=== PATIENT | female | born 1980 | race Caucasian/White ===

== ENCOUNTER → 2020-12-11 15:49 | Outpatient (BNVA) | payer MEDICARE, SELFPAY | PROVIDERS: Family Provider Internal Medicine; PCP Internal Medicine; Visit Provider Internal Medicine | DX: E28.2 Polycystic ovarian syndrome (principal); E78.1 Pure hyperglyceridemia; F70 Mild intellectual disabilities; F41.1 Generalized anxiety disorder; I10 Essential (primary) hypertension | CPT/HCPCS: 80053; 80061; 83036; 83721; 84443 ==

== ENCOUNTER 2021-04-18 21:35 | Inpatient (IN) | payer MEDICARE, MEDICAID, SELFPAY ==
[2021-04-18 21:47] VITALS: PULSE 121; RESP 30; TEMP 36.5; O2SAT 98
--- NOTE | 2021-04-18 22:05 | ECG_ITS ---
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
--- NOTE | 2021-04-18 22:05 | XRR_ITS ---
PROCEDURE INFORMATION: Exam: XR Chest Exam date and time: 04/18/2021 10:05 PM Age: 40 years old Clinical indication: Tachypnea TECHNIQUE: Imaging protocol: XR of the chest. Views: 1 view. COMPARISON: No relevant prior studies available. FINDINGS: Lungs: Unremarkable. No consolidation. Pleural spaces: Unremarkable. No pleural effusion. No pneumothorax. Heart/Mediastinum: Unremarkable. No cardiomegaly. Bones/joints: Unremarkable. XR/XR chest 1V portable [id number] IMPRESSION: No acute disease.
--- NOTE | 2021-04-18 22:07 | ED_ITS ---
Documented by User: JONATHAN Tirado 04/19/21 01:29 HPI - Nausea/Vomiting/Diarrhea General: Chief complaint: Nausea/Vomiting/Diarrhea Stated complaint: weekness Time Seen by Provider: 04/18/21 21:55 History of Present Illness: Patient is a 40-year-old female comes to the ED with nausea/vomiting and weakness. Patient has a past medical history of hypertension and, anxiety and a mild mental handicap. Patient's parents are present in the ED and helping provide history. 2 weeks ago patient had some cold symptoms with cough and congestion that resolved after 5 days. She was having some decreased appetite though for the past 2 weeks has not been eating and drinking as much. Approximately 3 days ago patient started having nausea and vomiting and was unable to keep any food or fluids down. She has gotten weaker over the past couple days and she has been laying in bed mostly she is complained little about some abdominal pain in the central part of her abdomen. She is active and ambulatory at baseline and parents said she is nowhere near her normal activity level. She had an appointment with provider on April 17 And they diagnosed her with gastroenteritis and she was sent home with some Zofran, which has not helped her nausea or vomiting. Denies any recent med changes. Associated nausea: Yes Associated symtoms: Reports nausea; Denies change in vision, chest pain, dysuria, fatigue, headache(s) or palpitations Review of Systems Const: Denies: fever(s), chills or fatigue Eyes: Denies: change in vision or eye discomfort ENMT: Denies: throat pain, odynophagia, nasal discharge or nasal congestion Card: Denies: chest pain, palpitations, edema, swelling of feet/ankles, dyspnea on exertion or orthopnea Resp: Denies: dyspnea, productive cough or non-productive cough GI: Reports: abdominal pain, nausea and vomiting; Denies: diarrhea, constipation or hematochezia : Denies: flank pain, dysuria or hematuria Musc: Denies: neck pain, back pain or extremity swelling Skin/Breast: Denies: rash or new lesions Neuro: Denies: headache(s), numbness in extremities or weakness in extremities PFS ED PFSH: Medical History No pertinent family history Surgical History No pertinent past surgical history Family History Father Cancer Social History Smoking and tobacco status: never smoked Alcohol intake: never History of recent travel: No Physical Exam Const: COMMON NORMALS: alert GENERAL APPEARANCE: cooperative and ill appearing (Very pale) HENMT: COMMON NORMALS: normocephalic HEAD & SCALP: normocephalic MOUTH: moist mucous membranes abnormal Details: parched THROAT: posterior oropharynx normal and uvula midline Eye: GENERAL EYE: appearance normal, both eyes and all related structures Neck/C-Spine: COMMON NORMALS: supple GENERAL: Yes normal visual inspection Resp: COMMON NORMALS: normal respiratory effort, No retractions, No use of accessory muscles and clear to auscultation bilaterally AUSCULTATION: clear to auscultation bilaterally Cardio: COMMON NORMALS: regular rhythm, S1 normal heart sound present, S2 normal heart sound present, No gallops present (Cardio), No clicks present (Cardio), No murmurs present (Cardio) and Peripheral pulses 2+ throughout RATE: tachycardic RHYTHM: regular rhythm HEART SOUNDS: S1 normal heart sound present and S2 normal heart sound present PERIPHERAL PULSES: Peripheral pulses 2+ throughout GI: COMMON NORMALS: Normal to inspection, nondistended, normoactive bowel sounds present, Soft to palpation and no masses PALPATION: Yes Soft to palpation and Yes Tenderness to palpation present (GI) Details: other (Periumbil ical tenderness) : COMMON NORMALS: Yes no CVA tenderness BLADDER/KIDNEY EXAM: Yes no CVA tenderness Back/Pelvis: COMMON NORMALS: no CVA tenderness Extremity: COMMON NORMALS: normal to inspection Neuro: SENSORIUM/ORIENTATION: Yes alert GAIT: Yes Normal gait present Skin: GENERAL SKIN EXAM: dry skin Course ED course: I went down to the CT room while patient was getting loaded onto the table. I told with the certified technician to run the CT of the abdomen without any contrast since her creatinine was severely elevated. Jayson the certified technician understood and said he will run the CT without any contrast. Vital Signs: Vital signs: Vital Signs Temperature 96.0 F L 04/19/21 03:00 Pulse Rate 106 H 04/19/21 06:36 Respiratory Rate 36 H 04/19/21 05:15 Blood Pressure 161/88 04/19/21 05:15 Pulse Oximetry 92 04/19/21 06:36 MDM - Nausea/Vomiting/Diarrhea Medical Decision Making Patient is a 40-year-old female comes to the ED with nausea vomiting and some abdominal pain. Patient has a past medical history of mild mental disability, anxiety and hypertension. She lives at home with her parents and they are present here in the ED and helping provide history. She just started developing the nausea and vomiting within the last 3 days but has not been eating and drinking much over the past 2 weeks. Over the past couple days her weakness has gotten worse and she has been laying in bed a lot. Parents said she is amb ulatory on very functional at the house at baseline. Pulse 115 and respirations 36 but the rest of vitals are stable. Upon exam patient's oral mucous membranes were dry and parched. She is very pale and ill-appearing. Tachycardic and tachypnea. She had some periumbilical tenderness upon exam. White blood cell count of 27, lactic of 5, creatinine of 10. Blood pH of 7.13. Lipase 1070. CT of abdomen pelvis shows pancreatitis. I involved Dr. Ornelas about patient care early due to her acuity. Dr. Ornelas is made aware of patient and her acute status. Dr. Ornelas will be contacting Dr. Ireland the hospitalist patient will be admitted. 2 L of IV fluid were ordered given down here in the ED along with some Zosyn. Lab Data : 04/18/21 21:49 04/19/21 03:00 Radiology Impressions Chest X-Ray 04/18/21 22:05 IMPRESSION: No acute disease. Abdomen/Pelvis CT 04/18/21 23:01 IMPRESSION: 1. Hazy bilateral pulmonary opacities which are consistent with COVID-19. 2. Acute pancreatitis. 3. Small amount of gas in the urinary bladder which may be secondary to recent manipulation or infection. Chest CT 04/19/21 02:25 IMPRESSION: 1. Nonspecific gallbladder distention. No calcified stones. 2. Mild retroperitoneal stranding about the pancreas, correlate with pancreatic enzymes. 3. Bilateral pulmonary infiltrates which may be seen with atypical pneumonia. Head CT 04/19/21 02:25 IMPRESSION: 1. No acute infarct or hemorrhage. 2. No calvarial or skull base fracture. 3. Paranasal sinus mucosal thickening. Laboratory Results WBC 27.0 10^3/uL (4.0-10.0) H 04/18/21 21:49 RBC 4.18 10^6/uL (4.1-5.3) 04/18/21 21:49 Hgb 12.9 g/dL (11.5-15.3) 04/18/21 21:49 Hct 39.6 % (37.0-47.0) 04/18/21 21:49 MCV 94.7 fl (81-99) 04/18/21 21:49 MCH 30.9 pg (28.0-34.0) 04/18/21 21:49 MCHC 32.6 g/dL (30.0-36.0) 04/18/21 21:49 RDW 13.2 % (12.1-15.1) 04/18/21 21:49 Plt Count 531 10^3/cmm (130-400) H 04/18/21 21:49 MPV 11.7 fL (7.4-10.4) H 04/18/21 21:49 Neut % (Auto) 54.3 % 04/18/21 21:49 Lymph % (Auto) 9.5 % 04/18/21 21:49 Young % (Auto) 9.2 % 04/18/21 21:49 Eos % (Auto) 25.7 % 04/18/21 21:49 Baso % (Auto) 0.2 % 04/18/21 21:49 Neut # (Auto) 14.66 10^3/uL (1.8-7.7) H 04/18/21 21:49 Lymph # (Auto) 2.6 10^3/uL (0.8-4.8) 04/18/21 21:49 Young # (Auto) 2.5 10^3/uL (0.2-0.9) H 04/18/21 21:49 Eos # (Auto) 6.9 10^3/uL (0.0-0.8) H 04/18/21 21:49 Baso # (Auto) 0.1 10^3/uL (0.0-0.1) 04/18/21 21:49 Nucleated RBC % (auto) 0 % 04/18/21 21:49 Nucleated RBCs # 0.0 /100WBC 04/18/21 21:49 Specimen Type Arterial 04/18/21 11:42 Sample Site Radial, right 04/18/21 11:42 ABG pH 7.13 (7.35-7.45) L* 04/18/21 11:42 ABG pCO2 16.0 mmHg (35-45) L* 04/18/21 11:42 ABG pO2 116.0 mmHg (80.0-100.0) H 04/18/21 11:42 ABG HCO3 5.3 mmol/L (22-26) L 04/18/21 11:42 ABG O2 Saturation 97.4 04/18/21 11:42 ABG Base Excess -21.9 mmol/L (-2.0-2.0) L 04/18/21 11:42 Dennis Test Pos 04/18/21 11:42 A-a O2 Gradient 1.4 mmHg (5-10) L 04/18/21 11:42 Hematocrit 37.2 % (37-47) 04/18/21 11:42 Hgb O2 Saturation 95.6 % (95-100) 04/18/21 11:42 Carboxyhemoglobin 0.7 %THgb (0.4-20.1) 04/18/21 11:42 Methemoglobin 1.2 % (0.4-1.5) 04/18/21 11:42 Total Hemoglobin 12.1 g/dL (12-16) 04/18/21 11:42 Sodium 140.0 mmol/L (131-143) 04/18/21 11:42 Potassium 5.2 mmol/L (3.5-5.0) H 04/18/21 11:42 Glucose 131.0 mg/dL (70-115) H 04/18/21 11:42 Ionized Calcium 1.0 mmol/L (1.1-1.4) L 04/18/21 11:42 O2 Delivery Device None 04/18/21 11:42 FiO2 21.0 % 04/18/21 11:42 Hospital Nursing Assistant ID [email or web address] 04/18/21 11:42 Sodium 136 mmol/L (136-145) 04/18/21 22:48 Potassium 4.9 mmol/L (3.5-5.1) 04/18/21 22:48 Chloride 87 mmol/L (98-107) L 04/18/21 22:48 Carbon Dioxide 5 mmol/L (22-29) L* 04/18/21 22:48 Anion Gap 48.9 (5-19) H 04/18/21 22:48 BUN 65 mg/dL (6-20) H 04/18/21 22:48 Creatinine 10.0 mg/dL (0.5-0.9) H* 04/18/21 22:48 GFR Calculation 4.3 mL/min (90-130) L 04/18/21 22:48 Glucose 122 mg/dL (65-115) H 04/18/21 22:48 Estimat Average Glucose 134 04/18/21 22:48 Hemoglobin A1c 6.3 % (4.0-6.0) H 04/18/21 22:48 Calculated Osmolality 302 mOsm/kg (285-295) H 04/18/21 22:48 Lactic Acid 5.0 mmol/L (0.5-2.2) H* 04/18/21 21:49 Lactic Acid (Sepsis) 3.5 mmol/L (0.5-2.2) H 04/19/21 00:51 Calcium 7.5 mg/dL (8.5-10.5) L 04/18/21 22:48 Total Bilirubin 1.6 mg/dL (0.15-1.2) H 04/18/21 22:48 AST 23 U/L (0-32) 04/18/21 22:48 ALT 29 U/L (0-33) 04/18/21 22:48 Alkaline Phosphatase 130 IU/L (35-105) H 04/18/21 22:48 Total Protein 6.0 g/dL (6.6-8.7) L 04/18/21 22:48 Albumin 3.2 g/dL (3.5-5.2) L 04/18/21 22:48 Globulin 2.8 g/dL (1.3-4.6) 04/18/21 22:48 Lipase 1070 U/L (13-60) H 04/18/21 22:48 HCG, Qual Negative (Negative) 04/18/21 22:48 Urine Color Yellow (Yellow) 04/18/21 23:19 Urine Appearance Clear (CLEAR) 04/18/21 23:19 Urine pH 5 (5-7) 04/18/21 23:19 Ur Specific [place] 1.020 (1.005-1.030) 04/18/21 23:19 Urine Protein 3+ (Negative) H 04/18/21 23:19 Urine Glucose (UA) 1+ (Normal) H 04/18/21 23:19 Urine Ketones 1+ (Negative) H 04/18/21 23:19 Urine Blood 2+ (Negative) H 04/18/21 23:19 Urine Nitrate Negative (Negative) 04/18/21 23:19 Urine Bilirubin 1+ (Negative) H 04/18/21 23:19 Urine Urobilinogen 1 mg/dL (Negative) H 04/18/21 23:19 Ur Leukocyte Esterase Negative (Negative) 04/18/21 23:19 Urine RBC 5-10 /hpf (0-2) H 04/18/21 23:19 Urine WBC 0-4 /hpf (0-5) H 04/18/21 23:19 Ur Squamous Epith Cells 10-15 /hpf (0-5) H 04/18/21 23:19 Amorphous Sediment 3+ /hpf 04/18/21 23:19 Urine Bacteria 2+ /hpf (NONE) H 04/18/21 23:19 Serum Ketones Positive (Negative) H 04/18/21 22:48 SARS-CoV-2 Ag (Rapid) Negative (Negative) 04/18/21 21:[address] Abd/Pel: Radiologist's impression: [address] [address] [address] Scan Report Signed Patient: Precious Mckeon Unit #: [id number] : 1980 Age/Sex: 40 / F ADM Date: 04/18/21 Loc: ER Room/Bed: Attending Dr: Ordering Provider/Ordering MD: Pollo Brown Date of Service: 04/18/21 Procedure(s): CT abdomen pelvis wo con [id number] Accession Number(s): [id number] Report Number: [id number] PROCEDURE INFORMATION: Exam: CT Abdomen And Pelvis Without Contrast Exam date and time: 04/18/2021 11:01 PM Age: 40 years old Clinical indication: Nausea and vomiting; Patient HX: N/v weakness CR 10.0; Additional info: Periumbilical pain, n/v TECHNIQUE: Imaging protocol: Computed tomography of the abdomen and pelvis without contrast. Radiation optimization: All CT scans at this facility use at least one of these dose optimization techniques: automated exposure control; mA and/or kV adjustment per patient size (includes targeted exams where dose is matched to clinical indication); or iterative reconstruction. COMPARISON: CR (CHEST, ) 04/18/2021 10:19 PM RADIATION DOSE METRICS: Total DLP (mGy-cm): 1214.38 FINDINGS: Lungs: Hazy bilateral pulmonary opacities which are consistent with COVID-19. Liver: Normal. No mass. Gallbladder and bile ducts: No wall thickening, pericholecystic fluid or stones. Pancreas: The pancreas is enlarged and edematous with peripancreatic fat stranding. Spleen: Normal. No splenomegaly. Adrenal glands: Normal. No mass. Kidneys and ureters: Normal. No hydronephrosis. Stomach and bowel: Unremarkable. No obstruction. No mucosal thickening. Appendix: No evidence of appendicitis. Intraperitoneal space: Unremarkable. No free air. No significant fluid collection. Vasculature: Unremarkable. No abdominal aortic aneurysm. Lymph nodes: Unremarkable. No enlarged lymph nodes. Urinary bladder: Small amount of gas in the urinary bladder which may be secondary to recent manipulation or infection. Reproductive: Unremarkable as visualized. Bones/joints: Unremarkable. No acute fracture. Soft tissues: Unremarkable. CT/CT abdomen pelvis wo con [id number] IMPRESSION: 1. Hazy bilateral pulmonary opacities which are consistent with COVID-19. 2. Acute pancreatitis. 3. Small amount of gas in the urinary bladder which may be secondary to recent manipulation or infection. Dictated By: Marty Marcial Signed By: Marty Marcial Signed Date/Time: 04/18/21 2343 DD/ 2301 EKG Data EKG 1: EKG interpretation date: 04/18/21 Interpretation: Sinus tachycardia, 115 bpm, no ST segment elevation or depression seen. Discharge Plan Discharge Patient Disposition: Admitted As Inpatient Admit Provider: Vinod Ireland Clinical Impression: Acute kidney injury, Acute pancreatitis Condition: Stable Coding Level of Care Code ED Student Teaching Coordinator for Chg Fwd Exam Comprehensive Documented by User: Santos Ornelas DO 04/19/21 07:12 HPI - Nausea/Vomiting/Diarrhea General: Chief complaint: Nausea/Vomiting/Diarrhea Stated complaint: weekness Time Seen by Provider: 04/18/21 21:55 PFSH ED PFSH: Medical History No pertinent family history Surgical History (Reviewed 04/19/21 @ :29 by JONATHAN Tirado) No pertinent past surgical history Family History (Reviewed 04/19/21 @ : by JONATHAN Tirado) Father Cancer Social History Smoking and tobacco status: never smoked Alcohol intake: never History of recent travel: No Course Vital Signs: Vital signs: Vital Signs Temperature 96.0 F L 04/19/21 03:00 Pulse Rate 106 H 04/19/21 06:36 Respiratory Rate 36 H 04/19/21 05:15 Blood Pressure 161/88 04/19/21 05:15 Pulse Oximetry 92 04/19/21 06:36 MDM - Nausea/Vomiting/Diarrhea Medical Decision Making Patient is a 40-year-old female comes to the ED with nausea vomiting and some abdominal pain. Patient has a past medical history of mild mental disability, anxiety and hypertension. She lives at home with her parents and they are pre sent here in the ED and helping provide history. She just started developing the nausea and vomiting within the last 3 days but has not been eating and drinking much over the past 2 weeks. Over the past couple days her weakness has gotten worse and she has been laying in bed a lot. Parents said she is ambulatory on very functional at the house at baseline. Pulse 115 and respirations 36 but the rest of vitals are stable. Upon exam patient's oral mucous membranes were dry and parched. She is very pale and ill-appearing. Tachycardic and tachypnea. She had some periumbilical tenderness upon exam. White blood cell count of 27, lactic of 5, creatinine of 10. Blood pH of 7.13. Lipase 1070. CT of abdomen pelvis shows pancreatitis. I involved Dr. Ornelas about patient care early due to her acuity. Dr. Ornelas is made aware of patient and her acute status. Dr. Ornelas will be contacting Dr. Ireland the hospitalist patient will be admitted. 2 L of IV fluid were ordered given down here in the ED along with some Zosyn. This patient was originally seen by Mr. Stephanie PA-C.? I agree with his history, evaluation, and treatment. I have seen the patient as well. I agree with the above. She will require ICU admission. Lab Data : 04/18/21 21:49 04/19/21 03:00 Radiology Impressions Chest X-Ray 04/18/21 22:05 IMPRESSION: No acute disease. Abdomen/Pelvis CT 04/18/21 23:01 IMPRESSION: 1. Hazy bilateral pulmonary opacities which are consistent with COVID-19. 2. Acute pancreatitis. 3. Small amount of gas in the urinary bladder which may be secondary to recent manipulation or infection. Chest CT 04/19/21 02:25 IMPRESSION: 1. Nonspecific gallbladder distention. No calcified stones. 2. Mild retroperitoneal stranding about the pancreas, correlate with pancreatic enzymes. 3. Bilateral pulmonary infiltrates which may be seen with atypical pneumonia. Head CT 04/19/21 02:25 IMPRESSION: 1. No acute infarct or hemorrhage. 2. No calvarial or skull base fracture. 3. Paranasal sinus mucosal thickening. Laboratory Results WBC 27.0 10^3/uL (4.0-10.0) H 04/18/21 21:49 RBC 4.18 10^6/uL (4.1-5.3) 04/18/21 21:49 Hgb 12.9 g/dL (11.5-15.3) 04/18/21 21:49 Hct 39.6 % (37.0-47.0) 04/18/21 21:49 MCV 94.7 fl (81-99) 04/18/21 21:49 MCH 30.9 pg (28.0-34.0) 04/18/21 21:49 MCHC 32.6 g/dL (30.0-36.0) 04/18/21 21:49 RDW 13.2 % (12.1-15.1) 04/18/21 21:49 Plt Count 531 10^3/cmm (130-400) H 04/18/21 21:49 MPV 11.7 fL (7.4-10.4) H 04/18/21 21:49 Neut % (Auto) 54.3 % 04/18/21 21:49 Lymph % (Auto) 9.5 % 04/18/21 21:49 Young % (Auto) 9.2 % 04/18/21 21:49 Eos % (Auto) 25.7 % 04/18/21 21:49 Baso % (Auto) 0.2 % 04/18/21 21:49 Neut # (Auto) 14.66 10^3/uL (1.8-7.7) H 04/18/21 21:49 Lymph # (Auto) 2.6 10^3/uL (0.8-4.8) 04/18/21 21:49 Young # (Auto) 2.5 10^3/uL (0.2-0.9) H 04/18/21 21:49 Eos # (Auto) 6.9 10^3/uL (0.0-0.8) H 04/18/21 21:49 Baso # (Auto) 0.1 10^3/uL (0.0-0.1) 04/18/21 21:49 Nucleated RBC % (auto) 0 % 04/18/21 21:49 Nucleated RBCs # 0.0 /100WBC 04/18/21 21:49 Specimen Type Arterial 04/18/21 11:42 Sample Site Radial, right 04/18/21 11:42 ABG pH 7.13 (7.35-7.45) L* 04/18/21 11:42 ABG pCO2 16.0 mmHg (35-45) L* 04/18/21 11:42 ABG pO2 116.0 mmHg (80.0-100.0) H 04/18/21 11:42 ABG HCO3 5.3 mmol/L (22-26) L 04/18/21 11:42 ABG O2 Saturation 97.4 04/18/21 11:42 ABG Base Excess -21.9 mmol/L (-2.0-2.0) L 04/18/21 11:42 Dennis Test Pos 04/18/21 11:42 A-a O2 Gradient 1.4 mmHg (5-10) L 04/18/21 11:42 Hematocrit 37.2 % (37-47) 04/18/21 11:42 Hgb O2 Saturation 95.6 % (95-100) 04/18/21 11:42 Carboxyhemoglobin 0.7 %THgb (0.4-20.1) 04/18/21 11:42 Methemoglobin 1.2 % (0.4-1.5) 04/18/21 11:42 Total Hemoglobin 12.1 g/dL (12-16) 04/18/21 11:42 Sodium 140.0 mmol/L (131-143) 04/18/21 11:42 Potassium 5.2 mmol/L (3.5-5.0) H 04/18/21 11:42 Glucose 131.0 mg/dL (70-115) H 04/18/21 11:42 Ionized Calcium 1.0 mmol/L (1.1-1.4) L 04/18/21 11:42 O2 Delivery Device None 04/18/21 11:42 FiO2 21.0 % 04/18/21 11:42 Hospital Nursing Assistant ID Harje5 04/18/21 11:42 Sodium 136 mmol/L (136-145) 04/18/21 22:48 Potassium 4.9 mmol/L (3.5-5.1) 04/18/21 22:48 Chloride 87 mmol/L (98-107) L 04/18/21 22:48 Carbon Dioxide 5 mmol/L (22-29) L* 04/18/21 22:48 Anion Gap 48.9 (5-19) H 04/18/21 22:48 BUN 65 mg/dL (6-20) H 04/18/21 22:48 Creatinine 10.0 mg/dL (0.5-0.9) H* 04/18/21 22:48 GFR Calculation 4.3 mL/min (90-130) L 04/18/21 22:48 Glucose 122 mg/dL (65-115) H 04/18/21 22:48 Estimat Average Glucose 134 04/18/21 22:48 Hemoglobin A1c 6.3 % (4.0-6.0) H 04/18/21 22:48 Calculated Osmolality 302 mOsm/kg (285-295) H 04/18/21 22:48 Lactic Acid 5.0 mmol/L (0.5-2.2) H* 04/18/21 21:49 Lactic Acid (Sepsis) 3.5 mmol/L (0.5-2.2) H 04/19/21 00:51 Calcium 7.5 mg/dL (8.5-10.5) L 04/18/21 22:48 Total Bilirubin 1.6 mg/dL (0.15-1.2) H 04/18/21 22:48 AST 23 U/L (0-32) 04/18/21 22:48 ALT 29 U/L (0-33) 04/18/21 22:48 Alkaline Phosphatase 130 IU/L (35-105) H 04/18/21 22:48 Total Protein 6.0 g/dL (6.6-8.7) L 04/18/21 22:48 Albumin 3.2 g/dL (3.5-5.2) L 04/18/21 22:48 Globulin 2.8 g/dL (1.3-4.6) 04/18/21 22:48 Lipase 1070 U/L (13-60) H 04/18/21 22:48 HCG, Qual Negative (Negative) 04/18/21 22:48 Urine Color Yellow (Yellow) 04/18/21 23:19 Urine Appearance Clear (CLEAR) 04/18/21 23:19 Urine pH 5 (5-7) 04/18/21 23:19 Ur Specific [place] 1.020 (1.005-1.030) 04/18/21 23:19 Urine Protein 3+ (Negative) H 04/18/21 23:19 Urine Glucose (UA) 1+ (Normal) H 04/18/21 23:19 Urine Ketones 1+ (Negative) H 04/18/21 23:19 Urine Blood 2+ (Negative) H 04/18/21 23:19 Urine Nitrate Negative (Negative) 04/18/21 23:19 Urine Bilirubin 1+ (Negative) H 04/18/21 23:19 Urine Urobilinogen 1 mg/dL (Negative) H 04/18/21 23:19 Ur Leukocyte Esterase Negative (Negative) 04/18/21 23:19 Urine RBC 5-10 /hpf (0-2) H 04/18/21 23:19 Urine WBC 0-4 /hpf (0-5) H 04/18/21 23:19 Ur Squamous Epith Cells 10-15 /hpf (0-5) H 04/18/21 23:19 Amorphous Sediment 3+ /hpf 04/18/21 23:19 Urine Bacteria 2+ /hpf (NONE) H 04/18/21 23:19 Serum Ketones Positive (Negative) H 04/18/21 22:48 SARS-CoV-2 Ag (Rapid) Negative (Negative) 04/18/21 21:49 Critical Care Time Critical Care Time: Critical Care Time: Yes Total Critical Care Time: 40 Attestation: This case had a high probability of a clinically significant, sudden, or life threatening deterioration of this patient's condition which required my full and direct attention, intervention and personal management. This is independent of any procedures performed Discharge Plan Discharge Patient Disposition: Admitted As Inpatient Admit Provider: Vinod Ireland Clinical Impression: Acute kidney injury, Acute pancreatitis Condition: Stable Coding Level of Care Code ED Student Teaching Coordinator for Chg Fwd Exam Comprehensive
[2021-04-18 22:13] VITALS: BP 124/82; PULSE 115; RESP 36; O2SAT 99
[2021-04-18 22:17] LABS: Basophils # 0.1 10^3/uL (0.0-0.1); Basophils % 0.2 %; Eosinophils # 6.9 10^3/uL (0.0-0.8); Eosinophils % 25.7 %; Hematocrit 39.6 % (37.0-47.0); Hemoglobin 12.9 g/dL (11.5-15.3); Lymphocytes # 2.6 10^3/uL (0.8-4.8); Lymphocytes % 9.5 %; Mean Corpuscular HGB Conc 32.6 g/dL (30.0-36.0); Mean Corpuscular Hemoglobin 30.9 pg (28.0-34.0); Mean Corpuscular Volume 94.7 fl (81-99); Mean Platelet Volume 11.7 fL (7.4-10.4); Monocytes # 2.5 10^3/uL (0.2-0.9); Monocytes % 9.2 %; Neutrophils # 14.66 10^3/uL (1.8-7.7); Neutrophils % 54.3 %; Nucleated Red Blood Cells % 0 %; Platelet Count 531 10^3/cmm (130-400); Red Blood Count 4.18 10^6/uL (4.1-5.3); Red Cell Distribution Width 13.2 % (12.1-15.1)
[2021-04-18] MEDS: sodium chloride 0.9% 1,000 ML 999 ML IV (22:19)
[2021-04-18] MEDS: ondansetron 2 mg/ML SDV 2 mL 4 MG IVP (22:19)
--- NOTE | 2021-04-18 23:01 | CTR_ITS ---
PROCEDURE INFORMATION: Exam: CT Abdomen And Pelvis Without Contrast Exam date and time: 04/18/2021 11:01 PM Age: 40 years old Clinical indication: Nausea and vomiting; Patient HX: N/v weakness CR 10.0; Additional info: Periumbilical pain, n/v TECHNIQUE: Imaging protocol: Computed tomography of the abdomen and pelvis without contrast. Radiation optimization: All CT scans at this facility use at least one of these dose optimization techniques: automated exposure control; mA and/or kV adjustment per patient size (includes targeted exams where dose is matched to clinical indication); or iterative reconstruction. COMPARISON: CR (CHEST, ) 04/18/2021 10:19 PM RADIATION DOSE METRICS: Total DLP (mGy-cm): 1214.38 FINDINGS: Lungs: Hazy bilateral pulmonary opacities which are consistent with COVID-19. Liver: Normal. No mass. Gallbladder and bile ducts: No wall thickening, pericholecystic fluid or stones. Pancreas: The pancreas is enlarged and edematous with peripancreatic fat stranding. Spleen: Normal. No splenomegaly. Adrenal glands: Normal. No mass. Kidneys and ureters: Normal. No hydronephrosis. Stomach and bowel: Unremarkable. No obstruction. No mucosal thickening. Appendix: No evidence of appendicitis. Intraperitoneal space: Unremarkable. No free air. No significant fluid collection. Vasculature: Unremarkable. No abdominal aortic aneurysm. Lymph nodes: Unremarkable. No enlarged lymph nodes. Urinary bladder: Small amount of gas in the urinary bladder which may be secondary to recent manipulation or infection. Reproductive: Unremarkable as visualized. Bones/joints: Unremarkable. No acute fracture. Soft tissues: Unremarkable. CT/CT abdomen pelvis wo con [id number] IMPRESSION: 1. Hazy bilateral pulmonary opacities which are consistent with COVID-19. 2. Acute pancreatitis. 3. Small amount of gas in the urinary bladder which may be secondary to recent manipulation or infection.
[2021-04-18 23:11] LABS: HCG, Serum Qual Negative (Negative)
[2021-04-18 23:11] LABS: SARS Covid-2 Antigen Negative (Negative)
[2021-04-18 23:12] LABS: Alanine Aminotransferase 29 U/L (0-33); Albumin Level 3.2 g/dL (3.5-5.2); Alkaline Phosphatase 130 IU/L (35-105); Anion Gap 48.9 (5-19); Aspartate Amino Transferase 23 U/L (0-32); Blood Urea Nitrogen 65 mg/dL (6-20); Calcium 7.5 mg/dL (8.5-10.5); Chloride 87 mmol/L (98-107); Globulin 2.8 g/dL (1.3-4.6); Glomerular Filtration Rate 4.3 mL/min (90-130); Glucose 122 mg/dL (65-115); Osmolality Calculated 302 mOsm/kg (285-295); Potassium 4.9 mmol/L (3.5-5.1); Sodium 136 mmol/L (136-145); Total Bilirubin 1.6 mg/dL (0.15-1.2)
[2021-04-18 23:21] LABS: Lipase 1070 U/L (13-60)
[2021-04-18 23:22] LABS: Carbon Dioxide 5 mmol/L (22-29)
[2021-04-18 23:32] VITALS: BP 124/82
[2021-04-18 23:50] LABS: Bilirubin Urine 1+ (Negative); Blood Urine 2+ (Negative); Glucose Urine UA 1+ (Normal); Ketones Urine 1+ (Negative); Leukocyte Esterase Urine Negative (Negative); Nitrate Urine Negative (Negative); Protein Urine 3+ (Negative); Urine Appearance Clear (CLEAR); Urine Color Yellow (Yellow); Urobilinogen Urine 1 mg/dL (Negative); pH Urine 5 (5-7)
[2021-04-18 23:51] LABS: Alveolar-Arterial Oxygen Gradi 1.4 mmHg (5-10); Arterial Blood Gas Hematocrit 37.2 % (37-47); Base Excess ABG -21.9 mmol/L (-2.0-2.0); Blood Gas Allen Test Pos; Blood Gas Sample Type Arterial; Carboxyhemoglobin 0.7 %THgb (0.4-20.1); HCO3 ABG 5.3 mmol/L (22-26); HGB O2 Sat 95.6 % (95-100); Methemoglobin 1.2 % (0.4-1.5); Oxygen Saturation ABG 97.4; Potassium Level - ABG 5.2 mmol/L (3.5-5.0); Total Hemoglobin 12.1 g/dL (12-16)
[2021-04-18 23:51] LABS: Add Urine Microscopic? YES
[2021-04-18 23:56] LABS: Blood Gas Sample Site Radial, right
[2021-04-18 23:59] LABS: ABG PH Result 7.13 (7.35-7.45)
[2021-04-19] VITALS (95 sets, daily range): BP systolic 98–211; BP diastolic 64–95; PULSE 101–116; RESP 18–47; TEMP 35.6–37.1; O2SAT 89–100; BMI 3779.3
[2021-04-19] LABS: Reflex Lactate Order REFLEX LACTIC ORDERD
[2021-04-19 00:03] LABS: WBC Urine 0-4 /hpf (0-5)
[2021-04-19 00:04] LABS: Add Urine Culture? No; Amorphous Sediment Urine 3+ /hpf; Bacteria Urine 2+ /hpf
[2021-04-19 00:33] LABS: Ketone (Acetest) Serum Positive (Negative)
[2021-04-19 00:49] LABS: Estmated Average Glucose 134; Hemoglobin A1C 6.3 % (4.0-6.0)
[2021-04-19 01:14] LABS: Lactic Acid level (Lactate) 3.5 mmol/L (0.5-2.2)
--- NOTE | 2021-04-19 02:07 | P.HP_ITS ---
Providers/Chief Complaint Admitting Physician: Vinod Ireland MD Primary Care Provider: Colten Glaser MD Chief Complaint: weekness History of Present Illness Precious Mckeon is a 40 year old female with a past medical history of polycystic ovarian syndrome, hypertriglyceridemia, hypertension, depression, history of cognitive impairment who presents to [facility] due to nausea, vomiting, abdominal pain, increased confusion. Currently patient is alert to person, to place, not to time, most of the history was obtained by her family at bedside. Her mom tells me that roughly 2 weeks ago she had a head cold and was not feeling well, no history of COVID-19 exposure, no history of COVID-19 vaccination, no history of flu vaccination. Since then she has had some degree of a poor appetite, no complaints of shortness of breath, no other significant complaints. She presented to urgent care on the , due to worsening nausea and vomiting, myalgias, and inability to keep down liquids was diagnosed with gastroenteritis, was given Zofran and sent home. Work-up in the emergency room shows increased anion gap metabolic acidosis with respiratory alkalosis, no history of type 2 diabetes mellitus, A1c 6.3, blood sugars in the 120s, ketones are positive, no history of toxic ingestion of ethylene glycol or methanol, she also has evidence of pancreatitis, elevated lipase, does have hyper triglyceridemia, does have right upper quadrant pain, gallstones or cholecystitis on imaging, rapid Covid was negative. Patient reports abdominal pain, particularly in the epigastric region, right upper quadrant. Denies any shortness of breath. Denies any fevers. Denies any chest pain. Denies any diarrhea. No lightheadedness. No dizziness. No joint pains. No muscle aches. No toxic ingestions Review of Systems Const: Denies: fever(s), chills, fatigue or malaise Eyes: Denies: change in vision or blurry vision ENMT: Denies: nasal congestion Resp: Denies: dyspnea, productive cough, non-productive cough or wheezing GI: Reports: abdominal pain, nausea and vomiting; Denies: hematemesis, diarrhea, constipation, hematochezia or melena : Denies: flank pain, dysuria or urinary frequency Musc: Denies: neck pain or back pain Skin/Breast: Denies: rash Neuro: Denies: headache(s), dizziness or vertigo Endo: Denies: polyuria or polydipsia Medications/Allergies Home Medications Medication Instructions Recorded Confirmed Last Taken Type norgestimate-ethinyl estradiol 1 tab PO DAILY #84 tab 01/14/21 04/17/21 Unknown Rx 0.18 mg/0.215mg/0.25mg-35 mcg(28)tablet (Tri-Linyah) metformin 1,000 mg tablet 1,000 mg PO BID #180 tab 01/29/21 04/17/21 Unknown Rx duloxetine 60 mg capsule,delayed 60 mg PO DAILY #90 cap 01/30/21 04/17/21 Unknown Rx release fenofibrate nanocrystallized 145 145 mg PO DAILY #90 tab 01/30/21 04/17/21 Unknown Rx mg tablet metoprolol succinate 50 mg 50 mg PO DAILY #90 tab 01/30/21 04/17/21 Unknown Rx tablet,extended release 24 hr (Toprol XL) spironolactone 50 mg tablet 50 mg PO BID #180 tab 01/30/21 04/17/21 Unknown Rx hydrochlorothiazide 25 mg tablet 25 mg PO DAILY #90 tab 02/26/21 04/17/21 Unknown Rx ondansetron 4 mg disintegrating 4 mg PO Q8H PRN #20 tab 04/17/21 04/17/21 Unkno wn Rx tablet Allergies Allergy/AdvReac Type Severity Reaction Status Date / Time No Known Allergies Allergy Verified 04/18/21 21:50 PFSH Acute PFSH: Medical History No pertinent family history Surgical History No pertinent past surgical history Family History Father Cancer Social History Smoking and tobacco status: never smoked Alcohol intake: never History of recent travel: No Vitals/I&O/Wt Last Vital Signs Temp 97.7 F 04/18/21 21:47 Pulse 104 H 04/19/21 01:00 Resp 39 H 04/19/21 01:00 BP 112/81 04/19/21 01:00 Pulse Ox 100 04/19/21 01:00 Physical Exam Const: COMMON NORMALS: no acute distress and alert GENERAL APPEARANCE: cooperative, well kempt and well developed HENMT: COMMON NORMALS: normocephalic and Normal external nose present HEAD & SCALP: normocephalic FACE & SINUS: normal facial exam NOSE: Normal external nose present MOUTH: Normal oral and palatal mucosa present Eye: COMMON NORMALS: Equal, round and reactive pupils present, EOMs intact bilaterally, conjunctivae normal and no scleral icterus CONJUNCTIVA: Yes conjunctivae normal PUPIL: Yes Equal, round and reactive pupils present Neck/C-Spine: COMMON NORMALS: full ROM, no lymphadenopathy, no meningeal signs, no JVD, Thyroid normal and No carotid bruits THYROID: Thyroid normal Lymph: LYMPHATIC: no lymphadenopathy noted Chest: COMMONS NORMALS: normal inspection of the chest Resp: COMMON NORMALS: normal respiratory effort, No retractions, No use of accessory muscles and clear to auscultation bilaterally AUSCULTATION: clear to auscultation bilaterally Cardio: COMMON NORMALS: no JVD, regular rate, regular rhythm, S1 normal heart sound present, S2 normal heart sound present, No murmurs present (Cardio) and Peripheral pulses 2+ throughout RATE: regular rate RHYTHM: regular rhythm HEART SOUNDS: S1 normal heart sound present and S2 normal heart sound present PERIPHERAL PULSES: Peripheral pulses 2+ throughout GI: INSPECTION: Yes abdominal distension AUSCULTATION: Yes Hypoactive bowel sounds present PALPATION: Yes Tenderness to palpation present (GI) (Epigastric region) Details: RUQ, No Guarding due to palpation present (GI) and No Rigid due to palpation PERCUSSION: tympanic to percussion : COMMON NORMALS: Yes no CVA tenderness BLADDER/KIDNEY EXAM: Yes no CVA tenderness Back/Pelvis: COMMON NORMALS: no CVA tenderness Extremity: COMMON NORMALS: normal to inspection, full ROM, capillary refill normal, no calf tenderness and no pedal edema Neuro: COMMON NORMALS: CN's II-XII intact bilaterally, moves all extremities, no focal motor deficits and no sensory deficits noted MENINGEAL SIGNS: Yes no meningeal signs Psych: COMMON NORMALS: cooperative and speech normal APPEARANCE: Yes well kempt SPEECH: Yes normal speech Skin: COMMON NORMALS: turgor normal and no jaundice GENERAL SKIN EXAM: turgor normal Urinary Catheter Management: Carroll: Cath Placed During This Visit: yes Urinary Catheter Date of Insertion: 04/19/21 Urinary Catheter Time of Insertion: 01:00 Data : 04/18/21 21:49 04/18/21 22:48 Micro: Microbiology 04/18/21 21:49 Blood Culture - Preliminary Blood SPECIMEN COLLECTED 04/18/21 22:07 Blood Culture - Preliminary Blood SPECIMEN COLLECTED A&P Assessment and plan (1) Acute kidney injury: Status: Acute (2) Acute pancreatitis: Status: Acute (3) Essential hypertension: Status: Acute (4) Hypertriglyceridemia: Status: Acute (5) PCOS (polycystic ovarian syndrome): Status: Acute (6) Lactic acidosis: Status: Acute (7) Pneumonia: Status: Acute (8) Acute encephalopathy: Status: Acute (9) Increased anion gap metabolic acidosis: Status: Acute (10) Respiratory alkalosis: Status: Acute (11) Leukocytosis: Status: Acute Plan Acute encephalopathy -Etiology unclear -Likely from underlying metabolic acidosis, respiratory alkalosis, possible pne umonia -CT head -Full code -Heparin for DVT prophylaxis Increased anion gap metabolic acidosis -Anion gap 40.9, pH 7.19, bicarb 5, blood sugar 122, A1c 6.3, creatinine 10 -Possible diabetic ketoacidosis? Does have clue small respirations on exam -We will start insulin drip, n.p.o., blood sugars hourly, BMPs every 4 hours, mag Yulaina every 4 hours, D5 normal saline with 20 KCl at 125 cc an hour -We will give an amp of bicarb, serum potassium 4.9 -No history of toxic ingestions, will do salicylate, Tylenol, methanol, ethylene glycol levels Acute renal failure -Associate with nausea, vomiting -Associate with dehydration -Urine studies pending -On IV fluids as above -Consult nephrology service Lactic acidosis -Possibly secondary to dehydration -However cannot rule out infectious etiology, Acute pancreatitis -Does have hypertriglyceridemia, will recheck triglyceride levels -Elevated lipase, CT evidence of pancreatitis -IV fluids as above -N.p.o. -Right upper quadrant ultrasound to evaluate for gallstones given elevated bili, alk phos -Serum alcohol level CT of the abdomen shows groundglass opacities in the lungs -Possible pneumonia -Sputum cultures, urine bacterial antigen, blood cultures, MRSA nares -We will order vancomycin, Zosyn -Covid PCR ordered, rapid flu ordered -Pro-Adalberto, CRP -Dedicated CT of the chest Neutrophilic leukocytosis -Signs of pancreatitis, DKA, possible pneumonia -CT of the chest pending, right upper quadrant ultrasound pending Attestations Medical Necessity Statement*: Patient requires hospitalization due to increased anion gap metabolic acidosis, pancreatitis, leukocytosis, lactic acidosis requiring hospital admission, greater than 2 midnights Critical Care Time: 55 Coding Level of Care Code Acute Underwear Trimmer for Farhadg Fwd History Comprehensive Medical Decision Making High Complexity Diagnoses Acute kidney injury N17.9 Acute pancreatitis K85.90 Essential hypertension I10 Hypertriglyceridemia E78.1 PCOS (polycystic ovarian syndrome) E28.2 Lactic acidosis E87.2 Pneumonia J18.9 Acute encephalopathy G93.40 Increased anion gap metabolic acidosis E87.2 Respiratory alkalosis E87.3 Leukocytosis D72.829 Time Spent (min) 55
--- NOTE | 2021-04-19 02:25 | CTR_ITS ---
PROCEDURE INFORMATION: Exam: CT Chest Without Contrast; Diagnostic Exam date and time: 04/19/2021 2:25 AM Age: 40 years old Clinical indication: Dyspnea; Additional info: Lung infiltrate' TECHNIQUE: Imaging protocol: Diagnostic computed tomography of the chest without contrast. Radiation optimization: All CT scans at this facility use at least one of these dose optimization techniques: automated exposure control; mA and/or kV adjustment per patient size (includes targeted exams where dose is matched to clinical indication); or iterative reconstruction. COMPARISON: CR (CHEST, ) 04/18/2021 10:19 PM RADIATION DOSE METRICS: Total DLP (mGy-cm): 898.88 FINDINGS: Lungs: Bilateral pulmonary infiltrates which may be seen with atypical pneumonia. Pleural spaces: Unremarkable. No pneumothorax. No pleural effusion. Heart: No cardiomegaly. No pericardial effusion. Aorta: No aortic aneurysm. Lymph nodes: Unremarkable. No enlarged lymph nodes. Gallbladder and bile ducts: Nonspecific gallbladder distention. No calcified stones. Pancreas: Mild retroperitoneal stranding about the pancreas, correlate with pancreatic enzymes. Bones/joints: Unremarkable. No acute fracture. Soft tissues: Unremarkable. CT/CT chest wo con [id number] IMPRESSION: 1. Nonspecific gallbladder distention. No calcified stones. 2. Mild retroperitoneal stranding about the pancreas, correlate with pancreatic enzymes. 3. Bilateral pulmonary infiltrates which may be seen with atypical pneumonia.
--- NOTE | 2021-04-19 02:25 | USR_ITS ---
PROCEDURE INFORMATION: Exam: US Abdomen Complete Exam date and time: 04/19/2021 2:25 AM Age: 40 years old Clinical indication: Pain and abnormal findings; Abnormal lab test; Abnormal kidney function lab tests; Abdominal pain; Additional info: Ruq pain, renal failure, include kidneys TECHNIQUE: Imaging protocol: Real-time ultrasound of the abdomen with image documentation. COMPARISON: CT abdomen pelvis wo con [id number] 04/18/2021 11:31 PM FINDINGS: Liver: The liver parenchyma is heterogeneous, consistent with fatty infiltration. Focal hypoechoic area in the liver near the gallbladder fossa measuring 3.3 cm in maximum dimension. This is suspected to represent focal fatty sparing. Gallbladder: There is a 2.7 cm gallstone in the gallbladder. No sludge, gallbladder wall thickening, or pericholecystic fluid identified. Sonographic Paris sign could not be assessed well. Common bile duct: The common bile duct is within normal limits for caliber at 0.2 cm. No common bile duct stone identified. Pancreas: Limited visualization of the pancreas due to bowel gas. Visualized portion is unremarkable. Right kidney: The right kidney measures 11.6 cm in length and is unremarkable. No hydronephrosis, calculi, or masses identified involving the right kidney. Left kidney: The left kidney measures 11.7 cm in length and is unremarkable. No hydronephrosis, calculi, or masses identified involving the left kidney. Spleen: Visualized portions of the spleen are unremarkable. Aorta: Visualized portions of the aorta are unremarkable. Inferior vena cava: Visualized portions of the inferior vena cava are unremarkable. Other findings: Small right pleural effusion. US/US abdomen complete* [id number] IMPRESSION: 1. Cholelithiasis.
--- NOTE | 2021-04-19 02:25 | CTR_ITS ---
PROCEDURE INFORMATION: Exam: CT Head Without Contrast Exam date and time: 04/19/2021 2:25 AM Age: 40 years old Clinical indication: Altered mental status/memory loss; Additional info: AMS TECHNIQUE: Imaging protocol: Computed tomography of the head without contrast. Radiation optimization: All CT scans at this facility use at least one of these dose optimization techniques: automated exposure control; mA and/or kV adjustment per patient size (includes targeted exams where dose is matched to clinical indication); or iterative reconstruction. COMPARISON: No relevant prior studies available. RADIATION DOSE METRICS: Total DLP (mGy-cm): 655.18 FINDINGS: Brain: No acute infarct or hemorrhage. Cerebral ventricles: No ventriculomegaly. Paranasal sinuses: There is mucosal thickening in the maxillary sinuses, right sphenoid sinus and ethmoid air cells. Mastoid air cells: Visualized mastoid air cells are clear. Bones/joints: No calvarial or skull base fracture. Soft tissues: Unremarkable. CT/CT head wo con* [id number] IMPRESSION: 1. No acute infarct or hemorrhage. 2. No calvarial or skull base fracture. 3. Paranasal sinus mucosal thickening.
--- NOTE | 2021-04-19 02:55 | PC.NURSE ---
TRANSFER FROM ER Received patient from ED about 0255. Patient breathing approximately 40 times per minute. Patient alert and oriented x 4, but very lethargic. Sinus tachycardia when put on monitors. Patients temperature 96.0 and cool to the touch. Warm blankets placed on patient and patient warmed back up.
[2021-04-19] MEDS: insulin regular-human 250 UNIT in sodium chloride 0.9% 250 ML IV (03:00)
[2021-04-19 03:08] LABS: Glucose Point of Care 140 mg/dL (70-110)
--- NOTE | 2021-04-19 03:59 | ECG_ITS ---
[facility] Test Date: 2021-04-19 Pat Name: Precious Mckeon Department: Room: ICU06 Gender: Female Family Consumer Scientist: : 1980 Requested By: Vinod Ireland Order Number: [id number] Reading MD: SUNDAY LOVE Measurements Intervals [place] Rate: 108 P: 58 [place]: 152 QRS: 62 QRSD: 75 T: 49 QT: 346 QTc: 464 Interpretive Statements SINUS TACHYCARDIA NONSPECIFIC ST & T-WAVE ABNORMALITY ABNORMAL RHYTHM ECG Compared to ECG 04/18/2021 22:43:37 No significant changes Electronically Signed On 04-19-2021 19:19:36 AUDIT CONTROL CLERK by SUNDAY LOVE [email or web address]
[2021-04-19 04:08] LABS: INR 1.28 (0.8-1.2)
[2021-04-19 04:09] LABS: Partial Thromboplastin Time 26.4 SECONDS (23.9-36.7); Troponin(5th) Baseline 30 ng/L (0-10)
[2021-04-19] MEDS: ondansetron 2 mg/ML SDV 2 mL 4 MG IVP (04:13)
[2021-04-19] MEDS: D5-NS 0.45% + KCL 20 mEq 20 MEQ/1,000 ML BAG 125 MEQ IV (04:14)
[2021-04-19 04:15] LABS: Fibrinogen 310 mg/dL (174-498)
[2021-04-19] MEDS: heparin 5,000 unit/mL INJ 1 mL 5000 UNIT SUBCUT ×2 (04:15→15:15)
[2021-04-19] MEDS: sodium bicarbonate 8.4% 1 mEq/mL 50mL Syr 50 MEQ IVP (04:15)
[2021-04-19] MEDS: famotidine 20 mg/2 mL INJ IVP ×2 (04:15→15:15)
[2021-04-19 04:16] LABS: D Dimer 2.75 ug/mIFEU (0-0.59)
[2021-04-19 04:18] LABS: HIV 1 & 2 Antibody Non-Reactive (Non-Reactiv); HIV 1 & 2 Antigen Non-Reactive (Non-Reactiv); Procalcitonin 0.31 ng/mL (0-0.5); Thyroid Stimulating Hormone 1.02 uIU/mL (0.27-4.20)
[2021-04-19 04:23] LABS: Hepatitis A Antibody IgM Non-Reactive (Nonreactive); Hepatitis B Core IgM Non-Reactive (Nonreactive); Hepatitis B Surface Antigen Non-Reactive (Nonreactive); Hepatitis C Virus Antibody Non-Reactive (Nonreactive)
[2021-04-19 04:30] LABS: Anion Gap 41.6 (5-19); Blood Urea Nitrogen 61 mg/dL (6-20); C Reactive Protein 6.3 mg/L (0.0-4.9); Calcium 6.2 mg/dL (8.5-10.5); Chloride 94 mmol/L (98-107); Chol HDL Ratio 26.83 mg/dL (0.0-4.40); Cholesterol 322 mg/dL (0-200); Creatine Phosphokinase 79 U/L (26-192); Glomerular Filtration Rate 4.4 mL/min (90-130); Glucose 131 mg/dL (65-115); HDL Cholesterol 12 mg/dL (60-100); Magnesium 2.1 mg/dL (1.7-2.3); Osmolality Calculated 299 mOsm/kg (285-295); Potassium 5.6 mmol/L (3.5-5.1); Sodium 135 mmol/L (136-145)
[2021-04-19] MEDS: vancomycin 1,000 MG in sodium chloride 0.9% 250 ML 250 MG IV (04:36)
[2021-04-19 04:47] LABS: Glucose Point of Care 134 mg/dL (70-110)
[2021-04-19 04:49] LABS: Acetaminophen < 5.0 ug/mL (10-30); Alcohol Level < 10 mg/dL (0-10); Phosphorus 7.9 mg/dL (2.5-4.5); Salicylate < 0.3 mg/dL (3-10); Triglycerides 1058 mg/dL (0-150)
[2021-04-19 04:50] LABS: Carbon Dioxide 5 mmol/L (22-29)
[2021-04-19 05:02] LABS: Gamma Glutamyl Transferase 108 U/L (5-36); LDL Cholesterol Direct 53 mg/dL (0-100)
[2021-04-19 05:50] LABS: Glucose Point of Care 130 mg/dL (70-110)
[2021-04-19 05:59] LABS: Arterial Blood Gas Hematocrit 34.4 % (37-47); Base Excess ABG -21.7 mmol/L (-2.0-2.0); Blood Gas Allen Test Pos; Blood Gas Sample Site Radial, right; Blood Gas Sample Type Arterial; HCO3 ABG 5.6 mmol/L (22-26); PO2 ABG 69.4 mmHg (80.0-100.0)
[2021-04-19 06:01] LABS: ABG PCO2 17.1 mmHg (35-45); ABG PH Result 7.12 (7.35-7.45)
--- NOTE | 2021-04-19 06:13 | PC.NURSE ---
Dr. Ireland to nurses station to review lab work. orders for bicarb drip to be initiated. Awaiting orders at this time.
[2021-04-19 06:25] LABS: Influenza A by IFA Negative (Negative); Influenza B by IFA Negative (Negative)
[2021-04-19 06:33] LABS: Troponin 5 2HR 28.09 ng/L (0-10)
[2021-04-19 06:38] LABS: Glucose Point of Care 132 mg/dL (70-110)
[2021-04-19 06:49] LABS: Troponin 5 2HR Delta -1.91 ABS# (0-10)
[2021-04-19] MEDS: sodium bicarbonate 150 MEQ in dextrose 5% 1,000 ML 125 MEQ IV ×2 (06:52→16:34)
[2021-04-19 07:20] LABS: Potassium, Radom Urine 27 mmol/L; Urine Creatinine 139 mg/dL (28-217); Urine Random Chloride 50 mmol/L; Urine Random Sodium 57 mmol/L
[2021-04-19 07:24] LABS: Glucose Point of Care 119 mg/dL (70-110)
[2021-04-19 07:44] LABS: Adenovirus Not Detected (NOT DETECT); Chlamydia Pneumoniae Not Detected (NOT DETECT); Coronavirus 229E,HKU1,NL63,OC4 Not Detected (NOT DETECT); Human Metapneumovirus Not Detected (NOT DETECT); Human Rhinovirus/Enterovirus Not Detected (NOT DETECT); Influenza A Not Detected (NOT DETECT); Influenza A H1 Not Detected (NOT DETECT); Influenza A H1-2009 Not Detected (NOT DETECT); Influenza A H3 Not Detected (NOT DETECT); Influenza B Not Detected (NOT DETECT); Mycoplasma Pneumoniae Not Detected (NOT DETECT); Parainfluenza Virus Type 1 Not Detected (NOT DETECT); Parainfluenza Virus Type 2 Not Detected (NOT DETECT); Parainfluenza Virus Type 3 Not Detected (NOT DETECT); Parainfluenza Virus Type 4 Not Detected (NOT DETECT); Respiratory Syncytial Virus A Not Detected (NOT DETECT); Respiratory Syncytial Virus B Not Detected (NOT DETECT); SARS-COV-2 Detected (NOT DETECT)
--- NOTE | 2021-04-19 08:54 | P.CONIM_ITS ---
Providers/Reason For Consult Consulting Physician/Specialty*: Nephrology Reason for Consult*: Eval for renal failure Attending Physician: Paresh Reese MD Primary Care Provider: Colten Glaser MD History of Present Illness History of Present Illness Thank for consultation, today had the pleasure of reviewing this 40-year-old female in the presence of her mother for evaluation of renal failure. About 2 weeks ago, her mother reports that she developed a head cold with congestion. Last , she developed vomiting, with very poor oral intake over the last couple of weeks. She on Tuesday she was taken to urgent care where she was given antiemetics and sent home. Yesterday she continues to do very poorly with continuing vomiting, epigastric discomfort. Generally feeling very unwell. On arrival to the emergency room yesterday evening, CT scan demonstrated inflammation of the pancreas, she had a leukocytosis at 27, with acute renal failure with a creatinine of 10 (baseline 0.5), marginally improved to 9.8 on recheck. Severe anion gap metabolic acidosis with a lactic acid level of 5. Triglycerides appreciated to be 1000. Carroll catheter placed, poor urine output overnight, only 100 cc of dark urine also. She is currently on intravenous fluid with D5 sodium bicarb infusion of 125 cc an hour. She is also on an insulin infusion. At home she did take a combination of fenofibric, hydrochlorothiazide, spironolactone and was consistent with these medications despite her nausea and vomiting over the last few weeks. Hemodynamics actually quite robust, blood pressure on the high side since her hospitalization. No extremity edema, shortness of breath or other hypervolemic symptoms. No other overt uremic symptoms. 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 Mother reports no recent exposure to potentially nephrotoxic substances. Medications/Allergies Home Medications Medication Instructions Recorded Confirmed Last Taken Type norgestimate-ethinyl estradiol 1 tab PO DAILY #84 tab 01/14/21 04/17/21 Unknown Rx 0.18 mg/0.215mg/0.25mg-35 mcg(28)tablet (Tri-Linyah) metformin 1,000 mg tablet 1,000 mg PO BID #180 tab 01/29/21 04/17/21 Unknown Rx duloxetine 60 mg capsule,delayed 60 mg PO DAILY #90 cap 11/12/21 01/28/22 Unknown Rx release fenofibrate nanocrystallized 145 145 mg PO DAILY #90 tab 01/30/21 04/17/21 Unknown Rx mg tablet metoprolol succinate 50 mg 50 mg PO DAILY #90 tab 01/30/21 04/17/21 Unknown Rx tablet,extended release 24 hr (Toprol XL) spironolactone 50 mg tablet 50 mg PO BID #180 tab 01/30/21 04/17/21 Unknown Rx hydrochlorothiazide 25 mg tablet 25 mg PO DAILY #90 tab 02/26/21 04/17/21 Unknown Rx ondansetron 4 mg disintegrating 4 mg PO Q8H PRN #20 tab 04/17/21 04/17/21 Unknown Rx tablet Allergies Allergy/AdvReac Type Severity Reaction Status Date / Time No Known Allergies Allergy Verified 04/18/21 21:50 Current Medications Generic Name Dose Route Start Last Admin Trade Name Freq PRN Reason Stop Dose Admin Famotidine 20 mg 04/19/21 02:25 04/19/21 04:15 Famotidine 20 Mg/2 Ml Inj IVP 20 mg Q12H ANNIE Administration Heparin Sodium (Porcine) 5,000 unit 04/19/21 02:25 04/19/21 04:15 Heparin 5,000 Unit/Ml Inj 1 Ml SUBCUT 5,000 unit Q12H ANNIE Administration Insulin Human Regular 250 unit 252.5 mls @ 0 mls/hr 04/19/21 02:25 04/19/21 06:30 / Sodium Chloride IV 2.18 unit/hr .Q0M ANNIE 2.2 mls/hr Titration Protocol Per Protocol Potassium Chloride/Dextrose/Sod Cl 20 meq in 1,000 mls @ 125 mls/hr 04/19/21 02:25 04/19/21 04:14 D5-Ns 0.45% + Kcl 20 Meq IV 125 mls/hr .Q8H ANNIE Administration Sodium Bicarbonate 150 meq/ 1,150 mls @ 125 mls/hr 04/19/21 07:00 04/19/21 06:52 Dextrose IV 125 mls/hr .Q9H12M ANNIE Administration PFSH Acute PFSH: Medical History No pertinent family history Surgical History No pertinent past surgical history Family History Father Cancer Social History Smoking and tobacco status: never smoked Alcohol intake: never History of recent travel: No Female Reproductive History: Date of last menstrual period: 04/09/21 Vitals/I&O/Wt Last Vital Signs Temp 96.0 F L 04/19/21 03:00 Pulse 106 H 04/19/21 06:36 Resp 36 H 04/19/21 05:15 BP 161/88 04/19/21 05:15 Pulse Ox 92 04/19/21 06:36 04/18/21 04/19/21 04/19/21 22:59 06:59 14:59 Intake Total 7.905 / 7.905 Output Total 100 / 100 Balance -92.095 / -92.095 Weight last 48 hrs Weight 60.963 kg Physical Exam Narrative: EXAM NARRATIVE: Constitutional: Awake, comfortable HEENT: Wet mucosa, no jvp, non icteric Lungs: Bilaterally clear without discernible wheeze, rales in all lung zones CVS: S1 S2, no murmurs Abdo: Soft, BS ok Ext 4: Minimal edema, peripheral perfusion with no cyanosis Neurological: Grossly non-focal Urinary Catheter Management: Carroll: Cath Placed During This Visit: yes Reason for Continuing Indwelling Catheter: Accurate Measurement of Urinary Output in Critically Ill Patients Urinary Catheter Date of Insertion: 04/19/21 Urinary Catheter Time of Insertion: 01:00 Data : 04/18/21 21:49 04/19/21 03:00 Micro: Microbiology 04/18/21 21:49 Blood Culture - Preliminary Blood SPECIMEN COLLECTED 04/18/21 22:07 Blood Culture - Preliminary Blood SPECIMEN COLLECTED A&P Assessment and plan (1) Acute kidney injury: Status: Acute Plan 1. Oliguric acute renal failure Likely this is secondary to ATN, fractional excretion of sodium is 3% i.e. intrarenal, however, there has been some exposure to thiazide diuretics. The poor urine output is concerning that she may have a more protracted recovery and required temporary dialysis before recovery. No acute indication for dialysis at this moment in time, however, given the severe anion gap metabolic acidosis this may necessitate dialysis sooner rather than later if she does not make an expeditious recovery from supportive management. Kidneys look good on CT scan. No further imaging required. Urine studies now complete will add uric acid level, however, no other specific testing is required. We will check basic metabolic panels every 8 hours. Carroll catheter in with strict output monitoring. Dose medication for GFR less than 15 Avoid usual nephrotoxic agents. 2. Chemistry Severe anion gap metabolic acidosis with a lactic acid of 5, osmolality is pending although from clinical history, ingestion of volatile acids is extremely unlikely Likely secondary to uremia Continue sodium bicarb infusion with close monitoring Calcium is noted to be low at 6.2, after correction 6.6. Of note hypocalcemia is quite common in pancreatitis secondary to saponification, will give 3 g of calcium gluconate intravenously. 3. Pancreatitis Biliary tree looks okay on CT scan, triglycerides elevated at 1058 Currently n.p.o., continue supportive care, has received combination antibiotic therapy including Zosyn and vancomycin, blood cultures sent and are pending Given the severity of the pancreatitis, will discuss plasmapheresis with team members with an effort to acutely bring down triglyceride levels. 4. Hemodynamics Blood pressure on the high side we will give hydralazine intravenously 10 mg every 6 hours. Case discussed with mother at bedside, team members. Greater than 30 minutes spent in critical care time. 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
[2021-04-19 09:03] LABS: Glucose Point of Care 126 mg/dL (70-110)
[2021-04-19 09:21] LABS: Eosinophil Urine No Eosinophils Seen; Urine Eosinophil Count 0 (0-0)
[2021-04-19] MEDS: hyDRALAzine 20 mg/mL INJ 1 mL 10 MG IVP ×4 (09:50→20:20)
[2021-04-19 11:39] LABS: Glucose Point of Care 108 mg/dL (70-110)
[2021-04-19] MEDS: morphine 4 mg/mL SDV 1 mL 2 MG IVP ×3 (12:47→20:20)
[2021-04-19] MEDS: piperacillin-tazobactam 3.375 GM in sodium chloride 0.9% (plus) 50 ML IV ×2 (12:48)
[2021-04-19] MEDS: calcium gluconate 0.9% NaCL 1 GM/50 ML PREMIX IV (12:49)
--- NOTE | 2021-04-19 13:32 | PM.PN ---
Subjective Subjective: Interval history: Patient was tachypneic this morning, anxious wanted to drink some fluid, she was given 2-3 sips of water, no active emesis, I put her on BiPAP to decrease her work of breathing and use morphine We will keep high respiratory rate to avoid worsening of acidosis Continue insulin drip, check sugar every hour, lipase level at least twice a day Vitals/I&O/Wt Last Vital Signs Temp 96.0 F L 04/19/21 03:00 Pulse 106 H 04/19/21 06:36 Resp 20 H 04/19/21 12:47 BP 161/88 04/19/21 05:15 Pulse Ox 92 04/19/21 12:47 04/18/21 04/19/21 04/19/21 22:59 06:59 14:59 Intake Total 7.905 / 7.905 Output Total 100 / 100 Balance -92.095 / -92.095 Weight last 48 hrs Weight 60.963 kg Weight 60.963 kg Physical Exam Narrative: EXAM NARRATIVE: Patient and family in the room Patient is on room air Tachypneic Abdomen soft Bowel sounds sluggish Clinical looks dehydrated Nonfocal neuro exam Cognitive impairment S1, S2 sinus tachycardia Urinary Catheter Management: Carroll: Cath Placed During This Visit: yes Reason for Continuing Indwelling Catheter: Accurate Measurement of Urinary Output in Critically Ill Patients Urinary Catheter Date of Insertion: 04/19/21 Urinary Catheter Time of Insertion: 01:00 Data : 04/18/21 21:49 04/19/21 03:00 Micro: Microbiology 04/19/21 05:35 MRSA Culture - Final Nose 04/18/21 21:49 Blood Culture - Preliminary Blood SPECIMEN COLLECTED 04/18/21 22:07 Blood Culture - Preliminary Blood SPECIMEN COLLECTED A&P Assessment and plan (1) Leukocytosis: Status: Acute (2) Increased anion gap metabolic acidosis: Status: Acute (3) Acute encephalopathy: Status: Acute (4) Pneumonia: Status: Acute (5) Lactic acidosis: Status: Acute (6) Acute kidney injury: Status: Acute (7) Acute pancreatitis: Status: Acute (8) Mild mental handicap: Status: Acute (9) GODFREY (generalized anxiety disorder): Status: Acute (10) Essential hypertension: Status: Acute (11) Hypertriglyceridemia: Status: Acute (12) COVID: Status: Acute Plan I have started patient on BiPAP to decrease work of breathing continue bicarb drip for severe metabolic acidosis She is in respiratory acidosis, she is not adequately compensated Triglyceride induced pancreatitis: Lipase level check at least every 12 hours, insulin, check sugar every hour, start D5 IV fluids to avoid hypoglycemia COVID-19 related encephalopathy: Patient this morning seems to be on baseline as per the mother, very tachypneic and anxious, Not requiring oxygen Hold off on adding steroids of remdesivir at this point TONY related to dehydration, nephro recommendation appreciated, ATN N.p.o. 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
[2021-04-19] MEDS: dextrose 5%-sod chloride 0.45% 1,000 ML 100 ML IV (14:01)
[2021-04-19 14:11] LABS: Glucose Point of Care 88 mg/dL (70-110)
[2021-04-19 15:32] LABS: Glucose Point of Care 112 mg/dL (70-110)
[2021-04-19 16:33] LABS: Glucose Point of Care 102 mg/dL (70-110)
[2021-04-19 17:57] LABS: Glucose Point of Care 73 mg/dL (70-110)
[2021-04-19 19:34] LABS: Blood Urea Nitrogen 63 mg/dL (6-20); Calcium 6.7 mg/dL (8.5-10.5); Carbon Dioxide 10 mmol/L (22-29); Chloride 86 mmol/L (98-107); Glucose 54 mg/dL (65-115); Magnesium 1.7 mg/dL (1.7-2.3); Osmolality Calculated 294 mOsm/kg (285-295); Phosphorus 6.4 mg/dL (2.5-4.5); Sodium 134 mmol/L (136-145); Triglycerides 701 mg/dL (0-150)
--- NOTE | 2021-04-19 19:36 | PC.NURSE ---
Patient family remained in room for patient comfort. 1130 patient insulin drip changed from DKA protocol to 12u/hr with accuchecks hourly. Labwork delayed due to hemolysis. [address] Reese notified and orders to change insulin to 6u/hr followed. Patient respirations remain elevated in low 20's to mid 30's throughout shift. Bipap initiated and patient able to rest.
[2021-04-19 19:52] LABS: Troponin 5 6HR 28.32 ng/L (0-10)
[2021-04-19 19:57] LABS: Lipase 203 U/L (13-60)
[2021-04-19 20:22] LABS: LDL Cholesterol Direct 38 mg/dL (0-100)
[2021-04-19] MEDS: dextrose 50% syringe 50 mL IVP (20:35)
[2021-04-19 21:08] LABS: Glucose Point of Care 56 mg/dL (70-110)
[2021-04-19 21:08] LABS: Glucose Point of Care 197 mg/dL (70-110)
--- NOTE | 2021-04-19 21:11 | PC.NURSE ---
At 2030, BG 56. 1/2 amp D50 was administered and insulin gtt paused for 30 minutes. BG 197 at 2100 and insulin gtt readministered. Will continue to monitor Q1H
[2021-04-19 22:13] LABS: Glucose Point of Care 134 mg/dL (70-110)
[2021-04-19 23:26] LABS: Glucose Point of Care 91 mg/dL (70-110)
[2021-04-20] VITALS (95 sets, daily range): BP systolic 81–187; BP diastolic 43–104; PULSE 87–146; RESP 17–44; TEMP 37.1–37.7; O2SAT 84–99
[2021-04-20 00:23] LABS: Glucose Point of Care 58 mg/dL (70-110)
[2021-04-20] MEDS: dextrose 50% syringe 50 mL 25 ML IVP (00:25)
[2021-04-20] MEDS: piperacillin-tazobactam 3.375 GM in sodium chloride 0.9% (plus) 50 ML IV ×2 (00:26→13:54)
[2021-04-20] MEDS: dextrose 5%-sod chloride 0.45% 1,000 ML 100 ML IV ×3 (00:27→20:56)
[2021-04-20] MEDS: sodium bicarbonate 150 MEQ in dextrose 5% 1,000 ML 125 MEQ IV (01:15)
[2021-04-20 01:16] LABS: Glucose Point of Care 111 mg/dL (70-110)
[2021-04-20] MEDS: morphine 4 mg/mL SDV 1 mL 2 MG IVP ×3 (01:18→19:18)
[2021-04-20] MEDS: hyDRALAzine 20 mg/mL INJ 1 mL 10 MG IVP ×2 (01:18→06:02)
[2021-04-20 02:05] LABS: Glucose Point of Care 94 mg/dL (70-110)
[2021-04-20] MEDS: famotidine 20 mg/2 mL INJ IVP ×2 (03:11→13:54)
[2021-04-20] MEDS: heparin 5,000 unit/mL INJ 1 mL 5000 UNIT SUBCUT ×2 (03:11→13:55)
[2021-04-20 04:54] LABS: Alanine Aminotransferase 28 U/L (0-33); Albumin Level 2.7 g/dL (3.5-5.2); Alkaline Phosphatase 123 IU/L (35-105); Blood Urea Nitrogen 65 mg/dL (6-20); Carbon Dioxide 17 mmol/L (22-29); Chloride 84 mmol/L (98-107); Globulin 2.2 g/dL (1.3-4.6); Glomerular Filtration Rate 4.7 mL/min (90-130); Glucose 116 mg/dL (65-115); Osmolality Calculated 292 mOsm/kg (285-295); Sodium 131 mmol/L (136-145); Total Bilirubin 1.2 mg/dL (0.15-1.2); Total Protein 4.9 g/dL (6.6-8.7)
[2021-04-20 05:01] LABS: Anion Gap 34.3 (5-19); Aspartate Amino Transferase 36 U/L (0-32); Potassium 4.3 mmol/L (3.5-5.1)
[2021-04-20 05:02] LABS: Calcium 5.6 mg/dL (8.5-10.5)
[2021-04-20 05:11] LABS: Vancomycin Trough 20.4 ug/mL (10-15)
[2021-04-20 05:34] LABS: Lactic Sepsis W/Reflex 5.1 mmol/L (0.5-2.2)
[2021-04-20] MEDS: calcium gluconate 0.9% NaCL 1 GM/50 ML PREMIX IV ×2 (06:02→08:18)
[2021-04-20 06:17] LABS: Reflex Lactate Order REFLEX LACTIC ORDERD
[2021-04-20 07:01] LABS: Basophils % 0.1 %; Hemoglobin 9.7 g/dL (11.5-15.3); Lymphocytes # 0.8 10^3/uL (0.8-4.8); Lymphocytes % 5.1 %; Mean Corpuscular HGB Conc 33.4 g/dL (30.0-36.0); Mean Corpuscular Hemoglobin 30.2 pg (28.0-34.0); Mean Corpuscular Volume 90.3 fl (81-99); Mean Platelet Volume 12.3 fL (7.4-10.4); Monocytes # 0.9 10^3/uL (0.2-0.9); Monocytes % 5.9 %; Neutrophils # 13.35 10^3/uL (1.8-7.7); Neutrophils % 87.1 %; Nucleated Red Blood Cells % 0 %; Platelet Count 215 10^3/cmm (130-400); Red Blood Count 3.21 10^6/uL (4.1-5.3); Red Cell Distribution Width 13.4 % (12.1-15.1); White Blood Count 15.3 10^3/uL (4.0-10.0)
[2021-04-20 07:26] LABS: Triglycerides 610 mg/dL (0-150)
--- NOTE | 2021-04-20 07:39 | PM.PN ---
Subjective Subjective: Interval history: lethargic, weak, on bipap. oliguric Medications: Reviewed: Yes Medication Review Details: Current Medications Acetaminophen (Acetaminophen 325 Mg Tablet) 650 mg PO Q6H PRN PRN Reason: Mild/Mod Pain Or Temp >/= 101 Dextrose (Dextrose 50% Syringe 50 Ml) 25 ml IVP ONCE PRN; Protocol PRN Reason: hypoglycemia protocol Last Admin: 04/20/21 00:25 Dose: 25 ml Documented by: Dextrose (Dextrose 50% Syringe 50 Ml) 50 ml IVP PRN PRN; Protocol PRN Reason: hypoglycemia protocol Last Admin: 04/19/21 20:35 Dose: 50 ml Documented by: Famotidine (Famotidine 20 Mg/2 Ml Inj) 20 mg IVP Q12H [facility] Last Admin: 04/20/21 03:11 Dose: 20 mg Documented by: Glucagon (Glucagon 1 Mg/Ml Inj 1 Ml) 1 mg IM ONCE PRN; Protocol PRN Reason: Adult Acute Hypoglycemia Prot Heparin Sodium (Porcine) (Heparin 5,000 Unit/Ml Inj 1 Ml) 5,000 unit SUBCUT Q12H [facility] Last Admin: 04/20/21 03:11 Dose: 5,000 unit Documented by: Hydralazine HCl (Hydralazine 20 Mg/Ml Inj 1 Ml) 10 mg IVP Q4H [facility] Last Admin: 04/20/21 06:02 Dose: 10 mg Documented by: Dextrose (D5w) 500 mls @ 100 mls/hr IV ONCE PRN; Protocol PRN Reason: Adult Acute Hypoglycemia Prot Insulin Human Regular 250 unit (/ Sodium Chloride) 252.5 mls @ 0 mls/hr IV .Q0M [facility]; Protocol Last Titration: 04/19/21 21:08 Dose: 6 unit/hr, 6.06 mls/hr Documented by: Potassium Chloride/Dextrose/Sod Cl (D5-Ns 0.45% + Kcl 20 Meq) 20 meq in 1,000 mls @ 125 mls/hr IV .Q8H [facility] Last Admin: 04/19/21 04:14 Dose: 125 mls/hr Documented by: Piperacillin Sod/Tazobactam (Sod 3.375 gm/ Sodium Chloride) 50 mls @ 12.5 mls/hr IV Q12H [facility]; Protocol Last Infusion: 04/20/21 04:28 Dose: Infused Documented by: Sodium Bicarbonate 150 meq/ (Dextrose) 1,150 mls @ 125 mls/hr IV .Q9H12M [facility] Last Admin: 04/20/21 01:15 Dose: 125 mls/hr Documented by: calcium gluconate 0.9% NaCL (Calcium Gluconate 0.9% Nacl) 1 gm in 50 mls @ 100 mls/hr IV Q30MIN [facility] Stop: 04/20/21 09:29 Last Infusion: 04/20/21 06:50 Dose: Infused Documented by: Dextrose/Sodium Chloride (Dextrose 5%-Sod Chloride 0.45%) 1,000 mls @ 100 mls/hr IV .Q10H [facility] Last Admin: 04/20/21 00:27 Dose: 100 mls/hr Documented by: Magnesium Sulfate (Magnesium Sulfate Premix) 4 gm in 100 mls @ 50 mls/hr IV ONCE ONE Stop: 04/20/21 07:52 Morphine Sulfate (Morphine 4 Mg/Ml Sdv 1 Ml) 2 mg IVP Q4H PRN PRN Reason: SEVERE PAIN Last Admin: 04/20/21 01:18 Dose: 2 mg Documented by: Naloxone HCl (Naloxone 0.4 Mg/Ml Sdv) 0.1 mg IVP Q2M PRN PRN Reason: OPIATERV Ondansetron HCl (Ondansetron 2 Mg/Ml Sdv 2 Ml) 4 mg IVP Q8H PRN PRN Reason: vomiting, or N/V if npo Vitals/I&O/Wt Last Vital Signs Temp 99.0 F 04/20/21 04:00 Pulse 124 H 04/20/21 06:00 Resp 32 H 04/20/21 04:16 BP 137/71 04/20/21 04:16 Pulse Ox 92 04/20/21 04:16 04/19/21 04/20/21 04/20/21 22:59 06:59 14:59 Intake Total 1267.872 / 1615.541 7340.417 / 3515.969 Output Total 50 / 50 Balance 1217.872 / 6088.080 2728.417 / 3465.969 Weight last 48 hrs Weight 60.963 kg Weight 60.963 kg Physical Exam Narrative: EXAM NARRATIVE: on b ipap, confused vs noted. sob heent- nc/at, eomi neck obese lungs crackles heart- tachycardic abd soft, distended, + bs ext edema neuro- responds to voice, follows simple commands Urinary Catheter Management: Carroll: Cath Placed During This Visit: yes Reason for Continuing Indwelling Catheter: Accurate Measurement of Urinary Output in Critically Ill Patients Urinary Catheter Date of Insertion: 04/19/21 Urinary Catheter Time of Insertion: 01:00 Data : 04/18/21 21:49 04/20/21 03:20 Micro: Microbiology 04/18/21 21:49 Blood Culture - Preliminary Blood NEGATIVE TO DATE 04/18/21 22:07 Blood Culture - Preliminary Blood NEGATIVE TO DATE 04/19/21 05:35 MRSA Culture - Final Nose A&P Assessment and plan (1) Acute kidney injury: 40 yr old female COVID-19+ , hypertriglyceridemia, pancreas inflammation on ct scan, TONY 1. leukocytosis- renal dose antivirals and abx 2. TONY- ATN/ COVID-nephropathy- will start HD 3. inc AGMA met acidosis from TONY and lactic acidosis- not improving on bicarb drip- will d/c and start emergency HD 4. hyponatremia- from tony 5. hypocalcemia- replete. d/c bicarb drip 6. hypertriglyceridemia is improving seen and examined w/ RN- telehealth visit Status: Acute Plan see above Attestations Medical Necessity Statement*: tony, met acidosis, covid Time Spent in Patient Care: Greater than 35 minutes (>than 50% of time spent in counselling and/or direct pt care on unit). 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
[2021-04-20 07:42] LABS: Glucose Point of Care 85 mg/dL (70-110)
[2021-04-20 07:42] LABS: Glucose Point of Care 128 mg/dL (70-110)
[2021-04-20 07:43] LABS: LDL Cholesterol Direct 33 mg/dL (0-100)
--- NOTE | 2021-04-20 07:52 | P.CONIM_ITS ---
Providers/Reason For Consult Consulting Physician/Specialty*: Jeovany Sue MD Reason for Consult*: Hemodialysis access Requesting Physician: Dr. Benson Attending Physician: Paresh Reese MD Primary Care Provider: Colten Glaser MD History of Present Illness History of Present Illness Ms.Beth Mckeon is a pleasant 40 year old female with multiple medical comorbidities. Patient was admitted to the hospitalist service because of worsening nausea vomiting abdominal pain and increased confusion. Further work- up showed that the patient had increased anion gap metabolic acidosis with respiratory alkalosis.Earlier today human resource professional's service consulted general surgery to have a hemodialysis access catheter. From the history that I collected so far the patient is mentally challenged and her mother is the one taking care of her daughter. Review of Systems General: Reports: ROS unobtainable due to medical condition Medications/Allergies Home Medications Medication Instructions Recorded Confirmed Last Taken Type norgestimate-ethinyl estradiol 1 tab PO DAILY #84 tab 01/14/21 04/19/21 Unknown Rx 0.18 mg/0.215mg/0.25mg-35 mcg(28)tablet (Tri-Linyah) metformin 1,000 mg tablet 1,000 mg PO BID #180 tab 01/29/21 04/19/21 Unknown Rx duloxetine 60 mg capsule,delayed 60 mg PO DAILY #90 cap 01/30/21 04/19/21 Unknown Rx release fenofibrate nanocrystallized 145 145 mg PO DAILY #90 tab 01/30/21 04/19/21 Unknown Rx mg tablet metoprolol succinate 50 mg 50 mg PO DAILY #90 tab 01/30/21 04/19/21 Unknown Rx tablet,extended release 24 hr (Toprol XL) spironolactone 50 mg tablet 50 mg PO BID #180 tab 01/30/21 04/19/21 Unknown Rx hydrochlorothiazide 25 mg tablet 25 mg PO DAILY #90 tab 02/26/21 04/19/21 Unknown Rx ondansetron 4 mg disintegrating 4 mg PO Q8H PRN #20 tab 04/17/21 04/19/21 Unknown Rx tablet Allergies Allergy/AdvReac Type Severity Reaction Status Date / Time No Known Allergies Allergy Verified 04/20/21 13:09 Current Medications Generic Name Dose Route Start Last Admin Trade Name Freq PRN Reason Stop Dose Admin Dextrose 25 ml 04/19/21 02:25 04/20/21 00:25 Dextrose 50% Syringe 50 Ml IVP 25 ml ONCE PRN Administration hypoglycemia protocol Protocol Dextrose 50 ml 04/19/21 02:25 04/19/21 20:35 Dextrose 50% Syringe 50 Ml IVP 50 ml PRN PRN Administration hypoglycemia protocol Protocol Famotidine 20 mg 04/19/21 02:25 04/20/21 03:11 Famotidine 20 Mg/2 Ml Inj IVP 20 mg Q12H ANNIE Administration Heparin Sodium (Porcine) 5,000 unit 04/19/21 02:25 04/20/21 03:11 Heparin 5,000 Unit/Ml Inj 1 Ml SUBCUT 5,000 unit Q12H ANNIE Administration Hydralazine HCl 10 mg 04/19/21 09:30 04/20/21 06:02 Hydralazine 20 Mg/Ml Inj 1 Ml IVP 10 mg Q4H ANNIE Administration Insulin Human Regular 250 unit 252.5 mls @ 0 mls/hr 04/19/21 02:25 04/19/21 21:08 / Sodium Chloride IV 6 unit/hr .Q0M ANNIE 6.06 mls/hr Titration Protocol Per Protocol Potassium Chloride/Dextrose/Sod Cl 20 meq in 1,000 mls @ 125 mls/hr 04/19/21 02:25 04/19/21 04:14 D5-Ns 0.45% + Kcl 20 Meq IV 125 mls/hr .Q8H ANNIE Administration Piperacillin Sod/Tazobactam 50 mls @ 12.5 mls/hr 04/19/21 12:00 04/20/21 04:28 Sod 3.375 gm/ Sodium Chloride IV Infused Q12H ANNIE Infusion Protocol Sodium Bicarbonate 150 meq/ 1,150 mls @ 125 mls/hr 04/19/21 07:00 04/20/21 01:15 Dextrose IV 125 mls/hr .Q9H12M ANNIE Administration calcium gluconate 0.9% NaCL 1 gm in 50 mls @ 100 mls/hr 04/19/21 09:00 04/20/21 06:50 Calcium Gluconate 0.9% Nacl IV 04/20/21 09:29 Infused Q30MIN ANNIE Infusion Dextrose/Sodium Chloride 1,000 mls @ 100 mls/hr 04/19/21 13:45 04/20/21 00:27 Dextrose 5%-Sod Chloride 0.45% IV 100 mls/hr .Q10H ANNIE Administration Morphine Sulfate 2 mg 04/19/21 11:57 04/20/21 01:18 Morphine 4 Mg/Ml Sdv 1 Ml IVP 2 mg Q4H PRN Administration SEVERE PAIN PFSH Acute PFSH: Medical History No pertinent family history Surgical History No pertinent past surgical history Family History Father Cancer Social History Smoking and tobacco status: never smoked Alcohol intake: never History of recent travel: No Female Reproductive History: Date of last menstrual period: 04/09/21 Vitals/I&O/Wt Last Vital Signs Temp 99.0 F 04/20/21 04:00 Pulse 124 H 04/20/21 06:00 Resp 32 H 04/20/21 04:16 BP 137/71 04/20/21 04:16 Pulse Ox 92 04/20/21 04:16 04/19/21 04/20/21 04/20/21 22:59 06:59 14:59 Intake Total 1267.872 / 1012.901 2049.417 / 3515.969 Output Total 50 / 50 Balance 1217.872 / 8160.722 7821.417 / 3465.969 Weight last 48 hrs Weight 134 lb 6.4 oz Weight 134 lb 6.4 oz Physical Exam Narrative: EXAM NARRATIVE: Patient is conscious alert oriented X3 On BiPAP BMI 26.2 Head and neck examination PERRLA no masses no cervical lymphadenopathy no jaundice Cardiac examination audible S1-S2 no murmurs no gallops no arrhythmias Chest bilateral Rhonchi ,no surgical emphysema Abdomen nontender nondistended soft no organomegaly guarding or rigidity/no signs of peritonitis Extremities no cyanosis no clubbing no edema Urinary Catheter Management: Carroll: Cath Placed During This Visit: yes Reason for Continuing Indwelling Catheter: Accurate Measurement of Urinary Output in Critically Ill Patients Urinary Catheter Date of Insertion: 04/19/21 Urinary Catheter Time of Insertion: 01:00 Data : 04/20/21 06:21 04/20/21 09:20 Micro: Microbiology 04/18/21 21:49 Blood Culture - Preliminary Blood NEGATIVE TO DATE 04/18/21 22:07 Blood Culture - Preliminary Blood NEGATIVE TO DATE 04/19/21 05:35 MRSA Culture - Final Nose A&P Assessment and plan (1) Acute kidney injury: Plan of care; After thorough history physical examination and reviewing the chart and reviweing the images with my personal intrepretation.I counseled the patient and her mother for temporary hemodialysis catheter placement, indications, risks including possibility of , stroke, heart attack, major bleeding, infection, pneumonia, organ failure, failure to benefit, prolonged hospital stay, pain after the procedure pneumothorax that may require Chest tube(s) placement and potential injury of major vascular structures that may require Thoractomy, bene fits,indications and alternatives were all discussed with the patient and her mom. patient and her mom understand and are interested to proceed. Rationale was carefully and clearly discussed with the patient and her mother informed consent have been reviewed and signed. 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
--- NOTE | 2021-04-20 07:52 | PC.SOCIAL ---
Appbasim from Dr Reese to allow the Sister Yasmeen Samaniego to sit with patient while Mother goes home and showers and possibly naps etc. She will switch back out after a few hours. NOtified Lucia in ICU to give message to patient care nurse and charge nurse and was approved by provider. Yasmeen is aware she will have to wear the appropriate PPE at all times. She verbalized understanding and indicates she is also fully vaccinated and has received booster. Explained it will be important either way to wear the appropriate PPE. She agreed.
[2021-04-20 07:55] LABS: Slide Review Slide Review Perform
[2021-04-20 07:57] LABS: Lactic Acid level (Lactate) 4.7 mmol/L (0.5-2.2)
[2021-04-20] MEDS: magnesium sulfate premix 4 GM/100 ML PREMIX IV (08:18)
[2021-04-20 08:32] LABS: Hepatitis B Surface AB 3.5 (11.5-1000); Hepatitis B Surface Antigen Non-Reactive (Nonreactive); Hepatitis C Virus Antibody Non-Reactive (Nonreactive)
--- NOTE | 2021-04-20 09:07 | XR_ITS ---
WS: [id number] XR chest 1V portable [id number] REASON FOR EXAM: line placement FINDINGS: Right transjugular dual-lumen central venous line has been placed the tip is at the cavoatrial juncti on in proper position for use. Diffuse interstitial and confluent alveolar lung opacities with air bronchograms in the central lower lungs. No right pneumothorax. XR/XR chest 1V portable [id number] IMPRESSION: Right central line placement. Diffuse bilateral subacute lung disease as above.
--- NOTE | 2021-04-20 09:20 | PM.ACPR ---
Procedure/Consent Time out: Time Out Performed: Yes Consent: Consent for Procedure: Consent obtained from other (indicate) (Mother), Risks & Benefits reviewed and Agrees to proceed with procedure Procedure Narrative: Pre Procedure diagnosis; acute renal failure Postprocedure diagnoses the same Procedure done; 1-placement of 12 [place] temporary dialysis catheter,16 cm length 1-Szomreokyi-gqrobz placement of temporary dialysis catheter Indication acute renal failure Medications were reviewed to assess for anticoagulant usage. Risks and benefits and prevention of central line associated blood stream infection (CLABSI) were discussed with the patient/CPOA, and a consent was obtained. Monitors were in place and monitored throughout the procedure. All necessary supplies were available prior to start. Hand hygiene was completed prior to starting. Maximum barrier technique was utilized including a sterile gown, sterile gloves with a hat and mask. Site was was prepped with [chlorhexidine] and a full body drape was placed. 5 mL of 2% lidocaine was injected into the skin with a 25 gauge needle. Description Local anesthetic in the form of 1% lidocaine infiltrated at the site of insertion of the catheter Prep& drape was done under the usual sterile technique of upper chest right and left as well as the neck both sides, lidocaine 1% was injected at the site of the stick, started by right internal jugular vein stick that retrieved venous blood was obtained from the first stick that was done under ultrasound guidance with my personal interpretation there was no intraluminal thrombosis. A guidewire was then threaded and there was no PVC changes, at that point the guidewire was secured to the drapes with a hemostat and the needle was taken out, followed by that serial dilators ,the dilator was then taken out, glide wire maintained to be in good position and the hemodialysis catheter 12 [place] was introduced onto the guidewire, with venous and arterial hubs were flushed and retrieved venous blood without difficulty. The catheter was secured to the skin using 3-0 silk and a Biopatch was applied. Hep-Lock's were then applied Postprocedure chest x-ray was done, showed catheter in good position and no pneumothorax Patient tolerated the procedure well I Was present for the whole entire procedure TYPE OF PLACEMENT: Temporary dialysis catheter in the right internal jugular vein TUNNELED:(NO) IMAGING UTILIZED:~ [Ultrasound guided approach/and interpretation of images done by me through the procedure] Poultice Machine Operator: it service technician Malathi and RN Taylor ANESTHESIA: [Local lidocaine 1%] REASON FOR PLACEMENT: [Acute kidney injury] No specimens Acute Procedures Epistaxis Control: Time out performed: Yes
--- NOTE | 2021-04-20 09:21 | PC.CHAP ---
Pastoral Care Encounter/Spiritual Assessment Type of Contact [] Declined track mechanic visit [] Patient/Family/Request visit [] Outpatient visit [] Follow-up visit [] Physician referral [] Code/Alert [x] Routine visit [] Staff referral [] Actively dying [] Patient sleeping [x] Family support [] [] Out of room [] Palliative care [] [] Receiving care in room [] Pre-surgical visit [] Trauma [] Long length of stay [x] ICU visit [x] Other: patient seems very stressed Relational/Emotional Strength [] Patient feels connected with others/family/visitors/staff [] Distress [] Loneliness/isolation [] Abandonment Spirituality of Patient [] Person of Emelina [] Attends Gnosticism of their Emelina [] Believes in Prayer [] Reads Bible or Protestant materials [] There are Spiritual issues to be addressed Quality Supervisor Interventions [x] Prayer [] Active listening [] Non-anxious presence [] Spiritual/emotional support [] Crisis/trauma care [] Spiritual counseling [] Bereavement support [] Provided bereavement packet [] Provided Bible/devotional materials [] Provided toy/stuffed animal, coloring book to patient or family member [] Provided Communion [] Anointing/[place] [] Salvation [x] Completed spiritual assessment [] Other: Impact on Illness or Injury [] Angry [] Fearful [] Anxious [] Often cries [] Exhaustion [] Unable to work [] Unable to attend hindu [] Unable to walk/stand [] Unable to read [] Unable to drive [] Unable to eat/drink [] Unable to sleep [] Unable to be with family [] Patient intubated [] Other: Summary Time spent with patient
[2021-04-20 09:45] LABS: Anion Gap 31.8 (5-19); Blood Urea Nitrogen 65 mg/dL (6-20); Calcium 6.8 mg/dL (8.5-10.5); Carbon Dioxide 16 mmol/L (22-29); Chloride 85 mmol/L (98-107); Glomerular Filtration Rate 4.9 mL/min (90-130); Glucose 143 mg/dL (65-115); Osmolality Calculated 289 mOsm/kg (285-295); Potassium 3.8 mmol/L (3.5-5.1); Sodium 129 mmol/L (136-145); Triglycerides 619 mg/dL (0-150)
[2021-04-20 09:47] LABS: ABG PCO2 31.5 mmHg (35-45); Arterial Blood Gas Hematocrit 28.3 % (37-47); Base Excess ABG -4.9 mmol/L (-2.0-2.0); Blood Gas Allen Test Pos; Blood Gas Operator Identificat BD; Blood Gas Sample Site Brachial, left; Blood Gas Sample Type Arterial; HCO3 ABG 19.3 mmol/L (22-26); Oxygen Device BIPAP; PO2 ABG 69.2 mmHg (80.0-100.0)
--- NOTE | 2021-04-20 10:37 | PM.PN ---
Subjective Subjective: Interval history: Oliguric. Patient remained anxious overnight, however tolerated BiPAP Tachycardia Leukocytosis improving Afebrile ABG shows improvement pH 7.4 PO2 69 on 45% Bicarb drip turned off for hypo-Adalberto Hyponatremia, bicarb improved to 16 Anion gap improved but still high at 31 Creatinine 9 Temporary dialysis catheter placed by Dr. Sue this morning Dr. Benson evaluated her this morning as well High phosphorus and uric acid Triglyceride trending down, 600, repeat around noon Hypotension Requested nurse to check triglyceride level around noon, started norepinephrine before dialysis Current insulin drip down to 3 units Vitals/I&O/Wt Last Vital Signs Temp 99.0 F 04/20/21 04:00 Pulse 124 H 04/20/21 06:00 Resp 20 H 04/20/21 08:41 BP 137/71 04/20/21 04:16 Pulse Ox 92 04/20/21 04:16 04/19/21 04/20/21 04/20/21 22:59 06:59 14:59 Intake Total 1267.872 / 6684.391 7007.417 / 3515.969 74.437 / 74.437 Output Total 50 / 50 Balance 1217.872 / 6779.518 7314.417 / 3465.969 74.437 / 74.437 Weight last 48 hrs Weight 60.963 kg Weight 60.963 kg Physical Exam Narrative: EXAM NARRATIVE: Patient is on BiPAP She is getting temporary dialysis catheter Awake however very lethargic and fatigued Abdomen soft ATN oliguric Mother at the bedside Hypotensive Assisted bilateral breath sounds Nonfocal neuro exam Cognitive impairment Urinary Catheter Management: Carroll: Cath Placed During This Visit: yes Reason for Continuing Indwelling Catheter: Accurate Measurement of Urinary Output in Critically Ill Patients Urinary Catheter Date of Insertion: 04/19/21 Urinary Catheter Time of Insertion: 01:00 Data : 04/20/21 06:21 04/20/21 09:20 Micro: Microbiology 04/19/21 05:35 Urine Culture - Preliminary Urine Catheterized 04/18/21 21:49 Blood Culture - Preliminary Blood NEGATIVE TO DATE 04/18/21 22:07 Blood Culture - Preliminary Blood NEGATIVE TO DATE 04/19/21 05:35 MRSA Culture - Final Nose A&P Assessment and plan (1) COVID: Status: Acute (2) Leukocytosis: Status: Acute (3) Increased anion gap metabolic acidosis: Status: Acute (4) Acute encephalopathy: Status: Acute (5) Pneumonia: Status: Acute (6) Lactic acidosis: Status: Acute (7) Acute pancreatitis: Status: Acute (8) Mild mental handicap: Status: Acute (9) GODFREY (generalized anxiety disorder): Status: Acute (10) Hypertriglyceridemia: Status: Acute (11) ATN (acute tubular necrosis): Status: Acute Plan COVID-19 related hypoxia currently on BiPAP to decrease work of breathing with underlying metabolic acidosis Start Decadron remdesivir regimen Hypertriglyceridemia induced pancreatitis: We will turn off insulin once triglyceride level less than 500, triglyceride level check every 12 hours, will check before dialysis as well to see if he can turn off her insulin to avoid hypoglycemia during dialysis, nurse updated Decrease units of insulin to 3 units down from 6 Sepsis source is most likely COVID-19, patient has been afebrile, leukocytosis improving, closely monitor for any signs of necrotic pancreatitis Continue IV antibiotics, lipase trending down Sepsis related to COVID-19 Leukocytosis trending down, afebrile, no signs of DIC Currently on Levophed Septic shock Metabolic acidosis related to lactic acidemia Continue IV fluids, Levophed Albumin to be administered as per nephro recommendations Patient going for dialysis Temporary dialysis catheter placed by Dr. Sue Normal TSH and procalcitonin ATN related to sepsis Dehydration Going for dialysis, temporary dialysis catheter placed today 04/20 Encephalopathy related to uremia versus COVID-19 Hypocalcemia related to bicarb infusion: Repleted as per nephro Patient extremely dehydrated Full code Currently on clear liquid DVT prophylaxis Heparin Attestations Medical Necessity Statement*: Continue ICU management Time Spent in Patient Care: 30min Coding Level of Care Code Acute Fugitive Investigator for g Fwd Diagnoses COVID U07.1 Leukocytosis D72.829 Increased anion gap metabolic acidosis E87.2 Acute encephalopathy G93.40 Pneumonia J18.9 Lactic acidosis E87.2 Acute pancreatitis K85.90 Mild mental handicap F70 GODFREY (generalized anxiety disorder) F41.1 Hypertriglyceridemia E78.1 ATN (acute tubular necrosis) N17.0
[2021-04-20 10:40] LABS: LDL Cholesterol Direct 32 mg/dL (0-100)
[2021-04-20 11:17] LABS: Glucose Point of Care 90 mg/dL (70-110)
[2021-04-20] MEDS: dexamethasone 10 mg/mL INJ 6 MG IVP (11:17)
[2021-04-20] MEDS: dextrose 5 % 500 ML 100 ML IV (11:17)
[2021-04-20 11:28] LABS: Glucose Point of Care 155 mg/dL (70-110)
[2021-04-20] MEDS: ondansetron 2 mg/ML SDV 2 mL 4 MG IVP ×2 (12:06→19:18)
[2021-04-20 12:36] LABS: Triglycerides 684 mg/dL (0-150)
[2021-04-20 12:57] LABS: Glucose Point of Care 76 mg/dL (70-110)
[2021-04-20 13:11] LABS: LDL Cholesterol Direct 39 mg/dL (0-100)
--- NOTE | 2021-04-20 13:29 | XR_ITS ---
WS: [id number] XR chest 1V portable [id number] REASON FOR EXAM: Dr mendoza FINDINGS: Diffuse interstitial and alveolar lung opacities are again noted. These lung opacities do not appear as dense or defined as on the examination of 9:29 AM today. No other interval change or new finding is noted. XR/XR chest 1V portable [id number] IMPRESSION: Possibly the lung opacities have decreased in density which would imply resolvi ng which would be more compatible with a non pneumonitis etiology.
[2021-04-20 13:30] LABS: Glucose Point of Care 80 mg/dL (70-110)
--- NOTE | 2021-04-20 13:52 | ECG_ITS ---
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: : 1980 Requested By: Nito Melton Order Number: [id number] Reading MD: SUNDAY LOVE Measurements Intervals [place] Rate: 112 P: 44 IA: 109 QRS: 28 QRSD: 82 T: 18 QT: 316 QTc: 432 Interpretive Statements SINUS TACHYCARDIA WITH SHORT IA INTERVAL LOW QRS VOLTAGE IN PRECORDIAL LEADS [QRS DEFLECTION < 1.0 mV IN CHEST LEADS] ABNORMAL RHYTHM ECG Compared to ECG 04/19/2021 06:27:13 Short IA interval now present Low QRS voltage now present T-wave abnormality no longer present Electronically Signed On 04-20-2021 19:49:28 NOTE TELLER by SUNDAY LOVE [email or web address]
[2021-04-20] MEDS: remdesivir 200 MG in sodium chloride 0.9% (100 ml) 60 ML 100 MG IV (13:55)
--- NOTE | 2021-04-20 13:55 | USCV_ITS ---
Precious Mckeon Age: 40 Gender: F : 1980 Exam Date: 04/20/2021 14:20 Ordering Phys: Nito Costello MD Technologist: BOB Exam Location: [facility] Indication: SOB, on PAPR in ICU-11 COVID . No hx DVT. HISTORY: SOB, on PAPR in ICU-11 COVID . No hx DVT. PROCEDURES: Venous duplex imaging was performed in bilateral lower extremities. The following venous structures were evaluated: common femoral vein, profunda vein, proximal portion of the greater saphenous vein, superficial femoral vein, and the popliteal vein. In addition, the posterior tibial veins were evaluated. FINDINGS: Normal 2-D Doppler and augmentation and compressibility throughout the lower extremity venous structures. Additional imaging through the proximal calf veins also reveals no thrombus. Limited evaluation of the greater saphenous vein is patent with no thrombus. CONCLUSIONS No DVT bilateral lower extremities. Dr. Precious Shin DO (Electronically Signed) Final Date: 20 April 2021 15:51 S
[2021-04-20 13:59] LABS: ABG PCO2 46.9 mmHg (35-45); ABG PH Result 7.32 (7.35-7.45); Alveolar-Arterial Oxygen Gradi 76.2 mmHg (5-10); Arterial Blood Gas Hematocrit 33.3 % (37-47); Base Excess ABG -1.9 mmol/L (-2.0-2.0); Blood Gas Allen Test Pos; Blood Gas Operator Identificat BD; Blood Gas Sample Site Radial, left; Blood Gas Sample Type Arterial; Carboxyhemoglobin 0.6 %THgb (0.4-20.1); HCO3 ABG 24.3 mmol/L (22-26); HGB O2 Sat 82.1 % (95-100); Ionized Calcium Level - ABG 1.1 mmol/L (1.1-1.4); Methemoglobin 0.8 % (0.4-1.5); Oxygen Device BIPAP; Oxygen Saturation ABG 83.2; PO2 ABG 68.1 mmHg (80.0-100.0); Potassium Level - ABG 3.6 mmol/L (3.5-5.0); Total Hemoglobin 10.9 g/dL (12-16)
[2021-04-20 14:17] LABS: ABG PCO2 51.6 mmHg (35-45); ABG PH Result 7.32 (7.35-7.45); Base Excess ABG -0.3 mmol/L (-2.0-2.0); Blood Gas Allen Test Pos; Blood Gas Operator Identificat BD; Blood Gas Sample Site Radial, right; Blood Gas Sample Type Arterial; Carboxyhemoglobin 0.2 %THgb (0.4-20.1); HCO3 ABG 26.4 mmol/L (22-26); HGB O2 Sat 96.3 % (95-100); Methemoglobin 0.2 % (0.4-1.5); Oxygen Device BIPAP; Oxygen Saturation ABG 96.7; PO2 ABG 94.2 mmHg (80.0-100.0); Potassium Level - ABG 3.8 mmol/L (3.5-5.0); Total Hemoglobin 10.8 g/dL (12-16)
[2021-04-20] MEDS: ipratropium-albuterol 3 mL Neb INHALATION ×2 (15:22→20:20)
[2021-04-20 15:28] LABS: Glucose Point of Care 84 mg/dL (70-110)
[2021-04-20] MEDS: heparin drip 25,000 UNIT/500 ML PREMIX 20.73 UNIT IV (15:35)
[2021-04-20 16:03] LABS: Glucose Point of Care 89 mg/dL (70-110)
--- NOTE | 2021-04-20 16:44 | PM.CONSULT ---
Providers/Reason For Consult Consulting Physician/Specialty*: Nito Costello MD/Pulmonary Critical Care Reason for Consult*: Acute hypoxic respiratory requiring 100% on BiPAP Requesting Physician: Paresh Reese MD Attending Physician: Paresh Reese MD Primary Care Provider: Colten Glaser MD History of Present Illness History of Present Illness Precious Mckeon is a 40 year old female with a PMH of polycystic ovarian syndrome, hypertriglyceridemia, hypertension, depression, history of cognitive impairment presented to [facility] on 04/19/2021 due to nausea, vomiting, abdominal pain, increased confusion.? Currently patient is alert to person, to place, not to time, most of the history was obtained by her family at bedside.? As per mom that roughly 2 weeks ago she had cold and was not feeling well, no history of COVID-19 exposure, no history of COVID-19 vaccination, no history of flu vaccination.? Since then she has had some degree of a poor appetite, no complaints of shortness of breath, no other significant complaints.? She presented to urgent care on the , due to worsening nausea and vomiting, myalgias, and inability to keep down liquids was diagnosed with gastroenteritis, was given Zofran and sent home. Work-up in the emergency room shows increased anion gap metabolic acidosis with respiratory alkalosis, no history of type 2 diabetes mellitus, A1c 6.3, blood sugars in the 120s, ketones are positive, no history of toxic ingestion of ethylene glycol or methanol, she also has evidence of pancreatitis, elevated lipase, does have hyper triglyceridemia, does have right upper quadrant pain, gallstones or cholecystitis on imaging, rapid Covid was negative but Covid PCR positive.? Patient reports abdominal pain, particularly in the epigastric region, right upper quadrant.? Denies any shortness of breath.? Denies any fevers.? Denies any chest pain.? Denies any diarrhea.? No lightheadedness.? No dizziness.? No joint pains.? No muscle aches.? No toxic ingestions. Today morning patient underwent hemodialysis and removed 2 L fluidpost dialysis she had sudden desaturation and bradycardia 45 bpm-and has to increase FiO2 from 40% to 100% on BiPAP. Pulmonary critical care consulted for sudden desaturation. patient appeared anxious at bedside on BiPAP and was started on Precedex. There was a suspicion of PE but could not get CT angiogram with contrast as she just completed dialysis and so started on heparin drip. Other labs and imaging reviewed. With BiPAP mask and patient being very anxious, she could not give her symptoms but kept saying that she wanted to go home. Review of Systems General: Reports: 10 or more systems reviewed and unremarkable except in HPI and below Medications/Allergies Home Medications Medication Instructions Recorded Confirmed Last Taken Type norgestimate-ethinyl estradiol 1 tab PO DAILY #84 tab 01/14/21 04/19/21 Unknown Rx 0.18 mg/0.215mg/0.25mg-35 mcg(28)tablet (Tri-Linyah) metformin 1,000 mg tablet 1,000 mg PO BID #180 tab 01/29/21 04/19/21 Unknown Rx duloxetine 60 mg capsule,delayed 60 mg PO DAILY #90 cap 01/30/21 04/19/21 Unknown Rx release fenofibrate nanocrystallized 145 145 mg PO DAILY #90 tab 01/30/21 04/19/21 Unknown Rx mg tablet metoprolol succinate 50 mg 50 mg PO DAILY #90 tab 01/30/21 04/19/21 Unknown Rx tablet,extended release 24 hr (Toprol XL) spironolactone 50 mg tablet 50 mg PO BID #180 tab 01/30/21 04/19/21 Unknown Rx hydrochlorothiazide 25 mg tablet 25 mg PO DAILY #90 tab 02/26/21 04/19/21 Unknown Rx ondansetron 4 mg disintegrating 4 mg PO Q8H PRN #20 tab 04/17/21 04/19/21 Unknown Rx tablet Allergies Allergy/AdvReac Type Severity Reaction Status Date / Time No Known Allergies Allergy Verified 04/20/21 13:09 Current Medications Generic Name Dose Route Start Last Admin Trade Name Freq PRN Reason Stop Dose Admin Albuterol/Ipratropium 3 ml 04/20/21 15:04 04/20/21 15:22 Ipratropium-Albuterol 3 Ml Neb INHALATION 3 ml Q6H.RESPIRATORY ANNIE Administration Dexamethasone 6 mg 04/20/21 11:00 04/20/21 11:17 Dexamethasone 10 Mg/Ml Inj IVP 6 mg Q24H ANNIE Administration Dextrose 25 ml 04/19/21 02:25 04/20/21 00:25 Dextrose 50% Syringe 50 Ml IVP 25 ml ONCE PRN Administration hypoglycemia protocol Protocol Dextrose 50 ml 04/19/21 02:25 04/19/21 20:35 Dextrose 50% Syringe 50 Ml IVP 50 ml PRN PRN Administration hypoglycemia protocol Protocol Famotidine 20 mg 04/19/21 02:25 04/20/21 13:54 Famotidine 20 Mg/2 Ml Inj IVP 20 mg Q12H ANNIE Administration Heparin Sodium (Porcine) 5,000 unit 04/19/21 02:25 04/20/21 13:55 Heparin 5,000 Unit/Ml Inj 1 Ml SUBCUT 5,000 unit Q12H ANNIE Administration Dextrose 500 mls @ 100 mls/hr 04/19/21 02:25 04/20/21 11:17 D5w IV 100 mls/hr ONCE PRN Administration Adult Acute Hypoglycemia Prot Protocol Insulin Human Regular 250 unit 252.5 mls @ 0 mls/hr 04/19/21 02:25 04/20/21 09:25 / Sodium Chloride IV 4 unit/hr .Q0M ANNIE 4.04 mls/hr Titration Protocol Per Protocol Piperacillin Sod/Tazobactam 50 mls @ 12.5 mls/hr 04/19/21 12:00 04/20/21 13:54 Sod 3.375 gm/ Sodium Chloride IV 12.5 mls/hr Q12H ANNIE Administration Protocol Dextrose/Sodium Chloride 1,000 mls @ 100 mls/hr 04/19/21 13:45 04/20/21 11:23 Dextrose 5%-Sod Chloride 0.45% IV 100 mls/hr .Q10H ANNIE Administration Norepinephrine Bitartrate 4 mg 254 mls @ 0 mls/hr 04/20/21 10:30 04/20/21 11:04 / Dextrose IV 8 mcg/min .Q0M ANNIE 30.48 mls/hr Administration Protocol Per Protocol Heparin Sodium/Sodium Chloride 25,000 unit in 500 mls @ 0 mls/hr 04/20/21 14:00 04/20/21 15:35 Heparin Drip IV 17 unit/kg/hr .Q0M ANNIE 20.73 mls/hr Administration Protocol Per Protocol Morphine Sulfate 2 mg 04/19/21 11:57 04/20/21 08:41 Morphine 4 Mg/Ml Sdv 1 Ml IVP 2 mg Q4H PRN Administration SEVERE PAIN Ondansetron HCl 4 mg 04/19/21 02:25 04/20/21 12:06 Ondansetron 2 Mg/Ml Sdv 2 Ml IVP 4 mg Q8H PRN Administration vomiting, or N/V if npo PFSH Acute PFSH: Medical History No pertinent family history Surgical History No pertinent past surgical history Family History Father Cancer Social History Smoking and tobacco status: never smoked Alcohol intake: never History of recent travel: No Female Reproductive History: Date of last menstrual period: 04/09/21 Vitals/I&O/Wt Last Vital Signs Temp 98.9 F 04/20/21 07:16 Pulse 114 H 04/20/21 15:24 Resp 32 H 04/20/21 15:23 BP 120/78 04/20/21 12:16 Pulse Ox 94 04/20/21 15:24 04/20/21 04/20/21 04/20/21 06:59 14:59 22:59 Intake Total 2185.417 / 3515.969 1124.437 / 8569.641 1660 / 3374.437 Balance 2185.417 / 3465.969 1124.437 / 3150.482 1559 / 3374.437 Weight last 48 hrs Weight 134 lb 6.4 oz Weight 134 lb 6.4 oz Physical Exam Narrative: EXAM NARRATIVE: General: Young female, alert, appears anxious-in mild to moderate respiratory distress HEENT: conj clear, EOMI, PERRL, mmm, Neck: supple, no meningismus Heme: no cervical LAP Pulmonary: Bilateral diffuse coarse crackles Cardiovascular: rrr, nl s1s2, no mrg Abdomen: soft, nt, nd, no r/g, bs+ Extremities: pulses +, no edema, no c/c : no CVA tenderness Skin: intact, no rash MSK: no back or neck pain Neurologic: grossly intact Urinary Catheter Management: Carroll: Cath Placed During This Visit: yes Reason for Continuing Indwelling Catheter: Accurate Measurement of Urinary Output in Critically Ill Patients Urinary Catheter Date of Insertion: 04/19/21 Urinary Catheter Time of Insertion: 01:00 Data : 04/20/21 06:21 04/20/21 16:45 Other Labs: Radiology Impressions Abdomen/Pelvis CT 04/18/21 23:01 IMPRESSION: 1. Hazy bilateral pulmonary opacities which are consistent with COVID-19. 2. Acute pancreatitis. 3. Small amount of gas in the urinary bladder which may be secondary to recent manipulation or infection. Abdomen Ultrasound 04/19/21 02:25 IMPRESSION: 1. Cholelithiasis. Chest CT 04/19/21 02:25 IMPRESSION: 1. Nonspecific gallbladder distention. No calcified stones. 2. Mild retroperitoneal stranding about the pancreas, correlate with pancreatic enzymes. 3. Bilateral pulmonary infiltrates which may be seen with atypical pneumonia. Head CT 04/19/21 02:25 IMPRESSION: 1. No acute infarct or hemorrhage. 2. No calvarial or skull base fracture. 3. Paranasal sinus mucosal thickening. Chest X-Ray 04/20/21 13:29 IMPRESSION: Possibly the lung opacities have decreased in density which would imply resolving which would be more compatible with a non pneumonitis etiology. Laboratory Results WBC 15.3 10^3/uL (4.0-10.0) H 04/20/21 06:21 RBC 3.21 10^6/uL (4.1-5.3) L 04/20/21 06:21 Hgb 9.7 g/dL (11.5-15.3) L 04/20/21 06:21 Hct 29.0 % (37.0-47.0) L 04/20/21 06:21 MCV 90.3 fl (81-99) 04/20/21 06:21 MCH 30.2 pg (28.0-34.0) 04/20/21 06:21 MCHC 33.4 g/dL (30.0-36.0) 04/20/21 06:21 RDW 13.4 % (12.1-15.1) 04/20/21 06:21 Plt Count 215 10^3/cmm (130-400) 04/20/21 06:21 MPV 12.3 fL (7.4-10.4) H 04/20/21 06:21 Neut % (Auto) 87.1 % 04/20/21 06:21 Lymph % (Auto) 5.1 % 04/20/21 06:21 Wayne % (Auto) 5.9 % 04/20/21 06:21 Eos % (Auto) 0.0 % 04/20/21 06:21 Baso % (Auto) 0.1 % 04/20/21 06:21 Neut # (Auto) 13.35 10^3/uL (1.8-7.7) H 04/20/21 06:21 Lymph # (Auto) 0.8 10^3/uL (0.8-4.8) 04/20/21 06:21 Wayne # (Auto) 0.9 10^3/uL (0.2-0.9) 04/20/21 06:21 Eos # (Auto) 0.0 10^3/uL (0.0-0.8) 04/20/21 06:21 Baso # (Auto) 0.0 10^3/uL (0.0-0.1) 04/20/21 06:21 Nucleated RBC % (auto) 0 % 04/20/21 06:21 Nucleated RBCs # 0.0 /100WBC 04/20/21 06:21 PT 16.40 SECONDS (12.1-14.9) H 04/19/21 03:00 INR 1.28 (0.8-1.2) H 04/19/21 03:00 APTT 36.3 SECONDS (23.9-36.7) D 04/20/21 19:44 Fibrinogen 310 mg/dL (174-498) 04/19/21 03:00 Fibrin Degrad Products Pos, 10-40 ug/mL (NEG) H 04/19/21 03:00 D-Dimer 2.75 ug/mIFEU (0-0.59) H 04/19/21 03:00 Specimen Type Arterial 04/20/21 14:05 Sample Site Radial, right 04/20/21 14:05 ABG pH 7.32 (7.35-7.45) L 04/20/21 14:05 ABG pCO2 51.6 mmHg (35-45) H 04/20/21 14:05 ABG pO2 94.2 mmHg (80.0-100.0) 04/20/21 14:05 ABG HCO3 26.4 mmol/L (22-26) H 04/20/21 14:05 ABG O2 Saturation 96.7 04/20/21 14:05 ABG Base Excess -0.3 mmol/L (-2.0-2.0) 04/20/21 14:05 Dennis Test Pos 04/20/21 14:05 A-a O2 Gradient 72.0 mmHg (5-10) H 04/20/21 14:05 Hematocrit 33.0 % (37-47) L 04/20/21 14:05 Hgb O2 Saturation 96.3 % (95-100) 04/20/21 14:05 Carboxyhemoglobin 0.2 %THgb (0.4-20.1) L 04/20/21 14:05 Methemoglobin 0.2 % (0.4-1.5) L 04/20/21 14:05 Total Hemoglobin 10.8 g/dL (12-16) L 04/20/21 14:05 Sodium 138.0 mmol/L (131-143) 04/20/21 14:05 Potassium 3.8 mmol/L (3.5-5.0) 04/20/21 14:05 Glucose 87.0 mg/dL (70-115) 04/20/21 14:05 Ionized Calcium 1.0 mmol/L (1.1-1.4) L 04/20/21 14:05 O2 Delivery Device Bipap 04/20/21 14:05 FiO2 100.0 % 04/20/21 14:05 Business Development Officer ID Bd 04/20/21 14:05 Sodium 134 mmol/L (136-145) L 04/20/21 16:45 Potassium 3.7 mmol/L (3.5-5.1) 04/20/21 16:45 Chloride 97 mmol/L (98-107) L 04/20/21 16:45 Carbon Dioxide 14 mmol/L (22-29) L 04/20/21 16:45 Anion Gap 26.7 (5-19) H 04/20/21 16:45 BUN 25 mg/dL (6-20) H 04/20/21 16:45 Creatinine 4.6 mg/dL (0.5-0.9) H 04/20/21 16:45 GFR Calculation 10.6 mL/min (90-130) L 04/20/21 16:45 Glucose 72 mg/dL (65-115) 04/20/21 16:45 POC Glucose 70 mg/dL (70-110) 04/20/21 20:51 Estimat Average Glucose 134 04/18/21 22:48 Hemoglobin A1c 6.3 % (4.0-6.0) H 04/18/21 22:48 Calculated Osmolality 281 mOsm/kg (285-295) L 04/20/21 16:45 Lactic Acid 5.1 mmol/L (0.5-2.2) H* 04/20/21 03:20 Lactic Acid (Sepsis) 4.7 mmol/L (0.5-2.2) H* 04/20/21 06:47 Uric Acid 12.0 mg/dL (2.4-5.7) H 04/20/21 09:20 Calcium 7.3 mg/dL (8.5-10.5) L 04/20/21 16:45 Phosphorus 6.4 mg/dL (2.5-4.5) H 04/19/21 19:05 Magnesium 1.7 mg/dL (1.7-2.3) 04/19/21 19:05 Total Bilirubin 1.2 mg/dL (0.15-1.2) 04/20/21 03:20 GGT 108 U/L (5-36) H 04/19/21 03:00 AST 36 U/L (0-32) H 04/20/21 03:20 ALT 28 U/L (0-33) 04/20/21 03:20 Alkaline Phosphatase 123 IU/L (35-105) H 04/20/21 03:20 Creatine Kinase 79 U/L (26-192) 04/19/21 03:00 Troponin T Baseline 31 ng/L (0-10) H 04/20/21 16:45 Troponin T 120 Minute 31.12 ng/L (0-10) H 04/20/21 19:44 Delta Troponin T 0.12 ABS# (0-10) 04/20/21 19:44 Troponin T Hi Sens 6Hr 28.32 ng/L (0-10) H 04/19/21 19:05 Troponin T Hi Sens 6Hr Delta Not Reportable 04/19/21 19:05 C-Reactive Protein 6.3 mg/L (0.0-4.9) H 04/19/21 03:00 Total Protein 4.9 g/dL (6.6-8.7) L 04/20/21 03:20 Albumin 2.7 g/dL (3.5-5.2) L 04/20/21 03:20 Globulin 2.2 g/dL (1.3-4.6) 04/20/21 03:20 Triglycerides 752 mg/dL (0-150) H 04/20/21 16:45 Cholesterol 322 mg/dL (0-200) H 04/19/21 03:00 LDL Cholesterol Direct 36 mg/dL (0-100) 04/20/21 16:45 LDL Cholesterol, Calc Not Reportable 04/19/21 03:00 HDL Cholesterol 12 mg/dL (60-100) L 04/19/21 03:00 LDL/HDL Ratio Not Reportable 04/19/21 03:00 Cholesterol/HDL Ratio 26.83 mg/dL (0.0-4.40) H 04/19/21 03:00 Lipase 203 U/L (13-60) H 04/19/21 19:05 Procalcitonin 0.31 ng/mL (0-0.5) 04/19/21 03:00 TSH 1.02 uIU/mL (0.27-4.20) 04/19/21 03:00 HCG, Qual Negative (Negative) 04/18/21 22:48 Urine Color Yellow (Yellow) 04/18/21 23:19 Urine Appearance Clear (CLEAR) 04/18/21 23:19 Urine pH 5 (5-7) 04/18/21 23:19 Ur Specific Fithian 1.020 (1.005-1.030) 04/18/21 23:19 Urine Protein 3+ (Negative) H 04/18/21 23:19 Urine Glucose (UA) 1+ (Normal) H 04/18/21 23:19 Urine Ketones 1+ (Negative) H 04/18/21 23:19 Urine Blood 2+ (Negative) H 04/18/21 23:19 Urine Nitrate Negative (Negative) 04/18/21 23:19 Urine Bilirubin 1+ (Negative) H 04/18/21 23:19 Urine Urobilinogen 1 mg/dL (Negative) H 04/18/21 23:19 Ur Leukocyte Esterase Negative (Negative) 04/18/21 23:19 Urine RBC 5-10 /hpf (0-2) H 04/18/21 23:19 Urine WBC 0-4 /hpf (0-5) H 04/18/21 23:19 Ur Eosinophil Smear 0 (0-0) 04/19/21 05:35 Ur Squamous Epith Cells 10-15 /hpf (0-5) H 04/18/21 23:19 Amorphous Sediment 3+ /hpf 04/18/21 23:19 Urine Bacteria 2+ /hpf (NONE) H 04/18/21 23:19 Urine Eosinophils No eosinophils seen 04/19/21 05:35 Ur Random Sodium 57 mmol/L 04/19/21 05:35 Ur Random Potassium 27 mmol/L 04/19/21 05:35 Ur Random Chloride 50 mmol/L 04/19/21 05:35 Urine Creatinine 139 mg/dL (28-217) 04/19/21 05:35 Vancomycin Trough 20.4 ug/mL (10-15) H 04/20/21 03:20 Salicylates < 0.3 mg/dL (3-10) L 04/19/21 03:00 Acetaminophen < 5.0 ug/mL (10-30) L 04/19/21 03:00 Ethyl Alcohol < 10 mg/dL (0-10) 04/19/21 03:00 Urine Ethyl Alcohol Cancelled 04/19/21 05:35 Serum Ketones Negative (Negative) 04/20/21 19:44 Coronavirus 229E (PCR) Not detected (NOT DETECT) 04/19/21 05:35 Hepatitis A IgM Ab Non-reactive (Nonreactive) 04/19/21 03:00 Hep Bs Antigen Non-reactive (Nonreactive) 04/20/21 03:20 Hep Bs Antibody 3.5 (11.5-1000) L 04/20/21 03:20 Hep B Core IgM Ab Non-reactive (Nonreactive) 04/19/21 03:00 Hepatitis C Antibody Non-reactive (Nonreactive) 04/20/21 03:20 HIV 1&2 Ab & HIV 1 Ag Non-reactive (Non-Reactiv) 04/19/21 03:00 HIV 1&2 Antibody Non-reactive (Non-Reactiv) 04/19/21 03:00 Influenza Type A Ag Negative (Negative) 04/19/21 05:35 Influenza Type B Ag Negative (Negative) 04/19/21 05:35 SARS-CoV-2 (PCR) Detected (NOT DETECT) A 04/19/21 05:35 SARS-CoV-2 Ag (Rapid) Negative (Negative) 04/18/21 21:49 Micro: Microbiology 04/19/21 17:30 MRSA Culture - Final Nose 04/19/21 05:35 Urine Culture - Preliminary Urine Catheterized 04/18/21 21:49 Blood Culture - Preliminary Blood NEGATIVE TO DATE 04/18/21 22:07 Blood Culture - Preliminary Blood NEGATIVE TO DATE 04/19/21 05:35 MRSA Culture - Final Nose A&P Assessment and plan (1) Acute respiratory distress syndrome (ARDS) due to 2019 novel coronavirus: Status: Acute (2) COVID: Status: Acute (3) Increased anion gap metabolic acidosis: Status: Acute (4) Acute encephalopathy: Status: Acute (5) Acute pancreatitis: Status: Acute (6) Mild mental handicap: Status: Acute (7) GODFREY (generalized anxiety disorder): Status: Acute (8) Essential hypertension: Status: Acute (9) Hypertriglyceridemia: Status: Acute (10) Leukocytosis: # Acute hypoxic respiratory failure in patient with COVID-19 pneumonia and fluid overload secondary to TONY -possible ARDS and patient with COVID-19 PCR positive/pancreatitis #TNOY due to hypovolemia #Hypovolemic shock secondary to pancreatitis-currently on low-dose pressors #Pancreatitis secondary to hypertriglyceridemia #Generalized anxiety disorder #Leukocytosis-secondary to dehydration versus possible aspiration pneumonia - with h/o vomiting -Currently placed on BiPAP 10/4 FiO2 80%-saturating 95% -Started on Precedex for anxiety -Chest x-ray showed bilateral diffuse infiltrates-fluid overload vs ARDS secondary to pancreatitis/COVID-19 -On remdesivir and dexamethasone -Also covered with Zosyn for possible aspiration pneumonia -Continue monitoring respiratory status and saturations closely -Chest c-[id number]-[id number] improved with hemodialysis today-renal on board -Sudden episode of hypoxia requiring sudden improvement in FiO2 from 40% to 100% and self resolved bradycardia-suspect PE-started on heparin drip-monitor PTT -CT angiogram prior to next hemodialysis session to rule out PE; bilateral venous Doppler negative for DVT -Triglycerides still 700-continue insulin drip until triglycerides < 500; if continues to stay <1000, and patient starts eating we will plan to switch to subcutaneous insulin; less likely DKA as A1c 6.3 and patient was nondiabetic -Ketonemia could be secondary to vomitings-resolved -Chest x-ray showing infiltrates with leukocytosis so far procalcitonin is low MRSA nares negative -Currently n.p.o. as she is requiring BiPAP being treated for pancreatitisreceiving D5 as she is on insulin for hypertriglyceridemia, monitor FSBS closely and adjust IV insulin accordingly -Patient's family updated -Prognosis guarded Recommendations conveyed to hospitalist, RN, RT taking care of the patient Status: Acute (11) Aspiration pneumonia: Status: Acute (12) Hypovolemic shock: Status: Acute Consult Attestations Medical Necessity Statement: Patient with acute pancreatitis secondary to hypertriglyceridemia on IV insulin drip-developed hypovolemic shock leading to TONY, and ARDS secondary to pancreatitis/COVID-19 pneumonia-requiring high FiO2 requirement-need close monitoring for impending respiratory failure Time Spent in Patient Care: Greater than 35 minutes (>than 50% of time spent in counselling and/or direct pt care on unit). Critical Care Time: The high probability of a clinically significant, sudden or life threatening deterioration of the patient's [neurological, respiratory, cardiac, renal] system(s) required my full and direct attention, intervention and personal management. The critical care time is as shown. This time is in addition to time spent performing any reported procedures but includes the following: [x] Data and vital sign review and interpretation [x] Patient assessment, examination and intervention [x] Documentation [x] Medication orders and management Coding Level of Care Code Established Pt Acute Catalogue Clerk for g Fwd Patient Type Established Diagnoses COVID U07.1 Increased anion gap metabolic acidosis E87.2 Acute encephalopathy G93.40 Acute pancreatitis K85.90 Mild mental handicap F70 GODFREY (generalized anxiety disorder) F41.1 Essential hypertension I10 Hypertriglyceridemia E78.1 Leukocytosis D72.829 Acute respiratory distress syndrome (ARDS) due to 2019 novel coronavirus U07.1; J80 Aspiration pneumonia J69.0 Hypovolemic shock R57.1 Time Spent (min) 90
[2021-04-20 17:17] LABS: Glucose Point of Care 93 mg/dL (70-110)
[2021-04-20 17:33] LABS: Partial Thromboplastin Time 186.3 SECONDS (23.9-36.7); Troponin(5th) Baseline 31 ng/L (0-10)
[2021-04-20] MEDS: dexmedeTOMIDine 0.9 % NaCL 400 MCG/100 ML PREMIX IV (17:41)
[2021-04-20 18:43] LABS: Blood Urea Nitrogen 25 mg/dL (6-20); Calcium 7.3 mg/dL (8.5-10.5); Carbon Dioxide 14 mmol/L (22-29); Chloride 97 mmol/L (98-107); Glomerular Filtration Rate 10.6 mL/min (90-130); Glucose 72 mg/dL (65-115); Osmolality Calculated 281 mOsm/kg (285-295); Sodium 134 mmol/L (136-145)
[2021-04-20 18:43] LABS: Glucose Point of Care 78 mg/dL (70-110)
[2021-04-20 18:44] LABS: Anion Gap 26.7 (5-19); Potassium 3.7 mmol/L (3.5-5.1); Triglycerides 752 mg/dL (0-150)
[2021-04-20 18:56] LABS: LDL Cholesterol Direct 36 mg/dL (0-100)
[2021-04-20 19:21] LABS: Glucose Point of Care 71 mg/dL (70-110)
[2021-04-20] MEDS: heparin, porcine 1,000 unit/mL INJ 10 mL HE (19:44)
[2021-04-20 20:14] LABS: Partial Thromboplastin Time 36.3 SECONDS (23.9-36.7)
[2021-04-20 20:28] LABS: Ketone (Acetest) Serum Negative (Negative)
[2021-04-20 20:41] LABS: Troponin 5 2HR 31.12 ng/L (0-10)
[2021-04-20 20:49] LABS: Troponin 5 2HR Delta 0.12 ABS# (0-10)
[2021-04-20 20:55] LABS: Glucose Point of Care 70 mg/dL (70-110)
[2021-04-20] MEDS: heparin 5,000 unit/mL INJ 1 mL 2500 UNIT IVP (21:00)
[2021-04-20 23:00] LABS: Glucose Point of Care 103 mg/dL (70-110)
--- NOTE | 2021-04-20 23:25 | PM.ACPR ---
Acute Procedures Central Line Placement: Right Femoral: Time out performed: Yes Patient placed on monitor/pulse ox: Yes MD prep: mask, gown and gloves Central line prep: Chlorhexidine scrub and sterile drapes applied Local anesthesia used: lidocaine 1% Amount of anesthesia used (ml): 5 Ultrasound used for placement: Yes Central line lumen inserted: triple Patient tolerated procedure: well and no complications Complications: none
[2021-04-21] VITALS (106 sets, daily range): BP systolic 86–154; BP diastolic 44–94; PULSE 107–139; RESP 16–38; TEMP 36.4–37.3; O2SAT 1–98
--- NOTE | 2021-04-21 | USCV_ITS ---
Transthoracic Echo Precious Mckeon Age: 40 Gender: F : 1980 Exam Date: 04/21/2021 12:06 Ordering Phys: Paresh Reese MD Technologist: ROBERTH Exam Location: [facility] [place] Indication: Cardiomyopathy BP: 139 / 77 HR: 122 Rhythm: Atrial fibrillation Technical Quality: Adequate MEASUREMENTS (Male / Female) Normal Values 2D ECHO LV Diastolic Diameter PLAX 2.1 cm 4.2 - 5.9 / 3.9 - 5.3 cm LV Systolic Diameter PLAX 1.6 cm IVS Diastolic Thickness 1.0 cm 0.6 - 1.0 / 0.6 - 0.9 cm IVS Systolic Thickness 1.1 cm LVPW Diastolic Thickness 1.1 cm 0.6 - 1.0 / 0.6 - 0.9 cm LVPW Systolic Thickness 1.0 cm LVOT Diameter 2.0 cm LV Ejection Fraction 2D Teich 50.3 % LV Ejection Fraction MOD 2C 37.3 % LV Ejection Fraction 2C AL 37.7 % LA Diameter 2.1 cm LA Width 2.8 cm LA Height 2.9 cm Aorta at Sinotubular Diameter 2.2 cm M-MODE Aortic Annulus Diameter 2.4 cm LA Ao Ratio MM 0.8 MV E Point Septal Separation 0.8 cm DOPPLER AV Peak Velocity 77.0 cm/s LVOT Peak Velocity 85.0 cm/s AV Area Cont Eq vti 2.4 cm squared AV Area Cont Eq pk 3.4 cm squared MV Peak Velocity 78.0 cm/s MV Area PHT 3.9 cm squared Mitral E to A Ratio 1.1 MV E' Velocity 76.0 cm/s TR Peak Velocity 117.6 cm/s TR Peak Gradient 5.5 mmHg TR Mean Velocity 36.1 cm/s TR Mean Gradient 0.6 mmHg TR Velocity Time Integral 9.5 cm TV Peak E Velocity 62.0 cm/s Right Atrial Pressure 3.0 mmHg Pulmonary Artery Systolic Pressu 8.5 mmHg PV Peak Velocity 94.0 cm/s RV Acceleration Time 0.1 s RV Ejection Time 0.4 s RV AcT/ET 0.2 FINDINGS Left Ventricle Technically limited quality echocardiogram because of poor ultrasonic windows and tachycardia. LV systolic function is grossly normal . Diastolic function is indeterminate because of tachycardia. Right Ventricle RV is normal in size Right Atrium Normal in size Left Atrium Normal in size Mitral Valve Grossly normal Aortic Valve Grossly normal Tricuspid Valve Not well-visualized Pulmonic Valve Not well-visualized Pericardium Grossly normal Aorta Grossly normal CONCLUSIONS This is a limited quality echocardiogram because of poor ultrasonic windows and tachycardia. LV systolic function is grossly normal Diastolic function is indeterminate. Pelvic structures are not well seen however no gross abnormalities. No comparison studies are available. Ino East MD (Electronically Signed) Final Date: 22 April 2021 11:33 S
[2021-04-21] MEDS: LORazepam 2 mg/mL INJ 1 mL IVP (00:01)
[2021-04-21] MEDS: succinylcholine 20 mg/mL SDV 10mL 100 MG IVP (01:05)
[2021-04-21] MEDS: midazolam 1 mg/mL INJ 2 mL 2 MG IVP (01:05)
--- NOTE | 2021-04-21 01:21 | XR_ITS ---
WS: [id number] XR chest 1V portable [id number] REASON FOR EXAM: intubation FINDINGS: Endotracheal tube properly positioned just above the tracey. Nasogastric tube beyond the gastric fundus. Right jugular central venous line remains in proper posi tion. Compared to the examinations of the prior day there is some clearing of the central lung opacities as sociated with more confluent opacities peripherally in the lungs. No other significant interval change or new finding. XR/XR chest 1V portable [id number] IMPRESSION: Diffuse bilateral pulmonary opacities with some clearing centrally with more co nfluence peripherally.
[2021-04-21] MEDS: propofol 1,000 MG/100 ML INJ 14.63 MG IV ×3 (01:30→13:39)
[2021-04-21] MEDS: LORazepam 2 mg/mL INJ 1 mL (01:44)
[2021-04-21] MEDS: ipratropium-albuterol 3 mL Neb INHALATION ×4 (03:41→20:38)
[2021-04-21 04:19] LABS: Partial Thromboplastin Time 64.1 SECONDS (23.9-36.7)
[2021-04-21 04:28] LABS: D Dimer 6.68 ug/mIFEU (0-0.59)
[2021-04-21 04:35] LABS: Troponin 5 6HR 27.06 ng/L (0-10)
[2021-04-21 04:36] LABS: Calcium 6.7 mg/dL (8.5-10.5); Troponin 5 6HR Delta -3.94 ng/L (0-12)
[2021-04-21 04:37] LABS: Alanine Aminotransferase 24 U/L (0-33); Albumin Level 2.5 g/dL (3.5-5.2); Alkaline Phosphatase 214 IU/L (35-105); Aspartate Amino Transferase 38 U/L (0-32); Blood Urea Nitrogen 29 mg/dL (6-20); Calcium 6.1 mg/dL (8.5-10.5); Carbon Dioxide 21 mmol/L (22-29); Chloride 93 mmol/L (98-107); Globulin 2.7 g/dL (1.3-4.6); Glucose 180 mg/dL (65-115); Lipase 21 U/L (13-60); Osmolality Calculated 282 mOsm/kg (285-295); Sodium 131 mmol/L (136-145); Total Protein 5.2 g/dL (6.6-8.7); Triglycerides 748 mg/dL (0-150)
[2021-04-21 04:39] LABS: Anion Gap 20.5 (5-19); Potassium 3.5 mmol/L (3.5-5.1)
[2021-04-21 04:43] LABS: Parathyroid Hormone 274.7 pg/mL (15-65)
[2021-04-21 04:55] LABS: LDL Cholesterol Direct 27 mg/dL (0-100)
[2021-04-21] MEDS: remdesivir 100 MG in sodium chloride 0.9% (100 ml) 100 ML IV (05:04)
[2021-04-21 05:11] LABS: 25 Hydroxy Vitamin D 7 ng/mL (30-100)
--- NOTE | 2021-04-21 05:20 | PC.NURSE ---
Pt continued to have increased work of breathing resulting in the need for intubation. Pt was intubated at 0106 with 20 mg etomidate, 100 succ, and 2 versed. Pt has ETT 8 at 23 cm at lips. Bilateral breath sounds and CO2 color change present. Pt was then placed on sedation with propofol, versed, and fentanyl. Pt required additional vascular access therefore a CVC was placed at 0330 in the right femoral.
[2021-04-21 05:51] LABS: ABG PCO2 48.1 mmHg (35-45); ABG PH Result 7.31 (7.35-7.45); Arterial Blood Gas Hematocrit 28.9 % (37-47); Blood Gas Allen Test Pos; Blood Gas Sample Site Radial, right; Blood Gas Sample Type Arterial; Blood Gas Tidal Volume 0.33; HCO3 ABG 24.3 mmol/L (22-26); Oxygen Device VENT; PO2 ABG 47.5 mmHg (80.0-100.0)
[2021-04-21 06:37] LABS: ABG PCO2 38.2 mmHg (35-45); Arterial Blood Gas Hematocrit 25.5 % (37-47); Base Excess ABG -1.3 mmol/L (-2.0-2.0); Blood Gas Allen Test Pos; Blood Gas Sample Site Radial, left; Blood Gas Sample Type Arterial; Blood Gas Tidal Volume 0.38; HCO3 ABG 23.4 mmol/L (22-26); Oxygen Device VENT; PO2 ABG 59.9 mmHg (80.0-100.0)
[2021-04-21] MEDS: dextrose 5%-sod chloride 0.45% 1,000 ML 100 ML IV ×2 (06:55→17:53)
--- NOTE | 2021-04-21 07:34 | P.PN_ITS ---
Subjective Subjective: Interval history: intubated, sedated, low dose levophed Medications: Reviewed: Yes Medication Review Details: Current Medications Acetaminophen (Acetaminophen 325 Mg Tablet) 650 mg PO Q6H PRN PRN Reason: Mild/Mod Pain Or Temp >/= 101 Albuterol/Ipratropium (Ipratropium-Albuterol 3 Ml Neb) 3 ml INHALATION Q6H.RESPIRATORY ANNIE Last Admin: 04/21/21 03:41 Dose: 3 ml Documented by: Dexamethasone (Dexamethasone 10 Mg/Ml Inj) 6 mg IVP Q24H ANNIE Last Admin: 04/20/21 11:17 Dose: 6 mg Documented by: Dextrose (Dextrose 50% Syringe 50 Ml) 25 ml IVP ONCE PRN; Protocol PRN Reason: hypoglycemia protocol Last Admin: 04/20/21 00:25 Dose: 25 ml Documented by: Dextrose (Dextrose 50% Syringe 50 Ml) 50 ml IVP PRN PRN; Protocol PRN Reason: hypoglycemia protocol Last Admin: 04/19/21 20:35 Dose: 50 ml Documented by: Famotidine (Famotidine 20 Mg/2 Ml Inj) 20 mg IVP Q12H [facility] Last Admin: 04/21/21 04:54 Dose: Not Given Documented by: Glucagon (Glucagon 1 Mg/Ml Inj 1 Ml) 1 mg IM ONCE PRN; Protocol PRN Reason: Adult Acute Hypoglycemia Prot Heparin Sodium (Porcine) (Heparin 5,000 Unit/Ml Inj 1 Ml) 5,000 unit SUBCUT Q12H [facility] Last Admin: 04/21/21 04:54 Dose: Not Given Documented by: Dextrose (D5w) 500 mls @ 100 mls/hr IV ONCE PRN; Protocol PRN Reason: Adult Acute Hypoglycemia Prot Last Infusion: 04/20/21 18:12 Dose: Infused Documented by: Insulin Human Regular 250 unit (/ Sodium Chloride) 252.5 mls @ 0 mls/hr IV .Q0M [facility]; Protocol Last Titration: 04/20/21 09:25 Dose: 4 unit/hr, 4.04 mls/hr Documented by: Piperacillin Sod/Tazobactam (Sod 3.375 gm/ Sodium Chloride) 50 mls @ 12.5 mls/hr IV Q12H [facility]; Protocol Last Admin: 04/21/21 04:53 Dose: Not Given Documented by: Dextrose/Sodium Chloride (Dextrose 5%-Sod Chloride 0.45%) 1,000 mls @ 100 mls/hr IV .Q10H ANNIE Last Admin: 04/21/21 06:55 Dose: 100 mls/hr Documented by: Albumin Human (Albumin) 12.5 gm in 50 mls @ 60 mls/hr IV PRN PRN PRN Reason: Hypotension and/or symptomatic Norepinephrine Bitartrate 4 mg (/ Dextrose) 254 mls @ 0 mls/hr IV .Q0M ANNIE; Protocol Last Admin: 04/21/21 02:06 Dose: 6 mcg/min, 22.86 mls/hr Documented by: Remdesivir 100 mg/ Sodium (Chloride) 100 mls @ 100 mls/hr IV Q24H ANNIE Stop: 04/24/21 06:59 Last Infusion: 04/21/21 06:04 Dose: Infused Documented by: Norepinephrine Bitartrate 4 mg (/ Dextrose) 254 mls @ 0 mls/hr IV .Q0M ANNIE; Protocol Heparin Sodium/Sodium Chloride (Heparin Drip) 25,000 unit in 500 mls @ 0 mls/hr IV .Q0M ANNIE; Protocol Last Titration: 04/20/21 21:03 Dose: 19 unit/kg/hr, 23.17 mls/hr Documented by: dexmedeTOMIDine 0.9 % NaCL (Precedex) 400 mcg in 100 mls @ 0 mls/hr IV .Q0M ANNIE; Protocol Last Titration: 04/21/21 01:15 Dose: 0 mcg/kg/hr, 0 mls/hr Documented by: Albumin Human (Albumin) 12.5 gm in 50 mls @ 60 mls/hr IV PRN PRN PRN Reason: Hypotension and/or symptomatic Propofol (Diprivan) 1,000 mg in 100 mls @ 0 mls/hr IV .Q0M ANNIE; Protocol Last Admin: 04/21/21 01:30 Dose: 40 mcg/kg/min, 14.63 mls/hr Documented by: Fentanyl 2,500 mcg/ Sodium (Chloride) 250 mls @ 0 mls/hr IV .Q0M ANNIE; Protocol Last Admin: 04/21/21 01:30 Dose: 25 mcg/hr, 2.5 mls/hr Documented by: Midazolam HCl 100 mg/ Sodium (Chloride) 100 mls @ 0 mls/hr IV .Q0M ANNIE; Protocol Last Admin: 04/21/21 01:30 Dose: 4 mg/hr, 4 mls/hr Documented by: Lorazepam (Lorazepam 2 Mg/Ml Inj 1 Ml) 2 mg IVP Q4H PRN PRN Reason: ANXIETY Last Admin: 04/21/21 00:01 Dose: 2 mg Documented by: Morphine Sulfate (Morphine 4 Mg/Ml Sdv 1 Ml) 2 mg IVP Q4H PRN PRN Reason: SEVERE PAIN Last Admin: 04/20/21 19:18 Dose: 2 mg Documented by: Naloxone HCl (Naloxone 0.4 Mg/Ml Sdv) 0.1 mg IVP Q2M PRN PRN Reason: OPIATERV Ondansetron HCl (Ondansetron 2 Mg/Ml Sdv 2 Ml) 4 mg IVP Q8H PRN PRN Reason: vomiting, or N/V if npo Last Admin: 04/20/21 19:18 Dose: 4 mg Documented by: Vitals/I&O/Wt Last Vital Signs Temp 98.6 F 04/21/21 05:00 Pulse 130 H 04/21/21 06:00 Resp 20 H 04/21/21 06:12 BP 139/77 04/21/21 05:30 Pulse Ox 94 04/21/21 06:12 04/20/21 04/21/21 04/21/21 22:59 06:59 14:59 Intake Total 4182.324 / 5306.761 1109.834 / 6416.595 Output Total 25 / 25 Balance 4157.324 / 5281.761 1109.834 / 6391.595 Weight last 48 hrs Weight 60.963 kg Physical Exam Narrative: EXAM NARRATIVE: intubated, levo @2 vent fio2 55%, TV 380, peep 5, rr 20 vs noted. hr 120, rr 25, 103/5 bp heent- nc/at, eomi neck obese lungs crackles heart- tachycardic abd soft, distended, + bs ext edema neuro- sedated rt nrck dialysis catheter Urinary Catheter Management: Carroll: Cath Placed During This Visit: yes Reason for Continuing Indwelling Catheter: Accurate Measurement of Urinary Output in Critically Ill Patients Urinary Catheter Date of Insertion: 04/19/21 Urinary Catheter Time of Insertion: 01:00 Data : 04/20/21 06:21 04/21/21 03:50 Micro: Microbiology 04/19/21 17:30 MRSA Culture - Final Nose 04/19/21 05:35 Urine Culture - Preliminary Urine Catheterized A&P Assessment and plan (1) Acute kidney injury: 40 yr old female COVID-19+ , hypertriglyceridemia, pancreas inflammation on ct scan, TONY 1. leukocytosis- renal dose antivirals and abx - wbc improved from 27 to 15 2. TONY- ATN/ COVID-nephropathy- s/p HD and SUF yesterday- -current ph 7.4, k 3.5, bun 29, on levo- hold HD today -unless pulm needs fluid removed 3. hyponatremia- from tony 5. hypocalcemia- replete ca and vit d 6. hypertriglyceridemia is improving - TG back to 748- consider plasmapheresis to lower TG seen and examined w/ RN- telehealth visit Status: Acute Plan see above Attestations Medical Necessity Statement*: covid-19+, TONY, VDRF, hypertriglyceridemia, pressors Time Spent in Patient Care: 16 - 35 minutes (>than 50% of time spent in counselling and/or direct pt care on unit) . Coding Level of Care Code Acute Smoke Tester for Thai Perea Diagnoses Acute kidney injury N17.9
[2021-04-21 08:14] LABS: Glucose Point of Care 137 mg/dL (70-110)
[2021-04-21 08:18] LABS: Hematocrit 24.4 % (37.0-47.0); Hemoglobin 8.2 g/dL (11.5-15.3); Mean Corpuscular HGB Conc 33.6 g/dL (30.0-36.0); Mean Corpuscular Hemoglobin 30.8 pg (28.0-34.0); Mean Corpuscular Volume 91.7 fl (81-99); Platelet Count 151 10^3/cmm (130-400); Red Blood Count 2.66 10^6/uL (4.1-5.3); Red Cell Distribution Width 13.7 % (12.1-15.1)
[2021-04-21 08:40] LABS: Slide Review Slide Review Perform
[2021-04-21 08:50] LABS: Absolute Neutrophil 7.2 10^3/cmm (1.4-6.5); Absolute Segmented Neutrophil 3.3 10/cmm (1.6-7.1); Band Neutrophils Absolute 3.9 10^3/cmm (0.0-1.2); Lymphocytes 6 %; Monocytes Absolute 0.1 10^3/cmm (0.1-0.6); Platelet Estimate Normal (Normal); Segmented Neutrophils 41 %; Total Cells Counted 100 (0-100)
[2021-04-21 08:51] LABS: Anisocytosis 1+; Basophilic Stippling Trace; Eosinophils 0 %; Lymphocytes Absolute 0.5 10^3/cmm (1.2-3.4)
--- NOTE | 2021-04-21 08:58 | PC.NUTR ---
When medically appropriate, recommend consideration of TF Glucerna 1.2 starting @ 10 mls/hr and advancing Q8H as tolerated to goal rate of 25 mls/hr, with FWF 100 mls Q4H or per MD discretion, considering D5W @ 100 mls/hr. Details in RD assessment.
[2021-04-21] MEDS: calcium gluconate 0.9% NaCL 1 GM/50 ML PREMIX IV (09:14)
[2021-04-21] MEDS: calcium carbonate 500 mg Chew Tablet 1000 MG PO ×3 (09:14→20:55)
[2021-04-21 09:29] LABS: Glucose Point of Care 136 mg/dL (70-110)
[2021-04-21 10:06] LABS: Glucose Point of Care 145 mg/dL (70-110)
[2021-04-21 10:57] LABS: Glucose Point of Care 148 mg/dL (70-110)
--- NOTE | 2021-04-21 11:27 | PC.RESP ---
RT Shift Note Frequent safety and respiratory rounds continue. Orders completed as indicated. Patient monitored pre and post treatments throughout shift. Patient [Did.] tolerate treatments appropriately. Condition [.DidNotChange]. Patient and/or apparel trimmings sales representative educated on respiratory treatment and medications. Patient and/or apparel trimmings sales representative [unable to comprehend. Will continue to monitor patient progress.
[2021-04-21 11:54] LABS: Triglycerides 804 mg/dL (0-150)
[2021-04-21] MEDS: piperacillin-tazobactam 3.375 GM in sodium chloride 0.9% (plus) 50 ML IV (12:03)
[2021-04-21] MEDS: dexamethasone 10 mg/mL INJ 6 MG IVP (12:04)
[2021-04-21] MEDS: ergocalciferol (vitamin D2) 50,000 Unit Capsule 50000 UNIT PO (12:04)
[2021-04-21 12:06] LABS: LDL Cholesterol Direct 23 mg/dL (0-100)
--- NOTE | 2021-04-21 12:27 | PM.PN ---
Subjective Subjective: Interval history: Overnight events noted Dr. Rahman reported that patient was getting very tachypneic and she vomited while on BiPAP, she was transitioned to heated high flow however she was not able to maintain her O2 saturation at goal, she was extremely tachypneic and anxious, for impending hypoxic respiratory failure she was intubated, central line was also placed Patient was tachypneic, had 1 episode of emesis, concern for aspiration as well Currently on heparin, insulin GTT, Levophed at [address] Benson to do ultrafiltration because of her primary edema presentation Echo is pending FiO2 55%, PEEP 5 Vitals/I&O/Wt Last Vital Signs Temp 98.6 F 04/21/21 05:00 Pulse 117 H 04/21/21 09:08 Resp 20 H 04/21/21 10:45 BP 139/77 04/21/21 05:30 Pulse Ox 94 04/21/21 10:45 04/20/21 04/21/21 04/21/21 22:59 06:59 14:59 Intake Total 4182.324 / 5306.761 1109.834 / 6416.595 92.901 / 92.901 Output Total 25 / 25 Balance 4157.324 / 5281.761 1109.834 / 6391.595 92.901 / 92.901 Physical Exam Narrative: EXAM NARRATIVE: Patient looks fluid overloaded Right femoral central line placed Patient intubated and sedated Currently on insulin and heparin gtt. Levophed at 2 FiO2 55% PEEP 5 Abdomen firm, bowel sounds sluggish Bilateral assisted breath sounds with crackles Urine bag with concentrated urine color Mother at the bedside S1, S2 sinus tachycardia Urinary Catheter Management: Carroll: Cath Placed During This Visit: yes Reason for Continuing Indwelling Catheter: Accurate Measurement of Urinary Output in Critically Ill Patients Urinary Catheter Date of Insertion: 04/19/21 Urinary Catheter Time of Insertion: 01:00 Data : 04/21/21 Unknown 04/21/21 03:50 Micro: Microbiology 04/19/21 05:35 Urine Culture - Final Urine Catheterized 04/19/21 17:30 MRSA Culture - Final Nose A&P Assessment and plan (1) Hypovolemic shock: Status: Acute (2) Aspiration pneumonia: Status: Acute (3) Acute respiratory distress syndrome (ARDS) due to 2019 novel coronavirus: Status: Acute (4) ATN (acute tubular necrosis): Status: Acute (5) COVID: Status: Acute (6) Increased anion gap metabolic acidosis: Status: Acute (7) Acute encephalopathy: Status: Acute (8) Lactic acidosis: Status: Acute (9) Acute kidney injury: Status: Acute (10) Acute pancreatitis: Status: Acute (11) Mild mental handicap: Status: Acute (12) Hypertriglyceridemia: Status: Acute Plan COVID-19 related hypoxic respiratory failure Mechanically ventilated Patient is intubated and sedated, etomidate 20 mg were used with 100 mg of succinylcholine and 2 mg of Versed endotracheal tube size 8 lip by 23 cm She was intubated 04/21/2021 Central line placed 04/21/2021 Currently on heparin gtt. possible PE no signs of DVT Pulmonary edema presentation on x-ray, requested nephrology for ultrafiltration Continue Decadron and remdesivir On minimal vent settings FiO2 55%, PEEP 5 We will follow up with pulmonology Hypertriglyceridemia induced pancreatitis Triglyceride level creeping up again, with higher dose of insulin she was becoming hypoglycemic and now she is fluid overloaded Is a challenging situation Right now we will be cautious in using only 4 units of insulin ideally it is 0.2 units/kg/h Check triglyceride every 12 hours Run D5 with insulin drip Check blood sugar every hour Monitor for signs of necrotic pancreas Sinus tachycardia with pulmonary edema Requested echo Increase in heart rate could be a compensatory mechanism to decrease in stroke volume we will follow up on ejection fraction Rule out stress-induced cardiomyopathy Requested another EKG Aspiration pneumonia Continue Zosyn, MRSA PCR negative Obtain sputum culture Might need bronchiolar lavage if she becomes febrile Full code We will resume tube feeding in next 24 hours Her abdomen is firm, we will keep her on lactulose and senna S regimen DVT prophylaxis suffice with heparin GTT Attestations Medical Necessity Statement*: Continue medical management Time Spent in Patient Care: 20min Critical Care Time: 20min Coding Level of Care Code Acute Gynecology Teacher for g Fwd Diagnoses Hypovolemic shock R57.1 Aspiration pneumonia J69.0 Acute respiratory distress syndrome (ARDS) due to 2019 novel coronavirus U07.1; J80 ATN (acute tubular necrosis) N17.0 COVID U07.1 Increased anion gap metabolic acidosis E87.2 Acute encephalopathy G93.40 Lactic acidosis E87.2 Acute kidney injury N17.9 Acute pancreatitis K85.90 Mild mental handicap F70 Hypertriglyceridemia E78.1
[2021-04-21 13:05] LABS: Glucose Point of Care 123 mg/dL (70-110)
[2021-04-21 13:05] LABS: Glucose Point of Care 124 mg/dL (70-110)
[2021-04-21 13:23] LABS: Creatinine, Random Urine 128 mg/dL (20-275); Protein, Total, Random 727 mg/dL (5-24); Protein/Creatinine Ratio 5680 mg/g creat (21-161)
[2021-04-21 13:29] LABS: Partial Thromboplastin Time 58.2 SECONDS (23.9-36.7)
[2021-04-21] MEDS: famotidine 20 mg/2 mL INJ IVP (13:38)
[2021-04-21 13:41] LABS: ABG PCO2 35.5 mmHg (35-45); ABG PH Result 7.41 (7.35-7.45); Alveolar-Arterial Oxygen Gradi 36.2 mmHg (5-10); Arterial Blood Gas Hematocrit 27.9 % (37-47); Base Excess ABG -1.9 mmol/L (-2.0-2.0); Blood Gas Allen Test Pos; Blood Gas Operator Identificat GD; Blood Gas Sample Site Radial, right; Blood Gas Sample Type Arterial; Blood Gas Tidal Volume 0.35; Carboxyhemoglobin 0.4 %THgb (0.4-20.1); HCO3 ABG 22.4 mmol/L (22-26); Methemoglobin 1.3 % (0.4-1.5); Oxygen Device VENT; Oxygen Saturation ABG 94.7; PO2 ABG 67.6 mmHg (80.0-100.0); Potassium Level - ABG 2.8 mmol/L (3.5-5.0); Total Hemoglobin 9.1 g/dL (12-16)
[2021-04-21 13:44] LABS: Triglycerides 865 mg/dL (0-150)
--- NOTE | 2021-04-21 14:08 | PC.NUTR ---
Received TF consult. Assessed patient this morning and wrote earlier note with recommendations: When medically appropriate, recommend consideration of TF Glucerna 1.2 starting @ 10 mls/hr and advancing Q8H as tolerated to goal rate of 25 mls/hr, with FWF 100 mls Q4H or per MD discretion. Goal rate is low because of additional calories from Diprivan and D5W. Details in RD assessment.
--- NOTE | 2021-04-21 14:20 | P.PNCC_ITS ---
Critical Care Event Note Overnight the patient was Extremely tachypneic, with progressively increasing work of breathing , she also had an episode of vomiting while being on BiPAP and likely had aspiration during that event , she was transitioned to heated high flow oxygen through nasal cannula, augmented with nonrebreather mask, but given the fact she continued to have progressively worsening of her respiratory status, with increased work of breathing, she had to be intubated and placed on mechanical ventilation to avoid impending hypoxic respiratory failure. Patient tolerated the uneventful intubation well Post intubation chest x-ray was done which showed satisfactory placement of ET tube. Right femoral central line was placed, without complications. The high probability of a clinically significant, sudden or life threatening deterioration of the patient's [] system(s) required my full and direct attention, intervention and personal management. The critical care time is as shown. This time is in addition to time spent performing any reported procedures but includes the following: [x] Data and vital sign review and interpretation [x] Patient assessment, examination and intervention [x] Documentation [x] Medication orders and management Critical Care Time Code activated: No Critical Care Time (min): 50 Additional information about critical care time: 50 mins Procedures Central Line Placement^ Right Femoral: Time out performed: Yes Patient placed on monitor/pulse ox: Yes prep: mask, gown and gloves Local anesthesia used: lidocaine 1% Ultrasound used for placement: Yes Central line lumen inserted: triple Patient tolerated procedure: well and no complications Coding Level of Care Code Acute Incoming Freight Clerk for Thai Perea
--- NOTE | 2021-04-21 14:28 | PM.ACPR ---
Acute Procedures Intubation: Time out performed: Yes Sedative: etomidate Mg given: 20 Paralytic: succinylcholine Mg given: 100 Laryngoscope: fiber optic video scope ET tube size: 8 Tube secured depth (cm): 21 Tube secured location: lips Tube placement confirmation: visualized tube passing through cords, equal breath sounds bilaterally, no breath sounds over epigastrium and color change noted Patient tolerated procedure: well Intubation complications: none
[2021-04-21 14:32] LABS: Glucose Point of Care 124 mg/dL (70-110)
[2021-04-21 15:00] LABS: Glucose Point of Care 107 mg/dL (70-110)
--- NOTE | 2021-04-21 15:01 | PC.NURSE ---
Attempted to call family to perform family rounding. No answer. Unable to leave message.
[2021-04-21 15:47] LABS: Glucose Point of Care 107 mg/dL (70-110)
[2021-04-21 16:38] LABS: Glucose Point of Care 90 mg/dL (70-110)
[2021-04-21 17:14] LABS: Glucose Point of Care 90 mg/dL (70-110)
[2021-04-21] MEDS: insulin regular-human 250 UNIT in sodium chloride 0.9% 250 ML 8.08 UNIT IV (17:49)
--- NOTE | 2021-04-21 19:53 | PC.NURSE ---
SHift SUmmary: Uneventful shift. Patient rested in bed thorughout the shift. Received dialysis and had 2,000 mL of fluid removed. Tolerated dialysis well. Lung sounds were significantly improved after dialysis, little to no crackles by end of shift.
[2021-04-21] MEDS: propofol 1,000 MG/100 ML INJ 7.32 MG IV (19:59)
[2021-04-21 20:34] LABS: Partial Thromboplastin Time 103.5 SECONDS (23.9-36.7)
[2021-04-21] MEDS: heparin drip 25,000 UNIT/500 ML PREMIX 19.51 UNIT IV (20:55)
[2021-04-21 22:06] LABS: Glucose Point of Care 100 mg/dL (70-110)
[2021-04-21 22:06] LABS: Glucose Point of Care 74 mg/dL (70-110)
[2021-04-21 22:59] LABS: Glucose Point of Care 105 mg/dL (70-110)
--- NOTE | 2021-04-21 23:35 | P.PN_ITS ---
Subjective Subjective: Interval history: -Patient seen at bedside -Overnight she was intubated for worsening tachypnea and had vomiting while on BiPAP and due to impending respiratory failure on high flow nasal cannula and nonrebreather mask -He received another session of hemodialysis yesterday night -She is scheduled to get another session of ultrafiltration today -Other labs and imaging reviewed Medications: Reviewed: Yes Vitals/I&O/Wt Last Vital Signs Temp 97.5 F L 04/21/21 20:05 Pulse 124 H 04/21/21 23:16 Resp 20 H 04/21/21 20:40 BP 115/58 04/21/21 23:16 Pulse Ox 91 04/21/21 23:16 04/21/21 04/21/21 04/22/21 14:59 22:59 06:59 Intake Total 704.037 / 637.128 4231.657 / 2400.694 Output Total 2300 / 2300 Balance 704.037 / 704.037 -603.343 / 100.694 Weight last 48 hrs Weight 141 lb 8.588 oz Physical Exam Narrative: EXAM NARRATIVE: PHYSICAL EXAM: General: lying in bed, sedated and intubated. HEENT:NCAT, PERRLA, EOMI Neck: Supple Lungs: Bilateral breath sounds much clearer than yesterday, Heart: s1/s2, RRR Abd: soft, NT, ND, BS + Normoactive Extremities: No edema MOVIE STUNT PERFORMER: sedated and limited MOVIE STUNT PERFORMER exam possible. SKIN: no rash LDA: # CVC: Right femoral line 04/20/2021 # HD Cath : Right internal jugular 04/20/2021 Urinary Catheter Management: Carroll: Cath Placed During This Visit: yes Reason for Continuing Indwelling Catheter: Accurate Measurement of Urinary Output in Critically Ill Patients Urinary Catheter Date of Insertion: 04/19/21 Urinary Catheter Time of Insertion: 01:00 Data : 04/21/21 Unknown 04/21/21 03:50 Other Labs: Radiology Impressions Abdomen/Pelvis CT 04/18/21 23:01 IMPRESSION: 1. Hazy bilateral pulmonary opacities which are consistent with COVID-19. 2. Acute pancreatitis. 3. Small amount of gas in the urinary bladder which may be secondary to recent manipulation or infection. Abdomen Ultrasound 04/19/21 02:25 IMPRESSION: 1. Cholelithiasis. Chest CT 04/19/21 02:25 IMPRESSION: 1. Nonspecific gallbladder distention. No calcified stones. 2. Mild retroperitoneal stranding about the pancreas, correlate with pancreatic enzymes. 3. Bilateral pulmonary infiltrates which may be seen with atypical pneumonia. Head CT 04/19/21 02:25 IMPRESSION: 1. No acute infarct or hemorrhage. 2. No calvarial or skull base fracture. 3. Paranasal sinus mucosal thickening. Chest X-Ray 04/21/21 01:21 IMPRESSION: Diffuse bilateral pulmonary opacities with some clearing centrally with more confluence peripherally. Laboratory Results WBC 8.0 10^3/uL (4.0-10.0) 04/21/21 Unknown RBC 2.66 10^6/uL (4.1-5.3) L 04/21/21 Unknown Hgb 8.2 g/dL (11.5-15.3) L 04/21/21 Unknown Hct 24.4 % (37.0-47.0) L 04/21/21 Unknown MCV 91.7 fl (81-99) 04/21/21 Unknown MCH 30.8 pg (28.0-34.0) 04/21/21 Unknown MCHC 33.6 g/dL (30.0-36.0) 04/21/21 Unknown RDW 13.7 % (12.1-15.1) 04/21/21 Unknown Plt Count 151 10^3/cmm (130-400) 04/21/21 Unknown MPV 12.0 fL (7.4-10.4) H 04/21/21 Unknown Neut % (Auto) 87.1 % 04/20/21 06:21 Lymph % (Auto) Not Reportable 04/21/21 Unknown [place] % (Auto) Not Reportable 04/21/21 Unknown Eos % (Auto) 0.0 % 04/20/21 06:21 Baso % (Auto) 0.1 % 04/20/21 06:21 Neut # (Auto) 13.35 10^3/uL (1.8-7.7) H 04/20/21 06:21 Lymph # (Auto) Not Reportable 04/21/21 Unknown [place] # (Auto) Not Reportable 04/21/21 Unknown Eos # (Auto) 0.0 10^3/uL (0.0-0.8) 04/20/21 06:21 Baso # (Auto) 0.0 10^3/uL (0.0-0.1) 04/20/21 06:21 Nucleated RBC % (auto) 0 % 04/20/21 06:21 Total Counted 100 (0-100) 04/21/21 Unknown Atypical Lymphs % 0.0 % (0-5) 04/21/21 Unknown Absolute Neutrophils 7.2 10^3/cmm (1.4-6.5) H 04/21/21 Unknown Segmented Neutrophils 41 % 04/21/21 Unknown Abs Segm Neuts (Man) 3.3 10/cmm (1.6-7.1) 04/21/21 Unknown Band Neutrophils 49.0 % 04/21/21 Unknown Abs Band Neuts (Man) 3.9 10^3/cmm (0.0-1.2) H 04/21/21 Unknown Absolute Lymphocytes 0.5 10^3/cmm (1.2-3.4) L 04/21/21 Unknown Lymphocytes (Manual) 6 % 04/21/21 Unknown Monocytes (Manual) 1.0 % 04/21/21 Unknown Absolute Monocytes 0.1 10^3/cmm (0.1-0.6) 04/21/21 Unknown Eosinophils (Manual) 0 % 04/21/21 Unknown Absolute Eosinophils 0.0 10^3/cmm (0.0-0.7) 04/21/21 Unknown Basophils (Manual) 0.0 % 04/21/21 Unknown Absolute Basophils 0.0 10^3/cmm (0.0-0.2) 04/21/21 Unknown Metamyelocytes 3.0 % 04/21/21 Unknown Nucleated RBCs # 0.0 /100WBC 04/20/21 06:21 Platelet Estimate Normal (Normal) 04/21/21 Unknown Basophilic Stippling Trace 04/21/21 Unknown Anisocytosis 1+ H 04/21/21 Unknown PT 16.40 SECONDS (12.1-14.9) H 04/19/21 03:00 INR 1.28 (0.8-1.2) H 04/19/21 03:00 APTT 103.5 SECONDS (23.9-36.7) H D 04/21/21 20:00 Fibrinogen 310 mg/dL (174-498) 04/19/21 03:00 Fibrin Degrad Products Pos, 10-40 ug/mL (NEG) H 04/19/21 03:00 D-Dimer 6.68 ug/mIFEU (0-0.59) H 04/21/21 03:50 Specimen Type Arterial 04/21/21 13:25 Sample Site Radial, right 04/21/21 13:25 ABG pH 7.41 (7.35-7.45) 04/21/21 13:25 ABG pCO2 35.5 mmHg (35-45) 04/21/21 13:25 ABG pO2 67.6 mmHg (80.0-100.0) L 04/21/21 13:25 ABG HCO3 22.4 mmol/L (22-26) 04/21/21 13:25 ABG O2 Saturation 94.7 04/21/21 13:25 ABG Base Excess -1.9 mmol/L (-2.0-2.0) 04/21/21 13:25 Dennis Test Pos 04/21/21 13:25 A-a O2 Gradient 36.2 mmHg (5-10) H 04/21/21 13:25 Hematocrit 27.9 % (37-47) L 04/21/21 13:25 Hgb O2 Saturation 93.0 % (95-100) L 04/21/21 13:25 Carboxyhemoglobin 0.4 %THgb (0.4-20.1) 04/21/21 13:25 Methemoglobin 1.3 % (0.4-1.5) 04/21/21 13:25 Total Hemoglobin 9.1 g/dL (12-16) L 04/21/21 13:25 Sodium 131.0 mmol/L (131-143) 04/21/21 13:25 Potassium 2.8 mmol/L (3.5-5.0) L 04/21/21 13:25 Glucose 117.0 mg/dL (70-115) H 04/21/21 13:25 Ionized Calcium 1.0 mmol/L (1.1-1.4) L 04/21/21 13:25 O2 Delivery Device Vent 04/21/21 13:25 FiO2 55.0 % 04/21/21 13:25 Tidal Volume 0.35 04/21/21 13:25 PEEP 5.0 cmH20 04/21/21 13:25 Colors Custodian ID Gd 04/21/21 13:25 Sodium 131 mmol/L (136-145) L 04/21/21 03:50 Potassium 3.5 mmol/L (3.5-5.1) 04/21/21 03:50 Chloride 93 mmol/L (98-107) L 04/21/21 03:50 Carbon Dioxide 21 mmol/L (22-29) L 04/21/21 03:50 Anion Gap 20.5 (5-19) H 04/21/21 03:50 BUN 29 mg/dL (6-20) H 04/21/21 03:50 Creatinine 5.3 mg/dL (0.5-0.9) H 04/21/21 03:50 GFR Calculation 9.0 mL/min (90-130) L 04/21/21 03:50 Glucose 180 mg/dL (65-115) H 04/21/21 03:50 POC Glucose 105 mg/dL (70-110) 04/21/21 22:45 Estimat Average Glucose 134 04/18/21 22:48 Hemoglobin A1c 6.3 % (4.0-6.0) H 04/18/21 22:48 Calculated Osmolality 282 mOsm/kg (285-295) L 04/21/21 03:50 Lactic Acid 5.1 mmol/L (0.5-2.2) H* 04/20/21 03:20 Lactic Acid (Sepsis) 4.7 mmol/L (0.5-2.2) H* 04/20/21 06:47 Uric Acid 12.0 mg/dL (2.4-5.7) H 04/20/21 09:20 Calcium 6.1 mg/dL (8.5-10.5) L 04/21/21 03:50 Phosphorus 6.4 mg/dL (2.5-4.5) H 04/19/21 19:05 Magnesium 1.7 mg/dL (1.7-2.3) 04/19/21 19:05 Total Bilirubin 1.0 mg/dL (0.15-1.2) 04/21/21 03:50 GGT 108 U/L (5-36) H 04/19/21 03:00 AST 38 U/L (0-32) H 04/21/21 03:50 ALT 24 U/L (0-33) 02/01/22 03:50 Alkaline Phosphatase 214 IU/L (35-105) H 04/21/21 03:50 Creatine Kinase 79 U/L (26-192) 04/19/21 03:00 Troponin T Baseline 31 ng/L (0-10) H 04/20/21 16:45 Troponin T 120 Minute 31.12 ng/L (0-10) H 04/20/21 19:44 Delta Troponin T 0.12 ABS# (0-10) 04/20/21 19:44 Troponin T Hi Sens 6Hr 27.06 ng/L (0-10) H 04/21/21 03:50 Troponin T Hi Sens 6Hr Delta -3.94 ng/L (0-12) L 04/21/21 03:50 C-Reactive Protein 6.3 mg/L (0.0-4.9) H 04/19/21 03:00 Total Protein 5.2 g/dL (6.6-8.7) L 04/21/21 03:50 Albumin 2.5 g/dL (3.5-5.2) L 04/21/21 03:50 Globulin 2.7 g/dL (1.3-4.6) 04/21/21 03:50 Triglycerides 865 mg/dL (0-150) H 04/21/21 12:45 Cholesterol 322 mg/dL (0-200) H 04/19/21 03:00 LDL Cholesterol Direct 23 mg/dL (0-100) 04/21/21 10:50 LDL Cholesterol, Calc Not Reportable 04/19/21 03:00 HDL Cholesterol 12 mg/dL (60-100) L 04/19/21 03:00 LDL/HDL Ratio Not Reportable 04/19/21 03:00 Cholesterol/HDL Ratio 26.83 mg/dL (0.0-4.40) H 04/19/21 03:00 Lipase 21 U/L (13-60) 04/21/21 03:50 25-OH Vitamin D Total 7 ng/mL (30-100) L 04/21/21 03:50 Procalcitonin 0.31 ng/mL (0-0.5) 04/19/21 03:00 TSH 1.02 uIU/mL (0.27-4.20) 04/19/21 03:00 HCG, Qual Negative (Negative) 04/18/21 22:48 PTH Intact 274.7 pg/mL (15-65) H 04/21/21 03:50 Calcium (PTH Intact) 6.7 mg/dL (8.5-10.5) L 04/21/21 03:50 Urine Color Yellow (Yellow) 04/18/21 23:19 Urine Appearance Clear (CLEAR) 04/18/21 23:19 Urine pH 5 (5-7) 04/18/21 23:19 Ur Specific [place] 1.020 (1.005-1.030) 04/18/21 23:19 Urine Protein 3+ (Negative) H 04/18/21 23:19 Urine Glucose (UA) 1+ (Normal) H 04/18/21 23:19 Urine Ketones 1+ (Negative) H 04/18/21 23:19 Urine Blood 2+ (Negative) H 04/18/21 23:19 Urine Nitrate Negative (Negative) 04/18/21 23:19 Urine Bilirubin 1+ (Negative) H 04/18/21 23:19 Urine Urobilinogen 1 mg/dL (Negative) H 04/18/21 23:19 Ur Leukocyte Esterase Negative (Negative) 04/18/21 23:19 Urine RBC 5-10 /hpf (0-2) H 04/18/21 23:19 Urine WBC 0-4 /hpf (0-5) H 04/18/21 23:19 Ur Eosinophil Smear 0 (0-0) 04/19/21 05:35 Ur Squamous Epith Cells 10-15 /hpf (0-5) H 04/18/21 23:19 Amorphous Sediment 3+ /hpf 04/18/21 23:19 Urine Bacteria 2+ /hpf (NONE) H 04/18/21 23:19 Urine Eosinophils No eosinophils seen 04/19/21 05:35 Ur Random Creatinine 128 mg/dL (20-275) 04/19/21 05:35 U Random Total Protein 727 mg/dL (5-24) H 04/19/21 05:35 Ur Random Sodium 57 mmol/L 04/19/21 05:35 Ur Random Potassium 27 mmol/L 04/19/21 05:35 Ur Random Chloride 50 mmol/L 04/19/21 05:35 Urine Creatinine 139 mg/dL (28-217) 04/19/21 05:35 Protein/Creatinin Ratio 5680 mg/g creat (21-161) H 04/19/21 05:35 Protein/Creat Ratio 24h 5.680 (0.021-0.161) H 04/19/21 05:35 Vancomycin Trough 20.4 ug/mL (10-15) H 04/20/21 03:20 Salicylates < 0.3 mg/dL (3-10) L 04/19/21 03:00 Acetaminophen < 5.0 ug/mL (10-30) L 04/19/21 03:00 Ethyl Alcohol < 10 mg/dL (0-10) 04/19/21 03:00 Urine Ethyl Alcohol Cancelled 04/19/21 05:35 Serum Ketones Negative (Negative) 04/20/21 19:44 Coronavirus 229E (PCR) Not detected (NOT DETECT) 04/19/21 05:35 Hepatitis A IgM Ab Non-reactive (Nonreactive) 04/19/21 03:00 Hep Bs Antigen Non-reactive (Nonreactive) 04/20/21 03:20 Hep Bs Antibody 3.5 (11.5-1000) L 04/20/21 03:20 Hep B Core IgM Ab Non-reactive (Nonreactive) 04/19/21 03:00 Hepatitis C Antibody Non-reactive (Nonreactive) 04/20/21 03:20 HIV 1&2 Ab & HIV 1 Ag Non-reactive (Non-Reactiv) 04/19/21 03:00 HIV 1&2 Antibody Non-reactive (Non-Reactiv) 04/19/21 03:00 Influenza Type A Ag Negative (Negative) 04/19/21 05:35 Influenza Type B Ag Negative (Negative) 04/19/21 05:35 SARS-CoV-2 (PCR) Detected (NOT DETECT) A 04/19/21 05:35 SARS-CoV-2 Ag (Rapid) Negative (Negative) 04/18/21 21:49 Micro: Microbiology 04/19/21 05:35 Urine Culture - Final Urine Catheterized A&P Assessment and plan (1) Acute respiratory distress syndrome (ARDS) due to 2019 novel coronavirus: Status: Acute (2) COVID: Status: Acute (3) Increased anion gap metabolic acidosis: Status: Acute (4) Acute encephalopathy: Status: Acute (5) Acute pancreatitis: Status: Acute (6) Mild mental handicap: Status: Acute (7) GODFREY (generalized anxiety disorder): Status: Acute (8) Essential hypertension: Status: Acute (9) Hypertriglyceridemia: Status: Acute (10) Leukocytosis: Status: Acute (11) Aspiration pneumonia: Status: Acute (12) Hypovolemic shock: Status: Acute Plan # Acute hypoxic respiratory failure in patient with COVID-19 pneumonia and fluid overload secondary to TONY -possible ARDS and patient with COVID-19 PCR positive /pancreatitis #TONY due to hypovolemia #Hypovolemic shock secondary to pancreatitis-currently on low-dose pressors #Pancreatitis secondary to hypertriglyceridemia #Generalized anxiety disorder #Leukocytosis-secondary to dehydration versus possible aspiration pneumonia - with h/o vomiting -Intubated on 04/20/2021 night after an episode of vomiting while she was on BiPAP -Currently sedated with fentanyl and Versed -ABG 7.4 //20 2/94% on CMV 55%/350/PEEP of 5 -Chest x-ray showed bilateral diffuse infiltrates-fluid overload vs ARDS secondary to pancreatitis/COVID-19 -On remdesivir and dexamethasone -Also covered with Zosyn for possible aspiration pneumonia -Continue monitoring respiratory status and saturations closely -Chest [id number] improved with hemodialysis today-renal on board -Sudden episode of hypoxia requiring sudden improvement in FiO2 from 40% to 100% and self resolved bradycardia-suspect PE-started on heparin drip-monitor PTT -CT angiogram prior to next hemodialysis session to rule out PE; bilateral venous Doppler negative for DVT -Triglycerides trending up-increased IV insulin drip and targetl triglycerides < 500; if continues to stay <1000, and patient starts eating we will plan to switch to subcutaneous insulin; less likely DKA as A1c 6.3 and patient was nondiabetic --Ketonemia could be secondary to vomitings-resolved -Chest x-ray showing infiltrates with leukocytosis so far procalcitonin is low MRSA nares negative -Currently n.p.o. for pancreatitis; receiving D5 as she is on insulin for hypertriglyceridemia, monitor FSBS closely and adjust IV insulin accordingly -Renal to continue hemodialysis to to remove fluid -Patient's family updated -Prognosis guarded Plan to send for CT chest with contrast to rule out PE and CT abdomen pelvis to rule out complications of pancreatitis prior to next hemodialysis session Recommendations conveyed to hospitalist, RN, RT taking care of the patient Attestations Medical Necessity Statement*: Hypoxic respiratory failure secondary to ARDS due to pancreatitis-fluid overload due to TONY and patient with underlying Covid pneumonia and aspiration pneumonia-requiring mechanical intubation Time Spent in Patient Care: Greater than 35 minutes (>than 50% of time spent in counselling and/or direct pt care on unit) . Critical Care Time: The high probability of a clinically significant, sudden or life threatening deterioration of the patient's [pulmonary, renal system(s) required my full and direct attention, intervention and personal management. The critical care time is as shown. This time is in addition to time spent performing any reported procedures but includes the following: [x] Data and vital sign review and interpretation [x] Patient assessment, examination and intervention [x] Documentation [x] Medication orders and management Critical Care Time (min): 44 Coding Level of Care Code Established Pt Acute Mental Health Nurse for Chg Fwd Patient Type Established History Comprehensive Exam Comprehensive Medical Decision Making High Complexity Diagnoses Acute respiratory distress syndrome (ARDS) due to 2019 novel coronavirus U07.1; J80 COVID U07.1 Increased anion gap metabolic acidosis E87.2 Acute encephalopathy G93.40 Acute pancreatitis K85.90 Mild mental handicap F70 GODFREY (generalized anxiety disorder) F41.1 Essential hypertension I10 Hypertriglyceridemia E78.1 Leukocytosis D72.829 Aspiration pneumonia J69.0 Hypovolemic shock R57.1 Time Spent (min) 45
[2021-04-22] VITALS (88 sets, daily range): BP systolic 87–144; BP diastolic 48–90; PULSE 106–132; RESP 18–34; TEMP 36.1–37.7; O2SAT 89–96
[2021-04-22 00:02] LABS: Glucose Point of Care 86 mg/dL (70-110)
[2021-04-22] MEDS: piperacillin-tazobactam 3.375 GM in sodium chloride 0.9% (plus) 50 ML IV ×2 (00:45→13:40)
[2021-04-22 01:20] LABS: Glucose Point of Care 65 mg/dL (70-110)
[2021-04-22 01:26] LABS: Triglycerides 778 mg/dL (0-150)
[2021-04-22 01:41] LABS: LDL Cholesterol Direct 20 mg/dL (0-100)
[2021-04-22 02:39] LABS: Glucose Point of Care 105 mg/dL (70-110)
[2021-04-22] MEDS: dextrose 5%-sod chloride 0.45% 1,000 ML 100 ML IV (03:03)
[2021-04-22] MEDS: famotidine 20 mg/2 mL INJ IVP ×2 (03:05→13:38)
[2021-04-22] MEDS: ipratropium-albuterol 3 mL Neb INHALATION ×4 (03:48→20:46)
[2021-04-22 04:02] LABS: Basophils % 0.2 %; Hematocrit 22.3 % (37.0-47.0); Lymphocytes # 0.7 10^3/uL (0.8-4.8); Lymphocytes % 8.5 %; Mean Corpuscular HGB Conc 35.9 g/dL (30.0-36.0); Mean Corpuscular Hemoglobin 32.1 pg (28.0-34.0); Mean Corpuscular Volume 89.6 fl (81-99); Mean Platelet Volume 12.6 fL (7.4-10.4); Monocytes # 0.2 10^3/uL (0.2-0.9); Monocytes % 2.7 %; Neutrophils # 7.03 10^3/uL (1.8-7.7); Neutrophils % 81.2 %; Nucleated Red Blood Cells % 0.2 %; Platelet Count 182 10^3/cmm (130-400); Red Blood Count 2.49 10^6/uL (4.1-5.3); Red Cell Distribution Width 13.5 % (12.1-15.1); White Blood Count 8.7 10^3/uL (4.0-10.0)
[2021-04-22 04:43] LABS: Partial Thromboplastin Time 53.1 SECONDS (23.9-36.7)
[2021-04-22 04:44] LABS: Triglycerides 771 mg/dL (0-150)
[2021-04-22 04:45] LABS: Phosphorus 3.6 mg/dL (2.5-4.5)
[2021-04-22 04:56] LABS: Procalcitonin 1.62 ng/mL (0-0.5)
[2021-04-22] MEDS: remdesivir 100 MG in sodium chloride 0.9% (100 ml) 100 ML IV (05:02)
[2021-04-22 05:08] LABS: Alanine Aminotransferase 21 U/L (0-33); Albumin Level 2.3 g/dL (3.5-5.2); Alkaline Phosphatase 234 IU/L (35-105); Anion Gap 25.1 (5-19); Aspartate Amino Transferase 35 U/L (0-32); Blood Urea Nitrogen 35 mg/dL (6-20); Calcium 6.1 mg/dL (8.5-10.5); Carbon Dioxide 17 mmol/L (22-29); Chloride 87 mmol/L (98-107); Glomerular Filtration Rate 8.5 mL/min (90-130); Glucose 98 mg/dL (65-115); Osmolality Calculated 270 mOsm/kg (285-295); Potassium 3.1 mmol/L (3.5-5.1); Sodium 126 mmol/L (136-145); Total Bilirubin 0.9 mg/dL (0.15-1.2); Total Protein 5.3 g/dL (6.6-8.7)
[2021-04-22 05:13] LABS: Glucose Point of Care 82 mg/dL (70-110)
[2021-04-22 05:26] LABS: LDL Cholesterol Direct 22 mg/dL (0-100)
[2021-04-22 05:55] LABS: ABG PCO2 34.4 mmHg (35-45); ABG PH Result 7.35 (7.35-7.45); Arterial Blood Gas Hematocrit 29.4 % (37-47); Blood Gas Allen Test Pos; Blood Gas Operator Identificat JB; Blood Gas Sample Site Radial, right; Blood Gas Sample Type Arterial; HCO3 ABG 18.9 mmol/L (22-26); Oxygen Device VENT; PO2 ABG 96.8 mmHg (80.0-100.0)
[2021-04-22 05:57] LABS: Blood Gas Tidal Volume 0.35
[2021-04-22 06:22] LABS: Glucose Point of Care 63 mg/dL (70-110)
[2021-04-22 06:37] LABS: Slide Review Slide Review Perform
--- NOTE | 2021-04-22 07:04 | PM.PN ---
Subjective Subjective: Interval history: intubated, sedated. unable to obtain a ROS Medications: Reviewed: Yes Medication Review Details: Current Medications Acetaminophen (Acetaminophen 325 Mg Tablet) 650 mg PO Q6H PRN PRN Reason: Mild/Mod Pain Or Temp >/= 101 Albuterol/Ipratropium (Ipratropium-Albuterol 3 Ml Neb) 3 ml INHALATION Q6H.RESPIRATORY ANNIE Last Admin: 04/22/21 03:48 Dose: 3 ml Documented by: Calcium Carbonate (Calcium Carbonate 500 Mg Chew Tablet) 1,000 mg PO TID [facility] Last Admin: 04/21/21 20:55 Dose: 1,000 mg Documented by: Dexamethasone (Dexamethasone 10 Mg/Ml Inj) 6 mg IVP Q24H [facility] Last Admin: 04/21/21 12:04 Dose: 6 mg Documented by: Dextrose (Dextrose 50% Syringe 50 Ml) 25 ml IVP ONCE PRN; Protocol PRN Reason: hypoglycemia protocol Last Admin: 04/20/21 00:25 Dose: 25 ml Documented by: Dextrose (Dextrose 50% Syringe 50 Ml) 50 ml IVP PRN PRN; Protocol PRN Reason: hypoglycemia protocol Last Admin: 04/19/21 20:35 Dose: 50 ml Documented by: Ergocalciferol (Ergocalciferol (Vitamin D2) 50,000 Unit Capsule) 50,000 unit PO Q7D [facility] Last Admin: 04/21/21 12:04 Dose: 50,000 unit Documented by: Famotidine (Famotidine 20 Mg/2 Ml Inj) 20 mg IVP Q12H [facility] Last Admin: 04/22/21 03:05 Dose: 20 mg Documented by: Glucagon (Glucagon 1 Mg/Ml Inj 1 Ml) 1 mg IM ONCE PRN; Protocol PRN Reason: Adult Acute Hypoglycemia Prot Heparin Sodium (Porcine) (Heparin 5,000 Unit/Ml Inj 1 Ml) 5,000 unit SUBCUT Q12H [facility] Last Admin: 04/21/21 04:54 Dose: Not Given Documented by: Dextrose (D5w) 500 mls @ 100 mls/hr IV ONCE PRN; Protocol PRN Reason: Adult Acute Hypoglycemia Prot Last Infusion: 04/20/21 18:12 Dose: Infused Documented by: Insulin Human Regular 250 unit (/ Sodium Chloride) 252.5 mls @ 0 mls/hr IV .Q0M [facility]; Protocol Last Admin: 04/21/21 17:49 Dose: 8 unit/hr, 8.08 mls/hr Documented by: Piperacillin Sod/Tazobactam (Sod 3.375 gm/ Sodium Chloride) 50 mls @ 12.5 mls/hr IV Q12H ANNIE; Protocol Last Infusion: 04/22/21 05:02 Dose: Infused Documented by: Dextrose/Sodium Chloride (Dextrose 5%-Sod Chloride 0.45%) 1,000 mls @ 100 mls/hr IV .Q10H ANNIE Last Admin: 04/22/21 03:03 Dose: 100 mls/hr Documented by: Albumin Human (Albumin) 12.5 gm in 50 mls @ 60 mls/hr IV PRN PRN PRN Reason: Hypotension and/or symptomatic Norepinephrine Bitartrate 4 mg (/ Dextrose) 254 mls @ 0 mls/hr IV .Q0M ANNIE; Protocol Last Titration: 04/21/21 22:00 Dose: Infused Documented by: Remdesivir 100 mg/ Sodium (Chloride) 100 mls @ 100 mls/hr IV Q24H ANNIE Stop: 04/24/21 06:59 Last Admin: 04/22/21 05:02 Dose: 100 mls/hr Documented by: Norepinephrine Bitartrate 4 mg (/ Dextrose) 254 mls @ 0 mls/hr IV .Q0M ANNIE; Protocol Last Titration: 04/22/21 05:16 Dose: 0 mcg/min, 0 mls/hr Documented by: Heparin Sodium/Sodium Chloride (Heparin Drip) 25,000 unit in 500 mls @ 0 mls/hr IV .Q0M ANNIE; Protocol Last Titration: 04/22/21 04:00 Dose: 17 unit/kg/hr, 20.73 mls/hr Documented by: dexmedeTOMIDine 0.9 % NaCL (Precedex) 400 mcg in 100 mls @ 0 mls/hr IV .Q0M ANNIE; Protocol Last Titration: 04/21/21 01:15 Dose: 0 mcg/kg/hr, 0 mls/hr Documented by: Albumin Human (Albumin) 12.5 gm in 50 mls @ 60 mls/hr IV PRN PRN PRN Reason: Hypotension and/or symptomatic Propofol (Diprivan) 1,000 mg in 100 mls @ 0 mls/hr IV .Q0M ANNIE; Protocol Last Titration: 04/22/21 05:16 Dose: 0 mcg/kg/min, 0 mls/hr Documented by: Fentanyl 2,500 mcg/ Sodium (Chloride) 250 mls @ 0 mls/hr IV .Q0M [facility]; Protocol Last Titration: 04/22/21 04:38 Dose: 50 mcg/hr, 5 mls/hr Documented by: Midazolam HCl 100 mg/ Sodium (Chloride) 100 mls @ 0 mls/hr IV .Q0M [facility]; Protocol Last Titration: 04/22/21 05:15 Dose: Infused Documented by: Lactulose (Lactulose Oral Liq 20 Gm/30 Ml Udc) 10 gm PO DAILY PRN PRN Reason: CONSTIPATION Lorazepam (Lorazepam 2 Mg/Ml Inj 1 Ml) 2 mg IVP Q4H PRN PRN Reason: ANXIETY Last Admin: 04/21/21 00:01 Dose: 2 mg Documented by: Naloxone HCl (Naloxone 0.4 Mg/Ml Sdv) 0.1 mg IVP Q2M PRN PRN Reason: OPIATERV Ondansetron HCl (Ondansetron 2 Mg/Ml Sdv 2 Ml) 4 mg IVP Q8H PRN PRN Reason: vomiting, or N/V if npo Last Admin: 04/20/21 19:18 Dose: 4 mg Documented by: Senna/Docusate Sodium (Sennosides-Docusate Tablet) 2 tab PO DAILY [facility] Vitals/I&O/Wt Last Vital Signs Temp 98.9 F 04/22/21 04:00 Pulse 121 H 04/22/21 06:00 Resp 23 H 04/22/21 06:21 BP 142/78 04/22/21 04:00 Pulse Ox 93 04/22/21 06:21 04/21/21 04/22/21 04/22/21 22:59 06:59 14:59 Intake Total 1696.657 / 2400.694 1351.012 / 3751.706 Output Total 2300 / 2300 Balance -603.343 / 834.255 4116.012 / 1451.706 Weight last 48 hrs Weight 64.2 kg Physical Exam Narrative: EXAM NARRATIVE: intubated, levo just turned off vent fio2 50%, TV 350, peep 5, rr 20 vs noted. heent- nc/at, eomi neck obese lungs crackles and ronchi b/l heart- tachycardic, reg abd soft, distended, + bs ext edema neuro- sedated rt neck dialysis catheter Urinary Catheter Management: Carroll: Cath Placed During This Visit: yes Reason for Continuing Indwelling Catheter: Accurate Measurement of Urinary Output in Critically Ill Patients Urinary Catheter Date of Insertion: 04/19/21 Urinary Catheter Time of Insertion: 01:00 Data : 04/22/21 03:05 04/22/21 03:05 Micro: Microbiology 04/19/21 05:35 Urine Culture - Final Urine Catheterized A&P Assessment and plan (1) Acute kidney injury: 40 yr old female COVID-19+ , hypertriglyceridemia, pancreas inflammation on ct scan, TONY 1. leukocytosis- renal dose antivirals and abx - wbc improved from 27 to 15 to 8.7 2. TONY- ATN/ COVID-nephropathy- s/p HD 04/20 and SUF yesterday- repeat hd now 3 hrs, 3 k, remove 2 l 3. hyponatremia- from tony -monitor w/ HD 4. hypokalemia- replete k and monitor 5. hypocalcemia- replete ca and vit d 6. hypertriglyceridemia is improving - TG back to 771- consider plasmapheresis to lower TG -agree w/ lowering fat containing meds 7. anemia-check iron studies, give hcyna as hgb <9 seen and examined w/ RN- telehealth visit time spent > 35 min Status: Acute Plan see above Attestations Medical Necessity Statement*: tony, covid-19+, VDRF Time Spent in Patient Care: Greater than 35 minutes (>than 50% of time spent in counselling and/or direct pt care on unit). 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
[2021-04-22 07:18] LABS: Glucose Point of Care 88 mg/dL (70-110)
--- NOTE | 2021-04-22 07:35 | CT_ITS ---
WS: [id number] CTA CHEST WITH ABDOMEN AND PELVIS TECHNIQUE: Contrast enhanced CTA of the chest, followed by abdomen and pelvis with coronal and sagitt al reformatted images and additional MIP Images. CLINICAL INFORMATION: HYpoxia acute COMPARISON: CT abdomen pelvis April 18, [address] chest April 19, 2021 DLP: 1712.[address] scans at [facility] use at least one of these dose optimization techniques: automated e xposure control; mA and/or kV adjustment per patient size (includes targeted exams where dose is matc hed to clinical indication); or iterative reconstruction. FINDINGS: Diffuse hazy bilateral pulmonary infiltrates have improved in the lung bases with improved aeration o f the bilateral lower lobes. However, there is increased diffuse airspace infiltrates in the perihila r regions and upper lobes bilaterally with partial confluence and consolidation. Air bronchograms in the lung apices. Proximal main pulmonary arteries are normal. Segmental and subsegmental pulmonary arteries not well e valuated due to breathing artifact. Suggestion of a few small filling defects in the left lower lobe segmental and subsegmental pulmonary arteries suspicious for pulmonary embolus. This is not well eval uated due to respiratory artifact. Shallow inspiration. Endotracheal tube with tip above the tracey. Enteric tube with tip in the stomach. Air-fluid level in the stomach. Normal caliber thoracic aorta. Bilateral bronchovascular thickening. Reactive mediastin al lymph nodes. No axillary lymphadenopathy. Normal caliber thoracic aorta. Diffuse fatty infiltration of the liver. Fluid distended gallbladder is unchanged in appearance. Air- fluid level in the stomach with enteric tube in the distal stomach. Normal spleen. Small amount of pa ncreatic edema is similar to previous. Recommend correlation for pancreatitis. Adrenal glands are nor mal. Enlarged kidneys bilaterally with heterogeneous enhancement. Recommend correlation for renal ins ufficiency. Normal caliber abdominal aorta. Carroll catheter. Left ovarian cyst measuring 2.8 cm. Small amount of free fluid in the cul-de-sac. Nor mal sigmoid colon. Air distended transverse colon compatible with ileus. Mild diffuse body wall anasa rca. Prominent right pericentral disc osteophyte protrusion L5-S1. Disc space narrowing L5-S1. CT/CT angio chest w abd pel w con IMPRESSION: 1. Proximal main pulmonary arteries are normal. A few filling defects in the l eft lower lobe pulmonary artery suspicious for pulmonary embolus. Images degrad ed by breathing artifact. 2. Endotracheal tube with tip above the tracey. Enteric tube with tip below th e diaphragm in the distal stomach. 3. Air-fluid level in the stomach. Air distended transverse colon compatible w ith adynamic ileus. 4. Diffuse bilateral pulmonary infiltrates have improved in the lung bases but progressed in the perihilar regions and upper lobes with partial confluence an d consolidation in the lung apices with air bronchograms. 5. Small amount of pancreatic edema is similar to previous. Recommend correlat ion for pancreatitis. 6. Enlarged kidneys bilaterally with heterogeneous enhancement. Correlation fo r renal insufficiency. No hydronephrosis. 7. Small amount of free fluid in the pelvis. Diffuse body wall anasarca. Message left for Paresh Reese MD at 04/22/2021 11:55 AM.
[2021-04-22 08:02] LABS: Ferritin 481 ng/mL (15-150); Iron 45 ug/dL (37-145); Percent Saturation 26.4 % (20-50); Total Iron Binding Capacity 170 mcg/dl; Unsaturated Iron Binding 125 ug/dL (112-347)
[2021-04-22 08:10] LABS: Glucose Point of Care 71 mg/dL (70-110)
[2021-04-22 08:10] LABS: Glucose Point of Care 66 mg/dL (70-110)
[2021-04-22] MEDS: potassium chloride oral liq 20 mEq/15 mL UDC 40 MEQ PO ×2 (09:05→17:05)
[2021-04-22] MEDS: calcium carbonate 500 mg Chew Tablet 1000 MG PO ×3 (09:05→21:31)
[2021-04-22] MEDS: fenofibrate 145 mg Tablet PO (09:06)
[2021-04-22] MEDS: sennosides-docusate Tablet 2 TAB PO (09:06)
[2021-04-22] MEDS: epoetin alfa 10,000 unit/mL INJ 10000 UNIT SUBCUT (09:06)
[2021-04-22 09:10] LABS: Glucose Point of Care 116 mg/dL (70-110)
--- NOTE | 2021-04-22 09:14 | PC.CHAP ---
Pastoral Care Encounter/Spiritual Assessment Type of Contact [] Declined staple shear operator visit [] Patient/Family/Request visit [] Outpatient visit [] Follow-up visit [] Physician referral [] Code/Alert [x] Routine visit [] Staff referral [] Actively dying [] Patient sleeping [] Family support [] [] Out of room [] Palliative care [] [x] Receiving care in room [] Pre-surgical visit [] Trauma [] Long length of stay [x] ICU visit [x] Other: vent Relational/Emotional Strength [] Patient feels connected with others/family/visitors/staff [] Distress [] Loneliness/isolation [] Abandonment Spirituality of Patient [] Person of Emelina [] Attends Catholic of their Emelina [] Believes in Prayer [] Reads Bible or Taoism materials [] There are Spiritual issues to be addressed Meat Grinder Interventions [x] Prayer [] Active listening [] Non-anxious presence [] Spiritual/emotional support [] Crisis/trauma care [] Spiritual counseling [] Bereavement support [] Provided bereavement packet [] Provided Bible/devotional materials [] Provided toy/stuffed animal, coloring book to patient or family member [] Provided Communion [] Anointing/[place] [] Salvation [x] Completed spiritual assessment [] Other: Impact on Illness or Injury [] Angry [] Fearful [] Anxious [] Often cries [] Exhaustion [] Unable to work [] Unable to attend roman catholic [] Unable to walk/stand [] Unable to read [] Unable to drive [] Unable to eat/drink [] Unable to sleep [] Unable to be with family [] Patient intubated [] Other: Summary Time spent with patient
[2021-04-22 10:21] LABS: Glucose Point of Care 86 mg/dL (70-110)
[2021-04-22] MEDS: iodixanol 320 mg/mL 100mL Btl IV (10:48)
[2021-04-22 11:39] LABS: Glucose Point of Care 80 mg/dL (70-110)
[2021-04-22 12:37] LABS: Triglycerides 669 mg/dL (0-150)
[2021-04-22 12:45] LABS: Glucose Point of Care 55 mg/dL (70-110)
--- NOTE | 2021-04-22 13:15 | P.PN_ITS ---
Subjective Subjective: Interval history: Patient was seen and examined this morning Intubated and sedated She went for CTA chest which was positive for PE and upper lobe consolidation likely aspiration pneumonia CT abdomen pelvis did not show worsening of pancreatitis, no signs of necrosis, adynamic ileus transverse colon Low blood sugar, will increase the rate of D5@ 150 mL/h, and straining at 8 units Hemoglobin stable at 8, APTT 52 FiO2 weaned down to 50% PEEP 5 Triglyceride level 669 Vitals/I&O/Wt Last Vital Signs Temp 100 F H 04/22/21 10:00 Pulse 122 H 04/22/21 11:15 Resp 21 H 04/22/21 11:38 BP 111/68 04/22/21 11:15 Pulse Ox 94 04/22/21 11:38 04/21/21 04/22/21 04/22/21 22:59 06:59 14:59 Intake Total 1696.657 / 2400.694 1351.012 / 3751.706 996.667 / 996.667 Output Total 2300 / 2300 75 / 75 Balance -603.343 / 228.420 7109.012 / 1451.706 921.667 / 921.667 Weight last 48 hrs Weight 64.2 kg Physical Exam Narrative: EXAM NARRATIVE: Patient intubated and sedated Firm abdomen Bowel sounds sluggish Endotracheal tube size 8 Lip by 23 cm Bilateral assisted breath sounds much clearer compared to yesterday I did not appreciate crackles today Mild edema of legs Right groin femoral line with clean dressing Urinary Catheter Management: Carroll: Cath Placed During This Visit: yes Reason for Continuing Indwelling Catheter: Accurate Measurement of Urinary Output in Critically Ill Patients Urinary Catheter Date of Insertion: 04/19/21 Urinary Catheter Time of Insertion: 01:00 Data : 04/22/21 03:05 04/22/21 03:05 Micro: Microbiology 04/19/21 05:35 Urine Culture - Final Urine Catheterized A&P Assessment and plan (1) Hypovolemic shock: Status: Acute (2) Aspiration pneumonia: Status: Acute (3) Acute respiratory distress syndrome (ARDS) due to 2019 novel coronavirus: Status: Acute (4) ATN (acute tubular necrosis): Status: Acute (5) COVID: Status: Acute (6) Lactic acidosis: Status: Acute (7) Acute pancreatitis: Status: Acute (8) Hypertriglyceridemia: Status: Acute Plan COVID-19 related respiratory failure requiring mechanical ventilation Currently intubated and sedated Minimal vent settings Fluid overload slightly improved, repeat chest x-ray tomorrow morning Repeating dialysis today Echo could not verify ejection fraction, bilateral infiltrate of chest improved with dialysis, this presentation goes with primary edema, watch for signs of ARDS which can happen with pancreatitis Continue Decadron and remdesivir Discontinue Versed we will keep patient on fentanyl and tomorrow might add Precedex Acute pulmonary embolism Continue heparin drip Hypoglycemia Increase D5 rate to 200 mL/h Keep insulin unit at 8 for hypertriglyceridemia, triglyceride trending down Triglyceridemia induced pancreatitis Triglyceride trending down, No acute indication for plasmapheresis Generalized anasarca we will give her a dose of albumin today Hold tube feeding because of transverse colon adynamic ileus, will place NG tube to suction Aspiration pneumonia continue vancomycin and Zosyn, I would keep same IV antibiotics regimen for now in case of any further spike of fever would escalate to imipenem No active signs of necrotic pancreas Guarded prognosis Dialysis dependent now Full code Mother updated Case discussed with tool and die supervisor Attestations Medical Necessity Statement*: Continue ICU management Time Spent in Patient Care: 30mins Coding Level of Care Code Acute Car Pusher for g Fwd Diagnoses Hypovolemic shock R57.1 Aspiration pneumonia J69.0 Acute respiratory distress syndrome (ARDS) due to 2019 novel coronavirus U07.1; J80 ATN (acute tubular necrosis) N17.0 COVID U07.1 Lactic acidosis E87.2 Acute pancreatitis K85.90 Hypertriglyceridemia E78.1
--- NOTE | 2021-04-22 13:29 | PC.SOCIAL ---
IMM update IMM updated with patient's mother. Verbalized an understanding. Initialled ,dated, timed, and placed in chart.
[2021-04-22] MEDS: dexamethasone 10 mg/mL INJ 6 MG IVP (13:38)
[2021-04-22 13:41] LABS: LDL Cholesterol Direct 20 mg/dL (0-100)
[2021-04-22 13:57] LABS: Glucose Point of Care 79 mg/dL (70-110)
[2021-04-22] MEDS: dextrose 5%-sod chloride 0.45% 1,000 ML 200 ML IV ×2 (14:16→19:40)
[2021-04-22] MEDS: albumin 12.5 GM/250 ML VIAL IV (15:12)
[2021-04-22 15:18] LABS: Glucose Point of Care 115 mg/dL (70-110)
[2021-04-22 16:12] LABS: Glucose Point of Care 103 mg/dL (70-110)
[2021-04-22 16:17] LABS: Albumin,Urine Random 46 %; Alpha-1-Globulins Urine Random 4 %; Alpha-2-Globulins Urine Random 12 %; Beta-Globulin,Urine Random 21 %; Gamma Globulin,Urine Random 18 %
[2021-04-22] MEDS: paricalcitol 2 mcg/mL SDV 1 mL 3 MCG IV (16:21)
[2021-04-22 17:14] LABS: Glucose Point of Care 91 mg/dL (70-110)
--- NOTE | 2021-04-22 17:35 | PC.NURSE ---
SHift SUmmary: Day was uneventful. patient rested in bed throughout the day. Was taken to CT and transport was uneventful. Dialysis is currently being performed at this time. Lungs sounds have crackles throughout. WIll reassess after dialysis. 75mL of urine output today.
[2021-04-22 17:58] LABS: Partial Thromboplastin Time 47.5 SECONDS (23.9-36.7)
[2021-04-22] MEDS: propofol 1,000 MG/100 ML INJ 3.66 MG IV (18:15)
--- NOTE | 2021-04-22 18:41 | PC.NURSE ---
2000mL removed during dialysis.
[2021-04-22 21:23] LABS: Glucose Point of Care 209 mg/dL (70-110)
--- NOTE | 2021-04-22 21:23 | PC.NURSE ---
Dr. Mota on unit, this nurse was informed that insulin drip was put on hold per previous nurse due to blood glucose of 77, Dr mota on unit, this nurse clarified previous and that tryglcerides are 669, v.o. given to stop insulin drip and dextrose fluids
[2021-04-22 22:24] LABS: Glucose Point of Care 73 mg/dL (70-110)
[2021-04-22 23:39] LABS: Partial Thromboplastin Time 48.9 SECONDS (23.9-36.7)
[2021-04-23] VITALS (63 sets, daily range): BP systolic 93–155; BP diastolic 61–103; PULSE 73–123; RESP 18–26; TEMP 36.2–37.4; O2SAT 90–97
[2021-04-23] MEDS: piperacillin-tazobactam 3.375 GM in sodium chloride 0.9% (plus) 50 ML IV ×2 (00:35→12:42)
[2021-04-23] MEDS: famotidine 20 mg/2 mL INJ IVP ×2 (01:38→14:46)
[2021-04-23 01:41] LABS: Triglycerides 520 mg/dL (0-150)
[2021-04-23 02:04] LABS: LDL Cholesterol Direct 18 mg/dL (0-100)
[2021-04-23] MEDS: ipratropium-albuterol 3 mL Neb INHALATION ×4 (03:41→20:25)
[2021-04-23] MEDS: propofol 1,000 MG/100 ML INJ 3.66 MG IV (04:13)
--- NOTE | 2021-04-23 04:16 | XR_ITS ---
WS: [id number] PORTABLE CHEST HISTORY: Intubated COMPARISON: 04/21/2021 Endotracheal tube in good position with the tip ending 2 cm above the tracey. Nasogastric tube is pre sent with tip extending into the upper abdomen. The tip is not included on this radiograph. Extensive bilateral areas of opacification. Less consolidation bilaterally in the lower lung dyer. No pleural effusion is identified. No pneumothorax or pneumomediastinum. Cardiac size: Normal. Mediastinum/Aorta: Normal mediastinum. No osseous abnormality seen. RIGHT central line with tip in the distal SVC. XR/XR chest 1V portable [id number] IMPRESSION: 1. Endotracheal tube and nasogastric tubes and RIGHT central line remain in go od position. 2. Mild improvement in the dense alveolar opacifications in the lower lung fie lds bilaterally. Continued diffuse airway disease.
[2021-04-23] MEDS: heparin drip 25,000 UNIT/500 ML PREMIX 24.39 UNIT IV (04:22)
--- NOTE | 2021-04-23 04:44 | PC.NURSE ---
patient became non compliant with vent, RR in 30s, required turning up propofol
[2021-04-23] MEDS: remdesivir 100 MG in sodium chloride 0.9% (100 ml) 100 ML IV (05:05)
[2021-04-23 05:37] LABS: ABG PCO2 47.6 mmHg (35-45); ABG PH Result 7.29 (7.35-7.45); Arterial Blood Gas Hematocrit 22.2 % (37-47); Base Excess ABG -3.5 mmol/L (-2.0-2.0); Blood Gas Allen Test Pos; Blood Gas Sample Site Radial, left; Blood Gas Sample Type Arterial; HCO3 ABG 22.9 mmol/L (22-26); PO2 ABG 87.9 mmHg (80.0-100.0)
[2021-04-23 05:38] LABS: Oxygen Device VENT
[2021-04-23 06:37] LABS: Basophils % 0.4 %; Eosinophils # 0.2 10^3/uL (0.0-0.8); Eosinophils % 1.6 %; Hematocrit 21.1 % (37.0-47.0); Hemoglobin 7.2 g/dL (11.5-15.3); Lymphocytes # 0.5 10^3/uL (0.8-4.8); Lymphocytes % 4.8 %; Mean Corpuscular HGB Conc 34.1 g/dL (30.0-36.0); Mean Corpuscular Hemoglobin 31.2 pg (28.0-34.0); Mean Corpuscular Volume 91.3 fl (81-99); Mean Platelet Volume 12.5 fL (7.4-10.4); Monocytes # 0.7 10^3/uL (0.2-0.9); Monocytes % 7.6 %; Neutrophils # 7.56 10^3/uL (1.8-7.7); Neutrophils % 81.4 %; Nucleated Red Blood Cells # 0.1 /100WBC; Nucleated Red Blood Cells % 0.5 %; Platelet Count 175 10^3/cmm (130-400); Red Blood Count 2.31 10^6/uL (4.1-5.3); Red Cell Distribution Width 14.4 % (12.1-15.1); White Blood Count 9.3 10^3/uL (4.0-10.0)
[2021-04-23 06:46] LABS: Partial Thromboplastin Time 47.6 SECONDS (23.9-36.7)
--- NOTE | 2021-04-23 06:49 | XR_ITS ---
WS: [id number] PORTABLE CHEST HISTORY: NG tube verification COMPARISON: 04/23/2021 Endotracheal tube is in good position. Orogastric tube is present with tip ending in the LEFT upper q uadrant. The orogastric tube has been retracted since the prior study. The proximal port is just beyo nd the GE junction. RIGHT central line in good position. Lung volumes are decreased as compared to the prior study. Continued bilateral pulmonary opacificatio ns and alveolar consolidation. Not significantly changed. No pleural effusion or pneumothorax. Cardiac size: Normal. Mediastinum/Aorta: Normal mediastinum. No osseous abnormality seen. XR/XR chest 1V portable [id number] IMPRESSION: 1. Orogastric tube has been retracted but the tip still remains adequately pos itioned within the stomach. 2. Endotracheal tube in good position. 3. Continued bilateral dense opacifications. No interval change.
[2021-04-23 07:08] LABS: Alanine Aminotransferase 156 U/L (0-33); Albumin Level 2.5 g/dL (3.5-5.2); Alkaline Phosphatase 323 IU/L (35-105); Anion Gap 21.5 (5-19); Aspartate Amino Transferase 368 U/L (0-32); Blood Urea Nitrogen 20 mg/dL (6-20); Calcium 6.7 mg/dL (8.5-10.5); Carbon Dioxide 21 mmol/L (22-29); Chloride 93 mmol/L (98-107); Globulin 2.7 g/dL (1.3-4.6); Glomerular Filtration Rate 15.6 mL/min (90-130); Glucose 172 mg/dL (65-115); Magnesium 2.4 mg/dL (1.7-2.3); Osmolality Calculated 277 mOsm/kg (285-295); Potassium 5.5 mmol/L (3.5-5.1); Sodium 130 mmol/L (136-145); Total Bilirubin 1.5 mg/dL (0.15-1.2); Total Protein 5.2 g/dL (6.6-8.7); Triglycerides 583 mg/dL (0-150)
[2021-04-23 07:15] LABS: Slide Review Slide Review Perform
[2021-04-23 07:23] LABS: LDL Cholesterol Direct 14 mg/dL (0-100)
--- NOTE | 2021-04-23 08:07 | PM.PN ---
Subjective Subjective: Interval history: sedated, intubated. no pressors Medications: Reviewed: Yes Medication Review Details: Current Medications Acetaminophen (Acetaminophen 325 Mg Tablet) 650 mg PO Q6H PRN PRN Reason: Mild/Mod Pain Or Temp >/= 101 Albuterol/Ipratropium (Ipratropium-Albuterol 3 Ml Neb) 3 ml INHALATION Q6H.RESPIRATORY [facility] Last Admin: 04/23/21 03:41 Dose: 3 ml Documented by: Calcium Carbonate (Calcium Carbonate 500 Mg Chew Tablet) 1,000 mg PO TID [facility] Last Admin: 04/22/21 21:31 Dose: 1,000 mg Documented by: Dexamethasone (Dexamethasone 10 Mg/Ml Inj) 6 mg IVP Q24H [facility] Last Admin: 04/22/21 13:38 Dose: 6 mg Documented by: Dextrose (Dextrose 50% Syringe 50 Ml) 25 ml IVP ONCE PRN; Protocol PRN Reason: hypoglycemia protocol Last Admin: 04/20/21 00:25 Dose: 25 ml Documented by: Dextrose (Dextrose 50% Syringe 50 Ml) 50 ml IVP PRN PRN; Protocol PRN Reason: hypoglycemia protocol Last Admin: 04/19/21 20:35 Dose: 50 ml Documented by: Dextrose (Dextrose 50% Syringe 50 Ml) 25 ml IVP ONCE PRN; Protocol PRN Reason: hypoglycemia protocol Dextrose (Dextrose 50% Syringe 50 Ml) 50 ml IVP PRN PRN; Protocol PRN Reason: hypoglycemia protocol Ergocalciferol (Ergocalciferol (Vitamin D2) 50,000 Unit Capsule) 50,000 unit PO Q7D [facility] Last Admin: 04/21/21 12:04 Dose: 50,000 unit Documented by: Famotidine (Famotidine 20 Mg/2 Ml Inj) 20 mg IVP Q12H [facility] Last Admin: 04/23/21 01:38 Dose: 20 mg Documented by: Fenofibrate (Fenofibrate 145 Mg Tablet) 145 mg PO DAILY [facility] Last Admin: 04/22/21 09:06 Dose: 145 mg Documented by: Glucagon (Glucagon 1 Mg/Ml Inj 1 Ml) 1 mg IM ONCE PRN; Protocol PRN Reason: Adult Acute Hypoglycemia Prot Glucagon (Glucagon 1 Mg/Ml Inj 1 Ml) 1 mg IM ONCE PRN; Protocol PRN Reason: Adult Acute Hypoglycemia Prot. Heparin Sodium (Porcine) (Heparin 5,000 Unit/Ml Inj 1 Ml) 5,000 unit SUBCUT Q12H [facility] Last Admin: 04/21/21 04:54 Dose: Not Given Documented by: Dextrose (D5w) 500 mls @ 100 mls/hr IV ONCE PRN; Protocol PRN Reason: Adult Acute Hypoglycemia Prot Last Infusion: 04/20/21 18:12 Dose: Infused Documented by: Insulin Human Regular 250 unit (/ Sodium Chloride) 252.5 mls @ 0 mls/hr IV .Q0M ANNIE; Protocol Last Titration: 04/22/21 21:29 Dose: 0 unit/hr, 0 mls/hr Documented by: Piperacillin Sod/Tazobactam (Sod 3.375 gm/ Sodium Chloride) 50 mls @ 12.5 mls/hr IV Q12H [facility]; Protocol Last Infusion: 04/23/21 05:37 Dose: Infused Documented by: Dextrose/Sodium Chloride (Dextrose 5%-Sod Chloride 0.45%) 1,000 mls @ 200 mls/hr IV .Q5H [facility] Last Admin: 04/23/21 03:14 Dose: Not Given Documented by: Norepinephrine Bitartrate 4 mg (/ Dextrose) 254 mls @ 0 mls/hr IV .Q0M [facility]; Protocol Last Titration: 04/21/21 22:00 Dose: Infused Documented by: Remdesivir 100 mg/ Sodium (Chloride) 100 mls @ 100 mls/hr IV Q24H [facility] Stop: 04/24/21 06:59 Last Admin: 04/23/21 05:05 Dose: 100 mls/hr Documented by: Norepinephrine Bitartrate 4 mg (/ Dextrose) 254 mls @ 0 mls/hr IV .Q0M [facility]; Protocol Last Titration: 04/22/21 05:16 Dose: 0 mcg/min, 0 mls/hr Documented by: Heparin Sodium/Sodium Chloride (Heparin Drip) 25,000 unit in 500 mls @ 0 mls/hr IV .Q0M [facility]; Protocol Last Admin: 04/23/21 04:22 Dose: 20 unit/kg/hr, 24.39 mls/hr Documented by: dexmedeTOMIDine 0.9 % NaCL (Precedex) 400 mcg in 100 mls @ 0 mls/hr IV .Q0M [facility]; Protocol Last Titration: 04/21/21 01:15 Dose: 0 mcg/kg/hr, 0 mls/hr Documented by: Albumin Human (Albumin) 12.5 gm in 50 mls @ 60 mls/hr IV PRN PRN PRN Reason: Hypotension and/or symptomatic Propofol (Diprivan) 1,000 mg in 100 mls @ 0 mls/hr IV .Q0M [facility]; Protocol Last Titration: 04/23/21 04:45 Dose: 20 mcg/kg/min, 7.32 mls/hr Documented by: Fentanyl 2,500 mcg/ Sodium (Chloride) 250 mls @ 0 mls/hr IV .Q0M [facility]; Protocol Last Admin: 04/23/21 03:52 Dose: 50 mcg/hr, 5 mls/hr Documented by: Dextrose (D5w) 500 mls @ 100 mls/hr IV ONCE PRN; Protocol PRN Reason: Adult Acute Hypoglycemia Prot Insulin Human Lispro (Insulin Lispro 100 Unit/1 Ml) 0 unit SUBCUT WM&BEDTIME [facility]IE; Protocol Lactulose (Lactulose Oral Liq 20 Gm/30 Ml Udc) 10 gm PO DAILY PRN PRN Reason: CONSTIPATION Lorazepam (Lorazepam 2 Mg/Ml Inj 1 Ml) 2 mg IVP Q4H PRN PRN Reason: ANXIETY Last Admin: 04/21/21 00:01 Dose: 2 mg Documented by: Naloxone HCl (Naloxone 0.4 Mg/Ml Sdv) 0.1 mg IVP Q2M PRN PRN Reason: OPIATERV Ondansetron HCl (Ondansetron 2 Mg/Ml Sdv 2 Ml) 4 mg IVP Q8H PRN PRN Reason: vomiting, or N/V if npo Last Admin: 04/20/21 19:18 Dose: 4 mg Documented by: Senna/Docusate Sodium (Sennosides-Docusate Tablet) 2 tab PO DAILY [facility] Last Admin: 04/22/21 09:06 Dose: 2 tab Documented by: Vitals/I&O/Wt Last Vital Signs Temp 97 F L 04/22/21 16:00 Pulse 113 H 04/23/21 06:00 Resp 21 H 04/23/21 06:14 BP 130/74 04/23/21 04:01 Pulse Ox 95 04/23/21 06:14 04/22/21 04/23/21 04/23/21 22:59 06:59 14:59 Intake Total 1640.214 / 2640.214 696.381 / 3336.595 Output Total 1999 75 / 2150 Balance -359.786 / 565.214 621.381 / 1186.595 Weight last 48 hrs Weight 64.2 kg Physical Exam Narrative: EXAM NARRATIVE: intubated, off pressors vent fio2 60%, TV 350, peep 5, rr 14 set, overbreathing at 20 vs noted. heent- nc/at, eomi neck obese lungs crackles and ronchi b/l heart- tachycardic, reg abd soft, distended, + bs ext- 1+ b/l edema neuro- sedated rt neck dialysis catheter Urinary Catheter Management: Carroll: Cath Placed During This Visit: yes Reason for Continuing Indwelling Catheter: Accurate Measurement of Urinary Output in Critically Ill Patients Urinary Catheter Date of Insertion: 04/19/21 Urinary Catheter Time of Insertion: 01:00 Data : 04/23/21 06:20 04/23/21 06:20 A&P Assessment and plan (1) Acute kidney injury: 40 yr old female COVID-19+ , hypertriglyceridemia, pancreas inflammation on ct scan, TONY 1. leukocytosis- renal dose antivirals and abx - wbc improved from 27 to 15 to 8.7 2. TONY- ATN/ COVID-nephropathy- s/p HD last 3 days -repeat HD now- 3 hrs, 2k, remove 1.5l - hyponatremia- from tony -monitor w/ HD 3. resp acidosis- vdrf 4. hypocalcemia- replete ca and vit d and pth 274- calcitriol/ zemplar 5. hypertriglyceridemia is improving - TG now 583 we do not have plasmapheresis, and no beds were available for transfer -agree w/ lowering fat containing meds 6. pneumonia- vanco by level, renal dose zosyn 7. anemia-ferritin 481, tsat 26% - give chyna as hgb <9 -may benefit from 1 u prbc tx 8. inc lft seen and examined w/ RN- telehealth visit time spent 30 min Status: Acute Plan see above Attestations Medical Necessity Statement*: nulti-organ failure Time Spent in Patient Care: 16 - 35 minutes (>than 50% of time spent in counselling and/or direct pt care on unit). Coding Level of Care Code Acute Ultrasound Specialist for Chg Fwd Diagnoses Acute kidney injury N17.9
[2021-04-23 08:54] LABS: Glucose Point of Care 180 mg/dL (70-110)
[2021-04-23] MEDS: FUROsemide 10 mg/mL SDV 10mL 60 MG IVP (09:08)
[2021-04-23] MEDS: insulin lispro 100 unit/1 mL SUBCUT ×3 (09:10→17:50)
[2021-04-23] MEDS: sennosides-docusate Tablet 2 TAB PO (09:11)
[2021-04-23] MEDS: calcium carbonate 500 mg Chew Tablet 1000 MG PO ×3 (09:12→21:20)
[2021-04-23] MEDS: fenofibrate 145 mg Tablet PO (09:12)
[2021-04-23] MEDS: dexmedeTOMIDine 0.9 % NaCL 400 MCG/100 ML PREMIX IV ×2 (09:12→22:26)
[2021-04-23] MEDS: lactulose oral liq 20 gm/30 mL UDC PO (09:12)
[2021-04-23] MEDS: ferric gluconate 125 MG in sodium chloride 0.9% (100 ml) 100 ML 110 MG IV (09:48)
--- NOTE | 2021-04-23 09:48 | PC.CHAP ---
Pastoral Care Encounter/Spiritual Assessment Type of Contact [] Declined elementary educator visit [] Patient/Family/Request visit [] Outpatient visit [] Follow-up visit [] Physician referral [] Code/Alert [x] Routine visit [] Staff referral [] Actively dying [] Patient sleeping [x] Family support [] [] Out of room [] Palliative care [] [] Receiving care in room [] Pre-surgical visit [] Trauma [] Long length of stay [x] ICU visit [x] Other: patient handicapped.. mom and brother present Relational/Emotional Strength [] Patient feels connected with others/family/visitors/staff [] Distress [] Loneliness/isolation [] Abandonment Spirituality of Patient [] Person of Emelina [] Attends Hinduism of their Emelina [] Believes in Prayer [] Reads Bible or [place] materials [] There are Spiritual issues to be addressed Keg [place]isher Interventions [x] Prayer [] Active listening [] Non-anxious presence [] Spiritual/emotional support [] Crisis/trauma care [] Spiritual counseling [] Bereavement support [] Provided bereavement packet [] Provided Bible/devotional materials [] Provided toy/stuffed animal, coloring book to patient or family member [] Provided Communion [] Anointing/[place] [] Salvation [x] Completed spiritual assessment [] Other: Impact on Illness or Injury [] Angry [] Fearful [] Anxious [] Often cries [] Exhaustion [] Unable to work [] Unable to attend roman catholic [] Unable to walk/stand [] Unable to read [] Unable to drive [] Unable to eat/drink [] Unable to sleep [] Unable to be with family [] Patient intubated [] Other: Summary Time spent with patient
[2021-04-23] MEDS: dexamethasone 10 mg/mL INJ 6 MG IVP (11:18)
[2021-04-23 11:35] LABS: Glucose Point of Care 177 mg/dL (70-110)
[2021-04-23] MEDS: paricalcitol 2 mcg/mL SDV 1 mL 4 MCG IV (12:43)
[2021-04-23 12:55] LABS: Partial Thromboplastin Time 70.7 SECONDS (23.9-36.7)
[2021-04-23 13:05] LABS: Triglycerides 633 mg/dL (0-150)
[2021-04-23 13:23] LABS: LDL Cholesterol Direct 14 mg/dL (0-100)
--- NOTE | 2021-04-23 15:01 | PM.PN ---
Subjective Subjective: Interval history: She will need another dialysis session Fluid overloaded Pulmonary edema Leukocytosis improved No more febrile episodes since yesterday Continue IV antibiotics Hemoglobin stable 7.2 APTT 70 Wean down FiO2 Turn off propofol Off vasopressors Constipation: Did not respond to lactulose yesterday Hypokalemia Magnesium 2.4 Discontinued magnesium drip this morning Abnormal transaminases, triglyceride increasing, abdomen 2.5, alk phosphatase 223 D5 turned off last night chest x-ray showing pulmonary edema Of note patient has a 2.7 cm gallstone in the gallbladder ultrasound ordered on 04/19 Nonalcoholic fatty liver Vitals/I&O/Wt Last Vital Signs Temp 99.3 F 04/23/21 09:01 Pulse 84 04/23/21 14:59 Resp 22 H 04/23/21 14:59 BP 125/73 04/23/21 10:30 Pulse Ox 92 04/23/21 14:59 04/23/21 04/23/21 04/23/21 06:59 14:59 22:59 Intake Total 696.381 / 3336.595 481.446 / 481.446 Output Total 75 / 2150 2300 / 2300 Balance 621.381 / 1186.595 -1818.554 / -1818.554 Weight last 48 hrs Weight 68.8 kg Weight 64.2 kg Physical Exam Narrative: EXAM NARRATIVE: Patient intubated and sedated Fluid overloaded Abdomen firm bowel sounds very sluggish Bilateral breath sounds with crackles and rhonchi Assisted bilateral breath sounds Limited neuro exam S1, S2 sinus rhythm Urinary Catheter Management: Carroll: Cath Placed During This Visit: yes Reason for Continuing Indwelling Catheter: Accurate Measurement of Urinary Output in Critically Ill Patients Urinary Catheter Date of Insertion: 04/19/21 Urinary Catheter Time of Insertion: 01:00 Data : 04/23/21 06:20 04/23/21 06:20 A&P Assessment and plan (1) Abnormal transaminases: Status: Acute (2) Hypovolemic shock: Status: Acute (3) Aspiration pneumonia: Status: Acute (4) Acute respiratory distress syndrome (ARDS) due to 2019 novel coronavirus: Status: Acute (5) COVID: Status: Acute (6) ATN (acute tubular necrosis): Status: Acute (7) Increased anion gap metabolic acidosis: Status: Acute (8) Acute encephalopathy: Status: Acute (9) Pneumonia: Status: Acute (10) Acute pancreatitis: Status: Acute (11) Mild mental handicap: Status: Acute (12) Hypertriglyceridemia: Status: Acute Plan COVID-19 related hypoxia Mechanically ventilated Plan today is to discontinue propofol continue fentanyl and Precedex Sedation vacation Wean FiO2 down to 50% PEEP 5 Chest x-ray showing pulmonary edema will need another dialysis session High risk for worsening of ARDS related to pancreatitis Abnormal transaminases History of cholelithiasis High bilirubin and alk phosphatase noted We will obtain another ultrasound This might explain single episode of fever yesterday Continue Zosyn MRSA PCR negative Triglyceridemia induced pancreatitis triglycerides were less than 500 insulin drip turned off however this morning 633 triglyceride noted asked nurse to discontinue propofol trend triglyceride level to see if we need insulin drip again Hyperkalemia ATN hemodialysis session today Patient was given albumin yesterday for her fluid overloaded state she has persistent hypervolemic state, acidosis has improved, hyperkalemia noted Anemia Normocytic anemia hemoglobin trending down no active bleeding noted Currently patient is on heparin drip APTT therapeutic She is on heparin drip for PE Ileus: NG tube low intermittent suction Pulmonary pathology pulmonary edema, PE, aspiration pneumonia High risk for ARDS Guarded prognosis Hold tube feeds Attestations Medical Necessity Statement*: Continue ICU management Time Spent in Patient Care: 20min Coding Level of Care Code Acute Bus Or Truck Garage Mechanic for g Fwd Diagnoses Abnormal transaminases R74.8 Hypovolemic shock R57.1 Aspiration pneumonia J69.0 Acute respiratory distress syndrome (ARDS) due to 2019 novel coronavirus U07.1; J80 COVID U07.1 ATN (acute tubular necrosis) N17.0 Increased anion gap metabolic acidosis E87.2 Acute encephalopathy G93.40 Pneumonia J18.9 Acute pancreatitis K85.90 Mild mental handicap F70 Hypertriglyceridemia E78.1
[2021-04-23 15:41] LABS: Iron 37 ug/dL (37-145); Percent Saturation 23.5 % (20-50); Total Iron Binding Capacity 157 mcg/dl; Unsaturated Iron Binding 120 ug/dL (112-347)
[2021-04-23] MEDS: lactulose oral liq 20 gm/30 mL UDC 200 GM PR (17:00)
[2021-04-23 17:20] LABS: Glucose Point of Care 143 mg/dL (70-110)
[2021-04-23 18:31] LABS: Hemoglobin 6.8 g/dL (11.5-15.3); Mean Corpuscular HGB Conc 34.2 g/dL (30.0-36.0); Mean Corpuscular Hemoglobin 30.6 pg (28.0-34.0); Mean Corpuscular Volume 89.6 fl (81-99); Mean Platelet Volume 12.2 fL (7.4-10.4); Platelet Count 176 10^3/cmm (130-400); Red Blood Count 2.22 10^6/uL (4.1-5.3); Red Cell Distribution Width 14.5 % (12.1-15.1); White Blood Count 8.8 10^3/uL (4.0-10.0)
--- NOTE | 2021-04-23 18:35 | PC.NURSE ---
SHift summary: Uneventful shift. patient rested in bed throughout the day. Received dialysis and had 1.5 liters removed. Dialysis was uneventful. Propofol and versed weaned off. Patient is on precedex and fentanyl for sedation.
[2021-04-23 18:53] LABS: Alanine Aminotransferase 308 U/L (0-33); Albumin Level 2.5 g/dL (3.5-5.2); Alkaline Phosphatase 376 IU/L (35-105); Anion Gap 20.4 (5-19); Blood Urea Nitrogen 10 mg/dL (6-20); Calcium 7.9 mg/dL (8.5-10.5); Carbon Dioxide 23 mmol/L (22-29); Chloride 97 mmol/L (98-107); Globulin 2.9 g/dL (1.3-4.6); Glomerular Filtration Rate 35.9 mL/min (90-130); Glucose 137 mg/dL (65-115); Osmolality Calculated 283 mOsm/kg (285-295); Potassium 4.4 mmol/L (3.5-5.1); Sodium 136 mmol/L (136-145); Total Bilirubin 1.5 mg/dL (0.15-1.2); Total Protein 5.4 g/dL (6.6-8.7)
[2021-04-23 19:02] LABS: Aspartate Amino Transferase 773 U/L (0-32)
[2021-04-23 19:17] LABS: Slide Review Slide Review Perform
[2021-04-23 19:22] LABS: Ethylene Glycol <10.0 mg/L (***)
[2021-04-23 19:23] LABS: Hematocrit 19.9 % (37.0-47.0)
[2021-04-23 19:26] LABS: Total Cells Counted 100 (0-100)
[2021-04-23 19:27] LABS: Absolute Segmented Neutrophil 6.6 10/cmm (1.6-7.1); Band Neutrophils Absolute 0.4 10^3/cmm (0.0-1.2); Corrected White Blood Count 8.5 10^3/cmm (4.8-10.8); Eosinophils 0 %; Hypochromasia 2+; Lymphocytes 8 %; Lymphocytes Absolute 0.7 10^3/cmm (1.2-3.4); Platelet Estimate Normal (Normal); Segmented Neutrophils 75 %
[2021-04-23 21:19] LABS: Glucose Point of Care 147 mg/dL (70-110)
[2021-04-23] MEDS: sodium chloride 0.9% (100 ml) 100 ML (23:15)
[2021-04-24] VITALS (65 sets, daily range): BP systolic 105–160; BP diastolic 71–109; PULSE 71–128; RESP 20–36; TEMP 36.5–38.6; O2SAT 90–100
--- NOTE | 2021-04-24 00:36 | PC.NURSE ---
Zosyn Administration. RN found Zosyn running at time of shift change. Current running infusion did not end until 04/23 at 2250. Next admin scheduled for 0000 on 04/24. One admin adjusted to satisfy Q12HR administration orders. Discussed with MD and pharmacy. MAR updated to reflect change.
[2021-04-24 01:03] LABS: Triglycerides 447 mg/dL (0-150)
[2021-04-24 01:28] LABS: LDL Cholesterol Direct 16 mg/dL (0-100)
[2021-04-24] MEDS: famotidine 20 mg/2 mL INJ IVP ×2 (03:23→15:22)
[2021-04-24] MEDS: ipratropium-albuterol 3 mL Neb INHALATION ×4 (03:27→20:50)
[2021-04-24 05:14] LABS: Basophils % 0.5 %; Eosinophils % 0.3 %; Hemoglobin 8.8 g/dL (11.5-15.3); Lymphocytes % 12.6 %; Mean Corpuscular HGB Conc 33.8 g/dL (30.0-36.0); Mean Corpuscular Hemoglobin 30.2 pg (28.0-34.0); Mean Corpuscular Volume 89.3 fl (81-99); Mean Platelet Volume 12.9 fL (7.4-10.4); Monocytes # 0.6 10^3/uL (0.2-0.9); Monocytes % 7.7 %; Neutrophils # 5.42 10^3/uL (1.8-7.7); Neutrophils % 70.9 %; Nucleated Red Blood Cells # 0.1 /100WBC; Nucleated Red Blood Cells % 1.8 %; Platelet Count 178 10^3/cmm (130-400); Red Blood Count 2.91 10^6/uL (4.1-5.3); Red Cell Distribution Width 14.1 % (12.1-15.1); White Blood Count 7.6 10^3/uL (4.0-10.0)
[2021-04-24 05:22] LABS: Partial Thromboplastin Time 56.1 SECONDS (23.9-36.7)
[2021-04-24 05:40] LABS: Alanine Aminotransferase 243 U/L (0-33); Albumin Level 2.6 g/dL (3.5-5.2); Alkaline Phosphatase 549 IU/L (35-105); Aspartate Amino Transferase 348 U/L (0-32); Blood Urea Nitrogen 18 mg/dL (6-20); Calcium 7.3 mg/dL (8.5-10.5); Carbon Dioxide 23 mmol/L (22-29); Chloride 96 mmol/L (98-107); Globulin 2.7 g/dL (1.3-4.6); Glomerular Filtration Rate 24.8 mL/min (90-130); Glucose 144 mg/dL (65-115); Magnesium 2.4 mg/dL (1.7-2.3); Osmolality Calculated 284 mOsm/kg (285-295); Phosphorus 3.7 mg/dL (2.5-4.5); Sodium 135 mmol/L (136-145); Total Protein 5.3 g/dL (6.6-8.7); Triglycerides 473 mg/dL (0-150)
[2021-04-24] MEDS: heparin drip 25,000 UNIT/500 ML PREMIX 25.6 UNIT IV (06:27)
[2021-04-24 06:29] LABS: LDL Cholesterol Direct 15 mg/dL (0-100); Slide Review Slide Review Perform
[2021-04-24] MEDS: remdesivir 100 MG in sodium chloride 0.9% (100 ml) 100 ML IV (06:52)
--- NOTE | 2021-04-24 06:58 | PC.NURSE ---
Shift Summary; Pt rested throughout shift. 1 unit PRBC given per MD orders. Other orders given to give additional 1 unit PRBC with dialysis if needed. Loose bowel movement X3 overnight. Bed bath/linen change. Verbal orders given by MD Josiah to wait to check H&H with AM labs after administration of PRBC infusion. Report given to juan carlos johnson RN.
[2021-04-24 07:47] LABS: Partial Thromboplastin Time 49.4 SECONDS (23.9-36.7)
[2021-04-24 08:28] LABS: Glucose Point of Care 123 mg/dL (70-110)
[2021-04-24] MEDS: sennosides-docusate Tablet 2 TAB PO (08:32)
[2021-04-24] MEDS: fenofibrate 145 mg Tablet PO (08:32)
[2021-04-24] MEDS: calcium carbonate 500 mg Chew Tablet 1000 MG PO ×3 (08:32→21:49)
[2021-04-24] MEDS: ferric gluconate 125 MG in sodium chloride 0.9% (100 ml) 100 ML 110 MG IV (08:59)
[2021-04-24] MEDS: heparin 5,000 unit/mL INJ 1 mL IV ×2 (09:37→16:49)
--- NOTE | 2021-04-24 10:06 | PC.SOCIAL ---
IMM not updated IMM not updated as patient is intubated and not expected to dc in the next 24-48 hours.
[2021-04-24] MEDS: dexamethasone 10 mg/mL INJ 6 MG IVP (10:22)
[2021-04-24] MEDS: piperacillin-tazobactam 3.375 GM in sodium chloride 0.9% (plus) 50 ML IV ×2 (10:23→12:48)
[2021-04-24] MEDS: dexmedeTOMIDine 0.9 % NaCL 400 MCG/100 ML PREMIX 7.62 MCG IV ×2 (10:24→23:19)
--- NOTE | 2021-04-24 10:34 | P.PN_ITS ---
Subjective Subjective: Interval history: Ms. Mckeon remains critically sick in the intensive care unit. Currently undergoing weaning trials and we hope to extubate today. She received hemodial ysis yesterday, tolerating the procedure quite well, total ultrafiltration of 2 L. Currently FiO2 50% and PEEP of 8. Minimal urine output. Currently not on vasopressor agents. Vitals/I&O/Wt Last Vital Signs Temp 97.7 F 04/24/21 04:00 Pulse 89 04/24/21 09:12 Resp 27 H 04/24/21 09:02 BP 146/107 04/24/21 04:00 Pulse Ox 94 04/24/21 09:02 04/23/21 04/24/21 04/24/21 22:59 06:59 14:59 Intake Total 789.919 / 1081.365 764.823 / 1846.188 500.328 / 500.328 Output Total 3350 / 3350 Balance -2560.081 / -2268.635 764.823 / -1503.812 500.328 / 500.328 Weight last 48 hrs Weight 69.3 kg Weight 68.8 kg Physical Exam Narrative: EXAM NARRATIVE: Constitutional: Intubated and vented HEENT: Wet mucosa, no jvp, non icteric Lungs: Bilaterally clear without discernible wheeze or rales in all lung zones CVS: S1 S2, no murmurs Abdo: Soft, BS ok Ext 4: Minimal edema, peripheral perfusion with no cyanosis Neurological: Grossly non-focal Urinary Catheter Management: Carroll: Cath Placed During This Visit: yes Reason for Continuing Indwelling Catheter: Accurate Measurement of Urinary Output in Critically Ill Patients Urinary Catheter Date of Insertion: 04/19/21 Urinary Catheter Time of Insertion: 01:00 Data : 04/24/21 03:59 04/24/21 03:59 Micro: Microbiology 04/18/21 21:49 Blood Culture - Final Blood NO GROWTH AFTER 5 DAYS 04/18/21 22:07 Blood Culture - Final Blood NO GROWTH AFTER 5 DAYS A&P Assessment and plan (1) ATN (acute tubular necrosis): 1. Acute kidney injury Remains oligoanuric, likely secondary to acute tubular injury No indication for dialysis today, plan to dialysis tomorrow 3K bath ultrafiltration 2-3 L as tolerated Strict I's and O's Close monitoring for recovery Dose medication for GFR less than 15 on dialysis 2. Vent dependent respiratory failure Management per the ICU team, hopefully extubated today. 3. Pancreatitis Secondary to hypertriglyceridemia, triglyceride levels now trending down, below 500 Of note we do not have access to plasmapheresis. 4. Chemistry Minor noncritical aberration, continue to monitor. Thank you for consultation, it is a pleasure to follow these cases with you Exam and interview performed with aid of bedside RN using telemedicine Time spent 20 min inc > 50% of time in face to face counseling Pollo Seo MD [facility] [phone] Status: Acute Attestations Medical Necessity Statement*: eval for renal failure Coding Level of Care Code Acute Seamless Tube Roller for Chg Fwd Diagnoses ATN (acute tubular necrosis) N17.0
[2021-04-24 11:27] LABS: Glucose Point of Care 143 mg/dL (70-110)
[2021-04-24] MEDS: insulin lispro 100 unit/1 mL SUBCUT (11:32)
--- NOTE | 2021-04-24 11:46 | P.PN_ITS ---
Subjective Subjective: Interval history: Triglyceride 4 on 73, off insulin drip Propofol turned off Requested ultrasound abdomen for gallbladder evaluation for worsening bilirubin and transaminases Not hypotensive Fluid overloaded She had 2 bowel movement with lactulose yesterday NG to suction only 100 mL bilious content Abdomen is soft No febrile episodes Negative fluid balance Hemoglobin 8.8 Currently on heparin drip APTT 49.4 to be redrawn after 4 hours FiO2 50% PEEP 8 Plan for dialysis tomorrow Patient is still oliguric Vitals/I&O/Wt Last Vital Signs Temp 97.7 F 04/24/21 04:00 Pulse 98 04/24/21 10:30 Resp 27 H 04/24/21 10:51 BP 133/106 04/24/21 10:30 Pulse Ox 92 04/24/21 10:51 04/23/21 04/24/21 04/24/21 22:59 06:59 14:59 Intake Total 789.919 / 1081.365 764.823 / 1846.188 500.328 / 500.328 Output Total 3350 / 3350 Balance -2560.081 / -2268.635 764.823 / -1503.812 500.328 / 500.328 Weight last 48 hrs Weight 69.3 kg Weight 68.8 kg Physical Exam Narrative: EXAM NARRATIVE: Patient is intubated and sedated Abdomen is much softer and less firm as compared to yesterday Bowel sound present Fluid overloaded Generalized anasarca Neuro exam limited PEEP 8 FiO2 50% On mechanical ventilator Assisted bilateral breath sounds Urinary Catheter Management: Carroll: Cath Placed During This Visit: yes Reason for Continuing Indwelling Catheter: Accurate Measurement of Urinary Output in Critically Ill Patients Urinary Catheter Date of Insertion: 04/19/21 Urinary Catheter Time of Insertion: 01:00 Data : 04/24/21 03:59 04/24/21 03:59 Micro: Microbiology 04/18/21 21:49 Blood Culture - Final Blood NO GROWTH AFTER 5 DAYS 04/18/21 22:07 Blood Culture - Final Blood NO GROWTH AFTER 5 DAYS A&P Assessment and plan (1) Abnormal transaminases: Status: Acute (2) Hypovolemic shock: Status: Acute (3) Aspiration pneumonia: Status: Acute (4) Acute respiratory distress syndrome (ARDS) due to 2019 novel coronavirus: Status: Acute (5) ATN (acute tubular necrosis): Status: Acute (6) COVID: Status: Acute (7) Acute pancreatitis: Status: Acute (8) Hypertriglyceridemia: Status: Acute Plan Ventilator dependent respiratory failure related to COVID-19 PEEP 8 FiO2 50%, sedation vacation, propofol off currently on fentanyl and Precedex Start weaning trial tomorrow Off vasopressors ATN Plan for dialysis tomorrow Patient is not acidotic anymore Resistant hypervolemia Acute PE currently on heparin drip redraw APTT after 4 hours Recurrent pulmonary edema, ARDS, pancreatitis: Requiring dialysis, likely patient is improving to dialysis sessions her oxygen requirement has not worsened Aspiration pneumonia: Continue IV antibiotics Abnormal transaminases and high bilirubin requesting ultrasound abdomen for ruling out acute cholecystitis, she does have cholelithiasis Hypertriglyceridemia new pancreatitis no signs of necrosis or sepsis related to pancreatitis, might repeat CT scan over the weekend We will trend lipase level for tomorrow Triglyceride less than 500 Off insulin drip Anemia chronic disease: Hemoglobin stable Ileus: Patient had 2 bowel movement with lactulose enema yesterday NG to low intermittent suction Her triglycerides are very labile, will start nutrition via TPN versus NG, get KUB today Guarded prognosis Mother at the bedside Spoken with licensed professional counselor Full code Attestations Medical Necessity Statement*: Continue medical management Time Spent in Patient Care: 20min Coding Level of Care Code Acute Sewer Pipe Sorter for Chg Fwd Diagnoses Abnormal transaminases R74.8 Hypovolemic shock R57.1 Aspiration pneumonia J69.0 Acute respiratory distress syndrome (ARDS) due to 2019 novel coronavirus U07.1; J80 ATN (acute tubular necrosis) N17.0 COVID U07.1 Acute pancreatitis K85.90 Hypertriglyceridemia E78.1
--- NOTE | 2021-04-24 11:53 | XR_ITS ---
WS: [id number] XR KUB portable [id number] REASON FOR EXAM: Ileus FINDINGS: Central venous catheter overlying the right hip joint, presumably within the femoral/iliac vein. Mild/moderate gaseous distention segments of colon and the stomach. Nasogastric tube has been withdrawn to the fundal region. There is no small bowel dilatation. XR/XR KUB portable [id number] IMPRESSION: Nonspecific colon distention which was seen on the CT scan of 04/22/2021. Bowel g as pattern is not suggestive of ileus or obstruction.
--- NOTE | 2021-04-24 13:14 | PC.NUTR ---
If medically appropriate, recommend consideration of TF Glucerna 1.2 starting @ 10 mls/hr and advancing Q8H as tolerated to goal rate of 40 mls/hr, with FWF 100 mls Q4H or per MD discretion. If TPN is considered, recommend Clinimix 5/20 begun @ 10 ml/hr and increase by 10 ml/hr Q8H until infusing @ 42 ml/hr, with addition of standard electrolytes and Multivitamins 10 mls/day.
--- NOTE | 2021-04-24 13:59 | PC.NURSE ---
continue to remain off sedation heart rate elevated and respritory rate elevated place back on vent for short time to rest
[2021-04-24 14:12] LABS: Alcohol, Methyl None Detected; Volatile Analysis Performed On Whole Blood
--- NOTE | 2021-04-24 15:18 | PC.NURSE ---
ativan given and increased sedation talked with mother and doctor will keep on vent today and start dialysis today
[2021-04-24 15:29] LABS: ABG PCO2 30.6 mmHg (35-45); ABG PH Result 7.43 (7.35-7.45); Alveolar-Arterial Oxygen Gradi 23.9 mmHg (5-10); Arterial Blood Gas Hematocrit 29.7 % (37-47); Base Excess ABG -3.2 mmol/L (-2.0-2.0); Blood Gas Allen Test Pos; Blood Gas Operator Identificat CAK; Blood Gas Sample Site Radial, right; Blood Gas Sample Type Arterial; Blood Gas Tidal Volume 0.35; Carboxyhemoglobin 0.7 %THgb (0.4-20.1); HCO3 ABG 20.4 mmol/L (22-26); HGB O2 Sat 94.1 % (95-100); Methemoglobin < 0.0 % (0.4-1.5); Oxygen Device VENT; Oxygen Saturation ABG 93.6; Potassium Level - ABG 4.3 mmol/L (3.5-5.0); Total Hemoglobin 9.7 g/dL (12-16)
--- NOTE | 2021-04-24 15:42 | PM.PN ---
Subjective Subjective: Interval history: -Patient seen at bedside -Off insulin drip and currently on subcutaneous insulin-triglyceride 473; off propofol -Today we will taper off sedation and assess mentation - Received 1 unit PRBC yesterday -Off pressor -Still oliguric-we will continue hemodialysis for fluid overload -Decreasing NG output and had 2 bowel movements yesterday -On heparin drip for PE -Other labs and imaging reviewed Medications: Reviewed: Yes Medication Review Details: Current Medications Acetaminophen (Acetaminophen 325 Mg Tablet) 650 mg PO Q6H PRN PRN Reason: Mild/Mod Pain Or Temp >/= 101 Albuterol/Ipratropium (Ipratropium-Albuterol 3 Ml Neb) 3 ml INHALATION Q6H.RESPIRATORY ANNIE Last Admin: 04/23/21 03:41 Dose: 3 ml Documented by: Calcium Carbonate (Calcium Carbonate 500 Mg Chew Tablet) 1,000 mg PO TID ANNIE Last Admin: 04/22/21 21:31 Dose: 1,000 mg Documented by: Dexamethasone (Dexamethasone 10 Mg/Ml Inj) 6 mg IVP Q24H ANNIE Last Admin: 04/22/21 13:38 Dose: 6 mg Documented by: Dextrose (Dextrose 50% Syringe 50 Ml) 25 ml IVP ONCE PRN; Protocol PRN Reason: hypoglycemia protocol Last Admin: 04/20/21 00:25 Dose: 25 ml Documented by: Dextrose (Dextrose 50% Syringe 50 Ml) 50 ml IVP PRN PRN; Protocol PRN Reason: hypoglycemia protocol Last Admin: 04/19/21 20:35 Dose: 50 ml Documented by: Dextrose (Dextrose 50% Syringe 50 Ml) 25 ml IVP ONCE PRN; Protocol PRN Reason: hypoglycemia protocol Dextrose (Dextrose 50% Syringe 50 Ml) 50 ml IVP PRN PRN; Protocol PRN Reason: hypoglycemia protocol Ergocalciferol (Ergocalciferol (Vitamin D2) 50,000 Unit Capsule) 50,000 unit PO Q7D [facility] Last Admin: 04/21/21 12:04 Dose: 50,000 unit Documented by: Famotidine (Famotidine 20 Mg/2 Ml Inj) 20 mg IVP Q12H ANNIE Last Admin: 04/23/21 01:38 Dose: 20 mg Documented by: Fenofibrate (Fenofibrate 145 Mg Tablet) 145 mg PO DAILY ANNIE Last Admin: 04/22/21 09:06 Dose: 145 mg Documented by: Glucagon (Glucagon 1 Mg/Ml Inj 1 Ml) 1 mg IM ONCE PRN; Protocol PRN Reason: Adult Acute Hypoglycemia Prot Glucagon (Glucagon 1 Mg/Ml Inj 1 Ml) 1 mg IM ONCE PRN; Protocol PRN Reason: Adult Acute Hypoglycemia Prot. Heparin Sodium (Porcine) (Heparin 5,000 Unit/Ml Inj 1 Ml) 5,000 unit SUBCUT Q12H [facility] Last Admin: 04/21/21 04:54 Dose: Not Given Documented by: Dextrose (D5w) 500 mls @ 100 mls/hr IV ONCE PRN; Protocol PRN Reason: Adult Acute Hypoglycemia Prot Last Infusion: 04/20/21 18:12 Dose: Infused Documented by: Insulin Human Regular 250 unit (/ Sodium Chloride) 252.5 mls @ 0 mls/hr IV .Q0M [facility]; Protocol Last Titration: 04/22/21 21:29 Dose: 0 unit/hr, 0 mls/hr Documented by: Piperacillin Sod/Tazobactam (Sod 3.375 gm/ Sodium Chloride) 50 mls @ 12.5 mls/hr IV Q12H [facility]; Protocol Last Infusion: 04/23/21 05:37 Dose: Infused Documented by: Dextrose/Sodium Chloride (Dextrose 5%-Sod Chloride 0.45%) 1,000 mls @ 200 mls/hr IV .Q5H [facility] Last Admin: 04/23/21 03:14 Dose: Not Given Documented by: Norepinephrine Bitartrate 4 mg (/ Dextrose) 254 mls @ 0 mls/hr IV .Q0M ANNIE; Protocol Last Titration: 04/21/21 22:00 Dose: Infused Documented by: Remdesivir 100 mg/ Sodium (Chloride) 100 mls @ 100 mls/hr IV Q24H [facility] Stop: 04/24/21 06:59 Last Admin: 04/23/21 05:05 Dose: 100 mls/hr Documented by: Norepinephrine Bitartrate 4 mg (/ Dextrose) 254 mls @ 0 mls/hr IV .Q0M [facility]; Protocol Last Titration: 04/22/21 05:16 Dose: 0 mcg/min, 0 mls/hr Documented by: Heparin Sodium/Sodium Chloride (Heparin Drip) 25,000 unit in 500 mls @ 0 mls/hr IV .Q0M [facility]; Protocol Last Admin: 04/23/21 04:22 Dose: 20 unit/kg/hr, 24.39 mls/hr Documented by: dexmedeTOMIDine 0.9 % NaCL (Precedex) 400 mcg in 100 mls @ 0 mls/hr IV .Q0M ANNIE; Protocol Last Titration: 04/21/21 01:15 Dose: 0 mcg/kg/hr, 0 mls/hr Documented by: Albumin Human (Albumin) 12.5 gm in 50 mls @ 60 mls/hr IV PRN PRN PRN Reason: Hypotension and/or symptomatic Propofol (Diprivan) 1,000 mg in 100 mls @ 0 mls/hr IV .Q0M ANNIE; Protocol Last Titration: 04/23/21 04:45 Dose: 20 mcg/kg/min, 7.32 mls/hr Documented by: Fentanyl 2,500 mcg/ Sodium (Chloride) 250 mls @ 0 mls/hr IV .Q0M ANNIE; Protocol Last Admin: 04/23/21 03:52 Dose: 50 mcg/hr, 5 mls/hr Documented by: Dextrose (D5w) 500 mls @ 100 mls/hr IV ONCE PRN; Protocol PRN Reason: Adult Acute Hypoglycemia Prot Insulin Human Lispro (Insulin Lispro 100 Unit/1 Ml) 0 unit SUBCUT WM&BEDTIME ANINE; Protocol Lactulose (Lactulose Oral Liq 20 Gm/30 Ml Udc) 10 gm PO DAILY PRN PRN Reason: CONSTIPATION Lorazepam (Lorazepam 2 Mg/Ml Inj 1 Ml) 2 mg IVP Q4H PRN PRN Reason: ANXIETY Last Admin: 04/21/21 00:01 Dose: 2 mg Documented by: Naloxone HCl (Naloxone 0.4 Mg/Ml Sdv) 0.1 mg IVP Q2M PRN PRN Reason: OPIATERV Ondansetron HCl (Ondansetron 2 Mg/Ml Sdv 2 Ml) 4 mg IVP Q8H PRN PRN Reason: vomiting, or N/V if npo Last Admin: 04/20/21 19:18 Dose: 4 mg Documented by: Senna/Docusate Sodium (Sennosides-Docusate Tablet) 2 tab PO DAILY ANNIE Last Admin: 04/22/21 09:06 Dose: 2 tab Documented by: Vitals/I&O/Wt Last Vital Signs Temp 98.8 F 04/24/21 12:30 Pulse 105 H 04/24/21 14:30 Resp 22 H 04/24/21 14:27 BP 141/94 04/24/21 12:30 Pulse Ox 93 04/24/21 14:27 04/24/21 04/24/21 04/24/21 06:59 14:59 22:59 Intake Total 764.823 / 1846.188 530.536 / 530.536 Balance 764.823 / -1503.812 530.536 / 530.536 Weight last 48 hrs Weight 152 lb 12.485 oz Weight 151 lb 10.848 oz Physical Exam Narrative: EXAM NARRATIVE: PHYSICAL EXAM: General: lying in bed, sedated and intubated. HEENT:NCAT, PERRLA, EOMI Neck: Supple Lungs: Improving bilateral breath sounds, Heart: s1/s2, RRR Abd: soft, NT, ND, BS + Normoactive Extremities: No edema [employer] TENDER: sedated and limited [employer] TENDER exam possible. SKIN: no rash LDA: # CVC: Right femoral line 04/20/2021 # HD Cath : Right internal jugular 04/20/2021 Urinary Catheter Management: Carroll: Cath Placed During This Visit: yes Reason for Continuing Indwelling Catheter: Accurate Measurement of Urinary Output in Critically Ill Patients Urinary Catheter Date of Insertion: 04/19/21 Urinary Catheter Time of Insertion: 01:00 Data : 04/24/21 03:59 04/24/21 03:59 Other Labs: Radiology Impressions Abdomen/Pelvis CT 04/18/21 23:01 IMPRESSION: 1. Hazy bilateral pulmonary opacities which are consistent with COVID-19. 2. Acute pancreatitis. 3. Small amount of gas in the urinary bladder which may be secondary to recent manipulation or infection. Abdomen Ultrasound 04/19/21 02:25 IMPRESSION: 1. Cholelithiasis. Chest CT 04/19/21 02:25 IMPRESSION: 1. Nonspecific gallbladder distention. No calcified stones. 2. Mild retroperitoneal stranding about the pancreas, correlate with pancreatic enzymes. 3. Bilateral pulmonary infiltrates which may be seen with atypical pneumonia. Head CT 04/19/21 02:25 IMPRESSION: 1. No acute infarct or hemorrhage. 2. No calvarial or skull base fracture. 3. Paranasal sinus mucosal thickening. Chest/Abdomen/Pelvis CT 04/22/21 07:35 IMPRESSION: 1. Proximal main pulmonary arteries are normal. A few filling defects in the left lower lobe pulmonary artery suspicious for pulmonary embolus. Images degraded by breathing artifact. 2. Endotracheal tube with tip above the tracey. Enteric tube with tip below the diaphragm in the distal stomach. 3. Air-fluid level in the stomach. Air distended transverse colon compatible with adynamic ileus. 4. Diffuse bilateral pulmonary infiltrates have improved in the lung bases but progressed in the perihilar regions and upper lobes with partial confluence and consolidation in the lung apices with air bronchograms. 5. Small amount of pancreatic edema is similar to previous. Recommend correlation for pancreatitis. 6. Enlarged kidneys bilaterally with heterogeneous enhancement. Correlation for renal insufficiency. No hydronephrosis. 7. Small amount of free fluid in the pelvis. Diffuse body wall anasarca. Message left for Paresh Reese MD at 04/22/2021 11:55 AM. Chest X-Ray 04/23/21 06:49 IMPRESSION: 1. Orogastric tube has been retracted but the tip still remains adequately positioned within the stomach. 2. Endotracheal tube in good position. 3. Continued bilateral dense opacifications. No interval change. KUB X-Ray 04/24/21 11:53 IMPRESSION: Nonspecific colon distention which was seen on the CT scan of 04/22/2021. Bowel gas pattern is not suggestive of ileus or obstruction. Laboratory Results WBC 7.6 10^3/uL (4.0-10.0) 04/24/21 03:59 Corrected WBC 8.5 10^3/cmm (4.8-10.8) 04/23/21 18:20 RBC 2.91 10^6/uL (4.1-5.3) L 04/24/21 03:59 Hgb 8.8 g/dL (11.5-15.3) L 04/24/21 03:59 Hct 26.0 % (37.0-47.0) L D 04/24/21 03:59 MCV 89.3 fl (81-99) 04/24/21 03:59 MCH 30.2 pg (28.0-34.0) 04/24/21 03:59 MCHC 33.8 g/dL (30.0-36.0) 04/24/21 03:59 RDW 14.1 % (12.1-15.1) 04/24/21 03:59 Plt Count 178 10^3/cmm (130-400) 04/24/21 03:59 MPV 12.9 fL (7.4-10.4) H 04/24/21 03:59 Neut % (Auto) 70.9 % 04/24/21 03:59 Lymph % (Auto) 12.6 % 04/24/21 03:59 [place] % (Auto) 7.7 % 04/24/21 03:59 Eos % (Auto) 0.3 % 04/24/21 03:59 Baso % (Auto) 0.5 % 04/24/21 03:59 Neut # (Auto) 5.42 10^3/uL (1.8-7.7) 04/24/21 03:59 Lymph # (Auto) 1.0 10^3/uL (0.8-4.8) 04/24/21 03:59 [place] # (Auto) 0.6 10^3/uL (0.2-0.9) 04/24/21 03:59 Eos # (Auto) 0.0 10^3/uL (0.0-0.8) 04/24/21 03:59 Baso # (Auto) 0.0 10^3/uL (0.0-0.1) 04/24/21 03:59 Nucleated RBC % (auto) 1.8 % 04/24/21 03:59 Total Counted 100 (0-100) 04/23/21 18:20 Atypical Lymphs % 0.0 % (0-5) 04/23/21 18:20 Absolute Neutrophils 7.0 10^3/cmm (1.4-6.5) H 04/23/21 18:20 Segmented Neutrophils 75 % 04/23/21 18:20 Abs Segm Neuts (Man) 6.6 10/cmm (1.6-7.1) 04/23/21 18:20 Band Neutrophils 4.0 % 04/23/21 18:20 Abs Band Neuts (Man) 0.4 10^3/cmm (0.0-1.2) 04/23/21 18:20 Absolute Lymphocytes 0.7 10^3/cmm (1.2-3.4) L 04/23/21 18:20 Lymphocytes (Manual) 8 % 04/23/21 18:20 Monocytes (Manual) 0.0 % 04/23/21 18:20 Absolute Monocytes 0.0 10^3/cmm (0.1-0.6) L 04/23/21 18:20 Eosinophils (Manual) 0 % 04/23/21 18:20 Absolute Eosinophils 0.0 10^3/cmm (0.0-0.7) 04/23/21 18:20 Basophils (Manual) 0.0 % 04/23/21 18:20 Absolute Basophils 0.0 10^3/cmm (0.0-0.2) 04/23/21 18:20 Metamyelocytes 5.0 % 04/23/21 18: Myelocytes 8.0 % 04/23/21 18:20 Nucleated RBCs 4.0 /100WBC (0-1) H 04/23/21 18:20 Nucleated RBCs # 0.1 /100WBC 04/24/21 03:59 Platelet Estimate Normal (Normal) 04/23/21 18:20 Hypochromasia 2+ H 04/23/21 18:20 Basophilic Stippling Trace 04/21/21 Unknown Anisocytosis 1+ H 04/21/21 Unknown PT 16.40 SECONDS (12.1-14.9) H 04/19/21 03:00 INR 1.28 (0.8-1.2) H 04/19/21 03:00 APTT 49.4 SECONDS (23.9-36.7) H 04/24/21 07:12 Fibrinogen 310 mg/dL (174-498) 04/19/21 03:00 Fibrin Degrad Products Pos, 10-40 ug/mL (NEG) H 04/19/21 03:00 D-Dimer 6.68 ug/mIFEU (0-0.59) H 04/21/21 03:50 Specimen Type Arterial 04/24/21 15:18 Sample Site Radial, right 04/24/21 15:18 ABG pH 7.43 (7.35-7.45) 04/24/21 15:18 ABG pCO2 30.6 mmHg (35-45) L 04/24/21 15:18 ABG pO2 66.0 mmHg (80.0-100.0) L 04/24/21 15:18 ABG HCO3 20.4 mmol/L (22-26) L 04/24/21 15:18 ABG O2 Saturation 93.6 04/24/21 15:18 ABG Base Excess -3.2 mmol/L (-2.0-2.0) L 04/24/21 15:18 Dennis Test Pos 04/24/21 15:18 A-a O2 Gradient 23.9 mmHg (5-10) H 04/24/21 15:18 Hematocrit 29.7 % (37-47) L 04/24/21 15:18 Hgb O2 Saturation 94.1 % (95-100) L 04/24/21 15:18 Carboxyhemoglobin 0.7 %THgb (0.4-20.1) 04/24/21 15:18 Methemoglobin < 0.0 % (0.4-1.5) L 04/24/21 15:18 Total Hemoglobin 9.7 g/dL (12-16) L 04/24/21 15:18 Sodium 136.0 mmol/L (131-143) 04/24/21 15:18 Potassium 4.3 mmol/L (3.5-5.0) 04/24/21 15:18 Glucose 117.0 mg/dL (70-115) H 04/21/21 13:25 Ionized Calcium 1.0 mmol/L (1.1-1.4) L 04/21/21 13:25 Respiration Rate 20.0 % 04/23/21 05:25 O2 Delivery Device Vent 04/24/21 15:18 FiO2 40.0 % 04/24/21 15:18 Tidal Volume 0.35 04/24/21 15:18 PEEP 8.0 cmH20 04/24/21 15:18 Textile Machine Mechanic ID Cak 04/24/21 15:18 Sodium 135 mmol/L (136-145) L 04/24/21 03:59 Potassium 4.0 mmol/L (3.5-5.1) 04/24/21 03:59 Chloride 96 mmol/L (98-107) L 04/24/21 03:59 Carbon Dioxide 23 mmol/L (22-29) 04/24/21 03:59 Anion Gap 20.0 (5-19) H 04/24/21 03:59 BUN 18 mg/dL (6-20) 04/24/21 03:59 Creatinine 2.2 mg/dL (0.5-0.9) H 04/24/21 03:59 GFR Calculation 24.8 mL/min (90-130) L 04/24/21 03:59 Glucose 144 mg/dL (65-115) H 04/24/21 03:59 POC Glucose 143 mg/dL (70-110) H 04/24/21 11:25 Estimat Average Glucose 134 04/18/21 22:48 Hemoglobin A1c 6.3 % (4.0-6.0) H 04/18/21 22:48 Calculated Osmolality 284 mOsm/kg (285-295) L 04/24/21 03:59 Lactic Acid 5.1 mmol/L (0.5-2.2) H* 04/20/21 03:20 Lactic Acid (Sepsis) 4.7 mmol/L (0.5-2.2) H* 04/20/21 06:47 Uric Acid 12.0 mg/dL (2.4-5.7) H 04/20/21 09:20 Calcium 7.3 mg/dL (8.5-10.5) L 04/24/21 03:59 Phosphorus 3.7 mg/dL (2.5-4.5) 04/24/21 03:59 Magnesium 2.4 mg/dL (1.7-2.3) H 04/24/21 03:59 Iron 37 ug/dL (37-145) 04/23/21 06:20 TIBC 157 mcg/dl 04/23/21 06:20 % Saturation 23.5 % (20-50) 04/23/21 06:20 Unsat Iron Binding 120 ug/dL (112-347) 04/23/21 06:20 Ferritin 481 ng/mL (15-150) H 04/22/21 00:32 Total Bilirubin 2.0 mg/dL (0.15-1.2) H 04/24/21 03:59 GGT 108 U/L (5-36) H 04/19/21 03:00 AST 348 U/L (0-32) H 04/24/21 03:59 ALT 243 U/L (0-33) H 04/24/21 03:59 Alkaline Phosphatase 549 IU/L (35-105) H 04/24/21 03:59 Creatine Kinase 79 U/L (26-192) 04/19/21 03:00 Troponin T Baseline 31 ng/L (0-10) H 04/20/21 16:45 Troponin T 120 Minute 31.12 ng/L (0-10) H 04/20/21 19:44 Delta Troponin T 0.12 ABS# (0-10) 04/20/21 19:44 Troponin T Hi Sens 6Hr 27.06 ng/L (0-10) H 04/21/21 03:50 Troponin T Hi Sens 6Hr Delta -3.94 ng/L (0-12) L 04/21/21 03:50 C-Reactive Protein 6.3 mg/L (0.0-4.9) H 04/19/21 03:00 Total Protein 5.3 g/dL (6.6-8.7) L 04/24/21 03:59 Albumin 2.6 g/dL (3.5-5.2) L 04/24/21 03:59 Globulin 2.7 g/dL (1.3-4.6) 04/24/21 03:59 Triglycerides 473 mg/dL (0-150) H 04/24/21 03:59 Cholesterol 322 mg/dL (0-200) H 04/19/21 03:00 LDL Cholesterol Direct 15 mg/dL (0-100) 04/24/21 03:59 LDL Cholesterol, Calc Not Reportable 04/19/21 03:00 HDL Cholesterol 12 mg/dL (60-100) L 04/19/21 03:00 LDL/HDL Ratio Not Reportable 04/19/21 03:00 Cholesterol/HDL Ratio 26.83 mg/dL (0.0-4.40) H 04/19/21 03:00 Lipase 21 U/L (13-60) 04/21/21 03:50 25-OH Vitamin D Total 7 ng/mL (30-100) L 04/21/21 03:50 Procalcitonin 1.62 ng/mL (0-0.5) H 04/22/21 03:05 TSH 1.02 uIU/mL (0.27-4.20) 04/19/21 03:00 HCG, Qual Negative (Negative) 04/18/21 22:48 PTH Intact 274.7 pg/mL (15-65) H 04/21/21 03:50 Calcium (PTH Intact) 6.7 mg/dL (8.5-10.5) L 04/21/21 03:50 Urine Color Yellow (Yellow) 04/18/21 23:19 Urine Appearance Clear (CLEAR) 04/18/21 23:19 Urine pH 5 (5-7) 04/18/21 23:19 Ur Specific [place] 1.020 (1.005-1.030) 04/18/21 23:19 Urine Protein 3+ (Negative) H 04/18/21 23:19 Urine Glucose (UA) 1+ (Normal) H 04/18/21 23:19 Urine Ketones 1+ (Negative) H 04/18/21 23:19 Urine Blood 2+ (Negative) H 04/18/21 23:19 Urine Nitrate Negative (Negative) 04/18/21 23:19 Urine Bilirubin 1+ (Negative) H 04/18/21 23:19 Urine Urobilinogen 1 mg/dL (Negative) H 04/18/21 23:19 Ur Leukocyte Esterase Negative (Negative) 04/18/21 23:19 Urine RBC 5-10 /hpf (0-2) H 04/18/21 23:19 Urine WBC 0-4 /hpf (0-5) H 04/18/21 23:19 Ur Eosinophil Smear 0 (0-0) 04/19/21 05:35 Ur Squamous Epith Cells 10-15 /hpf (0-5) H 04/18/21 23:19 Amorphous Sediment 3+ /hpf 04/18/21 23:19 Urine Bacteria 2+ /hpf (NONE) H 04/18/21 23:19 Urine Eosinophils No eosinophils seen 04/19/21 05:35 Ur Random Creatinine 128 mg/dL (20-275) 04/19/21 05:35 Ur Random Albumin 46 % 04/19/21 05:35 U Random Total Protein 727 mg/dL (5-24) H 04/19/21 05:35 Ur Random Sodium 57 mmol/L 04/19/21 05:35 Ur Random Potassium 27 mmol/L 04/19/21 05:35 Ur Random Chloride 50 mmol/L 04/19/21 05:35 Urine Creatinine 139 mg/dL (28-217) 04/19/21 05:35 Protein/Creatinin Ratio 5680 mg/g creat (21-161) H 04/19/21 05:35 Protein/Creat Ratio 24h 5.680 (0.021-0.161) H 04/19/21 05:35 U Random n-5-Vvuhmhes % 4 % 04/19/21 05:35 U Random n-0-Mlkdhjkj % 12 % 04/19/21 05:35 U Random Beta Globulin 21 % 04/19/21 05:35 U Random Gamma Glob 18 % 04/19/21 05:35 U Abnormal Prot Band 1 Not Reportable 04/19/21 05:35 U Abnormal Prot Band 2 Not Reportable 04/19/21 05:35 U Abnormal Prot Band 3 Not Reportable 04/19/21 05:35 Urine PEP Interpret See note 04/19/21 05:35 Vancomycin Trough 20.4 ug/mL (10-15) H 04/20/21 03:20 Salicylates < 0.3 mg/dL (3-10) L 04/19/21 03:00 Acetaminophen < 5.0 ug/mL (10-30) L 04/19/21 03:00 Ethylene Glycol <10.0 mg/L () 04/19/21 03:00 Volat Analys Perform On Whole blood 04/19/21 03:00 Ethyl Alcohol < 10 mg/dL (0-10) 04/19/21 03:00 Urine Ethyl Alcohol Cancelled 04/19/21 05:35 Methyl Alcohol Level None detected mg/dL 04/19/21 03:00 Serum Ketones Negative (Negative) 04/20/21 19:44 Coronavirus 229E (PCR) Not detected (NOT DETECT) 04/19/21 05:35 Hepatitis A IgM Ab Non-reactive (Nonreactive) 04/19/21 03:00 Hep Bs Antigen Non-reactive (Nonreactive) 04/20/21 03:20 Hep Bs Antibody 3.5 (11.5-1000) L 04/20/21 03:20 Hep B Core IgM Ab Non-reactive (Nonreactive) 04/19/21 03:00 Hepatitis C Antibody Non-reactive (Nonreactive) 04/20/21 03:20 HIV 1&2 Ab & HIV 1 Ag Non-reactive (Non-Reactiv) 04/19/21 03:00 HIV 1&2 Antibody Non-reactive (Non-Reactiv) 04/19/21 03:00 Influenza Type A Ag Negative (Negative) 04/19/21 05:35 Influenza Type B Ag Negative (Negative) 04/19/21 05:35 SARS-CoV-2 (PCR) Detected (NOT DETECT) A 04/19/21 05:35 SARS-CoV-2 Ag (Rapid) Negative (Negative) 04/18/21 21:49 Blood Type O Positive 04/23/21 20:40 Rho(D) Type Positive 04/23/21 20:40 Antibody Screen Negative 04/23/21 20:40 Crossmatch See Detail 04/23/21 20:40 Micro: Microbiology 04/18/21 21:49 Blood Culture - Final Blood NO GROWTH AFTER 5 DAYS 04/18/21 22:07 Blood Culture - Final Blood NO GROWTH AFTER 5 DAYS A&P Assessment and plan (1) Acute respiratory distress syndrome (ARDS) due to 2019 novel coronavirus: Status: Acute (2) COVID: Status: Acute (3) Increased anion gap metabolic acidosis: Status: Acute (4) Acute encephalopathy: Status: Acute (5) Acute pancreatitis: Status: Acute (6) Mild mental handicap: Status: Acute (7) GODFREY (generalized anxiety disorder): Status: Acute (8) Essential hypertension: Status: Acute (9) Hypertriglyceridemia: Status: Acute (10) Leukocytosis: Status: Acute (11) Aspiration pneumonia: Status: Acute (12) Hypovolemic shock: Status: Acute Plan # Acute hypoxic respiratory failure in patient with COVID-19 pneumonia and fluid overload secondary to TONY -possible ARDS and patient with COVID-19 PCR positive/pancreatitis; subsegmental PE on CT #TONY due to hypovolemia-ischemic ATN/MAMI/Covid TONY-currently on HD #Hypovolemic shock secondary to pancreatitis-currently off pressors #Pancreatitis secondary to hypertriglyceridemia #Generalized anxiety disorder #Leukocytosis-secondary to dehydration versus possible aspiration pneumonia - with h/o vomiting -Intubated on 04/20/2021 night after an episode of vomiting while she was on BiPAP -Currently sedated with fentanyl and Precedex, will do awakening trial today -ABG 7.4 06/17//20/93% on CMV 40%/350/PEEP of 8-we will continue SBT trials and plan to extubate in next 24 to 48 hours -Chest x-ray showed bilateral diffuse infiltrates-fluid overload vs ARDS secondary to pancreatitis/COVID-19 -Completed remdesivir and currently on dexamethasone -Also covered with Zosyn for possible aspiration pneumonia -Continue monitoring respiratory status and saturations closely -Off pressors -CT angiogram subsegmental PE; bilateral venous Doppler negative for DVT-on heparin drip -Triglycerides down to 473-off propofol -Off insulin drip-currently on subcutaneous insulin-sugars well controlled --Ketonemia could be secondary to vomitings-resolved -Currently n.p.o. for pancreatitis and ileus; had 2 bowel movements yesterday and decreasing NG output-we will consider starting on tube feedings from tomorrow -monitor FSBS closely and adjust IV insulin accordingly -Renal to continue hemodialysis to to remove fluid -Patient's family updated at bedside -Prognosis guarded Recommendations conveyed to hospitalist, RN, RT taking care of the patient Attestations Medical Necessity Statement*: Hypoxic respiratory failure secondary to ARDS due to pancreatitis-fluid overload due to TONY and patient with underlying Covid pneumonia and aspiration pneumonia-requiring mechanical intubation Time Spent in Patient Care: Greater than 35 minutes (>than 50% of time spent in counselling and/or direct pt care on unit). Critical Care Time: The high probability of a clinically significant, sudden or life threatening deterioration of the patient's [pulmonary, renal system(s) required my full and direct attention, intervention and personal management. The critical care time is as shown. This time is in addition to time spent performing any reported procedures but includes the following: [x] Data and vital sign review and interpretation [x] Patient assessment, examination and intervention [x] Documentation [x] Medication orders and management Critical Care Time (min): 45 Coding Level of Care Code Established Pt Acute Hand Filer Balance Wheel for Chg Fwd Patient Type Established History Comprehensive Exam Comprehensive Medical Decision Making High Complexity Diagnoses Acute respiratory distress syndrome (ARDS) due to 2019 novel coronavirus U07.1; J80 COVID U07.1 Increased anion gap metabolic acidosis E87.2 Acute encephalopathy G93.40 Acute pancreatitis K85.90 Mild mental handicap F70 GODFREY (generalized anxiety disorder) F41.1 Essential hypertension I10 Hypertriglyceridemia E78.1 Leukocytosis D72.829 Aspiration pneumonia J69.0 Hypovolemic shock R57.1 Time Spent (min) 45
[2021-04-24 16:42] LABS: Partial Thromboplastin Time 52.3 SECONDS (23.9-36.7)
--- NOTE | 2021-04-24 17:13 | NUR.SHIFT ---
Shift Note Frequent safety and comfort rounds continue. Orders and/or nursing care completed as indicated. Patient monitored for response to lowering sedation to begin weaning on vent.. noted increase in respritory rate and bood pressure with restlessness, increased crackles in lungs noted , doctor called sedated at this time Education provided to patients mother about above events. Patient back on vent and sedation restarted continue to monitor.
[2021-04-24 17:19] LABS: Glucose Point of Care 110 mg/dL (70-110)
--- NOTE | 2021-04-24 18:16 | PC.NURSE ---
levophed gtt restarted on pt at this time blood pressure down from dialysis pulling fluid Dr Pelaez aware
[2021-04-24] MEDS: heparin, porcine 1,000 unit/mL INJ 10 mL HE (19:38)
[2021-04-24 20:56] LABS: Glucose Point of Care 114 mg/dL (70-110)
[2021-04-24] MEDS: acetaminophen 325 mg Tablet 650 MG PO (21:49)
[2021-04-24 22:24] LABS: Hematocrit 27.3 % (37.0-47.0); Hemoglobin 9.3 g/dL (11.5-15.3)
[2021-04-24 22:41] LABS: Partial Thromboplastin Time 81.2 SECONDS (23.9-36.7)
[2021-04-25] VITALS (59 sets, daily range): BP systolic 100–149; BP diastolic 66–95; PULSE 102–137; RESP 21–55; TEMP 37.1–38.3; O2SAT 87–97
[2021-04-25] MEDS: piperacillin-tazobactam 3.375 GM in sodium chloride 0.9% (plus) 50 ML IV ×2 (01:27→11:59)
[2021-04-25] MEDS: famotidine 20 mg/2 mL INJ IVP ×2 (01:30→14:49)
[2021-04-25] MEDS: ipratropium-albuterol 3 mL Neb INHALATION ×6 (03:14→23:09)
[2021-04-25 04:51] LABS: Basophils # 0.1 10^3/uL (0.0-0.1); Basophils % 0.7 %; Eosinophils # 0.2 10^3/uL (0.0-0.8); Eosinophils % 1.4 %; Hematocrit 26.1 % (37.0-47.0); Hemoglobin 8.9 g/dL (11.5-15.3); Lymphocytes # 2.5 10^3/uL (0.8-4.8); Lymphocytes % 20.8 %; Mean Corpuscular HGB Conc 34.1 g/dL (30.0-36.0); Mean Corpuscular Hemoglobin 30.4 pg (28.0-34.0); Mean Corpuscular Volume 89.1 fl (81-99); Mean Platelet Volume 12.4 fL (7.4-10.4); Monocytes # 0.6 10^3/uL (0.2-0.9); Monocytes % 5.1 %; Neutrophils # 5.98 10^3/uL (1.8-7.7); Neutrophils % 49.7 %; Nucleated Red Blood Cells # 0.6 /100WBC; Nucleated Red Blood Cells % 4.9 %; Platelet Count 230 10^3/cmm (130-400); Red Blood Count 2.93 10^6/uL (4.1-5.3); Red Cell Distribution Width 14.6 % (12.1-15.1)
[2021-04-25 04:58] LABS: Partial Thromboplastin Time 45.6 SECONDS (23.9-36.7)
[2021-04-25 05:41] LABS: Alanine Aminotransferase 140 U/L (0-33); Albumin Level 2.5 g/dL (3.5-5.2); Alkaline Phosphatase 722 IU/L (35-105); Anion Gap 22.9 (5-19); Aspartate Amino Transferase 76 U/L (0-32); Blood Urea Nitrogen 20 mg/dL (6-20); Calcium 7.9 mg/dL (8.5-10.5); Carbon Dioxide 19 mmol/L (22-29); Chloride 98 mmol/L (98-107); Globulin 2.9 g/dL (1.3-4.6); Glomerular Filtration Rate 24.8 mL/min (90-130); Glucose 76 mg/dL (65-115); Lipase 15 U/L (13-60); Osmolality Calculated 283 mOsm/kg (285-295); Potassium 3.9 mmol/L (3.5-5.1); Sodium 136 mmol/L (136-145); Total Bilirubin 1.3 mg/dL (0.15-1.2); Total Protein 5.4 g/dL (6.6-8.7); Triglycerides 340 mg/dL (0-150)
[2021-04-25 05:46] LABS: Slide Review Slide Review Perform
[2021-04-25] MEDS: heparin 5,000 unit/mL INJ 1 mL IV (06:05)
[2021-04-25] MEDS: heparin drip 25,000 UNIT/500 ML PREMIX 28.04 UNIT IV (06:05)
[2021-04-25] MEDS: dexmedeTOMIDine 0.9 % NaCL 400 MCG/100 ML PREMIX 18.29 MCG IV ×2 (07:16→12:58)
[2021-04-25] MEDS: LORazepam 2 mg/mL INJ 1 mL IVP ×2 (07:17→23:17)
[2021-04-25 07:24] LABS: Glucose Point of Care 83 mg/dL (70-110)
--- NOTE | 2021-04-25 07:51 | XRR_ITS ---
PROCEDURE INFORMATION: Exam: XR Chest Exam date and time: 04/25/2021 7:51 AM Age: 40 years old Clinical indication: Cough TECHNIQUE: Imaging protocol: XR of the chest. Views: 1 view. COMPARISON: CR XR chest 1V portable [id number] 04/23/2021 6:56 AM FINDINGS: Tubes, catheters and devices: Endotracheal tube is in satisfactory position. Feeding tube is in satisfactory position. Right IJ approach central line is in satisfactory position, with distal tip at the level of the SVC/RA junction. Lungs: Low lung volumes. Persistent bilateral airspace opacities. No large pleural effusion or pneumothorax. Pleural spaces: See Lungs finding. Heart/Mediastinum: Stable cardiomediastinal silhouette. Bones/joints: No acute osseous injury identified. XR/XR chest 1V portable [id number] IMPRESSION: Persistent bilateral airspace opacities.
--- NOTE | 2021-04-25 07:53 | USR_ITS ---
PROCEDURE INFORMATION: Exam: US Abdomen, Limited; Right Upper Quadrant Exam date and time: 04/25/2021 7:53 AM Age: 40 years old Clinical indication: Fever; Additional info: Pain TECHNIQUE: Imaging protocol: US abdomen. Real time ultrasound with image documentation. Limited exam focused on the right upper quadrant. COMPARISON: US abdomen complete* [id number] 04/19/2021 6:38 AM FINDINGS: Pleural spaces: Right pleural effusion noted. Liver: Liver is mildly increased in echogenicity, most commonly seen in hepatic steatosis, though other forms of parenchymal liver disease could have a similar appearance. A hypoechoic lesion is again seen in the mid posterior abdomen, measuring approximately 2.9 x 2.4 x 4.8 cm. Gallbladder: Multiple gallstones noted. No gallbladder wall thickening or pericholecystic fluid seen. Negative sonographic Paris's sign. Common bile duct: Normal. No stones. No dilation. Pancreas: Visualized pancreas is unremarkable. Right kidney: Normal. No mass. No hydronephrosis. Aorta: Unremarkable. Inferior vena cava: Unremarkable. US/US gall bladder [id number] IMPRESSION: 1. Slightly hyperechoic liver, which can be seen with fatty infiltration or hepatocellular disease. 2. Nonspecific hepatic hypoechoic lesion adjacent to the gallbladder, which may represent fat sparing. Further evaluation with contrast enhanced abdomen MRI should be considered in the adequate clinical setting. 3. Cholelithiasis without evidence of cholecystitis. 4. Right pleural effusion.
--- NOTE | 2021-04-25 08:09 | PC.NURSE ---
very restless and agitated respiratory rate up to 60 temp at 101 at present . called orders noted cxr and ultra sound ordered
[2021-04-25] MEDS: calcium carbonate 500 mg Chew Tablet 1000 MG PO ×3 (08:46→20:09)
[2021-04-25] MEDS: sennosides-docusate Tablet 2 TAB PO (08:46)
[2021-04-25] MEDS: fenofibrate 145 mg Tablet PO (08:46)
[2021-04-25] MEDS: ferric gluconate 125 MG in sodium chloride 0.9% (100 ml) 100 ML 110 MG IV (08:51)
--- NOTE | 2021-04-25 10:46 | P.PN_ITS ---
Subjective Subjective: Interval history: She appears very anxious this morning. Failed weaning trial yesterday afternoon, did receive dialysis yesterday. When sedation is minimized, she becomes tachypneic, tachycardic, very agitated. Currently no vasopressors on, minimal vent settings otherwise. Urine output remains minimal. Medications: Reviewed: Yes Medication Review Details: Current Medications Acetaminophen (Acetaminophen 325 Mg Tablet) 650 mg PO Q6H PRN PRN Reason: Mild/Mod Pain Or Temp >/= 101 Albuterol/Ipratropium (Ipratropium-Albuterol 3 Ml Neb) 3 ml INHALATION Q6H .RESPIRATORY ANNIE Last Admin: 04/23/21 03:41 Dose: 3 ml Documented by: Calcium Carbonate (Calcium Carbonate 500 Mg Chew Tablet) 1,000 mg PO TID [facility] Last Admin: 04/22/21 21:31 Dose: 1,000 mg Documented by: Dexamethasone (Dexamethasone 10 Mg/Ml Inj) 6 mg IVP Q24H [facility] Last Admin: 04/22/21 13:38 Dose: 6 mg Documented by: Dextrose (Dextrose 50% Syringe 50 Ml) 25 ml IVP ONCE PRN; Protocol PRN Reason: hypoglycemia protocol Last Admin: 04/20/21 00:25 Dose: 25 ml Documented by: Dextrose (Dextrose 50% Syringe 50 Ml) 50 ml IVP PRN PRN; Protocol PRN Reason: hypoglycemia protocol Last Admin: 04/19/21 20:35 Dose: 50 ml Documented by: Dextrose (Dextrose 50% Syringe 50 Ml) 25 ml IVP ONCE PRN; Protocol PRN Reason: hypoglycemia protocol Dextrose (Dextrose 50% Syringe 50 Ml) 50 ml IVP PRN PRN; Protocol PRN Reason: hypoglycemia protocol Ergocalciferol (Ergocalciferol (Vitamin D2) 50,000 Unit Capsule) 50,000 unit PO Q7D [facility] Last Admin: 04/21/21 12:04 Dose: 50,000 unit Documented by: Famotidine (Famotidine 20 Mg/2 Ml Inj) 20 mg IVP Q12H ANNIE Last Admin: 04/23/21 01:38 Dose: 20 mg Documented by: Fenofibrate (Fenofibrate 145 Mg Tablet) 145 mg PO DAILY [facility] Last Admin: 04/22/21 09:06 Dose: 145 mg Documented by: Glucagon (Glucagon 1 Mg/Ml Inj 1 Ml) 1 mg IM ONCE PRN; Protocol PRN Reason: Adult Acute Hypoglycemia Prot Glucagon (Glucagon 1 Mg/Ml Inj 1 Ml) 1 mg IM ONCE PRN; Protocol PRN Reason: Adult Acute Hypoglycemia Prot. Heparin Sodium (Porcine) (Heparin 5,000 Unit/Ml Inj 1 Ml) 5,000 unit SUBCUT Q12H ANNIE Last Admin: 04/21/21 04:54 Dose: Not Given Documented by: Dextrose (D5w) 500 mls @ 100 mls/hr IV ONCE PRN; Protocol PRN Reason: Adult Acute Hypoglycemia Prot Last Infusion: 04/20/21 18:12 Dose: Infused Documented by: Insulin Human Regular 250 unit (/ Sodium Chloride) 252.5 mls @ 0 mls/hr IV .Q0M ANNIE; Protocol Last Titration: 04/22/21 21:29 Dose: 0 unit/hr, 0 mls/hr Documented by: Piperacillin Sod/Tazobactam (Sod 3.375 gm/ Sodium Chloride) 50 mls @ 12.5 mls/hr IV Q12H ANNIE; Protocol Last Infusion: 04/23/21 05:37 Dose: Infused Documented by: Dextrose/Sodium Chloride (Dextrose 5%-Sod Chloride 0.45%) 1,000 mls @ 200 mls/hr IV .Q5H ANNIE Last Admin: 04/23/21 03:14 Dose: Not Given Documented by: Norepinephrine Bitartrate 4 mg (/ Dextrose) 254 mls @ 0 mls/hr IV .Q0M ANNIE; Protocol Last Titration: 04/21/21 22:00 Dose: Infused Documented by: Remdesivir 100 mg/ Sodium (Chloride) 100 mls @ 100 mls/hr IV Q24H [facility] Stop: 04/24/21 06:59 Last Admin: 04/23/21 05:05 Dose: 100 mls/hr Documented by: Norepinephrine Bitartrate 4 mg (/ Dextrose) 254 mls @ 0 mls/hr IV .Q0M ANNIE; Protocol Last Titration: 04/22/21 05:16 Dose: 0 mcg/min, 0 mls/hr Documented by: Heparin Sodium/Sodium Chloride (Heparin Drip) 25,000 unit in 500 mls @ 0 mls/hr IV .Q0M ANNIE; Protocol Last Admin: 04/23/21 04:22 Dose: 20 unit/kg/hr, 24.39 mls/hr Documented by: dexmedeTOMIDine 0.9 % NaCL (Precedex) 400 mcg in 100 mls @ 0 mls/hr IV .Q0M ANNIE; Protocol Last Titration: 04/21/21 01:15 Dose: 0 mcg/kg/hr, 0 mls/hr Documented by: Albumin Human (Albumin) 12.5 gm in 50 mls @ 60 mls/hr IV PRN PRN PRN Reason: Hypotension and/or symptomatic Propofol (Diprivan) 1,000 mg in 100 mls @ 0 mls/hr IV .Q0M ANNIE; Protocol Last Titration: 04/23/21 04:45 Dose: 20 mcg/kg/min, 7.32 mls/hr Documented by: Fentanyl 2,500 mcg/ Sodium (Chloride) 250 mls @ 0 mls/hr IV .Q0M ANNIE; Protocol Last Admin: 04/23/21 03:52 Dose: 50 mcg/hr, 5 mls/hr Documented by: Dextrose (D5w) 500 mls @ 100 mls/hr IV ONCE PRN; Protocol PRN Reason: Adult Acute Hypoglycemia Prot Insulin Human Lispro (Insulin Lispro 100 Unit/1 Ml) 0 unit SUBCUT WM&BEDTIME ANNIE; Protocol Lactulose (Lactulose Oral Liq 20 Gm/30 Ml Udc) 10 gm PO DAILY PRN PRN Reason: CONSTIPATION Lorazepam (Lorazepam 2 Mg/Ml Inj 1 Ml) 2 mg IVP Q4H PRN PRN Reason: ANXIETY Last Admin: 04/21/21 00:01 Dose: 2 mg Documented by: Naloxone HCl (Naloxone 0.4 Mg/Ml Sdv) 0.1 mg IVP Q2M PRN PRN Reason: OPIATERV Ondansetron HCl (Ondansetron 2 Mg/Ml Sdv 2 Ml) 4 mg IVP Q8H PRN PRN Reason: vomiting, or N/V if npo Last Admin: 04/20/21 19:18 Dose: 4 mg Documented by: Senna/Docusate Sodium (Sennosides-Docusate Tablet) 2 tab PO DAILY ANNIE Last Admin: 04/22/21 09:06 Dose: 2 tab Documented by: Vitals/I&O/Wt Last Vital Signs Temp 101 F H 04/25/21 07:30 Pulse 110 H 04/25/21 09:08 Resp 27 H 04/25/21 09:07 BP 115/86 04/25/21 08:30 Pulse Ox 91 04/25/21 09:07 04/24/21 04/25/21 04/25/21 22:59 06:59 14:59 Intake Total 472.739 / 1003.275 294.546 / 1297.821 50 / 50 Output Total 250 / 250 Balance 472.739 / 1003.275 44.546 / 1047.821 50 / 50 Weight last 48 hrs Weight 69.3 kg Physical Exam Narrative: EXAM NARRATIVE: Constitutional: Intubated and vented HEENT: Wet mucosa, no jvp, non icteric Lungs: Bilaterally clear without discernible wheeze or rales in all lung zones CVS: S1 S2, no murmurs Abdo: Soft, BS ok Ext 4: Minimal edema, peripheral perfusion with no cyanosis Neurological: Grossly non-focal Urinary Catheter Management: Carroll: Cath Placed During This Visit: yes Reason for Continuing Indwelling Catheter: Accurate Measurement of Urinary Output in Critically Ill Patients Urinary Catheter Date of Insertion: 04/19/21 Urinary Catheter Time of Insertion: 01:00 Data : 04/25/21 04:34 04/25/21 04:34 A&P Assessment and plan (1) ATN (acute tubular necrosis): 1. Acute kidney injury Remains oligoanuric, likely secondary to acute tubular injury Dialyzed yesterday, monitor over the weekend, with plans for dialysis on Tuesday Strict I's and O's Close monitoring for recovery Dose medication for GFR less than 15 on dialysis 2. Vent dependent respiratory failure Management per the ICU team, agitated when brought down off sedation 3. Pancreatitis Secondary to hypertriglyceridemia, triglyceride levels now trending down, below 500 Lipase ok. 4. Chemistry Minor noncritical aberration, continue to monitor. Thank you for consultation, it is a pleasure to follow these cases with you Exam and interview performed with aid of bedside RN using telemedicine Time spent 20 min inc > 50% of time in face to face counseling Pollo Seo MD [facility] [phone] Status: Acute Attestations Medical Necessity Statement*: Eval for Acute Renal Failure Coding Level of Care Code Acute Horse Rider for Chg Fwd Diagnoses ATN (acute tubular necrosis) N17.0
[2021-04-25] MEDS: dexamethasone 10 mg/mL INJ 6 MG IVP (11:59)
[2021-04-25 12:09] LABS: Glucose Point of Care 90 mg/dL (70-110)
[2021-04-25 12:32] LABS: ABG PCO2 35.2 mmHg (35-45); ABG PH Result 7.36 (7.35-7.45); Alveolar-Arterial Oxygen Gradi 23.3 mmHg (5-10); Arterial Blood Gas Hematocrit 28.6 % (37-47); Base Excess ABG -4.8 mmol/L (-2.0-2.0); Blood Gas Allen Test Pos; Blood Gas Operator Identificat CAK; Blood Gas Sample Site Brachial, left; Blood Gas Sample Type Arterial; Blood Gas Tidal Volume 0.35; Carboxyhemoglobin 1.3 %THgb (0.4-20.1); HGB O2 Sat 90.9 % (95-100); Ionized Calcium Level - ABG 1.1 mmol/L (1.1-1.4); Methemoglobin 0.5 % (0.4-1.5); Oxygen Device VENT; Oxygen Saturation ABG 92.5; PO2 ABG 66.2 mmHg (80.0-100.0); Total Hemoglobin 9.3 g/dL (12-16)
--- NOTE | 2021-04-25 13:11 | P.PN_ITS ---
Subjective Subjective: Interval history: -Patient seen at bedside today -Requiring 60% FiO2 on ventilator-received hemodialysis yesterday -Patient on fentanyl 100 MCG/hour and Precedex 1.2-but still very tachypneic with RR 30; will add Versed -Improving bilirubin-abdominal ultrasound: Gallstones with no gallbladder wall thickening or pericolic cystic fluid. There is a hypoechoic lesion in posterior mid abdominal ultrasound-recommended CT abdomen/pelvis with contrast Other labs and imaging reviewed Medications: Reviewed: Yes Medication Review Details: Current Medications Acetaminophen (Acetaminophen 325 Mg Tablet) 650 mg PO Q6H PRN PRN Reason: Mild/Mod Pain Or Temp >/= 101 Albuterol/Ipratropium (Ipratropium-Albuterol 3 Ml Neb) 3 ml INHALATION Q6H.RESPIRATORY [facility] Last Admin: 04/23/21 03:41 Dose: 3 ml Documented by: Calcium Carbonate (Calcium Carbonate 500 Mg Chew Tablet) 1,000 mg PO TID [facility] Last Admin: 04/22/21 21:31 Dose: 1,000 mg Documented by: Dexamethasone (Dexamethasone 10 Mg/Ml Inj) 6 mg IVP Q24H [facility] Last Admin: 04/22/21 13:38 Dose: 6 mg Documented by: Dextrose (Dextrose 50% Syringe 50 Ml) 25 ml IVP ONCE PRN; Protocol PRN Reason: hypoglycemia protocol Last Admin: 04/20/21 00:25 Dose: 25 ml Documented by: Dextrose (Dextrose 50% Syringe 50 Ml) 50 ml IVP PRN PRN; Protocol PRN Reason: hypoglycemia protocol Last Admin: 04/19/21 20:35 Dose: 50 ml Documented by: Dextrose (Dextrose 50% Syringe 50 Ml) 25 ml IVP ONCE PRN; Protocol PRN Reason: hypoglycemia protocol Dextrose (Dextrose 50% Syringe 50 Ml) 50 ml IVP PRN PRN; Protocol PRN Reason: hypoglycemia protocol Ergocalciferol (Ergocalciferol (Vitamin D2) 50,000 Unit Capsule) 50,000 unit PO Q7D [facility] Last Admin: 04/21/21 12:04 Dose: 50,000 unit Documented by: Famotidine (Famotidine 20 Mg/2 Ml Inj) 20 mg IVP Q12H [facility] Last Admin: 04/23/21 01:38 Dose: 20 mg Documented by: Fenofibrate (Fenofibrate 145 Mg Tablet) 145 mg PO DAILY [facility] Last Admin: 04/22/21 09:06 Dose: 145 mg Documented by: Glucagon (Glucagon 1 Mg/Ml Inj 1 Ml) 1 mg IM ONCE PRN; Protocol PRN Reason: Adult Acute Hypoglycemia Prot Glucagon (Glucagon 1 Mg/Ml Inj 1 Ml) 1 mg IM ONCE PRN; Protocol PRN Reason: Adult Acute Hypoglycemia Prot. Heparin Sodium (Porcine) (Heparin 5,000 Unit/Ml Inj 1 Ml) 5,000 unit SUBCUT Q12H [facility] Last Admin: 04/21/21 04:54 Dose: Not Given Documented by: Dextrose (D5w) 500 mls @ 100 mls/hr IV ONCE PRN; Protocol PRN Reason: Adult Acute Hypoglycemia Prot Last Infusion: 04/20/21 18:12 Dose: Infused Documented by: Insulin Human Regular 250 unit (/ Sodium Chloride) 252.5 mls @ 0 mls/hr IV .Q0M [facility]; Protocol Last Titration: 04/22/21 21:29 Dose: 0 unit/hr, 0 mls/hr Documented by: Piperacillin Sod/Tazobactam (Sod 3.375 gm/ Sodium Chloride) 50 mls @ 12.5 mls/hr IV Q12H [facility]; Protocol Last Infusion: 04/23/21 05:37 Dose: Infused Documented by: Dextrose/Sodium Chloride (Dextrose 5%-Sod Chloride 0.45%) 1,000 mls @ 200 mls/hr IV .Q5H [facility] Last Admin: 04/23/21 03:14 Dose: Not Given Documented by: Norepinephrine Bitartrate 4 mg (/ Dextrose) 254 mls @ 0 mls/hr IV .Q0M [facility]; Protocol Last Titration: 04/21/21 22:00 Dose: Infused Documented by: Remdesivir 100 mg/ Sodium (Chloride) 100 mls @ 100 mls/hr IV Q24H [facility] Stop: 04/24/21 06:59 Last Admin: 04/23/21 05:05 Dose: 100 mls/hr Documented by: Norepinephrine Bitartrate 4 mg (/ Dextrose) 254 mls @ 0 mls/hr IV .Q0M [facility]; Protocol Last Titration: 04/22/21 05:16 Dose: 0 mcg/min, 0 mls/hr Documented by: Heparin Sodium/Sodium Chloride (Heparin Drip) 25,000 unit in 500 mls @ 0 mls/hr IV .Q0M [facility]; Protocol Last Admin: 04/23/21 04:22 Dose: 20 unit/kg/hr, 24.39 mls/hr Documented by: dexmedeTOMIDine 0.9 % NaCL (Precedex) 400 mcg in 100 mls @ 0 mls/hr IV .Q0M [facility]IE; Protocol Last Titration: 04/21/21 01:15 Dose: 0 mcg/kg/hr, 0 mls/hr Documented by: Albumin Human (Albumin) 12.5 gm in 50 mls @ 60 mls/hr IV PRN PRN PRN Reason: Hypotension and/or symptomatic Propofol (Diprivan) 1,000 mg in 100 mls @ 0 mls/hr IV .Q0M ANNIE; Protocol Last Titration: 04/23/21 04:45 Dose: 20 mcg/kg/min, 7.32 mls/hr Documented by: Fentanyl 2,500 mcg/ Sodium (Chloride) 250 mls @ 0 mls/hr IV .Q0M [facility]IE; Protocol Last Admin: 04/23/21 03:52 Dose: 50 mcg/hr, 5 mls/hr Documented by: Dextrose (D5w) 500 mls @ 100 mls/hr IV ONCE PRN; Protocol PRN Reason: Adult Acute Hypoglycemia Prot Insulin Human Lispro (Insulin Lispro 100 Unit/1 Ml) 0 unit SUBCUT WM&BEDTIME ANNIE; Protocol Lactulose (Lactulose Oral Liq 20 Gm/30 Ml Udc) 10 gm PO DAILY PRN PRN Reason: CONSTIPATION Lorazepam (Lorazepam 2 Mg/Ml Inj 1 Ml) 2 mg IVP Q4H PRN PRN Reason: ANXIETY Last Admin: 04/21/21 00:01 Dose: 2 mg Documented by: Naloxone HCl (Naloxone 0.4 Mg/Ml Sdv) 0.1 mg IVP Q2M PRN PRN Reason: OPIATERV Ondansetron HCl (Ondansetron 2 Mg/Ml Sdv 2 Ml) 4 mg IVP Q8H PRN PRN Reason: vomiting, or N/V if npo Last Admin: 04/20/21 19:18 Dose: 4 mg Documented by: Senna/Docusate Sodium (Sennosides-Docusate Tablet) 2 tab PO DAILY [facility]IE Last Admin: 04/22/21 09:06 Dose: 2 tab Documented by: Vitals/I&O/Wt Last Vital Signs Temp 101 F H 04/25/21 10:31 Pulse 137 H 04/25/21 12:00 Resp 27 H 04/25/21 11:33 BP 130/93 04/25/21 12:00 Pulse Ox 92 04/25/21 12:00 04/24/21 04/25/21 04/25/21 22:59 06:59 14:59 Intake Total 472.739 / 1003.275 294.546 / 1297.821 260.733 / 260.733 Output Total 250 / 250 Balance 472.739 / 1003.275 44.546 / 1047.821 260.733 / 260.733 Weight last 48 hrs Weight 152 lb 12.485 oz Physical Exam Narrative: EXAM NARRATIVE: PHYSICAL EXAM: General: lying in bed, sedated and intubated. HEENT:NCAT, PERRLA, EOMI Neck: Supple Lungs: Bilateral diffuse crackles Heart: s1/s2, RRR Abd: soft, NT, ND, BS + Normoactive Extremities: No edema CHIEF TRANSFER AND PUMPHOUSE OPERATOR: sedated and limited CHIEF TRANSFER AND PUMPHOUSE OPERATOR exam possible. SKIN: no rash LDA: # CVC: Right femoral line 04/20/2021 # HD Cath : Right internal jugular 04/20/2021 Urinary Catheter Management: Carroll: Cath Placed During This Visit: yes Reason for Continuing Indwelling Catheter: Accurate Measurement of Urinary Output in Critically Ill Patients Urinary Catheter Date of Insertion: 04/19/21 Urinary Catheter Time of Insertion: 01:00 Data : 04/25/21 04:34 04/25/21 04:34 Other Labs: Radiology Impressions Abdomen/Pelvis CT 04/18/21 23:01 IMPRESSION: 1. Hazy bilateral pulmonary opacities which are consistent with COVID-19. 2. Acute pancreatitis. 3. Small amount of gas in the urinary bladder which may be secondary to recent manipulation or infection. Abdomen Ultrasound 04/19/21 02:25 IMPRESSION: 1. Cholelithiasis. Chest CT 04/19/21 02:25 IMPRESSION: 1. Nonspecific gallbladder distention. No calcified stones. 2. Mild retroperitoneal stranding about the pancreas, correlate with pancreatic enzymes. 3. Bilateral pulmonary infiltrates which may be seen with atypical pneumonia. Head CT 04/19/21 02:25 IMPRESSION: 1. No acute infarct or hemorrhage. 2. No calvarial or skull base fracture. 3. Paranasal sinus mucosal thickening. Chest/Abdomen/Pelvis CT 04/22/21 07:35 IMPRESSION: 1. Proximal main pulmonary arteries are normal. A few filling defects in the left lower lobe pulmonary artery suspicious for pulmonary embolus. Images degraded by breathing artifact. 2. Endotracheal tube with tip above the tracey. Enteric tube with tip below the diaphragm in the distal stomach. 3. Air-fluid level in the stomach. Air distended transverse colon compatible with adynamic ileus. 4. Diffuse bilateral pulmonary infiltrates have improved in the lung bases but progressed in the perihilar regions and upper lobes with partial confluence and consolidation in the lung apices with air bronchograms. 5. Small amount of pancreatic edema is similar to previous. Recommend correlation for pancreatitis. 6. Enlarged kidneys bilaterally with heterogeneous enhancement. Correlation for renal insufficiency. No hydronephrosis. 7. Small amount of free fluid in the pelvis. Diffuse body wall anasarca. Message left for Paresh Reese MD at 04/22/2021 11:55 AM. KUB X-Ray 04/24/21 11:53 IMPRESSION: Nonspecific colon distention which was seen on the CT scan of 04/22/2021. Bowel gas pattern is not suggestive of ileus or obstruction. Chest X-Ray 04/25/21 07:51 IMPRESSION: Persistent bilateral airspace opacities. Gallbladder Ultrasound 04/25/21 07:53 IMPRESSION: 1. Slightly hyperechoic liver, which can be seen with fatty infiltration or hepatocellular disease. 2. Nonspecific hepatic hypoechoic lesion adjacent to the gallbladder, which may represent fat sparing. Further evaluation with contrast enhanced abdomen MRI should be considered in the adequate clinical setting. 3. Cholelithiasis without evidence of cholecystitis. 4. Right pleural effusion. Laboratory Results WBC 12.0 10^3/uL (4.0-10.0) H 04/25/21 04:34 Corrected WBC 8.5 10^3/cmm (4.8-10.8) 04/23/21 18:20 RBC 2.93 10^6/uL (4.1-5.3) L 04/25/21 04:34 Hgb 8.9 g/dL (11.5-15.3) L 04/25/21 04:34 Hct 26.1 % (37.0-47.0) L 04/25/21 04:34 MCV 89.1 fl (81-99) 04/25/21 04:34 MCH 30.4 pg (28.0-34.0) 04/25/21 04:34 MCHC 34.1 g/dL (30.0-36.0) 04/25/21 04:34 RDW 14.6 % (12.1-15.1) 04/25/21 04:34 Plt Count 230 10^3/cmm (130-400) 04/25/21 04:34 MPV 12.4 fL (7.4-10.4) H 04/25/21 04:34 Neut % (Auto) 49.7 % 04/25/21 04:34 Lymph % (Auto) 20.8 % 04/25/21 04:34 Hall % (Auto) 5.1 % 04/25/21 04:34 Eos % (Auto) 1.4 % 04/25/21 04:34 Baso % (Auto) 0.7 % 04/25/21 04:34 Neut # (Auto) 5.98 10^3/uL (1.8-7.7) 04/25/21 04:34 Lymph # (Auto) 2.5 10^3/uL (0.8-4.8) 04/25/21 04:34 Hall # (Auto) 0.6 10^3/uL (0.2-0.9) 04/25/21 04:34 Eos # (Auto) 0.2 10^3/uL (0.0-0.8) 04/25/21 04:34 Baso # (Auto) 0.1 10^3/uL (0.0-0.1) 04/25/21 04:34 Nucleated RBC % (auto) 4.9 % 04/25/21 04:34 Total Counted 100 (0-100) 04/23/21 18:20 Atypical Lymphs % 0.0 % (0-5) 04/23/21 18:20 Absolute Neutrophils 7.0 10^3/cmm (1.4-6.5) H 04/23/21 18:20 Segmented Neutrophils 75 % 04/23/21 18:20 Abs Segm Neuts (Man) 6.6 10/cmm (1.6-7.1) 04/23/21 18:20 Band Neutrophils 4.0 % 04/23/21 18:20 Abs Band Neuts (Man) 0.4 10^3/cmm (0.0-1.2) 04/23/21 18:20 Absolute Lymphocytes 0.7 10^3/cmm (1.2-3.4) L 04/23/21 18:20 Lymphocytes (Manual) 8 % 04/23/21 18:20 Monocytes (Manual) 0.0 % 04/23/21 18:20 Absolute Monocytes 0.0 10^3/cmm (0.1-0.6) L 04/23/21 18:20 Eosinophils (Manual) 0 % 04/23/21 18:20 Absolute Eosinophils 0.0 10^3/cmm (0.0-0.7) 04/23/21 18:20 Basophils (Manual) 0.0 % 04/23/21 18:20 Absolute Basophils 0.0 10^3/cmm (0.0-0.2) 04/23/21 18:20 Metamyelocytes 5.0 % 04/23/21 18:20 Myelocytes 8.0 % 04/23/21 18:20 Nucleated RBCs 4.0 /100WBC (0-1) H 04/23/21 18:20 Nucleated RBCs # 0.6 /100WBC 04/25/21 04:34 Platelet Estimate Normal (Normal) 04/23/21 18:20 Hypochromasia 2+ H 04/23/21 18:20 Basophilic Stippling Trace 04/21/21 Unknown Anisocytosis 1+ H 04/21/21 Unknown PT 16.40 SECONDS (12.1-14.9) H 04/19/21 03:00 INR 1.28 (0.8-1.2) H 04/19/21 03:00 APTT 45.6 SECONDS (23.9-36.7) H 04/25/21 04:34 Fibrinogen 310 mg/dL (174-498) 04/19/21 03:00 Fibrin Degrad Products Pos, 10-40 ug/mL (NEG) H 04/19/21 03:00 D-Dimer 6.68 ug/mIFEU (0-0.59) H 04/21/21 03:50 Specimen Type Arterial 04/25/21 12:21 Sample Site Brachial, left 04/25/21 12:21 ABG pH 7.36 (7.35-7.45) 04/25/21 12:21 ABG pCO2 35.2 mmHg (35-45) 04/25/21 12:21 ABG pO2 66.2 mmHg (80.0-100.0) L 04/25/21 12:21 ABG HCO3 20.0 mmol/L (22-26) L 04/25/21 12:21 ABG O2 Saturation 92.5 04/25/21 12:21 ABG Base Excess -4.8 mmol/L (-2.0-2.0) L 04/25/21 12:21 Dennis Test Pos 04/25/21 12:21 A-a O2 Gradient 23.3 mmHg (5-10) H 04/25/21 12:21 Hematocrit 28.6 % (37-47) L 04/25/21 12:21 Hgb O2 Saturation 90.9 % (95-100) L 04/25/21 12:21 Carboxyhemoglobin 1.3 %THgb (0.4-20.1) 04/25/21 12:21 Methemoglobin 0.5 % (0.4-1.5) 04/25/21 12:21 Total Hemoglobin 9.3 g/dL (12-16) L 04/25/21 12:21 Sodium 138.0 mmol/L (131-143) 04/25/21 12:21 Potassium 4.0 mmol/L (3.5-5.0) 04/25/21 12:21 Glucose 81.0 mg/dL (70-115) 04/25/21 12:21 Ionized Calcium 1.1 mmol/L (1.1-1.4) 04/25/21 12:21 Respiration Rate 20.0 % 04/23/21 05:25 O2 Delivery Device Vent 04/25/21 12:21 FiO2 40.0 % 04/25/21 12:21 Tidal Volume 0.35 04/25/21 12:21 PEEP 8.0 cmH20 04/25/21 12:21 Legislative Assistant ID Cak 04/25/21 12:21 Sodium 136 mmol/L (136-145) 04/25/21 04:34 Potassium 3.9 mmol/L (3.5-5.1) 04/25/21 04:34 Chloride 98 mmol/L (98-107) 04/25/21 04:34 Carbon Dioxide 19 mmol/L (22-29) L 04/25/21 04:34 Anion Gap 22.9 (5-19) H 04/25/21 04:34 BUN 20 mg/dL (6-20) 04/25/21 04:34 Creatinine 2.2 mg/dL (0.5-0.9) H 04/25/21 04:34 GFR Calculation 24.8 mL/min (90-130) L 04/25/21 04:34 Glucose 76 mg/dL (65-115) 04/25/21 04:34 POC Glucose 90 mg/dL (70-110) 04/25/21 12:08 Estimat Average Glucose 134 04/18/21 22:48 Hemoglobin A1c 6.3 % (4.0-6.0) H 04/18/21 22:48 Calculated Osmolality 283 mOsm/kg (285-295) L 04/25/21 04:34 Lactic Acid 5.1 mmol/L (0.5-2.2) H* 04/20/21 03:20 Lactic Acid (Sepsis) 4.7 mmol/L (0.5-2.2) H* 04/20/21 06:47 Uric Acid 12.0 mg/dL (2.4-5.7) H 04/20/21 09:20 Calcium 7.9 mg/dL (8.5-10.5) L 04/25/21 04:34 Phosphorus 3.7 mg/dL (2.5-4.5) 04/24/21 03:59 Magnesium 2.4 mg/dL (1.7-2.3) H 04/24/21 03:59 Iron 37 ug/dL (37-145) 04/23/21 06:20 TIBC 157 mcg/dl 04/23/21 06:20 % Saturation 23.5 % (20-50) 04/23/21 06:20 Unsat Iron Binding 120 ug/dL (112-347) 04/23/21 06:20 Ferritin 481 ng/mL (15-150) H 04/22/21 00:32 Total Bilirubin 1.3 mg/dL (0.15-1.2) H 04/25/21 04:34 GGT 108 U/L (5-36) H 04/19/21 03:00 AST 76 U/L (0-32) H 04/25/21 04:34 ALT 140 U/L (0-33) H 04/25/21 04:34 Alkaline Phosphatase 722 IU/L (35-105) H 04/25/21 04:34 Creatine Kinase 79 U/L (26-192) 04/19/21 03:00 Troponin T Baseline 31 ng/L (0-10) H 04/20/21 16:45 Troponin T 120 Minute 31.12 ng/L (0-10) H 04/20/21 19:44 Delta Troponin T 0.12 ABS# (0-10) 04/20/21 19:44 Troponin T Hi Sens 6Hr 27.06 ng/L (0-10) H 04/21/21 03:50 Troponin T Hi Sens 6Hr Delta -3.94 ng/L (0-12) L 04/21/21 03:50 C-Reactive Protein 6.3 mg/L (0.0-4.9) H 04/19/21 03:00 Total Protein 5.4 g/dL (6.6-8.7) L 04/25/21 04:34 Albumin 2.5 g/dL (3.5-5.2) L 04/25/21 04:34 Globulin 2.9 g/dL (1.3-4.6) 04/25/21 04:34 Triglycerides 340 mg/dL (0-150) H 04/25/21 04:34 Cholesterol 322 mg/dL (0-200) H 04/19/21 03:00 LDL Cholesterol Direct 15 mg/dL (0-100) 04/24/21 03:59 LDL Cholesterol, Calc Not Reportable 04/19/21 03:00 HDL Cholesterol 12 mg/dL (60-100) L 04/19/21 03:00 LDL/HDL Ratio Not Reportable 04/19/21 03:00 Cholesterol/HDL Ratio 26.83 mg/dL (0.0-4.40) H 04/19/21 03:00 Lipase 15 U/L (13-60) 04/25/21 04:34 25-OH Vitamin D Total 7 ng/mL (30-100) L 04/21/21 03:50 Procalcitonin 0.60 ng/mL (0-0.5) H 04/25/21 04:34 TSH 1.02 uIU/mL (0.27-4.20) 04/19/21 03:00 HCG, Qual Negative (Negative) 04/18/21 22:48 PTH Intact 274.7 pg/mL (15-65) H 04/21/21 03:50 Calcium (PTH Intact) 6.7 mg/dL (8.5-10.5) L 04/21/21 03:50 Urine Color Yellow (Yellow) 04/18/21 23:19 Urine Appearance Clear (CLEAR) 04/18/21 23:19 Urine pH 5 (5-7) 04/18/21 23:19 Ur Specific [place] 1.020 (1.005-1.030) 04/18/21 23:19 Urine Protein 3+ (Negative) H 04/18/21 23:19 Urine Glucose (UA) 1+ (Normal) H 04/18/21 23:19 Urine Ketones 1+ (Negative) H 04/18/21 23:19 Urine Blood 2+ (Negative) H 04/18/21 23:19 Urine Nitrate Negative (Negative) 04/18/21 23:19 Urine Bilirubin 1+ (Negative) H 04/18/21 23:19 Urine Urobilinogen 1 mg/dL (Negative) H 04/18/21 23:19 Ur Leukocyte Esterase Negative (Negative) 04/18/21 23:19 Urine RBC 5-10 /hpf (0-2) H 04/18/21 23:19 Urine WBC 0-4 /hpf (0-5) H 04/18/21 23:19 Ur Eosinophil Smear 0 (0-0) 04/19/21 05:35 Ur Squamous Epith Cells 10-15 /hpf (0-5) H 04/18/21 23:19 Amorphous Sediment 3+ /hpf 04/18/21 23:19 Urine Bacteria 2+ /hpf (NONE) H 04/18/21 23:19 Urine Eosinophils No eosinophils seen 04/19/21 05:35 Ur Random Creatinine 128 mg/dL (20-275) 04/19/21 05:35 Ur Random Albumin 46 % 04/19/21 05:35 U Random Total Protein 727 mg/dL (5-24) H 04/19/21 05:35 Ur Random Sodium 57 mmol/L 04/19/21 05:35 Ur Random Potassium 27 mmol/L 04/19/21 05:35 Ur Random Chloride 50 mmol/L 04/19/21 05:35 Urine Creatinine 139 mg/dL (28-217) 04/19/21 05:35 Protein/Creatinin Ratio 5680 mg/g creat (21-161) H 04/19/21 05:35 Protein/Creat Ratio 24h 5.680 (0.021-0.161) H 04/19/21 05:35 U Random j-8-Adacxioc % 4 % 04/19/21 05:35 U Random z-1-Gzykzuvt % 12 % 04/19/21 05:35 U Random Beta Globulin 21 % 04/19/21 05:35 U Random Gamma Glob 18 % 04/19/21 05:35 U Abnormal Prot Band 1 Not Reportable 04/19/21 05:35 U Abnormal Prot Band 2 Not Reportable 04/19/21 05:35 U Abnormal Prot Band 3 Not Reportable 04/19/21 05:35 Urine PEP Interpret See note 04/19/21 05:35 Vancomycin Trough 20.4 ug/mL (10-15) H 04/20/21 03:20 Salicylates < 0.3 mg/dL (3-10) L 04/19/21 03:00 Acetaminophen < 5.0 ug/mL (10-30) L 04/19/21 03:00 Ethylene Glycol <10.0 mg/L () 04/19/21 03:00 Volat Analys Perform On Whole blood 04/19/21 03:00 Ethyl Alcohol < 10 mg/dL (0-10) 04/19/21 03:00 Urine Ethyl Alcohol Cancelled 04/19/21 05:35 Methyl Alcohol Level None detected mg/dL 04/19/21 03:00 Serum Ketones Negative (Negative) 04/20/21 19:44 Coronavirus 229E (PCR) Not detected (NOT DETECT) 04/19/21 05:35 Hepatitis A IgM Ab Non-reactive (Nonreactive) 04/19/21 03:00 Hep Bs Antigen Non-reactive (Nonreactive) 04/20/21 03:20 Hep Bs Antibody 3.5 (11.5-1000) L 04/20/21 03:20 Hep B Core IgM Ab Non-reactive (Nonreactive) 04/19/21 03:00 Hepatitis C Antibody Non-reactive (Nonreactive) 04/20/21 03:20 HIV 1&2 Ab & HIV 1 Ag Non-reactive (Non-Reactiv) 04/19/21 03:00 HIV 1&2 Antibody Non-reactive (Non-Reactiv) 04/19/21 03:00 Influenza Type A Ag Negative (Negative) 04/19/21 05:35 Influenza Type B Ag Negative (Negative) 04/19/21 05:35 SARS-CoV-2 (PCR) Detected (NOT DETECT) A 04/19/21 05:35 SARS-CoV-2 Ag (Rapid) Negative (Negative) 04/18/21 21:49 Blood Type O Positive 04/23/21 20:40 Rho(D) Type Positive 04/23/21 20:40 Antibody Screen Negative 04/23/21 20:40 Crossmatch See Detail 04/23/21 20:40 A&P Assessment and plan (1) Acute respiratory distress syndrome (ARDS) due to 2019 novel coronavirus: Status: Acute (2) COVID: Status: Acute (3) Increased anion gap metabolic acidosis: Status: Acute (4) Acute encephalopathy: Status: Acute (5) Acute pancreatitis: Status: Acute (6) Mild mental handicap: Status: Acute (7) GODFREY (generalized anxiety disorder): Status: Acute (8) Essential hypertension: Status: Acute (9) Hypertriglyceridemia: Status: Acute (10) Leukocytosis: Status: Acute (11) Aspiration pneumonia: Status: Acute (12) Hypovolemic shock: Status: Acute Plan # Acute hypoxic respiratory failure in patient with COVID-19 pneumonia and fluid overload secondary to TONY -possible ARDS and patient with COVID-19 PCR positive/pancreatitis; subsegmental PE on CT #TONY due to hypovolemia-ischemic ATN/MAMI/Covid TONY-currently on HD #Hypovolemic shock secondary to pancreatitis-currently off pressors #Pancreatitis secondary to hypertriglyceridemia #Generalized anxiety disorder #Leukocytosis-secondary to dehydration versus possible aspiration pneumonia - with h/o vomiting -Intubated on 04/20/2021 night after an episode of vomiting while she was on BiPAP -Currently sedated with fentanyl and Precedex,-still very tachypneic and increased work of breathing-we will start on Versed -ABG 7.3 //20/92% on CMV 40%/350/PEEP of 8-we will continue SBT trials and plan to extubate in next 24 to 48 hours -Completed remdesivir and currently on dexamethasone -Also covered with Zosyn for possible aspiration pneumonia -Continue monitoring respiratory status and saturations closely -Off pressors -CT angiogram subsegmental PE; bilateral venous Doppler negative for DVT-on heparin drip -Triglycerides trending down -off propofol -Off insulin drip-currently on subcutaneous insulin-sugars well controlled -Improving bilirubin-abdominal ultrasound: Gallstones with no gallbladder wall thickening or pericolic cystic fluid. There is a hypoechoic lesion in posterior mid abdominal ultrasound-recommended CT abdomen/pelvis with contrast --Ketonemia could be secondary to vomitings-resolved -Currently n.p.o. for pancreatitis and ileus; had 2 bowel movements and decreasing NG output-we will consider starting on tube feedings from tomorrow -monitor FSBS closely and adjust IV insulin accordingly -Renal to continue hemodialysis to to remove fluid -Patient's family updated at bedside -Prognosis guarded Recommendations conveyed to hospitalist, RN, RT taking care of the patient Attestations Medical Necessity Statement*: Hypoxic respiratory failure secondary to ARDS due to pancreatitis-fluid overload due to TONY and patient with underlying Covid pneumonia and aspiration pneumonia-requiring mechanical intubation Time Spent in Patient Care: Greater than 35 minutes (>than 50% of time spent in counselling and/or direct pt care on unit) . Critical Care Time: The high probability of a clinically significant, sudden or life threatening deterioration of the patient's [pulmonary, renal system(s) required my full and direct attention, intervention and personal management. The critical care time is as shown. This time is in addition to time spent performing any reported procedures but includes the following: [x] Data and vital sign review and interpretation [x] Patient assessment, examination and intervention [x] Documentation [x] Medication orders and management Critical Care Time (min): 45 Coding Level of Care Code Established Pt Acute Manager Universal for Thai Fwd Patient Type Established History Comprehensive Exam Comprehensive Diagnoses Acute respiratory distress syndrome (ARDS) due to 2019 novel coronavirus U07.1; J80 COVID U07.1 Increased anion gap metabolic acidosis E87.2 Acute encephalopathy G93.40 Acute pancreatitis K85.90 Mild mental handicap F70 GODFREY (generalized anxiety disorder) F41.1 Essential hypertension I10 Hypertriglyceridemia E78.1 Leukocytosis D72.829 Aspiration pneumonia J69.0 Hypovolemic shock R57.1 Time Spent (min) 45
--- NOTE | 2021-04-25 13:17 | ECG_ITS ---
[facility] Test Date: 2021-04-25 Pat Name: Precious Mckeon Department: Room: ICU11 Gender: Female Power Originator: : 1980 Requested By: Paresh Reese Order Number: [id number] Tracee MD: Patricia Sam M.D. Measurements Intervals [place] Rate: 127 P: 54 CO: 147 QRS: 62 QRSD: 80 T: 42 QT: 285 QTc: 415 Interpretive Statements SINUS TACHYCARDIA LOW QRS VOLTAGE IN PRECORDIAL LEADS [QRS DEFLECTION < 1.0 mV IN CHEST LEADS] WARNING: DATA QUALITY MAY AFFECT INTERPRETATION Compared to ECG 04/20/2021 15:13:02 Short CO interval no longer present Electronically Signed On 04-27-2021 8:54:22 SELF [employer]LLED [employer] OPERATOR by Patricia Sam M.D. [email or web address]
--- NOTE | 2021-04-25 13:50 | PC.NURSE ---
respiratory rate remains rapid even with addition of versed gtt and had episode of bradycardia in which we had to stop precedex gtt after calling doctor .. rapid agonal resp remain
--- NOTE | 2021-04-25 14:00 | CTR_ITS ---
PROCEDURE INFORMATION: Exam: CT Head Without Contrast Exam date and time: 04/25/2021 2:00 PM Age: 40 years old Clinical indication: Coma or unconsciousness; Patient HX: Failure to wean; Additional info: Tachypnea after intubation TECHNIQUE: Imaging protocol: Computed tomography of the head without contrast. Radiation optimization: All CT scans at this facility use at least one of these dose optimization techniques: automated exposure control; mA and/or kV adjustment per patient size (includes targeted exams where dose is matched to clinical indication); or iterative reconstruction. COMPARISON: CT head wo con* [id number] 04/19/2021 2:46 AM RADIATION DOSE METRICS: Total DLP (mGy-cm): 657.43 FINDINGS: Brain: No hemorrhage or evidence of acute infarction. No mass effect. Cerebral ventricles: No ventriculomegaly. Paranasal sinuses: Mild to moderate sinusitis changes are appreciated. Mastoid air cells: Bilateral mastoiditis is noted. Fluid is also present in the right mesotympanum. Bones/joints: Unremarkable. No acute fracture. Soft tissues: Unremarkable. CT/CT head wo con* [id number] IMPRESSION: 1. No acute intracranial abnormality. 2. Bgno-md-hdsripev sinusitis. 3. Bilateral mastoiditis and right otitis media.
--- NOTE | 2021-04-25 14:00 | PM.PN ---
Subjective Subjective: Interval history: Patient was very tachypneic, failed weaning trial Also developed sinus pauses Precedex discontinued, will put her back on Versed We will obtain CT head for evaluation of tachypnea Minimal urine output, oliguric Leukocytosis of 12,000 Hemoglobin stable 8.9 Febrile episodes noted FiO2 40%, PO2 66 Gallbladder ultrasound is still pending, KUB showing resolution of ileus Start tube feed today Vitals/I&O/Wt Last Vital Signs Temp 101 F H 04/25/21 10:31 Pulse 137 H 04/25/21 12:00 Resp 30 H 04/25/21 13:56 BP 130/93 04/25/21 12:00 Pulse Ox 92 04/25/21 13:56 04/24/21 04/25/21 04/25/21 22:59 06:59 14:59 Intake Total 472.739 / 1003.275 294.546 / 1297.821 260.733 / 260.733 Output Total 250 / 250 Balance 472.739 / 1003.275 44.546 / 1047.821 260.733 / 260.733 Weight last 48 hrs Weight 69.3 kg Physical Exam Narrative: EXAM NARRATIVE: Patient tachypneic, intubated, sedated Abdomen is less firm Patient very anxious and tachypneic Young female No signs of edema of legs Concentrated urine color Assisted bilateral breath sound Neuro exam limited No joint swelling Urinary Catheter Management: Carroll: Cath Placed During This Visit: yes Reason for Continuing Indwelling Catheter: Accurate Measurement of Urinary Output in Critically Ill Patients Urinary Catheter Date of Insertion: 04/19/21 Urinary Catheter Time of Insertion: 01:00 Data : 04/25/21 04:34 04/25/21 04:34 A&P Assessment and plan (1) Abnormal transaminases: Status: Acute (2) Hypovolemic shock: Status: Acute (3) Aspiration pneumonia: Status: Acute (4) Acute respiratory distress syndrome (ARDS) due to 2019 novel coronavirus: Status: Acute (5) ATN (acute tubular necrosis): Status: Acute (6) COVID: Status: Acute (7) Increased anion gap metabolic acidosis: Status: Acute (8) Acute encephalopathy: Status: Acute (9) Acute kidney injury: Status: Acute (10) Mild mental handicap: Status: Acute (11) Hypertriglyceridemia: Status: Acute Plan Sinus pauses noted on Precedex 1.0, turned off, added Versed for sedation COVID-19 related hypoxia currently intubated and sedated, not ready to be weaned off completely She is very tachypneic, will obtain CT head for evaluation of tachypnea Bilirubin and transaminases improving, gallbladder ultrasound showed cholelithiasis, continue IV antibiotics Start tube feeds tomorrow as ileus has improved she had bowel movements yesterday Patient was intubated on 04/20 after episode of vomiting while on BiPAP Plan to escalate her IV Zosyn to Primaxin for persistent febrile episodes Acute PE currently on heparin Triglyceride pancreatitis triglyceride level less than 500 off propofol, avoid propofol for sedation Off insulin drip which was used when we treated hyperglycemia induced pancreatitis Mother at the bedside Appreciate nephro and pulmonary recommendations Continue hemodialysis to remove fluids X-ray requested, lung auscultation revealed crackles Guarded prognosis Failed weaning trial Completed remdesivir currently on IV steroids Attestations Medical Necessity Statement*: Continue ICU management Time Spent in Patient Care: 20min Coding Level of Care Code Acute Senior Living Sales Counselor for Chg Fwd Diagnoses Abnormal transaminases R74.8 Hypovolemic shock R57.1 Aspiration pneumonia J69.0 Acute respiratory distress syndrome (ARDS) due to 2019 novel coronavirus U07.1; J80 ATN (acute tubular necrosis) N17.0 COVID U07.1 Increased anion gap metabolic acidosis E87.2 Acute encephalopathy G93.40 Acute kidney injury N17.9 Mild mental handicap F70 Hypertriglyceridemia E78.1
--- NOTE | 2021-04-25 14:08 | CTR_ITS ---
PROCEDURE INFORMATION: Exam: CT Abdomen And Pelvis Without Contrast Exam date and time: 04/25/2021 2:08 PM Age: 40 years old Clinical indication: Bloating and fever; Patient HX: Pancreatitis and fever TECHNIQUE: Imaging protocol: Computed tomography of the abdomen and pelvis without contrast. Radiation optimization: All CT scans at this facility use at least one of these dose optimization techniques: automated exposure control; mA and/or kV adjustment per patient size (includes targeted exams where dose is matched to clinical indication); or iterative reconstruction. COMPARISON: CT abdomen pelvis wo con [id number] 04/18/2021 11:31 PM RADIATION DOSE METRICS: Total DLP (mGy-cm): 1732.97 FINDINGS: Tubes, catheters and devices: A catheter is present in the urinary bladder. The tip of the nasogastric tube is in the proximal stomach. Right femoral venous catheter is in place. Lungs: Bibasilar lung opacities are noted which have worsened since the prior study. Liver: A small 6 mm indeterminate hypodense lesion is present in segment III of the liver. Gallbladder and bile ducts: Normal. No calcified stones. No ductal dilation. Pancreas: Faint peripancreatic fat stranding is noted. No ductal dilation. Spleen: Normal. No splenomegaly. Adrenal glands: Normal. No mass. Kidneys and ureters: The kidneys demonstrate nephrogram appearance raise the possibility of contrast (from prior exam) nephropathy. No hydronephrosis. Stomach and bowel: Unremarkable. No obstruction. No mucosal thickening. Appendix: The appendix is normal. Intraperitoneal space: A small amount of ascites is present. No abscess or free air. Vasculature: Unremarkable. No abdominal aortic aneurysm. Lymph nodes: Unremarkable. No enlarged lymph nodes. Urinary bladder: Unremarkable as visualized. Reproductive: The uterus and ovaries appear normal. Bones/joints: Unremarkable. No acute fracture. Soft tissues: Mild to moderate anasarca is appreciated. CT/CT abdomen pelvis wo con [id number] IMPRESSION: 1. Bibasilar opacities may be aspiration related, ARDS or pneumonia. 2. Possible contrast nephropathy, correlate clinically. 3. Trace ascites and mild to moderate anasarca. 4. Mild residual pancreatitis.
[2021-04-25 17:12] LABS: Partial Thromboplastin Time 63.3 SECONDS (23.9-36.7)
[2021-04-25 18:45] LABS: Glucose Point of Care 115 mg/dL (70-110)
--- NOTE | 2021-04-25 19:00 | PC.NURSE ---
corrected documentation on E-MAR for Heparin drip. Current rate 23ml/h, continue at 23ml/h because PTT is 63.3 within therapeutic range.
[2021-04-25 20:11] LABS: Glucose Point of Care 116 mg/dL (70-110)
[2021-04-26] VITALS (56 sets, daily range): BP systolic 123–160; BP diastolic 79–93; PULSE 101–124; RESP 21–42; TEMP 36.8–38.1; O2SAT 92–99
[2021-04-26 00:16] LABS: Partial Thromboplastin Time 90.3 SECONDS (23.9-36.7)
[2021-04-26] MEDS: famotidine 20 mg/2 mL INJ IVP ×2 (02:24→15:01)
[2021-04-26] MEDS: ipratropium-albuterol 3 mL Neb INHALATION ×6 (03:14→23:19)
[2021-04-26] MEDS: heparin drip 25,000 UNIT/500 ML PREMIX 21 UNIT IV (04:22)
[2021-04-26 04:24] LABS: ABG PCO2 22.4 mmHg (35-45); ABG PH Result 7.36 (7.35-7.45); Arterial Blood Gas Hematocrit 26.5 % (37-47); Base Excess ABG -11.2 mmol/L (-2.0-2.0); Blood Gas Sample Site Radial, left; Blood Gas Sample Type Arterial; HCO3 ABG 12.8 mmol/L (22-26)
[2021-04-26 04:27] LABS: Blood Gas Tidal Volume 0.35; Oxygen Device VENT
[2021-04-26 06:26] LABS: Hematocrit 26.2 % (37.0-47.0); Hemoglobin 8.5 g/dL (11.5-15.3); Mean Corpuscular HGB Conc 32.4 g/dL (30.0-36.0); Mean Corpuscular Hemoglobin 30.6 pg (28.0-34.0); Mean Corpuscular Volume 94.2 fl (81-99); Mean Platelet Volume 12.3 fL (7.4-10.4); Platelet Count 210 10^3/cmm (130-400); Red Blood Count 2.78 10^6/uL (4.1-5.3); Red Cell Distribution Width 15.7 % (12.1-15.1); White Blood Count 16.5 10^3/uL (4.0-10.0)
[2021-04-26 06:38] LABS: Partial Thromboplastin Time 53.4 SECONDS (23.9-36.7)
[2021-04-26] MEDS: heparin 5,000 unit/mL INJ 1 mL IV ×3 (06:44→23:27)
[2021-04-26 06:57] LABS: Alanine Aminotransferase 86 U/L (0-33); Albumin Level 2.6 g/dL (3.5-5.2); Alkaline Phosphatase 599 IU/L (35-105); Anion Gap 36.8 (5-19); Aspartate Amino Transferase 47 U/L (0-32); Blood Urea Nitrogen 52 mg/dL (6-20); Calcium 7.8 mg/dL (8.5-10.5); Carbon Dioxide 13 mmol/L (22-29); Chloride 94 mmol/L (98-107); Glomerular Filtration Rate 12.5 mL/min (90-130); Glucose 107 mg/dL (65-115); Osmolality Calculated 303 mOsm/kg (285-295); Potassium 4.8 mmol/L (3.5-5.1); Sodium 139 mmol/L (136-145); Total Bilirubin 1.4 mg/dL (0.15-1.2); Total Protein 5.6 g/dL (6.6-8.7)
[2021-04-26 07:27] LABS: C Reactive Protein 100.4 mg/L (0.0-4.9); Lactate Dehydrogenase 725 U/L (135-214)
[2021-04-26 07:34] LABS: Slide Review Slide Review Perform
[2021-04-26 07:41] LABS: Glucose Point of Care 109 mg/dL (70-110)
[2021-04-26 07:45] LABS: Absolute Segmented Neutrophil 7.8 10/cmm (1.6-7.1); Anisocytosis Trace; Band Neutrophils Absolute 2.3 10^3/cmm (0.0-1.2); Eosinophils 0 %; Lymphocytes 20 %; Lymphocytes Absolute 3.3 10^3/cmm (1.2-3.4); Segmented Neutrophils 47 %; Total Cells Counted 100 (0-100)
[2021-04-26 07:46] LABS: Absolute Neutrophil 10.1 10^3/cmm (1.4-6.5); Platelet Estimate Normal (Normal)
--- NOTE | 2021-04-26 07:54 | ECG_ITS ---
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 Measurements Intervals [place] Rate: 114 P: 66 NM: 145 QRS: 67 QRSD: 86 T: 45 QT: 305 QTc: 422 Interpretive Statements SINUS TACHYCARDIA LOW QRS VOLTAGE [QRS DEFLECTION < 0.5/1.0 mV IN LIMB/CHEST LEADS] Compared to ECG 04/25/2021 17:19:50 No significant changes Electronically Signed On 04-26-2021 16:58:43 BILINGUAL SALES ASSISTANT by Patricia Sam M.D. [id number]
[2021-04-26] MEDS: sodium bicarbonate 150 MEQ in dextrose 5% 1,000 ML 100 MEQ IV ×2 (08:39→20:43)
[2021-04-26] MEDS: fenofibrate 145 mg Tablet PO (08:42)
[2021-04-26] MEDS: calcium carbonate 500 mg Chew Tablet 1000 MG PO ×3 (08:42→20:17)
[2021-04-26] MEDS: sennosides-docusate Tablet 2 TAB PO (08:42)
[2021-04-26] MEDS: quetiapine 25 mg Tablet 50 MG PO ×2 (08:42→17:22)
--- NOTE | 2021-04-26 08:44 | P.PN_ITS ---
Subjective Subjective: Interval history: Remains critically sick in the ICU, remains vented. Acidosis noted this morning, no other new issues, still failing weaning trials Minimal urine output Minimal global edema Hemodynamics remain stable Medications: Reviewed: Yes Medication Review Details: Current Medications Acetaminophen (Acetaminophen 325 Mg Tablet) 650 mg PO Q6H PRN PRN Reason: Mild/Mod Pain Or Temp >/= 101 Albuterol/Ipratropium (Ipratropium-Albuterol 3 Ml Neb) 3 ml INHALATION Q6H.RESPIRATORY ANNIE Last Admin: 04/23/21 03:41 Dose: 3 ml Documented by: Calcium Carbonate (Calcium Carbonate 500 Mg Chew Tablet) 1,000 mg PO TID ANNIE Last Admin: 04/22/21 21:31 Dose: 1,000 mg Documented by: Dexamethasone (Dexamethasone 10 Mg/Ml Inj) 6 mg IVP Q24H [facility] Last Admin: 04/22/21 13:38 Dose: 6 mg Documented by: Dextrose (Dextrose 50% Syringe 50 Ml) 25 ml IVP ONCE PRN; Protocol PRN Reason: hypoglycemia protocol Last Admin: 04/20/21 00:25 Dose: 25 ml Documented by: Dextrose (Dextrose 50% Syringe 50 Ml) 50 ml IVP PRN PRN; Protocol PRN Reason: hypoglycemia protocol Last Admin: 04/19/21 20:35 Dose: 50 ml Documented by: Dextrose (Dextrose 50% Syringe 50 Ml) 25 ml IVP ONCE PRN; Protocol PRN Reason: hypoglycemia protocol Dextrose (Dextrose 50% Syringe 50 Ml) 50 ml IVP PRN PRN; Protocol PRN Reason: hypoglycemia protocol Ergocalciferol (Ergocalciferol (Vitamin D2) 50,000 Unit Capsule) 50,000 unit PO Q7D [facility] Last Admin: 04/21/21 12:04 Dose: 50,000 unit Documented by: Famotidine (Famotidine 20 Mg/2 Ml Inj) 20 mg IVP Q12H ANNIE Last Admin: 04/23/21 01:38 Dose: 20 mg Documented by: Fenofibrate (Fenofibrate 145 Mg Tablet) 145 mg PO DAILY [facility] Last Admin: 04/22/21 09:06 Dose: 145 mg Documented by: Glucagon (Glucagon 1 Mg/Ml Inj 1 Ml) 1 mg IM ONCE PRN; Protocol PRN Reason: Adult Acute Hypoglycemia Prot Glucagon (Glucagon 1 Mg/Ml Inj 1 Ml) 1 mg IM ONCE PRN; Protocol PRN Reason: Adult Acute Hypoglycemia Prot. Heparin Sodium (Porcine) (Heparin 5,000 Unit/Ml Inj 1 Ml) 5,000 unit SUBCUT Q12H [facility] Last Admin: 04/21/21 04:54 Dose: Not Given Documented by: Dextrose (D5w) 500 mls @ 100 mls/hr IV ONCE PRN; Protocol PRN Reason: Adult Acute Hypoglycemia Prot Last Infusion: 04/20/21 18:12 Dose: Infused Documented by: Insulin Human Regular 250 unit (/ Sodium Chloride) 252.5 mls @ 0 mls/hr IV .Q0M ANNIE; Protocol Last Titration: 04/22/21 21:29 Dose: 0 unit/hr, 0 mls/hr Documented by: Piperacillin Sod/Tazobactam (Sod 3.375 gm/ Sodium Chloride) 50 mls @ 12.5 mls/hr IV Q12H [facility]; Protocol Last Infusion: 04/23/21 05:37 Dose: Infused Documented by: Dextrose/Sodium Chloride (Dextrose 5%-Sod Chloride 0.45%) 1,000 mls @ 200 mls/hr IV .Q5H [facility] Last Admin: 04/23/21 03:14 Dose: Not Given Documented by: Norepinephrine Bitartrate 4 mg (/ Dextrose) 254 mls @ 0 mls/hr IV .Q0M [facility]; Protocol Last Titration: 04/21/21 22:00 Dose: Infused Documented by: Remdesivir 100 mg/ Sodium (Chloride) 100 mls @ 100 mls/hr IV Q24H [facility] Stop: 04/24/21 06:59 Last Admin: 04/23/21 05:05 Dose: 100 mls/hr Documented by: Norepinephrine Bitartrate 4 mg (/ Dextrose) 254 mls @ 0 mls/hr IV .Q0M [facility]; Protocol Last Titration: 04/22/21 05:16 Dose: 0 mcg/min, 0 mls/hr Documented by: Heparin Sodium/Sodium Chloride (Heparin Drip) 25,000 unit in 500 mls @ 0 mls/hr IV .Q0M ANNIE; Protocol Last Admin: 04/23/21 04:22 Dose: 20 unit/kg/hr, 24.39 mls/hr Documented by: dexmedeTOMIDine 0.9 % NaCL (Precedex) 400 mcg in 100 mls @ 0 mls/hr IV .Q0M [facility]; Protocol Last Titration: 04/21/21 01:15 Dose: 0 mcg/kg/hr, 0 mls/hr Documented by: Albumin Human (Albumin) 12.5 gm in 50 mls @ 60 mls/hr IV PRN PRN PRN Reason: Hypotension and/or symptomatic Propofol (Diprivan) 1,000 mg in 100 mls @ 0 mls/hr IV .Q0M ANNIE; Protocol Last Titration: 04/23/21 04:45 Dose: 20 mcg/kg/min, 7.32 mls/hr Documented by: Fentanyl 2,500 mcg/ Sodium (Chloride) 250 mls @ 0 mls/hr IV .Q0M ANNIE; Protocol Last Admin: 04/23/21 03:52 Dose: 50 mcg/hr, 5 mls/hr Documented by: Dextrose (D5w) 500 mls @ 100 mls/hr IV ONCE PRN; Protocol PRN Reason: Adult Acute Hypoglycemia Prot Insulin Human Lispro (Insulin Lispro 100 Unit/1 Ml) 0 unit SUBCUT WM&BEDTIME ANNIE; Protocol Lactulose (Lactulose Oral Liq 20 Gm/30 Ml Udc) 10 gm PO DAILY PRN PRN Reason: CONSTIPATION Lorazepam (Lorazepam 2 Mg/Ml Inj 1 Ml) 2 mg IVP Q4H PRN PRN Reason: ANXIETY Last Admin: 04/21/21 00:01 Dose: 2 mg Documented by: Naloxone HCl (Naloxone 0.4 Mg/Ml Sdv) 0.1 mg IVP Q2M PRN PRN Reason: OPIATERV Ondansetron HCl (Ondansetron 2 Mg/Ml Sdv 2 Ml) 4 mg IVP Q8H PRN PRN Reason: vomiting, or N/V if npo Last Admin: 04/20/21 19:18 Dose: 4 mg Documented by: Senna/Docusate Sodium (Sennosides-Docusate Tablet) 2 tab PO DAILY ANNIE Last Admin: 04/22/21 09:06 Dose: 2 tab Documented by: Vitals/I&O/Wt Last Vital Signs Temp 98.2 F 04/26/21 04:00 Pulse 113 H 04/26/21 08:18 Resp 34 H 04/26/21 08:09 BP 146/85 04/26/21 04:00 Pulse Ox 95 04/26/21 08:09 04/25/21 04/26/21 04/26/21 22:59 06:59 14:59 Intake Total 692.183 / 952.916 276.484 / 1229.400 Output Total 1874 / 1875 1874 Balance -1182.817 / -922.084 276.484 / -645.600 Weight last 48 hrs Weight 69.49 kg Weight 69.1 kg Physical Exam Narrative: EXAM NARRATIVE: Constitutional: Intubated and vented HEENT: Wet mucosa, no jvp, non icteric Lungs: Bilaterally clear without discernible wheeze or rales in all lung zones CVS: S1 S2, no murmurs Abdo: Soft, BS ok Ext 4: Minimal edema, peripheral perfusion with no cyanosis Neurological: Grossly non-focal Urinary Catheter Management: Carroll: Cath Placed During This Visit: yes Reason for Continuing Indwelling Catheter: Accurate Measurement of Urinary Output in Critically Ill Patients Urinary Catheter Date of Insertion: 04/19/21 Urinary Catheter Time of Insertion: 01:00 Data : 04/26/21 05:45 04/26/21 05:45 A&P Assessment and plan (1) ATN (acute tubular necrosis): 1. Acute kidney injury Remains oligoanuric, likely secondary to acute tubular injury Dialysis planned for tomorrow morning prior to extubation attempts Noted to be increasingly acidotic today otherwise no acute indication for dialysis Strict I's and O's Close monitoring for recovery Dose medication for GFR less than 15 on dialysis 2. Vent dependent respiratory failure Management per the ICU team, agitated when brought down off sedation 3. Pancreatitis Secondary to hypertriglyceridemia, triglyceride levels now trending down, below 500 Lipase ok. 4. Chemistry Increasing AGMA; recheck LA/ ketones Possibly uremic but rapid increase makes other differentials more likely Mother at bedside, with whom I discussed care and answered all of her questions Thank you for consultation, it is a pleasure to follow these cases with you Exam and interview performed with aid of bedside RN using telemedicine Time spent 20 min inc > 50% of time in face to face counseling Pollo Seo MD [facility] [phone] Status: Acute Attestations Medical Necessity Statement*: Eval for electrolyte disturbance Coding Level of Care Code Acute Grants Specialist for Chg Fwd Diagnoses ATN (acute tubular necrosis) N17.0
[2021-04-26] MEDS: alteplase 1 mg/mL SDV 2 mL 2 MG INTRACATH (08:53)
[2021-04-26 09:05] LABS: Lactate (Lactic Acid level) 1.4 mmol/L (0.5-2.2)
[2021-04-26 09:19] LABS: Ketone (Acetest) Serum Positive (Negative)
[2021-04-26] MEDS: ferric gluconate 125 MG in sodium chloride 0.9% (100 ml) 100 ML 100 MG IV (10:41)
[2021-04-26 11:30] LABS: Glucose Point of Care 149 mg/dL (70-110)
[2021-04-26] MEDS: dexamethasone 10 mg/mL INJ 6 MG IVP (12:39)
--- NOTE | 2021-04-26 13:34 | PM.PN ---
Subjective Subjective: Interval history: -Patient seen at bedside today -Currently requiring 30% FiO2 on ventilator -Still breathing over the vent-on Versed, fentanyl-tapering down sedation has been a challenge -We'll slowly attempt to, Versed and tapered on fentanyl and managed with propofol/Precedex and do awakening trial -Started on Seroquel 50 twice daily -Other labs and imaging reviewed Medications: Reviewed: Yes Medication Review Details: Current Medications Acetaminophen (Acetaminophen 325 Mg Tablet) 650 mg PO Q6H PRN PRN Reason: Mild/Mod Pain Or Temp >/= 101 Albuterol/Ipratropium (Ipratropium-Albuterol 3 Ml Neb) 3 ml INHALATION Q6H.RESPIRATORY ANNIE Last Admin: 04/23/21 03:41 Dose: 3 ml Documented by: Calcium Carbonate (Calcium Carbonate 500 Mg Chew Tablet) 1,000 mg PO TID ANNIE Last Admin: 04/22/21 21:31 Dose: 1,000 mg Documented by: Dexamethasone (Dexamethasone 10 Mg/Ml Inj) 6 mg IVP Q24H [facility] Last Admin: 04/22/21 13:38 Dose: 6 mg Documented by: Dextrose (Dextrose 50% Syringe 50 Ml) 25 ml IVP ONCE PRN; Protocol PRN Reason: hypoglycemia protocol Last Admin: 04/20/21 00:25 Dose: 25 ml Documented by: Dextrose (Dextrose 50% Syringe 50 Ml) 50 ml IVP PRN PRN; Protocol PRN Reason: hypoglycemia protocol Last Admin: 04/19/21 20:35 Dose: 50 ml Documented by: Dextrose (Dextrose 50% Syringe 50 Ml) 25 ml IVP ONCE PRN; Protocol PRN Reason: hypoglycemia protocol Dextrose (Dextrose 50% Syringe 50 Ml) 50 ml IVP PRN PRN; Protocol PRN Reason: hypoglycemia protocol Ergocalciferol (Ergocalciferol (Vitamin D2) 50,000 Unit Capsule) 50,000 unit PO Q7D [facility] Last Admin: 04/21/21 12:04 Dose: 50,000 unit Documented by: Famotidine (Famotidine 20 Mg/2 Ml Inj) 20 mg IVP Q12H ANNIE Last Admin: 04/23/21 01:38 Dose: 20 mg Documented by: Fenofibrate (Fenofibrate 145 Mg Tablet) 145 mg PO DAILY [facility] Last Admin: 04/22/21 09:06 Dose: 145 mg Documented by: Glucagon (Glucagon 1 Mg/Ml Inj 1 Ml) 1 mg IM ONCE PRN; Protocol PRN Reason: Adult Acute Hypoglycemia Prot Glucagon (Glucagon 1 Mg/Ml Inj 1 Ml) 1 mg IM ONCE PRN; Protocol PRN Reason: Adult Acute Hypoglycemia Prot. Heparin Sodium (Porcine) (Heparin 5,000 Unit/Ml Inj 1 Ml) 5,000 unit SUBCUT Q12H [facility] Last Admin: 04/21/21 04:54 Dose: Not Given Documented by: Dextrose (D5w) 500 mls @ 100 mls/hr IV ONCE PRN; Protocol PRN Reason: Adult Acute Hypoglycemia Prot Last Infusion: 04/20/21 18:12 Dose: Infused Documented by: Insulin Human Regular 250 unit (/ Sodium Chloride) 252.5 mls @ 0 mls/hr IV .Q0M [facility]; Protocol Last Titration: 04/22/21 21:29 Dose: 0 unit/hr, 0 mls/hr Documented by: Piperacillin Sod/Tazobactam (Sod 3.375 gm/ Sodium Chloride) 50 mls @ 12.5 mls/hr IV Q12H [facility]; Protocol Last Infusion: 04/23/21 05:37 Dose: Infused Documented by: Dextrose/Sodium Chloride (Dextrose 5%-Sod Chloride 0.45%) 1,000 mls @ 200 mls/hr IV .Q5H [facility] Last Admin: 04/23/21 03:14 Dose: Not Given Documented by: Norepinephrine Bitartrate 4 mg (/ Dextrose) 254 mls @ 0 mls/hr IV .Q0M [facility]; Protocol Last Titration: 04/21/21 22:00 Dose: Infused Documented by: Remdesivir 100 mg/ Sodium (Chloride) 100 mls @ 100 mls/hr IV Q24H [facility] Stop: 04/24/21 06:59 Last Admin: 04/23/21 05:05 Dose: 100 mls/hr Documented by: Norepinephrine Bitartrate 4 mg (/ Dextrose) 254 mls @ 0 mls/hr IV .Q0M [facility]; Protocol Last Titration: 04/22/21 05:16 Dose: 0 mcg/min, 0 mls/hr Documented by: Heparin Sodium/Sodium Chloride (Heparin Drip) 25,000 unit in 500 mls @ 0 mls/hr IV .Q0M [facility]; Protocol Last Admin: 04/23/21 04:22 Dose: 20 unit/kg/hr, 24.39 mls/hr Documented by: dexmedeTOMIDine 0.9 % NaCL (Precedex) 400 mcg in 100 mls @ 0 mls/hr IV .Q0M ANNIE; Protocol Last Titration: 04/21/21 01:15 Dose: 0 mcg/kg/hr, 0 mls/hr Documented by: Albumin Human (Albumin) 12.5 gm in 50 mls @ 60 mls/hr IV PRN PRN PRN Reason: Hypotension and/or symptomatic Propofol (Diprivan) 1,000 mg in 100 mls @ 0 mls/hr IV .Q0M ANNIE; Protocol Last Titration: 04/23/21 04:45 Dose: 20 mcg/kg/min, 7.32 mls/hr Documented by: Fentanyl 2,500 mcg/ Sodium (Chloride) 250 mls @ 0 mls/hr IV .Q0M ANNIE; Protocol Last Admin: 04/23/21 03:52 Dose: 50 mcg/hr, 5 mls/hr Documented by: Dextrose (D5w) 500 mls @ 100 mls/hr IV ONCE PRN; Protocol PRN Reason: Adult Acute Hypoglycemia Prot Insulin Human Lispro (Insulin Lispro 100 Unit/1 Ml) 0 unit SUBCUT WM&BEDTIME ANNIE; Protocol Lactulose (Lactulose Oral Liq 20 Gm/30 Ml Udc) 10 gm PO DAILY PRN PRN Reason: CONSTIPATION Lorazepam (Lorazepam 2 Mg/Ml Inj 1 Ml) 2 mg IVP Q4H PRN PRN Reason: ANXIETY Last Admin: 04/21/21 00:01 Dose: 2 mg Documented by: Naloxone HCl (Naloxone 0.4 Mg/Ml Sdv) 0.1 mg IVP Q2M PRN PRN Reason: OPIATERV Ondansetron HCl (Ondansetron 2 Mg/Ml Sdv 2 Ml) 4 mg IVP Q8H PRN PRN Reason: vomiting, or N/V if npo Last Admin: 04/20/21 19:18 Dose: 4 mg Documented by: Senna/Docusate Sodium (Sennosides-Docusate Tablet) 2 tab PO DAILY ANNIE Last Admin: 04/22/21 09:06 Dose: 2 tab Documented by: Vitals/I&O/Wt Last Vital Signs Temp 100.5 F H 02/06/22 12:30 Pulse 122 H 04/26/21 12:30 Resp 38 H 04/26/21 11:48 BP 149/82 04/26/21 12:30 Pulse Ox 94 04/26/21 12:30 04/25/21 04/26/21 04/26/21 22:59 06:59 14:59 Intake Total 692.183 / 952.916 276.484 / 1229.400 444.061 / 444.061 Output Total 1875 / 1875 0 / 1875 Balance -1182.817 / -922.084 276.484 / -645.600 444.061 / 444.061 Weight last 48 hrs Weight 153 lb 3.2 oz Weight 152 lb 5.431 oz Physical Exam Narrative: EXAM NARRATIVE: PHYSICAL EXAM: General: lying in bed, sedated and intubated. 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 SKIN: no rash LDA: # CVC: Right femoral line 04/20/2021 # HD Cath : Right internal jugular 04/20/2021 Urinary Catheter Management: Carroll: Cath Placed During This Visit: yes Reason for Continuing Indwelling Catheter: Accurate Measurement of Urinary Output in Critically Ill Patients Urinary Catheter Date of Insertion: 04/19/21 Urinary Catheter Time of Insertion: 01:00 Data : 04/26/21 05:45 04/26/21 05:45 Other Labs: Radiology Impressions Abdomen Ultrasound 04/19/21 02:25 IMPRESSION: 1. Cholelithiasis. Chest CT 04/19/21 02:25 IMPRESSION: 1. Nonspecific gallbladder distention. No calcified stones. 2. Mild retroperitoneal stranding about the pancreas, correlate with pancreatic enzymes. 3. Bilateral pulmonary infiltrates which may be seen with atypical pneumonia. Chest/Abdomen/Pelvis CT 04/22/21 07:35 IMPRESSION: 1. Proximal main pulmonary arteries are normal. A few filling defects in the left lower lobe pulmonary artery suspicious for pulmonary embolus. Images degraded by breathing artifact. 2. Endotracheal tube with tip above the tracey. Enteric tube with tip below the diaphragm in the distal stomach. 3. Air-fluid level in the stomach. Air distended transverse colon compatible with adynamic ileus. 4. Diffuse bilateral pulmonary infiltrates have improved in the lung bases but progressed in the perihilar regions and upper lobes with partial confluence and consolidation in the lung apices with air bronchograms. 5. Small amount of pancreatic edema is similar to previous. Recommend correlation for pancreatitis. 6. Enlarged kidneys bilaterally with heterogeneous enhancement. Correlation for renal insufficiency. No hydronephrosis. 7. Small amount of free fluid in the pelvis. Diffuse body wall anasarca. Message left for Paresh Reese MD at 04/22/2021 11:55 AM. KUB X-Ray 04/24/21 11:53 IMPRESSION: Nonspecific colon distention which was seen on the CT scan of 04/22/2021. Bowel gas pattern is not suggestive of ileus or obstruction. Chest X-Ray 04/25/21 07:51 IMPRESSION: Persistent bilateral airspace opacities. Gallbladder Ultrasound 04/25/21 07:53 IMPRESSION: 1. Slightly hyperechoic liver, which can be seen with fatty infiltration or hepatocellular disease. 2. Nonspecific hepatic hypoechoic lesion adjacent to the gallbladder, which may represent fat sparing. Further evaluation with contrast enhanced abdomen MRI should be considered in the adequate clinical setting. 3. Cholelithiasis without evidence of cholecystitis. 4. Right pleural effusion. Head CT 04/25/21 14:00 IMPRESSION: 1. No acute intracranial abnormality. 2. Obvd-eo-trungblh sinusitis. 3. Bilateral mastoiditis and right otitis media. Abdomen/Pelvis CT 04/25/21 14:08 IMPRESSION: 1. Bibasilar opacities may be aspiration related, ARDS or pneumonia. 2. Possible contrast nephropathy, correlate clinically. 3. Trace ascites and mild to moderate anasarca. 4. Mild residual pancreatitis. Laboratory Results WBC 16.5 10^3/uL (4.0-10.0) H 04/26/21 05:45 Corrected WBC 8.5 10^3/cmm (4.8-10.8) 04/23/21 18:20 RBC 2.78 10^6/uL (4.1-5.3) L 04/26/21 05:45 Hgb 8.5 g/dL (11.5-15.3) L 04/26/21 05:45 Hct 26.2 % (37.0-47.0) L 04/26/21 05:45 MCV 94.2 fl (81-99) D 04/26/21 05:45 MCH 30.6 pg (28.0-34.0) 04/26/21 05:45 MCHC 32.4 g/dL (30.0-36.0) 04/26/21 05:45 RDW 15.7 % (12.1-15.1) H 04/26/21 05:45 Plt Count 210 10^3/cmm (130-400) 04/26/21 05:45 MPV 12.3 fL (7.4-10.4) H 04/26/21 05:45 Neut % (Auto) 49.7 % 04/25/21 04:34 Lymph % (Auto) Not Reportable 04/26/21 05:45 [place] % (Auto) Not Reportable 04/26/21 05:45 Eos % (Auto) 1.4 % 04/25/21 04:34 Baso % (Auto) 0.7 % 04/25/21 04:34 Neut # (Auto) 5.98 10^3/uL (1.8-7.7) 04/25/21 04:34 Lymph # (Auto) Not Reportable 04/26/21 05:45 [place] # (Auto) Not Reportable 04/26/21 05:45 Eos # (Auto) 0.2 10^3/uL (0.0-0.8) 04/25/21 04:34 Baso # (Auto) 0.1 10^3/uL (0.0-0.1) 04/25/21 04:34 Nucleated RBC % (auto) 4.9 % 04/25/21 04:34 Total Counted 100 (0-100) 04/26/21 05:45 Atypical Lymphs % 0.0 % (0-5) 04/26/21 05:45 Absolute Neutrophils 10.1 10^3/cmm (1.4-6.5) H 04/26/21 05:45 Segmented Neutrophils 47 % 04/26/21 05:45 Abs Segm Neuts (Man) 7.8 10/cmm (1.6-7.1) H 04/26/21 05:45 Band Neutrophils 14.0 % 04/26/21 05:45 Abs Band Neuts (Man) 2.3 10^3/cmm (0.0-1.2) H 04/26/21 05:45 Absolute Lymphocytes 3.3 10^3/cmm (1.2-3.4) 04/26/21 05:45 Lymphocytes (Manual) 20 % 04/26/21 05:45 Monocytes (Manual) 6.0 % 04/26/21 05:45 Absolute Monocytes 1.0 10^3/cmm (0.1-0.6) H 04/26/21 05:45 Eosinophils (Manual) 0 % 04/26/21 05:45 Absolute Eosinophils 0.0 10^3/cmm (0.0-0.7) 04/26/21 05:45 Basophils (Manual) 0.0 % 04/26/21 05:45 Absolute Basophils 0.0 10^3/cmm (0.0-0.2) 04/26/21 05:45 Metamyelocytes 10.0 % 04/26/21 05:45 Myelocytes 3.0 % 04/26/21 05:45 Nucleated RBCs 1.0 /100WBC (0-1) 04/26/21 05:45 Nucleated RBCs # 0.6 /100WBC 04/25/21 04:34 Platelet Estimate Normal (Normal) 04/26/21 05:45 Hypochromasia 2+ H 04/23/21 18:20 Basophilic Stippling Trace 04/21/21 Unknown Anisocytosis Trace 04/26/21 05:45 PT 16.40 SECONDS (12.1-14.9) H 04/19/21 03:00 INR 1.28 (0.8-1.2) H 04/19/21 03:00 APTT 53.4 SECONDS (23.9-36.7) H 04/26/21 05:45 Fibrinogen 310 mg/dL (174-498) 04/19/21 03:00 Fibrin Degrad Products Pos, 10-40 ug/mL (NEG) H 04/19/21 03:00 D-Dimer 6.68 ug/mIFEU (0-0.59) H 04/21/21 03:50 Specimen Type Arterial 04/26/21 04:00 Sample Site Radial, left 04/26/21 04:00 ABG pH 7.36 (7.35-7.45) 04/26/21 04:00 ABG pCO2 22.4 mmHg (35-45) L 04/26/21 04:00 ABG pO2 102.0 mmHg (80.0-100.0) H 04/26/21 04:00 ABG HCO3 12.8 mmol/L (22-26) L 04/26/21 04:00 ABG O2 Saturation 92.5 04/25/21 12:21 ABG Base Excess -11.2 mmol/L (-2.0-2.0) L 04/26/21 04:00 Dennis Test N/a 04/26/21 04:00 A-a O2 Gradient 23.3 mmHg (5-10) H 04/25/21 12:21 Hematocrit 26.5 % (37-47) L 04/26/21 04:00 Hgb O2 Saturation 90.9 % (95-100) L 04/25/21 12:21 Carboxyhemoglobin 1.3 %THgb (0.4-20.1) 04/25/21 12:21 Methemoglobin 0.5 % (0.4-1.5) 04/25/21 12:21 Total Hemoglobin 9.3 g/dL (12-16) L 04/25/21 12:21 Sodium 138.0 mmol/L (131-143) 04/25/21 12:21 Potassium 4.0 mmol/L (3.5-5.0) 04/25/21 12:21 Glucose 81.0 mg/dL (70-115) 04/25/21 12:21 Ionized Calcium 1.1 mmol/L (1.1-1.4) 04/25/21 12:21 Respiration Rate 20.0 % 04/23/21 05:25 O2 Delivery Device Vent 04/26/21 04:00 Mechanical Rate 20.0 04/26/21 04:00 FiO2 35.0 % 04/26/21 04:00 Tidal Volume 0.35 04/26/21 04:00 PEEP 8.0 cmH20 04/26/21 04:00 Buyer Intern ID [email or web address] 04/26/21 04:00 Sodium 139 mmol/L (136-145) 04/26/21 05:45 Potassium 4.8 mmol/L (3.5-5.1) 04/26/21 05:45 Chloride 94 mmol/L (98-107) L 04/26/21 05:45 Carbon Dioxide 13 mmol/L (22-29) L 04/26/21 05:45 Anion Gap 36.8 (5-19) H 04/26/21 05:45 BUN 52 mg/dL (6-20) H 04/26/21 05:45 Creatinine 4.0 mg/dL (0.5-0.9) H 04/26/21 05:45 GFR Calculation 12.5 mL/min (90-130) L 04/26/21 05:45 Glucose 107 mg/dL (65-115) 04/26/21 05:45 POC Glucose 149 mg/dL (70-110) H 04/26/21 11:21 Estimat Average Glucose 134 04/18/21 22:48 Hemoglobin A1c 6.3 % (4.0-6.0) H 04/18/21 22:48 Calculated Osmolality 303 mOsm/kg (285-295) H 04/26/21 05:45 Lactic Acid 5.1 mmol/L (0.5-2.2) H* 04/20/21 03:20 Lactic Acid (Sepsis) 4.7 mmol/L (0.5-2.2) H* 04/20/21 06:47 Lactate 1.4 mmol/L (0.5-2.2) 04/26/21 08:34 Uric Acid 12.0 mg/dL (2.4-5.7) H 04/20/21 09:20 Calcium 7.8 mg/dL (8.5-10.5) L 04/26/21 05:45 Phosphorus 3.7 mg/dL (2.5-4.5) 04/24/21 03:59 Magnesium 2.4 mg/dL (1.7-2.3) H 04/24/21 03:59 Iron 37 ug/dL (37-145) 04/23/21 06:20 TIBC 157 mcg/dl 04/23/21 06:20 % Saturation 23.5 % (20-50) 04/23/21 06:20 Unsat Iron Binding 120 ug/dL (112-347) 04/23/21 06:20 Ferritin 481 ng/mL (15-150) H 04/22/21 00:32 Total Bilirubin 1.4 mg/dL (0.15-1.2) H 04/26/21 05:45 GGT 108 U/L (5-36) H 04/19/21 03:00 AST 47 U/L (0-32) H 04/26/21 05:45 ALT 86 U/L (0-33) H 04/26/21 05:45 Alkaline Phosphatase 599 IU/L (35-105) H 04/26/21 05:45 Lactate Dehydrogenase 725 U/L (135-214) H 04/26/21 05:45 Creatine Kinase 79 U/L (26-192) 04/19/21 03:00 Troponin T Baseline 31 ng/L (0-10) H 04/20/21 16:45 Troponin T 120 Minute 31.12 ng/L (0-10) H 04/20/21 19:44 Delta Troponin T 0.12 ABS# (0-10) 04/20/21 19:44 Troponin T Hi Sens 6Hr 27.06 ng/L (0-10) H 04/21/21 03:50 Troponin T Hi Sens 6Hr Delta -3.94 ng/L (0-12) L 04/21/21 03:50 C-Reactive Protein 100.4 mg/L (0.0-4.9) H 04/26/21 05:45 Total Protein 5.6 g/dL (6.6-8.7) L 04/26/21 05:45 Albumin 2.6 g/dL (3.5-5.2) L 04/26/21 05:45 Globulin 3.0 g/dL (1.3-4.6) 04/26/21 05:45 Triglycerides 340 mg/dL (0-150) H 04/25/21 04:34 Cholesterol 322 mg/dL (0-200) H 04/19/21 03:00 LDL Cholesterol Direct 15 mg/dL (0-100) 04/24/21 03:59 LDL Cholesterol, Calc Not Reportable 04/19/21 03:00 HDL Cholesterol 12 mg/dL (60-100) L 04/19/21 03:00 LDL/HDL Ratio Not Reportable 04/19/21 03:00 Cholesterol/HDL Ratio 26.83 mg/dL (0.0-4.40) H 04/19/21 03:00 Lipase 15 U/L (13-60) 04/25/21 04:34 25-OH Vitamin D Total 7 ng/mL (30-100) L 04/21/21 03:50 Procalcitonin 0.60 ng/mL (0-0.5) H 04/25/21 04:34 TSH 1.02 uIU/mL (0.27-4.20) 04/19/21 03:00 HCG, Qual Negative (Negative) 04/18/21 22:48 PTH Intact 274.7 pg/mL (15-65) H 04/21/21 03:50 Calcium (PTH Intact) 6.7 mg/dL (8.5-10.5) L 04/21/21 03:50 Urine Color Yellow (Yellow) 04/18/21 23:19 Urine Appearance Clear (CLEAR) 04/18/21 23:19 Urine pH 5 (5-7) 04/18/21 23:19 Ur Specific [place] 1.020 (1.005-1.030) 04/18/21 23:19 Urine Protein 3+ (Negative) H 04/18/21 23:19 Urine Glucose (UA) 1+ (Normal) H 04/18/21 23:19 Urine Ketones 1+ (Negative) H 04/18/21 23:19 Urine Blood 2+ (Negative) H 04/18/21 23:19 Urine Nitrate Negative (Negative) 04/18/21 23:19 Urine Bilirubin 1+ (Negative) H 04/18/21 23:19 Urine Urobilinogen 1 mg/dL (Negative) H 04/18/21 23:19 Ur Leukocyte Esterase Negative (Negative) 04/18/21 23:19 Urine RBC 5-10 /hpf (0-2) H 04/18/21 23:19 Urine WBC 0-4 /hpf (0-5) H 04/18/21 23:19 Ur Eosinophil Smear 0 (0-0) 04/19/21 05:35 Ur Squamous Epith Cells 10-15 /hpf (0-5) H 04/18/21 23:19 Amorphous Sediment 3+ /hpf 04/18/21 23:19 Urine Bacteria 2+ /hpf (NONE) H 04/18/21 23:19 Urine Eosinophils No eosinophils seen 04/19/21 05:35 Ur Random Creatinine 128 mg/dL (20-275) 04/19/21 05:35 Ur Random Albumin 46 % 04/19/21 05:35 U Random Total Protein 727 mg/dL (5-24) H 04/19/21 05:35 Ur Random Sodium 57 mmol/L 04/19/21 05:35 Ur Random Potassium 27 mmol/L 04/19/21 05:35 Ur Random Chloride 50 mmol/L 04/19/21 05:35 Urine Creatinine 139 mg/dL (28-217) 04/19/21 05:35 Protein/Creatinin Ratio 5680 mg/g creat (21-161) H 04/19/21 05:35 Protein/Creat Ratio 24h 5.680 (0.021-0.161) H 04/19/21 05:35 U Random k-3-Zsmblksc % 4 % 04/19/21 05:35 U Random d-8-Cqyrgqge % 12 % 04/19/21 05:35 U Random Beta Globulin 21 % 04/19/21 05:35 U Random Gamma Glob 18 % 04/19/21 05:35 U Abnormal Prot Band 1 Not Reportable 04/19/21 05:35 U Abnormal Prot Band 2 Not Reportable 04/19/21 05:35 U Abnormal Prot Band 3 Not Reportable 04/19/21 05:35 Urine PEP Interpret See note 04/19/21 05:35 Vancomycin Trough 20.4 ug/mL (10-15) H 04/20/21 03:20 Salicylates < 0.3 mg/dL (3-10) L 04/19/21 03:00 Acetaminophen < 5.0 ug/mL (10-30) L 04/19/21 03:00 Ethylene Glycol <10.0 mg/L () 04/19/21 03:00 Volat Analys Perform On Whole blood 04/19/21 03:00 Ethyl Alcohol < 10 mg/dL (0-10) 04/19/21 03:00 Urine Ethyl Alcohol Cancelled 04/19/21 05:35 Methyl Alcohol Level None detected mg/dL 04/19/21 03:00 Serum Ketones Positive (Negative) H 04/26/21 08:34 Coronavirus 229E (PCR) Not detected (NOT DETECT) 04/19/21 05:35 Hepatitis A IgM Ab Non-reactive (Nonreactive) 04/19/21 03:00 Hep Bs Antigen Non-reactive (Nonreactive) 04/20/21 03:20 Hep Bs Antibody 3.5 (11.5-1000) L 04/20/21 03:20 Hep B Core IgM Ab Non-reactive (Nonreactive) 04/19/21 03:00 Hepatitis C Antibody Non-reactive (Nonreactive) 04/20/21 03:20 HIV 1&2 Ab & HIV 1 Ag Non-reactive (Non-Reactiv) 04/19/21 03:00 HIV 1&2 Antibody Non-reactive (Non-Reactiv) 04/19/21 03:00 Influenza Type A Ag Negative (Negative) 04/19/21 05:35 Influenza Type B Ag Negative (Negative) 04/19/21 05:35 SARS-CoV-2 (PCR) Detected (NOT DETECT) A 04/19/21 05:35 SARS-CoV-2 Ag (Rapid) Negative (Negative) 04/18/21 21:49 Blood Type O Positive 04/23/21 20:40 Rho(D) Type Positive 04/23/21 20:40 Antibody Screen Negative 04/23/21 20:40 Crossmatch See Detail 04/23/21 20:40 A&P Assessment and plan (1) Acute respiratory distress syndrome (ARDS) due to 2019 novel coronavirus: Status: Acute (2) COVID: Status: Acute (3) Increased anion gap metabolic acidosis: Status: Acute (4) Acute encephalopathy: Status: Acute (5) Acute pancreatitis: Status: Acute (6) Mild mental handicap: Status: Acute (7) GODFREY (generalized anxiety disorder): Status: Acute (8) Essential hypertension: Status: Acute (9) Hypertriglyceridemia: Status: Acute (10) Leukocytosis: Status: Acute (11) Aspiration pneumonia: Status: Acute (12) Hypovolemic shock: Status: Acute Plan # Acute hypoxic respiratory failure in patient with COVID-19 pneumonia and fluid overload secondary to TONY -possible ARDS and patient with COVID-19 PCR positive/pancreatitis; subsegmental PE on CT #TONY due to hypovolemia-ischemic ATN/MAMI/Covid TONY-currently on HD #Hypovolemic shock secondary to pancreatitis-currently off pressors #Pancreatitis secondary to hypertriglyceridemia #Generalized anxiety disorder #Leukocytosis-secondary to dehydration versus possible aspiration pneumonia - with h/o vomiting -Intubated on 04/20/2021 night after an episode of vomiting while she was on BiPAP -ABG today morning 7.3 6/22// 4% on 20/35%350/8 -Saturating 95% on monitor with 30% FiO2 on ventilator -Still breathing over the vent-on Versed, fentanyl-tapering down sedation has been a challenge -We'll slowly attempt to, Versed and tapered on fentanyl and managed with propofol/Precedex and do awakening trial -Started on Seroquel 50 twice daily -Repeat CT head did not show any acute intracranial abnormality/there is mild to moderate sinusitis with bilateral mastoiditis and right otitis media -Completed remdesivir and currently on dexamethasone; on Zosyn for possible aspiration pneumonia -Continue monitoring respiratory status and saturations closely -Off pressors -CT angiogram subsegmental PE; bilateral venous Doppler negative for DVT-on heparin drip -Triglycerides trending down; Off insulin drip-currently on subcutaneous insulin-sugars well controlled -LFTs trending down including total bilirubin ultrasound: Gallstones with no gallbladder wall thickening or pericolic cystic fluid. There is a hypoechoic lesion in posterior mid abdominal ultrasound -Repeat CT abdomen pelvis 04/25/2021: Trace ascites with mild residual pancreatitis -We'll start tube feeding today --Ketonemia could be secondary to vomitings-resolved -monitor FSBS closely and adjust IV insulin accordingly -Renal to continue hemodialysis tomorrow morning prior to extubation attempts -Patient's family updated at bedside -Prognosis guarded Recommendations conveyed to hospitalist, RN, RT taking care of the patient Attestations Medical Necessity Statement*: Hypoxic respiratory failure secondary to ARDS due to COVID-19 pneumonia/pancreatitis-fluid overload due to TONY and patient with underlying Covid pneumonia and aspiration pneumonia-requiring mechanical intubation and hemodialysis Time Spent in Patient Care: Greater than 35 minutes (>than 50% of time spent in counselling and/or direct pt care on unit). Critical Care Time: The high probability of a clinically significant, sudden or life threatening deterioration of the patient's [pulmonary, renal system(s) required my full and direct attention, intervention and personal management. The critical care time is as shown. This time is in addition to time spent performing any reported procedures but includes the following: [x] Data and vital sign review and interpretation [x] Patient assessment, examination and intervention [x] Documentation [x] Medication orders and management Critical Care Time (min): 45 Coding Level of Care Code Established Pt Acute Director Banking for Chg Fwd Patient Type Established History Comprehensive Exam Comprehensive Medical Decision Making High Complexity Diagnoses Acute respiratory distress syndrome (ARDS) due to 2019 novel coronavirus U07.1; J80 COVID U07.1 Increased anion gap metabolic acidosis E87.2 Acute encephalopathy G93.40 Acute pancreatitis K85.90 Mild mental handicap F70 GODFREY (generalized anxiety disorder) F41.1 Essential hypertension I10 Hypertriglyceridemia E78.1 Leukocytosis D72.829 Aspiration pneumonia J69.0 Hypovolemic shock R57.1 Time Spent (min) 45
--- NOTE | 2021-04-26 14:03 | PC.NURSE ---
small amt of emesis noted after am meds given per og tube and clamped when suction ... tube back to suction and verified not to start tube feeding until am ... and monitor
--- NOTE | 2021-04-26 14:23 | P.PN_ITS ---
Subjective Subjective: Interval history: Patient was seen and examined this morning, she had 1 episode of emesis this morning As ICU nurse to put NG to low intermittent suction Hold off on tube feeds for today as well If by tomorrow she is not experiencing any emesis can try NG feeding otherwise she will need TPN Leukocytosis worsening, febrile episodes Currently on heparin drip Today plan is to wean off Versed We are avoiding Precedex because of sinus pauses noted Twelve-lead EKG done to monitor QTC, Seroquel added Negative fluid balance Vitals/I&O/Wt Last Vital Signs Temp 100.5 F H 04/26/21 12:30 Pulse 122 H 04/26/21 12:30 Resp 38 H 04/26/21 11:48 BP 149/82 04/26/21 12:30 Pulse Ox 94 04/26/21 12:30 04/25/21 04/26/21 04/26/21 22:59 06:59 14:59 Intake Total 692.183 / 952.916 276.484 / 1229.400 444.061 / 444.061 Output Total 1875 / 1875 0 / 1875 Balance -1182.817 / -922.084 276.484 / -645.600 444.061 / 444.061 Weight last 48 hrs Weight 69.49 kg Weight 69.1 kg Physical Exam Narrative: EXAM NARRATIVE: Patient intubated and sedated Volume overloaded Abdomen is less firm Crackles with rhonchi bilateral assisted breath sounds Fluid overloaded Dark-colored urine in the bag Breathing over the vent Neuro exam limited Right femoral line 04/20 Hemodialysis catheter right IJ 04/20 Urinary Catheter Management: Carroll: Cath Placed During This Visit: yes Reason for Continuing Indwelling Catheter: Accurate Measurement of Urinary Output in Critically Ill Patients Urinary Catheter Date of Insertion: 04/19/21 Urinary Catheter Time of Insertion: 01:00 Data : 04/26/21 05:45 04/26/21 05:45 A&P Assessment and plan (1) Abnormal transaminases: Status: Acute (2) Hypovolemic shock: Status: Acute (3) Aspiration pneumonia: Status: Acute (4) Acute respiratory distress syndrome (ARDS) due to 2019 novel coronavirus: Status: Acute (5) ATN (acute tubular necrosis): Status: Acute (6) COVID: Status: Acute (7) Increased anion gap metabolic acidosis: Status: Acute (8) Acute encephalopathy: Status: Acute (9) Acute pancreatitis: Status: Acute (10) Hypertriglyceridemia: Status: Acute (11) GODFREY (generalized anxiety disorder): Status: Acute (12) Pulmonary embolism: Status: Acute Plan Mechanical ventilation for respiratory failure related to COVID-19 ARDS Related to COVID-19 and pancreatitis We are not able to wean her off because of her tachypnea Seroquel added, plan is to wean off Versed first and then fentanyl, avoiding Precedex because of sinus pauses noted on telemetry yesterday, twelve-lead EKG showing sinus tachycardia no QTC prolongation She was intubated on 04/20 after episode of vomiting while on BiPAP Right femoral central line and right IJ dialysis catheter 04/20 She had a bowel movement after getting lactulose which resolved her ileus /Vomiting today, NG back to low intermittent suction and if there are no content we will clamp in the evening we will reevaluate if we can start tube feeds tomorrow if not then she will need TPN Her anxiety and tachypnea is a reason for her failing weaning trial ATN: Requiring dialysis appreciate nephro recommendations Contrast-induced nephropathy versus severe dehydration prerenal Oliguric Resistant acidosis with hypervolemia Hypertriglyceridemia induced pancreatitis: Triglyceride lowered with use of insulin Avoiding propofol Acute PE currently on heparin drip Hemoglobin slightly trickled down no active GI bleed noted, Febrile episodes noted related to aspiration pneumonia Might benefit from bronchoalveolar lavage No signs of necrotic pancreas Pancreatitis resolving, lipase trending down CT scan repeated twice after the first [address] scans were done during this hospitalization Escalated antibiotics Zosyn to Primaxin Full code Feedings on hold, will need TPN versus tube feeding tomorrow DVT prophylaxis covered with heparin Guarded prognosis Mother at the bedside updated Attestations Medical Necessity Statement*: Continue ICU management Time Spent in Patient Care: 20mins Coding Level of Care Code Acute Insurance Coder for Chg Fwd Diagnoses Abnormal transaminases R74.8 Hypovolemic shock R57.1 Aspiration pneumonia J69.0 Acute respiratory distress syndrome (ARDS) due to 2019 novel coronavirus U07.1; J80 ATN (acute tubular necrosis) N17.0 COVID U07.1 Increased anion gap metabolic acidosis E87.2 Acute encephalopathy G93.40 Acute pancreatitis K85.90 Hypertriglyceridemia E78.1 GODFREY (generalized anxiety disorder) F41.1 Pulmonary embolism I26.99
--- NOTE | 2021-04-26 14:33 | XRR_ITS ---
PROCEDURE INFORMATION: Exam: XR Abdomen Exam date and time: 04/26/2021 2:33 PM Age: 40 years old Clinical indication: Pain; Other: Vomiting TECHNIQUE: Imaging protocol: XR of the abdomen. Views: Frontal supine view of the abdomen. 1 View. COMPARISON: CT abdomen pelvis con [id number] 04/25/2021 6:22 PM FINDINGS: Gastrointestinal tract: Normal. No bowel dilation. Bones/joints: Unremarkable. XR/XR KUB portable [id number] IMPRESSION: No acute findings.
[2021-04-26 15:11] LABS: Vit D 1,25 (Oh)2, Total <8 pg/mL (18-72); Vit D2 1,25 (Oh)2 <8 pg/mL; Vit D3 1,25 (Oh)2 <8 pg/mL
--- NOTE | 2021-04-26 16:09 | PC.SOCIAL ---
IMM Not Updated Pg. 2 of IMM Not updated, patient remains intubated and not expected to discharge within 48hours.
[2021-04-26 16:36] LABS: Partial Thromboplastin Time 54.2 SECONDS (23.9-36.7)
[2021-04-26 16:42] LABS: Glucose Point of Care 189 mg/dL (70-110)
[2021-04-26 16:49] LABS: Anion Gap 34.8 (5-19); Blood Urea Nitrogen 59 mg/dL (6-20); Calcium 7.7 mg/dL (8.5-10.5); Carbon Dioxide 16 mmol/L (22-29); Chloride 91 mmol/L (98-107); Glomerular Filtration Rate 11.5 mL/min (90-130); Glucose 185 mg/dL (65-115); Osmolality Calculated 305 mOsm/kg (285-295); Potassium 4.8 mmol/L (3.5-5.1); Sodium 137 mmol/L (136-145)
[2021-04-26] MEDS: insulin lispro 100 unit/1 mL SUBCUT ×2 (17:22→20:17)
--- NOTE | 2021-04-26 18:15 | NUR.SHIFT ---
Shift Note Frequent safety and comfort rounds continue. Orders and/or nursing care completed as indicated. Patient monitored for response to intervention and treatment(s). Education provided includes[]. family aware of status and and overal plan Will continue to monitor.
[2021-04-26 19:51] LABS: Glucose Point of Care 156 mg/dL (70-110)
[2021-04-26 22:31] LABS: Partial Thromboplastin Time 50.2 SECONDS (23.9-36.7)
[2021-04-27] VITALS (57 sets, daily range): BP systolic 121–169; BP diastolic 74–107; PULSE 89–130; RESP 18–36; TEMP 36.9–37.1; O2SAT 91–99
[2021-04-27] MEDS: famotidine 20 mg/2 mL INJ IVP ×2 (01:36→14:41)
[2021-04-27] MEDS: ipratropium-albuterol 3 mL Neb INHALATION ×6 (03:01→23:07)
[2021-04-27 04:15] LABS: ABG PCO2 33.8 mmHg (35-45); ABG PH Result 7.51 (7.35-7.45); Arterial Blood Gas Hematocrit 19.6 % (37-47); Base Excess ABG 3.6 mmol/L (-2.0-2.0); Blood Gas Allen Test Pos; Blood Gas Sample Site Radial, right; Blood Gas Sample Type Arterial; Blood Gas Tidal Volume 0.35; HCO3 ABG 26.9 mmol/L (22-26); Oxygen Device VENT
[2021-04-27] MEDS: heparin drip 25,000 UNIT/500 ML PREMIX 24 UNIT IV (04:59)
[2021-04-27 05:29] LABS: Basophils # 0.1 10^3/uL (0.0-0.1); Basophils % 0.5 %; Eosinophils % 0.1 %; Hematocrit 22.9 % (37.0-47.0); Hemoglobin 7.7 g/dL (11.5-15.3); Lymphocytes # 1.6 10^3/uL (0.8-4.8); Lymphocytes % 11.2 %; Mean Corpuscular HGB Conc 33.6 g/dL (30.0-36.0); Mean Corpuscular Hemoglobin 30.7 pg (28.0-34.0); Mean Corpuscular Volume 91.2 fl (81-99); Mean Platelet Volume 12.7 fL (7.4-10.4); Monocytes # 0.8 10^3/uL (0.2-0.9); Monocytes % 5.1 %; Neutrophils # 9.86 10^3/uL (1.8-7.7); Neutrophils % 67.5 %; Nucleated Red Blood Cells # 0.4 /100WBC; Nucleated Red Blood Cells % 2.9 %; Platelet Count 149 10^3/cmm (130-400); Red Blood Count 2.51 10^6/uL (4.1-5.3); Red Cell Distribution Width 15.3 % (12.1-15.1); White Blood Count 14.6 10^3/uL (4.0-10.0)
[2021-04-27 05:40] LABS: Partial Thromboplastin Time 52.4 SECONDS (23.9-36.7)
[2021-04-27 06:00] LABS: Alanine Aminotransferase 51 U/L (0-33); Albumin Level 2.3 g/dL (3.5-5.2); Alkaline Phosphatase 494 IU/L (35-105); Anion Gap 28.6 (5-19); Aspartate Amino Transferase 25 U/L (0-32); Blood Urea Nitrogen 62 mg/dL (6-20); Calcium 8.1 mg/dL (8.5-10.5); Carbon Dioxide 22 mmol/L (22-29); Chloride 92 mmol/L (98-107); Glomerular Filtration Rate 9.9 mL/min (90-130); Glucose 171 mg/dL (65-115); Osmolality Calculated 308 mOsm/kg (285-295); Potassium 4.6 mmol/L (3.5-5.1); Sodium 138 mmol/L (136-145); Total Protein 5.3 g/dL (6.6-8.7); Triglycerides 366 mg/dL (0-150)
[2021-04-27 06:10] LABS: Slide Review Slide Review Perform
[2021-04-27 07:40] LABS: Glucose Point of Care 179 mg/dL (70-110)
[2021-04-27] MEDS: insulin lispro 100 unit/1 mL SUBCUT ×3 (08:11→21:23)
[2021-04-27] MEDS: sennosides-docusate Tablet 2 TAB PO (08:11)
[2021-04-27] MEDS: calcium carbonate 500 mg Chew Tablet 1000 MG PO ×3 (08:11→21:21)
[2021-04-27] MEDS: quetiapine 25 mg Tablet 50 MG PO ×2 (08:11→17:26)
[2021-04-27] MEDS: fenofibrate 145 mg Tablet PO (08:11)
[2021-04-27] MEDS: ferric gluconate 125 MG in sodium chloride 0.9% (100 ml) 100 ML 100 MG IV (08:58)
[2021-04-27] MEDS: sodium bicarbonate 150 MEQ in dextrose 5% 1,000 ML 100 MEQ IV (08:58)
--- NOTE | 2021-04-27 08:59 | PC.NUTR ---
TF consult received today. If TF medically appropriate, recommend consideration of Glucerna 1.2 starting @ 10 mls/hr and advancing Q8H as tolerated to goal rate of 40 mls/hr, with FWF 100 mls Q4H or per MD discretion. If TPN is considered, recommend Clinimix 5/20 begun @ 10 ml/hr and increase by 10 ml/hr Q8H until infusing @ 42 ml/hr, with addition of standard electrolytes and Multivitamins 10 mls/day. Details in RD assessment.
--- NOTE | 2021-04-27 10:19 | PM.PN ---
Subjective Subjective: Interval history: Precious remains critically sick in the intensive care unit. Intubated and mechanically ventilated. I did give bicarb infusion overnight given the quite profound metabolic acidosis that she had yesterday. This looks to be improved. Lung sounds do sound coarse. Currently on hemodialysis. Medications: Reviewed: Yes Medication Review Details: Current Medications Acetaminophen (Acetaminophen 325 Mg Tablet) 650 mg PO Q6H PRN PRN Reason: Mild/Mod Pain Or Temp >/= 101 Albuterol/Ipratropium (Ipratropium-Albuterol 3 Ml Neb) 3 ml INHALATION Q6H.RESPIRATORY ANNIE Last Admin: 04/23/21 03:41 Dose: 3 ml Documented by: Calcium Carbonate (Calcium Carbonate 500 Mg Chew Tablet) 1,000 mg PO TID [facility] Last Admin: 04/22/21 21:31 Dose: 1,000 mg Documented by: Dexamethasone (Dexamethasone 10 Mg/Ml Inj) 6 mg IVP Q24H ANNIE Last Admin: 04/22/21 13:38 Dose: 6 mg Documented by: Dextrose (Dextrose 50% Syringe 50 Ml) 25 ml IVP ONCE PRN; Protocol PRN Reason: hypoglycemia protocol Last Admin: 04/20/21 00:25 Dose: 25 ml Documented by: Dextrose (Dextrose 50% Syringe 50 Ml) 50 ml IVP PRN PRN; Protocol PRN Reason: hypoglycemia protocol Last Admin: 04/19/21 20:35 Dose: 50 ml Documented by: Dextrose (Dextrose 50% Syringe 50 Ml) 25 ml IVP ONCE PRN; Protocol PRN Reason: hypoglycemia protocol Dextrose (Dextrose 50% Syringe 50 Ml) 50 ml IVP PRN PRN; Protocol PRN Reason: hypoglycemia protocol Ergocalciferol (Ergocalciferol (Vitamin D2) 50,000 Unit Capsule) 50,000 unit PO Q7D [facility] Last Admin: 04/21/21 12:04 Dose: 50,000 unit Documented by: Famotidine (Famotidine 20 Mg/2 Ml Inj) 20 mg IVP Q12H ANNIE Last Admin: 04/23/21 01:38 Dose: 20 mg Documented by: Fenofibrate (Fenofibrate 145 Mg Tablet) 145 mg PO DAILY [facility] Last Admin: 04/22/21 09:06 Dose: 145 mg Documented by: Glucagon (Glucagon 1 Mg/Ml Inj 1 Ml) 1 mg IM ONCE PRN; Protocol PRN Reason: Adult Acute Hypoglycemia Prot Glucagon (Glucagon 1 Mg/Ml Inj 1 Ml) 1 mg IM ONCE PRN; Protocol PRN Reason: Adult Acute Hypoglycemia Prot. Heparin Sodium (Porcine) (Heparin 5,000 Unit/Ml Inj 1 Ml) 5,000 unit SUBCUT Q12H ANNIE Last Admin: 04/21/21 04:54 Dose: Not Given Documented by: Dextrose (D5w) 500 mls @ 100 mls/hr IV ONCE PRN; Protocol PRN Reason: Adult Acute Hypoglycemia Prot Last Infusion: 04/20/21 18:12 Dose: Infused Documented by: Insulin Human Regular 250 unit (/ Sodium Chloride) 252.5 mls @ 0 mls/hr IV .Q0M ANNIE; Protocol Last Titration: 04/22/21 21:29 Dose: 0 unit/hr, 0 mls/hr Documented by: Piperacillin Sod/Tazobactam (Sod 3.375 gm/ Sodium Chloride) 50 mls @ 12.5 mls/hr IV Q12H [facility]; Protocol Last Infusion: 04/23/21 05:37 Dose: Infused Documented by: Dextrose/Sodium Chloride (Dextrose 5%-Sod Chloride 0.45%) 1,000 mls @ 200 mls/hr IV .Q5H [facility] Last Admin: 04/23/21 03:14 Dose: Not Given Documented by: Norepinephrine Bitartrate 4 mg (/ Dextrose) 254 mls @ 0 mls/hr IV .Q0M ANNIE; Protocol Last Titration: 04/21/21 22:00 Dose: Infused Documented by: Remdesivir 100 mg/ Sodium (Chloride) 100 mls @ 100 mls/hr IV Q24H [facility] Stop: 04/24/21 06:59 Last Admin: 04/23/21 05:05 Dose: 100 mls/hr Documented by: Norepinephrine Bitartrate 4 mg (/ Dextrose) 254 mls @ 0 mls/hr IV .Q0M ANNIE; Protocol Last Titration: 04/22/21 05:16 Dose: 0 mcg/min, 0 mls/hr Documented by: Heparin Sodium/Sodium Chloride (Heparin Drip) 25,000 unit in 500 mls @ 0 mls/hr IV .Q0M ANNIE; Protocol Last Admin: 04/23/21 04:22 Dose: 20 unit/kg/hr, 24.39 mls/hr Documented by: dexmedeTOMIDine 0.9 % NaCL (Precedex) 400 mcg in 100 mls @ 0 mls/hr IV .Q0M ANNIE; Protocol Last Titration: 04/21/21 01:15 Dose: 0 mcg/kg/hr, 0 mls/hr Documented by: Albumin Human (Albumin) 12.5 gm in 50 mls @ 60 mls/hr IV PRN PRN PRN Reason: Hypotension and/or symptomatic Propofol (Diprivan) 1,000 mg in 100 mls @ 0 mls/hr IV .Q0M ANNIE; Protocol Last Titration: 04/23/21 04:45 Dose: 20 mcg/kg/min, 7.32 mls/hr Documented by: Fentanyl 2,500 mcg/ Sodium (Chloride) 250 mls @ 0 mls/hr IV .Q0M ANNIE; Protocol Last Admin: 04/23/21 03:52 Dose: 50 mcg/hr, 5 mls/hr Documented by: Dextrose (D5w) 500 mls @ 100 mls/hr IV ONCE PRN; Protocol PRN Reason: Adult Acute Hypoglycemia Prot Insulin Human Lispro (Insulin Lispro 100 Unit/1 Ml) 0 unit SUBCUT WM&BEDTIME ANNIE; Protocol Lactulose (Lactulose Oral Liq 20 Gm/30 Ml Udc) 10 gm PO DAILY PRN PRN Reason: CONSTIPATION Lorazepam (Lorazepam 2 Mg/Ml Inj 1 Ml) 2 mg IVP Q4H PRN PRN Reason: ANXIETY Last Admin: 04/21/21 00:01 Dose: 2 mg Documented by: Naloxone HCl (Naloxone 0.4 Mg/Ml Sdv) 0.1 mg IVP Q2M PRN PRN Reason: OPIATERV Ondansetron HCl (Ondansetron 2 Mg/Ml Sdv 2 Ml) 4 mg IVP Q8H PRN PRN Reason: vomiting, or N/V if npo Last Admin: 04/20/21 19:18 Dose: 4 mg Documented by: Senna/Docusate Sodium (Sennosides-Docusate Tablet) 2 tab PO DAILY ANNIE Last Admin: 04/22/21 09:06 Dose: 2 tab Documented by: Vitals/I&O/Wt Last Vital Signs Temp 98.6 F 04/27/21 08:00 Pulse 110 H 04/27/21 09:00 Resp 22 H 04/27/21 08:57 BP 136/85 04/27/21 09:00 Pulse Ox 93 04/27/21 09:00 04/26/21 04/27/21 04/27/21 22:59 06:59 14:59 Intake Total 1818.250 / 2262.311 415.067 / 2677.378 1473.834 / 1473.834 Output Total 0 / 0 50 / 50 Balance 1818.250 / 2262.311 365.067 / 2627.378 1473.834 / 1473.834 Weight last 48 hrs Weight 71.214 kg Weight 69.49 kg Physical Exam Narrative: EXAM NARRATIVE: Constitutional: Intubated and vented HEENT: Wet mucosa, no jvp, non icteric Lungs: Bilaterally clear without discernible wheeze or rales in all lung zones CVS: S1 S2, no murmurs Abdo: Soft, BS ok Ext 4: Minimal edema, peripheral perfusion with no cyanosis Neurological: Grossly non-focal Urinary Catheter Management: Carroll: Cath Placed During This Visit: yes Reason for Continuing Indwelling Catheter: Accurate Measurement of Urinary Output in Critically Ill Patients Urinary Catheter Date of Insertion: 04/19/21 Urinary Catheter Time of Insertion: 01:00 Data : 04/27/21 04:25 04/27/21 04:25 A&P Assessment and plan (1) ATN (acute tubular necrosis): 1. Acute kidney injury Remains oligoanuric, likely secondary to acute tubular injury Seen on dialysis today, will plan to eval her in the am for dialysis also Strict I's and O's Close monitoring for recovery Dose medication for GFR less than 15 on dialysis 2. Vent dependent respiratory failure Management per the ICU team, agitated when brought down off sedation Hopefully extubation today 3. Pancreatitis Secondary to hypertriglyceridemia, triglyceride levels now trending down, below 500 Lipase ok. 4. Chemistry more balanced today and dialysis ongoing will also help to correct Mother at bedside, with whom I discussed care and answered all of her questions Thank you for consultation, it is a pleasure to follow these cases with you Exam and interview performed with aid of bedside RN using telemedicine Time spent 20 min inc > 50% of time in face to face counseling Pollo Seo MD [facility] [phone] Status: Acute Attestations Medical Necessity Statement*: eval for renal failure Coding Level of Care Code Acute Oven Worker for Chg Fwd Diagnoses ATN (acute tubular necrosis) N17.0
[2021-04-27] MEDS: heparin, porcine 1,000 unit/mL INJ 10 mL HE (10:22)
--- NOTE | 2021-04-27 10:27 | PC.CHAP ---
Pastoral Care Encounter/Spiritual Assessment Type of Contact [] Declined aircraft cleaning supervisor visit [] Patient/Family/Request visit [] Outpatient visit [] Follow-up visit [] Physician referral [] Code/Alert [x] Routine visit [] Staff referral [] Actively dying [] Patient sleeping [x] Family support [] [] Out of room [] Palliative care [] [] Receiving care in room [] Pre-surgical visit [] Trauma [] Long length of stay [x] ICU visit [x] Other: vent Relational/Emotional Strength [] Patient feels connected with others/family/visitors/staff [] Distress [] Loneliness/isolation [] Abandonment Spirituality of Patient [] Person of Emelina [] Attends Sikhism of their Emelina [] Believes in Prayer [] Reads Bible or Evangelical materials [] There are Spiritual issues to be addressed Newspaper Editor Interventions [x] Prayer [] Active listening [] Non-anxious presence [] Spiritual/emotional support [] Crisis/trauma care [] Spiritual counseling [] Bereavement support [] Provided bereavement packet [] Provided Bible/devotional materials [] Provided toy/stuffed animal, coloring book to patient or family member [] Provided Communion [] Anointing/[place] [] Salvation [x] Completed spiritual assessment [] Other: Impact on Illness or Injury [] Angry [] Fearful [] Anxious [] Often cries [] Exhaustion [] Unable to work [] Unable to attend jew [] Unable to walk/stand [] Unable to read [] Unable to drive [] Unable to eat/drink [] Unable to sleep [] Unable to be with family [] Patient intubated [] Other: Summary Time spent with patient
[2021-04-27] MEDS: dexamethasone 10 mg/mL INJ 6 MG IVP (10:57)
[2021-04-27 11:12] LABS: Partial Thromboplastin Time 112.1 SECONDS (23.9-36.7)
[2021-04-27 11:49] LABS: Glucose Point of Care 104 mg/dL (70-110)
--- NOTE | 2021-04-27 14:45 | PM.PN ---
Subjective Subjective: Interval history: -Patient seen at bedside today -Currently still on Versed 2, fentanyl, Precedex, propofol-plan is to taper down sedation and wake her up -Requiring 35% FiO2 on ventilator -Patient received bicarb infusion overnight for profound metabolic acidosis and currently she is receiving hemodialysis -Other labs and imaging reviewed Medications: Reviewed: Yes Medication Review Details: Current Medications Acetaminophen (Acetaminophen 325 Mg Tablet) 650 mg PO Q6H PRN PRN Reason: Mild/Mod Pain Or Temp >/= 101 Albuterol/Ipratropium (Ipratropium-Albuterol 3 Ml Neb) 3 ml INHALATION Q6H.RESPIRATORY ANNIE Last Admin: 04/23/21 03:41 Dose: 3 ml Documented by: Calcium Carbonate (Calcium Carbonate 500 Mg Chew Tablet) 1,000 mg PO TID [facility] Last Admin: 04/22/21 21:31 Dose: 1,000 mg Documented by: Dexamethasone (Dexamethasone 10 Mg/Ml Inj) 6 mg IVP Q24H [facility] Last Admin: 04/22/21 13:38 Dose: 6 mg Documented by: Dextrose (Dextrose 50% Syringe 50 Ml) 25 ml IVP ONCE PRN; Protocol PRN Reason: hypoglycemia protocol Last Admin: 04/20/21 00:25 Dose: 25 ml Documented by: Dextrose (Dextrose 50% Syringe 50 Ml) 50 ml IVP PRN PRN; Protocol PRN Reason: hypoglycemia protocol Last Admin: 04/19/21 20:35 Dose: 50 ml Documented by: Dextrose (Dextrose 50% Syringe 50 Ml) 25 ml IVP ONCE PRN; Protocol PRN Reason: hypoglycemia protocol Dextrose (Dextrose 50% Syringe 50 Ml) 50 ml IVP PRN PRN; Protocol PRN Reason: hypoglycemia protocol Ergocalciferol (Ergocalciferol (Vitamin D2) 50,000 Unit Capsule) 50,000 unit PO Q7D [facility] Last Admin: 04/21/21 12:04 Dose: 50,000 unit Documented by: Famotidine (Famotidine 20 Mg/2 Ml Inj) 20 mg IVP Q12H ANNIE Last Admin: 04/23/21 01:38 Dose: 20 mg Documented by: Fenofibrate (Fenofibrate 145 Mg Tablet) 145 mg PO DAILY [facility] Last Admin: 04/22/21 09:06 Dose: 145 mg Documented by: Glucagon (Glucagon 1 Mg/Ml Inj 1 Ml) 1 mg IM ONCE PRN; Protocol PRN Reason: Adult Acute Hypoglycemia Prot Glucagon (Glucagon 1 Mg/Ml Inj 1 Ml) 1 mg IM ONCE PRN; Protocol PRN Reason: Adult Acute Hypoglycemia Prot. Heparin Sodium (Porcine) (Heparin 5,000 Unit/Ml Inj 1 Ml) 5,000 unit SUBCUT Q12H ANNIE Last Admin: 04/21/21 04:54 Dose: Not Given Documented by: Dextrose (D5w) 500 mls @ 100 mls/hr IV ONCE PRN; Protocol PRN Reason: Adult Acute Hypoglycemia Prot Last Infusion: 04/20/21 18:12 Dose: Infused Documented by: Insulin Human Regular 250 unit (/ Sodium Chloride) 252.5 mls @ 0 mls/hr IV .Q0M ANNIE; Protocol Last Titration: 04/22/21 21:29 Dose: 0 unit/hr, 0 mls/hr Documented by: Piperacillin Sod/Tazobactam (Sod 3.375 gm/ Sodium Chloride) 50 mls @ 12.5 mls/hr IV Q12H [facility]; Protocol Last Infusion: 04/23/21 05:37 Dose: Infused Documented by: Dextrose/Sodium Chloride (Dextrose 5%-Sod Chloride 0.45%) 1,000 mls @ 200 mls/hr IV .Q5H [facility] Last Admin: 04/23/21 03:14 Dose: Not Given Documented by: Norepinephrine Bitartrate 4 mg (/ Dextrose) 254 mls @ 0 mls/hr IV .Q0M ANNIE; Protocol Last Titration: 04/21/21 22:00 Dose: Infused Documented by: Remdesivir 100 mg/ Sodium (Chloride) 100 mls @ 100 mls/hr IV Q24H [facility] Stop: 04/24/21 06:59 Last Admin: 04/23/21 05:05 Dose: 100 mls/hr Documented by: Norepinephrine Bitartrate 4 mg (/ Dextrose) 254 mls @ 0 mls/hr IV .Q0M [facility]; Protocol Last Titration: 04/22/21 05:16 Dose: 0 mcg/min, 0 mls/hr Documented by: Heparin Sodium/Sodium Chloride (Heparin Drip) 25,000 unit in 500 mls @ 0 mls/hr IV .Q0M ANNIE; Protocol Last Admin: 04/23/21 04:22 Dose: 20 unit/kg/hr, 24.39 mls/hr Documented by: dexmedeTOMIDine 0.9 % NaCL (Precedex) 400 mcg in 100 mls @ 0 mls/hr IV .Q0M ANNIE; Protocol Last Titration: 04/21/21 01:15 Dose: 0 mcg/kg/hr, 0 mls/hr Documented by: Albumin Human (Albumin) 12.5 gm in 50 mls @ 60 mls/hr IV PRN PRN PRN Reason: Hypotension and/or symptomatic Propofol (Diprivan) 1,000 mg in 100 mls @ 0 mls/hr IV .Q0M ANNIE; Protocol Last Titration: 04/23/21 04:45 Dose: 20 mcg/kg/min, 7.32 mls/hr Documented by: Fentanyl 2,500 mcg/ Sodium (Chloride) 250 mls @ 0 mls/hr IV .Q0M ANNIE; Protocol Last Admin: 04/23/21 03:52 Dose: 50 mcg/hr, 5 mls/hr Documented by: Dextrose (D5w) 500 mls @ 100 mls/hr IV ONCE PRN; Protocol PRN Reason: Adult Acute Hypoglycemia Prot Insulin Human Lispro (Insulin Lispro 100 Unit/1 Ml) 0 unit SUBCUT WM&BEDTIME ANNIE; Protocol Lactulose (Lactulose Oral Liq 20 Gm/30 Ml Udc) 10 gm PO DAILY PRN PRN Reason: CONSTIPATION Lorazepam (Lorazepam 2 Mg/Ml Inj 1 Ml) 2 mg IVP Q4H PRN PRN Reason: ANXIETY Last Admin: 04/21/21 00:01 Dose: 2 mg Documented by: Naloxone HCl (Naloxone 0.4 Mg/Ml Sdv) 0.1 mg IVP Q2M PRN PRN Reason: OPIATERV Ondansetron HCl (Ondansetron 2 Mg/Ml Sdv 2 Ml) 4 mg IVP Q8H PRN PRN Reason: vomiting, or N/V if npo Last Admin: 04/20/21 19:18 Dose: 4 mg Documented by: Senna/Docusate Sodium (Sennosides-Docusate Tablet) 2 tab PO DAILY ANNIE Last Admin: 04/22/21 09:06 Dose: 2 tab Documented by: Vitals/I&O/Wt Last Vital Signs Temp 98.4 F 04/27/21 11:01 Pulse 97 04/27/21 13:40 Resp 27 H 04/27/21 13:31 BP 129/79 04/27/21 12:01 Pulse Ox 95 04/27/21 13:31 04/26/21 04/27/21 04/27/21 22:59 06:59 14:59 Intake Total 1818.250 / 2262.311 415.067 / 2677.378 1683.884 / 1683.884 Output Total 0 / 0 50 / 50 3000 / 3000 Balance 1818.250 / 2262.311 365.067 / 2627.378 -1316.116 / -1316.116 Weight last 48 hrs Weight 157 lb Weight 153 lb 3.2 oz Physical Exam Narrative: EXAM NARRATIVE: PHYSICAL EXAM: General: lying in bed, sedated and intubated. HEENT:NCAT, PERRLA, EOMI Neck: Supple Lungs: Still has bilateral diffuse crackles Heart: s1/s2, RRR Abd: soft, NT, ND, BS + Normoactive Extremities: No edema [employer]: sedated and limited [employer] exam possible. SKIN: no rash LDA: # CVC: Right femoral line 04/20/2021 # HD Cath : Right internal jugular 04/20/2021 Urinary Catheter Management: Carroll: Cath Placed During This Visit: yes Reason for Continuing Indwelling Catheter: Accurate Measurement of Urinary Output in Critically Ill Patients Urinary Catheter Date of Insertion: 04/19/21 Urinary Catheter Time of Insertion: 01:00 Data : 04/27/21 04:25 04/27/21 04:25 Other Labs: Radiology Impressions Abdomen Ultrasound 04/19/21 02:25 IMPRESSION: 1. Cholelithiasis. Chest CT 04/19/21 02:25 IMPRESSION: 1. Nonspecific gallbladder distention. No calcified stones. 2. Mild retroperitoneal stranding about the pancreas, correlate with pancreatic enzymes. 3. Bilateral pulmonary infiltrates which may be seen with atypical pneumonia. Chest/Abdomen/Pelvis CT 04/22/21 07:35 IMPRESSION: 1. Proximal main pulmonary arteries are normal. A few filling defects in the left lower lobe pulmonary artery suspicious for pulmonary embolus. Images degraded by breathing artifact. 2. Endotracheal tube with tip above the tracey. Enteric tube with tip below the diaphragm in the distal stomach. 3. Air-fluid level in the stomach. Air distended transverse colon compatible with adynamic ileus. 4. Diffuse bilateral pulmonary infiltrates have improved in the lung bases but progressed in the perihilar regions and upper lobes with partial confluence and consolidation in the lung apices with air bronchograms. 5. Small amount of pancreatic edema is similar to previous. Recommend correlation for pancreatitis. 6. Enlarged kidneys bilaterally with heterogeneous enhancement. Correlation for renal insufficiency. No hydronephrosis. 7. Small amount of free fluid in the pelvis. Diffuse body wall anasarca. Message left for Paresh Reese MD at 04/22/2021 11:55 AM. Chest X-Ray 04/25/21 07:51 IMPRESSION: Persistent bilateral airspace opacities. Gallbladder Ultrasound 04/25/21 07:53 IMPRESSION: 1. Slightly hyperechoic liver, which can be seen with fatty infiltration or hepatocellular disease. 2. Nonspecific hepatic hypoechoic lesion adjacent to the gallbladder, which may represent fat sparing. Further evaluation with contrast enhanced abdomen MRI should be considered in the adequate clinical setting. 3. Cholelithiasis without evidence of cholecystitis. 4. Right pleural effusion. Head CT 04/25/21 14:00 IMPRESSION: 1. No acute intracranial abnormality. 2. [id number] sinusitis. 3. Bilateral mastoiditis and right otitis media. Abdomen/Pelvis CT 04/25/21 14:08 IMPRESSION: 1. Bibasilar opacities may be aspiration related, ARDS or pneumonia. 2. Possible contrast nephropathy, correlate clinically. 3. Trace ascites and mild to moderate anasarca. 4. Mild residual pancreatitis. KUB X-Ray 04/26/21 14:33 IMPRESSION: No acute findings. Laboratory Results WBC 14.6 10^3/uL (4.0-10.0) H 04/27/21 04:25 Corrected WBC 8.5 10^3/cmm (4.8-10.8) 04/23/21 18:20 RBC 2.51 10^6/uL (4.1-5.3) L 04/27/21 04:25 Hgb 7.7 g/dL (11.5-15.3) L 04/27/21 04:25 Hct 22.9 % (37.0-47.0) L 04/27/21 04:25 MCV 91.2 fl (81-99) 04/27/21 04:25 MCH 30.7 pg (28.0-34.0) 04/27/21 04:25 MCHC 33.6 g/dL (30.0-36.0) 04/27/21 04:25 RDW 15.3 % (12.1-15.1) H 04/27/21 04:25 Plt Count 149 10^3/cmm (130-400) 04/27/21 04:25 MPV 12.7 fL (7.4-10.4) H 04/27/21 04:25 Neut % (Auto) 67.5 % 04/27/21 04:25 Lymph % (Auto) 11.2 % 04/27/21 04:25 [place] % (Auto) 5.1 % 04/27/21 04:25 Eos % (Auto) 0.1 % 04/27/21 04:25 Baso % (Auto) 0.5 % 04/27/21 04:25 Neut # (Auto) 9.86 10^3/uL (1.8-7.7) H 04/27/21 04:25 Lymph # (Auto) 1.6 10^3/uL (0.8-4.8) 04/27/21 04:25 [place] # (Auto) 0.8 10^3/uL (0.2-0.9) 04/27/21 04:25 Eos # (Auto) 0.0 10^3/uL (0.0-0.8) 04/27/21 04:25 Baso # (Auto) 0.1 10^3/uL (0.0-0.1) 04/27/21 04:25 Nucleated RBC % (auto) 2.9 % 04/27/21 04:25 Total Counted 100 (0-100) 04/26/21 05:45 Atypical Lymphs % 0.0 % (0-5) 04/26/21 05:45 Absolute Neutrophils 10.1 10^3/cmm (1.4-6.5) H 04/26/21 05:45 Segmented Neutrophils 47 % 04/26/21 05:45 Abs Segm Neuts (Man) 7.8 10/cmm (1.6-7.1) H 04/26/21 05:45 Band Neutrophils 14.0 % 04/26/21 05:45 Abs Band Neuts (Man) 2.3 10^3/cmm (0.0-1.2) H 04/26/21 05:45 Absolute Lymphocytes 3.3 10^3/cmm (1.2-3.4) 04/26/21 05:45 Lymphocytes (Manual) 20 % 04/26/21 05:45 Monocytes (Manual) 6.0 % 04/26/21 05:45 Absolute Monocytes 1.0 10^3/cmm (0.1-0.6) H 04/26/21 05:45 Eosinophils (Manual) 0 % 04/26/21 05:45 Absolute Eosinophils 0.0 10^3/cmm (0.0-0.7) 04/26/21 05:45 Basophils (Manual) 0.0 % 04/26/21 05:45 Absolute Basophils 0.0 10^3/cmm (0.0-0.2) 04/26/21 05:45 Metamyelocytes 10.0 % 04/26/21 05:45 Myelocytes 3.0 % 04/26/21 05:45 Nucleated RBCs 1.0 /100WBC (0-1) 04/26/21 05:45 Nucleated RBCs # 0.4 /100WBC 04/27/21 04:25 Platelet Estimate Normal (Normal) 04/26/21 05:45 Hypochromasia 2+ H 04/23/21 18:20 Basophilic Stippling Trace 04/21/21 Unknown Anisocytosis Trace 04/26/21 05:45 PT 16.40 SECONDS (12.1-14.9) H 04/19/21 03:00 INR 1.28 (0.8-1.2) H 04/19/21 03:00 APTT 112.1 SECONDS (23.9-36.7) H D 04/27/21 10:38 Fibrinogen 310 mg/dL (174-498) 04/19/21 03:00 Fibrin Degrad Products Pos, 10-40 ug/mL (NEG) H 04/19/21 03:00 D-Dimer 6.68 ug/mIFEU (0-0.59) H 04/21/21 03:50 Specimen Type Arterial 04/27/21 04:00 Sample Site Radial, right 04/27/21 04:00 ABG pH 7.51 (7.35-7.45) H 04/27/21 04:00 ABG pCO2 33.8 mmHg (35-45) L 04/27/21 04:00 ABG pO2 85.0 mmHg (80.0-100.0) 04/27/21 04:00 ABG HCO3 26.9 mmol/L (22-26) H 04/27/21 04:00 ABG O2 Saturation 92.5 04/25/21 12:21 ABG Base Excess 3.6 mmol/L (-2.0-2.0) H 04/27/21 04:00 Dennis Test Pos 04/27/21 04:00 A-a O2 Gradient 23.3 mmHg (5-10) H 04/25/21 12:21 Hematocrit 19.6 % (37-47) L 04/27/21 04:00 Hgb O2 Saturation 90.9 % (95-100) L 04/25/21 12:21 Carboxyhemoglobin 1.3 %THgb (0.4-20.1) 04/25/21 12:21 Methemoglobin 0.5 % (0.4-1.5) 04/25/21 12:21 Total Hemoglobin 9.3 g/dL (12-16) L 04/25/21 12:21 Sodium 138.0 mmol/L (131-143) 04/25/21 12:21 Potassium 4.0 mmol/L (3.5-5.0) 04/25/21 12:21 Glucose 81.0 mg/dL (70-115) 04/25/21 12:21 Ionized Calcium 1.1 mmol/L (1.1-1.4) 04/25/21 12:21 Respiration Rate 20.0 % 04/23/21 05:25 O2 Delivery Device Vent 04/27/21 04:00 Mechanical Rate 20.0 04/26/21 04:00 FiO2 35.0 % 04/27/21 04:00 Tidal Volume 0.35 04/27/21 04:00 PEEP 5.0 cmH20 04/27/21 04:00 Online Community Manager ID [email or web address] 04/27/21 04:00 Sodium 138 mmol/L (136-145) 04/27/21 04:25 Potassium 4.6 mmol/L (3.5-5.1) 04/27/21 04:25 Chloride 92 mmol/L (98-107) L 04/27/21 04:25 Carbon Dioxide 22 mmol/L (22-29) 04/27/21 04:25 Anion Gap 28.6 (5-19) H 04/27/21 04:25 BUN 62 mg/dL (6-20) H 04/27/21 04:25 Creatinine 4.9 mg/dL (0.5-0.9) H 04/27/21 04:25 GFR Calculation 9.9 mL/min (90-130) L 04/27/21 04:25 Glucose 171 mg/dL (65-115) H 04/27/21 04:25 POC Glucose 104 mg/dL (70-110) 04/27/21 11:15 Estimat Average Glucose 134 04/18/21 22:48 Hemoglobin A1c 6.3 % (4.0-6.0) H 04/18/21 22:48 Calculated Osmolality 308 mOsm/kg (285-295) H 04/27/21 04:25 Lactic Acid 5.1 mmol/L (0.5-2.2) H* 04/20/21 03:20 Lactic Acid (Sepsis) 4.7 mmol/L (0.5-2.2) H* 04/20/21 06:47 Lactate 1.4 mmol/L (0.5-2.2) 04/26/21 08:34 Uric Acid 12.0 mg/dL (2.4-5.7) H 04/20/21 09:20 Calcium 8.1 mg/dL (8.5-10.5) L 04/27/21 04:25 Phosphorus 3.7 mg/dL (2.5-4.5) 04/24/21 03:59 Magnesium 2.4 mg/dL (1.7-2.3) H 04/24/21 03:59 Iron 37 ug/dL (37-145) 04/23/21 06:20 TIBC 157 mcg/dl 04/23/21 06:20 % Saturation 23.5 % (20-50) 04/23/21 06:20 Unsat Iron Binding 120 ug/dL (112-347) 04/23/21 06:20 Ferritin 481 ng/mL (15-150) H 04/22/21 00:32 Total Bilirubin 1.0 mg/dL (0.15-1.2) 04/27/21 04:25 GGT 108 U/L (5-36) H 04/19/21 03:00 AST 25 U/L (0-32) 04/27/21 04:25 ALT 51 U/L (0-33) H 04/27/21 04:25 Alkaline Phosphatase 494 IU/L (35-105) H 04/27/21 04:25 Lactate Dehydrogenase 725 U/L (135-214) H 04/26/21 05:45 Creatine Kinase 79 U/L (26-192) 04/19/21 03:00 Troponin T Baseline 31 ng/L (0-10) H 04/20/21 16:45 Troponin T 120 Minute 31.12 ng/L (0-10) H 04/20/21 19:44 Delta Troponin T 0.12 ABS# (0-10) 04/20/21 19:44 Troponin T Hi Sens 6Hr 27.06 ng/L (0-10) H 04/21/21 03:50 Troponin T Hi Sens 6Hr Delta -3.94 ng/L (0-12) L 04/21/21 03:50 C-Reactive Protein 100.4 mg/L (0.0-4.9) H 04/26/21 05:45 Total Protein 5.3 g/dL (6.6-8.7) L 04/27/21 04:25 Albumin 2.3 g/dL (3.5-5.2) L 04/27/21 04:25 Globulin 3.0 g/dL (1.3-4.6) 04/27/21 04:25 Triglycerides 366 mg/dL (0-150) H 04/27/21 04:25 Cholesterol 322 mg/dL (0-200) H 04/19/21 03:00 LDL Cholesterol Direct 15 mg/dL (0-100) 04/24/21 03:59 LDL Cholesterol, Calc Not Reportable 04/19/21 03:00 HDL Cholesterol 12 mg/dL (60-100) L 04/19/21 03:00 LDL/HDL Ratio Not Reportable 04/19/21 03:00 Cholesterol/HDL Ratio 26.83 mg/dL (0.0-4.40) H 04/19/21 03:00 Lipase 15 U/L (13-60) 04/25/21 04:34 25-OH Vitamin D Total 7 ng/mL (30-100) L 04/21/21 03:50 1,25 Dihydroxy Vit D2 <8 pg/mL 04/20/21 03:20 1,25 Dihydroxy Vit D3 <8 pg/mL 04/20/21 03:20 Procalcitonin 0.60 ng/mL (0-0.5) H 04/25/21 04:34 TSH 1.02 uIU/mL (0.27-4.20) 04/19/21 03:00 HCG, Qual Negative (Negative) 04/18/21 22:48 PTH Intact 274.7 pg/mL (15-65) H 04/21/21 03:50 Calcium (PTH Intact) 6.7 mg/dL (8.5-10.5) L 04/21/21 03:50 Urine Color Yellow (Yellow) 04/18/21 23:19 Urine Appearance Clear (CLEAR) 04/18/21 23:19 Urine pH 5 (5-7) 04/18/21 23:19 Ur Specific [place] 1.020 (1.005-1.030) 04/18/21 23:19 Urine Protein 3+ (Negative) H 04/18/21 23:19 Urine Glucose (UA) 1+ (Normal) H 04/18/21 23:19 Urine Ketones 1+ (Negative) H 04/18/21 23:19 Urine Blood 2+ (Negative) H 04/18/21 23:19 Urine Nitrate Negative (Negative) 04/18/21 23:19 Urine Bilirubin 1+ (Negative) H 04/18/21 23:19 Urine Urobilinogen 1 mg/dL (Negative) H 04/18/21 23:19 Ur Leukocyte Esterase Negative (Negative) 04/18/21 23:19 Urine RBC 5-10 /hpf (0-2) H 04/18/21 23:19 Urine WBC 0-4 /hpf (0-5) H 04/18/21 23:19 Ur Eosinophil Smear 0 (0-0) 04/19/21 05:35 Ur Squamous Epith Cells 10-15 /hpf (0-5) H 04/18/21 23:19 Amorphous Sediment 3+ /hpf 04/18/21 23:19 Urine Bacteria 2+ /hpf (NONE) H 04/18/21 23:19 Urine Eosinophils No eosinophils seen 04/19/21 05:35 Ur Random Creatinine 128 mg/dL (20-275) 04/19/21 05:35 Ur Random Albumin 46 % 04/19/21 05:35 U Random Total Protein 727 mg/dL (5-24) H 04/19/21 05:35 Ur Random Sodium 57 mmol/L 04/19/21 05:35 Ur Random Potassium 27 mmol/L 04/19/21 05:35 Ur Random Chloride 50 mmol/L 04/19/21 05:35 Urine Creatinine 139 mg/dL (28-217) 04/19/21 05:35 Protein/Creatinin Ratio 5680 mg/g creat (21-161) H 04/19/21 05:35 Protein/Creat Ratio 24h 5.680 (0.021-0.161) H 04/19/21 05:35 U Random s-5-Dqgdunlb % 4 % 04/19/21 05:35 U Random d-0-Moxbyqhd % 12 % 04/19/21 05:35 U Random Beta Globulin 21 % 04/19/21 05:35 U Random Gamma Glob 18 % 04/19/21 05:35 U Abnormal Prot Band 1 Not Reportable 04/19/21 05:35 U Abnormal Prot Band 2 Not Reportable 04/19/21 05:35 U Abnormal Prot Band 3 Not Reportable 04/19/21 05:35 Urine PEP Interpret See note 04/19/21 05:35 Vancomycin Trough 20.4 ug/mL (10-15) H 04/20/21 03:20 Salicylates < 0.3 mg/dL (3-10) L 04/19/21 03:00 Acetaminophen < 5.0 ug/mL (10-30) L 04/19/21 03:00 Ethylene Glycol <10.0 mg/L () 04/19/21 03:00 Volat Analys Perform On Whole blood 04/19/21 03:00 Ethyl Alcohol < 10 mg/dL (0-10) 04/19/21 03:00 Urine Ethyl Alcohol Cancelled 04/19/21 05:35 Methyl Alcohol Level None detected mg/dL 04/19/21 03:00 Serum Ketones Positive (Negative) H 04/26/21 08:34 Coronavirus 229E (PCR) Not detected (NOT DETECT) 04/19/21 05:35 Hepatitis A IgM Ab Non-reactive (Nonreactive) 04/19/21 03:00 Hep Bs Antigen Non-reactive (Nonreactive) 04/20/21 03:20 Hep Bs Antibody 3.5 (11.5-1000) L 04/20/21 03:20 Hep B Core IgM Ab Non-reactive (Nonreactive) 04/19/21 03:00 Hepatitis C Antibody Non-reactive (Nonreactive) 04/20/21 03:20 HIV 1&2 Ab & HIV 1 Ag Non-reactive (Non-Reactiv) 04/19/21 03:00 HIV 1&2 Antibody Non-reactive (Non-Reactiv) 04/19/21 03:00 Influenza Type A Ag Negative (Negative) 04/19/21 05:35 Influenza Type B Ag Negative (Negative) 04/19/21 05:35 SARS-CoV-2 (PCR) Detected (NOT DETECT) A 04/19/21 05:35 SARS-CoV-2 Ag (Rapid) Negative (Negative) 04/18/21 21:49 Misc Test Reference See comment 04/19/21 05:35 Blood Type O Positive 04/23/21 20:40 Rho(D) Type Positive 04/23/21 20:40 Antibody Screen Negative 04/23/21 20:40 Crossmatch See Detail 04/23/21 20:40 A&P Assessment and plan (1) Acute respiratory distress syndrome (ARDS) due to 2019 novel coronavirus: Status: Acute (2) COVID: Status: Acute (3) Increased anion gap metabolic acidosis: Status: Acute (4) Acute encephalopathy: Status: Acute (5) Acute pancreatitis: Status: Acute (6) Mild mental handicap: Status: Acute (7) GODFREY (generalized anxiety disorder): Status: Acute (8) Essential hypertension: Status: Acute (9) Hypertriglyceridemia: Status: Acute (10) Leukocytosis: Status: Acute (11) Aspiration pneumonia: Status: Acute (12) Hypovolemic shock: Status: Acute Plan # Acute hypoxic respiratory failure in patient with COVID-19 pneumonia and fluid overload secondary to TONY -possible ARDS and patient with COVID-19 PCR positive/pancreatitis; subsegmental PE on CT #TONY due to hypovolemia-ischemic ATN/MAMI/Covid TONY-currently on HD #Hypovolemic shock secondary to pancreatitis-currently off pressors #Pancreatitis secondary to hypertriglyceridemia #Generalized anxiety disorder #Leukocytosis-secondary to dehydration versus possible aspiration pneumonia - with h/o vomiting -Intubated on 04/20/2021 night after an episode of vomiting while she was on BiPAP -ABG today morning 7.5 // on CMV 350//08/17 5% -Saturating 95% on monitor with 25 % FiO2 on ventilator -breathing over the vent-on Versed, fentanyl-tapering down sedation has been a challenge -We'll slowly attempt to, Versed and tapered on fentanyl and managed with propofol/Precedex and do awakening trial -Started on Seroquel 50 twice daily -Repeat CT head did not show any acute intracranial abnormality/there is mild to moderate sinusitis with bilateral mastoiditis and right otitis media -Completed remdesivir and currently on dexamethasone; received Zosyn for possible aspiration pneumonia for 5 days and later changed to imipenem since 04/25/2021-we will discontinue antibiotics on 04/30/2021 -Continue monitoring respiratory status and saturations closely -Off pressors -CT angiogram subsegmental PE; bilateral venous Doppler negative for DVT-on heparin drip -Triglycerides trending down; Off insulin drip-currently on subcutaneous insulin-sugars well controlled -LFTs trending down including total bilirubin ultrasound: Gallstones with no gallbladder wall thickening or pericolic cystic fluid. There is a hypoechoic lesion in posterior mid abdominal ultrasound -Repeat CT abdomen pelvis 04/25/2021: Trace ascites with mild residual pancreatitis - tube feeding --Ketonemia could be secondary to vomitings-resolved -monitor FSBS closely and adjust IV insulin accordingly -Hemodialysis as per renal -Patient's family updated at bedside -Prognosis guarded Recommendations conveyed to hospitalist, RN, RT taking care of the patient Attestations Medical Necessity Statement*: Hypoxic respiratory failure secondary to ARDS due to COVID-19 pneumonia/pancreatitis-fluid overload due to TONY and patient with underlying Covid pneumonia and aspiration pneumonia-requiring mechanical intubation and hemodialysis Time Spent in Patient Care: Greater than 35 minutes (>than 50% of time spent in counselling and/or direct pt care on unit). Critical Care Time: The high probability of a clinically significant, sudden or life threatening deterioration of the patient's [pulmonary, renal system(s) required my full and direct attention, intervention and personal management. The critical care time is as shown. 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
[2021-04-27] MEDS: LORazepam 2 mg/mL INJ 1 mL 0.5 MG IVP (16:58)
[2021-04-27 17:07] LABS: Glucose Point of Care 175 mg/dL (70-110)
--- NOTE | 2021-04-27 17:55 | P.PN_ITS ---
Subjective Subjective: Interval history: Patient sedated on vent patient is sedated on vent unable to communicate Vitals/I&O/Wt Last Vital Signs Temp 98.8 F 04/27/21 16:00 Pulse 108 H 04/27/21 16:22 Resp 26 H 04/27/21 16:23 BP 160/103 04/27/21 16:00 Pulse Ox 96 04/27/21 16:23 04/27/21 04/27/21 04/27/21 06:59 14:59 22:59 Intake Total 415.067 / 2677.378 1683.884 / 1683.884 200 / 1883.884 Output Total 50 / 50 3000 / 3000 Balance 365.067 / 2627.378 -1316.116 / -1316.116 200 / -1116.116 Weight last 48 hrs Weight 71.214 kg Weight 69.49 kg Physical Exam Narrative: EXAM NARRATIVE: Patient sedated no acute distress Neuro: No response to deep sternal rub. Given low-dose Ativan by is on fentanyl drip Cardiac: Regular rate and rhythm normal S1-S2 without murmurs clicks gallops or rubs Lungs: Clear to auscultation anteriorly Abdomen: Soft nontender nondistended hypoactive bowel sounds Extremities: Puffy nonpitting edema in all 4 extremities Skin: Edematous no lesions or rashes noted Urinary Catheter Management: Carroll: Cath Placed During This Visit: yes Reason for Continuing Indwelling Catheter: Accurate Measurement of Urinary Output in Critically Ill Patients Urinary Catheter Date of Insertion: 04/19/21 Urinary Catheter Time of Insertion: 01:00 Data : 04/27/21 04:25 04/27/21 04:25 A&P Assessment and plan (1) Abnormal transaminases: Status: Acute (2) Hypovolemic shock: Status: Acute (3) Aspiration pneumonia: Status: Acute (4) Acute respiratory distress syndrome (ARDS) due to 2019 novel coronavirus: Status: Acute (5) ATN (acute tubular necrosis): Status: Acute (6) COVID: Status: Acute (7) Increased anion gap metabolic acidosis: Status: Acute (8) Acute encephalopathy: Status: Acute (9) Acute pancreatitis: Status: Acute (10) Hypertriglyceridemia: Status: Acute (11) GODFREY (generalized anxiety disorder): Status: Acute (12) Pulmonary embolism: Status: Acute Plan Mechanical ventilation for respiratory failure related to COVID-19 ARDS Related to COVID-19 and pancreatitis We are not able to wean her off because of her tachypnea Seroquel added 04/26, Versed off this am. BP and HR up tonight, prn low dose ativan ordered. Still on fentanyl, ? avoiding Precedex because of sinus pauses noted on telemetry yesterday, twelve-lead EKG showing sinus tachycardia no QTC prolongation She was intubated on 04/20 after episode of vomiting while on BiPAP Right femoral central line and right IJ dialysis catheter 04/20 She had a bowel movement after getting lactulose which resolved her ileus /Vomiting today, NG back to low intermittent suction and if there are no content we will clamp in the evening we will reevaluate if we can start tube feeds tomorrow if not then she will need TPN Her anxiety and tachypnea is a reason for her failing weaning trial ATN: Requiring dialysis appreciate nephro recommendations Contrast-induced nephropathy versus severe dehydration prerenal Oliguric Resistant acidosis with hypervolemia Hypertriglyceridemia induced pancreatitis: Triglyceride lowered with use of i nsulin Avoiding propofol Acute PE currently on heparin drip Hemoglobin slightly trickled down no active GI bleed noted, Febrile episodes noted related to aspiration pneumonia Might benefit from bronchoalveolar lavage No signs of necrotic pancreas Pancreatitis resolving, lipase trending down CT scan repeated twice after the first [address] scans were done during this hospitalization Escalated antibiotics Zosyn to Primaxin Full code Feedings on hold, will need TPN versus tube feeding tomorrow DVT prophylaxis covered with heparin Guarded prognosis Mother at the bedside updated Attestations Medical Necessity Statement*: Critically ill patient requiring mechanical ventilation and hemodialysis as her life support Coding Level of Care Code Acute Correctional Program Specialist for g Fwd Diagnoses Abnormal transaminases R74.8 Hypovolemic shock R57.1 Aspiration pneumonia J69.0 Acute respiratory distress syndrome (ARDS) due to 2019 novel coronavirus U07.1; J80 ATN (acute tubular necrosis) N17.0 COVID U07.1 Increased anion gap metabolic acidosis E87.2 Acute encephalopathy G93.40 Acute pancreatitis K85.90 Hypertriglyceridemia E78.1 GODFREY (generalized anxiety disorder) F41.1 Pulmonary embolism I26.99
--- NOTE | 2021-04-27 18:10 | PC.NURSE ---
Pt resting in bed. Sedation weaned down today in order to assess for extubation readiness. Deemed not ready for extubation d/t lung compliance. Required anxiety med PRN d/t increased HR and BP, tolerated medicine well. No other issues noted. Will monitor.
[2021-04-27 19:14] LABS: Partial Thromboplastin Time > 250.0 SECONDS (23.9-36.7)
--- NOTE | 2021-04-27 19:23 | PC.NURSE ---
Critical PTT greater than [address] Ireland, n.o. given to hold drip, redraw in 4 hours and report new ptt
[2021-04-27 19:50] LABS: Glucose Point of Care 145 mg/dL (70-110)
[2021-04-27 23:54] LABS: Partial Thromboplastin Time 18.3 SECONDS (23.9-36.7)
[2021-04-28] VITALS (62 sets, daily range): BP systolic 87–173; BP diastolic 62–111; PULSE 81–132; RESP 19–38; TEMP 36.9–38; O2SAT 93–98
[2021-04-28] MEDS: famotidine 20 mg/2 mL INJ IVP ×2 (01:44→13:56)
[2021-04-28] MEDS: LORazepam 2 mg/mL INJ 1 mL 0.5 MG IVP ×2 (01:45→10:40)
[2021-04-28] MEDS: ipratropium-albuterol 3 mL Neb INHALATION ×5 (03:14→20:02)
--- NOTE | 2021-04-28 03:25 | PC.NURSE ---
Dr. Ireland advised this nurse to restart heparin at previous rate and do not give bolus, this nurse reported Systolic bp in 170s. t.o. for labatolol 10 mg q4 hr prn htn systolic greater than 170 hold if HR less than 60
[2021-04-28] MEDS: labetalol 5 mg/mL SDV 20mL 10 MG IVP ×2 (04:40→08:02)
[2021-04-28 07:15] LABS: Glucose Point of Care 91 mg/dL (70-110)
[2021-04-28] MEDS: ergocalciferol (vitamin D2) 50,000 Unit Capsule 50000 UNIT PO (08:01)
[2021-04-28] MEDS: quetiapine 25 mg Tablet 50 MG PO ×2 (08:01→17:21)
[2021-04-28] MEDS: calcium carbonate 500 mg Chew Tablet 1000 MG PO ×3 (08:01→21:33)
[2021-04-28] MEDS: sennosides-docusate Tablet 2 TAB PO (08:01)
[2021-04-28] MEDS: fenofibrate 145 mg Tablet PO (08:01)
--- NOTE | 2021-04-28 09:40 | PM.PN ---
Subjective Subjective: Past remains critically sick in the intensive care unit. Currently undergoing weaning trial this morning. Dialysis was unremarkable yesterday. Tolerated the treatment well. Currently off any vasopressor agents. Urine output remains minimal. She still has a Wynn catheter. Medications: Reviewed: Yes Medication Review Details: Current Medications Acetaminophen (Acetaminophen 325 Mg Tablet) 650 mg PO Q6H PRN PRN Reason: Mild/Mod Pain Or Temp >/= 101 Albuterol/Ipratropium (Ipratropium-Albuterol 3 Ml Neb) 3 ml INHALATION Q6H.RESPIRATORY ANNIE Last Admin: 04/23/21 03:41 Dose: 3 ml Documented by: Calcium Carbonate (Calcium Carbonate 500 Mg Chew Tablet) 1,000 mg PO TID ANNIE Last Admin: 04/22/21 21:31 Dose: 1,000 mg Documented by: Dexamethasone (Dexamethasone 10 Mg/Ml Inj) 6 mg IVP Q24H ANNIE Last Admin: 04/22/21 13:38 Dose: 6 mg Documented by: Dextrose (Dextrose 50% Syringe 50 Ml) 25 ml IVP ONCE PRN; Protocol PRN Reason: hypoglycemia protocol Last Admin: 04/20/21 00:25 Dose: 25 ml Documented by: Dextrose (Dextrose 50% Syringe 50 Ml) 50 ml IVP PRN PRN; Protocol PRN Reason: hypoglycemia protocol Last Admin: 04/19/21 20:35 Dose: 50 ml Documented by: Dextrose (Dextrose 50% Syringe 50 Ml) 25 ml IVP ONCE PRN; Protocol PRN Reason: hypoglycemia protocol Dextrose (Dextrose 50% Syringe 50 Ml) 50 ml IVP PRN PRN; Protocol PRN Reason: hypoglycemia protocol Ergocalciferol (Ergocalciferol (Vitamin D2) 50,000 Unit Capsule) 50,000 unit PO Q7D [facility] Last Admin: 04/21/21 12:04 Dose: 50,000 unit Documented by: Famotidine (Famotidine 20 Mg/2 Ml Inj) 20 mg IVP Q12H [facility] Last Admin: 04/23/21 01:38 Dose: 20 mg Documented by: Fenofibrate (Fenofibrate 145 Mg Tablet) 145 mg PO DAILY [facility] Last Admin: 04/22/21 09:06 Dose: 145 mg Documented by: Glucagon (Glucagon 1 Mg/Ml Inj 1 Ml) 1 mg IM ONCE PRN; Protocol PRN Reason: Adult Acute Hypoglycemia Prot Glucagon (Glucagon 1 Mg/Ml Inj 1 Ml) 1 mg IM ONCE PRN; Protocol PRN Reason: Adult Acute Hypoglycemia Prot. Heparin Sodium (Porcine) (Heparin 5,000 Unit/Ml Inj 1 Ml) 5,000 unit SUBCUT Q12H ANNIE Last Admin: 04/21/21 04:54 Dose: Not Given Documented by: Dextrose (D5w) 500 mls @ 100 mls/hr IV ONCE PRN; Protocol PRN Reason: Adult Acute Hypoglycemia Prot Last Infusion: 04/20/21 18:12 Dose: Infused Documented by: Insulin Human Regular 250 unit (/ Sodium Chloride) 252.5 mls @ 0 mls/hr IV .Q0M ANNIE; Protocol Last Titration: 04/22/21 21:29 Dose: 0 unit/hr, 0 mls/hr Documented by: Piperacillin Sod/Tazobactam (Sod 3.375 gm/ Sodium Chloride) 50 mls @ 12.5 mls/hr IV Q12H ANNIE; Protocol Last Infusion: 04/23/21 05:37 Dose: Infused Documented by: Dextrose/Sodium Chloride (Dextrose 5%-Sod Chloride 0.45%) 1,000 mls @ 200 mls/hr IV .Q5H ANNIE Last Admin: 04/23/21 03:14 Dose: Not Given Documented by: Norepinephrine Bitartrate 4 mg (/ Dextrose) 254 mls @ 0 mls/hr IV .Q0M ANNIE; Protocol Last Titration: 04/21/21 22:00 Dose: Infused Documented by: Remdesivir 100 mg/ Sodium (Chloride) 100 mls @ 100 mls/hr IV Q24H [facility] Stop: 04/24/21 06:59 Last Admin: 04/23/21 05:05 Dose: 100 mls/hr Documented by: Norepinephrine Bitartrate 4 mg (/ Dextrose) 254 mls @ 0 mls/hr IV .Q0M ANNIE; Protocol Last Titration: 04/22/21 05:16 Dose: 0 mcg/min, 0 mls/hr Documented by: Heparin Sodium/Sodium Chloride (Heparin Drip) 25,000 unit in 500 mls @ 0 mls/hr IV .Q0M ANNIE; Protocol Last Admin: 04/23/21 04:22 Dose: 20 unit/kg/hr, 24.39 mls/hr Documented by: dexmedeTOMIDine 0.9 % NaCL (Precedex) 400 mcg in 100 mls @ 0 mls/hr IV .Q0M ANNIE; Protocol Last Titration: 04/21/21 01:15 Dose: 0 mcg/kg/hr, 0 mls/hr Documented by: Albumin Human (Albumin) 12.5 gm in 50 mls @ 60 mls/hr IV PRN PRN PRN Reason: Hypotension and/or symptomatic Propofol (Diprivan) 1,000 mg in 100 mls @ 0 mls/hr IV .Q0M ANNIE; Protocol Last Titration: 04/23/21 04:45 Dose: 20 mcg/kg/min, 7.32 mls/hr Documented by: Fentanyl 2,500 mcg/ Sodium (Chloride) 250 mls @ 0 mls/hr IV .Q0M ANNIE; Protocol Last Admin: 04/23/21 03:52 Dose: 50 mcg/hr, 5 mls/hr Documented by: Dextrose (D5w) 500 mls @ 100 mls/hr IV ONCE PRN; Protocol PRN Reason: Adult Acute Hypoglycemia Prot Insulin Human Lispro (Insulin Lispro 100 Unit/1 Ml) 0 unit SUBCUT WM&BEDTIME ANNIE; Protocol Lactulose (Lactulose Oral Liq 20 Gm/30 Ml Udc) 10 gm PO DAILY PRN PRN Reason: CONSTIPATION Lorazepam (Lorazepam 2 Mg/Ml Inj 1 Ml) 2 mg IVP Q4H PRN PRN Reason: ANXIETY Last Admin: 04/21/21 00:01 Dose: 2 mg Documented by: Naloxone HCl (Naloxone 0.4 Mg/Ml Sdv) 0.1 mg IVP Q2M PRN PRN Reason: OPIATERV Ondansetron HCl (Ondansetron 2 Mg/Ml Sdv 2 Ml) 4 mg IVP Q8H PRN PRN Reason: vomiting, or N/V if npo Last Admin: 04/20/21 19:18 Dose: 4 mg Documented by: Senna/Docusate Sodium (Sennosides-Docusate Tablet) 2 tab PO DAILY ANNIE Last Admin: 04/22/21 09:06 Dose: 2 tab Documented by: Vitals/I&O/Wt Last Vital Signs Temp 100.4 F H 04/28/21 08:01 Pulse 114 H 04/28/21 09:11 Resp 24 H 04/28/21 09:09 BP 170/109 04/28/21 08:31 Pulse Ox 97 04/28/21 09:09 04/27/21 04/28/21 04/28/21 22:59 06:59 14:59 Intake Total 355.75 / 2135.634 103.433 / 2239.067 100 / 100 Output Total 75 / 6171 60 / 6231 Balance 280.75 / -4035.366 43.433 / -3991.933 100 / 100 Weight last 48 hrs Weight 71.214 kg Weight 70.6 kg Weight 71.214 kg Physical Exam Narrative: Constitutional: Intubated and vented HEENT: Wet mucosa, no jvp, non icteric Lungs: Bilaterally clear without discernible wheeze or rales in all lung zones CVS: S1 S2, no murmurs Abdo: Soft, BS ok Ext 4: Minimal edema, peripheral perfusion with no cyanosis Neurological: Grossly non-focal Urinary Catheter Management: Wynn: Cath Placed During This Visit: yes Reason for Continuing Indwelling Catheter: Accurate Measurement of Urinary Output in Critically Ill Patients Urinary Catheter Date of Insertion: 04/19/21 Urinary Catheter Time of Insertion: 01:00 Data : 04/27/21 04:25 04/27/21 04:25 A&P Assessment and plan (1) ATN (acute tubular necrosis): 1. Acute kidney injury Remains oligoanuric, likely secondary to acute tubular injury Dialysis planned for tomorrow Strict I's and O's Close monitoring for recovery Dose medication for GFR less than 15 on dialysis DC wynn cath 2. Vent dependent respiratory failure Management per the ICU team, agitated when brought down off sedation Hopefully extubation today 3. Pancreatitis Secondary to hypertriglyceridemia, triglyceride levels now trending down, below 500 Lipase recheck today 4. Chemistry Labs pending for today Mother at bedside, with whom I discussed care and answered all of her questions Thank you for consultation, it is a pleasure to follow these cases with you Exam and interview performed with aid of bedside RN using telemedicine Time spent 20 min inc > 50% of time in face to face counseling Pollo Seo MD [facility] [phone] Status: Acute Attestations Medical Necessity Statement*: Eval for TONY Coding Level of Care Code Acute Barrel Leveler for Chg Fwd Diagnoses ATN (acute tubular necrosis) N17.0
[2021-04-28 09:52] LABS: Basophils # 0.1 10^3/uL (0.0-0.1); Basophils % 0.6 %; Eosinophils # 0.3 10^3/uL (0.0-0.8); Eosinophils % 1.3 %; Hematocrit 26.8 % (37.0-47.0); Lymphocytes # 3.7 10^3/uL (0.8-4.8); Lymphocytes % 19.4 %; Mean Corpuscular HGB Conc 33.6 g/dL (30.0-36.0); Mean Corpuscular Hemoglobin 30.7 pg (28.0-34.0); Mean Corpuscular Volume 91.5 fl (81-99); Mean Platelet Volume 12.9 fL (7.4-10.4); Monocytes # 0.8 10^3/uL (0.2-0.9); Monocytes % 4.4 %; Neutrophils # 12.51 10^3/uL (1.8-7.7); Neutrophils % 64.9 %; Nucleated Red Blood Cells # 0.3 /100WBC; Nucleated Red Blood Cells % 1.8 %; Platelet Count 165 10^3/cmm (130-400); Red Blood Count 2.93 10^6/uL (4.1-5.3); Red Cell Distribution Width 15.2 % (12.1-15.1); White Blood Count 19.3 10^3/uL (4.0-10.0)
[2021-04-28 10:00] LABS: Partial Thromboplastin Time 27.6 SECONDS (23.9-36.7)
[2021-04-28 10:23] LABS: Blood Urea Nitrogen 44 mg/dL (6-20); Calcium 8.5 mg/dL (8.5-10.5); Carbon Dioxide 19 mmol/L (22-29); Glomerular Filtration Rate 16.7 mL/min (90-130); Glucose 96 mg/dL (65-115); Triglycerides 472 mg/dL (0-150)
[2021-04-28 10:25] LABS: Potassium 5.2 mmol/L (3.5-5.1)
[2021-04-28 10:26] LABS: Blood Gas Allen Test Pos; Blood Gas Operator Identificat CAK; Blood Gas Sample Type Arterial; Blood Gas Tidal Volume 0.32; Oxygen Device VENT
[2021-04-28 10:27] LABS: Carboxyhemoglobin 1.3 %THgb (0.4-20.1); Ionized Calcium Level - ABG 1.1 mmol/L (1.1-1.4)
[2021-04-28 10:39] LABS: ABG PCO2 32.1 mmHg (35-45); ABG PH Result 7.53 (7.35-7.45); Alveolar-Arterial Oxygen Gradi 13.9 mmHg (5-10); Arterial Blood Gas Hematocrit 27.5 % (37-47); Blood Gas Sample Site Brachial, right; HCO3 ABG 26.7 mmol/L (22-26); HGB O2 Sat 93.1 % (95-100); Methemoglobin 0.5 % (0.4-1.5); Oxygen Saturation ABG 94.7; PO2 ABG 67.1 mmHg (80.0-100.0); Potassium Level - ABG 3.7 mmol/L (3.5-5.0)
[2021-04-28] MEDS: dexamethasone 10 mg/mL INJ 6 MG IVP (10:40)
[2021-04-28 11:04] LABS: Slide Review Slide Review Perform
[2021-04-28 11:25] LABS: LDL Cholesterol Direct 82 mg/dL (0-100)
[2021-04-28 11:29] LABS: Anion Gap 26.2 (5-19); Chloride 93 mmol/L (98-107); Osmolality Calculated 287 mOsm/kg (285-295); Sodium 133 mmol/L (136-145)
[2021-04-28 11:42] LABS: Glucose Point of Care 113 mg/dL (70-110)
[2021-04-28] MEDS: heparin 5,000 unit/mL INJ 1 mL IV (11:42)
[2021-04-28] MEDS: heparin drip 25,000 UNIT/500 ML PREMIX 25 UNIT IV (11:48)
[2021-04-28] MEDS: dexmedeTOMIDine 0.9 % NaCL 400 MCG/100 ML PREMIX IV (12:38)
--- NOTE | 2021-04-28 13:27 | PC.NURSE ---
PIVx2 started, Femoral CVL removed per MD order. Carroll cath also removed per orders.
--- NOTE | 2021-04-28 13:42 | P.PN_ITS ---
Subjective Subjective: Patient sedated on vent patient is sedated on vent unable to communicate Vitals/I&O/Wt Last Vital Signs Temp 99.9 F H 04/28/21 12:00 Pulse 119 H 04/28/21 12:00 Resp 22 H 04/28/21 13:33 BP 157/101 04/28/21 12:00 Pulse Ox 95 04/28/21 13:33 04/27/21 04/28/21 04/28/21 22:59 06:59 14:59 Intake Total 355.75 / 2135.634 103.433 / 2239.067 270.409 / 270.409 Output Total 75 / 6171 60 / 6231 Balance 280.75 / -4035.366 43.433 / -3991.933 270.409 / 270.409 Weight last 48 hrs Weight 71.214 kg Weight 70.6 kg Weight 71.214 kg Physical Exam Narrative: Patient sedated no acute distress Neuro: No response to deep sternal rub. Cardiac: Regular rate and rhythm normal S1-S2 without murmurs clicks gallops or rubs Lungs: Clear to auscultation anteriorly Abdomen: Soft nontender nondistended hypoactive bowel sounds Extremities: Puffy nonpitting edema in all 4 extremities, mild Skin: no lesions or rashes noted Urinary Catheter Management: Carroll: Cath Placed During This Visit: yes, but has since been removed by the nurse Reason for Continuing Indwelling Catheter: Decision to DC Catheter Urinary Catheter Date of Insertion: 04/19/21 Urinary Catheter Time of Insertion: 01:00 Date Urinary Catheter Removed: 04/28/21 Time Urinary Catheter Discontinued: 10:30 Data : 04/28/21 09:38 04/28/21 09:38 A&P Assessment and plan (1) Abnormal transaminases: Status: Acute (2) Hypovolemic shock: Status: Acute (3) Aspiration pneumonia: Status: Acute (4) Acute respiratory distress syndrome (ARDS) due to 2019 novel coronavirus: Status: Acute (5) ATN (acute tubular necrosis): Status: Acute (6) COVID: Status: Acute (7) Increased anion gap metabolic acidosis: Status: Acute (8) Acute encephalopathy: Status: Acute (9) Acute pancreatitis: Status: Acute (10) Hypertriglyceridemia: Status: Acute (11) GODFREY (generalized anxiety disorder): Status: Acute (12) Pulmonary embolism: Status: Acute Plan Mechanical ventilation for respiratory failure related to COVID-19 D/W Datar. Lung compliance is good. Pt is weak overall. vent mode changed to MMV Unable to wean due to weakness, possible critical care myopathy s/p steroids and anxiety Seroquel added 04/26, no further Versed. Lower dose ativan prn. was intubated on 04/20 after episode of vomiting while on BiPAP Right femoral central line and right IJ dialysis catheter 04/20- femoral line removed today 04/28 ATN: Requiring dialysis appreciate nephro recommendations Contrast-induced nephropathy versus severe dehydration prerenal Oliguric Resistant acidosis with hypervolemia Hypertriglyceridemia induced pancreatitis: Triglycerides rising with ketone positive. restart insulin gtt. No signs of necrotic pancreas Pancreatitis resolving, lipase trending down CT scan repeated twice after the first [address] scans were done during this hospitalization Escalated antibiotics Zosyn to Primaxin Acute PE currently on heparin drip Hemoglobin slightly trickled down no active GI bleed noted, HTN- was on metoprolol, HCTZ and spironolactone ACID TREATER. will place on metoprolol via NG scheduled and increase as indicated since renal failure prevents diuretics and TANYA/ARB. Depression-was on cymbalta. May have withdrawal? start zoloft that can be given via tube Full code DVT prophylaxis covered with heparin Guarded prognosis Attestations Medical Necessity Statement*: Critically ill with hypoxia mechanical ventilation requiring dialysis Coding Level of Care Code Acute Vehicle Maintenance Technician for g Fwd Diagnoses Abnormal transaminases R74.8 Hypovolemic shock R57.1 Aspiration pneumonia J69.0 Acute respiratory distress syndrome (ARDS) due to 2019 novel coronavirus U07.1; J80 ATN (acute tubular necrosis) N17.0 COVID U07.1 Increased anion gap metabolic acidosis E87.2 Acute encephalopathy G93.40 Acute pancreatitis K85.90 Hypertriglyceridemia E78.1 GODFREY (generalized anxiety disorder) F41.1 Pulmonary embolism I26.99
[2021-04-28] MEDS: sertraline 50 mg Tablet PO (13:56)
[2021-04-28] MEDS: metoprolol tartrate 25 mg Tablet PO ×2 (13:56→21:33)
[2021-04-28] MEDS: insulin regular-human 250 UNIT in sodium chloride 0.9% 250 ML IV (14:23)
[2021-04-28] MEDS: dextrose 5% 1,000 ML 50 ML IV (14:46)
[2021-04-28 15:05] LABS: Glucose Point of Care 150 mg/dL (70-110)
[2021-04-28 15:05] LABS: Glucose Point of Care 156 mg/dL (70-110)
--- NOTE | 2021-04-28 15:31 | P.PN_ITS ---
Subjective Subjective: -Currently still on ventilator-requiring 30% FiO2 -On CMV with tidal volume 350-patient plateau pressures are 30; tolerating well on MME -On low-dose fentanyl, propofol and Precedex only; Opens eyes and still does not follow commands -Had episodes of tachypnea, tachycardia and hypertension yesterday night -Plan is to continue to keep on low-dose sedation and slowly wake her up -Ketones positive, triglycerides 440-started on insulin drip and D5 -It has been challenging to taper off sedation, coordinate mentation as patient becomes extremely tachypneic and desaturates -Other labs and imaging reviewed Medications: Reviewed: Yes Medication Review Details: Current Medications Acetaminophen (Acetaminophen 325 Mg Tablet) 650 mg PO Q6H PRN PRN Reason: Mild/Mod Pain Or Temp >/= 101 Albuterol/Ipratropium (Ipratropium-Albuterol 3 Ml Neb) 3 ml INHALATION Q6H.RESPIRATORY [facility] Last Admin: 04/23/21 03:41 Dose: 3 ml Documented by: Calcium Carbonate (Calcium Carbonate 500 Mg Chew Tablet) 1,000 mg PO TID [facility] Last Admin: 04/22/21 21:31 Dose: 1,000 mg Documented by: Dexamethasone (Dexamethasone 10 Mg/Ml Inj) 6 mg IVP Q24H [facility] Last Admin: 04/22/21 13:38 Dose: 6 mg Documented by: Dextrose (Dextrose 50% Syringe 50 Ml) 25 ml IVP ONCE PRN; Protocol PRN Reason: hypoglycemia protocol Last Admin: 04/20/21 00:25 Dose: 25 ml Documented by: Dextrose (Dextrose 50% Syringe 50 Ml) 50 ml IVP PRN PRN; Protocol PRN Reason: hypoglycemia protocol Last Admin: 04/19/21 20:35 Dose: 50 ml Documented by: Dextrose (Dextrose 50% Syringe 50 Ml) 25 ml IVP ONCE PRN; Protocol PRN Reason: hypoglycemia protocol Dextrose (Dextrose 50% Syringe 50 Ml) 50 ml IVP PRN PRN; Protocol PRN Reason: hypoglycemia protocol Ergocalciferol (Ergocalciferol (Vitamin D2) 50,000 Unit Capsule) 50,000 unit PO Q7D [facility] Last Admin: 04/21/21 12:04 Dose: 50,000 unit Documented by: Famotidine (Famotidine 20 Mg/2 Ml Inj) 20 mg IVP Q12H [facility] Last Admin: 04/23/21 01:38 Dose: 20 mg Documented by: Fenofibrate (Fenofibrate 145 Mg Tablet) 145 mg PO DAILY [facility] Last Admin: 04/22/21 09:06 Dose: 145 mg Documented by: Glucagon (Glucagon 1 Mg/Ml Inj 1 Ml) 1 mg IM ONCE PRN; Protocol PRN Reason: Adult Acute Hypoglycemia Prot Glucagon (Glucagon 1 Mg/Ml Inj 1 Ml) 1 mg IM ONCE PRN; Protocol PRN Reason: Adult Acute Hypoglycemia Prot. Heparin Sodium (Porcine) (Heparin 5,000 Unit/Ml Inj 1 Ml) 5,000 unit SUBCUT Q12H [facility] Last Admin: 04/21/21 04:54 Dose: Not Given Documented by: Dextrose (D5w) 500 mls @ 100 mls/hr IV ONCE PRN; Protocol PRN Reason: Adult Acute Hypoglycemia Prot Last Infusion: 04/20/21 18:12 Dose: Infused Documented by: Insulin Human Regular 250 unit (/ Sodium Chloride) 252.5 mls @ 0 mls/hr IV .Q0M [facility]; Protocol Last Titration: 04/22/21 21:29 Dose: 0 unit/hr, 0 mls/hr Documented by: Piperacillin Sod/Tazobactam (Sod 3.375 gm/ Sodium Chloride) 50 mls @ 12.5 mls/hr IV Q12H [facility]; Protocol Last Infusion: 04/23/21 05:37 Dose: Infused Documented by: Dextrose/Sodium Chloride (Dextrose 5%-Sod Chloride 0.45%) 1,000 mls @ 200 mls/hr IV .Q5H [facility] Last Admin: 04/23/21 03:14 Dose: Not Given Documented by: Norepinephrine Bitartrate 4 mg (/ Dextrose) 254 mls @ 0 mls/hr IV .Q0M [facility]; Protocol Last Titration: 04/21/21 22:00 Dose: Infused Documented by: Remdesivir 100 mg/ Sodium (Chloride) 100 mls @ 100 mls/hr IV Q24H [facility] Stop: 04/24/21 06:59 Last Admin: 04/23/21 05:05 Dose: 100 mls/hr Documented by: Norepinephrine Bitartrate 4 mg (/ Dextrose) 254 mls @ 0 mls/hr IV .Q0M [facility]; Protocol Last Titration: 04/22/21 05:16 Dose: 0 mcg/min, 0 mls/hr Documented by: Heparin Sodium/Sodium Chloride (Heparin Drip) 25,000 unit in 500 mls @ 0 mls/hr IV .Q0M [facility]; Protocol Last Admin: 04/23/21 04:22 Dose: 20 unit/kg/hr, 24.39 mls/hr Documented by: dexmedeTOMIDine 0.9 % NaCL (Precedex) 400 mcg in 100 mls @ 0 mls/hr IV .Q0M [facility]; Protocol Last Titration: 04/21/21 01:15 Dose: 0 mcg/kg/hr, 0 mls/hr Documented by: Albumin Human (Albumin) 12.5 gm in 50 mls @ 60 mls/hr IV PRN PRN PRN Reason: Hypotension and/or symptomatic Propofol (Diprivan) 1,000 mg in 100 mls @ 0 mls/hr IV .Q0M [facility]; Protocol Last Titration: 04/23/21 04:45 Dose: 20 mcg/kg/min, 7.32 mls/hr Documented by: Fentanyl 2,500 mcg/ Sodium (Chloride) 250 mls @ 0 mls/hr IV .Q0M [facility]; Protocol Last Admin: 04/23/21 03:52 Dose: 50 mcg/hr, 5 mls/hr Documented by: Dextrose (D5w) 500 mls @ 100 mls/hr IV ONCE PRN; Protocol PRN Reason: Adult Acute Hypoglycemia Prot Insulin Human Lispro (Insulin Lispro 100 Unit/1 Ml) 0 unit SUBCUT WM&BEDTIME [facility]; Protocol Lactulose (Lactulose Oral Liq 20 Gm/30 Ml Udc) 10 gm PO DAILY PRN PRN Reason: CONSTIPATION Lorazepam (Lorazepam 2 Mg/Ml Inj 1 Ml) 2 mg IVP Q4H PRN PRN Reason: ANXIETY Last Admin: 04/21/21 00:01 Dose: 2 mg Documented by: Naloxone HCl (Naloxone 0.4 Mg/Ml Sdv) 0.1 mg IVP Q2M PRN PRN Reason: OPIATERV Ondansetron HCl (Ondansetron 2 Mg/Ml Sdv 2 Ml) 4 mg IVP Q8H PRN PRN Reason: vomiting, or N/V if npo Last Admin: 04/20/21 19:18 Dose: 4 mg Documented by: Senna/Docusate Sodium (Sennosides-Docusate Tablet) 2 tab PO DAILY [facility] Last Admin: 04/22/21 09:06 Dose: 2 tab Documented by: Vitals/I&O/Wt Last Vital Signs Temp 99.9 F H 04/28/21 12:00 Pulse 99 04/28/21 15:28 Resp 25 H 04/28/21 15:27 BP 157/101 04/28/21 12:00 Pulse Ox 97 04/28/21 15:27 04/28/21 04/28/21 04/28/21 06:59 14:59 22:59 Intake Total 103.433 / 2239.067 370.409 / 370.409 2.037 / 372.446 Output Total 60 / 6231 Balance 43.433 / -3991.933 370.409 / 370.409 2.037 / 372.446 Weight last 48 hrs Weight 157 lb Weight 155 lb 10.342 oz Weight 157 lb Physical Exam Narrative: PHYSICAL EXAM: General: lying in bed, sedated and intubated. HEENT:NCAT, PERRLA, EOMI Neck: Supple Lungs: Still has bilateral diffuse crackles Heart: s1/s2, RRR Abd: soft, NT, ND, BS + Normoactive Extremities: No edema PLATEN DRIER OPERATOR: sedated and limited PLATEN DRIER OPERATOR exam possible. SKIN: no rash LDA: # CVC: Right femoral line 04/20/2021-discontinued today # HD Cath : Right internal jugular 04/20/2021 Urinary Catheter Management: Carroll: Cath Placed During This Visit: yes, but has since been removed by the nurse Reason for Continuing Indwelling Catheter: Decision to DC Catheter Urinary Catheter Date of Insertion: 04/19/21 Urinary Catheter Time of Insertion: 01:00 Date Urinary Catheter Removed: 04/28/21 Time Urinary Catheter Discontinued: 10:30 Data : 04/28/21 09:38 04/28/21 09:38 Other Labs: Radiology Impressions Abdomen Ultrasound 04/19/21 02:25 IMPRESSION: 1. Cholelithiasis. Chest CT 04/19/21 02:25 IMPRESSION: 1. Nonspecific gallbladder distention. No calcified stones. 2. Mild retroperitoneal stranding about the pancreas, correlate with pancreatic enzymes. 3. Bilateral pulmonary infiltrates which may be seen with atypical pneumonia. Chest/Abdomen/Pelvis CT 04/22/21 07:35 IMPRESSION: 1. Proximal main pulmonary arteries are normal. A few filling defects in the left lower lobe pulmonary artery suspicious for pulmonary embolus. Images degraded by breathing artifact. 2. Endotracheal tube with tip above the tracey. Enteric tube with tip below the diaphragm in the distal stomach. 3. Air-fluid level in the stomach. Air distended transverse colon compatible with adynamic ileus. 4. Diffuse bilateral pulmonary infiltrates have improved in the lung bases but progressed in the perihilar regions and upper lobes with partial confluence and consolidation in the lung apices with air bronchograms. 5. Small amount of pancreatic edema is similar to previous. Recommend correlation for pancreatitis. 6. Enlarged kidneys bilaterally with heterogeneous enhancement. Correlation for renal insufficiency. No hydronephrosis. 7. Small amount of free fluid in the pelvis. Diffuse body wall anasarca. Message left for Paresh Reese MD at 04/22/2021 11:55 AM. Chest X-Ray 04/25/21 07:51 IMPRESSION: Persistent bilateral airspace opacities. Gallbladder Ultrasound 04/25/21 07:53 IMPRESSION: 1. Slightly hyperechoic liver, which can be seen with fatty infiltration or hepatocellular disease. 2. Nonspecific hepatic hypoechoic lesion adjacent to the gallbladder, which may represent fat sparing. Further evaluation with contrast enhanced abdomen MRI should be considered in the adequate clinical setting. 3. Cholelithiasis without evidence of cholecystitis. 4. Right pleural effusion. Head CT 04/25/21 14:00 IMPRESSION: 1. No acute intracranial abnormality. 2. [id number] sinusitis. 3. Bilateral mastoiditis and right otitis media. Abdomen/Pelvis CT 04/25/21 14:08 IMPRESSION: 1. Bibasilar opacities may be aspiration related, ARDS or pneumonia. 2. Possible contrast nephropathy, correlate clinically. 3. Trace ascites and mild to moderate anasarca. 4. Mild residual pancreatitis. KUB X-Ray 04/26/21 14:33 IMPRESSION: No acute findings. Laboratory Results WBC 19.3 10^3/uL (4.0-10.0) H 04/28/21 09:38 Corrected WBC 8.5 10^3/cmm (4.8-10.8) 04/23/21 18:20 RBC 2.93 10^6/uL (4.1-5.3) L 04/28/21 09:38 Hgb 9.0 g/dL (11.5-15.3) L 04/28/21 09:38 Hct 26.8 % (37.0-47.0) L 04/28/21 09:38 MCV 91.5 fl (81-99) 04/28/21 09:38 MCH 30.7 pg (28.0-34.0) 04/28/21 09:38 MCHC 33.6 g/dL (30.0-36.0) 04/28/21 09:38 RDW 15.2 % (12.1-15.1) H 04/28/21 09:38 Plt Count 165 10^3/cmm (130-400) 04/28/21 09:38 MPV 12.9 fL (7.4-10.4) H 04/28/21 09:38 Neut % (Auto) 64.9 % 04/28/21 09:38 Lymph % (Auto) 19.4 % 04/28/21 09:38 [place] % (Auto) 4.4 % 04/28/21 09:38 Eos % (Auto) 1.3 % 04/28/21 09:38 Baso % (Auto) 0.6 % 04/28/21 09:38 Neut # (Auto) 12.51 10^3/uL (1.8-7.7) H 04/28/21 09:38 Lymph # (Auto) 3.7 10^3/uL (0.8-4.8) 04/28/21 09:38 [place] # (Auto) 0.8 10^3/uL (0.2-0.9) 04/28/21 09:38 Eos # (Auto) 0.3 10^3/uL (0.0-0.8) 04/28/21 09:38 Baso # (Auto) 0.1 10^3/uL (0.0-0.1) 04/28/21 09:38 Nucleated RBC % (auto) 1.8 % 04/28/21 09:38 Total Counted 100 (0-100) 04/26/21 05:45 Atypical Lymphs % 0.0 % (0-5) 04/26/21 05:45 Absolute Neutrophils 10.1 10^3/cmm (1.4-6.5) H 04/26/21 05:45 Segmented Neutrophils 47 % 04/26/21 05:45 Abs Segm Neuts (Man) 7.8 10/cmm (1.6-7.1) H 04/26/21 05:45 Band Neutrophils 14.0 % 04/26/21 05:45 Abs Band Neuts (Man) 2.3 10^3/cmm (0.0-1.2) H 04/26/21 05:45 Absolute Lymphocytes 3.3 10^3/cmm (1.2-3.4) 04/26/21 05:45 Lymphocytes (Manual) 20 % 04/26/21 05:45 Monocytes (Manual) 6.0 % 04/26/21 05:45 Absolute Monocytes 1.0 10^3/cmm (0.1-0.6) H 04/26/21 05:45 Eosinophils (Manual) 0 % 04/26/21 05:45 Absolute Eosinophils 0.0 10^3/cmm (0.0-0.7) 04/26/21 05:45 Basophils (Manual) 0.0 % 04/26/21 05:45 Absolute Basophils 0.0 10^3/cmm (0.0-0.2) 04/26/21 05:45 Metamyelocytes 10.0 % 04/26/21 05:45 Myelocytes 3.0 % 04/26/21 05:45 Nucleated RBCs 1.0 /100WBC (0-1) 04/26/21 05:45 Nucleated RBCs # 0.3 /100WBC 04/28/21 09:38 Platelet Estimate Normal (Normal) 04/26/21 05:45 Hypochromasia 2+ H 04/23/21 18:20 Basophilic Stippling Trace 04/21/21 Unknown Anisocytosis Trace 04/26/21 05:45 PT 16.40 SECONDS (12.1-14.9) H 04/19/21 03:00 INR 1.28 (0.8-1.2) H 04/19/21 03:00 APTT 27.6 SECONDS (23.9-36.7) D 04/28/21 09:32 Fibrinogen 310 mg/dL (174-498) 04/19/21 03:00 Fibrin Degrad Products Pos, 10-40 ug/mL (NEG) H 04/19/21 03:00 D-Dimer 6.68 ug/mIFEU (0-0.59) H 04/21/21 03:50 Specimen Type Arterial 04/28/21 10:14 Sample Site Brachial, right 04/28/21 10:14 ABG pH 7.53 (7.35-7.45) H 04/28/21 10:14 ABG pCO2 32.1 mmHg (35-45) L 04/28/21 10:14 ABG pO2 67.1 mmHg (80.0-100.0) L 04/28/21 10:14 ABG HCO3 26.7 mmol/L (22-26) H 04/28/21 10:14 ABG O2 Saturation 94.7 04/28/21 10:14 ABG Base Excess 4.0 mmol/L (-2.0-2.0) H 04/28/21 10:14 Dennis Test Pos 04/28/21 10:14 A-a O2 Gradient 13.9 mmHg (5-10) H 04/28/21 10:14 Hematocrit 27.5 % (37-47) L 04/28/21 10:14 Hgb O2 Saturation 93.1 % (95-100) L 04/28/21 10:14 Carboxyhemoglobin 1.3 %THgb (0.4-20.1) 04/28/21 10:14 Methemoglobin 0.5 % (0.4-1.5) 04/28/21 10:14 Total Hemoglobin 9.0 g/dL (12-16) L 04/28/21 10:14 Sodium 138.0 mmol/L (131-143) 04/28/21 10:14 Potassium 3.7 mmol/L (3.5-5.0) 04/28/21 10:14 Glucose 103.0 mg/dL (70-115) 04/28/21 10:14 Ionized Calcium 1.1 mmol/L (1.1-1.4) 04/28/21 10:14 Respiration Rate 20.0 % 04/23/21 05:25 O2 Delivery Device Vent 04/28/21 10:14 Mechanical Rate 20.0 04/26/21 04:00 FiO2 30.0 % 04/28/21 10:14 Tidal Volume 0.32 04/28/21 10:14 PEEP 5.0 cmH20 04/28/21 10:14 Utility Engineer ID Cak 04/28/21 10:14 Sodium 133 mmol/L (136-145) L 04/28/21 09:38 Potassium 5.2 mmol/L (3.5-5.1) H 04/28/21 09:38 Chloride 93 mmol/L (98-107) L 04/28/21 09:38 Carbon Dioxide 19 mmol/L (22-29) L 04/28/21 09:38 Anion Gap 26.2 (5-19) H 04/28/21 09:38 BUN 44 mg/dL (6-20) H 04/28/21 09:38 Creatinine 3.1 mg/dL (0.5-0.9) H 04/28/21 09:38 GFR Calculation 16.7 mL/min (90-130) L 04/28/21 09:38 Glucose 96 mg/dL (65-115) 04/28/21 09:38 POC Glucose 150 mg/dL (70-110) H 04/28/21 15:03 Estimat Average Glucose 134 04/18/21 22:48 Hemoglobin A1c 6.3 % (4.0-6.0) H 04/18/21 22:48 Calculated Osmolality 287 mOsm/kg (285-295) 04/28/21 09:38 Lactic Acid 5.1 mmol/L (0.5-2.2) H* 04/20/21 03:20 Lactic Acid (Sepsis) 4.7 mmol/L (0.5-2.2) H* 04/20/21 06:47 Lactate 1.4 mmol/L (0.5-2.2) 04/26/21 08:34 Uric Acid 12.0 mg/dL (2.4-5.7) H 04/20/21 09:20 Calcium 8.5 mg/dL (8.5-10.5) 04/28/21 09:38 Phosphorus 3.7 mg/dL (2.5-4.5) 04/24/21 03:59 Magnesium 2.0 mg/dL (1.7-2.3) 04/28/21 09:38 Iron 37 ug/dL (37-145) 04/23/21 06:20 TIBC 157 mcg/dl 04/23/21 06:20 % Saturation 23.5 % (20-50) 04/23/21 06:20 Unsat Iron Binding 120 ug/dL (112-347) 04/23/21 06:20 Ferritin 481 ng/mL (15-150) H 04/22/21 00:32 Total Bilirubin 1.0 mg/dL (0.15-1.2) 04/27/21 04:25 GGT 108 U/L (5-36) H 04/19/21 03:00 AST 25 U/L (0-32) 04/27/21 04:25 ALT 51 U/L (0-33) H 04/27/21 04:25 Alkaline Phosphatase 494 IU/L (35-105) H 04/27/21 04:25 Lactate Dehydrogenase 725 U/L (135-214) H 04/26/21 05:45 Creatine Kinase 79 U/L (26-192) 04/19/21 03:00 Troponin T Baseline 31 ng/L (0-10) H 04/20/21 16:45 Troponin T 120 Minute 31.12 ng/L (0-10) H 04/20/21 19:44 Delta Troponin T 0.12 ABS# (0-10) 04/20/21 19:44 Troponin T Hi Sens 6Hr 27.06 ng/L (0-10) H 04/21/21 03:50 Troponin T Hi Sens 6Hr Delta -3.94 ng/L (0-12) L 04/21/21 03:50 C-Reactive Protein 100.4 mg/L (0.0-4.9) H 04/26/21 05:45 Total Protein 5.3 g/dL (6.6-8.7) L 04/27/21 04:25 Albumin 2.3 g/dL (3.5-5.2) L 04/27/21 04:25 Globulin 3.0 g/dL (1.3-4.6) 04/27/21 04:25 Triglycerides 472 mg/dL (0-150) H 04/28/21 09:38 Triglycerides Cancelled 04/28/21 09:38 Cholesterol 322 mg/dL (0-200) H 04/19/21 03:00 LDL Cholesterol Direct 82 mg/dL (0-100) 04/28/21 09:38 LDL Cholesterol, Calc Not Reportable 04/19/21 03:00 HDL Cholesterol 12 mg/dL (60-100) L 04/19/21 03:00 LDL/HDL Ratio Not Reportable 04/19/21 03:00 Cholesterol/HDL Ratio 26.83 mg/dL (0.0-4.40) H 04/19/21 03:00 Lipase 15 U/L (13-60) 04/25/21 04:34 25-OH Vitamin D Total 7 ng/mL (30-100) L 04/21/21 03:50 1,25 Dihydroxy Vit D2 <8 pg/mL 04/20/21 03:20 1,25 Dihydroxy Vit D3 <8 pg/mL 04/20/21 03:20 Procalcitonin 0.60 ng/mL (0-0.5) H 04/25/21 04:34 TSH 1.02 uIU/mL (0.27-4.20) 04/19/21 03:00 HCG, Qual Negative (Negative) 04/18/21 22:48 PTH Intact 274.7 pg/mL (15-65) H 04/21/21 03:50 Calcium (PTH Intact) 6.7 mg/dL (8.5-10.5) L 04/21/21 03:50 Urine Color Yellow (Yellow) 04/18/21 23:19 Urine Appearance Clear (CLEAR) 04/18/21 23:19 Urine pH 5 (5-7) 04/18/21 23:19 Ur Specific [place] 1.020 (1.005-1.030) 04/18/21 23:19 Urine Protein 3+ (Negative) H 04/18/21 23:19 Urine Glucose (UA) 1+ (Normal) H 04/18/21 23:19 Urine Ketones 1+ (Negative) H 04/18/21 23:19 Urine Blood 2+ (Negative) H 04/18/21 23:19 Urine Nitrate Negative (Negative) 04/18/21 23:19 Urine Bilirubin 1+ (Negative) H 04/18/21 23:19 Urine Urobilinogen 1 mg/dL (Negative) H 04/18/21 23:19 Ur Leukocyte Esterase Negative (Negative) 04/18/21 23:19 Urine RBC 5-10 /hpf (0-2) H 04/18/21 23:19 Urine WBC 0-4 /hpf (0-5) H 04/18/21 23:19 Ur Eosinophil Smear 0 (0-0) 04/19/21 05:35 Ur Squamous Epith Cells 10-15 /hpf (0-5) H 04/18/21 23:19 Amorphous Sediment 3+ /hpf 04/18/21 23:19 Urine Bacteria 2+ /hpf (NONE) H 04/18/21 23:19 Urine Eosinophils No eosinophils seen 04/19/21 05:35 Ur Random Creatinine 128 mg/dL (20-275) 04/19/21 05:35 Ur Random Albumin 46 % 04/19/21 05:35 U Random Total Protein 727 mg/dL (5-24) H 04/19/21 05:35 Ur Random Sodium 57 mmol/L 04/19/21 05:35 Ur Random Potassium 27 mmol/L 04/19/21 05:35 Ur Random Chloride 50 mmol/L 04/19/21 05:35 Urine Creatinine 139 mg/dL (28-217) 04/19/21 05:35 Protein/Creatinin Ratio 5680 mg/g creat (21-161) H 04/19/21 05:35 Protein/Creat Ratio 24h 5.680 (0.021-0.161) H 04/19/21 05:35 U Random h-6-Utyoeezt % 4 % 04/19/21 05:35 U Random n-8-Rsqoqmra % 12 % 04/19/21 05:35 U Random Beta Globulin 21 % 04/19/21 05:35 U Random Gamma Glob 18 % 04/19/21 05:35 U Abnormal Prot Band 1 Not Reportable 04/19/21 05:35 U Abnormal Prot Band 2 Not Reportable 04/19/21 05:35 U Abnormal Prot Band 3 Not Reportable 04/19/21 05:35 Urine PEP Interpret See note 04/19/21 05:35 Vancomycin Trough 20.4 ug/mL (10-15) H 04/20/21 03:20 Salicylates < 0.3 mg/dL (3-10) L 04/19/21 03:00 Acetaminophen < 5.0 ug/mL (10-30) L 04/19/21 03:00 Ethylene Glycol <10.0 mg/L () 04/19/21 03:00 Volat Analys Perform On Whole blood 04/19/21 03:00 Ethyl Alcohol < 10 mg/dL (0-10) 04/19/21 03:00 Urine Ethyl Alcohol Cancelled 04/19/21 05:35 Methyl Alcohol Level None detected mg/dL 04/19/21 03:00 Serum Ketones Positive (Negative) H 04/26/21 08:34 Coronavirus 229E (PCR) Not detected (NOT DETECT) 04/19/21 05:35 Hepatitis A IgM Ab Non-reactive (Nonreactive) 04/19/21 03:00 Hep Bs Antigen Non-reactive (Nonreactive) 04/20/21 03:20 Hep Bs Antibody 3.5 (11.5-1000) L 04/20/21 03:20 Hep B Core IgM Ab Non-reactive (Nonreactive) 04/19/21 03:00 Hepatitis C Antibody Non-reactive (Nonreactive) 04/20/21 03:20 HIV 1&2 Ab & HIV 1 Ag Non-reactive (Non-Reactiv) 04/19/21 03:00 HIV 1&2 Antibody Non-reactive (Non-Reactiv) 04/19/21 03:00 Influenza Type A Ag Negative (Negative) 04/19/21 05:35 Influenza Type B Ag Negative (Negative) 04/19/21 05:35 SARS-CoV-2 (PCR) Detected (NOT DETECT) A 04/19/21 05:35 SARS-CoV-2 Ag (Rapid) Negative (Negative) 04/18/21 21:[facility] See comment 04/19/21 05:35 Blood Type O Positive 04/23/21 20:40 Rho(D) Type Positive 04/23/21 20:40 Antibody Screen Negative 04/23/21 20:40 Crossmatch See Detail 04/23/21 20:40 A&P Assessment and plan (1) Acute respiratory distress syndrome (ARDS) due to 2019 novel coronavirus: Status: Acute (2) COVID: Status: Acute (3) Increased anion gap metabolic acidosis: Status: Acute (4) Acute encephalopathy: Status: Acute (5) Acute pancreatitis: Status: Acute (6) Mild mental handicap: Status: Acute (7) GODFREY (generalized anxiety disorder): Status: Acute (8) Essential hypertension: Status: Acute (9) Hypertriglyceridemia: Status: Acute (10) Leukocytosis: Status: Acute (11) Aspiration pneumonia: Status: Acute (12) Hypovolemic shock: Status: Acute Plan # Acute hypoxic respiratory failure in patient with COVID-19 pneumonia and fluid overload secondary to TONY -possible ARDS and patient with COVID-19 PCR positive/pancreatitis; subsegmental PE on CT #TONY due to hypovolemia-ischemic ATN/MAMI/Covid TONY-currently on HD #Hypovolemic shock secondary to pancreatitis-currently off pressors #Pancreatitis secondary to hypertriglyceridemia #Generalized anxiety disorder #Leukocytosis-secondary to dehydration versus possible aspiration pneumonia - with h/o vomiting -Intubated on 04/20/2021 night after an episode of vomiting while she was on BiPAP -ABG today 7.5 3/32/67/26/94% on CMV 20/320/30%/5; --On CMV with tidal volume 350-patient plateau pressures are 30; 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; will put her on MMV -On low-dose fentanyl, propofol and Precedex only; Opens eyes and still does not follow commands -Ativan as needed -Plan is to continue to keep on low-dose sedation and slowly wake her up -Ketones positive, triglycerides 472-started on insulin drip and D5 - target fsbs 120-180 -It has been challenging to taper off sedation, coordinate mentation as patient becomes extremely tachypneic and desaturates -on Seroquel 50 twice daily -Repeat CT head did not show any acute intracranial abnormality/there is mild to moderate sinusitis with bilateral mastoiditis and right otitis media -Completed remdesivir and currently on dexamethasone; received Zosyn for possible aspiration pneumonia for 5 days and later changed to imipenem since 04/25/2021-we will discontinue antibiotics on 04/30/2021 -Continue monitoring respiratory status and saturations closely -Off pressors -CT angiogram subsegmental PE; bilateral venous Doppler negative for DVT-on h eparin drip -LFTs trending down including total bilirubin ultrasound: Gallstones with no gallbladder wall thickening or pericolic cystic fluid. There is a hypoechoic lesion in posterior mid abdominal ultrasound -Repeat CT abdomen pelvis 04/25/2021: Trace ascites with mild residual pancreatitis - tube feeding -monitor FSBS closely and adjust IV insulin accordingly -Hemodialysis as per renal -Patient's family updated at bedside -Prognosis guarded Recommendations conveyed to hospitalist, RN, RT taking care of the patient Attestations Medical Necessity Statement*: Hypoxic respiratory failure secondary to ARDS due to COVID-19 pneumonia/pancreatitis-fluid overload due to TONY and patient with underlying Covid pneumonia and aspiration pneumonia-requiring mechanical intubation and hemodialysis Time Spent in Patient Care: Greater than 35 minutes (>than 50% of time spent in counselling and/or direct pt care on unit) . Critical Care Time: The high probability of a clinically significant, sudden or life threatening deterioration of the patient's [pulmonary, renal system(s) required my full and direct attention, intervention and personal management. The critical care time is as shown. This time is in addition to time spent performing any reported procedures but includes the following: [x] Data and vital sign review and interpretation [x] Patient assessment, examination and intervention [x] Documentation [x] Medication orders and management Critical Care Time (min): 45 Coding Level of Care Code Established Pt Acute Tile Sprayer for Chg Fwd Patient Type Established History Comprehensive Exam Comprehensive Medical Decision Making High Complexity Diagnoses Acute respiratory distress syndrome (ARDS) due to 2019 novel coronavirus U07.1; J80 COVID U07.1 Increased anion gap metabolic acidosis E87.2 Acute encephalopathy G93.40 Acute pancreatitis K85.90 Mild mental handicap F70 GODFREY (generalized anxiety disorder) F41.1 Essential hypertension I10 Hypertriglyceridemia E78.1 Leukocytosis D72.829 Aspiration pneumonia J69.0 Hypovolemic shock R57.1 Time Spent (min) 45
[2021-04-28 16:12] LABS: Glucose Point of Care 138 mg/dL (70-110)
[2021-04-28 17:27] LABS: Glucose Point of Care 130 mg/dL (70-110)
--- NOTE | 2021-04-28 18:04 | PC.SOCIAL ---
IM not given at this time patient is still too acute. Will not dc in next two days
[2021-04-28 18:13] LABS: Glucose Point of Care 120 mg/dL (70-110)
--- NOTE | 2021-04-28 18:20 | PC.NURSE ---
Shift Note Frequent safety and comfort rounds continue. Orders and/or nursing care completed as indicated. Patient monitored for response to intervention and treatment(s). Education provided includes treatment plan, medications, vent weaning. Mother and father verbalize understanding. Pt on insulin and heparin gtts per orders. Fentanyl and precedex infusing per orders. Carroll cath removed per orders. No issues noted. Will monitor.
[2021-04-28 18:48] LABS: Partial Thromboplastin Time 57.3 SECONDS (23.9-36.7)
[2021-04-28 18:55] LABS: Glucose Point of Care 122 mg/dL (70-110)
[2021-04-28 21:03] LABS: Glucose Point of Care 113 mg/dL (70-110)
[2021-04-28 21:04] LABS: Glucose Point of Care 110 mg/dL (70-110)
[2021-04-28 21:15] LABS: ABG PCO2 33.6 mmHg (35-45); ABG PH Result 7.53 (7.35-7.45); Alveolar-Arterial Oxygen Gradi 12.4 mmHg (5-10); Arterial Blood Gas Hematocrit 31.9 % (37-47); Base Excess ABG 5.3 mmol/L (-2.0-2.0); Blood Gas Allen Test Pos; Blood Gas Operator Identificat JB; Blood Gas Sample Site Radial, right; Blood Gas Sample Type Arterial; Blood Gas Tidal Volume 0.32; Carboxyhemoglobin 1.2 %THgb (0.4-20.1); HCO3 ABG 28.1 mmol/L (22-26); HGB O2 Sat 94.6 % (95-100); Ionized Calcium Level - ABG 1.1 mmol/L (1.1-1.4); Methemoglobin 0.8 % (0.4-1.5); Oxygen Device VENT; Oxygen Saturation ABG 96.5; PO2 ABG 75.4 mmHg (80.0-100.0); Potassium Level - ABG 4.2 mmol/L (3.5-5.0); Total Hemoglobin 10.4 g/dL (12-16)
--- NOTE | 2021-04-28 22:13 | PC.NURSE ---
After repositioning, pt began to cough and gag on her ETT. Precedex increased per protocol. Pt's mother at bedside.
[2021-04-28 22:17] LABS: Glucose Point of Care 132 mg/dL (70-110)
[2021-04-28] MEDS: dexmedeTOMIDine 0.9 % NaCL 400 MCG/100 ML PREMIX 9.14 MCG IV (22:57)
[2021-04-28 23:08] LABS: Glucose Point of Care 140 mg/dL (70-110)
[2021-04-29] VITALS (67 sets, daily range): BP systolic 92–134; BP diastolic 55–100; PULSE 74–111; RESP 18–38; TEMP 36.2–38; O2SAT 45–100
[2021-04-29 00:12] LABS: Glucose Point of Care 150 mg/dL (70-110)
--- NOTE | 2021-04-29 00:33 | PC.NURSE ---
Pt again breathing rapidly. C02 per tele monitor is 10. Sedation again titrated.
[2021-04-29] MEDS: ipratropium-albuterol 3 mL Neb INHALATION ×7 (00:43→23:18)
--- NOTE | 2021-04-29 00:57 | PC.NURSE ---
Addendum entered by Lise Kaba RN 04/29/21 02:54: Witnessed waste Laura Kaba RN Original Note: 55 mls of Fentanyl and 65 mls of Versed wasted with second RN as a witness. Versed discontinued, Fentanyl .
[2021-04-29 01:14] LABS: Glucose Point of Care 134 mg/dL (70-110)
[2021-04-29 01:14] LABS: Partial Thromboplastin Time 65.6 SECONDS (23.9-36.7)
--- NOTE | 2021-04-29 01:37 | PC.NURSE ---
Fentanyl tubing changed.
[2021-04-29 02:08] LABS: Glucose Point of Care 118 mg/dL (70-110)
[2021-04-29 03:08] LABS: Glucose Point of Care 119 mg/dL (70-110)
[2021-04-29] MEDS: famotidine 20 mg/2 mL INJ IVP ×2 (03:15→13:48)
[2021-04-29 04:05] LABS: Glucose Point of Care 108 mg/dL (70-110)
[2021-04-29 05:42] LABS: Glucose Point of Care 101 mg/dL (70-110)
[2021-04-29 05:42] LABS: Glucose Point of Care 117 mg/dL (70-110)
[2021-04-29] MEDS: dexmedeTOMIDine 0.9 % NaCL 400 MCG/100 ML PREMIX 9.14 MCG IV ×3 (06:05→23:15)
[2021-04-29 06:48] LABS: Partial Thromboplastin Time 66.6 SECONDS (23.9-36.7)
[2021-04-29 06:52] LABS: Glucose Point of Care 117 mg/dL (70-110)
[2021-04-29 06:52] LABS: Glucose Point of Care 113 mg/dL (70-110)
--- NOTE | 2021-04-29 06:52 | XR_ITS ---
WS: [id number] XR chest 1V portable [id number] REASON FOR EXAM: pneumonia FINDINGS: Endotracheal tube tip at the level of the right mainstem bronchus. Nasogastric tube with the tip overlying the fundus of the stomach. Dual-lumen right jugular central venous catheter with tip at the cavoatrial junction. Diffuse bilateral pulmonary opacities with decreased lung volumes. XR/XR chest 1V portable [id number] IMPRESSION: Endotracheal tube tip location as above. Otherwise stable abnormal chest.
[2021-04-29 07:58] LABS: Hematocrit 26.5 % (37.0-47.0); Hemoglobin 8.6 g/dL (11.5-15.3); Mean Corpuscular HGB Conc 32.5 g/dL (30.0-36.0); Mean Corpuscular Hemoglobin 30.6 pg (28.0-34.0); Mean Corpuscular Volume 94.3 fl (81-99); Mean Platelet Volume 12.7 fL (7.4-10.4); Platelet Count 128 10^3/cmm (130-400); Red Blood Count 2.81 10^6/uL (4.1-5.3); Red Cell Distribution Width 15.7 % (12.1-15.1)
[2021-04-29] MEDS: calcium carbonate 500 mg Chew Tablet 1000 MG PO ×3 (08:12→21:04)
[2021-04-29] MEDS: sennosides-docusate Tablet 2 TAB PO (08:12)
[2021-04-29] MEDS: fenofibrate 145 mg Tablet PO (08:12)
[2021-04-29] MEDS: sertraline 50 mg Tablet PO (08:12)
[2021-04-29] MEDS: quetiapine 25 mg Tablet 50 MG PO ×2 (08:12→17:41)
[2021-04-29] MEDS: heparin drip 25,000 UNIT/500 ML PREMIX 25 UNIT IV (08:21)
[2021-04-29 08:26] LABS: Glucose Point of Care 108 mg/dL (70-110)
[2021-04-29 08:29] LABS: Alanine Aminotransferase 12 U/L (0-33); Albumin Level 2.5 g/dL (3.5-5.2); Alkaline Phosphatase 264 IU/L (35-105); Anion Gap 14.4 (5-19); Aspartate Amino Transferase 15 U/L (0-32); Blood Urea Nitrogen 46 mg/dL (6-20); Calcium 8.2 mg/dL (8.5-10.5); Carbon Dioxide 24 mmol/L (22-29); Chloride 93 mmol/L (98-107); Globulin 2.7 g/dL (1.3-4.6); Glomerular Filtration Rate 16.7 mL/min (90-130); Glucose 103 mg/dL (65-115); Magnesium 1.9 mg/dL (1.7-2.3); Osmolality Calculated 278 mOsm/kg (285-295); Potassium 3.4 mmol/L (3.5-5.1); Sodium 128 mmol/L (136-145); Total Bilirubin 0.8 mg/dL (0.15-1.2); Total Protein 5.2 g/dL (6.6-8.7); Triglycerides 301 mg/dL (0-150)
[2021-04-29 08:34] LABS: ABG PCO2 38.8 mmHg (35-45); Alveolar-Arterial Oxygen Gradi 13.3 mmHg (5-10); Arterial Blood Gas Hematocrit 31.4 % (37-47); Base Excess ABG 6.4 mmol/L (-2.0-2.0); Blood Gas Allen Test Pos; Blood Gas Operator Identificat BD; Blood Gas Sample Site Radial, left; Blood Gas Sample Type Arterial; Blood Gas Tidal Volume 0.32; Carboxyhemoglobin 1.3 %THgb (0.4-20.1); HCO3 ABG 30.1 mmol/L (22-26); HGB O2 Sat 91.2 % (95-100); Ionized Calcium Level - ABG 1.1 mmol/L (1.1-1.4); Methemoglobin 1.1 % (0.4-1.5); Oxygen Device VENT; Oxygen Saturation ABG 93.4; PO2 ABG 63.5 mmHg (80.0-100.0); Total Hemoglobin 10.2 g/dL (12-16)
[2021-04-29 08:57] LABS: Ketone (Acetest) Serum Negative (Negative)
[2021-04-29 09:32] LABS: Slide Review Slide Review Perform
[2021-04-29 09:33] LABS: Absolute Eosinophils 0.2 10^3/cmm (0.0-0.7); Absolute Segmented Neutrophil 7.1 10/cmm (1.6-7.1); Band Neutrophils Absolute 0.4 10^3/cmm (0.0-1.2); Eosinophils 2 %; Lymphocytes 32 %; Lymphocytes Absolute 5.2 10^3/cmm (1.2-3.4); Segmented Neutrophils 51 %; Total Cells Counted 100 (0-100)
[2021-04-29 09:36] LABS: Absolute Neutrophil 7.6 10^3/cmm (1.4-6.5); Platelet Estimate Normal (Normal)
[2021-04-29 09:39] LABS: Anisocytosis Trace
--- NOTE | 2021-04-29 09:59 | P.PN_ITS ---
Subjective Subjective: Ms. Clay remains critically sick in the intensive care unit. Weaning trials attempted, however, she became tachypneic and tachycardic and so this was subsequently aborted. FiO2 30%, no vasopressor agents. Minimal urine output, currently on dialysis and tolerating this well. Medications: Reviewed: Yes Medication Review Details: Current Medications Acetaminophen (Acetaminophen 325 Mg Tablet) 650 mg PO Q6H PRN PRN Reason: Mild/Mod Pain Or Temp >/= 101 Albuterol/Ipratropium (Ipratropium-Albuterol 3 Ml Neb) 3 ml INHALATION Q6H.RESPIRATORY ANNIE Last Admin: 04/23/21 03:41 Dose: 3 ml Documented by: Calcium Carbonate (Calcium Carbonate 500 Mg Chew Tablet) 1,000 mg PO TID [facility] Last Admin: 04/22/21 21:31 Dose: 1,000 mg Documented by: Dexamethasone (Dexamethasone 10 Mg/Ml Inj) 6 mg IVP Q24H [facility] Last Admin: 04/22/21 13:38 Dose: 6 mg Documented by: Dextrose (Dextrose 50% Syringe 50 Ml) 25 ml IVP ONCE PRN; Protocol PRN Reason: hypoglycemia protocol Last Admin: 04/20/21 00:25 Dose: 25 ml Documented by: Dextrose (Dextrose 50% Syringe 50 Ml) 50 ml IVP PRN PRN; Protocol PRN Reason: hypoglycemia protocol Last Admin: 04/19/21 20:35 Dose: 50 ml Documented by: Dextrose (Dextrose 50% Syringe 50 Ml) 25 ml IVP ONCE PRN; Protocol PRN Reason: hypoglycemia protocol Dextrose (Dextrose 50% Syringe 50 Ml) 50 ml IVP PRN PRN; Protocol PRN Reason: hypoglycemia protocol Ergocalciferol (Ergocalciferol (Vitamin D2) 50,000 Unit Capsule) 50,000 unit PO Q7D [facility] Last Admin: 04/21/21 12:04 Dose: 50,000 unit Documented by: Famotidine (Famotidine 20 Mg/2 Ml Inj) 20 mg IVP Q12H [facility] Last Admin: 04/23/21 01:38 Dose: 20 mg Documented by: Fenofibrate (Fenofibrate 145 Mg Tablet) 145 mg PO DAILY [facility] Last Admin: 04/22/21 09:06 Dose: 145 mg Documented by: Glucagon (Glucagon 1 Mg/Ml Inj 1 Ml) 1 mg IM ONCE PRN; Protocol PRN Reason: Adult Acute Hypoglycemia Prot Glucagon (Glucagon 1 Mg/Ml Inj 1 Ml) 1 mg IM ONCE PRN; Protocol PRN Reason: Adult Acute Hypoglycemia Prot. Heparin Sodium (Porcine) (Heparin 5,000 Unit/Ml Inj 1 Ml) 5,000 unit SUBCUT Q12H ANNIE Last Admin: 04/21/21 04:54 Dose: Not Given Documented by: Dextrose (D5w) 500 mls @ 100 mls/hr IV ONCE PRN; Protocol PRN Reason: Adult Acute Hypoglycemia Prot Last Infusion: 04/20/21 18:12 Dose: Infused Documented by: Insulin Human Regular 250 unit (/ Sodium Chloride) 252.5 mls @ 0 mls/hr IV .Q0M ANNIE; Protocol Last Titration: 04/22/21 21:29 Dose: 0 unit/hr, 0 mls/hr Documented by: Piperacillin Sod/Tazobactam (Sod 3.375 gm/ Sodium Chloride) 50 mls @ 12.5 mls/hr IV Q12H ANNIE; Protocol Last Infusion: 04/23/21 05:37 Dose: Infused Documented by: Dextrose/Sodium Chloride (Dextrose 5%-Sod Chloride 0.45%) 1,000 mls @ 200 mls/hr IV .Q5H ANNIE Last Admin: 04/23/21 03:14 Dose: Not Given Documented by: Norepinephrine Bitartrate 4 mg (/ Dextrose) 254 mls @ 0 mls/hr IV .Q0M ANNIE; Pr otocol Last Titration: 04/21/21 22:00 Dose: Infused Documented by: Remdesivir 100 mg/ Sodium (Chloride) 100 mls @ 100 mls/hr IV Q24H ANNIE Stop: 04/24/21 06:59 Last Admin: 04/23/21 05:05 Dose: 100 mls/hr Documented by: Norepinephrine Bitartrate 4 mg (/ Dextrose) 254 mls @ 0 mls/hr IV .Q0M ANNIE; Protocol Last Titration: 04/22/21 05:16 Dose: 0 mcg/min, 0 mls/hr Documented by: Heparin Sodium/Sodium Chloride (Heparin Drip) 25,000 unit in 500 mls @ 0 mls/hr IV .Q0M ANNIE; Protocol Last Admin: 04/23/21 04:22 Dose: 20 unit/kg/hr, 24.39 mls/hr Documented by: dexmedeTOMIDine 0.9 % NaCL (Precedex) 400 mcg in 100 mls @ 0 mls/hr IV .Q0M ANNIE; Protocol Last Titration: 04/21/21 01:15 Dose: 0 mcg/kg/hr, 0 mls/hr Documented by: Albumin Human (Albumin) 12.5 gm in 50 mls @ 60 mls/hr IV PRN PRN PRN Reason: Hypotension and/or symptomatic Propofol (Diprivan) 1,000 mg in 100 mls @ 0 mls/hr IV .Q0M ANNIE; Protocol Last Titration: 04/23/21 04:45 Dose: 20 mcg/kg/min, 7.32 mls/hr Documented by: Fentanyl 2,500 mcg/ Sodium (Chloride) 250 mls @ 0 mls/hr IV .Q0M ANNIE; Protocol Last Admin: 04/23/21 03:52 Dose: 50 mcg/hr, 5 mls/hr Documented by: Dextrose (D5w) 500 mls @ 100 mls/hr IV ONCE PRN; Protocol PRN Reason: Adult Acute Hypoglycemia Prot Insulin Human Lispro (Insulin Lispro 100 Unit/1 Ml) 0 unit SUBCUT WM&BEDTIME ANNIE; Protocol Lactulose (Lactulose Oral Liq 20 Gm/30 Ml Udc) 10 gm PO DAILY PRN PRN Reason: CONSTIPATION Lorazepam (Lorazepam 2 Mg/Ml Inj 1 Ml) 2 mg IVP Q4H PRN PRN Reason: ANXIETY Last Admin: 04/21/21 00:01 Dose: 2 mg Documented by: Naloxone HCl (Naloxone 0.4 Mg/Ml Sdv) 0.1 mg IVP Q2M PRN PRN Reason: OPIATERV Ondansetron HCl (Ondansetron 2 Mg/Ml Sdv 2 Ml) 4 mg IVP Q8H PRN PRN Reason: vomiting, or N/V if npo Last Admin: 04/20/21 19:18 Dose: 4 mg Documented by: Senna/Docusate Sodium (Sennosides-Docusate Tablet) 2 tab PO DAILY ANNIE Last Admin: 04/22/21 09:06 Dose: 2 tab Documented by: Vitals/I&O/Wt Last Vital Signs Temp 97.8 F 04/29/21 08:00 Pulse 91 04/29/21 09:30 Resp 24 H 04/29/21 08:39 BP 113/62 04/29/21 09:30 Pulse Ox 95 04/29/21 09:30 04/28/21 04/29/21 04/29/21 22:59 06:59 14:59 Intake Total 332.803 / 703.212 371.369 / 9307.247 1523.95 / 1588.95 Balance 332.803 / 703.212 371.369 / 6875.025 6377.95 / 1588.95 Weight last 48 hrs Weight 71.078 kg Weight 71.214 kg Weight 70.6 kg Physical Exam Narrative: Constitutional: Intubated and vented HEENT: Wet mucosa, no jvp, non icteric Lungs: Bilaterally clear without discernible wheeze or rales in all lung zones CVS: S1 S2, no murmurs Abdo: Soft, BS ok Ext 4: Minimal edema, peripheral perfusion with no cyanosis Neurological: Grossly non-focal Urinary Catheter Management: Wynn: Cath Placed During This Visit: yes, but has since been removed by the nurse Reason for Continuing Indwelling Catheter: Decision to DC Catheter Urinary Catheter Date of Insertion: 04/19/21 Urinary Catheter Time of Insertion: 01:00 Date Urinary Catheter Removed: 04/28/21 Time Urinary Catheter Discontinued: 10:30 Data : 04/29/21 07:50 04/29/21 07:50 Micro: Microbiology 04/28/21 21:29 Blood Culture - Preliminary Blood SPECIMEN COLLECTED 04/28/21 21:25 Blood Culture - Preliminary Blood SPECIMEN COLLECTED A&P Assessment and plan (1) ATN (acute tubular necrosis): 1. Acute kidney injury Remains oligoanuric, likely secondary to acute tubular injury Seen on dialysis today Strict I's and O's Close monitoring for recovery Dose medication for GFR less than 15 on dialysis Bladder scan today No wynn 2. Vent dependent respiratory failure Management per the ICU team, agitated when brought down off sedation 3. Pancreatitis Secondary to hypertriglyceridemia, triglyceride levels now trending down, below 500 On inuslin gtt, mgmt per medicine 4. 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
--- NOTE | 2021-04-29 10:03 | PC.CHAP ---
Pastoral Care Encounter/Spiritual Assessment Type of Contact [] Declined billet assembler visit [] Patient/Family/Request visit [] Outpatient visit [] Follow-up visit [] Physician referral [] Code/Alert [x] Routine visit [] Staff referral [] Actively dying [] Patient sleeping [x] Family support [] [] Out of room [] Palliative care [] [] Receiving care in room [] Pre-surgical visit [] Trauma [] Long length of stay [x] ICU visit [x] Other: dialysis ... Relational/Emotional Strength [] Patient feels connected with others/family/visitors/staff [] Distress [] Loneliness/isolation [] Abandonment Spirituality of Patient [] Person of Emelina [] Attends Rastafari of their Emelina [] Believes in Prayer [] Reads Bible or Druze materials [] There are Spiritual issues to be addressed Assemblyman Or Woman Interventions [x] Prayer [] Active listening [] Non-anxious presence [] Spiritual/emotional support [] Crisis/trauma care [] Spiritual counseling [] Bereavement support [] Provided bereavement packet [] Provided Bible/devotional materials [] Provided toy/stuffed animal, coloring book to patient or family member [] Provided Communion [] Anointing/Lawai [] Salvation [x] Completed spiritual assessment [] Other: Impact on Illness or Injury [] Angry [] Fearful [] Anxious [] Often cries [] Exhaustion [] Unable to work [] Unable to attend oriental orthodox [] Unable to walk/stand [] Unable to read [] Unable to drive [] Unable to eat/drink [] Unable to sleep [] Unable to be with family [] Patient intubated [] Other: Summary family present daily... patient handicapped.. billet assembler supplied comfort cover for patient... Time spent with patient 15 min
[2021-04-29] MEDS: dexamethasone 10 mg/mL INJ 6 MG IVP (11:20)
[2021-04-29 11:21] LABS: Glucose Point of Care 105 mg/dL (70-110)
--- NOTE | 2021-04-29 16:29 | PM.PN ---
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 we are not able to wean her off completely, media analyst recommended SIMV settings to reevaluate her today Insulin drip turned off which were started secondary to positive ketones and high triglycerides Change heparin to Eliquis renally dosed This morning she is on 30%, fentanyl 50 Precedex 0.6, as per her mother she had 1 bowel movement this morning Antipsychotics were added, she does carry history of generalized anxiety disorder Vitals/I&O/Wt Last Vital Signs Temp 97.6 F 04/29/21 11:31 Pulse 84 04/29/21 13:25 Resp 21 H 04/29/21 14:56 BP 119/77 04/29/21 12:31 Pulse Ox 99 04/29/21 14:56 04/29/21 04/29/21 04/29/21 06:59 14:59 22:59 Intake Total 371.369 / 7284.117 7921.161 / 1956.161 Output Total 2214 / 2214 Balance 371.369 / 1074.581 -257.839 / -257.839 Weight last 48 hrs Weight 71.078 kg Weight 71.214 kg Physical Exam Narrative: Bilateral assisted breath sounds SIMV ventilator settings Intubated and sedated Euvolemic Nonpitting edema of legs S1, S2 Assisted bilateral breath sounds Neuro exam limited Carroll catheter draining dark color renetta brown urine Urinary Catheter Management: Acrroll: Cath Placed During This Visit: yes, but has since been removed by the nurse Reason for Continuing Indwelling Catheter: Decision to DC Catheter Urinary Catheter Date of Insertion: 04/19/21 Urinary Catheter Time of Insertion: 01:00 Date Urinary Catheter Removed: 04/28/21 Time Urinary Catheter Discontinued: 10:30 Data : 04/29/21 07:50 04/29/21 07:50 Micro: Microbiology 04/28/21 21:29 Blood Culture - Preliminary Blood SPECIMEN COLLECTED 04/28/21 21:25 Blood Culture - Preliminary Blood SPECIMEN COLLECTED A&P Assessment and plan (1) Pulmonary embolism: Status: Acute (2) Abnormal transaminases: Status: Acute (3) Hypovolemic shock: Status: Acute (4) Aspiration pneumonia: Status: Acute (5) Acute respiratory distress syndrome (ARDS) due to 2019 novel coronavirus: Status: Acute (6) ATN (acute tubular necrosis): Status: Acute (7) COVID: Status: Acute (8) GODFREY (generalized anxiety disorder): Status: Acute (9) Hypertriglyceridemia: Status: Acute Plan Patient has failedmultiple weaning trials Currently on SIMV settings She does carry history of generalized anxiety disorder antipsychotics were added currently on Precedex 0.6, the dosage of sedating agents have been titrated off gradually This morning discontinued insulin and D5 Change heparin to Eliquis renally dosed for her PE Febrile episodes noted, for persistent febrile episodes will discuss with pulmonology if we should add antifungal at this point She had 1 bowel movement today Hemodialysis today Keep trending triglycerides Tube feeds at the bedside Abnormal transaminases no signs of cholecystitis, she does have cholelithiasis, transaminases down to normal, alk phosphatase improved Bilirubin 0.8 Guarded prognosis Electrolyte replenished as per nephro Full code This is her 10th day in the ICU, she was intubated on 04/21 Attestations Medical Necessity Statement*: Continue ICU management Time Spent in Patient Care: 15min Coding Level of Care Code Acute [employer] Agent for [facility] Fwd Diagnoses Pulmonary embolism I26.99 Abnormal transaminases R74.8 Hypovolemic shock R57.1 Aspiration pneumonia J69.0 Acute respiratory distress syndrome (ARDS) due to 2019 novel coronavirus U07.1; J80 ATN (acute tubular necrosis) N17.0 COVID U07.1 GODFREY (generalized anxiety disorder) F41.1 Hypertriglyceridemia E78.1
--- NOTE | 2021-04-29 17:09 | P.PN_ITS ---
Subjective Subjective: -Patient seen at bedside today -stll requiring low fio2 on ventilator; but compliance is better than yesterday - on fentanyl 50 and precedex only; moves her limbs but does not follow commands. - will DC seroquel; pt was started on zoloft yesterday - dced heparin drip and switched to elliquis - TG 300 and ketones negative - DC insulin drip - Today had another HD - 3L removed - Has low grade fever spikes - blood cultures negative; will send for sputum cultures - Labs and imaging reviewed Medications: Reviewed: Yes Medication Review Details: Current Medications Acetaminophen (Acetaminophen 325 Mg Tablet) 650 mg PO Q6H PRN PRN Reason: Mild/Mod Pain Or Temp >/= 101 Albuterol/Ipratropium (Ipratropium-Albuterol 3 Ml Neb) 3 ml INHALATION Q6H.RESPIRATORY [facility] Last Admin: 04/23/21 03:41 Dose: 3 ml Documented by: Calcium Carbonate (Calcium Carbonate 500 Mg Chew Tablet) 1,000 mg PO TID [facility] Last Admin: 04/22/21 21:31 Dose: 1,000 mg Documented by: Dexamethasone (Dexamethasone 10 Mg/Ml Inj) 6 mg IVP Q24H ANNIE Last Admin: 04/22/21 13:38 Dose: 6 mg Documented by: Dextrose (Dextrose 50% Syringe 50 Ml) 25 ml IVP ONCE PRN; Protocol PRN Reason: hypoglycemia protocol Last Admin: 04/20/21 00:25 Dose: 25 ml Documented by: Dextrose (Dextrose 50% Syringe 50 Ml) 50 ml IVP PRN PRN; Protocol PRN Reason: hypoglycemia protocol Last Admin: 04/19/21 20:35 Dose: 50 ml Documented by: Dextrose (Dextrose 50% Syringe 50 Ml) 25 ml IVP ONCE PRN; Protocol PRN Reason: hypoglycemia protocol Dextrose (Dextrose 50% Syringe 50 Ml) 50 ml IVP PRN PRN; Protocol PRN Reason: hypoglycemia protocol Ergocalciferol (Ergocalciferol (Vitamin D2) 50,000 Unit Capsule) 50,000 unit PO Q7D [facility] Last Admin: 04/21/21 12:04 Dose: 50,000 unit Documented by: Famotidine (Famotidine 20 Mg/2 Ml Inj) 20 mg IVP Q12H [facility] Last Admin: 04/23/21 01:38 Dose: 20 mg Documented by: Fenofibrate (Fenofibrate 145 Mg Tablet) 145 mg PO DAILY [facility] Last Admin: 04/22/21 09:06 Dose: 145 mg Documented by: Glucagon (Glucagon 1 Mg/Ml Inj 1 Ml) 1 mg IM ONCE PRN; Protocol PRN Reason: Adult Acute Hypoglycemia Prot Glucagon (Glucagon 1 Mg/Ml Inj 1 Ml) 1 mg IM ONCE PRN; Protocol PRN Reason: Adult Acute Hypoglycemia Prot. Heparin Sodium (Porcine) (Heparin 5,000 Unit/Ml Inj 1 Ml) 5,000 unit SUBCUT Q12H [facility] Last Admin: 04/21/21 04:54 Dose: Not Given Documented by: Dextrose (D5w) 500 mls @ 100 mls/hr IV ONCE PRN; Protocol PRN Reason: Adult Acute Hypoglycemia Prot Last Infusion: 04/20/21 18:12 Dose: Infused Documented by: Insulin Human Regular 250 unit (/ Sodium Chloride) 252.5 mls @ 0 mls/hr IV .Q0M [facility]; Protocol Last Titration: 04/22/21 21:29 Dose: 0 unit/hr, 0 mls/hr Documented by: Piperacillin Sod/Tazobactam (Sod 3.375 gm/ Sodium Chloride) 50 mls @ 12.5 mls/hr IV Q12H [facility]; Protocol Last Infusion: 04/23/21 05:37 Dose: Infused Documented by: Dextrose/Sodium Chloride (Dextrose 5%-Sod Chloride 0.45%) 1,000 mls @ 200 mls/hr IV .Q5H [facility] Last Admin: 04/23/21 03:14 Dose: Not Given Documented by: Norepinephrine Bitartrate 4 mg (/ Dextrose) 254 mls @ 0 mls/hr IV .Q0M [facility]; Protocol Last Titration: 04/21/21 22:00 Dose: Infused Documented by: Remdesivir 100 mg/ Sodium (Chloride) 100 mls @ 100 mls/hr IV Q24H [facility] Stop: 04/24/21 06:59 Last Admin: 04/23/21 05:05 Dose: 100 mls/hr Documented by: Norepinephrine Bitartrate 4 mg (/ Dextrose) 254 mls @ 0 mls/hr IV .Q0M [facility]; Protocol Last Titration: 04/22/21 05:16 Dose: 0 mcg/min, 0 mls/hr Documented by: Heparin Sodium/Sodium Chloride (Heparin Drip) 25,000 unit in 500 mls @ 0 mls/hr IV .Q0M ANNIE; Protocol Last Admin: 04/23/21 04:22 Dose: 20 unit/kg/hr, 24.39 mls/hr Documented by: dexmedeTOMIDine 0.9 % NaCL (Precedex) 400 mcg in 100 mls @ 0 mls/hr IV .Q0M ANNIE; Protocol Last Titration: 04/21/21 01:15 Dose: 0 mcg/kg/hr, 0 mls/hr Documented by: Albumin Human (Albumin) 12.5 gm in 50 mls @ 60 mls/hr IV PRN PRN PRN Reason: Hypotension and/or symptomatic Propofol (Diprivan) 1,000 mg in 100 mls @ 0 mls/hr IV .Q0M ANNIE; Protocol Last Titration: 04/23/21 04:45 Dose: 20 mcg/kg/min, 7.32 mls/hr Documented by: Fentanyl 2,500 mcg/ Sodium (Chloride) 250 mls @ 0 mls/hr IV .Q0M ANNIE; Protocol Last Admin: 04/23/21 03:52 Dose: 50 mcg/hr, 5 mls/hr Documented by: Dextrose (D5w) 500 mls @ 100 mls/hr IV ONCE PRN; Protocol PRN Reason: Adult Acute Hypoglycemia Prot Insulin Human Lispro (Insulin Lispro 100 Unit/1 Ml) 0 unit SUBCUT WM&BEDTIME ANNIE; Protocol Lactulose (Lactulose Oral Liq 20 Gm/30 Ml Udc) 10 gm PO DAILY PRN PRN Reason: CONSTIPATION Lorazepam (Lorazepam 2 Mg/Ml Inj 1 Ml) 2 mg IVP Q4H PRN PRN Reason: ANXIETY Last Admin: 04/21/21 00:01 Dose: 2 mg Documented by: Naloxone HCl (Naloxone 0.4 Mg/Ml Sdv) 0.1 mg IVP Q2M PRN PRN Reason: OPIATERV Ondansetron HCl (Ondansetron 2 Mg/Ml Sdv 2 Ml) 4 mg IVP Q8H PRN PRN Reason: vomiting, or N/V if npo Last Admin: 04/20/21 19:18 Dose: 4 mg Documented by: Senna/Docusate Sodium (Sennosides-Docusate Tablet) 2 tab PO DAILY [facility] Last Admin: 04/22/21 09:06 Dose: 2 tab Documented by: Vitals/I&O/Wt Last Vital Signs Temp 97.6 F 04/29/21 11:31 Pulse 79 04/29/21 16:44 Resp 20 H 04/29/21 16:45 BP 114/78 04/29/21 16:30 Pulse Ox 98 04/29/21 16:45 04/29/21 04/29/21 04/29/21 06:59 14:59 22:59 Intake Total 371.369 / 3249.357 8652.161 / 1956.161 216.125 / 2172.286 Output Total 2214 / 2214 Balance 371.369 / 1074.581 -257.839 / -257.839 216.125 / -41.714 Weight last 48 hrs Weight 156 lb 11.2 oz Weight 157 lb Physical Exam Narrative: PHYSICAL EXAM: General: lying in bed, sedated and intubated. HEENT:NCAT, PERRLA, EOMI Neck: Supple Lungs: Still has bilateral diffuse crackles but improved Heart: s1/s2, RRR Abd: soft, NT, ND, BS + Normoactive Extremities: No edema [employer] PL[employer]ING: sedated and limited [employer] exam possible. SKIN: no rash LDA: # HD Cath : Right internal jugular 04/20/2021 Urinary Catheter Management: Carroll: Cath Placed During This Visit: yes, but has since been removed by the nurse Reason for Continuing Indwelling Catheter: Decision to DC Catheter Urinary Catheter Date of Insertion: 04/19/21 Urinary Catheter Time of Insertion: 01:00 Date Urinary Catheter Removed: 04/28/21 Time Urinary Catheter Discontinued: 10:30 Data : 04/29/21 07:50 04/29/21 07:50 Other Labs: Radiology Impressions Abdomen Ultrasound 04/19/21 02:25 IMPRESSION: 1. Cholelithiasis. Chest CT 04/19/21 02:25 IMPRESSION: 1. Nonspecific gallbladder distention. No calcified stones. 2. Mild retroperitoneal stranding about the pancreas, correlate with pancreatic enzymes. 3. Bilateral pulmonary infiltrates which may be seen with atypical pneumonia. Chest/Abdomen/Pelvis CT 04/22/21 07:35 IMPRESSION: 1. Proximal main pulmonary arteries are normal. A few filling defects in the left lower lobe pulmonary artery suspicious for pulmonary embolus. Images degraded by breathing artifact. 2. Endotracheal tube with tip above the tracey. Enteric tube with tip below the diaphragm in the distal stomach. 3. Air-fluid level in the stomach. Air distended transverse colon compatible with adynamic ileus. 4. Diffuse bilateral pulmonary infiltrates have improved in the lung bases but progressed in the perihilar regions and upper lobes with partial confluence and consolidation in the lung apices with air bronchograms. 5. Small amount of pancreatic edema is similar to previous. Recommend ruth elation for pancreatitis. 6. Enlarged kidneys bilaterally with heterogeneous enhancement. Correlation for renal insufficiency. No hydronephrosis. 7. Small amount of free fluid in the pelvis. Diffuse body wall anasarca. Message left for Paresh Reese MD at 04/22/2021 11:55 AM. Gallbladder Ultrasound 04/25/21 07:53 IMPRESSION: 1. Slightly hyperechoic liver, which can be seen with fatty infiltration or hepatocellular disease. 2. Nonspecific hepatic hypoechoic lesion adjacent to the gallbladder, which may represent fat sparing. Further evaluation with contrast enhanced abdomen MRI should be considered in the adequate clinical setting. 3. Cholelithiasis without evidence of cholecystitis. 4. Right pleural effusion. Head CT 04/25/21 14:00 IMPRESSION: 1. No acute intracranial abnormality. 2. Gtyd-sb-wqnjkqsv sinusitis. 3. Bilateral mastoiditis and right otitis media. Abdomen/Pelvis CT 04/25/21 14:08 IMPRESSION: 1. Bibasilar opacities may be aspiration related, ARDS or pneumonia. 2. Possible contrast nephropathy, correlate clinically. 3. Trace ascites and mild to moderate anasarca. 4. Mild residual pancreatitis. KUB X-Ray 04/26/21 14:33 IMPRESSION: No acute findings. Chest X-Ray 04/29/21 06:52 IMPRESSION: Endotracheal tube tip location as above. Otherwise stable abnormal chest. Laboratory Results WBC 14.0 10^3/uL (4.0-10.0) H 04/29/21 07:50 Corrected WBC 8.5 10^3/cmm (4.8-10.8) 04/23/21 18:20 RBC 2.81 10^6/uL (4.1-5.3) L 04/29/21 07:50 Hgb 8.6 g/dL (11.5-15.3) L 04/29/21 07:50 Hct 26.5 % (37.0-47.0) L 04/29/21 07:50 MCV 94.3 fl (81-99) 04/29/21 07:50 MCH 30.6 pg (28.0-34.0) 04/29/21 07:50 MCHC 32.5 g/dL (30.0-36.0) 04/29/21 07:50 RDW 15.7 % (12.1-15.1) H 04/29/21 07:50 Plt Count 128 10^3/cmm (130-400) L 04/29/21 07:50 MPV 12.7 fL (7.4-10.4) H 04/29/21 07:50 Neut % (Auto) 64.9 % 04/28/21 09:38 Lymph % (Auto) Not Reportable 04/29/21 07:50 [place] % (Auto) Not Reportable 04/29/21 07:50 Eos % (Auto) 1.3 % 04/28/21 09:38 Baso % (Auto) 0.6 % 04/28/21 09:38 Neut # (Auto) 12.51 10^3/uL (1.8-7.7) H 04/28/21 09:38 Lymph # (Auto) Not Reportable 04/29/21 07:50 [place] # (Auto) Not Reportable 04/29/21 07:50 Eos # (Auto) 0.3 10^3/uL (0.0-0.8) 04/28/21 09:38 Baso # (Auto) 0.1 10^3/uL (0.0-0.1) 04/28/21 09:38 Nucleated RBC % (auto) 1.8 % 04/28/21 09:38 Total Counted 100 (0-100) 04/29/21 07:50 Atypical Lymphs % 5.0 % (0-5) 04/29/21 07:50 Absolute Neutrophils 7.6 10^3/cmm (1.4-6.5) H 04/29/21 07:50 Segmented Neutrophils 51 % 04/29/21 07:50 Abs Segm Neuts (Man) 7.1 10/cmm (1.6-7.1) 04/29/21 07:50 Band Neutrophils 3.0 % 04/29/21 07:50 Abs Band Neuts (Man) 0.4 10^3/cmm (0.0-1.2) 04/29/21 07:50 Absolute Lymphocytes 5.2 10^3/cmm (1.2-3.4) H 04/29/21 07:50 Lymphocytes (Manual) 32 % 04/29/21 07:50 Monocytes (Manual) 0.0 % 04/29/21 07:50 Absolute Monocytes 0.0 10^3/cmm (0.1-0.6) L 04/29/21 07:50 Eosinophils (Manual) 2 % 04/29/21 07:50 Absolute Eosinophils 0.2 10^3/cmm (0.0-0.7) 04/29/21 07:50 Basophils (Manual) 0.0 % 04/29/21 07:50 Absolute Basophils 0.0 10^3/cmm (0.0-0.2) 04/29/21 07:50 Metamyelocytes 5.0 % 04/29/21 07:50 Myelocytes 2.0 % 04/29/21 07:50 Nucleated RBCs 3.0 /100WBC (0-1) H 04/29/21 07:50 Nucleated RBCs # 0.3 /100WBC 04/28/21 09:38 Platelet Estimate Normal (Normal) 04/29/21 07:50 Hypochromasia 2+ H 04/23/21 18:20 Basophilic Stippling Trace 04/21/21 Unknown Anisocytosis Trace 04/29/21 07:50 PT 16.40 SECONDS (12.1-14.9) H 04/19/21 03:00 INR 1.28 (0.8-1.2) H 04/19/21 03:00 APTT 66.6 SECONDS (23.9-36.7) H 04/29/21 06:05 Fibrinogen 310 mg/dL (174-498) 04/19/21 03:00 Fibrin Degrad Products Pos, 10-40 ug/mL (NEG) H 04/19/21 03:00 D-Dimer 6.68 ug/mIFEU (0-0.59) H 04/21/21 03:50 Specimen Type Arterial 04/29/21 08:24 Sample Site Radial, left 04/29/21 08:24 ABG pH 7.50 (7.35-7.45) H 04/29/21 08:24 ABG pCO2 38.8 mmHg (35-45) 04/29/21 08:24 ABG pO2 63.5 mmHg (80.0-100.0) L 04/29/21 08:24 ABG HCO3 30.1 mmol/L (22-26) H 04/29/21 08:24 ABG O2 Saturation 93.4 04/29/21 08:24 ABG Base Excess 6.4 mmol/L (-2.0-2.0) H 04/29/21 08:24 Dennis Test Pos 04/29/21 08:24 A-a O2 Gradient 13.3 mmHg (5-10) H 04/29/21 08:24 Hematocrit 31.4 % (37-47) L 04/29/21 08:24 Hgb O2 Saturation 91.2 % (95-100) L 04/29/21 08:24 Carboxyhemoglobin 1.3 %THgb (0.4-20.1) 04/29/21 08:24 Methemoglobin 1.1 % (0.4-1.5) 04/29/21 08:24 Total Hemoglobin 10.2 g/dL (12-16) L 04/29/21 08:24 Sodium 136.0 mmol/L (131-143) 04/29/21 08:24 Potassium 3.0 mmol/L (3.5-5.0) L 04/29/21 08:24 Glucose 110.0 mg/dL (70-115) 04/29/21 08:24 Ionized Calcium 1.1 mmol/L (1.1-1.4) 04/29/21 08:24 Respiration Rate 20.0 % 04/23/21 05:25 O2 Delivery Device Vent 04/29/21 08:24 Mechanical Rate 20.0 04/26/21 04:00 FiO2 30.0 % 04/29/21 08:24 Tidal Volume 0.32 04/29/21 08:24 PEEP 6.0 cmH20 04/29/21 08:24 Marshmallow Maker ID Bd 04/29/21 08:24 Sodium 128 mmol/L (136-145) L 04/29/21 07:50 Potassium 3.4 mmol/L (3.5-5.1) L 04/29/21 07:50 Chloride 93 mmol/L (98-107) L 04/29/21 07:50 Carbon Dioxide 24 mmol/L (22-29) 04/29/21 07:50 Anion Gap 14.4 (5-19) 04/29/21 07:50 BUN 46 mg/dL (6-20) H 04/29/21 07:50 Creatinine 3.1 mg/dL (0.5-0.9) H 04/29/21 07:50 GFR Calculation 16.7 mL/min (90-130) L 04/29/21 07:50 Glucose 103 mg/dL (65-115) 04/29/21 07:50 POC Glucose 178 mg/dL (70-110) H 04/29/21 17:15 Estimat Average Glucose 134 04/18/21 22:48 Hemoglobin A1c 6.3 % (4.0-6.0) H 04/18/21 22:48 Calculated Osmolality 278 mOsm/kg (285-295) L 04/29/21 07:50 Lactic Acid 5.1 mmol/L (0.5-2.2) H* 04/20/21 03:20 Lactic Acid (Sepsis) 4.7 mmol/L (0.5-2.2) H* 04/20/21 06:47 Lactate 1.4 mmol/L (0.5-2.2) 04/26/21 08:34 Uric Acid 12.0 mg/dL (2.4-5.7) H 04/20/21 09:20 Calcium 8.2 mg/dL (8.5-10.5) L 04/29/21 07:50 Phosphorus 3.7 mg/dL (2.5-4.5) 04/24/21 03:59 Magnesium 1.9 mg/dL (1.7-2.3) 04/29/21 07:50 Iron 37 ug/dL (37-145) 04/23/21 06:20 TIBC 157 mcg/dl 04/23/21 06:20 % Saturation 23.5 % (20-50) 04/23/21 06:20 Unsat Iron Binding 120 ug/dL (112-347) 04/23/21 06:20 Ferritin 481 ng/mL (15-150) H 04/22/21 00:32 Total Bilirubin 0.8 mg/dL (0.15-1.2) 04/29/21 07:50 GGT 108 U/L (5-36) H 04/19/21 03:00 AST 15 U/L (0-32) 04/29/21 07:50 ALT 12 U/L (0-33) 04/29/21 07:50 Alkaline Phosphatase 264 IU/L (35-105) H 04/29/21 07:50 Lactate Dehydrogenase 725 U/L (135-214) H 04/26/21 05:45 Creatine Kinase 79 U/L (26-192) 04/19/21 03:00 Troponin T Baseline 31 ng/L (0-10) H 04/20/21 16:45 Troponin T 120 Minute 31.12 ng/L (0-10) H 04/20/21 19:44 Delta Troponin T 0.12 ABS# (0-10) 04/20/21 19:44 Troponin T Hi Sens 6Hr 27.06 ng/L (0-10) H 04/21/21 03:50 Troponin T Hi Sens 6Hr Delta -3.94 ng/L (0-12) L 04/21/21 03:50 C-Reactive Protein 100.4 mg/L (0.0-4.9) H 04/26/21 05:45 Total Protein 5.2 g/dL (6.6-8.7) L 04/29/21 07:50 Albumin 2.5 g/dL (3.5-5.2) L 04/29/21 07:50 Globulin 2.7 g/dL (1.3-4.6) 04/29/21 07:50 Triglycerides 301 mg/dL (0-150) H 04/29/21 07:50 Triglycerides Cancelled 04/29/21 07:50 Cholesterol 322 mg/dL (0-200) H 04/19/21 03:00 LDL Cholesterol Direct 82 mg/dL (0-100) 04/28/21 09:38 LDL Cholesterol, Calc Not Reportable 04/19/21 03:00 HDL Cholesterol 12 mg/dL (60-100) L 04/19/21 03:00 LDL/HDL Ratio Not Reportable 04/19/21 03:00 Cholesterol/HDL Ratio 26.83 mg/dL (0.0-4.40) H 04/19/21 03:00 Lipase 15 U/L (13-60) 04/25/21 04:34 25-OH Vitamin D Total 7 ng/mL (30-100) L 04/21/21 03:50 1,25 Dihydroxy Vit D2 <8 pg/mL 04/20/21 03:20 1,25 Dihydroxy Vit D3 <8 pg/mL 04/20/21 03:20 Procalcitonin 0.60 ng/mL (0-0.5) H 04/25/21 04:34 TSH 1.02 uIU/mL (0.27-4.20) 04/19/21 03:00 HCG, Qual Negative (Negative) 04/18/21 22:48 PTH Intact 274.7 pg/mL (15-65) H 04/21/21 03:50 Calcium (PTH Intact) 6.7 mg/dL (8.5-10.5) L 04/21/21 03:50 Urine Color Yellow (Yellow) 04/18/21 23:19 Urine Appearance Clear (CLEAR) 04/18/21 23:19 Urine pH 5 (5-7) 04/18/21 23:19 Ur Specific [place] 1.020 (1.005-1.030) 04/18/21 23:19 Urine Protein 3+ (Negative) H 04/18/21 23:19 Urine Glucose (UA) 1+ (Normal) H 04/18/21 23:19 Urine Ketones 1+ (Negative) H 04/18/21 23:19 Urine Blood 2+ (Negative) H 04/18/21 23:19 Urine Nitrate Negative (Negative) 04/18/21 23:19 Urine Bilirubin 1+ (Negative) H 04/18/21 23:19 Urine Urobilinogen 1 mg/dL (Negative) H 04/18/21 23:19 Ur Leukocyte Esterase Negative (Negative) 04/18/21 23:19 Urine RBC 5-10 /hpf (0-2) H 04/18/21 23:19 Urine WBC 0-4 /hpf (0-5) H 04/18/21 23:19 Ur Eosinophil Smear 0 (0-0) 04/19/21 05:35 Ur Squamous Epith Cells 10-15 /hpf (0-5) H 04/18/21 23:19 Amorphous Sediment 3+ /hpf 04/18/21 23:19 Urine Bacteria 2+ /hpf (NONE) H 04/18/21 23:19 Urine Eosinophils No eosinophils seen 04/19/21 05:35 Ur Random Creatinine 128 mg/dL (20-275) 04/19/21 05:35 Ur Random Albumin 46 % 04/19/21 05:35 U Random Total Protein 727 mg/dL (5-24) H 04/19/21 05:35 Ur Random Sodium 57 mmol/L 04/19/21 05:35 Ur Random Potassium 27 mmol/L 04/19/21 05:35 Ur Random Chloride 50 mmol/L 04/19/21 05:35 Urine Creatinine 139 mg/dL (28-217) 04/19/21 05:35 Protein/Creatinin Ratio 5680 mg/g creat (21-161) H 04/19/21 05:35 Protein/Creat Ratio 24h 5.680 (0.021-0.161) H 04/19/21 05:35 U Random o-2-Qwfdhmki % 4 % 04/19/21 05:35 U Random a-6-Nnbnyprg % 12 % 04/19/21 05:35 U Random Beta Globulin 21 % 04/19/21 05:35 U Random Gamma Glob 18 % 04/19/21 05:35 U Abnormal Prot Band 1 Not Reportable 04/19/21 05:35 U Abnormal Prot Band 2 Not Reportable 04/19/21 05:35 U Abnormal Prot Band 3 Not Reportable 04/19/21 05:35 Urine PEP Interpret See note 04/19/21 05:35 Vancomycin Trough 20.4 ug/mL (10-15) H 04/20/21 03:20 Salicylates < 0.3 mg/dL (3-10) L 04/19/21 03:00 Acetaminophen < 5.0 ug/mL (10-30) L 04/19/21 03:00 Ethylene Glycol <10.0 mg/L () 04/19/21 03:00 Volat Analys Perform On Whole blood 04/19/21 03:00 Ethyl Alcohol < 10 mg/dL (0-10) 04/19/21 03:00 Urine Ethyl Alcohol Cancelled 04/19/21 05:35 Methyl Alcohol Level None detected mg/dL 04/19/21 03:00 Serum Ketones Negative (Negative) 04/29/21 07:50 Coronavirus 229E (PCR) Not detected (NOT DETECT) 04/19/21 05:35 Hepatitis A IgM Ab Non-reactive (Nonreactive) 04/19/21 03:00 Hep Bs Antigen Non-reactive (Nonreactive) 04/20/21 03:20 Hep Bs Antibody 3.5 (11.5-1000) L 04/20/21 03:20 Hep B Core IgM Ab Non-reactive (Nonreactive) 04/19/21 03:00 Hepatitis C Antibody Non-reactive (Nonreactive) 04/20/21 03:20 HIV 1&2 Ab & HIV 1 Ag Non-reactive (Non-Reactiv) 04/19/21 03:00 HIV 1&2 Antibody Non-reactive (Non-Reactiv) 04/19/21 03:00 Influenza Type A Ag Negative (Negative) 04/19/21 05:35 Influenza Type B Ag Negative (Negative) 04/19/21 05:35 SARS-CoV-2 (PCR) Detected (NOT DETECT) A 04/19/21 05:35 SARS-CoV-2 Ag (Rapid) Negative (Negative) 04/18/21 21:49 [facility] Test Reference See comment 04/19/21 05:35 Blood Type O Positive 04/23/21 20:40 Rho(D) Type Positive 04/23/21 20:40 Antibody Screen Negative 04/23/21 20:40 Crossmatch See Detail 04/23/21 20:40 Micro: Microbiology 04/28/21 21:29 Blood Culture - Preliminary Blood SPECIMEN COLLECTED 04/28/21 21:25 Blood Culture - Preliminary Blood SPECIMEN COLLECTED A&P Assessment and plan (1) Acute respiratory distress syndrome (ARDS) due to 2019 novel coronavirus: Status: Acute (2) COVID: Status: Acute (3) Increased anion gap metabolic acidosis: Status: Acute (4) Acute encephalopathy: Status: Acute (5) Acute pancreatitis: Status: Acute (6) Mild mental handicap: Status: Acute (7) GODFREY (generalized anxiety disorder): Status: Acute (8) Essential hypertension: Status: Acute (9) Hypertriglyceridemia: Status: Acute (10) Leukocytosis: Status: Acute (11) Aspiration pneumonia: Status: Acute (12) Hypovolemic shock: Status: Acute Plan # Acute hypoxic respiratory failure in patient with COVID-19 pneumonia and fluid overload secondary to TONY -possible ARDS and patient with COVID-19 PCR positive/pancreatitis; subsegmental PE on CT #TONY due to hypovolemia-ischemic ATN/MAMI/Covid TONY-currently on HD #Hypovolemic shock secondary to pancreatitis-currently off pressors #Pancreatitis secondary to hypertriglyceridemia #Generalized anxiety disorder #Leukocytosis-secondary to dehydration versus possible aspiration pneumonia - with h/o vomiting -Intubated on 04/20/2021 night after an episode of vomiting while she was on BiPAP -ABG 7.50/38/63/30/93% on CMV 20/320/30%/6; -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; compliance improved today and plateau pressures 23; tolerating SIMV -On low-dose fentanyl and Precedex only; Opens eyes and still does not follow commands -Ativan as needed -Plan is to continue to keep on low-dose sedation and do awakening trial - DC Seroquel 50 twice daily -Ketones negative, triglycerides 300-DC insulin drip -It has been challenging to taper off sedation, coordinate mentation as patient becomes extremely tachypneic and desaturates -Repeat CT head did not show any acute intracranial abnormality/there is mild to moderate sinusitis with bilateral mastoiditis and right otitis media -Completed remdesivir and currently on dexamethasone; received Zosyn for possible aspiration pneumonia for 5 days and later changed to imipenem since 04/25/2021-we will discontinue antibiotics on 04/30/2021--Off pressors -Continue monitoring respiratory status and saturations closely -CT angiogram subsegmental PE; bilateral venous Doppler negative for DVT-on heparin drip - Switch to Elliquis -LFTs trending down including total bilirubin ultrasound: Gallstones with no gallbladder wall thickening or pericolic cystic fluid. There is a hypoechoic lesion in posterior mid abdominal ultrasound -Repeat CT abdomen pelvis 04/25/2021: Trace ascites with mild residual pancreatitis - Continue tube feeding -monitor FSBS closely and adjust IV insulin accordingly -Hemodialysis as per renal -Patient's family updated at bedside -Prognosis guarded Recommendations conveyed to hospitalist, RN, RT taking care of the patient Attestations Medical Necessity Statement*: Hypoxic respiratory failure secondary to ARDS due to COVID-19 pneumonia/pancreatitis-fluid overload due to TONY and patient with underlying Covid pneumonia and aspiration pneumonia-requiring mechanical intubation and hemodialysis Time Spent in Patient Care: Greater than 35 minutes (>than 50% of time spent in counselling and/or direct pt care on unit) . Critical Care Time: The high probability of a clinically significant, sudden or life threatening deterioration of the patient's [neurological, pulmonary, renal system(s) required my full and direct attention, intervention and personal management. The critical care time is as shown. This time is in addition to time spent performing any reported procedures but includes the following: [x] Data and vital sign review and interpretation [x] Patient assessment, examination and intervention [x] Documentation [x] Medication orders and management Critical Care Time (min): 45 Coding Level of Care Code Established Pt Acute Technical Report Writer for Chg Fwd Patient Type Established History Comprehensive Exam Comprehensive Medical Decision Making High Complexity Diagnoses Acute respiratory distress syndrome (ARDS) due to 2019 novel coronavirus U07.1; J80 COVID U07.1 Increased anion gap metabolic acidosis E87.2 Acute encephalopathy G93.40 Acute pancreatitis K85.90 Mild mental handicap F70 GODFREY (generalized anxiety disorder) F41.1 Essential hypertension I10 Hypertriglyceridemia E78.1 Leukocytosis D72.829 Aspiration pneumonia J69.0 Hypovolemic shock R57.1 Time Spent (min) 45
[2021-04-29 17:18] LABS: Glucose Point of Care 178 mg/dL (70-110)
[2021-04-29] MEDS: insulin lispro 100 unit/1 mL SUBCUT (17:41)
--- NOTE | 2021-04-29 18:06 | PC.NURSE ---
Shift Note Frequent safety and comfort rounds continue. Orders and/or nursing care completed as indicated. Patient monitored for response to intervention and treatment(s). Education provided includes treatment plan, medications, and extubation goals. Mother at bedside verbalizes understanding. VSS. Fentanyl off. precedex infusing per orders. Will continue to monitor.
[2021-04-29 19:41] LABS: Glucose Point of Care 141 mg/dL (70-110)
[2021-04-29 21:03] LABS: Glucose Point of Care 139 mg/dL (70-110)
[2021-04-29] MEDS: apixaban 5 mg Tablet 2.5 MG PO (21:04)
[2021-04-29] MEDS: metoprolol tartrate 25 mg Tablet PO (21:04)
[2021-04-30] VITALS (60 sets, daily range): BP systolic 100–160; BP diastolic 68–98; PULSE 79–130; RESP 17–33; TEMP 36.8–38.4; O2SAT 91–100
[2021-04-30] MEDS: famotidine 20 mg/2 mL INJ IVP ×2 (02:02→13:46)
--- NOTE | 2021-04-30 02:54 | PC.NURSE ---
Addendum entered by Aditi Bauman RN 04/30/21 21:51: This nurse witnessed waste of 160 mls of fentanyl. Original Note: 160 mLs of Fentanyl wasted with second RN witness.
[2021-04-30 04:19] LABS: Basophils # 0.1 10^3/uL (0.0-0.1); Basophils % 0.7 %; Eosinophils # 0.3 10^3/uL (0.0-0.8); Eosinophils % 1.3 %; Hematocrit 31.8 % (37.0-47.0); Hemoglobin 9.9 g/dL (11.5-15.3); Lymphocytes % 23.5 %; Mean Corpuscular HGB Conc 31.1 g/dL (30.0-36.0); Mean Corpuscular Hemoglobin 30.7 pg (28.0-34.0); Mean Corpuscular Volume 98.8 fl (81-99); Mean Platelet Volume 12.6 fL (7.4-10.4); Monocytes # 1.2 10^3/uL (0.2-0.9); Monocytes % 5.5 %; Neutrophils # 13.12 10^3/uL (1.8-7.7); Neutrophils % 62.2 %; Nucleated Red Blood Cells # 0.3 /100WBC; Nucleated Red Blood Cells % 1.4 %; Platelet Count 156 10^3/cmm (130-400); Red Blood Count 3.22 10^6/uL (4.1-5.3); Red Cell Distribution Width 16.4 % (12.1-15.1); White Blood Count 21.1 10^3/uL (4.0-10.0)
[2021-04-30 04:37] LABS: Anion Gap 16.6 (5-19); Blood Urea Nitrogen 39 mg/dL (6-20); Calcium 8.7 mg/dL (8.5-10.5); Carbon Dioxide 22 mmol/L (22-29); Chloride 98 mmol/L (98-107); Glomerular Filtration Rate 17.4 mL/min (90-130); Glucose 114 mg/dL (65-115); Lactate Dehydrogenase 491 U/L (135-214); Osmolality Calculated 286 mOsm/kg (285-295); Potassium 3.6 mmol/L (3.5-5.1); Sodium 133 mmol/L (136-145)
[2021-04-30 04:42] LABS: Slide Review Slide Review Perform
[2021-04-30 04:43] LABS: Procalcitonin 0.43 ng/mL (0-0.5)
[2021-04-30] MEDS: ondansetron 2 mg/ML SDV 2 mL 4 MG IVP (04:58)
--- NOTE | 2021-04-30 05:08 | PC.NURSE ---
Pt vomited again despite tube feedings being turned off. Pt gagging on ETT. Precedex increased. Pt's mother encouraged to limit stimulation to promote relaxation.
[2021-04-30 05:26] LABS: ABG PCO2 33.9 mmHg (35-45); ABG PH Result 7.53 (7.35-7.45); Arterial Blood Gas Hematocrit 28.7 % (37-47); Base Excess ABG 5.1 mmol/L (-2.0-2.0); Blood Gas Allen Test Pos; Blood Gas Sample Type Arterial; HCO3 ABG 28.1 mmol/L (22-26); PO2 ABG 85.2 mmHg (80.0-100.0)
[2021-04-30 05:28] LABS: Blood Gas Operator Identificat JB; Blood Gas Sample Site Radial, right; Blood Gas Tidal Volume 0.32; Oxygen Device VENT
[2021-04-30] MEDS: ipratropium-albuterol 3 mL Neb INHALATION ×5 (05:48→20:33)
--- NOTE | 2021-04-30 06:13 | XR_ITS ---
WS: [id number] XR chest 1V portable [id number] REASON FOR EXAM: Intubated/follow up covid FINDINGS: Endotracheal tube at the level of the tracey. Nasogastric tube overlying the fundus of the stomach. Properly positioned right internal jugular dual-lumen catheter, tip at the cavoatrial junction. Diffuse pulmonary infiltrates appear somewhat less confluent and dense than on the previous examinati on 04/29/2021. No new findings. XR/XR chest 1V portable [id number] IMPRESSION: Diffuse lung opacities with some improvement.
[2021-04-30 07:18] LABS: Glucose Point of Care 105 mg/dL (70-110)
[2021-04-30] MEDS: calcium carbonate 500 mg Chew Tablet 1000 MG PO ×3 (08:20→20:09)
[2021-04-30] MEDS: fenofibrate 145 mg Tablet PO (08:20)
[2021-04-30] MEDS: sennosides-docusate Tablet 2 TAB PO (08:20)
[2021-04-30] MEDS: predniSONE 20 mg Tablet 30 MG PO (08:21)
[2021-04-30] MEDS: metoprolol tartrate 25 mg Tablet PO ×2 (08:22→20:56)
[2021-04-30] MEDS: apixaban 5 mg Tablet 2.5 MG PO (08:22)
[2021-04-30] MEDS: sertraline 50 mg Tablet PO (08:23)
[2021-04-30] MEDS: dexmedeTOMIDine 0.9 % NaCL 400 MCG/100 ML PREMIX 12.19 MCG IV (09:04)
--- NOTE | 2021-04-30 09:27 | PC.SOCIAL ---
IMM Update Pg. 2 of IMM not updated at this time;patient remains intubated at this time.
[2021-04-30] MEDS: quetiapine 25 mg Tablet PO (09:58)
[2021-04-30 11:37] LABS: Glucose Point of Care 144 mg/dL (70-110)
[2021-04-30] MEDS: acetaminophen 325 mg Tablet 650 MG PO (11:37)
[2021-04-30] MEDS: insulin lispro 100 unit/1 mL SUBCUT ×2 (11:37→17:12)
--- NOTE | 2021-04-30 11:50 | PM.PN ---
Subjective Subjective: Precious appears to be a little bit more awake today than yesterday. Minimal urine output, will bladder scan today. FiO2 30%, not on vasopressor agents. Dialysis unremarkable yesterday. Medications: Reviewed: Yes Medication Review Details: Current Medications Acetaminophen (Acetaminophen 325 Mg Tablet) 650 mg PO Q6H PRN PRN Reason: Mild/Mod Pain Or Temp >/= 101 Albuterol/Ipratropium (Ipratropium-Albuterol 3 Ml Neb) 3 ml INHALATION Q6H.RESPIRATORY [facility] Last Admin: 04/23/21 03:41 Dose: 3 ml Documented by: Calcium Carbonate (Calcium Carbonate 500 Mg Chew Tablet) 1,000 mg PO TID [facility] Last Admin: 04/22/21 21:31 Dose: 1,000 mg Documented by: Dexamethasone (Dexamethasone 10 Mg/Ml Inj) 6 mg IVP Q24H [facility] Last Admin: 04/22/21 13:38 Dose: 6 mg Documented by: Dextrose (Dextrose 50% Syringe 50 Ml) 25 ml IVP ONCE PRN; Protocol PRN Reason: hypoglycemia protocol Last Admin: 04/20/21 00:25 Dose: 25 ml Documented by: Dextrose (Dextrose 50% Syringe 50 Ml) 50 ml IVP PRN PRN; Protocol PRN Reason: hypoglycemia protocol Last Admin: 04/19/21 20:35 Dose: 50 ml Documented by: Dextrose (Dextrose 50% Syringe 50 Ml) 25 ml IVP ONCE PRN; Protocol PRN Reason: hypoglycemia protocol Dextrose (Dextrose 50% Syringe 50 Ml) 50 ml IVP PRN PRN; Protocol PRN Reason: hypoglycemia protocol Ergocalciferol (Ergocalciferol (Vitamin D2) 50,000 Unit Capsule) 50,000 unit PO Q7D [facility] Last Admin: 04/21/21 12:04 Dose: 50,000 unit Documented by: Famotidine (Famotidine 20 Mg/2 Ml Inj) 20 mg IVP Q12H [facility] Last Admin: 04/23/21 01:38 Dose: 20 mg Documented by: Fenofibrate (Fenofibrate 145 Mg Tablet) 145 mg PO DAILY [facility] Last Admin: 04/22/21 09:06 Dose: 145 mg Documented by: Glucagon (Glucagon 1 Mg/Ml Inj 1 Ml) 1 mg IM ONCE PRN; Protocol PRN Reason: Adult Acute Hypoglycemia Prot Glucagon (Glucagon 1 Mg/Ml Inj 1 Ml) 1 mg IM ONCE PRN; Protocol PRN Reason: Adult Acute Hypoglycemia Prot. Heparin Sodium (Porcine) (Heparin 5,000 Unit/Ml Inj 1 Ml) 5,000 unit SUBCUT Q12H [facility] Last Admin: 04/21/21 04:54 Dose: Not Given Documented by: Dextrose (D5w) 500 mls @ 100 mls/hr IV ONCE PRN; Protocol PRN Reason: Adult Acute Hypoglycemia Prot Last Infusion: 04/20/21 18:12 Dose: Infused Documented by: Insulin Human Regular 250 unit (/ Sodium Chloride) 252.5 mls @ 0 mls/hr IV .Q0M ANNIE; Protocol Last Titration: 04/22/21 21:29 Dose: 0 unit/hr, 0 mls/hr Documented by: Piperacillin Sod/Tazobactam (Sod 3.375 gm/ Sodium Chloride) 50 mls @ 12.5 mls/hr IV Q12H ANNIE; Protocol Last Infusion: 04/23/21 05:37 Dose: Infused Documented by: Dextrose/Sodium Chloride (Dextrose 5%-Sod Chloride 0.45%) 1,000 mls @ 200 mls/hr IV .Q5H [facility] Last Admin: 04/23/21 03:14 Dose: Not Given Documented by: Norepinephrine Bitartrate 4 mg (/ Dextrose) 254 mls @ 0 mls/hr IV .Q0M ANNIE; Protocol Last Titration: 04/21/21 22:00 Dose: Infused Documented by: Remdesivir 100 mg/ Sodium (Chloride) 100 mls @ 100 mls/hr IV Q24H [facility] Stop: 04/24/21 06:59 Last Admin: 04/23/21 05:05 Dose: 100 mls/hr Documented by: Norepinephrine Bitartrate 4 mg (/ Dextrose) 254 mls @ 0 mls/hr IV .Q0M ANNIE; Protocol Last Titration: 04/22/21 05:16 Dose: 0 mcg/min, 0 mls/hr Documented by: Heparin Sodium/Sodium Chloride (Heparin Drip) 25,000 unit in 500 mls @ 0 mls/hr IV .Q0M ANNIE; Protocol Last Admin: 04/23/21 04:22 Dose: 20 unit/kg/hr, 24.39 mls/hr Documented by: dexmedeTOMIDine 0.9 % NaCL (Precedex) 400 mcg in 100 mls @ 0 mls/hr IV .Q0M ANNIE; Protocol Last Titration: 04/21/21 01:15 Dose: 0 mcg/kg/hr, 0 mls/hr Documented by: Albumin Human (Albumin) 12.5 gm in 50 mls @ 60 mls/hr IV PRN PRN PRN Reason: Hypotension and/or symptomatic Propofol (Diprivan) 1,000 mg in 100 mls @ 0 mls/hr IV .Q0M ANNIE; Protocol Last Titration: 04/23/21 04:45 Dose: 20 mcg/kg/min, 7.32 mls/hr Documented by: Fentanyl 2,500 mcg/ Sodium (Chloride) 250 mls @ 0 mls/hr IV .Q0M ANNIE; Protocol Last Admin: 04/23/21 03:52 Dose: 50 mcg/hr, 5 mls/hr Documented by: Dextrose (D5w) 500 mls @ 100 mls/hr IV ONCE PRN; Protocol PRN Reason: Adult Acute Hypoglycemia Prot Insulin Human Lispro (Insulin Lispro 100 Unit/1 Ml) 0 unit SUBCUT WM&BEDTIME ANNIE; Protocol Lactulose (Lactulose Oral Liq 20 Gm/30 Ml Udc) 10 gm PO DAILY PRN PRN Reason: CONSTIPATION Lorazepam (Lorazepam 2 Mg/Ml Inj 1 Ml) 2 mg IVP Q4H PRN PRN Reason: ANXIETY Last Admin: 04/21/21 00:01 Dose: 2 mg Documented by: Naloxone HCl (Naloxone 0.4 Mg/Ml Sdv) 0.1 mg IVP Q2M PRN PRN Reason: OPIATERV Ondansetron HCl (Ondansetron 2 Mg/Ml Sdv 2 Ml) 4 mg IVP Q8H PRN PRN Reason: vomiting, or N/V if npo Last Admin: 04/20/21 19:18 Dose: 4 mg Documented by: Senna/Docusate Sodium (Sennosides-Docusate Tablet) 2 tab PO DAILY [facility]IE Last Admin: 04/22/21 09:06 Dose: 2 tab Documented by: Vitals/I&O/Wt Last Vital Signs Temp 100.6 F H 04/30/21 08:01 Pulse 102 H 04/30/21 11:42 Resp 17 04/30/21 11:43 BP 136/82 04/30/21 09:01 Pulse Ox 98 04/30/21 11:43 04/29/21 04/30/21 04/30/21 22:59 06:59 14:59 Intake Total 336.125 / 2792.286 238.272 / 3030.558 122.948 / 122.948 Balance 336.125 / -2135.714 238.272 / -1897.442 122.948 / 122.948 Weight last 48 hrs Weight 69.6 kg Weight 71.078 kg Physical Exam Narrative: Constitutional: Intubated and vented HEENT: Wet mucosa, no jvp, non icteric Lungs: Bilaterally clear without discernible wheeze or rales in all lung zones CVS: S1 S2, no murmurs Abdo: Soft, BS ok Ext 4: Minimal edema, peripheral perfusion with no cyanosis Neurological: Grossly non-focal Urinary Catheter Management: Wynn: Cath Placed During This Visit: yes, but has since been removed by the nurse Reason for Continuing Indwelling Catheter: Decision to DC Catheter Urinary Catheter Date of Insertion: 04/19/21 Urinary Catheter Time of Insertion: 01:00 Date Urinary Catheter Removed: 04/28/21 Time Urinary Catheter Discontinued: 10:30 Data : 04/30/21 03:58 04/30/21 03:58 Micro: Microbiology 04/29/21 17:15 Gram Stain - Final Sputum - Endotracheal Tube Aspirate 04/28/21 21:29 Blood Culture - Preliminary Blood NEGATIVE TO DATE 04/28/21 21:25 Blood Culture - Preliminary Blood NEGATIVE TO DATE A&P Assessment and plan (1) ATN (acute tubular necrosis): 1. Acute kidney injury Remains oligoanuric, likely secondary to acute tubular injury Plan for dialysis tomorrow Strict I's and O's Close monitoring for recovery Dose medication for GFR less than 15 on dialysis Bladder scan today No wynn 2. Vent dependent respiratory failure Management per the ICU team, agitated when brought down off sedation 3. Pancreatitis Secondary to hypertriglyceridemia, triglyceride levels now trending down, below 500 On inuslin gtt, mgmt per medicine 4. 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
[2021-04-30] MEDS: potassium chloride premix 100 ML 50 MEQ IV (13:04)
[2021-04-30] MEDS: dexmedeTOMIDine 0.9 % NaCL 400 MCG/100 ML PREMIX 9.14 MCG IV (16:24)
[2021-04-30 16:59] LABS: Glucose Point of Care 154 mg/dL (70-110)
--- NOTE | 2021-04-30 17:00 | PM.PN ---
Subjective Subjective: Patient did not do well with weaning trial in the morning, Seroquel added to keep her calm, plan is to try weaning trial again in the morning after dialysis If she feels fine awaiting trial then will go ahead with PEG and trach Initially she was yawning and gagging when pressure support weaning trial was being done however became tachypneic later on Rectal tube was placed for persistent diarrhea C. difficile requested, worsening leukocytosis and febrile episodes noted Vitals/I&O/Wt Last Vital Signs Temp 98.8 F 04/30/21 16:01 Pulse 84 04/30/21 16:31 Resp 25 H 04/30/21 15:47 BP 106/68 04/30/21 16:31 Pulse Ox 98 04/30/21 16:31 04/30/21 04/30/21 04/30/21 06:59 14:59 22:59 Intake Total 238.272 / 3030.558 272.948 / 272.948 160.933 / 433.881 Output Total 2274 / 2274 Balance 238.272 / -1897.442 -2001.052 / -2001.05 160.933 / -1840.119 Weight last 48 hrs Weight 69.6 kg Weight 71.078 kg Physical Exam Narrative: Patient was more awake today she was yawning and gagging during weaning trial Minimal vent settings Trace edema of legs Assisted bilateral breath sounds Abdomen soft Patient is able to use her extremities Nonfocal neuro exam No signs of peritonitis abdomen is soft Urinary Catheter Management: Carroll: Cath Placed During This Visit: yes, but has since been removed by the nurse Reason for Continuing Indwelling Catheter: Decision to DC Catheter Urinary Catheter Date of Insertion: 04/19/21 Urinary Catheter Time of Insertion: 01:00 Date Urinary Catheter Removed: 04/28/21 Time Urinary Catheter Discontinued: 10:30 Data : 04/30/21 03:58 04/30/21 03:58 Micro: Microbiology 04/30/21 08:30 C.difficile Toxin B Gene (PCR) - Final Stool 04/29/21 17:15 Gram Stain - Final Sputum - Endotracheal Tube Aspirate 04/28/21 21:29 Blood Culture - Preliminary Blood NEGATIVE TO DATE 04/28/21 21:25 Blood Culture - Preliminary Blood NEGATIVE TO DATE A&P Assessment and plan (1) Pulmonary embolism: Status: Acute (2) Aspiration pneumonia: Status: Acute (3) Acute respiratory distress syndrome (ARDS) due to 2019 novel coronavirus: Status: Acute (4) ATN (acute tubular necrosis): Status: Acute (5) Acute pancreatitis: Status: Acute (6) Hypertriglyceridemia: Status: Acute Plan Patient failed weaning trial Added Seroquel, another weaning trial after dialysis tomorrow Talked with Dr. Hernandez who recommended permacath placement over the or Tuesday I will hold her Eliquis, will update Dr. Sue If she fails weaning trial then will plan for trach and PEG placement Continue tube feeds For her diarrhea sent C. 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
--- NOTE | 2021-04-30 18:19 | PC.NURSE ---
Shift Note Frequent safety and comfort rounds continue. Orders and/or nursing care completed as indicated. Patient monitored for response to intervention and treatment(s). Education provided includes treatment plan, extubation goal, and medications. Mother at bedside verbalizes understanding. VSS. TF held d/t vomiting. FMS remains in place, some leakage noted around tube. Pericare performed PRN. No other issues noted. Precedex at 0.6, plan is to extubate after HD tomorrow. Will continue to monitor.
--- NOTE | 2021-04-30 20:52 | PC.NURSE ---
Unable to observe pressure ulcer at this time.
--- NOTE | 2021-04-30 22:04 | P.PN_ITS ---
Subjective Subjective: Patient seen at bedside today -Tolerating SIMV and tolerated pressure support with PS 14 after receiving Seroquel 25 mg for some time -She is only on Precedex, fentanyl and Versed -Plan is to do hemodialysis tomorrow brush stainer and proceed with weaning trial plan for weaning trial - If she fails weaning trial then will go ahead with PEG and trach - Rectal tube was placed for persistent diarrhea C. difficile negative - worsening leukocytosis and febrile episodes noted -most recent cultures negative-sputum cultures pending; -Patient is on imipenem since 04/25/2021 -Other labs and imaging reviewed Medications: Reviewed: Yes Medication Review Details: Current Medications Acetaminophen (Acetaminophen 325 Mg Tablet) 650 mg PO Q6H PRN PRN Reason: Mild/Mod Pain Or Temp >/= 101 Albuterol/Ipratropium (Ipratropium-Albuterol 3 Ml Neb) 3 ml INHALATION Q6H.RESPIRATORY [facility] Last Admin: 04/23/21 03:41 Dose: 3 ml Documented by: Calcium Carbonate (Calcium Carbonate 500 Mg Chew Tablet) 1,000 mg PO TID [facility] Last Admin: 04/22/21 21:31 Dose: 1,000 mg Documented by: Dexamethasone (Dexamethasone 10 Mg/Ml Inj) 6 mg IVP Q24H [facility] Last Admin: 04/22/21 13:38 Dose: 6 mg Documented by: Dextrose (Dextrose 50% Syringe 50 Ml) 25 ml IVP ONCE PRN; Protocol PRN Reason: hypoglycemia protocol Last Admin: 04/20/21 00:25 Dose: 25 ml Documented by: Dextrose (Dextrose 50% Syringe 50 Ml) 50 ml IVP PRN PRN; Protocol PRN Reason: hypoglycemia protocol Last Admin: 04/19/21 20:35 Dose: 50 ml Documented by: Dextrose (Dextrose 50% Syringe 50 Ml) 25 ml IVP ONCE PRN; Protocol PRN Reason: hypoglycemia protocol Dextrose (Dextrose 50% Syringe 50 Ml) 50 ml IVP PRN PRN; Protocol PRN Reason: hypoglycemia protocol Ergocalciferol (Ergocalciferol (Vitamin D2) 50,000 Unit Capsule) 50,000 unit PO Q7D [facility] Last Admin: 04/21/21 12:04 Dose: 50,000 unit Documented by: Famotidine (Famotidine 20 Mg/2 Ml Inj) 20 mg IVP Q12H [facility] Last Admin: 04/23/21 01:38 Dose: 20 mg Documented by: Fenofibrate (Fenofibrate 145 Mg Tablet) 145 mg PO DAILY [facility] Last Admin: 04/22/21 09:06 Dose: 145 mg Documented by: Glucagon (Glucagon 1 Mg/Ml Inj 1 Ml) 1 mg IM ONCE PRN; Protocol PRN Reason: Adult Acute Hypoglycemia Prot Glucagon (Glucagon 1 Mg/Ml Inj 1 Ml) 1 mg IM ONCE PRN; Protocol PRN Reason: Adult Acute Hypoglycemia Prot. Heparin Sodium (Porcine) (Heparin 5,000 Unit/Ml Inj 1 Ml) 5,000 unit SUBCUT Q12H [facility] Last Admin: 04/21/21 04:54 Dose: Not Given Documented by: Dextrose (D5w) 500 mls @ 100 mls/hr IV ONCE PRN; Protocol PRN Reason: Adult Acute Hypoglycemia Prot Last Infusion: 04/20/21 18:12 Dose: Infused Documented by: Insulin Human Regular 250 unit (/ Sodium Chloride) 252.5 mls @ 0 mls/hr IV .Q0M [facility]; Protocol Last Titration: 04/22/21 21:29 Dose: 0 unit/hr, 0 mls/hr Documented by: Piperacillin Sod/Tazobactam (Sod 3.375 gm/ Sodium Chloride) 50 mls @ 12.5 mls/hr IV Q12H [facility]; Protocol Last Infusion: 04/23/21 05:37 Dose: Infused Documented by: Dextrose/Sodium Chloride (Dextrose 5%-Sod Chloride 0.45%) 1,000 mls @ 200 mls/hr IV .Q5H [facility] Last Admin: 04/23/21 03:14 Dose: Not Given Documented by: Norepinephrine Bitartrate 4 mg (/ Dextrose) 254 mls @ 0 mls/hr IV .Q0M [facility]; Protocol Last Titration: 04/21/21 22:00 Dose: Infused Documented by: Remdesivir 100 mg/ Sodium (Chloride) 100 mls @ 100 mls/hr IV Q24H [facility] Stop: 04/24/21 06:59 Last Admin: 04/23/21 05:05 Dose: 100 mls/hr Documented by: Norepinephrine Bitartrate 4 mg (/ Dextrose) 254 mls @ 0 mls/hr IV .Q0M [facility]; Protocol Last Titration: 04/22/21 05:16 Dose: 0 mcg/min, 0 mls/hr Documented by: Heparin Sodium/Sodium Chloride (Heparin Drip) 25,000 unit in 500 mls @ 0 mls/hr IV .Q0M [facility]; Protocol Last Admin: 04/23/21 04:22 Dose: 20 unit/kg/hr, 24.39 mls/hr Documented by: dexmedeTOMIDine 0.9 % NaCL (Precedex) 400 mcg in 100 mls @ 0 mls/hr IV .Q0M [facility]; Protocol Last Titration: 04/21/21 01:15 Dose: 0 mcg/kg/hr, 0 mls/hr Documented by: Albumin Human (Albumin) 12.5 gm in 50 mls @ 60 mls/hr IV PRN PRN PRN Reason: Hypotension and/or symptomatic Propofol (Diprivan) 1,000 mg in 100 mls @ 0 mls/hr IV .Q0M [facility]; Protocol Last Titration: 04/23/21 04:45 Dose: 20 mcg/kg/min, 7.32 mls/hr Documented by: Fentanyl 2,500 mcg/ Sodium (Chloride) 250 mls @ 0 mls/hr IV .Q0M [facility]; Protocol Last Admin: 04/23/21 03:52 Dose: 50 mcg/hr, 5 mls/hr Documented by: Dextrose (D5w) 500 mls @ 100 mls/hr IV ONCE PRN; Protocol PRN Reason: Adult Acute Hypoglycemia Prot Insulin Human Lispro (Insulin Lispro 100 Unit/1 Ml) 0 unit SUBCUT WM&BEDTIME [facility]; Protocol Lactulose (Lactulose Oral Liq 20 Gm/30 Ml Udc) 10 gm PO DAILY PRN PRN Reason: CONSTIPATION Lorazepam (Lorazepam 2 Mg/Ml Inj 1 Ml) 2 mg IVP Q4H PRN PRN Reason: ANXIETY Last Admin: 04/21/21 00:01 Dose: 2 mg Documented by: Naloxone HCl (Naloxone 0.4 Mg/Ml Sdv) 0.1 mg IVP Q2M PRN PRN Reason: OPIATERV Ondansetron HCl (Ondansetron 2 Mg/Ml Sdv 2 Ml) 4 mg IVP Q8H PRN PRN Reason: vomiting, or N/V if npo Last Admin: 04/20/21 19:18 Dose: 4 mg Documented by: Senna/Docusate Sodium (Sennosides-Docusate Tablet) 2 tab PO DAILY [facility] Last Admin: 04/22/21 09:06 Dose: 2 tab Documented by: Vitals/I&O/Wt Last Vital Signs Temp 100.3 F H 04/30/21 20:00 Pulse 83 04/30/21 20:32 Resp 22 H 04/30/21 20:34 BP 106/68 04/30/21 16:31 Pulse Ox 99 04/30/21 20:34 04/30/21 04/30/21 04/30/21 06:59 14:59 22:59 Intake Total 238.272 / 3030.558 272.948 / 272.948 160.933 / 433.881 Output Total 2274 / 2274 Balance 238.272 / -1897.442 -2001.052 / -2001. 160.933 / -1840.119 Weight last 48 hrs Weight 153 lb 7.068 oz Weight 156 lb 11.2 oz Physical Exam Narrative: PHYSICAL EXAM: General: lying in bed, sedated and intubated. HEENT:NCAT, PERRLA, EOMI Neck: Supple Lungs: Still has bilateral diffuse crackles but improved Heart: s1/s2, RRR Abd: soft, NT, ND, BS + Normoactive Extremities: No edema DIE TECHNICIAN: sedated and limited DIE TECHNICIAN exam possible. SKIN: no rash LDA: # HD Cath : Right internal jugular 04/20/2021 Urinary Catheter Management: Carroll: Cath Placed During This Visit: yes, but has since been removed by the nurse Reason for Continuing Indwelling Catheter: Decision to DC Catheter Urinary Catheter Date of Insertion: 04/19/21 Urinary Catheter Time of Insertion: 01:00 Date Urinary Catheter Removed: 04/28/21 Time Urinary Catheter Discontinued: 10:30 Data : 04/30/21 03:58 04/30/21 03:58 Other Labs: Radiology Impressions Abdomen Ultrasound 04/19/21 02:25 IMPRESSION: 1. Cholelithiasis. Chest CT 04/19/21 02:25 IMPRESSION: 1. Nonspecific gallbladder distention. No calcified stones. 2. Mild retroperitoneal stranding about the pancreas, correlate with pancreatic enzymes. 3. Bilateral pulmonary infiltrates which may be seen with atypical pneumonia. Chest/Abdomen/Pelvis CT 04/22/21 07:35 IMPRESSION: 1. Proximal main pulmonary arteries are normal. A few filling defects in the left lower lobe pulmonary artery suspicious for pulmonary embolus. Images degraded by breathing artifact. 2. Endotracheal tube with tip above the tracey. Enteric tube with tip below the diaphragm in the distal stomach. 3. Air-fluid level in the stomach. Air distended transverse colon compatible with adynamic ileus. 4. Diffuse bilateral pulmonary infiltrates have improved in the lung bases but progressed in the perihilar regions and upper lobes with partial confluence and consolidation in the lung apices with air bronchograms. 5. Small amount of pancreatic edema is similar to previous. Recommend correlation for pancreatitis. 6. Enlarged kidneys bilaterally with heterogeneous enhancement. Correlation for renal insufficiency. No hydronephrosis. 7. Small amount of free fluid in the pelvis. Diffuse body wall anasarca. Message left for Paresh Reese MD at 04/22/2021 11:55 AM. Gallbladder Ultrasound 04/25/21 07:53 IMPRESSION: 1. Slightly hyperechoic liver, which can be seen with fatty infiltration or hepatocellular disease. 2. Nonspecific hepatic hypoechoic lesion adjacent to the gallbladder, which may represent fat sparing. Further evaluation with contrast enhanced abdomen MRI should be considered in the adequate clinical setting. 3. Cholelithiasis without evidence of cholecystitis. 4. Right pleural effusion. Head CT 04/25/21 14:00 IMPRESSION: 1. No acute intracranial abnormality. 2. Usax-no-jxyxscte sinusitis. 3. Bilateral mastoiditis and right otitis media. Abdomen/Pelvis CT 04/25/21 14:08 IMPRESSION: 1. Bibasilar opacities may be aspiration related, ARDS or pneumonia. 2. Possible contrast nephropathy, correlate clinically. 3. Trace ascites and mild to moderate anasarca. 4. Mild residual pancreatitis. KUB X-Ray 04/26/21 14:33 IMPRESSION: No acute findings. Chest X-Ray 04/30/21 06:13 IMPRESSION: Diffuse lung opacities with some improvement. Laboratory Results WBC 21.1 10^3/uL (4.0-10.0) H 04/30/21 03:58 Corrected WBC 8.5 10^3/cmm (4.8-10.8) 04/23/21 18:20 RBC 3.22 10^6/uL (4.1-5.3) L 04/30/21 03:58 Hgb 9.9 g/dL (11.5-15.3) L 04/30/21 03:58 Hct 31.8 % (37.0-47.0) L 04/30/21 03:58 MCV 98.8 fl (81-99) 04/30/21 03:58 MCH 30.7 pg (28.0-34.0) 04/30/21 03:58 MCHC 31.1 g/dL (30.0-36.0) 04/30/21 03:58 RDW 16.4 % (12.1-15.1) H 04/30/21 03:58 Plt Count 156 10^3/cmm (130-400) 04/30/21 03:58 MPV 12.6 fL (7.4-10.4) H 04/30/21 03:58 Neut % (Auto) 62.2 % 04/30/21 03:58 Lymph % (Auto) 23.5 % 04/30/21 03:58 Eagle % (Auto) 5.5 % 04/30/21 03:58 Eos % (Auto) 1.3 % 04/30/21 03:58 Baso % (Auto) 0.7 % 04/30/21 03:58 Neut # (Auto) 13.12 10^3/uL (1.8-7.7) H 04/30/21 03:58 Lymph # (Auto) 5.0 10^3/uL (0.8-4.8) H 04/30/21 03:58 Eagle # (Auto) 1.2 10^3/uL (0.2-0.9) H 04/30/21 03:58 Eos # (Auto) 0.3 10^3/uL (0.0-0.8) 04/30/21 03:58 Baso # (Auto) 0.1 10^3/uL (0.0-0.1) 04/30/21 03:58 Nucleated RBC % (auto) 1.4 % 04/30/21 03:58 Total Counted 100 (0-100) 04/29/21 07:50 Atypical Lymphs % 5.0 % (0-5) 04/29/21 07:50 Absolute Neutrophils 7.6 10^3/cmm (1.4-6.5) H 04/29/21 07:50 Segmented Neutrophils 51 % 04/29/21 07:50 Abs Segm Neuts (Man) 7.1 10/cmm (1.6-7.1) 04/29/21 07:50 Band Neutrophils 3.0 % 04/29/21 07:50 Abs Band Neuts (Man) 0.4 10^3/cmm (0.0-1.2) 04/29/21 07:50 Absolute Lymphocytes 5.2 10^3/cmm (1.2-3.4) H 04/29/21 07:50 Lymphocytes (Manual) 32 % 04/29/21 07:50 Monocytes (Manual) 0.0 % 04/29/21 07:50 Absolute Monocytes 0.0 10^3/cmm (0.1-0.6) L 04/29/21 07:50 Eosinophils (Manual) 2 % 04/29/21 07:50 Absolute Eosinophils 0.2 10^3/cmm (0.0-0.7) 04/29/21 07:50 Basophils (Manual) 0.0 % 04/29/21 07:50 Absolute Basophils 0.0 10^3/cmm (0.0-0.2) 04/29/21 07:50 Metamyelocytes 5.0 % 04/29/21 07:50 Myelocytes 2.0 % 04/29/21 07:50 Nucleated RBCs 3.0 /100WBC (0-1) H 04/29/21 07:50 Nucleated RBCs # 0.3 /100WBC 04/30/21 03:58 Platelet Estimate Normal (Normal) 04/29/21 07:50 Hypochromasia 2+ H 04/23/21 18:20 Basophilic Stippling Trace 04/21/21 Unknown Anisocytosis Trace 04/29/21 07:50 PT 16.40 SECONDS (12.1-14.9) H 04/19/21 03:00 INR 1.28 (0.8-1.2) H 04/19/21 03:00 APTT 66.6 SECONDS (23.9-36.7) H 04/29/21 06:05 Fibrinogen 310 mg/dL (174-498) 04/19/21 03:00 Fibrin Degrad Products Pos, 10-40 ug/mL (NEG) H 04/19/21 03:00 D-Dimer 6.68 ug/mIFEU (0-0.59) H 04/21/21 03:50 Specimen Type Arterial 04/30/21 05:15 Sample Site Radial, right 04/30/21 05:15 ABG pH 7.53 (7.35-7.45) H 04/30/21 05:15 ABG pCO2 33.9 mmHg (35-45) L 04/30/21 05:15 ABG pO2 85.2 mmHg (80.0-100.0) 04/30/21 05:15 ABG HCO3 28.1 mmol/L (22-26) H 04/30/21 05:15 ABG O2 Saturation 93.4 04/29/21 08:24 ABG Base Excess 5.1 mmol/L (-2.0-2.0) H 04/30/21 05:15 Dennis Test Pos 04/30/21 05:15 A-a O2 Gradient 13.3 mmHg (5-10) H 04/29/21 08:24 Hematocrit 28.7 % (37-47) L 04/30/21 05:15 Hgb O2 Saturation 91.2 % (95-100) L 04/29/21 08:24 Carboxyhemoglobin 1.3 %THgb (0.4-20.1) 04/29/21 08:24 Methemoglobin 1.1 % (0.4-1.5) 04/29/21 08:24 Total Hemoglobin 10.2 g/dL (12-16) L 04/29/21 08:24 Sodium 136.0 mmol/L (131-143) 04/29/21 08:24 Potassium 3.0 mmol/L (3.5-5.0) L 04/29/21 08:24 Glucose 110.0 mg/dL (70-115) 04/29/21 08:24 Ionized Calcium 1.1 mmol/L (1.1-1.4) 04/29/21 08:24 Respiration Rate 20.0 % 04/23/21 05:25 O2 Delivery Device Vent 04/30/21 05:15 Mechanical Rate 20.0 04/26/21 04:00 FiO2 30.0 % 04/30/21 05:15 Tidal Volume 0.32 04/30/21 05:15 PEEP 6.0 cmH20 04/30/21 05:15 Industrial Registered Nurse ID Slava 04/30/21 05:15 Sodium 133 mmol/L (136-145) L 04/30/21 03:58 Potassium 3.6 mmol/L (3.5-5.1) 04/30/21 03:58 Chloride 98 mmol/L (98-107) 04/30/21 03:58 Carbon Dioxide 22 mmol/L (22-29) 04/30/21 03:58 Anion Gap 16.6 (5-19) 04/30/21 03:58 BUN 39 mg/dL (6-20) H 04/30/21 03:58 Creatinine 3.0 mg/dL (0.5-0.9) H 04/30/21 03:58 GFR Calculation 17.4 mL/min (90-130) L 04/30/21 03:58 Glucose 114 mg/dL (65-115) 04/30/21 03:58 POC Glucose 154 mg/dL (70-110) H 04/30/21 16:46 Estimat Average Glucose 134 04/18/21 22:48 Hemoglobin A1c 6.3 % (4.0-6.0) H 04/18/21 22:48 Calculated Osmolality 286 mOsm/kg (285-295) 04/30/21 03:58 Lactic Acid 5.1 mmol/L (0.5-2.2) H* 04/20/21 03:20 Lactic Acid (Sepsis) 4.7 mmol/L (0.5-2.2) H* 04/20/21 06:47 Lactate 1.4 mmol/L (0.5-2.2) 04/26/21 08:34 Uric Acid 12.0 mg/dL (2.4-5.7) H 04/20/21 09:20 Calcium 8.7 mg/dL (8.5-10.5) 04/30/21 03:58 Phosphorus 3.7 mg/dL (2.5-4.5) 04/24/21 03:59 Magnesium 1.9 mg/dL (1.7-2.3) 04/29/21 07:50 Iron 37 ug/dL (37-145) 04/23/21 06:20 TIBC 157 mcg/dl 04/23/21 06:20 % Saturation 23.5 % (20-50) 04/23/21 06:20 Unsat Iron Binding 120 ug/dL (112-347) 04/23/21 06:20 Ferritin 481 ng/mL (15-150) H 04/22/21 00:32 Total Bilirubin 0.8 mg/dL (0.15-1.2) 04/29/21 07:50 GGT 108 U/L (5-36) H 04/19/21 03:00 AST 15 U/L (0-32) 04/29/21 07:50 ALT 12 U/L (0-33) 04/29/21 07:50 Alkaline Phosphatase 264 IU/L (35-105) H 04/29/21 07:50 Lactate Dehydrogenase 491 U/L (135-214) H 04/30/21 03:58 Creatine Kinase 79 U/L (26-192) 04/19/21 03:00 Troponin T Baseline 31 ng/L (0-10) H 04/20/21 16:45 Troponin T 120 Minute 31.12 ng/L (0-10) H 04/20/21 19:44 Delta Troponin T 0.12 ABS# (0-10) 04/20/21 19:44 Troponin T Hi Sens 6Hr 27.06 ng/L (0-10) H 04/21/21 03:50 Troponin T Hi Sens 6Hr Delta -3.94 ng/L (0-12) L 04/21/21 03:50 C-Reactive Protein 100.4 mg/L (0.0-4.9) H 04/26/21 05:45 Total Protein 5.2 g/dL (6.6-8.7) L 04/29/21 07:50 Albumin 2.5 g/dL (3.5-5.2) L 04/29/21 07:50 Globulin 2.7 g/dL (1.3-4.6) 04/29/21 07:50 Triglycerides 301 mg/dL (0-150) H 04/29/21 07:50 Triglycerides Cancelled 04/29/21 07:50 Cholesterol 322 mg/dL (0-200) H 04/19/21 03:00 LDL Cholesterol Direct 82 mg/dL (0-100) 04/28/21 09:38 LDL Cholesterol, Calc Not Reportable 04/19/21 03:00 HDL Cholesterol 12 mg/dL (60-100) L 04/19/21 03:00 LDL/HDL Ratio Not Reportable 04/19/21 03:00 Cholesterol/HDL Ratio 26.83 mg/dL (0.0-4.40) H 04/19/21 03:00 Lipase 15 U/L (13-60) 04/25/21 04:34 25-OH Vitamin D Total 7 ng/mL (30-100) L 04/21/21 03:50 1,25 Dihydroxy Vit D2 <8 pg/mL 04/20/21 03:20 1,25 Dihydroxy Vit D3 <8 pg/mL 04/20/21 03:20 Procalcitonin 0.43 ng/mL (0-0.5) 04/30/21 03:58 TSH 1.02 uIU/mL (0.27-4.20) 04/19/21 03:00 HCG, Qual Negative (Negative) 04/18/21 22:48 PTH Intact 274.7 pg/mL (15-65) H 04/21/21 03:50 Calcium (PTH Intact) 6.7 mg/dL (8.5-10.5) L 04/21/21 03:50 Urine Color Yellow (Yellow) 04/18/21 23:19 Urine Appearance Clear (CLEAR) 04/18/21 23:19 Urine pH 5 (5-7) 04/18/21 23:19 Ur Specific D[place]well 1.020 (1.005-1.030) 04/18/21 23:19 Urine Protein 3+ (Negative) H 04/18/21 23:19 Urine Glucose (UA) 1+ (Normal) H 04/18/21 23:19 Urine Ketones 1+ (Negative) H 04/18/21 23:19 Urine Blood 2+ (Negative) H 04/18/21 23:19 Urine Nitrate Negative (Negative) 04/18/21 23:19 Urine Bilirubin 1+ (Negative) H 04/18/21 23:19 Urine Urobilinogen 1 mg/dL (Negative) H 04/18/21 23:19 Ur Leukocyte Esterase Negative (Negative) 04/18/21 23:19 Urine RBC 5-10 /hpf (0-2) H 04/18/21 23:19 Urine WBC 0-4 /hpf (0-5) H 04/18/21 23:19 Ur Eosinophil Smear 0 (0-0) 04/19/21 05:35 Ur Squamous Epith Cells 10-15 /hpf (0-5) H 04/18/21 23:19 Amorphous Sediment 3+ /hpf 04/18/21 23:19 Urine Bacteria 2+ /hpf (NONE) H 04/18/21 23:19 Urine Eosinophils No eosinophils seen 04/19/21 05:35 Ur Random Creatinine 128 mg/dL (20-275) 04/19/21 05:35 Ur Random Albumin 46 % 04/19/21 05:35 U Random Total Protein 727 mg/dL (5-24) H 04/19/21 05:35 Ur Random Sodium 57 mmol/L 04/19/21 05:35 Ur Random Potassium 27 mmol/L 04/19/21 05:35 Ur Random Chloride 50 mmol/L 04/19/21 05:35 Urine Creatinine 139 mg/dL (28-217) 04/19/21 05:35 Protein/Creatinin Ratio 5680 mg/g creat (21-161) H 04/19/21 05:35 Protein/Creat Ratio 24h 5.680 (0.021-0.161) H 04/19/21 05:35 U Random r-8-[id number] % 4 % 04/19/21 05:35 U Random z-9-Uqxdkqgo % 12 % 04/19/21 05:35 U Random Beta Globulin 21 % 04/19/21 05:35 U Random Gamma Glob 18 % 04/19/21 05:35 U Abnormal Prot Band 1 Not Reportable 04/19/21 05:35 U Abnormal Prot Band 2 Not Reportable 04/19/21 05:35 U Abnormal Prot Band 3 Not Reportable 04/19/21 05:35 Urine PEP Interpret See note 04/19/21 05:35 Vancomycin Trough 20.4 ug/mL (10-15) H 04/20/21 03:20 Salicylates < 0.3 mg/dL (3-10) L 04/19/21 03:00 Acetaminophen < 5.0 ug/mL (10-30) L 04/19/21 03:00 Ethylene Glycol <10.0 mg/L () 04/19/21 03:00 Volat Analys Perform On Whole blood 04/19/21 03:00 Ethyl Alcohol < 10 mg/dL (0-10) 04/19/21 03:00 Urine Ethyl Alcohol Cancelled 04/19/21 05:35 Methyl Alcohol Level None detected mg/dL 04/19/21 03:00 Serum Ketones Negative (Negative) 04/29/21 07:50 Coronavirus 229E (PCR) Not detected (NOT DETECT) 04/19/21 05:35 Hepatitis A IgM Ab Non-reactive (Nonreactive) 04/19/21 03:00 Hep Bs Antigen Non-reactive (Nonreactive) 04/20/21 03:20 Hep Bs Antibody 3.5 (11.5-1000) L 04/20/21 03:20 Hep B Core IgM Ab Non-reactive (Nonreactive) 04/19/21 03:00 Hepatitis C Antibody Non-reactive (Nonreactive) 04/20/21 03:20 HIV 1&2 Ab & HIV 1 Ag Non-reactive (Non-Reactiv) 04/19/21 03:00 HIV 1&2 Antibody Non-reactive (Non-Reactiv) 04/19/21 03:00 Influenza Type A Ag Negative (Negative) 04/19/21 05:35 Influenza Type B Ag Negative (Negative) 04/19/21 05:35 SARS-CoV-2 (PCR) Detected (NOT DETECT) A 04/19/21 05:35 SARS-CoV-2 Ag (Rapid) Negative (Negative) 04/18/21 21:49 Misc Test Reference See comment 04/19/21 05:35 Blood Type O Positive 04/23/21 20:40 Rho(D) Type Positive 04/23/21 20:40 Antibody Screen Negative 04/23/21 20:40 Crossmatch See Detail 04/23/21 20:40 Micro: Microbiology 04/30/21 08:30 C.difficile Toxin B Gene (PCR) - Final Stool 04/29/21 17:15 Gram Stain - Final Sputum - Endotracheal Tube Aspirate 04/28/21 21:29 Blood Culture - Preliminary Blood NEGATIVE TO DATE 04/28/21 21:25 Blood Culture - Preliminary Blood NEGATIVE TO DATE A&P Assessment and plan (1) Acute respiratory distress syndrome (ARDS) due to 2019 novel coronavirus: Status: Acute (2) COVID: Status: Acute (3) Increased anion gap metabolic acidosis: Status: Acute (4) Acute encephalopathy: Status: Acute (5) Acute pancreatitis: Status: Acute (6) Mild mental handicap: Status: Acute (7) GODFREY (generalized anxiety disorder): Status: Acute (8) Essential hypertension: Status: Acute (9) Hypertriglyceridemia: Status: Acute (10) Leukocytosis: Status: Acute (11) Aspiration pneumonia: Status: Acute (12) Hypovolemic shock: Status: Acute Plan # Acute hypoxic respiratory failure in patient with COVID-19 pneumonia and fluid overload secondary to TONY -possible ARDS and patient with COVID-19 PCR positive/pancreatitis; subsegmental PE on CT #TONY due to hypovolemia-ischemic ATN/MAMI/Covid TONY-currently on HD #Hypovolemic shock secondary to pancreatitis-currently off pressors #Pancreatitis secondary to hypertriglyceridemia #Generalized anxiety disorder #Leukocytosis-secondary to dehydration versus possible aspiration pneumonia - with h/o vomiting -Intubated on 04/20/2021 night after an episode of vomiting while she was on BiPAP -ABG 7.5 3/33/85/28/93% on CMV 320/30%/6; weaning trial -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; compliance improved today and plateau pressures 23; tolerating SIMV but failed a trial on PSV-she was requiring higher pressure support -On Precedex only and following commands; on Seroquel 25 mg twice daily -Plan is to continue to do yearly hemodialysis and continue awakening trial -Ketones negative, triglycerides 300-DC insulin drip -It has been challenging to taper off sedation, coordinate mentation as patient becomes extremely tachypneic and desaturates-Seroquel helps -Repeat CT head did not show any acute intracranial abnormality/there is mild to moderate sinusitis with bilateral mastoiditis and right otitis media -Completed remdesivir and currently on dexamethasone; received Zosyn for poss ible aspiration pneumonia for 5 days and later changed to imipenem since 04/25/2021-patient continues to spike low-grade fevers and today leukocytosis- repeat cultures results are pending -Continue monitoring respiratory status and saturations closely -CT angiogram subsegmental PE; bilateral venous Doppler negative for DVT-on heparin drip -switch to to Elliquis -LFTs trending down including total bilirubin ultrasound: Gallstones with no gallbladder wall thickening or pericolic cystic fluid. There is a hypoechoic lesion in posterior mid abdominal ultrasound -Repeat CT abdomen pelvis 04/25/2021: Trace ascites with mild residual pancreatitis - Continue tube feeding -monitor FSBS closely and adjust IV insulin accordingly -Hemodialysis as per renal -Patient's family updated at bedside -Prognosis guarded Recommendations conveyed to hospitalist, RN, RT taking care of the patient Attestations Medical Necessity Statement*: Hypoxic respiratory failure secondary to ARDS due to COVID-19 pneumonia/pancreatitis-fluid overload due to TONY and patient with underlying Covid pneumonia and aspiration pneumonia-requiring mechanical intubation and hemodialysis Time Spent in Patient Care: Greater than 35 minutes (>than 50% of time spent in counselling and/or direct pt care on unit) . Critical Care Time: The high probability of a clinically significant, sudden or life threatening deterioration of the patient's [neurological, pulmonary, renal system(s) required my full and direct attention, intervention and personal management. The critical care time is as shown. This time is in addition to time spent performing any reported procedures but includes the following: [x] Data and vital sign review and interpretation [x] Patient assessment, examination and intervention [x] Documentation [x] Medication orders and management Critical Care Time (min): 45 Coding Level of Care Code Acute Ophthalmic Assistant for [facility] Fw Diagnoses Acute respiratory distress syndrome (ARDS) due to 2019 novel coronavirus U07.1; J80 COVID U07.1 Increased anion gap metabolic acidosis E87.2 Acute encephalopathy G93.40 Acute pancreatitis K85.90 Mild mental handicap F70 GODFREY (generalized anxiety disorder) F41.1 Essential hypertension I10 Hypertriglyceridemia E78.1 Leukocytosis D72.829 Aspiration pneumonia J69.0 Hypovolemic shock R57.1 Time Spent (min) 45
[2021-04-30 22:59] LABS: Glucose Point of Care 139 mg/dL (70-110)
--- NOTE | 2021-04-30 23:31 | PC.NURSE ---
Pt's mother at bedside for the night.
[2021-05-01] VITALS (67 sets, daily range): BP systolic 92–151; BP diastolic 64–97; PULSE 46–101; RESP 12–36; TEMP 36.5–37.3; O2SAT 93–100
[2021-05-01] MEDS: ipratropium-albuterol 3 mL Neb INHALATION ×6 (00:47→21:14)
[2021-05-01] MEDS: quetiapine 25 mg Tablet PO ×3 (01:44→17:28)
[2021-05-01] MEDS: famotidine 20 mg/2 mL INJ IVP ×2 (02:01→14:23)
[2021-05-01 04:16] LABS: Basophils # 0.1 10^3/uL (0.0-0.1); Basophils % 0.4 %; Eosinophils # 0.1 10^3/uL (0.0-0.8); Eosinophils % 0.4 %; Hematocrit 26.9 % (37.0-47.0); Hemoglobin 8.4 g/dL (11.5-15.3); Lymphocytes # 2.6 10^3/uL (0.8-4.8); Lymphocytes % 19.1 %; Mean Corpuscular HGB Conc 31.2 g/dL (30.0-36.0); Mean Corpuscular Hemoglobin 30.4 pg (28.0-34.0); Mean Corpuscular Volume 97.5 fl (81-99); Mean Platelet Volume 12.6 fL (7.4-10.4); Monocytes # 1.1 10^3/uL (0.2-0.9); Monocytes % 7.7 %; Neutrophils # 9.22 10^3/uL (1.8-7.7); Neutrophils % 67.9 %; Nucleated Red Blood Cells # 0.1 /100WBC; Nucleated Red Blood Cells % 0.4 %; Platelet Count 134 10^3/cmm (130-400); Red Blood Count 2.76 10^6/uL (4.1-5.3); Red Cell Distribution Width 16.1 % (12.1-15.1); White Blood Count 13.6 10^3/uL (4.0-10.0)
[2021-05-01 04:32] LABS: Alanine Aminotransferase 6 U/L (0-33); Albumin Level 2.6 g/dL (3.5-5.2); Alkaline Phosphatase 191 IU/L (35-105); Aspartate Amino Transferase 11 U/L (0-32); Blood Urea Nitrogen 55 mg/dL (6-20); Calcium 8.8 mg/dL (8.5-10.5); Carbon Dioxide 22 mmol/L (22-29); Chloride 100 mmol/L (98-107); Glomerular Filtration Rate 12.8 mL/min (90-130); Glucose 114 mg/dL (65-115); Osmolality Calculated 300 mOsm/kg (285-295); Sodium 137 mmol/L (136-145); Total Bilirubin 0.6 mg/dL (0.15-1.2); Total Protein 5.6 g/dL (6.6-8.7)
[2021-05-01 04:56] LABS: Slide Review Slide Review Perform
[2021-05-01 05:49] LABS: ABG PCO2 38.9 mmHg (35-45); ABG PH Result 7.44 (7.35-7.45); Base Excess ABG 1.9 mmol/L (-2.0-2.0); Blood Gas Allen Test Pos; Blood Gas Operator Identificat JB; Blood Gas Sample Site Radial, right; Blood Gas Sample Type Arterial; Blood Gas Tidal Volume 0.32; HCO3 ABG 26.2 mmol/L (22-26); Oxygen Device VENT; PO2 ABG 96.5 mmHg (80.0-100.0)
[2021-05-01 08:18] LABS: Glucose Point of Care 129 mg/dL (70-110)
[2021-05-01] MEDS: predniSONE 20 mg Tablet 30 MG PO (08:32)
[2021-05-01] MEDS: fenofibrate 145 mg Tablet PO (08:33)
[2021-05-01] MEDS: calcium carbonate 500 mg Chew Tablet 1000 MG PO ×3 (08:33→20:53)
[2021-05-01] MEDS: metoprolol tartrate 25 mg Tablet PO ×2 (08:34→20:53)
[2021-05-01] MEDS: dexmedeTOMIDine 0.9 % NaCL 400 MCG/100 ML PREMIX 7.62 MCG IV (09:03)
--- NOTE | 2021-05-01 10:04 | PC.NURSE ---
levophed restarted at this time with dialysis
--- NOTE | 2021-05-01 10:06 | PC.NURSE ---
heart rate dipped to 48 noted .. precedex decreased at this time
--- NOTE | 2021-05-01 10:20 | PM.PN ---
Subjective Subjective: Precious is seen and examined on hemodialysis today. So far tolerating the treatment well. She is awake. Hemodynamics currently stable, however, over the course of hemodialysis it appears that she needs low-dose Levophed to be reinitiated. Doing well on the ventilator, hopefully can be extubated after dialysis. Medications: Reviewed: Yes Medication Review Details: Current Medications Acetaminophen (Acetaminophen 325 Mg Tablet) 650 mg PO Q6H PRN PRN Reason: Mild/Mod Pain Or Temp >/= 101 Albuterol/Ipratropium (Ipratropium-Albuterol 3 Ml Neb) 3 ml INHALATION Q6H.RESPIRATORY ANNIE Last Admin: 04/23/21 03:41 Dose: 3 ml Documented by: Calcium Carbonate (Calcium Carbonate 500 Mg Chew Tablet) 1,000 mg PO TID ANNIE Last Admin: 04/22/21 21:31 Dose: 1,000 mg Documented by: Dexamethasone (Dexamethasone 10 Mg/Ml Inj) 6 mg IVP Q24H ANNIE Last Admin: 04/22/21 13:38 Dose: 6 mg Documented by: Dextrose (Dextrose 50% Syringe 50 Ml) 25 ml IVP ONCE PRN; Protocol PRN Reason: hypoglycemia protocol Last Admin: 04/20/21 00:25 Dose: 25 ml Documented by: Dextrose (Dextrose 50% Syringe 50 Ml) 50 ml IVP PRN PRN; Protocol PRN Reason: hypoglycemia protocol Last Admin: 04/19/21 20:35 Dose: 50 ml Documented by: Dextrose (Dextrose 50% Syringe 50 Ml) 25 ml IVP ONCE PRN; Protocol PRN Reason: hypoglycemia protocol Dextrose (Dextrose 50% Syringe 50 Ml) 50 ml IVP PRN PRN; Protocol PRN Reason: hypoglycemia protocol Ergocalciferol (Ergocalciferol (Vitamin D2) 50,000 Unit Capsule) 50,000 unit PO Q7D [facility] Last Admin: 04/21/21 12:04 Dose: 50,000 unit Documented by: Famotidine (Famotidine 20 Mg/2 Ml Inj) 20 mg IVP Q12H ANNIE Last Admin: 04/23/21 01:38 Dose: 20 mg Documented by: Fenofibrate (Fenofibrate 145 Mg Tablet) 145 mg PO DAILY [facility] Last Admin: 04/22/21 09:06 Dose: 145 mg Documented by: Glucagon (Glucagon 1 Mg/Ml Inj 1 Ml) 1 mg IM ONCE PRN; Protocol PRN Reason: Adult Acute Hypoglycemia Prot Glucagon (Glucagon 1 Mg/Ml Inj 1 Ml) 1 mg IM ONCE PRN; Protocol PRN Reason: Adult Acute Hypoglycemia Prot. Heparin Sodium (Porcine) (Heparin 5,000 Unit/Ml Inj 1 Ml) 5,000 unit SUBCUT Q12H ANNIE Last Admin: 04/21/21 04:54 Dose: Not Given Documented by: Dextrose (D5w) 500 mls @ 100 mls/hr IV ONCE PRN; Protocol PRN Reason: Adult Acute Hypoglycemia Prot Last Infusion: 04/20/21 18:12 Dose: Infused Documented by: Insulin Human Regular 250 unit (/ Sodium Chloride) 252.5 mls @ 0 mls/hr IV .Q0M ANNIE; Protocol Last Titration: 04/22/21 21:29 Dose: 0 unit/hr, 0 mls/hr Documented by: Piperacillin Sod/Tazobactam (Sod 3.375 gm/ Sodium Chloride) 50 mls @ 12.5 mls/hr IV Q12H ANNIE; Protocol Last Infusion: 04/23/21 05:37 Dose: Infused Documented by: Dextrose/Sodium Chloride (Dextrose 5%-Sod Chloride 0.45%) 1,000 mls @ 200 mls/hr IV .Q5H ANNIE Last Admin: 04/23/21 03:14 Dose: Not Given Documented by: Norepinephrine Bitartrate 4 mg (/ Dextrose) 254 mls @ 0 mls/hr IV .Q0M ANNIE; Protocol Last Titration: 04/21/21 22:00 Dose: Infused Documented by: Remdesivir 100 mg/ Sodium (Chloride) 100 mls @ 100 mls/hr IV Q24H [facility] Stop: 04/24/21 06:59 Last Admin: 04/23/21 05:05 Dose: 100 mls/hr Documented by: Norepinephrine Bitartrate 4 mg (/ Dextrose) 254 mls @ 0 mls/hr IV .Q0M ANNIE; Protocol Last Titration: 04/22/21 05:16 Dose: 0 mcg/min, 0 mls/hr Documented by: Heparin Sodium/Sodium Chloride (Heparin Drip) 25,000 unit in 500 mls @ 0 mls/hr IV .Q0M ANNIE; Protocol Last Admin: 04/23/21 04:22 Dose: 20 unit/kg/hr, 24.39 mls/hr Documented by: dexmedeTOMIDine 0.9 % NaCL (Precedex) 400 mcg in 100 mls @ 0 mls/hr IV .Q0M ANNIE; Protocol Last Titration: 04/21/21 01:15 Dose: 0 mcg/kg/hr, 0 mls/hr Documented by: Albumin Human (Albumin) 12.5 gm in 50 mls @ 60 mls/hr IV PRN PRN PRN Reason: Hypotension and/or symptomatic Propofol (Diprivan) 1,000 mg in 100 mls @ 0 mls/hr IV .Q0M ANNIE; Protocol Last Titration: 04/23/21 04:45 Dose: 20 mcg/kg/min, 7.32 mls/hr Documented by: Fentanyl 2,500 mcg/ Sodium (Chloride) 250 mls @ 0 mls/hr IV .Q0M ANNIE; Protocol Last Admin: 04/23/21 03:52 Dose: 50 mcg/hr, 5 mls/hr Documented by: Dextrose (D5w) 500 mls @ 100 mls/hr IV ONCE PRN; Protocol PRN Reason: Adult Acute Hypoglycemia Prot Insulin Human Lispro (Insulin Lispro 100 Unit/1 Ml) 0 unit SUBCUT WM&BEDTIME ANNIE; Protocol Lactulose (Lactulose Oral Liq 20 Gm/30 Ml Udc) 10 gm PO DAILY PRN PRN Reason: CONSTIPATION Lorazepam (Lorazepam 2 Mg/Ml Inj 1 Ml) 2 mg IVP Q4H PRN PRN Reason: ANXIETY Last Admin: 04/21/21 00:01 Dose: 2 mg Documented by: Naloxone HCl (Naloxone 0.4 Mg/Ml Sdv) 0.1 mg IVP Q2M PRN PRN Reason: OPIATERV Ondansetron HCl (Ondansetron 2 Mg/Ml Sdv 2 Ml) 4 mg IVP Q8H PRN PRN Reason: vomiting, or N/V if npo Last Admin: 04/20/21 19:18 Dose: 4 mg Documented by: Senna/Docusate Sodium (Sennosides-Docusate Tablet) 2 tab PO DAILY ANNIE Last Admin: 04/22/21 09:06 Dose: 2 tab Documented by: Vitals/I&O/Wt Last Vital Signs Temp 98.9 F 05/01/21 04:00 Pulse 88 05/01/21 09:30 Resp 24 H 05/01/21 08:27 BP 107/76 05/01/21 09:30 Pulse Ox 100 05/01/21 09:30 04/30/21 05/01/21 05/01/21 22:59 06:59 14:59 Intake Total 180.933 / 453.881 100 / 553.881 208.128 / 208.128 Output Total 125 / 2399 Balance 180.933 / -1820.119 -25 / -1845.119 208.128 / 208.128 Weight last 48 hrs Weight 70.08 kg Weight 69.6 kg Physical Exam Narrative: Constitutional: Intubated and vented HEENT: Wet mucosa, no jvp, non icteric Lungs: Bilaterally clear without discernible wheeze or rales in all lung zones CVS: S1 S2, no murmurs Abdo: Soft, BS ok Ext 4: Minimal edema, peripheral perfusion with no cyanosis Neurological: Grossly non-focal Urinary Catheter Management: Wynn: Cath Placed During This Visit: yes, but has since been removed by the nurse Reason for Continuing Indwelling Catheter: Decision to DC Catheter Urinary Catheter Date of Insertion: 04/19/21 Urinary Catheter Time of Insertion: 01:00 Date Urinary Catheter Removed: 04/28/21 Time Urinary Catheter Discontinued: 10:30 Data : 05/01/21 03:57 05/01/21 03:57 Micro: Microbiology 04/30/21 08:30 C.difficile Toxin B Gene (PCR) - Final Stool 04/29/21 17:15 Gram Stain - Final Sputum - Endotracheal Tube Aspirate A&P Assessment and plan (1) ATN (acute tubular necrosis): 1. Acute kidney injury Remains oligoanuric, likely secondary to acute tubular injury On dialysis today Strict I's and O's Close monitoring for recovery Dose medication for GFR less than 15 on dialysis Bladder scan today No wynn 2. Vent dependent respiratory failure Management per the ICU team, extubation hopefully today 3. Pancreatitis Secondary to hypertriglyceridemia, triglyceride levels now trending down, below 500 mgmt per medicine 4. Chemistry Labs appreciated, look good Thank you for consultation, it is a pleasure to follow these cases with you Exam and interview performed with aid of bedside RN using telemedicine Time spent 20 min inc > 50% of time in face to face counseling Pollo Seo MD [facility] Renal [place] [id number] Status: Acute Attestations Medical Necessity Statement*: eval for TONY Coding Level of Care Code Acute Mobile Equipment Operator for g Fwd Diagnoses ATN (acute tubular necrosis) N17.0
--- NOTE | 2021-05-01 11:55 | P.PN_ITS ---
Subjective Subjective: Patient will go for dialysis today ABG reviewed Plan to extubate her today after dialysis Vitals/I&O/Wt Last Vital Signs Temp 98.9 F 05/01/21 04:00 Pulse 89 05/01/21 11:18 Resp 22 H 05/01/21 11:14 BP 107/76 05/01/21 09:30 Pulse Ox 99 05/01/21 11:14 04/30/21 05/01/21 05/01/21 22:59 06:59 14:59 Intake Total 180.933 / 453.881 100 / 553.881 208.128 / 208.128 Output Total 125 / 2399 Balance 180.933 / -1820.119 -25 / -1845.119 208.128 / 208.128 Weight last 48 hrs Weight 70.08 kg Physical Exam Narrative: Patient was much calm on minimal vent settings Getting dialyzed Sedated and intubated Trace edema of legs assisted bilateral breath sounds S1, S2 sinus rhythm Firm abdomen Urinary Catheter Management: Carroll: Cath Placed During This Visit: yes, but has since been removed by the nurse Reason for Continuing Indwelling Catheter: Decision to DC Catheter Urinary Catheter Date of Insertion: 04/19/21 Urinary Catheter Time of Insertion: 01:00 Date Urinary Catheter Removed: 04/28/21 Time Urinary Catheter Discontinued: 10:30 Data : 05/01/21 03:57 05/01/21 03:57 Micro: Microbiology 04/30/21 08:30 C.difficile Toxin B Gene (PCR) - Final Stool 04/29/21 17:15 Gram Stain - Final Sputum - Endotracheal Tube Aspirate A&P Assessment and plan (1) Pulmonary embolism: Status: Acute (2) Hypovolemic shock: Status: Acute (3) Aspiration pneumonia: Status: Acute (4) Acute respiratory distress syndrome (ARDS) due to 2019 novel coronavirus: Status: Acute (5) ATN (acute tubular necrosis): Status: Acute (6) COVID: Status: Acute (7) Acute encephalopathy: Status: Acute (8) Pneumonia: Status: Acute (9) Lactic acidosis: Status: Acute (10) Acute kidney injury: Status: Acute (11) Acute pancreatitis: Status: Acute (12) Hypertriglyceridemia: Status: Acute Plan Today our plan is to get her dialyzed first and then extubate, if she fails extubation trial then she will need trach PEG and permanent dialysis catheter possibly on Tuesday I have held her Eliquis yesterday Diarrhea: C. difficile negative Leukocytosis improved Febrile episodes noted Aspiration pneumonia continue antibiotics, cultures remain negative Full code Tube feeds at bedside Plan for extubation today Attestations Medical Necessity Statement*: Continue ICU management Time Spent in Patient Care: 15 minutes Coding Level of Care Code Acute Assistant Store Director for Chg Fwd Diagnoses Pulmonary embolism I26.99 Hypovolemic shock R57.1 Aspiration pneumonia J69.0 Acute respiratory distress syndrome (ARDS) due to 2019 novel coronavirus U07.1; J80 ATN (acute tubular necrosis) N17.0 COVID U07.1 Acute encephalopathy G93.40 Pneumonia J18.9 Lactic acidosis E87.2 Acute kidney injury N17.9 Acute pancreatitis K85.90 Hypertriglyceridemia E78.1
[2021-05-01] MEDS: heparin, porcine 1,000 unit/mL INJ 10 mL 10000 UNIT HE (11:57)
[2021-05-01 11:59] LABS: Glucose Point of Care 102 mg/dL (70-110)
--- NOTE | 2021-05-01 14:37 | PC.NURSE ---
placed on pressure support on vent weaning at this time
--- NOTE | 2021-05-01 15:41 | PC.NURSE ---
extubated and placed on high flow o2 at this time ... monitoring .. tolerating at this time
--- NOTE | 2021-05-01 16:58 | NUR.SHIFT ---
Shift Note Frequent safety and comfort rounds continue. Orders and/or nursing care completed as indicated. Patient monitored for response to intervention and treatment have weaned off vent and extubated today and weaned o2 further to nc .. tolerating po ice chips to start sips .. Education provided includes sitting up to eat and swallow[]. mother at bedside verbalizes understanding Will continue to monitor.
[2021-05-01 17:35] LABS: Glucose Point of Care 141 mg/dL (70-110)
--- NOTE | 2021-05-01 19:53 | PC.NURSE ---
Pt's mother at bedside.
[2021-05-01 20:47] LABS: Glucose Point of Care 159 mg/dL (70-110)
[2021-05-01] MEDS: insulin lispro 100 unit/1 mL SUBCUT (20:53)
[2021-05-01] MEDS: dexmedeTOMIDine 0.9 % NaCL 400 MCG/100 ML PREMIX IV (21:21)
--- NOTE | 2021-05-01 22:46 | PC.NURSE ---
Pt resting quietly in bed with mom at bedside. Pt reports that she is very comfortable and does not wish to turn at this time.
[2021-05-02] VITALS (40 sets, daily range): BP systolic 116–142; BP diastolic 75–102; PULSE 88–113; RESP 18–39; TEMP 37.1; O2SAT 93–100
[2021-05-02] MEDS: famotidine 20 mg/2 mL INJ IVP ×2 (02:47→15:54)
--- NOTE | 2021-05-02 03:09 | PC.NURSE ---
Pt tearful and apologetic for an incontinent episode. Pt's mother reports that pt has been seeing and hearing things that aren't there. Precedex stopped.
--- NOTE | 2021-05-02 03:41 | PC.NURSE ---
Pt now cheerful and resting quietly.
[2021-05-02] MEDS: ipratropium-albuterol 3 mL Neb INHALATION ×7 (04:50→23:03)
--- NOTE | 2021-05-02 05:49 | PC.NURSE ---
When Precedex turned off at 0309 this morning, rate had been previously been decreased to 0.1 mcg/kg/hr. MAR had 0.3 mcg/kg/hr charted.
--- NOTE | 2021-05-02 06:37 | PM.PN ---
Subjective Subjective: Precious is doing well today. Extubated, chatty. Off vasopressor agents. Now making some urine. Denies any discomfort at this time. Dialysis went well yesterday. Medications: Reviewed: Yes Medication Review Details: Current Medications Acetaminophen (Acetaminophen 325 Mg Tablet) 650 mg PO Q6H PRN PRN Reason: Mild/Mod Pain Or Temp >/= 101 Albuterol/Ipratropium (Ipratropium-Albuterol 3 Ml Neb) 3 ml INHALATION Q6H.RESPIRATORY [facility] Last Admin: 04/23/21 03:41 Dose: 3 ml Documented by: Calcium Carbonate (Calcium Carbonate 500 Mg Chew Tablet) 1,000 mg PO TID ANNIE Last Admin: 04/22/21 21:31 Dose: 1,000 mg Documented by: Dexamethasone (Dexamethasone 10 Mg/Ml Inj) 6 mg IVP Q24H [facility] Last Admin: 04/22/21 13:38 Dose: 6 mg Documented by: Dextrose (Dextrose 50% Syringe 50 Ml) 25 ml IVP ONCE PRN; Protocol PRN Reason: hypoglycemia protocol Last Admin: 04/20/21 00:25 Dose: 25 ml Documented by: Dextrose (Dextrose 50% Syringe 50 Ml) 50 ml IVP PRN PRN; Protocol PRN Reason: hypoglycemia protocol Last Admin: 04/19/21 20:35 Dose: 50 ml Documented by: Dextrose (Dextrose 50% Syringe 50 Ml) 25 ml IVP ONCE PRN; Protocol PRN Reason: hypoglycemia protocol Dextrose (Dextrose 50% Syringe 50 Ml) 50 ml IVP PRN PRN; Protocol PRN Reason: hypoglycemia protocol Ergocalciferol (Ergocalciferol (Vitamin D2) 50,000 Unit Capsule) 50,000 unit PO Q7D [facility] Last Admin: 04/21/21 12:04 Dose: 50,000 unit Documented by: Famotidine (Famotidine 20 Mg/2 Ml Inj) 20 mg IVP Q12H ANNIE Last Admin: 04/23/21 01:38 Dose: 20 mg Documented by: Fenofibrate (Fenofibrate 145 Mg Tablet) 145 mg PO DAILY [facility] Last Admin: 04/22/21 09:06 Dose: 145 mg Documented by: Glucagon (Glucagon 1 Mg/Ml Inj 1 Ml) 1 mg IM ONCE PRN; Protocol PRN Reason: Adult Acute Hypoglycemia Prot Glucagon (Glucagon 1 Mg/Ml Inj 1 Ml) 1 mg IM ONCE PRN; Protocol PRN Reason: Adult Acute Hypoglycemia Prot. Heparin Sodium (Porcine) (Heparin 5,000 Unit/Ml Inj 1 Ml) 5,000 unit SUBCUT Q12H ANNIE Last Admin: 04/21/21 04:54 Dose: Not Given Documented by: Dextrose (D5w) 500 mls @ 100 mls/hr IV ONCE PRN; Protocol PRN Reason: Adult Acute Hypoglycemia Prot Last Infusion: 04/20/21 18:12 Dose: Infused Documented by: Insulin Human Regular 250 unit (/ Sodium Chloride) 252.5 mls @ 0 mls/hr IV .Q0M ANNIE; Protocol Last Titration: 04/22/21 21:29 Dose: 0 unit/hr, 0 mls/hr Documented by: Piperacillin Sod/Tazobactam (Sod 3.375 gm/ Sodium Chloride) 50 mls @ 12.5 mls/hr IV Q12H ANNIE; Protocol Last Infusion: 04/23/21 05:37 Dose: Infused Documented by: Dextrose/Sodium Chloride (Dextrose 5%-Sod Chloride 0.45%) 1,000 mls @ 200 mls/hr IV .Q5H [facility] Last Admin: 04/23/21 03:14 Dose: Not Given Documented by: Norepinephrine Bitartrate 4 mg (/ Dextrose) 254 mls @ 0 mls/hr IV .Q0M [facility]; Protocol Last Titration: 04/21/21 22:00 Dose: Infused Documented by: Remdesivir 100 mg/ Sodium (Chloride) 100 mls @ 100 mls/hr IV Q24H ANNIE Stop: 04/24/21 06:59 Last Admin: 04/23/21 05:05 Dose: 100 mls/hr Documented by: Norepinephrine Bitartrate 4 mg (/ Dextrose) 254 mls @ 0 mls/hr IV .Q0M [facility]; Protocol Last Titration: 04/22/21 05:16 Dose: 0 mcg/min, 0 mls/hr Documented by: Heparin Sodium/Sodium Chloride (Heparin Drip) 25,000 unit in 500 mls @ 0 mls/hr IV .Q0M ANNIE; Protocol Last Admin: 04/23/21 04:22 Dose: 20 unit/kg/hr, 24.39 mls/hr Documented by: dexmedeTOMIDine 0.9 % NaCL (Precedex) 400 mcg in 100 mls @ 0 mls/hr IV .Q0M [facility]; Protocol Last Titration: 04/21/21 01:15 Dose: 0 mcg/kg/hr, 0 mls/hr Documented by: Albumin Human (Albumin) 12.5 gm in 50 mls @ 60 mls/hr IV PRN PRN PRN Reason: Hypotension and/or symptomatic Propofol (Diprivan) 1,000 mg in 100 mls @ 0 mls/hr IV .Q0M ANNIE; Protocol Last Titration: 04/23/21 04:45 Dose: 20 mcg/kg/min, 7.32 mls/hr Documented by: Fentanyl 2,500 mcg/ Sodium (Chloride) 250 mls @ 0 mls/hr IV .Q0M ANNIE; Protocol Last Admin: 04/23/21 03:52 Dose: 50 mcg/hr, 5 mls/hr Documented by: Dextrose (D5w) 500 mls @ 100 mls/hr IV ONCE PRN; Protocol PRN Reason: Adult Acute Hypoglycemia Prot Insulin Human Lispro (Insulin Lispro 100 Unit/1 Ml) 0 unit SUBCUT WM&BEDTIME ANNIE; Protocol Lactulose (Lactulose Oral Liq 20 Gm/30 Ml Udc) 10 gm PO DAILY PRN PRN Reason: CONSTIPATION Lorazepam (Lorazepam 2 Mg/Ml Inj 1 Ml) 2 mg IVP Q4H PRN PRN Reason: ANXIETY Last Admin: 04/21/21 00:01 Dose: 2 mg Documented by: Naloxone HCl (Naloxone 0.4 Mg/Ml Sdv) 0.1 mg IVP Q2M PRN PRN Reason: OPIATERV Ondansetron HCl (Ondansetron 2 Mg/Ml Sdv 2 Ml) 4 mg IVP Q8H PRN PRN Reason: vomiting, or N/V if npo Last Admin: 04/20/21 19:18 Dose: 4 mg Documented by: Senna/Docusate Sodium (Sennosides-Docusate Tablet) 2 tab PO DAILY ANNIE Last Admin: 04/22/21 09:06 Dose: 2 tab Documented by: Vitals/I&O/Wt Last Vital Signs Temp 98.7 F 05/02/21 04:00 Pulse 102 H 05/02/21 06:00 Resp 34 H 05/02/21 05:30 BP 123/75 05/02/21 05:30 Pulse Ox 98 05/02/21 05:30 05/01/21 05/01/21 05/02/21 14:59 22:59 06:59 Intake Total 208.128 / 208.128 209.012 / 417.140 186.506 / 603.646 Output Total 5611 / 5611 50 / 5661 Balance -5402.872 / -5402.872 159.012 / -5243.860 186.506 / -5057.354 Weight last 48 hrs Weight 69.6 kg Weight 70.08 kg Physical Exam Narrative: Constitutional: Intubated and vented HEENT: Wet mucosa, no jvp, non icteric Lungs: Bilaterally clear without discernible wheeze or rales in all lung zones CVS: S1 S2, no murmurs Abdo: Soft, BS ok Ext 4: Minimal edema, peripheral perfusion with no cyanosis Neurological: Grossly non-focal Urinary Catheter Management: Wynn: Cath Placed During This Visit: yes, but has since been removed by the nurse Reason for Continuing Indwelling Catheter: Decision to DC Catheter Urinary Catheter Date of Insertion: 04/19/21 Urinary Catheter Time of Insertion: 01:00 Date Urinary Catheter Removed: 04/28/21 Time Urinary Catheter Discontinued: 10:30 Data : 05/01/21 03:57 05/01/21 03:57 Micro: Microbiology 04/29/21 17:15 Gram Stain - Final Sputum - Endotracheal Tube Aspirate Sputum Culture - Preliminary Yeast A&P Assessment and plan (1) ATN (acute tubular necrosis): 1. Acute kidney injury Remains oligoanuric, likely secondary to acute tubular injury Urine output improving. Monitor over the weekend, plan for dialysis on Tuesday. Strict I's and O's Close monitoring for recovery Dose medication for GFR less than 15 on dialysis Bladder scan today No wynn 2. Pancreatitis Secondary to hypertriglyceridemia, triglyceride levels now trending down, below 500 mgmt per medicine 3. Chemistry Labs appreciated, look good Nice and stable, okay for transfer to medical floor. Thank you for consultation, it is a pleasure to follow these cases with you Exam and interview performed with aid of bedside RN using telemedicine Time spent 20 min inc > 50% of time in face to face counseling Pollo Seo MD [facility] Ren[facility] [phone] Status: Acute Attestations Medical Necessity Statement*: buddy Coding Level of Care Code Acute Freight Claim Investigator for Chg Fwd Diagnoses ATN (acute tubular necrosis) N17.0
[2021-05-02 08:13] LABS: Glucose Point of Care 92 mg/dL (70-110)
[2021-05-02] MEDS: predniSONE 20 mg Tablet 30 MG PO (08:28)
[2021-05-02] MEDS: fenofibrate 145 mg Tablet PO (08:28)
[2021-05-02] MEDS: calcium carbonate 500 mg Chew Tablet 1000 MG PO ×3 (08:28→20:27)
[2021-05-02] MEDS: quetiapine 25 mg Tablet PO ×2 (08:29→20:27)
[2021-05-02] MEDS: metoprolol tartrate 25 mg Tablet PO ×2 (08:31→20:26)
--- NOTE | 2021-05-02 10:34 | PC.NURSE ---
rectal tube removed at this time torsten care done up in bed....
[2021-05-02 11:53] LABS: Glucose Point of Care 121 mg/dL (70-110)
[2021-05-02 12:59] LABS: Basophils # 0.1 10^3/uL (0.0-0.1); Basophils % 0.6 %; Eosinophils # 0.1 10^3/uL (0.0-0.8); Eosinophils % 0.7 %; Hematocrit 32.3 % (37.0-47.0); Hemoglobin 9.9 g/dL (11.5-15.3); Lymphocytes # 1.5 10^3/uL (0.8-4.8); Mean Corpuscular HGB Conc 30.7 g/dL (30.0-36.0); Mean Corpuscular Volume 101.3 fl (81-99); Mean Platelet Volume 11.7 fL (7.4-10.4); Monocytes % 7.1 %; Neutrophils # 10.53 10^3/uL (1.8-7.7); Neutrophils % 76.9 %; Nucleated Red Blood Cells % 0.3 %; Platelet Count 166 10^3/cmm (130-400); Red Blood Count 3.19 10^6/uL (4.1-5.3); Red Cell Distribution Width 16.4 % (12.1-15.1); White Blood Count 13.7 10^3/uL (4.0-10.0)
[2021-05-02 13:13] LABS: Anion Gap 20.2 (5-19); Blood Urea Nitrogen 34 mg/dL (6-20); Carbon Dioxide 22 mmol/L (22-29); Chloride 97 mmol/L (98-107); Glomerular Filtration Rate 16.1 mL/min (90-130); Glucose 138 mg/dL (65-115); Osmolality Calculated 290 mOsm/kg (285-295); Potassium 4.2 mmol/L (3.5-5.1); Sodium 135 mmol/L (136-145)
--- NOTE | 2021-05-02 14:35 | PC.SOCIAL ---
IMM Update pg 2 of IMM updated and reviewed w/ patient and her dad who is @ bedside. Copy provided and copy in chart updated.
--- NOTE | 2021-05-02 15:55 | PM.PN ---
Subjective Subjective: Patient is doing remarkably well after extubation, she is able to crack jokes with the attendance, However not able to get out of bed, extremely weak Nonfocal neuro exam As per the nursing staff she made 2050 cc of urine, Carroll catheter has been removed Plan is to evaluate her until Tuesday and possibly she will go for permacath placement next week, Dr. Sue is aware, will update him next week as well, family at the bedside Bedside eval, advance her diet PT/speech eval, OT requested Can be transferred out of ICU once bed is available Vitals/I&O/Wt Last Vital Signs Temp 98.7 F 05/02/21 04:00 Pulse 112 H 05/02/21 14:00 Resp 24 H 05/02/21 13:00 BP 124/89 05/02/21 13:00 Pulse Ox 98 05/02/21 13:00 05/02/21 05/02/21 05/02/21 06:59 14:59 22:59 Intake Total 186.506 / 603.646 650 / 650 240 / 890 Output Total 250 / 250 250 / 500 Balance 186.506 / -5057.354 400 / 400 -10 / 390 Weight last 48 hrs Weight 65.998 kg Weight 69.6 kg Weight 70.08 kg Physical Exam Narrative: Patient is wide awake and alert Cracking jokes Nonfocal neuro exam Extremely fatigued and tired Muscle weakness Abdomen is not firm Less edematous No signs of aspiration when she was provided food Family at the bedside S1, S2 No audible stridor or wheezing Saturating well on 1 to 2 L nasal cannula Urinary Catheter Management: Carroll: Cath Placed During This Visit: yes, but has since been removed by the nurse Reason for Continuing Indwelling Catheter: Decision to DC Catheter Urinary Catheter Date of Insertion: 04/19/21 Urinary Catheter Time of Insertion: 01:00 Date Urinary Catheter Removed: 04/28/21 Time Urinary Catheter Discontinued: 10:30 Data : 05/02/21 12:16 05/02/21 12:16 Micro: Microbiology 04/29/21 17:15 Gram Stain - Final Sputum - Endotracheal Tube Aspirate Sputum Culture - Preliminary Yeast A&P Assessment and plan (1) Pulmonary embolism: Status: Acute (2) Hypovolemic shock: Status: Acute (3) Aspiration pneumonia: Status: Acute (4) Acute respiratory distress syndrome (ARDS) due to 2019 novel coronavirus: Status: Acute (5) ATN (acute tubular necrosis): Status: Acute (6) COVID: Status: Acute (7) Hypertriglyceridemia: Status: Acute (8) Acute pancreatitis: Status: Acute Plan Today my plan is to evaluate her with PT/OT and speech therapy For her PE continue Eliquis renally dosed Wean her off oxygen she is only requiring 1 to 2 L of nasal cannula at this point Nonfocal neuro exam 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 She most likely will need rehab at the time of discharge Plan for permacath placement on Tuesday if she remains oliguric, as per the nursing staff july 250 cc of urine overnight Plan to de-escalate her antibiotics tomorrow if she remains afebrile, no fever since her extubation Cultures remain negative, yeast found in the sputum culture Resume Eliquis today and hold on Tuesday Change Seroquel to bedtime only Attestations Medical Necessity Statement*: Continue ICU management Time Spent in Patient Care: 20min Coding Level of Care Code Acute Corporate Intern for [facility] Fwd Diagnoses Pulmonary embolism I26.99 Hypovolemic shock R57.1 Aspiration pneumonia J69.0 Acute respiratory distress syndrome (ARDS) due to 2019 novel coronavirus U07.1; J80 ATN (acute tubular necrosis) N17.0 COVID U07.1 Hypertriglyceridemia E78.1 Acute pancreatitis K85.90
--- NOTE | 2021-05-02 16:25 | NUR.SHIFT ---
Shift Note Frequent safety and comfort rounds continue. nursing care completed as indicated washed hair and combed out attempt to sit up with pt extremely weak Patient monitored for response to intervention and treatment given soft ball to increase strenght in hands
[2021-05-02 17:28] LABS: Glucose Point of Care 147 mg/dL (70-110)
[2021-05-02] MEDS: insulin lispro 100 unit/1 mL SUBCUT ×2 (17:31→20:40)
[2021-05-02 20:20] LABS: Glucose Point of Care 144 mg/dL (70-110)
[2021-05-02] MEDS: apixaban 5 mg Tablet 2.5 MG PO (20:27)
[2021-05-03] VITALS (31 sets, daily range): BP systolic 116–144; BP diastolic 79–111; PULSE 98–120; RESP 18–40; TEMP 36.6–37.8; O2SAT 91–94
[2021-05-03] MEDS: famotidine 20 mg/2 mL INJ IVP ×2 (01:37→15:15)
[2021-05-03] MEDS: ipratropium-albuterol 3 mL Neb INHALATION ×5 (03:18→23:35)
[2021-05-03 04:47] LABS: Basophils # 0.1 10^3/uL (0.0-0.1); Basophils % 0.6 %; Eosinophils # 0.2 10^3/uL (0.0-0.8); Eosinophils % 1.7 %; Hematocrit 30.4 % (37.0-47.0); Hemoglobin 9.4 g/dL (11.5-15.3); Lymphocytes # 2.3 10^3/uL (0.8-4.8); Lymphocytes % 22.1 %; Mean Corpuscular HGB Conc 30.9 g/dL (30.0-36.0); Mean Corpuscular Hemoglobin 30.5 pg (28.0-34.0); Mean Corpuscular Volume 98.7 fl (81-99); Mean Platelet Volume 11.7 fL (7.4-10.4); Monocytes # 1.5 10^3/uL (0.2-0.9); Monocytes % 14.1 %; Neutrophils # 6.25 10^3/uL (1.8-7.7); Neutrophils % 58.9 %; Nucleated Red Blood Cells % 0.3 %; Platelet Count 147 10^3/cmm (130-400); Red Blood Count 3.08 10^6/uL (4.1-5.3); Red Cell Distribution Width 16.5 % (12.1-15.1); White Blood Count 10.6 10^3/uL (4.0-10.0)
[2021-05-03 04:57] LABS: Blood Urea Nitrogen 48 mg/dL (6-20); Calcium 8.7 mg/dL (8.5-10.5); Carbon Dioxide 20 mmol/L (22-29); Chloride 100 mmol/L (98-107); Glomerular Filtration Rate 14.1 mL/min (90-130); Glucose 91 mg/dL (65-115); Osmolality Calculated 292 mOsm/kg (285-295); Sodium 135 mmol/L (136-145)
[2021-05-03 04:58] LABS: Anion Gap 18.6 (5-19); Creatinine Clr Calc Pharmacy 17.7858; Potassium 3.6 mmol/L (3.5-5.1)
--- NOTE | 2021-05-03 07:18 | P.PN_ITS ---
Subjective Subjective: extubated. feels well. no n/v/f/c/ravi/d/leg pains/ sob. is eating, and urinating. Medications: Reviewed: Yes Medication Review Details: Current Medications Acetaminophen (Acetaminophen 325 Mg Tablet) 650 mg PO Q6H PRN PRN Reason: Mild/Mod Pain Or Temp >/= 101 Last Admin: 04/30/21 11:37 Dose: 650 mg Documented by: Albuterol/Ipratropium (Ipratropium-Albuterol 3 Ml Neb) 3 ml INHALATION Q4H.RESPIRATORY [facility] Last Admin: 05/03/21 03:18 Dose: 3 ml Documented by: Apixaban (Apixaban 5 Mg Tablet) 2.5 mg PO BID@0900,2100 [facility] Last Admin: 05/02/21 20:27 Dose: 2.5 mg Documented by: Calcium Carbonate (Calcium Carbonate 500 Mg Chew Tablet) 1,000 mg PO TID [facility] Last Admin: 05/02/21 20:27 Dose: 1,000 mg Documented by: Dextrose (Dextrose 50% Syringe 50 Ml) 25 ml IVP ONCE PRN; Protocol PRN Reason: hypoglycemia protocol Last Admin: 04/20/21 00:25 Dose: 25 ml Documented by: Dextrose (Dextrose 50% Syringe 50 Ml) 50 ml IVP PRN PRN; Protocol PRN Reason: hypoglycemia protocol Last Admin: 04/19/21 20:35 Dose: 50 ml Documented by: Dextrose (Dextrose 50% Syringe 50 Ml) 25 ml IVP ONCE PRN; Protocol PRN Reason: hypoglycemia protocol Dextrose (Dextrose 50% Syringe 50 Ml) 50 ml IVP PRN PRN; Protocol PRN Reason: hypoglycemia protocol Ergocalciferol (Ergocalciferol (Vitamin D2) 50,000 Unit Capsule) 50,000 unit PO Q7D [facility] Last Admin: 04/28/21 08:01 Dose: 50,000 unit Documented by: Famotidine (Famotidine 20 Mg/2 Ml Inj) 20 mg IVP Q12H [facility] Last Admin: 05/03/21 01:37 Dose: 20 mg Documented by: Fenofibrate (Fenofibrate 145 Mg Tablet) 145 mg PO DAILY [facility] Last Admin: 05/02/21 08:28 Dose: 145 mg Documented by: Glucagon (Glucagon 1 Mg/Ml Inj 1 Ml) 1 mg IM ONCE PRN; Protocol PRN Reason: Adult Acute Hypoglycemia Prot. Heparin Sodium (Porcine) (Heparin 5,000 Unit/Ml Inj 1 Ml) 5,000 unit SUBCUT Q12H [facility] Last Admin: 04/21/21 04:54 Dose: Not Given Documented by: dexmedeTOMIDine 0.9 % NaCL (Precedex) 400 mcg in 100 mls @ 0 mls/hr IV .Q0M [facility]; Protocol Last Titration: 05/02/21 03:09 Dose: 0 mcg/kg/hr, 0 mls/hr Documented by: Dextrose (D5w) 500 mls @ 100 mls/hr IV ONCE PRN; Protocol PRN Reason: Adult Acute Hypoglycemia Prot Albumin Human (Albumin) 12.5 gm in 50 mls @ 60 mls/hr IV PRN PRN PRN Reason: Hypotension and/or symptomatic Imipenem/Cilastatin Sodium 250 (mg/ Sodium Chloride) 100 mls @ 200 mls/hr IV Q12H [facility]; Protocol Last Infusion: 05/03/21 02:15 Dose: Infused Documented by: Insulin Human Lispro (Insulin Lispro 100 Unit/1 Ml) 0 unit SUBCUT WM&BEDTIME [facility]; Protocol Last Admin: 05/02/21 20:40 Dose: 2 unit Documented by: Labetalol HCl (Labetalol 5 Mg/Ml Sdv 20ml) 10 mg IVP Q4H PRN PRN Reason: HYPERTENSION Last Admin: 04/28/21 08:02 Dose: 10 mg Documented by: Lactulose (Lactulose Oral Liq 20 Gm/30 Ml Udc) 10 gm PEG-TUBE DAILY PRN PRN Reason: CONSTIPATION Lorazepam (Lorazepam 2 Mg/Ml Inj 1 Ml) 0.5 mg IVP Q4H PRN PRN Reason: ANXIETY Last Admin: 04/28/21 10:40 Dose: 0.5 mg Documented by: Metoprolol Tartrate (Metoprolol Tartrate 25 Mg Tablet) 25 mg PO BID@0900,2100 [facility] Last Admin: 05/02/21 20:26 Dose: 25 mg Documented by: Naloxone HCl (Naloxone 0.4 Mg/Ml Sdv) 0.1 mg IVP Q2M PRN PRN Reason: OPIATERV Ondansetron HCl (Ondansetron 2 Mg/Ml Sdv 2 Ml) 4 mg IVP Q8H PRN PRN Reason: vomiting, or N/V if npo Last Admin: 04/30/21 04:58 Dose: 4 mg Documented by: Quetiapine Fumarate (Quetiapine 25 Mg Tablet) 25 mg PO BEDTIME [facility] Last Admin: 05/02/21 20:27 Dose: 25 mg Documented by: Senna/Docusate Sodium (Sennosides-Docusate Tablet) 2 tab PO DAILY [facility] Last Admin: 05/02/21 08:31 Dose: Not Given Documented by: Vitals/I&O/Wt Last Vital Signs Temp 98.2 F 05/03/21 04:00 Pulse 109 H 05/03/21 06:00 Resp 28 H 05/03/21 04:00 BP 116/79 05/03/21 04:00 Pulse Ox 94 05/03/21 03:19 05/02/21 05/03/21 05/03/21 22:59 06:59 14:59 Intake Total 750 / 1400 100 / 1500 Output Total 450 / 700 400 / 1100 Balance 300 / 700 -300 / 400 Weight last 48 hrs Weight 65.998 kg Weight 69.6 kg Physical Exam Narrative: comfortable, nard in bed heent- nc/at, eomi, anicteric neck supple- rt ij dialysis catheter lungs clear b/l heart reg, +ROBERT abd soft, nt, nd, + bs ext trace feet edema neuro- a,a, o x 2+, weak Urinary Catheter Management: Wynn: Cath Placed During This Visit: yes, but has since been removed by the nurse Reason for Continuing Indwelling Catheter: Decision to DC Catheter Urinary Catheter Date of Insertion: 04/19/21 Urinary Catheter Time of Insertion: 01:00 Date Urinary Catheter Removed: 04/28/21 Time Urinary Catheter Discontinued: 10:30 Data : 05/03/21 04:06 05/03/21 04:06 A&P Assessment and plan (1) ATN (acute tubular necrosis): 40 yr old female 1. Acute kidney injury Remains oligoanuric, likely secondary to acute tubular injury Urine output improving. Monitor UOP and chemistries Dose medication for GFR less than 15 on dialysis No wynn -try to hold on permacath 2. anemia- hgb stable - ferritin 481, tsat 23% 3. Pancreatitis Secondary to hypertriglyceridemia, triglyceride levels now trending down, below 500 mgmt per medicine 4. hyponatremia- mild 5. replace vit d 6. monitor hr -avoid hypotension Exam and interview performed with aid of bedside RN using telemedicine Time spent 30 min inc > 50% of time in face to face counseling [facility] Mahesh Ricci MD Status: Acute Plan see above Attestations Medical Necessity Statement*: buddy, anemia, electrolyte abnormalities Time Spent in Patient Care: 16 - 35 minutes (>than 50% of time spent in counselling and/or direct pt care on unit) . Coding Level of Care Code Acute Associate Merchant for [facility] Diagnoses ATN (acute tubular necrosis) N17.0
[2021-05-03 07:40] LABS: Glucose Point of Care 93 mg/dL (70-110)
[2021-05-03] MEDS: sodium chloride 0.9% 1,000 ML 75 ML IV ×2 (07:46→21:43)
[2021-05-03] MEDS: calcium carbonate 500 mg Chew Tablet 1000 MG PO ×3 (09:19→21:44)
[2021-05-03] MEDS: fenofibrate 145 mg Tablet PO (09:19)
[2021-05-03] MEDS: apixaban 5 mg Tablet 2.5 MG PO ×2 (09:19→21:45)
[2021-05-03] MEDS: metoprolol tartrate 25 mg Tablet PO (09:20)
[2021-05-03 11:23] LABS: Glucose Point of Care 120 mg/dL (70-110)
--- NOTE | 2021-05-03 11:28 | PC.NURSE ---
father in room with pt up in chair with pt total assist remain very weak in all extremities. pt and ot in progress incontinet of urine at this time and stool remains loose
--- NOTE | 2021-05-03 12:25 | PM.PN ---
Subjective Subjective: No plan for permacath placement patient is making urine, she is not oliguric anymore 1100 mL urine output noted overnight Afebrile Doing well, had 1 bowel movement, Diarrhea improved Hemodynamically stable Doing well on room air Vitals/I&O/Wt Last Vital Signs Temp 98.2 F 05/03/21 04:00 Pulse 120 H 05/03/21 09:00 Resp 33 H 05/03/21 09:00 BP 132/84 05/03/21 09:00 Pulse Ox 93 05/03/21 08:30 05/02/21 05/03/21 05/03/21 22:59 06:59 14:59 Intake Total 750 / 1400 100 / 1500 200 / 200 Output Total 450 / 700 400 / 1100 Balance 300 / 700 -300 / 400 200 / 200 Weight last 48 hrs Weight 65.998 kg Weight 69.6 kg Physical Exam Narrative: Patient is stating that she is feeling fine Cracking jokes with attendance Nonpitting edema of legs Abdomen firm however soft Awake and alert Oriented Nonfocal neuro exam Doing well on room air No audible stridor or wheezing Temporary dialysis catheter in place Urinary Catheter Management: Carroll: Cath Placed During This Visit: yes, but has since been removed by the nurse Reason for Continuing Indwelling Catheter: Decision to DC Catheter Urinary Catheter Date of Insertion: 04/19/21 Urinary Catheter Time of Insertion: 01:00 Date Urinary Catheter Removed: 04/28/21 Time Urinary Catheter Discontinued: 10:30 Data : 05/03/21 04:06 05/03/21 04:06 A&P Assessment and plan (1) Pulmonary embolism: Status: Acute (2) Abnormal transaminases: Status: Acute (3) Hypovolemic shock: Status: Acute (4) Aspiration pneumonia: Status: Acute (5) Acute respiratory distress syndrome (ARDS) due to 2019 novel coronavirus: Status: Acute (6) Acute pancreatitis: Status: Acute (7) Hypertriglyceridemia: Status: Acute (8) ATN (acute tubular necrosis): Status: Acute (9) Increased anion gap metabolic acidosis: Status: Acute (10) Acute encephalopathy: Status: Acute Plan Patient extubated 05/01 Since extubation no febrile events, de-escalate antibiotics today PT/OT She is tolerating her diet Appreciate speech evaluation She has ICU related myopathy Family is requesting home health services instead of half-way placement For acute pulmonary embolism she can take Eliquis now For aspiration pneumonia I would continue antibiotics ATN: Temporary dialysis catheter in place, no plan for permacath placement at this point since her urine output has picked up however creatinine has not improved significantly We will follow up with nephrology Encephalopathy: Resolved Pneumonia: Improved Pancreatitis related to hypertriglyceridemia: Resolved Full code Attestations Medical Necessity Statement*: Transfer out of ICU Time Spent in Patient Care: 15 minutes Coding Level of Care Code Acute Server Assistant for [facility] Diagnoses Pulmonary embolism I26.99 Abnormal transaminases R74.8 Hypovolemic shock R57.1 Aspiration pneumonia J69.0 Acute respiratory distress syndrome (ARDS) due to 2019 novel coronavirus U07.1; J80 Acute pancreatitis K85.90 Hypertriglyceridemia E78.1 ATN (acute tubular necrosis) N17.0 Increased anion gap metabolic acidosis E87.2 Acute encephalopathy G93.40
[2021-05-03] MEDS: heparin 5,000 unit/mL INJ 1 mL 5000 UNIT SUBCUT (15:37)
[2021-05-03 16:59] LABS: Glucose Point of Care 125 mg/dL (70-110)
[2021-05-03] MEDS: amoxicillin-clav 875-125 mg Tablet 1 TAB PO (18:06)
[2021-05-03 20:31] LABS: Glucose Point of Care 117 mg/dL (70-110)
[2021-05-03] MEDS: metoprolol tartrate 25 mg Tablet 50 MG PO (21:44)
[2021-05-03] MEDS: quetiapine 25 mg Tablet PO (21:45)
[2021-05-04] VITALS (17 sets, daily range): BP systolic 106–143; BP diastolic 70–96; PULSE 96–118; RESP 16–30; TEMP 36.7–37.3; O2SAT 90–97
[2021-05-04] MEDS: heparin 5,000 unit/mL INJ 1 mL 5000 UNIT SUBCUT (03:09)
[2021-05-04] MEDS: ipratropium-albuterol 3 mL Neb INHALATION ×5 (03:11→23:26)
[2021-05-04 05:19] LABS: Basophils # 0.1 10^3/uL (0.0-0.1); Basophils % 0.7 %; Eosinophils # 0.2 10^3/uL (0.0-0.8); Eosinophils % 2.4 %; Hematocrit 29.3 % (37.0-47.0); Hemoglobin 9.2 g/dL (11.5-15.3); Lymphocytes # 1.8 10^3/uL (0.8-4.8); Lymphocytes % 27.1 %; Mean Corpuscular HGB Conc 31.4 g/dL (30.0-36.0); Mean Corpuscular Hemoglobin 31.4 pg (28.0-34.0); Monocytes # 1.1 10^3/uL (0.2-0.9); Neutrophils # 3.46 10^3/uL (1.8-7.7); Neutrophils % 50.9 %; Nucleated Red Blood Cells % 0.4 %; Platelet Count 184 10^3/cmm (130-400); Red Blood Count 2.93 10^6/uL (4.1-5.3); Red Cell Distribution Width 17.2 % (12.1-15.1); White Blood Count 6.8 10^3/uL (4.0-10.0)
[2021-05-04] MEDS: famotidine 20 mg/2 mL INJ IVP ×2 (05:19→15:55)
[2021-05-04 05:41] LABS: Alanine Aminotransferase < 5 U/L (0-33); Albumin Level 2.8 g/dL (3.5-5.2); Alkaline Phosphatase 177 IU/L (35-105); Anion Gap 19.2 (5-19); Aspartate Amino Transferase 15 U/L (0-32); Blood Urea Nitrogen 54 mg/dL (6-20); Calcium 7.8 mg/dL (8.5-10.5); Carbon Dioxide 21 mmol/L (22-29); Chloride 103 mmol/L (98-107); Globulin 2.7 g/dL (1.3-4.6); Glomerular Filtration Rate 10.6 mL/min (90-130); Glucose 103 mg/dL (65-115); Magnesium 1.9 mg/dL (1.7-2.3); Osmolality Calculated 305 mOsm/kg (285-295); Potassium 3.2 mmol/L (3.5-5.1); Sodium 140 mmol/L (136-145); Total Bilirubin 0.6 mg/dL (0.15-1.2); Total Protein 5.5 g/dL (6.6-8.7)
[2021-05-04 06:39] LABS: Glucose Point of Care 95 mg/dL (70-110)
--- NOTE | 2021-05-04 08:59 | PM.PN ---
Subjective Subjective: Patient transferred from ICU yesterday, her urine output has not been measured accurately, I have asked today nurse to monitor her urine output, I was told she had 200 mL output this morning Patient was eating breakfast 1 bowel movement Not noting chest pain or shortness of breath Endorsing weakness of her arms bilaterally I do not see any neurological focal deficits Icu myopathy Permacath placement on hold Creatinine 4.6 Vitals/I&O/Wt Last Vital Signs Temp 98.3 F 05/04/21 08:00 Pulse 109 H 05/04/21 08:00 Resp 18 05/04/21 08:00 BP 135/91 05/04/21 08:00 Pulse Ox 92 05/04/21 08:00 05/03/21 05/04/21 05/04/21 22:59 06:59 14:59 Intake Total 1280 / 1600 Balance 1280 / 1600 Weight last 48 hrs Weight 72.66 kg Physical Exam Narrative: Patient was laying supine Eating breakfast She does show signs of ICU related myopathy S1, S2 Looks euvolemic Right IJ temporary dialysis catheter in place No signs of edema of legs Abdomen is soft She is saturating well on room air Urinary Catheter Management: Carroll: Cath Placed During This Visit: yes, but has since been removed by the nurse Reason for Continuing Indwelling Catheter: Decision to DC Catheter Urinary Catheter Date of Insertion: 04/19/21 Urinary Catheter Time of Insertion: 01:00 Date Urinary Catheter Removed: 04/28/21 Time Urinary Catheter Discontinued: 10:30 Data : 05/04/21 04:45 05/04/21 04:45 Micro: Microbiology 04/28/21 21:29 Blood Culture - Final Blood NO GROWTH AFTER 5 DAYS 04/28/21 21:25 Blood Culture - Final Blood NO GROWTH AFTER 5 DAYS 04/29/21 17:15 Gram Stain - Final Sputum - Endotracheal Tube Aspirate Sputum Culture - Final Coco parapsilosis A&P Assessment and plan (1) Pulmonary embolism: Status: Acute (2) Aspiration pneumonia: Status: Acute (3) Abnormal transaminases: Status: Acute (4) Hypovolemic shock: Status: Acute (5) ATN (acute tubular necrosis): Status: Acute (6) Acute respiratory distress syndrome (ARDS) due to 2019 novel coronavirus: Status: Acute (7) Increased anion gap metabolic acidosis: Status: Acute (8) Acute pancreatitis: Status: Acute (9) GODFREY (generalized anxiety disorder): Status: Acute (10) Hypertriglyceridemia: Status: Acute Plan She has made significant progress in last 48 hours, she is not requiring oxygen anymore after extubation, she is doing well on room air Family is planning to take her home I will discharge her once nephrology clears her, currently permacath placement is on hold, she is not oliguric anymore, however creatinine has not improved significantly, today potassium is 3.2, BUN 54, no signs of uremic encephalopathy She unfortunately has suffered from ICU related myopathy need extensive PT/OT Hypertriglyceridemia with pancreatitis: Resolved Abnormal transaminases: Improved Patient currently is euglycemic Hemoglobin stable For her PE she has been started on Eliquis COVID-19 related ARDS: Resolved currently doing well on room air, off isolation Attestations Medical Necessity Statement*: Continue medical management Time Spent in Patient Care: 15 minutes Coding Level of Care Code Acute 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
--- NOTE | 2021-05-04 09:27 | P.PN_ITS ---
Subjective Subjective: incontinent. urinating. slept well. more awake and appropriate. + edema. no sob or cp Medications: Reviewed: Yes Medication Review Details: Current Medications Acetaminophen (Acetaminophen 325 Mg Tablet) 650 mg PO Q6H PRN PRN Reason: Mild/Mod Pain Or Temp >/= 101 Last Admin: 04/30/21 11:37 Dose: 650 mg Documented by: Albuterol/Ipratropium (Ipratropium-Albuterol 3 Ml Neb) 3 ml INHALATION Q4H.RESPIRATORY [facility] Last Admin: 05/04/21 08:57 Dose: 3 ml Documented by: Amoxicillin/Clavulanate Potassium (Amoxicillin-Clav 875-125 Mg Tablet) 1 tab PO BID [facility]; Protocol Last Admin: 05/03/21 18:06 Dose: 1 tab Documented by: Apixaban (Apixaban 5 Mg Tablet) 2.5 mg PO BID@0900,2100 [facility] Last Admin: 05/03/21 21:45 Dose: 2.5 mg Documented by: Calcium Carbonate (Calcium Carbonate 500 Mg Chew Tablet) 1,000 mg PO TID [facility] Last Admin: 05/03/21 21:44 Dose: 1,000 mg Documented by: Dextrose (Dextrose 50% Syringe 50 Ml) 25 ml IVP ONCE PRN; Protocol PRN Reason: hypoglycemia protocol Last Admin: 04/20/21 00:25 Dose: 25 ml Documented by: Dextrose (Dextrose 50% Syringe 50 Ml) 50 ml IVP PRN PRN; Protocol PRN Reason: hypoglycemia protocol Last Admin: 04/19/21 20:35 Dose: 50 ml Documented by: Dextrose (Dextrose 50% Syringe 50 Ml) 25 ml IVP ONCE PRN; Protocol PRN Reason: hypoglycemia protocol Dextrose (Dextrose 50% Syringe 50 Ml) 50 ml IVP PRN PRN; Protocol PRN Reason: hypoglycemia protocol Ergocalciferol (Ergocalciferol (Vitamin D2) 50,000 Unit Capsule) 50,000 unit PO Q7D [facility] Last Admin: 04/28/21 08:01 Dose: 50,000 unit Documented by: Famotidine (Famotidine 20 Mg/2 Ml Inj) 20 mg IVP Q12H [facility] Last Admin: 05/04/21 05:19 Dose: 20 mg Documented by: Fenofibrate (Fenofibrate 145 Mg Tablet) 145 mg PO DAILY [facility] Last Admin: 05/03/21 09:19 Dose: 145 mg Documented by: Glucagon (Glucagon 1 Mg/Ml Inj 1 Ml) 1 mg IM ONCE PRN; Protocol PRN Reason: Adult Acute Hypoglycemia Prot. Dextrose (D5w) 500 mls @ 100 mls/hr IV ONCE PRN; Protocol PRN Reason: Adult Acute Hypoglycemia Prot Albumin Human (Albumin) 12.5 gm in 50 mls @ 60 mls/hr IV PRN PRN PRN Reason: Hypotension and/or symptomatic Fluconazole (Diflucan Premix) 200 mg in 100 mls @ 100 mls/hr IV ONCE ONE Stop: 05/04/21 10:29 Insulin Human Lispro (Insulin Lispro 100 Unit/1 Ml) 0 unit SUBCUT WM&BEDTIME [facility]; Protocol Last Admin: 05/03/21 21:09 Dose: Not Given Documented by: Labetalol HCl (Labetalol 5 Mg/Ml Sdv 20ml) 10 mg IVP Q4H PRN PRN Reason: HYPERTENSION Last Admin: 04/28/21 08:02 Dose: 10 mg Documented by: Lactulose (Lactulose Oral Liq 20 Gm/30 Ml Udc) 10 gm PO DAILY PRN PRN Reason: CONSTIPATION Lorazepam (Lorazepam 2 Mg/Ml Inj 1 Ml) 0.5 mg IVP Q4H PRN PRN Reason: ANXIETY Last Admin: 04/28/21 10:40 Dose: 0.5 mg Documented by: Metoprolol Tartrate (Metoprolol Tartrate 25 Mg Tablet) 50 mg PO BID@0900,2100 [facility] Last Admin: 05/03/21 21:44 Dose: 50 mg Documented by: Naloxone HCl (Naloxone 0.4 Mg/Ml Sdv) 0.1 mg IVP Q2M PRN PRN Reason: OPIATERV Ondansetron HCl (Ondansetron 2 Mg/Ml Sdv 2 Ml) 4 mg IVP Q8H PRN PRN Reason: vomiting, or N/V if npo Last Admin: 04/30/21 04:58 Dose: 4 mg Documented by: Quetiapine Fumarate (Quetiapine 25 Mg Tablet) 25 mg PO BEDTIME [facility] Last Admin: 05/03/21 21:45 Dose: 25 mg Documented by: Senna/Docusate Sodium (Sennosides-Docusate Tablet) 2 tab PO DAILY [facility] Last Admin: 05/03/21 09:25 Dose: Not Given Documented by: Vitals/I&O/Wt Last Vital Signs Temp 98.3 F 05/04/21 08:00 Pulse 113 H 05/04/21 09:03 Resp 18 05/04/21 08:57 BP 135/91 05/04/21 08:00 Pulse Ox 94 05/04/21 08:57 05/03/21 05/04/21 05/04/21 22:59 06:59 14:59 Intake Total 1280 / 1600 Balance 1280 / 1600 Weight last 48 hrs Weight 72.66 kg Physical Exam Narrative: comfortable, nard in bed heent- nc/at, eomi, anicteric neck supple- rt ij dialysis catheter lungs clear b/l heart reg, +ROBERT abd soft, nt, nd, + bs ext - b/l leg edema neuro- a,a, o x 2, moves all extremities Urinary Catheter Management: Wynn: Cath Placed During This Visit: yes, but has since been removed by the nurse Reason for Continuing Indwelling Catheter: Decision to DC Catheter Urinary Catheter Date of Insertion: 04/19/21 Urinary Catheter Time of Insertion: 01:00 Date Urinary Catheter Removed: 04/28/21 Time Urinary Catheter Discontinued: 10:30 Data : 05/04/21 04:45 05/04/21 04:45 Micro: Microbiology 04/28/21 21:29 Blood Culture - Final Blood NO GROWTH AFTER 5 DAYS 04/28/21 21:25 Blood Culture - Final Blood NO GROWTH AFTER 5 DAYS 04/29/21 17:15 Gram Stain - Final Sputum - Endotracheal Tube Aspirate Sputum Culture - Final Coco parapsilosis A&P Assessment and plan (1) ATN (acute tubular necrosis): 40 yr old female 1. Acute kidney injury Remains oligoanuric, likely secondary to acute tubular injury Urine output improving. Monitor UOP and chemistries Dose medication for GFR less than 15 on dialysis No wynn -try to hold on permacath -hold dialysis till am 1b. replace k. Phos binders 2. anemia- hgb stable - ferritin 481, tsat 23% 3. Pancreatitis Secondary to hypertriglyceridemia, triglyceride levels now trending down, below 500 mgmt per medicine 4. hyponatremia- mild 5. replace vit d 6. monitor hr -avoid hypotension Exam and interview performed with aid of bedside RN using telemedicine Time spent 30 min inc > 50% of time in face to face counseling [facility] Mahesh Ricci MD Status: Acute Plan see above Attestations Medical Necessity Statement*: buddy, hypokalemia, edema Time Spent in Patient Care: 16 - 35 minutes (>than 50% of time spent in counselling and/or direct pt care on unit) . Coding Level of Care Code Acute Continuous Improvement Analyst for [facility] Fwd Diagnoses ATN (acute tubular necrosis) N17.0
[2021-05-04] MEDS: sennosides-docusate Tablet 2 TAB PO (10:29)
[2021-05-04] MEDS: fenofibrate 145 mg Tablet PO (10:29)
[2021-05-04] MEDS: amoxicillin-clav 875-125 mg Tablet 1 TAB PO ×2 (10:29→18:02)
[2021-05-04] MEDS: calcium carbonate 500 mg Chew Tablet 1000 MG PO ×3 (10:30→21:06)
[2021-05-04] MEDS: metoprolol tartrate 25 mg Tablet 50 MG PO ×2 (10:41→21:06)
[2021-05-04] MEDS: potassium chloride ER 20 mEq Tablet 40 MEQ PO (10:42)
[2021-05-04] MEDS: fluconazole premix 200 MG/100 ML PREMIX 100 MG IV (11:12)
--- NOTE | 2021-05-04 11:15 | PC.SOCIAL ---
IMM Update Pg. 2 of IMM updated and reviewed with patient's parents. Copy provided.
[2021-05-04] MEDS: insulin lispro 100 unit/1 mL SUBCUT (11:41)
[2021-05-04 11:55] LABS: Glucose Point of Care 170 mg/dL (70-110)
[2021-05-04 17:34] LABS: Glucose Point of Care 134 mg/dL (70-110)
[2021-05-04 20:59] LABS: Glucose Point of Care 130 mg/dL (70-110)
[2021-05-04] MEDS: quetiapine 25 mg Tablet PO (21:06)
[2021-05-05] VITALS (18 sets, daily range): BP systolic 109–149; BP diastolic 75–91; PULSE 99–124; RESP 16–44; TEMP 36.8–38.7; O2SAT 88–98
[2021-05-05] MEDS: famotidine 20 mg/2 mL INJ IVP ×2 (02:16→15:47)
[2021-05-05] MEDS: ipratropium-albuterol 3 mL Neb INHALATION ×5 (03:02→20:01)
[2021-05-05 05:34] LABS: Basophils # 0.1 10^3/uL (0.0-0.1); Basophils % 1.5 %; Eosinophils # 0.2 10^3/uL (0.0-0.8); Hematocrit 29.9 % (37.0-47.0); Hemoglobin 8.9 g/dL (11.5-15.3); Lymphocytes # 1.6 10^3/uL (0.8-4.8); Mean Corpuscular HGB Conc 29.8 g/dL (30.0-36.0); Mean Corpuscular Hemoglobin 30.9 pg (28.0-34.0); Mean Corpuscular Volume 103.8 fl (81-99); Mean Platelet Volume 11.2 fL (7.4-10.4); Monocytes # 0.9 10^3/uL (0.2-0.9); Monocytes % 15.2 %; Neutrophils # 3.18 10^3/uL (1.8-7.7); Neutrophils % 52.6 %; Nucleated Red Blood Cells % 0 %; Platelet Count 225 10^3/cmm (130-400); Red Blood Count 2.88 10^6/uL (4.1-5.3); Red Cell Distribution Width 17.7 % (12.1-15.1)
[2021-05-05 05:45] LABS: Alanine Aminotransferase < 5 U/L (0-33); Albumin Level 2.5 g/dL (3.5-5.2); Alkaline Phosphatase 153 IU/L (35-105); Anion Gap 19.9 (5-19); Aspartate Amino Transferase 15 U/L (0-32); Blood Urea Nitrogen 58 mg/dL (6-20); Calcium 8.1 mg/dL (8.5-10.5); Carbon Dioxide 20 mmol/L (22-29); Chloride 108 mmol/L (98-107); Globulin 2.6 g/dL (1.3-4.6); Glomerular Filtration Rate 8.8 mL/min (90-130); Glucose 99 mg/dL (65-115); Magnesium 1.9 mg/dL (1.7-2.3); Osmolality Calculated 314 mOsm/kg (285-295); Phosphorus 5.4 mg/dL (2.5-4.5); Potassium 3.9 mmol/L (3.5-5.1); Sodium 144 mmol/L (136-145); Total Bilirubin 0.6 mg/dL (0.15-1.2); Total Protein 5.1 g/dL (6.6-8.7)
[2021-05-05 06:47] LABS: Glucose Point of Care 101 mg/dL (70-110)
--- NOTE | 2021-05-05 08:06 | XR_ITS ---
WS: [id number] CHEST XRAY TECHNIQUE: Portable chest. CLINICAL INFORMATION: sob COMPARISON: April 30, 2021 FINDINGS: RIGHT central venous catheter with tip in the distal SVC. Heart: Normal cardiac silhouette. Lungs: Shallow inspiration. Diffuse bilateral pulmonary infiltrates slightly progressed since Februar 2021. Small RIGHT greater than LEFT pleural effusions. Bones: Normal visualized bony structures. XR/XR chest 1V portable [id number] IMPRESSION: 1. Shallow inspiration with diffuse bilateral pulmonary infiltrates slightly p rogressed compared to 04/30/21. 2. Small RIGHT greater than LEFT pleural effusions. 3. RIGHT central venous catheter with tip in the RIGHT atrium.
--- NOTE | 2021-05-05 08:36 | PM.PN ---
Subjective Subjective: more awake, has edema, and some SOB Medications: Reviewed: Yes Medication Review Details: Current Medications Acetaminophen (Acetaminophen 325 Mg Tablet) 650 mg PO Q6H PRN PRN Reason: Mild/Mod Pain Or Temp >/= 101 Last Admin: 04/30/21 11:37 Dose: 650 mg Documented by: Albuterol/Ipratropium (Ipratropium-Albuterol 3 Ml Neb) 3 ml INHALATION Q4H.RESPIRATORY ANNIE Last Admin: 05/05/21 03:02 Dose: 3 ml Documented by: Amoxicillin/Clavulanate Potassium (Amoxicillin-Clav 875-125 Mg Tablet) 1 tab PO BID ANNIE; Protocol Last Admin: 05/04/21 18:02 Dose: 1 tab Documented by: Calcium Carbonate (Calcium Carbonate 500 Mg Chew Tablet) 1,000 mg PO TID [facility] Last Admin: 05/04/21 21:06 Dose: 1,000 mg Documented by: Dextrose (Dextrose 50% Syringe 50 Ml) 25 ml IVP ONCE PRN; Protocol PRN Reason: hypoglycemia protocol Last Admin: 04/20/21 00:25 Dose: 25 ml Documented by: Dextrose (Dextrose 50% Syringe 50 Ml) 50 ml IVP PRN PRN; Protocol PRN Reason: hypoglycemia protocol Last Admin: 04/19/21 20:35 Dose: 50 ml Documented by: Dextrose (Dextrose 50% Syringe 50 Ml) 25 ml IVP ONCE PRN; Protocol PRN Reason: hypoglycemia protocol Dextrose (Dextrose 50% Syringe 50 Ml) 50 ml IVP PRN PRN; Protocol PRN Reason: hypoglycemia protocol Ergocalciferol (Ergocalciferol (Vitamin D2) 50,000 Unit Capsule) 50,000 unit PO Q7D [facility] Last Admin: 04/28/21 08:01 Dose: 50,000 unit Documented by: Famotidine (Famotidine 20 Mg/2 Ml Inj) 20 mg IVP Q12H ANNIE Last Admin: 05/05/21 02:16 Dose: 20 mg Documented by: Fenofibrate (Fenofibrate 145 Mg Tablet) 145 mg PO DAILY [facility] Last Admin: 05/04/21 10:29 Dose: 145 mg Documented by: Glucagon (Glucagon 1 Mg/Ml Inj 1 Ml) 1 mg IM ONCE PRN; Protocol PRN Reason: Adult Acute Hypoglycemia Prot. Dextrose (D5w) 500 mls @ 100 mls/hr IV ONCE PRN; Protocol PRN Reason: Adult Acute Hypoglycemia Prot Albumin Human (Albumin) 12.5 gm in 50 mls @ 60 mls/hr IV PRN PRN PRN Reason: Hypotension and/or symptomatic Insulin Human Lispro (Insulin Lispro 100 Unit/1 Ml) 0 unit SUBCUT WM&BEDTIME ANNIE; Protocol Last Admin: 05/04/21 21:13 Dose: Not Given Documented by: Labetalol HCl (Labetalol 5 Mg/Ml Sdv 20ml) 10 mg IVP Q4H PRN PRN Reason: HYPERTENSION Last Admin: 04/28/21 08:02 Dose: 10 mg Documented by: Lactulose (Lactulose Oral Liq 20 Gm/30 Ml Udc) 10 gm PO DAILY PRN PRN Reason: CONSTIPATION Lorazepam (Lorazepam 2 Mg/Ml Inj 1 Ml) 0.5 mg IVP Q4H PRN PRN Reason: ANXIETY Last Admin: 04/28/21 10:40 Dose: 0.5 mg Documented by: Metoprolol Tartrate (Metoprolol Tartrate 25 Mg Tablet) 50 mg PO BID@0900,2100 [facility] Last Admin: 05/04/21 21:06 Dose: 50 mg Documented by: Naloxone HCl (Naloxone 0.4 Mg/Ml Sdv) 0.1 mg IVP Q2M PRN PRN Reason: OPIATERV Ondansetron HCl (Ondansetron 2 Mg/Ml Sdv 2 Ml) 4 mg IVP Q8H PRN PRN Reason: vomiting, or N/V if npo Last Admin: 04/30/21 04:58 Dose: 4 mg Documented by: Quetiapine Fumarate (Quetiapine 25 Mg Tablet) 25 mg PO BEDTIME [facility] Last Admin: 05/04/21 21:06 Dose: 25 mg Documented by: Senna/Docusate Sodium (Sennosides-Docusate Tablet) 2 tab PO DAILY [facility] Last Admin: 05/04/21 10:29 Dose: 2 tab Documented by: Vitals/I&O/Wt Last Vital Signs Temp 98.7 F 05/05/21 08:00 Pulse 114 H 05/05/21 08:00 Resp 20 H 05/05/21 08:00 BP 149/91 05/05/21 08:00 Pulse Ox 91 05/05/21 08:00 05/04/21 05/05/21 05/05/21 22:59 06:59 14:59 Intake Total 740 / 1220 Output Total 650 / 650 Balance 740 / 1220 -650 / 570 Weight last 48 hrs Weight 70.352 kg Physical Exam Narrative: comfortable, mild sob sitting up in bed heent- nc/at, eomi, anicteric neck supple- rt ij dialysis catheter lungs crackles b/l heart reg, +ROBERT abd soft, nt, nd, + bs ext - b/l leg edema neuro- a,a, o x 3, moves all extremities Urinary Catheter Management: Wynn: Cath Placed During This Visit: yes, but has since been removed by the nurse Reason for Continuing Indwelling Catheter: Accurate Measurement of Urinary Output in Critically Ill Patients Urinary Catheter Date of Insertion: 05/04/21 Urinary Catheter Time of Insertion: 14:00 Date Urinary Catheter Removed: 04/28/21 Time Urinary Catheter Discontinued: 10:30 Data : 05/05/21 05:12 05/05/21 05:12 A&P Assessment and plan (1) ATN (acute tubular necrosis): 40 yr old female 1. Acute kidney injury likely secondary to acute tubular injury Urine output improving. -cr rising and sob- will dialyze today 3 hrs, 3 k, remove 2.5 l. then Monitor UOP and chemistries for renal recovery Dose medication for GFR less than 15 on dialysis No wynn -if does not have renal recovery soon, then place a permacath 2. anemia- hgb 8.9 - ferritin 481, tsat 23% -chyna 3. Pancreatitis Secondary to hypertriglyceridemia, triglyceride levels now trending down, below 500 mgmt per medicine 4. replace vit d Exam and interview performed with aid of bedside RN using telemedicine Time spent 30 min inc > 50% of time in face to face counseling [facility] Mahesh Ricci MD Status: Acute Plan see above Attestations Medical Necessity Statement*: buddy Time Spent in Patient Care: 16 - 35 minutes (>than 50% of time spent in counselling and/or direct pt care on unit). 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
[2021-05-05] MEDS: calcium carbonate 500 mg Chew Tablet 1000 MG PO ×2 (09:00→15:48)
[2021-05-05] MEDS: ergocalciferol (vitamin D2) 50,000 Unit Capsule 50000 UNIT PO (09:00)
[2021-05-05] MEDS: amoxicillin-clav 875-125 mg Tablet 1 TAB PO (09:00)
[2021-05-05] MEDS: fenofibrate 145 mg Tablet PO (09:00)
[2021-05-05] MEDS: morphine 4 mg/mL SDV 1 mL 2 MG IVP (09:06)
[2021-05-05] MEDS: sennosides-docusate Tablet 2 TAB PO (09:06)
[2021-05-05] MEDS: FUROsemide 10 mg/mL SDV 2mL 20 MG IVP (09:06)
[2021-05-05] MEDS: metoprolol tartrate 25 mg Tablet 50 MG PO (09:19)
--- NOTE | 2021-05-05 09:47 | PM.PN ---
Subjective Subjective: This morning patient was tachypneic, short of breath, requiring 2 L nasal cannula, stat x-ray did show worsening of pulmonary edema, there is plan for hemodialysis today, most likely she will need permacath Creatinine has worsened, urine output 650 mL Patient is complaining of soreness which is hindering her participation with the PT and OT Vitals/I&O/Wt Last Vital Signs Temp 98.7 F 05/05/21 08:00 Pulse 123 H 05/05/21 09:20 Resp 20 H 05/05/21 09:06 BP 149/91 05/05/21 08:00 Pulse Ox 91 05/05/21 09:06 05/04/21 05/05/21 05/05/21 22:59 06:59 14:59 Intake Total 740 / 1220 Output Total 650 / 650 Balance 740 / 1220 -650 / 570 Weight last 48 hrs Weight 70.352 kg Physical Exam Narrative: Patient was laying supine Complaining of soreness and orthopnea, PND On 2 L nasal cannula Bilateral breath sounds with crackles Abdomen soft, distended, bloated nontender Looks fluid overloaded Still weak and lethargic, upper extremity weakness noted Nonpitting edema of legs Urinary Catheter Management: Carroll: Cath Placed During This Visit: yes, but has since been removed by the nurse Reason for Continuing Indwelling Catheter: Accurate Measurement of Urinary Output in Critically Ill Patients Urinary Catheter Date of Insertion: 05/04/21 Urinary Catheter Time of Insertion: 14:00 Date Urinary Catheter Removed: 04/28/21 Time Urinary Catheter Discontinued: 10:30 Data : 05/05/21 05:12 05/05/21 05:12 A&P Assessment and plan (1) Pulmonary embolism: Status: Acute (2) Hypovolemic shock: Status: Acute (3) Aspiration pneumonia: Status: Acute (4) Acute respiratory distress syndrome (ARDS) due to 2019 novel coronavirus: Status: Acute (5) ATN (acute tubular necrosis): Status: Acute (6) COVID: Status: Acute (7) Acute pancreatitis: Status: Acute (8) Hypertriglyceridemia: Status: Acute (9) Acute encephalopathy: Status: Acute (10) Acute kidney injury: Status: Acute Plan Fluid overloaded today requiring 2 L oxygen, tachypneic and short of breath x-ray reveals bilateral pulmonary edema Urine output 650 mm Plan for dialysis today We will touch base with Dr. Ferguson for permacath placement tomorrow Patient still has to work with PT/OT to gain some strength back of her upper extremities For soreness I will give low-dose morphine Hypoxic respiratory failure related to primary edema due to underlying kidney failure: On 2 L nasal cannula Potassium 3.9, mild acidosis bicarb 20 Abnormal transaminases: Improved Low albumin 2.5 blood pressure stable Might benefit from a bag of albumin Consistent carb soft and food prepared diet DVT prophylaxis: Currently on Eliquis for her PE COVID-19 related pneumonia: Since extubation she was on room air today requiring oxygen for fluid overload Status post steroids and remdesivir course For aspiration pneumonia continue Augmentin Attestations Medical Necessity Statement*: Dialysis today, continue hospitalization Time Spent in Patient Care: 20mins Coding Level of Care Code 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
--- NOTE | 2021-05-05 12:20 | PC.OT ---
OT tx attempted. Pt is out of her room for dialysis at this time. Will try again later today if possible.
[2021-05-05] MEDS: heparin, porcine 1,000 unit/mL INJ 10 mL 10000 UNIT HE (15:46)
[2021-05-05] MEDS: albumin 12.5 GM/50 ML VIAL IV (15:46)
[2021-05-05] MEDS: epoetin alfa 1000 Unit/0.05 mL (ESRD) 6000 UNIT SUBCUT (15:48)
[2021-05-05 17:20] LABS: Glucose Point of Care 124 mg/dL (70-110)
[2021-05-05] MEDS: LORazepam 2 mg/mL INJ 1 mL 1 MG IVP (20:24)
[2021-05-05 21:09] LABS: Glucose Point of Care 121 mg/dL (70-110)
[2021-05-05] MEDS: acetaminophen 1,000 MG/100 ML PIGGYBACK 400 MG IV (21:11)
[2021-05-05] MEDS: FUROsemide 10 mg/mL SDV 10mL 60 MG IVP (21:11)
--- NOTE | 2021-05-05 21:41 | XRR_ITS ---
PROCEDURE INFORMATION: Exam: XR Chest Exam date and time: 05/05/2021 9:41 PM Age: 40 years old Clinical indication: Patient HX: Persistent dyspnea. Recent covid. On bipap. TECHNIQUE: Imaging protocol: XR of the chest. Views: 1 view. COMPARISON: CR XR chest 1V portable [id number] 05/05/2021 8:16 AM FINDINGS: Tubes, catheters and devices: Right neck approach temporary hemodialysis catheter terminates distal SVC. Lungs: Widespread patchy ground-glass parenchymal airspace opacities. Pleural spaces: Unremarkable. No pleural effusion. No pneumothorax. Heart/Mediastinum: Unremarkable. No cardiomegaly. Bones/joints: Unremarkable. XR/XR chest 1V portable [id number] IMPRESSION: Widespread airspace disease worse than prior.
--- NOTE | 2021-05-05 21:55 | W.PM.EVENTAC ---
Event Note Event Note: Significantly tachypneic, requiring BiPAP with an FiO2 of 60%, and febrile at 101.6. Obtain urine culture, chest x-ray, sputum culture, blood culture. Discontinue Augmentin and placed on Primaxin and vancomycin. Transfer to ICU. Lasix 60 mg IV x1. Discussed with family.
--- NOTE | 2021-05-05 23:00 | PC.NURSE ---
This nurse rounded in pt room and noted pt resp rate was maintaining between 30-40, pt is on 60% Bipap, Pt vitals were Temp 101.6 pulse 124, RR 30, BP 142/90, O2 93%, Charge nurse Carolyne and RT Robert came to assess pt, Dr. Martines ordered IV tylenol 100 mg for fever and 60mg IVP Lasix. Dr. Martines came to assess pt and spoke with family in the room, orders put in for transfer to ICU for closer monitoring. IV antibiotic primaxin added, new orders received for blood cultures, Urinalysis, and chest xray.
[2021-05-06] VITALS (59 sets, daily range): BP systolic 84–144; BP diastolic 53–95; PULSE 96–134; RESP 16–53; TEMP 37.1–38.3; O2SAT 92–99
[2021-05-06] MEDS: ipratropium-albuterol 3 mL Neb INHALATION ×6 (00:50→20:44)
[2021-05-06] MEDS: heparin 5,000 unit/mL INJ 1 mL 5000 UNIT SUBCUT (01:25)
[2021-05-06] MEDS: famotidine 20 mg/2 mL INJ IVP ×2 (03:07→14:06)
[2021-05-06] MEDS: vancomycin 1,000 MG in sodium chloride 0.9% 250 ML 250 MG IV (03:08)
[2021-05-06 04:25] LABS: Basophils # 0.1 10^3/uL (0.0-0.1); Basophils % 1.1 %; Eosinophils # 0.2 10^3/uL (0.0-0.8); Eosinophils % 2.3 %; Hematocrit 27.1 % (37.0-47.0); Hemoglobin 8.3 g/dL (11.5-15.3); Lymphocytes # 1.2 10^3/uL (0.8-4.8); Lymphocytes % 18.9 %; Mean Corpuscular HGB Conc 30.6 g/dL (30.0-36.0); Mean Corpuscular Hemoglobin 31.7 pg (28.0-34.0); Mean Corpuscular Volume 103.4 fl (81-99); Mean Platelet Volume 10.9 fL (7.4-10.4); Monocytes # 0.9 10^3/uL (0.2-0.9); Monocytes % 14.3 %; Neutrophils # 4.02 10^3/uL (1.8-7.7); Neutrophils % 61.7 %; Nucleated Red Blood Cells % 0.3 %; Platelet Count 217 10^3/cmm (130-400); Red Blood Count 2.62 10^6/uL (4.1-5.3); Red Cell Distribution Width 17.7 % (12.1-15.1); White Blood Count 6.5 10^3/uL (4.0-10.0)
[2021-05-06 04:41] LABS: Triglycerides 323 mg/dL (0-150)
[2021-05-06 04:43] LABS: Alanine Aminotransferase < 5 U/L (0-33); Albumin Level 2.8 g/dL (3.5-5.2); Alkaline Phosphatase 151 IU/L (35-105); Anion Gap 15.5 (5-19); Aspartate Amino Transferase 23 U/L (0-32); Blood Urea Nitrogen 23 mg/dL (6-20); Calcium 7.8 mg/dL (8.5-10.5); Carbon Dioxide 26 mmol/L (22-29); Chloride 104 mmol/L (98-107); Globulin 2.4 g/dL (1.3-4.6); Glomerular Filtration Rate 18.1 mL/min (90-130); Glucose 108 mg/dL (65-115); Magnesium 1.7 mg/dL (1.7-2.3); Osmolality Calculated 298 mOsm/kg (285-295); Phosphorus 4.2 mg/dL (2.5-4.5); Potassium 3.5 mmol/L (3.5-5.1); Sodium 142 mmol/L (136-145); Total Bilirubin 0.6 mg/dL (0.15-1.2); Total Protein 5.2 g/dL (6.6-8.7)
--- NOTE | 2021-05-06 06:54 | P.PN_ITS ---
Subjective Subjective: over night events noted. sob, tachypneic, febrile, on bipap. did respond to lasix Medications: Reviewed: Yes Medication Review Details: Current Medications Acetaminophen (Acetaminophen 325 Mg Tablet) 650 mg PO Q6H PRN PRN Reason: Mild/Mod Pain Or Temp >/= 101 Last Admin: 04/30/21 11:37 Dose: 650 mg Documented by: Albuterol/Ipratropium (Ipratropium-Albuterol 3 Ml Neb) 3 ml INHALATION Q4H.RESPIRATORY ANNIE Last Admin: 05/06/21 05:05 Dose: 3 ml Documented by: Calcium Carbonate (Calcium Carbonate 500 Mg Chew Tablet) 1,000 mg PO TID [facility] Last Admin: 05/05/21 21:22 Dose: Not Given Documented by: Dextrose (Dextrose 50% Syringe 50 Ml) 25 ml IVP ONCE PRN; Protocol PRN Reason: hypoglycemia protocol Last Admin: 04/20/21 00:25 Dose: 25 ml Documented by: Dextrose (Dextrose 50% Syringe 50 Ml) 50 ml IVP PRN PRN; Protocol PRN Reason: hypoglycemia protocol Last Admin: 04/19/21 20:35 Dose: 50 ml Documented by: Dextrose (Dextrose 50% Syringe 50 Ml) 25 ml IVP ONCE PRN; Protocol PRN Reason: hypoglycemia protocol Dextrose (Dextrose 50% Syringe 50 Ml) 50 ml IVP PRN PRN; Protocol PRN Reason: hypoglycemia protocol Epoetin Shubham (Epoetin Shubham 1000 Unit/0.05 Ml (Esrd)) 6,000 unit SUBCUT DIALYS[facility] Last Admin: 05/05/21 15:48 Dose: 6,000 unit Documented by: Ergocalciferol (Ergocalciferol (Vitamin D2) 50,000 Unit Capsule) 50,000 unit PO Q7D [facility] Last Admin: 05/05/21 09:00 Dose: 50,000 unit Documented by: Famotidine (Famotidine 20 Mg/2 Ml Inj) 20 mg IVP Q12H [facility] Last Admin: 05/06/21 03:07 Dose: 20 mg Documented by: Fenofibrate (Fenofibrate 145 Mg Tablet) 145 mg PO DAILY [facility] Last Admin: 05/05/21 09:00 Dose: 145 mg Documented by: Glucagon (Glucagon 1 Mg/Ml Inj 1 Ml) 1 mg IM ONCE PRN; Protocol PRN Reason: Adult Acute Hypoglycemia Prot. Heparin Sodium (Porcine) (Heparin 5,000 Unit/Ml Inj 1 Ml) 0 unit IV PRN PRN; Protocol PRN Reason: Heparin weight-base protocol Dextrose (D5w) 500 mls @ 100 mls/hr IV ONCE PRN; Protocol PRN Reason: Adult Acute Hypoglycemia Prot Albumin Human (Albumin) 12.5 gm in 50 mls @ 60 mls/hr IV PRN PRN PRN Reason: Hypotension and/or symptomatic Last Admin: 05/05/21 15:46 Dose: 60 mls/hr Documented by: Heparin Sodium/Sodium Chloride (Heparin Drip) 25,000 unit in 500 mls @ 0 mls/hr IV .Q0M ANNIE; Protocol Imipenem/Cilastatin Sodium 250 (mg/ Sodium Chloride) 100 mls @ 200 mls/hr IV Q12H ANNIE; Protocol Last Infusion: 05/06/21 02:46 Dose: Infused Documented by: Insulin Human Lispro (Insulin Lispro 100 Unit/1 Ml) 0 unit SUBCUT WM&BEDTIME ANNIE; Protocol Last Admin: 05/05/21 21:23 Dose: Not Given Documented by: Labetalol HCl (Labetalol 5 Mg/Ml Sdv 20ml) 10 mg IVP Q4H PRN PRN Reason: HYPERTENSION Last Admin: 04/28/21 08:02 Dose: 10 mg Documented by: Lactulose (Lactulose Oral Liq 20 Gm/30 Ml Udc) 10 gm PO DAILY PRN PRN Reason: CONSTIPATION Lorazepam (Lorazepam 2 Mg/Ml Inj 1 Ml) 1 mg IVP Q8H PRN PRN Reason: ANXIETY Last Admin: 05/05/21 20:24 Dose: 1 mg Documented by: Metoprolol Tartrate (Metoprolol Tartrate 25 Mg Tablet) 50 mg PO BID@0900,2100 ANNIE Last Admin: 05/05/21 21:22 Dose: Not Given Documented by: Naloxone HCl (Naloxone 0.4 Mg/Ml Sdv) 0.1 mg IVP Q2M PRN PRN Reason: OPIATERV Ondansetron HCl (Ondansetron 2 Mg/Ml Sdv 2 Ml) 4 mg IVP Q8H PRN PRN Reason: vomiting, or N/V if npo Last Admin: 04/30/21 04:58 Dose: 4 mg Documented by: Quetiapine Fumarate (Quetiapine 25 Mg Tablet) 25 mg PO BEDTIME ANNIE Last Admin: 05/05/21 21:23 Dose: Not Given Documented by: Senna/Docusate Sodium (Sennosides-Docusate Tablet) 2 tab PO DAILY ANNIE Last Admin: 05/05/21 09:06 Dose: 2 tab Documented by: Vitals/I&O/Wt Last Vital Signs Temp 98.7 F 05/06/21 03:38 Pulse 103 H 05/06/21 05:06 Resp 31 H 05/06/21 05:05 BP 125/76 05/06/21 03:41 Pulse Ox 97 05/06/21 05:06 05/05/21 05/05/21 05/06/21 14:59 22:59 06:59 Intake Total 120 / 120 200 / 320 Output Total 1999 / 1999 500 / 2500 Balance 120 / 120 -2000 / -1880 -300 / -2180 Weight last 48 hrs Weight 70.352 kg Physical Exam Narrative: on bipap, tachycardic, febrile overnight, tachypneic heent- nc/at, eomi, anicteric neck supple- rt ij dialysis catheter lungs crackles b/l heart reg, +ROBERT abd soft, nt, nd, + bs ext - b/l leg edema neuro- a,a, o x 2+, moves all extremities Urinary Catheter Management: Wynn: Cath Placed During This Visit: yes, but has since been removed by the nurse Reason for Continuing Indwelling Catheter: Acute Urinary Retention or Obstruction Urinary Catheter Date of Insertion: 05/04/21 Urinary Catheter Time of Insertion: 14:00 Date Urinary Catheter Removed: 04/28/21 Time Urinary Catheter Discontinued: 10:30 Data : 05/06/21 04:10 05/06/21 04:10 Micro: Microbiology 05/05/21 22:00 Blood Culture - Preliminary Blood SPECIMEN COLLECTED 05/05/21 21:59 Blood Culture - Preliminary Blood SPECIMEN COLLECTED A&P Assessment and plan (1) ATN (acute tubular necrosis): 40 yr old female 1. Acute kidney injury likely secondary to acute tubular injury Urine output is good -required HD yesterday for rising cr and SOB -she is now febrile and tachypneic- check blood cultures- no leukocytosis -cxr w/ failure -start lasix drip -consider SUF today Monitor UOP and chemistries for renal recovery Dose medication for GFR less than 15 on dialysis + wynn -please do not place a permacath w/ fevers -check abg 2. fevers- robbins culture- renal dose abx 3.anemia- hgb 8.3 - ferritin 481, tsat 23% -chyna 4. Pancreatitis Secondary to hypertriglyceridemia, triglyceride levels now trending down, 323 mgmt per medicine 5. meds reviewed Exam and interview performed with aid of bedside RN using telemedicine Time spent >30 min inc > 50% of time in face to face counseling [facility] Mahesh Ricci MD Status: Acute Plan see above Attestations Medical Necessity Statement*: buddy, resp distress, covid, fevers Time Spent in Patient Care: 16 - 35 minutes (>than 50% of time spent in counselling and/or direct pt care on unit) . 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
--- NOTE | 2021-05-06 07:17 | XR_ITS ---
WS: [id number] PORTABLE CHEST HISTORY: Pulmonary edema COMPARISON: 05/05/2021 Lung volumes are moderately decreased. Continued bilateral pulmonary opacifications and alveolar opac ifications. No significant improvement. Blunting of the RIGHT costophrenic angle is probably due to v itz small effusion. No pneumothorax or pneumomediastinum. Cardiac size: Normal. Mediastinum/Aorta: Normal mediastinum. RIGHT IJ line with tip in the distal SVC. No osseous abnormality seen. XR/XR chest 1V portable [id number] IMPRESSION: 1. Continued diffuse pulmonary opacifications without improvement. 2. Lung volumes are decreased and there is a small RIGHT pleural effusion.
[2021-05-06 07:51] LABS: Lactate (Lactic Acid level) 0.9 mmol/L (0.5-2.2)
[2021-05-06 07:52] LABS: Lipase 20 U/L (13-60)
[2021-05-06] MEDS: FUROsemide 10 mg/mL SDV 10mL 60 MG IVP (07:55)
[2021-05-06] MEDS: FUROsemide 100 MG in sodium chloride 0.9% 40 ML IV (07:57)
[2021-05-06 08:58] LABS: Glucose Point of Care 102 mg/dL (70-110)
--- NOTE | 2021-05-06 09:05 | PC.SOCIAL ---
IMM update IMM updated with patient and father at bedside. Copy Pg 2 provided. Verbalized an understanding. Initialled, dated, timed, and placed in chart.
[2021-05-06 09:12] LABS: Bacteria Urine TRACE /hpf; Bilirubin Urine Neg (Negative); Blood Urine 2+ (Negative); Glucose Urine UA Norm (Normal); Ketones Urine Negative (Negative); Leukocyte Esterase Urine Negative (Negative); Nitrate Urine Negative (Negative); Protein Urine Neg (Negative); RBC Urine 0-4 /hpf (0-2); Specific Gravity, Urine 1.005 (1.005-1.030); Squamous Epithelial Cell Urine 0-4 /hpf (0-5); Sulfosalicylic Acid Urine Negative (Negative); Urine Appearance Clear (CLEAR); Urine Color Yellow (Yellow); Urobilinogen Urine Norm (Negative); pH Urine 8 (5-7)
[2021-05-06 09:13] LABS: Add Urine Culture? Yes
--- NOTE | 2021-05-06 10:06 | PC.OT ---
OT TREATMENT ATTEMPTED. HELD TODAY DUE TO CHANGE IN STATUS. CURRENT HR AT REST IS 121, O2 WHILE ON BIPAP IS 93%. FAMILY REQUEST HOLD WELL. REVIEWED INITIAL EVALUATION AND TREATMENT PLAN. GOALS REMAIN APPROPRIATE; CONTINUE TREATMENT PER POC.
[2021-05-06 10:47] LABS: ABG PCO2 33.5 mmHg (35-45); ABG PH Result 7.51 (7.35-7.45); Alveolar-Arterial Oxygen Gradi 7.6 mmHg (5-10); Arterial Blood Gas Hematocrit 28.6 % (37-47); Base Excess ABG 3.6 mmol/L (-2.0-2.0); Blood Gas Allen Test Pos; Blood Gas Operator Identificat CAK; Blood Gas Sample Site Radial, left; Blood Gas Sample Type Arterial; HCO3 ABG 26.6 mmol/L (22-26); HGB O2 Sat 88.2 % (95-100); Ionized Calcium Level - ABG 1.2 mmol/L (1.1-1.4); Methemoglobin < 0.0 % (0.4-1.5); Oxygen Device BIPAP; Oxygen Saturation ABG 88.7; PO2 ABG 49.8 mmHg (80.0-100.0); Potassium Level - ABG 3.3 mmol/L (3.5-5.0); Total Hemoglobin 9.3 g/dL (12-16)
[2021-05-06] MEDS: ondansetron 2 mg/ML SDV 2 mL 4 MG IVP (11:14)
[2021-05-06] MEDS: LORazepam 2 mg/mL INJ 1 mL 1 MG IVP (11:15)
--- NOTE | 2021-05-06 11:47 | XR_ITS ---
WS: [id number] Portable AP supine chest, 05/06/2021, 1153 hours Clinical Data: OG, ET Comparison: Portable chest, 05/06/2021, 0750 hours Findings: There is an endotracheal tube which has been positioned so that it ends at the orifice of t he right mainstem bronchus. It needs to be retreated 5 cm. The oral gastric tube appears to end in th e stomach. The patchy bilateral pulmonary opacities remain the same. There is a right dialysis cathet er entering the internal jugular vein and ending in the superior vena cava. XR/XR chest 1V portable [id number] Impression: 1. Endotracheal tube enters right mainstem bronchus and needs to be retreated 5 cm. 2. Satisfactory placement of orogastric tube. 3. No change in bilateral pulmonary opacities. 4. The results were called to Dr. Rahman in the ICU at 1340 hours.
--- NOTE | 2021-05-06 13:03 | XR_ITS ---
WS: [id number] CHEST XRAY TECHNIQUE: Portable chest. CLINICAL INFORMATION: central line verification COMPARISON: May 06, 2021 FINDINGS: Tubes/Lines: LEFT central venous catheter with tip in the distal SVC. RIGHT IJ sheath appears unchang ed. Endotracheal tube with tip directed towards the RIGHT mainstem bronchus unchanged. Enteric tube w ith tip below the diaphragm. Heart: Normal cardiac silhouette. Lungs: Diffuse bilateral pulmonary infiltrates with small pleural effusions are unchanged. Bones: Normal visualized bony structures. XR/XR chest 1V portable [id number] IMPRESSION: 1. Endotracheal tube directed towards the RIGHT mainstem bronchus. Endotrachea l tube repositioned after this film was taken. 2. LEFT central venous catheter with tip in the distal SVC. Stable RIGHT IJ sh eath. 3. Enteric tube with tip below the diaphragm. 4. Diffuse bilateral pulmonary infiltrates with small pleural effusions unchan ged. Discussed with Paresh Reese MD at 05/06/2021 2:17 PM.
--- NOTE | 2021-05-06 13:11 | PC.NURSE ---
DUe to patient's increased work of breathing and tachypnea (40's-50's), Dr Reese ordered precedex. After 203 hours of precedex, patient's work of breathing continued to be labored and tachypnic, and saturations started dropping into the mid 80's. NUrse alerted. Dr reese advised to prepare for intubation.
[2021-05-06 13:22] LABS: Glucose Point of Care 124 mg/dL (70-110)
[2021-05-06 13:23] LABS: ABG PCO2 48.2 mmHg (35-45); ABG PH Result 7.33 (7.35-7.45); Alveolar-Arterial Oxygen Gradi 36.9 mmHg (5-10); Arterial Blood Gas Hematocrit 29.4 % (37-47); Base Excess ABG -0.6 mmol/L (-2.0-2.0); Blood Gas Allen Test Pos; Blood Gas Operator Identificat CAK; Blood Gas Sample Site Radial, left; Blood Gas Sample Type Arterial; Carboxyhemoglobin 1.1 %THgb (0.4-20.1); HCO3 ABG 25.5 mmol/L (22-26); HGB O2 Sat 93.7 % (95-100); Ionized Calcium Level - ABG 1.3 mmol/L (1.1-1.4); Methemoglobin 1.1 % (0.4-1.5); Oxygen Device VENT; Oxygen Saturation ABG 95.9; PO2 ABG 83.5 mmHg (80.0-100.0); Potassium Level - ABG 3.5 mmol/L (3.5-5.0); Total Hemoglobin 9.6 g/dL (12-16)
[2021-05-06] MEDS: norepinephrine 8 MG in dextrose 5 % 500 ML 7.62 MG IV (13:58)
--- NOTE | 2021-05-06 14:23 | ANES.PROC ---
Anesthesia Procedures Procedure/Date: 05/06/21 Central Venous Insert: Time Out Performed: Yes ([id number]) Consent: requested by attending/covering physician, from other (Parents) and risks and benefits reviewed Central Line: New Anesthesia monitors: pulse oximetry, EKG, BP cuff and oxygen Vein cannulated: left internal jugular Ultrasound used: to identify patency to vessel and to visualize needle entry to vein Post procedure: Obtain Chest X-Ray Additional Comments: Cap, eye protection, mask donned by myself and RN. Patient head down below feet (Trendelenburg 10 degrees). Sterile gown and gloves donned. Time out patient prepped with Chlorhexidine and full body fenestrated drape placed in sterile fashion. Real time US guidance for target selection and real time US visualization of needle entry into vessel. Wire passed, no ectopy, needle removed, wire confirmed in correct vessel in both in-plane and wbd-wa-tolfc US views. Vessel dilated over wire. Introducer removed, catheter threaded to 20 cm at skin, no ectopy. All ports drawn back and flushed with ease. Ports capped and locked. Catheter sutured at [address] Sterile dressing applied. Tolerated well, no complications.?
--- NOTE | 2021-05-06 14:25 | ANES.PROC ---
Anesthesia Procedures Procedure/Date: 05/06/21 Intubation: Time Out Performed: Yes Consent: requested by attending/covering physician and emergency procedure Sedative (amount): etomidate Paralytic (amount): rocuronium Laryngoscope: fiber optic video scope ET Tube Size: 7.5 ET Tube Uncuffed: Yes Tube Secured Depth (cm): 22 Tube Secured Location: teeth Tube Placement Confirmation: visualized tube passing through cords, equal breath sounds bilaterally, no breath sounds over epigastrium and confirmation by capnometry Patient Tolerated Procedure: well Intubation Complications: none
[2021-05-06] MEDS: rocuronium 10 mg/mL INJ 5mL 80 MG IVP (15:41)
[2021-05-06] MEDS: midazolam 1 mg/mL INJ 2 mL 4 MG IVP (15:41)
[2021-05-06] MEDS: fentaNYL 50 mcg/mL INJ 2mL IVP (15:41)
[2021-05-06] MEDS: heparin 5,000 unit/mL INJ 1 mL IV (15:56)
[2021-05-06] MEDS: heparin drip 25,000 UNIT/500 ML PREMIX 19.7 UNIT IV (16:00)
--- NOTE | 2021-05-06 16:02 | PM.PN ---
Subjective Subjective: Overnight events noted, patient did not tolerate dialysis despite getting albumin, she became hypotensive and more tachypneic got transferred to ICU Decision was made to intubate the patient for persistent tachypnea in high 50s, despite use of BiPAP and Precedex Nephro recommended Lasix drip, patient started making urine and she put out 520 mL at the time we made decision to intubate her On-call anesthesia intubated and put a central line It was retracted by 2 cm after reviewing chest x-ray Central line left IJ placed 05/06 Patient needs ultrafiltration for removal of fluid Noticed high triglyceride, After intubation ABG reviewed mild hypercapnic respiratory failure Hypoxia improved, increased respiratory rate to 18 I spoke with the family, Dr. Ricci, Dr. Sue Plan is to hold off on permacath as patient spiked fever again Blood cultures negative so far, Dr. 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 Triglyceride 323 Lipase 20 Avoid propofol Vitals/I&O/Wt Last Vital Signs Temp 98.7 F 05/06/21 03:38 Pulse 103 H 05/06/21 15:41 Resp 21 H 05/06/21 15:40 BP 125/76 05/06/21 03:41 Pulse Ox 92 05/06/21 15:40 05/06/21 05/06/21 05/06/21 06:59 14:59 22:59 Intake Total 200 / 720 Output Total 700 / 3795 825 / 825 Balance -500 / -3075 -825 / -825 Weight last 48 hrs Weight 69.7 kg Weight 70.352 kg Physical Exam Narrative: Patient was intubated and sedated with fentanyl and Versed Requiring levo Clinically does not look fluid overloaded However has bilateral breath sounds with crackles and rhonchi She was very anxious before intubation Nonpitting edema of legs Abdomen soft however bloated Patient not very conversive today Urinary Catheter Management: Carroll: Cath Placed During This Visit: yes, but has since been removed by the nurse Reason for Continuing Indwelling Catheter: Acute Urinary Retention or Obstruction Urinary Catheter Date of Insertion: 05/04/21 Urinary Catheter Time of Insertion: 14:00 Date Urinary Catheter Removed: 04/28/21 Time Urinary Catheter Discontinued: 10:30 Data : 05/06/21 04:10 05/06/21 04:10 Micro: Microbiology 05/05/21 22:00 Blood Culture - Preliminary Blood SPECIMEN COLLECTED 05/05/21 21:59 Blood Culture - Preliminary Blood SPECIMEN COLLECTED A&P Assessment and plan (1) Pulmonary embolism: Status: Acute (2) Hypovolemic shock: Status: Acute (3) Aspiration pneumonia: Status: Acute (4) Acute respiratory distress syndrome (ARDS) due to 2019 novel coronavirus: Status: Acute (5) ATN (acute tubular necrosis): Status: Acute (6) COVID: Status: Acute (7) Acute kidney injury: Status: Acute (8) Acute pancreatitis: Status: Acute (9) GODFREY (generalized anxiety disorder): Status: Acute (10) Hypertriglyceridemia: Status: Acute (11) Acute respiratory failure requiring reintubation: Status: Acute (12) Yeast detected: Status: Acute Plan Patient was admitted on 04/19 for severe metabolic acidosis, hypertriglyceridemia induced pancreatitis, COVID-19 related ARDS First intubation 04/21 after an episode of vomiting while on BiPAP, developed aspiration pneumonia Right IJ dialysis catheter placed 04/20 She was extubated on 05/01 She did very well between 05/01 and 05/04, she was doing well on room air, antibiotic switched to Augmentin, started making urine, she was able to eat, bowel movements were regular no episodes of vomiting Hypertriglyceridemia with pancreatitis improved 05/05 she developed pulmonary edema again, she got worse overnight got transferred to ICU and got intubated on 05/06 for worsening tachypnea She was breathing in high 50s, getting hypoxic Chest x-ray consistent with pulmonary edema related to fluid overload with underlying ATN Secondary to febrile episode decision was made to start caspofungin and hold off on permacath placement Dr. Sue was notified Previous endotracheal aspirate showed Coco parasilosis Blood cultures, urine cultures negative New blood culture, urine culture sputum culture obtained Heparin drip initiated 05/06 as we are holding off on Eliquis, she was diagnosed with pulmonary embolism Vancomycin, Primaxin, caspofungin started 05/06 We will consult pharmacy for appropriate bank trough level for now with target between 15-20 High triglycerides noted avoid propofol No signs of pancreatitis lipase unremarkable Closely monitor blood sugar and triglyceride level N.p.o. Left IJ placed 05/06 Acute hypoxic hypercarbic respiratory failure related to fluid overload with underlying ATN which is related to sepsis, this was present since admission Attestations Medical Necessity Statement*: Continue ICU management Time Spent in Patient Care: 120min Critical Care Time: 30min Coding Level of Care Code Acute Tag Clerk for Chg Fwd Diagnoses Pulmonary embolism I26.99 Hypovolemic shock R57.1 Aspiration pneumonia J69.0 Acute respiratory distress syndrome (ARDS) due to 2019 novel coronavirus U07.1; J80 ATN (acute tubular necrosis) N17.0 COVID U07.1 Acute kidney injury N17.9 Acute pancreatitis K85.90 GODFREY (generalized anxiety disorder) F41.1 Hypertriglyceridemia E78.1 Acute respiratory failure requiring reintubation J96.00 Yeast detected B37.9
[2021-05-06 16:59] LABS: Glucose Point of Care 184 mg/dL (70-110)
[2021-05-06] MEDS: insulin lispro 100 unit/1 mL SUBCUT (17:05)
[2021-05-06] MEDS: calcium carbonate 500 mg Chew Tablet 1000 MG PO ×2 (17:05→21:28)
[2021-05-06] MEDS: epoetin alfa 1000 Unit/0.05 mL (ESRD) 6000 UNIT SUBCUT (17:06)
[2021-05-06] MEDS: heparin, porcine 1,000 unit/mL INJ 10 mL 10000 UNIT HE (17:08)
--- NOTE | 2021-05-06 18:24 | XRR_ITS ---
PROCEDURE INFORMATION: Exam: XR Chest Exam date and time: 05/06/2021 6:24 PM Age: 40 years old Clinical indication: Device placement; Ett placement (vent status); Additional info: Verifiy et tube placement post adjustment TECHNIQUE: Imaging protocol: XR of the chest. Views: 1 view. COMPARISON: CR XR chest 1V portable [id number] 05/06/2021 1:10 PM FINDINGS: Tubes, catheters and devices: Endotracheal tube tip in place 15 mm above the tracey. Left central venous catheter seen with tip at the atrial caval junction. Enteric tube tip extending below the diaphragm inferiorly off the field of view. Lungs: Bilateral left greater than right airspace infiltrates. Pleural spaces: Unremarkable. No pleural effusion. No pneumothorax. Heart/Mediastinum: Unremarkable. No cardiomegaly. Bones/joints: Unremarkable. XR/XR chest 1V portable [id number] IMPRESSION: 1. Endotracheal tube tip in place 15 mm above the tracey. 2. Left central venous catheter seen with tip at the atrial caval junction. 3. Bilateral left greater than right airspace infiltrates. 4. Enteric tube tip extending below the diaphragm inferiorly off the field of view.
--- NOTE | 2021-05-06 19:11 | PC.NURSE ---
SHift summary: Patient was placed on lasix to diurese and precedex to control tachypnea. By 11 am, urine output was 825, but tachypnea and work of breathing did not improve, and saturations started dropping to the mid 80's. Patient was then intubated. Later dialysis was done and 2.5L were removed during dialysis without incident. Levophed was used during dialysis and had to be increased to 6 during dialysis. Nurse started titrating off of levophed as indicated after dialysis was discontinued. At shift change, patient was still receiving 2 of levophed. Family has been updated.
[2021-05-06 21:40] LABS: Glucose Point of Care 106 mg/dL (70-110)
[2021-05-06 23:56] LABS: Partial Thromboplastin Time 201.3 SECONDS (23.9-36.7)
[2021-05-07] VITALS (83 sets, daily range): BP systolic 77–137; BP diastolic 41–89; PULSE 98–122; RESP 18–28; TEMP 37.2–38; O2SAT 87–100
[2021-05-07] MEDS: ipratropium-albuterol 3 mL Neb INHALATION ×6 (00:33→19:59)
[2021-05-07] MEDS: famotidine 20 mg/2 mL INJ IVP ×2 (00:48→14:04)
[2021-05-07 01:54] LABS: Glucose Point of Care 118 mg/dL (70-110)
[2021-05-07 03:36] LABS: Basophils # 0.1 10^3/uL (0.0-0.1); Eosinophils # 0.4 10^3/uL (0.0-0.8); Hematocrit 27.2 % (37.0-47.0); Hemoglobin 8.3 g/dL (11.5-15.3); Lymphocytes # 2.2 10^3/uL (0.8-4.8); Lymphocytes % 25.9 %; Mean Corpuscular HGB Conc 30.5 g/dL (30.0-36.0); Mean Corpuscular Hemoglobin 31.1 pg (28.0-34.0); Mean Corpuscular Volume 101.9 fl (81-99); Monocytes # 0.8 10^3/uL (0.2-0.9); Monocytes % 9.5 %; Neutrophils # 5.04 10^3/uL (1.8-7.7); Neutrophils % 58.3 %; Nucleated Red Blood Cells # 0.1 /100WBC; Nucleated Red Blood Cells % 0.6 %; Platelet Count 253 10^3/cmm (130-400); Red Blood Count 2.67 10^6/uL (4.1-5.3); Red Cell Distribution Width 17.4 % (12.1-15.1); White Blood Count 8.7 10^3/uL (4.0-10.0)
[2021-05-07 04:00] LABS: ABG PCO2 39.1 mmHg (35-45); ABG PH Result 7.39 (7.35-7.45); Arterial Blood Gas Hematocrit 31.8 % (37-47); Base Excess ABG -0.9 mmol/L (-2.0-2.0); Blood Gas Sample Site Brachial, right; Blood Gas Sample Type Arterial; HCO3 ABG 23.8 mmol/L (22-26); Oxygen Device VENT; PO2 ABG 55.2 mmHg (80.0-100.0)
[2021-05-07 04:00] LABS: Vancomycin Random 19.3 ug/mL (20.0-40.0)
[2021-05-07 04:01] LABS: Alanine Aminotransferase < 5 U/L (0-33); Albumin Level 2.6 g/dL (3.5-5.2); Alkaline Phosphatase 182 IU/L (35-105); Anion Gap 18.3 (5-19); Aspartate Amino Transferase 16 U/L (0-32); Blood Urea Nitrogen 32 mg/dL (6-20); Calcium 8.7 mg/dL (8.5-10.5); Carbon Dioxide 23 mmol/L (22-29); Chloride 103 mmol/L (98-107); Globulin 3.1 g/dL (1.3-4.6); Glomerular Filtration Rate 14.5 mL/min (90-130); Glucose 131 mg/dL (65-115); Magnesium 1.6 mg/dL (1.7-2.3); Osmolality Calculated 301 mOsm/kg (285-295); Phosphorus 4.4 mg/dL (2.5-4.5); Potassium 3.3 mmol/L (3.5-5.1); Sodium 141 mmol/L (136-145); Total Bilirubin 0.5 mg/dL (0.15-1.2); Total Protein 5.7 g/dL (6.6-8.7); Triglycerides 374 mg/dL (0-150)
[2021-05-07 06:26] LABS: Glucose Point of Care 138 mg/dL (70-110)
--- NOTE | 2021-05-07 07:08 | P.PN_ITS ---
Subjective Subjective: sedated, on vent, low dose pressors Medications: Reviewed: Yes Medication Review Details: Current Medications Acetaminophen (Acetaminophen 325 Mg Tablet) 650 mg PO Q6H PRN PRN Reason: Mild/Mod Pain Or Temp >/= 101 Last Admin: 04/30/21 11:37 Dose: 650 mg Documented by: Albuterol/Ipratropium (Ipratropium-Albuterol 3 Ml Neb) 3 ml INHALATION Q4H.RESPIRATORY [facility] Last Admin: 05/07/21 03:20 Dose: 3 ml Documented by: Calcium Carbonate (Calcium Carbonate 500 Mg Chew Tablet) 1,000 mg PO TID [facility] Last Admin: 05/06/21 21:28 Dose: 1,000 mg Documented by: Dextrose (Dextrose 50% Syringe 50 Ml) 25 ml IVP ONCE PRN; Protocol PRN Reason: hypoglycemia protocol Last Admin: 04/20/21 00:25 Dose: 25 ml Documented by: Dextrose (Dextrose 50% Syringe 50 Ml) 50 ml IVP PRN PRN; Protocol PRN Reason: hypoglycemia protocol Last Admin: 04/19/21 20:35 Dose: 50 ml Documented by: Dextrose (Dextrose 50% Syringe 50 Ml) 25 ml IVP ONCE PRN; Protocol PRN Reason: hypoglycemia protocol Dextrose (Dextrose 50% Syringe 50 Ml) 50 ml IVP PRN PRN; Protocol PRN Reason: hypoglycemia protocol Epoetin Shubham (Epoetin Shubham 1000 Unit/0.05 Ml (Esrd)) 6,000 unit SUBCUT EVERY OTHER DAY [facility] Last Admin: 05/06/21 17:06 Dose: 6,000 unit Documented by: Ergocalciferol (Ergocalciferol (Vitamin D2) 50,000 Unit Capsule) 50,000 unit PO Q7D [facility] Last Admin: 05/05/21 09:00 Dose: 50,000 unit Documented by: Famotidine (Famotidine 20 Mg/2 Ml Inj) 20 mg IVP Q12H [facility] Last Admin: 05/07/21 00:48 Dose: 20 mg Documented by: Fenofibrate (Fenofibrate 145 Mg Tablet) 145 mg PO DAILY [facility] Last Admin: 05/06/21 10:24 Dose: Not Given Documented by: Glucagon (Glucagon 1 Mg/Ml Inj 1 Ml) 1 mg IM ONCE PRN; Protocol PRN Reason: Adult Acute Hypoglycemia Prot. Heparin Sodium (Porcine) (Heparin 5,000 Unit/Ml Inj 1 Ml) 0 unit IV PRN PRN; Protocol PRN Reason: Heparin weight-base protocol Last Admin: 05/06/21 15:56 Dose: 3,500 unit Documented by: Dextrose (D5w) 500 mls @ 100 mls/hr IV ONCE PRN; Protocol PRN Reason: Adult Acute Hypoglycemia Prot Albumin Human (Albumin) 12.5 gm in 50 mls @ 60 mls/hr IV PRN PRN PRN Reason: Hypotension and/or symptomatic Last Admin: 05/05/21 15:46 Dose: 60 mls/hr Documented by: Heparin Sodium/Sodium Chloride (Heparin Drip) 25,000 unit in 500 mls @ 0 mls/hr IV .Q0M ANNIE; Protocol Last Admin: 05/06/21 16:00 Dose: 14 unit/kg/hr, 19.7 mls/hr Documented by: Imipenem/Cilastatin Sodium 250 (mg/ Sodium Chloride) 100 mls @ 200 mls/hr IV Q12H ANNIE; Protocol Last Infusion: 05/07/21 01:20 Dose: Infused Documented by: Furosemide 100 mg/ Sodium (Chloride) 50 mls @ 0 mls/hr IV .Q0M ANNIE; Protocol Last Titration: 05/06/21 11:00 Dose: 0 mg/hr, 0 mls/hr Documented by: Dexmedetomidine HCl 1,000 mcg/ (Sodium Chloride) 260 mls @ 0 mls/hr IV .Q0M ANNIE; Protocol Last Titration: 05/06/21 23:00 Dose: 0.3 mcg/kg/hr, 5.49 mls/hr Documented by: Fentanyl 2,500 mcg/ Sodium (Chloride) 250 mls @ 0 mls/hr IV .Q0M ANNIE; Protocol Last Admin: 05/06/21 12:00 Dose: 100 mcg/hr, 10 mls/hr Documented by: Midazolam HCl 100 mg/ Sodium (Chloride) 100 mls @ 0 mls/hr IV .Q0M ANNIE; Protocol Last Admin: 05/07/21 03:11 Dose: 6 mg/hr, 6 mls/hr Documented by: Albumin Human (Albumin) 12.5 gm in 50 mls @ 60 mls/hr IV PRN PRN PRN Reason: Hypotension and/or symptomatic Norepinephrine Bitartrate 8 mg (/ Dextrose) 508 mls @ 0 mls/hr IV .Q0M [facility]; Protocol Last Titration: 05/07/21 01:05 Dose: 2 mcg/min, 7.62 mls/hr Documented by: Caspofungin 50 mg/ Sodium (Chloride) 250 mls @ 250 mls/hr IV Q24H [facility] Vancomycin HCl 750 mg/ Sodium (Chloride) 250 mls @ 250 mls/hr IV DIALYSIS [facility] Insulin Human Lispro (Insulin Lispro 100 Unit/1 Ml) 0 unit SUBCUT WM&BEDTIME SC H; Protocol Last Admin: 05/06/21 21:38 Dose: Not Given Documented by: Lactulose (Lactulose Oral Liq 20 Gm/30 Ml Udc) 10 gm PO DAILY PRN PRN Reason: CONSTIPATION Lorazepam (Lorazepam 2 Mg/Ml Inj 1 Ml) 1 mg IVP Q8H PRN PRN Reason: ANXIETY Last Admin: 05/06/21 11:15 Dose: 1 mg Documented by: Metoprolol Tartrate (Metoprolol Tartrate 25 Mg Tablet) 25 mg PO BID@0900,2100 [facility] Last Admin: 05/06/21 21:34 Dose: Not Given Documented by: Naloxone HCl (Naloxone 0.4 Mg/Ml Sdv) 0.1 mg IVP Q2M PRN PRN Reason: OPIATERV Ondansetron HCl (Ondansetron 2 Mg/Ml Sdv 2 Ml) 4 mg IVP Q8H PRN PRN Reason: vomiting, or N/V if npo Last Admin: 05/06/21 11:14 Dose: 4 mg Documented by: Quetiapine Fumarate (Quetiapine 25 Mg Tablet) 25 mg PO BEDTIME [facility] Last Admin: 05/05/21 21:23 Dose: Not Given Documented by: Rocuronium [place] (Rocuronium 10 Mg/Ml Inj 5ml) 80 mg IVP Q1H PRN 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 Last Admin: 05/06/21 15:41 Dose: 80 mg Documented by: Senna/Docusate Sodium (Sennosides-Docusate Tablet) 2 tab PO DAILY [facility] Last Admin: 05/06/21 10:23 Dose: Not Given Documented by: Vitals/I&O/Wt Last Vital Signs Temp 99.0 F 05/07/21 04:00 Pulse 109 H 05/07/21 06:00 Resp 19 H 05/07/21 05:56 BP 108/69 05/07/21 05:30 Pulse Ox 93 05/07/21 05:56 05/06/21 05/07/21 05/07/21 22:59 06:59 14:59 Intake Total 613.246 / 720.871 535.296 / 1256.167 Output Total 2800 / 3625 175 / 3800 Balance -2186.754 / -2904.129 360.296 / -2543.833 Weight last 48 hrs Weight 64.637 kg Weight 60.8 kg Weight 69.7 kg Physical Exam Narrative: intubated, temp 99, levo 2 2 vent peep 6, fio2=55%, TV 300, rr 18 heent- nc/at, eomi, anicteric neck supple- rt ij dialysis catheter lungs - dull bases b/l heart reg, +ROBERT abd soft, nt, nd, + bs ext - b/l leg edema neuro- sedated Urinary Catheter Management: Wynn: Cath Placed During This Visit: yes, but has since been removed by the nurse Reason for Continuing Indwelling Catheter: Accurate Measurement of Urinary Output in Critically Ill Patients Urinary Catheter Date of Insertion: 05/04/21 Urinary Catheter Time of Insertion: 14:00 Date Urinary Catheter Removed: 04/28/21 Time Urinary Catheter Discontinued: 10:30 Data : 05/07/21 03:30 05/07/21 03:30 Micro: Microbiology 05/05/21 22:00 Blood Culture - Preliminary Blood NEGATIVE TO DATE 05/05/21 21:59 Blood Culture - Preliminary Blood NEGATIVE TO DATE 05/06/21 11:00 C.difficile Toxin B Gene (PCR) - Final Stool - Stool Aspirate A&P Assessment and plan (1) ATN (acute tubular necrosis): 40 yr old female 1. Acute kidney injury likely secondary to acute tubular injury -now oliguric -s/p HD last 2 days -cxr w/ failure -SUF x 3 hrs, remove 2. 5 l - Monitor UOP and chemistries Dose medication for GFR less than 15 on dialysis + wynn -for permacath if remains afebrile 2. abg- balanced , hypoxic. attempt SUF -hypoxemia can be from PE and COVID-19- will see how does w/ SUF 3. fevers- robbins culture- renal dose abx -so far neg -had valentin in sputum on 04/29/21 4.anemia- hgb 8.3 - ferritin 481, tsat 23% -chyna 5. Pancreatitis Secondary to hypertriglyceridemia, triglyceride levels now trending down, 323 mgmt per medicine 6. replace k 7. DM control 8. covid-19 per medicine 9. meds reviewed Exam and interview performed with aid of bedside RN using telemedicine Time spent >30 min inc > 50% of time in face to face counseling [facility] Mahesh Ricci MD Status: Acute Plan see above Attestations Medical Necessity Statement*: buddy, vdrf, PE, covid Time Spent in Patient Care: Greater than 35 minutes (>than 50% of time spent in counselling and/or direct pt care on unit) . Coding Level of Care Code Acute Cattle Dealer for g Fwd Diagnoses ATN (acute tubular necrosis) N17.0
--- NOTE | 2021-05-07 08:18 | PC.OT ---
HOLD OT TREATMENT DUE TO INTUBATION AND SEDATION
[2021-05-07] MEDS: potassium chloride oral liq 20 mEq/15 mL UDC 40 MEQ OG-TUBE (09:29)
[2021-05-07] MEDS: calcium carbonate 500 mg Chew Tablet 1000 MG PO ×3 (09:29→21:07)
[2021-05-07] MEDS: sennosides-docusate Tablet 2 TAB PO (09:29)
[2021-05-07] MEDS: fenofibrate 145 mg Tablet PO (09:29)
[2021-05-07 09:31] LABS: Partial Thromboplastin Time 64.9 SECONDS (23.9-36.7)
[2021-05-07 11:14] LABS: Glucose Point of Care 131 mg/dL (70-110)
--- NOTE | 2021-05-07 14:17 | P.PN_ITS ---
Subjective Subjective: -Patient was extubated on 05/01/2021 and was on room air until 05/04/2021, she was talking, eating -Plans for hemodialysis were held temporarily as she was also making urine -Gradually her respiratory status worsened since 2requiring high flow oxygen and she did not tolerate dialysis despite getting albumin and became hypotensive and more tachypneic-transferred to ICU yesterday 05/06/2021 she got reintubated for respiratory failure and received session of hemodialysis post intubation -She continues to spike low-grade fevers with normal white count, plan is to hold off permacath for now and awaiting blood cultures results before taking her temporary catheter -She is placed back on heparin drip for PE -Recent sputum cultures-started back on vancomycin, Primaxin, caspofungin 05/06/2021 -Currently sedated with fentanyl and Versed, triglycerides 374-holding off propofol Medications: Reviewed: Yes Vitals/I&O/Wt Last Vital Signs Temp 100.4 F H 05/07/21 08:00 Pulse 103 H 05/07/21 13:30 Resp 18 05/07/21 13:30 BP 99/66 05/07/21 13:30 Pulse Ox 98 05/07/21 13:30 05/06/21 05/07/21 05/07/21 22:59 06:59 14:59 Intake Total 613.246 / 720.871 535.296 / 1256.167 545.067 / 545.067 Output Total 2800 / 3625 175 / 3800 Balance -2186.754 / -2904.129 360.296 / -2543.833 545.067 / 545.067 Weight last 48 hrs Weight 142 lb 8 oz Weight 134 lb 0.657 oz Weight 153 lb 10.595 oz Physical Exam Narrative: PHYSICAL EXAM: General: lying in bed, sedated and intubated. 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 SKIN: no rash LDA: # HD Cath : Right internal jugular 04/20/2021 #CVC: Left IJ 05/06/2021 Urinary Catheter Management: Carroll: Cath Placed During This Visit: yes, but has since been removed by the nurse Reason for Continuing Indwelling Catheter: Accurate Measurement of Urinary Output in Critically Ill Patients Urinary Catheter Date of Insertion: 05/04/21 Urinary Catheter Time of Insertion: 14:00 Date Urinary Catheter Removed: 04/28/21 Time Urinary Catheter Discontinued: 10:30 Data : 05/07/21 03:30 05/07/21 03:30 Other Labs: Radiology Impressions Abdomen Ultrasound 04/19/21 02:25 IMPRESSION: 1. Cholelithiasis. Chest CT 04/19/21 02:25 IMPRESSION: 1. Nonspecific gallbladder distention. No calcified stones. 2. Mild retroperitoneal stranding about the pancreas, correlate with pancreatic enzymes. 3. Bilateral pulmonary infiltrates which may be seen with atypical pneumonia. Chest/Abdomen/Pelvis CT 04/22/21 07:35 IMPRESSION: 1. Proximal main pulmonary arteries are normal. A few filling defects in the left lower lobe pulmonary artery suspicious for pulmonary embolus. Images degraded by breathing artifact. 2. Endotracheal tube with tip above the tracey. Enteric tube with tip below the diaphragm in the distal stomach. 3. Air-fluid level in the stomach. Air distended transverse colon compatible with adynamic ileus. 4. Diffuse bilateral pulmonary infiltrates have improved in the lung bases but progressed in the perihilar regions and upper lobes with partial confluence and consolidation in the lung apices with air bronchograms. 5. Small amount of pancreatic edema is similar to previous. Recommend correlation for pancreatitis. 6. Enlarged kidneys bilaterally with heterogeneous enhancement. Correlation for renal insufficiency. No hydronephrosis. 7. Small amount of free fluid in the pelvis. Diffuse body wall anasarca. Message left for Paresh Reese MD at 04/22/2021 11:55 AM. Gallbladder Ultrasound 04/25/21 07:53 IMPRESSION: 1. Slightly hyperechoic liver, which can be seen with fatty infiltration or hepatocellular disease. 2. Nonspecific hepatic hypoechoic lesion adjacent to the gallbladder, which may represent fat sparing. Further evaluation with contrast enhanced abdomen MRI should be considered in the adequate clinical setting. 3. Cholelithiasis without evidence of cholecystitis. 4. Right pleural effusion. Head CT 04/25/21 14:00 IMPRESSION: 1. No acute intracranial abnormality. 2. Rwho-hw-tbevdhsg sinusitis. 3. Bilateral mastoiditis and right otitis media. Abdomen/Pelvis CT 04/25/21 14:08 IMPRESSION: 1. Bibasilar opacities may be aspiration related, ARDS or pneumonia. 2. Possible contrast nephropathy, correlate clinically. 3. Trace ascites and mild to moderate anasarca. 4. Mild residual pancreatitis. KUB X-Ray 04/26/21 14:33 IMPRESSION: No acute findings. Chest X-Ray 05/06/21 18:24 IMPRESSION: 1. Endotracheal tube tip in place 15 mm above the tracey. 2. Left central venous catheter seen with tip at the atrial caval junction. 3. Bilateral left greater than right airspace infiltrates. 4. Enteric tube tip extending below the diaphragm inferiorly off the field of view. Laboratory Results WBC 8.7 10^3/uL (4.0-10.0) 05/07/21 03:30 Corrected WBC 8.5 10^3/cmm (4.8-10.8) 04/23/21 18:20 RBC 2.67 10^6/uL (4.1-5.3) L 05/07/21 03:30 Hgb 8.3 g/dL (11.5-15.3) L 05/07/21 03:30 Hct 27.2 % (37.0-47.0) L 05/07/21 03:30 MCV 101.9 fl (81-99) H 05/07/21 03:30 MCH 31.1 pg (28.0-34.0) 05/07/21 03:30 MCHC 30.5 g/dL (30.0-36.0) 05/07/21 03:30 RDW 17.4 % (12.1-15.1) H 05/07/21 03:30 Plt Count 253 10^3/cmm (130-400) 05/07/21 03:30 MPV 11.0 fL (7.4-10.4) H 05/07/21 03:30 Neut % (Auto) 58.3 % 05/07/21 03:30 Lymph % (Auto) 25.9 % 05/07/21 03:30 [place] % (Auto) 9.5 % 05/07/21 03:30 Eos % (Auto) 4.0 % 05/07/21 03:30 Baso % (Auto) 1.0 % 02/17/22 03:30 Neut # (Auto) 5.04 10^3/uL (1.8-7.7) 05/07/21 03:30 Lymph # (Auto) 2.2 10^3/uL (0.8-4.8) 05/07/21 03:30 [place] # (Auto) 0.8 10^3/uL (0.2-0.9) 05/07/21 03:30 Eos # (Auto) 0.4 10^3/uL (0.0-0.8) 05/07/21 03:30 Baso # (Auto) 0.1 10^3/uL (0.0-0.1) 05/07/21 03:30 Nucleated RBC % (auto) 0.6 % 05/07/21 03:30 Total Counted 100 (0-100) 04/29/21 07:50 Atypical Lymphs % 5.0 % (0-5) 04/29/21 07:50 Absolute Neutrophils 7.6 10^3/cmm (1.4-6.5) H 04/29/21 07:50 Segmented Neutrophils 51 % 04/29/21 07:50 Abs Segm Neuts (Man) 7.1 10/cmm (1.6-7.1) 04/29/21 07:50 Band Neutrophils 3.0 % 04/29/21 07:50 Abs Band Neuts (Man) 0.4 10^3/cmm (0.0-1.2) 04/29/21 07:50 Absolute Lymphocytes 5.2 10^3/cmm (1.2-3.4) H 04/29/21 07:50 Lymphocytes (Manual) 32 % 04/29/21 07:50 Monocytes (Manual) 0.0 % 04/29/21 07:50 Absolute Monocytes 0.0 10^3/cmm (0.1-0.6) L 04/29/21 07:50 Eosinophils (Manual) 2 % 04/29/21 07:50 Absolute Eosinophils 0.2 10^3/cmm (0.0-0.7) 04/29/21 07:50 Basophils (Manual) 0.0 % 04/29/21 07:50 Absolute Basophils 0.0 10^3/cmm (0.0-0.2) 04/29/21 07:50 Metamyelocytes 5.0 % 04/29/21 07:50 Myelocytes 2.0 % 04/29/21 07:50 Nucleated RBCs 3.0 /100WBC (0-1) H 04/29/21 07:50 Nucleated RBCs # 0.1 /100WBC 05/07/21 03:30 Platelet Estimate Normal (Normal) 04/29/21 07:50 Hypochromasia 2+ H 04/23/21 18:20 Basophilic Stippling Trace 04/21/21 Unknown Anisocytosis Trace 04/29/21 07:50 PT 16.40 SECONDS (12.1-14.9) H 04/19/21 03:00 INR 1.28 (0.8-1.2) H 04/19/21 03:00 APTT 64.9 SECONDS (23.9-36.7) H D 05/07/21 08:16 Fibrinogen 310 mg/dL (174-498) 04/19/21 03:00 Fibrin Degrad Products Pos, 10-40 ug/mL (NEG) H 04/19/21 03:00 D-Dimer 6.68 ug/mIFEU (0-0.59) H 04/21/21 03:50 Specimen Type Arterial 05/07/21 03:42 Sample Site Brachial, right 05/07/21 03:42 ABG pH 7.39 (7.35-7.45) 05/07/21 03:42 ABG pCO2 39.1 mmHg (35-45) 05/07/21 03:42 ABG pO2 55.2 mmHg (80.0-100.0) L 05/07/21 03:42 ABG HCO3 23.8 mmol/L (22-26) 05/07/21 03:42 ABG O2 Saturation 95.9 05/06/21 13:12 ABG Base Excess -0.9 mmol/L (-2.0-2.0) 05/07/21 03:42 Dennis Test N/a 05/07/21 03:42 A-a O2 Gradient 36.9 mmHg (5-10) H 05/06/21 13:12 Hematocrit 31.8 % (37-47) L 05/07/21 03:42 Hgb O2 Saturation 93.7 % (95-100) L 05/06/21 13:12 Carboxyhemoglobin 1.1 %THgb (0.4-20.1) 05/06/21 13:12 Methemoglobin 1.1 % (0.4-1.5) 05/06/21 13:12 Total Hemoglobin 9.6 g/dL (12-16) L 05/06/21 13:12 Sodium 145.0 mmol/L (131-143) H 05/06/21 13:12 Potassium 3.5 mmol/L (3.5-5.0) 05/06/21 13:12 Glucose 130.0 mg/dL (70-115) H 05/06/21 13:12 Ionized Calcium 1.3 mmol/L (1.1-1.4) 05/06/21 13:12 Respiration Rate 20.0 % 04/23/21 05:25 O2 Delivery Device Vent 05/07/21 03:42 Mechanical Rate 20.0 04/26/21 04:00 FiO2 45.0 % 05/07/21 03:42 Tidal Volume 0.30 05/07/21 03:42 PEEP 6.0 cmH20 05/07/21 03:42 Grounds/Maintenance Specialist ID Hinja 05/07/21 03:42 Sodium 141 mmol/L (136-145) 05/07/21 03:30 Potassium 3.3 mmol/L (3.5-5.1) L 05/07/21 03:30 Chloride 103 mmol/L (98-107) 05/07/21 03:30 Carbon Dioxide 23 mmol/L (22-29) 05/07/21 03:30 Anion Gap 18.3 (5-19) 05/07/21 03:30 BUN 32 mg/dL (6-20) H 05/07/21 03:30 Creatinine 3.5 mg/dL (0.5-0.9) H 05/07/21 03:30 GFR Calculation 14.5 mL/min (90-130) L 05/07/21 03:30 Glucose 131 mg/dL (65-115) H 05/07/21 03:30 POC Glucose 131 mg/dL (70-110) H 05/07/21 11:08 Estimat Average Glucose 134 04/18/21 22:48 Hemoglobin A1c 6.3 % (4.0-6.0) H 04/18/21 22:48 Calculated Osmolality 301 mOsm/kg (285-295) H 05/07/21 03:30 Lactic Acid 5.1 mmol/L (0.5-2.2) H* 04/20/21 03:20 Lactic Acid (Sepsis) 4.7 mmol/L (0.5-2.2) H* 04/20/21 06:47 Lactate 0.9 mmol/L (0.5-2.2) 05/06/21 07:20 Uric Acid 12.0 mg/dL (2.4-5.7) H 04/20/21 09:20 Calcium 8.7 mg/dL (8.5-10.5) 05/07/21 03:30 Phosphorus 4.4 mg/dL (2.5-4.5) 05/07/21 03:30 Magnesium 1.6 mg/dL (1.7-2.3) L 05/07/21 03:30 Iron 37 ug/dL (37-145) 04/23/21 06:20 TIBC 157 mcg/dl 04/23/21 06:20 % Saturation 23.5 % (20-50) 04/23/21 06:20 Unsat Iron Binding 120 ug/dL (112-347) 04/23/21 06:20 Ferritin 481 ng/mL (15-150) H 04/22/21 00:32 Total Bilirubin 0.5 mg/dL (0.15-1.2) 05/07/21 03:30 GGT 108 U/L (5-36) H 04/19/21 03:00 AST 16 U/L (0-32) 05/07/21 03:30 ALT < 5 U/L (0-33) 05/07/21 03:30 Alkaline Phosphatase 182 IU/L (35-105) H 05/07/21 03:30 Lactate Dehydrogenase 491 U/L (135-214) H 04/30/21 03:58 Creatine Kinase 79 U/L (26-192) 04/19/21 03:00 Troponin T Baseline 31 ng/L (0-10) H 04/20/21 16:45 Troponin T 120 Minute 31.12 ng/L (0-10) H 04/20/21 19:44 Delta Troponin T 0.12 ABS# (0-10) 04/20/21 19:44 Troponin T Hi Sens 6Hr 27.06 ng/L (0-10) H 04/21/21 03:50 Troponin T Hi Sens 6Hr Delta -3.94 ng/L (0-12) L 04/21/21 03:50 C-Reactive Protein 100.4 mg/L (0.0-4.9) H 04/26/21 05:45 Total Protein 5.7 g/dL (6.6-8.7) L 05/07/21 03:30 Albumin 2.6 g/dL (3.5-5.2) L 05/07/21 03:30 Globulin 3.1 g/dL (1.3-4.6) 05/07/21 03:30 Triglycerides 374 mg/dL (0-150) H 05/07/21 03:30 Cholesterol 322 mg/dL (0-200) H 04/19/21 03:00 LDL Cholesterol Direct 82 mg/dL (0-100) 04/28/21 09:38 LDL Cholesterol, Calc Not Reportable 04/19/21 03:00 HDL Cholesterol 12 mg/dL (60-100) L 04/19/21 03:00 LDL/HDL Ratio Not Reportable 04/19/21 03:00 Cholesterol/HDL Ratio 26.83 mg/dL (0.0-4.40) H 04/19/21 03:00 Lipase 20 U/L (13-60) 05/06/21 07:25 25-OH Vitamin D Total 7 ng/mL (30-100) L 04/21/21 03:50 1,25 Dihydroxy Vit D2 <8 pg/mL 04/20/21 03:20 1,25 Dihydroxy Vit D3 <8 pg/mL 04/20/21 03:20 Procalcitonin 0.43 ng/mL (0-0.5) 04/30/21 03:58 TSH 1.02 uIU/mL (0.27-4.20) 04/19/21 03:00 HCG, Qual Negative (Negative) 04/18/21 22:48 PTH Intact 274.7 pg/mL (15-65) H 04/21/21 03:50 Calcium (PTH Intact) 6.7 mg/dL (8.5-10.5) L 04/21/21 03:50 Urine Color Yellow (Yellow) 05/05/21 08:00 Urine Appearance Clear (CLEAR) 05/05/21 08:00 Urine pH 8 (5-7) H 05/05/21 08:00 Ur Specific [place] 1.005 (1.005-1.030) 05/05/21 08:00 Urine Protein Neg (Negative) 05/05/21 08:00 Urine Glucose (UA) Norm (Normal) 05/05/21 08:00 Urine Ketones Negative (Negative) 05/05/21 08:00 Urine Blood 2+ (Negative) H 05/05/21 08:00 Urine Nitrate Negative (Negative) 05/05/21 08:00 Urine Bilirubin Neg (Negative) 05/05/21 08:00 Prot Sulfosalicylic Acd Negative (Negative) 05/05/21 08:00 Urine Urobilinogen Norm mg/dL (Negative) 05/05/21 08:00 Ur Leukocyte Esterase Negative (Negative) 05/05/21 08:00 Urine RBC 0-4 /hpf (0-2) H 05/05/21 08:00 Urine WBC 10-15 /hpf (0-5) H 05/05/21 08:00 Ur Eosinophil Smear 0 (0-0) 04/19/21 05:35 Ur Squamous Epith Cells 0-4 /hpf (0-5) H 05/05/21 08:00 Amorphous Sediment Not Reportable 05/05/21 08:00 Urine Bacteria Trace /hpf (NONE) 05/05/21 08:00 Urine Eosinophils No eosinophils seen 04/19/21 05:35 Ur Random Creatinine 128 mg/dL (20-275) 04/19/21 05:35 Ur Random Albumin 46 % 04/19/21 05:35 U Random Total Protein 727 mg/dL (5-24) H 04/19/21 05:35 Ur Random Sodium 57 mmol/L 04/19/21 05:35 Ur Random Potassium 27 mmol/L 04/19/21 05:35 Ur Random Chloride 50 mmol/L 04/19/21 05:35 Urine Creatinine 139 mg/dL (28-217) 04/19/21 05:35 Protein/Creatinin Ratio 5680 mg/g creat (21-161) H 04/19/21 05:35 Protein/Creat Ratio 24h 5.680 (0.021-0.161) H 04/19/21 05:35 U Random m-3-Ilysabwo % 4 % 04/19/21 05:35 U Random x-0-Wyjglomm % 12 % 04/19/21 05:35 U Random Beta Globulin 21 % 04/19/21 05:35 U Random Gamma Glob 18 % 04/19/21 05:35 U Abnormal Prot Band 1 Not Reportable 04/19/21 05:35 U Abnormal Prot Band 2 Not Reportable 04/19/21 05:35 U Abnormal Prot Band 3 Not Reportable 04/19/21 05:35 Urine PEP Interpret See note 04/19/21 05:35 Vancomycin Trough Cancelled 05/07/21 03:30 Random Vancomycin 19.3 ug/mL (20.0-40.0) L 05/07/21 03:30 Salicylates < 0.3 mg/dL (3-10) L 04/19/21 03:00 Acetaminophen < 5.0 ug/mL (10-30) L 04/19/21 03:00 Ethylene Glycol <10.0 mg/L () 04/19/21 03:00 Volat Analys Perform On Whole blood 04/19/21 03:00 Ethyl Alcohol < 10 mg/dL (0-10) 04/19/21 03:00 Urine Ethyl Alcohol Cancelled 04/19/21 05:35 Methyl Alcohol Level None detected mg/dL 04/19/21 03:00 Serum Ketones Negative (Negative) 04/29/21 07:50 Coronavirus 229E (PCR) Not detected (NOT DETECT) 04/19/21 05:35 Hepatitis A IgM Ab Non-reactive (Nonreactive) 04/19/21 03:00 Hep Bs Antigen Non-reactive (Nonreactive) 04/20/21 03:20 Hep Bs Antibody 3.5 (11.5-1000) L 04/20/21 03:20 Hep B Core IgM Ab Non-reactive (Nonreactive) 04/19/21 03:00 Hepatitis C Antibody Non-reactive (Nonreactive) 04/20/21 03:20 HIV 1&2 Ab & HIV 1 Ag Non-reactive (Non-Reactiv) 04/19/21 03:00 HIV 1&2 Antibody Non-reactive (Non-Reactiv) 04/19/21 03:00 Influenza Type A Ag Negative (Negative) 04/19/21 05:35 Influenza Type B Ag Negative (Negative) 04/19/21 05:35 SARS-CoV-2 (PCR) Detected (NOT DETECT) A 04/19/21 05:35 SARS-CoV-2 Ag (Rapid) Negative (Negative) 04/18/21 21:49 [facility] [place] See comment 04/19/21 05:35 Blood Type O Positive 04/23/21 20:40 Rho(D) Type Positive 04/23/21 20:40 Antibody Screen Negative 04/23/21 20:40 Crossmatch See Detail 04/23/21 20:40 Micro: Microbiology 05/05/21 08:00 Urine Culture - Preliminary Urine,Clean Catch 05/06/21 14:00 Gram Stain - Final Sputum - Endotracheal Tube Aspirate 05/05/21 22:00 Blood Culture - Preliminary Blood NEGATIVE TO DATE 05/05/21 21:59 Blood Culture - Preliminary Blood NEGATIVE TO DATE 05/06/21 11:00 C.difficile Toxin B Gene (PCR) - Final Stool - Stool Aspirate A&P Assessment and plan (1) Acute respiratory distress syndrome (ARDS) due to 2019 novel coronavirus: Status: Acute (2) COVID: Status: Acute (3) Increased anion gap metabolic acidosis: Status: Acute (4) Acute encephalopathy: Status: Acute (5) Acute pancreatitis: Status: Acute (6) Mild mental handicap: Status: Acute (7) GODFREY (generalized anxiety disorder): Status: Acute (8) Essential hypertension: Status: Acute (9) Hypertriglyceridemia: Status: Acute (10) Leukocytosis: Status: Acute (11) Aspiration pneumonia: Status: Acute (12) Hypovolemic shock: Status: Acute Plan # Acute hypoxic respiratory failure in patient with COVID-19 pneumonia and fluid overload secondary to TONY -possible ARDS and patient with COVID-19 PCR positive/pancreatitis; subsegmental PE on CT #Subsegmental PE-on heparin drip #TONY due to hypovolemia-ischemic ATN/MAMI/Covid TONY-currently on HD #Hypovolemic shock secondary to pancreatitis-currently off pressors #Pancreatitis secondary to hypertriglyceridemia #Generalized anxiety disorder #Low-grade fevers -Intubated on 04/20/2021 night after an episode of vomiting-extubated 05/01/2021- did well on room air until 05/04/2021, unable to tolerate hemodialysis due to hypotension and tachypnea-with increasing FiO2 requirements she got reintubated 05/06/2021 -Currently on CMV/18/7/3 100/60% PIP 33-ABG 7.3 9/39/55/23 on CMV 45%/300/6 -On fentanyl and Versed-recommended to taper off Versed and start Precedex -Start Seroquel 25 mg p.o. at bedtime -Plan is to continue to do hemodialysis and continue awakening trial -Ketones negative, triglycerides 374-hold off propofol for now -Repeat CT head did not show any acute intracranial abnormality/there is mild to moderate sinusitis with bilateral mastoiditis and right otitis media -Completed remdesivir and currently on dexamethasone; received Zosyn for possible aspiration pneumonia for 5 days and later changed to imipenem until 05/03/2021 and started on Augmentin -patient continues to spike low-grade fevers and and due to worsening FiO2 requirements-sent for blood cultures, sputum cultures and restarted on vancomycin/imipenem/caspofungin as previous sputum culture is growing Coco parous peliosis -Continue monitoring respiratory status and saturations closely -CT angiogram subsegmental PE; bilateral venous Doppler negative for DVT-on heparin drip -switch to to Elliquis while extubated-restarted heparin drip again -Last CT abdomen pelvis 04/25/2021: Trace ascites with mild residual pancreatitis - Continue tube feeding -monitor FSBS closely and adjust IV insulin accordingly -Hemodialysis as per renal -Patient's family updated at bedside -Prognosis guarded Patient recovered from pancreatitis, hypoxic respiratory failure secondary to fluid overload while on hemodialysis-successfully extubated to room air and did well for 3 to 4 days-even started making make some urine-deteriorated respiratory hall for possible fluid overload-unfortunately did not tolerate hemodialysis and has to be reintubated. We will continue hemodialysis for now and evaluate daily for possible extubation Recommendations conveyed to hospitalist, RN, RT taking care of the patient Attestations Medical Necessity Statement*: Hypoxic respiratory failure secondary to ARDS due to COVID-19 pneumonia/pancreatitis-fluid overload due to TONY and patient with underlying Covid pneumonia and aspiration pneumonia-requiring mechanical intubation and hemodialysis Time Spent in Patient Care: Greater than 35 minutes (>than 50% of time spent in counselling and/or direct pt care on unit) . Critical Care Time: The high probability of a clinically significant, sudden or life threatening deterioration of the patient's [neurological, pulmonary, renal system(s) required my full and direct attention, intervention and personal management. The critical care time is as shown. This time is in addition to time spent performing any reported procedures but includes the following: [x] Data and vital sign review and interpretation [x] Patient assessment, examination and intervention [x] Documentation [x] Medication orders and management Critical Care Time (min): 52 Coding Level of Care Code Established Pt Acute Steam Box Tender for Chg Fwd Patient Type Established History Comprehensive Exam Comprehensive Medical Decision Making High Complexity Diagnoses Acute respiratory distress syndrome (ARDS) due to 2019 novel coronavirus U07.1; J80 COVID U07.1 Increased anion gap metabolic acidosis E87.2 Acute encephalopathy G93.40 Acute pancreatitis K85.90 Mild mental handicap F70 GODFREY (generalized anxiety disorder) F41.1 Essential hypertension I10 Hypertriglyceridemia E78.1 Leukocytosis D72.829 Aspiration pneumonia J69.0 Hypovolemic shock R57.1 Time Spent (min) 52
[2021-05-07] MEDS: vancomycin 750 MG in sodium chloride 0.9% 250 ML 250 MG IV (15:39)
[2021-05-07 16:12] LABS: Partial Thromboplastin Time 99.5 SECONDS (23.9-36.7)
[2021-05-07 16:24] LABS: Glucose Point of Care 126 mg/dL (70-110)
--- NOTE | 2021-05-07 16:46 | PM.PN ---
Subjective Subjective: I spoke with Dr. Sue and Radhames to hold off on permacath placement for at least 48 hours, she has been febrile overnight She spiked fever again and this was before HD , no growth on blood cultures yet HD at 9am, fever at 8am PO2 fifty-five on FiO2 45% this morning she was on ventilator settings FiO2 fifty-five PEEP eight, minute ventilation six, peak pressure 32 Fentanyl running at 100, levo at three, Precedex at 0.3 Versed at six, Dr. Costello recommended titrating off Versed first, She is going for dialysis today Family at the bedside:-Updated My concern is regarding febrile source VAP vs hemodialysis catheter infection Requesting CT CHEST ABD PELVIS Vitals/I&O/Wt Last Vital Signs Temp 100.4 F H 05/07/21 08:00 Pulse 120 H 05/07/21 16:00 Resp 21 H 05/07/21 15:35 BP 108/58 05/07/21 16:00 Pulse Ox 92 05/07/21 16:00 05/07/21 05/07/21 05/07/21 06:59 14:59 22:59 Intake Total 535.296 / 1256.167 648.217 / 648.217 510.051 / 1158.268 Output Total 175 / 3800 2500 / 2500 Balance 360.296 / -2543.833 648.217 / 648.217 -1989.949 / -1341.732 Weight last 48 hrs Weight 64.637 kg Weight 60.8 kg Physical Exam Narrative: Is intubated and sedated Currently on Precedex, fentanyl, Versed Sinus tachycardia noted Clinically does not look fluid overloaded today Yellow clear urine in the bag Abdomen is firm Bilateral assisted breath sounds neuro exam is limited Left IJ central line 05/06 Right IJ dialysis catheter Urinary Catheter Management: Wynn: Cath Placed During This Visit: yes, but has since been removed by the nurse Reason for Continuing Indwelling Catheter: Accurate Measurement of Urinary Output in Critically Ill Patients Urinary Catheter Date of Insertion: 05/04/21 Urinary Catheter Time of Insertion: 14:00 Date Urinary Catheter Removed: 04/28/21 Time Urinary Catheter Discontinued: 10:30 Data : 05/07/21 03:30 05/07/21 03:30 Micro: Microbiology 05/05/21 08:00 Urine Culture - Preliminary Urine,Clean Catch 05/06/21 14:00 Gram Stain - Final Sputum - Endotracheal Tube Aspirate 05/05/21 22:00 Blood Culture - Preliminary Blood NEGATIVE TO DATE 05/05/21 21:59 Blood Culture - Preliminary Blood NEGATIVE TO DATE 05/06/21 11:00 C.difficile Toxin B Gene (PCR) - Final Stool - Stool Aspirate A&P Assessment and plan (1) Yeast detected: Status: Acute (2) Acute respiratory failure requiring reintubation: Status: Acute (3) Pulmonary embolism: Status: Acute (4) Hypovolemic shock: Status: Acute (5) Aspiration pneumonia: Status: Acute (6) Acute respiratory distress syndrome (ARDS) due to 2019 novel coronavirus: Status: Acute (7) ATN (acute tubular necrosis): Status: Acute (8) COVID: Status: Acute (9) Acute pancreatitis: Status: Acute (10) Hypertriglyceridemia: Status: Acute Plan Patient was admitted on 04/19 for severe metabolic acidosis, hypertriglyceridemia induced pancreatitis, COVID-19 related ARDS First intubation 04/21 after an episode of vomiting while on BiPAP, developed aspiration pneumonia Right IJ dialysis catheter placed 04/20, extubated on 05/01 She did very well between 05/01 and 05/04, she was doing well on room air, wynn removed, antibiotic switched to Augmentin, started making urine, she was able to eat, bowel movements were regular no episodes of vomiting, fever susided Hypertriglyceridemia with pancreatitis improved with insulin gtt and avoiding propofol 05/05 she developed pulmonary edema again, she got worse overnight got transferred to ICU and got intubated on 05/06 for worsening tachypnea Febrile episodes We will take blood culture from hemodialysis catheter, will ask dialysis nurse to do it Other potential sources: Ventilator associated pneumonia left lung base infiltrate greater than right, abnormal UA, Her febrile episodes were pretty persistent during intubation between 04/21- 05/01,, Cultures negative to date, I have added caspofungin yesterday 05/[address] chest abdomen pelvis C. difficile negative She did not show typical signs of meningitis She has sacral ulcer stage I, Wynn catheter was placed yesterday 05/06 with intubation Follow-up with urine culture, abnormal UA noted No leukocytosis No eosinophilia She does have gallstones, I did request ultrasound of her gallbladder which did not show acute cholecystitis She had COVID-19 infection, currently not on isolation, finished remdesivir and Decadron Hypovolemic shock: Low albumin, Her pressure dropped significantly during dialysis Currently requiring levo Repeat echo as first echo was inconclusive Pulmonary embolism This was detected on CTA during her first intubation She was kept on heparin drip and later switched to Eliquis Since reinitiation of dialysis I have switched her back to heparin drip ATN She will need permacath placement However because of febrile episodes, this has been put on hold, cultures negative to date I have updated Dr. Sue regarding my concerns, kindly update him tomorrow because today Dr. Ricci requested permacath placement Hypertriglyceridemia induced pancreatitis: Very difficult to treat her hypertriglyceridemia It took us a lot of days to bring her triglycerides down initially Avoid propofol Continue fenofibrate Start tube feed today Heparin drip would suffice DVT prophylaxis Full code Parents stay with her most of the time We are hopeful that hypervolemic state will improve with dialysis, will start weaning trial once her hypervolemia improves, if we are not able to wean her off this time family is aware that tracheostomy and PEG tube will be needed Attestations Medical Necessity Statement*: Continue ICU management Time Spent in Patient Care: 40mins Coding Level of Care Code Acute Supervisor Transferring And Boxing for Chg Fwd Diagnoses Yeast detected B37.9 Acute respiratory failure requiring reintubation J96.00 Pulmonary embolism I26.99 Hypovolemic shock R57.1 Aspiration pneumonia J69.0 Acute respiratory distress syndrome (ARDS) due to 2019 novel coronavirus U07.1; J80 ATN (acute tubular necrosis) N17.0 COVID U07.1 Acute pancreatitis K85.90 Hypertriglyceridemia E78.1
--- NOTE | 2021-05-07 16:58 | CTR_ITS ---
PROCEDURE INFORMATION: Exam: CT Chest Without Contrast; Diagnostic Exam date and time: 05/07/2021 4:58 PM Age: 40 years old Clinical indication: Fever; Patient HX: Febrile with diarrhea; Additional info: Febrile , diarrhea TECHNIQUE: Imaging protocol: Diagnostic computed tomography of the chest without contrast. Radiation optimization: All CT scans at this facility use at least one of these dose optimization techniques: automated exposure control; mA and/or kV adjustment per patient size (includes targeted exams where dose is matched to clinical indication); or iterative reconstruction. COMPARISON: CT abdomen pelvis con [id number] 04/25/2021 6:22 PM RADIATION DOSE METRICS: Total DLP (mGy-cm): 1456.81 FINDINGS: Tubes, catheters and devices: Endotracheal tube and enteric tube seen in place. Left-sided central venous catheter. Lungs: Patchy bilateral airspace infiltrates. Pleural spaces: Unremarkable. No pneumothorax. No pleural effusion. Heart: Unremarkable. No cardiomegaly. No pericardial effusion. Aorta: Unremarkable. No aortic aneurysm. Lymph nodes: Unremarkable. No enlarged lymph nodes. Bones/joints: Unremarkable. No acute fracture. Soft tissues: Unremarkable. PROCEDURE INFORMATION: Exam: CT Abdomen And Pelvis Without Contrast Exam date and time: 05/07/2021 4:58 PM Age: 40 years old Clinical indication: Fever; Patient HX: Febrile with diarrhea; Additional info: Febrile , diarrhea TECHNIQUE: Imaging protocol: Computed tomography of the abdomen and pelvis without contrast. Radiation optimization: All CT scans at this facility use at least one of these dose optimization techniques: automated exposure control; mA and/or kV adjustment per patient size (includes targeted exams where dose is matched to clinical indication); or iterative reconstruction. COMPARISON: CT abdomen pelvis con [id number] 04/25/2021 6:22 PM RADIATION DOSE METRICS: Total DLP (mGy-cm): 1456.81 FINDINGS: Liver: Normal. No mass. Gallbladder and bile ducts: Normal. No calcified stones. No ductal dilation. Pancreas: Normal. No ductal dilation. Spleen: Normal. No splenomegaly. Adrenal glands: Normal. No mass. Kidneys and ureters: Normal. No hydronephrosis. Stomach and bowel: Prominent fluid in the small bowel without dilation may reflect an enteritis in the appropriate clinical setting. Appendix: No evidence of appendicitis. Intraperitoneal space: Small amount of nonspecific fluid in the pelvis. Vasculature: Unremarkable. No abdominal aortic aneurysm. Lymph nodes: Unremarkable. No enlarged lymph nodes. Urinary bladder: Carroll catheter in the urinary bladder. Reproductive: Unremarkable as visualized. Bones/joints: Unremarkable. No acute fracture. Soft tissues: Subcutaneous edema about the pelvis and abdomen, nonspecific. CT/CT chest abd pel wo con IMPRESSION: Patchy bilateral airspace infiltrates. IMPRESSION: 1. Prominent fluid in the small bowel without dilation may reflect an enteritis in the appropriate clinical setting. 2. Small amount of nonspecific fluid in the pelvis. 3. Subcutaneous edema about the pelvis and abdomen, nonspecific.
--- NOTE | 2021-05-07 19:39 | PC.NURSE ---
Shift Note; Pt remains intubated and sedated. Pt went to CT this evening for Chest, abdomen and pelvis. Dailysis done this am, 2500ml removed. Fentanyl gtt and Precedex gtt remains at same rate. Versed gtt stopped, pt tolerating well. Levophed stopped, MAPs remaining greater than 65. Heparin on hold for bronch in am. Mother and father were here this am, updates discussed. Eldest sister here this evening, update given. Urine output poor, 250ml. Frequent safety and comfort rounds continue. Orders and/or nursing care completed as indicated. Patient monitored for response to intervention and treatment(s). Education provided includes Fentanyl, heparin, Versed, Dialysis. 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 Will continue to monitor.
--- NOTE | 2021-05-07 19:46 | PC.NURSE ---
Addendum entered by Yane Alvarado RN 05/07/21 20:06: Versed 38.583 mls wasted/witnessed. Original Note: Versed gtt wasted. 38.583 ml per EMAR. Witnessed by Yane Alvarado RN.
[2021-05-07] MEDS: metoprolol tartrate 25 mg Tablet PO (21:06)
[2021-05-07 21:20] LABS: Glucose Point of Care 109 mg/dL (70-110)
--- NOTE | 2021-05-07 23:34 | PC.NURSE ---
Precedex increased, pt crying, nods head yes to missing her mom.
[2021-05-08] VITALS (84 sets, daily range): BP systolic 89–140; BP diastolic 55–94; PULSE 89–116; RESP 18–29; TEMP 37.1–37.9; O2SAT 90–100
[2021-05-08] MEDS: ipratropium-albuterol 3 mL Neb INHALATION ×6 (00:04→20:16)
[2021-05-08] MEDS: famotidine 20 mg/2 mL INJ IVP ×2 (01:26→13:01)
[2021-05-08 02:50] LABS: Basophils # 0.1 10^3/uL (0.0-0.1); Basophils % 1.1 %; Eosinophils # 0.4 10^3/uL (0.0-0.8); Eosinophils % 5.7 %; Hematocrit 25.6 % (37.0-47.0); Hemoglobin 7.5 g/dL (11.5-15.3); Lymphocytes # 1.8 10^3/uL (0.8-4.8); Lymphocytes % 28.5 %; Mean Corpuscular HGB Conc 29.3 g/dL (30.0-36.0); Mean Corpuscular Hemoglobin 30.7 pg (28.0-34.0); Mean Corpuscular Volume 104.9 fl (81-99); Mean Platelet Volume 10.9 fL (7.4-10.4); Monocytes # 0.5 10^3/uL (0.2-0.9); Monocytes % 7.2 %; Neutrophils # 3.54 10^3/uL (1.8-7.7); Neutrophils % 56.2 %; Nucleated Red Blood Cells % 0.6 %; Platelet Count 256 10^3/cmm (130-400); Red Blood Count 2.44 10^6/uL (4.1-5.3); Red Cell Distribution Width 17.6 % (12.1-15.1); White Blood Count 6.3 10^3/uL (4.0-10.0)
[2021-05-08 03:17] LABS: Alanine Aminotransferase < 5 U/L (0-33); Albumin Level 2.6 g/dL (3.5-5.2); Alkaline Phosphatase 180 IU/L (35-105); Anion Gap 20.8 (5-19); Aspartate Amino Transferase 16 U/L (0-32); Blood Urea Nitrogen 37 mg/dL (6-20); Calcium 8.7 mg/dL (8.5-10.5); Carbon Dioxide 20 mmol/L (22-29); Chloride 104 mmol/L (98-107); Glomerular Filtration Rate 12.5 mL/min (90-130); Glucose 101 mg/dL (65-115); Magnesium 1.5 mg/dL (1.7-2.3); Osmolality Calculated 301 mOsm/kg (285-295); Phosphorus 5.6 mg/dL (2.5-4.5); Potassium 3.8 mmol/L (3.5-5.1); Sodium 141 mmol/L (136-145); Total Bilirubin 0.5 mg/dL (0.15-1.2); Total Protein 5.6 g/dL (6.6-8.7)
[2021-05-08 03:19] LABS: Triglycerides 395 mg/dL (0-150)
[2021-05-08 04:30] LABS: Vancomycin Random 30.4 ug/mL (20.0-40.0)
--- NOTE | 2021-05-08 07:03 | PM.PN ---
Subjective Subjective: intubated, sedated. on low dose pressors. had a hypoxic and hypotensive episode overnight Medications: Reviewed: Yes Medication Review Details: Current Medications Acetaminophen (Acetaminophen 325 Mg Tablet) 650 mg PO Q6H PRN PRN Reason: Mild/Mod Pain Or Temp >/= 101 Last Admin: 04/30/21 11:37 Dose: 650 mg Documented by: Albuterol/Ipratropium (Ipratropium-Albuterol 3 Ml Neb) 3 ml INHALATION Q4H.RESPIRATORY ANNIE Last Admin: 05/08/21 03:25 Dose: 3 ml Documented by: Calcium Carbonate (Calcium Carbonate 500 Mg Chew Tablet) 1,000 mg PO TID [facility] Last Admin: 05/07/21 21:07 Dose: 1,000 mg Documented by: Dextrose (Dextrose 50% Syringe 50 Ml) 25 ml IVP ONCE PRN; Protocol PRN Reason: hypoglycemia protocol Last Admin: 04/20/21 00:25 Dose: 25 ml Documented by: Dextrose (Dextrose 50% Syringe 50 Ml) 50 ml IVP PRN PRN; Protocol PRN Reason: hypoglycemia protocol Last Admin: 04/19/21 20:35 Dose: 50 ml Documented by: Dextrose (Dextrose 50% Syringe 50 Ml) 25 ml IVP ONCE PRN; Protocol PRN Reason: hypoglycemia protocol Dextrose (Dextrose 50% Syringe 50 Ml) 50 ml IVP PRN PRN; Protocol PRN Reason: hypoglycemia protocol Epoetin Shubham (Epoetin Shubham 1000 Unit/0.05 Ml (Esrd)) 6,000 unit SUBCUT EVERY OTHER DAY [facility] Last Admin: 05/06/21 17:06 Dose: 6,000 unit Documented by: Ergocalciferol (Ergocalciferol (Vitamin D2) 50,000 Unit Capsule) 50,000 unit PO Q7D [facility] Last Admin: 05/05/21 09:00 Dose: 50,000 unit Documented by: Famotidine (Famotidine 20 Mg/2 Ml Inj) 20 mg IVP Q12H [facility] Last Admin: 05/08/21 01:26 Dose: 20 mg Documented by: Fenofibrate (Fenofibrate 145 Mg Tablet) 145 mg PO DAILY [facility] Last Admin: 05/07/21 09:29 Dose: 145 mg Documented by: Glucagon (Glucagon 1 Mg/Ml Inj 1 Ml) 1 mg IM ONCE PRN; Protocol PRN Reason: Adult Acute Hypoglycemia Prot. Heparin Sodium (Porcine) (Heparin 5,000 Unit/Ml Inj 1 Ml) 0 unit IV PRN PRN; Protocol PRN Reason: Heparin weight-base protocol Last Admin: 05/06/21 15:56 Dose: 3,500 unit Documented by: Dextrose (D5w) 500 mls @ 100 mls/hr IV ONCE PRN; Protocol PRN Reason: Adult Acute Hypoglycemia Prot Heparin Sodium/Sodium Chloride (Heparin Drip) 25,000 unit in 500 mls @ 0 mls/hr IV .Q0M ANNIE; Protocol Last Titration: 05/07/21 18:35 Dose: Infused Documented by: Imipenem/Cilastatin Sodium 250 (mg/ Sodium Chloride) 100 mls @ 200 mls/hr IV Q12H ANNIE; Protocol Last Infusion: 05/08/21 05:25 Dose: Infused Documented by: Furosemide 100 mg/ Sodium (Chloride) 50 mls @ 0 mls/hr IV .Q0M ANNIE; Protocol Last Titration: 05/06/21 11:00 Dose: 0 mg/hr, 0 mls/hr Documented by: Dexmedetomidine HCl 1,000 mcg/ (Sodium Chloride) 260 mls @ 0 mls/hr IV .Q0M ANNIE; Protocol Last Titration: 05/08/21 01:21 Dose: 0.5 mcg/kg/hr, 9.15 mls/hr Documented by: Fentanyl 2,500 mcg/ Sodium (Chloride) 250 mls @ 0 mls/hr IV .Q0M ANNIE; Protocol Last Admin: 05/07/21 12:45 Dose: 100 mcg/hr, 10 mls/hr Documented by: Midazolam HCl 100 mg/ Sodium (Chloride) 100 mls @ 0 mls/hr IV .Q0M ANNIE; Protocol Last Titration: 05/07/21 18:35 Dose: Infused Documented by: Norepinephrine Bitartrate 8 mg (/ Dextrose) 508 mls @ 0 mls/hr IV .Q0M ANNIE; Protocol Last Titration: 05/08/21 00:59 Dose: 1 mcg/min, 3.81 mls/hr Documented by: Caspofungin 50 mg/ Sodium (Chloride) 250 mls @ 250 mls/hr IV Q24H ANNIE Last Infusion: 05/07/21 20:24 Dose: Infused Documented by: Vancomycin HCl 750 mg/ Sodium (Chloride) 250 mls @ 250 mls/hr IV DIALYSIS [facility] Last Infusion: 05/07/21 18:18 Dose: Infused Documented by: Albumin Human (Albumin) 12.5 gm in 50 mls @ 60 mls/hr IV PRN PRN PRN Reason: Hypotension and/or symptomatic Magnesium Sulfate (Magnesium Sulfate Premix) 4 gm in 100 mls @ 50 mls/hr IV ONCE ONE Stop: 05/08/21 08:30 Insulin Human Lispro (Insulin Lispro 100 Unit/1 Ml) 0 unit SUBCUT WM&BEDTIME [facility]; Protocol Last Admin: 05/07/21 21:38 Dose: Not Given Documented by: Lactulose (Lactulose Oral Liq 20 Gm/30 Ml Udc) 10 gm PO DAILY PRN PRN Reason: CONSTIPATION Lanolin (Lanolin Oint 7 Gm) 1 applic TOPICAL PRN PRN PRN Reason: DRYNESS Lorazepam (Lorazepam 2 Mg/Ml Inj 1 Ml) 1 mg IVP Q8H PRN PRN Reason: ANXIETY Last Admin: 05/06/21 11:15 Dose: 1 mg Documented by: Metoprolol Tartrate (Metoprolol Tartrate 25 Mg Tablet) 25 mg PO BID@0900,2100 [facility] Last Admin: 05/07/21 21:06 Dose: 25 mg Documented by: Naloxone HCl (Naloxone 0.4 Mg/Ml Sdv) 0.1 mg IVP Q2M PRN PRN Reason: OPIATERV Ondansetron HCl (Ondansetron 2 Mg/Ml Sdv 2 Ml) 4 mg IVP Q8H PRN PRN Reason: vomiting, or N/V if npo Last Admin: 05/06/21 11:14 Dose: 4 mg Documented by: Quetiapine Fumarate (Quetiapine 25 Mg Tablet) 25 mg PO BEDTIME [facility] Last Admin: 05/05/21 21:23 Dose: Not Given Documented by: Rocuronium Novice (Rocuronium 10 Mg/Ml Inj 5ml) 80 mg IVP Q1H PRN 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 Last Admin: 05/06/21 15:41 Dose: 80 mg Documented by: Senna/Docusate Sodium (Sennosides-Docusate Tablet) 2 tab PO DAILY [facility] Last Admin: 05/07/21 09:29 Dose: 2 tab Documented by: Vitals/I&O/Wt Last Vital Signs Temp 100.2 F H 05/08/21 06:00 Pulse 106 H 05/08/21 06:30 Resp 24 H 05/08/21 06:35 BP 94/64 05/08/21 06:30 Pulse Ox 98 05/08/21 06:35 05/07/21 05/08/21 05/08/21 22:59 06:59 14:59 Intake Total 1257.776 / 1905.993 178.239 / 2084.232 Output Total 2850 / 2850 300 / 3150 Balance -1592.224 / -944.007 -121.761 / -1065.768 Weight last 48 hrs Weight 63.503 kg Weight 64.637 kg Weight 60.8 kg Physical Exam Narrative: intubated, temp 99 tp 100.2 , levo @ 2 vent peep 8, fio2=60%, TV 300, rr 18 heent- nc/at, eomi, anicteric neck supple- rt ij dialysis catheter lungs - dull bases b/l heart reg, +ROBERT abd soft, nt, nd, + bs ext - b/l leg edema neuro- sedated Urinary Catheter Management: Wynn: Cath Placed During This Visit: yes, but has since been removed by the nurse Reason for Continuing Indwelling Catheter: Accurate Measurement of Urinary Output in Critically Ill Patients Urinary Catheter Date of Insertion: 05/04/21 Urinary Catheter Time of Insertion: 14:00 Date Urinary Catheter Removed: 04/28/21 Time Urinary Catheter Discontinued: 10:30 Data : 05/08/21 02:30 05/08/21 02:30 Micro: Microbiology 05/07/21 18:44 Blood Culture - Preliminary Blood SPECIMEN COLLECTED 05/05/21 08:00 Urine Culture - Preliminary Urine,Clean Catch 05/06/21 14:00 Gram Stain - Final Sputum - Endotracheal Tube Aspirate A&P Assessment and plan (1) ATN (acute tubular necrosis): 40 yr old female 1. Acute kidney injury likely secondary to acute tubular injury -now oliguric -s/p HD last 3 days -cxr w/ failure ct scan noted -repeat hd for 3 hrs, remove 2 l, 3 k bath -repeat hd in am and then remove HD catheter - Monitor UOP and chemistries Dose medication for GFR less than 15 on dialysis + wynn -new dialysis catheter next week 2. abg- balanced , hypoxic. attempt SUF -hypoxemia can be from PE and COVID-19- will see how does w/ SUF -UF does not seem to be helping her -agree w/ bronchoscopy 3. fevers- robbins culture- renal dose abx -so far neg -had valentin in sputum on 04/29/21 4.anemia- hgb 7.5 - ferritin 481, tsat 23% -chyna -consider prbc tx 5. Pancreatitis Secondary to hypertriglyceridemia, triglyceride levels now trending down, 323 mgmt per medicine 6. phos binder if eating -replace mag 7. DM control 8. covid-19 per medicine 9. meds reviewed Exam and interview performed with aid of bedside RN using telemedicine Time spent >30 min inc > 50% of time in face to face counseling -discussed w/ Dr. Pravin Thorne [facility] Mahesh Ricci MD Status: Acute Plan see above Attestations Medical Necessity Statement*: buddy, vdrf, pe, covid Time Spent in Patient Care: 16 - 35 minutes (>than 50% of time spent in counselling and/or direct pt care on unit). Coding Level of Care Code Acute Automation Controls Engineer for Farhadg Fwd Diagnoses ATN (acute tubular necrosis) N17.0
[2021-05-08] MEDS: magnesium sulfate premix 4 GM/100 ML PREMIX IV (07:11)
[2021-05-08 07:41] LABS: Glucose Point of Care 107 mg/dL (70-110)
[2021-05-08] MEDS: fenofibrate 145 mg Tablet PO (09:08)
[2021-05-08] MEDS: sennosides-docusate Tablet 2 TAB PO (09:09)
[2021-05-08] MEDS: lidocaine 2% INJ 20 mL INJECTION (09:10)
[2021-05-08] MEDS: metoprolol tartrate 25 mg Tablet PO ×2 (09:11→21:58)
[2021-05-08] MEDS: calcium carbonate 500 mg Chew Tablet 1000 MG PO ×3 (09:26→21:57)
[2021-05-08 11:01] LABS: Apprearance, Bronch Wash Cloudy (CLEAR); Color, Bronc Wash Slight Pink
[2021-05-08 11:03] LABS: PATH Referral Yes
--- NOTE | 2021-05-08 11:04 | P.PN_ITS ---
Subjective Subjective: -Patient seen at bedside -Currently requiring 60% FiO2, sedated with fentanyl 100 and Precedex -Continues to have low-grade fevers-underwent bronchoscopy today mild mucosal erythema noted on left lower lobe and BAL samples sent for Gram stain cultures, fungal culture, PCP pneumonia sent -Patient is currently getting hemodialysis -Plan is to continue hemodialysis until Tuesday and remove temporary catheter on Tuesday-so far blood cultures have been negative-she is requiring Levophed 6 MCG while on hemodialysis -Discussed with Dr. Rodrigez for potential permacath placement on Tuesday05/11/2021 - Medications: Reviewed: Yes Medication Review Details: Current Medications Acetaminophen (Acetaminophen 325 Mg Tablet) 650 mg PO Q6H PRN PRN Reason: Mild/Mod Pain Or Temp >/= 101 Last Admin: 04/30/21 11:37 Dose: 650 mg Documented by: Albuterol/Ipratropium (Ipratropium-Albuterol 3 Ml Neb) 3 ml INHALATION Q4H.RESPIRATORY ANNIE Last Admin: 05/08/21 03:25 Dose: 3 ml Documented by: Calcium Carbonate (Calcium Carbonate 500 Mg Chew Tablet) 1,000 mg PO TID ANNIE Last Admin: 05/07/21 21:07 Dose: 1,000 mg Documented by: Dextrose (Dextrose 50% Syringe 50 Ml) 25 ml IVP ONCE PRN; Protocol PRN Reason: hypoglycemia protocol Last Admin: 04/20/21 00:25 Dose: 25 ml Documented by: Dextrose (Dextrose 50% Syringe 50 Ml) 50 ml IVP PRN PRN; Protocol PRN Reason: hypoglycemia protocol Last Admin: 04/19/21 20:35 Dose: 50 ml Documented by: Dextrose (Dextrose 50% Syringe 50 Ml) 25 ml IVP ONCE PRN; Protocol PRN Reason: hypoglycemia protocol Dextrose (Dextrose 50% Syringe 50 Ml) 50 ml IVP PRN PRN; Protocol PRN Reason: hypoglycemia protocol Epoetin [place]ubham (Epoetin [place] 1000 Unit/0.05 Ml (Esrd)) 6,000 unit SUBCUT EVERY OTHER DAY ANNIE Last Admin: 05/06/21 17:06 Dose: 6,000 unit Documented by: Ergocalciferol (Ergocalciferol (Vitamin D2) 50,000 Unit Capsule) 50,000 unit PO Q7D [facility] Last Admin: 05/05/21 09:00 Dose: 50,000 unit Documented by: Famotidine (Famotidine 20 Mg/2 Ml Inj) 20 mg IVP Q12H ANNIE Last Admin: 05/08/21 01:26 Dose: 20 mg Documented by: Fenofibrate (Fenofibrate 145 Mg Tablet) 145 mg PO DAILY ANNIE Last Admin: 05/07/21 09:29 Dose: 145 mg Documented by: Glucagon (Glucagon 1 Mg/Ml Inj 1 Ml) 1 mg IM ONCE PRN; Protocol PRN Reason: Adult Acute Hypoglycemia Prot. Heparin Sodium (Porcine) (Heparin 5,000 Unit/Ml Inj 1 Ml) 0 unit IV PRN PRN; Protocol PRN Reason: Heparin weight-base protocol Last Admin: 05/06/21 15:56 Dose: 3,500 unit Documented by: Dextrose (D5w) 500 mls @ 100 mls/hr IV ONCE PRN; Protocol PRN Reason: Adult Acute Hypoglycemia Prot Heparin Sodium/Sodium Chloride (Heparin Drip) 25,000 unit in 500 mls @ 0 mls/hr IV .Q0M ANNIE; Protocol Last Titration: 05/07/21 18:35 Dose: Infused Documented by: Imipenem/Cilastatin Sodium 250 (mg/ Sodium Chloride) 100 mls @ 200 mls/hr IV Q12H ANNIE; Protocol Last Infusion: 05/08/21 05:25 Dose: Infused Documented by: Furosemide 100 mg/ Sodium (Chloride) 50 mls @ 0 mls/hr IV .Q0M ANNIE; Protocol Last Titration: 05/06/21 11:00 Dose: 0 mg/hr, 0 mls/hr Documented by: Dexmedetomidine HCl 1,000 mcg/ (Sodium Chloride) 260 mls @ 0 mls/hr IV .Q0M ANNIE; Protocol Last Titration: 05/08/21 01:21 Dose: 0.5 mcg/kg/hr, 9.15 mls/hr Documented by: Fentanyl 2,500 mcg/ Sodium (Chloride) 250 mls @ 0 mls/hr IV .Q0M ANNIE; Protocol Last Admin: 05/07/21 12:45 Dose: 100 mcg/hr, 10 mls/hr Documented by: Midazolam HCl 100 mg/ Sodium (Chloride) 100 mls @ 0 mls/hr IV .Q0M ANNIE; Protocol Last Titration: 05/07/21 18:35 Dose: Infused Documented by: Norepinephrine Bitartrate 8 mg (/ Dextrose) 508 mls @ 0 mls/hr IV .Q0M [facility]; Protocol Last Titration: 05/08/21 00:59 Dose: 1 mcg/min, 3.81 mls/hr Documented by: Caspofungin 50 mg/ Sodium (Chloride) 250 mls @ 250 mls/hr IV Q24H [facility] Last Infusion: 05/07/21 20:24 Dose: Infused Documented by: Vancomycin HCl 750 mg/ Sodium (Chloride) 250 mls @ 250 mls/hr IV DIALYSIS [facility] Last Infusion: 05/07/21 18:18 Dose: Infused Documented by: Albumin Human (Albumin) 12.5 gm in 50 mls @ 60 mls/hr IV PRN PRN PRN Reason: Hypotension and/or symptomatic Magnesium Sulfate (Magnesium Sulfate Premix) 4 gm in 100 mls @ 50 mls/hr IV ONCE ONE Stop: 05/08/21 08:30 Insulin Human Lispro (Insulin Lispro 100 Unit/1 Ml) 0 unit SUBCUT WM&BEDTIME SC H; Protocol Last Admin: 05/07/21 21:38 Dose: Not Given Documented by: Lactulose (Lactulose Oral Liq 20 Gm/30 Ml Udc) 10 gm PO DAILY PRN PRN Reason: CONSTIPATION Lanolin (Lanolin Oint 7 Gm) 1 applic TOPICAL PRN PRN PRN Reason: DRYNESS Lorazepam (Lorazepam 2 Mg/Ml Inj 1 Ml) 1 mg IVP Q8H PRN PRN Reason: ANXIETY Last Admin: 05/06/21 11:15 Dose: 1 mg Documented by: Metoprolol Tartrate (Metoprolol Tartrate 25 Mg Tablet) 25 mg PO BID@0900,2100 [facility] Last Admin: 05/07/21 21:06 Dose: 25 mg Documented by: Naloxone HCl (Naloxone 0.4 Mg/Ml Sdv) 0.1 mg IVP Q2M PRN PRN Reason: OPIATERV Ondansetron HCl (Ondansetron 2 Mg/Ml Sdv 2 Ml) 4 mg IVP Q8H PRN PRN Reason: vomiting, or N/V if npo Last Admin: 05/06/21 11:14 Dose: 4 mg Documented by: Quetiapine Fumarate (Quetiapine 25 Mg Tablet) 25 mg PO BEDTIME [facility] Last Admin: 05/05/21 21:23 Dose: Not Given Documented by: Rocuronium [place] (Rocuronium 10 Mg/Ml Inj 5ml) 80 mg IVP Q1H PRN 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 Last Admin: 05/06/21 15:41 Dose: 80 mg Documented by: Senna/Docusate Sodium (Sennosides-Docusate Tablet) 2 tab PO DAILY ANNIE Last Admin: 05/07/21 09:29 Dose: 2 tab Documented by: Vitals/I&O/Wt Last Vital Signs Temp 99.9 F H 05/08/21 08:00 Pulse 110 H 05/08/21 08:32 Resp 25 H 05/08/21 10:31 BP 105/73 05/08/21 08:00 Pulse Ox 95 05/08/21 10:31 05/07/21 05/08/21 05/08/21 22:59 06:59 14:59 Intake Total 1257.776 / 1905.993 178.239 / 2084.232 149.657 / 149.657 Output Total 2850 / 2850 300 / 3150 Balance -1592.224 / -944.007 -121.761 / -1065.768 149.657 / 149.657 Weight last 48 hrs Weight 140 lb Weight 142 lb 8 oz Weight 134 lb 0.657 oz Physical Exam Narrative: PHYSICAL EXAM: General: lying in bed, sedated and intubated. HEENT:NCAT, PERRLA, EOMI Neck: Supple Lungs: Improved breath sounds with less crackles on bilateral upper zones Heart: s1/s2, RRR Abd: soft, NT, ND, BS + Normoactive Extremities: No edema HOSPITAL ATTENDANT: sedated and limited HOSPITAL ATTENDANT exam possible. SKIN: no rash LDA: # HD Cath : Right internal jugular 04/20/2021 #CVC: Left IJ 05/06/2021 Urinary Catheter Management: Carroll: Cath Placed During This Visit: yes, but has since been removed by the nurse Reason for Continuing Indwelling Catheter: Accurate Measurement of Urinary Output in Critically Ill Patients Urinary Catheter Date of Insertion: 05/04/21 Urinary Catheter Time of Insertion: 14:00 Date Urinary Catheter Removed: 04/28/21 Time Urinary Catheter Discontinued: 10:30 Data : 05/08/21 02:30 05/08/21 02:30 Other Labs: Radiology Impressions Abdomen Ultrasound 04/19/21 02:25 IMPRESSION: 1. Cholelithiasis. Chest CT 04/19/21 02:25 IMPRESSION: 1. Nonspecific gallbladder distention. No calcified stones. 2. Mild retroperitoneal stranding about the pancreas, correlate with pancreatic enzymes. 3. Bilateral pulmonary infiltrates which may be seen with atypical pneumonia. Gallbladder Ultrasound 04/25/21 07:53 IMPRESSION: 1. Slightly hyperechoic liver, which can be seen with fatty infiltration or hepatocellular disease. 2. Nonspecific hepatic hypoechoic lesion adjacent to the gallbladder, which may represent fat sparing. Further evaluation with contrast enhanced abdomen MRI should be considered in the adequate clinical setting. 3. Cholelithiasis without evidence of cholecystitis. 4. Right pleural effusion. Head CT 04/25/21 14:00 IMPRESSION: 1. No acute intracranial abnormality. 2. Irax-tn-ypeuytbi sinusitis. 3. Bilateral mastoiditis and right otitis media. Abdomen/Pelvis CT 04/25/21 14:08 IMPRESSION: 1. Bibasilar opacities may be aspiration related, ARDS or pneumonia. 2. Possible contrast nephropathy, correlate clinically. 3. Trace ascites and mild to moderate anasarca. 4. Mild residual pancreatitis. KUB X-Ray 04/26/21 14:33 IMPRESSION: No acute findings. Chest X-Ray 05/06/21 18:24 IMPRESSION: 1. Endotracheal tube tip in place 15 mm above the tracey. 2. Left central venous catheter seen with tip at the atrial caval junction. 3. Bilateral left greater than right airspace infiltrates. 4. Enteric tube tip extending below the diaphragm inferiorly off the field of view. Chest/Abdomen/Pelvis CT 05/07/21 16:58 IMPRESSION: Patchy bilateral airspace infiltrates. IMPRESSION: 1. Prominent fluid in the small bowel without dilation may reflect an enteritis in the appropriate clinical setting. 2. Small amount of nonspecific fluid in the pelvis. 3. Subcutaneous edema about the pelvis and abdomen, nonspecific. Laboratory Results WBC 6.3 10^3/uL (4.0-10.0) 05/08/21 02:30 Corrected WBC 8.5 10^3/cmm (4.8-10.8) 04/23/21 18:20 RBC 2.44 10^6/uL (4.1-5.3) L 05/08/21 02:30 Hgb 7.5 g/dL (11.5-15.3) L 05/08/21 02:30 Hct 25.6 % (37.0-47.0) L 05/08/21 02:30 MCV 104.9 fl (81-99) H 05/08/21 02:30 MCH 30.7 pg (28.0-34.0) 05/08/21 02:30 MCHC 29.3 g/dL (30.0-36.0) L 05/08/21 02:30 RDW 17.6 % (12.1-15.1) H 05/08/21 02:30 Plt Count 256 10^3/cmm (130-400) 05/08/21 02:30 MPV 10.9 fL (7.4-10.4) H 05/08/21 02:30 Neut % (Auto) 56.2 % 05/08/21 02:30 Lymph % (Auto) 28.5 % 05/08/21 02:30 [place] % (Auto) 7.2 % 05/08/21 02:30 Eos % (Auto) 5.7 % 05/08/21 02:30 Baso % (Auto) 1.1 % 05/08/21 02:30 Neut # (Auto) 3.54 10^3/uL (1.8-7.7) 05/08/21 02:30 Lymph # (Auto) 1.8 10^3/uL (0.8-4.8) 05/08/21 02:30 [place] # (Auto) 0.5 10^3/uL (0.2-0.9) 05/08/21 02:30 Eos # (Auto) 0.4 10^3/uL (0.0-0.8) 05/08/21 02:30 Baso # (Auto) 0.1 10^3/uL (0.0-0.1) 05/08/21 02:30 Nucleated RBC % (auto) 0.6 % 05/08/21 02:30 Total Counted 100 (0-100) 04/29/21 07:50 Atypical Lymphs % 5.0 % (0-5) 04/29/21 07:50 Absolute Neutrophils 7.6 10^3/cmm (1.4-6.5) H 04/29/21 07:50 Segmented Neutrophils 51 % 04/29/21 07:50 Abs Segm Neuts (Man) 7.1 10/cmm (1.6-7.1) 04/29/21 07:50 Band Neutrophils 3.0 % 04/29/21 07:50 Abs Band Neuts (Man) 0.4 10^3/cmm (0.0-1.2) 04/29/21 07:50 Absolute Lymphocytes 5.2 10^3/cmm (1.2-3.4) H 04/29/21 07:50 Lymphocytes (Manual) 32 % 04/29/21 07:50 Monocytes (Manual) 0.0 % 04/29/21 07:50 Absolute Monocytes 0.0 10^3/cmm (0.1-0.6) L 04/29/21 07:50 Eosinophils (Manual) 2 % 04/29/21 07:50 Absolute Eosinophils 0.2 10^3/cmm (0.0-0.7) 04/29/21 07:50 Basophils (Manual) 0.0 % 04/29/21 07:50 Absolute Basophils 0.0 10^3/cmm (0.0-0.2) 04/29/21 07:50 Metamyelocytes 5.0 % 04/29/21 07:50 Myelocytes 2.0 % 04/29/21 07:50 Nucleated RBCs 3.0 /100WBC (0-1) H 04/29/21 07:50 Nucleated RBCs # 0.0 /100WBC 05/08/21 02:30 Platelet Estimate Normal (Normal) 04/29/21 07:50 Hypochromasia 2+ H 04/23/21 18:20 Basophilic Stippling Trace 04/21/21 Unknown Anisocytosis Trace 04/29/21 07:50 PT 16.40 SECONDS (12.1-14.9) H 04/19/21 03:00 INR 1.28 (0.8-1.2) H 04/19/21 03:00 APTT 99.5 SECONDS (23.9-36.7) H D 05/07/21 15:35 Fibrinogen 310 mg/dL (174-498) 04/19/21 03:00 Fibrin Degrad Products Pos, 10-40 ug/mL (NEG) H 04/19/21 03:00 D-Dimer 6.68 ug/mIFEU (0-0.59) H 04/21/21 03:50 Specimen Type Arterial 05/07/21 03:42 Sample Site Brachial, right 05/07/21 03:42 ABG pH 7.39 (7.35-7.45) 05/07/21 03:42 ABG pCO2 39.1 mmHg (35-45) 05/07/21 03:42 ABG pO2 55.2 mmHg (80.0-100.0) L 05/07/21 03:42 ABG HCO3 23.8 mmol/L (22-26) 05/07/21 03:42 ABG O2 Saturation 95.9 05/06/21 13:12 ABG Base Excess -0.9 mmol/L (-2.0-2.0) 05/07/21 03:42 Dennis Test N/a 05/07/21 03:42 A-a O2 Gradient 36.9 mmHg (5-10) H 05/06/21 13:12 Hematocrit 31.8 % (37-47) L 05/07/21 03:42 Hgb O2 Saturation 93.7 % (95-100) L 05/06/21 13:12 Carboxyhemoglobin 1.1 %THgb (0.4-20.1) 05/06/21 13:12 Methemoglobin 1.1 % (0.4-1.5) 05/06/21 13:12 Total Hemoglobin 9.6 g/dL (12-16) L 05/06/21 13:12 Sodium 145.0 mmol/L (131-143) H 05/06/21 13:12 Potassium 3.5 mmol/L (3.5-5.0) 05/06/21 13:12 Glucose 130.0 mg/dL (70-115) H 05/06/21 13:12 Ionized Calcium 1.3 mmol/L (1.1-1.4) 05/06/21 13:12 Respiration Rate 20.0 % 04/23/21 05:25 O2 Delivery Device Vent 05/07/21 03:42 Mechanical Rate 20.0 04/26/21 04:00 FiO2 45.0 % 05/07/21 03:42 Tidal Volume 0.30 05/07/21 03:42 PEEP 6.0 cmH20 05/07/21 03:42 Internal Security Manager ID Hinja 05/07/21 03:42 Sodium 141 mmol/L (136-145) 05/08/21 02:30 Potassium 3.8 mmol/L (3.5-5.1) 05/08/21 02:30 Chloride 104 mmol/L (98-107) 05/08/21 02:30 Carbon Dioxide 20 mmol/L (22-29) L 05/08/21 02:30 Anion Gap 20.8 (5-19) H 05/08/21 02:30 BUN 37 mg/dL (6-20) H 05/08/21 02:30 Creatinine 4.0 mg/dL (0.5-0.9) H 05/08/21 02:30 GFR Calculation 12.5 mL/min (90-130) L 05/08/21 02:30 Glucose 101 mg/dL (65-115) 05/08/21 02:30 POC Glucose 110 mg/dL (70-110) 05/08/21 11:12 Estimat Average Glucose 134 04/18/21 22:48 Hemoglobin A1c 6.3 % (4.0-6.0) H 04/18/21 22:48 Calculated Osmolality 301 mOsm/kg (285-295) H 05/08/21 02:30 Lactic Acid 5.1 mmol/L (0.5-2.2) H* 04/20/21 03:20 Lactic Acid (Sepsis) 4.7 mmol/L (0.5-2.2) H* 04/20/21 06:47 Lactate 0.9 mmol/L (0.5-2.2) 05/06/21 07:20 Uric Acid 12.0 mg/dL (2.4-5.7) H 04/20/21 09:20 Calcium 8.7 mg/dL (8.5-10.5) 05/08/21 02:30 Phosphorus 5.6 mg/dL (2.5-4.5) H 05/08/21 02:30 Magnesium 1.5 mg/dL (1.7-2.3) L 05/08/21 02:30 Iron 37 ug/dL (37-145) 04/23/21 06:20 TIBC 157 mcg/dl 04/23/21 06:20 % Saturation 23.5 % (20-50) 04/23/21 06:20 Unsat Iron Binding 120 ug/dL (112-347) 04/23/21 06:20 Ferritin 481 ng/mL (15-150) H 04/22/21 00:32 Total Bilirubin 0.5 mg/dL (0.15-1.2) 05/08/21 02:30 GGT 108 U/L (5-36) H 04/19/21 03:00 AST 16 U/L (0-32) 05/08/21 02:30 ALT < 5 U/L (0-33) 05/08/21 02:30 Alkaline Phosphatase 180 IU/L (35-105) H 05/08/21 02:30 Lactate Dehydrogenase 491 U/L (135-214) H 04/30/21 03:58 Creatine Kinase 79 U/L (26-192) 04/19/21 03:00 Troponin T Baseline 31 ng/L (0-10) H 04/20/21 16:45 Troponin T 120 Minute 31.12 ng/L (0-10) H 04/20/21 19:44 Delta Troponin T 0.12 ABS# (0-10) 04/20/21 19:44 Troponin T Hi Sens 6Hr 27.06 ng/L (0-10) H 04/21/21 03:50 Troponin T Hi Sens 6Hr Delta -3.94 ng/L (0-12) L 04/21/21 03:50 C-Reactive Protein 100.4 mg/L (0.0-4.9) H 04/26/21 05:45 Total Protein 5.6 g/dL (6.6-8.7) L 05/08/21 02:30 Albumin 2.6 g/dL (3.5-5.2) L 05/08/21 02:30 Globulin 3.0 g/dL (1.3-4.6) 05/08/21 02:30 Triglycerides 395 mg/dL (0-150) H 05/08/21 02:30 Cholesterol 322 mg/dL (0-200) H 04/19/21 03:00 LDL Cholesterol Direct 82 mg/dL (0-100) 04/28/21 09:38 LDL Cholesterol, Calc Not Reportable 04/19/21 03:00 HDL Cholesterol 12 mg/dL (60-100) L 04/19/21 03:00 LDL/HDL Ratio Not Reportable 04/19/21 03:00 Cholesterol/HDL Ratio 26.83 mg/dL (0.0-4.40) H 04/19/21 03:00 Lipase 20 U/L (13-60) 05/06/21 07:25 25-OH Vitamin D Total 7 ng/mL (30-100) L 04/21/21 03:50 1,25 Dihydroxy Vit D2 <8 pg/mL 04/20/21 03:20 1,25 Dihydroxy Vit D3 <8 pg/mL 04/20/21 03:20 Procalcitonin 0.43 ng/mL (0-0.5) 04/30/21 03:58 TSH 1.02 uIU/mL (0.27-4.20) 04/19/21 03:00 HCG, Qual Negative (Negative) 04/18/21 22:48 PTH Intact 274.7 pg/mL (15-65) H 04/21/21 03:50 Calcium (PTH Intact) 6.7 mg/dL (8.5-10.5) L 04/21/21 03:50 Urine Color Yellow (Yellow) 05/05/21 08:00 Urine Appearance Clear (CLEAR) 05/05/21 08:00 Urine pH 8 (5-7) H 05/05/21 08:00 Ur Specific [place] 1.005 (1.005-1.030) 05/05/21 08:00 Urine Protein Neg (Negative) 05/05/21 08:00 Urine Glucose (UA) Norm (Normal) 05/05/21 08:00 Urine Ketones Negative (Negative) 05/05/21 08:00 Urine Blood 2+ (Negative) H 05/05/21 08:00 Urine Nitrate Negative (Negative) 05/05/21 08:00 Urine Bilirubin Neg (Negative) 05/05/21 08:00 Prot Sulfosalicylic Acd Negative (Negative) 05/05/21 08:00 Urine Urobilinogen Norm mg/dL (Negative) 05/05/21 08:00 Ur Leukocyte Esterase Negative (Negative) 05/05/21 08:00 Urine RBC 0-4 /hpf (0-2) H 05/05/21 08:00 Urine WBC 10-15 /hpf (0-5) H 05/05/21 08:00 Ur Eosinophil Smear 0 (0-0) 04/19/21 05:35 Ur Squamous Epith Cells 0-4 /hpf (0-5) H 05/05/21 08:00 Amorphous Sediment Not Reportable 05/05/21 08:00 Urine Bacteria Trace /hpf (NONE) 05/05/21 08:00 Urine Eosinophils No eosinophils seen 04/19/21 05:35 Ur Random Creatinine 128 mg/dL (20-275) 04/19/21 05:35 Ur Random Albumin 46 % 04/19/21 05:35 U Random Total Protein 727 mg/dL (5-24) H 04/19/21 05:35 Ur Random Sodium 57 mmol/L 04/19/21 05:35 Ur Random Potassium 27 mmol/L 04/19/21 05:35 Ur Random Chloride 50 mmol/L 04/19/21 05:35 Urine Creatinine 139 mg/dL (28-217) 04/19/21 05:35 Protein/Creatinin Ratio 5680 mg/g creat (21-161) H 04/19/21 05:35 Protein/Creat Ratio 24h 5.680 (0.021-0.161) H 04/19/21 05:35 U Random r-1-Elzblndw % 4 % 04/19/21 05:35 U Random a-2-Jdjrkfzi % 12 % 04/19/21 05:35 U Random Beta Globulin 21 % 04/19/21 05:35 U Random Gamma Glob 18 % 04/19/21 05:35 U Abnormal Prot Band 1 Not Reportable 04/19/21 05:35 U Abnormal Prot Band 2 Not Reportable 04/19/21 05:35 U Abnormal Prot Band 3 Not Reportable 04/19/21 05:35 Urine PEP Interpret See note 04/19/21 05:35 Bronch Specimen Source Left lower lobe 05/08/21 08:55 Bronchial Fluid Color Slight pink 05/08/21 08:55 Bronchial Fluid Appearance Cloudy (CLEAR) 05/08/21 08:55 Bronchial Fluid WBC 808 /uL 05/08/21 08:55 Bronchial Fluid RBC 3 10^3/uL 05/08/21 08:55 Bronchial Diff Comment Yes 05/08/21 08:55 Vancomycin Trough Cancelled 05/07/21 03:30 Random Vancomycin 30.4 ug/mL (20.0-40.0) 05/08/21 02:30 Salicylates < 0.3 mg/dL (3-10) L 04/19/21 03:00 Acetaminophen < 5.0 ug/mL (10-30) L 04/19/21 03:00 Ethylene Glycol <10.0 mg/L () 04/19/21 03:00 Volat Analys Perform On Whole blood 04/19/21 03:00 Ethyl Alcohol < 10 mg/dL (0-10) 04/19/21 03:00 Urine Ethyl Alcohol Cancelled 04/19/21 05:35 Methyl Alcohol Level None detected mg/dL 04/19/21 03:00 Serum Ketones Negative (Negative) 04/29/21 07:50 Coronavirus 229E (PCR) Not detected (NOT DETECT) 04/19/21 05:35 Hepatitis A IgM Ab Non-reactive (Nonreactive) 04/19/21 03:00 Hep Bs Antigen Non-reactive (Nonreactive) 04/20/21 03:20 Hep Bs Antibody 3.5 (11.5-1000) L 04/20/21 03:20 Hep B Core IgM Ab Non-reactive (Nonreactive) 04/19/21 03:00 Hepatitis C Antibody Non-reactive (Nonreactive) 04/20/21 03:20 HIV 1&2 Ab & HIV 1 Ag Non-reactive (Non-Reactiv) 04/19/21 03:00 HIV 1&2 Antibody Non-reactive (Non-Reactiv) 04/19/21 03:00 Influenza Type A Ag Negative (Negative) 04/19/21 05:35 Influenza Type B Ag Negative (Negative) 04/19/21 05:35 SARS-CoV-2 (PCR) Detected (NOT DETECT) A 04/19/21 05:35 SARS-CoV-2 Ag (Rapid) Negative (Negative) 04/18/21 21:49 Misc Test Reference See comment 04/19/21 05:35 Blood Type O Positive 04/23/21 20:40 Rho(D) Type Positive 04/23/21 20:40 Antibody Screen Negative 04/23/21 20:40 Crossmatch See Detail 04/23/21 20:40 Micro: Microbiology 05/05/21 08:00 Urine Culture - Final Urine,Clean Catch 05/07/21 18:44 Blood Culture - Preliminary Blood SPECIMEN COLLECTED 05/06/21 14:00 Gram Stain - Final Sputum - Endotracheal Tube Aspirate A&P Assessment and plan (1) Acute respiratory distress syndrome (ARDS) due to 2019 novel coronavirus: Status: Acute (2) COVID: Status: Acute (3) Increased anion gap metabolic acidosis: Status: Acute (4) Acute encephalopathy: Status: Acute (5) Acute pancreatitis: Status: Acute (6) Mild mental handicap: Status: Acute (7) GODFREY (generalized anxiety disorder): Status: Acute (8) Essential hypertension: Status: Acute (9) Hypertriglyceridemia: Status: Acute (10) Aspiration pneumonia: Status: Acute Plan # Acute hypoxic respiratory failure in patient with COVID-19 pneumonia and fluid overload secondary to TONY -possible ARDS and patient with COVID-19 PCR positive/pancreatitis; subsegmental PE on CT #Subsegmental PE-on heparin drip #TONY due to hypovolemia-ischemic ATN/MAMI/Covid TONY-currently on HD #Hypovolemic shock secondary to pancreatitis-currently requiring pressors only during hemodialysis #Pancreatitis secondary to hypertriglyceridemia-resolved #Generalized anxiety disorder #Persistent low-grade fevers -Intubated on 04/20/2021 night after an episode of vomiting-extubated 05/01/2021- did well on room air until 05/04/2021, unable to tolerate hemodialysis due to hypotension and tachypnea-with increasing FiO2 requirements she got reintubated 05/06/2021 -Currently on CMV/18/7/300/60% PIP 33-ABG 7.3 9/39/55/23 on CMV 45%/300/6 -On fentanyl and Precedex-recommended to taper off fentanyl to 25 and start Prec edex -We will resume Seroquel 25 mg p.o. at bedtime -Plan is to continue to do hemodialysis and continue awakening trial -Ketones negative, triglycerides 395 -hold off propofol for now -CT head did not show any acute intracranial abnormality/there is mild to moderate sinusitis with bilateral mastoiditis and right otitis media -Completed remdesivir and currently on dexamethasone; received Zosyn for possible aspiration pneumonia for 5 days and later changed to imipenem until 05/03/2021 and started on Augmentin -patient continues to spike low-grade fevers and and due to worsening FiO2 requirements-sent for blood cultures, sputum cultures and restarted on vancomycin/imipenem/caspofungin as previous sputum culture is growing Coco parasiliosis -S/p bronchoscopy 05/08/2021 morning-clear secretions throughout with mild erythema noted in left lower lobe-BAL sent for Gram stain cultures, fungal cultures, PCP PCR-results pending -Continue monitoring respiratory status and saturations closely -CT angiogram subsegmental PE; bilateral venous Doppler negative for DVT-on heparin drip -Last CT abdomen pelvis 04/25/2021: Trace ascites with mild residual pancreatitis - Continue tube feeding -monitor FSBS closely and adjust IV insulin accordingly -Patient making some amount of urine, but still dialysis dependent for fluid removal-May need to change temporary catheter to permacath possibly on 05/11/2021 -Patient's family updated at bedside -Prognosis guarded Patient recovered from pancreatitis, hypoxic respiratory failure secondary to fluid overload while on hemodialysis-successfully extubated to room air and did well for 3 to 4 days-even started making make some urine-deteriorated respiratory hall for possible fluid overload-unfortunately did not tolerate hemodialysis and has to be reintubated. We will continue hemodialysis for now and evaluate daily for possible extubation. If cannot extubate by early next week-patient will get trach and PEG in long-term facility placement. Family understands the plan and verbalized agreement with the plan. Recommendations conveyed to hospitalist, RN, RT taking care of the patient Attestations Medical Necessity Statement*: Hypoxic respiratory failure secondary to ARDS due to COVID-19 pneumonia/pancreatitis-fluid overload due to TONY and patient with underlying Covid pneumonia and aspiration pneumonia-requiring mechanical intubation and hemodialysis Time Spent in Patient Care: Greater than 35 minutes (>than 50% of time spent in counselling and/or direct pt care on unit) . Critical Care Time: The high probability of a clinically significant, sudden or life threatening deterioration of the patient's [neurological, pulmonary, renal system(s) required my full and direct attention, intervention and personal management. The critical care time is as shown. 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
--- NOTE | 2021-05-08 11:04 | PM.ACPR ---
Procedure/Consent Time out: Time Out Performed: Yes Consent: Additional Consent Information: Consent for Procedure: Consent obtained from Mother , Risks & Benefits reviewed and Agrees to proceed with procedure Procedure Narrative: Procedure: Flexible bronchoscopy with airway inspection, airway clearance of secretions and obtaining bronchoalveolar lavage sample Pre-Operative Diagnosis: Suspect pneumonia Post-Operative Diagnosis: Same Indication: Persistent low grade fevers with chest x-ray showing worsening infiltrates in patient with ESRD Fluid overload, recent PE , and Covid 19 pneumonia Anesthesia: Currently on fentanyl 100 mcg/hr and precedex drip .-given additional fentanyl 25 mcg push Pre-procedure Evaluation: Patient was evaluated clinically and ancillary testing reviewed. The risk of having active MTB infection is very low in my clinical judgement. ASA: 4 Malampati score: unable to evaluate due to presence of endotracheal tube Consent: Consents were obtained from [facility] and placed in the chart Procedure Details: Time out was performed by the procedure team and nursing staff.? Vent support maintained on Fio2 100. The bronchoscope was introduced through the ETT.? A bronchoscopic airway exam was performed to evaluate the visible tracheobronchial tree to the segmental level. Summary of Significant Findings: -Bronchoscope passed through ET tube, 6 ml 1% lidocaine instilled 2 mm each into the trachea, both right and left main bronchus.? Distal trachea and main tracey visualized which were sharp and normal.? Then the scope was passed through the right bronchial tree was assessed to include the right mainstem bronchus, RBI, and RUL/RML/RLL bronchi to the segmental and subsegmental levels.? No active bleeding noted.? Mucosa appeared normal.? Some clear secretions noted which were suctioned right away. Then the scope was left bronchial tree was assessed to include the left mainstem bronchus, SYED, Lingula, and LLL bronchi to the segmental and subsegmental level. No active bleeding noted.? Mucosa appeared slightly erythematous.? Some clear secretions noted which were suctioned right away. BAL obtained from left lower lobe the bronchoscope was then removed and the procedure terminated. Estimated Blood Loss: None ? Specimens:? Bronchoalveolar lavage was taken from left lower lobe and sent for Gram stain and bacterial cultures, fungal cultures, PCP PCR ? Complications:None; patient tolerated the procedure well. ? Disposition: Patient remains critically ill, intubated and stays in ICU Nito Costello MD Pulmonary critical Care Medicine [facility] Acute Procedures Epistaxis Control: Time out performed: Yes
[2021-05-08 11:29] LABS: Glucose Point of Care 110 mg/dL (70-110)
--- NOTE | 2021-05-08 11:43 | PC.SOCIAL ---
IMM not Updated Pt intubated at this time. Pt is not expected to d/c within the next 24-48hrs.
[2021-05-08] MEDS: epoetin alfa 1000 Unit/0.05 mL (ESRD) 6000 UNIT SUBCUT (12:15)
[2021-05-08 12:24] LABS: Total Cells Counted Bronch 200
--- NOTE | 2021-05-08 12:55 | PC.OT ---
Hold OT note due to patient on ventilation.
--- NOTE | 2021-05-08 13:06 | XR_ITS ---
WS: [id number] Portable AP upright chest, 05/08/2021 Clinical Data: pneumonia Comparison: Portable chest, 05/06/2021. Findings: The patchy bilateral pulmonary opacities have not changed. The endotracheal tube, left inte rnal jugular venous catheter and nasogastric tube remain in the same position. There is a right inter nal jugular venous catheter ending in the superior vena cava. Monitor leads are on the chest wall. XR/XR chest 1V portable [id number] Impression: 1. No change in patchy bilateral pulmonary opacities consistent with pneumonia. 2. No change in position of multiple tubes. 3. Right internal jugular venous catheter.
[2021-05-08 13:28] LABS: Vancomycin Random 15.4 ug/mL (20.0-40.0)
--- NOTE | 2021-05-08 14:56 | P.PN_ITS ---
Subjective Subjective: Hospital course, labs appreciated. Today morning on examination patient seen while getting dialysis. Patient is intubated. Family at bedside. Ventilator settings of FiO2 45%, tidal volume 300, PEEP of 6. Patient saturating more than 94%. Currently patient is on Versed, Precedex, fentanyl and Precedex along with heparin drip Vitals/I&O/Wt Last Vital Signs Temp 99.0 F 05/08/21 14:10 Pulse 102 H 05/08/21 14:10 Resp 26 H 05/08/21 14:10 BP 130/88 05/08/21 14:10 Pulse Ox 98 05/08/21 13:17 05/07/21 05/08/21 05/08/21 22:59 06:59 14:59 Intake Total 1257.776 / 2205.993 178.239 / 2384.232 1004.806 / 1004.806 Output Total 2850 / 5650 300 / 5950 4300 / 4300 Balance -1592.224 / -3444.007 -121.761 / -3565.768 -3295.194 / -3295.194 Weight last 48 hrs Weight 58.3 kg Weight 63.503 kg Weight 63 kg Weight 64.637 kg Weight 60.8 kg Physical Exam Narrative: General: No acute distress, awake, on sedation with fentanyl, Versed and Precedex. Currently getting dialysis HEENT: PERRLA, pupils bilaterally equal and reactive Chest: Normal vesicular breath sounds, no added sounds, equal good air entry bilaterally CVS: S1-S2 regular, no murmurs, no tachycardia, no gallops, no rubs Abdomen: Soft, nontender, no organomegaly, bowel sounds present Neuro: Intubated, mildly sedated, frowning Urinary Catheter Management: Wynn: Cath Placed During This Visit: yes, but has since been removed by the nurse Reason for Continuing Indwelling Catheter: Accurate Measurement of Urinary Output in Critically Ill Patients Urinary Catheter Date of Insertion: 05/04/21 Urinary Catheter Time of Insertion: 14:00 Date Urinary Catheter Removed: 04/28/21 Time Urinary Catheter Discontinued: 10:30 Data : 05/08/21 02:30 05/08/21 02:30 Micro: Microbiology 05/06/21 14:00 Gram Stain - Final Sputum - Endotracheal Tube Aspirate Sputum Culture - Preliminary Yeast 05/08/21 08:55 Gram Stain - Final Lung Left Lower Lobe - #1 05/05/21 08:00 Urine Culture - Final Urine,Clean Catch 05/07/21 18:44 Blood Culture - Preliminary Blood SPECIMEN COLLECTED A&P Assessment and plan (1) Shock: Status: Acute (2) Acute respiratory failure requiring reintubation: Status: Acute (3) Acute respiratory distress syndrome (ARDS) due to 2019 novel coronavirus: Status: Acute (4) Pulmonary embolism: Status: Acute (5) Yeast detected: Status: Acute (6) Aspiration pneumonia: Status: Acute (7) ATN (acute tubular necrosis): Status: Acute (8) COVID: Status: Acute (9) Acute pancreatitis: Status: Acute (10) Hypertriglyceridemia: Status: Acute Plan Patient was admitted on 04/19 for severe metabolic acidosis, hypertriglyceridemia induced pancreatitis, COVID-19 related ARDS First intubation 04/21 after an episode of vomiting while on BiPAP, developed aspiration pneumonia. Eventually extubated on 05/01 Right IJ dialysis catheter placed 04/20, She did very well between 05/01 and 05/04, she was doing well on room air, wynn removed, antibiotic switched to Augmentin, started making urine, she was able to eat, bowel movements were regular no episodes of vomiting, fever susided Hypertriglyceridemia with pancreatitis improved with insulin gtt and avoiding propofol 05/05 she developed pulmonary edema again, she got worse overnight got transferred to ICU and got intubated on 05/06 for worsening tachypnea Shock: Most likely hypovolemic. Less likely septic. Required minimal Levophed during dialysis. Start on albumin 25 g every 8 hourly for 1 day. Wean off Levophed keeping mean arterial pressure over 62. Monitor urine output and saturation. Acute respiratory failure requiring intubation: Multifactorial. Most likely secondary to COVID-19, pulmonary embolism along with possible aspiration pneumonia. Patient underwent bronchoscopy on 05/08. Culture sent. Will follow results. 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 For now continue with imipenem and vancomycin as per creatinine clearance. Continue with caspofungin. Repeat vancomycin random level postdialysis. Depending on the levels will dose vancomycin further. Vancomycin random level from nightly more than 30 today. Blood cultures so far from 05/05 and 05/07 -. We will continue to follow. We will follow up blood cultures and sputum culture from bronchial lavage and change the antimicrobials accordingly. Febrile episodes: Patient does have potential sources of infection as stated above. Also has pulmonary embolism. Cannot rule out central fevers. Does not show any typical signs of meningitis. Does have sacral ulcer stage I. Wynn catheter changed on 05/06. Shiley placed more than 2 weeks ago. We will plan to remove Shiley after dialysis on Tuesday with a plan for permacath versus temporary dialysis placement as per culture results on Tuesday. CT abdomen pelvis chest done on 05/07 results appreciated. For pulmonary embolism: Continue with heparin drip. For COVID-19. Patient is already finished treatment with remdesivir and dexamethasone. Continue weaning ventilator accordingly. DuoNebs every 6 hour, budesonide twice daily. ATN: Nephrology on board. Getting daily dialysis. Possible permacath placement on Tuesday. Plan for removing Shiley on Tuesday to give line holiday for 24 hours. Hypertriglyceridemia induced pancreatitis: Triglycerides finally improving. Continue with home dose of fenofibrate. Will avoid propofol. Start tube feed today Heparin drip would suffice DVT prophylaxis Full code Parents stay with her most of the time If unable to wean off ventilator this time possibility of tracheostomy and PEG t ube placement. Family is aware. Family is also aware that patient ends up getting tracheostomy it is quite possible patient would need transfer to LTAC for further rehabitation. Family is agreeable for now. Attestations Medical Necessity Statement*: Requires further hospitalization for management of hypovolemic shock, acute respiratory failure requiring ventilator support, ATN requiring hemodialysis Critical Care Time: The high probability of a clinically significant, sudden or life threatening deterioration of the patient's [cardiac, renal, ID, neurological system(s) required my full and direct attention, intervention and personal management. The critical care time is as shown. This time is in addition to time spent performing any reported procedures but includes the following: [x] Data and vital sign review and interpretation [x] Patient assessment, examination and intervention [x] Documentation [x] Medication orders and management Critical Care Time (min): 90 Coding Level of Care Code Acute Right Of Way Man for [facility] [place] Fwd Diagnoses Yeast detected B37.9 Acute respiratory failure requiring reintubation J96.00 Pulmonary embolism I26.99 Aspiration pneumonia J69.0 Acute respiratory distress syndrome (ARDS) due to 2019 novel coronavirus U07.1; J80 ATN (acute tubular necrosis) N17.0 COVID U07.1 Acute pancreatitis K85.90 Hypertriglyceridemia E78.1 Shock R57.9
[2021-05-08] MEDS: vancomycin 500 MG in sodium chloride 0.9% (100 ml) 100 ML 200 MG IV (15:15)
[2021-05-08 17:38] LABS: Glucose Point of Care 112 mg/dL (70-110)
--- NOTE | 2021-05-08 18:11 | PC.NURSE ---
Shift Note Frequent safety and comfort rounds continue. Orders and/or nursing care completed as indicated. Patient monitored for response to intervention and treatment(s). Education provided includes treatment plan, medications, oxygen and dialysis. Family verbalizes understanding. Pt able to follow commands and answer questions with nods of head and mouthing words. Remains with a low grade temp off and on, all other VSS. Levophed off at this time, fentanyl decreased to 50mcg and precedex at 0.9. Bilateral wrist restraints in place. Pt to receive dialysis tomorrow per MD. No other issues noted. Will continue to monitor.
[2021-05-08] MEDS: quetiapine 25 mg Tablet PO (21:58)
[2021-05-08 23:05] LABS: Glucose Point of Care 127 mg/dL (70-110)
[2021-05-09] VITALS (87 sets, daily range): BP systolic 82–138; BP diastolic 49–81; PULSE 66–113; RESP 18–33; TEMP 36.7–38.4; O2SAT 90–100
[2021-05-09] MEDS: ipratropium-albuterol 3 mL Neb INHALATION ×7 (00:40→23:21)
[2021-05-09] MEDS: famotidine 20 mg/2 mL INJ IVP ×2 (01:27→13:32)
[2021-05-09] MEDS: norepinephrine 8 MG in dextrose 5 % 500 ML 3.81 MG IV (01:28)
[2021-05-09 04:12] LABS: Glucose Point of Care 117 mg/dL (70-110)
[2021-05-09 05:05] LABS: Basophils % 0.7 %; Eosinophils # 0.3 10^3/uL (0.0-0.8); Eosinophils % 5.3 %; Hemoglobin 6.9 g/dL (11.5-15.3); Lymphocytes # 1.9 10^3/uL (0.8-4.8); Mean Corpuscular Hemoglobin 30.7 pg (28.0-34.0); Mean Corpuscular Volume 102.2 fl (81-99); Mean Platelet Volume 11.1 fL (7.4-10.4); Monocytes # 0.5 10^3/uL (0.2-0.9); Monocytes % 8.4 %; Neutrophils # 3.03 10^3/uL (1.8-7.7); Neutrophils % 51.9 %; Nucleated Red Blood Cells % 0.7 %; Platelet Count 221 10^3/cmm (130-400); Red Blood Count 2.25 10^6/uL (4.1-5.3); Red Cell Distribution Width 17.2 % (12.1-15.1); White Blood Count 5.8 10^3/uL (4.0-10.0)
[2021-05-09 05:26] LABS: Vancomycin Random 23.5 ug/mL (20.0-40.0)
[2021-05-09 05:31] LABS: Alanine Aminotransferase < 5 U/L (0-33); Albumin Level 3.4 g/dL (3.5-5.2); Alkaline Phosphatase 187 IU/L (35-105); Anion Gap 20.2 (5-19); Aspartate Amino Transferase 18 U/L (0-32); Blood Urea Nitrogen 17 mg/dL (6-20); Calcium 9.1 mg/dL (8.5-10.5); Carbon Dioxide 22 mmol/L (22-29); Chloride 98 mmol/L (98-107); Globulin 2.7 g/dL (1.3-4.6); Glomerular Filtration Rate 22.5 mL/min (90-130); Glucose 110 mg/dL (65-115); Magnesium 2.1 mg/dL (1.7-2.3); Osmolality Calculated 286 mOsm/kg (285-295); Phosphorus 2.9 mg/dL (2.5-4.5); Potassium 3.2 mmol/L (3.5-5.1); Sodium 137 mmol/L (136-145); Total Bilirubin 0.5 mg/dL (0.15-1.2); Total Protein 6.1 g/dL (6.6-8.7)
[2021-05-09] MEDS: calcium carbonate 500 mg Chew Tablet 1000 MG PO ×3 (08:15→21:21)
[2021-05-09] MEDS: metoprolol tartrate 25 mg Tablet PO ×2 (08:15→21:21)
[2021-05-09] MEDS: sennosides-docusate Tablet 2 TAB PO (08:15)
[2021-05-09] MEDS: fenofibrate 145 mg Tablet PO (08:15)
[2021-05-09 10:28] LABS: Glucose Point of Care 156 mg/dL (70-110)
[2021-05-09] MEDS: lactulose oral liq 20 gm/30 mL UDC 10 GM PO (10:59)
[2021-05-09] MEDS: magnesium hydroxide 30 mL UDC PO (10:59)
[2021-05-09] MEDS: insulin lispro 100 unit/1 mL SUBCUT (10:59)
--- NOTE | 2021-05-09 11:46 | PC.RESP ---
RT Shift Note Frequent safety and respiratory rounds continue. Orders completed as indicated. Patient monitored pre and post treatments throughout shift. Patient [Did.] tolerate treatments appropriately. Condition [.DidNotChange]. Patient and/or personal banking representative educated on respiratory treatment and medications. Patient and/or personal banking representative [unable to comprehend]. Will continue to monitor patient progress.
--- NOTE | 2021-05-09 14:05 | PM.PN ---
Subjective Subjective: Overnight patient's sedation was increased with fentanyl up to 150 because patient was overbreathing the vent secondary to anxiety. Has remained hemodynamically stable and afebrile. T-max in last 24 hours 99.7 Fahrenheit. No documented bowel movements. Patient underwent dialysis yesterday. Currently on fentanyl, Precedex and heparin drip. Continues to remain on lower Levophed of 1 Vitals/I&O/Wt Last Vital Signs Temp 98.4 F 05/09/21 11:53 Pulse 107 H 05/09/21 13:00 Resp 28 H 05/09/21 13:43 BP 102/59 05/09/21 13:00 Pulse Ox 96 05/09/21 13:43 05/08/21 05/09/21 05/09/21 22:59 06:59 14:59 Intake Total 997.685 / 2009.158 252.105 / 2261.263 167.792 / 167.792 Output Total 175 / 4475 200 / 4675 Balance 822.685 / -2465.842 52.105 / -2413.737 167.792 / 167.792 Weight last 48 hrs Weight 58.684 kg Weight 58.3 kg Weight 63.503 kg Physical Exam Narrative: General: No acute distress, awake, on sedation with fentanyl, and Precedex. Currently getting dialysis HEENT: PERRLA, pupils bilaterally equal and reactive Chest: Normal vesicular breath sounds, no added sounds, equal good air entry bilaterally CVS: S1-S2 regular, no murmurs, no tachycardia, no gallops, no rubs Abdomen: Soft, nontender, no organomegaly, bowel sounds present Neuro: Intubated, mildly sedated, frowning Urinary Catheter Management: Wynn: Cath Placed During This Visit: yes, but has since been removed by the nurse Reason for Continuing Indwelling Catheter: Accurate Measurement of Urinary Output in Critically Ill Patients Urinary Catheter Date of Insertion: 05/04/21 Urinary Catheter Time of Insertion: 14:00 Date Urinary Catheter Removed: 04/28/21 Time Urinary Catheter Discontinued: 10:30 Data : 05/09/21 04:17 05/09/21 04:17 Micro: Microbiology 05/08/21 08:55 Gram Stain - Final Lung Left Lower Lobe - #1 Bronchoalveolar Lavage Culture - Preliminary 05/07/21 22:15 Urine Culture - Preliminary Urine Catheterized Yeast 05/07/21 18:44 Blood Culture - Preliminary Blood NEGATIVE TO DATE 05/06/21 14:00 Gram Stain - Final Sputum - Endotracheal Tube Aspirate Sputum Culture - Preliminary Yeast 05/05/21 08:00 Urine Culture - Final Urine,Clean Catch A&P Assessment and plan (1) Shock: Status: Acute (2) Acute respiratory failure requiring reintubation: Status: Acute (3) Acute respiratory distress syndrome (ARDS) due to 2019 novel coronavirus: Status: Acute (4) Pulmonary embolism: Status: Acute (5) Yeast detected: Status: Acute (6) Aspiration pneumonia: Status: Acute (7) ATN (acute tubular necrosis): Status: Acute (8) COVID: Status: Acute (9) Acute pancreatitis: Status: Acute (10) Hypertriglyceridemia: Status: Acute Plan Patient was admitted on 04/19 for severe metabolic acidosis, hypertriglyceridemia induced pancreatitis, COVID-19 related ARDS First intubation 04/21 after an episode of vomiting while on BiPAP, developed aspiration pneumonia. Eventually extubated on 05/01 Right IJ dialysis catheter placed 04/20, She did very well between 05/01 and 05/04, she was doing well on room air, wynn removed, antibiotic switched to Augmentin, started making urine, she was able to eat, bowel movements were regular no episodes of vomiting, fever susided Hypertriglyceridemia with pancreatitis improved with insulin gtt and avoiding propofol 05/05 she developed pulmonary edema again, she got worse overnight got transferred to ICU and got intubated on 05/06 for worsening tachypnea Shock: Most likely hypovolemic. Less likely septic. Required minimal Levophed during dialysis. Wean off Levophed keeping mean arterial pressure over 62. Monitor urine output and saturation. Acute respiratory failure requiring intubation: Multifactorial. Most likely secondary to COVID-19, pulmonary embolism along with possible aspiration pneumonia. Patient underwent bronchoscopy on 05/08. Bronchial lavage cultures so far positive for yeast. 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 For now continue with imipenem and vancomycin as per creatinine clearance. Continue with caspofungin. Vancomycin random level 23 today. Continue with vancomycin 500 mg post dialysis. Continue to follow Vanco random levels every morning. Blood cultures so far from 05/05 and 05/07 negative. We will continue to follow. We will follow up blood cultures and sputum culture from bronchial lavage and change the antimicrobials accordingly. Febrile episodes: Patient does have potential sources of infection as stated above. Also has pulmonary embolism. Cannot rule out central fevers. Does not show any typical signs of meningitis. Does have sacral ulcer stage I. Wynn catheter changed on 05/06. Shiley placed more than 2 weeks ago. We will plan to remove Shiley after dialysis on Tuesday with a plan for permacath versus temporary dialysis placement as per culture results on Tuesday. CT abdomen pelvis chest done on 05/07 results appreciated. For pulmonary embolism: Continue with heparin drip. For COVID-19. Patient is already finished treatment with remdesivir and dexamethasone. Continue weaning ventilator accordingly. DuoNebs every 6 hour, budesonide twice daily. ATN: Nephrology on board. Getting daily dialysis. Possible permacath placement on Tuesday. Plan for removing Shiley on Tuesday to give line holiday for 24 hours. Anemia: No active signs of bleeding. Can be multifactorial. Check reticulocyte count, iron panel, vitamin B12, folate level, haptoglobin. Monitor blood transfusion. Hypertriglyceridemia induced pancreatitis: Triglycerides finally improving. Continue with home dose of fenofibrate. Will avoid propofol. Start tube feed today Heparin drip would suffice DVT prophylaxis Full code Parents stay with her most of the time If unable to wean off ventilator this time possibility of tracheostomy and PEG tube placement. Family is aware. Family is also aware that patient ends up getting tracheostomy it is quite possible patient would need transfer to LTAC for further rehabitation. Family is agreeable for now. Plan for the day: Continue with tube feeds. Decrease sedation. Switch to SIMV/MMV mode. Monitor blood transfusion. Follow-up lab results. Plan of dialysis. Postdialysis vancomycin and imipenem. Plan of care discussed in detail with patient's family at bedside. Attestations Medical Necessity Statement*: Requires further hospitalization for management of hypoxia secondary COVID-19 pneumonia, pulmonary embolism, poor compliance, ATN requiring hemodialysis, febrile episodes in a patient with baseline cognitive impairment. Critical Care Time: The high probability of a clinically significant, sudden or life threatening deterioration of the patient's pulmonary, cardiac, renal, GI system(s) required my full and direct attention, intervention and personal management. The critical care time is as shown. This time is in addition to time spent performing any reported procedures but includes the following: [x] Data and vital sign review and interpretation [x] Patient assessment, examination and intervention [x] Documentation [x] Medication orders and management Critical Care Time (min): 90 Coding Level of Care Code Acute Epic Interface Analyst for [facility] Fwd Diagnoses Shock R57.9 Acute respiratory failure requiring reintubation J96.00 Acute respiratory distress syndrome (ARDS) due to 2019 novel coronavirus U07.1; J80 Pulmonary embolism I26.99 Yeast detected B37.9 Aspiration pneumonia J69.0 ATN (acute tubular necrosis) N17.0 COVID U07.1 Acute pancreatitis K85.90 Hypertriglyceridemia E78.1
[2021-05-09 14:15] LABS: Reticulocyte % 4.6 % (0.5-2.0)
[2021-05-09 14:48] LABS: Vitamin B12 150 pg/mL (232-1245)
[2021-05-09] MEDS: acetaminophen 325 mg Tablet 650 MG PO (15:40)
[2021-05-09 16:54] LABS: Folate Level 10.7 ng/mL (4.8-37.3)
[2021-05-09] MEDS: cyanocobalamin 1,000 mcg/mL SDV 1000 MCG IM (17:03)
--- NOTE | 2021-05-09 17:04 | P.PN_ITS ---
Subjective Subjective: I am seeing her in follow up for her renal failure. She is still intubated & on low dose pressor Medications: Reviewed: Yes Vitals/I&O/Wt Last Vital Signs Temp 98.4 F 05/09/21 11:53 Pulse 102 H 05/09/21 15:16 Resp 31 H 05/09/21 15:16 BP 102/59 05/09/21 13:00 Pulse Ox 96 05/09/21 15:16 05/09/21 05/09/21 05/09/21 06:59 14:59 22:59 Intake Total 252.105 / 2261.263 283.459 / 283.459 Output Total 200 / 4675 Balance 52.105 / -2413.737 283.459 / 283.459 Weight last 48 hrs Weight 58.684 kg Weight 58.3 kg Weight 63.503 kg Physical Exam Narrative: Pt intubated, not in distress Extremity: GENERAL: Yes edema Skin: RASHES: no rashes Urinary Catheter Management: Carroll: Cath Placed During This Visit: yes, but has since been removed by the nurse Reason for Continuing Indwelling Catheter: Accurate Measurement of Urinary Outpu t in Critically Ill Patients Urinary Catheter Date of Insertion: 05/04/21 Urinary Catheter Time of Insertion: 14:00 Date Urinary Catheter Removed: 04/28/21 Time Urinary Catheter Discontinued: 10:30 Data : 05/09/21 04:17 05/09/21 04:17 Micro: Microbiology 05/08/21 08:55 Gram Stain - Final Lung Left Lower Lobe - #1 Bronchoalveolar Lavage Culture - Preliminary 05/07/21 22:15 Urine Culture - Preliminary Urine Catheterized Yeast 05/07/21 18:44 Blood Culture - Preliminary Blood NEGATIVE TO DATE 05/06/21 14:00 Gram Stain - Final Sputum - Endotracheal Tube Aspirate Sputum Culture - Preliminary Yeast A&P Assessment and plan (1) ATN (acute tubular necrosis): Will do HD today for 3 hrs & try to remove 2 lit of fluid Status: Acute (2) Hypotension: Titrate pressor to keep MAP above 60 Status: Acute (3) Anemia: Transfuse blood to keep hb above 7.5 Status: Acute Attestations Medical Necessity Statement*: Renal failure Coding Level of Care Code Acute Ambulance Attendant for [facility] Diagnoses ATN (acute tubular necrosis) N17.0 Hypotension I95.9 Anemia D64.9
[2021-05-09 17:15] LABS: Glucose Point of Care 109 mg/dL (70-110)
[2021-05-09] MEDS: vancomycin 500 MG in sodium chloride 0.9% (100 ml) 100 ML 200 MG IV (18:26)
[2021-05-09] MEDS: dexmedeTOMIDine 0.9 % NaCL 400 MCG/100 ML PREMIX 21 MCG IV (19:23)
[2021-05-09 21:16] LABS: Glucose Point of Care 139 mg/dL (70-110)
[2021-05-09] MEDS: quetiapine 25 mg Tablet PO (21:21)
[2021-05-10] VITALS (64 sets, daily range): BP systolic 79–105; BP diastolic 44–82; PULSE 95–123; RESP 18–27; TEMP 37.4–39.3; O2SAT 90–99
[2021-05-10] MEDS: dexmedeTOMIDine 0.9 % NaCL 400 MCG/100 ML PREMIX 21 MCG IV ×5 (00:29→20:27)
[2021-05-10] MEDS: famotidine 20 mg/2 mL INJ IVP ×2 (01:30→13:47)
[2021-05-10] MEDS: ipratropium-albuterol 3 mL Neb INHALATION ×6 (03:15→23:21)
[2021-05-10 03:28] LABS: Basophils # 0.1 10^3/uL (0.0-0.1); Basophils % 1.2 %; Eosinophils # 0.4 10^3/uL (0.0-0.8); Eosinophils % 7.7 %; Hemoglobin 9.2 g/dL (11.5-15.3); Lymphocytes # 1.6 10^3/uL (0.8-4.8); Lymphocytes % 30.8 %; Mean Corpuscular HGB Conc 31.7 g/dL (30.0-36.0); Mean Corpuscular Hemoglobin 30.6 pg (28.0-34.0); Mean Corpuscular Volume 96.3 fl (81-99); Mean Platelet Volume 10.9 fL (7.4-10.4); Monocytes # 0.4 10^3/uL (0.2-0.9); Monocytes % 8.3 %; Neutrophils # 2.59 10^3/uL (1.8-7.7); Neutrophils % 49.9 %; Nucleated Red Blood Cells # 0.1 /100WBC; Nucleated Red Blood Cells % 1.2 %; Platelet Count 186 10^3/cmm (130-400); Red Blood Count 3.01 10^6/uL (4.1-5.3); Red Cell Distribution Width 18.3 % (12.1-15.1); White Blood Count 5.2 10^3/uL (4.0-10.0)
[2021-05-10 03:44] LABS: Alanine Aminotransferase 9 U/L (0-33); Albumin Level 3.3 g/dL (3.5-5.2); Alkaline Phosphatase 258 IU/L (35-105); Anion Gap 13.1 (5-19); Aspartate Amino Transferase 42 U/L (0-32); Blood Urea Nitrogen 16 mg/dL (6-20); Calcium 9.1 mg/dL (8.5-10.5); Carbon Dioxide 27 mmol/L (22-29); Chloride 104 mmol/L (98-107); Globulin 2.9 g/dL (1.3-4.6); Glomerular Filtration Rate 31.3 mL/min (90-130); Glucose 176 mg/dL (65-115); Magnesium 1.9 mg/dL (1.7-2.3); Osmolality Calculated 297 mOsm/kg (285-295); Phosphorus 1.2 mg/dL (2.5-4.5); Potassium 3.1 mmol/L (3.5-5.1); Sodium 141 mmol/L (136-145); Total Bilirubin 0.8 mg/dL (0.15-1.2); Total Protein 6.2 g/dL (6.6-8.7)
[2021-05-10 04:34] LABS: Glucose Point of Care 163 mg/dL (70-110)
[2021-05-10] MEDS: insulin lispro 100 unit/1 mL SUBCUT ×4 (04:36→20:28)
[2021-05-10 05:40] LABS: Vancomycin Trough 25.3 ug/mL (10-15)
[2021-05-10] MEDS: acetaminophen 325 mg Tablet 650 MG PO (07:37)
[2021-05-10] MEDS: magnesium hydroxide 30 mL UDC PO (08:53)
[2021-05-10] MEDS: lactulose oral liq 20 gm/30 mL UDC 10 GM PO (08:53)
[2021-05-10] MEDS: sennosides-docusate Tablet 2 TAB PO (08:53)
[2021-05-10] MEDS: calcium carbonate 500 mg Chew Tablet 1000 MG PO ×3 (08:53→20:28)
[2021-05-10] MEDS: fenofibrate 145 mg Tablet PO (08:53)
[2021-05-10] MEDS: cyanocobalamin 1,000 mcg/mL SDV 1000 MCG IM (08:54)
[2021-05-10] MEDS: acetaminophen 1,000 MG/100 ML PIGGYBACK 400 MG IV (09:21)
[2021-05-10 09:28] LABS: ABG PCO2 38.5 mmHg (35-45); ABG PH Result 7.47 (7.35-7.45); Alveolar-Arterial Oxygen Gradi 23.3 mmHg (5-10); Arterial Blood Gas Hematocrit 29.7 % (37-47); Base Excess ABG 4.4 mmol/L (-2.0-2.0); Blood Gas Operator Identificat GD; Blood Gas Sample Site Brachial, right; Blood Gas Sample Type Arterial; HCO3 ABG 28.3 mmol/L (22-26); HGB O2 Sat 90.7 % (95-100); Ionized Calcium Level - ABG 1.2 mmol/L (1.1-1.4); Methemoglobin 0.9 % (0.4-1.5); Oxygen Device VENT; Oxygen Saturation ABG 93.4; PO2 ABG 59.2 mmHg (80.0-100.0); Potassium Level - ABG 3.2 mmol/L (3.5-5.0); Total Hemoglobin 9.7 g/dL (12-16)
[2021-05-10] MEDS: heparin drip 25,000 UNIT/500 ML PREMIX 17 UNIT IV (10:24)
--- NOTE | 2021-05-10 10:55 | PM.PN ---
Subjective Subjective: Patient had one session of dialysis yesterday. Has remained hemodynamically stable. Off Levophed since yesterday afternoon. Bradycardia on Levophed of 1 mics. T-max in last 24 hours 101 further night. Yesterday was on SIMV/IMV mode for most of the day. Today morning while being put on being removed patient became tachypneic so the plan was aborted. Plan to try again later in the day. No bowel movements yet. Family at bedside. Remains on 40% FiO2, tidal volume of 300 with PEEP of 4 saturating more than 92% Vitals/I&O/Wt Last Vital Signs Temp 100.2 F H 05/10/21 03:30 Pulse 99 05/10/21 08:42 Resp 24 H 05/10/21 10:33 BP 94/60 05/10/21 05:00 Pulse Ox 94 05/10/21 10:33 05/09/21 05/10/21 05/10/21 22:59 06:59 14:59 Intake Total 650.367 / 1073.543 616.23 / 1689.773 100 / 100 Output Total 2583 / 2583 100 / 2683 Balance -1932.633 / -1509.457 516.23 / -993.227 100 / 100 Weight last 48 hrs Weight 61.235 kg Weight 60.1 kg Weight 58.684 kg Weight 58.3 kg Physical Exam Narrative: General: No acute distress, awake, on sedation with fentanyl, and Precedex. HEENT: PERRLA, pupils bilaterally equal and reactive Chest: Normal vesicular breath sounds, no added sounds, equal good air entry bilaterally CVS: S1-S2 regular, no murmurs, no tachycardia, no gallops, no rubs Abdomen: Soft, nontender, no organomegaly, bowel sounds sluggish. Neuro: Intubated, mildly sedated, frowning Urinary Catheter Management: Wynn: Cath Placed During This Visit: yes, but has since been removed by the nurse Reason for Continuing Indwelling Catheter: Accurate Measurement of Urinary Output in Critically Ill Patients Urinary Catheter Date of Insertion: 05/04/21 Urinary Catheter Time of Insertion: 14:00 Date Urinary Catheter Removed: 04/28/21 Time Urinary Catheter Discontinued: 10:30 Data : 05/10/21 02:33 05/10/21 02:33 Micro: Microbiology 05/08/21 08:55 Gram Stain - Final Lung Left Lower Lobe - #1 Bronchoalveolar Lavage Culture - Final 05/07/21 22:15 Urine Culture - Preliminary Urine Catheterized Yeast A&P Assessment and plan (1) Acute respiratory failure requiring reintubation: Status: Acute (2) Acute respiratory distress syndrome (ARDS) due to 2019 novel coronavirus: Status: Acute (3) Pulmonary embolism: Status: Acute (4) Febrile illness: Status: Acute (5) Yeast detected: Status: Acute (6) Aspiration pneumonia: Status: Acute (7) ATN (acute tubular necrosis): Status: Acute (8) COVID: Status: Acute (9) B12 deficiency anemia: Status: Acute (10) Acute pancreatitis: Status: Acute (11) Hypertriglyceridemia: Status: Inactive (12) Shock: Status: Acute Plan Patient was admitted on 04/19 for severe metabolic acidosis, hypertriglyceridemia induced pancreatitis, COVID-19 related ARDS First intubation 04/21 after an episode of vomiting while on BiPAP, developed aspiration pneumonia. Eventually extubated on 05/01 Right IJ dialysis catheter placed 04/20, She did very well between 05/01 and 05/04, she was doing well on room air, wynn removed, antibiotic switched to Augmentin, started making urine, she was able to eat, bowel movements were regular no episodes of vomiting, fever susided Hypertriglyceridemia with pancreatitis improved with insulin gtt and avoiding propofol 05/05 she developed pulmonary edema again, she got worse overnight got transferred to ICU and got intubated on 05/06 for worsening tachypnea Shock: Resolved. Most likely hypovolemic. Less likely septic. Required minimal Levophed during dialysis. Wean off Levophed keeping mean arterial pressure over 62. Monitor urine output and saturation. Acute respiratory failure requiring intubation: Multifactorial. Most likely secondary to COVID-19, pulmonary embolism along with possible aspiration pneumonia. Patient underwent bronchoscopy on 05/08. Bronchial lavage cultures so far positive for yeast. So far sputum culture positive for Coco parapalosis. Repeat MRSA swab. As patient's cultures have remained negative so far will discontinue vancomycin. Continue imipenem and caspofungin for now. Plan to continue caspofungin for 7 days overall. We will de-escalate antibiotics after permacath placement. Blood cultures so far from 05/05 and 05/07 negative. Repeat blood cultures today. We will follow up blood cultures and sputum culture from bronchial lavage and change the antimicrobials accordingly. Febrile episodes: Patient does have potential sources of infection as stated above. Also has pulmonary embolism. Cannot rule out central fevers versus inflammatory or antibiotic fevers. Does not show any typical signs of meningitis. Does have sacral ulcer stage I. Wynn catheter changed on 05/06. Shiley placed more than 2 weeks ago. Plan to remove Shiley today. Plan for permacath on Tuesday if cultures remain negative. CT abdomen pelvis chest done on 05/07 results appreciated. IV Tylenol as needed for fever. Toradol for possible inflammatory fevers every 12 as needed. For pulmonary embolism: Recheck PTT. Restart heparin drip. For COVID-19. Patient is already finished treatment with remdesivir and dexamethasone. Continue weaning ventilator accordingly. DuoNebs every 6 hour, budesonide twice daily. ATN: Nephrology on board. Getting daily dialysis. Possible permacath placement on Tuesday. Plan for removing Shiley on Tuesday to give line holiday for 24 hours. Anemia: No active signs of bleeding. Can be multifactorial. Reticulocyte, iron panel, folate levels appreciated. Haptoglobin level good. Post 1 unit blood transfusion. Hemoglobin appropriate. Found to be vitamin B12 deficient. Continue with vitamin B12 1000 mcg IM daily for 3 days. Hypertriglyceridemia induced pancreatitis: Triglycerides finally improving. Continue with home dose of fenofibrate. Will avoid propofol. Start tube feed today Heparin drip would suffice DVT prophylaxis Full code Parents stay with her most of the time If unable to wean off ventilator this time possibility of tracheostomy and PEG tube placement. Family is aware. Family is also aware that patient ends up getting tracheostomy it is quite possible patient would need transfer to LTAC for further rehabitation. Family is agreeable for now. Plan for the day: Continue with tube feeds. Decrease sedation. Switch to SIMV/MMV mode. Restart heparin drip. Stop vancomycin. MRSA swab. Repeat blood cultures. Start on Toradol every 12 as needed for fevers. Remove Shiley.Replete potassium and phosphorus today. Plan of care discussed in detail with patient's family at bedside. Attestations Medical Necessity Statement*: Requires further hospitalization for management of acute respiratory failure requiring intubation secondary to pulmonary embolism, COVID-19, possible aspiration pneumonia, continuous persistent fevers, ATN requiring maintenance hemodialysis and permacath placement Critical Care Time: The high probability of a clinically significant, sudden or life threatening deterioration of the patient's [renal, cardiac, pulmonary, neurological system(s) required my full and direct attention, intervention and personal management. The critical care time is as shown. 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
--- NOTE | 2021-05-10 10:57 | XRR_ITS ---
PROCEDURE INFORMATION: Exam: XR Abdomen Exam date and time: 05/10/2021 10:57 AM Age: 40 years old Clinical indication: Bloating; Patient HX: Limited images due to PT condition; Additional info: Possible ileus versus sbo TECHNIQUE: Imaging protocol: XR of the abdomen. Views: Frontal supine view of the abdomen. 1 View. COMPARISON: CT chest abd pel wo con 05/07/2021 5:51 PM FINDINGS: Gastrointestinal tract: Moderate gaseous distention of the colon. No small bowel dilatation. No free air. Bones/joints: No acute osseous abnormality. XR/XR KUB portable [id number] IMPRESSION: Moderate gaseous distention of the colon. No small bowel dilatation.
[2021-05-10 11:02] LABS: Partial Thromboplastin Time 35.5 SECONDS (23.9-36.7)
--- NOTE | 2021-05-10 11:13 | USR_ITS ---
PROCEDURE INFORMATION: Exam: US Duplex Lower Extremity Veins, Bilateral Exam date and time: 05/10/2021 11:13 AM Age: 40 years old Clinical indication: Edema, localized; Lower extremity, bilateral; Patient HX: Last bilateral venous done 04-20-21/ neg; Additional info: Dvt/pe TECHNIQUE: Imaging protocol: Real-time Duplex ultrasound of the bilateral extremities with 2-D mari scale, color Doppler flow and spectral waveform analysis with image documentation. Complete exam focused on the bilateral lower extremity veins. COMPARISON: CT chest abd pel wo con 05/07/2021 5:51 PM FINDINGS: Right deep veins: Unremarkable. The common femoral, femoral, proximal profunda femoral, popliteal, posterior tibial and peroneal veins are patent without thrombus. Normal Doppler waveforms. Normal compressibility and/or augmentation response. Right superficial veins: Saphenofemoral junction is patent without thrombus. Left deep veins: Unremarkable. The common femoral, femoral, proximal profunda femoral, popliteal, posterior tibial and peroneal veins are patent without thrombus. Normal Doppler waveforms. Normal compressibility and/or augmentation response. Left superficial veins: Saphenofemoral junction is patent without thrombus. Soft tissues: Unremarkable. US/[place] [id number] IMPRESSION: No sonographic evidence of deep vein thrombosis.
--- NOTE | 2021-05-10 11:13 | CTR_ITS ---
PROCEDURE INFORMATION: Exam: CT Head Without Contrast Exam date and time: 05/10/2021 11:13 AM Age: 40 years old Clinical indication: Other: ? Bleed; Patient HX: PT on vent TECHNIQUE: Imaging protocol: Computed tomography of the head without contrast. Axial, coronal and sagittal reformatted images were created and reviewed. Radiation optimization: All CT scans at this facility use at least one of these dose optimization techniques: automated exposure control; mA and/or kV adjustment per patient size (includes targeted exams where dose is matched to clinical indication); or iterative reconstruction. COMPARISON: CT head wo con* [id number] 04/25/2021 6:19 PM RADIATION DOSE METRICS: Total DLP (mGy-cm): 610.44 FINDINGS: Brain: No CT evidence of acute intracranial hemorrhage or acute territorial infarction. No significant mass effect or midline shift. Basal cisterns patent. Cerebral ventricles: Prominence of the cortical sulci, cisterns and ventricular system, consistent with cerebral and cerebellar volume loss. Paranasal sinuses: Polypoid right sphenoid sinus mucosal thickening. No fluid levels. Mastoid air cells: Is partial opacification of the right greater than left mastoid air cells. Bones/joints: No acute osseous abnormality. Soft tissues: Grossly unremarkable. CT/CT head wo con* [id number] IMPRESSION: 1. No CT evidence of acute intracranial pathology. 2. Additional findings, as above.
[2021-05-10] MEDS: potassium chloride oral liq 20 mEq/15 mL UDC 40 MEQ PO (11:28)
[2021-05-10] MEDS: ketorolac 30 mg/mL INJ 15 MG IVP (11:34)
--- NOTE | 2021-05-10 11:36 | PC.NUTR ---
TF consult received. Recommend Nepro 1.8 to begin @ 10 mls/hr, advancing 10 mls/hr as tolerated to goal rate of 30 mls/hr; with flushes 150 mls Q4H or per MD discretion. This will meet between 80-90% Pt's estimated needs. Details in RD assessment.
--- NOTE | 2021-05-10 12:12 | PC.RESP ---
RT Shift Note Frequent safety and respiratory rounds continue. Orders completed as indicated. Patient monitored pre and post treatments throughout shift. Patient [Did.] tolerate treatments appropriately. Condition [DidNotChange]. Patient and/or retail customer service representative educated on respiratory treatment and medications. Patient and/or retail customer service representative [unable to comprehend]. Will continue to monitor patient progress.
[2021-05-10 12:29] LABS: C Reactive Protein 28.3 mg/L (0.0-4.9); Erythrocyte Sedimentation Rate 19 mm/hr (0-15)
--- NOTE | 2021-05-10 13:17 | PC.SOCIAL ---
IMM Updated Updated pt's mother Clarice on IMM. No questions voiced. Initialed, dated, & timed copy in chart.
[2021-05-10 13:49] LABS: Glucose Point of Care 204 mg/dL (70-110)
[2021-05-10] MEDS: heparin 5,000 unit/mL INJ 1 mL IV (15:24)
--- NOTE | 2021-05-10 16:16 | P.PN_ITS ---
Subjective Subjective: I am seeing her in follow up for her renal failure. She got hemodialysis yesterday, tolerated it well. Still intubated Medications: Reviewed: Yes Vitals/I&O/Wt Last Vital Signs Temp 102.7 F H 05/10/21 08:00 Pulse 99 05/10/21 15:27 Resp 22 H 05/10/21 15:27 BP 95/60 05/10/21 12:00 Pulse Ox 99 05/10/21 15:27 05/10/21 05/10/21 05/10/21 06:59 14:59 22:59 Intake Total 616.23 / 8703.607 7394.75 / 1762.75 Output Total 100 / 2683 Balance 516.23 / -822.378 9889.75 / 1762.75 Weight last 48 hrs Weight 61.235 kg Weight 60.1 kg Weight 58.684 kg Physical Exam Narrative: Pt intubated Telesteth did not connect to do full exam Const: COMMON NORMALS: no acute distress Urinary Catheter Management: Carroll: Cath Placed During This Visit: yes, but has since been removed by the nurse Reason for Continuing Indwelling Catheter: Accurate Measurement of Urinary Output in Critically Ill Patients Urinary Catheter Date of Insertion: 05/04/21 Urinary Catheter Time of Insertion: 14:00 Date Urinary Catheter Removed: 04/28/21 Time Urinary Catheter Discontinued: 10:30 Data : 05/10/21 02:33 05/10/21 02:33 Micro: Microbiology 05/10/21 14:45 Blood Culture - Preliminary Blood SPECIMEN COLLECTED 05/06/21 14:00 Gram Stain - Final Sputum - Endotracheal Tube Aspirate Sputum Culture - Final Trichosporon beigelii 05/10/21 11:50 Blood Culture - Preliminary Blood SPECIMEN COLLECTED 05/08/21 08:55 Gram Stain - Final Lung Left Lower Lobe - #1 Bronchoalveolar Lavage Culture - Final A&P Assessment and plan (1) Acute kidney injury: Pt got hemodialysis yesterday, tolerated it well. No indication for dialysis today. Ok to remove dialysis catheter. 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
[2021-05-10 17:51] LABS: Glucose Point of Care 148 mg/dL (70-110)
--- NOTE | 2021-05-10 18:15 | PC.NURSE ---
At 1445, nurse removed dialysis catherter. Tip sent for culture. Pressure held for 15 minutes. Dressed site with tegaderm and gauze. Minimal bleeding, no evidence of hematoma.
--- NOTE | 2021-05-10 18:16 | PC.NURSE ---
Patient taken to CT. Transport was uneventful.
--- NOTE | 2021-05-10 18:16 | PC.NURSE ---
Addendum entered by Uli Blanco RN 05/10/21 18:39: Shift summary: Uneventful shift. Patient rested in bed throughout the day. Dialysis catheter was removed without incident, cultures sent. Heparin drip restarted. Patient went to CT. At the beginning of shift, patient had a temperature of 102.7, which slowly came down throughout the day. At end of shift, temperature is 99.9. Tube feeds continue to run at 40mL/hour and the patient tolerates we. 40mL of urine output. Patient had 1 large bowel movement at end of shift. Original Note: Shift summary: Uneventful shift. Patient rested in bed throughout the day. Dialysis catheter was removed without incident, cultures sent. Heparin drip restarted. Patient went to CT. At the beginning of shift, patient had a temperature of 102.7, which slowly came down throughout the day. At end of shift, temperature is 99.9. Tube feeds continue to run at 40mL/hour and the patient tolerates we. 40mL of urine output.
--- NOTE | 2021-05-10 19:01 | PC.NURSE ---
Per Dr hathaway, stop heparing drip 3 hours before surgery on 05/11/2021. Stop tube feeds at 0500 on 05/10/2021. NUrse alerted director of development and marketing nurse to this and also wrote it on white board in room.
[2021-05-10 20:04] LABS: Partial Thromboplastin Time 49.2 SECONDS (23.9-36.7)
[2021-05-10 20:05] LABS: Glucose Point of Care 143 mg/dL (70-110)
[2021-05-10] MEDS: quetiapine 25 mg Tablet 50 MG PO (20:28)
[2021-05-10] MEDS: metoprolol tartrate 25 mg Tablet PO (20:28)
--- NOTE | 2021-05-10 22:24 | PC.NURSE ---
signed consent for placement of tunneled hemodialysis catheter obtained from pt's mother.
[2021-05-11] VITALS (66 sets, daily range): BP systolic 73–135; BP diastolic 43–86; PULSE 105–122; RESP 17–33; TEMP 37.7–39.6; O2SAT 90–100
[2021-05-11] MEDS: dexmedeTOMIDine 0.9 % NaCL 400 MCG/100 ML PREMIX 21 MCG IV ×5 (01:04→19:53)
[2021-05-11] MEDS: famotidine 20 mg/2 mL INJ IVP ×2 (02:00→14:24)
[2021-05-11] MEDS: ipratropium-albuterol 3 mL Neb INHALATION ×6 (03:21→23:36)
[2021-05-11 03:43] LABS: Basophils # 0.1 10^3/uL (0.0-0.1); Basophils % 0.7 %; Eosinophils # 0.4 10^3/uL (0.0-0.8); Eosinophils % 6.6 %; Hematocrit 29.5 % (37.0-47.0); Hemoglobin 9.2 g/dL (11.5-15.3); Lymphocytes % 30.4 %; Mean Corpuscular HGB Conc 31.2 g/dL (30.0-36.0); Mean Corpuscular Volume 99.3 fl (81-99); Mean Platelet Volume 11.6 fL (7.4-10.4); Monocytes # 0.5 10^3/uL (0.2-0.9); Monocytes % 7.5 %; Neutrophils # 3.55 10^3/uL (1.8-7.7); Neutrophils % 52.9 %; Nucleated Red Blood Cells % 0.3 %; Platelet Count 167 10^3/cmm (130-400); Red Blood Count 2.97 10^6/uL (4.1-5.3); Red Cell Distribution Width 18.5 % (12.1-15.1); White Blood Count 6.7 10^3/uL (4.0-10.0)
[2021-05-11 04:00] LABS: Alanine Aminotransferase 14 U/L (0-33); Albumin Level 2.9 g/dL (3.5-5.2); Alkaline Phosphatase 258 IU/L (35-105); Anion Gap 14.2 (5-19); Aspartate Amino Transferase 66 U/L (0-32); Blood Urea Nitrogen 34 mg/dL (6-20); Calcium 9.6 mg/dL (8.5-10.5); Carbon Dioxide 23 mmol/L (22-29); Chloride 105 mmol/L (98-107); Globulin 3.2 g/dL (1.3-4.6); Glomerular Filtration Rate 21.4 mL/min (90-130); Glucose 154 mg/dL (65-115); Osmolality Calculated 297 mOsm/kg (285-295); Phosphorus 2.2 mg/dL (2.5-4.5); Potassium 4.2 mmol/L (3.5-5.1); Sodium 138 mmol/L (136-145); Total Bilirubin 0.7 mg/dL (0.15-1.2); Total Protein 6.1 g/dL (6.6-8.7)
[2021-05-11 04:28] LABS: Vancomycin Trough 20.5 ug/mL (10-15)
[2021-05-11] MEDS: heparin 5,000 unit/mL INJ 1 mL 1200 UNIT IVP (04:35)
[2021-05-11] MEDS: acetaminophen 325 mg Tablet 650 MG PO ×2 (04:44→19:24)
[2021-05-11 05:35] LABS: Glucose Point of Care 179 mg/dL (70-110)
[2021-05-11] MEDS: insulin lispro 100 unit/1 mL SUBCUT ×4 (05:38→21:48)
--- NOTE | 2021-05-11 06:26 | PC.NURSE ---
Addendum entered by Yane Alvarado RN 05/11/21 06:26: Dr. Simms. Original Note: Orders to stop Heparin at [address] Ward.
--- NOTE | 2021-05-11 07:03 | PC.NURSE ---
Dr. masters at bedside approximately 0650 expressed concern for placing tunneled dialysis cath due to current fevers without known cause. Dr. Colon at bedside approximately 0700, gave v.o. to change out Foly catheter
--- NOTE | 2021-05-11 08:07 | XR_ITS ---
WS: [id number] PORTABLE CHEST HISTORY: Eval for pulmonary edema - evaluation for ultrafiltration COMPARISON: 05/08/2021 Endotracheal tube and nasogastric tubes remain in good position. LEFT central line is present with ti p in the RIGHT heart. Central line has advanced since the prior study of 05/06/2021. Tip overlies the RIGHT heart. Lung volumes are decreased. Diffuse bilateral patchy opacifications. No improvement. No focal dense c onsolidation. No pleural effusion or pneumothorax. Cardiac size: Partially obscured by the airspace disease. Mediastinum/Aorta: Normal mediastinum. No osseous abnormality seen. XR/XR chest 1V portable [id number] IMPRESSION: 1. Low lung volumes with bilateral diffuse pneumonitis and opacifications. No progression since 05/08/2021. 2. Tip of the LEFT IJ central line appears to be within the RIGHT heart. Tip h as advanced since the prior study of 05/06/2021. Recommend retracting the centra l line 6 to 7 cm for more optimal positioning. 3. Nasogastric and endotracheal tubes are in good position.
--- NOTE | 2021-05-11 08:23 | P.PN_ITS ---
Subjective Subjective: Precious remains intubated and mechanically ventilated, remains critically sick in the ICU. Fever overnight is appreciated. Temperature up to 103. Blood cultures remain negative from 05/10, last urine culture positive from 05/07. Remains stable on FiO2 40%, tidal volume 300, respiratory rate 16. Last dialysis on 05/09. Remains oliguric. Medications: Reviewed: Yes Medication Review Details: Current Medications Acetaminophen (Acetaminophen 325 Mg Tablet) 650 mg PO Q6H PRN PRN Reason: Mild/Mod Pain Or Temp >/= 101 Last Admin: 04/30/21 11:37 Dose: 650 mg Documented by: Albuterol/Ipratropium (Ipratropium-Albuterol 3 Ml Neb) 3 ml INHALATION Q4H.RESPIRATORY ANNIE Last Admin: 05/08/21 03:25 Dose: 3 ml Documented by: Calcium Carbonate (Calcium Carbonate 500 Mg Chew Tablet) 1,000 mg PO TID ANNIE Last Admin: 05/07/21 21:07 Dose: 1,000 mg Documented by: Dextrose (Dextrose 50% Syringe 50 Ml) 25 ml IVP ONCE PRN; Protocol PRN Reason: hypoglycemia protocol Last Admin: 04/20/21 00:25 Dose: 25 ml Documented by: Dextrose (Dextrose 50% Syringe 50 Ml) 50 ml IVP PRN PRN; Protocol PRN Reason: hypoglycemia protocol Last Admin: 04/19/21 20:35 Dose: 50 ml Documented by: Dextrose (Dextrose 50% Syringe 50 Ml) 25 ml IVP ONCE PRN; Protocol PRN Reason: hypoglycemia protocol Dextrose (Dextrose 50% Syringe 50 Ml) 50 ml IVP PRN PRN; Protocol PRN Reason: hypoglycemia protocol Epoetin Shubham (Epoetin Shubham 1000 Unit/0.05 Ml (Esrd)) 6,000 unit SUBCUT EVERY OTHER DAY COUNTS INCLUDE 234 BEDS AT THE [facility] Last Admin: 05/06/21 17:06 Dose: 6,000 unit Documented by: Ergocalciferol (Ergocalciferol (Vitamin D2) 50,000 Unit Capsule) 50,000 unit PO Q7D COUNTS INCLUDE 234 BEDS AT THE [facility] Last Admin: 05/05/21 09:00 Dose: 50,000 unit Documented by: Famotidine (Famotidine 20 Mg/2 Ml Inj) 20 mg IVP Q12H ANNIE Last Admin: 05/08/21 01:26 Dose: 20 mg Documented by: Fenofibrate (Fenofibrate 145 Mg Tablet) 145 mg PO DAILY COUNTS INCLUDE 234 BEDS AT THE [facility] Last Admin: 05/07/21 09:29 Dose: 145 mg Documented by: Glucagon (Glucagon 1 Mg/Ml Inj 1 Ml) 1 mg IM ONCE PRN; Protocol PRN Reason: Adult Acute Hypoglycemia Prot. Heparin Sodium (Porcine) (Heparin 5,000 Unit/Ml Inj 1 Ml) 0 unit IV PRN PRN; Protocol PRN Reason: Heparin weight-base protocol Last Admin: 05/06/21 15:56 Dose: 3,500 unit Documented by: Dextrose (D5w) 500 mls @ 100 mls/hr IV ONCE PRN; Protocol PRN Reason: Adult Acute Hypoglycemia Prot Heparin Sodium/Sodium Chloride (Heparin Drip) 25,000 unit in 500 mls @ 0 mls/hr IV .Q0M ANNIE; Protocol Last Titration: 05/07/21 18:35 Dose: Infused Documented by: Imipenem/Cilastatin Sodium 250 (mg/ Sodium Chloride) 100 mls @ 200 mls/hr IV Q12H ANNIE; Protocol Last Infusion: 05/08/21 05:25 Dose: Infused Documented by: Furosemide 100 mg/ Sodium (Chloride) 50 mls @ 0 mls/hr IV .Q0M ANNIE; Protocol Last Titration: 05/06/21 11:00 Dose: 0 mg/hr, 0 mls/hr Documented by: Dexmedetomidine HCl 1,000 mcg/ (Sodium Chloride) 260 mls @ 0 mls/hr IV .Q0M ANNIE; Protocol Last Titration: 05/08/21 01:21 Dose: 0.5 mcg/kg/hr, 9.15 mls/hr Documented by: Fentanyl 2,500 mcg/ Sodium (Chloride) 250 mls @ 0 mls/hr IV .Q0M ANNIE; Protocol Last Admin: 05/07/21 12:45 Dose: 100 mcg/hr, 10 mls/hr Documented by: Midazolam HCl 100 mg/ Sodium (Chloride) 100 mls @ 0 mls/hr IV .Q0M ANNIE; Protocol Last Titration: 05/07/21 18:35 Dose: Infused Documented by: Norepinephrine Bitartrate 8 mg (/ Dextrose) 508 mls @ 0 mls/hr IV .Q0M ANNIE; Protocol Last Titration: 05/08/21 00:59 Dose: 1 mcg/min, 3.81 mls/hr Documented by: Caspofungin 50 mg/ Sodium (Chloride) 250 mls @ 250 mls/hr IV Q24H COUNTS INCLUDE 234 BEDS AT THE [facility] Last Infusion: 05/07/21 20:24 Dose: Infused Documented by: Vancomycin HCl 750 mg/ Sodium (Chloride) 250 mls @ 250 mls/hr IV DIALYSIS COUNTS INCLUDE 234 BEDS AT THE [facility] Last Infusion: 05/07/21 18:18 Dose: Infused Documented by: Albumin Human (Albumin) 12.5 gm in 50 mls @ 60 mls/hr IV PRN PRN PRN Reason: Hypotension and/or symptomatic Magnesium Sulfate (Magnesium Sulfate Premix) 4 gm in 100 mls @ 50 mls/hr IV ONCE ONE Stop: 05/08/21 08:30 Insulin Human Lispro (Insulin Lispro 100 Unit/1 Ml) 0 unit SUBCUT WM&BEDTIME COUNTS INCLUDE 234 BEDS AT THE [facility]; Protocol Last Admin: 05/07/21 21:38 Dose: Not Given Documented by: Lactulose (Lactulose Oral Liq 20 Gm/30 Ml Udc) 10 gm PO DAILY PRN PRN Reason: CONSTIPATION Lanolin (Lanolin Oint 7 Gm) 1 applic TOPICAL PRN PRN PRN Reason: DRYNESS Lorazepam (Lorazepam 2 Mg/Ml Inj 1 Ml) 1 mg IVP Q8H PRN PRN Reason: ANXIETY Last Admin: 05/06/21 11:15 Dose: 1 mg Documented by: Metoprolol Tartrate (Metoprolol Tartrate 25 Mg Tablet) 25 mg PO BID@0900,2100 COUNTS INCLUDE 234 BEDS AT THE [facility] Last Admin: 05/07/21 21:06 Dose: 25 mg Documented by: Naloxone HCl (Naloxone 0.4 Mg/Ml Sdv) 0.1 mg IVP Q2M PRN PRN Reason: OPIATERV Ondansetron HCl (Ondansetron 2 Mg/Ml Sdv 2 Ml) 4 mg IVP Q8H PRN PRN Reason: vomiting, or N/V if npo Last Admin: 05/06/21 11:14 Dose: 4 mg Documented by: Quetiapine Fumarate (Quetiapine 25 Mg Tablet) 25 mg PO BEDTIME COUNTS INCLUDE 234 BEDS AT THE [facility] Last Admin: 05/05/21 21:23 Dose: Not Given Documented by: Rocuronium [place] (Rocuronium 10 Mg/Ml Inj 5ml) 80 mg IVP Q1H PRN 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 Last Admin: 05/06/21 15:41 Dose: 80 mg Documented by: Senna/Docusate Sodium (Sennosides-Docusate Tablet) 2 tab PO DAILY ANNIE Last Admin: 05/07/21 09:29 Dose: 2 tab Documented by: Vitals/I&O/Wt Last Vital Signs Temp 102.4 F H 05/11/21 06:28 Pulse 110 H 05/11/21 06:30 Resp 25 H 05/11/21 06:30 BP 101/49 05/11/21 06:30 Pulse Ox 95 05/11/21 06:30 05/10/21 05/11/21 05/11/21 22:59 06:59 14:59 Intake Total 1217.4739 / 2980.2239 1003.033 / 3983.2569 Output Total 55 / Balance 1162.4739 / 2925.2239 983.033 / 3908.2569 Weight last 48 hrs Weight 65.771 kg Weight 61.235 kg Weight 60.1 kg Physical Exam Narrative: Constitutional: Intubated and vented HEENT: Wet mucosa, no jvp, non icteric Lungs: Bilaterally scattered rales CVS: S1 S2, no murmurs Abdo: Soft, BS ok Ext 4: Minimal edema, peripheral perfusion with no cyanosis Neurological: Grossly non-focal Urinary Catheter Management: Carroll: Cath Placed During This Visit: yes, but has since been removed by the nurse Reason for Continuing Indwelling Catheter: Accurate Measurement of Urinary Out put in Critically Ill Patients Urinary Catheter Date of Insertion: 05/04/21 Urinary Catheter Time of Insertion: 14:00 Date Urinary Catheter Removed: 04/28/21 Time Urinary Catheter Discontinued: 10:30 Data : 05/11/21 03:00 05/11/21 03:00 Micro: Microbiology 05/05/21 22:00 Blood Culture - Final Blood NO GROWTH AFTER 5 DAYS 05/05/21 21:59 Blood Culture - Final Blood NO GROWTH AFTER 5 DAYS 05/10/21 14:45 Blood Culture - Preliminary Blood SPECIMEN COLLECTED 05/06/21 14:00 Gram Stain - Final Sputum - Endotracheal Tube Aspirate Sputum Culture - Final Trichosporon beigelii 05/10/21 11:50 Blood Culture - Preliminary Blood SPECIMEN COLLECTED 05/08/21 08:55 Gram Stain - Final Lung Left Lower Lobe - #1 Bronchoalveolar Lavage Culture - Final A&P Assessment and plan (1) ATN (acute tubular necrosis): 1. Acute kidney injury Remains oligoanuric, likely secondary to acute tubular injury Last dialyzed on 05/09. Will get chest x-ray today. Likely dialysis tomorrow. We will have to hold off on permacath until blood cultures return negative given her high fever. Strict I's and O's Close monitoring for recovery Dose medication for GFR less than 15 on dialysis 2. Pancreatitis Secondary to hypertriglyceridemia, triglyceride levels now trending down, below 500 mgmt per medicine recheck Tgs and lipase today 3. Chemistry Labs appreciated, look good 4. ID High fever noted. Given recent pancreatitis will recheck lipase levels. Urine culture with yeast. Blood cultures pending. I agree with deferring permacath placement at this time. Thank you for consultation, it is a pleasure to follow these cases with you Exam and interview performed with aid of bedside RN using telemedicine Time spent 20 min inc > 50% of time in face to face counseling Pollo Seo MD [facility] [phone] Status: Acute Attestations Medical Necessity Statement*: Eval for Shivam Coding Level of Care Code Acute Senior Recruiter for g Fwd Diagnoses ATN (acute tubular necrosis) N17.0
--- NOTE | 2021-05-11 08:43 | PC.NURSE ---
Dr. Limon via telehealth notified this nurse dialysis will be held off for today and reevaluated each day
[2021-05-11] MEDS: piperacillin-tazobactam 3.375 GM in sodium chloride 0.9% (plus) 50 ML 6.25 GM IV ×2 (09:01→19:53)
[2021-05-11] MEDS: sennosides-docusate Tablet 2 TAB PO (09:02)
[2021-05-11] MEDS: fenofibrate 145 mg Tablet PO (09:02)
[2021-05-11] MEDS: calcium carbonate 500 mg Chew Tablet 1000 MG PO ×3 (09:02→21:31)
[2021-05-11] MEDS: cyanocobalamin 1,000 mcg/mL SDV 1000 MCG IM (09:02)
[2021-05-11] MEDS: magnesium hydroxide 30 mL UDC PO (09:03)
[2021-05-11] MEDS: lactulose oral liq 20 gm/30 mL UDC 10 GM PO (09:03)
[2021-05-11] MEDS: metoprolol tartrate 25 mg Tablet PO ×2 (09:19→21:30)
--- NOTE | 2021-05-11 09:19 | PC.CHAP ---
Pastoral Care Encounter/Spiritual Assessment Type of Contact [] Declined latrine cleaner visit [] Patient/Family/Request visit [] Outpatient visit [] Follow-up visit [] Physician referral [] Code/Alert [x] Routine visit [] Staff referral [] Actively dying [] Patient sleeping [x] Family support [] [] Out of room [] Palliative care [] [] Receiving care in room [] Pre-surgical visit [] Trauma [] Long length of stay [x] ICU visit [x] Other: have visited patient each day.. continue to pray with parents Relational/Emotional Strength [] Patient feels connected with others/family/visitors/staff [] Distress [] Loneliness/isolation [] Abandonment Spirituality of Patient [] Person of Emelina [] Attends Confucianist of their Emelina [] Believes in Prayer [] Reads Bible or Lutheran materials [] There are Spiritual issues to be addressed Accounting Auditor Interventions [x] Prayer [] Active listening [] Non-anxious presence [] Spiritual/emotional support [] Crisis/trauma care [] Spiritual counseling [] Bereavement support [] Provided bereavement packet [] Provided Bible/devotional materials [] Provided toy/stuffed animal, coloring book to patient or family member [] Provided Communion [] Anointing/[place] [] Salvation [x] Completed spiritual assessment [] Other: Impact on Illness or Injury [] Angry [] Fearful [] Anxious [] Often cries [] Exhaustion [] Unable to work [] Unable to attend jewish [] Unable to walk/stand [] Unable to read [] Unable to drive [] Unable to eat/drink [] Unable to sleep [] Unable to be with family [] Patient intubated [] Other: Summary Time spent with patient
[2021-05-11 09:21] LABS: Partial Thromboplastin Time 57.3 SECONDS (23.9-36.7)
[2021-05-11] MEDS: FUROsemide 10 mg/mL SDV 10mL 80 MG IVP (09:51)
--- NOTE | 2021-05-11 10:01 | PC.NURSE ---
Dr. Downs at bedside gave v.o. to administer Albumin and IVP Lasix
[2021-05-11 10:21] LABS: Glucose Point of Care 158 mg/dL (70-110)
--- NOTE | 2021-05-11 10:21 | P.CONIM_ITS ---
Providers/Reason For Consult Consulting Physician/Specialty*: Alka Colon MD/Infectious Disease Reason for Consult*: persisting fever , concern for trichosporiosis Attending Physician: Pratik Downs MD Primary Care Provider: Colten Glaser MD History of Present Illness History of Present Illness Precious Mckeon is a 40 year old female admitted to the hospital since 04/19/2021 a fter presenting with nausea, vomiting, abdominal pain, encephalopathy, TONY cr 10 and was found to have evidence of pancreatitis, elevated lipase, hypertriglyceridemia. CT of the abdomen additionally showed groundglass opacities in the lungs and she was diagnosed with COVID 19 based on positive PCR testing. H/o URI symptoms + in the preceeding 2 weeks. She was treated with insulin infusion. Temporary HD cath placed 04/20 and dialysis started. treated with remdisivir, steroids 04/20-current. On 04/20, she started to develop respiratory distress and patient placed on Bipap, eventually intubated 04/21. Concern for aspiration due to witnessed vomiting on bipap. ? ?CTA chest showed subsegmental PE and upper lobe consolidation likely aspiration pneumonia. Extubated 05/01. Off vasopressor agents.? By 05/04 transitioned to room air, making urine ~1L/day. on 05/05 Significantly tachypneic, requiring BiPAP with an FiO2 of 60%, and febrile at 101.6. Reintubated 05/06. On pressors. possible fluid overload. Bronch 05/08. Bronchoalveolar lavage was taken from left lower lobe and sent for Gram stain and bacterial cultures, fungal cultures, PJP PCR. ID consulted as patient continues to have persistent fever and trichosporon detected on endotracheal aspirate. Patient is currently intubated and sedated, unable to participate in history. fever curve: intermittent daily fever since 04/24 except 48 hrs afebrile 05/03- 05/05, now persistent fever up to 103F since 05/09. Pertinent labs: 05/10: MRSA screen: negative Blood cx : 05/10, 05/07, 05/05, 04/28, 04/18: negative to date 05/08: BAL cx LLL: no growth, no organisms on gram stain 05/07: urine cx : valentin parapsilosis ; 05/05: urine cx : negative ; 04/19: urine cx : negative 05/06/21: Endotracheal aspirate cx : Trichosporon beigelii based on gram stain identification from SDA plate. To be replated today for confirmation per discussion with micro lab. 04/29: sputum cx/endotrach aspirate: valentin parapsilosis 04/30, 05/06: C diff PCR: negative 05/08: PJP PCR from BAL: pending 05/11: cytology from BAL: chronic inflammation 04/19: COVID PCR : detected ; influenza negative 04/19: Acute hepatitis and HIV serology : negative Imagin/20: venous duplex negative for DVT 05/10: Ct head: no intracranial pathology 05/11: Ct sinus: no evidence of invasive fungal infection 05/08: CXR: B/L pulmonary opacities consistent with PNA 05/07: CT CAP w/o con : prominent small bowel fluid, s/c edema, pancreas reported as normal 04/25 : ct Abd/pelvis w/o contrast : bibasilar opacities, mild residual pancreatitis 04/22: CT CAP: few filling defects in the left lower lobe pulmonary artery suspicious for pulmonary embolus.Air-fluid level in the stomach. Air distended transverse colon compatible with adynamic ileus.Small amount of pancreatic edema is similar to previous.? 04/18: CT Abd/pelvis: Hazy bilateral pulmonary opacities which are consistent with COVID-19. Acute pancreatitis pancreas is enlarged and edematous with peripancreatic fat stranding. 05/05: B/L pulmonary infiltrates progressed 04/30: diffuse lung opacities with improvement Lines: RIJ temp HD: 04/20 R fem CVC 04/20; LIJ CVC 05/06 Carroll catheter changed on 05/06. ESR: 19; CRP: 28.3 <<100<<6.3 TTE 04/21: poor quality windows, valves not well visualized Abx history: Zosyn 04/20-04/24 ; vancomycin 04/20-? , 05/05-05/08; imipenem 04/25- 05/03 ; 05/05-current ; atypical coverage: none caspofungin 05/06- 05/11 Seroquel started 04/28- Review of Systems General: Reports: ROS unobtainable due to endotracheal tube and ROS unobtainable due to medical condition Medications/Allergies Home Medications Medication Instructions Recorded Confirmed Last Taken Type norgestimate-ethinyl estradiol 1 tab PO DAILY #84 tab 01/14/21 04/19/21 Unknown Rx 0.18 mg/0.215mg/0.25mg-35 mcg(28)tablet (Tri-Linyah) metformin 1,000 mg tablet 1,000 mg PO BID #180 tab 01/29/21 04/19/21 Unknown Rx duloxetine 60 mg capsule,delayed 60 mg PO DAILY #90 cap 01/30/21 04/19/21 Unknown Rx release fenofibrate nanocrystallized 145 145 mg PO DAILY #90 tab 01/30/21 04/19/21 Unknown Rx mg tablet metoprolol succinate 50 mg 50 mg PO DAILY #90 tab 01/30/21 04/19/21 Unknown Rx tablet,extended release 24 hr (Toprol XL) spironolactone 50 mg tablet 50 mg PO BID #180 tab 01/30/21 04/19/21 Unknown Rx hydrochlorothiazide 25 mg tablet 25 mg PO DAILY #90 tab 02/26/21 04/19/21 Unknown Rx ondansetron 4 mg disintegrating 4 mg PO Q8H PRN #20 tab 04/17/21 04/19/21 Unknown Rx tablet Allergies Allergy/AdvReac Type Severity Reaction Status Date / Time No Known Allergies Allergy Verified 04/20/21 13:09 Current Medications Generic Name Dose Route Start Last Admin Trade Name Freddyq PRN Reason Stop Dose Admin Acetaminophen 650 mg 04/19/21 02:25 05/11/21 04:44 Acetaminophen 325 Mg Tablet PO 650 mg Q6H PRN Administration Mild/Mod Pain Or Temp >/= 101 Albuterol/Ipratropium 3 ml 04/25/21 12:00 05/11/21 08:36 Ipratropium-Albuterol 3 Ml Neb INHALATION 3 ml Q4H.RESPIRATORY ANNIE Administration Calcium Carbonate 1,000 mg 04/21/21 09:00 05/11/21 09:02 Calcium Carbonate 500 Mg Chew Tablet PO 1,000 mg TID ANNIE Administration Cyanocobalamin 1,000 mcg 05/09/21 15:40 05/11/21 09:02 Cyanocobalamin 1,000 Mcg/Ml Sdv IM 05/12/21 15:39 1,000 mcg DAILY ANNIE Administration Dextrose 25 ml 04/19/21 02:25 04/20/21 00:25 Dextrose 50% Syringe 50 Ml IVP 25 ml ONCE PRN Administration hypoglycemia protocol Protocol Dextrose 50 ml 04/19/21 02:25 04/19/21 20:35 Dextrose 50% Syringe 50 Ml IVP 50 ml PRN PRN Administration hypoglycemia protocol Protocol Ergocalciferol 50,000 unit 04/21/21 07:45 05/05/21 09:00 Ergocalciferol (Vitamin D2) 50,000 Unit Capsule PO 50,000 unit Q7D ANNIE Administration Famotidine 20 mg 04/19/21 02:25 05/11/21 02:00 Famotidine 20 Mg/2 Ml Inj IVP 20 mg Q12H ANNIE Administration Fenofibrate 145 mg 04/22/21 09:00 05/11/21 09:02 Fenofibrate 145 Mg Tablet PO 145 mg DAILY ANNIE Administration Heparin Sodium/Sodium Chloride 25,000 unit in 500 mls @ 0 mls/hr 05/05/21 17:45 05/11/21 04:00 Heparin Drip IV 13.5 unit/kg/hr .Q0M ANNIE 19 mls/hr Titration Protocol Per Protocol Fentanyl 2,500 mcg/ Sodium 250 mls @ 0 mls/hr 05/06/21 11:30 05/10/21 15:27 Chloride IV 125 mcg/hr .Q0M ANNIE 12.5 mls/hr Administration Protocol Per Protocol Midazolam HCl 100 mg/ Sodium 100 mls @ 0 mls/hr 05/06/21 11:30 05/07/21 18:35 Chloride IV Infused .Q0M ANNIE Titration Protocol Per Protocol Norepinephrine Bitartrate 8 mg 508 mls @ 0 mls/hr 05/06/21 13:15 05/11/21 06:46 / Dextrose IV 1 mcg/min .Q0M ANNIE 3.81 mls/hr Titration Protocol Per Protocol dexmedeTOMIDine 0.9 % NaCL 400 mcg in 100 mls @ 0 mls/hr 05/09/21 19:19 05/11/21 05:39 Precedex IV 21 mls/hr PRN PRN Administration SEDATION Per Protocol Piperacillin Sod/Tazobactam 50 mls @ 6.25 mls/hr 05/11/21 08:30 05/11/21 09:01 Sod 3.375 gm/ Sodium Chloride IV 6.25 mls/hr Q12H ANNIE Administration Protocol Albumin Human 25 gm in 100 mls @ 60 mls/hr 05/11/21 09:30 05/11/21 09:43 Albumin IV 05/12/21 09:29 60 mls/hr Q8H ANNIE Administration Insulin Human Lispro 0 unit 05/08/21 10:55 05/11/21 10:09 Insulin Lispro 100 Unit/1 Ml SUBCUT 2 unit Q6H ANNIE Administration Protocol Lactulose 10 gm 05/09/21 10:30 05/11/21 09:03 Lactulose Oral Liq 20 Gm/30 Ml Udc PO 10 gm DAILY ANNIE Administration Magnesium Hydroxide 30 ml 05/09/21 10:20 05/11/21 09:03 Magnesium Hydroxide 30 Ml Udc PO 30 ml DAILY ANNIE Administration Metoprolol Tartrate 25 mg 05/06/21 21:00 05/11/21 09:19 Metoprolol Tartrate 25 Mg Tablet PO 25 mg BID@0900,2100 ANNIE Administration Ondansetron HCl 4 mg 04/19/21 02:25 05/06/21 11:14 Ondansetron 2 Mg/Ml Sdv 2 Ml IVP 4 mg Q8H PRN Administration vomiting, or N/V if npo Senna/Docusate Sodium 2 tab 04/22/21 09:00 05/11/21 09:02 Sennosides-Docusate Tablet PO 2 tab DAILY ANNIE Administration PFSH Acute PFSH: Medical History (Updated 05/12/21 @ 09:29 by Alka Colon MD) Acute respiratory distress syndrome (ARDS) due to 2019 novel coronavirus ATN (acute tubular necrosis) B12 deficiency anemia COVID Essential hypertension GODFREY (generalized anxiety disorder) Hypertriglyceridemia Mild mental handicap No pertinent family history PCOS (polycystic ovarian syndrome) Pulmonary embolism Yeast detected Valentin parapsilosis 04/29, endotracheal aspirate Surgical History No pertinent past surgical history Family History Father Cancer Social History Smoking and tobacco status: never smoked Alcohol intake: never History of recent travel: No Female Reproductive History: Date of last menstrual period: 04/09/21 Vitals/I&O/Wt Last Vital Signs Temp 102.4 F H 05/11/21 06:28 Pulse 116 H 05/11/21 09:31 Resp 25 H 05/11/21 06:30 BP 121/70 05/11/21 09:31 Pulse Ox 97 05/11/21 09:31 05/10/21 05/11/21 05/11/21 22:59 06:59 14:59 Intake Total 1217.4739 / 2980.2239 1003.033 / 3983.2569 Output Total 55 / 55 20 / Balance 1162.4739 / 2925.2239 983.033 / 3908.2569 Weight last 48 hrs Weight 65.771 kg Weight 61.235 kg Weight 60.1 kg Physical Exam Narrative: GEN: intubated, sedated CVS: S1S2 N RS: coarse breath sounds B/L Abd: Soft, nt/nd , bs+ PRICING ACTUARY: unable to assess Urinary Catheter Management: Carroll: Cath Placed During This Visit: yes, but has since been removed by the nurse Reason for Continuing Indwelling Catheter: Accurate Measurement of Urinary Output in Critically Ill Patients Urinary Catheter Date of Insertion: 05/04/21 Urinary Catheter Time of Insertion: 14:00 Date Urinary Catheter Removed: 04/28/21 Time Urinary Catheter Discontinued: 10:30 Data : 05/12/21 05:15 05/12/21 05:15 Micro: Microbiology 05/05/21 22:00 Blood Culture - Final Blood NO GROWTH AFTER 5 DAYS 05/05/21 21:59 Blood Culture - Final Blood NO GROWTH AFTER 5 DAYS 05/10/21 14:45 Blood Culture - Preliminary Blood SPECIMEN COLLECTED 05/06/21 14:00 Gram Stain - Final Sputum - Endotracheal Tube Aspirate Sputum Culture - Final Trichosporon beigelii 05/10/21 11:50 Blood Culture - Preliminary Blood SPECIMEN COLLECTED 05/08/21 08:55 Gram Stain - Final Lung Left Lower Lobe - #1 Bronchoalveolar Lavage Culture - Final A&P Assessment and plan (1) Persistent fever: Patient originally admitted for acute pancreatitis related to hypertriglyceridemia, acute hypoxic respiratory failure related to COVID 19 pneumonia, TONY currently on HD , complicated hospital course as outlined above. Brief period of improvement between 05/03-05/05, then needed to be reintubated, continues to have persistent fever for which ID os consulted No leukocytosis fever curve, pertinent labs and imaging as outlined above Has been on extensive course of abx with imipenem, vancomycin without significant change respiratory, blood, urine cx remain negative for bacterial growth. urine cx with C. parapsilosis 05/06/21: Endotracheal aspirate cx : Trichosporon beigelii based on gram stain identification from SDA plate. To be replated today for confirmation per discussion with micro lab. 04/29: sputum cx/endotrach aspirate: valentin parapsilosis. Has been on treatment with Caspofungin started 05/06- current Multiple indwelling lines incl temp HD cath since 04/20 Plan: AGree with removal of Shiley as already planned Fungal blood cx sent to [email or web address] labs in addition [place] [facility] Tricosporon spp is environmental fungus that can colonize respiratory tracts that may be associated with invasive infections in immunocompromised hosts. How ever patient does not have profoundly immunocompromising condition, therefore uncertain at this time if this represents the true pathogen here vs colonizer. However given lack of response to caspofungin and presence of multiple lines, recommend changing antifungal therapy to ambisome 5mg/kg q24h. Fungal isolate detected as trichosporon on gram stain- we do not have capability of molecular fungal testing at [facility] [place] at this time- isolate sent out to [facility] additionally for identification and susceptibility. Check urine legionella Ag. Check HEDY to evaluate for cx negative endocarditis less likely tick borne illness Non infectious differentials include drug fever; d/c imipenem, change to Zosyn while placement of new HD cath is pending for torsten op ppx. Thereafter D/c Zosyn. ?inflammatory fever ---> trial of NSAID Pending PJP PCR Organizing pneumonia may be another possibility --> defer to pulmonary regarding trial of steroids. If fungal blood cx returns positive, will need to d/c steroids Less likely HLH- no pancytopenia, liver function improving, no splenomegaly ??serotonin release syndrome given concomitant use of fentanyl, seroquel- appears less likely given lack of HTN, however can give trial of holding seroquel if okay from medicine standpoint. ??autoimmune pancreatitis and ILD, appears less likely given improving CRP and only mildly elevated ESR at 19 will follow Status: Acute (2) Acute respiratory distress syndrome (ARDS) due to 2019 novel coronavirus: s/p remdisivir and steroids Status: Acute (3) ATN (acute tubular necrosis): Status: Acute (4) COVID: Status: Acute (5) Acute pancreatitis: Status: Acute Consult Attestations Medical Necessity Statement: per admitting Coding Level of Care Code Acute Skilled Nursing Facility Counselor for g Fwd Diagnoses Persistent fever R50.9 Acute respiratory distress syndrome (ARDS) due to 2019 novel coronavirus U07.1; J80 ATN (acute tubular necrosis) N17.0 COVID U07.1 Acute pancreatitis K85.90
[2021-05-11] MEDS: epoetin alfa 1000 Unit/0.05 mL (ESRD) 6000 UNIT SUBCUT (10:46)
--- NOTE | 2021-05-11 13:18 | CT_ITS ---
WS: [id number] CT PARANASAL SINUSES HISTORY: possible invasive fungal sinusitis TECHNIQUE: Contiguous 2.5 mm axial images obtained through the sinuses. Images are reconstructed in s agittal and coronal planes. All CT scans at [facility] use at least one of these dose optimiz ation techniques: automated exposure control; mA and/or kV adjustment per patient size (includes targ eted exams where dose is matched to clinical indication); or iterative reconstruction. DLP: 481.46 mGy.cm COMPARISON: None available. Frontal sinuses: Negative. Sphenoid sinus: Small amount of fluid in the RIGHT sphenoid sinus. Ethmoid sinuses: Negative. Maxillary sinus: Small air-fluid level LEFT maxillary sinus. Ostiomeatal unit: Patent. Mild deviation of the nasal septum to the RIGHT. 5 mm spur extends to the RIGHT. Patient is intubated. There is also an orogastric tube present. CT/CT sinus w con [id number]: 1[address] No CT evidence for invasive fungal sinusitis. 2. There are a few small air-fluid levels as above which can be related to th e supine position and the intubation.
--- NOTE | 2021-05-11 13:20 | PM.PN ---
Subjective Subjective: No acute events overnight. Patient has remained hemodynamically stable. Currently on 2 mics of Levophed being turned down. Mean arterial pressures have remained over 70. T-max overnight 103 Fahrenheit. Permacath placement has been deferred given no overnight fevers. Patient remains on fentanyl and Precedex. Overnight has remained on fentanyl 125. On examination she is being turned down to 50. Remains on stable ventilator settings of FiO2 of 40%, tidal volume of 300 with PEEP of 4. Yesterday did not tolerate and removed. Currently has been turned down to pressure support because of high peak pressures. Sputum culture yesterday from 05/06 came back positive for Trichosporon. Vitals/I&O/Wt Last Vital Signs Temp 102.4 F H 05/11/21 06:28 Pulse 116 H 05/11/21 12:00 Resp 25 H 05/11/21 11:59 BP 133/86 05/11/21 12:00 Pulse Ox 97 05/11/21 12:00 05/10/21 05/11/21 05/11/21 22:59 06:59 14:59 Intake Total 1217.4739 / 2980.2239 1003.033 / 3983.2569 100 / 100 Output Total 55 / 55 20 / 75 Balance 1162.4739 / 2925.2239 983.033 / 3908.2569 100 / 100 Weight last 48 hrs Weight 65.771 kg Weight 61.235 kg Weight 60.1 kg Physical Exam Narrative: General: No acute distress, awake, on sedation with fentanyl, and Precedex. HEENT: PERRLA, pupils bilaterally equal and reactive Chest: Normal vesicular breath sounds, no added sounds, equal good air entry bilaterally CVS: S1-S2 regular, no murmurs, no tachycardia, no gallops, no rubs Abdomen: Soft, nontender, no organomegaly, bowel sounds sluggish. Neuro: Intubated, mildly sedated, frowning Urinary Catheter Management: Wynn: Cath Placed During This Visit: yes, but has since been removed by the nurse Reason for Continuing Indwelling Catheter: Accurate Measurement of Urinary Output in Critically Ill Patients Urinary Catheter Date of Insertion: 05/04/21 Urinary Catheter Time of Insertion: 14:00 Date Urinary Catheter Removed: 04/28/21 Time Urinary Catheter Discontinued: 10:30 Data : 05/11/21 03:00 05/11/21 03:00 Micro: Microbiology 05/10/21 11:50 Blood Culture - Preliminary Blood NEGATIVE TO DATE 05/10/21 15:00 Catheter Tip Culture - Preliminary Central Line 05/05/21 22:00 Blood Culture - Final Blood NO GROWTH AFTER 5 DAYS 05/05/21 21:59 Blood Culture - Final Blood NO GROWTH AFTER 5 DAYS 05/10/21 14:45 Blood Culture - Preliminary Blood SPECIMEN COLLECTED 05/06/21 14:00 Gram Stain - Final Sputum - Endotracheal Tube Aspirate Sputum Culture - Final Trichosporon beigelii 05/08/21 08:55 Gram Stain - Final Lung Left Lower Lobe - #1 Bronchoalveolar Lavage Culture - Final A&P Assessment and plan (1) Acute respiratory failure requiring reintubation: Status: Acute (2) Acute respiratory distress syndrome (ARDS) due to 2019 novel coronavirus: Status: Acute (3) Pulmonary embolism: Status: Acute (4) Febrile illness: Status: Acute (5) Yeast detected: Status: Acute (6) Aspiration pneumonia: Status: Acute (7) ATN (acute tubular necrosis): Status: Acute (8) COVID: Status: Acute (9) B12 deficiency anemia: Status: Acute (10) Acute pancreatitis: Status: Acute (11) Hypertriglyceridemia: Status: Inactive (12) Shock: Status: Acute Plan Patient was admitted on 04/19 for severe metabolic acidosis, hypertriglyceridemia induced pancreatitis, COVID-19 related ARDS First intubation 04/21 after an episode of vomiting while on BiPAP, developed aspiration pneumonia. Eventually extubated on 05/01 Right IJ dialysis catheter placed 04/20, She did very well between 05/01 and 05/04, she was doing well on room air, wynn removed, antibiotic switched to Augmentin, started making urine, she was able to eat, bowel movements were regular no episodes of vomiting, fever susided Hypertriglyceridemia with pancreatitis improved with insulin gtt and avoiding propofol 05/05 she developed pulmonary edema again, she got worse overnight got transferred to ICU and got intubated on 05/06 for worsening tachypnea Shock: Most likely hypovolemic. Less likely septic. Required minimal Levophed during dialysis. Wean off Levophed keeping mean arterial pressure over 62. Monitor urine output and saturation. Acute respiratory failure requiring intubation: Multifactorial. Most likely secondary to COVID-19, pulmonary embolism along with possible aspiration pneumonia. Patient underwent bronchoscopy on 05/08. Sputum culture from 05/06+ for trichosporon Bigelli. So far sputum culture form 04/29 positive for Coco parapalosis. Repeat MRSA swab results pending. Blood cultures from negative in 5 days. 17 so far negative. Repeat blood cultures sent on . Will request fungal blood cultures. Vancomycin DC'd on 05/10. Appreciate ID recommendations. For concern for antibiotic fevers. For now we will stop imipenem and start on Zosyn for periprocedure coverage. Plan to stop antibiotics post Shiley placement CT sinus today to rule out invasive fungal sinusitis. Febrile episodes: Patient does have potential sources of infection as stated above. Also has pulmonary embolism. Cannot rule out febrile illness secondary to inflammation or antibiotic fevers versus drug fever. CT head done yesterday negative for bleed. Does not show any typical signs of meningitis. Does have sacral ulcer stage I. Wynn catheter to be changed again today on 05/11. Shiley removed on 05/10. CT abdomen pelvis chest done on 05/07 results appreciated. IV Tylenol as needed for fever. Toradol for possible inflammatory fevers every 12 as needed. Stop SSRIs including Seroquel. For pulmonary embolism: Recheck PTT. Restart heparin drip. For COVID-19. Patient is already finished treatment with remdesivir and dexamethasone. Continue weaning ventilator accordingly. DuoNebs every 6 hour, budesonide twice daily. ATN: Nephrology on board. Last dialysis on 05/09. No plan for dialysis today. Plan for placement of Shiley today. As patient will not get early dialysis till tomorrow for now we will give IV Lasix 80 mg stat. Anemia: No active signs of bleeding. Can be multifactorial. Reticulocyte, iron panel, folate levels appreciated. Haptoglobin level good. Post 1 unit blood transfusion. Hemoglobin appropriate. Found to be vitamin B12 deficient. Continue with vitamin B12 1000 mcg IM daily for 3 days. Hypertriglyceridemia induced pancreatitis: Triglycerides finally improving. Continue with home dose of fenofibrate. Will avoid propofol. Start tube feed today Heparin drip would suffice DVT prophylaxis Full code Parents stay with her most of the time If unable to wean off ventilator this time possibility of tracheostomy and PEG tube placement. Family is aware. Family is also aware that patient ends up getting tracheostomy it is quite possible patient would need transfer to LTAC for further rehabitation. Family is agreeable for now. Plan of care discussed in detail with patient's family at bedside. Attestations Medical Necessity Statement*: Requires further hospitalization for management of septic shock, persistent fevers, possible fungal pneumonia, sinusitis ATN requiring maintenance hemodialysis Critical Care Time: The high probability of a clinically significant, sudden or life threatening deterioration of the patient's [pulmonary, renal, cardiac, ID system(s) required my full and direct attention, intervention and personal management. The critical care time is as shown. This time is in addition to time spent performing any reported procedures but includes the following: [x] Data and vital sign review and interpretation [x] Patient assessment, examination and intervention [x] Documentation [x] Medication orders and management Critical Care Time (min): 90 Coding Level of Care Code Acute Manager Digital [employer] for [facility] Fwd Diagnoses Acute respiratory failure requiring reintubation J96.00 Acute respiratory distress syndrome (ARDS) due to 2019 novel coronavirus U07.1; J80 Pulmonary embolism I26.99 Febrile illness R50.9 Yeast detected B37.9 Aspiration pneumonia J69.0 ATN (acute tubular necrosis) N17.0 COVID U07.1 B12 deficiency anemia D51.9 Acute pancreatitis K85.90 Hypertriglyceridemia E78.1 Shock R57.9
--- NOTE | 2021-05-11 14:27 | PC.NURSE ---
Attempted to call contact Stewart sal family rounding. No answer. Voicemail not set up.
--- NOTE | 2021-05-11 15:14 | PC.NURSE ---
CT called and asked this nurse to clarify if patient should have CT with contrast due to high creatinine, Dr. Downs approved continuing with scan
[2021-05-11] MEDS: iodixanol 320 mg/mL 100mL Btl IV (15:47)
[2021-05-11 16:17] LABS: Glucose Point of Care 143 mg/dL (70-110)
[2021-05-11 17:31] LABS: Partial Thromboplastin Time 36.4 SECONDS (23.9-36.7)
--- NOTE | 2021-05-11 17:54 | PC.NURSE ---
Ronald changed per order form Dr. Downs
--- NOTE | 2021-05-11 19:37 | P.PN_ITS ---
Subjective Subjective: - seen at bedside today - No acute events overnight. Patient has remained hemodynamically stable. on low dose pressor and plan is to taper down - Still spiking fevers ; permacath placement has been deferred due to persistent fevers. - On fentanyl 125 and precedex 1.2 - plan is to taper down fentanyl to 25 mcg/hr - minimal ventilator settings with FiO2 of 40%, tidal volume of 300 with PEEP of 4. - Sputum culture yesterday from 05/06 came back positive for Trichosporon and both urine and sputum cultures so far grew valentin paraspilosis. ID consult requested and currently started on Amphotericin B - Today electrolytes are wnl and pt on fio2 40% - urine out put is 250cc despite lasix 80mg given today am - no urgent need for HD today - will place temporary catheter in case she needs HD - as with ongoing persistent fevers - cannot place Perma cath. - pt had Ct Head with contrast today - and no evidence of invasive fungal sinus infection - another possibility was drug fever/serotonin syndrome; seroquel held; currently she is on zosyn and rest all antibioitcs were stopped - Other labs and imaging reviewed Medications: Reviewed: Yes Medication Review Details: Current Medications Acetaminophen (Acetaminophen 325 Mg Tablet) 650 mg PO Q6H PRN PRN Reason: Mild/Mod Pain Or Temp >/= 101 Last Admin: 04/30/21 11:37 Dose: 650 mg Documented by: Albuterol/Ipratropium (Ipratropium-Albuterol 3 Ml Neb) 3 ml INHALATION Q4H.RESPIRATORY ANNIE Last Admin: 05/08/21 03:25 Dose: 3 ml Documented by: Calcium Carbonate (Calcium Carbonate 500 Mg Chew Tablet) 1,000 mg PO TID ANNIE Last Admin: 05/07/21 21:07 Dose: 1,000 mg Documented by: Dextrose (Dextrose 50% Syringe 50 Ml) 25 ml IVP ONCE PRN; Protocol PRN Reason: hypoglycemia protocol Last Admin: 04/20/21 00:25 Dose: 25 ml Documented by: Dextrose (Dextrose 50% Syringe 50 Ml) 50 ml IVP PRN PRN; Protocol PRN Reason: hypoglycemia protocol Last Admin: 04/19/21 20:35 Dose: 50 ml Documented by: Dextrose (Dextrose 50% Syringe 50 Ml) 25 ml IVP ONCE PRN; Protocol PRN Reason: hypoglycemia protocol Dextrose (Dextrose 50% Syringe 50 Ml) 50 ml IVP PRN PRN; Protocol PRN Reason: hypoglycemia protocol Epoetin Shubham (Epoetin Shubham 1000 Unit/0.05 Ml (Esrd)) 6,000 unit SUBCUT EVERY OTHER DAY PENDING SALE TO [facility] Last Admin: 05/06/21 17:06 Dose: 6,000 unit Documented by: Ergocalciferol (Ergocalciferol (Vitamin D2) 50,000 Unit Capsule) 50,000 unit PO Q7D ANNIE Last Admin: 05/05/21 09:00 Dose: 50,000 unit Documented by: Famotidine (Famotidine 20 Mg/2 Ml Inj) 20 mg IVP Q12H ANNIE Last Admin: 05/08/21 01:26 Dose: 20 mg Documented by: Fenofibrate (Fenofibrate 145 Mg Tablet) 145 mg PO DAILY PENDING SALE TO [facility] Last Admin: 05/07/21 09:29 Dose: 145 mg Documented by: Glucagon (Glucagon 1 Mg/Ml Inj 1 Ml) 1 mg IM ONCE PRN; Protocol PRN Reason: Adult Acute Hypoglycemia Prot. Heparin Sodium (Porcine) (Heparin 5,000 Unit/Ml Inj 1 Ml) 0 unit IV PRN PRN; Protocol PRN Reason: Heparin weight-base protocol Last Admin: 05/06/21 15:56 Dose: 3,500 unit Documented by: Dextrose (D5w) 500 mls @ 100 mls/hr IV ONCE PRN; Protocol PRN Reason: Adult Acute Hypoglycemia Prot Heparin Sodium/Sodium Chloride (Heparin Drip) 25,000 unit in 500 mls @ 0 mls/hr IV .Q0M ANNIE; Protocol Last Titration: 05/07/21 18:35 Dose: Infused Documented by: Imipenem/Cilastatin Sodium 250 (mg/ Sodium Chloride) 100 mls @ 200 mls/hr IV Q12H ANNIE; Protocol Last Infusion: 05/08/21 05:25 Dose: Infused Documented by: Furosemide 100 mg/ Sodium (Chloride) 50 mls @ 0 mls/hr IV .Q0M ANNIE; Protocol Last Titration: 05/06/21 11:00 Dose: 0 mg/hr, 0 mls/hr Documented by: Dexmedetomidine HCl 1,000 mcg/ (Sodium Chloride) 260 mls @ 0 mls/hr IV .Q0M ANNIE; Protocol Last Titration: 05/08/21 01:21 Dose: 0.5 mcg/kg/hr, 9.15 mls/hr Documented by: Fentanyl 2,500 mcg/ Sodium (Chloride) 250 mls @ 0 mls/hr IV .Q0M PENDING SALE TO [facility]; Protocol Last Admin: 05/07/21 12:45 Dose: 100 mcg/hr, 10 mls/hr Documented by: Midazolam HCl 100 mg/ Sodium (Chloride) 100 mls @ 0 mls/hr IV .Q0M PENDING SALE TO [facility]; Protocol Last Titration: 05/07/21 18:35 Dose: Infused Documented by: Norepinephrine Bitartrate 8 mg (/ Dextrose) 508 mls @ 0 mls/hr IV .Q0M PENDING SALE TO [facility]; Protocol Last Titration: 05/08/21 00:59 Dose: 1 mcg/min, 3.81 mls/hr Documented by: Caspofungin 50 mg/ Sodium (Chloride) 250 mls @ 250 mls/hr IV Q24H PENDING SALE TO [facility] Last Infusion: 05/07/21 20:24 Dose: Infused Documented by: Vancomycin HCl 750 mg/ Sodium (Chloride) 250 mls @ 250 mls/hr IV DIALYSIS PENDING SALE TO [facility] Last Infusion: 05/07/21 18:18 Dose: Infused Documented by: Albumin Human (Albumin) 12.5 gm in 50 mls @ 60 mls/hr IV PRN PRN PRN Reason: Hypotension and/or symptomatic Magnesium Sulfate (Magnesium Sulfate Premix) 4 gm in 100 mls @ 50 mls/hr IV ONCE ONE Stop: 05/08/21 08:30 Insulin Human Lispro (Insulin Lispro 100 Unit/1 Ml) 0 unit SUBCUT WM&BEDTIME PENDING SALE TO [facility]; Protocol Last Admin: 05/07/21 21:38 Dose: Not Given Documented by: Lactulose (Lactulose Oral Liq 20 Gm/30 Ml Udc) 10 gm PO DAILY PRN PRN Reason: CONSTIPATION Lanolin (Lanolin Oint 7 Gm) 1 applic TOPICAL PRN PRN PRN Reason: DRYNESS Lorazepam (Lorazepam 2 Mg/Ml Inj 1 Ml) 1 mg IVP Q8H PRN PRN Reason: ANXIETY Last Admin: 05/06/21 11:15 Dose: 1 mg Documented by: Metoprolol Tartrate (Metoprolol Tartrate 25 Mg Tablet) 25 mg PO BID@0900,2100 PENDING SALE TO [facility] Last Admin: 05/07/21 21:06 Dose: 25 mg Documented by: Naloxone HCl (Naloxone 0.4 Mg/Ml Sdv) 0.1 mg IVP Q2M PRN PRN Reason: OPIATERV Ondansetron HCl (Ondansetron 2 Mg/Ml Sdv 2 Ml) 4 mg IVP Q8H PRN PRN Reason: vomiting, or N/V if npo Last Admin: 05/06/21 11:14 Dose: 4 mg Documented by: Quetiapine Fumarate (Quetiapine 25 Mg Tablet) 25 mg PO BEDTIME ANNIE Last Admin: 05/05/21 21:23 Dose: Not Given Documented by: Rocuronium [place] (Rocuronium 10 Mg/Ml Inj 5ml) 80 mg IVP Q1H PRN 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 Last Admin: 05/06/21 15:41 Dose: 80 mg Documented by: Senna/Docusate Sodium (Sennosides-Docusate Tablet) 2 tab PO DAILY PENDING SALE TO [facility] Last Admin: 05/07/21 09:29 Dose: 2 tab Documented by: Vitals/I&O/Wt Last Vital Signs Temp 101.3 F H 05/11/21 17:55 Pulse 108 H 05/11/21 16:35 Resp 17 05/11/21 18:20 BP 84/50 05/11/21 16:31 Pulse Ox 96 05/11/21 18:20 05/11/21 05/11/21 05/11/21 06:59 14:59 22:59 Intake Total 1003.033 / 3983.2569 377.559 / 377.559 843.767 / 1221.326 Output Total 250 / 250 Balance 983.033 / 3908.2569 377.559 / 377.559 593.767 / 971.326 Weight last 48 hrs Weight 145 lb Weight 135 lb Physical Exam Narrative: PHYSICAL EXAM: General: lying in bed, sedated and intubated. HEENT:NCAT, PERRLA, EOMI Neck: Supple Lungs: crackles on bilateral upper zones Heart: s1/s2, RRR Abd: soft, NT, ND, BS + Normoactive Extremities: No edema SUPPLY CONTROLLER: sedated and limited SUPPLY CONTROLLER exam possible. SKIN: no rash LDA: #CVC: Left IJ 05/06/2021 Urinary Catheter Management: Carroll: Cath Placed During This Visit: yes, but has since been removed by the nurse Reason for Continuing Indwelling Catheter: Accurate Measurement of Urinary Output in Critically Ill Patients Urinary Catheter Date of Insertion: 05/04/21 Urinary Catheter Time of Insertion: 14:00 Date Urinary Catheter Removed: 04/28/21 Time Urinary Catheter Discontinued: 10:30 Data : 05/11/21 03:00 05/11/21 03:00 Other Labs: Radiology Impressions Abdomen Ultrasound 04/19/21 02:25 IMPRESSION: 1. Cholelithiasis. Chest CT 04/19/21 02:25 IMPRESSION: 1. Nonspecific gallbladder distention. No calcified stones. 2. Mild retroperitoneal stranding about the pancreas, correlate with pancreatic enzymes. 3. Bilateral pulmonary infiltrates which may be seen with atypical pneumonia. Gallbladder Ultrasound 04/25/21 07:53 IMPRESSION: 1. Slightly hyperechoic liver, which can be seen with fatty infiltration or hepatocellular disease. 2. Nonspecific hepatic hypoechoic lesion adjacent to the gallbladder, which may represent fat sparing. Further evaluation with contrast enhanced abdomen MRI should be considered in the adequate clinical setting. 3. Cholelithiasis without evidence of cholecystitis. 4. Right pleural effusion. Abdomen/Pelvis CT 04/25/21 14:08 IMPRESSION: 1. Bibasilar opacities may be aspiration related, ARDS or pneumonia. 2. Possible contrast nephropathy, correlate clinically. 3. Trace ascites and mild to moderate anasarca. 4. Mild residual pancreatitis. Chest/Abdomen/Pelvis CT 05/07/21 16:58 IMPRESSION: Patchy bilateral airspace infiltrates. IMPRESSION: 1. Prominent fluid in the small bowel without dilation may reflect an enteritis in the appropriate clinical setting. 2. Small amount of nonspecific fluid in the pelvis. 3. Subcutaneous edema about the pelvis and abdomen, nonspecific. KUB X-Ray 05/10/21 10:57 IMPRESSION: Moderate gaseous distention of the colon. No small bowel dilatation. Head CT 05/10/21 11:13 IMPRESSION: 1. No CT evidence of acute intracranial pathology. 2. Additional findings, as above. Venous Duplex 05/10/21 11:13 IMPRESSION: No sonographic evidence of deep vein thrombosis. Chest X-Ray 05/11/21 08:07 IMPRESSION: 1. Low lung volumes with bilateral diffuse pneumonitis and opacifications. No progression since 05/08/2021. 2. Tip of the LEFT IJ central line appears to be within the RIGHT heart. Tip has advanced since the prior study of 05/06/2021. Recommend retracting the central line 6 to 7 cm for more optimal positioning. 3. Nasogastric and endotracheal tubes are in good position. Sinuses CT 05/11/21 13:18 IMPRESSION: 1. No CT evidence for invasive fungal sinusitis. 2. There are a few small air-fluid levels as above which can be related to the supine position and the intubation. Laboratory Results WBC 6.7 10^3/uL (4.0-10.0) 05/11/21 03:00 Corrected WBC 8.5 10^3/cmm (4.8-10.8) 04/23/21 18:20 RBC 2.97 10^6/uL (4.1-5.3) L 05/11/21 03:00 Hgb 9.2 g/dL (11.5-15.3) L 05/11/21 03:00 Hct 29.5 % (37.0-47.0) L 05/11/21 03:00 MCV 99.3 fl (81-99) H 05/11/21 03:00 MCH 31.0 pg (28.0-34.0) 05/11/21 03:00 MCHC 31.2 g/dL (30.0-36.0) 05/11/21 03:00 RDW 18.5 % (12.1-15.1) H 05/11/21 03:00 Plt Count 167 10^3/cmm (130-400) 05/11/21 03:00 MPV 11.6 fL (7.4-10.4) H 05/11/21 03:00 Neut % (Auto) 52.9 % 05/11/21 03:00 Lymph % (Auto) 30.4 % 05/11/21 03:00 [place] % (Auto) 7.5 % 05/11/21 03:00 Eos % (Auto) 6.6 % 05/11/21 03:00 Baso % (Auto) 0.7 % 05/11/21 03:00 Reticulocyte % (Auto) 4.6 % (0.5-2.0) H 05/09/21 04:12 Neut # (Auto) 3.55 10^3/uL (1.8-7.7) 05/11/21 03:00 Lymph # (Auto) 2.0 10^3/uL (0.8-4.8) 05/11/21 03:00 [place] # (Auto) 0.5 10^3/uL (0.2-0.9) 05/11/21 03:00 Eos # (Auto) 0.4 10^3/uL (0.0-0.8) 05/11/21 03:00 Baso # (Auto) 0.1 10^3/uL (0.0-0.1) 05/11/21 03:00 Nucleated RBC % (auto) 0.3 % 05/11/21 03:00 Total Counted 100 (0-100) 04/29/21 07:50 Atypical Lymphs % 5.0 % (0-5) 04/29/21 07:50 Absolute Neutrophils 7.6 10^3/cmm (1.4-6.5) H 04/29/21 07:50 Segmented Neutrophils 51 % 04/29/21 07:50 Abs Segm Neuts (Man) 7.1 10/cmm (1.6-7.1) 04/29/21 07:50 Band Neutrophils 3.0 % 04/29/21 07:50 Abs Band Neuts (Man) 0.4 10^3/cmm (0.0-1.2) 04/29/21 07:50 Absolute Lymphocytes 5.2 10^3/cmm (1.2-3.4) H 04/29/21 07:50 Lymphocytes (Manual) 32 % 04/29/21 07:50 Monocytes (Manual) 0.0 % 04/29/21 07:50 Absolute Monocytes 0.0 10^3/cmm (0.1-0.6) L 04/29/21 07:50 Eosinophils (Manual) 2 % 04/29/21 07:50 Absolute Eosinophils 0.2 10^3/cmm (0.0-0.7) 04/29/21 07:50 Basophils (Manual) 0.0 % 04/29/21 07:50 Absolute Basophils 0.0 10^3/cmm (0.0-0.2) 04/29/21 07:50 Metamyelocytes 5.0 % 04/29/21 07:50 Myelocytes 2.0 % 04/29/21 07:50 Nucleated RBCs 3.0 /100WBC (0-1) H 04/29/21 07:50 Nucleated RBCs # 0.0 /100WBC 05/11/21 03:00 Platelet Estimate Normal (Normal) 04/29/21 07:50 Hypochromasia 2+ H 04/23/21 18:20 Basophilic Stippling Trace 04/21/21 Unknown Anisocytosis Trace 04/29/21 07:50 ESR 19 mm/hr (0-15) H 05/10/21 11:50 Haptoglobin 258.0 mg/L (30-200) H 05/09/21 04:12 PT 16.40 SECONDS (12.1-14.9) H 04/19/21 03:00 INR 1.28 (0.8-1.2) H 04/19/21 03:00 APTT 36.4 SECONDS (23.9-36.7) 05/11/21 16:52 Fibrinogen 310 mg/dL (174-498) 04/19/21 03:00 Fibrin Degrad Products Pos, 10-40 ug/mL (NEG) H 04/19/21 03:00 D-Dimer 6.68 ug/mIFEU (0-0.59) H 04/21/21 03:50 Specimen Type Arterial 05/10/21 09:10 Sample Site Brachial, right 05/10/21 09:10 ABG pH 7.47 (7.35-7.45) H 05/10/21 09:10 ABG pCO2 38.5 mmHg (35-45) 05/10/21 09:10 ABG pO2 59.2 mmHg (80.0-100.0) L 05/10/21 09:10 ABG HCO3 28.3 mmol/L (22-26) H 05/10/21 09:10 ABG O2 Saturation 93.4 05/10/21 09:10 ABG Base Excess 4.4 mmol/L (-2.0-2.0) H 05/10/21 09:10 [place] Test N/a 05/10/21 09:10 A-a O2 Gradient 23.3 mmHg (5-10) H 05/10/21 09:10 Hematocrit 29.7 % (37-47) L 05/10/21 09:10 Hgb O2 Saturation 90.7 % (95-100) L 05/10/21 09:10 Carboxyhemoglobin 2.0 %THgb (0.4-20.1) 05/10/21 09:10 Methemoglobin 0.9 % (0.4-1.5) 05/10/21 09:10 Total Hemoglobin 9.7 g/dL (12-16) L 05/10/21 09:10 Sodium 142.0 mmol/L (131-143) 05/10/21 09:10 Potassium 3.2 mmol/L (3.5-5.0) L 05/10/21 09:10 Glucose 204.0 mg/dL (70-115) H 05/10/21 09:10 Ionized Calcium 1.2 mmol/L (1.1-1.4) 05/10/21 09:10 Respiration Rate 20.0 % 04/23/21 05:25 O2 Delivery Device Vent 05/10/21 09:10 Mechanical Rate 20.0 04/26/21 04:00 FiO2 40.0 % 05/10/21 09:10 Tidal Volume 0.30 05/10/21 09:10 PEEP 4.0 cmH20 05/10/21 09:10 Director Of Neurology ID Gd 05/10/21 09:10 Sodium 138 mmol/L (136-145) 05/11/21 03:00 Potassium 4.2 mmol/L (3.5-5.1) 05/11/21 03:00 Chloride 105 mmol/L (98-107) 05/11/21 03:00 Carbon Dioxide 23 mmol/L (22-29) 05/11/21 03:00 Anion Gap 14.2 (5-19) 05/11/21 03:00 BUN 34 mg/dL (6-20) H 05/11/21 03:00 Creatinine 2.5 mg/dL (0.5-0.9) H 05/11/21 03:00 GFR Calculation 21.4 mL/min (90-130) L 05/11/21 03:00 Glucose 154 mg/dL (65-115) H 05/11/21 03:00 POC Glucose 143 mg/dL (70-110) H 05/11/21 16:12 Estimat Average Glucose 134 04/18/21 22:48 Hemoglobin A1c 6.3 % (4.0-6.0) H 04/18/21 22:48 Calculated Osmolality 297 mOsm/kg (285-295) H 05/11/21 03:00 Lactic Acid 5.1 mmol/L (0.5-2.2) H* 04/20/21 03:20 Lactic Acid (Sepsis) 4.7 mmol/L (0.5-2.2) H* 04/20/21 06:47 Lactate 0.9 mmol/L (0.5-2.2) 05/06/21 07:20 Uric Acid 12.0 mg/dL (2.4-5.7) H 04/20/21 09:20 Calcium 9.6 mg/dL (8.5-10.5) 05/11/21 03:00 Phosphorus 2.2 mg/dL (2.5-4.5) L 05/11/21 03:00 Magnesium 2.0 mg/dL (1.7-2.3) 05/11/21 03:00 Iron 37 ug/dL (37-145) 04/23/21 06:20 TIBC 157 mcg/dl 04/23/21 06:20 % Saturation 23.5 % (20-50) 04/23/21 06:20 Unsat Iron Binding 120 ug/dL (112-347) 04/23/21 06:20 Ferritin 481 ng/mL (15-150) H 04/22/21 00:32 Total Bilirubin 0.7 mg/dL (0.15-1.2) 05/11/21 03:00 GGT 108 U/L (5-36) H 04/19/21 03:00 AST 66 U/L (0-32) H 05/11/21 03:00 ALT 14 U/L (0-33) 05/11/21 03:00 Alkaline Phosphatase 258 IU/L (35-105) H 05/11/21 03:00 Lactate Dehydrogenase 491 U/L (135-214) H 04/30/21 03:58 Creatine Kinase 79 U/L (26-192) 04/19/21 03:00 Troponin T Baseline 31 ng/L (0-10) H 04/20/21 16:45 Troponin T 120 Minute 31.12 ng/L (0-10) H 04/20/21 19:44 Delta Troponin T 0.12 ABS# (0-10) 04/20/21 19:44 Troponin T Hi Sens 6Hr 27.06 ng/L (0-10) H 04/21/21 03:50 Troponin T Hi Sens 6Hr Delta -3.94 ng/L (0-12) L 04/21/21 03:50 C-Reactive Protein 28.3 mg/L (0.0-4.9) H 05/10/21 11:50 Total Protein 6.1 g/dL (6.6-8.7) L 05/11/21 03:00 Albumin 2.9 g/dL (3.5-5.2) L 05/11/21 03:00 Globulin 3.2 g/dL (1.3-4.6) 05/11/21 03:00 Triglycerides 395 mg/dL (0-150) H 05/08/21 02:30 Cholesterol 322 mg/dL (0-200) H 04/19/21 03:00 LDL Cholesterol Direct 82 mg/dL (0-100) 04/28/21 09:38 LDL Cholesterol, Calc Not Reportable 04/19/21 03:00 HDL Cholesterol 12 mg/dL (60-100) L 04/19/21 03:00 LDL/HDL Ratio Not Reportable 04/19/21 03:00 Cholesterol/HDL Ratio 26.83 mg/dL (0.0-4.40) H 04/19/21 03:00 Lipase 20 U/L (13-60) 05/06/21 07:25 Vitamin B12 150 pg/mL (232-1245) L 05/09/21 04:12 25-OH Vitamin D Total 7 ng/mL (30-100) L 04/21/21 03:50 1,25 Dihydroxy Vit D2 <8 pg/mL 04/20/21 03:20 1,25 Dihydroxy Vit D3 <8 pg/mL 04/20/21 03:20 Folate 10.7 ng/mL (4.8-37.3) 05/09/21 15:57 Procalcitonin 0.43 ng/mL (0-0.5) 04/30/21 03:58 TSH 1.02 uIU/mL (0.27-4.20) 04/19/21 03:00 HCG, Qual Negative (Negative) 04/18/21 22:48 PTH Intact 274.7 pg/mL (15-65) H 04/21/21 03:50 Calcium (PTH Intact) 6.7 mg/dL (8.5-10.5) L 04/21/21 03:50 Urine Color Yellow (Yellow) 05/05/21 08:00 Urine Appearance Clear (CLEAR) 05/05/21 08:00 Urine pH 8 (5-7) H 05/05/21 08:00 Ur Specific [place] 1.005 (1.005-1.030) 05/05/21 08:00 Urine Protein Neg (Negative) 05/05/21 08:00 Urine Glucose (UA) Norm (Normal) 05/05/21 08:00 Urine Ketones Negative (Negative) 05/05/21 08:00 Urine Blood 2+ (Negative) H 05/05/21 08:00 Urine Nitrate Negative (Negative) 05/05/21 08:00 Urine Bilirubin Neg (Negative) 05/05/21 08:00 Prot Sulfosalicylic Acd Negative (Negative) 05/05/21 08:00 Urine Urobilinogen Norm mg/dL (Negative) 05/05/21 08:00 Ur Leukocyte Esterase Negative (Negative) 05/05/21 08:00 Urine RBC 0-4 /hpf (0-2) H 05/05/21 08:00 Urine WBC 10-15 /hpf (0-5) H 05/05/21 08:00 Ur Eosinophil Smear 0 (0-0) 04/19/21 05:35 Ur Squamous Epith Cells 0-4 /hpf (0-5) H 05/05/21 08:00 Amorphous Sediment Not Reportable 05/05/21 08:00 Urine Bacteria Trace /hpf (NONE) 05/05/21 08:00 Urine Eosinophils No eosinophils seen 04/19/21 05:35 Ur Random Creatinine 128 mg/dL (20-275) 04/19/21 05:35 Ur Random Albumin 46 % 04/19/21 05:35 U Random Total Protein 727 mg/dL (5-24) H 04/19/21 05:35 Ur Random Sodium 57 mmol/L 04/19/21 05:35 Ur Random Potassium 27 mmol/L 04/19/21 05:35 Ur Random Chloride 50 mmol/L 04/19/21 05:35 Urine Creatinine 139 mg/dL (28-217) 04/19/21 05:35 Protein/Creatinin Ratio 5680 mg/g creat (21-161) H 04/19/21 05:35 Protein/Creat Ratio 24h 5.680 (0.021-0.161) H 04/19/21 05:35 U Random e-2-Dxhjkvtg % 4 % 04/19/21 05:35 U Random g-2-Dhskxzxi % 12 % 04/19/21 05:35 U Random Beta Globulin 21 % 04/19/21 05:35 U Random Gamma Glob 18 % 04/19/21 05:35 U Abnormal Prot Band 1 Not Reportable 04/19/21 05:35 U Abnormal Prot Band 2 Not Reportable 04/19/21 05:35 U Abnormal Prot Band 3 Not Reportable 04/19/21 05:35 Urine PEP Interpret See note 04/19/21 05:35 Bronch Specimen Source Left lower lobe 05/08/21 08:55 Bronchial Fluid Color Slight pink 05/08/21 08:55 Bronchial Fluid Appearance Cloudy (CLEAR) 05/08/21 08:55 Bronchial Fluid WBC 808 /uL 05/08/21 08:55 Bronchial Fluid RBC 3 10^3/uL 05/08/21 08:55 Bronch Cells Counted 200 05/08/21 08:55 Bronchial Neutrophils 39.00 % (0.9-2.3) H 05/08/21 08:55 Bronchial Lymphocytes 18.00 % (10.71-12.91) H 05/08/21 08:55 Bronchial Eosinophils 0.00 % (0.13-0.25) L 05/08/21 08:55 Bronchial Macrophages 43.00 % (83.6-86.8) L 05/08/21 08:55 Bronchial Diff Comment Yes 05/08/21 08:55 Vancomycin Trough 20.5 ug/mL (10-15) H 05/11/21 03:00 Random Vancomycin 23.5 ug/mL (20.0-40.0) 05/09/21 04:17 Salicylates < 0.3 mg/dL (3-10) L 04/19/21 03:00 Acetaminophen < 5.0 ug/mL (10-30) L 04/19/21 03:00 Ethylene Glycol <10.0 mg/L () 04/19/21 03:00 Volat Analys Perform On Whole blood 04/19/21 03:00 Ethyl Alcohol < 10 mg/dL (0-10) 04/19/21 03:00 Urine Ethyl Alcohol Cancelled 04/19/21 05:35 Methyl Alcohol Level None detected mg/dL 04/19/21 03:00 Serum Ketones Negative (Negative) 04/29/21 07:50 Coronavirus 229E (PCR) Not detected (NOT DETECT) 04/19/21 05:35 Hepatitis A IgM Ab Non-reactive (Nonreactive) 04/19/21 03:00 Hep Bs Antigen Non-reactive (Nonreactive) 04/20/21 03:20 Hep Bs Antibody 3.5 (11.5-1000) L 04/20/21 03:20 Hep B Core IgM Ab Non-reactive (Nonreactive) 04/19/21 03:00 Hepatitis C Antibody Non-reactive (Nonreactive) 04/20/21 03:20 HIV 1&2 Ab & HIV 1 Ag Non-reactive (Non-Reactiv) 04/19/21 03:00 HIV 1&2 Antibody Non-reactive (Non-Reactiv) 04/19/21 03:00 Influenza Type A Ag Negative (Negative) 04/19/21 05:35 Influenza Type B Ag Negative (Negative) 04/19/21 05:35 SARS-CoV-2 (PCR) Detected (NOT DETECT) A 04/19/21 05:35 SARS-CoV-2 Ag (Rapid) Negative (Negative) 04/18/21 21:49 [employer] [facility] [employer] Test Reference See comment 04/19/21 05:35 Blood Type O Positive 05/09/21 10:22 Rho(D) Type Positive 05/09/21 10:22 Antibody Screen Negative 05/09/21 10:22 Crossmatch See Detail 05/09/21 10:22 Micro: Microbiology 05/10/21 14:45 Blood Culture - Preliminary Blood NEGATIVE TO DATE 05/07/21 22:15 Urine Culture - Final Urine Catheterized Valentin parapsilosis 05/10/21 15:15 MRSA Culture - Final Nose 05/10/21 11:50 Blood Culture - Preliminary Blood NEGATIVE TO DATE 05/10/21 15:00 Catheter Tip Culture - Preliminary Central Line 05/05/21 22:00 Blood Culture - Final Blood NO GROWTH AFTER 5 DAYS 05/05/21 21:59 Blood Culture - Final Blood NO GROWTH AFTER 5 DAYS 05/06/21 14:00 Gram Stain - Final Sputum - Endotracheal Tube Aspirate Sputum Culture - Final Trichosporon beigelii A&P Assessment and plan (1) Acute respiratory distress syndrome (ARDS) due to 2019 novel coronavirus: Status: Acute (2) COVID: Status: Acute (3) Increased anion gap metabolic acidosis: Status: Acute (4) Acute encephalopathy: Status: Acute (5) Acute pancreatitis: Status: Acute (6) Mild mental handicap: Status: Inactive (7) GODFREY (generalized anxiety disorder): Status: Inactive (8) Essential hypertension: Status: Inactive (9) Hypertriglyceridemia: Status: Inactive (10) Aspiration pneumonia: Status: Acute Plan # Acute hypoxic respiratory failure in patient with COVID-19 pneumonia and fluid overload secondary to TONY -possible ARDS and patient with COVID-19 PCR positive/pancreatitis; subsegmental PE on CT #Subsegmental PE-on heparin drip #TONY due to hypovolemia-ischemic ATN/MAMI/Covid TONY-currently on HD #Hypovolemic shock secondary to pancreatitis-currently requiring pressors only during hemodialysis #Pancreatitis secondary to hypertriglyceridemia-resolved #Generalized anxiety disorder #Persistent fevers - fungal -Intubated on 04/20/2021 night after an episode of vomiting-extubated 05/01/2021- did well on room air until 05/04/2021, unable to tolerate hemodialysis due to hypotension and tachypnea-with increasing FiO2 requirements she got reintubated 05/06/2021 -Currently on CMV/18/4/300/40% -held Seroquel 25 mg p.o. at bedtime due to suspicion for serotonin syndrome although we do not see myoclonus -- No acute events overnight. Patient has remained hemodynamically stable. on low dose pressor and plan is to taper down - Still spiking fevers ; permacath placement has been deferred due to persistent fevers. - On fentanyl 125 and precedex 1.2 - plan is to taper down fentanyl to 25 mcg/hr - minimal ventilator settings with FiO2 of 40%, tidal volume of 300 with PEEP of 4. - Sputum culture yesterday from 05/06 came back positive for Trichosporon and both urine and sputum cultures so far grew valentin paraspilosis. ID consult requested and currently started on Amphotericin B - Today electrolytes are wnl and pt on fio2 40% - urine out put is 250cc despite lasix 80mg given today am - no urgent need for HD today - will place temporary catheter in case she needs HD - as with ongoing persis tent fevers - cannot place Perma cath. - pt had Ct Head with contrast today - and no evidence of invasive fungal sinus infection - another possibility was drug fever; currently she is on zosyn and rest all antibioitcs were stopped - Other labs and imaging reviewed -Ketones negative, triglycerides 395 -hold off propofol for now -Completed remdesivir and currently on dexamethasone; received Zosyn for possible aspiration pneumonia for 5 days and later changed to imipenem until 05/03/2021 and then switched to augmentin; -S/p bronchoscopy 05/08/2021 morning- clear secretions throughout with mild erythema noted in left lower lobe-BAL Gram stain cultures negaitve; fungal cultures and PCP PCR-results pending -Continue monitoring respiratory status and saturations closely -CT angiogram subsegmental PE; bilateral venous Doppler negative for DVT-on heparin drip -Last CT abdomen pelvis 04/25/2021: Trace ascites with mild residual pancreatitis - Continue tube feeding -monitor FSBS closely - -Patient's family updated at bedside -Prognosis guarded Patient recovered from pancreatitis, hypoxic respiratory failure secondary to fluid overload while on hemodialysis-successfully extubated to room air and did well for 3 to 4 days-even started making make some urine-deteriorated respiratory hall for possible fluid overload-unfortunately did not tolerate hemodialysis and has to be reintubated also sputum growing Trichosporon and started on amphotericin; and continues to have High grade fevers; HD catheter was removed. and may need another temporary catheter placed if fevers spikes do not susbide. Family understands the plan and verbalized agreement with the plan. Recommendations conveyed to hospitalist, RN, RT taking care of the patient Attestations Medical Necessity Statement*: Hypoxic respiratory failure secondary to ARDS due to COVID-19 pneumonia/pancreatitis-fluid overload due to TONY and patient with underlying Covid pneumonia and fungal pneumonia-requiring mechanical intubation and hemodialysis Time Spent in Patient Care: Greater than 35 minutes (>than 50% of time spent in counselling and/or direct pt care on unit) . Critical Care Time: The high probability of a clinically significant, sudden or life threatening deterioration of the patient's [neurological, pulmonary, renal system(s) required my full and direct attention, intervention and personal management. The critical care time is as shown. This time is in addition to time spent performing any reported procedures but includes the following: [x] Data and vital sign review and interpretation [x] Patient assessment, examination and intervention [x] Documentation [x] Medication orders and management Critical Care Time (min): 45 Coding Level of Care Code Established Pt Acute Model Maker Fiberglass for Chg Fwd Patient Type Established History Comprehensive Exam Comprehensive Medical Decision Making High Complexity Diagnoses Acute respiratory distress syndrome (ARDS) due to 2019 novel coronavirus U07.1; J80 COVID U07.1 Increased anion gap metabolic acidosis E87.2 Acute encephalopathy G93.40 Acute pancreatitis K85.90 Mild mental handicap F70 GODFREY (generalized anxiety disorder) F41.1 Essential hypertension I10 Hypertriglyceridemia E78.1 Aspiration pneumonia J69.0 Time Spent (min) 45
--- NOTE | 2021-05-11 20:43 | PC.NURSE ---
Pt has large amount of clear, thick, oral secretions. Pt suctioned with yaunkauer.
--- NOTE | 2021-05-11 20:44 | PC.NURSE ---
Addendum entered by Yane Alvarado RN 05/11/21 20:50: Fentanyl was found to be at 80 mcg/hr, not 50 mcg/hr as charted in MAY. Original Note: Upon entering pt's room at 1845, pt found with right side of tube motley off of face. Pt was coughing persistently and gagging on the ETT. Tube motley put back in place. ETT remains at 20 cm at the lip. Fentanyl increased.
[2021-05-11 22:02] LABS: Glucose Point of Care 179 mg/dL (70-110)
[2021-05-11 23:40] LABS: Partial Thromboplastin Time 71.6 SECONDS (23.9-36.7)
[2021-05-12] VITALS (68 sets, daily range): BP systolic 81–121; BP diastolic 40–79; PULSE 97–130; RESP 19–31; TEMP 37.4–38.6; O2SAT 95–100
--- NOTE | 2021-05-12 00:26 | PC.NURSE ---
Pt resting quietly in bed with eyes closed. Lungs sound less coarse, no ronchi.
[2021-05-12] MEDS: dexmedeTOMIDine 0.9 % NaCL 400 MCG/100 ML PREMIX 21 MCG IV ×5 (00:31→21:57)
[2021-05-12] MEDS: norepinephrine 8 MG in dextrose 5 % 500 ML 3.81 MG IV (00:31)
[2021-05-12] MEDS: famotidine 20 mg/2 mL INJ IVP ×2 (01:51→15:03)
[2021-05-12] MEDS: ketorolac 30 mg/mL INJ 15 MG IVP (01:51)
[2021-05-12] MEDS: heparin drip 25,000 UNIT/500 ML PREMIX 25.33 UNIT IV (02:30)
[2021-05-12] MEDS: ipratropium-albuterol 3 mL Neb INHALATION ×5 (03:52→19:56)
[2021-05-12 05:28] LABS: Basophils % 0.4 %; Eosinophils # 0.4 10^3/uL (0.0-0.8); Eosinophils % 8.3 %; Hematocrit 23.9 % (37.0-47.0); Hemoglobin 7.4 g/dL (11.5-15.3); Lymphocytes % 18.8 %; Mean Corpuscular Hemoglobin 30.5 pg (28.0-34.0); Mean Corpuscular Volume 98.4 fl (81-99); Mean Platelet Volume 11.9 fL (7.4-10.4); Monocytes # 0.4 10^3/uL (0.2-0.9); Monocytes % 7.6 %; Neutrophils # 3.19 10^3/uL (1.8-7.7); Neutrophils % 60.4 %; Nucleated Red Blood Cells % 0.6 %; Platelet Count 141 10^3/cmm (130-400); Red Blood Count 2.43 10^6/uL (4.1-5.3); Red Cell Distribution Width 18.4 % (12.1-15.1); White Blood Count 5.3 10^3/uL (4.0-10.0)
[2021-05-12 05:45] LABS: Partial Thromboplastin Time 63.5 SECONDS (23.9-36.7)
[2021-05-12 05:49] LABS: Alanine Aminotransferase 13 U/L (0-33); Albumin Level 3.3 g/dL (3.5-5.2); Alkaline Phosphatase 174 IU/L (35-105); Anion Gap 16.8 (5-19); Aspartate Amino Transferase 57 U/L (0-32); Blood Urea Nitrogen 44 mg/dL (6-20); Calcium 9.5 mg/dL (8.5-10.5); Carbon Dioxide 20 mmol/L (22-29); Chloride 102 mmol/L (98-107); Globulin 2.7 g/dL (1.3-4.6); Glomerular Filtration Rate 16.1 mL/min (90-130); Glucose 161 mg/dL (65-115); Magnesium 2.1 mg/dL (1.7-2.3); Osmolality Calculated 295 mOsm/kg (285-295); Phosphorus 1.7 mg/dL (2.5-4.5); Potassium 3.8 mmol/L (3.5-5.1); Sodium 135 mmol/L (136-145); Total Bilirubin 1.4 mg/dL (0.15-1.2)
--- NOTE | 2021-05-12 06:00 | XR_ITS ---
WS: [id number] Exam: XR chest 1V portable [id number] Date/Time of Exam: 05/12/2021 4:25 AM Reason For Exam: central line placement Comparison 05/11/2021. Diffuse interstitial and airspace infiltrates throughout both lungs showing little change. ET tube is in place ending about 2 cm above the tracey. Left-sided IJ catheter in place appearing to be in the right atrium. NG tube is in place within the stomach but the tip is out of the [id number]. No pleu ral effusions or pneumothorax. Regional bony elements are intact. XR/XR chest 1V portable [id number] IMPRESSION: 1. ET tube has migrated inferiorly and now ends about 2 cm above the tracey. Th e tube could be retracted about 2 to 3 cm for optimal position. The lungs remai n well ventilated. 2. Diffuse interstitial and airspace infiltrates throughout both lungs unchange d. 3. Left-sided IJ catheter ending in the right atrium. Enteric tube in satisfact ory location. These findings were discussed with the patient's nurse, Uli in the ICU at 8:1 5 AM 05/12/2021.
[2021-05-12] MEDS: insulin lispro 100 unit/1 mL SUBCUT ×3 (06:15→23:29)
--- NOTE | 2021-05-12 08:06 | P.PN_ITS ---
Subjective Subjective: sedated, pressors, fevers, intubated in ICU Medications: Reviewed: Yes Medication Review Details: Current Medications Acetaminophen (Acetaminophen 325 Mg Tablet) 650 mg PO Q6H PRN PRN Reason: Mild/Mod Pain Or Temp >/= 101 Last Admin: 05/11/21 19:24 Dose: 650 mg Documented by: Albuterol/Ipratropium (Ipratropium-Albuterol 3 Ml Neb) 3 ml INHALATION Q4H.RESPIRATORY [facility] Last Admin: 05/12/21 03:52 Dose: 3 ml Documented by: Calcium Carbonate (Calcium Carbonate 500 Mg Chew Tablet) 1,000 mg PO TID [facility] Last Admin: 05/11/21 21:31 Dose: 1,000 mg Documented by: Cyanocobalamin (Cyanocobalamin 1,000 Mcg/Ml Sdv) 1,000 mcg IM DAILY [facility] Stop: 05/12/21 15:39 Last Admin: 05/11/21 09:02 Dose: 1,000 mcg Documented by: Dextrose (Dextrose 50% Syringe 50 Ml) 25 ml IVP ONCE PRN; Protocol PRN Reason: hypoglycemia protocol Last Admin: 04/20/21 00:25 Dose: 25 ml Documented by: Dextrose (Dextrose 50% Syringe 50 Ml) 50 ml IVP PRN PRN; Protocol PRN Reason: hypoglycemia protocol Last Admin: 04/19/21 20:35 Dose: 50 ml Documented by: Dextrose (Dextrose 50% Syringe 50 Ml) 25 ml IVP ONCE PRN; Protocol PRN Reason: hypoglycemia protocol Dextrose (Dextrose 50% Syringe 50 Ml) 50 ml IVP PRN PRN; Protocol PRN Reason: hypoglycemia protocol Epoetin Shubham (Epoetin Shubham 1000 Unit/0.05 Ml (Esrd)) 6,000 unit SUBCUT MoWeFr [facility] Last Admin: 05/11/21 10:46 Dose: 6,000 unit Documented by: Ergocalciferol (Ergocalciferol (Vitamin D2) 50,000 Unit Capsule) 50,000 unit PO Q7D [facility] Last Admin: 05/05/21 09:00 Dose: 50,000 unit Documented by: Famotidine (Famotidine 20 Mg/2 Ml Inj) 20 mg IVP Q12H [facility] Last Admin: 05/12/21 01:51 Dose: 20 mg Documented by: Fenofibrate (Fenofibrate 145 Mg Tablet) 145 mg PO DAILY [facility] Last Admin: 05/11/21 09:02 Dose: 145 mg Documented by: Glucagon (Glucagon 1 Mg/Ml Inj 1 Ml) 1 mg IM ONCE PRN; Protocol PRN Reason: Adult Acute Hypoglycemia Prot. Dextrose (D5w) 500 mls @ 100 mls/hr IV ONCE PRN; Protocol PRN Reason: Adult Acute Hypoglycemia Prot Heparin Sodium/Sodium Chloride (Heparin Drip) 25,000 unit in 500 mls @ 0 mls/hr IV .Q0M ANNIE; Protocol Last Admin: 05/12/21 02:30 Dose: 18 unit/kg/hr, 25.33 mls/hr Documented by: Fentanyl 2,500 mcg/ Sodium (Chloride) 250 mls @ 0 mls/hr IV .Q0M ANNIE; Protocol Last Titration: 05/11/21 20:00 Dose: 125 mcg/hr, 12.5 mls/hr Documented by: Midazolam HCl 100 mg/ Sodium (Chloride) 100 mls @ 0 mls/hr IV .Q0M ANNIE; Protocol Last Titration: 05/07/21 18:35 Dose: Infused Documented by: Norepinephrine Bitartrate 8 mg (/ Dextrose) 508 mls @ 0 mls/hr IV .Q0M ANNIE; Protocol Last Titration: 05/12/21 06:32 Dose: 2 mcg/min, 7.62 mls/hr Documented by: Albumin Human (Albumin) 12.5 gm in 50 mls @ 60 mls/hr IV PRN PRN PRN Reason: Hypotension and/or symptomatic dexmedeTOMIDine 0.9 % NaCL (Precedex) 400 mcg in 100 mls @ 0 mls/hr IV PRN PRN PRN Reason: SEDATION Last Admin: 05/12/21 06:15 Dose: 21 mls/hr Documented by: Amphotericin B 300 mg/ (Dextrose) 275 mls @ 137.5 mls/hr IV Q24H [facility] Last Infusion: 05/11/21 17:46 Dose: Infused Documented by: Piperacillin Sod/Tazobactam (Sod 3.375 gm/ Sodium Chloride) 50 mls @ 6.25 mls/hr IV Q12H [facility]; Protocol Last Infusion: 05/12/21 06:28 Dose: Infused Documented by: Albumin Human (Albumin) 25 gm in 100 mls @ 60 mls/hr IV Q8H [facility] Stop: 05/12/21 09:29 Last Infusion: 05/12/21 06:29 Dose: Infused Documented by: Insulin Human Lispro (Insulin Lispro 100 Unit/1 Ml) 0 unit SUBCUT Q6H [facility]; Protocol Last Admin: 05/12/21 06:15 Dose: 1 unit Documented by: Ketorolac Tromethamine (Ketorolac 30 Mg/Ml Inj) 15 mg IVP Q12H PRN PRN Reason: MODERATE PAIN Stop: 05/15/21 09:40 Last Admin: 05/12/21 01:51 Dose: 15 mg Documented by: Lactulose (Lactulose Oral Liq 20 Gm/30 Ml Udc) 10 gm PO DAILY [facility] Last Admin: 05/11/21 09:03 Dose: 10 gm Documented by: Lanolin (Lanolin Oint 7 Gm) 1 applic TOPICAL PRN PRN PRN Reason: DRYNESS Magnesium Hydroxide (Magnesium Hydroxide 30 Ml Udc) 30 ml PO DAILY [facility] Last Admin: 05/11/21 09:03 Dose: 30 ml Documented by: Metoprolol Tartrate (Metoprolol Tartrate 25 Mg Tablet) 25 mg PO BID@0900,2100 [facility] Last Admin: 05/11/21 21:30 Dose: 25 mg Documented by: Naloxone HCl (Naloxone 0.4 Mg/Ml Sdv) 0.1 mg IVP Q2M PRN PRN Reason: OPIATERV Ondansetron HCl (Ondansetron 2 Mg/Ml Sdv 2 Ml) 4 mg IVP Q8H PRN PRN Reason: vomiting, or N/V if npo Last Admin: 05/06/21 11:14 Dose: 4 mg Documented by: Senna/Docusate Sodium (Sennosides-Docusate Tablet) 2 tab PO DAILY [facility] Last Admin: 05/11/21 09:02 Dose: 2 tab Documented by: Vitals/I&O/Wt Last Vital Signs Temp 100.2 F H 05/12/21 05:56 Pulse 111 H 05/12/21 06:00 Resp 30 H 05/12/21 05:00 BP 82/46 05/12/21 06:00 Pulse Ox 98 05/12/21 06:00 05/11/21 05/12/21 05/12/21 22:59 06:59 14:59 Intake Total 1080.984 / 1458.543 486.224 / 1944.767 Output Total 250 / 250 75 / 325 Balance 830.984 / 1208.543 411.224 / 1619.767 Weight last 48 hrs Weight 66.587 kg Weight 65.771 kg Physical Exam Narrative: intubated, fio2=40%, TV 300, RR 18, PEEP 4 , levo @ 2 febrile tm 102.5F heent- nc/at, eomi, anicteric neck suppl lungs - dull bases b/l heart reg, +ROBERT abd soft, nt, nd, + bs ext - b/l leg edema neuro- sedated Urinary Catheter Management: Carroll: Cath Placed During This Visit: yes, but has since been removed by the nurse Reason for Continuing Indwelling Catheter: Accurate Measurement of Urinary Output in Critically Ill Patients Urinary Catheter Date of Insertion: 05/11/21 Urinary Catheter Time of Insertion: 14:00 Date Urinary Catheter Removed: 04/28/21 Time Urinary Catheter Discontinued: 10:30 Data : 05/12/21 05:15 05/12/21 05:15 Micro: Microbiology 05/10/21 14:45 Blood Culture - Preliminary Blood NEGATIVE TO DATE 05/07/21 22:15 Urine Culture - Final Urine Catheterized Valentin parapsilosis 05/10/21 15:15 MRSA Culture - Final Nose 05/10/21 11:50 Blood Culture - Preliminary Blood NEGATIVE TO DATE 05/10/21 15:00 Catheter Tip Culture - Preliminary Central Line A&P Assessment and plan (1) ATN (acute tubular necrosis): 1. Acute kidney injury Remains oligoanuric, likely secondary to acute tubular injury Last dialyzed on 05/09. -f/u cxr and ABG- to decide on HD today or hold till tomorrow Will get chest x-ray and ABG today. We will have to hold off on permacath until blood cultures return negative given her high fever. -attempt to hold HD till am Strict I's and O's Close monitoring for recovery Dose medication for GFR less than 15 on dialysis 2. Pancreatitis Secondary to hypertriglyceridemia, triglyceride levels now trending down, below 500 mgmt per medicine recheck Tgs and lipase today 3. High fever noted. Sputum culture yesterday from 05/06 came back positive for Trichosporon and both urine and sputum cultures so far grew valentin paraspilosis. ID consult requested and currently started on Amphotericin B - deferring permacath placement at this time. -recent COVID-19 4. anemia- hgb 7.4- consider prbc tx per pulm 5. replace phos Exam and interview performed with aid of bedside RN using telemedicine Time spent >30 min inc > 50% of time in face to face counseling MD Fadumo Garrido Renal Care Status: Acute Plan see above Attestations Medical Necessity Statement*: buddy, vdrf, fevers Time Spent in Patient Care: 16 - 35 minutes (>than 50% of time spent in counselling and/or direct pt care on unit) . Coding Level of Care Code Acute Decorating Machine Tender for g Fwd Diagnoses ATN (acute tubular necrosis) N17.0
[2021-05-12 08:44] LABS: ABG PCO2 35.9 mmHg (35-45); ABG PH Result 7.41 (7.35-7.45); Alveolar-Arterial Oxygen Gradi 22.2 mmHg (5-10); Arterial Blood Gas Hematocrit 27.5 % (37-47); Base Excess ABG -1.5 mmol/L (-2.0-2.0); Blood Gas Allen Test Pos; Blood Gas Operator Identificat GD; Blood Gas Sample Site Radial, left; Blood Gas Sample Type Arterial; Carboxyhemoglobin 1.7 %THgb (0.4-20.1); HCO3 ABG 22.8 mmol/L (22-26); Ionized Calcium Level - ABG 1.3 mmol/L (1.1-1.4); Oxygen Device VENT; Oxygen Saturation ABG 95.6; PO2 ABG 67.3 mmHg (80.0-100.0); Potassium Level - ABG 3.8 mmol/L (3.5-5.0)
[2021-05-12 09:03] LABS: Glucose Point of Care 133 mg/dL (70-110)
--- NOTE | 2021-05-12 09:03 | PC.NURSE ---
Nurse Received call from Dr Cox. Advised that the chest Xray indicates that the ET tube needs to be withdrawn by 2-3 CM. Nurse alerted Lorelei in Respiratory therapy for adjustment.
[2021-05-12] MEDS: sennosides-docusate Tablet 2 TAB PO (09:12)
[2021-05-12] MEDS: calcium carbonate 500 mg Chew Tablet 1000 MG PO ×3 (09:12→22:52)
[2021-05-12] MEDS: ergocalciferol (vitamin D2) 50,000 Unit Capsule 50000 UNIT PO (09:12)
[2021-05-12] MEDS: fenofibrate 145 mg Tablet PO (09:12)
[2021-05-12] MEDS: piperacillin-tazobactam 3.375 GM in sodium chloride 0.9% (plus) 50 ML 6.25 GM IV ×2 (09:12→22:52)
[2021-05-12] MEDS: cyanocobalamin 1,000 mcg/mL SDV 1000 MCG IM (09:12)
[2021-05-12] MEDS: lactulose oral liq 20 gm/30 mL UDC 10 GM PO (09:14)
[2021-05-12] MEDS: magnesium hydroxide 30 mL UDC PO (09:15)
--- NOTE | 2021-05-12 10:11 | PC.SOCIAL ---
IMM Update Pg. 2 of IMM not updated. Patient remains intubated at this time.
[2021-05-12] MEDS: morphine 4 mg/mL SDV 1 mL 1 MG IVP ×4 (11:03→22:51)
[2021-05-12] MEDS: predniSONE 20 mg Tablet 40 MG PO (11:03)
[2021-05-12 11:45] LABS: Partial Thromboplastin Time 22.7 SECONDS (23.9-36.7)
--- NOTE | 2021-05-12 12:13 | P.PN_ITS ---
Subjective Subjective: Today morning seen with family and nurse at bedside. Patient is awake on fentanyl of 100, Precedex. Patient is frowning seems to be at her baseline with occasional tears in her eyes she remains on 1-2 mics of Levophed to maintain her maps over 65. Has had persistent fevers with T-max going up to 101.9 Fahrenheit. Today morning for the first time patient's temperature has come down to 99.4 Fahrenheit. Patient continues to remain on pressure control because of high peak pressures. On examination peak pressures of 31. Heart rate running in high 100s. Plan for retracting left IJ by 5 cm as per x- ray reading. Plan for temporary dialysis catheter placement in the groin and subsequent dialysis today. Vitals/I&O/Wt Last Vital Signs Temp 99.4 F 05/12/21 08:31 Pulse 128 H 05/12/21 11:45 Resp 27 H 05/12/21 11:39 BP 93/51 05/12/21 10:00 Pulse Ox 98 05/12/21 11:39 05/11/21 05/12/21 05/12/21 22:59 06:59 14:59 Intake Total 1080.984 / 1458.543 486.224 / 1944.767 481.282 / 481.282 Output Total 250 / 250 75 / 325 0 / 0 Balance 830.984 / 1208.543 411.224 / 1619.767 481.282 / 481.282 Weight last 48 hrs Weight 66.587 kg Weight 65.771 kg Physical Exam Narrative: General: In mild distress, frowning with mild tears in the eye, awake, on sedation with fentanyl, and Precedex. HEENT: PERRLA, pupils bilaterally equal and reactive Chest: Bilateral bronchial breath sounds, coarse crackles present all over the lung dyer, diffuse rhonchi equal good air entry bilaterally CVS: S1-S2 regular, no murmurs, no tachycardia, no gallops, no rubs Abdomen: Soft, nontender, no organomegaly, bowel sounds sluggish. Neuro: Intubated, mildly sedated, frowning Urinary Catheter Management: Wynn: Cath Placed During This Visit: yes, but has since been removed by the nurse Reason for Continuing Indwelling Catheter: Accurate Measurement of Urinary Output in Critically Ill Patients Urinary Catheter Date of Insertion: 05/11/21 Urinary Catheter Time of Insertion: 14:00 Date Urinary Catheter Removed: 04/28/21 Time Urinary Catheter Discontinued: 10:30 Data : 05/12/21 05:15 05/12/21 05:15 Micro: Microbiology 05/12/21 11:00 Legionella Urinary Antigen - Final Urine,Voided 05/10/21 15:00 Catheter Tip Culture - Preliminary Central Line Yeast species 05/10/21 14:45 Blood Culture - Preliminary Blood NEGATIVE TO DATE 05/07/21 22:15 Urine Culture - Final Urine Catheterized Coco parapsilosis 05/10/21 15:15 MRSA Culture - Final Nose 05/10/21 11:50 Blood Culture - Preliminary Blood NEGATIVE TO DATE A&P Assessment and plan (1) Persistent fever: Status: Acute (2) Acute respiratory distress syndrome (ARDS) due to 2019 novel coronavirus: s/p remdisivir and steroids Status: Acute (3) ATN (acute tubular necrosis): Status: Acute (4) COVID: Status: Acute (5) Acute pancreatitis: Status: Acute (6) Acute respiratory failure requiring reintubation: Status: Acute (7) Pulmonary embolism: Status: Acute (8) Febrile illness: Status: Acute (9) Yeast detected: Status: Acute (10) Aspiration pneumonia: Status: Acute (11) B12 deficiency anemia: Status: Acute (12) Hypertriglyceridemia: Status: Inactive (13) Shock: Status: Acute Plan Patient was admitted on 04/19 for severe metabolic acidosis, hypertriglyceridemia induced pancreatitis, COVID-19 related ARDS First intubation 04/21 after an episode of vomiting while on BiPAP, developed aspiration pneumonia. Eventually extubated on 05/01 Right IJ dialysis catheter placed 04/20, She did very well between 05/01 and 05/04, she was doing well on room air, wynn removed, antibiotic switched to Augmentin, started making urine, she was able to eat, bowel movements were regular no episodes of vomiting, fever susided Hypertriglyceridemia with pancreatitis improved with insulin gtt and avoiding propofol 05/05 she developed pulmonary edema again, she got worse overnight got transferred to ICU and got intubated on 05/06 for worsening tachypnea Shock: Required minimal Levophed during dialysis. Wean off Levophed keeping mean arterial pressure over 62. Monitor urine output and saturation. Acute respiratory failure requiring intubation: Multifactorial. Most likely secondary to COVID-19, pulmonary embolism along with possible aspiration pneumonia. Patient underwent bronchoscopy on 05/08. Sputum culture from 05/06+ for trichosporon Bigelli. So far sputum culture form 04/29 positive for Coco parapalosis. Repeat MRSA swab results negative. Blood cultures from negative in 5 days. 17 so far negative. Repeat blood cultures sent on . Will request fungal blood cultures. Vancomycin DC'd on 05/10. Appreciate ID recommendations. For concern for antibiotic fevers. Continue Zosyn. We will stop post Shiley placement. CT sinuses negative for invasive fungal sinusitis. Persistent febrile episodes: Patient does have potential sources of infection as stated above. Also has pulmonary embolism. Cannot rule out febrile illness sec ondary to inflammation or antibiotic fevers versus drug fever. CT head done yesterday negative for bleed. Does not show any typical signs of meningitis. Does have sacral ulcer stage I. Wynn catheter to be changed on 05/11. Shiley removed on 05/10. CT abdomen pelvis chest done on 05/07 results appreciated. IV Tylenol as needed for fever. Toradol for possible inflammatory fevers every 12 as needed. Stop SSRIs including Seroquel on 05/11 Shiley catheter tip growing fungus. We will consult cardiology for HEDY to rule out fungal endocarditis. Check ESR, CRP, RUBEN profile, tick panel, respiratory viral panel. For pulmonary embolism: Continue heparin drip. For COVID-19. Patient is already finished treatment with remdesivir and dexamethasone. Continue weaning ventilator accordingly. DuoNebs every 6 hour, budesonide twice daily. ATN: Nephrology on board. Last dialysis on 05/09. No plan for dialysis today. Plan for placement of Shiley today. Dialysis post Shiley placement. Anemia: No active signs of bleeding. Can be multifactorial. Reticulocyte, iron panel, folate levels appreciated. Haptoglobin level good. Post 1 unit blood transfusion. Hemoglobin appropriate. Found to be vitamin B12 deficient. Continue with vitamin B12 1000 mcg IM daily for 3 days. Hypertriglyceridemia induced pancreatitis: Triglycerides finally improving. Continue with home dose of fenofibrate. Will avoid propofol. Start tube feed today Heparin drip would suffice DVT prophylaxis Full code Parents stay with her most of the time Appreciate nephrology, ID, surgical, pulmonary recommendations If unable to wean off ventilator this time possibility of tracheostomy and PEG tube placement. Family is aware. Family is also aware that patient ends up getting tracheostomy it is quite possible patient would need transfer to LTAC for further rehabitation. Family is agreeable for now. Plan of care discussed in detail with patient's family at bedside. Attestations Medical Necessity Statement*: Requires further hospitalization for septic shock, persistent febrile episodes, ATN requiring hemodialysis, respiratory failure on mechanical ventilator. Critical Care Time: The high probability of a clinically significant, sudden or life threatening deterioration of the patient's [pulmonary, ID, renal, GI system(s) required my full and direct attention, intervention and personal management. The critical care time is as shown. 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
[2021-05-12 12:16] LABS: Erythrocyte Sedimentation Rate 12 mm/hr (0-15)
--- NOTE | 2021-05-12 12:17 | PM.PN ---
Subjective Subjective: Patient continues to be in critical condition requiring pressors and intubation in the ICU. Temporary dialysis catheter was removed over the weekend with expectations the fever to subside but unfortunately it is not the case. Medications: Reviewed: Yes Vitals/I&O/Wt Last Vital Signs Temp 99.4 F 05/12/21 08:31 Pulse 128 H 05/12/21 11:45 Resp 27 H 05/12/21 11:39 BP 93/51 05/12/21 10:00 Pulse Ox 98 05/12/21 11:39 05/11/21 05/12/21 05/12/21 22:59 06:59 14:59 Intake Total 1080.984 / 1458.543 486.224 / 1944.767 481.282 / 481.282 Output Total 250 / 250 75 / 325 10 / 10 Balance 830.984 / 1208.543 411.224 / 1619.767 471.282 / 471.282 Weight last 48 hrs Weight 146 lb 12.8 oz Weight 145 lb Physical Exam Narrative: Patient remains intubated sedated BMI 29 Head and neck examination PERRLA no masses no cervical lymphadenopathy no jaundice Abdomen nontender nondistended soft no organomegaly guarding or rigidity/no signs of peritonitis Presence of Carroll catheter in place Extremities no cyanosis no clubbing no edema Exam was done in the presence of the family members and nursing staff Uli Urinary Catheter Management: Carroll: Cath Placed During This Visit: yes, but has since been removed by the nurse Reason for Continuing Indwelling Catheter: Accurate Measurement of Urinary Output in Critically Ill Patients Urinary Catheter Date of Insertion: 05/11/21 Urinary Catheter Time of Insertion: 14:00 Date Urinary Catheter Removed: 04/28/21 Time Urinary Catheter Discontinued: 10:30 Data : 05/12/21 05:15 05/12/21 05:15 Micro: Microbiology 05/12/21 11:00 Legionella Urinary Antigen - Final Urine,Voided 05/10/21 15:00 Catheter Tip Culture - Preliminary Central Line Yeast species 05/10/21 14:45 Blood Culture - Preliminary Blood NEGATIVE TO DATE 05/07/21 22:15 Urine Culture - Final Urine Catheterized Ccoo parapsilosis 05/10/21 15:15 MRSA Culture - Final Nose 05/10/21 11:50 Blood Culture - Preliminary Blood NEGATIVE TO DATE A&P Assessment and plan (1) Acute kidney injury: Plan of care; After thorough history physical examination and reviewing the chart and reviweing the images with my personal intrepretation.I counseled the patient's familyfor non-tunneled hemodialysis catheter placement, indications, risks including possibility of , stroke, heart attack, major bleeding, infection, pneumonia, organ failure, failure to benefit, prolonged hospital stay, pain after the procedure pneumothorax that may require Chest tube(s) placement and potential injury of major vascular structures that may require Thoractomy, benefits,indications and alternatives were all discussed with the patient's family, patient's family understands and is interested to proceed. Rationale was carefully and clearly discussed with the patient.Appropriate informed consent have been reviewed and signed. Status: Acute Attestations Medical Necessity Statement*: Per admitting service Coding Level of Care Code Acute Pot Fluxer for [facility] Fwd Diagnoses Acute kidney injury N17.9
[2021-05-12 12:31] LABS: C Reactive Protein 25.8 mg/L (0.0-4.9)
[2021-05-12] MEDS: metoprolol tartrate 25 mg Tablet PO ×2 (12:35→22:52)
--- NOTE | 2021-05-12 13:28 | PM.ACPR ---
Procedure/Consent Time out: Time Out Performed: Yes Consent: Consent for Procedure: Consent obtained from other (indicate) (From the mother), Risks & Benefits reviewed and Agrees to proceed with procedure Procedure Narrative: Preprocedure diagnoses acute renal failure and fluid overload Postprocedure diagnosis the same procedure done;?1-placement of 12 Australian temporary dialysis catheter,16 cm length right femoral vein ? 8-[id number] placement of temporary dialysis catheter Medications were reviewed to assess for anticoagulant usage.? Risks and benefits and prevention of central line associated blood stream infection (CLABSI) were discussed with the patient/CPOA, and a consent was obtained.? Monitors were in place and monitored throughout the procedure. All necessary supplies were available prior to start.? Hand hygiene was completed prior to starting.? Maximum barrier technique was utilized including a sterile gown, sterile gloves with a hat and mask.? Site was was prepped with [chlorhexidine] and a full body drape was placed. 5 mL of 2% lidocaine was injected into the skin with a 25 gauge needle. Description Local anesthetic in the form of 1% lidocaine infiltrated at the site of insertion of the catheter Prep& drape was done under the usual sterile technique of both groins, lidocaine 1% was injected at the site of the stick, started by right femoral vein stick that retrieved venous blood was obtained from the first stick that was done under ultrasound guidance with my personal interpretation there was no intraluminal thrombosis. ?A guidewire was then threaded, at that point the guidewire was secured to the drapes with a hemostat and the needle was taken out, followed by that serial dilators ,the dilator was then taken out, glide wire maintained to be in good position and the hemodialysis catheter 12 Australian was introduced onto the guidewire, with venous and arterial hubs were flushed and retrieved venous blood without difficulty. The catheter was secured to the skin using 3-0 silk and a Biopatch was applied. ?Hep-Lock's were then applied Patient tolerated the procedure well I Was present for the whole entire procedure TUNNELED:(NO) IMAGING UTILIZED:~ [Ultrasound guided approach/and interpretation of images done by me through the procedure] [id number] Operator: electrical engineering technologist Tommy Circulating nurse ICU [facility] ANESTHESIA:? [Local lidocaine 1%] patient was already intubated sedated on mechanical ventilation REASON FOR PLACEMENT:? [Acute kidney injury] No specimens Acute Procedures Epistaxis Control: Time out performed: Yes
--- NOTE | 2021-05-12 13:35 | XR_ITS ---
WS: [id number] Exam: XR pelvis 1-2V* [id number] Date/Time of Exam: 05/12/2021 1:47 PM Reason For Exam: Dialysis catherter placement verification A double lumen dialysis catheter is seen in the right femoral region. The tip of the catheter superim poses the right SI joint. No pelvic fracture noted. XR/XR pelvis 1-2V* [id number] IMPRESSION: 1. Right femoral double lumen vascular catheter in place. The tip ending near t he superior aspect of the right SI joint. The pelvis is otherwise intact.
--- NOTE | 2021-05-12 14:15 | PC.NURSE ---
Nurse assisted Dr rhodes with right femoral dialysis catheter placement. Procedure was uneventful. X ray obtained
[2021-05-12 15:49] LABS: Adenovirus Not Detected (NOT DETECT); Chlamydia Pneumoniae Not Detected (NOT DETECT); Coronavirus 229E,HKU1,NL63,OC4 Not Detected (NOT DETECT); Human Metapneumovirus Not Detected (NOT DETECT); Human Rhinovirus/Enterovirus Not Detected (NOT DETECT); Influenza A Not Detected (NOT DETECT); Influenza A H1 Not Detected (NOT DETECT); Influenza A H1-2009 Not Detected (NOT DETECT); Influenza A H3 Not Detected (NOT DETECT); Influenza B Not Detected (NOT DETECT); Mycoplasma Pneumoniae Not Detected (NOT DETECT); Parainfluenza Virus Type 1 Not Detected (NOT DETECT); Parainfluenza Virus Type 2 Not Detected (NOT DETECT); Parainfluenza Virus Type 3 Not Detected (NOT DETECT); Parainfluenza Virus Type 4 Not Detected (NOT DETECT); Respiratory Syncytial Virus A Not Detected (NOT DETECT); Respiratory Syncytial Virus B Not Detected (NOT DETECT); SARS-COV-2 Not Detected (NOT DETECT)
[2021-05-12] MEDS: lidocaine 2% INJ 20 mL INJECTION (17:11)
--- NOTE | 2021-05-12 18:25 | PC.NURSE ---
NUrse assisted Dr hathaway with retracting and re-suturing Central line. Too far advanced. Sterile technique used. new central line dressing applied.
--- NOTE | 2021-05-12 18:26 | PC.NURSE ---
SHift SUmmary: Overall, uneventful shift. Patient rested in bed throughout the day. New hemodialysis catheter was inserted to right groin by dr rhodes. Procedure was uneventful. Dialysis is planned for later tonight. HEDY is planned for tommorow at 0730. Heparin needs to be turned off at 0330, and tube feeds need to be discontinued at midnight.
[2021-05-12 18:29] LABS: Glucose Point of Care 261 mg/dL (70-110)
--- NOTE | 2021-05-12 18:41 | P.CONIM_ITS ---
Providers/Reason For Consult Consulting Physician/Specialty*: Dr. BINDU Guerrero/cardiology Reason for Consult*: Patient with persistent high fever, yeast species growing from the catheter tube, endotracheal rash and urine, rule out endocarditis Requesting Physician: Dr. Pan Attending Physician: Pratik Downs MD Primary Care Provider: Colten Glaser MD History of Present Illness History of Present Illness Precious Mckeon is a 40 year old female is admitted to the hospital with fever, encephalopathy, acute kidney injury and respiratory failure. She has been having persistent fever. She was treated with multiple antibiotics. The hemodialysis catheter tip grew yeast species. Endotracheal aspirations and the urine also grew fungi. Patient continues to have fever. Cardiology is consulted to perform a HEDY to evaluate for fungal endocarditis. Patient has no history of dysphagia. No recent bleeding ulcers or hematemesis. She is currently intubated. She has a history of mental retardation. Patient sister was at the bedside during my examination. She was started on tube feeding today. Review of Systems General: Reports: ROS unobtainable due to endotracheal tube Const: Reports: fever(s) (Has persistent fever) Card: Reports: other (No history for any cardiac illness, as per the family) Resp: Reports: other (COVID-19 pneumonia and also had PE) : Reports: sexual dysfunction (She had features of acute kidney injury. On hemodialysis.) Neuro: Reports: other (Admitted with features of encephalopathy) Medications/Allergies Home Medications Medication Instructions Recorded Confirmed Last Taken Type norgestimate-ethinyl estradiol 1 tab PO DAILY #84 tab 01/14/21 04/19/21 Unknown Rx 0.18 mg/0.215mg/0.25mg-35 mcg(28)tablet (Tri-Linyah) metformin 1,000 mg tablet 1,000 mg PO BID #180 tab 01/29/21 04/19/21 Unknown Rx duloxetine 60 mg capsule,delayed 60 mg PO DAILY #90 cap 01/30/21 04/19/21 Unknow n Rx release fenofibrate nanocrystallized 145 145 mg PO DAILY #90 tab 01/30/21 04/19/21 Unkn own Rx mg tablet metoprolol succinate 50 mg 50 mg PO DAILY #90 tab 01/30/21 04/19/21 Unknown Rx tablet,extended release 24 hr (Toprol XL) spironolactone 50 mg tablet 50 mg PO BID #180 tab 01/30/21 04/19/21 Unknown Rx hydrochlorothiazide 25 mg tablet 25 mg PO DAILY #90 tab 02/26/21 04/19/21 Unknown Rx ondansetron 4 mg disintegrating 4 mg PO Q8H PRN #20 tab 04/17/21 04/19/21 Unknown Rx tablet Allergies Allergy/AdvReac Type Severity Reaction Status Date / Time No Known Allergies Allergy Verified 04/20/21 13:09 Current Medications Generic Name Dose Route Start Last Admin Trade Name Cliff PRN Reason Stop Dose Admin Acetaminophen 650 mg 04/19/21 02:25 05/11/21 19:24 Acetaminophen 325 Mg Tablet PO 650 mg Q6H PRN Administration Mild/Mod Pain Or Temp >/= 101 Albuterol/Ipratropium 3 ml 04/25/21 12:00 05/12/21 15:46 Ipratropium-Albuterol 3 Ml Neb INHALATION 3 ml Q4H.RESPIRATORY ANNIE Administration Calcium Carbonate 1,000 mg 04/21/21 09:00 05/12/21 15:03 Calcium Carbonate 500 Mg Chew Tablet PO 1,000 mg TID ANNIE Administration Dextrose 25 ml 04/19/21 02:25 04/20/21 00:25 Dextrose 50% Syringe 50 Ml IVP 25 ml ONCE PRN Administration hypoglycemia protocol Protocol Dextrose 50 ml 04/19/21 02:25 04/19/21 20:35 Dextrose 50% Syringe 50 Ml IVP 50 ml PRN PRN Administration hypoglycemia protocol Protocol Epoetin Shubham 6,000 unit 05/11/21 09:00 05/11/21 10:46 Epoetin Shubham 1000 Unit/0.05 Ml (Esrd) SUBCUT 6,000 unit MoWeFr ANNIE Administration Ergocalciferol 50,000 unit 04/21/21 07:45 05/12/21 09:12 Ergocalciferol (Vitamin D2) 50,000 Unit Capsule PO 50,000 unit Q7D ANNIE Administration Famotidine 20 mg 04/19/21 02:25 05/12/21 15:03 Famotidine 20 Mg/2 Ml Inj IVP 20 mg Q12H ANNIE Administration Fenofibrate 145 mg 04/22/21 09:00 05/12/21 09:12 Fenofibrate 145 Mg Tablet PO 145 mg DAILY ANNIE Administration Heparin Sodium/Sodium Chloride 25,000 unit in 500 mls @ 0 mls/hr 05/05/21 17:45 05/12/21 15:29 Heparin Drip IV 18 unit/kg/hr .Q0M ANNIE 25.33 mls/hr Titration Protocol Per Protocol Fentanyl 2,500 mcg/ Sodium 250 mls @ 0 mls/hr 05/06/21 11:30 05/12/21 10:59 Chloride IV 125 mcg/hr .Q0M ANNIE 12.5 mls/hr Administration Protocol Per Protocol Norepinephrine Bitartrate 8 mg 508 mls @ 0 mls/hr 05/06/21 13:15 05/12/21 06:32 / Dextrose IV 2 mcg/min .Q0M ANNIE 7.62 mls/hr Titration Protocol Per Protocol dexmedeTOMIDine 0.9 % NaCL 400 mcg in 100 mls @ 0 mls/hr 05/09/21 19:19 05/12/21 17:11 Precedex IV 21 mls/hr PRN PRN Administration SEDATION Per Protocol Amphotericin B 300 mg/ 275 mls @ 137.5 mls/hr 05/11/21 14:00 05/12/21 16:17 Dextrose IV 137.5 mls/hr Q24H ANNIE Administration Piperacillin Sod/Tazobactam 50 mls @ 6.25 mls/hr 05/11/21 08:30 05/12/21 09:12 Sod 3.375 gm/ Sodium Chloride IV 6.25 mls/hr Q12H ANNIE Administration Protocol Insulin Human Lispro 0 unit 05/08/21 10:55 05/12/21 18:08 Insulin Lispro 100 Unit/1 Ml SUBCUT 6 unit Q6H ANNIE Administration Protocol Lactulose 10 gm 05/09/21 10:30 05/12/21 09:14 Lactulose Oral Liq 20 Gm/30 Ml Udc PO 10 gm DAILY ANNIE Administration Magnesium Hydroxide 30 ml 05/09/21 10:20 05/12/21 09:15 Magnesium Hydroxide 30 Ml Udc PO 30 ml DAILY ANNIE Administration Metoprolol Tartrate 25 mg 05/06/21 21:00 05/12/21 12:35 Metoprolol Tartrate 25 Mg Tablet PO 25 mg BID@0900,2100 ANNIE Administration Morphine Sulfate 1 mg 05/12/21 10:45 05/12/21 15:03 Morphine 4 Mg/Ml Sdv 1 Ml IVP 1 mg Q4H NANIE Administration Ondansetron HCl 4 mg 04/19/21 02:25 05/06/21 11:14 Ondansetron 2 Mg/Ml Sdv 2 Ml IVP 4 mg Q8H PRN Administration vomiting, or N/V if npo Prednisone 40 mg 05/12/21 09:00 05/12/21 11:03 Prednisone 20 Mg Tablet PO 40 mg DAILY ANNIE Administration Senna/Docusate Sodium 2 tab 04/22/21 09:00 05/12/21 09:12 Sennosides-Docusate Tablet PO 2 tab DAILY ANNIE Administration PFSH Acute PFSH: Medical History Acute respiratory distress syndrome (ARDS) due to 2019 novel coronavirus ATN (acute tubular necrosis) B12 deficiency anemia COVID Essential hypertension GODFREY (generalized anxiety disorder) Hypertriglyceridemia Mild mental handicap No pertinent family history PCOS (polycystic ovarian syndrome) Pulmonary embolism Yeast detected Coco parapsilosis 04/29, endotracheal aspirate Surgical History No pertinent past surgical history Family History Father Cancer Social History Smoking and tobacco status: never smoked Alcohol intake: never History of recent travel: No Female Reproductive History: Date of last menstrual period: 04/09/21 Vitals/I&O/Wt Last Vital Signs Temp 99.3 F 05/12/21 18:00 Pulse 110 H 05/12/21 18:00 Resp 24 H 05/12/21 18:00 BP 114/75 05/12/21 18:00 Pulse Ox 99 05/12/21 18:00 05/12/21 05/12/21 05/12/21 06:59 14:59 22:59 Intake Total 486.224 / 1944.767 481.282 / 481.282 100 / 581.282 Output Total 75 / 325 10 50 / 60 Balance 411.224 / 1619.767 471.282 / 471.282 50 / 521.282 Weight last 48 hrs Weight 146 lb 12.8 oz Weight 145 lb Physical Exam Narrative: Patient is somewhat drowsy. She is on a ventilator. Minimal pallor. No icterus. No lymphadenopathy. Presence of air bilaterally. Scattered coarse crackles. Heart sounds are normal. No S3. No pericardial rub. Abdomen slightly distended with no tenderness. No organomegaly. Extremities no edema or cyanosis. Urinary Catheter Management: Carroll: Cath Placed During This Visit: yes, but has since been removed by the nurse Reason for Continuing Indwelling Catheter: Accurate Measurement of Urinary Output in Critically Ill Patients Urinary Catheter Date of Insertion: 05/11/21 Urinary Catheter Time of Insertion: 14:00 Date Urinary Catheter Removed: 04/28/21 Time Urinary Catheter Discontinued: 10:30 Data : 05/12/21 05:15 05/12/21 05:15 Micro: Microbiology 05/08/21 08:55 Fungal Smear - Preliminary Sputum - Endotracheal Wash 05/12/21 11:00 Legionella Urinary Antigen - Final Urine,Voided 05/10/21 15:00 Catheter Tip Culture - Preliminary Central Line Yeast species 05/10/21 14:45 Blood Culture - Preliminary Blood NEGATIVE TO DATE 05/07/21 22:15 Urine Culture - Final Urine Catheterized Coco parapsilosis 05/10/21 15:15 MRSA Culture - Final Nose Echo: My impression: The echocardiogram was a suboptimal quality. LV ejection fraction appeared to be normal. No other abnormalities were detected. EKG 1: Protective Signal Operations Supervisor Interpretation: Sinus tachycardia with low voltage complexes in the limb leads. No acute ST-T changes. EKG computer-generated impression: Abdomen Ultrasound 04/19/21 02:25 IMPRESSION: 1. Cholelithiasis. Chest CT 04/19/21 02:25 IMPRESSION: 1. Nonspecific gallbladder distention. No calcified stones. 2. Mild retroperitoneal stranding about the pancreas, correlate with pancreatic enzymes. 3. Bilateral pulmonary infiltrates which may be seen with atypical pneumonia. Gallbladder Ultrasound 04/25/21 07:53 IMPRESSION: 1. Slightly hyperechoic liver, which can be seen with fatty infiltration or hepatocellular disease. 2. Nonspecific hepatic hypoechoic lesion adjacent to the gallbladder, which may represent fat sparing. Further evaluation with contrast enhanced abdomen MRI should be considered in the adequate clinical setting. 3. Cholelithiasis without evidence of cholecystitis. 4. Right pleural effusion. Abdomen/Pelvis CT 04/25/21 14:08 IMPRESSION: 1. Bibasilar opacities may be aspiration related, ARDS or pneumonia. 2. Possible contrast nephropathy, correlate clinically. 3. Trace ascites and mild to moderate anasarca. 4. Mild residual pancreatitis. Chest/Abdomen/Pelvis CT 05/07/21 16:58 IMPRESSION: Patchy bilateral airspace infiltrates. IMPRESSION: 1. Prominent fluid in the small bowel without dilation may reflect an enteritis in the appropriate clinical setting. 2. Small amount of nonspecific fluid in the pelvis. 3. Subcutaneous edema about the pelvis and abdomen, nonspecific. KUB X-Ray 05/10/21 10:57 IMPRESSION: Moderate gaseous distention of the colon. No small bowel dilatation. Head CT 05/10/21 11:13 IMPRESSION: 1. No CT evidence of acute intracranial pathology. 2. Additional findings, as above. Venous Duplex 05/10/21 11:13 IMPRESSION: No sonographic evidence of deep vein thrombosis. Sinuses CT 05/11/21 13:18 IMPRESSION: 1. No CT evidence for invasive fungal sinusitis. 2. There are a few small air-fluid levels as above which can be related to the supine position and the intubation. Chest X-Ray 05/12/21 06:00 IMPRESSION: 1. ET tube has migrated inferiorly and now ends about 2 cm above the tracey. The tube could be retracted about 2 to 3 cm for optimal position. The lungs remain well ventilated. 2. Diffuse interstitial and airspace infiltrates throughout both lungs unchanged. 3. Left-sided IJ catheter ending in the right atrium. Enteric tube in satisfactory location. These findings were discussed with the patient's nurse, Uli in the ICU at 8:15 AM 05/12/2021. Pelvis X-Ray 05/12/21 13:35 IMPRESSION: 1. Right femoral double lumen vascular catheter in place. The tip ending near the superior aspect of the right SI joint. The pelvis is otherwise intact. A&P Assessment and plan (1) Persistent fever: Patient has fungal growth from multiple sites. Possibility of fungal endocarditis is a consideration. For further evaluation, HEDY would be appropriate. Status: Acute (2) Yeast detected: The dialysis catheter tip, endotracheal aspirations and the urine grew fungi Status: Acute (3) Acute respiratory failure requiring reintubation: Patient is currently intubated. Status: Acute (4) ATN (acute tubular necrosis): Patient is on hemodialysis. Status: Acute Plan I discussed with the patient and the patient's sister who was at the bedside about HEDY, its indication. Possible complications with this procedure were discussed in detail. Possibility of aspiration, soft tissue injury, esophageal/gastric rupture and other concomitant complications were explained in detail. This is understood well by the family. They wanted me to go ahead with the procedure. Procedure is going to be scheduled for tomorrow morning. She wi ll be kept n.p.o. after midnight. The heparin will be held for 4 hours prior to the procedure. Based on the HEDY findings, further recommendations will be made. Coding Level of Care Code Acute Handle Machine Operator for Chg Fwd History Expanded Problem Focused Exam Expanded Problem Focused Medical Decision Making Low Complexity Diagnoses Persistent fever R50.9 Yeast detected B37.9 Acute respiratory failure requiring reintubation J96.00 ATN (acute tubular necrosis) N17.0
--- NOTE | 2021-05-12 20:38 | PC.NURSE ---
Levophed increased to 2 mcg/min from 1 mcg/min. MAR did not reflect that Levophed had been decreased to 1 mcg/min.
[2021-05-12] MEDS: heparin, porcine 1,000 unit/mL INJ 10 mL 10000 UNIT HE (21:50)
--- NOTE | 2021-05-12 22:33 | PC.NURSE ---
Dialysis in progress.
[2021-05-12 23:09] LABS: Glucose Point of Care 236 mg/dL (70-110)
[2021-05-12 23:41] LABS: Partial Thromboplastin Time 229.4 SECONDS (23.9-36.7)
[2021-05-13] VITALS (74 sets, daily range): BP systolic 84–136; BP diastolic 53–98; PULSE 75–117; RESP 18–30; TEMP 36.7–37.7; O2SAT 93–100
[2021-05-13] MEDS: ipratropium-albuterol 3 mL Neb INHALATION ×6 (00:02→20:18)
[2021-05-13 00:48] LABS: P. Jirovecii DNA QL PCR NOT DETECTED
[2021-05-13] MEDS: norepinephrine 8 MG in dextrose 5 % 500 ML 3.81 MG IV (00:48)
[2021-05-13] MEDS: famotidine 20 mg/2 mL INJ IVP ×2 (02:42→14:36)
[2021-05-13] MEDS: morphine 4 mg/mL SDV 1 mL 1 MG IVP ×6 (02:42→22:16)
[2021-05-13] MEDS: dexmedeTOMIDine 0.9 % NaCL 400 MCG/100 ML PREMIX 21 MCG IV ×4 (02:50→23:18)
[2021-05-13 04:10] LABS: Partial Thromboplastin Time 36.5 SECONDS (23.9-36.7)
[2021-05-13 04:53] LABS: Alanine Aminotransferase 9 U/L (0-33); Albumin Level 3.4 g/dL (3.5-5.2); Alkaline Phosphatase 197 IU/L (35-105); Anion Gap 17.7 (5-19); Aspartate Amino Transferase 46 U/L (0-32); Blood Urea Nitrogen 52 mg/dL (6-20); Calcium 9.7 mg/dL (8.5-10.5); Carbon Dioxide 20 mmol/L (22-29); Chloride 101 mmol/L (98-107); Globulin 3.1 g/dL (1.3-4.6); Glomerular Filtration Rate 12.5 mL/min (90-130); Glucose 195 mg/dL (65-115); Magnesium 2.4 mg/dL (1.7-2.3); Osmolality Calculated 297 mOsm/kg (285-295); Phosphorus 2.1 mg/dL (2.5-4.5); Potassium 4.7 mmol/L (3.5-5.1); Sodium 134 mmol/L (136-145); Total Bilirubin 1.2 mg/dL (0.15-1.2); Total Protein 6.5 g/dL (6.6-8.7); Triglycerides 431 mg/dL (0-150)
[2021-05-13 05:10] LABS: Ferritin 1118 ng/mL (15-150)
[2021-05-13 05:15] LABS: LDL Cholesterol Direct 24 mg/dL (0-100)
--- NOTE | 2021-05-13 07:00 | USCV_ITS ---
Precious Mckeon Age: 40 Gender: F : 1980 Exam Date: 05/13/2021 07:36 Ordering Phys: Alka Colon MD Technologist: [place] Exam Location: [facility] – [place] Indication: BP: / HR: Rhythm: Sinus Technical Quality: Adequate MEASUREMENTS (Male / Female) Normal Values Medications IV Versed, a total of 5 mg Complications None Proc. Components The HEDY probe was passed into the posterior pharynx , mid- esophagus, distal esophagus, and gastric fundus. HEDY was performed at multiple levels. The patient tolerated the procedure well and there were no complications. FINDINGS Left Ventricle The left ventricle is of normal size with no intracardiac masses. No significant wall motion abnormalities. Right Ventricle The right ventricle is normal in size and function. Right Atrium The right atrium is normal in size. Left Atrium The left atrium is normal in size. LA Appendage Normal size and good contractility. IA Septum Intact with no evidence of any intracardiac shunt by color-flow Doppler examination Mitral Valve No masses or vegetations were noted.trace mitral valve regurgitation. Aortic Valve No masses or vegetations were noted Tricuspid Valve No masses or vegetations were noted Pulmonic Valve Structurally normal pulmonic valve without significant stenosis. There is no pulmonic regurgitation. Pericardium Normal pericardium without effusion. Aorta Normal ascending aorta dimension. CONCLUSIONS The left ventricle is of normal size with no intracardiac masses. Trace mitral valve regurgitation. Catheter was noted in the superior vena cava with the no mass lesions. No signs of vegetations on the valves . no intracardiac shunts by color flow Doppler examination. Ascending aorta is of normal size. Normal left atrial size and contractility Dr Meek Guerrero MD [facility] (Electronically Signed) Final Date: 13 May 2021 17:33 S
--- NOTE | 2021-05-13 07:41 | PM.PN ---
Subjective Subjective: more awake. remains intubated. remains febrile. Medications: Reviewed: Yes Medication Review Details: Current Medications Acetaminophen (Acetaminophen 325 Mg Tablet) 650 mg PO Q6H PRN PRN Reason: Mild/Mod Pain Or Temp >/= 101 Last Admin: 05/11/21 19:24 Dose: 650 mg Documented by: Albuterol/Ipratropium (Ipratropium-Albuterol 3 Ml Neb) 3 ml INHALATION Q4H.RESPIRATORY [facility] Last Admin: 05/13/21 03:54 Dose: 3 ml Documented by: Calcium Carbonate (Calcium Carbonate 500 Mg Chew Tablet) 1,000 mg PO TID [facility] Last Admin: 05/12/21 22:52 Dose: 1,000 mg Documented by: Dextrose (Dextrose 50% Syringe 50 Ml) 25 ml IVP ONCE PRN; Protocol PRN Reason: hypoglycemia protocol Last Admin: 04/20/21 00:25 Dose: 25 ml Documented by: Dextrose (Dextrose 50% Syringe 50 Ml) 50 ml IVP PRN PRN; Protocol PRN Reason: hypoglycemia protocol Last Admin: 04/19/21 20:35 Dose: 50 ml Documented by: Dextrose (Dextrose 50% Syringe 50 Ml) 25 ml IVP ONCE PRN; Protocol PRN Reason: hypoglycemia protocol Dextrose (Dextrose 50% Syringe 50 Ml) 50 ml IVP PRN PRN; Protocol PRN Reason: hypoglycemia protocol Epoetin Shubham (Epoetin Shubham 1000 Unit/0.05 Ml (Esrd)) 6,000 unit SUBCUT MoWeFr [facility] Last Admin: 05/11/21 10:46 Dose: 6,000 unit Documented by: Ergocalciferol (Ergocalciferol (Vitamin D2) 50,000 Unit Capsule) 50,000 unit PO Q7D [facility] Last Admin: 05/12/21 09:12 Dose: 50,000 unit Documented by: Famotidine (Famotidine 20 Mg/2 Ml Inj) 20 mg IVP Q12H [facility] Last Admin: 05/13/21 02:42 Dose: 20 mg Documented by: Fenofibrate (Fenofibrate 145 Mg Tablet) 145 mg PO DAILY [facility] Last Admin: 05/12/21 09:12 Dose: 145 mg Documented by: Glucagon (Glucagon 1 Mg/Ml Inj 1 Ml) 1 mg IM ONCE PRN; Protocol PRN Reason: Adult Acute Hypoglycemia Prot. Dextrose (D5w) 500 mls @ 100 mls/hr IV ONCE PRN; Protocol PRN Reason: Adult Acute Hypoglycemia Prot Fentanyl 2,500 mcg/ Sodium (Chloride) 250 mls @ 0 mls/hr IV .Q0M ANNIE; Protocol Last Admin: 05/12/21 10:59 Dose: 125 mcg/hr, 12.5 mls/hr Documented by: Norepinephrine Bitartrate 8 mg (/ Dextrose) 508 mls @ 0 mls/hr IV .Q0M ANNIE; Protocol Last Titration: 05/13/21 02:45 Dose: 0 mcg/min, 0 mls/hr Documented by: Albumin Human (Albumin) 12.5 gm in 50 mls @ 60 mls/hr IV PRN PRN PRN Reason: Hypotension and/or symptomatic dexmedeTOMIDine 0.9 % NaCL (Precedex) 400 mcg in 100 mls @ 0 mls/hr IV PRN PRN PRN Reason: SEDATION Last Admin: 05/13/21 02:50 Dose: 21 mls/hr Documented by: Amphotericin B 300 mg/ (Dextrose) 275 mls @ 137.5 mls/hr IV Q24H [facility] Last Infusion: 05/13/21 02:51 Dose: Infused Documented by: Piperacillin Sod/Tazobactam (Sod 3.375 gm/ Sodium Chloride) 50 mls @ 6.25 mls/hr IV Q12H [facility]; Protocol Last Admin: 05/12/21 22:52 Dose: 6.25 mls/hr Documented by: Albumin Human (Albumin) 12.5 gm in 50 mls @ 60 mls/hr IV PRN PRN PRN Reason: Hypotension and/or symptomatic Insulin Human Lispro (Insulin Lispro 100 Unit/1 Ml) 0 unit SUBCUT Q6H ANNIE; Protocol Last Admin: 05/12/21 23:29 Dose: 6 unit Documented by: Lactulose (Lactulose Oral Liq 20 Gm/30 Ml Udc) 10 gm PO DAILY ANNIE Last Admin: 05/12/21 09:14 Dose: 10 gm Documented by: Lanolin (Lanolin Oint 7 Gm) 1 applic TOPICAL PRN PRN PRN Reason: DRYNESS Magnesium Hydroxide (Magnesium Hydroxide 30 Ml Udc) 30 ml PO DAILY ANNIE Last Admin: 05/12/21 09:15 Dose: 30 ml Documented by: Metoprolol Tartrate (Metoprolol Tartrate 25 Mg Tablet) 25 mg PO BID@0900,2100 [facility] Last Admin: 05/12/21 22:52 Dose: 25 mg Documented by: Morphine Sulfate (Morphine 4 Mg/Ml Sdv 1 Ml) 1 mg IVP Q4H [facility] Last Admin: 05/13/21 02:42 Dose: 1 mg Documented by: Naloxone HCl (Naloxone 0.4 Mg/Ml Sdv) 0.1 mg IVP Q2M PRN PRN Reason: OPIATERV Ondansetron HCl (Ondansetron 2 Mg/Ml Sdv 2 Ml) 4 mg IVP Q8H PRN PRN Reason: vomiting, or N/V if npo Last Admin: 05/06/21 11:14 Dose: 4 mg Documented by: Prednisone (Prednisone 20 Mg Tablet) 40 mg PO DAILY [facility] Last Admin: 05/12/21 11:03 Dose: 40 mg Documented by: Senna/Docusate Sodium (Sennosides-Docusate Tablet) 2 tab PO DAILY [facility] Last Admin: 05/12/21 09:12 Dose: 2 tab Documented by: Vitals/I&O/Wt Last Vital Signs Temp 99.4 F 05/13/21 00:00 Pulse 108 H 05/13/21 06:31 Resp 24 H 05/13/21 06:09 BP 92/68 05/13/21 06:31 Pulse Ox 98 05/13/21 06:31 05/12/21 05/13/21 05/13/21 22:59 06:59 14:59 Intake Total 357.442 / 838.724 620.105 / 1458.829 Output Total 50 / 60 125 / 185 Balance 307.442 / 778.724 495.105 / 1273.829 Weight last 48 hrs Weight 66.224 kg Weight 66.587 kg Physical Exam Narrative: intubated, fio2=40%, TV 300, RR 18, PEEP 4 , levo off febrile tm 102.5F heent- nc/at, eomi, anicteric neck supple lungs - dull bases dec crackles b/l heart reg, +ROBERT abd soft, nt, nd, + bs ext - RLE edema, left leg no edema neuro- sedated Urinary Catheter Management: Carroll: Cath Placed During This Visit: yes, but has since been removed by the nurse Reason for Continuing Indwelling Catheter: Accurate Measurement of Urinary Output in Critically Ill Patients Urinary Catheter Date of Insertion: 05/11/21 Urinary Catheter Time of Insertion: 14:00 Date Urinary Catheter Removed: 04/28/21 Time Urinary Catheter Discontinued: 10:30 Data : 05/12/21 05:15 05/13/21 03:15 Micro: Microbiology 05/07/21 18:44 Blood Culture - Final Blood NO GROWTH AFTER 5 DAYS 05/08/21 08:55 Fungal Smear - Preliminary Sputum - Endotracheal Wash 05/12/21 11:00 Legionella Urinary Antigen - Final Urine,Voided 05/10/21 15:00 Catheter Tip Culture - Preliminary Central Line Yeast species A&P Assessment and plan (1) ATN (acute tubular necrosis): 1. Acute kidney injury Remains oligoanuric, likely secondary to acute tubular injury -s/p rt femoral dialysis catheter by Dr. Sue yesterday Last dialyzed yesterday repeat HD today - 3 hrs, remove 2l, 3k We will have to hold off on permacath until infection improves. Strict I's and O's Close monitoring for recovery Dose medication for GFR less than 15 on dialysis -given fungemia- likely remove HD catheter tomorrow after HD 2. Pancreatitis Secondary to hypertriglyceridemia, triglyceride levels now trending down, below 500 mgmt per medicine 3. High fevers and dialysis catheter w/ yeast noted. Sputum culture from 05/06 came back positive for Trichosporon and both urine and sputum cultures so far grew valentin paraspilosis. ID consult requested and currently started on Amphotericin B - deferring permacath placement at this time -HEDY today 4. anemia- hgb 7.4- consider prbc tx per pulm 5. replace phos Exam and interview performed with aid of bedside RN using telemedicine Time spent 30 min inc > 50% of time in face to face counseling MD Fadumo Guadalupe Renal Care Status: Acute Plan see above Attestations Medical Necessity Statement*: fungemic, buddy, vdrf Time Spent in Patient Care: 16 - 35 minutes (>than 50% of time spent in counselling and/or direct pt care on unit). Coding Level of Care Code Acute Welfare Service Aide for Chg Fwd Diagnoses ATN (acute tubular necrosis) N17.0
[2021-05-13] MEDS: midazolam 1 mg/mL INJ 2 mL 2 MG IVP ×2 (07:45→09:13)
[2021-05-13] MEDS: insulin lispro 100 unit/1 mL SUBCUT ×4 (07:59→22:17)
--- NOTE | 2021-05-13 08:04 | PM.OP ---
Operative Report Date of procedure: May 13, 2021 Pre-op diagnosis: Preop Diagnosis positive fungal culture from multiple sites, rule out endocarditis Procedure done: HEDY Procedure: Patient had a bedside HEDY in the ICU while being intubated. She was given IV sedation with Versed, a total of 5 mg. 's procedure was performed to rule out endocarditis. Patient was found to have no evidence of endocarditis. Trace of mitral regurgitation was noted. Tip of the subclavian catheter was noted in the upper part of the right atrium. No intracardiac masses were noted. For the details, please refer to the HEDY report Dr. Downs was informed about these findings
[2021-05-13 09:30] LABS: Glucose Point of Care 212 mg/dL (70-110)
[2021-05-13] MEDS: sennosides-docusate Tablet 2 TAB PO (09:32)
[2021-05-13] MEDS: lactulose oral liq 20 gm/30 mL UDC 10 GM PO (09:32)
[2021-05-13] MEDS: fenofibrate 145 mg Tablet PO (09:32)
[2021-05-13] MEDS: calcium carbonate 500 mg Chew Tablet 1000 MG PO ×3 (09:32→20:09)
[2021-05-13] MEDS: magnesium hydroxide 30 mL UDC PO (09:32)
[2021-05-13] MEDS: predniSONE 20 mg Tablet 40 MG PO (09:32)
--- NOTE | 2021-05-13 10:16 | PC.NUTR ---
When medically appropriate to resume TF, recommend Nepro 1.8 to begin @ 10 mls/hr, advancing 10 mls/hr as tolerated to goal rate of 30 mls/hr; with flushes 150 mls Q4H or per MD discretion. Details in RD assessment.
--- NOTE | 2021-05-13 10:40 | PC.CHAP ---
Pastoral Care Encounter/Spiritual Assessment Type of Contact [] Declined public housing interviewer visit [] Patient/Family/Request visit [] Outpatient visit [] Follow-up visit [] Physician referral [] Code/Alert [x] Routine visit [] Staff referral [] Actively dying [] Patient sleeping [x] Family support [] [] Out of room [] Palliative care [] [x] Receiving care in room [] Pre-surgical visit [] Trauma [] Long length of stay [x] ICU visit [x] Other: still on vent... parent present.. praying for healing Relational/Emotional Strength [] Patient feels connected with others/family/visitors/staff [] Distress [] Loneliness/isolation [] Abandonment Spirituality of Patient [] Person of Emelina [] Attends Oriental Orthodox of their Emelina [] Believes in Prayer [] Reads Bible or Restorationism materials [] There are Spiritual issues to be addressed Automatic Shirring Machine Operator Interventions [x] Prayer [] Active listening [] Non-anxious presence [] Spiritual/emotional support [] Crisis/trauma care [] Spiritual counseling [] Bereavement support [] Provided bereavement packet [] Provided Bible/devotional materials [] Provided toy/stuffed animal, coloring book to patient or family member [] Provided Communion [] Anointing/[place] [] Salvation [x] Completed spiritual assessment [] Other: Impact on Illness or Injury [] Angry [] Fearful [] Anxious [] Often cries [] Exhaustion [] Unable to work [] Unable to attend zoroastrianism [] Unable to walk/stand [] Unable to read [] Unable to drive [] Unable to eat/drink [] Unable to sleep [] Unable to be with family [] Patient intubated [] Other: Summary Time spent with patient
[2021-05-13 10:58] LABS: Glucose Point of Care 175 mg/dL (70-110)
[2021-05-13] MEDS: heparin drip 25,000 UNIT/500 ML PREMIX 18.54 UNIT IV (11:05)
[2021-05-13] MEDS: epoetin alfa 1000 Unit/0.05 mL (ESRD) 6000 UNIT SUBCUT (11:15)
[2021-05-13 11:19] LABS: Basophils # 0.1 10^3/uL (0.0-0.1); Basophils % 0.9 %; Eosinophils # 0.1 10^3/uL (0.0-0.8); Eosinophils % 1.9 %; Hematocrit 25.2 % (37.0-47.0); Hemoglobin 7.8 g/dL (11.5-15.3); Lymphocytes # 0.8 10^3/uL (0.8-4.8); Mean Corpuscular Hemoglobin 31.1 pg (28.0-34.0); Mean Corpuscular Volume 100.4 fl (81-99); Mean Platelet Volume 11.9 fL (7.4-10.4); Monocytes # 0.6 10^3/uL (0.2-0.9); Monocytes % 10.2 %; Neutrophils # 4.02 10^3/uL (1.8-7.7); Neutrophils % 69.5 %; Nucleated Red Blood Cells % 0 %; Platelet Count 244 10^3/cmm (130-400); Red Blood Count 2.51 10^6/uL (4.1-5.3); Red Cell Distribution Width 18.3 % (12.1-15.1); White Blood Count 5.8 10^3/uL (4.0-10.0)
--- NOTE | 2021-05-13 11:25 | P.PN_ITS ---
Subjective Subjective: No events overnight. Patient has remained hemodynamically stable afebrile. Yesterday had to. Soft low-grade fevers. T-max last 24-hour 101.5. Fever curve is improving. Today morning patient is afebrile. Patient underwent right femoral temporary dialysis catheter replacement. Had one session of dialysis yesterday. Today morning seen post HEDY. I have been reported HEDY did not have any concerns for fungal infective endocarditis. Seen with family and RN at bedside. Currently on fentanyl 125 and Precedex. Continues to remain on pressure control with peak pressure of 31. Vitals/I&O/Wt Last Vital Signs Temp 98.1 F 05/13/21 08:31 Pulse 112 H 05/13/21 09:30 Resp 19 H 05/13/21 10:07 BP 91/61 05/13/21 09:30 Pulse Ox 99 05/13/21 10:07 FEVER CURVE 05/12/21 05/13/21 05/13/21 22:59 06:59 14:59 Intake Total 357.442 / 838.724 620.105 / 1458.829 100 / 100 Output Total 50 / 60 125 / 185 Balance 307.442 / 778.724 495.105 / 1273.829 100 / 100 Weight last 48 hrs Weight 58.967 kg Weight 66.224 kg Weight 66.587 kg Physical Exam Narrative: General: In mild distress, frowning with mild tears in the eye, awake, on sedation with fentanyl, and Precedex. HEENT: PERRLA, pupils bilaterally equal and reactive Chest: Bilateral bronchial breath sounds, coarse crackles present all over the lung dyer, diffuse rhonchi equal good air entry bilaterally CVS: S1-S2 regular, no murmurs, no tachycardia, no gallops, no rubs Abdomen: Soft, nontender, no organomegaly, bowel sounds sluggish. Neuro: Intubated, mildly sedated, frowning Urinary Catheter Management: Wynn: Cath Placed During This Visit: yes, but has since been removed by the nurse Reason for Continuing Indwelling Catheter: Accurate Measurement of Urinary Output in Critically Ill Patients Urinary Catheter Date of Insertion: 05/11/21 Urinary Catheter Time of Insertion: 14:00 Date Urinary Catheter Removed: 04/28/21 Time Urinary Catheter Discontinued: 10:30 Data : 05/13/21 10:56 05/13/21 03:15 Micro: Microbiology 05/07/21 18:44 Blood Culture - Final Blood NO GROWTH AFTER 5 DAYS 05/08/21 08:55 Fungal Smear - Preliminary Sputum - Endotracheal Wash 05/12/21 11:00 Legionella Urinary Antigen - Final Urine,Voided 05/10/21 15:00 Catheter Tip Culture - Preliminary Central Line Yeast species A&P Assessment and plan (1) Persistent fever: Status: Acute (2) Acute respiratory distress syndrome (ARDS) due to 2019 novel coronavirus: s/p remdisivir and steroids Status: Acute (3) ATN (acute tubular necrosis): Status: Acute (4) COVID: Status: Acute (5) Acute pancreatitis: Status: Acute (6) Acute respiratory failure requiring reintubation: Status: Acute (7) Pulmonary embolism: Status: Acute (8) Febrile illness: Status: Acute (9) Yeast detected: Status: Acute (10) Aspiration pneumonia: Status: Acute (11) B12 deficiency anemia: Status: Acute (12) Shock: Status: Acute Plan Patient was admitted on 04/19 for severe metabolic acidosis, hypertriglyceridemia induced pancreatitis, COVID-19 related ARDS First intubation 04/21 after an episode of vomiting while on BiPAP, developed aspiration pneumonia. Eventually extubated on 05/01 Right IJ dialysis catheter placed 04/20, She did very well between 05/01 and 05/04, she was doing well on room air, wynn removed, antibiotic switched to Augmentin, started making urine, she was able to eat, bowel movements were regular no episodes of vomiting, fever susided Hypertriglyceridemia with pancreatitis improved with insulin gtt and avoiding propofol 05/05 she developed pulmonary edema again, she got worse overnight got transferred to ICU and got intubated on 05/06 for worsening tachypnea. Femoral temporary catheter placed on 05/12. IJ Shiley removed on 05/10. Wynn catheter changed on 05/11. Shock: Required minimal Levophed during dialysis. Wean off Levophed keeping mean arterial pressure over 62. Monitor urine output and saturation. Acute respiratory failure requiring intubation: Multifactorial. Most likely secondary to COVID-19, pulmonary embolism along with possible aspiration pneumonia. Patient underwent bronchoscopy on 05/08. Sputum culture from 05/06+ for trichosporon Bigelli. Shiley catheter tip growing fungus. So far sputum culture form 04/29 positive for Coco parapalosis. Repeat MRSA swab results negative. Blood cultures from and negative in 5 days. Repeat blood cultures sent on . Fungal culture sent to [facility]. Sensitivity for fungal culture sent out as well. Vancomycin DC'd on 05/10. For concern for antibiotic fevers. Zosyn stopped on 05/13. CT sinuses negative for invasive fungal sinusitis. Persistent febrile episodes: Fever curve improving. Patient does have potential sources of infection as stated above. Also has pulmonary embolism. Cannot rule out febrile illness secondary to inflammation or antibiotic fevers versus drug fever. CT head done yesterday negative for bleed. Does not show any typical signs of meningitis. Does have sacral ulcer stage I. HEDY negative for endocarditis. ESR, CRP improving. RUBEN profile negative. Respiratory viral panel negative. CT abdomen pelvis chest done on 05/07 results appreciated. IV Tylenol as needed for fever. Toradol for possible inflammatory fevers every 12 as needed. Stop SSRIs including Seroquel on 05/11 For pulmonary embolism: Continue heparin drip. For COVID-19. Patient is already finished treatment with remdesivir and dexamethasone. Continue weaning ventilator accordingly. DuoNebs every 6 hour, budesonide twice daily. ATN: Nephrology on board. Last dialysis on 05/09. No plan for dialysis today. Repeat dialysis today. Anemia: No active signs of bleeding. Can be multifactorial. Reticulocyte, iron panel, folate levels appreciated. Haptoglobin level good. Received 2 units of blood transfusion during hospitalization. Hemoglobin 7.8. Found to be vitamin B12 deficient. Continue with vitamin B12 1000 mcg IM daily for 3 days. Hypertriglyceridemia induced pancreatitis: Triglycerides finally improving. Continue with home dose of fenofibrate. Will avoid propofol. Repeat triglyceride stable. Start tube feed today Heparin drip would suffice DVT prophylaxis Full code Parents stay with her most of the time Appreciate nephrology, ID, surgical, pulmonary recommendations If unable to wean off ventilator this time possibility of tracheostomy and PEG tube placement. Family is aware. Family is also aware that patient ends up getting tracheostomy it is quite possible patient would need transfer to LTAC for further rehabitation. Family is agreeable for now. Plan of care discussed in detail with patient's family at bedside. Attestations Medical Necessity Statement*: Requires further hospitalization for management of respiratory failure requiring mechanical ventilation, septic shock, ATN requiring hemodialysis, persistent fevers under evaluation Critical Care Time: The high probability of a clinically significant, sudden or life threatening deterioration of the patient's renal, ID, cardiac, pulmonary system(s) required my full and direct attention, intervention and personal management. The critical care time is as shown. This time is in addition to time spent performing any reported procedures but includes the following: [x] Data and vital sign review and interpretation [x] Patient assessment, examination and intervention [x] Documentation [x] Medication orders and management Critical Care Time (min): 90 Coding Level of Care Code Acute Pharmacovigilance Scientist for [facility] Fwd Diagnoses Persistent fever R50.9 Acute respiratory distress syndrome (ARDS) due to 2019 novel coronavirus U07.1; J80 ATN (acute tubular necrosis) N17.0 COVID U07.1 Acute pancreatitis K85.90 Acute respiratory failure requiring reintubation J96.00 Pulmonary embolism I26.99 Febrile illness R50.9 Yeast detected B37.9 Aspiration pneumonia J69.0 B12 deficiency anemia D51.9 Shock R57.9
[2021-05-13 13:12] LABS: Anti-Double Strand DNA AB <1 IU/mL; Jo-1 Antibody <1.0 NEG AI (<1.0 NEG); SM/RNP Antibodies <1.0 NEG AI (<1.0 NEG); SS-B/LA IGG <1.0 NEG AI (<1.0 NEG); Scleroderma Ab(Scl-70) Ab <1.0 NEG AI (<1.0 NEG); Ss-A/Ro Igg <1.0 NEG AI (<1.0 NEG)
--- NOTE | 2021-05-13 14:49 | PC.RESP ---
RT Shift Note Frequent safety and respiratory rounds continue. Orders completed as indicated. Patient monitored pre and post treatments throughout shift. Patient [Did.] tolerate treatments appropriately. Condition .DidNotChange]. Patient and/or medical center representative educated on respiratory treatment and medications. Patient and/or medical center representative [unable to comprehend. Will continue to monitor patient progress.
--- NOTE | 2021-05-13 15:51 | P.PN_ITS ---
Subjective Subjective: Patient overall is about the same. Continues to be on mechanical ventilation and sedation. Right femoral vein temporary nontunneled hemodialysis catheter was placed by me yesterday bedside in the ICU. Patient undergone dialysis yesterday. Medications: Reviewed: Yes Vitals/I&O/Wt Last Vital Signs Temp 99.8 F H 05/13/21 12:30 Pulse 106 H 05/13/21 14:00 Resp 21 H 05/13/21 13:06 BP 105/76 05/13/21 13:30 Pulse Ox 93 05/13/21 13:30 05/13/21 05/13/21 05/13/21 06:59 14:59 22:59 Intake Total 870.105 / 1708.829 100 / 100 Output Total 125 / 185 Balance 745.105 / 1523.829 100 / 100 Weight last 48 hrs Weight 130 lb Weight 146 lb Weight 146 lb 12.8 oz Physical Exam Narrative: Patient remains intubated sedated BMI 29 Head and neck examination PERRLA no masses no cervical lymphadenopathy no jaundice Abdomen nontender nondistended soft no organomegaly guarding or rigidity/no signs of peritonitis Presence of Carroll catheter in place Extremities no cyanosis no clubbing no edema Right femoral vein catheter in place with a palpitations no evidence of hematoma Exam was done in the presence of the family members and nursing staff Uli Urinary Catheter Management: Carroll: Cath Placed During This Visit: yes, but has since been removed by the nurse Reason for Continuing Indwelling Catheter: Accurate Measurement of Urinary Output in Critically Ill Patients Urinary Catheter Date of Insertion: 05/11/21 Urinary Catheter Time of Insertion: 14:00 Date Urinary Catheter Removed: 04/28/21 Time Urinary Catheter Discontinued: 10:30 Data : 05/13/21 10:56 05/13/21 03:15 Micro: Microbiology 05/07/21 18:44 Blood Culture - Final Blood NO GROWTH AFTER 5 DAYS 05/08/21 08:55 Fungal Smear - Preliminary Sputum - Endotracheal Wash 05/12/21 11:00 Legionella Urinary Antigen - Final Urine,Voided A&P Assessment and plan (1) Persistent fever: From general surgery standpoint of view we will continue to monitor the patient and coordinate care with the primary service as well as consulting services. At some point once her clinical status is cleared we will plan to place tunneled hemodialysis catheter when appropriate. Family was updated from general surgery standpoint of view. Assurance and education All questions have been answered and all concerns have been addressed to marci dinh's family satisfaction. Status: Acute Attestations Medical Necessity Statement*: per admitting service Coding Level of Care Code Acute Society Editor for Chg Fwd Diagnoses Persistent fever R50.9
[2021-05-13 15:54] LABS: Lyme AB Screen <0.90 index
[2021-05-13 16:12] LABS: Glucose Point of Care 164 mg/dL (70-110)
[2021-05-13] MEDS: heparin, porcine 1,000 unit/mL INJ 10 mL 10000 UNIT HE (16:25)
[2021-05-13] MEDS: lanolin oint 7 gm 1 APPLIC TOPICAL (17:56)
--- NOTE | 2021-05-13 19:00 | PC.NURSE ---
Levophed Upon assessment of patient, levophed running at 2 mcg/min while MAR displayed paused. MAR updated to show administration.
--- NOTE | 2021-05-13 19:09 | PC.NURSE ---
SHift summary: Overall, uneventful shift. Patient rested in bed thorughout the day. Frequently turned. No fevers today. Urine output was 125 mL. No bowel movements. Patient had a HEDY performed. Results in chart. procedure was uneventful.
[2021-05-13 19:56] LABS: Partial Thromboplastin Time 56.6 SECONDS (23.9-36.7)
[2021-05-13] MEDS: metoprolol tartrate 25 mg Tablet PO (20:57)
[2021-05-13 22:11] LABS: Glucose Point of Care 205 mg/dL (70-110)
[2021-05-14] VITALS (70 sets, daily range): BP systolic 78–132; BP diastolic 45–83; PULSE 89–121; RESP 18–38; TEMP 36.6–37.1; O2SAT 89–100; BMI 3655.6
[2021-05-14] MEDS: ipratropium-albuterol 3 mL Neb INHALATION ×7 (00:45→23:56)
[2021-05-14 01:42] LABS: Basophils % 0.6 %; Eosinophils % 0.6 %; Hematocrit 24.2 % (37.0-47.0); Hemoglobin 7.8 g/dL (11.5-15.3); Lymphocytes # 1.1 10^3/uL (0.8-4.8); Lymphocytes % 15.5 %; Mean Corpuscular HGB Conc 32.2 g/dL (30.0-36.0); Mean Platelet Volume 11.6 fL (7.4-10.4); Monocytes # 0.7 10^3/uL (0.2-0.9); Monocytes % 10.3 %; Neutrophils # 4.87 10^3/uL (1.8-7.7); Neutrophils % 69.3 %; Nucleated Red Blood Cells % 0.4 %; Platelet Count 264 10^3/cmm (130-400); Red Blood Count 2.52 10^6/uL (4.1-5.3); Red Cell Distribution Width 17.8 % (12.1-15.1)
[2021-05-14 01:57] LABS: Partial Thromboplastin Time 38.9 SECONDS (23.9-36.7)
[2021-05-14 02:08] LABS: Alanine Aminotransferase 11 U/L (0-33); Albumin Level 3.5 g/dL (3.5-5.2); Alkaline Phosphatase 256 IU/L (35-105); Anion Gap 15.3 (5-19); Aspartate Amino Transferase 41 U/L (0-32); Blood Urea Nitrogen 26 mg/dL (6-20); Calcium 9.6 mg/dL (8.5-10.5); Carbon Dioxide 24 mmol/L (22-29); Chloride 100 mmol/L (98-107); Globulin 2.9 g/dL (1.3-4.6); Glomerular Filtration Rate 24.8 mL/min (90-130); Glucose 167 mg/dL (65-115); Magnesium 2.2 mg/dL (1.7-2.3); Osmolality Calculated 291 mOsm/kg (285-295); Phosphorus 1.3 mg/dL (2.5-4.5); Potassium 3.3 mmol/L (3.5-5.1); Sodium 136 mmol/L (136-145); Total Bilirubin 0.8 mg/dL (0.15-1.2); Total Protein 6.4 g/dL (6.6-8.7)
[2021-05-14] MEDS: heparin 5,000 unit/mL INJ 1 mL IV ×2 (02:36→16:23)
[2021-05-14] MEDS: famotidine 20 mg/2 mL INJ IVP ×2 (02:52→14:04)
[2021-05-14] MEDS: morphine 4 mg/mL SDV 1 mL 1 MG IVP ×6 (02:52→20:58)
[2021-05-14] MEDS: dexmedeTOMIDine 0.9 % NaCL 400 MCG/100 ML PREMIX 21 MCG IV ×5 (03:18→21:07)
[2021-05-14 04:54] LABS: Glucose Point of Care 178 mg/dL (70-110)
[2021-05-14] MEDS: insulin lispro 100 unit/1 mL SUBCUT ×3 (04:56→16:07)
--- NOTE | 2021-05-14 07:33 | PM.PN ---
Subjective Subjective: alert, responsive, low dose pressors and remains intubated. fevers improved. Medications: Reviewed: Yes Medication Review Details: Current Medications Acetaminophen (Acetaminophen 325 Mg Tablet) 650 mg PO Q6H PRN PRN Reason: Mild/Mod Pain Or Temp >/= 101 Last Admin: 05/11/21 19:24 Dose: 650 mg Documented by: Albuterol/Ipratropium (Ipratropium-Albuterol 3 Ml Neb) 3 ml INHALATION Q4H.RESPIRATORY [facility] Last Admin: 05/14/21 03:35 Dose: 3 ml Documented by: Calcium Carbonate (Calcium Carbonate 500 Mg Chew Tablet) 1,000 mg PO TID [facility] Last Admin: 05/13/21 20:09 Dose: 1,000 mg Documented by: Dextrose (Dextrose 50% Syringe 50 Ml) 25 ml IVP ONCE PRN; Protocol PRN Reason: hypoglycemia protocol Last Admin: 04/20/21 00:25 Dose: 25 ml Documented by: Dextrose (Dextrose 50% Syringe 50 Ml) 50 ml IVP PRN PRN; Protocol PRN Reason: hypoglycemia protocol Last Admin: 04/19/21 20:35 Dose: 50 ml Documented by: Dextrose (Dextrose 50% Syringe 50 Ml) 25 ml IVP ONCE PRN; Protocol PRN Reason: hypoglycemia protocol Dextrose (Dextrose 50% Syringe 50 Ml) 50 ml IVP PRN PRN; Protocol PRN Reason: hypoglycemia protocol Epoetin Shubham (Epoetin Shubham 1000 Unit/0.05 Ml (Esrd)) 6,000 unit SUBCUT MoWeFr [facility] Last Admin: 05/13/21 11:15 Dose: 6,000 unit Documented by: Ergocalciferol (Ergocalciferol (Vitamin D2) 50,000 Unit Capsule) 50,000 unit PO Q7D [facility] Last Admin: 05/12/21 09:12 Dose: 50,000 unit Documented by: Famotidine (Famotidine 20 Mg/2 Ml Inj) 20 mg IVP Q12H [facility] Last Admin: 05/14/21 02:52 Dose: 20 mg Documented by: Fenofibrate (Fenofibrate 145 Mg Tablet) 145 mg PO DAILY [facility] Last Admin: 05/13/21 09:32 Dose: 145 mg Documented by: Glucagon (Glucagon 1 Mg/Ml Inj 1 Ml) 1 mg IM ONCE PRN; Protocol PRN Reason: Adult Acute Hypoglycemia Prot. Heparin Sodium (Porcine) (Heparin 5,000 Unit/Ml Inj 1 Ml) 0 unit IV PRN PRN; Protocol PRN Reason: Heparin weight-base protocol Last Admin: 05/14/21 02:36 Dose: 2,300 unit Documented by: Dextrose (D5w) 500 mls @ 100 mls/hr IV ONCE PRN; Protocol PRN Reason: Adult Acute Hypoglycemia Prot Fentanyl 2,500 mcg/ Sodium (Chloride) 250 mls @ 0 mls/hr IV .Q0M ANNIE; Protocol Last Admin: 05/13/21 11:21 Dose: 100 mcg/hr, 10 mls/hr Documented by: Norepinephrine Bitartrate 8 mg (/ Dextrose) 508 mls @ 0 mls/hr IV .Q0M ANNIE; Protocol Last Titration: 05/13/21 23:41 Dose: 0 mcg/min, 0 mls/hr Documented by: dexmedeTOMIDine 0.9 % NaCL (Precedex) 400 mcg in 100 mls @ 0 mls/hr IV PRN PRN PRN Reason: SEDATION Last Admin: 05/14/21 03:18 Dose: 21 mls/hr Documented by: Amphotericin B 300 mg/ (Dextrose) 275 mls @ 137.5 mls/hr IV Q24H ANNIE Last Admin: 05/13/21 16:02 Dose: 137.5 mls/hr Documented by: Albumin Human (Albumin) 12.5 gm in 50 mls @ 60 mls/hr IV PRN PRN PRN Reason: Hypotension and/or symptomatic Heparin Sodium/Sodium Chloride (Heparin Drip) 25,000 unit in 500 mls @ 0 mls/hr IV .Q0M ANNIE; Protocol Last Titration: 05/14/21 02:30 Dose: 13.59 unit/kg/hr, 18 mls/hr Documented by: Insulin Human Lispro (Insulin Lispro 100 Unit/1 Ml) 0 unit SUBCUT Q6H ANNIE; Protocol Last Admin: 05/14/21 04:56 Dose: 2 unit Documented by: Lactulose (Lactulose Oral Liq 20 Gm/30 Ml Udc) 10 gm PO DAILY ANNIE Last Admin: 05/13/21 09:32 Dose: 10 gm Documented by: Lanolin (Lanolin Oint 7 Gm) 1 applic TOPICAL PRN PRN PRN Reason: DRYNESS Last Admin: 05/13/21 17:56 Dose: 1 appful Documented by: Magnesium Hydroxide (Magnesium Hydroxide 30 Ml Udc) 30 ml PO DAILY [facility] Last Admin: 05/13/21 09:32 Dose: 30 ml Documented by: Metoprolol Tartrate (Metoprolol Tartrate 25 Mg Tablet) 25 mg PO BID@0900,2100 [facility] Last Admin: 05/13/21 20:57 Dose: 25 mg Documented by: Morphine Sulfate (Morphine 4 Mg/Ml Sdv 1 Ml) 1 mg IVP Q4H [facility] Last Admin: 05/14/21 06:09 Dose: 1 mg Documented by: Naloxone HCl (Naloxone 0.4 Mg/Ml Sdv) 0.1 mg IVP Q2M PRN PRN Reason: OPIATERV Ondansetron HCl (Ondansetron 2 Mg/Ml Sdv 2 Ml) 4 mg IVP Q8H PRN PRN Reason: vomiting, or N/V if npo Last Admin: 05/06/21 11:14 Dose: 4 mg Documented by: Prednisone (Prednisone 20 Mg Tablet) 40 mg PO DAILY [facility] Last Admin: 05/13/21 09:32 Dose: 40 mg Documented by: Senna/Docusate Sodium (Sennosides-Docusate Tablet) 2 tab PO DAILY [facility] Last Admin: 05/13/21 09:32 Dose: 2 tab Documented by: Vitals/I&O/Wt Last Vital Signs Temp 98.7 F 05/14/21 04:00 Pulse 114 H 05/14/21 06:00 Resp 20 H 05/14/21 06:14 BP 120/76 05/14/21 05:00 Pulse Ox 97 05/14/21 06:14 05/13/21 05/14/21 05/14/21 22:59 06:59 14:59 Intake Total 426.775 / 526.775 550.687 / 1077.462 Output Total 125 / 125 60 / 185 Balance 301.775 / 401.775 490.687 / 892.462 Weight last 48 hrs Weight 58.967 kg Weight 58.967 kg Weight 66.224 kg Physical Exam Narrative: intubated, fio2=30%, TV 300, RR 18, PEEP 4 , levo @2 fevers improving heent- nc/at, eomi, anicteric neck supple lungs - crackles b/l heart reg, +ROBERT abd soft, nt, nd, + bs ext - RLE edema, left leg no edema rt femoral dialysis catheter neuro-awake, responsive, moves Urinary Catheter Management: Carroll: Cath Placed During This Visit: yes, but has since been removed by the nurse Reason for Continuing Indwelling Catheter: Accurate Measurement of Urinary Output in Critically Ill Patients Urinary Catheter Date of Insertion: 05/11/21 Urinary Catheter Time of Insertion: 14:00 Date Urinary Catheter Removed: 04/28/21 Time Urinary Catheter Discontinued: 10:30 Data : 05/14/21 01:30 05/14/21 01:30 A&P Assessment and plan (1) ATN (acute tubular necrosis): 1. Acute kidney injury Remains oligoanuric, likely secondary to acute tubular injury -s/p rt femoral dialysis catheter by Dr. Sue on 05-12-21 -s/p HD last 2 days -plan to repeat HD in am- 3.5 hrs, remove 2l, 3k -if okay w/ critical care hold HD today -if okay w/ critical care, remove HD catheter tomorrow or Sat after HD and give line holiday and permacath next week -if cultures remain neg and remains afebrile -Strict I's and O's Close monitoring for recovery Dose medication for GFR less than 15 on dialysis 2. Pancreatitis Secondary to hypertriglyceridemia, triglyceride levels now trending down, below 500 mgmt per medicine 3. Fungemia on dialysis catheter- fevers are improving on amphotericin B. - Sputum culture from 05/06 came back positive for Trichosporon and both urine and sputum cultures so far grew valentin paraspilosis. - deferring permacath placement till Tuesday if remains afebrile and no further + cultures -HEDY yesterday negative for masses or vegetations 4. anemia- hgb 7.8-ROSA ELENA. no iv iron ferritin is 1118 5. replace potassium and phos gently case discussed in detail w/ Dr Ignacio Carrero Exam and interview performed with aid of bedside RN using telemedicine Time spent 30 min inc > 50% of time in face to face counseling MD Fadumo Guadalupe Renal Care Status: Acute Plan see above Attestations Medical Necessity Statement*: vdrf, fungal dialysis catheter infection, TONY Time Spent in Patient Care: 16 - 35 minutes (>than 50% of time spent in counselling and/or direct pt care on unit). 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
[2021-05-14] MEDS: calcium carbonate 500 mg Chew Tablet 1000 MG PO ×3 (08:46→20:57)
[2021-05-14] MEDS: lactulose oral liq 20 gm/30 mL UDC 10 GM PO (08:47)
[2021-05-14] MEDS: metoprolol tartrate 25 mg Tablet PO (08:47)
[2021-05-14] MEDS: fenofibrate 145 mg Tablet PO (08:47)
[2021-05-14] MEDS: magnesium hydroxide 30 mL UDC PO (08:47)
[2021-05-14] MEDS: predniSONE 20 mg Tablet 40 MG PO (08:48)
[2021-05-14] MEDS: sennosides-docusate Tablet 2 TAB PO (08:48)
[2021-05-14 09:02] LABS: Partial Thromboplastin Time 40.6 SECONDS (23.9-36.7)
--- NOTE | 2021-05-14 09:25 | PM.PN ---
Subjective Subjective: Multiple times during the day today. Today morning on examination patient is awake and alert. On 75 of fentanyl and Precedex. Mother at bedside. During the day patient was turned over to pressure support. Her RSB I was 58. She was comfortable awake and alert on pressure support of 10. Eventually patient was extubated to heated high flow of 30% 40 L. Patient did not have any bowel movement so was given enema with bowel movement. Otherwise have remained hemodynamically stable. Temperature curve continues to improve. T-max in last 24 hours 99.8 Fahrenheit. Most the day yesterday she was afebrile. Vitals/I&O/Wt Last Vital Signs Temp 98.7 F 05/14/21 04:00 Pulse 114 H 05/14/21 09:00 Resp 19 H 05/14/21 07:58 BP 106/64 05/14/21 09:00 Pulse Ox 98 05/14/21 09:00 Fever curve 05/13/21 05/14/21 05/14/21 22:59 06:59 14:59 Intake Total 426.775 / 526.775 550.687 / 1077.462 91.7 / 91.7 Output Total 125 / 125 60 / 185 Balance 301.775 / 401.775 490.687 / 892.462 91.7 / 91.7 Weight last 48 hrs Weight 58.967 kg Weight 58.967 kg Weight 66.224 kg Physical Exam Narrative: General: Extubated to heated high flow. No acute distress. Pleasant. HEENT: PERRLA, pupils bilaterally equal and reactive Chest: Bilateral bronchial breath sounds, coarse crackles present all over the lung dyer, diffuse rhonchi equal good air entry bilaterally CVS: S1-S2 regular, no murmurs, no tachycardia, no gallops, no rubs Abdomen: Soft, nontender, no organomegaly, bowel sounds sluggish. Neuro: Moving all 4 limbs. Extubated today. No focal deficit. Urinary Catheter Management: Wynn: Cath Placed During This Visit: yes, but has since been removed by the nurse Reason for Continuing Indwelling Catheter: Accurate Measurement of Urinary Output in Critically Ill Patients Urinary Catheter Date of Insertion: 05/11/21 Urinary Catheter Time of Insertion: 14:00 Date Urinary Catheter Removed: 04/28/21 Time Urinary Catheter Discontinued: 10:30 Data : 05/14/21 01:30 05/14/21 01:30 A&P Assessment and plan (1) Persistent fever: Status: Acute (2) Acute respiratory distress syndrome (ARDS) due to 2019 novel coronavirus: s/p remdisivir and steroids Status: Acute (3) ATN (acute tubular necrosis): Status: Acute (4) COVID: Status: Acute (5) Acute pancreatitis: Status: Acute (6) Acute respiratory failure requiring reintubation: Status: Acute (7) Pulmonary embolism: Status: Acute (8) Febrile illness: Status: Acute (9) Yeast detected: Status: Acute (10) Aspiration pneumonia: Status: Acute (11) B12 deficiency anemia: Status: Acute (12) Shock: Status: Acute Plan Patient was admitted on 04/19 for severe metabolic acidosis, hypertriglyceridemia induced pancreatitis, COVID-19 related ARDS First intubation 04/21 after an episode of vomiting while on BiPAP, developed aspiration pneumonia. Eventually extubated on 05/01 Right IJ dialysis catheter placed 04/20, She did very well between 05/01 and 05/04, she was doing well on room air, wynn removed, antibiotic switched to Augmentin, started making urine, she was able to eat, bowel movements were regular no episodes of vomiting, fever susided Hypertriglyceridemia with pancreatitis improved with insulin gtt and avoiding propofol 05/05 she developed pulmonary edema again, she got worse overnight got transferred to ICU and got intubated on 05/06 for worsening tachypnea. Femoral temporary catheter placed on 05/12. IJ Shiley removed on 05/10. Wynn catheter changed on 05/11. Extubated again on 05/14 Shock: Required minimal Levophed during dialysis. Wean off Levophed keeping mean arterial pressure over 62. Monitor urine output and saturation. Acute respiratory failure requiring intubation: Multifactorial. Extubated on 05/14. Most likely secondary to COVID-19, pulmonary embolism along with possible aspiration pneumonia. Sputum culture from 05/06+ for trichosporon Bigelli. Shiley catheter tip growing fungus. So far sputum culture form 04/29 positive for Coco parapalosis. Repeat MRSA swab results negative. Blood cultures from and negative in 5 days. Repeat blood cultures sent on . Fungal culture sent to [facility]. Sensitivity for fungal culture sent out as well. Vancomycin DC'd on 05/10. Zosyn stopped on 05/13. CT sinuses negative for invasive fungal sinusitis. Persistent febrile episodes: Fever curve improving. Patient does have potential sources of infection as stated above. Also has pulmonary embolism. Cannot rule out febrile illness secondary to inflammation or antibiotic fevers versus drug fever versus possibility of organizing pneumonia. CT head done yesterday negative for bleed. Does not show any typical signs of meningitis. Does have sacral ulcer stage I. HEDY negative for endocarditis. ESR, CRP improving. RUBEN profile negative. Respiratory viral panel negative. CT abdomen pelvis chest done on 05/07 results appreciated. Continue with prednisone 40 mg oral daily for possible organizing pneumonia. Continue with AmBisome for possible fungal pneumonia given sputum culture positive. Continue holding off on antibiotics, SSRIs for concern for drug fever. Stop SSRIs including Seroquel on 05/11 For pulmonary embolism: Continue heparin drip. For COVID-19. Patient is already finished treatment with remdesivir and dexamethasone. Continue weaning ventilator accordingly. DuoNebs every 6 hour, budesonide twice daily. ATN: Nephrology on board. Last dialysis on 05/09. No plan for dialysis today. Repeat dialysis tomorrow. If cultures, blood cultures remain negative early next week and plan for permacath placement. Discussed with Dr. Sue from surgery. Anemia: No active signs of bleeding. Can be multifactorial. Reticulocyte, iron panel, folate levels appreciated. Haptoglobin level good. Received 2 units of blood transfusion during hospitalization. Hemoglobin 7.8. Found to be vitamin B12 deficient. Continue with vitamin B12 1000 mcg IM daily for 3 days. Hypertriglyceridemia induced pancreatitis: Triglycerides finally improving. Continue with home dose of fenofibrate. Will avoid propofol. Repeat triglyceride stable. Start tube feed today Heparin drip would suffice DVT prophylaxis Full code Parents stay with her most of the time Appreciate nephrology, ID, surgical, pulmonary recommendations Goals of care: Discussed in detail with mother at bedside. We discussed if patient gets intubated again most likely she will need tracheostomy and PEG tube placement. If patient ends up getting tracheostomy she will need to go to LTAC for further care. Family agreeable. Plan for the day: Extubated today. Start Xanax 0.5 3 times daily for anxiety. Continue Precedex. Dialysis tomorrow. Continue AmBisome. Repeat dialysis tomorrow. Attestations Medical Necessity Statement*: Requires further hospitalization for management of septic shock, respiratory failure requiring intubation, extubated today, persistent fevers most likely secondary to fungal infection versus organizing pneumonia or drug fever Critical Care Time: The high probability of a clinically significant, sudden or life threatening deterioration of the patient's [pulmonary, cardiac, renal, ID system(s) required my full and direct attention, intervention and personal management. The critical care time is as shown. 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
--- NOTE | 2021-05-14 09:36 | PC.NURSE ---
Dr. Couch at bedside, gave v.o. to do KUB if no obstruction then an enema besided fleets due to TONY
--- NOTE | 2021-05-14 10:00 | XR_ITS ---
WS: [id number] Exam: XR KUB portable [id number] Date/Time of Exam: 05/14/2021 9:40 AM Reason For Exam: Possible bowl obstruction Comparison 05/10/2021. There is moderate gaseous dilatation the colon. Large amount of stool in right colon. No small bowel obstruction is noted. There is gas in the rectosigmoid colon. No sign of organ enlargement. Regional bony elements are intact. No free air. An NG tube ends in the body the stomach. XR/XR KUB portable [id number] IMPRESSION: 1. Moderate gaseous dilatation the colon with retained stool in the right colon . No acute obstructive pattern noted. 2. Enteric tube is noted in the stomach
--- NOTE | 2021-05-14 10:23 | PC.CHAP ---
Pastoral Care Encounter/Spiritual Assessment Type of Contact [] Declined feeder operator automatic visit [] Patient/Family/Request visit [] Outpatient visit [] Follow-up visit [] Physician referral [] Code/Alert [x] Routine visit [] Staff referral [] Actively dying [] Patient sleeping [x] Family support [] [] Out of room [] Palliative care [] [x] Receiving care in room [] Pre-surgical visit [] Trauma [] Long length of stay [x] ICU visit [] Other: Relational/Emotional Strength [] Patient feels connected with others/family/visitors/staff [] Distress [] Loneliness/isolation [] Abandonment Spirituality of Patient [] Person of Emelina [] Attends Je[employer] Witness of their Emelina [] Believes in Prayer [] Reads Bible or Rastafarian materials [] There are Spiritual issues to be addressed Supervisor Sewer System Interventions [x] Prayer [x] Active listening [x] Non-anxious presence [x] Spiritual/emotional support [] Crisis/trauma care [] Spiritual counseling [] Bereavement support [] Provided bereavement packet [] Provided Bible/devotional materials [] Provided toy/stuffed animal, coloring book to patient or family member [] Provided Communion [] Anointing/[place] [] Salvation [x] Completed spiritual assessment [] Other: Impact on Illness or Injury [] Angry [] Fearful [] Anxious [] Often cries [] Exhaustion [] Unable to work [] Unable to attend samaritan [] Unable to walk/stand [] Unable to read [] Unable to drive [] Unable to eat/drink [] Unable to sleep [] Unable to be with family [] Patient intubated [] Other: Summary patient awake... tired of being in hospital... looking forward to healing and getting home Time spent with patient 10 min
[2021-05-14 10:35] LABS: Glucose Point of Care 177 mg/dL (70-110)
--- NOTE | 2021-05-14 11:07 | PC.NURSE ---
Dr. Downs called, gave t.o. for mineral oil enema or milk and molasses which either is available
--- NOTE | 2021-05-14 11:54 | PC.SLP ---
Pt intubated. 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
--- NOTE | 2021-05-14 12:14 | PC.SOCIAL ---
IMM not updated IMM not updated as patient is intubated an not expected to dc in the next 24-48 hours.
--- NOTE | 2021-05-14 12:46 | PC.NURSE ---
Abimael enema given per v.o. from Dr. Downs
--- NOTE | 2021-05-14 13:02 | PC.NURSE ---
Dr. Downs gave v.o. to extubate patient. extubated to F NC per RT
--- NOTE | 2021-05-14 14:07 | PC.OT ---
Hold OT and PT per nursing order. Plan to resume care following day.
[2021-05-14 15:32] LABS: Partial Thromboplastin Time 36.8 SECONDS (23.9-36.7)
--- NOTE | 2021-05-14 15:47 | PC.NURSE ---
Swallowed small amount honey thick water and juice
[2021-05-14 16:02] LABS: Glucose Point of Care 177 mg/dL (70-110)
[2021-05-14] MEDS: ALPRAZolam 0.5 mg Tablet PO ×2 (16:07→20:57)
[2021-05-14 20:51] LABS: Glucose Point of Care 126 mg/dL (70-110)
[2021-05-14] MEDS: apixaban 5 mg Tablet 2.5 MG PO (20:57)
--- NOTE | 2021-05-14 23:56 | PM.PN ---
Subjective Subjective: Infectious disease progress note : Last seen on 05/11 Since last being seen patient has been extubated today; mental status at baseline HEDY returned as negative for endocarditis MARIA ESTHER zamora has been removed, new Right fem temp HD catheter placed on 05/12 Zosyn discontinued 05/12 Trial of steroids started on 05/11 with Prednisone 40mg po daily Last T max 99.8F on 05/13, afebrile since then. Fever curve appears to be improving currently. Medications: Reviewed: Yes Vitals/I&O/Wt Last Vital Signs Temp 98.7 F 05/14/21 04:00 Pulse 109 H 05/14/21 20: Resp 24 H 05/14/21 20:21 BP 113/68 05/14/21 16:30 Pulse Ox 98 05/14/21 20:21 05/14/21 05/14/21 05/15/21 14:59 22:59 06:59 Intake Total 600.433 / 600.433 173.6 / 774.033 Output Total 150 / 150 Balance 600.433 / 600.433 23.6 / 624.033 Weight last 48 hrs Weight 58.967 kg Weight 58.967 kg Weight 66.224 kg Physical Exam Narrative: GEN: Awake, now extubated CVS: S1S2 N RS: coarse crackles B/L anteriorly Abd: Soft, nt/nd , bs+ Urinary Catheter Management: Carroll: Cath Placed During This Visit: yes, but has since been removed by the nurse Reason for Continuing Indwelling Catheter: Accurate Measurement of Urinary Output in Critically Ill Patients Urinary Catheter Date of Insertion: 05/11/21 Urinary Catheter Time of Insertion: 14:00 Date Urinary Catheter Removed: 04/28/21 Time Urinary Catheter Discontinued: 10:30 Data : 05/14/21 01:30 05/14/21 01:30 Other Labs: Pertinent labs: 05/10: MRSA screen: negative Blood cx : 05/10, 05/07, 05/05, 04/28, 04/18: negative to date 05/10: temp HD catheter tip cx : Valentin parapsilosis 05/08: BAL cx LLL: no growth, no organisms on gram stain; no fungal elements 05/07: urine cx : valentin parapsilosis ; 05/05: urine cx : negative ; 04/19: urine cx : negative 05/06/21: Endotracheal aspirate cx : Trichosporon beigelii based on gram stain identification from SDA plate. Sent to [facility] for molecular testing/confirmation 05/11/21: fungal blood cx (send out): negative to date 04/29: sputum cx/endotrach aspirate: valentin parapsilosis 04/30, 05/06: C diff PCR: negative 05/08: PJP PCR from BAL: negative 05/11: cytology from BAL: chronic inflammation 04/19: COVID PCR : detected ; influenza negative 04/19: Acute hepatitis and HIV serology : negative Imagin/20: venous duplex negative for DVT 05/10: Ct head: no intracranial pathology 05/11: Ct sinus: no evidence of invasive fungal infection 05/08: CXR: B/L pulmonary opacities consistent with PNA 05/07: CT CAP w/o con : prominent small bowel fluid, s/c edema, pancreas reported as normal 04/25 : ct Abd/pelvis w/o contrast : bibasilar opacities, mild residual pancreatitis 04/22: CT CAP:?few filling defects in the left lower lobe pulmonary artery suspicious for pulmonary embolus.Air-fluid level in the stomach. Air distended transverse colon compatible with adynamic ileus.Small amount of pancreatic edema is similar to previous.? 04/18: CT Abd/pelvis: Hazy bilateral pulmonary opacities which are consistent with COVID-19. Acute pancreatitis pancreas is enlarged and edematous with peripancreatic fat stranding. 05/05: B/L pulmonary infiltrates progressed 04/30: diffuse lung opacities with improvement Lines: RIJ temp HD: 04/20-05/11; R fem temp HD: 05/12 R fem CVC 04/20; [facility] CVC 05/06-current Carroll catheter changed on 05/06. Micro: Microbiology 05/10/21 15:00 Catheter Tip Culture - Final Central Line Valentin parapsilosis A&P Assessment and plan (1) Valentin parapsilosis infection: Status: Acute (2) Persistent fever: Status: Acute (3) Pulmonary embolism: Status: Acute (4) Acute respiratory distress syndrome (ARDS) due to 2019 novel coronavirus: Status: Acute (5) ATN (acute tubular necrosis): Status: Acute (6) Acute respiratory failure requiring reintubation: Status: Acute Plan (1) Persistent fever: Patient originally admitted for acute pancreatitis related to hypertriglyceridemia, acute hypoxic respiratory failure related to COVID 19 pneumonia, TONY currently on HD , complicated hospital course as outlined on consult note 05/11. ID consulted for persistent fever and concern for trichosporiosis. Fever curve currently improving, last feverile 05/13 at t max 99.8F No leukocytosis respiratory, blood, urine cx remain negative for bacterial growth, antibacterials discontinued after a prolonged course since 04/20. Temp HD catheter tip cx (removed 05/11) returned with C. parapsilosis, as did urine and endotracheal aspirate cultures. Blood cx negative for fungemia, however patient has multiple risk factors for invasive fungal infection incl prolonged course of abx, prolonged ICU admission, steroid use, multiple indwelling lines, therefore presumptively on treatment with antifungals Single Endotracheal aspirate cx on 05/06: Trichosporon beigelii based on gram stain identification from SDA plate, sent to outside lab for molecular testing confirmation. Suspect that trichosopron here more likely to represent colonizer vs contaminant given that patient is without profound underlying immunocompromise and less likely to have invasive trichosporon infection. Currently on Ambisome 5mg/kg q24h while awaiting finalization of fungal blood cx sent to [facility] on 05/11. Latter is negative thus far. Previously on treatment with Caspofungin started 05/06-05/10. HEDY negative for endocarditis Plan: All blood cx remain negative at [facility] Fungal blood cx sent to [facility] on 05/11 thus far negative to date. If blood cx from 05/11 remains negative at day 7, discontinue Ambisome and change antifungal coverage to Fluconazole 400mg po daily equivalent based on cr cl. If blood cx from 05/11 returns positive for C parapsilosis, change treatment to FLuconazole as above. If blood cx returns positive for Trichosporon, continue AMbisome Consider removal of triple lumen CVC from [facility] (placed 05/06) if line no longer needed for critical care management. change to peripheral iv if feasible. If all blood cx remain negative over the weekend (today is ) and patient remains afberile, would be okay to proceed with tunneled HD catheter next week. Non infectious differentials for patient's fever include drug fever for which imipenem and other antibacterials were discontinued after active bacterial infection ruled out. Organizing pneumonia may be another possibility; currently on Prednisone 40mg po daily. Less likely HLH- no pancytopenia, liver function improving, no splenomegaly ??serotonin release syndrome given concomitant use of fentanyl, seroquel- appears less likely given lack of HTN, however can give trial of holding seroquel if okay from medicine standpoint. ??autoimmune pancreatitis and ILD, appears less likely given nearly normalized inflammatory markers will follow Attestations Medical Necessity Statement*: per admitting, need for iv antifungals Coding Level of Care Code Acute Still Operator Batch Or Continuous for [facility] Fwd Diagnoses Valentin parapsilosis infection B37.9 Persistent fever R50.9 Pulmonary embolism I26.99 Acute respiratory distress syndrome (ARDS) due to 2019 novel coronavirus U07.1; J80 ATN (acute tubular necrosis) N17.0 Acute respiratory failure requiring reintubation J96.00
[2021-05-15] VITALS (51 sets, daily range): BP systolic 77–135; BP diastolic 46–89; PULSE 67–115; RESP 19–43; TEMP 36.4–37.2; O2SAT 89–100
[2021-05-15] MEDS: famotidine 20 mg/2 mL INJ IVP ×2 (02:29→14:45)
[2021-05-15] MEDS: morphine 4 mg/mL SDV 1 mL 1 MG IVP ×2 (02:29→06:02)
[2021-05-15] MEDS: dexmedeTOMIDine 0.9 % NaCL 400 MCG/100 ML PREMIX 21 MCG IV ×2 (02:29→06:40)
[2021-05-15] MEDS: ipratropium-albuterol 3 mL Neb INHALATION ×5 (04:01→20:40)
[2021-05-15 04:04] LABS: Basophils # 0.1 10^3/uL (0.0-0.1); Basophils % 0.6 %; Eosinophils # 0.8 10^3/uL (0.0-0.8); Eosinophils % 9.1 %; Hematocrit 24.2 % (37.0-47.0); Hemoglobin 7.4 g/dL (11.5-15.3); Lymphocytes # 1.6 10^3/uL (0.8-4.8); Lymphocytes % 18.8 %; Mean Corpuscular HGB Conc 30.6 g/dL (30.0-36.0); Mean Platelet Volume 11.5 fL (7.4-10.4); Monocytes % 11.5 %; Neutrophils # 4.79 10^3/uL (1.8-7.7); Neutrophils % 57.4 %; Nucleated Red Blood Cells # 0.1 /100WBC; Nucleated Red Blood Cells % 0.6 %; Platelet Count 313 10^3/cmm (130-400); Red Blood Count 2.47 10^6/uL (4.1-5.3); Red Cell Distribution Width 18.4 % (12.1-15.1); White Blood Count 8.4 10^3/uL (4.0-10.0)
[2021-05-15 04:21] LABS: Alanine Aminotransferase 14 U/L (0-33); Albumin Level 3.4 g/dL (3.5-5.2); Alkaline Phosphatase 275 IU/L (35-105); Anion Gap 16.7 (5-19); Aspartate Amino Transferase 33 U/L (0-32); Blood Urea Nitrogen 42 mg/dL (6-20); Calcium 10.5 mg/dL (8.5-10.5); Carbon Dioxide 23 mmol/L (22-29); Chloride 102 mmol/L (98-107); Globulin 2.5 g/dL (1.3-4.6); Glomerular Filtration Rate 16.7 mL/min (90-130); Glucose 121 mg/dL (65-115); Magnesium 2.9 mg/dL (1.7-2.3); Osmolality Calculated 298 mOsm/kg (285-295); Potassium 3.7 mmol/L (3.5-5.1); Sodium 138 mmol/L (136-145); Total Protein 5.9 g/dL (6.6-8.7)
[2021-05-15 04:26] LABS: Glucose Point of Care 120 mg/dL (70-110)
--- NOTE | 2021-05-15 05:03 | PM.PN ---
Subjective Subjective: Extubated, awake, drowsy but comfortable. UO minimal, only 210mL yesterday. Bps soft, no pressors. HD pending for today. Medications: Reviewed: Yes Medication Review Details: Current Medications Acetaminophen (Acetaminophen 325 Mg Tablet) 650 mg PO Q6H PRN PRN Reason: Mild/Mod Pain Or Temp >/= 101 Last Admin: 05/11/21 19:24 Dose: 650 mg Documented by: Albuterol/Ipratropium (Ipratropium-Albuterol 3 Ml Neb) 3 ml INHALATION Q4H.RESPIRATORY [facility] Last Admin: 05/14/21 03:35 Dose: 3 ml Documented by: Calcium Carbonate (Calcium Carbonate 500 Mg Chew Tablet) 1,000 mg PO TID [facility] Last Admin: 05/13/21 20:09 Dose: 1,000 mg Documented by: Dextrose (Dextrose 50% Syringe 50 Ml) 25 ml IVP ONCE PRN; Protocol PRN Reason: hypoglycemia protocol Last Admin: 04/20/21 00:25 Dose: 25 ml Documented by: Dextrose (Dextrose 50% Syringe 50 Ml) 50 ml IVP PRN PRN; Protocol PRN Reason: hypoglycemia protocol Last Admin: 04/19/21 20:35 Dose: 50 ml Documented by: Dextrose (Dextrose 50% Syringe 50 Ml) 25 ml IVP ONCE PRN; Protocol PRN Reason: hypoglycemia protocol Dextrose (Dextrose 50% Syringe 50 Ml) 50 ml IVP PRN PRN; Protocol PRN Reason: hypoglycemia protocol Epoetin Shubham (Epoetin Shubham 1000 Unit/0.05 Ml (Esrd)) 6,000 unit SUBCUT MoWeFr [facility] Last Admin: 05/13/21 11:15 Dose: 6,000 unit Documented by: Ergocalciferol (Ergocalciferol (Vitamin D2) 50,000 Unit Capsule) 50,000 unit PO Q7D [facility] Last Admin: 05/12/21 09:12 Dose: 50,000 unit Documented by: Famotidine (Famotidine 20 Mg/2 Ml Inj) 20 mg IVP Q12H [facility] Last Admin: 05/14/21 02:52 Dose: 20 mg Documented by: Fenofibrate (Fenofibrate 145 Mg Tablet) 145 mg PO DAILY [facility] Last Admin: 05/13/21 09:32 Dose: 145 mg Documented by: Glucagon (Glucagon 1 Mg/Ml Inj 1 Ml) 1 mg IM ONCE PRN; Protocol PRN Reason: Adult Acute Hypoglycemia Prot. Heparin Sodium (Porcine) (Heparin 5,000 Unit/Ml Inj 1 Ml) 0 unit IV PRN PRN; Protocol PRN Reason: Heparin weight-base protocol Last Admin: 05/14/21 02:36 Dose: 2,300 unit Documented by: Dextrose (D5w) 500 mls @ 100 mls/hr IV ONCE PRN; Protocol PRN Reason: Adult Acute Hypoglycemia Prot Fentanyl 2,500 mcg/ Sodium (Chloride) 250 mls @ 0 mls/hr IV .Q0M ANNIE; Protocol Last Admin: 05/13/21 11:21 Dose: 100 mcg/hr, 10 mls/hr Documented by: Norepinephrine Bitartrate 8 mg (/ Dextrose) 508 mls @ 0 mls/hr IV .Q0M ANNIE; Protocol Last Titration: 05/13/21 23:41 Dose: 0 mcg/min, 0 mls/hr Documented by: dexmedeTOMIDine 0.9 % NaCL (Precedex) 400 mcg in 100 mls @ 0 mls/hr IV PRN PRN PRN Reason: SEDATION Last Admin: 05/14/21 03:18 Dose: 21 mls/hr Documented by: Amphotericin B 300 mg/ (Dextrose) 275 mls @ 137.5 mls/hr IV Q24H ANNIE Last Admin: 05/13/21 16:02 Dose: 137.5 mls/hr Documented by: Albumin Human (Albumin) 12.5 gm in 50 mls @ 60 mls/hr IV PRN PRN PRN Reason: Hypotension and/or symptomatic Heparin Sodium/Sodium Chloride (Heparin Drip) 25,000 unit in 500 mls @ 0 mls/hr IV .Q0M ANNIE; Protocol Last Titration: 05/14/21 02:30 Dose: 13.59 unit/kg/hr, 18 mls/hr Documented by: Insulin Human Lispro (Insulin Lispro 100 Unit/1 Ml) 0 unit SUBCUT Q6H ANNIE; Protocol Last Admin: 05/14/21 04:56 Dose: 2 unit Documented by: Lactulose (Lactulose Oral Liq 20 Gm/30 Ml Udc) 10 gm PO DAILY ANNIE Last Admin: 05/13/21 09:32 Dose: 10 gm Documented by: Lanolin (Lanolin Oint 7 Gm) 1 applic TOPICAL PRN PRN PRN Reason: DRYNESS Last Admin: 05/13/21 17:56 Dose: 1 appful Documented by: Magnesium Hydroxide (Magnesium Hydroxide 30 Ml Udc) 30 ml PO DAILY [facility] Last Admin: 05/13/21 09:32 Dose: 30 ml Documented by: Metoprolol Tartrate (Metoprolol Tartrate 25 Mg Tablet) 25 mg PO BID@0900,2100 [facility] Last Admin: 05/13/21 20:57 Dose: 25 mg Documented by: Morphine Sulfate (Morphine 4 Mg/Ml Sdv 1 Ml) 1 mg IVP Q4H [facility] Last Admin: 05/14/21 06:09 Dose: 1 mg Documented by: Naloxone HCl (Naloxone 0.4 Mg/Ml Sdv) 0.1 mg IVP Q2M PRN PRN Reason: OPIATERV Ondansetron HCl (Ondansetron 2 Mg/Ml Sdv 2 Ml) 4 mg IVP Q8H PRN PRN Reason: vomiting, or N/V if npo Last Admin: 05/06/21 11:14 Dose: 4 mg Documented by: Prednisone (Prednisone 20 Mg Tablet) 40 mg PO DAILY [facility] Last Admin: 05/13/21 09:32 Dose: 40 mg Documented by: Senna/Docusate Sodium (Sennosides-Docusate Tablet) 2 tab PO DAILY [facility] Last Admin: 05/13/21 09:32 Dose: 2 tab Documented by: Vitals/I&O/Wt Last Vital Signs Temp 97.6 F 05/15/21 03:00 Pulse 95 05/15/21 04:01 Resp 22 H 05/15/21 04:01 BP 89/56 05/15/21 04:00 Pulse Ox 96 05/15/21 04:01 05/14/21 05/14/21 05/15/21 14:59 22:59 06:59 Intake Total 600.433 / 600.433 273.6 / 874.033 100 / 974.033 Output Total 150 / 150 Balance 600.433 / 600.433 123.6 / 724.033 100 / 824.033 Weight last 48 hrs Weight 58.967 kg Weight 58.967 kg Weight 66.224 kg Physical Exam Narrative: Constitutional: Intubated and vented HEENT: Wet mucosa, no jvp, non icteric Lungs: Bilaterally scattered rales CVS: S1 S2, no murmurs Abdo: Soft, BS ok Ext 4: Minimal edema, peripheral perfusion with no cyanosis Neurological: Grossly non-focal Urinary Catheter Management: Carroll: Cath Placed During This Visit: yes, but has since been removed by the nurse Reason for Continuing Indwelling Catheter: Accurate Measurement of Urinary Output in Critically Ill Patients Urinary Catheter Date of Insertion: 05/11/21 Urinary Catheter Time of Insertion: 14:00 Date Urinary Catheter Removed: 04/28/21 Time Urinary Catheter Discontinued: 10:30 Data : 05/15/21 03:40 05/15/21 03:40 Micro: Microbiology 05/10/21 15:00 Catheter Tip Culture - Final Central Line Coco parapsilosis A&P Assessment and plan (1) ATN (acute tubular necrosis): 1. Acute kidney injury Remains oligoanuric, likely secondary to acute tubular injury Plan for dialysis for today, removal of temporary line, monitor over the weekend, dialysis on Tuesday via permacath. Strict I's and O's Close monitoring for recovery Dose medication for GFR less than 15 on dialysis 2. Pancreatitis Secondary to hypertriglyceridemia, triglyceride levels now trending down, below 500 mgmt per medicine recheck Tgs and lipase today 3. Chemistry Labs appreciated, look good 4. ID On amphotericin for fungemia. Urine output 210 mL over the last 24 hours, DC Carroll catheter, especially now that she is extubated. Thank you for consultation, it is a pleasure to follow these cases with you Exam and interview performed with aid of bedside RN using telemedicine Time spent 20 min inc > 50% of time in face to face counseling Pollo Seo MD [facility] [phone] Status: Acute Attestations Medical Necessity Statement*: TONY Coding Level of Care Code Acute Purification Director for g Fwd Diagnoses ATN (acute tubular necrosis) N17.0
[2021-05-15] MEDS: ALPRAZolam 0.5 mg Tablet PO ×3 (08:18→20:37)
[2021-05-15] MEDS: calcium carbonate 500 mg Chew Tablet 1000 MG PO ×3 (08:18→20:37)
[2021-05-15] MEDS: magnesium hydroxide 30 mL UDC PO (08:19)
[2021-05-15] MEDS: fenofibrate 145 mg Tablet PO (08:19)
[2021-05-15] MEDS: lactulose oral liq 20 gm/30 mL UDC 10 GM PO (08:19)
[2021-05-15] MEDS: predniSONE 20 mg Tablet 40 MG PO (08:20)
[2021-05-15] MEDS: sennosides-docusate Tablet 2 TAB PO (08:20)
--- NOTE | 2021-05-15 08:28 | PC.NURSE ---
Dr. Reese at bedside, gave v.o. for chest vest therap tid per RT with Mucomyst inhalation, approved order for PT/OT
--- NOTE | 2021-05-15 08:31 | PC.NURSE ---
Dr. Reese [facility]
[2021-05-15] MEDS: epoetin alfa 1000 Unit/0.05 mL (ESRD) 6000 UNIT SUBCUT (08:47)
[2021-05-15] MEDS: apixaban 5 mg Tablet 2.5 MG PO ×2 (08:49→20:37)
[2021-05-15] MEDS: metoprolol tartrate 25 mg Tablet PO ×2 (08:50→20:38)
--- NOTE | 2021-05-15 09:22 | PC.NURSE ---
Dialysis cath Dr. Reese informed this nurse he does not want the dialysis cath removed due to possibility of dialysis over the weekend, Dr. Gracia called and confirmed
--- NOTE | 2021-05-15 10:13 | PC.CHAP ---
Pastoral Care Encounter/Spiritual Assessment Type of Contact [] Declined flight operations specialist visit [] Patient/Family/Request visit [] Outpatient visit [] Follow-up visit [] Physician referral [] Code/Alert [x] Routine visit [] Staff referral [] Actively dying [] Patient sleeping [x] Family support [] [] Out of room [] Palliative care [] [] Receiving care in room [] Pre-surgical visit [] Trauma [] Long length of stay [x] ICU visit [x] Other: patient off vent... eating.. possible discharged late next week Relational/Emotional Strength [] Patient feels connected with others/family/visitors/staff [] Distress [] Loneliness/isolation [] Abandonment Spirituality of Patient [] Person of Emelina [] Attends Religion of their Emelina [] Believes in Prayer [] Reads Bible or Uatsdin materials [] There are Spiritual issues to be addressed Engagement Director Interventions [x] Prayer [x] Active listening [x] Non-anxious presence [x] Spiritual/emotional support [] Crisis/trauma care [] Spiritual counseling [] Bereavement support [] Provided bereavement packet [] Provided Bible/devotional materials [] Provided toy/stuffed animal, coloring book to patient or family member [] Provided Communion [] Anointing/[place] [] Salvation [x] Completed spiritual assessment [] Other: Impact on Illness or Injury [] Angry [] Fearful [] Anxious [] Often cries [] Exhaustion [] Unable to work [] Unable to attend anabaptism [] Unable to walk/stand [] Unable to read [] Unable to drive [] Unable to eat/drink [] Unable to sleep [] Unable to be with family [] Patient intubated [] Other: Summary Time spent with patient
[2021-05-15 11:20] LABS: Glucose Point of Care 144 mg/dL (70-110)
[2021-05-15] MEDS: acetylcysteine 200 mg/mL SDV 4 mL INHALATION ×2 (11:32→20:40)
[2021-05-15] MEDS: insulin lispro 100 unit/1 mL SUBCUT ×3 (11:39→20:46)
[2021-05-15] MEDS: dexmedeTOMIDine 0.9 % NaCL 400 MCG/100 ML PREMIX 14 MCG IV (14:20)
[2021-05-15] MEDS: norepinephrine 8 MG in dextrose 5 % 500 ML 7.62 MG IV (14:21)
[2021-05-15] MEDS: heparin, porcine 1,000 unit/mL INJ 10 mL 10000 UNIT HE (14:22)
--- NOTE | 2021-05-15 15:40 | PM.PN ---
Subjective Subjective: Lab called regarding bronchioloalveolar lavage positive for trichomonas asahii We will continue her amphotericin B 5 mg/kg/day( started 05/11) plan to transition to azole after susceptibility returns, will touch base with ID Afebrile This morning s, was able to eat clear liquid diet We will advance slowly to full liquid today Patient was very emotional this morning and was crying when her mother was feeding her with the spoon She has ICU related myopathy Plan for dialysis today I did touch base with Dr. Hernandez to not remove dialysis catheter at this point in case we need dialysis over the weekend there is plan for permacath placement on Tuesday next week I requested RT to start chest physiotherapy three times a day along Mucomyst Parents at the bedside Her anticoagulation has been switched to Eliquis 2.5 twice daily, heparin discontinued 05/14 Patient had a bowel movement today, inadequate urine output currently on prednisone 40 mg daily Vitals/I&O/Wt Last Vital Signs Temp 97.6 F 05/15/21 03:00 Pulse 108 H 05/15/21 12:30 Resp 27 H 05/15/21 12:30 BP 122/88 05/15/21 12:30 Pulse Ox 95 05/15/21 12:30 05/15/21 05/15/21 05/15/21 06:59 14:59 22:59 Intake Total 187.85 / 1061.883 220.00 / 220.00 Balance 187.85 / 911.883 220.00 / 220.00 Weight last 48 hrs Weight 58.967 kg Physical Exam Narrative: Patient was Having clear liquid diet Emotionally labile Weakness of upper and lower extremities Nonfocal neuro exam EOMI, PERRLA On lung auscultation severe crackles were noted Abdomen is firm however nontender Parents at the bedside Currently on 2.5 L nasal cannula Parents at the bedside Urinary Catheter Management: Carroll: Cath Placed During This Visit: yes, but has since been removed by the nurse Reason for Continuing Indwelling Catheter: Accurate Measurement of Urinary Output in Critically Ill Patients Urinary Catheter Date of Insertion: 05/11/21 Urinary Catheter Time of Insertion: 14:00 Date Urinary Catheter Removed: 04/28/21 Time Urinary Catheter Discontinued: 10:30 Data : 05/15/21 03:40 05/15/21 03:40 Micro: Microbiology 05/10/21 14:45 Blood Culture - Final Blood NO GROWTH AFTER 5 DAYS 05/10/21 11:50 Blood Culture - Final Blood NO GROWTH AFTER 5 DAYS 05/10/21 15:00 Catheter Tip Culture - Final Central Line Coco parapsilosis A&P Assessment and plan (1) Coco parapsilosis infection: Status: Acute (2) Trichosporonosis: Status: Acute (3) Persistent fever: Status: Acute (4) B12 deficiency anemia: Status: Acute (5) Pulmonary embolism: Status: Acute (6) Acute respiratory distress syndrome (ARDS) due to 2019 novel coronavirus: Status: Acute (7) ATN (acute tubular necrosis): Status: Acute (8) COVID: Status: Acute (9) Anemia: Status: Acute Plan I will write my assessment in italics Respiratory failure requiring mechanical ventilation, ARDS, pulmonary edema related to underlying ATN and COVID-19 05/15 since her extubation she has been doing fine on 2.5 L nasal cannula, bronchioloalveolar lavage positive for trichosporans williami I will continue amphotericin B Will inform ID at night Shock: Required minimal Levophed during dialysis.? Wean off Levophed 05/15 Off levo, blood pressure stable Acute respiratory failure requiring intubation: Multifactorial.? Extubated on 05/14. Most likely secondary to COVID-19, pulmonary embolism along with possible aspiration pneumonia. [facility]put[facility]06[facility]. So far sputum culture? form?04/29 positive for Coco parapalosis. Repeat MRSA swab results negative. Blood cultures from and negative in 5 days. Repeat blood cultures sent on .? Fungal culture sent to [facility].? Sensitivity for fungal culture sent out as well. Vancomycin DC'd on 05/10.?Zosyn stopped on 05/13. CT sinuses negative for invasive fungal sinusitis. 05/15 2.5 L cannula, afebrile, hemodynamically stable Persistent febrile episodes:?Fever curve improving. Patient does have potential sources of infection as stated above.? Also has pulmonary embolism.? Cannot rule out febrile illness secondary to inflammation or antibiotic fevers versus drug fever versus possibility of organizing pneumonia. 05/15: Afebrile ATN: Nephrology on board. Last dialysis on 05/09.? No plan for dialysis today. Repeat dialysis tomorrow. If cultures, blood cultures remain negative early next week and plan for permacath placement.? Discussed with Dr. Sue from surgery. Anemia: No active signs of bleeding.? Can be multifactorial. Reticulocyte, iron panel, folate levels appreciated.? Haptoglobin level good. Received 2 units of blood transfusion during hospitalization.? Hemoglobin 7.8. Found to be vitamin B12 deficient.? Continue with vitamin B12 1000 mcg IM daily for 3 days.? Hypertriglyceridemia induced pancreatitis: Triglycerides finally improving. Continue with home dose of fenofibrate.? Will avoid propofol.? Repeat triglyceride stable. 05/15 patient has been tolerating clear liquid diet, will advance to full liquid Full code Parents stay with her most of the time Attestations Medical Necessity Statement*: Continue ICU management continue ICU management Time Spent in Patient Care: 25mins Coding Level of Care Code Acute Butadiene Converter Utility Operator for g Fwd Diagnoses Coco parapsilosis infection B37.9 Trichosporonosis B36.2 Persistent fever R50.9 B12 deficiency anemia D51.9 Pulmonary embolism I26.99 Acute respiratory distress syndrome (ARDS) due to 2019 novel coronavirus U07.1; J80 ATN (acute tubular necrosis) N17.0 COVID U07.1 Anemia D64.9
[2021-05-15 16:13] LABS: Glucose Point of Care 164 mg/dL (70-110)
[2021-05-15] MEDS: nystatin 100,000 unit/mL UDC 5 mL 100000 UNIT PO (20:38)
[2021-05-15 20:50] LABS: Glucose Point of Care 195 mg/dL (70-110)
[2021-05-16] VITALS (56 sets, daily range): BP systolic 92–132; BP diastolic 60–97; PULSE 85–122; RESP 14–41; TEMP 36.5–37.2; O2SAT 84–99
[2021-05-16] MEDS: ipratropium-albuterol 3 mL Neb INHALATION ×7 (00:38→23:37)
[2021-05-16] MEDS: dexmedeTOMIDine 0.9 % NaCL 400 MCG/100 ML PREMIX 14 MCG IV ×3 (02:55→14:16)
[2021-05-16] MEDS: famotidine 20 mg/2 mL INJ IVP ×2 (03:25→14:18)
[2021-05-16 05:04] LABS: Basophils # 0.1 10^3/uL (0.0-0.1); Basophils % 0.7 %; Eosinophils # 0.3 10^3/uL (0.0-0.8); Eosinophils % 2.3 %; Hematocrit 27.3 % (37.0-47.0); Hemoglobin 8.4 g/dL (11.5-15.3); Lymphocytes # 2.5 10^3/uL (0.8-4.8); Lymphocytes % 19.1 %; Mean Corpuscular HGB Conc 30.8 g/dL (30.0-36.0); Mean Corpuscular Hemoglobin 30.4 pg (28.0-34.0); Mean Corpuscular Volume 98.9 fl (81-99); Monocytes # 1.5 10^3/uL (0.2-0.9); Monocytes % 11.6 %; Neutrophils # 8.21 10^3/uL (1.8-7.7); Neutrophils % 61.7 %; Nucleated Red Blood Cells # 0.2 /100WBC; Nucleated Red Blood Cells % 1.4 %; Platelet Count 460 10^3/cmm (130-400); Red Blood Count 2.76 10^6/uL (4.1-5.3); White Blood Count 13.3 10^3/uL (4.0-10.0)
[2021-05-16 05:30] LABS: Alanine Aminotransferase 15 U/L (0-33); Albumin Level 3.3 g/dL (3.5-5.2); Alkaline Phosphatase 253 IU/L (35-105); Anion Gap 16.2 (5-19); Aspartate Amino Transferase 27 U/L (0-32); Blood Urea Nitrogen 27 mg/dL (6-20); Calcium 9.4 mg/dL (8.5-10.5); Carbon Dioxide 27 mmol/L (22-29); Chloride 96 mmol/L (98-107); Globulin 2.8 g/dL (1.3-4.6); Glomerular Filtration Rate 24.8 mL/min (90-130); Glucose 123 mg/dL (65-115); Osmolality Calculated 288 mOsm/kg (285-295); Potassium 3.2 mmol/L (3.5-5.1); Sodium 136 mmol/L (136-145); Total Bilirubin 0.9 mg/dL (0.15-1.2); Total Protein 6.1 g/dL (6.6-8.7)
[2021-05-16 05:35] LABS: Slide Review Slide Review Perform
[2021-05-16 07:04] LABS: Glucose Point of Care 121 mg/dL (70-110)
[2021-05-16] MEDS: ALPRAZolam 0.5 mg Tablet PO ×3 (08:19→21:10)
[2021-05-16] MEDS: apixaban 5 mg Tablet 2.5 MG PO ×2 (08:19→21:11)
[2021-05-16] MEDS: nystatin 100,000 unit/mL UDC 5 mL 100000 UNIT PO ×4 (08:20→21:09)
[2021-05-16] MEDS: sennosides-docusate Tablet 2 TAB PO (08:20)
[2021-05-16] MEDS: metoprolol tartrate 25 mg Tablet PO ×2 (08:20→21:18)
[2021-05-16] MEDS: fenofibrate 145 mg Tablet PO (08:20)
[2021-05-16] MEDS: predniSONE 20 mg Tablet 40 MG PO (08:20)
[2021-05-16] MEDS: lactulose oral liq 20 gm/30 mL UDC 10 GM PO (08:23)
--- NOTE | 2021-05-16 10:05 | PM.PN ---
Subjective Subjective: she offers no complaints Medications: Reviewed: Yes Vitals/I&O/Wt Last Vital Signs Temp 98.1 F 05/16/21 04:00 Pulse 106 H 05/16/21 08:27 Resp 18 05/16/21 08:23 BP 103/75 05/16/21 08:00 Pulse Ox 93 05/16/21 08:23 05/15/21 05/16/21 05/16/21 22:59 06:59 14:59 Intake Total 1012.103 / 1232.103 100.610 / 1332.713 200 / 200 Output Total 2379 / 2379 Balance -1366.897 / -1146.897 100.610 / -1046.287 200 / 200 Weight last 48 hrs Weight 64.41 kg Weight 69.7 kg Weight 63.503 kg Physical Exam Const: COMMON NORMALS: no acute distress Eye: COMMON NORMALS: no scleral icterus Resp: AUSCULTATION: rhonchi Cardio: COMMON NORMALS: regular rhythm RHYTHM: regular rhythm Extremity: NARRATIVE EXTREMITY EXAM: 1+ bilateral LE edema Urinary Catheter Management: Wynn: Cath Placed During This Visit: yes, but has since been removed by the nurse Reason for Continuing Indwelling Catheter: Accurate Measurement of Urinary Output in Critically Ill Patients Urinary Catheter Date of Insertion: 05/11/21 Urinary Catheter Time of Insertion: 14:00 Date Urinary Catheter Removed: 04/28/21 Time Urinary Catheter Discontinued: 10:30 Data : 05/16/21 04:40 05/16/21 04:40 Other Labs: phos 2 Micro: Microbiology 05/10/21 14:45 Blood Culture - Final Blood NO GROWTH AFTER 5 DAYS 05/10/21 11:50 Blood Culture - Final Blood NO GROWTH AFTER 5 DAYS A&P Assessment and plan (1) Coco parapsilosis infection: Status: Acute (2) Pulmonary embolism: Status: Acute (3) Acute respiratory distress syndrome (ARDS) due to 2019 novel coronavirus: Status: Acute (4) ATN (acute tubular necrosis): Status: Acute (5) Anemia: Hb improving Status: Acute Plan Seen and examined via telemedicine with assistance of RN at bedside 1. Acute kidney injury, wynn removed, no urine output documented. HD yesterday 2. Hypokalemia, hypophosphatemia 3. Coco infection: Blood, urine, sputum positive over last 3 weeks Rec: bladder scan daily. No need for HD today. Replace KPhos - repeat labs tomorrow Attestations Medical Necessity Statement*: see above Time Spent in Patient Care: 16 - 35 minutes Coding Level of Care Code Acute Integrative Medicine Physician for Chg Fwd Exam Expanded Problem Focused Diagnoses Coco parapsilosis infection B37.9 Pulmonary embolism I26.99 Acute respiratory distress syndrome (ARDS) due to 2019 novel coronavirus U07.1; J80 ATN (acute tubular necrosis) N17.0 Anemia D64.9
[2021-05-16] MEDS: insulin lispro 100 unit/1 mL SUBCUT ×3 (11:13→22:47)
[2021-05-16 11:38] LABS: Glucose Point of Care 145 mg/dL (70-110)
[2021-05-16] MEDS: calcium carbonate 500 mg Chew Tablet 1000 MG PO ×2 (14:18→21:11)
[2021-05-16 15:21] LABS: Glucose Point of Care 238 mg/dL (70-110)
[2021-05-16] MEDS: acetylcysteine 200 mg/mL SDV 4 mL INHALATION (15:42)
[2021-05-16 16:54] LABS: E. Chaffeensis AB IGG <1:64; E. Chaffeensis AB IGM <1:20; RMSF IGG NOT DETECTED; RMSF IGM NOT DETECTED
--- NOTE | 2021-05-16 18:38 | P.PN_ITS ---
Subjective Subjective: No events overnight THis am pt did participate for the speech theraphy and chest physio No fever Vitals/I&O/Wt Last Vital Signs Temp 98.9 F 05/16/21 16:47 Pulse 107 H 05/16/21 16:00 Resp 19 H 05/16/21 16:00 BP 98/68 05/16/21 16:00 Pulse Ox 95 05/16/21 16:00 05/16/21 05/16/21 05/16/21 06:59 14:59 22:59 Intake Total 100.610 / 1632.713 398.933 / 398.933 466.467 / 865.400 Output Total 130 / 130 Balance 100.610 / -746.287 398.933 / 398.933 336.467 / 735.400 Weight last 48 hrs Weight 64.41 kg Weight 69.7 kg Weight 63.503 kg Physical Exam Narrative: Pt was getting chest physio when i saw her Non focal neuro exam Parents at the bedside ABd soft S1<S2 sinus tachycardia abd soft Non labored bretahing on 4LNC Urinary Catheter Management: Carroll: Cath Placed During This Visit: yes, but has since been removed by the nurse Reason for Continuing Indwelling Catheter: Accurate Measurement of Urinary Output in Critically Ill Patients Urinary Catheter Date of Insertion: 05/11/21 Urinary Catheter Time of Insertion: 14:00 Date Urinary Catheter Removed: 04/28/21 Time Urinary Catheter Discontinued: 10:30 Data : 05/16/21 04:40 05/16/21 04:40 Micro: Microbiology 05/10/21 14:45 Blood Culture - Final Blood NO GROWTH AFTER 5 DAYS A&P Assessment and plan (1) Trichosporonosis: Status: Acute (2) B12 deficiency anemia: Status: Acute (3) Yeast detected: Status: Acute (4) Pulmonary embolism: Status: Acute (5) Acute respiratory distress syndrome (ARDS) due to 2019 novel coronavirus: Status: Acute (6) ATN (acute tubular necrosis): Status: Acute (7) COVID: Status: Acute (8) Aspiration pneumonia: Status: Acute Plan Today I am going to continue her antimicrobials without significant changes in her regimen Afebrile Might need HD nelly vs Tuesday plan to keep HD cath until Tuesday Continue amphotericin On renal dose of eliquis Chest vest and mucumyst TID ANNIE Appreciate ST recommendations, will advance diet nelly, pt andorsing anorexia Full code Attestations Medical Necessity Statement*: COntinue icu management Time Spent in Patient Care: 20 mins Coding Level of Care Code Acute Lead Caster Helper for Chg Fwd Diagnoses Trichosporonosis B36.2 B12 deficiency anemia D51.9 Yeast detected B37.9 Pulmonary embolism I26.99 Acute respiratory distress syndrome (ARDS) due to 2019 novel coronavirus U07.1; J80 ATN (acute tubular necrosis) N17.0 COVID U07.1 Aspiration pneumonia J69.0
[2021-05-16] MEDS: dexmedeTOMIDine 0.9 % NaCL 400 MCG/100 ML PREMIX 12 MCG IV (21:22)
[2021-05-16 22:35] LABS: Glucose Point of Care 169 mg/dL (70-110)
[2021-05-17] VITALS (53 sets, daily range): BP systolic 85–128; BP diastolic 51–89; PULSE 93–130; RESP 17–48; TEMP 37–37.1; O2SAT 91–100
[2021-05-17] MEDS: famotidine 20 mg/2 mL INJ IVP ×2 (03:22→14:16)
[2021-05-17] MEDS: ipratropium-albuterol 3 mL Neb INHALATION ×6 (03:37→23:16)
[2021-05-17] MEDS: acetylcysteine 200 mg/mL SDV 4 mL INHALATION ×2 (03:37→16:03)
[2021-05-17 05:07] LABS: Anion Gap 17.6 (5-19); Blood Urea Nitrogen 40 mg/dL (6-20); Carbon Dioxide 27 mmol/L (22-29); Chloride 96 mmol/L (98-107); Glomerular Filtration Rate 20.5 mL/min (90-130); Glucose 96 mg/dL (65-115); Osmolality Calculated 294 mOsm/kg (285-295); Potassium 3.6 mmol/L (3.5-5.1); Sodium 137 mmol/L (136-145)
[2021-05-17] MEDS: dexmedeTOMIDine 0.9 % NaCL 400 MCG/100 ML PREMIX 12 MCG IV ×2 (05:43→16:05)
--- NOTE | 2021-05-17 08:00 | XRR_ITS ---
PROCEDURE INFORMATION: Exam: XR Chest Exam date and time: 05/17/2021 8:00 AM Age: 40 years old Clinical indication: Tachypnea; Additional info: Increased respiratory effort TECHNIQUE: Imaging protocol: XR of the chest. Views: 1 view. COMPARISON: CR XR chest 1V portable [id number] 05/12/2021 5:11 AM FINDINGS: Tubes, catheters and devices: Interval removal of the endotracheal tube and enteric tube. There is a left jugular central line present with the tip potentially at/near the inferior cavoatrial junction. Lungs: No significant change in bilateral airspace disease when allowing for darker technique. Pleural spaces: No pleural effusion or pneumothorax. Heart/Mediastinum: The cardiac silhouette is not enlarged. The mediastinal contours are within normal limits. Bones/joints: Slight curvature of the upper thoracic spine convex to the left. XR/XR chest 1V portable [id number] IMPRESSION: 1. No significant change in bilateral airspace disease. 2. Central line tip potentially at/near the inferior cavoatrial junction. Consider repositioning the catheter.
[2021-05-17] MEDS: ALPRAZolam 0.5 mg Tablet PO ×3 (08:14→20:34)
[2021-05-17] MEDS: apixaban 5 mg Tablet 2.5 MG PO (08:14)
[2021-05-17] MEDS: calcium carbonate 500 mg Chew Tablet 1000 MG PO ×3 (08:14→20:35)
[2021-05-17] MEDS: nystatin 100,000 unit/mL UDC 5 mL 100000 UNIT PO ×4 (08:15→20:35)
[2021-05-17] MEDS: predniSONE 20 mg Tablet 40 MG PO (08:15)
[2021-05-17] MEDS: sennosides-docusate Tablet 2 TAB PO (08:15)
[2021-05-17] MEDS: metoprolol tartrate 25 mg Tablet PO ×2 (08:15→20:35)
[2021-05-17] MEDS: fenofibrate 145 mg Tablet PO (08:15)
--- NOTE | 2021-05-17 08:22 | PM.PN ---
Subjective Subjective: more short of breath this morning Medications: Reviewed: Yes Vitals/I&O/Wt Last Vital Signs Temp 98.9 F 05/16/21 16:47 Pulse 111 H 05/17/21 05:52 Resp 40 H 05/17/21 05:00 BP 115/79 05/17/21 05:00 Pulse Ox 91 05/17/21 05:00 05/16/21 05/17/21 05/17/21 22:59 06:59 14:59 Intake Total 603.267 / 1002.200 100 / 1102.200 120 / 120 Output Total 380 / 380 150 / 530 Balance 223.267 / 622.200 -50 / 572.200 120 / 120 Weight last 48 hrs Weight 67.177 kg Weight 64.41 kg Weight 69.7 kg Physical Exam Const: COMMON NORMALS: alert HENMT: OTHER: left IJ dialysis catheter Resp: AUSCULTATION: rales Cardio: COMMON NORMALS: regular rhythm RATE: tachycardic RHYTHM: regular rhythm Extremity: OTHER: edema Neuro: SENSORIUM/ORIENTATION: Yes alert Urinary Catheter Management: Carroll: Cath Placed During This Visit: yes, but has since been removed by the nurse Reason for Continuing Indwelling Catheter: Accurate Measurement of Urinary Output in Critically Ill Patients Urinary Catheter Date of Insertion: 05/11/21 Urinary Catheter Time of Insertion: 14:00 Date Urinary Catheter Removed: 04/28/21 Time Urinary Catheter Discontinued: 10:30 Data : 05/16/21 04:40 05/17/21 07:34 Other Labs: phos 4.6 Other data: CXR: There is a left jugular central line present with the tip potentially at/near the inferior cavoatrial junction. Lungs: No significant change in bilateral airspace disease when allowing for darker technique. A&P Assessment and plan (1) ATN (acute tubular necrosis): Status: Acute Plan Seen and examined via telemedicine with assistance of RN at bedside 1. Acute kidney injury,minimal urine output. More dyspneic today, requiring more NC O2 2. Hypokalemia, hypophosphatemia - resolved 3. Coco infection: Blood, urine, sputum positive over last 3 weeks Rec: HD today, 2L uF as BP tolerates. Plan for tunneled HD catheter tomorrow, or Tuesday. Temporary can be removed today after dialysis if plan for tunneled catheter on Tuesday Attestations Medical Necessity Statement*: see above Time Spent in Patient Care: 16 - 35 minutes Coding Level of Care Code Acute Online Merchandising Manager for Chg Fwd Exam Expanded Problem Focused Diagnoses ATN (acute tubular necrosis) N17.0
[2021-05-17 08:31] LABS: Alanine Aminotransferase 13 U/L (0-33); Albumin Level 3.4 g/dL (3.5-5.2); Alkaline Phosphatase 240 IU/L (35-105); Anion Gap 20.1 (5-19); Aspartate Amino Transferase 20 U/L (0-32); Blood Urea Nitrogen 40 mg/dL (6-20); Carbon Dioxide 23 mmol/L (22-29); Chloride 98 mmol/L (98-107); Globulin 2.3 g/dL (1.3-4.6); Glomerular Filtration Rate 20.5 mL/min (90-130); Glucose 94 mg/dL (65-115); Osmolality Calculated 294 mOsm/kg (285-295); Phosphorus 4.6 mg/dL (2.5-4.5); Potassium 4.1 mmol/L (3.5-5.1); Sodium 137 mmol/L (136-145); Total Bilirubin 0.8 mg/dL (0.15-1.2); Total Protein 5.7 g/dL (6.6-8.7)
--- NOTE | 2021-05-17 09:38 | PC.NURSE ---
Dr. Xavier from Nephrology rounded via telehealth, informed this nurse dialysis will be ordered today
--- NOTE | 2021-05-17 09:40 | PC.NURSE ---
approximately 0800 Dr. Reese at bedside, observed increased RR effort. stated dialysis may be required
[2021-05-17 11:23] LABS: Glucose Point of Care 140 mg/dL (70-110)
--- NOTE | 2021-05-17 11:35 | PM.PN ---
Subjective Subjective: Patient was kept in this morning, requested nephro for dialysis session today Requested chest x-ray which showed central line buckling against right atrium, Patient stated that she is feeling slightly better however tachypnea in high 30s, today she is on 5 L nasal cannula, Had 1 bowel movement today Stage II ulcer was examined around coccyx area Vitals/I&O/Wt Last Vital Signs Temp 98.9 F 05/16/21 16:47 Pulse 125 H 05/17/21 09:00 Resp 45 H 05/17/21 09:00 BP 101/66 05/17/21 09:00 Pulse Ox 93 05/17/21 09:00 05/16/21 05/17/21 05/17/21 22:59 06:59 14:59 Intake Total 603.267 / 1002.200 100 / 1102.200 120 / 120 Output Total 380 / 380 150 / 530 Balance 223.267 / 622.200 -50 / 572.200 120 / 120 Weight last 48 hrs Weight 67.177 kg Weight 64.41 kg Weight 69.7 kg Physical Exam Narrative: Patient was laying supine Stage II ulcer on coccyx with some bruising around the wound Bilateral breath sounds I do not appreciate crackles or rhonchi, she is tachypneic Abdomen firm Bowel sound present Nonfocal neuro exam Right groin Shiley catheter Nonpitting edema of legs She is awake and alert Appropriately answering my questions Nonfocal neuro exam Urinary Catheter Management: Carroll: Cath Placed During This Visit: yes, but has since been removed by the nurse Reason for Continuing Indwelling Catheter: Accurate Measurement of Urinary Output in Critically Ill Patients Urinary Catheter Date of Insertion: 05/11/21 Urinary Catheter Time of Insertion: 14:00 Date Urinary Catheter Removed: 04/28/21 Time Urinary Catheter Discontinued: 10:30 Data : 05/16/21 04:40 05/17/21 07:34 A&P Assessment and plan (1) Trichosporonosis: Status: Acute (2) Coco parapsilosis infection: Status: Acute (3) B12 deficiency anemia: Status: Acute (4) Yeast detected: Status: Acute (5) Pulmonary embolism: Status: Acute (6) Acute respiratory distress syndrome (ARDS) due to 2019 novel coronavirus: Status: Acute (7) ATN (acute tubular necrosis): Status: Acute (8) COVID: Status: Acute (9) Anemia: Status: Acute (10) Aspiration pneumonia: Status: Acute Plan Today my plan is to get her dialyzed because of her tachypnea, repeated chest x-ray Readjust central line Continue amphotericin until Tuesday, [facility] labs will be reported on Tuesday, Case discussed with Dr. Colon today who is planning to discontinue amphotericin B after reviewing culture report, she is not recommending continuation of amphotericin B if it is trichosporons ashaii We might switch to 4-week regimen of azoles Patient has been afebrile, no bacteremia, for now there is plan to put a permacath on Tuesday The dialysis session today I am not going to change her antimicrobials today Continue Eliquis 2.5 twice daily which I am planning to hold from tonight 1 bowel movement today Currently on 5 L nasal cannula For oral ulcers I have started nystatin as well Her tachycardia most likely is because of central line irritating right atria, plan to discontinue metoprolol after readjustment of central line Stage II coccyx ulcer, frequent nursing care, barrier cream, dressing change on daily basis, no need of debridement, Attestations Medical Necessity Statement*: Continue ICU management Time Spent in Patient Care: 20mins Coding Level of Care Code Acute Bureau Director for [facility] Fwd Diagnoses Trichosporonosis B36.2 Coco parapsilosis infection B37.9 B12 deficiency anemia D51.9 Yeast detected B37.9 Pulmonary embolism I26.99 Acute respiratory distress syndrome (ARDS) due to 2019 novel coronavirus U07.1; J80 ATN (acute tubular necrosis) N17.0 COVID U07.1 Anemia D64.9 Aspiration pneumonia J69.0
[2021-05-17] MEDS: heparin, porcine 1,000 unit/mL INJ 10 mL 1000 UNIT IV (16:08)
--- NOTE | 2021-05-17 17:05 | PC.NURSE ---
wound to buttock site cleaned and new dressing applied. The wound is covering the entire sacral area at this time. silvercel applied to wound bed and bioclusive applied. optifoam applied over the wound to provide extra protection and additional padding.
[2021-05-17 18:07] LABS: Glucose Point of Care 169 mg/dL (70-110)
[2021-05-17] MEDS: insulin lispro 100 unit/1 mL SUBCUT (18:10)
[2021-05-17 22:10] LABS: Glucose Point of Care 114 mg/dL (70-110)
[2021-05-18] VITALS (47 sets, daily range): BP systolic 88–130; BP diastolic 50–91; PULSE 91–122; RESP 18–46; TEMP 36.4–37.3; O2SAT 85–100
[2021-05-18] MEDS: famotidine 20 mg/2 mL INJ IVP ×2 (01:49→13:31)
[2021-05-18] MEDS: dexmedeTOMIDine 0.9 % NaCL 400 MCG/100 ML PREMIX 12 MCG IV ×3 (01:50→19:44)
[2021-05-18] MEDS: ipratropium-albuterol 3 mL Neb INHALATION ×6 (03:16→23:16)
[2021-05-18 06:46] LABS: Basophils # 0.1 10^3/uL (0.0-0.1); Basophils % 0.8 %; Eosinophils # 0.7 10^3/uL (0.0-0.8); Eosinophils % 6.1 %; Hematocrit 27.6 % (37.0-47.0); Hemoglobin 8.5 g/dL (11.5-15.3); Lymphocytes # 3.2 10^3/uL (0.8-4.8); Lymphocytes % 25.9 %; Mean Corpuscular HGB Conc 30.8 g/dL (30.0-36.0); Mean Corpuscular Hemoglobin 30.9 pg (28.0-34.0); Mean Corpuscular Volume 100.4 fl (81-99); Monocytes % 8.4 %; Neutrophils # 6.56 10^3/uL (1.8-7.7); Neutrophils % 53.8 %; Nucleated Red Blood Cells # 0.1 /100WBC; Nucleated Red Blood Cells % 0.7 %; Platelet Count 553 10^3/cmm (130-400); Red Blood Count 2.75 10^6/uL (4.1-5.3); White Blood Count 12.2 10^3/uL (4.0-10.0)
[2021-05-18 07:07] LABS: Alanine Aminotransferase 15 U/L (0-33); Albumin Level 3.1 g/dL (3.5-5.2); Alkaline Phosphatase 227 IU/L (35-105); Anion Gap 17.1 (5-19); Aspartate Amino Transferase 30 U/L (0-32); Blood Urea Nitrogen 25 mg/dL (6-20); Calcium 9.2 mg/dL (8.5-10.5); Carbon Dioxide 27 mmol/L (22-29); Chloride 100 mmol/L (98-107); Globulin 2.8 g/dL (1.3-4.6); Glomerular Filtration Rate 29.4 mL/min (90-130); Glucose 109 mg/dL (65-115); Osmolality Calculated 297 mOsm/kg (285-295); Phosphorus 2.4 mg/dL (2.5-4.5); Potassium 3.1 mmol/L (3.5-5.1); Sodium 141 mmol/L (136-145); Total Bilirubin 0.9 mg/dL (0.15-1.2); Total Protein 5.9 g/dL (6.6-8.7)
[2021-05-18 07:43] LABS: Glucose Point of Care 103 mg/dL (70-110)
[2021-05-18] MEDS: lactulose oral liq 20 gm/30 mL UDC 10 GM PO (07:58)
[2021-05-18] MEDS: calcium carbonate 500 mg Chew Tablet 1000 MG PO (08:02)
[2021-05-18] MEDS: sennosides-docusate Tablet 2 TAB PO (08:02)
[2021-05-18] MEDS: fenofibrate 145 mg Tablet PO (08:02)
[2021-05-18] MEDS: predniSONE 20 mg Tablet 40 MG PO (08:03)
[2021-05-18] MEDS: nystatin 100,000 unit/mL UDC 5 mL 100000 UNIT PO ×4 (08:03→21:02)
[2021-05-18] MEDS: ALPRAZolam 0.5 mg Tablet PO ×2 (08:03→15:40)
[2021-05-18] MEDS: metoprolol tartrate 25 mg Tablet PO ×2 (08:03→21:02)
[2021-05-18] MEDS: acetylcysteine 200 mg/mL SDV 4 mL INHALATION (08:37)
[2021-05-18] MEDS: epoetin alfa 1000 Unit/0.05 mL (ESRD) 6000 UNIT SUBCUT (09:47)
--- NOTE | 2021-05-18 10:47 | P.PN_ITS ---
Subjective Subjective: Precious remains weak, minimally verbal, but generally comfortable. She did have dialysis yesterday. She tolerated this well. Hemodynamics remained stable, she is currently off vasopressor agents, blood pressure does remain a little bit soft. She does have some mild global edema. Wynn cath remains in place. Plans noted to have a permacath placed tomorrow morning. Medications: Reviewed: Yes Medication Review Details: Current Medications Acetaminophen (Acetaminophen 325 Mg Tablet) 650 mg PO Q6H PRN PRN Reason: Mild/Mod Pain Or Temp >/= 101 Last Admin: 05/11/21 19:24 Dose: 650 mg Documented by: Albuterol/Ipratropium (Ipratropium-Albuterol 3 Ml Neb) 3 ml INHALATION Q4H.RESPIRATORY [facility] Last Admin: 05/14/21 03:35 Dose: 3 ml Documented by: Calcium Carbonate (Calcium Carbonate 500 Mg Chew Tablet) 1,000 mg PO TID [facility] Last Admin: 05/13/21 20:09 Dose: 1,000 mg Documented by: Dextrose (Dextrose 50% Syringe 50 Ml) 25 ml IVP ONCE PRN; Protocol PRN Reason: hypoglycemia protocol Last Admin: 04/20/21 00:25 Dose: 25 ml Documented by: Dextrose (Dextrose 50% Syringe 50 Ml) 50 ml IVP PRN PRN; Protocol PRN Reason: hypoglycemia protocol Last Admin: 04/19/21 20:35 Dose: 50 ml Documented by: Dextrose (Dextrose 50% Syringe 50 Ml) 25 ml IVP ONCE PRN; Protocol PRN Reason: hypoglycemia protocol Dextrose (Dextrose 50% Syringe 50 Ml) 50 ml IVP PRN PRN; Protocol PRN Reason: hypoglycemia protocol Epoetin Shubham (Epoetin Shubham 1000 Unit/0.05 Ml (Esrd)) 6,000 unit SUBCUT MoWeFr [facility] Last Admin: 05/13/21 11:15 Dose: 6,000 unit Documented by: Ergocalciferol (Ergocalciferol (Vitamin D2) 50,000 Unit Capsule) 50,000 unit PO Q7D [facility] Last Admin: 05/12/21 09:12 Dose: 50,000 unit Documented by: Famotidine (Famotidine 20 Mg/2 Ml Inj) 20 mg IVP Q12H [facility] Last Admin: 05/14/21 02:52 Dose: 20 mg Documented by: Fenofibrate (Fenofibrate 145 Mg Tablet) 145 mg PO DAILY ANNIE Last Admin: 05/13/21 09:32 Dose: 145 mg Documented by: Glucagon (Glucagon 1 Mg/Ml Inj 1 Ml) 1 mg IM ONCE PRN; Protocol PRN Reason: Adult Acute Hypoglycemia Prot. Heparin Sodium (Porcine) (Heparin 5,000 Unit/Ml Inj 1 Ml) 0 unit IV PRN PRN; Protocol PRN Reason: Heparin weight-base protocol Last Admin: 05/14/21 02:36 Dose: 2,300 unit Documented by: Dextrose (D5w) 500 mls @ 100 mls/hr IV ONCE PRN; Protocol PRN Reason: Adult Acute Hypoglycemia Prot Fentanyl 2,500 mcg/ Sodium (Chloride) 250 mls @ 0 mls/hr IV .Q0M ANNIE; Protocol Last Admin: 05/13/21 11:21 Dose: 100 mcg/hr, 10 mls/hr Documented by: Norepinephrine Bitartrate 8 mg (/ Dextrose) 508 mls @ 0 mls/hr IV .Q0M ANNIE; Protocol Last Titration: 05/13/21 23:41 Dose: 0 mcg/min, 0 mls/hr Documented by: dexmedeTOMIDine 0.9 % NaCL (Precedex) 400 mcg in 100 mls @ 0 mls/hr IV PRN PRN PRN Reason: SEDATION Last Admin: 05/14/21 03:18 Dose: 21 mls/hr Documented by: Amphotericin B 300 mg/ (Dextrose) 275 mls @ 137.5 mls/hr IV Q24H ANNIE Last Admin: 05/13/21 16:02 Dose: 137.5 mls/hr Documented by: Albumin Human (Albumin) 12.5 gm in 50 mls @ 60 mls/hr IV PRN PRN PRN Reason: Hypotension and/or symptomatic Heparin Sodium/Sodium Chloride (Heparin Drip) 25,000 unit in 500 mls @ 0 mls/hr IV .Q0M ANNIE; Protocol Last Titration: 05/14/21 02:30 Dose: 13.59 unit/kg/hr, 18 mls/hr Documented by: Insulin Human Lispro (Insulin Lispro 100 Unit/1 Ml) 0 unit SUBCUT Q6H ANNIE; Protocol Last Admin: 05/14/21 04:56 Dose: 2 unit Documented by: Lactulose (Lactulose Oral Liq 20 Gm/30 Ml Udc) 10 gm PO DAILY ANNIE Last Admin: 05/13/21 09:32 Dose: 10 gm Documented by: Lanolin (Lanolin Oint 7 Gm) 1 applic TOPICAL PRN PRN PRN Reason: DRYNESS Last Admin: 05/13/21 17:56 Dose: 1 appful Documented by: Magnesium Hydroxide (Magnesium Hydroxide 30 Ml [facility]) 30 ml PO DAILY [facility] Last Admin: 05/13/21 09:32 Dose: 30 ml Documented by: Metoprolol Tartrate (Metoprolol Tartrate 25 Mg Tablet) 25 mg PO BID@0900,2100 [facility] Last Admin: 05/13/21 20:57 Dose: 25 mg Documented by: Morphine Sulfate (Morphine 4 Mg/Ml Sdv 1 Ml) 1 mg IVP Q4H [facility] Last Admin: 05/14/21 06:09 Dose: 1 mg Documented by: Naloxone HCl (Naloxone 0.4 Mg/Ml Sdv) 0.1 mg IVP Q2M PRN PRN Reason: OPIATERV Ondansetron HCl (Ondansetron 2 Mg/Ml Sdv 2 Ml) 4 mg IVP Q8H PRN PRN Reason: vomiting, or N/V if npo Last Admin: 05/06/21 11:14 Dose: 4 mg Documented by: Prednisone (Prednisone 20 Mg Tablet) 40 mg PO DAILY [facility] Last Admin: 05/13/21 09:32 Dose: 40 mg Documented by: Senna/Docusate Sodium (Sennosides-Docusate Tablet) 2 tab PO DAILY [facility] Last Admin: 05/13/21 09:32 Dose: 2 tab Documented by: Vitals/I&O/Wt Last Vital Signs Temp 98.0 F 05/18/21 07:30 Pulse 102 H 05/18/21 09:22 Resp 22 H 05/18/21 09:22 BP 108/72 05/18/21 08:00 Pulse Ox 94 05/18/21 09:22 05/17/21 05/18/21 05/18/21 22:59 06:59 14:59 Intake Total 100 / 400 Output Total 100 / 100 100 / 200 Balance -100 / 200 0 / 200 Weight last 48 hrs Weight 65.771 kg Weight 67.177 kg Physical Exam Narrative: Constitutional: Extubated HEENT: Wet mucosa, no jvp, non icteric Lungs: Bilaterally scattered rales CVS: S1 S2, no murmurs Abdo: Soft, BS ok Ext 4: Minimal edema, peripheral perfusion with no cyanosis Neurological: Grossly non-focal Urinary Catheter Management: Wynn: Cath Placed During This Visit: yes, but has since been removed by the nurse Reason for Continuing Indwelling Catheter: Accurate Measurement of Urinary Output in Critically Ill Patients Urinary Catheter Date of Insertion: 05/11/21 Urinary Catheter Time of Insertion: 14:00 Date Urinary Catheter Removed: 04/28/21 Time Urinary Catheter Discontinued: 10:30 Data : 05/18/21 06:38 05/18/21 06:38 A&P Assessment and plan (1) ATN (acute tubular necrosis): 1. Acute kidney injury Remains oligoanuric, likely secondary to acute tubular injury Plan for dialysis for tomorrow, no acute indication today Strict I's and O's Close monitoring for recovery Dose medication for GFR less than 15 on dialysis 2. Pancreatitis Secondary to hypertriglyceridemia, triglyceride levels now trending down, below 500 mgmt per medicine 3. Chemistry Labs appreciated, low dose K replacement 4. ID On amphotericin for fungemia. JEAN PIERRE wynn Thank you for consultation, it is a pleasure to follow these cases with you Exam and interview performed with aid of bedside RN using telemedicine Time spent 20 min inc > 50% of time in face to face counseling Pollo Seo MD [facility] [phone] Status: Acute Attestations Medical Necessity Statement*: eval for TONY Coding Level of Care Code Acute Chief Technical Officer for Chg Fwd Diagnoses ATN (acute tubular necrosis) N17.0
[2021-05-18 11:45] LABS: Glucose Point of Care 137 mg/dL (70-110)
[2021-05-18] MEDS: potassium chloride premix 100 ML 50 MEQ IV (11:46)
--- NOTE | 2021-05-18 12:11 | PC.SOCIAL ---
IMM Updated Updated pt's mother on IMM. No questions voiced. Provided pt a copy. Initialed, dated, & timed copy in chart.
--- NOTE | 2021-05-18 13:22 | PM.PN ---
Subjective Subjective: Patient is oligoanuric, potassium 3.1, electrolytes replenished by nephro No plan for dialysis today, I did speak with Dr. Sue who is planning for permacath tomorrow Eliquis has been held since yesterday No bacteremia Plan to discontinue amphotericin B after final culture report from [facility] regarding sputum BAL Her left IJ can be removed if we are able to get PICC line in her left arm, Dr. Sue is planning to put a permacath right IJ Vitals/I&O/Wt Last Vital Signs Temp 98.0 F 05/18/21 07:30 Pulse 115 H 05/18/21 12:00 Resp 37 H 05/18/21 12:00 BP 118/85 05/18/21 12:00 Pulse Ox 90 05/18/21 12:00 05/17/21 05/18/21 05/18/21 22:59 06:59 14:59 Intake Total 100 / 400 400 / 400 Output Total 100 / 100 100 / 200 Balance -100 / 200 0 / 200 400 / 400 Weight last 48 hrs Weight 65.771 kg Weight 67.177 kg Physical Exam Narrative: Patient this morning was calm On 2 L nasal cannula Anasarca Minimal output in the urine bag S1, S2 sinus tachycardia Abdomen soft Nontender EOMI, PERRLA No new focal deficit Stage II ulcer of coccyx area Edema of legs noted Patient is responding to questions appropriately In good spirits today Urinary Catheter Management: Carroll: Cath Placed During This Visit: yes, but has since been removed by the nurse Reason for Continuing Indwelling Catheter: Accurate Measurement of Urinary Output in Critically Ill Patients Urinary Catheter Date of Insertion: 05/11/21 Urinary Catheter Time of Insertion: 14:00 Date Urinary Catheter Removed: 04/28/21 Time Urinary Catheter Discontinued: 10:30 Data : 05/18/21 06:38 05/18/21 06:38 A&P Assessment and plan (1) Trichosporonosis: Status: Acute (2) Coco parapsilosis infection: Status: Acute (3) B12 deficiency anemia: Status: Acute (4) Yeast detected: Status: Acute (5) Pulmonary embolism: Status: Acute (6) Acute respiratory distress syndrome (ARDS) due to 2019 novel coronavirus: Status: Acute (7) ATN (acute tubular necrosis): Status: Acute (8) COVID: Status: Acute (9) Hypovolemic shock: Status: Acute (10) Acute respiratory failure requiring reintubation: Status: Acute (11) Acute pancreatitis: Status: Acute Plan My plan is to get PICC line in left arm and then remove left IJ central line, Dr. Sue is planning to put permacath in right IJ Afebrile, Eliquis has been held since yesterday Electrolytes replenished by resource manager forester No plan for dialysis today N.p.o. after midnight Patient is off vasopressors Currently on Precedex 0.6 Full code Dysphagia diet PE: Anticoagulation on hold Check triglyceride level tomorrow Plan to discharge her this week after permacath placement Plan to discontinue amphotericin B after final report from [facility] lab will discuss with IDxenia likely normal daniele of respiratory tract Attestations Medical Necessity Statement*: Permacath tomorrow Time Spent in Patient Care: 15mins Coding Level of Care Code Acute Slate Splitter for g Fwd Diagnoses Trichosporonosis B36.2 Coco parapsilosis infection B37.9 B12 deficiency anemia D51.9 Yeast detected B37.9 Pulmonary embolism I26.99 Acute respiratory distress syndrome (ARDS) due to 2019 novel coronavirus U07.1; J80 ATN (acute tubular necrosis) N17.0 COVID U07.1 Hypovolemic shock R57.1 Acute respiratory failure requiring reintubation J96.00 Acute pancreatitis K85.90
[2021-05-18] MEDS: insulin lispro 100 unit/1 mL SUBCUT (16:59)
[2021-05-18 17:00] LABS: Glucose Point of Care 203 mg/dL (70-110)
[2021-05-18] MEDS: acetaminophen 325 mg Tablet 650 MG PO (18:30)
--- NOTE | 2021-05-18 20:29 | XRR_ITS ---
PROCEDURE INFORMATION: Exam: XR Chest Exam date and time: 05/18/2021 8:29 PM Age: 40 years old Clinical indication: Device placement; Picc TECHNIQUE: Imaging protocol: XR of the chest. Views: 1 view. COMPARISON: CR (CHEST, ) 05/17/2021 7:54 AM FINDINGS: Limitations: The study is made with less than full inspiration. Tubes, catheters and devices: Left PICC line is in place with its tip in the region of the right atrium. Left jugular central venous catheter tip is in the SVC near the cavoatrial junction. Lungs: Bilateral airspace disease not significantly changed compared with recent previous exams. No new infiltrate is identified. Pleural spaces: Unremarkable. No pleural effusion. No pneumothorax. Heart/Mediastinum: Unremarkable. No cardiomegaly. Bones/joints: Unremarkable. XR/XR chest 1V portable [id number] IMPRESSION: 1. PICC line tip is in the region the right atrium. 2. No change in pulmonary infiltrates.
--- NOTE | 2021-05-18 21:01 | PC.NURSE ---
PICC LEFT arm placed, waiting on official read from [facility].
[2021-05-18 21:03] LABS: Glucose Point of Care 135 mg/dL (70-110)
[2021-05-18] MEDS: morphine 4 mg/mL SDV 1 mL 1 MG IVP (22:00)
--- NOTE | 2021-05-18 22:35 | XRR_ITS ---
PROCEDURE INFORMATION: Exam: XR Chest Exam date and time: 05/18/2021 10:35 PM Age: 40 years old Clinical indication: Device placement; Picc; Additional info: Picc line placement, adjusted picc line placement d/t high pvcs TECHNIQUE: Imaging protocol: XR of the chest. Views: 1 view. COMPARISON: CR (CHEST, ) 05/18/2021 8:31 PM FINDINGS: Limitations: The study is made with less than full inspiration. Tubes, catheters and devices: Left PICC line tip is in the region the right atrium but higher than on the previous exam. Left jugular central venous catheter no longer identified. Lungs: Bilateral pulmonary infiltrates not significantly changed. Pleural spaces: Unremarkable. No pleural effusion. No pneumothorax. Heart/Mediastinum: Unremarkable. No cardiomegaly. Bones/joints: Unremarkable. XR/XR chest 1V portable [id number] IMPRESSION: 1. Higher position of left PICC line noted with its tip still in the region the right atrium. 2. No change in bilateral pulmonary infiltrates.
[2021-05-19] VITALS (91 sets, daily range): BP systolic 73–124; BP diastolic 47–86; PULSE 93–129; RESP 16–52; TEMP 36.5–37.9; O2SAT 3–100
--- NOTE | 2021-05-19 | SCC_ITS ---
Procedure done: 1. Placement of 16 Armenian 23/28 cm long AshSplit tunneled hemodialysis catheter via left internal jugular vein. 2. Fluoroscopic guidance and interpretation for placement of catheter 3. Ultrasound guidance to access the left internal jugular vein 122.7 seconds of fluoroscopic guidance, for a cumulative dose of 19.40 mGy, was provided to Dr. Sue by the radiology department. C-arm images of the chest were saved for the patient's permanent record. RAYOD
[2021-05-19 03:09] LABS: Basophils # 0.1 10^3/uL (0.0-0.1); Basophils % 0.4 %; Eosinophils # 0.4 10^3/uL (0.0-0.8); Eosinophils % 3.7 %; Hematocrit 25.9 % (37.0-47.0); Hemoglobin 7.8 g/dL (11.5-15.3); Lymphocytes # 3.4 10^3/uL (0.8-4.8); Lymphocytes % 28.9 %; Mean Corpuscular HGB Conc 30.1 g/dL (30.0-36.0); Mean Corpuscular Hemoglobin 30.4 pg (28.0-34.0); Mean Corpuscular Volume 100.8 fl (81-99); Monocytes % 8.3 %; Neutrophils # 6.34 10^3/uL (1.8-7.7); Nucleated Red Blood Cells # 0.1 /100WBC; Nucleated Red Blood Cells % 0.6 %; Platelet Count 663 10^3/cmm (130-400); Red Blood Count 2.57 10^6/uL (4.1-5.3); Red Cell Distribution Width 18.7 % (12.1-15.1); White Blood Count 11.7 10^3/uL (4.0-10.0)
[2021-05-19] MEDS: famotidine 20 mg/2 mL INJ IVP (03:14)
[2021-05-19] MEDS: dexmedeTOMIDine 0.9 % NaCL 400 MCG/100 ML PREMIX 12 MCG IV (03:14)
[2021-05-19 03:27] LABS: Alanine Aminotransferase 17 U/L (0-33); Albumin Level 3.1 g/dL (3.5-5.2); Alkaline Phosphatase 212 IU/L (35-105); Anion Gap 15.3 (5-19); Aspartate Amino Transferase 24 U/L (0-32); Blood Urea Nitrogen 35 mg/dL (6-20); Calcium 8.3 mg/dL (8.5-10.5); Carbon Dioxide 26 mmol/L (22-29); Chloride 101 mmol/L (98-107); Globulin 2.4 g/dL (1.3-4.6); Glomerular Filtration Rate 27.7 mL/min (90-130); Glucose 112 mg/dL (65-115); Osmolality Calculated 297 mOsm/kg (285-295); Potassium 3.3 mmol/L (3.5-5.1); Sodium 139 mmol/L (136-145); Total Bilirubin 0.7 mg/dL (0.15-1.2); Total Protein 5.5 g/dL (6.6-8.7); Triglycerides 455 mg/dL (0-150)
[2021-05-19] MEDS: ipratropium-albuterol 3 mL Neb INHALATION ×4 (03:34→23:30)
[2021-05-19] MEDS: acetylcysteine 200 mg/mL SDV 4 mL INHALATION (03:34)
[2021-05-19 03:42] LABS: LDL Cholesterol Direct 85 mg/dL (0-100)
--- NOTE | 2021-05-19 06:43 | P.PN_ITS ---
Subjective Subjective: Patient overall feels well and continues to be extubated. Comfortable in bed. Had a PICC line of the left upper extremity yesterday. And her left-sided neck central line was taken out. Continues to have right femoral access for temporary dialysis. Patient was further evaluated by nephrology, hospitalist and infectious disease and deemed appropriate to proceed with a tunneled hemodialysis catheter today. Medications: Reviewed: Yes Vitals/I&O/Wt Last Vital Signs Temp 98.7 F 05/19/21 04:00 Pulse 110 H 05/19/21 05:41 Resp 38 H 05/19/21 04:00 BP 108/80 05/19/21 04:00 Pulse Ox 90 05/19/21 04:00 05/18/21 05/18/21 05/19/21 14:59 22:59 06:59 Intake Total 1050 / 1050 740 / 1790 100 / 1890 Output Total 340 / 340 210 / 550 Balance 1050 / 1050 400 / 1450 -110 / 1340 Weight last 48 hrs Weight 144 lb 4.8 oz Weight 145 lb Physical Exam Narrative: Patient is conscious alert oriented X3 No apparent distress Head and neck examination PERRLA no masses no cervical lymphadenopathy no jaundice Abdomen nontender nondistended soft no organomegaly guarding or rigidity/no signs of peritonitis Extremities no cyanosis no clubbing no edema Right groin femoral access in place without complications Urinary Catheter Management: Carroll: Cath Placed During This Visit: yes, but has since been removed by the nurse Reason for Continuing Indwelling Catheter: Assist Healing of Perineal & Sacral Wounds- Incontinent Patients Urinary Catheter Date of Insertion: 05/11/21 Urinary Catheter Time of Insertion: 14:00 Date Urinary Catheter Removed: 04/28/21 Time Urinary Catheter Discontinued: 10:30 Data : 05/19/21 03:00 05/19/21 03:00 A&P Assessment and plan (1) Acute kidney injury: Plan of care; After thorough history physical examination and reviewing the chart and reviweing the images with my personal intrepretation.I counseled the patient and the family for tunneled hemodialysis catheter placement, indications, risks including possibility of , stroke, heart attack, major bleeding, infection, pneumonia, organ failure, failure to benefit, prolonged hospital stay, pain after the procedure pneumothorax that may require Chest tube(s) placement and potential injury of major vascular structures that may require Thoractomy, benefits,indications and alternatives were all discussed with the patient, patient understands and is interested to proceed. And while the patient is under conscious sedation we will plan to remove the right femoral vein access catheter. Rationale was carefully and clearly discussed with the patient.Appropriate informed consent have been reviewed and signed. 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
[2021-05-19 07:52] LABS: Glucose Point of Care 102 mg/dL (70-110)
--- NOTE | 2021-05-19 07:56 | P.ANESASSM_ITS ---
Pre-Anesthetic Assessment Height/Weight: Height 12.7 cm Weight 65.453 kg Temp Pulse Resp BP Pulse Ox 97.7 F 116 H 41 H 112/83 89 L 05/19/21 07:47 05/19/21 07:47 05/19/21 07:47 05/19/21 07:47 05/19/21 07:47 Preop Diagnosis: ARF Operation Date: 05/19/21 10:10 Proposed Procedures p Dialysis Catheter Insertion(Not Applicable) - Jeovany Sue MD Familial anesthetic complications: None Was Beta Lissa taken within 24 hours: Yes Was Clonidine taken within 24 hours: N/A Last intake: > 8 hrs Social No alcohol and No tobacco Exam alert, oriented x 3, clear to auscultation bilaterally and regular rate & rhythm tachycardic Airway Mallampati: Class II Dentition: full Pulmonary aspiration pneumonia w/ ARDS, recent covid 10, PE ATN GI pancreatitis Anesthetic Plan ASA status: 4 Anesthesia: MAC Medications/Allergies Home Medications Medication Instructions Recorded Confirmed Last Taken Type norgestimate-ethinyl estradiol 1 tab PO DAILY #84 tab 01/14/21 04/19/21 Unknown Rx 0.18 mg/0.215mg/0.25mg-35 mcg(28)tablet (Tri-Linyah) metformin 1,000 mg tablet 1,000 mg PO BID #180 tab 01/29/21 04/19/21 Unknown Rx duloxetine 60 mg capsule,delayed 60 mg PO DAILY #90 cap 01/30/21 04/19/21 Unknown Rx release fenofibrate nanocrystallized 145 145 mg PO DAILY #90 tab 01/30/21 04/19/21 Unknown Rx mg tablet metoprolol succinate 50 mg 50 mg PO DAILY #90 tab 01/30/21 04/19/21 Unknown Rx tablet,extended release 24 hr (Toprol XL) spironolactone 50 mg tablet 50 mg PO BID #180 tab 01/30/21 04/19/21 Unknown Rx hydrochlorothiazide 25 mg tablet 25 mg PO DAILY #90 tab 02/26/21 04/19/21 Unknown Rx ondansetron 4 mg disintegrating 4 mg PO Q8H PRN #20 tab 04/17/21 04/19/21 Unknown Rx tablet Allergies Allergy/AdvReac Type Severity Reaction Status Date / Time No Known Allergies Allergy Verified 04/20/21 13:09 Current Medications Generic Name Dose Route Start Last Admin Trade Name Freq PRN Reason Stop Dose Admin Acetaminophen 650 mg 04/19/21 02:25 05/18/21 18:30 Acetaminophen 325 Mg Tablet PO 650 mg Q6H PRN Administration Mild/Mod Pain Or Temp >/= 101 Albuterol/Ipratropium 3 ml 04/25/21 12:00 05/19/21 07:51 Ipratropium-Albuterol 3 Ml Neb INHALATION 3 ml Q4H.RESPIRATORY ANNIE Administration Apixaban 2.5 mg 05/14/21 21:00 05/17/21 08:14 Apixaban 5 Mg Tablet PO 2.5 mg BID@0900,2100 ANNIE Administration Dextrose 25 ml 04/19/21 02:25 04/20/21 00:25 Dextrose 50% Syringe 50 Ml IVP 25 ml ONCE PRN Administration hypoglycemia protocol Protocol Dextrose 50 ml 04/19/21 02:25 04/19/21 20:35 Dextrose 50% Syringe 50 Ml IVP 50 ml PRN PRN Administration hypoglycemia protocol Protocol Epoetin Shubham 6,000 unit 05/11/21 09:00 05/18/21 09:47 Epoetin Shubham 1000 Unit/0.05 Ml (Esrd) SUBCUT 6,000 unit MoWeFr ANNIE Administration Ergocalciferol 50,000 unit 04/21/21 07:45 05/12/21 09:12 Ergocalciferol (Vitamin D2) 50,000 Unit Capsule PO 50,000 unit Q7D ANNIE Administration Famotidine 20 mg 04/19/21 02:25 05/19/21 03:14 Famotidine 20 Mg/2 Ml Inj IVP 20 mg Q12H ANNIE Administration Fenofibrate 145 mg 04/22/21 09:00 05/18/21 08:02 Fenofibrate 145 Mg Tablet PO 145 mg DAILY ANNIE Administration Norepinephrine Bitartrate 8 mg 508 mls @ 0 mls/hr 05/06/21 13:15 05/16/21 02:55 / Dextrose IV 2 mcg/min .Q0M ANNIE 7.62 mls/hr Titration Protocol Per Protocol dexmedeTOMIDine 0.9 % NaCL 400 mcg in 100 mls @ 0 mls/hr 05/09/21 19:19 05/19/21 03:14 Precedex IV 12 mls/hr PRN PRN Administration SEDATION Per Protocol Amphotericin B 300 mg/ 300 mls @ 150 mls/hr 05/18/21 14:15 05/18/21 17:52 Dextrose IV Infused Q24H ANNIE Infusion Insulin Human Lispro 0 unit 05/18/21 12:00 05/18/21 21:03 Insulin Lispro 100 Unit/1 Ml SUBCUT Not Given WM&BEDTIME [facility] Protocol Lactulose 10 gm 05/15/21 08:33 05/18/21 07:58 Lactulose Oral Liq 20 Gm/30 Ml Udc PO 10 gm DAILY PRN Administration CONSTIPATION Lanolin 1 applic 05/13/21 17:49 05/13/21 17:56 Lanolin Oint 7 Gm TOPICAL 1 appful PRN PRN Administration DRYNESS Metoprolol Tartrate 25 mg 05/06/21 21:00 05/18/21 21:02 Metoprolol Tartrate 25 Mg Tablet PO 25 mg BID@0900,2100 ANNIE Administration Morphine Sulfate 1 mg 05/15/21 09:28 05/18/21 22:00 Morphine 4 Mg/Ml Sdv 1 Ml IVP 1 mg Q4H PRN Administration PAIN Nystatin 100,000 unit 05/15/21 21:00 05/18/21 21:02 Nystatin 100,000 Unit/Ml Udc 5 Ml PO 100,000 unit QID ANNIE Administration Ondansetron HCl 4 mg 04/19/21 02:25 05/06/21 11:14 Ondansetron 2 Mg/Ml Sdv 2 Ml IVP 4 mg Q8H PRN Administration vomiting, or N/V if npo Prednisone 40 mg 05/12/21 09:00 05/18/21 08:03 Prednisone 20 Mg Tablet PO 40 mg DAILY ANNIE Administration Senna/Docusate Sodium 2 tab 04/22/21 09:00 05/18/21 08:02 Sennosides-Docusate Tablet PO 2 tab DAILY ANNIE Administration Additional Medication Information Current Medications Acetaminophen (Acetaminophen 325 Mg Tablet) 650 mg PO Q6H PRN PRN Reason: Mild/Mod Pain Or Temp >/= 101 Last Admin: 05/11/21 19:24 Dose: 650 mg Documented by: Albuterol/Ipratropium (Ipratropium-Albuterol 3 Ml Neb) 3 ml INHALATION Q 4H.RESPIRATORY ANNIE Last Admin: 05/14/21 03:35 Dose: 3 ml Documented by: Calcium Carbonate (Calcium Carbonate 500 Mg Chew Tablet) 1,000 mg PO TID [facility] Last Admin: 05/13/21 20:09 Dose: 1,000 mg Documented by: Dextrose (Dextrose 50% Syringe 50 Ml) 25 ml IVP ONCE PRN; Protocol PRN Reason: hypoglycemia protocol Last Admin: 04/20/21 00:25 Dose: 25 ml Documented by: Dextrose (Dextrose 50% Syringe 50 Ml) 50 ml IVP PRN PRN; Protocol PRN Reason: hypoglycemia protocol Last Admin: 04/19/21 20:35 Dose: 50 ml Documented by: Dextrose (Dextrose 50% Syringe 50 Ml) 25 ml IVP ONCE PRN; Protocol PRN Reason: hypoglycemia protocol Dextrose (Dextrose 50% Syringe 50 Ml) 50 ml IVP PRN PRN; Protocol PRN Reason: hypoglycemia protocol Epoetin Shubham (Epoetin Shubham 1000 Unit/0.05 Ml (Esrd)) 6,000 unit SUBCUT MoWeFr [facility] Last Admin: 05/13/21 11:15 Dose: 6,000 unit Documented by: Ergocalciferol (Ergocalciferol (Vitamin D2) 50,000 Unit Capsule) 50,000 unit PO Q7D [facility] Last Admin: 05/12/21 09:12 Dose: 50,000 unit Documented by: Famotidine (Famotidine 20 Mg/2 Ml Inj) 20 mg IVP Q12H [facility] Last Admin: 05/14/21 02:52 Dose: 20 mg Documented by: Fenofibrate (Fenofibrate 145 Mg Tablet) 145 mg PO DAILY [facility] Last Admin: 05/13/21 09:32 Dose: 145 mg Documented by: Glucagon (Glucagon 1 Mg/Ml Inj 1 Ml) 1 mg IM ONCE PRN; Protocol PRN Reason: Adult Acute Hypoglycemia Prot. Heparin Sodium (Porcine) (Heparin 5,000 Unit/Ml Inj 1 Ml) 0 unit IV PRN PRN; Protocol PRN Reason: Heparin weight-base protocol Last Admin: 05/14/21 02:36 Dose: 2,300 unit Documented by: Dextrose (D5w) 500 mls @ 100 mls/hr IV ONCE PRN; Protocol PRN Reason: Adult Acute Hypoglycemia Prot Fentanyl 2,500 mcg/ Sodium (Chloride) 250 mls @ 0 mls/hr IV .Q0M [facility]; Protocol Last Admin: 05/13/21 11:21 Dose: 100 mcg/hr, 10 mls/hr Documented by: Norepinephrine Bitartrate 8 mg (/ Dextrose) 508 mls @ 0 mls/hr IV .Q0M [facility]; Protocol Last Titration: 05/13/21 23:41 Dose: 0 mcg/min, 0 mls/hr Documented by: dexmedeTOMIDine 0.9 % NaCL (Precedex) 400 mcg in 100 mls @ 0 mls/hr IV PRN PRN PRN Reason: SEDATION Last Admin: 05/14/21 03:18 Dose: 21 mls/hr Documented by: Amphotericin B 300 mg/ (Dextrose) 275 mls @ 137.5 mls/hr IV Q24H [facility] Last Admin: 05/13/21 16:02 Dose: 137.5 mls/hr Documented by: Albumin Human (Albumin) 12.5 gm in 50 mls @ 60 mls/hr IV PRN PRN PRN Reason: Hypotension and/or symptomatic Heparin Sodium/Sodium Chloride (Heparin Drip) 25,000 unit in 500 mls @ 0 mls/hr IV .Q0M [facility]; Protocol Last Titration: 05/14/21 02:30 Dose: 13.59 unit/kg/hr, 18 mls/hr Documented by: Insulin Human Lispro (Insulin Lispro 100 Unit/1 Ml) 0 unit SUBCUT Q6H [facility]; Protocol Last Admin: 05/14/21 04:56 Dose: 2 unit Documented by: Lactulose (Lactulose Oral Liq 20 Gm/30 Ml Udc) 10 gm PO DAILY [facility] Last Admin: 05/13/21 09:32 Dose: 10 gm Documented by: Lanolin (Lanolin Oint 7 Gm) 1 applic TOPICAL PRN PRN PRN Reason: DRYNESS Last Admin: 05/13/21 17:56 Dose: 1 appful Documented by: Magnesium Hydroxide (Magnesium Hydroxide 30 Ml Udc) 30 ml PO DAILY [facility] Last Admin: 05/13/21 09:32 Dose: 30 ml Documented by: Metoprolol Tartrate (Metoprolol Tartrate 25 Mg Tablet) 25 mg PO BID@0900,2100 [facility] Last Admin: 05/13/21 20:57 Dose: 25 mg Documented by: Morphine Sulfate (Morphine 4 Mg/Ml Sdv 1 Ml) 1 mg IVP Q4H [facility] Last Admin: 05/14/21 06:09 Dose: 1 mg Documented by: Naloxone HCl (Naloxone 0.4 Mg/Ml Sdv) 0.1 mg IVP Q2M PRN PRN Reason: OPIATERV Ondansetron HCl (Ondansetron 2 Mg/Ml Sdv 2 Ml) 4 mg IVP Q8H PRN PRN Reason: vomiting, or N/V if npo Last Admin: 05/06/21 11:14 Dose: 4 mg Documented by: Prednisone (Prednisone 20 Mg Tablet) 40 mg PO DAILY [facility] Last Admin: 05/13/21 09:32 Dose: 40 mg Documented by: Senna/Docusate Sodium (Sennosides-Docusate Tablet) 2 tab PO DAILY [facility] Last Admin: 05/13/21 09:32 Dose: 2 tab Documented by: [facility] Anesthesia Medical History (Updated 05/15/21 @ 15:49 by Paresh Reese MD) Acute respiratory distress syndrome (ARDS) due to 2019 novel coronavirus ATN (acute tubular necrosis) B12 deficiency anemia COVID Essential hypertension GODFREY (generalized anxiety disorder) Hypertriglyceridemia Mild mental handicap No pertinent family history PCOS (polycystic ovarian syndrome) Pulmonary embolism Yeast detected Coco parapsilosis 04/29, endotracheal aspirate Trichosporosis [facility] Surgical History No pertinent past surgical history Family History Father Cancer Social History Smoking and tobacco status: never smoked Alcohol intake: never History of recent travel: No Female Reproductive History Date of last menstrual period: 04/09/21 Data Anesthesia : 05/19/21 03:00 05/19/21 03:00 Short CBC 05/18/21 05/19/21 Range/Units 06:38 03:00 WBC 12.2 H 11.7 H (4.0-10.0) 10^3/uL Hgb 8.5 L 7.8 L (11.5-15.3) g/dL Hct 27.6 L 25.9 L (37.0-47.0) % MCV 100.4 H 100.8 H (81-99) fl Plt Count 553 H 663 H (130-400) 10^3/cmm Neut % (Auto) 53.8 54.0 % Neut # (Auto) 6.56 6.34 (1.8-7.7) 10^3/uL BMP 05/17/21 05/18/21 05/19/21 07:34 06:38 03:00 Sodium 137 141 139 Potassium 4.1 3.1 L 3.3 L Chloride 98 100 101 Carbon Dioxide 23 27 26 BUN 40 H 25 H 35 H Creatinine 2.6 H 1.9 H 2.0 H Glucose 94 109 112 Calcium 10.0 9.2 8.3 L Liver Function 05/17/21 05/18/21 05/19/21 Range/Units 07:34 06:38 03:00 Total Bilirubin 0.8 0.9 0.7 (0.15-1.2) mg/dL AST 20 30 24 (0-32) U/L ALT 13 15 17 (0-33) U/L Alkaline Phosphatase 240 H 227 H 212 H (35-105) IU/L Albumin 3.4 L 3.1 L 3.1 L (3.5-5.2) g/dL Cardiac Studies: Echocardiogram 04/21/21 Transesophageal Echocardiogram 05/13/21
--- NOTE | 2021-05-19 08:44 | PC.NURSE ---
Rounded with Dr. Qamar. Starr to restart 4-6 hours post procedure.
--- NOTE | 2021-05-19 09:37 | PM.PN ---
Subjective Subjective: No acute issues overnight. But remains short of breath today. Chest x-ray noted for bilateral infiltrates consistent with pulmonary edema. 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 Carroll catheter remains in. Permacath pending for today. Medications: Reviewed: Yes Medication Review Details: Current Medications Acetaminophen (Acetaminophen 325 Mg Tablet) 650 mg PO Q6H PRN PRN Reason: Mild/Mod Pain Or Temp >/= 101 Last Admin: 05/11/21 19:24 Dose: 650 mg Documented by: Albuterol/Ipratropium (Ipratropium-Albuterol 3 Ml Neb) 3 ml INHALATION Q4H.RESPIRATORY [facility] Last Admin: 05/14/21 03:35 Dose: 3 ml Documented by: Calcium Carbonate (Calcium Carbonate 500 Mg Chew Tablet) 1,000 mg PO TID [facility] Last Admin: 05/13/21 20:09 Dose: 1,000 mg Documented by: Dextrose (Dextrose 50% Syringe 50 Ml) 25 ml IVP ONCE PRN; Protocol PRN Reason: hypoglycemia protocol Last Admin: 04/20/21 00:25 Dose: 25 ml Documented by: Dextrose (Dextrose 50% Syringe 50 Ml) 50 ml IVP PRN PRN; Protocol PRN Reason: hypoglycemia protocol Last Admin: 04/19/21 20:35 Dose: 50 ml Documented by: Dextrose (Dextrose 50% Syringe 50 Ml) 25 ml IVP ONCE PRN; Protocol PRN Reason: hypoglycemia protocol Dextrose (Dextrose 50% Syringe 50 Ml) 50 ml IVP PRN PRN; Protocol PRN Reason: hypoglycemia protocol Epoetin Shubham (Epoetin Shubham 1000 Unit/0.05 Ml (Esrd)) 6,000 unit SUBCUT MoWeFr [facility] Last Admin: 05/13/21 11:15 Dose: 6,000 unit Documented by: Ergocalciferol (Ergocalciferol (Vitamin D2) 50,000 Unit Capsule) 50,000 unit PO Q7D [facility] Last Admin: 05/12/21 09:12 Dose: 50,000 unit Documented by: Famotidine (Famotidine 20 Mg/2 Ml Inj) 20 mg IVP Q12H [facility] Last Admin: 05/14/21 02:52 Dose: 20 mg Documented by: Fenofibrate (Fenofibrate 145 Mg Tablet) 145 mg PO DAILY [facility] Last Admin: 05/13/21 09:32 Dose: 145 mg Documented by: Glucagon (Glucagon 1 Mg/Ml Inj 1 Ml) 1 mg IM ONCE PRN; Protocol PRN Reason: Adult Acute Hypoglycemia Prot. Heparin Sodium (Porcine) (Heparin 5,000 Unit/Ml Inj 1 Ml) 0 unit IV PRN PRN; Protocol PRN Reason: Heparin weight-base protocol Last Admin: 05/14/21 02:36 Dose: 2,300 unit Documented by: Dextrose (D5w) 500 mls @ 100 mls/hr IV ONCE PRN; Protocol PRN Reason: Adult Acute Hypoglycemia Prot Fentanyl 2,500 mcg/ Sodium (Chloride) 250 mls @ 0 mls/hr IV .Q0M ANNIE; Protocol Last Admin: 05/13/21 11:21 Dose: 100 mcg/hr, 10 mls/hr Documented by: Norepinephrine Bitartrate 8 mg (/ Dextrose) 508 mls @ 0 mls/hr IV .Q0M ANNIE; Protocol Last Titration: 05/13/21 23:41 Dose: 0 mcg/min, 0 mls/hr Documented by: dexmedeTOMIDine 0.9 % NaCL (Precedex) 400 mcg in 100 mls @ 0 mls/hr IV PRN PRN PRN Reason: SEDATION Last Admin: 05/14/21 03:18 Dose: 21 mls/hr Documented by: Amphotericin B 300 mg/ (Dextrose) 275 mls @ 137.5 mls/hr IV Q24H ANNIE Last Admin: 05/13/21 16:02 Dose: 137.5 mls/hr Documented by: Albumin Human (Albumin) 12.5 gm in 50 mls @ 60 mls/hr IV PRN PRN PRN Reason: Hypotension and/or symptomatic Heparin Sodium/Sodium Chloride (Heparin Drip) 25,000 unit in 500 mls @ 0 mls/hr IV .Q0M ANNIE; Protocol Last Titration: 05/14/21 02:30 Dose: 13.59 unit/kg/hr, 18 mls/hr Documented by: Insulin Human Lispro (Insulin Lispro 100 Unit/1 Ml) 0 unit SUBCUT Q6H ANNIE; Protocol Last Admin: 05/14/21 04:56 Dose: 2 unit Documented by: Lactulose (Lactulose Oral Liq 20 Gm/30 Ml Udc) 10 gm PO DAILY ANNIE Last Admin: 05/13/21 09:32 Dose: 10 gm Documented by: Lanolin (Lanolin Oint 7 Gm) 1 applic TOPICAL PRN PRN PRN Reason: DRYNESS Last Admin: 05/13/21 17:56 Dose: 1 appful Documented by: Magnesium Hydroxide (Magnesium Hydroxide 30 Ml Udc) 30 ml PO DAILY [facility] Last Admin: 05/13/21 09:32 Dose: 30 ml Documented by: Metoprolol Tartrate (Metoprolol Tartrate 25 Mg Tablet) 25 mg PO BID@0900,2100 [facility] Last Admin: 05/13/21 20:57 Dose: 25 mg Documented by: Morphine Sulfate (Morphine 4 Mg/Ml Sdv 1 Ml) 1 mg IVP Q4H [facility] Last Admin: 05/14/21 06:09 Dose: 1 mg Documented by: Naloxone HCl (Naloxone 0.4 Mg/Ml Sdv) 0.1 mg IVP Q2M PRN PRN Reason: OPIATERV Ondansetron HCl (Ondansetron 2 Mg/Ml Sdv 2 Ml) 4 mg IVP Q8H PRN PRN Reason: vomiting, or N/V if npo Last Admin: 05/06/21 11:14 Dose: 4 mg Documented by: Prednisone (Prednisone 20 Mg Tablet) 40 mg PO DAILY [facility] Last Admin: 05/13/21 09:32 Dose: 40 mg Documented by: Senna/Docusate Sodium (Sennosides-Docusate Tablet) 2 tab PO DAILY [facility] Last Admin: 05/13/21 09:32 Dose: 2 tab Documented by: Vitals/I&O/Wt Last Vital Signs Temp 97.7 F 05/19/21 07:47 Pulse 97 05/19/21 07:50 Resp 25 H 05/19/21 07:50 BP 112/83 05/19/21 07:47 Pulse Ox 93 05/19/21 07:50 05/18/21 05/19/21 05/19/21 22:59 06:59 14:59 Intake Total 740 / 1790 100 / 1890 Output Total 340 / 340 210 / 550 Balance 400 / 1450 -110 / 1340 Weight last 48 hrs Weight 65.453 kg Weight 65.771 kg Physical Exam Narrative: Constitutional: Extubated HEENT: Wet mucosa, no jvp, non icteric Lungs: Bilaterally scattered rales CVS: S1 S2, no murmurs Abdo: Soft, BS ok Ext 4: Minimal edema, peripheral perfusion with no cyanosis Neurological: Grossly non-focal Urinary Catheter Management: Carrlol: Cath Placed During This Visit: yes, but has since been removed by the nurse Reason for Continuing Indwelling Catheter: Assist Healing of Perineal & Sacral Wounds- Incontinent Patients Urinary Catheter Date of Insertion: 05/11/21 Urinary Catheter Time of Insertion: 14:00 Date Urinary Catheter Removed: 04/28/21 Time Urinary Catheter Discontinued: 10:30 Data : 05/19/21 03:00 05/19/21 03:00 A&P Assessment and plan (1) ATN (acute tubular necrosis): 1. Acute kidney injury Remains oligoanuric, likely secondary to acute tubular injury Plan for dialysis for today prior to permacath given pulm edema Urine output starting, heralding renal recovery? Strict I's and O's Close monitoring for recovery Dose medication for GFR less than 15 on dialysis 2. Pancreatitis Secondary to hypertriglyceridemia, triglyceride levels now trending down, below 500 mgmt per medicine 3. Chemistry Labs appreciated, 4K bath 4. ID On amphotericin for fungemia. 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
--- NOTE | 2021-05-19 10:55 | SC_ITS ---
WS: [id number] C-ARM RADIOGRAPHS CHEST; 3 IMAGES HISTORY: hemodialysis catheter placement COMPARISON: Radiograph 05/18/2021 Intraoperative imaging during dialysis catheter placement. On the last image submitted the tips of th e hemodialysis catheter are at the SVC/caval junction. SC/C-arm FL for CVA [id number] IMPRESSION: Satisfactory positioning of the dialysis catheter via the LEFT jugular vein.
--- NOTE | 2021-05-19 12:16 | PM.PN ---
Subjective Subjective: This morning patient was scheduled for dialysis session before permacath placement No overnight events Patient did put 550 mL urine out Normal colored urine Hemoglobin 10.8 Leukocytosis 9.7 currently patient is on 3 L nasal cannula Hypokalemia noted Dr. Sue has been notified, Dr. Hernandez updated as well Vitals/I&O/Wt Last Vital Signs Temp 97.7 F 05/19/21 07:47 Pulse 97 05/19/21 07:50 Resp 25 H 05/19/21 07:50 BP 112/83 05/19/21 07:47 Pulse Ox 93 05/19/21 07:50 05/18/21 05/19/21 05/19/21 22:59 06:59 14:59 Intake Total 740 / 1790 100 / 1890 Output Total 340 / 340 210 / 550 Balance 400 / 1450 -110 / 1340 Weight last 48 hrs Weight 65.453 kg Weight 65.771 kg Physical Exam Narrative: This morning patient is laying supine Doing well on 3 L nasal cannula Fuhs crackles noted bilaterally on lung auscultation Abdomen is firm a and nontender Yellow-colored urine 150 mL noted Nonpitting edema of legs Patient is awake and alert Weak cough Does show signs of depression Urinary Catheter Management: Carroll: Cath Placed During This Visit: yes, but has since been removed by the nurse Reason for Continuing Indwelling Catheter: Assist Healing of Perineal & Sacral Wounds- Incontinent Patients Urinary Catheter Date of Insertion: 05/11/21 Urinary Catheter Time of Insertion: 14:00 Date Urinary Catheter Removed: 04/28/21 Time Urinary Catheter Discontinued: 10:30 Data : 05/19/21 03:00 05/19/21 03:00 A&P Assessment and plan (1) Trichosporonosis: Status: Acute (2) Coco parapsilosis infection: Status: Acute (3) B12 deficiency anemia: Status: Acute (4) Yeast detected: Status: Acute (5) Pulmonary embolism: Status: Acute (6) Acute respiratory distress syndrome (ARDS) due to 2019 novel coronavirus: Status: Acute (7) ATN (acute tubular necrosis): Status: Acute (8) COVID: Status: Acute (9) Hypertriglyceridemia: Status: Acute (10) Pneumonia: Status: Acute Plan 30 day in the hospital Permacath placement today on 05/19 Afebrile Bronchoalveolar lavage culture results were discussed with ID Plan is to discontinue amphotericin B once we see final results and change to azole No bacteremia or fungemia however catheter tip culture showed Coco Hypoxia related to COVID-19 and ARDS Hypervolemia which is resistant, currently on 3 L nasal cannula Permacath placement for ATN, patient made 550 mL urine Left IJ removed, left arm PICC line placed 05/18 Patient is n.p.o. Will resume Eliquis 6 hours after the permacath placement Might require levo during dialysis For possible organizing pneumonia she was started on prednisone 40 mg daily, she received more than a week, plan to de-escalate steroids Hypertriglyceridemia noted, like to keep it below 500, she might need another insulin GTT if it rises above 500 Continue fenofibrate Plan to discharge her by Tuesday if she stays stable, she will need long-term antifungal treatment, she already got the chair time as per the correctional case manager, Tuesday, Attestations Medical Necessity Statement*: Plan to discharge her by Tuesday if stays stable Time Spent in Patient Care: 25mins Coding Level of Care Code Acute Project Associate for Chg Fwd Diagnoses Trichosporonosis B36.2 Coco parapsilosis infection B37.9 B12 deficiency anemia D51.9 Yeast detected B37.9 Pulmonary embolism I26.99 Acute respiratory distress syndrome (ARDS) due to 2019 novel coronavirus U07.1; J80 ATN (acute tubular necrosis) N17.0 COVID U07.1 Hypertriglyceridemia E78.1 Pneumonia J18.9
[2021-05-19] MEDS: norepinephrine 8 MG in dextrose 5 % 500 ML 7.62 MG IV (12:32)
[2021-05-19 12:45] LABS: Glucose Point of Care 115 mg/dL (70-110)
[2021-05-19] MEDS: epoetin alfa 1000 Unit/0.05 mL (ESRD) 6000 UNIT SUBCUT (12:54)
--- NOTE | 2021-05-19 13:27 | PC.NURSE ---
Patient off unit for surgery 1310.
--- NOTE | 2021-05-19 13:38 | PC.NURSE ---
Patient rounding with Dr. Seo this morning approx. 0900 with anesthesia at bedside. Dr. Seo placed order for dialysis 2.5 hours to remove 2 liters prior to surgery due to the patients condition. Dr. Seo confirmed dialysis nurse notified of orders being placed approx 0930. Dr. Reese called the unit to confirm dialysis to be done prior to surgery. Dialysis nurse arrived approx. 1115. Dr. Sue rounded with patient approx 1130 discussing treatment plan with Dr. Seo. Dr. Seo agreed to aggressive dialysis treatment to remove original order of 2 [address] in [address] Reese notified of new treatment plan placing an order for Levophed for decreased blood pressure. Dialysis performed with successfully removing 1.2 liters of fluid. Surgical staff took patient to surgery at 1310.
[2021-05-19] MEDS: lidocaine 2% INJ 20 mL INJECTION (13:52)
[2021-05-19] MEDS: heparin, porcine 1,000 unit/mL INJ 10 mL 10000 UNIT IRRIGATION (13:52)
--- NOTE | 2021-05-19 15:41 | XR_ITS ---
WS: [id number] PORTABLE CHEST HISTORY: Post dialysis catheter placement. COMPARISON: 05/18/2021. Large-bore LEFT dialysis catheter has been placed. The tips overlies the mid to distal SVC. The short er lumen is just beyond the innominate junction with the SVC. Patient also has a left-sided PICC line. The tip of the PICC line is in the region of tricuspid valve plane. Lung volumes are decreased. Moderate to severe diffuse pulmonary opacifications with partial obscurat ion of the aorta. XR/XR chest 1V portable [id number] IMPRESSION: 1. Satisfactory placement of the LEFT dialysis catheter with the tips in the SV C. 2. Recommend retraction of the left-sided PICC line 6 to 7 cm for more optimal positioning. Discussed with Dr. Sue.
--- NOTE | 2021-05-19 16:00 | XR_ITS ---
WS: [id number] PORTABLE CHEST HISTORY: SURGERY COMPARISON: Study earlier the same day. PICC line is been retracted now at the level of the dialysis catheter termination. Double bore LEFT dialysis catheter remains unchanged with the tips in the SVC. Continued bilateral pu lmonary opacifications. Partially obscuring the mediastinal structures. Increased opacification throu ghout the lungs is probably related to patient's pneumonia. XR/XR chest 1V portable [id number] IMPRESSION: Interval repositioning of the LEFT PICC line now in good position with the tip in the distal SVC.
--- NOTE | 2021-05-19 16:34 | P.OP_ITS ---
Operative Report Date of procedure: May 19, 2021 Pre-op diagnosis: Preop Diagnosis ARF Preop Diagnosis positive fungal culture from multiple sites, rule out endocarditis Procedure done: 1. Placement of 16 Palauan 23/28 cm long AshSplit tunneled hemodialysis catheter via left internal jugular vein. 2. Fluoroscopic guidance and interpretation for placement of catheter 3. Ultrasound guidance to access the left internal jugular vein Surgeon: Jeovany Sue MD Informatics Analyst: Surgical Whitney Murillo and Lulu Circulating nurses Elicia Vallejo and Dilia Anesthesia: MAC (Anabell Steel MARINE ENGINE MACHINIST student Donna and Dr. Almaguer) Estimated blood loss (mL): 25 IV fluids: 300 Procedure: Patient was identified in the holding area and taken to the operative room and placed in supine position ,both arms were tucked,Time-out was done verifying the patient's name/date of /planned procedure and destination after the procedure, all were in agreement.SCDs confirmed to be functioning, intubated by anesthesia ,patient was given prophylactic antibiotics administered per protocol, and beta sofia protocol was confirmed, appropriate positioning of the patient was done by me. Medications were reviewed to assess for anticoagulant usage. Risks and benefits and prevention of central line associated blood stream infection (CLABSI) were discussed with the patient/CPOA, and a consent was obtained. Monitors were in place and monitored throughout the procedure. All necessary supplies were available prior to start. Hand hygiene was completed prior to starting. Maximum barrier technique was utilized including a sterile gown, sterile gloves with a hat and mask. Site was was prepped with [chlorhexidine] and a full body drape was placed. 5 mL of 2% lidocaine was injected into the skin with a 25 gauge needle. Prep& drape was done under the usual sterile technique of upper chest right and left as well as the neck both sides, lidocaine 2% was injected at the site of the stick, started by right internal jugular vein(which appeared smaller than the left one) stick that retrieved venous blood was obtained from the first stick yet the guidewire would not thread with ease and I had to repeat multiple sticks and at one time and had arterial blood that had to abort and apply pressure for at least 10 minutes. I decided at this point to go to the right subclavian vein and I was able to have an access and thread the wire and dilators and created a tunnel for the tunneled hemodialysis catheter and brought it at the entrance site of the dilators yet on placement of the catheter via the sheath after the wire was taken out, It did not curve towards the right atrium as it should and was more towards the left innominate vein and at this point I decided to abort this in encounter as well and hold pressure for few good minutes. The whole system was taken out and patient maintained to be hemodynamically stable. At this point I decided to access the left internal jugular vein which looked to be wide and patent. I was able to retrieve venous blood,and a guidewire was then threaded without any difficulty and under the guidance of fluoroscopy position was confirmed to be in the IVC, there was no PVC changes, at that point the guidewire was secured to the drapes with a hemostat and the needle was taken out, attention was then deviated towards creation of an insert for the HD catheter at the left upper chest, were lidocaine 2% was injected using an 11 blade knife skin incision was created dissection using a hemostat to create an entrance and for the HD catheter to be inserted were it was connected to a tunneler, and the tunneler was used to accommodate the catheter of the HD catheter to be delivered through the incision first created at the site of the stick ,which is at the left side of the neck, a small dara was created with 11 blade knife to allow delivery of the catheter outside the wound ,at that point under fluoroscopy,serial dilators were done that come in the in the KIT, followe d by that a dilator with the sheath introduced onto the guidewire ,the dilator and the wire were retrieved and the catheter of the port was introduced via the sheath where it was peeled off and the catheter maintained, to be in good position in the right atrium after some adjustments using different guidewires. Both ports were flushed with diluted heparin and appropriate blood was retrieved first, Hep-Lock's were then applied The whole procedure was done under fluoroscopy , the position maintained to be in the rt atrium that was confirmed with fluoroscopy, and the fluoroscopy interpretation was done by me throughout the entire procedure. And with the help of Dr. Shni over the phone to adjust the tip of the catheter in a better position and that was achieved and also she did have a comment that the PICC line is far distal and had to pull 7 cm out and we did get a another chest x-ray and it looked in an appropriate position. All stick sites was closed by 3-0 Vicryl deep subdermal interrupted sutures on both sides of the neck and chest followed by 4-0 Monocryl and Dermabond was used followed by dry dressing was applied. A 3/0 nylon was used to secure the hemodialysis catheter onto the anterior chest wall on the left side Patient tolerated the procedure well was taken to the ICU Count was correct at the end of the procedure I was present for the whole entire procedure. Position of the catheter was checked with a postoperative chest x-ray and it was in good position without evidence of pneumothorax on both sides of the Thorax.
--- NOTE | 2021-05-19 17:13 | PC.OT ---
OT tx withheld today as pt receiving dialysis then port placement. Will check on pt status tomorrow.
[2021-05-19] MEDS: acetaminophen 325 mg Tablet 650 MG PO (17:17)
[2021-05-19] MEDS: ergocalciferol (vitamin D2) 50,000 Unit Capsule 50000 UNIT PO (17:17)
[2021-05-19] MEDS: nystatin 100,000 unit/mL UDC 5 mL 100000 UNIT PO ×2 (17:18→20:30)
[2021-05-19 17:30] LABS: Glucose Point of Care 130 mg/dL (70-110)
--- NOTE | 2021-05-19 17:41 | PC.NURSE ---
Patient back to room at 1620 from OR. PICC line in left arm pulled out 7 cm. Tunneled dialysis port placed in left chest. Levophen running at 2 mcg/min. Blood pressure 122/80. Map remained above 65. Levophen now off. Patient not on precedex coming back from surgery. Patient remains calm and relaxed. Precedex not resumed. Vitals WNL.
[2021-05-19 20:28] LABS: Glucose Point of Care 149 mg/dL (70-110)
[2021-05-19] MEDS: metoprolol tartrate 25 mg Tablet PO (20:31)
[2021-05-19] MEDS: insulin lispro 100 unit/1 mL SUBCUT (20:32)
[2021-05-19] MEDS: morphine 4 mg/mL SDV 1 mL 1 MG IVP (22:02)
[2021-05-20] VITALS (85 sets, daily range): BP systolic 91–137; BP diastolic 55–83; PULSE 90–126; RESP 16–46; TEMP 37.3–37.6; O2SAT 78–100; BMI 28.5
[2021-05-20] MEDS: dexmedeTOMIDine 0.9 % NaCL 400 MCG/100 ML PREMIX 8.8 MCG IV ×2 (00:47→10:14)
[2021-05-20] MEDS: famotidine 20 mg/2 mL INJ IVP ×2 (02:20→13:59)
[2021-05-20] MEDS: ipratropium-albuterol 3 mL Neb INHALATION ×6 (03:49→23:47)
[2021-05-20] MEDS: morphine 4 mg/mL SDV 1 mL 1 MG IVP (04:14)
[2021-05-20 04:39] LABS: Hematocrit 24.9 % (37.0-47.0); Hemoglobin 7.5 g/dL (11.5-15.3); Mean Corpuscular HGB Conc 30.1 g/dL (30.0-36.0); Mean Corpuscular Volume 102.9 fl (81-99); Mean Platelet Volume 10.1 fL (7.4-10.4); Platelet Count 481 10^3/cmm (130-400); Red Blood Count 2.42 10^6/uL (4.1-5.3); Red Cell Distribution Width 19.6 % (12.1-15.1); White Blood Count 11.8 10^3/uL (4.0-10.0)
[2021-05-20 04:47] LABS: Blood Urea Nitrogen 30 mg/dL (6-20); Calcium 8.8 mg/dL (8.5-10.5); Carbon Dioxide 21 mmol/L (22-29); Chloride 103 mmol/L (98-107); Glomerular Filtration Rate 31.3 mL/min (90-130); Glucose 119 mg/dL (65-115); Magnesium 1.9 mg/dL (1.7-2.3); Osmolality Calculated 299 mOsm/kg (285-295); Phosphorus 3.9 mg/dL (2.5-4.5); Sodium 141 mmol/L (136-145); Triglycerides 556 mg/dL (0-150)
[2021-05-20 04:52] LABS: Anion Gap 20.8 (5-19); Potassium 3.8 mmol/L (3.5-5.1)
[2021-05-20 05:05] LABS: LDL Cholesterol Direct 75 mg/dL (0-100)
[2021-05-20 05:19] LABS: Absolute Eosinophils 0.7 10^3/cmm (0.0-0.7); Absolute Segmented Neutrophil 6.8 10/cmm (1.6-7.1); Band Neutrophils Absolute 1.7 10^3/cmm (0.0-1.2); Eosinophils 6 %; Lymphocytes 13 %; Monocytes Absolute 0.6 10^3/cmm (0.1-0.6); Segmented Neutrophils 58 %; Slide Review Slide Review Perform; Total Cells Counted 100 (0-100)
[2021-05-20 05:20] LABS: Absolute Neutrophil 8.5 10^3/cmm (1.4-6.5); Corrected White Blood Count 11.3 10^3/cmm (4.8-10.8); Lymphocytes Absolute 1.7 10^3/cmm (1.2-3.4); Platelet Estimate Increased (Normal); Polychromasia 1+
[2021-05-20 05:21] LABS: Anisocytosis 2+
[2021-05-20] MEDS: sennosides-docusate Tablet 2 TAB PO (07:59)
[2021-05-20] MEDS: nystatin 100,000 unit/mL UDC 5 mL 100000 UNIT PO ×4 (07:59→20:26)
[2021-05-20] MEDS: predniSONE 20 mg Tablet PO (07:59)
[2021-05-20] MEDS: fenofibrate 145 mg Tablet PO (08:00)
[2021-05-20] MEDS: metoprolol tartrate 25 mg Tablet PO ×2 (08:00→20:25)
[2021-05-20 08:10] LABS: Glucose Point of Care 125 mg/dL (70-110)
--- NOTE | 2021-05-20 09:46 | PM.PN ---
Subjective Subjective: This morning starting insulin for hypertriglyceridemia With D5 She is going for dialysis today Shiley catheter has not been removed Dr. Sue is plan to remove once we are sure that permacath is not troubleshooting Low-grade fever noted Vitals/I&O/Wt Last Vital Signs Temp 99.3 F 05/20/21 04:00 Pulse 100 05/20/21 07:37 Resp 24 H 05/20/21 07:30 BP 97/59 05/20/21 06:30 Pulse Ox 97 05/20/21 07:30 05/19/21 05/20/21 05/20/21 22:59 06:59 14:59 Intake Total 729.323 / 889.323 58.346 / 947.669 Output Total 325 / 325 Balance 729.323 / 889.323 -266.654 / 622.669 Weight last 48 hrs Weight 64.093 kg Weight 65.453 kg Physical Exam Narrative: Patient is laying supine Carroll catheter draining yellow urine Nonfocal neuro exam Fatigue and lethargy positive Saturating well on oxygen at 3 L Abdomen is firm nontender Bilateral breath sounds with less crackles as compared to yesterday Permacath without any oozing of blood from the dressing Right femoral Shiley in place Left arm PICC line in place which has been pulled by 7 cm Urinary Catheter Management: Carroll: Cath Placed During This Visit: yes, but has since been removed by the nurse Reason for Continuing Indwelling Catheter: Assist Healing of Perineal & Sacral Wounds- Incontinent Patients Urinary Catheter Date of Insertion: 05/11/21 Urinary Catheter Time of Insertion: 14:00 Date Urinary Catheter Removed: 04/28/21 Time Urinary Catheter Discontinued: 10:30 Data : 05/21/21 04:41 05/21/21 11:56 A&P Assessment and plan (1) S/P dialysis catheter insertion: Status: Acute (2) Coco parapsilosis infection: Status: Acute (3) B12 deficiency anemia: Status: Acute (4) Yeast detected: Status: Acute (5) Pulmonary embolism: Status: Acute (6) Acute respiratory distress syndrome (ARDS) due to 2019 novel coronavirus: Status: Acute (7) COVID: Status: Acute (8) ATN (acute tubular necrosis): Status: Acute (9) Anemia: Status: Acute Plan Secondary to hypertriglyceridemia adding insulin with D5 Permacath placed 05/19: Dialysis today Patient will need long-term antifungal De-escalate steroids gradually 05/15 patient was extubated, doing well on 3 L cannula Requires vasopressors during dialysis Low-grade fever noted Anemia of chronic disease status post 2 units PRBC during this hospitalization Stage II sacral ulcer OptiForm, dry dressing, nursing care Check lipase levels Full code SNF placement Dysphagia diet Attestations Medical Necessity Statement*: Continue ICU management continue ICU Time Spent in Patient Care: 20min Coding Level of Care Code Acute Director Pharmacology for Chg Fwd Diagnoses S/P dialysis catheter insertion Z95.828; Z99.2 Coco parapsilosis infection B37.9 B12 deficiency anemia D51.9 Yeast detected B37.9 Pulmonary embolism I26.99 Acute respiratory distress syndrome (ARDS) due to 2019 novel coronavirus U07.1; J80 COVID U07.1 ATN (acute tubular necrosis) N17.0 Anemia D64.9
--- NOTE | 2021-05-20 09:54 | P.PN_ITS ---
Subjective Subjective: Precious seems much more comfortable today. Still requires a facemask for oxygenation, currently on 3 L. Urine output remains low but is starting to cigar packer and picker again to the tune of 325 mL over the last 24 hours. Minimal global extremity edema and lungs do sound a little more clear today. Medications: Reviewed: Yes Medication Review Details: Current Medications Acetaminophen (Acetaminophen 325 Mg Tablet) 650 mg PO Q6H PRN PRN Reason: Mild/Mod Pain Or Temp >/= 101 Last Admin: 05/11/21 19:24 Dose: 650 mg Documented by: Albuterol/Ipratropium (Ipratropium-Albuterol 3 Ml Neb) 3 ml INHALATION Q4H.RESPIRATORY ANNIE Last Admin: 05/14/21 03:35 Dose: 3 ml Documented by: Calcium Carbonate (Calcium Carbonate 500 Mg Chew Tablet) 1,000 mg PO TID [facility] Last Admin: 05/13/21 20:09 Dose: 1,000 mg Documented by: Dextrose (Dextrose 50% Syringe 50 Ml) 25 ml IVP ONCE PRN; Protocol PRN Reason: hypoglycemia protocol Last Admin: 04/20/21 00:25 Dose: 25 ml Documented by: Dextrose (Dextrose 50% Syringe 50 Ml) 50 ml IVP PRN PRN; Protocol PRN Reason: hypoglycemia protocol Last Admin: 04/19/21 20:35 Dose: 50 ml Documented by: Dextrose (Dextrose 50% Syringe 50 Ml) 25 ml IVP ONCE PRN; Protocol PRN Reason: hypoglycemia protocol Dextrose (Dextrose 50% Syringe 50 Ml) 50 ml IVP PRN PRN; Protocol PRN Reason: hypoglycemia protocol Epoetin Shubham (Epoetin Shubham 1000 Unit/0.05 Ml (Esrd)) 6,000 unit SUBCUT MoWeFr [facility] Last Admin: 05/13/21 11:15 Dose: 6,000 unit Documented by: Ergocalciferol (Ergocalciferol (Vitamin D2) 50,000 Unit Capsule) 50,000 unit PO Q7D [facility] Last Admin: 05/12/21 09:12 Dose: 50,000 unit Documented by: Famotidine (Famotidine 20 Mg/2 Ml Inj) 20 mg IVP Q12H [facility] Last Admin: 05/14/21 02:52 Dose: 20 mg Documented by: Fenofibrate (Fenofibrate 145 Mg Tablet) 145 mg PO DAILY [facility] Last Admin: 05/13/21 09:32 Dose: 145 mg Documented by: Glucagon (Glucagon 1 Mg/Ml Inj 1 Ml) 1 mg IM ONCE PRN; Protocol PRN Reason: Adult Acute Hypoglycemia Prot. Heparin Sodium (Porcine) (Heparin 5,000 Unit/Ml Inj 1 Ml) 0 unit IV PRN PRN; Protocol PRN Reason: Heparin weight-base protocol Last Admin: 05/14/21 02:36 Dose: 2,300 unit Documented by: Dextrose (D5w) 500 mls @ 100 mls/hr IV ONCE PRN; Protocol PRN Reason: Adult Acute Hypoglycemia Prot Fentanyl 2,500 mcg/ Sodium (Chloride) 250 mls @ 0 mls/hr IV .Q0M ANNIE; Protocol Last Admin: 05/13/21 11:21 Dose: 100 mcg/hr, 10 mls/hr Documented by: Norepinephrine Bitartrate 8 mg (/ Dextrose) 508 mls @ 0 mls/hr IV .Q0M ANNIE; Protocol Last Titration: 05/13/21 23:41 Dose: 0 mcg/min, 0 mls/hr Documented by: dexmedeTOMIDine 0.9 % NaCL (Precedex) 400 mcg in 100 mls @ 0 mls/hr IV PRN PRN PRN Reason: SEDATION Last Admin: 05/14/21 03:18 Dose: 21 mls/hr Documented by: Amphotericin B 300 mg/ (Dextrose) 275 mls @ 137.5 mls/hr IV Q24H ANNIE Last Admin: 05/13/21 16:02 Dose: 137.5 mls/hr Documented by: Albumin Human (Albumin) 12.5 gm in 50 mls @ 60 mls/hr IV PRN PRN PRN Reason: Hypotension and/or symptomatic Heparin Sodium/Sodium Chloride (Heparin Drip) 25,000 unit in 500 mls @ 0 mls/hr IV .Q0M ANNIE; Protocol Last Titration: 05/14/21 02:30 Dose: 13.59 unit/kg/hr, 18 mls/hr Documented by: Insulin Human Lispro (Insulin Lispro 100 Unit/1 Ml) 0 unit SUBCUT Q6H ANNIE; Protocol Last Admin: 05/14/21 04:56 Dose: 2 unit Documented by: Lactulose (Lactulose Oral Liq 20 Gm/30 Ml Udc) 10 gm PO DAILY ANNIE Last Admin: 05/13/21 09:32 Dose: 10 gm Documented by: Lanolin (Lanolin Oint 7 Gm) 1 applic TOPICAL PRN PRN PRN Reason: DRYNESS Last Admin: 05/13/21 17:56 Dose: 1 appful Documented by: Magnesium Hydroxide (Magnesium Hydroxide 30 Ml Udc) 30 ml PO DAILY [facility] Last Admin: 05/13/21 09:32 Dose: 30 ml Documented by: Metoprolol Tartrate (Metoprolol Tartrate 25 Mg Tablet) 25 mg PO BID@0900,2100 [facility] Last Admin: 05/13/21 20:57 Dose: 25 mg Documented by: Morphine Sulfate (Morphine 4 Mg/Ml Sdv 1 Ml) 1 mg IVP Q4H [facility] Last Admin: 05/14/21 06:09 Dose: 1 mg Documented by: Naloxone HCl (Naloxone 0.4 Mg/Ml Sdv) 0.1 mg IVP Q2M PRN PRN Reason: OPIATERV Ondansetron HCl (Ondansetron 2 Mg/Ml Sdv 2 Ml) 4 mg IVP Q8H PRN PRN Reason: vomiting, or N/V if npo Last Admin: 05/06/21 11:14 Dose: 4 mg Documented by: Prednisone (Prednisone 20 Mg Tablet) 40 mg PO DAILY [facility] Last Admin: 05/13/21 09:32 Dose: 40 mg Documented by: Senna/Docusate Sodium (Sennosides-Docusate Tablet) 2 tab PO DAILY [facility] Last Admin: 05/13/21 09:32 Dose: 2 tab Documented by: Vitals/I&O/Wt Last Vital Signs Temp 99.3 F 05/20/21 04:00 Pulse 100 05/20/21 07:37 Resp 24 H 05/20/21 07:30 BP 97/59 05/20/21 06:30 Pulse Ox 97 05/20/21 07:30 05/19/21 05/20/21 05/20/21 22:59 06:59 14:59 Intake Total 729.323 / 889.323 58.346 / 947.669 Output Total 325 / 325 Balance 729.323 / 889.323 -266.654 / 622.669 Weight last 48 hrs Weight 64.093 kg Weight 65.453 kg Physical Exam Narrative: Constitutional: Extubated HEENT: Wet mucosa, no jvp, non icteric Lungs: Bilaterally scattered rales CVS: S1 S2, no murmurs Abdo: Soft, BS ok Ext 4: Minimal edema, peripheral perfusion with no cyanosis Neurological: Grossly non-focal Urinary Catheter Management: Carroll: Cath Placed During This Visit: yes, but has since been removed by the nurse Reason for Continuing Indwelling Catheter: Assist Healing of Perineal & Sacral Wounds- Incontinent Patients Urinary Catheter Date of Insertion: 05/11/21 Urinary Catheter Time of Insertion: 14:00 Date Urinary Catheter Removed: 04/28/21 Time Urinary Catheter Discontinued: 10:30 Data : 05/20/21 04:14 05/20/21 04:14 A&P Assessment and plan (1) ATN (acute tubular necrosis): 1. Acute kidney injury Remains oligoanuric, likely secondary to acute tubular injury, slight improvement in urine output Permacath now in Plan for dialysis tomorrow Strict I's and O's Close monitoring for recovery Dose medication for GFR less than 15 on dialysis 2. Pancreatitis Secondary to hypertriglyceridemia, triglyceride levels now trending down, below 500 mgmt per medicine 3. Chemistry Labs appreciated, K replacement today 4. ID On amphotericin for fungemia. - possible transfer to medical floor Thank you for consultation, it is a pleasure to follow these cases with you Exam and interview performed with aid of bedside RN using telemedicine Time spent 20 min inc > 50% of time in face to face counseling Pollo Seo MD [facility] [phone] Status: Acute Attestations Medical Necessity Statement*: eval for TONY Coding Level of Care Code Acute Panel Edge Painter for Chg Fwd Diagnoses ATN (acute tubular necrosis) N17.0
[2021-05-20] MEDS: FUROsemide 10 mg/mL SDV 10mL 60 MG IVP (10:15)
[2021-05-20] MEDS: atorvastatin 40 mg Tablet 80 MG PO (10:15)
[2021-05-20] MEDS: potassium chloride premix 100 ML 25 MEQ IV (10:16)
[2021-05-20] MEDS: dextrose 5%-sod chloride 0.45% 1,000 ML 75 ML IV ×2 (10:21→23:30)
[2021-05-20] MEDS: insulin regular-human 250 UNIT in sodium chloride 0.9% 250 ML 5.1 UNIT IV (10:30)
--- NOTE | 2021-05-20 10:41 | PC.CHAP ---
Pastoral Care Encounter/Spiritual Assessment Type of Contact [] Declined anesthesiology tech visit [] Patient/Family/Request visit [] Outpatient visit [] Follow-up visit [] Physician referral [] Code/Alert [x] Routine visit [] Staff referral [] Actively dying [] Patient sleeping [x] Family support [] [] Out of room [] Palliative care [] [] Receiving care in room [] Pre-surgical visit [] Trauma [] Long length of stay [x] ICU visit [] Other: Relational/Emotional Strength [] Patient feels connected with others/family/visitors/staff [] Distress [] Loneliness/isolation [] Abandonment Spirituality of Patient [] Person of Emelina [] Attends Scientologist of their Emelina [] Believes in Prayer [] Reads Bible or Rastafari materials [] There are Spiritual issues to be addressed Quality Reviewer Interventions [x] Prayer [x] Active listening [x] Non-anxious presence [x] Spiritual/emotional support [] Crisis/trauma care [] Spiritual counseling [] Bereavement support [] Provided bereavement packet [] Provided Bible/devotional materials [] Provided toy/stuffed animal, coloring book to patient or family member [] Provided Communion [] Anointing/[place] [] Salvation [x] Completed spiritual assessment [] Other: Impact on Illness or Injury [] Angry [] Fearful [] Anxious [] Often cries [] Exhaustion [] Unable to work [] Unable to attend orthodoxy [] Unable to walk/stand [] Unable to read [] Unable to drive [] Unable to eat/drink [] Unable to sleep [] Unable to be with family [] Patient intubated [] Other: Summary patient ate pretty good.. parents always present... patient sore but doing ok Time spent with patient 15 min
[2021-05-20 11:50] LABS: Glucose Point of Care 207 mg/dL (70-110)
[2021-05-20 11:50] LABS: Glucose Point of Care 231 mg/dL (70-110)
[2021-05-20 12:58] LABS: Glucose Point of Care 187 mg/dL (70-110)
[2021-05-20 13:50] LABS: Glucose Point of Care 234 mg/dL (70-110)
[2021-05-20 15:14] LABS: Glucose Point of Care 170 mg/dL (70-110)
--- NOTE | 2021-05-20 15:24 | PM.PN ---
Subjective Subjective: Infectious Disease progress note: Chart reviewed, care plan discussed with primary team Last seen 05/14 No new culture data available since last being seen Remains extubated, on 3lpm supplemental 02 Tunneled HD placed [facility] on 05/19 (s/p Right fem temp HD catheter placed on 05/12) PICC line placed 05/18. Afebrile since 05/12, t max 100.3F on 05/19 post operatively. Medications: Reviewed: Yes Medication Review Details: Abx history: Zosyn 04/20-04/24 then 05/11-05/13; vancomycin 04/20-? , 05/05-05/08; imipenem 04/25- 05/03 ; 05/05- 05/11; atypical coverage: none caspofungin 05/06- 05/11; Ambisome 300mg q24h (~5mg/kg) 05/11- 05/20 Vitals/I&O/Wt Last Vital Signs Temp 99.1 F 05/20/21 07:30 Pulse 116 H 05/20/21 14:00 Resp 16 05/20/21 13:14 BP 100/68 05/20/21 12:45 Pulse Ox 92 05/20/21 13:14 05/20/21 05/20/21 05/20/21 06:59 14:59 22:59 Intake Total 58.346 / 947.669 101.654 / 101.654 Output Total 325 / 325 Balance -266.654 / 622.669 101.654 / 101.654 Weight last 48 hrs Weight 64.093 kg Weight 65.453 kg Physical Exam Narrative: Chart reviewed, not examined Urinary Catheter Management: Carroll: Cath Placed During This Visit: yes, but has since been removed by the nurse Reason for Continuing Indwelling Catheter: Assist Healing of Perineal & Sacral Wounds- Incontinent Patients Urinary Catheter Date of Insertion: 05/11/21 Urinary Catheter Time of Insertion: 14:00 Date Urinary Catheter Removed: 04/28/21 Time Urinary Catheter Discontinued: 10:30 Data : 05/20/21 04:14 05/20/21 04:14 Micro: Microbiology 05/20/21 10:11 Blood Culture - Preliminary Blood SPECIMEN COLLECTED 05/20/21 10:11 Blood Culture - Preliminary Blood SPECIMEN COLLECTED Other data: Pertinent labs: 05/10: MRSA screen: negative Blood cx : 2/20, 05/07, 05/05, 04/28, 04/18: negative to date 05/10: temp HD catheter tip cx : Coco parapsilosis 05/08: BAL cx LLL: no growth, no organisms on gram stain; no fungal elements 05/07: urine cx : coco parapsilosis ; 05/05: urine cx : negative ; 04/19: urine cx : negative 05/06/21: Endotracheal aspirate cx : Trichosporon beigelii based on gram stain identification from SDA plate. Sent to [facility] for molecular testing/confirmation? 05/11/21: fungal blood cx (send out): negative to date 04/29: sputum cx/endotrach aspirate: coco parapsilosis 04/30, 05/06: C diff PCR: negative 05/08: PJP PCR from BAL: negative 05/11: cytology from BAL: chronic inflammation 04/19: COVID PCR : detected ; influenza negative 04/19: Acute hepatitis and HIV serology : negative Imagin/20: venous duplex negative for DVT 05/10: Ct head: no intracranial pathology 05/11: Ct sinus: no evidence of invasive fungal infection 05/08: CXR: B/L pulmonary opacities consistent with PNA 05/07: CT CAP w/o con : prominent small bowel fluid, s/c edema, pancreas reported as normal 04/25 : ct Abd/pelvis w/o contrast : bibasilar opacities, mild residual pancreatitis 04/22: CT CAP:?few filling defects in the left lower lobe pulmonary artery suspicious for pulmonary embolus.Air-fluid level in the stomach. Air distended transverse colon compatible with adynamic ileus.Small amount of pancreatic edema is similar to previous.? 04/18: CT Abd/pelvis: Hazy bilateral pulmonary opacities which are consistent with COVID-19. Acute pancreatitis pancreas is enlarged and edematous with peripancreatic fat stranding. 05/05: B/L pulmonary infiltrates progressed 04/30: diffuse lung opacities with improvement Lines: RIJ temp HD: 04/20-05/11; R fem temp HD: 05/12 R fem CVC 04/20; LIJ CVC 05/06-current Carroll catheter changed on 05/06. A&P Assessment and plan (1) Coco parapsilosis infection: Status: Acute (2) Persistent fever: Status: Acute (3) Pulmonary embolism: Status: Acute (4) Acute respiratory distress syndrome (ARDS) due to 2019 novel coronavirus: Status: Acute (5) ATN (acute tubular necrosis): Status: Acute (6) Acute respiratory failure requiring reintubation: Status: Acute Plan Patient originally admitted for acute pancreatitis related to hypertriglyceridemia, acute hypoxic respiratory failure related to COVID 19 pneumonia, TONY currently on HD , complicated hospital course as outlined on consult note and progress notes. ID consulted for persistent fever and concern for trichosporiosis. Fever now resolved. last febrile 05/13, tmax 100.3F on 05/19 likely to be post op fever No leukocytosis respiratory, blood, urine cx remain negative for bacterial growth, antibacterials discontinued after a prolonged course since 04/20-05/12. Temp HD catheter tip cx (removed 05/11) returned with C. parapsilosis, as did urine and endotracheal aspirate cultures. Blood cx negative for fungemia, however patient has multiple risk factors for invasive fungal infection incl prolonged course of abx, prolonged ICU admission, steroid use, multiple indwelling lines, therefore presumptively on treatment with antifungals. Single Endotracheal aspirate cx on 05/06: Trichosporon beigelii based on gram stain identification from SDA plate, sent to outside lab for molecular testing confirmation.This is still pending. Suspect that trichosopron here more likely to represent colonizer vs contaminant given that patient is without profound underlying immunocompromise and less likely to have invasive trichosporon infection. Currently on Ambisome 5mg/kg q24h since 05/11. Fungal blood culture sent to [facility] on 05/11 remains negative thus far. Had tunneled HD placed on 05/19. planned removal of right fem temp HD line noted. Previously on treatment with Caspofungin 05/06-05/10, ambisome 05/11- HEDY negative for endocarditis Plan: All blood cx remain negative at [facility] [place]. Fungal blood cx sent to [facility] labs on 05/11 additionally negative to date. Discontinue Ambisome today as no other evidence of invasive trochosporon infection, more likely to represent colonization. Change antifungal coverage to Fluconazole 200mg daily (renally dosed for 400mg po daily equivalent based on cr cl/HD status). Recommend total duration of treatment for presumed endovascular infection to be 6 weeks from Shiley removal (05/11-06/22) Recommend follow up with ophthalmology as outpatient to rule out signs of endophthalmitis. Alternate differentials for persistent fever included organizing pneumonia- steroids taper per pulmonary. will follow pending cultures Attestations Medical Necessity Statement*: per admitting Coding Level of Care Code Acute It Admin for Chg Fwd Diagnoses Coco parapsilosis infection B37.9 Persistent fever R50.9 Pulmonary embolism I26.99 Acute respiratory distress syndrome (ARDS) due to 2019 novel coronavirus U07.1; J80 ATN (acute tubular necrosis) N17.0 Acute respiratory failure requiring reintubation J96.00
--- NOTE | 2021-05-20 15:42 | PC.SOCIAL ---
IMM Update pg 2 of IMM updated and reviewed w/ patients father who is @ bedside. Copy provided and copy in chart updated.
[2021-05-20 15:47] LABS: Glucose Point of Care 151 mg/dL (70-110)
[2021-05-20] MEDS: fluconazole 100 mg Tablet 200 MG PO (16:53)
[2021-05-20 17:12] LABS: Glucose Point of Care 120 mg/dL (70-110)
[2021-05-20 17:31] LABS: Glucose Point of Care 111 mg/dL (70-110)
[2021-05-20 18:46] LABS: Glucose Point of Care 120 mg/dL (70-110)
[2021-05-20 19:46] LABS: Glucose Point of Care 149 mg/dL (70-110)
[2021-05-20 20:37] LABS: Glucose Point of Care 156 mg/dL (70-110)
[2021-05-20 21:51] LABS: Glucose Point of Care 153 mg/dL (70-110)
[2021-05-20 22:24] LABS: Glucose Point of Care 136 mg/dL (70-110)
[2021-05-20 23:40] LABS: Glucose Point of Care 116 mg/dL (70-110)
[2021-05-21] VITALS (55 sets, daily range): BP systolic 71–140; BP diastolic 44–91; PULSE 97–122; RESP 18–43; TEMP 36.8–37.1; O2SAT 84–100; BMI 29.0
--- NOTE | 2021-05-21 | XRR_ITS ---
PROCEDURE INFORMATION: Exam: XR Chest Exam date and time: 05/21/2021 5:48 PM Age: 40 years old Clinical indication: Device placement; Picc; Prior surgery; Additional info: Line TECHNIQUE: Imaging protocol: XR of the chest. Views: 1 view. COMPARISON: CR XR chest 1V portable [id number] 05/21/2021 5:11 PM FINDINGS: Tubes, catheters and devices: Left PICC line seen with tip in place approaching the atrial caval junction. Additional left central venous catheter tip in the superior vena cava. Lungs: Patchy bilateral airspace infiltrates. Pleural spaces: Unremarkable. No pleural effusion. No pneumothorax. Heart/Mediastinum: Unremarkable. No cardiomegaly. Bones/joints: Unremarkable. XR/XR chest 1V portable [id number] IMPRESSION: 1. Left PICC line seen with tip in place approaching the atrial caval junction. Additional left central venous catheter tip in the superior vena cava. 2. Patchy bilateral airspace infiltrates.
[2021-05-21 00:25] LABS: Glucose Point of Care 130 mg/dL (70-110)
[2021-05-21 01:45] LABS: Glucose Point of Care 115 mg/dL (70-110)
[2021-05-21] MEDS: acetaminophen 325 mg Tablet 650 MG PO ×2 (01:49→19:28)
[2021-05-21] MEDS: famotidine 20 mg/2 mL INJ IVP ×2 (01:50→14:06)
[2021-05-21] MEDS: dexmedeTOMIDine 0.9 % NaCL 400 MCG/100 ML PREMIX IV ×2 (03:15→22:30)
[2021-05-21 03:26] LABS: Glucose Point of Care 118 mg/dL (70-110)
[2021-05-21 03:26] LABS: Glucose Point of Care 110 mg/dL (70-110)
[2021-05-21] MEDS: ipratropium-albuterol 3 mL Neb INHALATION ×5 (04:16→23:20)
[2021-05-21 04:47] LABS: Glucose Point of Care 110 mg/dL (70-110)
[2021-05-21 05:44] LABS: Glucose Point of Care 110 mg/dL (70-110)
[2021-05-21 05:51] LABS: Anion Gap 14.6 (5-19); Blood Urea Nitrogen 32 mg/dL (6-20); Calcium 8.3 mg/dL (8.5-10.5); Carbon Dioxide 25 mmol/L (22-29); Chloride 103 mmol/L (98-107); Glomerular Filtration Rate 33.5 mL/min (90-130); Glucose 118 mg/dL (65-115); Osmolality Calculated 298 mOsm/kg (285-295); Sodium 140 mmol/L (136-145)
[2021-05-21 05:59] LABS: Potassium 2.6 mmol/L (3.5-5.1)
[2021-05-21 06:05] LABS: Basophils # 0.1 10^3/uL (0.0-0.1); Basophils % 1.1 %; Eosinophils # 0.8 10^3/uL (0.0-0.8); Eosinophils % 6.5 %; Hematocrit 23.7 % (37.0-47.0); Hemoglobin 7.2 g/dL (11.5-15.3); Lymphocytes # 2.9 10^3/uL (0.8-4.8); Lymphocytes % 23.5 %; Mean Corpuscular HGB Conc 30.4 g/dL (30.0-36.0); Mean Corpuscular Hemoglobin 31.3 pg (28.0-34.0); Mean Platelet Volume 10.1 fL (7.4-10.4); Monocytes # 1.4 10^3/uL (0.2-0.9); Monocytes % 11.3 %; Neutrophils # 6.31 10^3/uL (1.8-7.7); Neutrophils % 51.8 %; Nucleated Red Blood Cells # 0.1 /100WBC; Nucleated Red Blood Cells % 0.9 %; Platelet Count 490 10^3/cmm (130-400); Red Cell Distribution Width 19.9 % (12.1-15.1); White Blood Count 12.2 10^3/uL (4.0-10.0)
[2021-05-21 06:08] LABS: Slide Review Slide Review Perform
--- NOTE | 2021-05-21 06:15 | PC.NURSE ---
Critical Lab Informed hospitalist of patient critical potassium level, telephone orders given for K-dur 40meq PO Q1H x3 doses.
--- NOTE | 2021-05-21 06:17 | PC.NURSE ---
Shift Summary Patient had an uneventful shift, she remains alert/oriented. Pressure wound noted to the medial buttock covered with dressing, please see wound assessment for details. No other wounds noted at this time. Carroll catheter drained 1400 mls of urine overnight. D5 with 1/2 NS, insulin and precedex are infusing per protocol-please see MAR for infusion rates. Patient reported pain in the lower back, PRN pain medication administered.
[2021-05-21 06:36] LABS: Glucose Point of Care 109 mg/dL (70-110)
[2021-05-21] MEDS: potassium chloride ER 20 mEq Tablet 40 MEQ PO ×3 (06:50→09:53)
[2021-05-21] MEDS: fluconazole 100 mg Tablet 200 MG PO (08:03)
[2021-05-21] MEDS: predniSONE 20 mg Tablet PO (08:03)
[2021-05-21] MEDS: apixaban 5 mg Tablet 2.5 MG PO ×2 (08:03→20:50)
[2021-05-21] MEDS: sennosides-docusate Tablet 2 TAB PO (08:03)
[2021-05-21] MEDS: fenofibrate 145 mg Tablet PO (08:03)
[2021-05-21] MEDS: atorvastatin 40 mg Tablet 80 MG PO (08:04)
[2021-05-21] MEDS: nystatin 100,000 unit/mL UDC 5 mL 100000 UNIT PO ×4 (08:04→20:50)
[2021-05-21] MEDS: metoprolol tartrate 25 mg Tablet PO ×2 (08:04→20:49)
[2021-05-21] MEDS: heparin, porcine 1,000 unit/mL INJ 10 mL HE (08:05)
[2021-05-21 08:10] LABS: Glucose Point of Care 119 mg/dL (70-110)
[2021-05-21 08:18] LABS: Triglycerides 510 mg/dL (0-150)
[2021-05-21 08:32] LABS: LDL Cholesterol Direct 80 mg/dL (0-100)
[2021-05-21 08:42] LABS: Glucose Point of Care 103 mg/dL (70-110)
[2021-05-21 09:24] LABS: Hepatitis B Surface Antigen Non-Reactive (Nonreactive)
[2021-05-21 09:45] LABS: Glucose Point of Care 111 mg/dL (70-110)
[2021-05-21] MEDS: dextrose 5%-sod chloride 0.45% 1,000 ML 75 ML IV (09:53)
[2021-05-21] MEDS: lactated ringers 1,000 ML 500 ML IV (09:55)
--- NOTE | 2021-05-21 10:16 | P.PN_ITS ---
Subjective Subjective: Precious is seen and examined on hemodialysis today. She is comfortable. Blood pressure did drop down during dialysis. Urine output is much more robust at 1400 mL. Otherwise she is comfortable at this time. Medications: Reviewed: Yes Medication Review Details: Abx history: Zosyn 04/20-04/24 then 05/11-05/13; vancomycin 04/20-? , 05/05-05/08; imipenem 04/25- 05/03 ; 05/05- 05/11; atypical coverage: none caspofungin 05/06- 05/11; Ambisome 300mg q24h (~5mg/kg) 05/11- 05/20 Vitals/I&O/Wt Last Vital Signs Temp 98.6 F 05/21/21 07:00 Pulse 108 H 05/21/21 08:00 Resp 27 H 05/21/21 08:00 BP 100/79 05/21/21 08:00 Pulse Ox 98 05/21/21 08:00 05/20/21 05/21/21 05/21/21 22:59 06:59 14:59 Intake Total 24.5 / 236.744 4673.60 / 1533.701 778.75 / 778.75 Output Total 1400 / 1400 Balance 24.5 / 287.101 -153.40 / 133.701 778.75 / 778.75 Weight last 48 hrs Weight 65.119 kg Weight 64.093 kg Physical Exam Narrative: Constitutional: Extubated HEENT: Wet mucosa, no jvp, non icteric Lungs: Bilaterally scattered rales CVS: S1 S2, no murmurs Abdo: Soft, BS ok Ext 4: Minimal edema, peripheral perfusion with no cyanosis Neurological: Grossly non-focal Urinary Catheter Management: Carroll: Cath Placed During This Visit: yes, but has since been removed by the nurse Reason for Continuing Indwelling Catheter: Accurate Measurement of Urinary Output in Critically Ill Patients Urinary Catheter Date of Insertion: 05/11/21 Urinary Catheter Time of Insertion: 14:00 Date Urinary Catheter Removed: 04/28/21 Time Urinary Catheter Discontinued: 10:30 Data : 05/21/21 04:41 05/21/21 04:41 Micro: Microbiology 05/20/21 10:11 Blood Culture - Preliminary Blood SPECIMEN COLLECTED 05/20/21 10:11 Blood Culture - Preliminary Blood SPECIMEN COLLECTED A&P Assessment and plan (1) ATN (acute tubular necrosis): 1. Acute kidney injury Urine output now robust and creatinine coming down Permacath now in Plan for dialysis tomorrow Will monitor daily for the next few days to see if she is recovering renal function. Creatinine coming down this morning is reassuring.Strict I's and O's Close monitoring for recovery Dose medication for GFR less than 15 on dialysis 2. Pancreatitis Secondary to hypertriglyceridemia, triglyceride levels now trending down, below 500 mgmt per medicine 3. Chemistry Potassium low before dialysis today. We used a 3K bath, will recheck potassium early this afternoon. 4. ID On amphotericin for fungemia. - possible transfer to medical floor Thank you for consultation, it is a pleasure to follow these cases with you Exam and interview performed with aid of bedside RN using telemedicine Time spent 20 min inc > 50% of time in face to face counseling Pollo Seo MD [facility] [phone] Status: Acute Attestations Medical Necessity Statement*: eval for TONY Coding Level of Care Code Acute Endocrinology Specialist for g Fwd Diagnoses ATN (acute tubular necrosis) N17.0
[2021-05-21 11:24] LABS: Glucose Point of Care 130 mg/dL (70-110)
[2021-05-21 12:33] LABS: Potassium 4.3 mmol/L (3.5-5.1)
[2021-05-21 12:45] LABS: Glucose Point of Care 199 mg/dL (70-110)
[2021-05-21 14:06] LABS: Glucose Point of Care 229 mg/dL (70-110)
[2021-05-21 15:32] LABS: Glucose Point of Care 217 mg/dL (70-110)
--- NOTE | 2021-05-21 15:54 | PM.PN ---
Subjective Subjective: This morning patient went for dialysis, she became hypotensive and dialysis had to be stopped, no dialysis for today or tomorrow Currently on insulin and D5 Hypertriglyceridemia Recheck triglyceride in the evening Plan is to keep her in ICU because of her recurrent hypotensive episodes She does require levo and albumin during dialysis Fluconazole started yesterday, amphotericin has been discontinued No febrile events Low-grade fever noted however below 100.4 Blood cultures negative Does make urine intermittently Vitals/I&O/Wt Last Vital Signs Temp 98.6 F 05/21/21 07:00 Pulse 101 H 05/21/21 14:00 Resp 23 H 05/21/21 12:30 BP 118/76 05/21/21 12:30 Pulse Ox 86 L 05/21/21 12:30 05/21/21 05/21/21 05/21/21 06:59 14:59 22:59 Intake Total 1246.60 / 8517.125 1970 Output Total 1400 / 1400 Balance -153.40 / 626.568 2531 Weight last 48 hrs Weight 65.119 kg Weight 64.093 kg Physical Exam Narrative: This morning patient was laying supine Bilateral breath sounds without active crackles Abdomen soft Trace edema of legs Stage II sacral ulcer Awake and alert Able to properly answer my questions Nonfocal neuro exam Currently on 3 L OxiMax Urinary Catheter Management: Wynn: Cath Placed During This Visit: yes, but has since been removed by the nurse Reason for Continuing Indwelling Catheter: Accurate Measurement of Urinary Output in Critically Ill Patients Urinary Catheter Date of Insertion: 05/11/21 Urinary Catheter Time of Insertion: 14:00 Date Urinary Catheter Removed: 04/28/21 Time Urinary Catheter Discontinued: 10:30 Data : 05/21/21 04:41 05/21/21 11:56 Micro: Microbiology 05/20/21 10:11 Blood Culture - Preliminary Blood NEGATIVE TO DATE 05/20/21 10:11 Blood Culture - Preliminary Blood NEGATIVE TO DATE A&P Assessment and plan (1) S/P dialysis catheter insertion: Status: Acute (2) Hypertriglyceridemia: Status: Acute (3) Trichosporonosis: Status: Acute (4) Coco parapsilosis infection: Status: Acute (5) Persistent fever: Status: Acute (6) B12 deficiency anemia: Status: Acute (7) Yeast detected: Status: Acute (8) Pulmonary embolism: Status: Acute (9) Acute respiratory distress syndrome (ARDS) due to 2019 novel coronavirus: Status: Acute (10) ATN (acute tubular necrosis): Status: Acute (11) COVID: Status: Acute (12) Hypovolemic shock: Status: Acute (13) Acute kidney injury: Status: Acute (14) Acute pancreatitis: Status: Acute Plan Patient was admitted on 04/19 for severe metabolic acidosis, hypertriglyceridemia induced pancreatitis, COVID-19 related ARDS First intubation?04/21?after an episode of vomiting while on BiPAP, developed aspiration pneumonia Right IJ dialysis catheter placed?04/20, extubated on?05/01 She did very well between?05/01 and 05/04, she was doing well on room air, wynn removed, antibiotic switched to Augmentin, started making urine, she was able to eat, bowel movements were regular no episodes of vomiting, fever susided Hypertriglyceridemia with pancreatitis improved with insulin gtt and avoiding propofol 05/05?she developed pulmonary edema again, she got worse overnight got transferred to ICU and got intubated on?05/06?for worsening tachypnea 05/15 since her extubation she has been doing fine on 2.5 L oxymaska, bronchioloalveolar lavage positive for trichosporans ashaii Hypovolemic shock: Required minimal Levophed during dialysis.? Wean off Levophed Acute respiratory failure requiring intubation: Multifactorial.? Extubated on 05/14. Most likely secondary to COVID-19, pulmonary embolism along with possible aspiration pneumonia. Sputum culture from 05/06+ for trichosporon Bigelli.(Corrected by [facility], nurse called me into update about the results it is tricosporo asahii) Shiley catheter tip growing fungus. So far sputum culture? form?04/29 positive for Coco parapalosis. Repeat MRSA swab results negative. Blood cultures from and negative in 5 days. Repeat blood cultures sent on .? Fungal culture sent to [facility].? Sensitivity for fungal culture sent out as well. Vancomycin DC'd on 05/10.?Zosyn stopped on 05/13. CT sinuses negative for invasive fungal sinusitis. 05/15 2.5 L cannula, afebrile, hemodynamically stable 05/20 Amphotericin B discontinued, started fluconazole 200 mg daily for next 4 weeks Persistent febrile episodes:?Fever curve improving. Patient does have potential sources of infection as stated above.? Also has pulmonary embolism.? Cannot rule out febrile illness secondary to inflammation or antibiotic fevers versus drug fever versus possibility of organizing pneumonia. Currently afebrile, ATN: Nephrology on board. Became hypotensive during dialysis today no plan for dialysis today and tomorrow closely monitor for resistant hypervolemia Anemia: No active signs of bleeding.? Can be multifactorial. Reticulocyte, iron panel, folate levels appreciated.? Haptoglobin level good. Received 2 units of blood transfusion during hospitalization.? Hemoglobin 7.8. Found to be vitamin B12 deficient.? Continue with vitamin B12 1000 mcg IM daily for 3 days. Switch to p.o. regimen Hypertriglyceridemia induced pancreatitis: Triglyceride about 500 started D5 and insulin on 05/20, check lipase tomorrow patient has been tolerating pur?ed dysphagia diet which was recommended by speech therapist Full code Parents stay with her most of the time Disposition alf placement staffing operations manager working on it My concern is that patient gets hypotensive during dialysis and she will end up in the hospital again She already has a scheduled chair time outpatient Attestations Medical Necessity Statement*: Continue ICU management Time Spent in Patient Care: 15min Coding Level of Care Code Acute Safety Council Director for Chg Fwd Diagnoses S/P dialysis catheter insertion Z95.828; Z99.2 Hypertriglyceridemia E78.1 Trichosporonosis B36.2 Coco parapsilosis infection B37.9 Persistent fever R50.9 B12 deficiency anemia D51.9 Yeast detected B37.9 Pulmonary embolism I26.99 Acute respiratory distress syndrome (ARDS) due to 2019 novel coronavirus U07.1; J80 ATN (acute tubular necrosis) N17.0 COVID U07.1 Hypovolemic shock R57.1 Acute kidney injury N17.9 Acute pancreatitis K85.90
[2021-05-21 16:41] LABS: Glucose Point of Care 213 mg/dL (70-110)
--- NOTE | 2021-05-21 17:04 | XRR_ITS ---
PROCEDURE INFORMATION: Exam: XR Chest Exam date and time: 05/21/2021 5:04 PM Age: 40 years old Clinical indication: Device placement; Picc; Additional info: Line TECHNIQUE: Imaging protocol: XR of the chest. Views: 1 view. COMPARISON: CR XR chest 1V portable [id number] 05/19/2021 4:02 PM FINDINGS: Tubes, catheters and devices: Left PICC line seen with tip in place approaching the atrial caval junction. Additional left central venous catheter tip in the superior vena cava. Lungs: Patchy bilateral airspace infiltrates. Pleural spaces: Unremarkable. No pleural effusion. No pneumothorax. Heart/Mediastinum: Unremarkable. No cardiomegaly. Bones/joints: Unremarkable. XR/XR chest 1V portable [id number] IMPRESSION: 1. Left PICC line seen with tip in place approaching the atrial caval junction. Additional left central venous catheter tip in the superior vena cava. 2. Patchy bilateral airspace infiltrates.
--- NOTE | 2021-05-21 18:02 | PC.NURSE ---
LEFT PICC replaced per Dr. Reese request. HD catheter on CXR shows it is curled but a repeat CXR shows no complications. Dr. Crowell at bedside to confirm.
[2021-05-21 18:16] LABS: Triglycerides 651 mg/dL (0-150)
[2021-05-21 18:31] LABS: Glucose Point of Care 168 mg/dL (70-110)
[2021-05-21] MEDS: heparin 5,000 unit/mL INJ 1 mL 5000 UNIT SUBCUT (18:36)
[2021-05-21 18:40] LABS: LDL Cholesterol Direct 88 mg/dL (0-100)
[2021-05-21 19:43] LABS: Glucose Point of Care 175 mg/dL (70-110)
[2021-05-21] MEDS: FUROsemide 10 mg/mL SDV 2mL 20 MG IVP (20:50)
[2021-05-21 22:44] LABS: Glucose Point of Care 144 mg/dL (70-110)
[2021-05-21 22:44] LABS: Glucose Point of Care 180 mg/dL (70-110)
[2021-05-22] VITALS (46 sets, daily range): BP systolic 118–160; BP diastolic 65–94; PULSE 97–129; RESP 16–45; TEMP 36.7–37.5; O2SAT 81–100; BMI 28.3
[2021-05-22] MEDS: dextrose 5%-sod chloride 0.45% 1,000 ML 75 ML IV (00:23)
[2021-05-22] MEDS: morphine 4 mg/mL SDV 1 mL 1 MG IVP ×3 (00:24→20:46)
[2021-05-22 00:42] LABS: Glucose Point of Care 119 mg/dL (70-110)
[2021-05-22 01:51] LABS: Glucose Point of Care 110 mg/dL (70-110)
[2021-05-22] MEDS: famotidine 20 mg/2 mL INJ IVP (02:27)
[2021-05-22 02:34] LABS: Glucose Point of Care 107 mg/dL (70-110)
[2021-05-22 03:52] LABS: Glucose Point of Care 94 mg/dL (70-110)
[2021-05-22] MEDS: ipratropium-albuterol 3 mL Neb INHALATION ×5 (04:40→19:55)
[2021-05-22 05:30] LABS: Basophils # 0.1 10^3/uL (0.0-0.1); Basophils % 0.9 %; Eosinophils # 0.5 10^3/uL (0.0-0.8); Eosinophils % 4.4 %; Hematocrit 24.7 % (37.0-47.0); Hemoglobin 7.5 g/dL (11.5-15.3); Lymphocytes % 25.1 %; Mean Corpuscular HGB Conc 30.4 g/dL (30.0-36.0); Mean Corpuscular Hemoglobin 31.6 pg (28.0-34.0); Mean Corpuscular Volume 104.2 fl (81-99); Mean Platelet Volume 10.2 fL (7.4-10.4); Monocytes # 1.4 10^3/uL (0.2-0.9); Monocytes % 11.5 %; Neutrophils # 6.24 10^3/uL (1.8-7.7); Neutrophils % 52.5 %; Nucleated Red Blood Cells # 0.1 /100WBC; Nucleated Red Blood Cells % 0.7 %; Platelet Count 407 10^3/cmm (130-400); Red Blood Count 2.37 10^6/uL (4.1-5.3); Red Cell Distribution Width 20.5 % (12.1-15.1); White Blood Count 11.9 10^3/uL (4.0-10.0)
[2021-05-22 05:48] LABS: Triglycerides 459 mg/dL (0-150)
[2021-05-22 05:55] LABS: Anion Gap 16.7 (5-19); Blood Urea Nitrogen 18 mg/dL (6-20); Calcium 8.7 mg/dL (8.5-10.5); Carbon Dioxide 20 mmol/L (22-29); Chloride 106 mmol/L (98-107); Glucose 106 mg/dL (65-115); Osmolality Calculated 290 mOsm/kg (285-295); Potassium 3.7 mmol/L (3.5-5.1); Sodium 139 mmol/L (136-145)
[2021-05-22 06:15] LABS: Bacillus cereus group Not Detected (NOT DETECT); Bacillus subtillis group Not Detected (NOT DETECT); Corynebacterium Not Detected (NOT DETECT); Cutibacterium acnes (P.acnes) Not Detected (NOT DETECT); Enterococcus Not Detected (NOT DETECT); Enterococcus faecalis Not Detected (NOT DETECT); Enterococcus faecium Not Detected (NOT DETECT); Lactobacillus species Not Detected (NOT DETECT); Listeria Not Detected (NOT DETECT); Listeria monocytogenes Not Detected (NOT DETECT); Micrococcus Not Detected (NOT DETECT); Pan Candida Not Detected (NOT DETECT); Pan Gram-Negative Not Detected (NOT DETECT); Staphylococcus epidermidis Detected (NOT DETECT); Staphylococcus lugdunensis Not Detected (NOT DETECT); Staphylococcus species Detected (NOT DETECT); Streptococcus agalactiae Not Detected (NOT DETECT); Streptococcus anginosus group Not Detected (NOT DETECT); Streptococcus pneumoniae Not Detected (NOT DETECT); Streptococcus pyogenes Not Detected (NOT DETECT); Streptococcus species Not Detected (NOT DETECT); mecA Detected (NOT DETECT); mecC Not Detected (NOT DETECT)
[2021-05-22 06:24] LABS: Glucose Point of Care 97 mg/dL (70-110)
--- NOTE | 2021-05-22 06:33 | PC.NURSE ---
Insulin Drip Kept insulin gtt at 0.5 mls throughout shift per Dr. Reese verbal orders, accu checks performed hourly. Insulin gtt turned off at 0630, triglycerides below 500.
[2021-05-22 07:00] LABS: LDL Cholesterol Direct 72 mg/dL (0-100)
[2021-05-22] MEDS: sennosides-docusate Tablet 2 TAB PO (08:39)
[2021-05-22] MEDS: metoprolol tartrate 25 mg Tablet PO ×2 (08:39→21:47)
[2021-05-22] MEDS: fluconazole 100 mg Tablet 200 MG PO (08:39)
[2021-05-22] MEDS: atorvastatin 40 mg Tablet 80 MG PO (08:39)
[2021-05-22] MEDS: predniSONE 20 mg Tablet PO (08:39)
[2021-05-22] MEDS: fenofibrate 145 mg Tablet PO (08:40)
[2021-05-22] MEDS: apixaban 5 mg Tablet 2.5 MG PO ×2 (08:40→21:47)
[2021-05-22] MEDS: nystatin 100,000 unit/mL UDC 5 mL 100000 UNIT PO ×4 (08:40→21:48)
[2021-05-22] MEDS: epoetin alfa 1000 Unit/0.05 mL (ESRD) 6000 UNIT SUBCUT (08:57)
--- NOTE | 2021-05-22 09:58 | PM.PN ---
Subjective Subjective: Precious is doing well today and has no acute complaints. She had dialysis yesterday, it went well. Making a good amount of urine. Breathing comfortably with nasal cannula. Working with physical and Occupational Therapy. No uremic symptoms. No abdominal pain. No fevers or chills. Medications: Reviewed: Yes Medication Review Details: Abx history: Zosyn 04/20-04/24 then 05/11-05/13; vancomycin 04/20-? , 05/05-05/08; imipenem 04/25- 05/03 ; 05/05- 05/11; atypical coverage: none caspofungin 05/06- 05/11; Ambisome 300mg q24h (~5mg/kg) 05/11- 05/20 Vitals/I&O/Wt Last Vital Signs Temp 98.8 F 05/22/21 04:00 Pulse 129 H 05/22/21 09:00 Resp 37 H 05/22/21 09:00 BP 132/65 05/22/21 09:00 Pulse Ox 93 05/22/21 09:00 05/21/21 05/22/21 05/22/21 22:59 06:59 14:59 Intake Total 80.85 / 2099.60 1062 / 3161.60 Output Total 550 / 550 725 / 1275 Balance -469.15 / 1549.60 337 / 1886.60 Weight last 48 hrs Weight 63.531 kg Weight 65.119 kg Physical Exam Narrative: Constitutional: Extubated HEENT: Wet mucosa, no jvp, non icteric Lungs: Bilaterally scattered rales CVS: S1 S2, no murmurs Abdo: Soft, BS ok Ext 4: Minimal edema, peripheral perfusion with no cyanosis Neurological: Grossly non-focal Urinary Catheter Management: Carroll: Cath Placed During This Visit: yes, but has since been removed by the nurse Reason for Continuing Indwelling Catheter: Accurate Measurement of Urinary Output in Critically Ill Patients Urinary Catheter Date of Insertion: 05/11/21 Urinary Catheter Time of Insertion: 14:00 Date Urinary Catheter Removed: 04/28/21 Time Urinary Catheter Discontinued: 10:30 Data : 05/22/21 05:03 05/22/21 05:03 Micro: Microbiology 05/20/21 10:11 Blood Culture - Preliminary Blood Staphylococcus epidermidis 05/20/21 10:11 Blood Culture - Preliminary Blood NEGATIVE TO DATE A&P Assessment and plan (1) ATN (acute tubular necrosis): 1. Acute kidney injury Urine output now robust and creatinine coming down No indication for dialysis today, will monitor over the weekend, hopefully we are now seeing recovery Close monitoring for recovery Dose medication for GFR less than 15 on dialysis 2. Pancreatitis Secondary to hypertriglyceridemia, triglyceride levels now trending down, below 500 mgmt per medicine 3. Chemistry well balanced 4. ID On amphotericin for fungemia. - possible transfer to medical floor Thank you for consultation, it is a pleasure to follow these cases with you Exam and interview performed with aid of bedside RN using telemedicine Time spent 20 min inc > 50% of time in face to face counseling Pollo Seo MD [facility] [phone] Status: Acute Attestations Medical Necessity Statement*: eval for TONY Coding Level of Care Code Acute Oracle Application Consultant for g Fwd Diagnoses ATN (acute tubular necrosis) N17.0
--- NOTE | 2021-05-22 10:05 | PC.CHAP ---
Pastoral Care Encounter/Spiritual Assessment Type of Contact [] Declined powertrain design engineer visit [] Patient/Family/Request visit [] Outpatient visit [] Follow-up visit [] Physician referral [] Code/Alert [x] Routine visit [] Staff referral [] Actively dying [] Patient sleeping [x] Family support [] [] Out of room [] Palliative care [] [] Receiving care in room [] Pre-surgical visit [] Trauma [] Long length of stay [x] ICU visit [] Other: Relational/Emotional Strength [] Patient feels connected with others/family/visitors/staff [] Distress [] Loneliness/isolation [] Abandonment Spirituality of Patient [] Person of Emelina [] Attends Taoism of their Emelina [] Believes in Prayer [] Reads Bible or Quaker materials [] There are Spiritual issues to be addressed Analytical Research Program Manager Interventions [x] Prayer [x] Active listening [x] Non-anxious presence [x] Spiritual/emotional support [] Crisis/trauma care [] Spiritual counseling [] Bereavement support [] Provided bereavement packet [] Provided Bible/devotional materials [] Provided toy/stuffed animal, coloring book to patient or family member [] Provided Communion [] Anointing/[place] [] Salvation [x] Completed spiritual assessment [] Other: Impact on Illness or Injury [] Angry [] Fearful [] Anxious [] Often cries [] Exhaustion [] Unable to work [] Unable to attend yarsani [] Unable to walk/stand [] Unable to read [] Unable to drive [] Unable to eat/drink [] Unable to sleep [] Unable to be with family [] Patient intubated [] Other: Summary not a good day.. but it will get better... Time spent with patient 15 min
[2021-05-22 11:03] LABS: Glucose Point of Care 174 mg/dL (70-110)
[2021-05-22] MEDS: citalopram 20 mg Tablet 10 MG PO (11:19)
[2021-05-22 12:32] LABS: Lipase 8 U/L (13-60)
--- NOTE | 2021-05-22 13:48 | PC.SOCIAL ---
IMM Update pg 2 of IMM updated and reviewed w/ patients mom. Copy provided and copy in chart updated.
--- NOTE | 2021-05-22 14:24 | P.PN_ITS ---
Subjective Subjective: Patient overall continues to be in a stable status and tolerating hemodialysis via a left internal jugular vein tunneled dialysis catheter that was placed last Tuesday. And in the interim she is in the process to be transferred to the floor. Chest x-ray done at 1740 yesterday 1. Left PICC line seen with tip in place approaching the atrial caval junction. Additional left central venous catheter tip in the superior vena cava. 2. Patchy bilateral airspace infiltrates. Right femoral vein catheter was removed by me bedside and appropriate pressure was held ? Medications: Reviewed: Yes Vitals/I&O/Wt Last Vital Signs Temp 98.8 F 05/22/21 04:00 Pulse 117 H 05/22/21 11:30 Resp 26 H 05/22/21 13:12 BP 132/65 05/22/21 09:00 Pulse Ox 98 05/22/21 13:12 05/21/21 05/22/21 05/22/21 22:59 06:59 14:59 Intake Total 80.85 / 2099.60 1062 / 3161.60 961.25 / 961.25 Output Total 550 / 550 725 / 1275 Balance -469.15 / 1549.60 337 / 1886.60 961.25 / 961.25 Weight last 48 hrs Weight 140 lb 1 oz Weight 143 lb 9 oz Physical Exam Narrative: Patient is conscious alert oriented X3 No apparent distress BMI 28.3 Head and neck examination PERRLA no masses no cervical lymphadenopathy no jaundice Left upper chest tunneled hemodialysis catheter in place and a left arm PICC line in place. 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 [facility] nursing staff Carroll catheter in place Extremities no cyanosis no clubbing no edema Urinary Catheter Management: Carroll: Cath Placed During This Visit: yes, but has since been removed by the nurse Reason for Continuing Indwelling Catheter: Accurate Measurement of Urinary Output in Critically Ill Patients Urinary Catheter Date of Insertion: 05/11/21 Urinary Catheter Time of Insertion: 14:00 Date Urinary Catheter Removed: 04/28/21 Time Urinary Catheter Discontinued: 10:30 Data : 05/22/21 05:03 05/22/21 05:03 Micro: Microbiology 05/20/21 10:11 Blood Culture - Preliminary Blood Staphylococcus epidermidis 05/20/21 10:11 Blood Culture - Preliminary Blood NEGATIVE TO DATE A&P Assessment and plan (1) S/P dialysis catheter insertion: Continue dialysis per nephrology evaluation Optimize nutrition Please call for questions or concerns Assurance and education All questions have been answered and all concerns have been addressed to patient's satisfaction. Status: Acute Attestations Medical Necessity Statement*: Per admitting service Coding Level of Care Code Acute Medical Research Assistant for [facility] Fwd Diagnoses S/P dialysis catheter insertion Z95.828; Z99.2
[2021-05-22] MEDS: acetaminophen 325 mg Tablet 650 MG PO (14:52)
--- NOTE | 2021-05-22 15:18 | P.PN_ITS ---
Subjective Subjective: Patient was seen this morning, patient's family is at bedside, she is quite tearful, she wants to go home, nurses tell me that she has had a poor appetite, no nausea, no vomiting, no diarrhea, nursing staff have gone her up to the side of the bed, she denies any abdominal pain, normotensive overnight, afebrile, does have anxiety Vitals/I&O/Wt Last Vital Signs Temp 98.0 F 05/22/21 14:00 Pulse 124 H 05/22/21 14:30 Resp 37 H 05/22/21 14:30 BP 126/68 05/22/21 14:30 Pulse Ox 96 05/22/21 14:30 05/22/21 05/22/21 05/22/21 06:59 14:59 22:59 Intake Total 1062 / 3161.60 1321.25 / 1321.25 Output Total 725 / 1275 Balance 337 / 1886.60 1321.25 / 1321.25 Weight last 48 hrs Weight 63.531 kg Weight 65.119 kg Physical Exam Const: COMMON NORMALS: no acute distress and patient oriented x3 Resp: COMMON NORMALS: normal respiratory effort, No retractions, No use of accessory muscles and clear to auscultation bilaterally AUSCULTATION: clear to auscultation bilaterally GI: COMMON NORMALS: Normal to inspection, nondistended, normoactive bowel sounds present, Soft to palpation, non-tender and No hepatosplenomegaly present PALPATION: Yes Soft to palpation and Yes No hepatosplenomegaly present Extremity: COMMON NORMALS: no clubbing, cyanosis or edema, no calf tenderness and no pedal edema Neuro: COMMON NORMALS: patient oriented x3 Urinary Catheter Management: Wynn: Cath Placed During This Visit: yes, but has since been removed by the nurse Reason for Continuing Indwelling Catheter: Accurate Measurement of Urinary Output in Critically Ill Patients Urinary Catheter Date of Insertion: 05/11/21 Urinary Catheter Time of Insertion: 14:00 Date Urinary Catheter Removed: 04/28/21 Time Urinary Catheter Discontinued: 10:30 Data : 05/22/21 05:03 05/22/21 05:03 Micro: Microbiology 05/20/21 10:11 Blood Culture - Preliminary Blood Staphylococcus epidermidis 05/20/21 10:11 Blood Culture - Preliminary Blood NEGATIVE TO DATE A&P Assessment and plan (1) S/P dialysis catheter insertion: Status: Acute (2) Hypertriglyceridemia: Status: Acute (3) Trichosporonosis: Status: Acute (4) Coco parapsilosis infection: Status: Acute (5) Persistent fever: Status: Acute (6) B12 deficiency anemia: Status: Acute (7) Yeast detected: Status: Acute (8) Pulmonary embolism: Status: Acute (9) Acute respiratory distress syndrome (ARDS) due to 2019 novel coronavirus: Status: Acute (10) ATN (acute tubular necrosis): Status: Acute (11) COVID: Status: Acute (12) Hypovolemic shock: Status: Acute (13) Acute kidney injury: Status: Acute (14) Acute pancreatitis: Status: Acute Plan Patient was admitted on 04/19 for severe metabolic acidosis, hypertriglyceridemia induced pancreatitis, COVID-19 related ARDS First intubation?04/21?after an episode of vomiting while on BiPAP, developed aspiration pneumonia Right IJ dialysis catheter placed?04/20, extubated on?05/01 She did very well between?05/01 and 05/04, she was doing well on room air, wynn removed, antibiotic switched to Augmentin, started making urine, she was able to eat, bowel movements were regular no episodes of vomiting, fever susided Hypertriglyceridemia with pancreatitis improved with insulin gtt and avoiding propofol 05/05?she developed pulmonary edema again, she got worse overnight got transfer red to ICU and got intubated on?05/06?for worsening tachypnea 05/15 since her extubation she has been doing fine on 2.5 L oxym[place], bronchioloalveolar lavage positive for trichosporans ashaii Hypovolemic shock: Required minimal Levophed during dialysis.? Wean off Levophed Acute respiratory failure requiring intubation: Multifactorial.? Extubated on 05/14. Most likely secondary to COVID-19, pulmonary embolism along with possible aspiration pneumonia. Sputum culture from 05/06+ for trichosporon Bigelli.(Corrected by [facility] lab, nurse called me into update about the results it is andio henok) Shiley catheter tip growing fungus. So far sputum culture? form?04/29 positive for Coco parapalosis. Repeat MRSA swab results negative. Blood cultures from and negative in 5 days. Repeat blood cultures sent on .? Fungal culture sent to [facility].? Sensitivity for fungal culture sent out as well. Vancomycin DC'd on 05/10.?Zosyn stopped on 05/13. CT sinuses negative for invasive fungal sinusitis. 05/15 2.5 L cannula, afebrile, hemodynamically stable 05/20 Amphotericin B discontinued, started fluconazole 200 mg daily for next 4 weeks Persistent febrile episodes:?Fever curve improving. Patient does have potential sources of infection as stated above.? Also has pulmonary embolism.? Cannot rule out febrile illness secondary to inflammation or antibiotic fevers versus drug fever versus possibility of organizing pneumonia. Currently afebrile, ATN: Nephrology on board. Became hypotensive during dialysis today no plan for dialysis today and tomorrow closely monitor for resistant hypervolemia, good urine output, creatinine trending downwards Anemia: No active signs of bleeding.? Can be multifactorial. Reticulocyte, iron panel, folate levels appreciated.? Haptoglobin level good. Received 2 units of blood transfusion during hospitalization.? Hemoglobin 7.8. Found to be vitamin B12 deficient.? Continue with vitamin B12 1000 mcg IM daily for 3 days. Switch to p.o. 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 I unlikely to require any further dialysis, monitor blood pressures Attestations Medical Necessity Statement*: Patient requires hospitalization for hypoglycemia, hypotension, hyper triglyceridemia Coding Level of Care Code Acute Power Press Supervisor for [facility] Fwd Diagnoses S/P dialysis catheter insertion Z95.828; Z99.2 Hypertriglyceridemia E78.1 Trichosporonosis B36.2 Coco parapsilosis infection B37.9 Persistent fever R50.9 B12 deficiency anemia D51.9 Yeast detected B37.9 Pulmonary embolism I26.99 Acute respiratory distress syndrome (ARDS) due to 2019 novel coronavirus U07.1; J80 ATN (acute tubular necrosis) N17.0 COVID U07.1 Hypovolemic shock R57.1 Acute kidney injury N17.9 Acute pancreatitis K85.90
--- NOTE | 2021-05-22 16:17 | PC.NURSE ---
Report called to DALIA Zuluaga on [facility]. Patient transferred by bed to Room 254-2 accompanied by this nurse, Father, and mother. Patient A&Ox4 and denying pain at time of transfer. Margareth noted to be at bedside at time. of arrival to med surg floor.
[2021-05-22 16:48] LABS: Glucose Point of Care 212 mg/dL (70-110)
[2021-05-22] MEDS: dextrose 5%-sod chloride 0.45% 1,000 ML 50 ML IV (18:08)
[2021-05-22] MEDS: insulin lispro 100 unit/1 mL SUBCUT (18:09)
[2021-05-22] MEDS: CLONazepam 0.5 mg Tablet PO (21:49)
[2021-05-22 22:22] LABS: Glucose Point of Care 143 mg/dL (70-110)
[2021-05-23] VITALS (52 sets, daily range): BP systolic 132–154; BP diastolic 78–81; PULSE 99–128; RESP 0–47; TEMP 36.4–37.3; O2SAT 90–98
[2021-05-23] MEDS: ipratropium-albuterol 3 mL Neb INHALATION ×7 (00:25→23:31)
[2021-05-23] MEDS: CLONazepam 0.5 mg Tablet PO ×2 (02:58→13:20)
[2021-05-23 05:59] LABS: Basophils # 0.1 10^3/uL (0.0-0.1); Eosinophils # 0.2 10^3/uL (0.0-0.8); Eosinophils % 1.6 %; Hemoglobin 7.3 g/dL (11.5-15.3); Lymphocytes # 2.6 10^3/uL (0.8-4.8); Lymphocytes % 22.2 %; Mean Corpuscular HGB Conc 29.2 g/dL (30.0-36.0); Mean Corpuscular Hemoglobin 31.2 pg (28.0-34.0); Mean Corpuscular Volume 106.8 fl (81-99); Mean Platelet Volume 10.7 fL (7.4-10.4); Monocytes # 1.4 10^3/uL (0.2-0.9); Monocytes % 12.2 %; Neutrophils # 6.68 10^3/uL (1.8-7.7); Nucleated Red Blood Cells # 0.1 /100WBC; Nucleated Red Blood Cells % 0.4 %; Platelet Count 300 10^3/cmm (130-400); Red Blood Count 2.34 10^6/uL (4.1-5.3); Red Cell Distribution Width 20.6 % (12.1-15.1); White Blood Count 11.5 10^3/uL (4.0-10.0)
[2021-05-23 06:11] LABS: Procalcitonin 0.31 ng/mL (0-0.5)
[2021-05-23 06:13] LABS: Alanine Aminotransferase 11 U/L (0-33); Albumin Level 3.1 g/dL (3.5-5.2); Alkaline Phosphatase 227 IU/L (35-105); Aspartate Amino Transferase 26 U/L (0-32); Blood Urea Nitrogen 21 mg/dL (6-20); C Reactive Protein 5.6 mg/L (0.0-4.9); Calcium 8.8 mg/dL (8.5-10.5); Carbon Dioxide 21 mmol/L (22-29); Chloride 108 mmol/L (98-107); Creatinine Clr Calc Pharmacy 71.3914; Globulin 2.9 g/dL (1.3-4.6); Glomerular Filtration Rate 61.7 mL/min (90-130); Glucose 96 mg/dL (65-115); Magnesium 1.2 mg/dL (1.7-2.3); Osmolality Calculated 299 mOsm/kg (285-295); Phosphorus 3.1 mg/dL (2.5-4.5); Sodium 143 mmol/L (136-145); Total Bilirubin 0.6 mg/dL (0.15-1.2); Triglycerides 409 mg/dL (0-150)
[2021-05-23] MEDS: morphine 4 mg/mL SDV 1 mL 1 MG IVP ×2 (06:20→13:31)
[2021-05-23 06:27] LABS: Glucose Point of Care 84 mg/dL (70-110)
[2021-05-23 06:46] LABS: Anion Gap 17.3 (5-19); Potassium 3.3 mmol/L (3.5-5.1)
[2021-05-23 07:21] LABS: LDL Cholesterol Direct 73 mg/dL (0-100)
[2021-05-23] MEDS: sennosides-docusate Tablet 2 TAB PO (08:01)
[2021-05-23] MEDS: nystatin 100,000 unit/mL UDC 5 mL 100000 UNIT PO ×4 (08:01→20:47)
[2021-05-23] MEDS: fenofibrate 145 mg Tablet PO (08:01)
[2021-05-23] MEDS: predniSONE 20 mg Tablet PO (08:02)
[2021-05-23] MEDS: fluconazole 100 mg Tablet 200 MG PO (08:02)
[2021-05-23] MEDS: citalopram 20 mg Tablet 10 MG PO (08:02)
[2021-05-23] MEDS: gemfibrozil 600 mg Tablet PO ×2 (08:02→18:10)
[2021-05-23] MEDS: apixaban 5 mg Tablet 2.5 MG PO ×2 (08:02→20:47)
[2021-05-23] MEDS: multivitamin therapeutic Tablet 1 TAB PO (08:03)
[2021-05-23] MEDS: metoprolol tartrate 25 mg Tablet PO ×2 (08:03→20:47)
--- NOTE | 2021-05-23 09:04 | PM.PN ---
Subjective Subjective: Precious is doing well. No acute issues today. Breathing comfortably on room air. Hemodynamics and other vitals remained stable. No hypervolemic symptoms. No uremic symptoms. Sitting on the edge of the bed with therapists, yet to walk. Medications: Reviewed: Yes Medication Review Details: Abx history: Zosyn 04/20-04/24 then 05/11-05/13; vancomycin 04/20-? , 05/05-05/08; imipenem 04/25- 05/03 ; 05/05- 05/11; atypical coverage: none caspofungin 05/06- 05/11; Ambisome 300mg q24h (~5mg/kg) 05/11- 05/20 Vitals/I&O/Wt Last Vital Signs Temp 99.0 F 05/23/21 07:23 Pulse 124 H 05/23/21 08:01 Resp 21 H 05/23/21 07:50 BP 135/80 05/23/21 07:23 Pulse Ox 91 05/23/21 07:50 05/22/21 05/23/21 05/23/21 22:59 06:59 14:59 Intake Total 398.75 / 1720.00 240 / 1960.00 Output Total 1000 / 1000 Balance 398.75 / 1720.00 -760 / 960.00 Weight last 48 hrs Weight 59.874 kg Weight 63.531 kg Physical Exam Narrative: Constitutional: Extubated HEENT: Wet mucosa, no jvp, non icteric Lungs: Bilaterally scattered rales CVS: S1 S2, no murmurs Abdo: Soft, BS ok Ext 4: Minimal edema, peripheral perfusion with no cyanosis Neurological: Grossly non-focal Urinary Catheter Management: Carroll: Cath Placed During This Visit: yes, but has since been removed by the nurse Reason for Continuing Indwelling Catheter: Acute Urinary Retention or Obstruction Urinary Catheter Date of Insertion: 05/11/21 Urinary Catheter Time of Insertion: 14:00 Date Urinary Catheter Removed: 04/28/21 Time Urinary Catheter Discontinued: 10:30 Data : 05/23/21 04:40 05/23/21 04:40 Micro: Microbiology 05/20/21 10:11 Blood Culture - Preliminary Blood Staphylococcus epidermidis A&P Assessment and plan (1) ATN (acute tubular necrosis): 1. Acute kidney injury Urine output now robust and creatinine coming down It appears that we have seen recovery now. Will be okay to remove permacath on Tuesday if renal function remains stable. 2. Pancreatitis Secondary to hypertriglyceridemia, triglyceride levels now trending down, below 500 mgmt per medicine 3. Chemistry well balanced 4. Disposition She is very deconditioned from this critical illness, will need a lot of occupational and physical therapy, will likely need transfer to rehab after discharge. From my own perspective she will be able to be discharged once the permacath is removed. Thank you for consultation, it is a pleasure to follow these cases with you Exam and interview performed with aid of bedside RN using telemedicine Time spent 20 min inc > 50% of time in face to face counseling Pollo Seo MD [facility] Renal [facility] [phone] Status: Acute Attestations Medical Necessity Statement*: eval for renal failure Coding Level of Care Code Acute Consumer Relations Specialist for [facility] Fwd Diagnoses ATN (acute tubular necrosis) N17.0
[2021-05-23] MEDS: magnesium sulfate premix 4 GM/100 ML PREMIX IV (09:58)
[2021-05-23] MEDS: potassium chloride ER 20 mEq Tablet PO (09:58)
[2021-05-23] MEDS: lidocaine 1% 5 ML in potassium chloride premix 100 ML 25 ML IV (09:59)
[2021-05-23 11:29] LABS: Glucose Point of Care 130 mg/dL (70-110)
[2021-05-23] MEDS: dextrose 5%-sod chloride 0.45% 1,000 ML 50 ML IV (13:20)
[2021-05-23 16:51] LABS: Glucose Point of Care 176 mg/dL (70-110)
--- NOTE | 2021-05-23 17:15 | PC.NURSE ---
dr burt wishes to be consulted before administration of humalog for POC glucose results.
--- NOTE | 2021-05-23 17:16 | PC.NURSE ---
dinner blood sugar is 176, dr notified. Dr burt ordered this nurse to hold the 2 units of insulin that was due based on sliding scale.
[2021-05-23 20:39] LABS: Glucose Point of Care 152 mg/dL (70-110)
[2021-05-24] VITALS (63 sets, daily range): BP systolic 76–142; BP diastolic 49–83; PULSE 105–157; RESP 0–60; TEMP 36.1–38; O2SAT 78–100
[2021-05-24] MEDS: CLONazepam 0.5 mg Tablet PO (01:01)
[2021-05-24] MEDS: morphine 4 mg/mL SDV 1 mL 1 MG IVP ×2 (01:12→05:08)
[2021-05-24] MEDS: zolpidem 5 mg Tablet PO (03:22)
--- NOTE | 2021-05-24 03:25 | ECG_ITS ---
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 Measurements Intervals [place] Rate: 122 P: 51 MN: 152 QRS: 40 QRSD: 88 T: 28 QT: 286 QTc: 408 Interpretive Statements SINUS TACHYCARDIA ABNORMAL RHYTHM ECG Compared to ECG 04/26/2021 08:14:19 No significant changes Electronically Signed On 05-24-2021 12:03:42 RANGE FEEDER by Patricia Sam M.D. [id number]
--- NOTE | 2021-05-24 03:34 | XRR_ITS ---
PROCEDURE INFORMATION: Exam: XR Chest Exam date and time: 05/24/2021 3:34 AM Age: 40 years old Clinical indication: Dyspnea; Additional info: Short of breath TECHNIQUE: Imaging protocol: XR of the chest. Views: 1 view. COMPARISON: CR (CHEST, ) 05/21/2021 5:40 PM FINDINGS: Tubes, catheters and devices: The distal tip of the left arm PICC and the tunneled hemodialysis catheter are now both seen in the cephalad segment of the superior vena cava. There has been interval repositioning or exchange of the hemodialysis catheter. EKG monitoring leads overlie the thoracic wall. Lungs: There has been interval worsening of patchy areas of airspace disease throughout both lung dyer. Pleural spaces: No pleural effusion or pneumothorax. Heart/Mediastinum: Normal in size. Diaphragm: Asymmetric elevation of left hemidiaphragm, likely chronic. Bones/joints: No acute fracture is identified. XR/XR chest 1V [id number] IMPRESSION: Worsening patchy areas of airspace consolidation. Consider pulmonary edema, multilobar pneumonia and ARDS.
[2021-05-24 03:43] LABS: ABG PCO2 34.7 mmHg (35-45); ABG PH Result 7.42 (7.35-7.45); Alveolar-Arterial Oxygen Gradi 76.6 mmHg (5-10); Arterial Blood Gas Hematocrit 24.3 % (37-47); Base Excess ABG -1.8 mmol/L (-2.0-2.0); Blood Gas Allen Test Pos; Blood Gas Operator Identificat BISJE; Blood Gas Sample Site Brachial, right; Blood Gas Sample Type Arterial; Carboxyhemoglobin 1.9 %THgb (0.4-20.1); HCO3 ABG 22.4 mmol/L (22-26); HGB O2 Sat 93.6 % (95-100); Ionized Calcium Level - ABG 1.2 mmol/L (1.1-1.4); Methemoglobin 0.6 % (0.4-1.5); Oxygen Device NRB; Oxygen Saturation ABG 96.1; Potassium Level - ABG 3.9 mmol/L (3.5-5.0); Total Hemoglobin 7.9 g/dL (12-16)
[2021-05-24 03:43] LABS: Glucose Point of Care 101 mg/dL (70-110)
[2021-05-24 03:55] LABS: Basophils # 0.1 10^3/uL (0.0-0.1); Basophils % 0.6 %; Eosinophils # 0.2 10^3/uL (0.0-0.8); Eosinophils % 1.3 %; Hematocrit 26.6 % (37.0-47.0); Hemoglobin 7.7 g/dL (11.5-15.3); Lymphocytes # 2.7 10^3/uL (0.8-4.8); Lymphocytes % 16.7 %; Mean Corpuscular HGB Conc 28.9 g/dL (30.0-36.0); Mean Corpuscular Hemoglobin 31.4 pg (28.0-34.0); Mean Corpuscular Volume 108.6 fl (81-99); Mean Platelet Volume 10.1 fL (7.4-10.4); Monocytes # 1.8 10^3/uL (0.2-0.9); Monocytes % 11.2 %; Neutrophils # 10.72 10^3/uL (1.8-7.7); Neutrophils % 67.4 %; Nucleated Red Blood Cells # 0.1 /100WBC; Nucleated Red Blood Cells % 0.5 %; Platelet Count 376 10^3/cmm (130-400); Red Blood Count 2.45 10^6/uL (4.1-5.3); Red Cell Distribution Width 20.9 % (12.1-15.1); White Blood Count 15.9 10^3/uL (4.0-10.0)
--- NOTE | 2021-05-24 03:59 | PC.NURSE ---
0100 patient c/o anxiety, Klonopin given, patient verbalized pain to buttocks and requested morphine, morphine administered, @ 0310 patient c/o anxiety, patient has not slept the last 3 nights on this floor, hospitalist notified and ambiem ordered, nurse at bedside talking patient to relaxation, respiratory therapist entered room and 02 sat checked, patient 02 sat 54%, placed on non-rebreather mask and 02 increased by resp therapist, respiratory therapist ordered for rapid response. VS 97.0, 123, 25, 127/73, 97%
[2021-05-24] MEDS: LORazepam 2 mg/mL INJ 1 mL 1 MG IVP ×2 (04:15→04:38)
[2021-05-24 04:21] LABS: Alanine Aminotransferase 13 U/L (0-33); Albumin Level 3.1 g/dL (3.5-5.2); Alkaline Phosphatase 243 IU/L (35-105); Aspartate Amino Transferase 32 U/L (0-32); Blood Urea Nitrogen 20 mg/dL (6-20); C Reactive Protein 5.2 mg/L (0.0-4.9); Calcium 7.9 mg/dL (8.5-10.5); Carbon Dioxide 21 mmol/L (22-29); Chloride 108 mmol/L (98-107); Globulin 2.5 g/dL (1.3-4.6); Glomerular Filtration Rate 79.9 mL/min (90-130); Glucose 102 mg/dL (65-115); Magnesium 2.1 mg/dL (1.7-2.3); Osmolality Calculated 299 mOsm/kg (285-295); Phosphorus 4.6 mg/dL (2.5-4.5); Sodium 143 mmol/L (136-145); Total Bilirubin 0.6 mg/dL (0.15-1.2); Total Protein 5.6 g/dL (6.6-8.7); Triglycerides 314 mg/dL (0-150)
[2021-05-24 04:27] LABS: Procalcitonin 0.23 ng/mL (0-0.5)
[2021-05-24 04:41] LABS: Troponin T (5th) Once 164 ng/L (0-10)
--- NOTE | 2021-05-24 05:24 | PC.NURSE ---
0347 Pt received from med surg SOB labored breathing placed on bedside monitor Pale difficulty talking Family at bedside Dr. Romo notified transfer see orders
--- NOTE | 2021-05-24 05:36 | XRR_ITS ---
PROCEDURE INFORMATION: Exam: XR Chest Exam date and time: 05/24/2021 5:36 AM Age: 40 years old Clinical indication: Device placement; Other: Et and ng placement; Additional info: Shortness of breath TECHNIQUE: Imaging protocol: XR of the chest. Views: 1 view. COMPARISON: CR (CHEST, ) 05/24/2021 4:04 AM FINDINGS: Tubes, catheters and devices: The endotracheal tube tip is 2.5 cm above the tracey. A nasogastric tube is not identified in the visualized field. There is stable position of the PICC line and hemodialysis catheter, both in the proximal superior vena cava. EKG monitoring leads overlie the thoracic wall. Lungs: Diffuse patchy areas of airspace disease are redemonstrated, not significantly changed from comparison. Pleural spaces: No pleural effusion or pneumothorax. Heart/Mediastinum: Normal in size. Bones/joints: No acute fracture is identified. XR/XR chest 1V portable [id number] IMPRESSION: 1. Endotracheal tube 2.5 cm above the tracey. 2. PICC line and hemodialysis catheters remain in stable position in the superior vena cava. 3. No significant interval change in the diffuse patchy alveolar opacities.
[2021-05-24] MEDS: succinylcholine 20 mg/mL SDV 10mL 100 MG IVP (05:40)
--- NOTE | 2021-05-24 06:00 | ECG_ITS ---
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 Measurements Intervals [place] Rate: 129 P: 51 KS: 148 QRS: 34 QRSD: 84 T: 12 QT: 274 QTc: 401 Interpretive Statements SINUS TACHYCARDIA NONSPECIFIC T-WAVE ABNORMALITY ABNORMAL RHYTHM ECG Compared to ECG 04/26/2021 08:14:19 T-wave abnormality now present Electronically Signed On 05-24-2021 12:15:21 GARMENT TURNER by Patricia Sam M.D. [id number]
[2021-05-24] MEDS: propofol 1,000 MG/100 ML INJ 3.72 MG IV (06:06)
--- NOTE | 2021-05-24 06:15 | PC.NURSE ---
0547 Dr. Ornelas at bedside Pt ar then Asystole COde Ronaldo started CPR in progress. 0548 HR 164 pulse present. ETT 8.0 20 at lip.
[2021-05-24 06:41] LABS: Glucose Point of Care 122 mg/dL (70-110)
[2021-05-24] MEDS: FUROsemide 10 mg/mL SDV 4mL 40 MG IVP ×2 (07:15→10:00)
--- NOTE | 2021-05-24 07:18 | CTR_ITS ---
PROCEDURE INFORMATION: Exam: CTA Chest With Contrast Exam date and time: 05/24/2021 7:18 AM Age: 40 years old Clinical indication: Other: Acute hypoxic respiratory failure TECHNIQUE: Imaging protocol: Computed tomographic angiography of the chest with contrast. 3D rendering (Not supervised by radiologist): MIP reconstructed images were created by the technologist. Radiation optimization: All CT scans at this facility use at least one of these dose optimization techniques: automated exposure control; mA and/or kV adjustment per patient size (includes targeted exams where dose is matched to clinical indication); or iterative reconstruction. Contrast material: VISI 320; Contrast volume: 46 ml; Contrast route: INTRAVENOUS (IV); COMPARISON: CT angio chest w abd pel w con 04/22/2021 10:37 AM RADIATION DOSE METRICS: Total DLP (mGy-cm): 505.28 FINDINGS: Tubes, catheters and devices: The endotracheal tube tip is in the lower thoracic trachea. The feeding tube enters the stomach. A left internal jugular venous dual lumen catheter is present with the distal port tip in the upper SVC. Pulmonary arteries: No pulmonary artery embolism identified. Aorta: No aortic aneurysm. No aortic dissection. Lungs: Moderate pulmonary hypoexpansion. Interval increase in bilateral extensive bilateral pulmonary ground-glass opacities. Pleural spaces: Small left pleural effusion. No pneumothorax. Heart: Normal. Small pericardial effusion. Lymph nodes: No enlarged lymph nodes. Bones/joints: Unremarkable. No acute fracture. Soft tissues: Minimal anasarca. CT/CT angio chest PE protcl [id number] IMPRESSION: 1. No pulmonary artery embolism identified. 2. Moderate pulmonary hypoexpansion. 3. Interval increase in bilateral extensive bilateral pulmonary ground-glass opacities. Pneumonitis, including viral pneumonitis, versus atypical edema/ARDS. Clinical correlation is recommended. 4. Small left pleural effusion, slightly increased. 5. Small pericardial effusion, slightly increased. 6. Please see the abdomen/pelvis CT report of the same date for additional findings.
--- NOTE | 2021-05-24 07:18 | USCV_ITS ---
Precious Mckeon Age: 40 Gender: F : 1980 Exam Date: 05/24/2021 08:28 Ordering Phys: Vinod Ireland MD Technologist: [place] Exam Location: [facility] [place] Indication: Post Code and now on vent BP: 102 / 61 HR: 121 Rhythm: Sinus Technical Quality: Adequate MEASUREMENTS (Male / Female) Normal Values 2D ECHO LV Diastolic Diameter PLAX 3.0 cm 4.2 - 5.9 / 3.9 - 5.3 cm LV Systolic Diameter PLAX 2.4 cm LV Chamber Size 3.2 cm IVS Diastolic Thickness 0.6 cm 0.6 - 1.0 / 0.6 - 0.9 cm IVS Systolic Thickness 1.0 cm LVPW Diastolic Thickness 0.8 cm 0.6 - 1.0 / 0.6 - 0.9 cm LVPW Systolic Thickness 1.1 cm RV Chamber Size 2.5 cm LVOT Diameter 2.0 cm LV Ejection Fraction 2D Teich 41.5 % LV Ejection Fraction MOD 2C 59.4 % LV Ejection Fraction 2C AL 63.2 % LA Diameter 2.2 cm LA Width 2.1 cm LA Height 2.1 cm RA Width 2.3 cm RA Height 2.3 cm Aorta at Sinotubular Diameter 2.7 cm M-MODE Aortic Annulus Diameter 2.9 cm LA Ao Ratio MM 0.8 MV E Point Septal Separation 0.2 cm DOPPLER AV Peak Velocity 116.0 cm/s LVOT Peak Velocity 90.0 cm/s AV Area Cont Eq vti 2.8 cm squared AV Area Cont Eq pk 2.5 cm squared MV Area PHT 3.1 cm squared Mitral E to A Ratio 4.0 MV E' Velocity 61.0 cm/s Mitral E to MV E' Ratio 8.2 Mitral E to LV E' Lateral Ratio 7.8 Mitral E to LV E' Septal Ratio 8.6 TR Peak Velocity 135.5 cm/s TR Peak Gradient 7.3 mmHg TR Mean Velocity 88.2 cm/s TR Mean Gradient 3.5 mmHg TR Velocity Time Integral 25.4 cm TV Peak E Velocity 116.0 cm/s Right Atrial Pressure 15.0 mmHg Pulmonary Artery Systolic Pressu 22.3 mmHg PV Peak Velocity 87.0 cm/s RV Acceleration Time 0.1 s RV Ejection Time 0.4 s RV AcT/ET 0.3 FINDINGS Left Ventricle Normal left ventricular size, systolic function and wall thickness, with no regional wall motion abnormalities. Left ventricular ejection fraction is estimated at 55-60 %. Normal diastolic function. Right Ventricle Normal right ventricular size and systolic function. RVSP could not be calculated due to incomplete tricuspid regurgitation velocity profile. Right Atrium Normal right atrial size. Left Atrium Normal left atrial size. Mitral Valve Mildly thickened mitral valve. No mitral valve stenosis. No mitral valve regurgitation. Aortic Valve Aortic valve not well visualized. No aortic valve stenosis. No aortic valve regurgitation. Tricuspid Valve Structurally normal tricuspid valve. Trace tricuspid valve regurgitation. Pulmonic Valve Structurally normal pulmonic valve. No pulmonary valve stenosis. Pericardium Trivial pericardial effusion. No evidence of hemodynamic compromise. Aorta Normal-sized aortic root. CONCLUSIONS 1. Normal left ventricular size, systolic function and wall thickness, with no regional wall motion abnormalities. Left ventricular ejection fraction is estimated at 55-60 %. Normal diastolic function. 2. Normal right ventricular size and systolic function. 3. Trivial pericardial effusion. 4. Direct comparison to previous study is not possible due to technical differences in study. Patricia Sam MD (Electronically Signed) Final Date: 24 May 2021 11:36 S
--- NOTE | 2021-05-24 07:22 | USR_ITS ---
PROCEDURE INFORMATION: Exam: US Duplex Lower Extremity Veins, Bilateral Exam date and time: 05/24/2021 7:22 AM Age: 40 years old Clinical indication: Other: Sudden on SOB then code and intubation; Patient HX: PT on vent. ; Additional info: Dvt TECHNIQUE: Imaging protocol: Real-time Duplex ultrasound of the bilateral extremities with 2-D mari scale, color Doppler flow and spectral waveform analysis with image documentation. Complete exam focused on the bilateral lower extremity veins. COMPARISON: US CV venous duplex [facility] [id number] 05/10/2021 11:32 AM FINDINGS: Right deep veins: Unremarkable. The common femoral, femoral, proximal profunda femoral and popliteal veins are patent without thrombus. Normal Doppler waveforms. Normal compressibility and augmentation response. Right superficial veins: Saphenofemoral junction is patent without thrombus. Left deep veins: Unremarkable. The common femoral, femoral, proximal profunda femoral and popliteal veins are patent without thrombus. Normal Doppler waveforms. Normal compressibility and augmentation response. Left superficial veins: Saphenofemoral junction is patent without thrombus. Soft tissues: Fatty replaced benign lymph nodes left inguinal region. US/[place] [id number] IMPRESSION: No evidence of deep vein thrombosis.
--- NOTE | 2021-05-24 07:24 | PM.PN ---
Subjective Subjective: This is a progress note from 05/23/2021 Patient was seen in the morning, mother at bedside, mom tells me that she continues to have a poor appetite, she is drinking her nephro drinks twice a day at times, she does still her mom that she has belly pain when she eats, she has had a bowel movement, she is very anxious her mom tells me, she is very anxious about being here in the hospital, and since she is moved up from ICU and the change in environment, she is having trouble adjusting, currently on 1 L, denying any shortness of breath, she follows commands, but becomes very anxious during questioning and looks at her mom for answers to my questions Vitals/I&O/Wt Last Vital Signs Temp 100.4 F H 05/24/21 07:24 Pulse 134 H 05/24/21 06:30 Resp 23 H 05/24/21 06:10 BP 92/56 05/24/21 06:30 Pulse Ox 97 05/24/21 06:30 05/23/21 05/24/21 05/24/21 22:59 06:59 14:59 Intake Total 120 / 1645 837.5 / 2482.5 Output Total 300 / 1500 1100 / 2600 Balance -180 / 145 -262.5 / -117.5 Weight last 48 hrs Weight 56.155 kg Weight 61.915 kg Weight 59.874 kg Physical Exam Const: COMMON NORMALS: no acute distress and patient oriented x3 Resp: COMMON NORMALS: normal respiratory effort, No retractions, No use of accessory muscles and clear to auscultation bilaterally AUSCULTATION: clear to auscultation bilaterally Cardio: COMMON NORMALS: regular rate, regular rhythm, S1 normal heart sound present and S2 normal heart sound present RATE: regular rate RHYTHM: regular rhythm HEART SOUNDS: S1 normal heart sound present and S2 normal heart sound present GI: COMMON NORMALS: Normal to inspection, nondistended, normoactive bowel sounds present, Soft to palpation, non-tender and No hepatosplenomegaly present PALPATION: Yes Soft to palpation and Yes No hepatosplenomegaly present Extremity: COMMON NORMALS: no pedal edema Neuro: COMMON NORMALS: patient oriented x3 Urinary Catheter Management: Wynn: Cath Placed During This Visit: yes, but has since been removed by the nurse Reason for Continuing Indwelling Catheter: Other Urinary Catheter Date of Insertion: 05/11/21 Urinary Catheter Time of Insertion: 14:00 Date Urinary Catheter Removed: 04/28/21 Time Urinary Catheter Discontinued: 10:30 Data : 05/24/21 03:39 05/24/21 03:39 Micro: Microbiology 05/20/21 10:11 Blood Culture - Preliminary Blood Staphylococcus epidermidis A&P Assessment and plan (1) S/P dialysis catheter insertion: Status: Acute (2) Hypertriglyceridemia: Status: Acute (3) Trichosporonosis: Status: Acute (4) Coco parapsilosis infection: Status: Acute (5) Persistent fever: Status: Acute (6) B12 deficiency anemia: Status: Acute (7) Yeast detected: Status: Acute (8) Pulmonary embolism: Status: Acute (9) Acute respiratory distress syndrome (ARDS) due to 2019 novel coronavirus: Status: Acute (10) ATN (acute tubular necrosis): Status: Acute (11) COVID: Status: Acute (12) Hypovolemic shock: Status: Acute (13) Acute kidney injury: Status: Acute (14) Acute pancreatitis: Status: Acute Plan Patient was admitted on 04/19 for severe metabolic acidosis, hypertriglyceridemia induced pancreatitis, COVID-19 related ARDS First intubation?04/21?after an episode of vomiting while on BiPAP, developed aspiration pneumonia Right IJ dialysis catheter placed?04/20, extubated on?05/01 She did very well between?05/01 and 05/04, she was doing well on room air, wynn removed, antibiotic switched to Augmentin, started making urine, she was able to eat, bowel movements were regular no episodes of vomiting, fever susided Hypertriglyceridemia with pancreatitis improved with insulin gtt and avoiding propofol 05/05?she developed pulmonary edema again, she got worse overnight got transferred to ICU and got intubated on?05/06?for worsening tachypnea 05/15 since her extubation she has been doing fine on 2.5 L ox[place], bronchioloalveolar lavage positive for trichosporans williami Hypovolemic shock: Required minimal Levophed during dialysis.? Wean off Levophed Acute respiratory failure requiring intubation: Multifactorial.? Extubated on 05/14. Most likely secondary to COVID-19, pulmonary embolism along with possible aspiration pneumonia. Sputum culture from 05/06+ for trichosporon Bigelli.(Corrected by [facility], nurse called me into update about the results it is jeanie Prestonmahogany catheter tip growing fungus. So far sputum culture? form?04/29 positive for Coco parapalosis. Repeat MRSA swab results negative. Blood cultures from and negative in 5 days. Repeat blood cultures sent on .? Fungal culture sent to [facility].? Sensitivity for fungal culture sent out as well. Vancomycin DC'd on 05/10.?Zosyn stopped on 05/13. CT sinuses negative for invasive fungal sinusitis. 05/15 2.5 L cannula, afebrile, hemodynamically stable 05/20 Amphotericin B discontinued, started fluconazole 200 mg daily for next 4 weeks Persistent febrile episodes:?Fever curve improving. Patient does have potential sources of infection as stated above.? Also has pulmonary embolism.? Cannot rule out febrile illness secondary to inflammation or antibiotic fevers versus drug fever versus possibility of organizing pneumonia. Currently afebrile, ATN: Nephrology on board. Became hypotensive during dialysis today no plan for dialysis today and tomorrow closely monitor for resistant hypervolemia, good urine output, creatinine trending downwards, continue to monitor kidney function, likely will not require further dialysis Anemia: No active signs of bleeding.? Can be multifactorial. Reticulocyte, iron panel, folate levels appreciated.? Haptoglobin level good. Received 2 units of blood transfusion during hospitalization.? Hemoglobin 7.8. Found to be vitamin B12 deficient.? Continue with vitamin B12 1000 mcg IM daily for 3 days. Switch to p.o. 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 I unlikely to require any further dialysis, monitor blood pressures, monitor respiratory status Attestations Medical Necessity Statement*: Patient requires hospitalization for respiratory failure with Coding Level of Care Code Acute Hplc Chemist for g Fwd Diagnoses S/P dialysis catheter insertion Z95.828; Z99.2 Hypertriglyceridemia E78.1 Trichosporonosis B36.2 Coco parapsilosis infection B37.9 Persistent fever R50.9 B12 deficiency anemia D51.9 Yeast detected B37.9 Pulmonary embolism I26.99 Acute respiratory distress syndrome (ARDS) due to 2019 novel coronavirus U07.1; J80 ATN (acute tubular necrosis) N17.0 COVID U07.1 Hypovolemic shock R57.1 Acute kidney injury N17.9 Acute pancreatitis K85.90
[2021-05-24 07:26] LABS: Troponin T (5th) Once 172 ng/L (0-10)
--- NOTE | 2021-05-24 07:31 | PC.NURSE ---
Dr. Ireland came to bedside, notified of Critical troponin and ax temp 100.4
--- NOTE | 2021-05-24 07:32 | PM.PN ---
Subjective Subjective: Events of the last 24 hours noted. Unfortunately Precious is reintubated after becoming tachypneic and exhausted yesterday. Now transferred back to the ICU. On stable vent settings, hemodynamically stable. Good urine output. Chest x-ray reviewed, bilateral diffuse infiltrates more consistent with ARDS. Minimal extremity edema. Medications: Reviewed: Yes Medication Review Details: Abx history: Zosyn 04/20-04/24 then 05/11-05/13; vancomycin 04/20-? , 05/05-05/08; imipenem 04/25- 05/03 ; 05/05- 05/11; atypical coverage: none caspofungin 05/06- 05/11; Ambisome 300mg q24h (~5mg/kg) 05/11- 05/20 Vitals/I&O/Wt Last Vital Signs Temp 100.4 F H 05/24/21 07:24 Pulse 134 H 05/24/21 06:30 Resp 23 H 05/24/21 06:10 BP 92/56 05/24/21 06:30 Pulse Ox 97 05/24/21 06:30 05/23/21 05/24/21 05/24/21 22:59 06:59 14:59 Intake Total 120 / 1645 837.5 / 2482.5 Output Total 300 / 1500 1100 / 2600 Balance -180 / 145 -262.5 / -117.5 Weight last 48 hrs Weight 56.155 kg Weight 61.915 kg Weight 59.874 kg Physical Exam Narrative: Constitutional: Extubated HEENT: Wet mucosa, no jvp, non icteric Lungs: Bilaterally scattered rales CVS: S1 S2, no murmurs Abdo: Soft, BS ok Ext 4: Minimal edema, peripheral perfusion with no cyanosis Neurological: Grossly non-focal Urinary Catheter Management: Carroll: Cath Placed During This Visit: yes, but has since been removed by the nurse Reason for Continuing Indwelling Catheter: Other Urinary Catheter Date of Insertion: 05/11/21 Urinary Catheter Time of Insertion: 14:00 Date Urinary Catheter Removed: 04/28/21 Time Urinary Catheter Discontinued: 10:30 Data : 05/24/21 03:39 05/24/21 03:39 Micro: Microbiology 05/20/21 10:11 Blood Culture - Preliminary Blood Staphylococcus epidermidis A&P Assessment and plan (1) ATN (acute tubular necrosis): 1. Acute kidney injury The kidney is in obvious recovery now. Unlikely to need dialysis. Given fragile clinical situation i.e. she is just reintubated, I will leave the permacath in for the time being. If she displays symptoms of sepsis I will consider its removal more expeditiously. 2. Pancreatitis Secondary to hypertriglyceridemia, triglyceride levels now trending down, below 500 mgmt per medicine 3. Chemistry well balanced 4. VDRF It is disappointing that she is now reintubated as she was making progress of recovery on the medical floor. If this becomes protracted she will probably require tracheostomy. We will give Lasix x1 today to see if we can help improve the pulmonary infiltrates although I am suspicious this is more consistent with ARDS. Otherwise management per ICU team. 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
[2021-05-24] MEDS: ipratropium-albuterol 3 mL Neb INHALATION ×2 (07:33→11:25)
[2021-05-24 07:46] LABS: Glucose Point of Care 107 mg/dL (70-110)
--- NOTE | 2021-05-24 07:49 | CTR_ITS ---
PROCEDURE INFORMATION: Exam: CT Abdomen And Pelvis Without Contrast Exam date and time: 05/24/2021 7:49 AM Age: 40 years old Clinical indication: Other: Abdominal distention TECHNIQUE: Imaging protocol: Computed tomography of the abdomen and pelvis without contrast. Radiation optimization: All CT scans at this facility use at least one of these dose optimization techniques: automated exposure control; mA and/or kV adjustment per patient size (includes targeted exams where dose is matched to clinical indication); or iterative reconstruction. COMPARISON: CT chest abd pel wo con 05/07/2021 5:51 PM RADIATION DOSE METRICS: Total DLP (mGy-cm): 1870.83 FINDINGS: Tubes, catheters and devices: The feeding tube enters the stomach with the tip in the lower gastric body. Liver: Normal. No mass. Gallbladder and bile ducts: Distended gallbladder. No gallbladder wall thickening or pericholecystic fluid. Pancreas: Severe pancreatic atrophy. Spleen: A small inferior splenule is present. Adrenal glands: Normal. No mass. Kidneys and ureters: Normal. No hydronephrosis. Stomach and bowel: Unremarkable. No obstruction. No mucosal thickening. Appendix: The vermiform appendix is normal. Intraperitoneal space: No free air. No significant fluid collection. Vasculature: Unremarkable. No abdominal aortic aneurysm. Lymph nodes: No enlarged lymph nodes. Urinary bladder: The urinary bladder is drained by a Carroll catheter. The urinary bladder is decompressed and difficult to assess. Reproductive: Left ovarian 26 mm physiologic follicle. Bones/joints: Right central L5-S1 spondylosis with moderate right neural foraminal stenosis. Soft tissues: Moderate anasarca. CT/CT abdomen pelvis wo con [id number] IMPRESSION: 1. Distended gallbladder. 2. Severe pancreatic atrophy. 3. Please see the CTA chest report of the same date for additional findings.
--- NOTE | 2021-05-24 08:03 | CTR_ITS ---
PROCEDURE INFORMATION: Exam: CT Head Without Contrast Exam date and time: 05/24/2021 8:03 AM Age: 40 years old Clinical indication: Other: S/P cardiac arrest TECHNIQUE: Imaging protocol: Computed tomography of the head without contrast. Radiation optimization: All CT scans at this facility use at least one of these dose optimization techniques: automated exposure control; mA and/or kV adjustment per patient size (includes targeted exams where dose is matched to clinical indication); or iterative reconstruction. COMPARISON: CT head wo con* [id number] 05/10/2021 4:30 PM RADIATION DOSE METRICS: Total DLP (mGy-cm): 531.6 FINDINGS: Brain: There is volume loss, advanced for age. No infarct. No hemorrhage or extra-axial collection. No subarachnoid hemorrhage. No cerebral edema. Cerebral ventricles: No ventriculomegaly. Paranasal sinuses: Visualized sinuses are unremarkable. No fluid levels. Mastoid air cells: Visualized mastoid air cells are well aerated. Bones/joints: Unremarkable. No acute fracture. Soft tissues: Unremarkable. CT/CT head wo con* [id number] IMPRESSION: No acute intracranial lesion or injury and no change from prior scan.
[2021-05-24] MEDS: iodixanol 320 mg/mL 100mL Btl IV (08:24)
--- NOTE | 2021-05-24 09:01 | ECG_ITS ---
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 Measurements Intervals [place] Rate: 120 P: 32 MO: 112 QRS: 39 QRSD: 72 T: 88 QT: 292 QTc: 413 Interpretive Statements SINUS TACHYCARDIA WITH SHORT MO INTERVAL NONSPECIFIC T-WAVE ABNORMALITY ABNORMAL RHYTHM ECG Compared to ECG 05/24/2021 05:22:49 Short MO interval now present T-wave abnormality still present Electronically Signed On 05-24-2021 12:01:46 OFFSET PLATEMAKER by Patricia Sam M.D. [id number]
[2021-05-24] MEDS: vancomycin 1,500 MG/300 ML PIGGYBACK 200 MG IV (09:03)
[2021-05-24] MEDS: gemfibrozil 600 mg Tablet PO (09:07)
[2021-05-24] MEDS: citalopram 20 mg Tablet 10 MG PO (09:07)
[2021-05-24] MEDS: fenofibrate 145 mg Tablet PO (09:08)
[2021-05-24] MEDS: nystatin 100,000 unit/mL UDC 5 mL 100000 UNIT PO ×3 (09:08→16:15)
[2021-05-24] MEDS: fluconazole 100 mg Tablet 200 MG PO (09:08)
[2021-05-24] MEDS: multivitamin therapeutic Tablet 1 TAB PO (09:08)
[2021-05-24] MEDS: predniSONE 20 mg Tablet PO (09:09)
[2021-05-24] MEDS: sennosides-docusate Tablet 2 TAB PO (09:09)
[2021-05-24] MEDS: piperacillin-tazobactam 3.375 GM in sodium chloride 0.9% (plus) 50 ML IV (09:09)
[2021-05-24] MEDS: metoprolol tartrate 25 mg Tablet PO (09:10)
[2021-05-24 09:48] LABS: ABG PCO2 41.6 mmHg (35-45); ABG PH Result 7.35 (7.35-7.45); Alveolar-Arterial Oxygen Gradi 52.7 mmHg (5-10); Arterial Blood Gas Hematocrit 23.2 % (37-47); Base Excess ABG -2.5 mmol/L (-2.0-2.0); Blood Gas Allen Test Pos; Blood Gas Operator Identificat BD; Blood Gas Sample Site Brachial, right; Blood Gas Sample Type Arterial; Blood Gas Tidal Volume 0.32; Carboxyhemoglobin 1.7 %THgb (0.4-20.1); HCO3 ABG 22.9 mmol/L (22-26); Ionized Calcium Level - ABG 1.2 mmol/L (1.1-1.4); Methemoglobin 0.6 % (0.4-1.5); Oxygen Device VENT; Oxygen Saturation ABG 99.2; Potassium Level - ABG 4.1 mmol/L (3.5-5.0); Total Hemoglobin 7.6 g/dL (12-16)
[2021-05-24 09:54] LABS: Platelet Count 329 10^3/cmm (130-400); Reticulocyte % 7.7 % (0.5-2.0)
[2021-05-24 09:58] LABS: LAB Peripheral Smear Sent for Review
[2021-05-24 10:52] LABS: Troponin(5th) Baseline 214 ng/L (0-10)
[2021-05-24 11:42] LABS: Ferritin 1456 ng/mL (15-150); Vitamin B12 836 pg/mL (232-1245)
[2021-05-24 11:43] LABS: Folate Level 6.7 ng/mL (4.8-37.3)
[2021-05-24 12:02] LABS: Glucose Point of Care 84 mg/dL (70-110)
--- NOTE | 2021-05-24 12:02 | PC.NURSE ---
condition update Dr. Ireland reviewed CT, spoke with [facility] who accepted patient, transfer center notified this nurse patient is on a bed waiting list, family updated. Dr. Ireland gave v.o. for 1x 40 mEq Lasix IVP
[2021-05-24] MEDS: dextrose 5%-sod chloride 0.9% 1,000 ML 50 ML IV (12:53)
--- NOTE | 2021-05-24 14:08 | PC.NURSE ---
Report called to Ailin GÓMEZ at [facility]
--- NOTE | 2021-05-24 14:39 | PM.PN ---
Subjective Subjective: Patient was seen multiple times throughout the day -At roughly 345 AM last night, patient developed episodes of hyper respiration, respiratory 30s to 50s, was anxious, requiring nonrebreather, was moved to the ICU -In the ICU, continue to have tachypnea, becoming less responsive -Decision was made to intubate patient to protect airway, -Rapid sequence intubation was initiated, as soon as patient received etomidate, she bradycardia down, received atropine, however went into asystole, CODE BLUE started, CPR started -She was intubated -Lost pulse for roughly a minute, return of spontaneous regulation about a minute, heart rate 164, was placed on pressors, intubation, mechanical ventilation -During my examination early in the morning, she was on 1 of Levophed, febrile, on 50% FiO2 sats in the high 90s, normotensive, does withdraw from pain, does have pupillary reflex, does have a cough reflex, does have a gag reflex -She was given 40 of Lasix, chest x-ray does show evidence of fluid overload -CT angiogram performed showed diffuse COVID-19 related changes, evidence of pulmonary fibrosis, no pulmonary emboli, bedside echocardiogram does not show any significant evidence of pericardial effusion, no evidence of pneumothorax, no significant electrolyte abnormalities, does have elevated troponins, likely status post cardiac arrest -Reexamined, was placed on 80% FiO2 now which has been slowly been weaned down to 60% FiO2 sats in the high 90s, on 1 of Levophed, good blood pressures, withdrawing from pain, waking up, opening her eyes -Continues to have sinus tachycardia, urine output 1999 -I had extensive discussion with patient's family at bedside -I advised patient's family that this is patient's third reintubation, secondary to acute respiratory failure, etiology in my opinion likely from pulmonary fibrosis secondary to COVID-19, acute respiratory distress, however I think that patient is anxiety is playing a significant role to her hyper respiration, there is also the possibility of fluid overload with aspiration -However I was clear with patient's family that its concerning to me that she went from doing well yesterday getting up to the side of bed with physical therapy talking with me, lungs sound clear, no's evidence of fluid overload, on room air sudden nonrebreather to intubation -Usually people with pulmonary fibrosis secondary to COVID-19, it is more of a gradual process and seems like she is suddenly worsening without a clear etiology -Certainly aspiration and pulmonary edema could be playing a role and have played a role in the past but she has had appropriate evaluations, she is not significantly fluid overload and there is no significant evidence of fluid overload currently -I am wondering if we are missing something -I have done extensive evaluation already including CT angiogram and cardiac echocardiogram -But she has had a bronchoscopy, she has had a transesophageal echocardiogram which she has had multiple pulmonary evaluations, infectious disease evaluations has had dialysis, has had a prolonged hospitalization for over 35 days -In her reintubations's situation sound very similar she is on room air, then she suddenly becomes more short of breath without a clear etiology requiring reintubation -Given her young age of 40, she is a candidate for possible ECMO or even lung transplant if severe COVID-19 arteries and pulmonary fibrosis is indeed the etiology behind her worsening respiratory status -However I do was not diagnosed on that she deserves higher level evaluation such as [facility] to see if we are missing anything, or if there any additional evaluations that could be undergone -I personally and we have personally exhausted all our efforts here -I have also considered the possibility of ECMO as a bridge to lung transplant again indeed if COVID-19 and pulmonary fibrosis is a etiology behind her reintubation however this is 18 days of intubation total, she has been here 35 days she does have type 2 diabetes, does hyper have hypertriglyceridemia which was newly found on admission, BMI is 25 -She is fairly functional at baseline, she is alert awake oriented can walk on her own can feed herself is a fairly functional individual -I spoke to ECMO team at [facility], currently based on her vent settings, her days of intubation they do not feel that currently she is a candidate for ECMO -I spoke to lung transplant team, currently based upon her clinical status and her vent settings they do not believe that currently she is a candidate for lung transplant -I was clear with patient's family father and mother at bedside that this is what Sarahi had told me that currently she is not a candidate for ECMO, she is not a candidate for lung transplant -However transferring up to [facility] is reasonable for further evaluation, further work-up as this is her third reintubation -And in the future she might be a candidate for ECMO she might be a candidate for a lung transplant there is no guarantee but she is in the right place for this to happen -All the family voiced understanding, all questions answered -Patient next of kin is patient's father, and patient's mother were present during my discussions -After discussing the risks and benefits of transfer, they voiced understanding, all questions answered agreed to be transferred to [facility] -Again multiple times I was clear with family that transfer up to [place] does not guarantee ECMO, does not guarantee lung transplant, and there is no promise of one, but given her young age, her multiple reintubations, her complicated history, her complicated admission she will have all the chances that she deserves for further evaluation, for the best optimal outcome, this would be in my opinion the best thing for her should she could have further evaluation at physicians at a tertiary level center, to ensure that there is nothing being missed, to try to optimize her medical care, hopefully extubate her or provide a reason for her reintubations and solutions to that. Or in fact she might qualify for ECMO and lung transplant in the near future. Vitals/I&O/Wt Last Vital Signs Temp 100.4 F H 05/24/21 07:24 Pulse 116 H 05/24/21 13:00 Resp 27 H 05/24/21 14:35 BP 101/60 05/24/21 13:00 Pulse Ox 98 05/24/21 14:35 05/23/21 05/24/21 05/24/21 22:59 06:59 14:59 Intake Total 120 / 1645 837.5 / 2482.5 Output Total 300 / 1500 1100 / 2600 600 / 600 Balance -180 / 145 -262.5 / -117.5 -600 / -600 Weight last 48 hrs Weight 56.155 kg Weight 61.915 kg Weight 59.874 kg Physical Exam Const: COMMON NORMALS: no acute distress OTHER: Intubated, sedated HENMT: COMMON NORMALS: normocephalic HEAD & SCALP: normocephalic Eye: OTHER: Pupils equal round reactive to light, does withdraw from pain, does open her eyes, cough reflex present, gag reflex present Resp: COMMON NORMALS: normal respiratory effort, No retractions, No use of accessory muscles and clear to auscultation bilaterally AUSCULTATION: clear to auscultation bilaterally Cardio: COMMON NORMALS: regular rate, regular rhythm, S1 normal heart sound present and S2 normal heart sound present RATE: regular rate RHYTHM: regular rhythm HEART SOUNDS: S1 normal heart sound present and S2 normal heart sound present GI: COMMON NORMALS: Normal to inspection, nondistended, normoactive bowel sounds present, Soft to palpation, non-tender and No hepatosplenomegaly present PALPATION: Yes Soft to palpation and Yes No hepatosplenomegaly present Extremity: COMMON NORMALS: no pedal edema Urinary Catheter Management: Wynn: Cath Placed During This Visit: yes, but has since been removed by the nurse Reason for Continuing Indwelling Catheter: Other Urinary Catheter Date of Insertion: 05/11/21 Urinary Catheter Time of Insertion: 14:00 Date Urinary Catheter Removed: 04/28/21 Time Urinary Catheter Discontinued: 10:30 Data : 05/24/21 09:22 05/24/21 03:39 Micro: Microbiology 05/20/21 10:11 Blood Culture - Final Blood Staphylococcus hominis 05/24/21 09:26 Blood Culture - Preliminary Blood SPECIMEN COLLECTED 05/24/21 09:22 Blood Culture - Preliminary Blood SPECIMEN COLLECTED A&P Assessment and plan (1) S/P dialysis catheter insertion: Status: Acute (2) Hypertriglyceridemia: Status: Acute (3) Trichosporonosis: Status: Acute (4) Coco parapsilosis infection: Status: Acute (5) Persistent fever: Status: Acute (6) B12 deficiency anemia: Status: Acute (7) Yeast detected: Status: Acute (8) Pulmonary embolism: Status: Acute (9) Acute respiratory distress syndrome (ARDS) due to 2019 novel coronavirus: Status: Acute (10) ATN (acute tubular necrosis): Status: Acute (11) COVID: Status: Acute (12) Hypovolemic shock: Status: Acute (13) Acute kidney injury: Status: Acute (14) Acute pancreatitis: Status: Acute Plan Acute hypoxic respiratory failure requiring intubation 05/23/2021 -50% FiO2, 320 tidal volume, PEEP of 8 -Reintubations, or recurrent hypoxic respiratory failure from room air, etiology unclear -Possible aspiration as a component -Possible pulmonary edema as a component -No fevers overnight, culture so far unremarkable, I do not feel that there is an infectious etiology but I placed on vancomycin and Zosyn -Has had fungal positive sputum cultures, I feel unlikely to play a significant contributing factor, continue Diflucan for now -CT angiogram negative for pulmonary emboli -Cardiac echocardiogram negative for pericardial effusion, EF 55 to 60% -No significant electrolyte abnormalities -For now I have placed her on heparin drip given her elevated troponins, likely status post cardiac arrest, possible micropulmonary emboli associated with COVID-19, however venous ultrasound negative for DVT -Head CT negative for acute stroke -Will be transferred to [facility] for further evaluation -Currently not a candidate for lung transplant or ECMO, but might be in the future based on clinical progress Cardiac arrest -Currently based on my evaluation no significant evidence of anoxic brain injury she has a cough reflex, gag reflex, withdraws from pain, pupillary reflex, does open her eyes -Continue neuro checks, continue to monitor off sedation Patient was admitted on 04/19 for severe metabolic acidosis, hypertriglyceridemia induced pancreatitis, COVID-19 related ARDS First intubation?04/21?after an episode of vomiting while on BiPAP, developed aspiration pneumonia Right IJ dialysis catheter placed?04/20, extubated on?05/01 She did very well between?05/01 and 05/04, she was doing well on room air, wynn removed, antibiotic switched to Augmentin, started making urine, she was able to eat, bowel movements were regular no episodes of vomiting, fever susided Hypertriglyceridemia with pancreatitis improved with insulin gtt and avoiding propofol 05/05?she developed pulmonary edema again, she got worse overnight got transferred to ICU and got intubated on?05/06?for worsening tachypnea 05/15 since her extubation she has been doing fine on 2.5 L oxymaska, bronchioloalveolar lavage positive for trichosporans ashaii Hypovolemic shock: Required minimal Levophed during dialysis.? Wean off Levophed Acute respiratory failure requiring intubation: Multifactorial.? Extubated on 05/14. Most likely secondary to COVID-19, pulmonary embolism along with possible aspiration pneumonia. Sputum culture from 05/06+ for trichosporon Bigelli.(Corrected by [facility] lab, nurse called me into update about the results it is tricosporo asastephenie) Shiley catheter tip growing fungus. So far sputum culture? form?04/29 positive for Coco parapalosis. Repeat MRSA swab results negative. Blood cultures from and negative in 5 days. Repeat blood cultures sent on .? Fungal culture sent to [facility].? Sensitivity for fungal culture sent out as well. Vancomycin DC'd on 05/10.?Zosyn stopped on 05/13. CT sinuses negative for invasive fungal sinusitis. 05/15 2.5 L cannula, afebrile, hemodynamically stable 05/20 Amphotericin B discontinued, started fluconazole 200 mg daily for next 4 weeks Persistent febrile episodes:?Fever curve improving. Patient does have potential sources of infection as stated above.? Also has pulmonary embolism.? Cannot rule out febrile illness secondary to inflammation or antibiotic fevers versus drug fever versus possibility of organizing pneumonia. Currently afebrile, ATN: Nephrology on board. Became hypotensive during dialysis today no plan for dialysis today and tomorrow closely monitor for resistant hypervolemia, good urine output, creatinine trending downwards, continue to monitor kidney function, likely will not require further dialysis Anemia: No active signs of bleeding.? Can be multifactorial. Reticulocyte, iron panel, folate levels appreciated.? Haptoglobin level good. Received 2 units of blood transfusion during hospitalization.? Hemoglobin 7.8. Found to be vitamin B12 deficient.? Continue with vitamin B12 1000 mcg IM daily for 3 days. Switch to p.o. regimen Hypertriglyceridemia induced pancreatitis: Triglyceride about 500 started D5 and insulin on 05/20, now lipase under 500, stopped insulin drip patient has been tolerating pur?ed dysphagia diet which was recommended by speech therapist, will have speech therapy reevaluate Transition diet to low-fat diet Stop atorvastatin Continue gemfibrozil 600 twice daily Full code Parents stay with her most of the time Anxiety and depression, start Celexa 10 mg once a day, Klonopin as needed for anxiety episodes Disposition group home placement client experience manager working on it I unlikely to require any further dialysis, monitor blood pressures, monitor respiratory status Attestations Medical Necessity Statement*: Patient requires hospitalization for acute hypoxic respiratory failure sec to COVID-19 pneumonia Coding Level of Care Code Acute Scrap Carrier for Chg Fwd Diagnoses S/P dialysis catheter insertion Z95.828; Z99.2 Hypertriglyceridemia E78.1 Trichosporonosis B36.2 Coco parapsilosis infection B37.9 Persistent fever R50.9 B12 deficiency anemia D51.9 Yeast detected B37.9 Pulmonary embolism I26.99 Acute respiratory distress syndrome (ARDS) due to 2019 novel coronavirus U07.1; J80 ATN (acute tubular necrosis) N17.0 COVID U07.1 Hypovolemic shock R57.1 Acute kidney injury N17.9 Acute pancreatitis K85.90
--- NOTE | 2021-05-24 14:45 | PC.NURSE ---
Artie Trevino notified this nurse there would be an ETA of 9 hours for transport
[2021-05-24 14:47] LABS: Basophils # 0.1 10^3/uL (0.0-0.1); Eosinophils # 0.3 10^3/uL (0.0-0.8); Eosinophils % 2.4 %; Hematocrit 25.7 % (37.0-47.0); Hemoglobin 7.4 g/dL (11.5-15.3); Lymphocytes # 1.7 10^3/uL (0.8-4.8); Lymphocytes % 12.3 %; Mean Corpuscular HGB Conc 28.8 g/dL (30.0-36.0); Mean Corpuscular Hemoglobin 31.8 pg (28.0-34.0); Mean Corpuscular Volume 110.3 fl (81-99); Mean Platelet Volume 10.3 fL (7.4-10.4); Monocytes # 1.7 10^3/uL (0.2-0.9); Monocytes % 11.9 %; Neutrophils # 9.52 10^3/uL (1.8-7.7); Nucleated Red Blood Cells # 0.1 /100WBC; Platelet Count 306 10^3/cmm (130-400); Red Blood Count 2.33 10^6/uL (4.1-5.3); Red Cell Distribution Width 20.6 % (12.1-15.1)
--- NOTE | 2021-05-24 14:57 | P.TS_ITS ---
Transfer Summary Providers Date of Admission: 04/19/21 01:18 Date of Discharge/Transfer: 05/24/21 Attending Provider at Admission: Vinod Ireland MD Attending Provider at Transfer: Vinod Ireland MD Primary Care Provider: Colten Glaser MD Transfer Plans: Anticipated date of transfer: 05/24/21 . Diagnoses at Discharge Discharge Diagnosis (1) S/P dialysis catheter insertion: Status: Acute Permanent problem details: Permacath3/1 (2) Hypertriglyceridemia: Status: Acute (3) Trichosporonosis: Status: Acute (4) Coco parapsilosis infection: Status: Acute Permanent problem details: presumed invasive candidiasis (5) Persistent fever: Status: Acute (6) B12 deficiency anemia: Status: Acute (7) Yeast detected: Status: Acute Permanent problem details: Coco parapsilosis 04/29, endotracheal aspirate Trichosporosis ashai (8) Pulmonary embolism: Status: Acute (9) Acute respiratory distress syndrome (ARDS) due to 2019 novel coronavirus: Status: Acute (10) ATN (acute tubular necrosis): Status: Acute (11) COVID: Status: Acute (12) Hypovolemic shock: Status: Acute (13) Acute kidney injury: Status: Acute (14) Acute pancreatitis: Status: Acute Reason for Visit Reason for Visit [facility] Hospital Course Hospital Course This is a 40-year-old female with past medical history of polycystic ovarian syndrome, hypertriglyceridemia, hypertension, depression, history of cognitive impairment who presents to [facility] due to nausea, vomiting, abdominal pain, increased confusion Patient patient has had a hospitalization, over 35 days, requiring 3 reintubations, transferred to [facility], please see details as below Initially patient was admitted for acute encephalopathy, increased anion gap metabolic acidosis, DKA, acute renal failure, lactic acidosis, hypertriglyceridemia induced acute pancreatitis. She was managed in ICU, on insulin drip, triglycerides monitored, blood sugars monitored, renal function monitored. She was also found to have groundglass opacities on chest x-ray diffuse, diagnosed with COVID-19 pneumonia, and acute respiratory distress syndrome. She required dialysis catheter placement on 04/20 for acute renal failure. Patient first intubation was April 21, 2020, which was an episode of vomiting while on BiPAP, developed aspiration pneumonia, extubated 05/01/2020, she did we ll overall, will transition to room air, Craroll catheter removed, switch to p.o. antibiotic On 05/05/2020, patient developed worsening respiratory failure, presumed aspiration, pulmonary edema, transferred to the ICU and then subsequently got elevated to May 06 for worsening respiratory failure, she was then subsequently extubated 05/15 to 2.5 L, transesophageal cardiogram showed normal ejection fraction, so no significant valvular abnormalities, bronchial washings showed inflammation, her cultures did show try close marijuana a and Coco species, for which she was initially managed with amphotericin B switch to Diflucan. She was subsequently extubated 05/15, monitored in ICU, transition to room air, off all pressors, intermittently requiring pressors during dialysis, however not requiring dialysis since May 21, off pressors, good urine output, she was actually moved to the general medical floors. On the general medical floor she remained on room air, no evidence of fluid overload, did have significant anxiety with sinus tachycardia, getting up to the side of bed with physical therapy, plans were to go to long term for skilled rehab. Her antibiotic therapy was also deescalated. She remained afebrile, repeat culture so far unremarkable, good urine output. On 05/23/2021, developed acute respiratory failure, tachypnea requiring nonrebreather, then subsequent reintubation developed asystole during rapid sequence intubation, CPR per minute, ROSC after a minute, currently intubated, sedated on mechanical ventilation, on 50% FiO2, 2000 cc urine output, no Levophed, opens her eyes, withdraws from pain, good cough, good gag reflex Acute hypoxic respiratory failure requiring intubation 05/23/2021 -50% FiO2, 320 tidal volume, PEEP of 8 -I spent a total 18 days on the vent -3 reintubations -Prior reintubations secondary to aspiration, pulmonary edema -Patient has on all occasions gone from room air to the vent within 24 hours -Reintubations, or recurrent hypoxic respiratory failure from room air, etiology unclear -Possible aspiration as a component -Possible pulmonary edema as a component -No fevers overnight, culture so far unremarkable, I do not feel that there is an infectious etiology but I placed on vancomycin and Zosyn -Has had fungal positive sputum cultures, I feel unlikely to play a significant contributing factor, continue Diflucan for now -CT angiogram negative for pulmonary emboli -Cardiac echocardiogram negative for pericardial effusion, EF 55 to 60% -No significant electrolyte abnormalities -For now I have placed her on heparin drip given her elevated troponins, likely status post cardiac arrest, possible micropulmonary emboli associated with COVID-19, however venous ultrasound negative for DVT -Head CT negative for acute stroke -Will be transferred to [facility] for further evaluation -Currently not a candidate for lung transplant or ECMO, but might be in the future based on clinical progress Cardiac arrest -Currently based on my evaluation no significant evidence of anoxic brain injury she has a cough reflex, gag reflex, withdraws from pain, pupillary reflex, does open her eyes -Continue neuro checks, continue to monitor off sedation Physical Exam Urinary Catheter Management: Carroll: Cath Placed During This Visit: yes, but has since been removed by the nurse Reason for Continuing Indwelling Catheter: Other Urinary Catheter Date of Insertion: 05/11/21 Urinary Catheter Time of Insertion: 14:00 Date Urinary Catheter Removed: 04/28/21 Time Urinary Catheter Discontinued: 10:30 TS Data Studies Completed and Pending Pending at discharge Category Date Time Status Aspergillus AG,EIA,Serum Stat Lab 05/24/21 09:22 Received Bacterial Antigen Stat Lab 05/24/21 07:15 Uncollected Blood Culture Stat Lab 05/20/21 10:11 Results Blood Culture Stat Lab 05/24/21 09:26 Results C Reactive Protein AM LABS Lab 05/25/21 04:00 Ordered Complete Blood Count w/Auto AM LABS Lab 05/25/21 04:00 Ordered Comprehensive Metabolic Panel AM LABS Lab 05/25/21 04:00 Ordered Fungal Culture not HR/SK/BL Stat Lab 05/08/21 08:55 Results Legionella Antigen STAT Stat Lab 05/24/21 07:15 Uncollected MRSA by PCR Stat Lab 05/24/21 07:15 Uncollected Magnesium AM LABS Lab 05/25/21 04:00 Ordered Miscellaneous Test Routine Lab 05/11/21 15:04 Received Miscellaneous Test Routine Lab 05/12/21 09:40 Received Miscellaneous Test Routine Lab 05/12/21 09:47 Received Phosphorus AM LABS Lab 05/25/21 04:00 Ordered Platelet Count Q2D Lab 05/26/21 04:00 Ordered Platelet Count Q2D Lab 05/28/21 04:00 Ordered Procalcitonin AM LABS Lab 05/25/21 04:00 Ordered Sputum Culture and Gram Stain Stat Lab 05/24/21 07:15 Uncollected Troponin(5th) 6 hour. Timed Lab 05/24/21 15:01 Ordered Vancomycin Trough Timed Lab 05/27/21 07:00 Ordered Labs from last 24 hours 05/24/21 05/24/21 05/24/21 14:30 11:58 11:49 WBC 14.0 H RBC 2.33 L Hgb 7.4 L Hct 25.7 L MCV 110.3 H MCH 31.8 MCHC 28.8 L RDW 20.6 H Plt Count 306 MPV 10.3 Neut % (Auto) 68.0 Lymph % (Auto) 12.3 Petroleum % (Auto) 11.9 Eos % (Auto) 2.4 Baso % (Auto) 1.0 Reticulocyte % (Auto) Neut # (Auto) 9.52 H Lymph # (Auto) 1.7 Petroleum # (Auto) 1.7 H Eos # (Auto) 0.3 Baso # (Auto) 0.1 Nucleated RBC % (auto) 1.0 Nucleated RBCs # 0.1 Specimen Type Sample Site ABG pH ABG pCO2 ABG pO2 ABG HCO3 ABG O2 Saturation ABG Base Excess Dennis Test A-a O2 Gradient Hematocrit Hgb O2 Saturation Carboxyhemoglobin Methemoglobin Total Hemoglobin Sodium Potassium Glucose Ionized Calcium O2 Delivery Device O2 Liters/Min FiO2 Tidal Volume PEEP Sample Maker Original ID Chloride Carbon Dioxide Anion Gap BUN Creatinine GFR Calculation POC Glucose 84 Calculated Osmolality Calcium Phosphorus Magnesium Ferritin Total Bilirubin AST ALT Alkaline Phosphatase Troponin T Gen 5 ng/L Troponin T Baseline Troponin T 120 Minute 211.0 H Delta Troponin T -3.0 L C-Reactive Protein Total Protein Albumin Globulin Triglycerides Vitamin B12 Folate Procalcitonin A. galactomannan Ag EIA A. galactomannan Ag Idx 05/24/21 05/24/21 05/24/21 09:37 09:22 09:22 WBC RBC Hgb Hct MCV MCH MCHC RDW Plt Count MPV Neut % (Auto) Lymph % (Auto) Petroleum % (Auto) Eos % (Auto) Baso % (Auto) Reticulocyte % (Auto) Neut # (Auto) Lymph # (Auto) Petroleum # (Auto) Eos # (Auto) Baso # (Auto) Nucleated RBC % (auto) Nucleated RBCs # Specimen Type Arterial Sample Site Brachial, right ABG pH 7.35 ABG pCO2 41.6 ABG pO2 113.0 H ABG HCO3 22.9 ABG O2 Saturation 99.2 ABG Base Excess -2.5 L Dennis Test Pos A-a O2 Gradient 52.7 H Hematocrit 23.2 L Hgb O2 Saturation 97.0 Carboxyhemoglobin 1.7 Methemoglobin 0.6 Total Hemoglobin 7.6 L Sodium 143.0 Potassium 4.1 Glucose 88.0 Ionized Calcium 1.2 O2 Delivery Device Vent O2 Liters/Min FiO2 80.0 Tidal Volume 0.32 PEEP 8.0 Sample Maker Original ID Bd Chloride Carbon Dioxide Anion Gap BUN Creatinine GFR Calculation POC Glucose Calculated Osmolality Calcium Phosphorus Magnesium Ferritin Total Bilirubin AST ALT Alkaline Phosphatase Troponin T Gen 5 ng/L Troponin T Baseline 214 H* Troponin T 120 Minute Delta Troponin T C-Reactive Protein Total Protein Albumin Globulin Triglycerides Vitamin B12 Folate Procalcitonin A. galactomannan Ag EIA Pending A. galactomannan Ag Idx Pending 05/24/21 05/24/21 05/24/21 09:22 09:22 09:22 WBC RBC Hgb Hct MCV MCH MCHC RDW Plt Count 329 MPV Neut % (Auto) Lymph % (Auto) Petroleum % (Auto) Eos % (Auto) Baso % (Auto) Reticulocyte % (Auto) 7.7 H Neut # (Auto) Lymph # (Auto) Petroleum # (Auto) Eos # (Auto) Baso # (Auto) Nucleated RBC % (auto) Nucleated RBCs # Specimen Type Sample Site ABG pH ABG pCO2 ABG pO2 ABG HCO3 ABG O2 Saturation ABG Base Excess Dennis Test A-a O2 Gradient Hematocrit Hgb O2 Saturation Carboxyhemoglobin Methemoglobin Total Hemoglobin Sodium Potassium Glucose Ionized Calcium O2 Delivery Device O2 Liters/Min FiO2 Tidal Volume PEEP Sample Maker Original ID Chloride Carbon Dioxide Anion Gap BUN Creatinine GFR Calculation POC Glucose Calculated Osmolality Calcium Phosphorus Magnesium Ferritin 1456 H Total Bilirubin AST ALT Alkaline Phosphatase Troponin T Gen 5 ng/L Troponin T Baseline Troponin T 120 Minute Delta Troponin T C-Reactive Protein Total Protein Albumin Globulin Triglycerides Vitamin B12 836 Folate 6.7 Procalcitonin A. galactomannan Ag EIA A. galactomannan Ag Idx 05/24/21 05/24/21 05/24/21 07:40 06:35 05:25 WBC RBC Hgb Hct MCV MCH MCHC RDW Plt Count MPV Neut % (Auto) Lymph % (Auto) Petroleum % (Auto) Eos % (Auto) Baso % (Auto) Reticulocyte % (Auto) Neut # (Auto) Lymph # (Auto) Petroleum # (Auto) Eos # (Auto) Baso # (Auto) Nucleated RBC % (auto) Nucleated RBCs # Specimen Type Sample Site ABG pH ABG pCO2 ABG pO2 ABG HCO3 ABG O2 Saturation ABG Base Excess Dennis Test A-a O2 Gradient Hematocrit Hgb O2 Saturation Carboxyhemoglobin Methemoglobin Total Hemoglobin Sodium Potassium Glucose Ionized Calcium O2 Delivery Device O2 Liters/Min FiO2 Tidal Volume PEEP Sample Maker Original ID Chloride Carbon Dioxide Anion Gap BUN Creatinine GFR Calculation POC Glucose 107 122 H Calculated Osmolality Calcium Phosphorus Magnesium Ferritin Total Bilirubin AST ALT Alkaline Phosphatase Troponin T Gen 5 ng/L 172 H* Troponin T Baseline Troponin T 120 Minute Delta Troponin T C-Reactive Protein Total Protein Albumin Globulin Triglycerides Vitamin B12 Folate Procalcitonin A. galactomannan Ag EIA A. galactomannan Ag Idx 05/24/21 05/24/21 05/24/21 03:39 03:39 03:39 WBC RBC Hgb Hct MCV MCH MCHC RDW Plt Count MPV Neut % (Auto) Lymph % (Auto) Petroleum % (Auto) Eos % (Auto) Baso % (Auto) Reticulocyte % (Auto) Neut # (Auto) Lymph # (Auto) Petroleum # (Auto) Eos # (Auto) Baso # (Auto) Nucleated RBC % (auto) Nucleated RBCs # Specimen Type Arterial Sample Site Brachial, right ABG pH 7.42 ABG pCO2 34.7 L ABG pO2 77.0 L ABG HCO3 22.4 ABG O2 Saturation 96.1 ABG Base Excess -1.8 Dennis Test Pos A-a O2 Gradient 76.6 H Hematocrit 24.3 L Hgb O2 Saturation 93.6 L Carboxyhemoglobin 1.9 Methemoglobin 0.6 Total Hemoglobin 7.9 L Sodium 144.0 H 143 Potassium 3.9 4.0 Glucose 102.0 102 Ionized Calcium 1.2 O2 Delivery Device Nrb O2 Liters/Min 15.0 FiO2 100.0 Tidal Volume PEEP Sample Maker Original ID Bisje Chloride 108 H Carbon Dioxide 21 L Anion Gap 18.0 BUN 20 Creatinine 0.8 GFR Calculation 79.9 L POC Glucose Calculated Osmolality 299 H Calcium 7.9 L Phosphorus 4.6 H Magnesium 2.1 Ferritin Total Bilirubin 0.6 AST 32 ALT 13 Alkaline Phosphatase 243 H Troponin T Gen 5 ng/L 164 H* Troponin T Baseline Troponin T 120 Minute Delta Troponin T C-Reactive Protein 5.2 H Total Protein 5.6 L Albumin 3.1 L Globulin 2.5 Triglycerides 314 H Vitamin B12 Folate Procalcitonin 0.23 A. galactomannan Ag EIA A. galactomannan Ag Idx 05/24/21 05/24/21 05/23/21 03:39 03:38 20:34 WBC 15.9 H RBC 2.45 L Hgb 7.7 L Hct 26.6 L MCV 108.6 H MCH 31.4 MCHC 28.9 L RDW 20.9 H Plt Count 376 MPV 10.1 Neut % (Auto) 67.4 Lymph % (Auto) 16.7 Petroleum % (Auto) 11.2 Eos % (Auto) 1.3 Baso % (Auto) 0.6 Reticulocyte % (Auto) Neut # (Auto) 10.72 H Lymph # (Auto) 2.7 Petroleum # (Auto) 1.8 H Eos # (Auto) 0.2 Baso # (Auto) 0.1 Nucleated RBC % (auto) 0.5 Nucleated RBCs # 0.1 Specimen Type Sample Site ABG pH ABG pCO2 ABG pO2 ABG HCO3 ABG O2 Saturation ABG Base Excess Dennis Test A-a O2 Gradient Hematocrit Hgb O2 Saturation Carboxyhemoglobin Methemoglobin Total Hemoglobin Sodium Potassium Glucose Ionized Calcium O2 Delivery Device O2 Liters/Min FiO2 Tidal Volume PEEP Sample Maker Original ID Chloride Carbon Dioxide Anion Gap BUN Creatinine GFR Calculation POC Glucose 101 152 H Calculated Osmolality Calcium Phosphorus Magnesium Ferritin Total Bilirubin AST ALT Alkaline Phosphatase Troponin T Gen 5 ng/L Troponin T Baseline Troponin T 120 Minute Delta Troponin T C-Reactive Protein Total Protein Albumin Globulin Triglycerides Vitamin B12 Folate Procalcitonin A. galactomannan Ag EIA A. galactomannan Ag Idx 05/23/21 16:45 WBC RBC Hgb Hct MCV MCH MCHC RDW Plt Count MPV Neut % (Auto) Lymph % (Auto) Petroleum % (Auto) Eos % (Auto) Baso % (Auto) Reticulocyte % (Auto) Neut # (Auto) Lymph # (Auto) Petroleum # (Auto) Eos # (Auto) Baso # (Auto) Nucleated RBC % (auto) Nucleated RBCs # Specimen Type Sample Site ABG pH ABG pCO2 ABG pO2 ABG HCO3 ABG O2 Saturation ABG Base Excess Dennis Test A-a O2 Gradient Hematocrit Hgb O2 Saturation Carboxyhemoglobin Methemoglobin Total Hemoglobin Sodium Potassium Glucose Ionized Calcium O2 Delivery Device O2 Liters/Min FiO2 Tidal Volume PEEP Sample Maker Original ID Chloride Carbon Dioxide Anion Gap BUN Creatinine GFR Calculation POC Glucose 176 H Calculated Osmolality Calcium Phosphorus Magnesium Ferritin Total Bilirubin AST ALT Alkaline Phosphatase Troponin T Gen 5 ng/L Troponin T Baseline Troponin T 120 Minute Delta Troponin T C-Reactive Protein Total Protein Albumin Globulin Triglycerides Vitamin B12 Folate Procalcitonin A. galactomannan Ag EIA A. galactomannan Ag Idx Completed Studies During Hospitalization Category Date Time Status CT abdomen pelvis wo con [id number] Routine Cat Scan 04/25/21 14:[address] abdomen pelvis wo con [id number] Routine Cat Scan 05/24/21 07:[address] abdomen pelvis wo con [id number] Urgent Cat Scan 04/18/21 23:[address] angio chest PE protcl [id number] Stat Cat Scan 05/24/21 07:[address] angio chest w abd pel w con Routine Cat Scan 04/22/21 07:[address] chest abdomen pelvis [CT chest abd pel wo con] Cat Scan 05/07/21 16:[address] chest wo con [id number] Routine Cat Scan 04/19/21 02:[address] head wo con* [id number] Routine Cat Scan 04/19/21 02:[address] head wo con* [id number] Routine Cat Scan 04/25/21 14:[address] head wo con* [id number] Routine Cat Scan 05/10/21 11:[address] head wo con* [id number] Routine Cat Scan 05/24/21 08:[address] sinus w con [id number] Routine Cat Scan 05/11/21 13:18 Completed CXRP [XR chest 1V portable [id number]] Routine Exams 04/23/21 04:16 Completed CXRP [XR chest 1V portable [id number]] Routine Exams 05/17/21 08:00 Completed CXRP [XR chest 1V portable [id number]] Routine Exams 05/21/21 17:04 Completed CXRP [XR chest 1V portable [id number]] Stat Exams 04/25/21 07:51 Completed CXRP [XR chest 1V portable [id number]] Stat Exams 05/06/21 11:47 Completed CXRP [XR chest 1V portable [id number]] Urgent Exams 05/11/21 08:07 Completed XR KUB portable [id number] Routine Exams 04/24/21 11:53 Completed XR KUB portable [id number] Routine Exams 04/26/21 14:33 Completed XR KUB portable [id number] Routine Exams 05/10/21 10:57 Completed XR KUB portable [id number] Routine Exams 05/14/21 10:00 Completed XR chest 1V 79488 Stat Exams 05/24/21 03:34 Completed XR chest 1V portable [id number] NOW Exams 04/20/21 13:29 Completed XR chest 1V portable [id number] Routine Exams 04/21/21 01:21 Completed XR chest 1V portable 04005 Routine Exams 04/23/21 06:49 Completed XR chest 1V portable [id number] Routine Exams 04/29/21 06:52 Completed XR chest 1V portable [id number] Routine Exams 04/30/21 06:13 Completed XR chest 1V portable [id number] Routine Exams 05/05/21 21:41 Completed XR chest 1V portable [id number] Routine Exams 05/06/21 07:17 Completed XR chest 1V portable [id number] Routine Exams 05/06/21 18:24 Completed XR chest 1V portable 33296 Routine Exams 05/08/21 13:06 Completed XR chest 1V portable [id number] Routine Exams 05/12/21 06:00 Completed XR chest 1V portable [id number] Routine Exams 05/19/21 15:41 Completed XR chest 1V portable [id number] Routine Exams 05/19/21 16:00 Completed XR chest 1V portable [id number] Routine Exams 05/21/21 Completed XR chest 1V portable [id number] Stat Exams 04/18/21 22:05 Completed XR chest 1V portable [id number] Stat Exams 04/20/21 09:07 Completed XR chest 1V portable [id number] Stat Exams 05/05/21 08:06 Completed XR chest 1V portable [id number] Stat Exams 05/06/21 13:03 Completed XR chest 1V portable [id number] Stat Exams 05/18/21 20:29 Completed XR chest 1V portable [id number] Stat Exams 05/18/21 22:35 Completed XR chest 1V portable [id number] Stat Exams 05/24/21 05:36 Completed XR pelvis 1-2V* [id number] Routine Exams 05/12/21 13:35 [place] [id number] Routine Ultrasound 04/20/21 13:55 Completed CV. echo complete* [id number] Routine Ultrasound 04/21/21 Completed CV. echo complete* [id number] Stat Ultrasound 05/24/21 07:18 Completed CV. echo transesophageal [id number] Routine Ultrasound 05/13/21 07:00 Completed US abdomen complete* [id number] Urgent Ultrasound 04/19/21 02:25 Completed US gall bladder [id number] Stat Ultrasound 04/25/21 07:53 Completed US venous duplex lower extremity bilat [CV venous Ultrasound 05/10/21 11:13 [place] [id number]] Routine US venous duplex lower extremity bilat [CV venous Ultrasound 05/24/21 07:22 [place] [address]] Routine Laboratory Last Values WBC 14.0 10^3/uL (4.0-10.0) H 05/24/21 14:30 Corrected WBC 11.3 10^3/cmm (4.8-10.8) H 05/20/21 04:14 RBC 2.33 10^6/uL (4.1-5.3) L 05/24/21 14:30 Hgb 7.4 g/dL (11.5-15.3) L 05/24/21 14:30 Hct 25.7 % (37.0-47.0) L 05/24/21 14:30 MCV 110.3 fl (81-99) H 05/24/21 14:30 MCH 31.8 pg (28.0-34.0) 05/24/21 14:30 MCHC 28.8 g/dL (30.0-36.0) L 05/24/21 14:30 RDW 20.6 % (12.1-15.1) H 05/24/21 14:30 Plt Count 306 10^3/cmm (130-400) 05/24/21 14:30 MPV 10.3 fL (7.4-10.4) 05/24/21 14:30 Neut % (Auto) 68.0 % 05/24/21 14:30 Lymph % (Auto) 12.3 % 05/24/21 14:30 Petroleum % (Auto) 11.9 % 05/24/21 14:30 Eos % (Auto) 2.4 % 05/24/21 14:30 Baso % (Auto) 1.0 % 05/24/21 14:30 Reticulocyte % (Auto) 7.7 % (0.5-2.0) H 05/24/21 09:22 Neut # (Auto) 9.52 10^3/uL (1.8-7.7) H 05/24/21 14:30 Lymph # (Auto) 1.7 10^3/uL (0.8-4.8) 05/24/21 14:30 Petroleum # (Auto) 1.7 10^3/uL (0.2-0.9) H 05/24/21 14:30 Eos # (Auto) 0.3 10^3/uL (0.0-0.8) 05/24/21 14:30 Baso # (Auto) 0.1 10^3/uL (0.0-0.1) 05/24/21 14:30 Nucleated RBC % (auto) 1.0 % 05/24/21 14:30 Total Counted 100 (0-100) 05/20/21 04:14 Atypical Lymphs % 1.0 % (0-5) 05/20/21 04:14 Absolute Neutrophils 8.5 10^3/cmm (1.4-6.5) H 05/20/21 04:14 Segmented Neutrophils 58 % 05/20/21 04:14 Abs Segm Neuts (Man) 6.8 10/cmm (1.6-7.1) 05/20/21 04:14 Band Neutrophils 14.0 % 05/20/21 04:14 Abs Band Neuts (Man) 1.7 10^3/cmm (0.0-1.2) H 05/20/21 04:14 Absolute Lymphocytes 1.7 10^3/cmm (1.2-3.4) 05/20/21 04:14 Lymphocytes (Manual) 13 % 05/20/21 04:14 Monocytes (Manual) 5.0 % 05/20/21 04:14 Absolute Monocytes 0.6 10^3/cmm (0.1-0.6) 05/20/21 04:14 Eosinophils (Manual) 6 % 05/20/21 04:14 Absolute Eosinophils 0.7 10^3/cmm (0.0-0.7) 05/20/21 04:14 Basophils (Manual) 0.0 % 05/20/21 04:14 Absolute Basophils 0.0 10^3/cmm (0.0-0.2) 05/20/21 04:14 Metamyelocytes 3.0 % 05/20/21 04:14 Myelocytes 2.0 % 04/29/21 07:50 Nucleated RBCs 4.0 /100WBC (0-1) H 05/20/21 04:14 Nucleated RBCs # 0.1 /100WBC 05/24/21 14:30 Platelet Estimate Increased (Normal) H 05/20/21 04:14 Polychromasia 1+ H 05/20/21 04:14 Hypochromasia 2+ H 04/23/21 18:20 Basophilic Stippling Trace 04/21/21 Unknown Anisocytosis 2+ H 05/20/21 04:14 ESR 12 mm/hr (0-15) 05/12/21 05:15 Haptoglobin 258.0 mg/L (30-200) H 05/09/21 04:12 PT 16.40 SECONDS (12.1-14.9) H 04/19/21 03:00 INR 1.28 (0.8-1.2) H 04/19/21 03:00 APTT 36.8 SECONDS (23.9-36.7) H 05/14/21 15:02 Fibrinogen 310 mg/dL (174-498) 04/19/21 03:00 Fibrin Degrad Products Pos, 10-40 ug/mL (NEG) H 04/19/21 03:00 D-Dimer 6.68 ug/mIFEU (0-0.59) H 04/21/21 03:50 Specimen Type Arterial 05/24/21 09:37 Sample Site Brachial, right 05/24/21 09:37 ABG pH 7.35 (7.35-7.45) 05/24/21 09:37 ABG pCO2 41.6 mmHg (35-45) 05/24/21 09:37 ABG pO2 113.0 mmHg (80.0-100.0) H 05/24/21 09:37 ABG HCO3 22.9 mmol/L (22-26) 05/24/21 09:37 ABG O2 Saturation 99.2 05/24/21 09:37 ABG Base Excess -2.5 mmol/L (-2.0-2.0) L 05/24/21 09:37 Dennis Test Pos 05/24/21 09:37 A-a O2 Gradient 52.7 mmHg (5-10) H 05/24/21 09:37 Hematocrit 23.2 % (37-47) L 05/24/21 09:37 Hgb O2 Saturation 97.0 % (95-100) 05/24/21 09:37 Carboxyhemoglobin 1.7 %THgb (0.4-20.1) 05/24/21 09:37 Methemoglobin 0.6 % (0.4-1.5) 05/24/21 09:37 Total Hemoglobin 7.6 g/dL (12-16) L 05/24/21 09:37 Sodium 143.0 mmol/L (131-143) 05/24/21 09:37 Potassium 4.1 mmol/L (3.5-5.0) 05/24/21 09:37 Glucose 88.0 mg/dL (70-115) 05/24/21 09:37 Ionized Calcium 1.2 mmol/L (1.1-1.4) 05/24/21 09:37 Respiration Rate 20.0 % 04/23/21 05:25 O2 Delivery Device Vent 05/24/21 09:37 O2 Liters/Min 15.0 % 05/24/21 03:39 Mechanical Rate 20.0 04/26/21 04:00 FiO2 80.0 % 05/24/21 09:37 Tidal Volume 0.32 05/24/21 09:37 PEEP 8.0 cmH20 05/24/21 09:37 Sample Maker Original ID Bd 05/24/21 09:37 Sodium 143 mmol/L (136-145) 05/24/21 03:39 Potassium 4.0 mmol/L (3.5-5.1) 05/24/21 03:39 Chloride 108 mmol/L (98-107) H 05/24/21 03:39 Carbon Dioxide 21 mmol/L (22-29) L 05/24/21 03:39 Anion Gap 18.0 (5-19) 05/24/21 03:39 BUN 20 mg/dL (6-20) 05/24/21 03:39 Creatinine 0.8 mg/dL (0.5-0.9) 05/24/21 03:39 GFR Calculation 79.9 mL/min (90-130) L 05/24/21 03:39 Glucose 102 mg/dL (65-115) 05/24/21 03:39 POC Glucose 84 mg/dL (70-110) 05/24/21 11:58 Estimat Average Glucose 134 04/18/21 22:48 Hemoglobin A1c 6.3 % (4.0-6.0) H 04/18/21 22:48 Calculated Osmolality 299 mOsm/kg (285-295) H 05/24/21 03:39 Lactic Acid 5.1 mmol/L (0.5-2.2) H* 04/20/21 03:20 Lactic Acid (Sepsis) 4.7 mmol/L (0.5-2.2) H* 04/20/21 06:47 Lactate 0.9 mmol/L (0.5-2.2) 05/06/21 07:20 Uric Acid 12.0 mg/dL (2.4-5.7) H 04/20/21 09:20 Calcium 7.9 mg/dL (8.5-10.5) L 05/24/21 03:39 Phosphorus 4.6 mg/dL (2.5-4.5) H 05/24/21 03:39 Magnesium 2.1 mg/dL (1.7-2.3) 05/24/21 03:39 Iron 37 ug/dL (37-145) 04/23/21 06:20 TIBC 157 mcg/dl 04/23/21 06:20 % Saturation 23.5 % (20-50) 04/23/21 06:20 Unsat Iron Binding 120 ug/dL (112-347) 04/23/21 06:20 Ferritin 1456 ng/mL (15-150) H 05/24/21 09:22 Total Bilirubin 0.6 mg/dL (0.15-1.2) 05/24/21 03:39 GGT 108 U/L (5-36) H 04/19/21 03:00 AST 32 U/L (0-32) 05/24/21 03:39 ALT 13 U/L (0-33) 05/24/21 03:39 Alkaline Phosphatase 243 IU/L (35-105) H 05/24/21 03:39 Lactate Dehydrogenase 491 U/L (135-214) H 04/30/21 03:58 Creatine Kinase 79 U/L (26-192) 04/19/21 03:00 Troponin T Gen 5 ng/L 172 ng/L (0-10) H* 05/24/21 05:25 Troponin T Baseline 214 ng/L (0-10) H* 05/24/21 09:22 Troponin T 120 Minute 211.0 ng/L (0-10) H 05/24/21 11:49 Delta Troponin T -3.0 ABS# (0-10) L 05/24/21 11:49 Troponin T Hi Sens 6Hr 27.06 ng/L (0-10) H 04/21/21 03:50 Troponin T Hi Sens 6Hr Delta -3.94 ng/L (0-12) L 04/21/21 03:50 C-Reactive Protein 5.2 mg/L (0.0-4.9) H 05/24/21 03:39 Total Protein 5.6 g/dL (6.6-8.7) L 05/24/21 03:39 Albumin 3.1 g/dL (3.5-5.2) L 05/24/21 03:39 Globulin 2.5 g/dL (1.3-4.6) 05/24/21 03:39 Triglycerides 314 mg/dL (0-150) H 05/24/21 03:39 Cholesterol 322 mg/dL (0-200) H 04/19/21 03:00 LDL Cholesterol Direct 73 mg/dL (0-100) 05/23/21 04:40 LDL Cholesterol, Calc Not Reportable 04/19/21 03:00 HDL Cholesterol 12 mg/dL (60-100) L 04/19/21 03:00 LDL/HDL Ratio Not Reportable 04/19/21 03:00 Cholesterol/HDL Ratio 26.83 mg/dL (0.0-4.40) H 04/19/21 03:00 Lipase 8 U/L (13-60) L 05/22/21 05:03 Vitamin B12 836 pg/mL (232-1245) 05/24/21 09:22 25-OH Vitamin D Total 7 ng/mL (30-100) L 04/21/21 03:50 1,25 Dihydroxy Vit D2 <8 pg/mL 04/20/21 03:20 1,25 Dihydroxy Vit D3 <8 pg/mL 04/20/21 03:20 Folate 6.7 ng/mL (4.8-37.3) 05/24/21 09:22 Procalcitonin 0.23 ng/mL (0-0.5) 05/24/21 03:39 TSH 1.02 uIU/mL (0.27-4.20) 04/19/21 03:00 HCG, Qual Negative (Negative) 04/18/21 22:48 PTH Intact 274.7 pg/mL (15-65) H 04/21/21 03:50 Calcium (PTH Intact) 6.7 mg/dL (8.5-10.5) L 04/21/21 03:50 Urine Color Yellow (Yellow) 05/05/21 08:00 Urine Appearance Clear (CLEAR) 05/05/21 08:00 Urine pH 8 (5-7) H 05/05/21 08:00 Ur Specific [place] 1.005 (1.005-1.030) 05/05/21 08:00 Urine Protein Neg (Negative) 05/05/21 08:00 Urine Glucose (UA) Norm (Normal) 05/05/21 08:00 Urine Ketones Negative (Negative) 05/05/21 08:00 Urine Blood 2+ (Negative) H 05/05/21 08:00 Urine Nitrate Negative (Negative) 05/05/21 08:00 Urine Bilirubin Neg (Negative) 05/05/21 08:00 Prot Sulfosalicylic Acd Negative (Negative) 05/05/21 08:00 Urine Urobilinogen Norm mg/dL (Negative) 05/05/21 08:00 Ur Leukocyte Esterase Negative (Negative) 05/05/21 08:00 Urine RBC 0-4 /hpf (0-2) H 05/05/21 08:00 Urine WBC 10-15 /hpf (0-5) H 05/05/21 08:00 Ur Eosinophil Smear 0 (0-0) 04/19/21 05:35 Ur Squamous Epith Cells 0-4 /hpf (0-5) H 05/05/21 08:00 Amorphous Sediment Not Reportable 05/05/21 08:00 Urine Bacteria Trace /hpf (NONE) 05/05/21 08:00 Urine Eosinophils No eosinophils seen 04/19/21 05:35 Ur Random Creatinine 128 mg/dL (20-275) 04/19/21 05:35 Ur Random Albumin 46 % 04/19/21 05:35 U Random Total Protein 727 mg/dL (5-24) H 04/19/21 05:35 Ur Random Sodium 57 mmol/L 04/19/21 05:35 Ur Random Potassium 27 mmol/L 04/19/21 05:35 Ur Random Chloride 50 mmol/L 04/19/21 05:35 Urine Creatinine 139 mg/dL (28-217) 04/19/21 05:35 Protein/Creatinin Ratio 5680 mg/g creat (21-161) H 04/19/21 05:35 Protein/Creat Ratio 24h 5.680 (0.021-0.161) H 04/19/21 05:35 U Random x-3-Duqtosoj % 4 % 04/19/21 05:35 U Random e-2-Yykhztuh % 12 % 04/19/21 05:35 U Random Beta Globulin 21 % 04/19/21 05:35 U Random Gamma Glob 18 % 04/19/21 05:35 U Abnormal Prot Band 1 Not Reportable 04/19/21 05:35 U Abnormal Prot Band 2 Not Reportable 04/19/21 05:35 U Abnormal Prot Band 3 Not Reportable 04/19/21 05:35 Urine PEP Interpret See note 04/19/21 05:35 Nasal Influ A H1 2009 PCR Not detected (NOT DETECT) 05/12/21 13:00 RSV Nasal Swab Cancelled 05/12/21 13:00 RSV Nasal Swab Int Cntl Cancelled 05/12/21 13:00 Bronch Specimen Source Left lower lobe 05/08/21 08:55 Bronchial Fluid Color Slight pink 05/08/21 08:55 Bronchial Fluid Appearance Cloudy (CLEAR) 05/08/21 08:55 Bronchial Fluid WBC 808 /uL 05/08/21 08:55 Bronchial Fluid RBC 3 10^3/uL 05/08/21 08:55 Bronch Cells Counted 200 05/08/21 08:55 Bronchial Neutrophils 39.00 % (0.9-2.3) H 05/08/21 08:55 Bronchial Lymphocytes 18.00 % (10.71-12.91) H 05/08/21 08:55 Bronchial Eosinophils 0.00 % (0.13-0.25) L 05/08/21 08:55 Bronchial Macrophages 43.00 % (83.6-86.8) L 05/08/21 08:55 Bronchial Diff Comment Yes 05/08/21 08:55 Vancomycin Trough 20.5 ug/mL (10-15) H 05/11/21 03:00 Random Vancomycin 23.5 ug/mL (20.0-40.0) 05/09/21 04:17 Salicylates < 0.3 mg/dL (3-10) L 04/19/21 03:00 Acetaminophen < 5.0 ug/mL (10-30) L 04/19/21 03:00 Ethylene Glycol <10.0 mg/L () 04/19/21 03:00 Volat Analys Perform On Whole blood 04/19/21 03:00 Ethyl Alcohol < 10 mg/dL (0-10) 04/19/21 03:00 Urine Ethyl Alcohol Cancelled 04/19/21 05:35 Methyl Alcohol Level None detected mg/dL 04/19/21 03:00 Serum Ketones Negative (Negative) 04/29/21 07:50 ROBERT-1 Antibody <1.0 neg AI (<1.0 NEG) 05/12/21 Unknown SS-A/Ro IgG Antibody <1.0 neg AI (<1.0 NEG) 05/12/21 Unknown SS-B/La IgG Antibody <1.0 neg AI (<1.0 NEG) 05/12/21 Unknown Anti-nRNP/Sm IgG Ab <1.0 neg AI (<1.0 NEG) 05/12/21 Unknown Scl-70 Scleroderma Ab <1.0 neg AI (<1.0 NEG) 05/12/21 Unknown Anti-ds DNA IgG Ab <1 IU/mL 05/12/21 Unknown Adenovirus (PCR) Cancelled 05/12/21 13:00 Adenovirus (PCR) Not detected (NOT DETECT) 05/12/21 13:00 Lyme Ab (Western Blot) <0.90 index 05/12/21 Unknown C. pneumoniae DNA (PCR) Not detected (NOT DETECT) 05/12/21 13:00 Coronavirus 229E (PCR) Not detected (NOT DETECT) 05/12/21 13:00 E. chaffeensis IgG Ab <1:64 05/12/21 Unknown E. chaffeensis IgM Ab <1:20 05/12/21 Unknown E. chaffeensis Interp See note 05/12/21 Unknown E. chaffeensis Comment Not Reportable 05/12/21 Unknown Hepatitis A IgM Ab Non-reactive (Nonreactive) 04/19/21 03:00 Hep Bs Antigen Non-reactive (Nonreactive) 05/21/21 08:33 Hep Bs Antibody 3.5 (11.5-1000) L 04/20/21 03:20 Hep B Core IgM Ab Non-reactive (Nonreactive) 04/19/21 03:00 Hepatitis C Antibody Non-reactive (Nonreactive) 04/20/21 03:20 HIV 1&2 Ab & HIV 1 Ag Non-reactive (Non-Reactiv) 04/19/21 03:00 HIV 1&2 Antibody Non-reactive (Non-Reactiv) 04/19/21 03:00 Human Metapneumovir PCR Cancelled 05/12/21 13:00 Human Metapneumovir PCR Not detected (NOT DETECT) 05/12/21 13:00 Influenza A (RT-PCR) Cancelled 05/12/21 13:00 Influenza A (H1) PCR Cancelled 05/12/21 13:00 Influenza A (H1) PCR Not detected (NOT DETECT) 05/12/21 13:00 Influenza A (H3) PCR Cancelled 05/12/21 13:00 Influenza A (H3) PCR Not detected (NOT DETECT) 05/12/21 13:00 Influenza Type A Ag Negative (Negative) 04/19/21 05:35 Influenza Type A (PCR) Not detected (NOT DETECT) 05/12/21 13:00 Influenza Type B Ag Negative (Negative) 04/19/21 05:35 Influenza B (RT-PCR) Cancelled 05/12/21 13:00 Influenza Type B (PCR) Not detected (NOT DETECT) 05/12/21 13:00 M. pneumoniae (PCR) Not detected (NOT DETECT) 05/12/21 13:00 Parainfluenzae Type 1 Cancelled 05/12/21 13:00 Parainfluenza 1 (PCR) Not detected (NOT DETECT) 05/12/21 13:00 Parainfluenzae Type 2 Cancelled 05/12/21 13:00 Parainfluenza 2 (PCR) Not detected (NOT DETECT) 05/12/21 13:00 Parainfluenzae Type 3 Cancelled 05/12/21 13:00 Parainfluenza 3 (PCR) Not detected (NOT DETECT) 05/12/21 13:00 Parainfluenza 4 (PCR) Not detected (NOT DETECT) 05/12/21 13:00 Pneumocystis Source Broncholavage 05/08/21 08:55 Pneumocyst jiroveci PCR Not detected 05/08/21 08:55 RSV Ab Comment Cancelled 05/12/21 13:00 RSV Type A (PCR) Not detected (NOT DETECT) 05/12/21 13:00 RSV Type B (PCR) Not detected (NOT DETECT) 05/12/21 13:00 Rhinovirus (PCR) Cancelled 05/12/21 13:00 Entero/Rhino (PCR) Not detected (NOT DETECT) 05/12/21 13:00 Rickettsia IgG Ab Not detected 05/12/21 Unknown Rickettsia IgM Ab Not detected 05/12/21 Unknown SARS-CoV-2 (PCR) Not detected (NOT DETECT) 05/12/21 13:00 SARS-CoV-2 Ag (Rapid) Negative (Negative) 04/18/21 21:49 [facility] [place] Reference See comment 04/19/21 05:35 Blood Type O Positive 05/09/21 10:22 Rho(D) Type Positive 05/09/21 10:22 Antibody Screen Negative 05/09/21 10:22 Crossmatch See Detail 05/09/21 10:22 Radiology Impressions Abdomen Ultrasound 04/19/21 02:25 IMPRESSION: 1. Cholelithiasis. Chest CT 04/19/21 02:25 IMPRESSION: 1. Nonspecific gallbladder distention. No calcified stones. 2. Mild retroperitoneal stranding about the pancreas, correlate with pancreatic enzymes. 3. Bilateral pulmonary infiltrates which may be seen with atypical pneumonia. Gallbladder Ultrasound 04/25/21 07:53 IMPRESSION: 1. Slightly hyperechoic liver, which can be seen with fatty infiltration or hepatocellular disease. 2. Nonspecific hepatic hypoechoic lesion adjacent to the gallbladder, which may represent fat sparing. Further evaluation with contrast enhanced abdomen MRI should be considered in the adequate clinical setting. 3. Cholelithiasis without evidence of cholecystitis. 4. Right pleural effusion. Chest/Abdomen/Pelvis CT 05/07/21 16:58 IMPRESSION: Patchy bilateral airspace infiltrates. IMPRESSION: 1. Prominent fluid in the small bowel without dilation may reflect an enteritis in the appropriate clinical setting. 2. Small amount of nonspecific fluid in the pelvis. 3. Subcutaneous edema about the pelvis and abdomen, nonspecific. Sinuses CT 05/11/21 13:18 IMPRESSION: 1. No CT evidence for invasive fungal sinusitis. 2. There are a few small air-fluid levels as above which can be related to the supine position and the intubation. Pelvis X-Ray 05/12/21 13:35 IMPRESSION: 1. Right femoral double lumen vascular catheter in place. The tip ending near the superior aspect of the right SI joint. The pelvis is otherwise intact. KUB X-Ray 05/14/21 10:00 IMPRESSION: 1. Moderate gaseous dilatation the colon with retained stool in the right colon. No acute obstructive pattern noted. 2. Enteric tube is noted in the stomach C-Arm Fluoroscopy 05/19/21 10:55 IMPRESSION: Satisfactory positioning of the dialysis catheter via the LEFT jugular vein. Chest X-Ray 05/24/21 05:36 IMPRESSION: 1. Endotracheal tube 2.5 cm above the tracey. 2. PICC line and hemodialysis catheters remain in stable position in the superior vena cava. 3. No significant interval change in the diffuse patchy alveolar opacities. Chest CTA 05/24/21 07:18 IMPRESSION: 1. No pulmonary artery embolism identified. 2. Moderate pulmonary hypoexpansion. 3. Interval increase in bilateral extensive bilateral pulmonary ground-glass opacities. Pneumonitis, including viral pneumonitis, versus atypical edema/ARDS. Clinical correlation is recommended. 4. Small left pleural effusion, slightly increased. 5. Small pericardial effusion, slightly increased. 6. Please see the abdomen/pelvis CT report of the same date for additional findings. Venous Duplex 05/24/21 07:22 IMPRESSION: No evidence of deep vein thrombosis. Abdomen/Pelvis CT 05/24/21 07:49 IMPRESSION: 1. Distended gallbladder. 2. Severe pancreatic atrophy. 3. Please see the CTA chest report of the same date for additional findings. Head CT 05/24/21 08:03 IMPRESSION: No acute intracranial lesion or injury and no change from prior scan. Recent Clincial Data Last Vital Signs Temp 100.4 F H 05/24/21 07:24 Pulse 116 H 05/24/21 13:00 Resp 27 H 05/24/21 14:35 BP 101/60 05/24/21 13:00 Pulse Ox 98 05/24/21 14:35 Vital Signs Temp Pulse Resp BP Pulse Ox 05/24/21 14:35 27 H 98 03/06/22 13:00 116 H 101/60 98 05/24/21 12:30 115 H 110/59 99 05/24/21 12:00 117 H 111/65 100 05/24/21 11:30 109 H 103/66 97 05/24/21 11:27 106 H 20 H 97 05/24/21 11:20 25 H 98 05/24/21 11:00 108 H 99/64 99 05/24/21 10:30 115 H 105/64 96 05/24/21 10:00 117 H 105/63 97 05/24/21 09:45 116 H 109/63 97 05/24/21 09:30 121 H 109/63 95 05/24/21 09:23 21 H 90 05/24/21 09:15 120 H 92/61 89 L 05/24/21 09:00 122 H 102/61 88 L 05/24/21 08:45 123 H 109/61 88 L 05/24/21 08:30 123 H 109/61 91 05/24/21 08:20 125 H 91 05/24/21 07:45 126 H 92 05/24/21 07:37 127 H 21 H 98 05/24/21 07:30 128 H 85/50 98 05/24/21 07:24 100.4 F H 05/24/21 07:15 128 H 99/59 99 05/24/21 07:00 130 H 99/58 98 05/24/21 06:30 134 H 92/56 97 05/24/21 06:15 138 H 76/49 98 05/24/21 06:10 23 H 100 05/24/21 06:00 157 H 21 H 110/68 100 05/24/21 05:45 123 H 23 H 135/80 78 L 05/24/21 05:30 127 H 33 H 130/78 94 05/24/21 05:15 129 H 40 H 128/81 85 L 05/24/21 05:00 132 H 46 H 128/81 88 L 05/24/21 04:45 130 H 42 H 142/79 89 L 05/24/21 04:30 132 H 50 H 135/74 89 L 05/24/21 04:15 130 H 44 H 125/81 89 L 05/24/21 04:00 99.0 F 126 H 40 H 136/81 90 05/24/21 03:56 124 H 40 H 136/81 91 05/24/21 03:55 126 H 05/24/21 03:30 97 F L 119 H 42 H 127/73 97 05/24/21 03:15 128 H 60 H 05/24/21 03:00 125 H 49 H Intake & Output/Weight 05/22/21 05/23/21 05/24/21 05/25/21 06:59 06:59 06:59 06:59 Intake Total 3161.60 / 3161.60 1960.00 / 1960.00 2482.5 / 2482.5 Output Total 1275 / 1275 1000 / 1000 2600 / 2600 600 / 600 Balance 1886.60 / 1886.60 960.00 / 960.00 -117.5 / -117.5 -600 / -600 Weight 63.531 kg 59.874 kg 56.155 kg Vitals Last Vital Signs Temp 100.4 F H 05/24/21 07:24 Pulse 116 H 05/24/21 13:00 Resp 27 H 05/24/21 14:35 BP 101/60 05/24/21 13:00 Pulse Ox 98 05/24/21 14:35 TS Medications Medications Acetaminophen (Acetaminophen 325 Mg Tablet) 650 mg PO Q6H PRN PRN Reason: Mild/Mod Pain Or Temp >/= 101 Last Admin: 05/22/21 14:52 Dose: 650 mg Documented by: Albuterol/Ipratropium (Ipratropium-Albuterol 3 Ml Neb) 3 ml INHALATION Q4H.RESPIRATORY ANNIE Last Admin: 05/24/21 11:25 Dose: 3 ml Documented by: Citalopram Hydrobromide (Citalopram 20 Mg Tablet) 10 mg PO DAILY ANNIE Last Admin: 05/24/21 09:07 Dose: 10 mg Documented by: Clonazepam (Clonazepam 0.5 Mg Tablet) 0.5 mg PO BID PRN PRN Reason: ANXIETY Last Admin: 05/24/21 01:01 Dose: 0.5 mg Documented by: Dextrose (Dextrose 50% Syringe 50 Ml) 25 ml IVP ONCE PRN; Protocol PRN Reason: hypoglycemia protocol Last Admin: 04/20/21 00:25 Dose: 25 ml Documented by: Dextrose (Dextrose 50% Syringe 50 Ml) 50 ml IVP PRN PRN; Protocol PRN Reason: hypoglycemia protocol Last Admin: 04/19/21 20:35 Dose: 50 ml Documented by: Dextrose (Dextrose 50% Syringe 50 Ml) 25 ml IVP ONCE PRN; Protocol PRN Reason: hypoglycemia protocol Dextrose (Dextrose 50% Syringe 50 Ml) 50 ml IVP PRN PRN; Protocol PRN Reason: hypoglycemia protocol Dextrose (Dextrose 50% Syringe 50 Ml) 25 ml IVP ONCE PRN; Protocol PRN Reason: hypoglycemia protocol Dextrose (Dextrose 50% Syringe 50 Ml) 50 ml IVP PRN PRN; Protocol PRN Reason: hypoglycemia protocol Epoetin Shubham (Epoetin Shubham 1000 Unit/0.05 Ml (Esrd)) 6,000 unit SUBCUT MoWeFr [facility] Last Admin: 05/22/21 08:57 Dose: 6,000 unit Documented by: Ergocalciferol (Ergocalciferol (Vitamin D2) 50,000 Unit Capsule) 50,000 unit PO Q7D [facility] Last Admin: 05/19/21 17:17 Dose: 50,000 unit Documented by: Fenofibrate (Fenofibrate 145 Mg Tablet) 145 mg PO DAILY [facility] Last Admin: 05/24/21 09:08 Dose: 145 mg Documented by: Fluconazole (Fluconazole 100 Mg Tablet) 200 mg PO DAILY [facility] Last Admin: 05/24/21 09:08 Dose: 200 mg Documented by: Gemfibrozil (Gemfibrozil 600 Mg Tablet) 600 mg PO BID@0800,1800 [facility] Last Admin: 05/24/21 09:07 Dose: 600 mg Documented by: Glucagon (Glucagon 1 Mg/Ml Inj 1 Ml) 1 mg IM ONCE PRN; Protocol PRN Reason: Adult Acute Hypoglycemia Prot. Glucagon (Glucagon 1 Mg/Ml Inj 1 Ml) 1 mg IM ONCE PRN; Protocol PRN Reason: Adult Acute Hypoglycemia Prot. Heparin Sodium (Porcine) (Heparin 5,000 Unit/Ml Inj 1 Ml) 0 unit IV PRN PRN; Protocol PRN Reason: Heparin weight-base protocol Dextrose (D5w) 500 mls @ 100 mls/hr IV ONCE PRN; Protocol PRN Reason: Adult Acute Hypoglycemia Prot Albumin Human (Albumin) 12.5 gm in 50 mls @ 60 mls/hr IV PRN PRN PRN Reason: Hypotension and/or symptomatic Sodium Chloride (Sodium Chloride 0.9%) 1,000 mls @ 0 mls/hr IV .Q0M PRN PRN Reason: hypotension or symptomatic Dextrose (D5w) 500 mls @ 100 mls/hr IV ONCE PRN; Protocol PRN Reason: Adult Acute Hypoglycemia Prot Propofol (Diprivan) 1,000 mg in 100 mls @ 0 mls/hr IV .Q0M [facility]; Protocol Last Admin: 05/24/21 06:06 Dose: 10 mcg/kg/min, 3.72 mls/hr Documented by: Fentanyl 2,500 mcg/ Sodium (Chloride) 250 mls @ 0 mls/hr IV .Q0M [facility]; Protocol Last Admin: 05/24/21 06:06 Dose: 50 mcg/hr, 5 mls/hr Documented by: Norepinephrine Bitartrate 4 mg (/ Dextrose) 254 mls @ 0 mls/hr IV .Q0M [facility]; Protocol Last Admin: 05/24/21 06:24 Dose: 2 mcg/min, 7.62 mls/hr Documented by: Heparin Sodium/Sodium Chloride (Heparin Drip) 25,000 unit in 500 mls @ 0 mls/hr IV .Q0M [facility]; Protocol Vancomycin/PEG/NADA/Lysine/Water (Vancocin) 1,500 mg in 300 mls @ 200 mls/hr IV Q24H [facility] Last Admin: 05/24/21 09:03 Dose: 200 mls/hr Documented by: Piperacillin Sod/Tazobactam (Sod 3.375 gm/ Sodium Chloride) 50 mls @ 12.5 mls/hr IV Q8H [facility] Last Admin: 05/24/21 09:09 Dose: 12.5 mls/hr Documented by: Dextrose/Sodium Chloride (Dextrose 5%-Sod Chloride 0.9%) 1,000 mls @ 50 mls/hr IV .Q20H [facility] Last Admin: 05/24/21 12:53 Dose: 50 mls/hr Documented by: Insulin Detemir (Insulin Detemir 100 Units/1 Ml) 5 unit SUBCUT Q12H [facility] Last Admin: 05/24/21 10:09 Dose: 5 unit Documented by: Insulin Human Lispro (Insulin Lispro 100 Unit/1 Ml) 0 unit SUBCUT TIDWM [facility]; Protocol Last Admin: 05/24/21 12:00 Dose: Not Given Documented by: Lactulose (Lactulose Oral Liq 20 Gm/30 Ml Udc) 10 gm PO DAILY PRN PRN Reason: CONSTIPATION Last Admin: 05/18/21 07:58 Dose: 10 gm Documented by: Lanolin (Lanolin Oint 7 Gm) 1 applic TOPICAL PRN PRN PRN Reason: DRYNESS Last Admin: 05/13/21 17:56 Dose: 1 appful Documented by: Magnesium Hydroxide (Magnesium Hydroxide 30 Ml Udc) 30 ml PO DAILY PRN PRN Reason: CONSTIPATION Metoprolol Tartrate (Metoprolol Tartrate 25 Mg Tablet) 25 mg PO BID@0900,2100 [facility] Last Admin: 05/24/21 09:10 Dose: 25 mg Documented by: Morphine Sulfate (Morphine 4 Mg/Ml Sdv 1 Ml) 1 mg IVP Q4H PRN PRN Reason: PAIN Last Admin: 05/24/21 05:08 Dose: 1 mg Documented by: Multivitamins Therapeutic (Multivitamin Therapeutic Tablet) 1 tab PO DAILY [facility] Last Admin: 05/24/21 09:08 Dose: 1 tab Documented by: Naloxone HCl (Naloxone 0.4 Mg/Ml Sdv) 0.1 mg IVP Q2M PRN PRN Reason: OPIATERV Nystatin (Nystatin 100,000 Unit/Ml Udc 5 Ml) 100,000 unit PO QID [facility] Last Admin: 05/24/21 12:09 Dose: 100,000 unit Documented by: Ondansetron HCl (Ondansetron 2 Mg/Ml Sdv 2 Ml) 4 mg IVP Q8H PRN PRN Reason: vomiting, or N/V if npo Last Admin: 05/06/21 11:14 Dose: 4 mg Documented by: Prednisone (Prednisone 20 Mg Tablet) 20 mg PO DAILY [facility] Last Admin: 05/24/21 09:09 Dose: 20 mg Documented by: Senna/Docusate Sodium (Sennosides-Docusate Tablet) 2 tab PO DAILY [facility] Last Admin: 05/24/21 09:09 Dose: 2 tab Documented by: Discontinued Medications Acetylcysteine (Acetylcysteine 200 Mg/Ml Sdv 4 Ml) 200 mg INHALATION Q4H.RE SPIRATORY [facility] Last Admin: 05/15/21 11:32 Dose: 200 mg Documented by: Acetylcysteine (Acetylcysteine 200 Mg/Ml Sdv 4 Ml) 200 mg INHALATION Q12H [facility] Last Admin: 05/19/21 03:34 Dose: 200 mg Documented by: Albuterol/Ipratropium (Ipratropium-Albuterol 3 Ml Neb) 3 ml INHALATION Q6H.RESPIRATORY [facility] Last Admin: 04/25/21 09:06 Dose: 3 ml Documented by: Alprazolam (Alprazolam 0.5 Mg Tablet) 0.5 mg PO TID PRN PRN Reason: ANXIETY Alprazolam (Alprazolam 0.5 Mg Tablet) 0.5 mg PO TID [facility] Last Admin: 05/18/21 15:40 Dose: 0.5 mg Documented by: Alteplase, Recombinant (Alteplase 1 Mg/Ml Sdv 2 Ml) 2 mg INTRACATH ONCE ONE Stop: 04/26/21 08:37 Last Admin: 04/26/21 08:53 Dose: 2 mg Documented by: Amoxicillin/Clavulanate Potassium (Amoxicillin-Clav 875-125 Mg Tablet) 1 tab PO BID [facility]; Protocol Last Admin: 05/05/21 18:43 Dose: Not Given Documented by: Apixaban (Apixaban 5 Mg Tablet) 2.5 mg PO BID@0900,2100 [facility] Last Admin: 05/04/21 19:24 Dose: Not Given Documented by: Apixaban (Apixaban 5 Mg Tablet) 2.5 mg PO BID@0900,2100 [facility] Last Admin: 05/17/21 08:14 Dose: 2.5 mg Documented by: Apixaban (Apixaban 5 Mg Tablet) 2.5 mg PO BID@0900,2100 [facility] Last Admin: 05/23/21 20:47 Dose: 2.5 mg Documented by: Atorvastatin Calcium (Atorvastatin 40 Mg Tablet) 80 mg PO Q24H [facility] Last Admin: 05/22/21 08:39 Dose: 80 mg Documented by: Atorvastatin Calcium (Atorvastatin 40 Mg Tablet) 10 mg PO Q24H [facility] Calcium Carbonate (Calcium Carbonate 500 Mg Chew Tablet) 1,000 mg PO TID [facility] Last Admin: 05/18/21 08:02 Dose: 1,000 mg Documented by: Clonazepam (Clonazepam 0.5 Mg Tablet) 0.5 mg PO ONCE ONE Stop: 05/23/21 02:35 Last Admin: 05/23/21 02:58 Dose: 0.5 mg Documented by: Cyanocobalamin (Cyanocobalamin 1,000 Mcg/Ml Sdv) 1,000 mcg IM DAILY [facility] Stop: 05/12/21 15:39 Last Admin: 05/12/21 09:12 Dose: 1,000 mcg Documented by: Dexamethasone (Dexamethasone 10 Mg/Ml Inj) 6 mg IVP Q24H [facility] Last Admin: 04/29/21 11:20 Dose: 6 mg Documented by: Epoetin Shubham (Epoetin Shubham 10,000 Unit/Ml Inj) 10,000 unit SUBCUT NOW ONE Stop: 04/22/21 07:15 Last Admin: 04/22/21 09:06 Dose: 10,000 unit Documented by: Epoetin Shubham (Epoetin Shubham 1000 Unit/0.05 Ml (Esrd)) 6,000 unit SUBCUT DIALYSIS [facility] Last Admin: 05/05/21 15:48 Dose: 6,000 unit Documented by: Epoetin Shubham (Epoetin Shubham 1000 Unit/0.05 Ml (Esrd)) 6,000 unit SUBCUT EVERY OTHER DAY [facility] Last Admin: 05/08/21 12:15 Dose: 6,000 unit Documented by: Etomidate (Etomidate 2 Mg/Ml Inj) 20 mg IVP NOW ONE Stop: 04/21/21 00:54 Last Admin: 04/21/21 01:05 Dose: 20 mg Documented by: Etomidate (Etomidate 2 Mg/Ml Inj) 20 mg IVP NOW ONE Stop: 05/06/21 11:20 Last Admin: 05/06/21 15:40 Dose: 20 mg Documented by: Etomidate (Etomidate 2 Mg/Ml Inj) 20 mg IVP NOW ONE Stop: 05/24/21 05:36 Last Admin: 05/24/21 05:40 Dose: 20 mg Documented by: Famotidine (Famotidine 20 Mg/2 Ml Inj) 20 mg IVP Q12H [facility] Last Admin: 05/22/21 02:27 Dose: 20 mg Documented by: Fentanyl (Fentanyl 50 Mcg/Ml Inj 2ml) 50 mcg IVP ONCE ONE Stop: 05/06/21 11:23 Last Admin: 05/06/21 15:41 Dose: 50 mcg Documented by: Fentanyl (Fentanyl 50 Mcg/Ml Inj 2ml) Confirm Administered Dose 100 mcg .ROUTE .STK-MED ONE Stop: 05/19/21 12:44 Furosemide (Furosemide 10 Mg/Ml Sdv 10ml) 60 mg IVP ONCE ONE Stop: 04/23/21 07:46 Last Admin: 04/23/21 09:08 Dose: 60 mg Documented by: Furosemide (Furosemide 10 Mg/Ml Sdv 2ml) 20 mg IVP ONCE ONE Stop: 05/05/21 08:08 Last Admin: 05/05/21 09:06 Dose: 20 mg Documented by: Furosemide (Furosemide 10 Mg/Ml Sdv 10ml) 60 mg IVP ONCE ONE Stop: 05/05/21 20:48 Last Admin: 05/05/21 21:11 Dose: 60 mg Documented by: Furosemide (Furosemide 10 Mg/Ml Sdv 10ml) 60 mg IVP ONCE ONE Stop: 05/06/21 07:12 Last Admin: 05/06/21 07:55 Dose: 60 mg Documented by: Furosemide (Furosemide 10 Mg/Ml Sdv 10ml) 80 mg IVP ONCE ONE Stop: 05/11/21 09:31 Last Admin: 05/11/21 09:51 Dose: 80 mg Documented by: Furosemide (Furosemide 10 Mg/Ml Sdv 10ml) 60 mg IVP ONCE ONE Stop: 05/20/21 08:45 Last Admin: 05/20/21 10:15 Dose: 60 mg Documented by: Furosemide (Furosemide 10 Mg/Ml Sdv 2ml) 20 mg IVP ONCE ONE Stop: 05/21/21 20:01 Last Admin: 05/21/21 20:50 Dose: 20 mg Documented by: Furosemide (Furosemide 10 Mg/Ml Sdv 4ml) 40 mg IVP ONCE ONE Stop: 05/24/21 06:53 Last Admin: 05/24/21 07:15 Dose: 40 mg Documented by: Furosemide (Furosemide 10 Mg/Ml Sdv 4ml) 40 mg IVP ONCE ONE Stop: 05/24/21 10:01 Last Admin: 05/24/21 10:00 Dose: 40 mg Documented by: Gemfibrozil (Gemfibrozil 600 Mg Tablet) 600 mg PO BID [facility] Last Admin: 05/23/21 08:02 Dose: 600 mg Documented by: Heparin Sodium (Porcine) (Heparin 5,000 Unit/Ml Inj 1 Ml) 5,000 unit SUBCUT Q12H [facility] Last Admin: 05/04/21 03:09 Dose: 5,000 unit Documented by: Heparin Sodium (Porcine) (Heparin, Porcine 1,000 Unit/Ml Inj 10 Ml) 0 unit HE ONCE ONE Stop: 04/20/21 10:31 Last Admin: 04/20/21 19:44 Dose: 10,000 unit Documented by: Heparin Sodium (Porcine) (Heparin 5,000 Unit/Ml Inj 1 Ml) 2,500 unit IVP ONCE ONE Stop: 04/20/21 21:13 Last Admin: 04/20/21 21:00 Dose: 2,500 unit Documented by: Heparin Sodium (Porcine) (Heparin 5,000 Unit/Ml Inj 1 Ml) 0 unit IV PRN PRN; Protocol PRN Reason: Heparin weight-base protocol Last Admin: 04/28/21 11:42 Dose: 3,100 unit Documented by: Heparin Sodium (Porcine) (Heparin, Porcine 1,000 Unit/Ml Inj 10 Ml) 0 unit HE O NCE ONE Stop: 04/24/21 18:46 Last Admin: 04/24/21 19:38 Dose: 4,500 unit Documented by: Heparin Sodium (Porcine) (Heparin, Porcine 1,000 Unit/Ml Inj 10 Ml) 0 unit HE ONCE ONE Stop: 04/27/21 08:01 Last Admin: 04/27/21 10:22 Dose: 10,000 unit Documented by: Heparin Sodium (Porcine) (Heparin, Porcine 1,000 Unit/Ml Inj 10 Ml) 10,000 unit HE ONCE ONE Stop: 05/01/21 10:46 Last Admin: 05/01/21 11:57 Dose: 10,000 unit Documented by: Heparin Sodium (Porcine) (Heparin, Porcine 1,000 Unit/Ml Inj 10 Ml) 10,000 unit HE ONCE ONE Stop: 05/05/21 13:01 Last Admin: 05/06/21 17:08 Dose: 10,000 unit Documented by: Heparin Sodium (Porcine) (Heparin 5,000 Unit/Ml Inj 1 Ml) 0 unit IV PRN PRN; Protocol PRN Reason: Heparin weight-base protocol Stop: 05/11/21 10:00 Last Admin: 05/10/21 15:24 Dose: 3,050 unit Documented by: Heparin Sodium (Porcine) (Heparin 5,000 Unit/Ml Inj 1 Ml) 5,000 unit SUBCUT ONCE ONE Stop: 05/06/21 00:53 Last Admin: 05/06/21 01:25 Dose: 5,000 unit Documented by: Heparin Sodium (Porcine) (Heparin 5,000 Unit/Ml Inj 1 Ml) 1,200 unit IVP ONCE ONE Stop: 05/11/21 04:19 Last Admin: 05/11/21 04:35 Dose: 1,200 unit Documented by: Heparin Sodium (Porcine) (Heparin, Porcine 1,000 Unit/Ml Inj 10 Ml) 10,000 unit HE ONCE ONE Stop: 05/12/21 20:19 Last Admin: 05/12/21 21:50 Dose: 10,000 unit Documented by: Heparin Sodium (Porcine) (Heparin 5,000 Unit/Ml Inj 1 Ml) 0 unit IV PRN PRN; Protocol PRN Reason: Heparin weight-base protocol Last Admin: 05/14/21 16:23 Dose: 2,360 unit Documented by: Heparin Sodium (Porcine) (Heparin, Porcine 1,000 Unit/Ml Inj 10 Ml) 10,000 unit HE ONCE ONE Stop: 05/13/21 16:10 Last Admin: 05/13/21 16:25 Dose: 10,000 unit Documented by: Heparin Sodium (Porcine) (Heparin, Porcine 1,000 Unit/Ml Inj 10 Ml) 10,000 unit HE ONCE ONE Stop: 05/15/21 13:31 Last Admin: 05/15/21 14:22 Dose: 10,000 unit Documented by: Heparin Sodium (Porcine) (Heparin, Porcine 1,000 Unit/Ml Inj 10 Ml) 1,000 unit IV ONCE ONE Stop: 05/17/21 09:20 Last Admin: 05/17/21 16:08 Dose: 1,000 unit Documented by: Heparin Sodium (Porcine) (Heparin, Porcine 1,000 Unit/Ml Inj 10 Ml) 10,000 unit IRRIGATION ONCE ONE Stop: 05/19/21 11:03 Last Admin: 05/19/21 13:52 Dose: 10,000 unit Documented by: Heparin Sodium (Porcine) (Heparin, Porcine 1,000 Unit/Ml Inj 10 Ml) 0 unit HE ONCE ONE Stop: 05/21/21 08:01 Last Admin: 05/21/21 08:05 Dose: 10,000 unit Documented by: Heparin Sodium (Porcine) (Heparin 5,000 Unit/Ml Inj 1 Ml) 5,000 unit SUBCUT ONCE ONE Stop: 05/21/21 18:18 Last Admin: 05/21/21 18:36 Dose: 5,000 unit Documented by: Hydralazine HCl (Hydralazine 20 Mg/Ml Inj 1 Ml) 10 mg IVP Q4H [facility]IE Last Admin: 04/20/21 10:10 Dose: Not Given Documented by: Sodium Chloride (Sodium Chloride 0.9%) 1,000 mls @ 999 mls/hr IV .Q1H1M ONE Stop: 04/18/21 23:05 Last Admin: 04/18/21 22:19 Dose: 999 mls/hr Documented by: Piperacillin Sod/Tazobactam (Sod 3.375 gm/ Sodium Chloride) 50 mls @ 100 mls/hr IV ONCE ONE; Protocol Stop: 04/18/21 23:38 Last Admin: 04/19/21 00:00 Dose: 100 mls/hr Documented by: Sodium Chloride (Sodium Chloride 0.9%) 1,500 mls @ 999 mls/hr IV .Q1H31M ONE Stop: 04/19/21 00:39 Last Admin: 04/19/21 00:00 Dose: 999 mls/hr Documented by: Dextrose (D5w) 500 mls @ 100 mls/hr IV ONCE PRN; Protocol PRN Reason: Adult Acute Hypoglycemia Prot Last Infusion: 04/20/21 18:12 Dose: Infused Documented by: Insulin Human Regular 250 unit (/ Sodium Chloride) 252.5 mls @ 0 mls/hr IV .Q0M [facility]; Protocol Last Titration: 04/29/21 09:43 Dose: Infused Documented by: Potassium Chloride/Dextrose/Sod Cl (D5-Ns 0.45% + Kcl 20 Meq) 20 meq in 1,000 mls @ 125 mls/hr IV .Q8H [facility] Last Infusion: 04/20/21 16:35 Dose: Infused Documented by: Piperacillin Sod/Tazobactam (Sod 3.375 gm/ Sodium Chloride) 50 mls @ 12.5 mls/hr IV Q12H [facility]; Protocol Last Infusion: 04/25/21 17:05 Dose: Infused Documented by: Vancomycin HCl 1,000 mg/ (Sodium Chloride) 250 mls @ 250 mls/hr IV ONCE ONE Stop: 04/19/21 04:59 Last Admin: 04/19/21 04:36 Dose: 250 mls/hr Documented by: Sodium Bicarbonate 150 meq/ (Dextrose) 1,150 mls @ 125 mls/hr IV .Q9H12M [facility] Last Infusion: 04/20/21 16:36 Dose: Infused Documented by: calcium gluconate 0.9% NaCL (Calcium Gluconate 0.9% Nacl) 1 gm in 50 mls @ 100 mls/hr IV Q30MIN [facility] Stop: 04/20/21 09:29 Last Infusion: 04/20/21 06:50 Dose: Infused Documented by: Dextrose/Sodium Chloride (Dextrose 5%-Sod Chloride 0.45%) 1,000 mls @ 200 mls/hr IV .Q5H [facility] Last Admin: 04/23/21 03:14 Dose: Not Given Documented by: Magnesium Sulfate (Magnesium Sulfate Premix) 4 gm in 100 mls @ 50 mls/hr IV ONCE ONE Stop: 04/20/21 07:52 Last Infusion: 04/20/21 16:35 Dose: Infused Documented by: Albumin Human (Albumin) 12.5 gm in 50 mls @ 60 mls/hr IV PRN PRN PRN Reason: Hypotension and/or symptomatic calcium gluconate 0.9% NaCL (Calcium Gluconate 0.9% Nacl) 1 gm in 50 mls @ 50 mls/hr IV ONCE ONE Stop: 04/20/21 08:53 Last Infusion: 04/20/21 12:00 Dose: Infused Documented by: Norepinephrine Bitartrate 4 mg (/ Dextrose) 254 mls @ 0 mls/hr IV .Q0M [facility]; Protocol Last Titration: 04/21/21 22:00 Dose: Infused Documented by: Remdesivir 100 mg/ Sodium (Chloride) 100 mls @ 100 mls/hr IV Q24H [facility] Stop: 04/24/21 06:59 Last Infusion: 04/24/21 10:03 Dose: Infused Documented by: Remdesivir 200 mg/ Sodium (Chloride) 60 mls @ 100 mls/hr IV ONCE ONE Stop: 04/20/21 11:35 Last Infusion: 04/20/21 18:14 Dose: Infused Documented by: Norepinephrine Bitartrate 4 mg (/ Dextrose) 254 mls @ 0 mls/hr IV .Q0M [facility]; Protocol Last Admin: 05/01/21 09:39 Dose: 1.97 mcg/min, 7.5 mls/hr Documented by: Heparin Sodium/Sodium Chloride (Heparin Drip) 25,000 unit in 500 mls @ 0 mls/hr IV .Q0M [facility]; Protocol Last Titration: 04/29/21 14:21 Dose: Infused Documented by: dexmedeTOMIDine 0.9 % NaCL (Precedex) 400 mcg in 100 mls @ 0 mls/hr IV .Q0M [facility]; Protocol Last Titration: 05/03/21 19:52 Dose: Infused Documented by: Albumin Human (Albumin) 12.5 gm in 50 mls @ 60 mls/hr IV PRN PRN PRN Reason: Hypotension and/or symptomatic Propofol (Diprivan) 1,000 mg in 100 mls @ 0 mls/hr IV .Q0M [facility]; Protocol Last Titration: 04/27/21 05:29 Dose: Infused Documented by: Fentanyl 2,500 mcg/ Sodium (Chloride) 250 mls @ 0 mls/hr IV .Q0M [facility]; Protocol Last Admin: 04/24/21 17:48 Dose: 50 mcg/hr, 5 mls/hr Documented by: Midazolam HCl 100 mg/ Sodium (Chloride) 100 mls @ 0 mls/hr IV .Q0M [facility]; Protocol Last Titration: 04/22/21 05:15 Dose: Infused Documented by: Etomidate (Amidate) Confirm Administered Dose 10 mls @ as directed .ROUTE .STK- MED ONE Stop: 04/21/21 00:49 calcium gluconate 0.9% NaCL (Calcium Gluconate 0.9% Nacl) 1 gm in 50 mls @ 50 mls/hr IV ONCE ONE Stop: 04/21/21 08:39 Last Infusion: 04/21/21 10:14 Dose: Infused Documented by: calcium gluconate 0.9% NaCL (Calcium Gluconate 0.9% Nacl) 1 gm in 50 mls @ 100 mls/hr IV Q30MIN [facility] Stop: 04/23/21 07:44 Albumin Human (Albumin) 12.5 gm in 250 mls @ 300 mls/hr IV ONCE ONE Stop: 04/22/21 14:49 Last Admin: 04/22/21 15:12 Dose: 300 mls/hr Documented by: Albumin Human (Albumin) 12.5 gm in 50 mls @ 60 mls/hr IV PRN PRN PRN Reason: Hypotension and/or symptomatic Last Infusion: 05/08/21 05:26 Dose: Infused Documented by: Ferric Sodium Gluconate 125 mg (/ Sodium Chloride) 110 mls @ 110 mls/hr IV Q24H [facility] Stop: 04/27/21 09:29 Last Infusion: 04/27/21 10:01 Dose: Infused Documented by: Sodium Chloride (Sodium Chloride 0.9% (100 Ml)) Confirm Administered Dose 100 mls @ as directed .ROUTE .STK-MED ONE Stop: 04/23/21 21:39 Last Infusion: 04/24/21 00:15 Dose: Infused Documented by: Fentanyl 2,500 mcg/ Sodium (Chloride) 250 mls @ 0 mls/hr IV .Q0M [facility]; Protocol Last Titration: 04/29/21 16:44 Dose: 0 mcg/hr, 0 mls/hr Documented by: Midazolam HCl 100 mg/ Sodium (Chloride) 100 mls @ 0 mls/hr IV .Q0M [facility]; Protocol Last Titration: 04/28/21 05:50 Dose: 0 mg/hr, 0 mls/hr Documented by: Imipenem/Cilastatin Sodium 250 (mg/ Sodium Chloride) 100 mls @ 200 mls/hr IV Q12H [facility]; Protocol Last Infusion: 05/03/21 02:15 Dose: Infused Documented by: Sodium Bicarbonate 150 meq/ (Dextrose) 1,150 mls @ 100 mls/hr IV .[id number] [facility] Last Infusion: 04/27/21 10:01 Dose: Infused Documented by: Dextrose (D5w) 1,000 mls @ 50 mls/hr IV .Q20H [facility] Last Infusion: 04/29/21 09:47 Dose: Infused Documented by: Potassium Chloride (K-Albino Premix) 100 mls @ 50 mls/hr IV ONCE ONE Stop: 04/30/21 14:14 Last Infusion: 04/30/21 15:08 Dose: Infused Documented by: Sodium Chloride (Sodium Chloride 0.9%) 1,000 mls @ 75 mls/hr IV .[id number] [facility] Last Infusion: 05/04/21 19:24 Dose: Infused Documented by: Fluconazole (Diflucan Premix) 200 mg in 100 mls @ 100 mls/hr IV ONCE ONE Stop: 05/04/21 10:29 Last Infusion: 05/04/21 19:24 Dose: Infused Documented by: Cefazolin Sodium 2,000 mg/ (Sodium Chloride) 60 mls @ 100 mls/hr IV ONCE ONE Stop: 05/05/21 17:35 Last Admin: 05/05/21 18:44 Dose: 100 mls/hr Documented by: Heparin Sodium/Sodium Chloride (Heparin Drip) 25,000 unit in 500 mls @ 0 mls/hr IV .Q0M [facility]; Protocol Last Titration: 05/12/21 23:44 Dose: Infused Documented by: Acetaminophen (Acetaminophen) 1,000 mg in 100 mls @ 400 mls/hr IV ONCE ONE Stop: 05/05/21 21:02 Last Admin: 05/05/21 21:11 Dose: 400 mls/hr Documented by: Vancomycin HCl 1,000 mg/ (Sodium Chloride) 250 mls @ 250 mls/hr IV ONCE ONE; Protocol Stop: 05/05/21 22:59 Last Admin: 05/06/21 03:08 Dose: Not Given Documented by: Imipenem/Cilastatin Sodium 250 (mg/ Sodium Chloride) 100 mls @ 200 mls/hr IV Q6H [facility]; Protocol Last Infusion: 05/05/21 23:18 Dose: Infused Documented by: Imipenem/Cilastatin Sodium 250 (mg/ Sodium Chloride) 100 mls @ 200 mls/hr IV Q12H [facility]; Protocol Last Infusion: 05/09/21 01:57 Dose: Infused Documented by: Vancomycin HCl 1,000 mg/ (Sodium Chloride) 250 mls @ 250 mls/hr IV ONCE ONE Stop: 05/06/21 03:59 Last Infusion: 05/06/21 18:20 Dose: Infused Documented by: Furosemide 100 mg/ Sodium (Chloride) 50 mls @ 0 mls/hr IV .Q0M [facility]; Protocol Last Titration: 05/08/21 07:48 Dose: Infused Documented by: dexmedeTOMIDine 0.9 % NaCL (Precedex) 400 mcg in 100 mls @ 0 mls/hr IV .Q0M [facility]; Protocol Dexmedetomidine HCl 1,000 mcg/ (Sodium Chloride) 260 mls @ 0 mls/hr IV .Q0M [facility]; Protocol Last Titration: 05/09/21 15:00 Dose: 1 mcg/kg/hr, 18.29 mls/hr Documented by: Fentanyl 2,500 mcg/ Sodium (Chloride) 250 mls @ 0 mls/hr IV .Q0M [facility]; Protocol Last Titration: 05/14/21 12:14 Dose: 75 mcg/hr, 7.5 mls/hr Documented by: Midazolam HCl 100 mg/ Sodium (Chloride) 100 mls @ 0 mls/hr IV .Q0M [facility]; Protocol Last Titration: 05/07/21 18:35 Dose: Infused Documented by: Albumin Human (Albumin) 12.5 gm in 50 mls @ 60 mls/hr IV PRN PRN PRN Reason: Hypotension and/or symptomatic Norepinephrine Bitartrate 8 mg (/ Dextrose) 508 mls @ 0 mls/hr IV .Q0M [facility]; Protocol Last Titration: 05/19/21 19:09 Dose: Infused Documented by: Caspofungin 70 mg/ Sodium (Chloride) 250 mls @ 250 mls/hr IV ONCE ONE Stop: 05/06/21 17:49 Last Infusion: 05/06/21 23:00 Dose: Infused Documented by: Caspofungin 50 mg/ Sodium (Chloride) 250 mls @ 250 mls/hr IV Q24H [facility] Last Infusion: 05/10/21 19:55 Dose: Infused Documented by: Vancomycin HCl 750 mg/ Sodium (Chloride) 250 mls @ 250 mls/hr IV DIALYSIS [facility] Last Infusion: 05/07/21 18:18 Dose: Infused Documented by: Albumin Human (Albumin) 12.5 gm in 50 mls @ 60 mls/hr IV PRN PRN PRN Reason: Hypotension and/or symptomatic Magnesium Sulfate (Magnesium Sulfate Premix) 4 gm in 100 mls @ 50 mls/hr IV ONCE ONE Stop: 05/08/21 08:30 Last Infusion: 05/08/21 09:28 Dose: Infused Documented by: Albumin Human (Albumin) 12.5 gm in 50 mls @ 60 mls/hr IV PRN PRN PRN Reason: Hypotension and/or symptomatic Albumin Human (Albumin) 25 gm in 100 mls @ 60 mls/hr IV Q8H [facility] Stop: 05/09/21 04:39 Last Infusion: 05/09/21 05:52 Dose: Infused Documented by: Vancomycin HCl 500 mg/ Sodium (Chloride) 100 mls @ 200 mls/hr IV DIALYSIS [facility] Last Infusion: 05/09/21 18:45 Dose: Infused Documented by: Imipenem/Cilastatin Sodium 250 (mg/ Sodium Chloride) 100 mls @ 200 mls/hr IV Q12H [facility]; Protocol Last Infusion: 05/11/21 01:48 Dose: Infused Documented by: dexmedeTOMIDine 0.9 % NaCL (Precedex) 400 mcg in 100 mls @ 0 mls/hr IV PRN PRN PRN Reason: SEDATION Last Admin: 05/21/21 22:30 Dose: 4.2 mls/hr Documented by: Acetaminophen (Acetaminophen) 1,000 mg in 100 mls @ 400 mls/hr IV ONCE ONE Stop: 05/10/21 08:56 Last Infusion: 05/10/21 19:55 Dose: Infused Documented by: Potassium Phosphate 30 meq/ (Sodium Chloride) 109.0909 mls @ 27.25 mls/hr IV ONCE ONE Stop: 05/10/21 14:30 Last Infusion: 05/10/21 19:55 Dose: Infused Documented by: Amphotericin B 300 mg/ (Dextrose) 275 mls @ 137.5 mls/hr IV Q24H [facility] Last Admin: 05/13/21 16:02 Dose: 137.5 mls/hr Documented by: Piperacillin Sod/Tazobactam (Sod 3.375 gm/ Sodium Chloride) 50 mls @ 6.25 mls/hr IV Q12H [facility]; Protocol Last Admin: 05/12/21 22:52 Dose: 6.25 mls/hr Documented by: Albumin Human (Albumin) 25 gm in 100 mls @ 60 mls/hr IV Q8H [facility] Stop: 05/12/21 09:29 Last Infusion: 05/12/21 06:29 Dose: Infused Documented by: Potassium Phosphate 10 mmol/ (Sodium Chloride) 103.3333 mls @ 47 mls/hr IV ONCE ONE Stop: 05/12/21 10:41 Last Admin: 05/12/21 09:14 Dose: 47 mls/hr Documented by: Albumin Human (Albumin) 12.5 gm in 50 mls @ 60 mls/hr IV PRN PRN PRN Reason: Hypotension and/or symptomatic Albumin Human (Albumin) 12.5 gm in 50 mls @ 60 mls/hr IV PRN PRN PRN Reason: Hypotension and/or symptomatic Heparin Sodium/Sodium Chloride (Heparin Drip) 25,000 unit in 500 mls @ 0 mls/hr IV .Q0M [facility]; Protocol Last Titration: 05/14/21 11:23 Dose: 15.1 unit/kg/hr, 20 mls/hr Documented by: Potassium Phosphate 15 mmol/ (Sodium Chloride) 105 mls @ 47 mls/hr IV ONCE ONE Stop: 05/14/21 09:55 Last Admin: 05/14/21 08:45 Dose: 47 mls/hr Documented by: Amphotericin B 300 mg/ (Dextrose) 325 mls @ 162.5 mls/hr IV ONCE ONE Stop: 05/14/21 15:59 Last Admin: 05/14/21 14:04 Dose: 162.5 mls/hr Documented by: Amphotericin B 300 mg/ (Dextrose) 300 mls @ 300 mls/hr IV Q24H [facility] Last Admin: 05/18/21 20:08 Dose: Not Given Documented by: Potassium Phosphate 30 mmol/ (Sodium Chloride) 110 mls @ 25 mls/hr IV ONCE ONE Stop: 05/16/21 18:23 Last Infusion: 05/16/21 18:18 Dose: Infused Documented by: Potassium Chloride (K-Albino Premix) 100 mls @ 50 mls/hr IV ONCE ONE Stop: 05/18/21 12:48 Last Infusion: 05/18/21 17:53 Dose: Infused Documented by: Amphotericin B 300 mg/ (Dextrose) 300 mls @ 150 mls/hr IV Q24H [facility] Last Admin: 05/19/21 15:18 Dose: Not Given Documented by: Heparin Sodium (Porcine) (Heparin, Porcine) Confirm Administered Dose 10 mls @ as directed .ROUTE .STK-MED ONE Stop: 05/19/21 10:55 Norepinephrine Bitartrate 8 mg (/ Dextrose) 508 mls @ 0 mls/hr IV .Q0M [facility]; Protocol Last Titration: 05/19/21 19:09 Dose: 0 mcg/min, 0 mls/hr Documented by: Cefazolin Sodium 2,000 mg/ (Sodium Chloride) 60 mls @ 100 mls/hr IV ONCE ONE Stop: 05/19/21 14:20 Last Infusion: 05/19/21 13:51 Dose: Infused Documented by: Dextrose/Sodium Chloride (Dextrose 5%-Sod Chloride 0.45%) 1,000 mls @ 50 mls/hr IV .Q20H [facility] Last Infusion: 05/24/21 04:53 Dose: 0 mls/hr Documented by: Insulin Human Regular 250 unit (/ Sodium Chloride) 252.5 mls @ 0 mls/hr IV .Q0M [facility]; Protocol Last Titration: 05/22/21 06:30 Dose: 0 ml/hr, 0 mls/hr Documented by: Potassium Chloride (K-Albino) 100 mls @ 25 mls/hr IV ONCE ONE Stop: 05/20/21 13:54 Last Infusion: 05/20/21 14:16 Dose: Infused Documented by: Lactated Ringer's (Lactated Ringers) 1,000 mls @ 500 mls/hr IV .Q2H ONE Stop: 05/21/21 11:46 Last Infusion: 05/21/21 11:55 Dose: Infused Documented by: Magnesium Sulfate (Magnesium Sulfate Premix) 4 gm in 100 mls @ 50 mls/hr IV ONCE ONE Stop: 05/23/21 11:10 Last Infusion: 05/23/21 12:46 Dose: Infused Documented by: Lidocaine HCl 5 ml/ Potassium (Chloride) 105 mls @ 25 mls/hr IV ONCE ONE Stop: 05/23/21 13:22 Last Infusion: 05/23/21 14:33 Dose: Infused Documented by: Etomidate (Amidate) Confirm Administered Dose 10 mls @ as directed .ROUTE .STK- MED ONE Stop: 05/24/21 05:33 Propofol (Diprivan) Confirm Administered Dose 1,000 mg in 100 mls @ as directed .ROUTE .STK-MED ONE Stop: 05/24/21 05:34 Ibuprofen (Ibuprofen 200 Mg Tablet) 600 mg PO ONCE ONE Stop: 05/12/21 09:19 Last Admin: 05/12/21 10:50 Dose: Not Given Documented by: Insulin Human Lispro (Insulin Lispro 100 Unit/1 Ml) 0 unit SUBCUT WM&BEDTIME [facility]; Protocol Last Admin: 05/08/21 07:50 Dose: Not Given Documented by: Insulin Human Lispro (Insulin Lispro 100 Unit/1 Ml) 0 unit SUBCUT Q6H [facility]; Protocol Last Admin: 05/18/21 07:22 Dose: Not Given Documented by: Insulin Human Lispro (Insulin Lispro 100 Unit/1 Ml) 0 unit SUBCUT WM&BEDTIME [facility]; Protocol Last Admin: 05/20/21 08:00 Dose: Not Given Documented by: Iodixanol (Iodixanol 320 Mg/Ml 100ml Btl) 0 ml IV ONCE ONE Stop: 04/22/21 10:48 Last Admin: 04/22/21 10:48 Dose: 95 ml Documented by: Iodixanol (Iodixanol 320 Mg/Ml 100ml Btl) 0 ml IV ONCE ONE Stop: 05/11/21 15:47 Last Admin: 05/11/21 15:47 Dose: 95 ml Documented by: Iodixanol (Iodixanol 320 Mg/Ml 100ml Btl) 0 ml IV ONCE ONE Stop: 05/24/21 08:24 Last Admin: 05/24/21 08:24 Dose: 46 ml Documented by: Ketorolac Tromethamine (Ketorolac 30 Mg/Ml Inj) 15 mg IVP Q12H PRN PRN Reason: MODERATE PAIN Stop: 05/15/21 09:40 Last Admin: 05/12/21 01:51 Dose: 15 mg Documented by: Ketorolac Tromethamine (Ketorolac 30 Mg/Ml Inj) 15 mg IVP ONCE ONE Stop: 05/10/21 11:17 Last Admin: 05/10/21 11:34 Dose: 15 mg Documented by: Labetalol HCl (Labetalol 5 Mg/Ml Sdv 20ml) 10 mg IVP Q4H PRN PRN Reason: HYPERTENSION Last Admin: 04/28/21 08:02 Dose: 10 mg Documented by: Lactulose (Lactulose Oral Liq 20 Gm/30 Ml Udc) 10 gm PO DAILY PRN PRN Reason: CONSTIPATION Lactulose (Lactulose Oral Liq 20 Gm/30 Ml Udc) 20 gm PO ONCE ONE Stop: 04/23/21 08:36 Last Admin: 04/23/21 09:12 Dose: 20 gm Documented by: Lactulose (Lactulose Oral Liq 20 Gm/30 Ml Udc) 200 gm UT ONCE ONE Stop: 04/23/21 15:15 Last Admin: 04/23/21 17:00 Dose: 200 gm Documented by: Lactulose (Lactulose Oral Liq 20 Gm/30 Ml Udc) 10 gm PEG-TUBE DAILY PRN PRN Reason: CONSTIPATION Lactulose (Lactulose Oral Liq 20 Gm/30 Ml Udc) 10 gm PO DAILY PRN PRN Reason: CONSTIPATION Lactulose (Lactulose Oral Liq 20 Gm/30 Ml Udc) 10 gm PO DAILY [facility] Last Admin: 05/15/21 08:19 Dose: 10 gm Documented by: Lanolin (Lanolin Oint 7 Gm) 1 applic TOPICAL PRN PRN PRN Reason: DRYNESS Lanolin (Lanolin Oint 7 Gm) 1 applic TOPICAL PRN PRN PRN Reason: DRYNESS Lidocaine HCl (Lidocaine 2% Inj 20 Ml) 20 ml INJECTION ONCE ONE Stop: 05/08/21 08:35 Last Admin: 05/08/21 09:02 Dose: Not Given Documented by: Lidocaine HCl (Lidocaine 2% Inj 20 Ml) 20 ml INJECTION ONCE ONE Stop: 05/08/21 09:07 Last Admin: 05/08/21 09:10 Dose: 20 ml Documented by: Lidocaine HCl (Lidocaine 2% Inj 20 Ml) 20 ml INJECTION ONCE ONE Stop: 05/12/21 17:04 Last Admin: 05/12/21 17:11 Dose: 20 ml Documented by: Lidocaine HCl (Lidocaine 2% Inj 20 Ml) Confirm Administered Dose 20 ml .ROUTE .[facility] ONE Stop: 05/19/21 10:55 Lidocaine HCl (Lidocaine 2% Inj 20 Ml) 20 ml INJECTION ONCE ONE Stop: 05/19/21 11:03 Last Admin: 05/19/21 13:52 Dose: 20 ml Documented by: Lidocaine HCl (Lidocaine 2% Inj 20 Ml) Confirm Administered Dose 20 ml .ROUTE .STK-MED ONE Stop: 05/19/21 12:44 Lorazepam (Lorazepam 2 Mg/Ml Inj 1 Ml) 2 mg IVP Q4H PRN PRN Reason: ANXIETY Last Admin: 04/21/21 00:01 Dose: 2 mg Documented by: Lorazepam (Lorazepam 2 Mg/Ml Inj 1 Ml) Confirm Administered Dose 2 mg .ROUTE .STK-MED ONE Stop: 04/21/21 00:00 Last Admin: 04/21/21 01:44 Dose: 2 mg Documented by: Lorazepam (Lorazepam 2 Mg/Ml Inj 1 Ml) 2 mg IVP Q4H PRN PRN Reason: ANXIETY Last Admin: 04/25/21 23:17 Dose: 2 mg Documented by: Lorazepam (Lorazepam 2 Mg/Ml Inj 1 Ml) 0.5 mg IVP Q4H PRN PRN Reason: ANXIETY Last Admin: 04/28/21 10:40 Dose: 0.5 mg Documented by: Lorazepam (Lorazepam 2 Mg/Ml Inj 1 Ml) 1 mg IVP Q8H PRN PRN Reason: ANXIETY Last Admin: 05/06/21 11:15 Dose: 1 mg Documented by: Lorazepam (Lorazepam 2 Mg/Ml Inj 1 Ml) 1 mg IVP ONCE ONE Stop: 05/24/21 04:09 Last Admin: 05/24/21 04:38 Dose: 1 mg Documented by: Lorazepam (Lorazepam 2 Mg/Ml Inj 1 Ml) Confirm Administered Dose 2 mg .ROUTE .STK-MED ONE Stop: 05/24/21 04:13 Magnesium Hydroxide (Magnesium Hydroxide 30 Ml Udc) 30 ml PO DAILY [facility] Last Admin: 05/15/21 08:19 Dose: 30 ml Documented by: Metoprolol Tartrate (Metoprolol Tartrate 25 Mg Tablet) 25 mg PO BID@0900,2099 [facility] Last Admin: 05/03/21 09:20 Dose: 25 mg Documented by: Metoprolol Tartrate (Metoprolol Tartrate 25 Mg Tablet) 50 mg PO BID@0900,2100 [facility] Last Admin: 05/06/21 10:23 Dose: Not Given Documented by: Midazolam HCl (Midazolam 1 Mg/Ml Inj 2 Ml) Confirm Administered Dose 2 mg .ROUTE .STK-MED ONE Stop: 04/21/21 00:49 Midazolam HCl (Midazolam 1 Mg/Ml Inj 2 Ml) 2 mg IVP ONCE ONE Stop: 04/21/21 00:54 Last Admin: 04/21/21 01:05 Dose: 2 mg Documented by: Midazolam HCl (Midazolam 1 Mg/Ml Inj 2 Ml) 4 mg IVP ONCE ONE Stop: 05/06/21 11:22 Last Admin: 05/06/21 15:41 Dose: 4 mg Documented by: Midazolam HCl (Midazolam 1 Mg/Ml Inj 2 Ml) 2 mg IVP ONCE ONE Stop: 05/13/21 07:36 Last Admin: 05/13/21 09:13 Dose: 2 mg Documented by: Midazolam HCl (Midazolam 1 Mg/Ml Inj 2 Ml) 2 mg IVP ONCE ONE Stop: 05/13/21 07:37 Last Admin: 05/13/21 09:13 Dose: Not Given Documented by: Mineral Oil (Mineral Oil Enema 133 Ml) 133 ml UT ONCE ONE Stop: 05/14/21 11:21 Last Admin: 05/14/21 12:46 Dose: Not Given Documented by: Morphine Sulfate (Morphine 4 Mg/Ml Sdv 1 Ml) 2 mg IVP Q4H PRN PRN Reason: SEVERE PAIN Last Admin: 04/20/21 19:18 Dose: 2 mg Documented by: Morphine Sulfate (Morphine 4 Mg/Ml Sdv 1 Ml) 2 mg IVP ONCE ONE Stop: 05/05/21 08:08 Last Admin: 05/05/21 09:06 Dose: 2 mg Documented by: Morphine Sulfate (Morphine 4 Mg/Ml Sdv 1 Ml) 1 mg IVP Q4H ANNIE Last Admin: 05/15/21 06:02 Dose: 1 mg Documented by: Morphine Sulfate (Morphine 4 Mg/Ml Sdv 1 Ml) 1 mg IVP Q4H PRN PRN Reason: PAIN Last Admin: 05/18/21 22:00 Dose: 1 mg Documented by: Ondansetron HCl (Ondansetron 2 Mg/Ml Sdv 2 Ml) 4 mg IVP ONCE ONE Stop: 04/18/21 22:06 Last Admin: 04/18/21 22:19 Dose: 4 mg Documented by: Ondansetron HCl (Ondansetron 2 Mg/Ml Sdv 2 Ml) 4 mg IVP ONCE ONE Stop: 04/18/21 23:48 Last Admin: 04/19/21 04:13 Dose: 4 mg Documented by: Paricalcitol (Paricalcitol 2 Mcg/Ml Sdv 1 Ml) 3 mcg IV ONCE ONE Stop: 04/22/21 07:15 Last Admin: 04/22/21 16:21 Dose: 3 mcg Documented by: Paricalcitol (Paricalcitol 2 Mcg/Ml Sdv 1 Ml) 4 mcg IV ONCE ONE Stop: 04/23/21 08:16 Last Admin: 04/23/21 12:43 Dose: 4 mcg Documented by: Potassium Chloride (Potassium Chloride Oral Liq 20 Meq/15 Ml Udc) 40 meq PO BID ANNIE Stop: 04/22/21 22:00 Last Admin: 04/22/21 17:05 Dose: 40 meq Documented by: Potassium Chloride (Potassium Chloride Er 20 Meq Tablet) 40 meq PO ONCE ONE Stop: 05/04/21 09:34 Last Admin: 05/04/21 10:42 Dose: 40 meq Documented by: Potassium Chloride (Potassium Chloride Oral Liq 20 Meq/15 Ml Udc) 40 meq PO ONCE ONE Stop: 05/07/21 07:20 Last Admin: 05/07/21 09:25 Dose: Not Given Documented by: Potassium Chloride (Potassium Chloride Oral Liq 20 Meq/15 Ml Udc) 40 meq OG- TUBE NOW ONE Stop: 05/07/21 09:25 Last Admin: 05/07/21 09:29 Dose: 40 meq Documented by: Potassium Chloride (Potassium Chloride Oral Liq 20 Meq/15 Ml Udc) 40 meq PO ONCE ONE Stop: 05/07/21 09:46 Last Admin: 05/07/21 11:02 Dose: Not Given Documented by: Potassium Chloride (Potassium Chloride Oral Liq 20 Meq/15 Ml Udc) 40 meq PO ONCE ONE Stop: 05/10/21 09:55 Last Admin: 05/10/21 11:28 Dose: 40 meq Documented by: Potassium Chloride (Potassium Chloride Er 20 Meq Tablet) 40 meq PO Q1H [facility] Stop: 05/21/21 08:16 Last Admin: 05/21/21 09:53 Dose: 40 meq Documented by: Potassium Chloride (Potassium Chloride Er 20 Meq Tablet) 20 meq PO ONCE ONE Stop: 05/23/21 08:46 Last Admin: 05/23/21 09:58 Dose: 20 meq Documented by: Prednisone (Prednisone 20 Mg Tablet) 30 mg PO DAILY [facility] Last Admin: 05/02/21 08:28 Dose: 30 mg Documented by: Prednisone (Prednisone 20 Mg Tablet) 40 mg PO DAILY [facility] Last Admin: 05/19/21 19:10 Dose: Not Given Documented by: Propofol (Propofol 10 Mg/Ml Sdv 20 Ml) Confirm Administered Dose 600 mg .ROUTE .STK-MED ONE Stop: 05/19/21 12:44 Propofol (Propofol 10 Mg/Ml Sdv 20 Ml) Confirm Administered Dose 200 mg .ROUTE .STK-MED ONE Stop: 05/19/21 14:35 Propofol (Propofol 10 Mg/Ml Sdv 20 Ml) Confirm Administered Dose 200 mg .ROUTE .STK-MED ONE Stop: 05/19/21 15:04 Propofol (Propofol 10 Mg/Ml Sdv 20 Ml) Confirm Administered Dose 200 mg .ROUTE .STK-MED ONE Stop: 05/19/21 15:48 Quetiapine Fumarate (Quetiapine 25 Mg Tablet) 50 mg PO BID [facility] Last Admin: 04/29/21 17:41 Dose: 50 mg Documented by: Quetiapine Fumarate (Quetiapine 25 Mg Tablet) 25 mg PO BID [facility] Quetiapine Fumarate (Quetiapine 25 Mg Tablet) 25 mg PO DAILY [facility] Last Admin: 04/30/21 09:58 Dose: 25 mg Documented by: Quetiapine Fumarate (Quetiapine 25 Mg Tablet) 25 mg PO BID [facility] Last Admin: 05/02/21 08:29 Dose: 25 mg Documented by: Quetiapine Fumarate (Quetiapine 25 Mg Tablet) 25 mg PO BEDTIME [facility] Last Admin: 05/09/21 21:21 Dose: 25 mg Documented by: Quetiapine Fumarate (Quetiapine 25 Mg Tablet) 50 mg PO BEDTIME [facility] Last Admin: 05/10/21 20:28 Dose: 50 mg Documented by: Rocuronium [place] (Rocuronium 10 Mg/Ml Inj 5ml) 80 mg IVP Q1H PRN 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 Last Admin: 05/06/21 15:41 Dose: 80 mg Documented by: Sertraline HCl (Sertraline 50 Mg Tablet) 50 mg PO DAILY [facility] Last Admin: 04/30/21 08:23 Dose: 50 mg Documented by: Sodium Bicarbonate (Sodium Bicarbonate 8.4% 1 Meq/Ml 50ml Syr) 50 meq IVP ONCE ONE Stop: 04/19/21 02:26 Last Admin: 04/19/21 04:15 Dose: 50 meq Documented by: Succinylcholine Chloride (Succinylcholine 20 Mg/Ml Sdv 10ml) Confirm Administered Dose 200 mg .ROUTE .STK-MED ONE Stop: 04/21/21 00:49 Succinylcholine Chloride (Succinylcholine 20 Mg/Ml Sdv 10ml) 100 mg IVP NOW ONE Stop: 04/21/21 00:55 Last Admin: 04/21/21 01:05 Dose: 100 mg Documented by: Succinylcholine Chloride (Succinylcholine 20 Mg/Ml Sdv 10ml) 100 mg IVP NOW ONE Stop: 05/24/21 05:35 Last Admin: 05/24/21 05:40 Dose: 100 mg Documented by: Succinylcholine Chloride (Succinylcholine 20 Mg/Ml Sdv 10ml) Confirm Administered Dose 200 mg .ROUTE .STK-MED ONE Stop: 05/24/21 05:34 Zolpidem Tartrate (Zolpidem 5 Mg Tablet) 5 mg PO ONCE ONE Stop: 05/24/21 03:16 Last Admin: 05/24/21 03:22 Dose: 5 mg Documented by: Allergies No Known Allergies Allergy (Verified 04/20/21 13:09) Home Medications norgestimate-ethinyl estradiol 0.18 mg/0.215mg/0.25mg-35 mcg(28)tablet (Tri- Linyah) 1 tab PO DAILY #84 tab 01/14/21 [Rx Confirmed 04/19/21] metformin 1,000 mg tablet 1,000 mg PO BID #180 tab 01/29/21 [Rx Confirmed 04/19/21] duloxetine 60 mg capsule,delayed release 60 mg PO DAILY #90 cap 01/30/21 [Rx Confirmed 04/19/21] fenofibrate nanocrystallized 145 mg tablet 145 mg PO DAILY #90 tab 01/30/21 [Rx Confirmed 04/19/21] metoprolol succinate 50 mg tablet,extended release 24 hr (Toprol XL) 50 mg PO DAILY #90 tab 01/30/21 [Rx Confirmed 04/19/21] spironolactone 50 mg tablet 50 mg PO BID #180 tab 01/30/21 [Rx Confirmed 04/19/21] hydrochlorothiazide 25 mg tablet 25 mg PO DAILY #90 tab 02/26/21 [Rx Confirmed 04/19/21] ondansetron 4 mg disintegrating tablet 4 mg PO Q8H PRN #20 tab 04/17/21 [Rx Confirmed 04/19/21] Discharge Plan Discharge Patient Disposition: Home Condition: Stable Prescriptions: No Action ondansetron 4 mg tablet,disintegrating 4 mg PO Q8H PRN (Reason: nausea and vomiting) Qty: 20 0RF norgestimate-ethinyl estradiol [Tri-Linyah] 0.18/0.215/0.25 mg-35 mcg (28) tablet 1 tab PO DAILY Qty: 84 3RF metformin 1,000 mg tablet 1,000 mg PO BID Qty: 180 3RF duloxetine 60 mg capsule,delayed release(DR/EC) 60 mg PO DAILY Qty: 90 3RF spironolactone 50 mg tablet 50 mg PO BID Qty: 180 3RF metoprolol succinate [Toprol XL] 50 mg tablet extended release 24 hr 50 mg PO DAILY Qty: 90 3RF fenofibrate nanocrystallized 145 mg tablet 145 mg PO DAILY Qty: 90 3RF hydrochlorothiazide 25 mg tablet 25 mg PO DAILY Qty: 90 3RF Referrals: [facility] [Other] (Hemodialysis is setup for Tuesday, Tuesday, Tuesday at 3pm. ) [facility] [Outside] Colten Glaser MD [Primary Care Provider] - Patient Instructions: Opioid Safety Transfer Attestations Time Spent in Transfer Care: critical care time Critical Care Time (min): 55 Quality Metrics Clinical Quality Measures [ No reported AMI, CVA or VTE this stay] Coding Level of Care Code Acute Sales Consultant Residential Manager for Chg Fwd Diagnoses S/P dialysis catheter insertion Z95.828; Z99.2 Hypertriglyceridemia E78.1 Trichosporonosis B36.2 Coco parapsilosis infection B37.9 Persistent fever R50.9 B12 deficiency anemia D51.9 Yeast detected B37.9 Pulmonary embolism I26.99 Acute respiratory distress syndrome (ARDS) due to 2019 novel coronavirus U07.1; J80 ATN (acute tubular necrosis) N17.0 COVID U07.1 Hypovolemic shock R57.1 Acute kidney injury N17.9 Acute pancreatitis K85.90
[2021-05-24] MEDS: propofol 1,000 MG/100 ML INJ 11.15 MG IV ×2 (16:15→17:32)
--- NOTE | 2021-05-24 16:17 | PC.NURSE ---
Artie Trevino notified this nurse transport should be here approximately 1700
--- NOTE | 2021-05-24 16:24 | PC.SOCIAL ---
IMM UPDATED IMM dated and initialed and copy given to family
[2021-05-24 16:43] LABS: Troponin 5 6HR 237.8 ng/L (0-10)
[2021-05-24 16:44] LABS: Troponin 5 6HR Delta 23.8 ng/L (0-12)
--- NOTE | 2021-05-24 17:47 | PC.NURSE ---
Patient left with EMS, extra bottle of propofol gave to crew per EMS request, Family at bedside
--- NOTE | 2021-05-24 18:21 | PM.CCN ---
Critical Care Event Note Called to bedside earlier this morning regarding continued respiratory distress following a rapid response call for the patient on the floor. She had been moved to ICU 11. On bedside evaluation, the patient was breathing 40 times per minute, satting 93% on 15 L nonrebreather. Chest x-ray had been completed, and showed significantly worsening ARDS bilaterally. The patient was struggling to breathe, tired, and lethargic. It was determined that the patient needed to be intubated for respiratory support. Rapid sequence intubation was ordered, labs reviewed showed potassium of 4, with a creatinine of 1. Etomidate and succinylcholine were ordered for RSI. Upon administration of etomidate, the patient began to desaturate, despite bag valve mask respiration from respiratory therapy, when her sats hit the mid 80s, her heart rate began to slow down, going from 120s to 35 very quickly, chest compressions were started, as the heart rate sank to 0. KAYLIE BENNETT was called. She continued to desaturate. During this time, intubation was attempted while first 1 mg of atropine, then when chest compressions started 1 mg epinephrine was given. After several chest compressions, rhythm was noted on the monitor to be outpacing the chest compressions. The patient was intubated successfully using an 8 oh tube, 21 at the teeth using camera assisted intubation. Patient saturations immediately came up to 94% and above on the monitor. Hypertensive blood pressure was obtained. Heart rate was in the 170s, sinus, and then began to fall as atropine and epinephrine dissipated. I spoke with the patient's parents to let them know what to take in place. X-ray confirms appropriate tube placement. Critical Care Time Code activated: Yes Critical Care Time (min): 36 Additional information about critical care time: This case had a high probability of a clinically significant, sudden, or life threatening deterioration of this patient's condition which required my full and direct attention, intervention and personal management. The 36 minutes is independent of the intubation procedure performed. Included is time counseling family, documentation, and orders given for intubation, brief code, etc. Procedures Intubation Time out performed: No Sedative: etomidate Mg given: 20 Paralytic: succinylcholine Mg given: 100 Laryngoscope: fiber optic video scope ET tube size: 8 ET tube uncuffed: No Tube secured depth (cm): 21 Tube secured location: teeth Tube placement confirmation: visualized tube passing through cords, equal breath sounds bilaterally and confirmation by capnometry Patient tolerated procedure: other Intubation complications: difficult intubation, hypoxia and other (See above) Coding Level of Care Code Acute Monogram Machine Operator for Thai Perea
[2021-05-30 20:18] LABS: Aspergillus AG,EIA,Serum NOT DETECTED; Aspergillus Galactomannan Inde <0.50
[2021-06-04 16:39] LABS: Miscellaneous Test SEE COMMENTS
== END 2021-05-24 17:52 | disposition short-term general hospital (02) | DRG 870 ==
LOC: ER 04-19 01:27 → ICU 04-19 02:00 → MEDSURG 05-03 11:20 → ICU 05-06 00:18 → MEDSURG 05-22 16:29 → ICU 05-24 03:49
PROVIDERS: Internal Medicine; Internal Medicine Nephrology; Internal Medicine Pulmonary Disease; Physician Assistant; Student in an Organized Health Care Education/Training Program; Surgery; Admitting Provider Family Medicine; Emergency Provider Emergency Medicine; PCP Internal Medicine; Visit Provider Family Medicine
PROC: 05JY3ZZ Inspection of Upper Vein, Percutaneous Approach (ICD-10-PCS; principal; 2021-05-19 10:10)
DX: A41.9 Sepsis, unspecified organism (principal); R65.21 Severe sepsis with septic shock; U07.1 COVID-19; J12.82 Pneumonia due to coronavirus disease 2019; K85.90 Acute pancreatitis without necrosis or infection, unspecified; N17.0 Acute kidney failure with tubular necrosis; G93.41 Metabolic encephalopathy; R57.1 Hypovolemic shock; J69.0 Pneumonitis due to inhalation of food and vomit; J80 Acute respiratory distress syndrome; I26.93 Single subsegmental thrombotic pulmonary embolism without acute cor pulmonale; I46.9 Cardiac arrest, cause unspecified; E87.4 Mixed disorder of acid-base balance; E87.1 Hypo-osmolality and hyponatremia; K56.7 Ileus, unspecified; G72.81 Critical illness myopathy; B37.89 Other sites of candidiasis; I10 Essential (primary) hypertension; F41.1 Generalized anxiety disorder; F70 Mild intellectual disabilities; E28.2 Polycystic ovarian syndrome; E78.1 Pure hyperglyceridemia; F32.A Depression, unspecified; E86.0 Dehydration; E83.51 Hypocalcemia; K80.80 Other cholelithiasis without obstruction; K76.0 Fatty (change of) liver, not elsewhere classified; D51.9 Vitamin B12 deficiency anemia, unspecified; R00.0 Tachycardia, unspecified; R19.7 Diarrhea, unspecified; I95.9 Hypotension, unspecified; A59.8 Trichomoniasis of other sites; J84.10 Pulmonary fibrosis, unspecified; R73.9 Hyperglycemia, unspecified
CPT/HCPCS: 31500; 36415; 36416; 36430; 36556; 36569; 36592; 36600; 51702; 51798; 70450; 70487; 71045; 71250; 71275; 72170; 74018; 74176; 74177; 76700; 76705; 76937; 77001; 80048; 80051; 80053; 80061; 80074; 80202; 80307; 80320; 80500; 81001; 81003; 82009; 82306; 82310; 82330; 82436; 82550; 82570; 82607; 82652; 82693; 82728; 82746; 82803; 82805; 82962; 82977; 83010; 83036; 83540; 83550; 83605; 83615; 83690; 83721; 83735; 83970; 84100; 84132; 84133; 84145; 84156; 84166; 84300; 84443; 84478; 84484; 84550; 84703; 85007; 85014; 85018; 85025; 85045; 85049; 85362; 85378; 85384; 85610; 85651; 85730; 85999; 86140; 86225; 86235; 86618; 86666; 86706; 86757; 86803; 86850; 86900; 86920; 87040; 87070; 87075; 87077; 87086; 87102; 87106; 87107; 87150; 87186; 87205; 87206; 87305; 87340; 87426; 87449; 87486; 87493; 87581; 87633; 87635; 87641; 87798; 87804; 87806; 89050; 90935; 92526; 92610; 93005; 93306; 93312; 93320; 93325; 93970; 94002; 94003; 94640; 94660; 94664; 94669; 94799; 96365; 96372; 96375; 96376; 97110; 97161; 97166; 97530; 97535; 99285; A4570; C1750; C1751; J0289; J0330; J0360; J0610; J0637; J0690; J0743; J1100; J1450; J1644; J1815; J1885; J1940; J2060; J2250; J2270; J2405; J2501; J2543; J2704; J2916; J2997; J3010; J3370; J3420; J3475; J3480; J3490; J7030; J7050; J7512; J7608; J7799; P9016; P9041; P9047; Q3014; Q4081; Q9967

== ENCOUNTER 2021-08-12 11:46 | Outpatient (CLI) | payer MEDICARE, MEDICAID, SELFPAY ==
--- NOTE | 2021-08-12 12:44 | US_ITS ---
WS: [id number] Complete ABDOMINAL ULTRASOUND HISTORY: ELEVATED LFT'S COMPARISON: 04/25/2021 Liver: 14.2 cm in length. Liver is normal size and slight increase echogenicity with no mass or intra hepatic dilatation. Portal Vein: Normal hepatopetal flow with monophasic waveform. Gallbladder: Normally distended gallbladder. Several stones are present within the lumen. No gallblad rachel wall thickening or edema. Gallbladder wall thickness: 0.3 cm. Pancreas: Tail is obscured by bowel gas. CBD: 0.3 cm. Right kidney: 10.8 cm x 4.8 cm x 6.2 cm. No mass, cortical thickening or hydronephrosis. Left kidney: 9.1 cm x 4.6 cm x 5.4 cm. No mass, cortical thickening or hydronephrosis. Spleen: Normal size and echogenicity. Splenule adjacent to the spleen. Also seen on a prior CT. Splen ule measures 9 x 7 x 10 mm. Abdominal aorta and IVC are within normal limits. No ascites. US/US abdomen complete* [id number] IMPRESSION: 1. Mild hepatic steatosis similar to prior studies. 2. Cholelithiasis without evidence for acute cholecystitis. 3. No ascites. Normal size spleen.
== END 2021-08-12 11:47 | disposition home or self-care (01) ==
PROVIDERS: PCP Nurse Practitioner Family; Visit Provider Nurse Practitioner Family
DX: K80.20 Calculus of gallbladder without cholecystitis without obstruction (principal); K76.0 Fatty (change of) liver, not elsewhere classified; R74.8 Abnormal levels of other serum enzymes; R79.89 Other specified abnormal findings of blood chemistry
CPT/HCPCS: 76700

== ENCOUNTER 2021-08-24 11:59 | Inpatient (IN) | payer MEDICARE, MEDICAID, SELFPAY ==
[2021-08-24] VITALS (61 sets, daily range): BP systolic 70–117; BP diastolic 35–87; PULSE 94–141; RESP 15–39; TEMP 36.4–37.7; O2SAT 92–100; BMI 20.9
--- NOTE | 2021-08-24 12:08 | ECG_ITS ---
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 Measurements Intervals [place] Rate: 130 P: 57 OR: 146 QRS: 64 QRSD: 69 T: 73 QT: 333 QTc: 490 Interpretive Statements SINUS TACHYCARDIA NONSPECIFIC ST & T-WAVE ABNORMALITY ABNORMAL RHYTHM ECG Compared to ECG 05/24/2021 09:30:53 Short OR interval no longer present T-wave abnormality still present Electronically Signed On 08-24-2021 16:25:05 CDT by Mushtaq Redman M.D. [id number]
--- NOTE | 2021-08-24 12:58 | XRR_ITS ---
PROCEDURE INFORMATION: Exam: XR Chest Exam date and time: 08/24/2021 1:34 PM Age: 40 years old Clinical indication: Angina and other: Abdomen; Additional info: Hypotension, chest pain, abd pain TECHNIQUE: Imaging protocol: XR of the chest. Views: 1 view. COMPARISON: CR (CHEST, ) 05/24/2021 5:58 AM FINDINGS: Lungs: Unremarkable. No consolidation. Pleural spaces: Unremarkable. No pleural effusion. No pneumothorax. Heart/Mediastinum: Unremarkable. No cardiomegaly. Bones/joints: Unremarkable. XR/XR chest 1V portable [id number] IMPRESSION: No acute findings.
--- NOTE | 2021-08-24 12:58 | ECG_ITS ---
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 Measurements Intervals [place] Rate: 113 P: 69 IN: 152 QRS: 77 QRSD: 70 T: 67 QT: 330 QTc: 454 Interpretive Statements SINUS TACHYCARDIA NONSPECIFIC T-WAVE ABNORMALITY ABNORMAL RHYTHM ECG Compared to ECG 08/24/2021 15:01:01 No significant changes Electronically Signed On 08-24-2021 16:25:29 CDT by Mushtaq Redman M.D. [id number]
--- NOTE | 2021-08-24 13:00 | W.ED.GENADLT ---
HPI - General Adult General: Chief complaint: Nausea/Vomiting/Diarrhea Stated complaint: PCP sent for High HR Time Seen by Provider: 08/24/21 12:45 History of Present Illness: Patient is a 40-year-old female with history of polycystic ovarian syndrome, hypertriglyceridemia, hypertension, depression, cognitive impairment who presents the emergency room with concerns for low blood pressure and elevated heart rate. Patient patient's family, patient has been having complaints of abdominal pain, chest pain and diarrhea earlier today. Patient was taken to an urgent care at which point time, patient was found to have heart rate was until called to come to the emergency room. On arrival, patient was noted to have blood pressure 70/40. Heart rate of 140. Patient has no other focal complaints at this time other than multiple episodes of emesis and complains of abdominal pain today. Patient denies any possibility of . Patient denies any urinary complaints, hematuria/hematochezia, vaginal bleeding. Patient reports mild chest pain earlier today. Denies any difficulty breathing, cough, runny nose, sore throat, fever or chills Onset: earlier today Duration:ongoing Location:home Severity:severe Associated symptoms: Reports nausea and vomiting; Deny dyspnea, rash or palpitations Review of Systems Const: Denies: fever(s) or chills Eyes: Denies: change in vision ENMT: Denies: mouth pain Card: Denies: palpitations Resp: Denies: dyspnea or non-productive cough GI: Reports: abdominal pain, nausea, vomiting and diarrhea : Denies: dysuria Musc: Denies: extremity pain Skin/Breast: Denies: rash or new lesions Neuro: Denies: weakness in extremities Psych: Reports: other (Normal mood) Arturo/Lymph: Denies: easy bruising PFSH ED PFSH: Medical History Acute respiratory distress syndrome (ARDS) due to 2019 novel coronavirus ATN (acute tubular necrosis) B12 deficiency anemia COVID Essential hypertension GODFREY (generalized anxiety disorder) Hypertriglyceridemia Mild mental handicap No pertinent family history PCOS (polycystic ovarian syndrome) Pulmonary embolism Yeast detected Coco parapsilosis 04/29, endotracheal aspirate Trichosporosis ashai Surgical History No pertinent past surgical history Family History Father Cancer Social History Smoking and tobacco status: never smoked Alcohol intake: never History of recent travel: No Female Reproductive History: Date of last menstrual period: 04/09/21 Physical Exam Const: COMMON NORMALS: alert HENMT: COMMON NORMALS: atraumatic HEAD & SCALP: atraumatic MOUTH: moist mucous membranes not abnormal Eye: COMMON NORMALS: EOMs intact bilaterally and conjunctivae normal CONJUNCTIVA: Yes conjunctivae normal Neck/C-Spine: COMMON NORMALS: full ROM and supple Resp: COMMON NORMALS: normal respiratory effort and clear to auscultation bilaterally AUSCULTATION: clear to auscultation bilaterally Cardio: COMMON NORMALS: regular rate RATE: regular rate GI: COMMON NORMALS: Soft to palpation and non-tender PALPATION: Yes Soft to palpation Extremity: COMMON NORMALS: full ROM Neuro: SENSORIUM/ORIENTATION: Yes alert MOTOR EXAM: No Abnormal motor strength present and Other motor observations present (no focal motor deficits) Psych: COMMON NORMALS: speech normal SPEECH: Yes normal speech MOOD & AFFECT: Yes euthymic mood Course Vital Signs: Vital signs: Vital Signs Temperature 97.6 F 08/24/21 12:38 Pulse Rate 120 H 08/24/21 15:30 Respiratory Rate 20 H 08/24/21 15:30 Blood Pressure 115/85 08/24/21 15:30 Pulse Oximetry 94 08/24/21 15:30 MDM - General Adult Medical Decision Making 40-year-old female with history of prior COVID c/b ARDS, polycystic ovarian syndrome, developmental delay presenting to the emergency room with concerns of tachycardia hypotension diarrhea. Fast negative for any bleed. Hemoglobin of 11.5. White count 13.6. Lactic acid of 3.1. Preg negative. Patient received 2 L of fluids which point time required 3 L of oxygen to be satting at 94 to 95%. [address] chest abdomen pelvis negative for PE or any acute abdominal pathologies. Unclear what is the source of patient's hypotension today. Patient received vancomycin and cefepime and 30 cc/kg of IVF. Patient initially was on norepi 5mcg/hr with improvement in blood pressure. Patient has been eventually able to taper off of norepinephrine is currently off of norepinephrine with latest blood pressure 119/79. Given ongoing tachycardia, new requirement for oxygen and possible future need for pressor, patient will be admitted to the ICU for close monitoring. Disposition: ICU Lab Data : 08/24/21 13:20 08/24/21 12:58 Radiology Impressions Chest X-Ray 08/24/21 12:58 IMPRESSION: No acute findings. Chest/Abdomen/Pelvis CT 08/24/21 13:58 IMPRESSION: 1. No evidence of proximal pulmonary embolus. Images degraded by patient motion. 2. Improved aeration of both lungs compared to previous. Slight residual hazy groundglass infiltrates in the upper lobes. Slight patchy infiltrates or atelectasis RIGHT lower lobe. 3. Diffuse fatty infiltration of the liver 4. Fluid distended gallbladder similar to previous. 5. Normal caliber abdominal aorta. 6. Stable cystic lesion LEFT adnexa measuring 4.2 x 2.4 cm similar to previous 7. Mild prominence of a few fluid-filled small bowel loops in the central abdomen. No evidence of high-grade obstruction. 8. No other significant changes compared to previous. Laboratory Results WBC 13.6 10^3/uL (4.0-10.0) H 08/24/21 13:20 RBC 3.93 10^6/uL (4.1-5.3) L 08/24/21 13:20 Hgb 11.5 g/dL (11.5-15.3) 08/24/21 13:20 Hct 36.6 % (37.0-47.0) L 08/24/21 13:20 MCV 93.1 fl (81-99) 08/24/21 13:20 MCH 29.3 pg (28.0-34.0) 08/24/21 13:20 MCHC 31.4 g/dL (30.0-36.0) 08/24/21 13:20 RDW 12.6 % (12.1-15.1) 08/24/21 13:20 Plt Count 192 10^3/cmm (130-400) 08/24/21 13:20 MPV 12.3 fL (7.4-10.4) H 08/24/21 13:20 Neut % (Auto) 84.4 % 08/24/21 13:20 Lymph % (Auto) 6.8 % 08/24/21 13:20 Dickson % (Auto) 7.2 % 08/24/21 13:20 Eos % (Auto) 0.0 % 08/24/21 13:20 Baso % (Auto) 0.4 % 08/24/21 13:20 Neut # (Auto) 11.46 10^3/uL (1.8-7.7) H 08/24/21 13:20 Lymph # (Auto) 0.9 10^3/uL (0.8-4.8) 08/24/21 13:20 Dickson # (Auto) 1.0 10^3/uL (0.2-0.9) H 08/24/21 13:20 Eos # (Auto) 0.0 10^3/uL (0.0-0.8) 08/24/21 13:20 Baso # (Auto) 0.1 10^3/uL (0.0-0.1) 08/24/21 13:20 Nucleated RBC % (auto) 0 % 08/24/21 13:20 Nucleated RBCs # 0.0 /100WBC 08/24/21 13:20 Sodium 141 mmol/L (136-145) 08/24/21 12:58 Potassium 3.8 mmol/L (3.5-5.1) 08/24/21 12:58 Chloride 107 mmol/L (98-107) 08/24/21 12:58 Carbon Dioxide 18 mmol/L (22-29) L 08/24/21 12:58 Anion Gap 19.8 (5-19) H 08/24/21 12:58 BUN 22 mg/dL (6-20) H 08/24/21 12:58 Creatinine 1.2 mg/dL (0.5-0.9) H 08/24/21 12:58 GFR Calculation 50.0 mL/min (90-130) L 08/24/21 12:58 Glucose 115 mg/dL (65-115) 08/24/21 12:58 Calculated Osmolality 296 mOsm/kg (285-295) H 08/24/21 12:58 Lactate 3.1 mmol/L (0.5-2.2) H 08/24/21 12:58 Calcium 8.8 mg/dL (8.5-10.5) 08/24/21 12:58 Total Bilirubin 0.8 mg/dL (0.15-1.2) 08/24/21 12:58 AST 63 U/L (0-32) H 08/24/21 12:58 ALT 61 U/L (0-33) H 08/24/21 12:58 Alkaline Phosphatase 179 IU/L (35-105) H 08/24/21 12:58 Ammonia 13 umol/L (11-51) 08/24/21 13:20 Troponin T Baseline 34 ng/L (0-10) H 08/24/21 12:58 NT-Pro-B Natriuret Pep 1211 pg/mL (0-125) H 08/24/21 12:58 Total Protein 6.2 g/dL (6.6-8.7) L 08/24/21 12:58 Albumin 3.5 g/dL (3.5-5.2) 08/24/21 12:58 Globulin 2.7 g/dL (1.3-4.6) 08/24/21 12:58 Lipase 12 U/L (13-60) L 08/24/21 12:58 HCG, Qual Negative (Negative) 08/24/21 13:20 Imaging Data Other Imaging: Radiologist's impression: [address] [place] [address] CT Scan Report Signed Patient: Precious Mckeon Unit #: [id number] : 1980 Age/Sex: 40 / F ADM Date: 08/24/21 Loc: ER Room/Bed: Attending Dr: Ordering Provider/Ordering MD: Lesia Ariza MD Date of Service: 08/24/21 Procedure(s): CT angio chest w abd pel w con Accession Number(s): [id number] Report Number: [id number] WS: [id number] CTA CHEST ABDOMEN AND PELVIS TECHNIQUE: Noncontrast plus contrast enhanced CTA of the chest, abdomen, and pelvis with coronal and sagittal reformatted images and additional MIP Images. CLINICAL INFORMATION: hypotension, prior PE, abd pain COMPARISON: May 24, 2021 DLP: 1007.[address] scans at [facility] use at least one of these dose optimization techniques: automated exposure control; mA and/or kV adjustment per patient size (includes targeted exams where dose is matched to clinical indication); or iterative reconstruction. FINDINGS: Some images degraded by breathing artifact and patient motion. Proximal main pulmonary arteries are normal. Normal segmental pulmonary arteries. Distal most pulmonary arteries not well evaluated. No evidence of pulmonary embolus. Improved aeration of both lungs compared to previous. Bibasilar atelectasis. Slight patchy infiltrates or atelectasis RIGHT lower lobe. Mild interstitial edema within both lungs. Slight hazy groundglass infiltrates within the RIGHT greater than LEFT upper lobes. No mediastinal or hilar lymphadenopathy. No axillary lymphadenopathy. CT ABDOMEN PELVIS: Mild diffuse fatty infiltration of the liver. Fluid distended gallbladder is similar to previous. Normal portal vein and splenic vein. Fatty atrophy of the pancreas. Normal spleen. Normal GE junction. Adrenal glands are normal. Normal renal parenchymal enhancement. No hydronephrosis. Normal caliber abdominal aorta. Cystic LEFT adnexal lesion similar to previous. Celiac and SMA appear patent. A few fluid-filled slightly prominent small bowel loops in the midabdomen. No evidence of high-grade obstruction. A few air-fluid levels in the colon. No free fluid in the pelvis. RIGHT pericentral disc osteophyte protrusion L5-S1 unchanged. CT/CT angio chest w abd pel w con IMPRESSION: ? 1.? No evidence of proximal pulmonary embolus. Images degraded by patient motion. 2.? Improved aeration of both lungs compared to previous. Slight residual hazy groundglass infiltrates in the upper lobes. Slight patchy infiltrates or atelectasis RIGHT lower lobe. 3. ? Diffuse fatty infiltration of the liver 4.? Fluid distended gallbladder similar to previous. 5.? Normal caliber abdominal aorta. 6.? Stable cystic lesion LEFT adnexa measuring 4.2 x 2.4 cm similar to previous 7.? Mild prominence of a few fluid-filled small bowel loops in the central abdomen. No evidence of high-grade obstruction. 8.? No other significant changes compared to previous. ? Dictated By: Brigido Hunter MD Signed By: Brigido Hunter MD Signed Date/Time: 08/24/21 1512 DD/ [address] [address] XRay Report Signed Patient: Precious Mckeon Unit #: [id number] : 1980 Age/Sex: 40 / F ADM Date: 08/24/21 Loc: ER Room/Bed: Attending Dr: Ordering Provider/Ordering MD: Lesia Ariza MD Date of Service: 08/24/21 Procedure(s): XR chest 1V portable [id number] Accession Number(s): [id number] Report Number: [id number] PROCEDURE INFORMATION: Exam: XR Chest Exam date and time: 08/24/2021 1:34 PM Age: 40 years old Clinical indication: Angina and other: Abdomen; Additional info: Hypotension, chest pain, abd pain TECHNIQUE: Imaging protocol: XR of the chest. Views: 1 view. COMPARISON: CR (CHEST, ) 05/24/2021 5:58 AM FINDINGS: Lungs: Unremarkable. No consolidation. Pleural spaces: Unremarkable. No pleural effusion. No pneumothorax. Heart/Mediastinum: Unremarkable. No cardiomegaly. Bones/joints: Unremarkable. XR/XR chest 1V portable [id number] IMPRESSION: No acute findings. ? Dictated By: Tony Lua Signed By: Tony Lua Signed Date/Time: 08/24/21 1413 DD/ 1334 Discharge Plan Discharge Patient Disposition: Admitted As Inpatient Clinical Impression: Tachycardia, Leukocytosis, Diarrhea, Hypotension Condition: Stable Coding Level of Care Code ED Overlock Waistline Joiner for Thai Fwd Exam Comprehensive
--- NOTE | 2021-08-24 13:08 | PC.NURSE ---
NO REPORT ASSUMED CARE OF PT.
--- NOTE | 2021-08-24 13:12 | PC.NURSE ---
PT PLACED ON CONTINUOUS SPO2, NIBP, AND CM.
[2021-08-24] MEDS: cefepime 1,000 MG in sodium chloride 0.9% (plus) 50 ML 100 MG IV (13:18)
[2021-08-24] MEDS: sodium chloride 0.9% 1,000 ML 999 ML IV ×3 (13:22→13:35)
--- NOTE | 2021-08-24 13:22 | PC.NURSE ---
2 L OF NS ADM BY NURSE PRIOR TO ME ASSUMING CARE.
[2021-08-24 13:29] LABS: Basophils # 0.1 10^3/uL (0.0-0.1); Basophils % 0.4 %; Hematocrit 36.6 % (37.0-47.0); Hemoglobin 11.5 g/dL (11.5-15.3); Lymphocytes # 0.9 10^3/uL (0.8-4.8); Lymphocytes % 6.8 %; Mean Corpuscular HGB Conc 31.4 g/dL (30.0-36.0); Mean Corpuscular Hemoglobin 29.3 pg (28.0-34.0); Mean Corpuscular Volume 93.1 fl (81-99); Mean Platelet Volume 12.3 fL (7.4-10.4); Monocytes % 7.2 %; Neutrophils # 11.46 10^3/uL (1.8-7.7); Neutrophils % 84.4 %; Nucleated Red Blood Cells % 0 %; Platelet Count 192 10^3/cmm (130-400); Red Blood Count 3.93 10^6/uL (4.1-5.3); Red Cell Distribution Width 12.6 % (12.1-15.1); White Blood Count 13.6 10^3/uL (4.0-10.0)
[2021-08-24] MEDS: vancomycin 1,000 MG in sodium chloride 0.9% 250 ML 250 MG IV (13:44)
[2021-08-24 13:45] LABS: Lactate (Lactic Acid level) 3.1 mmol/L (0.5-2.2)
--- NOTE | 2021-08-24 13:47 | PC.NURSE ---
DR. BISHOP IS AT BEDSIDE EXAMING PT AFTER LOW SPO2 SAT AND LOW BP.
[2021-08-24 13:49] LABS: Ammonia 13 umol/L (11-51)
--- NOTE | 2021-08-24 13:54 | PC.NURSE ---
NOTIFIED DR. BISHOP OF PT BP OF 75/35 HE VERBALIZED UNDERSTANDING VO TO CALL PHARMACY TO OBTAIN NOREPINEHPRINE DRIP. SPOKE WITH MALE FROM [facility] WHO STATED THAT IT WOULD BE MADE AVAILABLE IVONNE
[2021-08-24 13:56] LABS: Troponin(5th) Baseline 34 ng/L (0-10)
--- NOTE | 2021-08-24 13:58 | CT_ITS ---
WS: [id number] CTA CHEST ABDOMEN AND PELVIS TECHNIQUE: Noncontrast plus contrast enhanced CTA of the chest, abdomen, and pelvis with coronal and sagittal reformatted images and additional MIP Images. CLINICAL INFORMATION: hypotension, prior PE, abd pain COMPARISON: May 24, 2021 DLP: 1007.[address] scans at [facility] use at least one of these dose optimization techniques: automated e xposure control; mA and/or kV adjustment per patient size (includes targeted exams where dose is matc hed to clinical indication); or iterative reconstruction. FINDINGS: Some images degraded by breathing artifact and patient motion. Proximal main pulmonary arteries are normal. Normal segmental pulmonary arteries. Distal most pulmona ry arteries not well evaluated. No evidence of pulmonary embolus. Improved aeration of both lungs compared to previous. Bibasilar atelectasis. Slight patchy infiltrate s or atelectasis RIGHT lower lobe. Mild interstitial edema within both lungs. Slight hazy groundglass infiltrates within the RIGHT greater than LEFT upper lobes. No mediastinal or hilar lymphadenopathy. No axillary lymphadenopathy. CT ABDOMEN PELVIS: Mild diffuse fatty infiltration of the liver. Fluid distended gallbladder is similar to previous. Nor mal portal vein and splenic vein. Fatty atrophy of the pancreas. Normal spleen. Normal GE junction. A drenal glands are normal. Normal renal parenchymal enhancement. No hydronephrosis. Normal caliber abd ominal aorta. Cystic LEFT adnexal lesion similar to previous. Celiac and SMA appear patent. A few fluid-filled slig htly prominent small bowel loops in the midabdomen. No evidence of high-grade obstruction. A few air- fluid levels in the colon. No free fluid in the pelvis. RIGHT pericentral disc osteophyte protrusion L5-S1 unchanged. CT/CT angio chest w abd pel w con IMPRESSION: 1. No evidence of proximal pulmonary embolus. Images degraded by patient motio n. 2. Improved aeration of both lungs compared to previous. Slight residual hazy groundglass infiltrates in the upper lobes. Slight patchy infiltrates or atelec tasis RIGHT lower lobe. 3. Diffuse fatty infiltration of the liver 4. Fluid distended gallbladder similar to previous. 5. Normal caliber abdominal aorta. 6. Stable cystic lesion LEFT adnexa measuring 4.2 x 2.4 cm similar to previous 7. Mild prominence of a few fluid-filled small bowel loops in the central abdo men. No evidence of high-grade obstruction. 8. No other significant changes compared to previous.
[2021-08-24 14:02] LABS: HCG, Serum Qual Negative (Negative)
--- NOTE | 2021-08-24 14:04 | PC.NURSE ---
WHILE AT BEDSIDE PT STATES, I'M FEELING BETTER .
[2021-08-24 14:06] LABS: Alanine Aminotransferase 61 U/L (0-33); Albumin Level 3.5 g/dL (3.5-5.2); Alkaline Phosphatase 179 IU/L (35-105); Anion Gap 19.8 (5-19); Aspartate Amino Transferase 63 U/L (0-32); Blood Urea Nitrogen 22 mg/dL (6-20); Calcium 8.8 mg/dL (8.5-10.5); Carbon Dioxide 18 mmol/L (22-29); Chloride 107 mmol/L (98-107); Globulin 2.7 g/dL (1.3-4.6); Glucose 115 mg/dL (65-115); Lipase 12 U/L (13-60); NT Pro B Type Natriuretic Pept 1211 pg/mL (0-125); Osmolality Calculated 296 mOsm/kg (285-295); Potassium 3.8 mmol/L (3.5-5.1); Sodium 141 mmol/L (136-145); Total Bilirubin 0.8 mg/dL (0.15-1.2); Total Protein 6.2 g/dL (6.6-8.7)
--- NOTE | 2021-08-24 14:14 | PC.NURSE ---
DELAYED CT EXAM DT PT BP BEING BELOW NORMAL LIMITS. HE VERBALIZED UNDERSTANDING AND VO TO TRANSPORT TO CT WHEN BP IS WNL.
[2021-08-24] MEDS: iohexol 300 mg/mL 100 mL Btl IV (14:41)
--- NOTE | 2021-08-24 14:58 | ECG_ITS ---
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 Measurements Intervals [place] Rate: 113 P: 71 IA: 172 QRS: 78 QRSD: 73 T: 68 QT: 338 QTc: 464 Interpretive Statements SINUS TACHYCARDIA NONSPECIFIC T-WAVE ABNORMALITY ABNORMAL RHYTHM ECG Compared to ECG 08/24/2021 12:48:59 No significant changes Electronically Signed On 08-24-2021 16:35:09 CDT by Mushtaq Redman M.D. [id number]
--- NOTE | 2021-08-24 16:04 | PC.NURSE ---
REPORT GIVEN TO EDDY GÓMEZ.
[2021-08-24 16:27] LABS: Troponin 5 2HR 25.68 ng/L (0-10)
[2021-08-24 16:28] LABS: Troponin 5 2HR Delta -8.32 ABS# (0-10)
--- NOTE | 2021-08-24 17:07 | PM.HP ---
Providers/Chief Complaint Admitting Physician: Paresh Reese MD Primary Care Provider: YAMIL Hoffman Chief Complaint: PCP sent for High HR History of Present Illness Precious Mckeon is a 40 year old female who was admitted in May for severe metabolic acidosis hypertriglyceridemia induced pancreatitis, she was intubated multiple times, suffered from cardiac arrest on 05/23 and then she was transferred with concern for invasive candidiasis, indication for ECMO to [facility] presented today with chief complaint of recurrent nausea vomiting and diarrhea. Mother is stating that at [facility] they spent 12 days, all the lines were removed and she was given Lasix only. After 12 days she was sent to the rehab. She was released from the rehab 6 weeks ago, she has been on antibiotics mother is not sure about for her decubitus ulcer. At [facility] decubitus ulcer was debrided. Today at 5 AM patient started experiencing emesis associated abdominal pain. She 6 episodes of emesis and 3 episodes of diarrhea. No fever, chest pain or shortness of breath. She ate her dinner yesterday, none of the household members are suffering from similar symptoms Nausea work-up in the ER revealed hypovolemic shock she was given 1 L of fluid, I have added 500 mL bolus which would be appropriate for BMI She had received cefepime in the ER, lactic acid is high, My concern is related to fluid collection in her small bowel, will place NG tube, repeat lactic acid, she is afebrile, She responded to 1 L bolus in the ER, she was put on low-dose norepinephrine which was titrated off, I have given her 500 mL bolus Requested another lactic acid which is late Review of Systems Const: Reports: body aches and fatigue; Denies: fever(s) Eyes: Denies: change in vision ENMT: Denies: throat pain Card: Denies: chest pain Resp: Denies: dyspnea GI: Reports: abdominal pain, nausea, vomiting and diarrhea : Denies: flank pain Musc: Denies: neck pain Skin/Breast: Denies: rash Neuro: Denies: headache(s) Psych: Reports: anxiety Endo: Denies: polyuria Arturo/Lymph: Denies: easy bruising All/Imm: Denies: urticaria Medications/Allergies Home Medications Medication Instructions Recorded Confirmed Last Taken Type spironolactone 50 mg tablet 50 mg PO BID #180 tab 01/30/21 08/24/21 08/23/21 Rx ondansetron 4 mg disintegrating 4 mg PO Q8H PRN #20 tab 04/17/21 08/24/21 Unknown Rx tablet apixaban 5 mg tablet (Eliquis) 5 mg PO BID 08/24/21 08/24/21 08/16/21 History citalopram 20 mg tablet 20 mg PO QAM 08/24/21 08/24/21 08/23/21 History fenofibrate nanocrystallized 145 145 mg PO QAM 08/24/21 08/24/21 08/23/21 History mg tablet hydrochlorothiazide 25 mg tablet 25 mg PO QAM 08/24/21 08/24/21 08/23/21 History metformin 1,000 mg tablet 500 mg PO BID 08/24/21 08/24/21 08/23/21 History metoprolol succinate 50 mg 50 mg PO QAM 08/24/21 08/24/21 08/23/21 History tablet,extended release 24 hr (Toprol XL) sodium hypochlorite 0.125 % 1 applic TOPICAL DAILY 08/24/21 08/24/21 Unknown History solution (Dakin's Solution) Allergies Allergy/AdvReac Type Severity Reaction Status Date / Time No Known Allergies Allergy Verified 08/24/21 13:28 PFSH Acute PFSH: Medical History Acute respiratory distress syndrome (ARDS) due to 2019 novel coronavirus ATN (acute tubular necrosis) B12 deficiency anemia COVID Essential hypertension GODFREY (generalized anxiety disorder) Hypertriglyceridemia Mild mental handicap No pertinent family history PCOS (polycystic ovarian syndrome) Pulmonary embolism Yeast detected Coco parapsilosis 04/29, endotracheal aspirate Trichosporosis ashai Surgical History No pertinent past surgical history Family History Father Cancer Social History Smoking and tobacco status: never smoked Alcohol intake: never History of recent travel: No Female Reproductive History: Date of last menstrual period: 04/09/21 Vitals/I&O/Wt Last Vital Signs Temp 99.8 F H 08/24/21 16:35 Pulse 116 H 08/24/21 16:35 Resp 24 H 08/24/21 16:35 BP 112/79 08/24/21 16:35 Pulse Ox 98 08/24/21 16:35 08/24/21 08/24/21 08/24/21 06:59 14:59 22:59 Intake Total 0 / 0 28.575 / 28.575 Balance 0 / 0 28.575 / 28.575 Weight last 48 hrs Weight 47.174 kg Weight 47.174 kg Physical Exam Narrative: Patient is looking euvolemic Bilateral breath sound without adventitious rhonchi or crackles Abdomen is tender midepigastric region Nonpitting edema of legs Patient is awake and alert, nonfocal neuro exam Patient is anxious Family is at the bedside S1, S2 sinus tachycardia Data : 08/24/21 13:20 08/24/21 12:58 A&P Assessment and plan (1) Tachycardia: Status: Acute (2) Leukocytosis: Status: Acute (3) Diarrhea: Status: Acute (4) Hypotension: Status: Acute (5) Emesis: Status: Acute (6) Enteritis: Status: Acute Plan Hypovolemic shock Dehydrated 6 episode of emesis, 3 episodes of diarrhea No fever Lactic acidemia secondary to dehydration: Second lactic acid is normal Patient responded well to 1 L fluid and use of low-dose vasopressin in the ER, I will give her 500 mL bolus as well, recheck lactic acid Started Zosyn Patient is reluctant for NG tube, asked nurse to place NG tube if there is another episode of emesis Leukocytosis could be stress leukemoid reaction, please note her white count was 13,000 as well in April Fluid in small bowel Cholestasis My concern is related to enteritis, rule out pancreatitis, check triglyceride and lipase level We will keep her n.p.o. NG tube to be placed For enteritis we will keep her on Zosyn Acute on chronic kidney disease, seems to be related to sepsis and dehydration Of note her new baseline seems to be around 1-1.2 as well Monitor for now Groundglass opacities in the lung could be residual changes from her previous aspiration pneumonia and also 3 intubations, monitor for now, per mother she has not choked on her vomitus currently saturating well on room air Troponin trending down no cardiac pain Full code N.p.o. DVT prophylaxis continue heparin Vitamin B12 deficiency anemia Attestations Medical Necessity Statement*: Anticipating more than 2 midnights management of hypovolemic shock Time Spent in Patient Care: 40mins Coding Level of Care Code Acute Sterile Processing Technician for Chg Fwd Diagnoses Tachycardia R00.0 Leukocytosis D72.829 Diarrhea R19.7 Hypotension I95.9 Emesis R11.10 Enteritis K52.9
[2021-08-24 18:07] LABS: Lactate (Lactic Acid level) 2.2 mmol/L (0.5-2.2)
[2021-08-24 18:19] LABS: Procalcitonin 11.01 ng/mL (0-0.5); Thyroid Stimulating Hormone 3.73 uIU/mL (0.27-4.20)
[2021-08-24] MEDS: piperacillin-tazobactam 3.375 GM in sodium chloride 0.9% (plus) 50 ML IV (18:26)
[2021-08-24] MEDS: apixaban 5 mg Tablet PO (18:26)
[2021-08-24] MEDS: sodium chloride 0.9% 1,000 ML 75 ML IV (18:27)
[2021-08-24 18:42] LABS: Lipase 9 U/L (13-60); Triglycerides 165 mg/dL (0-150)
[2021-08-24] MEDS: ondansetron 2 mg/ML SDV 2 mL 4 MG IVP (18:54)
[2021-08-24] MEDS: heparin 5,000 unit/mL INJ 1 mL 5000 UNIT SUBCUT (19:35)
[2021-08-24 21:31] LABS: Add Urine Microscopic? NO; Charge for UA Resulting for Rev
[2021-08-24] MEDS: sodium hypochlorite 0.125% Btl 473 mL 1 APPLIC TOPICAL (21:31)
[2021-08-24 21:34] LABS: Bilirubin Urine Neg (Negative); Blood Urine Neg (Negative); Glucose Urine UA Norm (Normal); Ketones Urine Negative (Negative); Leukocyte Esterase Urine Negative (Negative); Nitrate Urine Negative (Negative); Protein Urine Neg (Negative); Urine Appearance Clear (CLEAR); Urine Color Yellow (Yellow); Urobilinogen Urine Norm (Negative); pH Urine 5 (5-7)
[2021-08-25] VITALS (98 sets, daily range): BP systolic 79–139; BP diastolic 46–96; PULSE 72–101; RESP 6–31; TEMP 36.7–37.1; O2SAT 85–100; BMI 22.2
[2021-08-25] MEDS: piperacillin-tazobactam 3.375 GM in sodium chloride 0.9% (plus) 50 ML IV ×3 (01:15→17:48)
[2021-08-25 04:21] LABS: Basophils # 0.1 10^3/uL (0.0-0.1); Basophils % 0.6 %; Eosinophils # 0.1 10^3/uL (0.0-0.8); Eosinophils % 0.6 %; Hematocrit 32.7 % (37.0-47.0); Hemoglobin 10.5 g/dL (11.5-15.3); Lymphocytes # 2.6 10^3/uL (0.8-4.8); Lymphocytes % 18.1 %; Mean Corpuscular HGB Conc 32.1 g/dL (30.0-36.0); Mean Corpuscular Hemoglobin 29.4 pg (28.0-34.0); Mean Corpuscular Volume 91.6 fl (81-99); Mean Platelet Volume 12.3 fL (7.4-10.4); Monocytes # 1.2 10^3/uL (0.2-0.9); Monocytes % 8.4 %; Neutrophils % 71.3 %; Nucleated Red Blood Cells % 0 %; Platelet Count 179 10^3/cmm (130-400); Red Blood Count 3.57 10^6/uL (4.1-5.3); Red Cell Distribution Width 12.7 % (12.1-15.1); White Blood Count 14.4 10^3/uL (4.0-10.0)
[2021-08-25 04:44] LABS: Anion Gap 16.6 (5-19); Blood Urea Nitrogen 20 mg/dL (6-20); Calcium 7.8 mg/dL (8.5-10.5); Carbon Dioxide 18 mmol/L (22-29); Chloride 112 mmol/L (98-107); Glomerular Filtration Rate 79.9 mL/min (90-130); Glucose 81 mg/dL (65-115); Magnesium 1.1 mg/dL (1.7-2.3); Osmolality Calculated 296 mOsm/kg (285-295); Potassium 4.6 mmol/L (3.5-5.1); Sodium 142 mmol/L (136-145)
[2021-08-25] MEDS: heparin 5,000 unit/mL INJ 1 mL 5000 UNIT SUBCUT ×2 (06:02→17:49)
[2021-08-25] MEDS: magnesium sulfate premix 2 GM/50 ML PIGGYBACK IV (06:02)
[2021-08-25] MEDS: dextrose 5%-sod chloride 0.9% 1,000 ML 75 ML IV (06:05)
[2021-08-25] MEDS: calcium gluconate 0.9% NaCL 1 GM/50 ML PREMIX IV (08:15)
--- NOTE | 2021-08-25 09:52 | PC.CHAP ---
Pastoral Care Encounter/Spiritual Assessment Type of Contact [] Declined special tester visit [] Patient/Family/Request visit [] Outpatient visit [] Follow-up visit [] Physician referral [] Code/Alert [x] Routine visit [] Staff referral [] Actively dying [] Patient sleeping [x] Family support [] [] Out of room [] Palliative care [] [] Receiving care in room [] Pre-surgical visit [] Trauma [] Long length of stay [x] ICU visit [] Other: Relational/Emotional Strength [] Patient feels connected with others/family/visitors/staff [] Distress [] Loneliness/isolation [] Abandonment Spirituality of Patient [] Person of Emelina [] Attends Yazdanism of their Emelina [] Believes in Prayer [] Reads Bible or Congregational materials [] There are Spiritual issues to be addressed Toxicology Teacher Interventions [x] Prayer [x] Active listening [x] Non-anxious presence [x] Spiritual/emotional support [] Crisis/trauma care [] Spiritual counseling [] Bereavement support [] Provided bereavement packet [] Provided Bible/devotional materials [] Provided toy/stuffed animal, coloring book to patient or family member [] Provided Communion [] Anointing/Nitro [] Salvation [x] Completed spiritual assessment [] Other: Impact on Illness or Injury [] Angry [] Fearful [] Anxious [] Often cries [] Exhaustion [] Unable to work [] Unable to attend buddhism [] Unable to walk/stand [] Unable to read [] Unable to drive [] Unable to eat/drink [] Unable to sleep [] Unable to be with family [] Patient intubated [] Other: Summary patient experiencing issues with tummy... family stay present with her at all times.... Time spent with patient 10 min
--- NOTE | 2021-08-25 11:27 | PC.NURSE ---
Patient states she fells better today and did not have nausea over night. Patient consumed clear liquid diet and requested more broth and jello, which was provided. Patient appears in good spirits and is enjoying crossword puzzles at bedside. Family at bedside through night did not have any questions for Dr. Reese this morning when asked by this nurse.
--- NOTE | 2021-08-25 13:33 | PM.PN ---
Subjective Subjective: This morning Ms. Clay is endorsing feeling better No more diarrhea or emesis Worsening of leukocytosis noted She did not receive daily Tylenol as per the nursing staff However there is a 1 reading of 100.4 overnight While asleep her pressure was soft Levophed was started this morning, I have requested nurse to turn it off in the next few hours and if he stays MAP above 65 we can transfer her out of ICU if needed No signs of pancreatitis triglyceride not above 500 Magnesium repleted Patient is endorsing feeling better Family is at the bedside TSH normal Procalcitonin is high C. difficile negative Vitals/I&O/Wt Last Vital Signs Temp 98.7 F 08/25/21 07:15 Pulse 88 08/25/21 12:45 Resp 15 08/25/21 12:45 BP 108/71 08/25/21 12:45 Pulse Ox 94 08/25/21 12:45 08/24/21 08/25/21 08/25/21 22:59 06:59 14:59 Intake Total 2378.575 / 2378.575 921 / 3299.575 990 / 990 Output Total 300 / 300 200 / 500 500 / 500 Balance 2078.575 / 2078.575 721 / 2799.575 490 / 490 Weight last 48 hrs Weight 50.031 kg Weight 47.174 kg Weight 47.174 kg Physical Exam Narrative: Patient was laying flat Saturating well on room air Family at the bedside Signs of dehydration improving Abdomen slightly tender on deep palpation right lower quadrant Otherwise abdomen is soft no signs of guarding rigidity or peritonitis No signs of edema of legs Awake and alert Saturating well on room air Currently on low-dose dose of levo Data : 08/25/21 04:09 08/25/21 04:09 Micro: Microbiology 08/25/21 07:47 Blood Culture - Preliminary Blood SPECIMEN COLLECTED 08/25/21 07:41 Blood Culture - Preliminary Blood SPECIMEN COLLECTED 08/25/21 03:36 C.difficile Toxin B Gene (PCR) - Final Stool - Stool Aspirate A&P Assessment and plan (1) Enteritis: Status: Acute (2) Emesis: Status: Acute (3) Tachycardia: Status: Acute (4) Leukocytosis: Status: Acute (5) Diarrhea: Status: Acute (6) Hypotension: Status: Acute (7) Hypovolemic shock: Status: Acute Plan Hypovolemic shock While asleep her map was low Levophed were started I have requested nurse to wean it off today TSH is normal Responds very well to IV fluids, avoid vasopressors for now onwards Enteritis Continue Zosyn C. difficile negative Noticed worsening of leukocytosis Because of high procalcitonin level I have requested blood cultures, Her presentation is more consistent with hypovolemic shock instead of sepsis Groundglass opacities and right lower lung base atelectasis Currently saturating well on room air No active shortness of breath or cough Acute on chronic kidney injury improved with IV fluid hydration Metabolic acidosis improved after improvement in blood pressure with IV fluids Hypocalcemia We will give 1 g calcium gluconate He does carry history of vitamin D deficiency Advance diet as tolerated Advance her to full liquid Full code DVT prophylaxis Heparin Attestations Medical Necessity Statement*: She might be able to get out of ICU if pressure stays fine off vasopressors Time Spent in Patient Care: 30min Coding Level of Care Code Acute Mainspring Torque Tester for g Fwd Diagnoses Enteritis K52.9 Emesis R11.10 Tachycardia R00.0 Leukocytosis D72.829 Diarrhea R19.7 Hypotension I95.9 Hypovolemic shock R57.1
[2021-08-25] MEDS: sodium chloride 0.9% 1,000 ML 75 ML IV (14:50)
--- NOTE | 2021-08-25 18:41 | PC.NURSE ---
Patient states she feels much better today and has not had nausea. Ambulates with standby assistance. Currently up to chair with family at bedside. Uneventful shift.
[2021-08-25] MEDS: sodium hypochlorite 0.125% Btl 473 mL 1 APPLIC TOPICAL (21:02)
[2021-08-26] VITALS (50 sets, daily range): BP systolic 93–142; BP diastolic 59–102; PULSE 57–105; RESP 12–29; TEMP 36.8; O2SAT 64–100
[2021-08-26] MEDS: piperacillin-tazobactam 3.375 GM in sodium chloride 0.9% (plus) 50 ML IV ×3 (01:02→18:11)
[2021-08-26 03:50] LABS: Basophils # 0.1 10^3/uL (0.0-0.1); Basophils % 0.9 %; Eosinophils # 0.3 10^3/uL (0.0-0.8); Eosinophils % 4.8 %; Hematocrit 31.3 % (37.0-47.0); Hemoglobin 9.8 g/dL (11.5-15.3); Lymphocytes # 1.8 10^3/uL (0.8-4.8); Lymphocytes % 26.9 %; Mean Corpuscular HGB Conc 31.3 g/dL (30.0-36.0); Mean Corpuscular Hemoglobin 28.9 pg (28.0-34.0); Mean Corpuscular Volume 92.3 fl (81-99); Mean Platelet Volume 12.1 fL (7.4-10.4); Monocytes # 0.5 10^3/uL (0.2-0.9); Monocytes % 7.9 %; Neutrophils # 4.03 10^3/uL (1.8-7.7); Neutrophils % 59.2 %; Nucleated Red Blood Cells % 0 %; Platelet Count 186 10^3/cmm (130-400); Red Blood Count 3.39 10^6/uL (4.1-5.3); Red Cell Distribution Width 12.8 % (12.1-15.1); White Blood Count 6.8 10^3/uL (4.0-10.0)
[2021-08-26] MEDS: sodium chloride 0.9% 1,000 ML 75 ML IV ×2 (03:51→18:11)
[2021-08-26 04:31] LABS: Procalcitonin 3.01 ng/mL (0-0.5)
[2021-08-26 04:42] LABS: Blood Urea Nitrogen 13 mg/dL (6-20); Calcium 7.9 mg/dL (8.5-10.5); Carbon Dioxide 17 mmol/L (22-29); Chloride 110 mmol/L (98-107); Glomerular Filtration Rate 93.2 mL/min (90-130); Glucose 83 mg/dL (65-115); Osmolality Calculated 287 mOsm/kg (285-295); Sodium 139 mmol/L (136-145)
[2021-08-26] MEDS: heparin 5,000 unit/mL INJ 1 mL 5000 UNIT SUBCUT ×2 (05:29→18:12)
[2021-08-26] MEDS: potassium chloride oral liq 20 mEq/15 mL UDC 40 MEQ PO (09:32)
[2021-08-26] MEDS: calcium carb-vit d 500mg-200unit 1 Tablet 1 EACH PO (09:32)
[2021-08-26] MEDS: pantoprazole DR 40 mg Tablet PO (09:32)
--- NOTE | 2021-08-26 09:41 | P.PN_ITS ---
Subjective Subjective: This morning patient is endorsing feeling better, advance her diet Potassium repleted Transfer out of ICU, plan to discharge her tomorrow I have turned off her oxygen She is saturating well on room air She had 3 semisolid bowel movement yesterday Abdominal pain has resolved Signs of dehydration improved No signs of fever or sepsis Vitals/I&O/Wt Last Vital Signs Temp 98.4 F 08/25/21 20:00 Pulse 73 08/26/21 08:00 Resp 16 08/26/21 08:00 BP 114/77 08/26/21 06:15 Pulse Ox 99 08/26/21 08:00 08/25/21 08/26/21 08/26/21 22:59 06:59 14:59 Intake Total 650 / 2362.929 1026.25 / 3389.179 Output Total 400 / 900 600 / 1500 Balance 250 / 1462.929 426.25 / 1889.179 Weight last 48 hrs Weight 50.031 kg Weight 47.174 kg Weight 47.174 kg Physical Exam Narrative: Patient is euvolemic Very pleasant cooperative Nonfocal neuro exam Abdomen soft No signs of edema She is saturating well on room air S1, S2 Hemodynamically stable Data : 08/26/21 03:20 08/26/21 03:20 Micro: Microbiology 08/25/21 07:47 Blood Culture - Preliminary Blood NEGATIVE TO DATE 08/25/21 07:41 Blood Culture - Preliminary Blood NEGATIVE TO DATE 08/24/21 18:37 MRSA Culture - Final Nose 08/25/21 03:36 C.difficile Toxin B Gene (PCR) - Final Stool - Stool Aspirate A&P Assessment and plan (1) Hypovolemic shock: Status: Acute (2) Enteritis: Status: Acute (3) Emesis: Status: Acute (4) Tachycardia: Status: Acute (5) Leukocytosis: Status: Acute (6) Diarrhea: Status: Acute Plan Enteritis Hypovolemic shock: Resolved Continue IV fluids and antibiotics Advance diet Hypokalemia: Repleted transfer out of ICU Discharge tomorrow No signs of sepsis She has stayed afebrile 1 event of temperature 100.4 which resolved without use of Tylenol, I question the validity of that one-time reading She is full code DVT prophylaxis on board Holding hydrochlorothiazide Attestations Medical Necessity Statement*: Transfer out of ICU Time Spent in Patient Care: 30 Coding Level of Care Code Acute Gasoline Pump Mechanic for Chg Fwd Diagnoses Hypovolemic shock R57.1 Enteritis K52.9 Emesis R11.10 Tachycardia R00.0 Leukocytosis D72.829 Diarrhea R19.7
--- NOTE | 2021-08-26 10:09 | PC.CHAP ---
Pastoral Care Encounter/Spiritual Assessment Type of Contact [] Declined marketing intelligence analyst visit [] Patient/Family/Request visit [] Outpatient visit [] Follow-up visit [] Physician referral [] Code/Alert [x] Routine visit [] Staff referral [] Actively dying [] Patient sleeping [x] Family support [] [] Out of room [] Palliative care [] [x] Receiving care in room [] Pre-surgical visit [] Trauma [] Long length of stay [x] ICU visit [] Other: Relational/Emotional Strength [] Patient feels connected with others/family/visitors/staff [] Distress [] Loneliness/isolation [] Abandonment Spirituality of Patient [] Person of Emelina [] Attends Mormonism of their Emelina [] Believes in Prayer [] Reads Bible or Nondenominational materials [] There are Spiritual issues to be addressed Hoof Trimmer Interventions [x] Prayer [x] Active listening [x] Non-anxious presence [x] Spiritual/emotional support [] Crisis/trauma care [] Spiritual counseling [] Bereavement support [] Provided bereavement packet [] Provided Bible/devotional materials [] Provided toy/stuffed animal, coloring book to patient or family member [] Provided Communion [] Anointing/[place] [] Salvation [x] Completed spiritual assessment [] Other: Impact on Illness or Injury [] Angry [] Fearful [] Anxious [] Often cries [] Exhaustion [] Unable to work [] Unable to attend tenriism [] Unable to walk/stand [] Unable to read [] Unable to drive [] Unable to eat/drink [] Unable to sleep [] Unable to be with family [] Patient intubated [] Other: Summary good spirits.. possibly going home tomorrow.. Time spent with patient
--- NOTE | 2021-08-26 11:00 | PC.NURSE ---
Pt's parents assist pt to BSC. Mother empties urine. Encouraged mother to allow us to measure urine prior to disposal. Dressing and packing changed this am per order. Upon an isolated incontinent BM episode, dressing was displaced. Packing was soiled. Will redress per order. Pt tolerated all events well.
[2021-08-27] VITALS: BP 115/70; PULSE 80; RESP 16; TEMP 36.7; O2SAT 93
[2021-08-27] MEDS: piperacillin-tazobactam 3.375 GM in sodium chloride 0.9% (plus) 50 ML IV (01:39)
[2021-08-27 04:00] VITALS: BP 117/81; PULSE 76; RESP 16; TEMP 36.4; O2SAT 96
[2021-08-27] MEDS: heparin 5,000 unit/mL INJ 1 mL 5000 UNIT SUBCUT (05:48)
[2021-08-27 05:49] LABS: Basophils # 0.1 10^3/uL (0.0-0.1); Basophils % 1.4 %; Eosinophils # 0.4 10^3/uL (0.0-0.8); Eosinophils % 8.2 %; Hematocrit 34.2 % (37.0-47.0); Hemoglobin 11.1 g/dL (11.5-15.3); Lymphocytes # 1.9 10^3/uL (0.8-4.8); Lymphocytes % 44.5 %; Mean Corpuscular HGB Conc 32.5 g/dL (30.0-36.0); Mean Corpuscular Hemoglobin 29.3 pg (28.0-34.0); Mean Corpuscular Volume 90.2 fl (81-99); Mean Platelet Volume 12.6 fL (7.4-10.4); Monocytes # 0.4 10^3/uL (0.2-0.9); Monocytes % 10.3 %; Neutrophils % 34.9 %; Nucleated Red Blood Cells % 0 %; Platelet Count 188 10^3/cmm (130-400); Red Blood Count 3.79 10^6/uL (4.1-5.3); Red Cell Distribution Width 12.6 % (12.1-15.1); White Blood Count 4.3 10^3/uL (4.0-10.0)
[2021-08-27 06:20] LABS: Anion Gap 14.8 (5-19); Blood Urea Nitrogen 9 mg/dL (6-20); Calcium 8.3 mg/dL (8.5-10.5); Carbon Dioxide 16 mmol/L (22-29); Chloride 112 mmol/L (98-107); Glomerular Filtration Rate 137.4 mL/min (90-130); Glucose 82 mg/dL (65-115); Osmolality Calculated 286 mOsm/kg (285-295); Potassium 3.8 mmol/L (3.5-5.1); Sodium 139 mmol/L (136-145)
[2021-08-27 07:44] VITALS: BP 131/88; PULSE 69; RESP 12; TEMP 36.9; O2SAT 98
[2021-08-27] MEDS: pantoprazole DR 40 mg Tablet PO (09:23)
[2021-08-27] MEDS: calcium carb-vit d 500mg-200unit 1 Tablet 1 EACH PO (09:23)
[2021-08-27 09:39] VITALS: PULSE 69; RESP 16; O2SAT 95
--- NOTE | 2021-08-27 09:44 | PC.NURSE ---
Spoke with Dr. Reese regarding antibiotic administration via VOAL[facility] and he said he was discharging the patient, so i did not administer the IV antibiotic.
[2021-08-27 09:46] VITALS: PULSE 69; RESP 16; O2SAT 95
--- NOTE | 2021-08-27 11:14 | PM.DCS ---
Discharge Providers Date of Admission: 08/24/21 15:57 Date of Discharge: August 27, 2021 Attending Provider at Admission: Paresh Reese MD Attending Provider at Discharge: Paresh Reese MD Primary Care Provider: YAMIL Hoffman Diagnoses at Discharge Discharge Diagnosis (1) Hypovolemic shock: Status: Acute (2) Enteritis: Status: Acute (3) Emesis: Status: Acute (4) Tachycardia: Status: Acute (5) Leukocytosis: Status: Acute (6) Diarrhea: Status: Acute Reason for Visit Reason for Visit: PCP sent for High HR Hospital Course Hospital Course Precious Mckeon is a 40 year old female who was admitted in May for severe metabolic acidosis hypertriglyceridemia induced pancreatitis, she was intubated multiple times due to ARDS suffered from cardiac arrest on 05/23 and then she was transferred with concern for invasive candidiasis, possible indication for ECMO to [facility]. Mother stated that at [facility] they spent 12 days, she was treated for decubitus ulcer, all the lines were removed and she was given Lasix only.? After 12 days she was sent to the rehab.? She was released from the rehab 6 weeks ago, she has been on antibiotics, but mother is not sure about the name, she knows that indication was decubitus ulcer treatment.? She presented to the hospital with chief complaint of 6 episode of emesis and 3 episodes of diarrhea. She was diagnosed with metabolic acidosis related to lactic acidemia due to dehydration. She was treated as hypovolemic shock, her blood pressure improved with IV fluids and required vasopressors low-dose. Eventually we were able to wean her off vasopressors in just a matter of few hours, she did well with IV fluids, electrolytes were replenished. CT scan abdomen pelvis showed enteritis. No significant febrile events, leukocytosis improved. C. difficile panel negative. Her diet was advanced, no episodes of diarrhea or emesis. She did well on room air CT scan of chest findings reviewed as well, she is not requiring oxygen, she is not hypoxic, this could be result of 3 intubations in the past and aspiration pneumonia. I will discharge on potassium supplementation, discontinue hydrochlorothiazide and spironolactone, will give her a few more days of ciprofloxacin and Flagyl for enteritis. I will reduce the dose of metoprolol Physical Exam Narrative: Patient is euvolemic Very pleasant cooperative Nonfocal neuro exam Abdomen soft No signs of edema She is saturating well on room air S1, S2 Hemodynamically stable Discharge Data Studies Completed and Pending Completed Studies During Hospitalization Category Date Time Status CTA chest CT abdomen pelvis [CT angio chest w abd pel w Cat Scan 08/24/21 13:58 Completed con] Urgent XR chest 1V portable [id number] Urgent Exams 08/24/21 12:58 Completed Pending at discharge Category Date Time Status Blood Culture Stat Lab 08/25/21 07:47 Results Radiology Impressions Chest X-Ray 08/24/21 12:58 IMPRESSION: No acute findings. Chest/Abdomen/Pelvis CT 08/24/21 13:58 IMPRESSION: 1. No evidence of proximal pulmonary embolus. Images degraded by patient motion. 2. Improved aeration of both lungs compared to previous. Slight residual hazy groundglass infiltrates in the upper lobes. Slight patchy infiltrates or atelectasis RIGHT lower lobe. 3. Diffuse fatty infiltration of the liver 4. Fluid distended gallbladder similar to previous. 5. Normal caliber abdominal aorta. 6. Stable cystic lesion LEFT adnexa measuring 4.2 x 2.4 cm similar to previous 7. Mild prominence of a few fluid-filled small bowel loops in the central abdomen. No evidence of high-grade obstruction. 8. No other significant changes compared to previous. Laboratory Results WBC 4.3 10^3/uL (4.0-10.0) 08/27/21 04:40 RBC 3.79 10^6/uL (4.1-5.3) L 08/27/21 04:40 Hgb 11.1 g/dL (11.5-15.3) L 08/27/21 04:40 Hct 34.2 % (37.0-47.0) L 08/27/21 04:40 MCV 90.2 fl (81-99) 08/27/21 04:40 MCH 29.3 pg (28.0-34.0) 08/27/21 04:40 MCHC 32.5 g/dL (30.0-36.0) 08/27/21 04:40 RDW 12.6 % (12.1-15.1) 08/27/21 04:40 Plt Count 188 10^3/cmm (130-400) 08/27/21 04:40 MPV 12.6 fL (7.4-10.4) H 08/27/21 04:40 Neut % (Auto) 34.9 % 08/27/21 04:40 Lymph % (Auto) 44.5 % 08/27/21 04:40 Garrett % (Auto) 10.3 % 08/27/21 04:40 Eos % (Auto) 8.2 % 08/27/21 04:40 Baso % (Auto) 1.4 % 08/27/21 04:40 Neut # (Auto) 1.50 10^3/uL (1.8-7.7) L 08/27/21 04:40 Lymph # (Auto) 1.9 10^3/uL (0.8-4.8) 08/27/21 04:40 Garrett # (Auto) 0.4 10^3/uL (0.2-0.9) 08/27/21 04:40 Eos # (Auto) 0.4 10^3/uL (0.0-0.8) 08/27/21 04:40 Baso # (Auto) 0.1 10^3/uL (0.0-0.1) 08/27/21 04:40 Nucleated RBC % (auto) 0 % 08/27/21 04:40 Nucleated RBCs # 0.0 /100WBC 08/27/21 04:40 Sodium 139 mmol/L (136-145) 08/27/21 04:40 Potassium 3.8 mmol/L (3.5-5.1) 08/27/21 04:40 Chloride 112 mmol/L (98-107) H 08/27/21 04:40 Carbon Dioxide 16 mmol/L (22-29) L 08/27/21 04:40 Anion Gap 14.8 (5-19) 08/27/21 04:40 BUN 9 mg/dL (6-20) 08/27/21 04:40 Creatinine 0.5 mg/dL (0.5-0.9) 08/27/21 04:40 GFR Calculation 137.4 mL/min (90-130) H 08/27/21 04:40 Glucose 82 mg/dL (65-115) 08/27/21 04:40 Calculated Osmolality 286 mOsm/kg (285-295) 08/27/21 04:40 Lactate 2.2 mmol/L (0.5-2.2) 08/24/21 17:41 Calcium 8.3 mg/dL (8.5-10.5) L 08/27/21 04:40 Magnesium 1.1 mg/dL (1.7-2.3) L 08/25/21 04:09 Total Bilirubin 0.8 mg/dL (0.15-1.2) 08/24/21 12:58 AST 63 U/L (0-32) H 08/24/21 12:58 ALT 61 U/L (0-33) H 08/24/21 12:58 Alkaline Phosphatase 179 IU/L (35-105) H 08/24/21 12:58 Ammonia 13 umol/L (11-51) 08/24/21 13:20 Troponin T Baseline 34 ng/L (0-10) H 08/24/21 12:58 Troponin T 120 Minute 25.68 ng/L (0-10) H 08/24/21 15:29 Delta Troponin T -8.32 ABS# (0-10) L 08/24/21 15:29 NT-Pro-B Natriuret Pep 1211 pg/mL (0-125) H 08/24/21 12:58 Total Protein 6.2 g/dL (6.6-8.7) L 08/24/21 12:58 Albumin 3.5 g/dL (3.5-5.2) 08/24/21 12:58 Globulin 2.7 g/dL (1.3-4.6) 08/24/21 12:58 Triglycerides 165 mg/dL (0-150) H 08/24/21 17:41 Lipase 9 U/L (13-60) L 08/24/21 17:41 Procalcitonin 3.01 ng/mL (0-0.5) H 08/26/21 03:20 TSH 3.73 uIU/mL (0.27-4.20) 08/24/21 17:41 HCG, Qual Negative (Negative) 08/24/21 13:20 Urine Color Yellow (Yellow) 08/24/21 21:19 Urine Appearance Clear (CLEAR) 08/24/21 21:19 Urine pH 5 (5-7) 08/24/21 21:19 Ur Specific [place] 1.010 (1.005-1.030) 08/24/21 21:19 Urine Protein Neg (Negative) 08/24/21 21:19 Urine Glucose (UA) Norm (Normal) 08/24/21 21:19 Urine Ketones Negative (Negative) 08/24/21 21:19 Urine Blood Neg (Negative) 08/24/21 21:19 Urine Nitrate Negative (Negative) 08/24/21 21:19 Urine Bilirubin Neg (Negative) 08/24/21 21:19 Urine Urobilinogen Norm mg/dL (Negative) 08/24/21 21:19 Ur Leukocyte Esterase Negative (Negative) 08/24/21 21:19 Vitals Last Vital Signs Temp 98.4 F 08/27/21 07:44 Pulse 69 08/27/21 09:46 Resp 16 08/27/21 09:46 BP 131/88 08/27/21 07:44 Pulse Ox 95 08/27/21 09:46 Discharge Plan Discharge Patient Disposition: Home Health Service Condition: Stable Prescriptions: New metronidazole 500 mg tablet 500 mg PO BID 3 Days Qty: 6 0RF ciprofloxacin HCl 500 mg tablet 500 mg PO BID Qty: 6 0RF potassium chloride 10 mEq tablet,ER particles/crystals 10 meq PO DAILY Qty: 5 0RF Continued ondansetron 4 mg tablet,disintegrating 4 mg PO Q8H PRN (Reason: nausea and vomiting) Qty: 20 0RF citalopram 20 mg tablet 20 mg PO QAM 0RF Dakin's Solution 0.125 % solution 1 applic topical DAILY 0RF Rx Instructions: uses on buttocks (uses daily and prn) Eliquis 5 mg tablet 5 mg PO BID 0RF fenofibrate nanocrystallized 145 mg tablet 145 mg PO QAM 0RF Changed Toprol XL 50 mg tablet extended release 24 hr 25 mg PO QAM Qty: 30 0RF Rx Instructions: hold if sbp<90mmhg Discontinued spironolactone 50 mg tablet 50 mg PO BID Qty: 180 3RF metformin 1,000 mg tablet 500 mg PO BID 0RF hydrochlorothiazide 25 mg tablet 25 mg PO QAM 0RF Discharge Orders: Discharge Order (Routine); Ordered 08/27/21 Ordered By: Paresh Reese Referrals: [facility] [Outside] Harrell,YAMIL Larsen [Primary Care Provider] - 09/03/21 10:00 am Discharge Diet: GI Soft Discharge Activity: Increase activity as tolerated Patient Instructions: Opioid Safety Discharge Attestations Time Spent in Discharge Care*: less than 30 min Quality Metrics Clinical Quality Measures [ No reported AMI, CVA or VTE this stay] Coding Level of Care Code Acute Chg FW AR note Diagnoses Hypovolemic shock R57.1 Enteritis K52.9 Emesis R11.10 Tachycardia R00.0 Leukocytosis D72.829 Diarrhea R19.7
--- NOTE | 2021-08-27 11:39 | PC.SOCIAL ---
Pg 2 IMM Explained to pt's family Pg 2 IMM. no questions voiced. Provided pt a copy. Initialed, dated, & timed a copy & placed in chart.
== END 2021-08-27 11:30 | disposition home health service (06) | DRG 640 ==
LOC: ER 15:48 → ICU 16:10 → MEDSURG 08-26 18:49
PROVIDERS: Admitting Provider Internal Medicine; Emergency Provider Emergency Medicine; PCP Nurse Practitioner Family; Visit Provider Internal Medicine
DX: E86.0 Dehydration (principal); R57.1 Hypovolemic shock; N17.9 Acute kidney failure, unspecified; K52.9 Noninfective gastroenteritis and colitis, unspecified; I95.9 Hypotension, unspecified; E28.2 Polycystic ovarian syndrome; E78.1 Pure hyperglyceridemia; I12.9 Hypertensive chronic kidney disease with stage 1 through stage 4 chronic kidney disease, or unspecified chronic kidney disease; N18.9 Chronic kidney disease, unspecified; F32.A Depression, unspecified; Z86.16 Personal history of COVID-19; Z86.711 Personal history of pulmonary embolism; E87.2 Acidosis; E83.51 Hypocalcemia; Z79.01 Long term (current) use of anticoagulants
CPT/HCPCS: 36415; 71045; 71275; 74177; 80048; 80053; 81003; 82140; 83605; 83690; 83735; 83880; 84145; 84443; 84478; 84484; 84703; 85025; 87040; 87493; 87641; 93005; 96365; 96367; 96372; 99285; J0610; J0692; J1644; J2405; J2543; J3370; J3475; J7030; J7050; Q9967

== ENCOUNTER 2021-12-19 10:00 | Emergency (ER) | payer MEDICARE, MEDICAID, SELFPAY ==
[2021-12-19 10:17] VITALS: BMI 22.0
[2021-12-19 10:21] VITALS: BP 124/80; PULSE 72; RESP 18; TEMP 36.4; O2SAT 98
--- NOTE | 2021-12-19 10:31 | ECG_ITS ---
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 Measurements Intervals [place] Rate: 71 P: 72 TX: 147 QRS: 78 QRSD: 82 T: 63 QT: 388 QTc: 422 Interpretive Statements SINUS RHYTHM MODERATE ST DEPRESSION [0.05+ mV ST DEPRESSION] Compared to ECG 08/24/2021 15:01:58 ST (T wave) deviation now present Sinus tachycardia no longer present T-wave abnormality no longer present Electronically Signed On 12-20-2021 22:03:30 CDT by Ino East M.D. [id number]
--- NOTE | 2021-12-19 10:37 | XRR_ITS ---
PROCEDURE INFORMATION: Exam: XR Chest Exam date and time: 12/19/2021 11:06 AM Age: 41 years old Clinical indication: Pain; Chest pressure; Additional info: Chest pain TECHNIQUE: Imaging protocol: Radiologic exam of the chest. Views: 1 view. COMPARISON: CR XR chest 1V portable [id number] 08/24/2021 1:34 PM FINDINGS: Lungs: Poor inspiration. Decreased lung volumes. No pulmonary vascular congestion, pulmonary edema or pneumonia. Pleural spaces: No pleural effusion or pneumothorax. Heart/Mediastinum: The cardiac silhouette is not enlarged. The mediastinal contours are normal. Bones/joints: Slight S-shaped curvature of the thoracic spine. XR/XR chest 1V portable [id number] IMPRESSION: No acute finding.
[2021-12-19 11:04] LABS: Basophils # 0.1 10^3/uL (0.0-0.1); Basophils % 0.5 %; Eosinophils # 0.3 10^3/uL (0.0-0.8); Eosinophils % 1.9 %; Hemoglobin 13.3 g/dL (11.5-15.3); Lymphocytes # 3.3 10^3/uL (0.8-4.8); Lymphocytes % 23.6 %; Mean Corpuscular HGB Conc 32.4 g/dL (30.0-36.0); Mean Corpuscular Hemoglobin 29.6 pg (28.0-34.0); Mean Corpuscular Volume 91.3 fl (81-99); Mean Platelet Volume 11.3 fL (7.4-10.4); Neutrophils # 9.13 10^3/uL (1.8-7.7); Neutrophils % 65.9 %; Nucleated Red Blood Cells % 0 %; Platelet Count 299 10^3/cmm (130-400); Red Blood Count 4.49 10^6/uL (4.1-5.3); Red Cell Distribution Width 13.1 % (12.1-15.1); White Blood Count 13.9 10^3/uL (4.0-10.0)
--- NOTE | 2021-12-19 11:16 | ECG_ITS ---
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 Measurements Intervals [place] Rate: 63 P: 40 SC: 145 QRS: 31 QRSD: 79 T: 52 QT: 409 QTc: 420 Interpretive Statements SINUS RHYTHM Compared to ECG 12/19/2021 10:31:37 ST (T wave) deviation no longer present Electronically Signed On 12-20-2021 22:07:21 CDT by Ino East M.D. [id number]
[2021-12-19] MEDS: aspirin 81 mg Chew Tablet 324 MG PO (11:19)
[2021-12-19] MEDS: pantoprazole 40 mg SDV IVP (11:20)
--- NOTE | 2021-12-19 11:27 | ED_ITS ---
Documented by User: Hiwot Charles 12/19/21 11:31 HPI - Chest Pain General: Chief Complaint: Chest Pain Stated Complaint: Chest Pain Time Seen by Provider: 12/19/21 10:42 History of Present Illness: pt began complaining of CP at 2am; did not sleep per parents Review of Systems General: Reports: 10 or more systems reviewed and unremarkable except in HPI and below Card: Reports: chest pain PFS ED PFSH: Medical History Acute respiratory distress syndrome (ARDS) due to 2019 novel coronavirus ATN (acute tubular necrosis) B12 deficiency anemia COVID Diarrhea Essential hypertension GODFREY (generalized anxiety disorder) Hypertriglyceridemia Hypotension Leukocytosis Mild mental handicap No pertinent family history PCOS (polycystic ovarian syndrome) Pulmonary embolism Yeast detected Coco parapsilosis 04/29, endotracheal aspirate Trichosporosis ashai Surgical History No pertinent past surgical history Family History Father Cancer Social History Smoking and tobacco status: never smoked Alcohol intake: never History of recent travel: No Female Reproductive History: Date of last menstrual period: 04/09/21 Physical Exam Const: COMMON NORMALS: no acute distress, patient oriented x3, no limitations and alert GENERAL APPEARANCE: cooperative and comfortable ORIENTATION/CON SCIOUSNESS: Yes awake, Yes oriented to person, Yes oriented to place and Yes oriented to time HENMT: COMMON NORMALS: normocephalic, atraumatic, external ears normal, EAC's normal, TM's normal bilaterally and Normal external nose present HEAD & SCALP: normal to inspection, normocephalic and atraumatic FACE & SINUS: normal facial exam, sinuses nontender and face symmetric NOSE: Normal external nose present, Normal nares present and No nasal discharge present EXTERNAL EAR: Yes external ears normal EXTERNAL AUDITORY CANAL: EAC's normal TYMPANIC MEMBRANE: TM's normal bilaterally MOUTH: Normal oral and palatal mucosa present, lip normal and tongue normal THROAT: posterior oropharynx normal, tonsils normal and uvula midline Eye: COMMON NORMALS: Equal, round and reactive pupils present, EOMs intact bilaterally and conjunctivae normal GENERAL EYE: appearance normal, both eyes and all related structures and normal light reflex EYELID: eyelids normal CONJUNCTIVA: Yes conjunctivae normal PUPIL: Yes Equal, round and reactive pupils present EOM: Yes EOM abnormal DIRECT OPHTHALMOSCOPY: Yes normal lig ht reflex Neck/C-Spine: COMMON NORMALS: full ROM, no lymphadenopathy, supple, no meningeal signs, no JVD and Thyroid normal GENERAL: Yes normal visual inspection THYROID: Thyroid normal CERVICAL SPINE: Yes cervical ROM normal and Yes normal cervical lordosis Lymph: LYMPHATIC: no lymphadenopathy noted Chest: COMMONS NORMALS: normal inspection of the chest and normal palpation of entire chest wall Resp: COMMON NORMALS: normal respiratory effort, No retractions and clear to auscultation bilaterally AUSCULTATION: clear to auscultation bilaterally Cardio: COMMON NORMALS: no JVD, regular rate, regular rhythm, S1 normal heart sound present, S2 normal heart sound present, No gallops present (Cardio), No clicks present (Cardio), No murmurs present (Cardio), No rub (Cardio) and Peripheral pulses 2+ throughout RATE: regular rate RHYTHM: regular rhythm HEART SOUNDS: S1 normal heart sound present and S2 normal heart sound present PERIPHERAL PULSES: Peripheral pulses 2+ throughout GI: COMMON NORMALS: Normal to inspection, nondistended, normoactive bowel soun ds present, Soft to palpation, non-tender and no masses PALPATION: Yes Soft to palpation : COMMON NORMALS: Yes no CVA tenderness and Yes normal external appearance BLADDER/KIDNEY EXAM: Yes no CVA tenderness Back/Pelvis: COMMON NORMALS: no CVA tenderness, thoracic and lumbar spine normal to inspection, no thoracic nor lumbar tenderness and thoraco-lumbar ROM normal Extremity: COMMON NORMALS: normal to inspection, full ROM, capillary refill normal, no joint enlargement, no clubbing, cyanosis or edema, no calf tenderness and no pedal edema GENERAL: Yes normal exam except as noted Neuro: COMMON NORMALS: patient oriented x3, moves all extremities, no focal motor deficits, no sensory deficits noted and gait normal SENSORIUM/ORIENTATION: Yes alert, Yes oriented to person, Yes oriented to place and Yes oriented to time MENINGEAL SIGNS: Yes no meningeal signs Psych: COMMON NORMALS: mental status grossly normal, Normal thought process present, cooperative, normal affect, speech normal and activity/motor behavior normal SPEECH: Yes normal speech THOUGHT PROCESS: Normal thought process present Skin: COMMON NORMALS: no rashes or lesions noted, no wounds and turgor normal GENERAL SKIN EXAM: no rashes or lesions noted and turgor normal Course Vital Signs: Vital signs: Vital Signs Temperature 97.5 F L 12/19/21 10:21 Pulse Rate 82 12/19/21 15:30 Respiratory Rate 21 H 12/19/21 15:30 Blood Pressure 125/64 12/19/21 15:30 Pulse Oximetry 98 12/19/21 15:30 Oxygen Delivery Me thod 12/19/21 13:00 MDM - Chest Pain Medical Decision Making Pt has hx of severe COVID and presents to ER with complaints of CP; he symptoms resemble GERD as well and we will attempt protonix to see if we are able to eliminate indigestion as the cause of her CP as pt has notable learning disabilities and has a hard time verbalizing her pain. Lab Data : 12/19/21 10:53 12/19/21 10:53 Radiology Impressions Chest X-Ray 12/19/21 10:37 IMPRESSION: No acute finding. Laboratory Results WBC 13.9 10^3/uL (4.0-10.0) H 12/19/21 10:53 RBC 4.49 10^6/uL (4.1-5.3) 12/19/21 10:53 Hgb 13.3 g/dL (11.5-15.3) 12/19/21 10:53 Hct 41.0 % (37.0-47.0) 12/19/21 10:53 MCV 91.3 fl (81-99) 12/19/21 10:53 MCH 29.6 pg (28.0-34.0) 12/19/21 10:53 MCHC 32.4 g/dL (30.0-36.0) 12/19/21 10:53 RDW 13.1 % (12.1-15.1) 12/19/21 10:53 Plt Count 299 10^3/cmm (130-400) 12/19/21 10:53 MPV 11.3 fL (7.4-10.4) H 12/19/21 10:53 Neut % (Auto) 65.9 % 12/19/21 10:53 Lymph % (Auto) 23.6 % 12/19/21 10:53 [place] % (Auto) 7.0 % 12/19/21 10:53 Eos % (Auto) 1.9 % 12/19/21 10:53 Baso % (Auto) 0.5 % 12/19/21 10:53 Neut # (Auto) 9.13 10^3/uL (1.8-7.7) H 12/19/21 10:53 Lymph # (Auto) 3.3 10^3/uL (0.8-4.8) 12/19/21 10:53 [place] # (Auto) 1.0 10^3/uL (0.2-0.9) H 12/19/21 10:53 Eos # (Auto) 0.3 10^3/uL (0.0-0.8) 12/19/21 10:53 Baso # (Auto) 0.1 10^3/uL (0.0-0.1) 12/19/21 10:53 Nucleated RBC % (auto) 0 % 12/19/21 10:53 Nucleated RBCs # 0.0 /100WBC 12/19/21 10:53 Sodium 136 mmol/L (136-145) 12/19/21 10:53 Potassium 4.9 mmol/L (3.5-5.1) 12/19/21 10:53 Chloride 98 mmol/L (98-107) 12/19/21 10:53 Carbon Dioxide 26 mmol/L (22-29) 12/19/21 10:53 Anion Gap 16.9 (5-19) 12/19/21 10:53 BUN 16 mg/dL (6-20) 12/19/21 10:53 Creatinine 0.6 mg/dL (0.5-0.9) 12/19/21 10:53 GFR Calculation 110.7 mL/min (90-130) 12/19/21 10:53 Glucose 113 mg/dL (65-115) 12/19/21 10:53 Calculated Osmolality 284 mOsm/kg (285-295) L 12/19/21 10:53 Calcium 10.0 mg/dL (8.5-10.5) 12/19/21 10:53 Total Bilirubin 0.3 mg/dL (0.15-1.2) 12/19/21 10:53 AST 61 U/L (0-32) H 12/19/21 10:53 ALT 61 U/L (0-33) H 12/19/21 10:53 Alkaline Phosphatase 235 U/L (35-105) H 12/19/21 10:53 Troponin T Baseline 33 ng/L (0-10) H 12/19/21 10:53 Troponin T 120 Minute 28.70 ng/L (0-10) H 12/19/21 13:15 Delta Troponin T -4.30 ABS# (0-10) L 12/19/21 13:15 Total Protein 6.8 g/dL (6.6-8.7) 12/19/21 10:53 Albumin 3.7 g/dL (3.5-5.2) 12/19/21 10:53 Globulin 3.1 g/dL (1.3-4.6) 12/19/21 10:53 Discharge Plan Discharge Patient Disposition: Home Clinical Impression: Atypical chest pain, Acute epigastric pain Condition: Stable Prescriptions: New Protonix 40 mg tablet,delayed release (DR/EC) 40 mg PO DAILY Qty: 30 0RF No Action ondansetron 4 mg tablet,disintegrating 4 mg PO Q8H PRN (Reason: nausea and vomiting) Qty: 20 0RF citalopram 20 mg tablet 20 mg PO QAM Dakin's Solution 0.125 % solution 1 applic topical DAILY Rx Instructions: uses on buttocks (uses daily and prn) Eliquis 5 mg tablet 5 mg PO BID fenofibrate nanocrystallized 145 mg tablet 145 mg PO QAM ciprofloxacin HCl 500 mg tablet 500 mg PO BID Qty: 6 0RF potassium chloride 10 mEq tablet,ER particles/crystals 10 meq PO DAILY Qty: 5 0RF Toprol XL 50 mg tablet extended release 24 hr 25 mg PO QAM Qty: 30 0RF Rx Instructions: hold if sbp<90mmhg Discharge Orders: Discharge ED (Routine); Ordered 12/19/21 Ordered By: Shantell Harrell Referrals: Suzie Harrell FNP [Primary Care Provider] - Discharge Diet: As Directed Discharge Activity: Resume usual activity Patient Instructions: Chest Pain - Noncardiac, GERD (Gastroesophageal Reflux Disease) (ED), Abdominal Pain (ED) Activity Restrictions/Additional Instructions: Your evaluation today does not indicate any acute cardiac issue. Take Protonix as directed daily. You should follow-up with your primary care provider next week for reevaluation and continued monitoring. Return to the ER for any new or worsening symptoms, chest pain, shortness of breath. Sign Out Sign Out Data: Patient Sign Out occurred on 12/19/21 at 14:04. Patient's care was discussed, and care was transferred from to Smith Shanks DO. Coding Level of Care Code ED Grounds Keeper for Chg Fwd Exam Comprehensive Documented by User: SAYDA Campos 12/19/21 16:09 HPI - Chest Pain General: Chief Complaint: Chest Pain Stated Complaint: Chest Pain Time Seen by Provider: 12/19/21 10:42 [facility] ED PFSH: Medical History Acute respiratory distress syndrome (ARDS) due to 2019 novel coronavirus ATN (acute tubular necrosis) B12 deficiency anemia COVID Diarrhea Essential hypertension GODFREY (generalized anxiety disorder) Hypertriglyceridemia Hypotension Leukocytosis Mild mental handicap No pertinent family history PCOS (polycystic ovarian syndrome) Pulmonary embolism Yeast detected Coco parapsilosis 04/29, endotracheal aspirate Trichosporosis [id number] Surgical History No pertinent past surgical history Family History Father Cancer Social History Smoking and tobacco status: never smoked Alcohol intake: never History of recent travel: No Course ED course: Assumed care of patient from Hiwot Charles. Patient is resting in bed comfortably. Denies any complaints of pain at this time. Waiting on 2- hour Trop Vital Signs: Vital signs: Vital Signs Temperature 97.5 F L 12/19/21 10:21 Pulse Rate 82 12/19/21 15:30 Respiratory Rate 21 H 12/19/21 15:30 Blood Pressure 125/64 12/19/21 15:30 Pulse Oximetry 98 12/19/21 15:30 Oxygen Delivery Me thod 12/19/21 13:00 MDM - Chest Pain Medical Decision Making Pt has hx of severe COVID and presents to ER with complaints of CP; he symptoms resemble GERD as well and we will attempt protonix to see if we are able to eliminate indigestion as the cause of her CP as pt has notable learning disabilities and has a hard time verbalizing her pain. Patient has not had any chest pain since I assumed care. At 1 point she did have mild epigastric pain. Vital signs have been stable. Her troponin at baseline was 33 her 2-hour troponin was 28.7 with a delta troponin of -4.3. Patient will be discharged home with Protonix. I discussed work-up and results of work-up with patient and her parents. We discussed possible benefits and side effects of Protonix. I recommend patient have follow-up with your primary care provider next week for continued evaluation and monitoring. Return to the ER as needed for any new or worsening symptoms or return of chest pain. Lab Data : 12/19/21 10:53 12/19/21 10:53 Radiology Impressions Chest X-Ray 12/19/21 10:37 IMPRESSION: No acute finding. Laboratory Results WBC 13.9 10^3/uL (4.0-10.0) H 12/19/21 10:53 RBC 4.49 10^6/uL (4.1-5.3) 12/19/21 10:53 Hgb 13.3 g/dL (11.5-15.3) 12/19/21 10:53 Hct 41.0 % (37.0-47.0) 12/19/21 10:53 MCV 91.3 fl (81-99) 12/19/21 10:53 MCH 29.6 pg (28.0-34.0) 12/19/21 10:53 MCHC 32.4 g/dL (30.0-36.0) 12/19/21 10:53 RDW 13.1 % (12.1-15.1) 12/19/21 10:53 Plt Count 299 10^3/cmm (130-400) 12/19/21 10:53 MPV 11.3 fL (7.4-10.4) H 12/19/21 10:53 Neut % (Auto) 65.9 % 12/19/21 10:53 Lymph % (Auto) 23.6 % 12/19/21 10:53 [place] % (Auto) 7.0 % 12/19/21 10:53 Eos % (Auto) 1.9 % 12/19/21 10:53 Baso % (Auto) 0.5 % 12/19/21 10:53 Neut # (Auto) 9.13 10^3/uL (1.8-7.7) H 12/19/21 10:53 Lymph # (Auto) 3.3 10^3/uL (0.8-4.8) 12/19/21 10:53 [place] # (Auto) 1.0 10^3/uL (0.2-0.9) H 12/19/21 10:53 Eos # (Auto) 0.3 10^3/uL (0.0-0.8) 12/19/21 10:53 Baso # (Auto) 0.1 10^3/uL (0.0-0.1) 12/19/21 10:53 Nucleated RBC % (auto) 0 % 12/19/21 10:53 Nucleated RBCs # 0.0 /100WBC 12/19/21 10:53 Sodium 136 mmol/L (136-145) 12/19/21 10:53 Potassium 4.9 mmol/L (3.5-5.1) 12/19/21 10:53 Chloride 98 mmol/L (98-107) 12/19/21 10:53 Carbon Dioxide 26 mmol/L (22-29) 12/19/21 10:53 Anion Gap 16.9 (5-19) 12/19/21 10:53 BUN 16 mg/dL (6-20) 12/19/21 10:53 Creatinine 0.6 mg/dL (0.5-0.9) 12/19/21 10:53 GFR Calculation 110.7 mL/min (90-130) 12/19/21 10:53 Glucose 113 mg/dL (65-115) 12/19/21 10:53 Calculated Osmolality 284 mOsm/kg (285-295) L 12/19/21 10:53 Calcium 10.0 mg/dL (8.5-10.5) 12/19/21 10:53 Total Bilirubin 0.3 mg/dL (0.15-1.2) 12/19/21 10:53 AST 61 U/L (0-32) H 12/19/21 10:53 ALT 61 U/L (0-33) H 12/19/21 10:53 Alkaline Phosphatase 235 U/L (35-105) H 12/19/21 10:53 Troponin T Baseline 33 ng/L (0-10) H 12/19/21 10:53 Troponin T 120 Minute 28.70 ng/L (0-10) H 12/19/21 13:15 Delta Troponin T -4.30 ABS# (0-10) L 12/19/21 13:15 Total Protein 6.8 g/dL (6.6-8.7) 12/19/21 10:53 Albumin 3.7 g/dL (3.5-5.2) 12/19/21 10:53 Globulin 3.1 g/dL (1.3-4.6) 12/19/21 10:53 Discharge Plan Discharge Patient Disposition: Home Clinical Impression: Atypical chest pain, Acute epigastric pain Condition: Stable Prescriptions: New Protonix 40 mg tablet,delayed release (DR/EC) 40 mg PO DAILY Qty: 30 0RF No Action ondansetron 4 mg tablet,disintegrating 4 mg PO Q8H PRN (Reason: nausea and vomiting) Qty: 20 0RF citalopram 20 mg tablet 20 mg PO QAM Dakin's Solution 0.125 % solution 1 applic topical DAILY Rx Instructions: uses on buttocks (uses daily and prn) Eliquis 5 mg tablet 5 mg PO BID fenofibrate nanocrystallized 145 mg tablet 145 mg PO QAM ciprofloxacin HCl 500 mg tablet 500 mg PO BID Qty: 6 0RF potassium chloride 10 mEq tablet,ER particles/crystals 10 meq PO DAILY Qty: 5 0RF Toprol XL 50 mg tablet extended release 24 hr 25 mg PO QAM Qty: 30 0RF Rx Instructions: hold if sbp<90mmhg Discharge Orders: Discharge ED (Routine); Ordered 12/19/21 Ordered By: Shantell Harrell Referrals: Harrell,CROW LarsenP [Primary Care Provider] - Discharge Diet: As Directed Discharge Activity: Resume usual activity Patient Instructions: Chest Pain - Noncardiac, GERD (Gastroesophageal Reflux Disease) (ED), Abdominal Pain (ED) Activity Restrictions/Additional Instructions: Your evaluation today does not indicate any acute cardiac issue. Take Protonix as directed daily. You should follow-up with your primary care provider next week for reevaluation and continued monitoring. Return to the ER for any new or worsening symptoms, chest pain, shortness of breath. Sign Out Sign Out Data: Patient Sign Out occurred on 12/19/21 at 14:04. Patient's care was discussed, and care was transferred from to Smith Shanks DO. Coding Level of Care Code ED Grounds Keeper for Chg Fwd Exam Comprehensive Documented by User: Smith Shanks DO 12/20/21 07:32 HPI - Chest Pain General: Chief Complaint: Chest Pain Stated Complaint: Chest Pain Time Seen by Provider: 12/19/21 10:42 [facility] ED PFSH: Medical History Acute respiratory distress syndrome (ARDS) due to 2019 novel coronavirus ATN (acute tubular necrosis) B12 deficiency anemia COVID Diarrhea Essential hypertension GODFREY (generalized anxiety disorder) Hypertriglyceridemia Hypotension Leukocytosis Mild mental handicap No pertinent family history PCOS (polycystic ovarian syndrome) Pulmonary embolism Yeast detected Coco parapsilosis 04/29, endotracheal aspirate Trichosporosis ashai Surgical History No pertinent past surgical history Family History Father Cancer Social History Smoking and tobacco status: never smoked Alcohol intake: never History of recent travel: No Course Vital Signs: Vital signs: Vital Signs Temperature 97.5 F L 12/19/21 10:21 Pulse Rate 82 12/19/21 15:30 Respiratory Rate 21 H 12/19/21 15:30 Blood Pressure 125/64 12/19/21 15:30 Pulse Oximetry 98 12/19/21 15:30 Oxygen Delivery Me thod 12/19/21 13:00 MDM - Chest Pain Medical Decision Making Pt has hx of severe COVID and presents to ER with complaints of CP; he symptoms resemble GERD as well and we will attempt protonix to see if we are able to eliminate indigestion as the cause of her CP as pt has notable learning disabilities and has a hard time verbalizing her pain. Patient has not had any chest pain since I assumed care. At 1 point she did have mild epigastric pain. Vital signs have been stable. Her troponin at baseline was 33 her 2-hour troponin was 28.7 with a delta troponin of -4.3. Patient will be discharged home with Protonix. I discussed work-up and results of work-up with patient and her parents. We discussed possible benefits and side effects of Protonix. I recommend patient have follow-up with your primary care provider next week for continued evaluation and monitoring. Return to the ER as needed for any new or worsening symptoms or return of chest pain. Chart reviewed and patient discussed with midlevel. Agree with assessment and plan. Lab Data : 12/19/21 10:53 12/19/21 10:53 Radiology Impressions Chest X-Ray 12/19/21 10:37 IMPRESSION: No acute finding. Laboratory Results WBC 13.9 10^3/uL (4.0-10.0) H 12/19/21 10:53 RBC 4.49 10^6/uL (4.1-5.3) 12/19/21 10:53 Hgb 13.3 g/dL (11.5-15.3) 12/19/21 10:53 Hct 41.0 % (37.0-47.0) 12/19/21 10:53 MCV 91.3 fl (81-99) 12/19/21 10:53 MCH 29.6 pg (28.0-34.0) 12/19/21 10:53 MCHC 32.4 g/dL (30.0-36.0) 12/19/21 10:53 RDW 13.1 % (12.1-15.1) 12/19/21 10:53 Plt Count 299 10^3/cmm (130-400) 12/19/21 10:53 MPV 11.3 fL (7.4-10.4) H 12/19/21 10:53 Neut % (Auto) 65.9 % 12/19/21 10:53 Lymph % (Auto) 23.6 % 12/19/21 10:53 [place] % (Auto) 7.0 % 12/19/21 10:53 Eos % (Auto) 1.9 % 12/19/21 10:53 Baso % (Auto) 0.5 % 12/19/21 10:53 Neut # (Auto) 9.13 10^3/uL (1.8-7.7) H 12/19/21 10:53 Lymph # (Auto) 3.3 10^3/uL (0.8-4.8) 12/19/21 10:53 [place] # (Auto) 1.0 10^3/uL (0.2-0.9) H 12/19/21 10:53 Eos # (Auto) 0.3 10^3/uL (0.0-0.8) 12/19/21 10:53 Baso # (Auto) 0.1 10^3/uL (0.0-0.1) 12/19/21 10:53 Nucleated RBC % (auto) 0 % 12/19/21 10:53 Nucleated RBCs # 0.0 /100WBC 12/19/21 10:53 Sodium 136 mmol/L (136-145) 12/19/21 10:53 Potassium 4.9 mmol/L (3.5-5.1) 12/19/21 10:53 Chloride 98 mmol/L (98-107) 12/19/21 10:53 Carbon Dioxide 26 mmol/L (22-29) 12/19/21 10:53 Anion Gap 16.9 (5-19) 12/19/21 10:53 BUN 16 mg/dL (6-20) 12/19/21 10:53 Creatinine 0.6 mg/dL (0.5-0.9) 12/19/21 10:53 GFR Calculation 110.7 mL/min (90-130) 12/19/21 10:53 Glucose 113 mg/dL (65-115) 12/19/21 10:53 Calculated Osmolality 284 mOsm/kg (285-295) L 12/19/21 10:53 Calcium 10.0 mg/dL (8.5-10.5) 12/19/21 10:53 Total Bilirubin 0.3 mg/dL (0.15-1.2) 12/19/21 10:53 AST 61 U/L (0-32) H 12/19/21 10:53 ALT 61 U/L (0-33) H 12/19/21 10:53 Alkaline Phosphatase 235 U/L (35-105) H 12/19/21 10:53 Troponin T Baseline 33 ng/L (0-10) H 12/19/21 10:53 Troponin T 120 Minute 28.70 ng/L (0-10) H 12/19/21 13:15 Delta Troponin T -4.30 ABS# (0-10) L 12/19/21 13:15 Total Protein 6.8 g/dL (6.6-8.7) 12/19/21 10:53 Albumin 3.7 g/dL (3.5-5.2) 12/19/21 10:53 Globulin 3.1 g/dL (1.3-4.6) 12/19/21 10:53 Discharge Plan Discharge Patient Disposition: Home Clinical Impression: Atypical chest pain, Acute epigastric pain Condition: Stable Prescriptions: New Protonix 40 mg tablet,delayed release (DR/EC) 40 mg PO DAILY Qty: 30 0RF No Action ondansetron 4 mg tablet,disintegrating 4 mg PO Q8H PRN (Reason: nausea and vomiting) Qty: 20 0RF citalopram 20 mg tablet 20 mg PO QAM Dakin's Solution 0.125 % solution 1 applic topical DAILY Rx Instructions: uses on buttocks (uses daily and prn) Eliquis 5 mg tablet 5 mg PO BID fenofibrate nanocrystallized 145 mg tablet 145 mg PO QAM ciprofloxacin HCl 500 mg tablet 500 mg PO BID Qty: 6 0RF potassium chloride 10 mEq tablet,ER particles/crystals 10 meq PO DAILY Qty: 5 0RF Toprol XL 50 mg tablet extended release 24 hr 25 mg PO QAM Qty: 30 0RF Rx Instructions: hold if sbp<90mmhg Discharge Orders: Discharge ED (Routine); Ordered 12/19/21 Ordered By: Shantell Harrell Referrals: Harrell,YAMIL Larsen [Primary Care Provider] - Discharge Diet: As Directed Discharge Activity: Resume usual activity Patient Instructions: Chest Pain - Noncardiac, GERD (Gastroesophageal Reflux Disease) (ED), Abdominal Pain (ED) Activity Restrictions/Additional Instructions: Your evaluation today does not indicate any acute cardiac issue. Take Protonix as directed daily. You should follow-up with your primary care provider next week for reevaluation and continued monitoring. Return to the ER for any new or worsening symptoms, chest pain, shortness of breath. Sign Out Sign Out Data: Patient Sign Out occurred on 12/19/21 at 14:04. Patient's care was discussed, and care was transferred from to Smith Shanks DO. Coding Level of Care Code ED Grounds Keeper for Chg Fwd Exam Comprehensive
[2021-12-19 11:30] VITALS: BP 109/70; PULSE 73; RESP 19; O2SAT 100
[2021-12-19 11:34] LABS: Alanine Aminotransferase 61 U/L (0-33); Albumin Level 3.7 g/dL (3.5-5.2); Alkaline Phosphatase 235 U/L (35-105); Anion Gap 16.9 (5-19); Aspartate Amino Transferase 61 U/L (0-32); Blood Urea Nitrogen 16 mg/dL (6-20); Carbon Dioxide 26 mmol/L (22-29); Chloride 98 mmol/L (98-107); Globulin 3.1 g/dL (1.3-4.6); Glomerular Filtration Rate 110.7 mL/min (90-130); Glucose 113 mg/dL (65-115); Osmolality Calculated 284 mOsm/kg (285-295); Potassium 4.9 mmol/L (3.5-5.1); Sodium 136 mmol/L (136-145); Total Bilirubin 0.3 mg/dL (0.15-1.2); Total Protein 6.8 g/dL (6.6-8.7); Troponin(5th) Baseline 33 ng/L (0-10)
[2021-12-19 12:00] VITALS: BP 107/67; PULSE 73; RESP 22; O2SAT 97
[2021-12-19 12:30] VITALS: BP 104/65; PULSE 68; RESP 20; O2SAT 97
[2021-12-19 13:00] VITALS: BP 93/53; PULSE 64; RESP 16; O2SAT 95
[2021-12-19 15:30] VITALS: BP 125/64; PULSE 82; RESP 21; O2SAT 98
== END 2021-12-19 15:32 | disposition home or self-care (01) ==
PROVIDERS: Family Medicine; Emergency Provider Nurse Practitioner Family; PCP Nurse Practitioner Family
DX: R07.89 Other chest pain (principal); R10.13 Epigastric pain; I10 Essential (primary) hypertension; Z79.01 Long term (current) use of anticoagulants; Z86.16 Personal history of COVID-19
CPT/HCPCS: 36415; 71045; 80053; 84484; 85025; 93005; 96374; 99285; C9113

== ENCOUNTER 2021-12-19 20:45 | Inpatient (IN) | payer MEDICARE, MEDICAID, SELFPAY ==
[2021-12-19 20:55] VITALS: BP 117/79; PULSE 102; RESP 16; TEMP 36.2; O2SAT 96
[2021-12-20] VITALS (15 sets, daily range): BP systolic 122–153; BP diastolic 74–104; PULSE 70–101; RESP 14–22; TEMP 36.6–36.8; O2SAT 92–100; BMI 22.0
--- NOTE | 2021-12-20 00:15 | PC.NURSE ---
assumed care of patient at this time. placed in vertical flow, lab at bedside to perform evp.
[2021-12-20 00:22] LABS: Basophils % 0.3 %; Eosinophils # 0.2 10^3/uL (0.0-0.8); Eosinophils % 1.3 %; Hematocrit 39.4 % (37.0-47.0); Lymphocytes # 2.7 10^3/uL (0.8-4.8); Lymphocytes % 18.4 %; Mean Corpuscular Hemoglobin 29.6 pg (28.0-34.0); Mean Corpuscular Volume 89.7 fl (81-99); Mean Platelet Volume 11.2 fL (7.4-10.4); Monocytes # 0.9 10^3/uL (0.2-0.9); Neutrophils # 10.96 10^3/uL (1.8-7.7); Neutrophils % 73.4 %; Nucleated Red Blood Cells % 0 %; Platelet Count 320 10^3/cmm (130-400); Red Blood Count 4.39 10^6/uL (4.1-5.3); White Blood Count 14.9 10^3/uL (4.0-10.0)
[2021-12-20 00:39] LABS: Alanine Aminotransferase 60 U/L (0-33); Albumin Level 4.1 g/dL (3.5-5.2); Alkaline Phosphatase 240 U/L (35-105); Anion Gap 18.3 (5-19); Aspartate Amino Transferase 57 U/L (0-32); Blood Urea Nitrogen 17 mg/dL (6-20); Calcium 9.9 mg/dL (8.5-10.5); Carbon Dioxide 25 mmol/L (22-29); Chloride 97 mmol/L (98-107); Globulin 2.9 g/dL (1.3-4.6); Glomerular Filtration Rate 79.4 mL/min (90-130); Glucose 146 mg/dL (65-115); Lipase 215 U/L (13-60); Osmolality Calculated 286 mOsm/kg (285-295); Potassium 4.3 mmol/L (3.5-5.1); Sodium 136 mmol/L (136-145); Total Bilirubin 0.4 mg/dL (0.15-1.2)
--- NOTE | 2021-12-20 01:09 | CTR_ITS ---
PROCEDURE INFORMATION: Exam: CT Abdomen And Pelvis With Contrast Exam date and time: 12/20/2021 2:11 AM Age: 41 years old Clinical indication: Nausea and vomiting; Abdominal pain; Patient HX: N/v, epigastric pain. Special needs patient TECHNIQUE: Imaging protocol: Computed tomography of the abdomen and pelvis with contrast. Radiation optimization: All CT scans at this facility use at least one of these dose optimization techniques: automated exposure control; mA and/or kV adjustment per patient size (includes targeted exams where dose is matched to clinical indication); or iterative reconstruction. Contrast material: OMNIPAQUE 350; Contrast volume: 80 ml; Contrast route: INTRAVENOUS (IV); COMPARISON: CT abdomen pelvis wo con [id number] 05/24/2021 8:01 AM RADIATION DOSE METRICS: Total DLP (mGy-cm): 360.36 FINDINGS: Lungs: The lung bases are clear. Liver: There is prominent fatty infiltration of the liver. Superior to the gallbladder in the right lobe, there is a 2 x 3 cm cm region of higher attenuation, possibly representing fatty sparing. If there is clinical concern for other liver mass, MRI could be more specific. Gallbladder and bile ducts: The patient has known gallstones that are not easily/definitely visualized on CT. The gallbladder appears borderline/mildly prominent in size, transverse diameter of about 4 cm. No definite pericholecystic fluid or inflammatory changes. No biliary tree dilation. Pancreas: There are moderate presumed inflammatory changes around the pancreas, suspicious for acute pancreatitis. Please correlate with clinical and laboratory evaluation. No significant peripancreatic or retroperitoneal fluid. No pseudocyst. No pancreatic duct dilation. The pancreas appears to enhance homogeneously. Spleen: Unremarkable. Adrenal glands: Unremarkable. Kidneys and ureters: Unremarkable. Stomach and bowel: No significant bowel distention. There are no CT findings to strongly suggest diverticulitis. Appendix: The appendix is not identified with certainty, however no pericecal inflammatory changes are seen. Intraperitoneal space: No free intraperitoneal air, or generalized ascites. Vasculature: No evidence for abdominal aortic aneurysm. Lymph nodes: No retroperitoneal adenopathy. Urinary bladder: Unremarkable as visualized. Reproductive: One or possibly 2 adjacent cysts involving the left ovary. Overall size about 40 x 25 x 30 mm. If these are separate cysts, the larger measures about 30 x 25 x 25 mm, and the smaller cyst measures about 23 x 20 x 22 mm. These findings appear new and/or larger since the prior exam. Physiologic cysts are still possible, although other etiologies are not excluded. Ultrasound could further evaluate these ovarian findings if felt clinically indicated, and could also be used for appropriate follow-up. Appropriate follow up is recommended in this age group, to insure against a persistent or enlarging lesion/neoplasm. Small amount of cul-de-sac fluid. Bones/joints: Severe degenerative disc changes at L5-S1. Suspect a partially calcified central disc herniation at this level. The appearance is similar to the prior exam. Soft tissues: No significant acute finding. CT/CT abdomen pelvis w con* [id number] IMPRESSION: 1. Findings compatible with acute pancreatitis, see above discussion. 2. The patient's known gallstones are not definitely visible on CT. Borderline/mildly distended gallbladder, additional details above. 3. No free air or bowel distention. No evidence to strongly suggest bowel obstruction. 4. One or possibly 2 adjacent cysts involving the left ovary, see above details and discussion. 5. No evidence to suggest appendicitis, however a normal appendix is not definitely visible. 6. Other findings discussed above.
--- NOTE | 2021-12-20 01:14 | PC.NURSE ---
patient unable to void at this time
[2021-12-20] MEDS: sodium chloride 0.9% 1,000 ML 999 ML IV (01:23)
[2021-12-20] MEDS: ondansetron 2 mg/ML SDV 2 mL 4 MG IVP ×3 (01:23→12:25)
--- NOTE | 2021-12-20 01:33 | USR_ITS ---
PROCEDURE INFORMATION: Exam: US Abdomen, Limited; Right Upper Quadrant Exam date and time: 12/20/2021 1:45 AM Age: 41 years old Clinical indication: Nausea and vomiting; Additional info: Ruq pain TECHNIQUE: Imaging protocol: Real time ultrasound of the abdomen with image documentation. Limited exam focused on the right upper quadrant. COMPARISON: US abdomen complete* [id number] 08/12/2021 1:44 PM FINDINGS: Liver: Somewhat increased echogenicity of the liver may indicate fatty infiltration. Possible 3 cm area of fatty sparing adjacent to the gallbladder. Gallbladder: Cholelithiasis, with multiple shadowing gallstones again seen within the gallbladder, including 1 in the region of the gallbladder neck. The gallbladder appears mildly distended, with transverse diameter up to 4.3 cm. No definite gallbladder wall thickening or pericholecystic fluid. Biliary ducts: No biliary dilation, common duct measures 4.7 mm. Pancreas: Visible pancreas appears essentially unremarkable. Right kidney: Images of the right kidney show no hydronephrosis. US/US gall bladder [id number] IMPRESSION: 1. Cholelithiasis, see additional details above. 2. No biliary tree dilation. 3. Other findings discussed above.
--- NOTE | 2021-12-20 02:10 | PC.NURSE ---
patient taken to ct at this time.
--- NOTE | 2021-12-20 02:16 | PC.NURSE ---
patient taken from PIT vertical flow 3 to ED room 13, care transferred to Donna Melton RN
[2021-12-20] MEDS: iohexol 350 mg/mL 100 mL Btl IV (02:17)
[2021-12-20] MEDS: fentaNYL 50 mcg/mL INJ 2mL 25 MCG IVP (02:39)
[2021-12-20 03:08] LABS: Add Urine Microscopic? NO; Charge for UA Resulting for Rev
[2021-12-20 03:10] LABS: Bilirubin Urine Negative (Negative); Blood Urine Negative (Negative); Glucose Urine UA Negative (Normal); Ketones Urine Negative (Negative); Leukocyte Esterase Urine Negative (Negative); Nitrate Urine Negative; Protein Urine Negative (Negative); Specific Gravity, Urine 1.015 (1.005-1.030); Urine Appearance Clear (CLEAR); Urine Color Yellow (Yellow); Urobilinogen Urine 0.2 mg/dL (Negative); pH Urine 5.5 (5-7)
--- NOTE | 2021-12-20 04:08 | ED_ITS ---
HPI - Abdominal Pain General: Chief Complaint: Abdominal Pain Stated Complaint: Vomiting Time Seen by Provider: 12/20/21 01:24 Source: patient and family History of Present Illness: 41-year-old female with multiple medical problems. She presents with upper abdominal pain. She was seen earlier in the day for chest discomfort, and allowed discharge after work-up did not reveal a cause. Evidently, after returning home, she began to eat a cheeseburger, and vomited. She complained of increased epigastric pain, and has vomited several times since. She is tender in the belly. She does have a history of pancreatitis MD elicited complaint: abdominal pain Pertinent past history: other Onset (ago): hour(s) Pain Consistency: constant Location: Epigastric and RUQ Quality: stabbing Radiation: none Migration to: no migration Exacerbating factors: eating Relieving factors: nothing Associated Symptoms: Reports nausea, poor appetite and vomiting; Denies chills, diarrhea, fever(s) and hematemesis Related Data: Date of Last Menstrual Period: 04/09/21 Review of Systems Const: Denies: fever(s), chills or body aches ENMT: Reports: throat pain (After vomiting) Card: Denies: chest pain or palpitations Resp: Denies: dyspnea, productive cough, non-productive cough or wheezing GI: Reports: nausea and vomiting; Denies: hematemesis or diarrhea : Denies: difficulty voiding Skin/Breast: Denies: rash Neuro: Denies: headache(s), weakness in extremities, dizziness or confusion PFSH ED PFSH: Medical History Acute respiratory distress syndrome (ARDS) due to 2019 novel coronavirus ATN (acute tubular necrosis) B12 deficiency anemia COVID Diarrhea Essential hypertension GODFREY (generalized anxiety disorder) Hypertriglyceridemia Hypotension Leukocytosis Mild mental handicap No pertinent family history PCOS (polycystic ovarian syndrome) Pulmonary embolism Yeast detected Coco parapsilosis 04/29, endotracheal aspirate Trichosporosis ashai Surgical History No pertinent past surgical history Family History Father Cancer Social History Smoking and tobacco status: never smoked Alcohol intake: never History of recent travel: No Female Reproductive History: Date of last menstrual period: 04/09/21 Physical Exam Const: GENERAL APPEARANCE: cooperative and frail appearing HENMT: COMMON NORMALS: normocephalic, atraumatic and Normal external nose present HEAD & SCALP: normocephalic and atraumatic NOSE: Normal external nose present Eye: COMMON NORMALS: Equal, round and reactive pupils present, EOMs intact bilaterally and no scleral icterus PUPIL: Yes Equal, round and reactive pupils present Neck/C-Spine: COMMON NORMALS: full ROM GENERAL: Yes trachea midline Chest: CHEST: Yes Symmetrical chest wall rise Resp: COMMON NORMALS: normal respiratory effort, No use of accessory muscles and clear to auscultation bilaterally AUSCULTATION: clear to auscultation bilaterally Cardio: COMMON NORMALS: regular rate and regular rhythm RATE: regular rate RHYTHM: regular rhythm GI: INSPECTION: Yes normal to inspection AUSCULTATION: Yes Hypoactive bowel sounds present PALPATION: Yes Tenderness to palpation present (GI) Details: LUQ and RUQ Extremity: COMMON NORMALS: normal to inspection and no pedal edema Neuro: THADDEUS COMA SCALE: document GCS findings Thaddeus coma scale eye opening: Spontaneous [place] coma scale verbal response: Orientated Thaddeus coma scale motor response: Obey commands Thaddeus coma scale total score: 15 Psych: COMMON NORMALS: cooperative Skin: COMMON NORMALS: no jaundice GENERAL SKIN EXAM: pallor Course Vital Signs: Vital signs: Vital Signs Temperature 97.2 F L 12/19/21 20:55 Pulse Rate 71 12/20/21 04:30 Respiratory Rate 14 12/20/21 04:30 Blood Pressure 142/81 12/20/21 04:30 Pulse Oximetry 100 12/20/21 04:30 Oxygen Delivery Me thod 12/20/21 01:30 MDM - Abdominal Pain Medical Decision Making Patient is afebrile. White blood cell count is 15. No significant shift. BMP is not remarkable. Liver enzymes are minimally elevated, although her bilirubin is normal. Lipase is 215. Ultrasound of the gallbladder and CT of the belly are pending. We are currently waiting over 2 hours for radiology reads. Findings compatible with acute pancreatitis by CT. There is cholelithiasis, but without biliary tree dilatation by CT and ultrasound. Her bilirubin is not elevated. This patient is quite frail, and may not do well at home. She will be admitted for IV fluid support, n.p.o., treatment of pancreatitis. Hospitalist is aware, and will see the patient in the ER. Lab Data : 12/20/21 00:15 12/20/21 00:15 Labs/Radiology: Radiology Impressions Abdomen/Pelvis CT 12/20/21 01:09 IMPRESSION: 1. Findings compatible with acute pancreatitis, see above discussion. 2. The patient's known gallstones are not definitely visible on CT. Borderline/mildly distended gallbladder, additional details above. 3. No free air or bowel distention. No evidence to strongly suggest bowel obstruction. 4. One or possibly 2 adjacent cysts involving the left ovary, see above details and discussion. 5. No evidence to suggest appendicitis, however a normal appendix is not definitely visible. 6. Other findings discussed above. Gallbladder Ultrasound 12/20/21 01:33 IMPRESSION: 1. Cholelithiasis, see additional details above. 2. No biliary tree dilation. 3. Other findings discussed above. Laboratory Results WBC 14.9 10^3/uL (4.0-10.0) H 12/20/21 00:15 RBC 4.39 10^6/uL (4.1-5.3) 12/20/21 00:15 Hgb 13.0 g/dL (11.5-15.3) 12/20/21 00:15 Hct 39.4 % (37.0-47.0) 12/20/21 00:15 MCV 89.7 fl (81-99) 12/20/21 00:15 MCH 29.6 pg (28.0-34.0) 12/20/21 00:15 MCHC 33.0 g/dL (30.0-36.0) 12/20/21 00:15 RDW 13.0 % (12.1-15.1) 12/20/21 00:15 Plt Count 320 10^3/cmm (130-400) 12/20/21 00:15 MPV 11.2 fL (7.4-10.4) H 12/20/21 00:15 Neut % (Auto) 73.4 % 12/20/21 00:15 Lymph % (Auto) 18.4 % 12/20/21 00:15 [place] % (Auto) 6.0 % 10/02/22 00:15 Eos % (Auto) 1.3 % 12/20/21 00:15 Baso % (Auto) 0.3 % 12/20/21 00:15 Neut # (Auto) 10.96 10^3/uL (1.8-7.7) H 12/20/21 00:15 Lymph # (Auto) 2.7 10^3/uL (0.8-4.8) 12/20/21 00:15 [place] # (Auto) 0.9 10^3/uL (0.2-0.9) 12/20/21 00:15 Eos # (Auto) 0.2 10^3/uL (0.0-0.8) 12/20/21 00:15 Baso # (Auto) 0.0 10^3/uL (0.0-0.1) 12/20/21 00:15 Nucleated RBC % (auto) 0 % 12/20/21 00:15 Nucleated RBCs # 0.0 /100WBC 12/20/21 00:15 Sodium 136 mmol/L (136-145) 12/20/21 00:15 Potassium 4.3 mmol/L (3.5-5.1) 12/20/21 00:15 Chloride 97 mmol/L (98-107) L 12/20/21 00:15 Carbon Dioxide 25 mmol/L (22-29) 12/20/21 00:15 Anion Gap 18.3 (5-19) 12/20/21 00:15 BUN 17 mg/dL (6-20) 12/20/21 00:15 Creatinine 0.8 mg/dL (0.5-0.9) 12/20/21 00:15 GFR Calculation 79.4 mL/min (90-130) L 12/20/21 00:15 Glucose 146 mg/dL (65-115) H 12/20/21 00:15 Calculated Osmolality 286 mOsm/kg (285-295) 12/20/21 00:15 Calcium 9.9 mg/dL (8.5-10.5) 12/20/21 00:15 Total Bilirubin 0.4 mg/dL (0.15-1.2) 12/20/21 00:15 AST 57 U/L (0-32) H 12/20/21 00:15 ALT 60 U/L (0-33) H 12/20/21 00:15 Alkaline Phosphatase 240 U/L (35-105) H 12/20/21 00:15 Total Protein 7.0 g/dL (6.6-8.7) 12/20/21 00:15 Albumin 4.1 g/dL (3.5-5.2) 12/20/21 00:15 Globulin 2.9 g/dL (1.3-4.6) 12/20/21 00:15 Lipase 215 U/L (13-60) H 12/20/21 00:15 Urine Color Yellow (Yellow) 12/20/21 02:50 Urine Appearance Clear (CLEAR) 12/20/21 02:50 Urine pH 5.5 (5-7) 12/20/21 02:50 Ur Specific [place] 1.015 (1.005-1.030) 12/20/21 02:50 Urine Protein Negative (Negative) 12/20/21 02:50 Urine Glucose (UA) Negative (Normal) 12/20/21 02:50 Urine Ketones Negative (Negative) 12/20/21 02:50 Urine Blood Negative (Negative) 12/20/21 02:50 Urine Nitrate Negative 12/20/21 02:50 Urine Bilirubin Negative (Negative) 12/20/21 02:50 Urine Urobilinogen 0.2 mg/dL (Negative) 12/20/21 02:50 Ur Leukocyte Esterase Negative (Negative) 12/20/21 02:50 Urine HCG, Qual Negative (Negative) 12/20/21 02:50 Discharge Plan Discharge Patient Disposition: Admitted As Inpatient Clinical Impression: Acute pancreatitis Condition: Fair Prescriptions: No Action ondansetron 4 mg tablet,disintegrating 4 mg PO Q8H PRN (Reason: nausea and vomiting) Qty: 20 0RF citalopram 20 mg tablet 20 mg PO QAM Dakin's Solution 0.125 % solution 1 applic topical DAILY Rx Instructions: uses on buttocks (uses daily and prn) Eliquis 5 mg tablet 5 mg PO BID fenofibrate nanocrystallized 145 mg tablet 145 mg PO QAM ciprofloxacin HCl 500 mg tablet 500 mg PO BID Qty: 6 0RF potassium chloride 10 mEq tablet,ER particles/crystals 10 meq PO DAILY Qty: 5 0RF Toprol XL 50 mg tablet extended release 24 hr 25 mg PO QAM Qty: 30 0RF Rx Instructions: hold if sbp<90mmhg Protonix 40 mg tablet,delayed release (DR/EC) 40 mg PO DAILY Qty: 30 0RF Referrals: Julio Cesar,YAMIL Lrasen [Primary Care Provider] - Coding Level of Care Code ED [employer] Pens Assembler for Chg Fwd Exam Comprehensive
[2021-12-20] MEDS: morphine 4 mg/mL SDV 1 mL IVP (05:41)
[2021-12-20] MEDS: ketorolac 30 mg/mL INJ 15 MG IVP (05:42)
--- NOTE | 2021-12-20 05:50 | PM.HP ---
Providers/Chief Complaint Primary Care Provider: YAMIL Hoffman Chief Complaint: Vomiting History of Present Illness Precious Mckeon is a 41 year old female with past medical history of COVID, hypertriglyceridemia associated acute pancreatitis, came in today with chief complaint of upper abdominal pain nausea vomiting, at home, She was seen earlier in the day for chest discomfort and was discharged after appropriate chest pain work-up went home and started vomiting after eating cheeseburger, she vomited several times at home, denies any hematemesis . Currently she denies any fever cough shortness of breath, Sick contact. Upon arrival arrival in the ER she was worked up for above-mentioned complaint. Pertinent imaging studies: ?CT abdomen pelvis w con: Is consistent with acute pancreatitis: There are moderate presumed inflammatory changes around the pancreas, suspicious for acute pancreatitis. US gall bladder: Cholelithiasis, No biliary tree dilation. Pertinent labs: WBC 14.9 , H&H:13/39 , PLT : 320 , sodium 136 potassium 4.3, BUN serum creatinine: 17/0.8 , random blood sugar: 146 , Serum calcium 9.9, AST : 57 ,ALT : 60, ALP: 240 lipase 215 Lipid panel pending. Patient received pain medicine IV hydration and antiemetic in the ER. Review of Systems General: Reports: 10 or more systems reviewed and unremarkable except in HPI and below Const: Denies: fever(s), chills, body aches, change in appetite or diaphoresis Card: Denies: palpitations, edema, swelling of feet/ankles, dyspnea on exertion, orthopnea or leg pain with exertion Resp: Denies: dyspnea, productive cough, wheezing or pain on inspiration GI: Reports: abdominal pain, nausea and vomiting; Denies: diarrhea or constipation : Denies: flank pain Musc: Denies: back pain, extremity pain or extremity swelling Neuro: Denies: headache(s), difficulty walking or confusion Medications/Allergies Home Medications Medication Instructions Recorded Confirmed Last Taken Type ondansetron 4 mg disintegrating 4 mg PO Q8H PRN nausea and 04/17/21 12/20/21 Unknown Rx tablet vomiting #20 tabs apixaban 5 mg tablet (Eliquis) 5 mg PO BID 08/24/21 12/20/21 08/16/21 History citalopram 20 mg tablet 20 mg PO QAM 08/24/21 12/20/21 08/23/21 History fenofibrate nanocrystallized 145 145 mg PO QAM 08/24/21 12/20/21 08/23/21 History mg tablet metoprolol succinate 50 mg 25 mg PO QAM #30 tabs 08/27/21 12/20/21 Unknown Rx tablet,extended release 24 hr (Toprol XL) potassium chloride 10 mEq 10 meq PO DAILY #5 tabs 08/27/21 12/20/21 Unknown Rx tablet,extended release(part/cryst) pantoprazole 40 mg tablet,delayed 40 mg PO DAILY #30 tabs 12/19/21 12/20/21 Unknown Rx release (Protonix) hydrochlorothiazide 25 mg tablet 25 mg PO DAILY 12/20/21 12/20/21 Unknown History metformin 500 mg tablet 500 mg PO BID 12/20/21 12/20/21 Unknown History Allergies Allergy/AdvReac Type Severity Reaction Status Date / Time No Known Allergies Allergy Verified 08/24/21 13:28 PFSH Acute PFSH: Medical History Acute respiratory distress syndrome (ARDS) due to 2019 novel coronavirus ATN (acute tubular necrosis) B12 deficiency anemia COVID Diarrhea Essential hypertension GODFREY (generalized anxiety disorder) Hypertriglyceridemia Hypotension Leukocytosis Mild mental handicap No pertinent family history PCOS (polycystic ovarian syndrome) Pulmonary embolism Yeast detected Coco parapsilosis 04/29, endotracheal aspirate Trichosporosis [facility] Surgical History No pertinent past surgical history Family History Father Cancer Social History Smoking and tobacco status: never smoked Alcohol intake: never History of recent travel: No Female Reproductive History: Date of last menstrual period: 04/09/21 Vitals/I&O/Wt Last Vital Signs Temp 97.2 F L 12/19/21 20:55 Pulse 71 12/20/21 04:30 Resp 19 H 12/20/21 05:41 BP 142/81 12/20/21 04:30 Pulse Ox 100 12/20/21 04:30 O2 Del Method 12/20/21 01:30 12/19/21 12/19/21 12/20/21 14:59 22:59 06:59 Intake Total 1000 / 1000 Balance 1000 / 1000 Weight last 48 hrs Weight 49.442 kg Physical Exam Resp: COMMON NORMALS: normal respiratory effort, No retractions, No use of accessory muscles and clear to auscultation bilaterally EFFORT & INSPECTION: Yes symmetric chest movement AUSCULTATION: clear to auscultation bilaterally Cardio: COMMON NORMALS: regular rate, regular rhythm, S1 normal heart sound present, S2 normal heart sound present, No gallops present (Cardio), No murmurs present (Cardio), No rub (Cardio) and Peripheral pulses 2+ throughout RATE: regular rate RHYTHM: regular rhythm HEART SOUNDS: S1 normal heart sound present and S2 normal heart sound present PERIPHERAL PULSES: Peripheral pulses 2+ throughout GI: COMMON NORMALS: Normal to inspection, nondistended, normoactive bowel sounds present AUSCULTATION: Yes normoactive bowel sounds PALPATION: Yes Soft to palpation and Yes No hepatosplenomegaly present RECTAL EXAM: deferred OTHER: Mild epigastric tenderness present, no guarding no rigidity, no rebound tenderness Extremity: COMMON NORMALS: no clubbing, cyanosis or edema and no pedal edema Data : 12/20/21 00:15 12/20/21 00:15 A&P Assessment and plan (1) Hypertriglyceridemia: (2) Acute pancreatitis: (3) Leukocytosis: (4) Transaminitis: Plan 41 year old female with past medical history of COVID, hypertriglyceridemia associated acute pancreatitis, came in today with chief complaint of upper abdominal pain nausea vomiting, at home. Assessment: Acute pancreatitis: Possible gallstone associated, has prior history of hypertriglyceridemia associated acute pancreatitis. Cholelithiasis Transaminitis Leukocytosis Plan: N.p.o. except for medicines Pain control Gentle IV hydration Outpatient surgery follow-up for management of cholelithiasis Monitor CMP Follow lipid panel: CODE STATUS: Full code DVT prophylaxis: On Lovenox Attestations Medical Necessity Statement*: Patient is in hospital for management of acute pancreatitis. Time Spent in Patient Care: Greater than 35 minutes (>than 50% of time spent in counselling and/or direct pt care on unit). Coding Level of Care Code Acute Video Presentation Operator for Chg Fwd Exam Expanded Problem Focused Diagnoses Hypertriglyceridemia E78.1 Acute pancreatitis K85.90 Leukocytosis D72.829 Transaminitis R74.01
[2021-12-20] MEDS: famotidine 20 mg/2 mL INJ IVP ×2 (06:11→17:34)
[2021-12-20] MEDS: enoxaparin 40 mg/0.4 mL Syringe SUBCUT (06:11)
[2021-12-20] MEDS: sodium chloride 0.9% 1,000 ML 100 ML IV ×2 (06:34→15:31)
--- NOTE | 2021-12-20 10:55 | PM.MISC ---
Miscellaneous Note Note: Seen this AM. Family at bedside Feels comfortable at this point. Not experiencing nausea/vomiting. Abdomen soft, mildly tender to palpation around epigastric region. Continue current management. Keep NPO for now and continue IV fluids.
[2021-12-20] MEDS: acetaminophen 325 mg Tablet 650 MG PO (12:16)
[2021-12-20] MEDS: ketorolac 30 mg/mL INJ IVP ×2 (12:24→20:34)
[2021-12-21] VITALS (11 sets, daily range): BP systolic 120–136; BP diastolic 79–89; PULSE 66–104; RESP 14–18; TEMP 36.6–36.8; O2SAT 95–100
[2021-12-21] MEDS: sodium chloride 0.9% 1,000 ML 100 ML IV ×3 (01:52→22:16)
[2021-12-21] MEDS: acetaminophen 325 mg Tablet 650 MG PO (01:54)
[2021-12-21] MEDS: ondansetron 2 mg/ML SDV 2 mL 4 MG IVP (03:45)
[2021-12-21 04:16] LABS: Basophils # 0.1 10^3/uL (0.0-0.1); Basophils % 0.6 %; Eosinophils # 0.2 10^3/uL (0.0-0.8); Eosinophils % 1.7 %; Hematocrit 40.5 % (37.0-47.0); Hemoglobin 12.7 g/dL (11.5-15.3); Lymphocytes # 2.9 10^3/uL (0.8-4.8); Lymphocytes % 29.2 %; Mean Corpuscular HGB Conc 31.4 g/dL (30.0-36.0); Mean Corpuscular Hemoglobin 29.7 pg (28.0-34.0); Mean Corpuscular Volume 94.6 fl (81-99); Mean Platelet Volume 11.5 fL (7.4-10.4); Monocytes # 0.9 10^3/uL (0.2-0.9); Monocytes % 8.6 %; Neutrophils # 5.95 10^3/uL (1.8-7.7); Neutrophils % 59.5 %; Nucleated Red Blood Cells % 0 %; Platelet Count 242 10^3/cmm (130-400); Red Blood Count 4.28 10^6/uL (4.1-5.3); Red Cell Distribution Width 13.1 % (12.1-15.1)
[2021-12-21 04:41] LABS: Estmated Average Glucose 111; Hemoglobin A1C 5.5 % (4.0-6.0)
[2021-12-21 04:42] LABS: Alanine Aminotransferase 57 U/L (0-33); Albumin Level 3.7 g/dL (3.5-5.2); Alkaline Phosphatase 227 U/L (35-105); Aspartate Amino Transferase 60 U/L (0-32); Blood Urea Nitrogen 15 mg/dL (6-20); Calcium 8.9 mg/dL (8.5-10.5); Carbon Dioxide 18 mmol/L (22-29); Chloride 103 mmol/L (98-107); Chol HDL Ratio 5.78 mg/dL (0.0-4.40); Cholesterol 260 mg/dL (0-200); Globulin 3.6 g/dL (1.3-4.6); Glomerular Filtration Rate 110.7 mL/min (90-130); Glucose 78 mg/dL (65-115); HDL Cholesterol 45 mg/dL (60-100); LDL Cholesterol Calculated 168 mg/dL (50-129); LDL HDL Ratio 3.73 RATIO (0.00-3.22); Magnesium 1.7 mg/dL (1.7-2.3); Osmolality Calculated 288 mOsm/kg (285-295); Phosphorus 4.4 mg/dL (2.5-4.5); Sodium 139 mmol/L (136-145); Total Bilirubin 0.4 mg/dL (0.15-1.2); Total Protein 7.3 g/dL (6.6-8.7); Triglycerides 235 mg/dL (0-150)
[2021-12-21 04:44] LABS: Anion Gap 21.7 (5-19); Potassium 3.7 mmol/L (3.5-5.1)
[2021-12-21] MEDS: famotidine 20 mg/2 mL INJ IVP (05:39)
[2021-12-21] MEDS: ketorolac 30 mg/mL INJ IVP ×3 (05:39→20:21)
[2021-12-21] MEDS: enoxaparin 40 mg/0.4 mL Syringe SUBCUT (06:18)
[2021-12-21] MEDS: apixaban 5 mg Tablet PO ×2 (09:05→17:26)
[2021-12-21] MEDS: morphine 4 mg/mL SDV 1 mL 2 MG IVP ×2 (09:38→16:20)
--- NOTE | 2021-12-21 12:05 | PC.CHAP ---
Pastoral Care Encounter/Spiritual Assessment Type of Contact [] Declined architectural design lecturer visit [] Patient/Family/Request visit [] Outpatient visit [] Follow-up visit [] Physician referral [] Code/Alert [x] Routine visit [] Staff referral [] Actively dying [] Patient sleeping [] Family support [] [] Out of room [] Palliative care [] [] Receiving care in room [] Pre-surgical visit [] Trauma [] Long length of stay [] ICU visit [] Other: Relational/Emotional Strength [x] Patient feels connected with others/family/visitors/staff [] Distress [] Loneliness/isolation [] Abandonment Spirituality of Patient [x] Person of Emelina [] Attends Temple of their Emelina [x] Believes in Prayer [] Reads Bible or Church materials [] There are Spiritual issues to be addressed Time Study Statistician Interventions [x] Prayer [x] Active listening x[] Non-anxious presence [] Spiritual/emotional support [] Crisis/trauma care [] Spiritual counseling [] Bereavement support [] Provided bereavement packet [] Provided Bible/devotional materials [] Provided toy/stuffed animal, coloring book to patient or family member [] Provided Communion [] Anointing/[place] [] Salvation [x] Completed spiritual assessment [] Other: Impact on Illness or Injury [] Angry [] Fearful [] Anxious [] Often cries [] Exhaustion [] Unable to work [] Unable to attend religious [] Unable to walk/stand [] Unable to read [] Unable to drive [] Unable to eat/drink [] Unable to sleep [] Unable to be with family [] Patient intubated [] Other: Summary Time spent with patient
--- NOTE | 2021-12-21 18:18 | P.PN_ITS ---
Subjective Subjective: Hospital course, labs appreciated. Seen with family at bedside. As per the family patient had extreme nausea and vomiting overnight. On examination patient lying comfortably in bed. Denies any nausea, vomiting, headache. Patient seems to be at her baseline mentation. Vitals/I&O/Wt Last Vital Signs Temp 98.0 F 12/21/21 16:00 Pulse 91 12/21/21 16:00 Resp 16 12/21/21 16:20 BP 128/81 12/21/21 16:00 Pulse Ox 96 12/21/21 16:00 O2 Del Method 12/21/21 16:00 12/21/21 12/21/21 12/21/21 06:59 14:59 22:59 Intake Total 1000 / 1895 1105 / 1105 120 / 1225 Balance 1000 / 1595 1105 / 1105 120 / 1225 Weight last 48 hrs Weight 49.442 kg Weight 49.442 kg Physical Exam Resp: COMMON NORMALS: normal respiratory effort, No retractions, No use of accessory muscles and clear to auscultation bilaterally EFFORT & INSPECTION: Yes symmetric chest movement AUSCULTATION: clear to auscultation bilaterally Cardio: COMMON NORMALS: regular rate, regular rhythm, S1 normal heart sound present, S2 normal heart sound present, No gallops present (Cardio), No murmurs present (Cardio), No rub (Cardio) and Peripheral pulses 2+ throughout RATE: regular rate RHYTHM: regular rhythm HEART SOUNDS: S1 normal heart sound present and S2 normal heart sound present PERIPHERAL PULSES: Peripheral pulses 2+ throughout GI: COMMON NORMALS: Normal to inspection, nondistended, normoactive bowel sounds present, Soft to palpation and No hepatosplenomegaly present AUSCULTATION: Yes normoactive bowel sounds PALPATION: Yes Soft to palpation a nd Yes No hepatosplenomegaly present RECTAL EXAM: deferred OTHER: Mild epigastric tenderness present, no guarding no rigidity, no rebound tenderness Extremity: COMMON NORMALS: no clubbing, cyanosis or edema and no pedal edema Data : 12/21/21 03:47 12/21/21 03:47 A&P Assessment and plan (1) Hypertriglyceridemia: (2) Acute pancreatitis: (3) Leukocytosis: (4) Transaminitis: Plan 41 year old female with past medical history of COVID, hypertriglyceridemia associated acute pancreatitis, came in today with chief complaint of upper abdominal pain nausea vomiting, at home. Assessment: Acute pancreatitis: Possible gallstone associated, has prior history of hy pertriglyceridemia associated acute pancreatitis. Cholelithiasis Transaminitis Leukocytosis Plan: N.p.o. except medications. Restart home Eliquis, metoprolol succinate, Celexa. Start on clear liquid diet. Discussed with family and nurse at bedside regarding multiple small meals. Protonix IV 40 mg daily. If patient's symptoms worsen or is unable to tolerate clear liquid diet we will plan for further work-up for cholelithiasis to rule out gallstone pancreatitis with MRCP most likely. Normal saline 100 cc/h. Appreciate triglycerides. Monitor CBC and CMP daily. CODE STATUS: Full code DVT prophylaxis: On Lovenox Attestations Medical Necessity Statement*: Requires further hospitalization for management of pancreatitis Time Spent in Patient Care: Greater than 35 minutes Coding Level of Care Code Acute Telephoto Engineer for Chg Fwd Diagnoses Hypertriglyceridemia E78.1 Acute pancreatitis K85.90 Leukocytosis D72.829 Transaminitis R74.01
[2021-12-22] VITALS (8 sets, daily range): BP systolic 123–164; BP diastolic 73–90; PULSE 69–89; RESP 16–18; TEMP 36.4–36.7; O2SAT 95–100
[2021-12-22] MEDS: morphine 4 mg/mL SDV 1 mL 2 MG IVP ×3 (00:42→13:28)
[2021-12-22 04:42] LABS: Basophils % 0.6 %; Eosinophils # 0.1 10^3/uL (0.0-0.8); Eosinophils % 1.6 %; Hematocrit 32.5 % (37.0-47.0); Hemoglobin 10.4 g/dL (11.5-15.3); Lymphocytes % 29.4 %; Mean Corpuscular Hemoglobin 29.5 pg (28.0-34.0); Mean Corpuscular Volume 92.3 fl (81-99); Mean Platelet Volume 11.6 fL (7.4-10.4); Monocytes # 0.7 10^3/uL (0.2-0.9); Neutrophils # 3.87 10^3/uL (1.8-7.7); Nucleated Red Blood Cells % 0 %; Platelet Count 231 10^3/cmm (130-400); Red Blood Count 3.52 10^6/uL (4.1-5.3); Red Cell Distribution Width 13.1 % (12.1-15.1); White Blood Count 6.7 10^3/uL (4.0-10.0)
[2021-12-22 05:22] LABS: Alanine Aminotransferase 51 U/L (0-33); Albumin Level 3.3 g/dL (3.5-5.2); Alkaline Phosphatase 194 U/L (35-105); Anion Gap 21.2 (5-19); Aspartate Amino Transferase 53 U/L (0-32); Blood Urea Nitrogen 8 mg/dL (6-20); Calcium 8.5 mg/dL (8.5-10.5); Carbon Dioxide 18 mmol/L (22-29); Chloride 106 mmol/L (98-107); Glomerular Filtration Rate 110.7 mL/min (90-130); Glucose 80 mg/dL (65-115); Osmolality Calculated 289 mOsm/kg (285-295); Potassium 4.2 mmol/L (3.5-5.1); Sodium 141 mmol/L (136-145); Total Bilirubin 0.4 mg/dL (0.15-1.2); Total Protein 5.3 g/dL (6.6-8.7)
[2021-12-22] MEDS: citalopram 20 mg Tablet PO (07:05)
[2021-12-22] MEDS: metoprolol succinate ER (24 HR) 50 mg Tablet 25 MG PO (07:05)
[2021-12-22] MEDS: apixaban 5 mg Tablet PO ×2 (08:37→17:18)
[2021-12-22] MEDS: sodium chloride 0.9% 1,000 ML 100 ML IV (08:37)
[2021-12-22] MEDS: ketorolac 30 mg/mL INJ IVP (08:37)
[2021-12-22] MEDS: pantoprazole 40 mg SDV IVP (08:38)
--- NOTE | 2021-12-22 15:26 | P.PN_ITS ---
Subjective Subjective: No acute events overnight. Patient denies any nausea or vomiting. Having clear liquid diet. Continues to have occasional abdominal pain. Still requiring significant amount of pain medications including morphine and IV Toradol. Vitals/I&O/Wt Last Vital Signs Temp 97.6 F 12/22/21 15:00 Pulse 88 12/22/21 15:00 Resp 16 12/22/21 15:00 BP 134/90 12/22/21 15:00 Pulse Ox 95 12/22/21 15:00 O2 Del Method 12/22/21 07:48 12/22/21 12/22/21 12/22/21 06:59 14:59 22:59 Intake Total 1180 / 1180 Balance 1180 / 1180 Physical Exam Resp: COMMON NORMALS: normal respiratory effort, No retractions, No use of accessory muscles and clear to auscultation bilaterally EFFORT & INSPECTION: Yes symmetric chest movement AUSCULTATION: clear to auscultation bilaterally Cardio: COMMON NORMALS: regular rate, regular rhythm, S1 normal heart sound present, S2 normal heart sound present, No gallops present (Cardio), No murmurs present (Cardio), No rub (Cardio) and Peripheral pulses 2+ throughout RATE: regular rate RHYTHM: regular rhythm HEART SOUNDS: S1 normal heart sound present and S2 normal heart sound present PERIPHERAL PULSES: Peripheral pulses 2+ throughout GI: COMMON NORMALS: Normal to inspection, nondistended, normoactive bowel sounds present, Soft to palpation and No hepatosplenomegaly present AUSCULTATION: Yes normoactive bowel sounds PALPATION: Yes Soft to palpation and Yes No hepatosplenomegaly present RECTAL EXAM: deferred OTHER: Mild epigastric tenderness present, no guarding no rigidity, no rebound tenderness Extremity: COMMON NORMALS: no clubbing, cyanosis or edema and no pedal edema Data : 12/22/21 04:17 12/22/21 04:17 A&P Assessment and plan (1) Hypertriglyceridemia: (2) Acute pancreatitis: (3) Leukocytosis: (4) Transaminitis: Plan 41 year old female with past medical history of COVID, hypertriglyceridemia associated acute pancreatitis, came in today with chief complaint of upper abdominal pain nausea vomiting, at home. Assessment: Acute pancreatitis: Possible gallstone associated, has prior history of hypertriglyceridemia associated acute pancreatitis. Cholelithiasis Transaminitis Leukocytosis Plan: Continue with clear liquid diet. Stop IV pain medication switched to tramadol 50 mg every 4 hourly. Restart home Eliquis, metoprolol succinate, Celexa. Discussed with family and nurse at bedside regarding multiple small meals. Protonix IV 40 mg daily. If patient's symptoms worsen or is unable to tolerate clear liquid diet we will plan for further work-up for cholelithiasis to rule out gallstone pancreatitis with MRCP most likely. For now continue with normal saline at 50 cc an hour. Appreciate triglycerides. Monitor CBC and CMP daily. CODE STATUS: Full code DVT prophylaxis: On Lovenox Attestations Medical Necessity Statement*: Requires further hospitalization while for management of acute pancreatitis while diet is gradually advanced and pain medications were converted to oral Time Spent in Patient Care: Greater than 35 minutes Coding Level of Care Code Acute Board Certified Arts Therapist for Chg Fwd Diagnoses Hypertriglyceridemia E78.1 Acute pancreatitis K85.90 Leukocytosis D72.829 Transaminitis R74.01
[2021-12-22] MEDS: TRAMadol 50 mg Tablet PO (18:29)
[2021-12-22] MEDS: sodium chloride 0.9% 1,000 ML 50 ML IV (20:49)
[2021-12-23 04:10] VITALS: BP 135/91; PULSE 68; RESP 16; TEMP 36.6; O2SAT 97
[2021-12-23] MEDS: citalopram 20 mg Tablet PO (05:02)
[2021-12-23] MEDS: metoprolol succinate ER (24 HR) 50 mg Tablet 25 MG PO (05:02)
[2021-12-23 05:15] LABS: Basophils % 0.7 %; Eosinophils # 0.1 10^3/uL (0.0-0.8); Eosinophils % 2.5 %; Hematocrit 34.1 % (37.0-47.0); Lymphocytes # 1.7 10^3/uL (0.8-4.8); Lymphocytes % 31.4 %; Mean Corpuscular HGB Conc 32.3 g/dL (30.0-36.0); Mean Corpuscular Hemoglobin 29.8 pg (28.0-34.0); Mean Corpuscular Volume 92.4 fl (81-99); Mean Platelet Volume 11.5 fL (7.4-10.4); Monocytes # 0.6 10^3/uL (0.2-0.9); Monocytes % 10.8 %; Neutrophils % 54.2 %; Nucleated Red Blood Cells % 0 %; Platelet Count 243 10^3/cmm (130-400); Red Blood Count 3.69 10^6/uL (4.1-5.3); Red Cell Distribution Width 13.2 % (12.1-15.1); White Blood Count 5.5 10^3/uL (4.0-10.0)
[2021-12-23 05:34] LABS: Alanine Aminotransferase 58 U/L (0-33); Albumin Level 2.9 g/dL (3.5-5.2); Alkaline Phosphatase 193 U/L (35-105); Anion Gap 22.7 (5-19); Aspartate Amino Transferase 55 U/L (0-32); Blood Urea Nitrogen 6 mg/dL (6-20); Calcium 8.7 mg/dL (8.5-10.5); Carbon Dioxide 15 mmol/L (22-29); Chloride 104 mmol/L (98-107); Glomerular Filtration Rate 110.7 mL/min (90-130); Glucose 84 mg/dL (65-115); Osmolality Calculated 283 mOsm/kg (285-295); Potassium 3.7 mmol/L (3.5-5.1); Sodium 138 mmol/L (136-145); Total Bilirubin 0.3 mg/dL (0.15-1.2); Total Protein 5.9 g/dL (6.6-8.7)
[2021-12-23 07:57] VITALS: BP 149/89; PULSE 57; RESP 16; TEMP 36.4; O2SAT 98
[2021-12-23] MEDS: TRAMadol 50 mg Tablet PO (08:13)
[2021-12-23] MEDS: apixaban 5 mg Tablet PO (08:14)
[2021-12-23] MEDS: pantoprazole 40 mg SDV IVP (08:14)
--- NOTE | 2021-12-23 11:08 | PC.SOCIAL ---
IMM update IMM updated with patient's mom, copy of page 2 provided. She verbalized understanding. Copy in chart initialed, dated and timed.
[2021-12-23 11:25] VITALS: BP 135/84; PULSE 77; RESP 18; TEMP 36.6; O2SAT 98
--- NOTE | 2021-12-23 13:30 | PM.DCS ---
Discharge Providers Date of Admission: 12/20/21 14:58 Date of Discharge: December 23, 2021 Attending Provider at Admission: Dedrick Rahman MD Attending Provider at Discharge: Pratik Downs MD Primary Care Provider: YAMIL Hoffman Diagnoses at Discharge Discharge Diagnosis (1) Hypertriglyceridemia: Status: Inactive (2) Acute pancreatitis: Status: Inactive (3) Leukocytosis: Status: Acute (4) Transaminitis: Status: Acute Reason for Visit Reason for Visit: Vomiting Brief History: History as per HPI: Precious Mckeon is a 41 year old female with past medical history of COVID, hypertriglyceridemia associated acute pancreatitis, came in today with chief complaint of upper abdominal pain nausea vomiting, at home, She was seen earlier in the day for chest discomfort and was discharged after appropriate chest pain work-up went home and started vomiting after eating cheeseburger, she vomited several times at home, denies any hematemesis . Currently she denies any fever cough shortness of breath, Sick contact. Upon arrival arrival in the ER she was worked up for above-mentioned complaint. Pertinent imaging studies: ?CT abdomen pelvis w con: Is consistent with acute pancreatitis:?There are moderate presumed inflammatory changes around the pancreas, suspicious for acute pancreatitis. US gall bladder:?Cholelithiasis, No biliary tree dilation. Pertinent labs: WBC 14.9 , H&H:13/39 , PLT : 320 , sodium 136 potassium 4.3, BUN serum creatinine: 17/0.8 , random blood sugar: 146 , Serum calcium 9.9, AST : 57 ,ALT : 60, ALP: 240 lipase 215 Lipid panel pending. Hospital Course Hospital Course Patient [facility] for evaluation of pancreatitis. Ultrasound abdomen was done which showed cholelithiasis but was negative for obstructive pathology. She was treated conservatively with IV hydration and pain medications. Her diet was gradually advanced and she is able to tolerate clear liquid diet for last 2 days. Gradually her IV pain medication were transitioned to oral. Patient has been able to tolerate diet and pain medications for last 24 hours. She has been discharged in medically stable condition with advised to gradually advance her diet from clear liquid to full liquid to soft her diet over the next couple of weeks. She is advised to take multiple small meals. Care were discussed in detail with patient and patient's family at bedside. All the questions were answered. Physical Exam Resp: COMMON NORMALS: normal respiratory effort, No retractions, No use of accessory muscles and clear to auscultation bilaterally EFFORT & INSPECTION: Yes symmetric chest movement AUSCULTATION: clear to auscultation bilaterally Cardio: COMMON NORMALS: regular rate, regular rhythm, S1 normal heart sound present, S2 normal heart sound present, No gallops present (Cardio), No murmurs present (Cardio), No rub (Cardio) and Peripheral pulses 2+ throughout RATE: regular rate RHYTHM: regular rhythm HEART SOUNDS: S1 normal heart sound present and S2 normal heart sound present PERIPHERAL PULSES: Peripheral pulses 2+ throughout GI: COMMON NORMALS: Normal to inspection, nondistended, normoactive bowel sounds present, Soft to palpation and No hepatosplenomegaly present AUSCULTATION: Yes normoactive bowel sounds PALPATION: Yes Soft to palpation and Yes No hepatosplenomegaly present RECTAL EXAM: deferred OTHER: Mild epigastric tenderness present, no guarding no rigidity, no rebound tenderness Extremity: COMMON NORMALS: no clubbing, cyanosis or edema and no pedal edema Discharge Data Studies Completed and Pending Completed Studies During Hospitalization Category Date Time Status CT abdomen pelvis w con* [id number] Urgent Cat Scan 12/20/21 01:09 Completed US gall bladder [id number] Stat Ultrasound 12/20/21 01:33 Completed Radiology Impressions Abdomen/Pelvis CT 12/20/21 01:09 IMPRESSION: 1. Findings compatible with acute pancreatitis, see above discussion. 2. The patient's known gallstones are not definitely visible on CT. Borderline/mildly distended gallbladder, additional details above. 3. No free air or bowel distention. No evidence to strongly suggest bowel obstruction. 4. One or possibly 2 adjacent cysts involving the left ovary, see above details and discussion. 5. No evidence to suggest appendicitis, however a normal appendix is not definitely visible. 6. Other findings discussed above. Gallbladder Ultrasound 12/20/21 01:33 IMPRESSION: 1. Cholelithiasis, see additional details above. 2. No biliary tree dilation. 3. Other findings discussed above. Laboratory Results WBC 5.5 10^3/uL (4.0-10.0) 12/23/21 04:30 RBC 3.69 10^6/uL (4.1-5.3) L 12/23/21 04:30 Hgb 11.0 g/dL (11.5-15.3) L 12/23/21 04:30 Hct 34.1 % (37.0-47.0) L 12/23/21 04:30 MCV 92.4 fl (81-99) 12/23/21 04:30 MCH 29.8 pg (28.0-34.0) 12/23/21 04:30 MCHC 32.3 g/dL (30.0-36.0) 12/23/21 04:30 RDW 13.2 % (12.1-15.1) 12/23/21 04:30 Plt Count 243 10^3/cmm (130-400) 12/23/21 04:30 MPV 11.5 fL (7.4-10.4) H 12/23/21 04:30 Neut % (Auto) 54.2 % 12/23/21 04:30 Lymph % (Auto) 31.4 % 12/23/21 04:30 [place] % (Auto) 10.8 % 12/23/21 04:30 Eos % (Auto) 2.5 % 12/23/21 04:30 Baso % (Auto) 0.7 % 12/23/21 04:30 Neut # (Auto) 3.00 10^3/uL (1.8-7.7) 12/23/21 04:30 Lymph # (Auto) 1.7 10^3/uL (0.8-4.8) 12/23/21 04:30 [place] # (Auto) 0.6 10^3/uL (0.2-0.9) 12/23/21 04:30 Eos # (Auto) 0.1 10^3/uL (0.0-0.8) 12/23/21 04:30 Baso # (Auto) 0.0 10^3/uL (0.0-0.1) 12/23/21 04:30 Nucleated RBC % (auto) 0 % 12/23/21 04:30 Nucleated RBCs # 0.0 /100WBC 12/23/21 04:30 Sodium 138 mmol/L (136-145) 12/23/21 04:30 Potassium 3.7 mmol/L (3.5-5.1) 12/23/21 04:30 Chloride 104 mmol/L (98-107) 12/23/21 04:30 Carbon Dioxide 15 mmol/L (22-29) L 12/23/21 04:30 Anion Gap 22.7 (5-19) H 12/23/21 04:30 BUN 6 mg/dL (6-20) 12/23/21 04:30 Creatinine 0.6 mg/dL (0.5-0.9) 12/23/21 04:30 GFR Calculation 110.7 mL/min (90-130) 12/23/21 04:30 Glucose 84 mg/dL (65-115) 12/23/21 04:30 Estimat Average Glucose 111 12/21/21 03:47 Hemoglobin A1c 5.5 % (4.0-6.0) 12/21/21 03:47 Calculated Osmolality 283 mOsm/kg (285-295) L 12/23/21 04:30 Calcium 8.7 mg/dL (8.5-10.5) 12/23/21 04:30 Phosphorus 4.4 mg/dL (2.5-4.5) 12/21/21 03:47 Magnesium 1.7 mg/dL (1.7-2.3) 12/21/21 03:47 Total Bilirubin 0.3 mg/dL (0.15-1.2) 12/23/21 04:30 AST 55 U/L (0-32) H 12/23/21 04:30 ALT 58 U/L (0-33) H 12/23/21 04:30 Alkaline Phosphatase 193 U/L (35-105) H 12/23/21 04:30 Total Protein 5.9 g/dL (6.6-8.7) L 12/23/21 04:30 Albumin 2.9 g/dL (3.5-5.2) L 12/23/21 04:30 Globulin 3.0 g/dL (1.3-4.6) 12/23/21 04:30 Triglycerides 235 mg/dL (0-150) H 12/21/21 03:47 Cholesterol 260 mg/dL (0-200) H 12/21/21 03:47 LDL Cholesterol, Calc 168 mg/dL (50-129) H 12/21/21 03:47 HDL Cholesterol 45 mg/dL (60-100) L 12/21/21 03:47 LDL/HDL Ratio 3.73 RATIO (0.00-3.22) H 12/21/21 03:47 Cholesterol/HDL Ratio 5.78 mg/dL (0.0-4.40) H 12/21/21 03:47 Lipase 215 U/L (13-60) H 12/20/21 00:15 Urine Color Yellow (Yellow) 12/20/21 02:50 Urine Appearance Clear (CLEAR) 12/20/21 02:50 Urine pH 5.5 (5-7) 12/20/21 02:50 Ur Specific [place] 1.015 (1.005-1.030) 12/20/21 02:50 Urine Protein Negative (Negative) 12/20/21 02:50 Urine Glucose (UA) Negative (Normal) 12/20/21 02:50 Urine Ketones Negative (Negative) 12/20/21 02:50 Urine Blood Negative (Negative) 12/20/21 02:50 Urine Nitrate Negative 12/20/21 02:50 Urine Bilirubin Negative (Negative) 12/20/21 02:50 Urine Urobilinogen 0.2 mg/dL (Negative) 12/20/21 02:50 Ur Leukocyte Esterase Negative (Negative) 12/20/21 02:50 Urine HCG, Qual Negative (Negative) 12/20/21 02:50 Vitals Last Vital Signs Temp 97.8 F 12/23/21 11:25 Pulse 77 12/23/21 11:25 Resp 18 12/23/21 11:25 BP 135/84 12/23/21 11:25 Pulse Ox 98 12/23/21 11:25 O2 Del Method 12/23/21 11:25 Discharge Plan Discharge Patient Disposition: Home Health Service Condition: Stable Prescriptions: New tramadol 50 mg Tablet 50 mg PO Q6H PRN (Reason: Moderate Pain) Qty: 14 0RF Continued ondansetron 4 mg tablet,disintegrating 4 mg PO Q8H PRN (Reason: nausea and vomiting) Qty: 20 0RF citalopram 20 mg tablet 20 mg PO QAM Eliquis 5 mg tablet 5 mg PO BID potassium chloride 10 mEq tablet,ER particles/crystals 10 meq PO DAILY Qty: 5 0RF metoprolol succinate [Toprol XL] 50 mg tablet extended release 24 hr 25 mg PO QAM Qty: 30 0RF Rx Instructions: hold if sbp<90mmhg pantoprazole [Protonix] 40 mg tablet,delayed release (DR/EC) 40 mg PO DAILY Qty: 30 0RF Held fenofibrate nanocrystallized 145 mg tablet 145 mg PO QAM Hold Instructions: Resume on 01/06/22. metformin 500 mg Tablet 500 mg PO BID Hold Instructions: Resume on 01/06/22. Discontinued hydrochlorothiazide 25 mg Tablet 25 mg PO DAILY Discharge Orders: Discharge Order (Routine); Ordered 12/23/21 Ordered By: Pratik Downs Referrals: [facility] [Outside] Harrell,YAMIL Larsen [Primary Care Provider] - 7-10 days Discharge Diet: Advance as tolerated Discharge Activity: Resume usual activity and Increase activity as tolerated Patient Instructions: Opioid Safety Activity Restrictions/Additional Instructions: Please advance diet gradually from clear liquid to GI soft for the next 2 weeks. Please follow-up with your primary care for over the next 1 week. Please take multiple small meals. Discharge Attestations Time Spent in Discharge Care*: greater than 30 min Specific Discharge Activities: educating and/or supporting family/caregiver, discussing with pcp/other providers, discussing with case management specialist/social workers/dc planners, documenting/other paperwork and evaluating patient/reviewing data Status at Discharge: Cognitive status at discharge: mildly impaired cognition, Behavioral status at discharge: cooperative, Functional status at discharge: independent ambulation, Overall status at discharge: patient is progressing back to baseline Quality Metrics Clinical Quality Measures [ No reported AMI, CVA or VTE this stay] Coding Level of Care Code Acute Chg FW DC note Diagnoses Hypertriglyceridemia E78.1 Acute pancreatitis K85.90 Leukocytosis D72.829 Transaminitis R74.01
[2021-12-23 14:36] VITALS: BP 135/84; PULSE 77; RESP 18; TEMP 36.6; O2SAT 98
== END 2021-12-23 14:38 | disposition home health service (06) | DRG 440 ==
LOC: ER 12-20 05:43 → MEDSURG 12-20 06:01
PROVIDERS: Nurse Practitioner Family; Admitting Provider Internal Medicine; Emergency Provider Emergency Medicine; PCP Nurse Practitioner Family; Visit Provider Student in an Organized Health Care Education/Training Program
DX: K85.90 Acute pancreatitis without necrosis or infection, unspecified (principal); K80.20 Calculus of gallbladder without cholecystitis without obstruction; Z86.16 Personal history of COVID-19; I10 Essential (primary) hypertension; F41.1 Generalized anxiety disorder; E78.1 Pure hyperglyceridemia; E28.2 Polycystic ovarian syndrome; Z86.711 Personal history of pulmonary embolism; Z79.01 Long term (current) use of anticoagulants
CPT/HCPCS: 36415; 71045; 74177; 76705; 80053; 80061; 81003; 81025; 83036; 83690; 83735; 84100; 84484; 85025; 93005; 96372; 96374; 96375; 96376; 99285; C9113; G0378; J1650; J1885; J2270; J2405; J3010; J3490; J7030; Q9967

== ENCOUNTER 2022-11-09 12:09 | Inpatient (IN) | payer MEDICARE, MEDICAID, SELFPAY ==
[2022-11-09] VITALS (9 sets, daily range): BP systolic 101–163; BP diastolic 69–97; PULSE 81–100; RESP 16–19; TEMP 36.8–36.9; O2SAT 90–100
--- NOTE | 2022-11-09 12:26 | W.ED.ABDPA2 ---
HPI - Abdominal Pain General: Chief Complaint: Abdominal Pain Stated Complaint: n/v swollen adb Time Seen by Provider: 11/09/22 12:24 Source: patient Mode of arrival: ambulatory History of Present Illness: 42-year-old female presents emergency room complaining of abdominal pain. Appears mostly epigastric upper quadrants. She had a history of cholelithiasis in the past as well as pancreatitis although as best her family can remember was not noted to choledocholithiasis she never required MRCP or ERCP. reviewing her chart she had pancreatitis related to hypertriglyceridemia overnight she had increasing abdominal pain with nausea and vomiting no hematemesis coffee-ground emesis no dysuria urgency or frequency bowel movements have been normal and no fever reported. Patient is on oral anticoagulants. MD elicited complaint: abdominal pain Onset (ago): day(s) Pain Consistency: constant Associated Symptoms: Reports bloating, GI cramping, nausea and poor appetite; Denies no associated symptoms, anorexia, belching, change in bowel habits, change in stool character, chills, coffee ground emesis, constipation, diarrhea, dyspepsia, dysuria, excessive flatus, fever(s), heartburn, hematochezia, hematuria, hematemesis, fecal incontinence, loose stools, melena, vomiting and other Review of Systems Const: Denies: fever(s) or chills Card: Denies: chest pain Resp: Denies: dyspnea, productive cough or non-productive cough GI: Reports: abdominal pain, nausea, bloating and GI cramping; Denies: vomiting, hematemesis, coffee ground emesis, heartburn, diarrhea, constipation, belching, excessive flatus, fecal incontinence, change in bowel habits, change in stool character, hematochezia, melena or other : Denies: dysuria, urinary frequency, urinary urgency or hematuria Skin/Breast: Denies: rash or pruritus PFSH ED PFSH: Medical History Abnormal transaminases Acute encephalopathy Acute kidney injury Acute pancreatitis Acute respiratory distress syndrome (ARDS) due to 2019 novel coronavirus Acute respiratory failure requiring reintubation 05/06 Anemia Aspiration pneumonia ATN (acute tubular necrosis) B12 deficiency anemia [place]oco parapsilosis infection COVID Diarrhea Essential hypertension GODFREY (generalized anxiety disorder) Hypertriglyceridemia Hypertriglyceridemia Hypotension Hypovolemic shock Increased anion gap metabolic acidosis Lactic acidosis Leukocytosis Mild mental handicap No pertinent family history PCOS (polycystic ovarian syndrome) Persistent fever Pneumonia Pulmonary embolism Shock Trichosporonosis Yeast detected [place] parapsilosis 2/, endotracheal aspirate Trichosporosis ashaii2/25 Surgical History No pertinent past surgical history S/P dialysis catheter insertion Permacath3/1 Family History Father Cancer Social History Smoking and tobacco status: never smoked Alcohol intake: never Physical Exam Const: GENERAL APPEARANCE: cooperative ORIENTATION/CONSCIOUSNESS: Yes awake HENMT: COMMON NORMALS: normocephalic, atraumatic and hearing grossly normal bilaterally HEAD & SCALP: normocephalic and atraumatic Resp: COMMON NORMALS: normal respiratory effort, No retractions, No use of accessory muscles and clear to auscultation bilaterally AUSCULTATION: clear to auscultation bilaterally Cardio: COMMON NORMALS: regular rate, regular rhythm and No murmurs present (Cardio) RATE: regular rate RHYTHM: regular rhythm GI: COMMON NORMALS: No hepatosplenomegaly present AUSCULTATION: Yes normoactive bowel sounds PALPATION: Yes Tenderness to palpation present (GI) (Epigastric left upper quadrant), No Guarding due to palpation present (GI) and Yes No hepatosplenomegaly present Extremity: COMMON NORMALS: normal to inspection, capillary refill normal, no clubbing, cyanosis or edema, no calf tenderness and no pedal edema Skin: COMMON NORMALS: no rashes or lesions noted GENERAL SKIN EXAM: no rashes or lesions noted Course Vital Signs: Vital signs: Vital Signs Temperature 98.1 F 11/10/22 05:13 Pulse Rate 78 11/10/22 05:13 Respiratory Rate 18 11/10/22 06:42 Blood Pressure 128/83 11/10/22 05:13 Pulse Oximetry 94 11/10/22 05:13 Oxygen Delivery Me thod Room Air 11/09/22 17:57 MDM - Abdominal Pain Medical Decision Making Acute pancreatitis modest elevation of triglycerides. Keep patient n.p.o. IV fluids pain and nausea medications as needed. Ultrasound shows normal common bile duct no sign of Dolores cystitis. Medical Records I reviewed the patient's medical records. Lab Data I reviewed the patient's lab results. 11/10/22 05:09 11/10/22 05:09 Labs/Radiology: Laboratory Results WBC 14.45 10^3/uL (3.29-11.43) H 11/09/22 12:47 RBC 4.62 10^6/uL (3.85-5.65) 11/09/22 12:47 Hgb 13.80 g/dL (11.27-16.99) 11/09/22 12:47 Hct 40.0 % (36-47) 11/09/22 12:47 MCV 86.6 fl (85-98) 11/09/22 12:47 MCH 29.9 pg (27-33) 11/09/22 12:47 MCHC 34.5 g/dL (30-55) 11/09/22 12:47 RDW 12.1 % (12.1-15.1) 11/09/22 12:47 Plt Count 226 10^3/cmm (157-399) 11/09/22 12:47 MPV 11.9 fL (7.4-10.4) H 11/09/22 12:47 Neut % (Auto) 78.9 % 11/09/22 12:47 Lymph % (Auto) 14.8 % 11/09/22 12:47 [place] % (Auto) 5.3 % 11/09/22 12:47 Eos % (Auto) 0.1 % 11/09/22 12:47 Baso % (Auto) 0.4 % 11/09/22 12:47 Neut # (Auto) 11.40 10^3/uL (1.8-7.7) H 11/09/22 12:47 Lymph # (Auto) 2.1 10^3/uL (0.8-4.8) 11/09/22 12:47 [place] # (Auto) 0.8 10^3/uL (0.2-0.9) 11/09/22 12:47 Eos # (Auto) 0.0 10^3/uL (0.0-0.8) 11/09/22 12:47 Baso # (Auto) 0.1 10^3/uL (0.0-0.1) 11/09/22 12:47 Nucleated RBC % (auto) 0 % 11/09/22 12:47 Nucleated RBCs # 0.0 /100WBC 11/09/22 12:47 Sodium 136 mmol/L (136-145) 11/09/22 12:47 Potassium 4.3 mmol/L (3.5-5.1) 11/09/22 12:47 Chloride 96 mmol/L (98-107) L 11/09/22 12:47 Carbon Dioxide 24 mmol/L (22-29) 11/09/22 12:47 Anion Gap 20.3 (5-19) H 11/09/22 12:47 BUN 18 mg/dL (6-20) 11/09/22 12:47 Creatinine 0.8 mg/dL (0.5-0.9) 11/09/22 12:47 GFR Calculation 79.0 mL/min (90-130) L 11/09/22 12:47 Glucose 394 mg/dL (65-115) H 11/09/22 12:47 Estimat Average Glucose 255 11/09/22 12:47 Hemoglobin A1c 10.5 % (4.0-6.0) H 11/09/22 12:47 Calculated Osmolality 300 mOsm/kg (285-295) H 11/09/22 12:47 Lactic Acid 3.0 mmol/L (0.5-2.2) H 11/09/22 12:47 Lactic Acid (Sepsis) 1.7 mmol/L (0.5-2.2) 11/09/22 16:02 Calcium 9.3 mg/dL (8.5-10.5) 11/09/22 12:47 Total Bilirubin 0.6 mg/dL (0.15-1.2) 11/09/22 12:47 AST 27 U/L (0-32) 11/09/22 12:47 ALT 45 U/L (0-33) H 11/09/22 12:47 Alkaline Phosphatase 415 U/L (35-105) H 11/09/22 12:47 Total Protein 7.8 g/dL (6.6-8.7) 11/09/22 12:47 Albumin 4.4 g/dL (3.5-5.2) 11/09/22 12:47 Globulin 3.4 g/dL (1.3-4.6) 11/09/22 12:47 Triglycerides 323 mg/dL (0-150) H 11/09/22 16:02 Lipase 672 U/L (13-60) H 11/09/22 12:47 Urine Color Yellow (Yellow) 11/09/22 15:32 Urine Appearance Clear (CLEAR) 11/09/22 15:32 Urine pH 5 (5-7) 11/09/22 15:32 Ur Specific [place] 1.015 (1.005-1.030) 11/09/22 15:32 Urine Protein Neg (Negative) 11/09/22 15:32 Urine Glucose (UA) 4+ (Normal) H 11/09/22 15:32 Urine Ketones 1+ (Negative) H 11/09/22 15:32 Urine Blood Neg (Negative) 11/09/22 15:32 Urine Nitrate Negative (Negative) 11/09/22 15:32 Urine Bilirubin Neg (Negative) 11/09/22 15:32 Urine Urobilinogen Norm mg/dL (Negative) 11/09/22 15:32 Ur Leukocyte Esterase Negative (Negative) 11/09/22 15:32 Discharge Plan Discharge Patient Disposition: Admitted As Inpatient Admit Provider: Alka Colon Clinical Impression: Acute pancreatitis, Hypertriglyceridemia Condition: Stable Coding Level of Care Code ED Needle Loom Setter for Chg Fwolya
--- NOTE | 2022-11-09 12:29 | PC.PHAR ---
pts mother verified pts medications-pts mother states the pt is no longer taking toprol xl 50mg daily states the dr jin about 6 months ago ext shows last filled 10/02/22 90d/s-pts mother states the pt no longer takes fenofibrate 145mg,metformin 500mg bid,protonix 40mg daily or ultram 50mg q6h prn
[2022-11-09 12:56] LABS: Basophils # 0.1 10^3/uL (0.0-0.1); Basophils % 0.4 %; Eosinophils % 0.1 %; Lymphocytes # 2.1 10^3/uL (0.8-4.8); Lymphocytes % 14.8 %; Mean Corpuscular HGB Conc 34.5 g/dL (30-55); Mean Corpuscular Hemoglobin 29.9 pg (27-33); Mean Corpuscular Volume 86.6 fl (85-98); Mean Platelet Volume 11.9 fL (7.4-10.4); Monocytes # 0.8 10^3/uL (0.2-0.9); Monocytes % 5.3 %; Neutrophils % 78.9 %; Nucleated Red Blood Cells % 0 %; Platelet Count 226 10^3/cmm (157-399); Red Blood Count 4.62 10^6/uL (3.85-5.65); Red Cell Distribution Width 12.1 % (12.1-15.1); White Blood Count 14.45 10^3/uL (3.29-11.43)
--- NOTE | 2022-11-09 12:59 | CT_ITS ---
WS: [id number] CT ABDOMEN PELVIS TECHNIQUE: Noncontrast CT of the abdomen and pelvis with coronal and sagittal reformatted images. CLINICAL INFORMATION: Abdominal pain COMPARISON: 12/20/2021 DLP: 557.[address] scans at [facility] use at least one of these dose optimization techniques: automated e xposure control; mA and/or kV adjustment per patient size (includes targeted exams where dose is matc hed to clinical indication); or iterative reconstruction. FINDINGS: Hepatomegaly diffuse fatty filtration of the liver with fibrofatty changes. Recommend correlation wit h liver function tests. Splenomegaly. Fluid distended gallbladder. This is similar to previous. Sligh t induration about the pancreas compatible with acute pancreatitis. Recommend correlation with pancre atic function studies. No drainable fluid collection or abscess. Adrenal glands are normal. No hydronephrosis in either kidney.Lung bases are well aerated. No free fl uid in the abdomen or pelvis. Normal sigmoid colon. No evidence of small or large bowel obstruction. IMPRESSION: 1. Findings compatible with acute pancreatitis with inflammatory stranding and edema about the pancr eas. No drainable fluid collection or abscess. 2. Hepatomegaly with fibrofatty liver changes. Recommend correlation with liver function tests. Mild splenomegaly. 3. Slightly hydropic gallbladder similar to 12/20/2021. No inflammatory stranding or edema about the gallbladder. 4. No other acute findings. Notified Smith Shanks DO at 11/09/2022 1:47 PM.
[2022-11-09 13:19] LABS: Alanine Aminotransferase 45 U/L (0-33); Albumin Level 4.4 g/dL (3.5-5.2); Alkaline Phosphatase 415 U/L (35-105); Anion Gap 20.3 (5-19); Aspartate Amino Transferase 27 U/L (0-32); Blood Urea Nitrogen 18 mg/dL (6-20); Calcium 9.3 mg/dL (8.5-10.5); Carbon Dioxide 24 mmol/L (22-29); Chloride 96 mmol/L (98-107); Globulin 3.4 g/dL (1.3-4.6); Glucose 394 mg/dL (65-115); Osmolality Calculated 300 mOsm/kg (285-295); Potassium 4.3 mmol/L (3.5-5.1); Sodium 136 mmol/L (136-145); Total Bilirubin 0.6 mg/dL (0.15-1.2); Total Protein 7.8 g/dL (6.6-8.7)
[2022-11-09 13:25] LABS: Lipase 672 U/L (13-60)
[2022-11-09] MEDS: morphine 4 mg/mL SDV 1 mL 2 MG IVP (13:37)
[2022-11-09] MEDS: ondansetron 2 mg/ML SDV 2 mL 4 MG IVP (13:38)
[2022-11-09] MEDS: sodium chloride 0.9% 1,000 ML 999 ML IV ×2 (13:38→16:42)
[2022-11-09 14:40] LABS: Reflex Lactate Order REFLEX LACTIC ORDERD
--- NOTE | 2022-11-09 14:43 | US_ITS ---
WS: [id number] ULTRASOUND ABDOMEN LIMITED CLINICAL INFORMATION: elevated lfts COMPARISON: CT earlier today FINDINGS: Exam somewhat limited due to bowel gas. Liver Size: Mild hepatomegaly Craniocaudal length: 16.4 cm. Echogenicity: Coarse and echogenic . Mass (size and location): None. Normal flow visualized in the portal vein Bile ducts Intrahepatic ducts: Normal. Common bile duct diameter: 0.4 cm. Gallbladder Cholelithiasis Gallstones: Present Gallbladder sludge: None. Gallbladder wall thickening: None. Pericholecystic fluid: None. Sonographic Paris sign: Absent. Pancreas Not well seen Right kidney: Normal. Hydronephrosis: None. Size: 10.2 cm x 4.8 cm x 4.1 cm. Abdominal aorta and IVC Visualized portions are normal. Ascites: None. IMPRESSION: Limited due to bowel gas 1. Mild hepatomegaly with diffuse fatty infiltration. 2. Fluid distended gallbladder with cholelithiasis. No gallbladder wall thickening or pericholecysti c fluid. Negative Paris's sign. 3. Normal common bile duct. 4. No hydronephrosis in the RIGHT kidney. 5. No ascites.
[2022-11-09] MEDS: morphine 4 mg/mL SDV 1 mL IVP ×2 (15:02→17:18)
[2022-11-09 15:11] LABS: Triglycerides 366 mg/dL (0-150)
[2022-11-09 15:39] LABS: Add Urine Microscopic? NO; Charge for UA Resulting for Rev
[2022-11-09 15:42] LABS: Bilirubin Urine Neg (Negative); Blood Urine Neg (Negative); Glucose Urine UA 4+ (Normal); Ketones Urine 1+ (Negative); Leukocyte Esterase Urine Negative (Negative); Nitrate Urine Negative (Negative); Protein Urine Neg (Negative); Specific Gravity, Urine 1.015 (1.005-1.030); Urine Appearance Clear (CLEAR); Urine Color Yellow (Yellow); Urobilinogen Urine Norm (Negative); pH Urine 5 (5-7)
[2022-11-09 16:31] LABS: Lactic Acid level (Lactate) 1.7 mmol/L (0.5-2.2); Triglycerides 323 mg/dL (0-150)
--- NOTE | 2022-11-09 18:00 | PM.HP ---
Providers/Chief Complaint Admitting Physician: Alka Colon MD Primary Care Provider: YAMIL Hoffman Chief Complaint: n/v swollen adb History of Present Illness Precious Mckeon is a 42 year old female with past medical history of hypertriglyceridemia associated acute pancreatitis, cholelithiasis, came in today with chief complaint of upper abdominal pain nausea vomiting over the past 24 hrs. No chest pain dyspnea palpitations or syncope. CT of the abdomen performed today showed evidence of acute pancreatitis. LFTs are similar to prior range, though alkaline phosphatase today appearing to be in the 400 range while previously noted to be between 150-200. She has an elevated white blood cell count at 14.5. Denies any fever. Review of Systems General: Reports: 10 or more systems reviewed and unremarkable except in HPI and below Const: Denies: fever(s), chills or body aches Eyes: Denies: change in vision, blurry vision or photophobia ENMT: Reports: hoarseness; Denies: throat pain, enlarged tonsils, odynophagia or nasal congestion Card: Denies: chest pain, palpitations, irregular heart rhythm, edema, swelling of feet/ankles, lightheadedness, pre-syncope, dyspnea on exertion or orthopnea Resp: Denies: dyspnea, productive cough, non-productive cough, wheezing, stridor, pain on inspiration, change in phlegm color, hemoptysis or chest congestion GI: Denies: abdominal pain, nausea, vomiting, hematemesis, coffee ground emesis, dysphagia, heartburn, diarrhea, constipation, GI cramping, change in stool character, hematochezia or melena : Denies: flank pain, difficulty voiding, dysuria, urinary frequency, urinary urgency, urinary hesitancy or hematuria Musc: Denies: neck pain, back pain, extremity pain, joint swelling, joint warmth or deformity Neuro: Denies: headache(s), numbness in extremities, weakness in extremities, sensory changes, difficulty walking, frequent falls, dizziness, vertigo, behavioral changes, Slurred speech present or seizure-like activity Psych: Denies: anxiety, depression, suicidal ideation or homicidal ideation Endo: Denies: polyuria, polydipsia, tired all the time, cold intolerance or hot flashes Arturo/Lymph: Denies: easy bruising or easy bleeding Medications/Allergies Home Medications Medication Instructions Recorded Confirmed Last Taken Type citalopram 20 mg tablet 20 mg PO QAM 08/24/21 11/09/22 11/09/22 07:30 History acetaminophen 500 mg tablet 1,000 mg PO Q6H PRN Pain 11/09/22 11/09/22 Unknown History apixaban 2.5 mg tablet (Eliquis) 2.5 mg PO BID 11/09/22 11/09/22 11/09/22 07:30 History hydroxyzine HCl 25 mg tablet 25 mg PO QID PRN Itching 11/09/22 11/09/22 Unknown History potassium chloride 20 mEq 20 meq PO QAM 11/09/22 11/09/22 11/09/22 07:30 History tablet,extended release Allergies Allergy/AdvReac Type Severity Reaction Status Date / Time No Known Allergies Allergy Verified 11/09/22 12:25 PFSH Acute PFSH: Medical History (Updated 11/09/22 @ 18:05 by Alka Colon MD) Abnormal transaminases Acute encephalopathy Acute kidney injury Acute pancreatitis Acute respiratory distress syndrome (ARDS) due to 2019 novel coronavirus Acute respiratory failure requiring reintubation 05/06 Anemia Aspiration pneumonia ATN (acute tubular necrosis) B12 deficiency anemia Coco parapsilosis infection COVID Diarrhea Essential hypertension GODFREY (generalized anxiety disorder) Hypertriglyceridemia Hypertriglyceridemia Hypotension Hypovolemic shock Increased anion gap metabolic acidosis Lactic acidosis Leukocytosis Mild mental handicap No pertinent family history PCOS (polycystic ovarian syndrome) Persistent fever Pneumonia Pulmonary embolism Shock Trichosporonosis Yeast detected Coco parapsilosis 04/29, endotracheal aspirate Trichosporosis ashai Surgical History No pertinent past surgical history S/P dialysis catheter insertion Permacath3/1 Family History Father Cancer Social History Smoking and tobacco status: never smoked Alcohol intake: never Vitals/I&O/Wt Last Vital Signs Temp 98.4 F 11/09/22 12:18 Pulse 92 11/09/22 16:25 Resp 18 11/09/22 17:18 BP 126/94 11/09/22 16:25 Pulse Ox 91 11/09/22 17:18 O2 Del Method Room Air 11/09/22 16:56 11/09/22 11/09/22 11/09/22 06:59 14:59 22:59 Intake Total 1000 / 1000 Balance 1000 / 1000 Weight last 48 hrs Weight 63.503 kg Physical Exam Narrative: General: No acute distress, AO x3 HEENT: PERRLA, pupils bilaterally equal and reactive, pallors not present Chest: Normal vesicular breath sounds, no added sounds, equal good air entry bilaterally CVS: S1-S2 regular, no murmurs, no tachycardia, no gallops, no rubs Abdomen: Soft, nontender, no organomegaly, bowel sounds present Neuro: No focal deficits, no facial deformity, AO x3, power 5/5 in all limbs Data 11/09/22 12:47 11/09/22 12:47 Other data: Launch?Image [facility] [address] [place] [address] CT Scan Report Signed Patient: Precious Mckeon Unit #: [id number] : 1980 Age/Sex: 42 / F ADM Date: 11/09/22 Loc: ER Room/Bed: Attending Dr: Ordering Provider/Ordering MD: Smith Shanks DO Date of Service: 11/09/22 Procedure(s): CT abdomen pelvis con [id number] Accession Number(s): [id number] Report Number: [id number] WS: [id number] CT ABDOMEN PELVIS TECHNIQUE: Noncontrast CT of the abdomen and pelvis with coronal and sagittal reformatted images. CLINICAL INFORMATION: Abdominal pain COMPARISON: 12/20/2021 DLP: 557.[address] [facility] use at least one of these dose optimization techniques: automated exposure control; mA and/or kV adjustment per patient size (includes targeted exams where dose is matched to clinical indication); or iterative reconstruction. FINDINGS: Hepatomegaly diffuse fatty filtration of the liver with fibrofatty changes. Recommend correlation with liver function tests. Splenomegaly. Fluid distended gallbladder. This is similar to previous. Slight induration about the pancreas compatible with acute pancreatitis. Recommend correlation with pancreatic function studies. No drainable fluid collection or abscess. Adrenal glands are normal. No hydronephrosis in either kidney.Lung bases are well aerated. No free fluid in the abdomen or pelvis. Normal sigmoid colon. No evidence of small or large bowel obstruction. IMPRESSION: 1.? Findings compatible with acute pancreatitis with inflammatory stranding and edema about the pancreas. No drainable fluid collection or abscess. 2.? Hepatomegaly with fibrofatty liver changes. Recommend correlation with liver function tests. Mild splenomegaly. 3.? Slightly hydropic gallbladder similar to 12/20/2021. No inflammatory stranding or edema about the gallbladder. 4.? No other acute findings. Notified Smith Shanks DO at 11/09/2022 1:47 PM. IMPRESSION: Limited due to bowel gas 1.? Mild hepatomegaly with diffuse fatty infiltration. 2.? Fluid distended gallbladder with cholelithiasis. No gallbladder wall thickening or pericholecystic fluid. Negative Paris's sign. 3.? Normal common bile duct. 4.? No hydronephrosis in the RIGHT kidney. 5.? No ascites. Laboratory Results WBC 14.45 10^3/uL (3.29-11.43) H 11/09/22 12:47 RBC 4.62 10^6/uL (3.85-5.65) 11/09/22 12:47 Hgb 13.80 g/dL (11.27-16.99) 11/09/22 12:47 Hct 40.0 % (36-47) 11/09/22 12:47 MCV 86.6 fl (85-98) 11/09/22 12:47 MCH 29.9 pg (27-33) 11/09/22 12:47 MCHC 34.5 g/dL (30-55) 11/09/22 12:47 RDW 12.1 % (12.1-15.1) 11/09/22 12:47 Plt Count 226 10^3/cmm (157-399) 11/09/22 12:47 MPV 11.9 fL (7.4-10.4) H 11/09/22 12:47 Neut % (Auto) 78.9 % 11/09/22 12:47 Lymph % (Auto) 14.8 % 11/09/22 12:47 [place] % (Auto) 5.3 % 11/09/22 12:47 Eos % (Auto) 0.1 % 11/09/22 12:47 Baso % (Auto) 0.4 % 11/09/22 12:47 Neut # (Auto) 11.40 10^3/uL (1.8-7.7) H 11/09/22 12:47 Lymph # (Auto) 2.1 10^3/uL (0.8-4.8) 11/09/22 12:47 [place] # (Auto) 0.8 10^3/uL (0.2-0.9) 11/09/22 12:47 Eos # (Auto) 0.0 10^3/uL (0.0-0.8) 11/09/22 12:47 Baso # (Auto) 0.1 10^3/uL (0.0-0.1) 11/09/22 12:47 Nucleated RBC % (auto) 0 % 11/09/22 12:47 Nucleated RBCs # 0.0 /100WBC 11/09/22 12:47 Sodium 136 mmol/L (136-145) 11/09/22 12:47 Potassium 4.3 mmol/L (3.5-5.1) 11/09/22 12:47 Chloride 96 mmol/L (98-107) L 11/09/22 12:47 Carbon Dioxide 24 mmol/L (22-29) 11/09/22 12:47 Anion Gap 20.3 (5-19) H 11/09/22 12:47 BUN 18 mg/dL (6-20) 11/09/22 12:47 Creatinine 0.8 mg/dL (0.5-0.9) 11/09/22 12:47 GFR Calculation 79.0 mL/min (90-130) L 11/09/22 12:47 Glucose 394 mg/dL (65-115) H 11/09/22 12:47 Calculated Osmolality 300 mOsm/kg (285-295) H 11/09/22 12:47 Lactic Acid 3.0 mmol/L (0.5-2.2) H 11/09/22 12:47 Lactic Acid (Sepsis) 1.7 mmol/L (0.5-2.2) 11/09/22 16:02 Calcium 9.3 mg/dL (8.5-10.5) 11/09/22 12:47 Total Bilirubin 0.6 mg/dL (0.15-1.2) 11/09/22 12:47 AST 27 U/L (0-32) 11/09/22 12:47 ALT 45 U/L (0-33) H 11/09/22 12:47 Alkaline Phosphatase 415 U/L (35-105) H 11/09/22 12:47 Total Protein 7.8 g/dL (6.6-8.7) 11/09/22 12:47 Albumin 4.4 g/dL (3.5-5.2) 11/09/22 12:47 Globulin 3.4 g/dL (1.3-4.6) 11/09/22 12:47 Triglycerides 323 mg/dL (0-150) H 11/09/22 16:02 Lipase 672 U/L (13-60) H 11/09/22 12:47 Urine Color Yellow (Yellow) 11/09/22 15:32 Urine Appearance Clear (CLEAR) 11/09/22 15:32 Urine pH 5 (5-7) 11/09/22 15:32 Ur Specific [place] 1.015 (1.005-1.030) 11/09/22 15:32 Urine Protein Neg (Negative) 11/09/22 15:32 Urine Glucose (UA) 4+ (Normal) H 11/09/22 15:32 Urine Ketones 1+ (Negative) H 11/09/22 15:32 Urine Blood Neg (Negative) 11/09/22 15:32 Urine Nitrate Negative (Negative) 11/09/22 15:32 Urine Bilirubin Neg (Negative) 11/09/22 15:32 Urine Urobilinogen Norm mg/dL (Negative) 11/09/22 15:32 Ur Leukocyte Esterase Negative (Negative) 11/09/22 15:32 A&P Assessment and plan (1) Acute pancreatitis: Acute on chronic pancreatitis. Previously thought to be related with hypertriglyceridemia, triglyceride today at 323, unlikely to be the cause of pancreatitis today. Admit to MedSurg IV fluid with normal saline at 100 cc an hour N.p.o. for bowel rest Pain control with as needed morphine alternating with IV Toradol. As needed Tylenol for pain and fever. As needed Zofran for nausea management. CT of the abdomen and pelvis shows signs of acute pancreatitis. No obvious signs of choledocholithiasis or pancreatic duct stones, however alkaline phosphatase noted to be elevated in the 400 range, more than previously. We will obtain MRCP to further evaluate for any potential biliary obstruction. Elevated white blood cell count likely as a result of dehydration/SIRS. Will monitor. Holding off on antibiotics for now. Attestations Medical Necessity Statement*: Anticipate greater than 2 midnight admission for acute on chronic pancreatitis management Coding Level of Care Code Acute Code for Chg Fwd Moderate MDM includes number and complexity of problems actively addressed during encounter, amount and/or complexity of data reviewed/ordered and described risk of complication, morbidity or mortality of management as documented Diagnoses Acute pancreatitis K85.90
[2022-11-09] MEDS: sodium chloride 0.9% 1,000 ML 100 ML IV (18:03)
[2022-11-09] MEDS: ketorolac 30 mg/mL INJ 15 MG IVP (19:05)
[2022-11-09] MEDS: enoxaparin 40 mg/0.4 mL Syringe SUBCUT (20:31)
[2022-11-09 20:56] LABS: Estmated Average Glucose 255; Hemoglobin A1C 10.5 % (4.0-6.0)
[2022-11-10] VITALS (10 sets, daily range): BP systolic 115–146; BP diastolic 78–84; PULSE 78–102; RESP 15–18; TEMP 36.4–37.1; O2SAT 93–96
[2022-11-10] MEDS: ondansetron 2 mg/ML SDV 2 mL 4 MG IVP ×2 (02:43→14:20)
[2022-11-10] MEDS: morphine 4 mg/mL SDV 1 mL IVP ×5 (02:46→20:44)
[2022-11-10] MEDS: sodium chloride 0.9% 1,000 ML 100 ML IV ×3 (04:37→23:53)
[2022-11-10 05:34] LABS: Basophils # 0.1 10^3/uL (0.0-0.1); Basophils % 0.7 %; Eosinophils % 0.3 %; Hematocrit 37.3 % (36-47); Lymphocytes # 2.2 10^3/uL (0.8-4.8); Lymphocytes % 24.4 %; Mean Corpuscular HGB Conc 30.6 g/dL (30-55); Mean Corpuscular Hemoglobin 29.7 pg (27-33); Mean Corpuscular Volume 97.1 fl (85-98); Mean Platelet Volume 11.9 fL (7.4-10.4); Monocytes # 0.6 10^3/uL (0.2-0.9); Monocytes % 6.8 %; Neutrophils # 6.02 10^3/uL (1.8-7.7); Neutrophils % 67.4 %; Nucleated Red Blood Cells % 0 %; Platelet Count 145 10^3/cmm (157-399); Red Blood Count 3.84 10^6/uL (3.85-5.65); Red Cell Distribution Width 12.3 % (12.1-15.1); White Blood Count 8.94 10^3/uL (3.29-11.43)
[2022-11-10 06:09] LABS: Alanine Aminotransferase 33 U/L (0-33); Albumin Level 3.3 g/dL (3.5-5.2); Alkaline Phosphatase 328 U/L (35-105); Blood Urea Nitrogen 19 mg/dL (6-20); Calcium 7.7 mg/dL (8.5-10.5); Carbon Dioxide 21 mmol/L (22-29); Chloride 107 mmol/L (98-107); Globulin 3.2 g/dL (1.3-4.6); Glomerular Filtration Rate 110.2 mL/min (90-130); Glucose 272 mg/dL (65-115); Osmolality Calculated 302 mOsm/kg (285-295); Sodium 140 mmol/L (136-145); Total Bilirubin 0.4 mg/dL (0.15-1.2); Total Protein 6.5 g/dL (6.6-8.7)
[2022-11-10 06:19] LABS: Anion Gap 16.2 (5-19); Aspartate Amino Transferase 33 U/L (0-32); Potassium 4.2 mmol/L (3.5-5.1)
[2022-11-10] MEDS: metoclopramide 5 mg/mL SDV 2 mL IVP (06:36)
[2022-11-10] MEDS: ketorolac 30 mg/mL INJ 15 MG IVP ×2 (17:03→23:52)
--- NOTE | 2022-11-10 17:30 | PM.PN ---
Subjective Subjective: MRCP completed today. Alkaline phosphatase trending down. MRCP does not show any obvious obstruction within the biliary tree, however noted to have impacted stones in the neck of the gallbladder. Surgical recommendation has been recommended. Nausea vomiting improving today. She is hungry, wants to eat. Her HbA1c returned at 10.1. Medications: Reviewed: Yes Vitals/I&O/Wt Last Vital Signs Temp 97.5 F L 11/10/22 12:00 Pulse 79 11/10/22 12:00 Resp 17 11/10/22 14:20 BP 146/84 11/10/22 12:00 Pulse Ox 94 11/10/22 14:20 O2 Del Method Room Air 11/10/22 12:00 11/10/22 11/10/22 11/10/22 06:59 14:59 22:59 Intake Total 801.667 / 3017.667 821.667 / 821.667 118.333 / 940.000 Balance 801.667 / 3017.667 821.667 / 821.667 118.333 / 940.000 Weight last 48 hrs Weight 63.503 kg Physical Exam Narrative: General: No acute distress, AO x3 HEENT: PERRLA, pupils bilaterally equal and reactive, pallors not present Chest: Normal vesicular breath sounds, no added sounds, equal good air entry bilaterally CVS: S1-S2 regular, no murmurs, no tachycardia, no gallops, no rubs Abdomen: Soft, nontender, no organomegaly, bowel sounds present Neuro: No focal deficits, no facial deformity, AO x3, power 5/5 in all limbs Data 11/11/22 07:25 11/11/22 07:25 Other Labs: [facility] [address] [place] [address] Magnetic Resonance Report Signed Patient: Precious Mckeon Unit #: [id number] : 1980 Age/Sex: 42 / F ADM Date: 11/09/22 Loc: [facility] Room/Bed: 276-[address]: Alka Colon MD Ordering Provider/Ordering MD: J Carlos Colon MD Date of Service: 11/10/22 Procedure(s): MRCP [id number] Accession Number(s): [id number] Report Number: [id number] WS: [id number] MRCP (MAGNETIC RESONANCE CHOLANGIOPANCREATOGRAPHY) HISTORY: evalaute for choledocholithasis vs pancreatic duct stones COMPARISON: Gallbladder ultrasound 11/09/2022. TECHNIQUE: Multiple sequences are performed to evaluate the intra and extrahepatic ducts. Quality this examination is compromised by motion and breathing artifact on all sequences. Liver is enlarged and very heterogeneous. There is hepatic steatosis with variable signal intensity. No bile duct dilatation. Mildly hydropic gallbladder with stones. No pericholecystic fluid. Stones within the gallbladder are at the gallbladder neck. Common bile duct is normal size, estimated at approximately 4 mm. Normal size spleen at 11 mm. The pancreas is obscured by the motion artifact. Pancreatitis was described on a recent CT. Cannot confirm pancreatitis by MRI due to the motion. The pancreatic duct does not appear significantly dilated. No ascites identified. IMPRESSION: 1. Normal size common bile duct. 2. Hydropic gallbladder with stones. No evidence for wall thickening or pericholecystic fluid. Recommend surgical evaluation. Stones are in the neck of the gallbladder and may be entrapped. 3. Mild hepatomegaly with diffuse hepatic steatosis. A&P Assessment and plan (1) Acute pancreatitis: Acute on chronic pancreatitis. Previously thought to be related with hypertriglyceridemia, triglyceride currently at 323, unlikely to be the cause of pancreatitis currently. IV fluid with normal saline at 100 cc an hour to continue He is hungry, will start clear liquid diet today and assess for tolerability. Pain control with as needed morphine alternating with IV Toradol. As needed Tylenol for pain and fever. As needed Zofran for nausea management. CT of the abdomen and pelvis shows signs of acute pancreatitis. MRCP obatined-no current biliary obstruction noted, however there is some impacted stones in the neck of gallbladder. Consult general surgery. DVT ppx: on Lovenox 40 currently Full code (2) Diabetes mellitus: Per patient's family was currently at bedside, patient had a prior diagnosis of diabetes mellitus, however trending her HbA1c it appears it has been between 5.5-6.3 in the past. Patient had been on metformin for several years due to PCOS from her PCP in the past. She was taken off of metformin after an admission at [facility] last year. Currently HbA1c of 10.5 is new for the patient. Her fingersticks have been ranging in the hospital between 300-3 50 range. Overall this A1c is consistent with a diagnosis of diabetes mellitus Discussed extensively with patient's family that would recommend starting her on insulin since HbA1c greater than 9, need to get blood sugar under control to undergo serial cholecystectomy in the next few months. 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 Attestations Medical Necessity Statement*: Trial of clear liquid diet today, general surgery consult, continued need for IV fluid and pain management. Coding Level of Care Code Acute Code for [facility] Diagnoses Acute pancreatitis K85.90 Diabetes mellitus E11.9
--- NOTE | 2022-11-10 18:05 | MR_ITS ---
WS: [id number] MRCP (MAGNETIC RESONANCE CHOLANGIOPANCREATOGRAPHY) HISTORY: evalaute for choledocholithasis vs pancreatic duct stones COMPARISON: Gallbladder ultrasound 11/09/2022. TECHNIQUE: Multiple sequences are performed to evaluate the intra and extrahepatic ducts. Quality this examination is compromised by motion and breathing artifact on all sequences. Liver is enlarged and very heterogeneous. There is hepatic steatosis with variable signal intensity. No bile duct dilatation. Mildly hydropic gallbladder with stones. No pericholecystic fluid. Stones wi thin the gallbladder are at the gallbladder neck. Common bile duct is normal size, estimated at appro ximately 4 mm. Normal size spleen at 11 mm. The pancreas is obscured by the motion artifact. Pancreatitis was descri bed on a recent CT. Cannot confirm pancreatitis by MRI due to the motion. The pancreatic duct does no t appear significantly dilated. No ascites identified. IMPRESSION: 1. Normal size common bile duct. 2. Hydropic gallbladder with stones. No evidence for wall thickening or pericholecystic fluid. Recomm end surgical evaluation. Stones are in the neck of the gallbladder and may be entrapped. 3. Mild hepatomegaly with diffuse hepatic steatosis.
[2022-11-10] MEDS: enoxaparin 40 mg/0.4 mL Syringe SUBCUT (19:52)
[2022-11-10 20:59] LABS: Glucose Point of Care 216 mg/dL (70-110)
[2022-11-10] MEDS: insulin lispro 100 unit/1 mL SUBCUT (21:09)
[2022-11-11] VITALS (11 sets, daily range): BP systolic 111–147; BP diastolic 64–91; PULSE 64–93; RESP 13–18; TEMP 36.4–37.4; O2SAT 89–99
[2022-11-11] MEDS: morphine 4 mg/mL SDV 1 mL IVP ×2 (06:08→10:49)
[2022-11-11 06:38] LABS: Glucose Point of Care 188 mg/dL (70-110)
[2022-11-11 08:09] LABS: Basophils # 0.1 10^3/uL (0.0-0.1); Basophils % 0.9 %; Eosinophils # 0.1 10^3/uL (0.0-0.8); Eosinophils % 1.4 %; Hematocrit 35.1 % (36-47); Lymphocytes % 29.3 %; Mean Corpuscular HGB Conc 31.3 g/dL (30-55); Mean Corpuscular Hemoglobin 30.4 pg (27-33); Mean Platelet Volume 12.5 fL (7.4-10.4); Monocytes # 0.5 10^3/uL (0.2-0.9); Neutrophils # 4.24 10^3/uL (1.8-7.7); Nucleated Red Blood Cells % 0 %; Platelet Count 134 10^3/cmm (157-399); Red Blood Count 3.62 10^6/uL (3.85-5.65); Red Cell Distribution Width 12.4 % (12.1-15.1); White Blood Count 6.96 10^3/uL (3.29-11.43)
[2022-11-11 08:34] LABS: Alanine Aminotransferase 35 U/L (0-33); Albumin Level 3.3 g/dL (3.5-5.2); Alkaline Phosphatase 298 U/L (35-105); Aspartate Amino Transferase 42 U/L (0-32); Blood Urea Nitrogen 15 mg/dL (6-20); Calcium 7.9 mg/dL (8.5-10.5); Carbon Dioxide 17 mmol/L (22-29); Chloride 107 mmol/L (98-107); Creatinine Clr Calc Pharmacy 148.4383; Globulin 3.3 g/dL (1.3-4.6); Glucose 183 mg/dL (65-115); Osmolality Calculated 296 mOsm/kg (285-295); Sodium 140 mmol/L (136-145); Total Bilirubin 0.4 mg/dL (0.15-1.2); Total Protein 6.6 g/dL (6.6-8.7)
[2022-11-11 08:36] LABS: Anion Gap 19.8 (5-19); Potassium 3.8 mmol/L (3.5-5.1)
[2022-11-11] MEDS: pantoprazole DR 40 mg Tablet PO (08:47)
[2022-11-11] MEDS: insulin lispro 100 unit/1 mL SUBCUT ×2 (08:47→17:49)
[2022-11-11] MEDS: sodium chloride 0.9% 1,000 ML 100 ML IV ×2 (08:52→19:31)
--- NOTE | 2022-11-11 10:57 | PC.CHAP ---
Pastoral Care Encounter/Spiritual Assessment Type of Contact [] Declined bulb weeder visit [] Patient/Family/Request visit [] Outpatient visit [] Follow-up visit [] Physician referral [] Code/Alert [x] Routine visit [] Staff referral [] Actively dying [] Patient sleeping [] Family support [] [] Out of room [] Palliative care [] [x] Receiving care in room [] Pre-surgical visit [] Trauma [] Long length of stay [] ICU visit [] Other: Relational/Emotional Strength [x] Patient feels connected with others/family/visitors/staff [] Distress [] Loneliness/isolation [] Abandonment Spirituality of Patient [x] Person of Emelina [] Attends [employer]ian of their Emelina [x] Believes in Prayer [] Reads Bible or Rastafari materials [] There are Spiritual issues to be addressed Setup Operator Interventions [x] Prayer [x] Active listening [x] Non-anxious presence [x] Spiritual/emotional support [] Crisis/trauma care [x] Spiritual counseling [] Bereavement support [] Provided bereavement packet [] Provided Bible/devotional materials [] Provided toy/stuffed animal, coloring book to patient or family member [] Provided Communion [] Anointing/[place] [] Salvation [x] Completed spiritual assessment [] Other: Impact on Illness or Injury [] Angry [] Fearful [] Anxious [] Often cries [] Exhaustion [] Unable to work [] Unable to attend catholic [] Unable to walk/stand [] Unable to read [] Unable to drive [] Unable to eat/drink [] Unable to sleep [] Unable to be with family [] Patient intubated [] Other: Summary infection feeling better well go home for recovery Time spent with patient 10 mins
[2022-11-11 12:07] LABS: Glucose Point of Care 123 mg/dL (70-110)
[2022-11-11] MEDS: ketorolac 30 mg/mL INJ 15 MG IVP (14:13)
--- NOTE | 2022-11-11 17:01 | XRR_ITS ---
PROCEDURE INFORMATION: Exam: XR Abdomen Exam date and time: 11/11/2022 5:17 PM Age: 42 years old Clinical indication: Abdominal pain; Generalized; Additional info: Evaluate for ileus TECHNIQUE: Imaging protocol: Radiologic exam of the abdomen. Views: Frontal supine view of the abdomen. 1 View. COMPARISON: MR MRCP [id number] 11/10/2022 3:41 PM FINDINGS: Gastrointestinal tract: Normal. No bowel dilation. Bones/joints: Unremarkable. XR/XR abdomen 1V* [id number] IMPRESSION: No acute findings.
--- NOTE | 2022-11-11 17:02 | PM.PN ---
Subjective Subjective: Patient was started on clear liquid diet yesterday, since starting her diet though her nausea and vomiting remain resolved, she has developed worsened abdominal pain. Going back to n.p.o. with sips and chips today. Pain control will be optimized. Has not had a bowel movement yet, passing little bit of flatus,, feels like she needs to pass more but unable to do so. Blood sugars are better controlled after initiation of insulin. 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 Medications: Reviewed: Yes Vitals/I&O/Wt Last Vital Signs Temp 98.0 F 11/11/22 12:00 Pulse 64 11/11/22 12:00 Resp 16 11/11/22 12:00 BP 145/64 11/11/22 12:00 Pulse Ox 99 11/11/22 12:00 O2 Del Method Room Air 11/11/22 04:00 11/11/22 11/11/22 11/11/22 06:59 14:59 22:59 Intake Total 680 / 7466.633 1968.333 / 1238.333 Balance 680 / 5529.431 8246.333 / 1238.333 Physical Exam Narrative: General: No acute distress, AO x3 HEENT: PERRLA, pupils bilaterally equal and reactive, pallors not present Chest: Normal vesicular breath sounds, no added sounds, equal good air entry bilaterally CVS: S1-S2 regular, no murmurs, no tachycardia, no gallops, no rubs Abdomen: Soft, nontender, sluggish bowel sounds present Neuro: No focal deficits, no facial deformity, AO x3, power 5/5 in all limbs Data 11/11/22 07:25 11/11/22 07:25 A&P Assessment and plan (1) Acute pancreatitis: Acute on chronic pancreatitis. Previously thought to be related with hypertriglyceridemia, triglyceride currently at 323, unlikely to be the cause of pancreatitis currently. IV fluid with normal saline at 100 cc an hour to continue back to N.p.o. for bowel rest Pain control with as needed morphine alternating with IV Toradol. Add po percocet As needed Tylenol for pain and fever. As needed Zofran for nausea management. CT of the abdomen and pelvis shows signs of acute pancreatitis. No obvious signs of choledocholithiasis or pancreatic duct stones, however alkaline phosphatase noted to be elevated in the 400 range, more than previously. MRCP obatined-no current biliary obstruction noted, however there is some impacted stones in the neck of gallbladder. Patient will eventually need interval cholecystectomy once acute pancreatitis is resolved. No current indication for urgent surgery. Discussed with general surgery. X-ray of the abdomen today to evaluate for any interim development of ileus. DVT ppx: on Lovenox 40 currently, DC today, resume home dose of Eliquis 2.5 mg p.o. twice daily Full code Attestations Medical Necessity Statement*: Continued admission for pain management, IV fluid resuscitation, back to n.p.o. as cannot tolerate p.o. intake currently, abdominal x-ray today to evaluate for ileus. Coding Level of Care Code Acute Code for [facility] Diagnoses Acute pancreatitis K85.90
[2022-11-11 17:41] LABS: Glucose Point of Care 152 mg/dL (70-110)
[2022-11-11] MEDS: apixaban 5 mg Tablet 2.5 MG PO (17:49)
[2022-11-11] MEDS: oxyCODONE-APAP 5-325 mg Tablet 1 TAB PO ×2 (17:49→22:08)
--- NOTE | 2022-11-11 18:28 | PC.NURSE ---
Patient OOBTC and ambulating halls several times throughout shift and currently taking shower. Family at bedside throughout day. VSS, AAOx3, c/o pain to abdomen. Room clean and clutter free with call light within reach. No new events during shift.
[2022-11-11 20:53] LABS: Glucose Point of Care 113 mg/dL (70-110)
[2022-11-12] VITALS (10 sets, daily range): BP systolic 135–174; BP diastolic 63–101; PULSE 59–93; RESP 15–20; TEMP 36.4–37.1; O2SAT 95–99
[2022-11-12] MEDS: ketorolac 30 mg/mL INJ 15 MG IVP ×2 (00:42→21:01)
[2022-11-12] MEDS: oxyCODONE-APAP 5-325 mg Tablet 1 TAB PO ×3 (05:37→18:15)
[2022-11-12] MEDS: citalopram 20 mg Tablet PO (05:37)
[2022-11-12] MEDS: sodium chloride 0.9% 1,000 ML 100 ML IV ×2 (05:37→18:15)
[2022-11-12 06:29] LABS: Glucose Point of Care 133 mg/dL (70-110)
[2022-11-12] MEDS: apixaban 5 mg Tablet 2.5 MG PO ×2 (08:49→18:15)
[2022-11-12] MEDS: pantoprazole DR 40 mg Tablet PO (08:49)
--- NOTE | 2022-11-12 09:20 | PC.SOCIAL ---
IMM Update Pg. 2 of IMM updated and reviewed with patient who verbalized understanding. Copy provided to patient and copy placed in chart.
[2022-11-12 11:45] LABS: Glucose Point of Care 110 mg/dL (70-110)
--- NOTE | 2022-11-12 16:36 | P.PN_ITS ---
Subjective Subjective: Pain is better today. She has an appetite, wishes to eat. Tolerating clears today. Less nauseous. Medications: Reviewed: Yes Vitals/I&O/Wt Last Vital Signs Temp 98.1 F 11/12/22 11:43 Pulse 77 11/12/22 11:43 Resp 15 11/12/22 11:43 BP 155/100 11/12/22 11:43 Pulse Ox 98 11/12/22 11:43 O2 Del Method Room Air 11/12/22 04:09 11/12/22 11/12/22 11/12/22 06:59 14:59 22:59 Intake Total 1000 / 3238.333 0 / 0 1000 / 1000 Balance 1000 / 3238.333 0 / 0 1000 / 1000 Physical Exam Narrative: General: No acute distress, AO x3 HEENT: PERRLA, pupils bilaterally equal and reactive, pallors not present Chest: Normal vesicular breath sounds, no added sounds, equal good air entry bilaterally CVS: S1-S2 regular, no murmurs, no tachycardia, no gallops, no rubs Abdomen: Soft, nontender, no organomegaly, bowel sounds present Neuro: No focal deficits, no facial deformity, AO x3, power 5/5 in all limbs Data 11/11/22 07:25 11/11/22 07:25 A&P Assessment and plan (1) Acute pancreatitis: Acute on chronic pancreatitis. Previously thought to be related with hypertriglyceridemia, triglyceride currently at 323, unlikely to be the cause of pancreatitis currently. IV fluid with normal saline at 100 cc an hour to continue She is hungry, will advance diet as tolerated Pain control with as needed morphine alternating with IV Toradol. As needed Tylenol for pain and fever. As needed Zofran for nausea management. CT of the abdomen and pelvis shows signs of acute pancreatitis. MRCP obatined-no current biliary obstruction noted, however there is some impac farhad stones in the neck of gallbladder. Outpatient follow up for interval cholecytectomy DVT ppx: on Lovenox 40 currently Full code (2) Diabetes mellitus: Currently HbA1c of 10.5 is new for the patient. Started on Insulin which we will continue as outpatient Attestations Medical Necessity Statement*: Pain from pancreatitis is improving today, advance diet as tolerated, continue pain management, if labs stable over the next 24 hours and patient continues to do well, anticipate discharge. Coding Level of Care Code Acute Code for [facility] Diagnoses Acute pancreatitis K85.90 Diabetes mellitus E11.9
[2022-11-12 16:55] LABS: Glucose Point of Care 111 mg/dL (70-110)
[2022-11-12 20:55] LABS: Glucose Point of Care 124 mg/dL (70-110)
[2022-11-13] VITALS (12 sets, daily range): BP systolic 124–155; BP diastolic 76–101; PULSE 103–126; RESP 16–19; TEMP 37–37.8; O2SAT 92–98
[2022-11-13] MEDS: oxyCODONE-APAP 5-325 mg Tablet 1 TAB PO ×3 (00:12→21:06)
[2022-11-13] MEDS: acetaminophen 325 mg Tablet 650 MG PO ×2 (03:42→13:49)
[2022-11-13] MEDS: sodium chloride 0.9% 1,000 ML 100 ML IV ×2 (03:44→13:50)
[2022-11-13 05:51] LABS: Basophils # 0.1 10^3/uL (0.0-0.1); Basophils % 0.6 %; Eosinophils # 0.1 10^3/uL (0.0-0.8); Eosinophils % 0.6 %; Lymphocytes # 0.7 10^3/uL (0.8-4.8); Lymphocytes % 7.6 %; Mean Corpuscular HGB Conc 31.2 g/dL (30-55); Mean Corpuscular Hemoglobin 29.5 pg (27-33); Mean Corpuscular Volume 94.7 fl (85-98); Mean Platelet Volume 11.5 fL (7.4-10.4); Monocytes # 0.6 10^3/uL (0.2-0.9); Monocytes % 6.7 %; Neutrophils # 7.32 10^3/uL (1.8-7.7); Nucleated Red Blood Cells % 0 %; Platelet Count 145 10^3/cmm (157-399); Red Blood Count 3.59 10^6/uL (3.85-5.65)
[2022-11-13] MEDS: citalopram 20 mg Tablet PO (06:06)
[2022-11-13 06:18] LABS: Alanine Aminotransferase 53 U/L (0-33); Alkaline Phosphatase 290 U/L (35-105); Anion Gap 22.7 (5-19); Aspartate Amino Transferase 48 U/L (0-32); Blood Urea Nitrogen 8 mg/dL (6-20); Carbon Dioxide 14 mmol/L (22-29); Chloride 106 mmol/L (98-107); Globulin 3.2 g/dL (1.3-4.6); Glomerular Filtration Rate 110.2 mL/min (90-130); Glucose 140 mg/dL (65-115); Osmolality Calculated 289 mOsm/kg (285-295); Potassium 3.7 mmol/L (3.5-5.1); Sodium 139 mmol/L (136-145); Total Bilirubin 0.6 mg/dL (0.15-1.2); Total Protein 6.2 g/dL (6.6-8.7)
[2022-11-13 06:23] LABS: Glucose Point of Care 127 mg/dL (70-110)
[2022-11-13] MEDS: apixaban 5 mg Tablet 2.5 MG PO ×2 (08:11→17:57)
[2022-11-13] MEDS: pantoprazole DR 40 mg Tablet PO (08:11)
[2022-11-13 11:05] LABS: Glucose Point of Care 174 mg/dL (70-110)
[2022-11-13] MEDS: insulin lispro 100 unit/1 mL SUBCUT ×2 (11:32→20:23)
--- NOTE | 2022-11-13 12:20 | XRR_ITS ---
PROCEDURE INFORMATION: Exam: XR Chest Exam date and time: 11/13/2022 1:19 PM Age: 42 years old Clinical indication: Other: N/a; Additional info: Ecaluet for pneumonia/effusion TECHNIQUE: Imaging protocol: Radiologic exam of the chest. Views: 1 view. COMPARISON: 1. CR (CHEST, ) 12/19/2021 11:06 AM 2. CR XR chest 1V portable [id number] 08/24/2021 1:34 PM 3. CR (CHEST, ) 05/24/2021 5:58 AM FINDINGS: Lungs: Pulmonary hypoinflation. Mild increased ground-glass attenuation of the lower lungs and increased perihilar lung markings. No dense consolidation. Pleural spaces: No pneumothorax. Heart/Mediastinum: Unremarkable. No cardiomegaly. Bones/joints: Unremarkable. XR/XR chest 1V portable [id number] IMPRESSION: Nonspecific lung findings may represent bronchovascular crowding in the setting of pulmonary hypoinflation. Differential also includes viral or atypical infectious process. Given technique and positioning, small pleural effusions not excluded. If able, upright PA and lateral chest radiographs with improved inspiration would be beneficial to further evaluate.
[2022-11-13 13:27] LABS: Estmated Average Glucose 260; Hemoglobin A1C 10.7 % (4.0-6.0)
[2022-11-13 14:47] LABS: Adenovirus Not Detected (NOT DETECT); Chlamydia Pneumoniae Not Detected (NOT DETECT); Coronavirus 229E,HKU1,NL63,OC4 Not Detected (NOT DETECT); Human Metapneumovirus Not Detected (NOT DETECT); Human Rhinovirus/Enterovirus Not Detected (NOT DETECT); Influenza A Not Detected (NOT DETECT); Influenza A H1 Not Detected (NOT DETECT); Influenza A H1-2009 Not Detected (NOT DETECT); Influenza A H3 Not Detected (NOT DETECT); Influenza B Not Detected (NOT DETECT); Mycoplasma Pneumoniae Not Detected (NOT DETECT); Parainfluenza Virus Type 1 Not Detected (NOT DETECT); Parainfluenza Virus Type 2 Not Detected (NOT DETECT); Parainfluenza Virus Type 3 Not Detected (NOT DETECT); Parainfluenza Virus Type 4 Not Detected (NOT DETECT); Respiratory Syncytial Virus A Not Detected (NOT DETECT); Respiratory Syncytial Virus B Not Detected (NOT DETECT); SARS-COV-2 Not Detected (NOT DETECT)
[2022-11-13 16:59] LABS: Glucose Point of Care 139 mg/dL (70-110)
--- NOTE | 2022-11-13 17:05 | P.PN_ITS ---
Subjective Subjective: Tmax of 100.1 Fahrenheit this morning at 4 AM. Overall abdominal pain is improving. Nausea is better. She would like to try advancing her diet today. Continues to ambulate. Passing flatus. Not had a bowel movement yet. Medications: Reviewed: Yes Vitals/I&O/Wt Last Vital Signs Temp 98.7 F 11/13/22 15:55 Pulse 103 H 11/13/22 15:55 Resp 19 H 11/13/22 15:55 BP 140/81 11/13/22 15:55 Pulse Ox 98 11/13/22 15:55 O2 Del Method Room Air 11/12/22 23:55 11/13/22 11/13/22 11/13/22 06:59 14:59 22:59 Intake Total 948.333 / 2308.333 1440 / 1440 Balance 948.333 / 2308.333 1440 / 1440 Physical Exam Narrative: General: No acute distress, AO x3 HEENT: PERRLA, pupils bilaterally equal and reactive, pallors not present Chest: Normal vesicular breath sounds, no added sounds, equal good air entry bilaterally CVS: S1-S2 regular, no murmurs, no tachycardia, no gallops, no rubs Abdomen: Soft, nontender, no organomegaly, bowel sounds present Neuro: No focal deficits, no facial deformity, AO x3, power 5/5 in all limbs Data 11/13/22 05:25 11/13/22 05:25 A&P Assessment and plan (1) Acute pancreatitis: Acute on chronic pancreatitis. Previously thought to be related with hypertriglyceridemia, triglyceride currently at 323, unlikely to be the cause of pancreatitis currently. IV fluid with normal saline at 100 cc an hour to continue Advance diet to mechanical soft today. Assess for tolerability. Pain is better controlled today Pain control with as needed morphine alternating with IV Toradol. CT of the abdomen and pelvis shows signs of acute pancreatitis. MRCP obatined-no current biliary obstruction noted, however there is some impacted stones in the neck of gallbladder. Outpatient follow up for interval cholecytectomy Tmax 100.1 Fahrenheit overnight, no overall signs or symptoms of infection. Abdominal pain is improving, less concern for necrotizing pancreatitis. Check chest x-ray for interval development of any consolidation versus reactive pleural effusion. UA negative upon admission. Check respiratory viral panel. Add laxatives DVT ppx: on Lovenox 40 currently Full code (2) Diabetes mellitus: Currently HbA1c of 10.5 is new for the patient. Fingersticks are running between 1 40-1 70, patient has not required any insulin in the last 24 hours. This was surprising with an HbA1c of 10.5. We will repeat today to confirm. Plan to discharge with basal/bolus insulin. Attestations Medical Necessity Statement*: Ongoing care for acute pancreatitis, advance diet, assess for tolerability, if clinically improving, anticipate discharge in the next 24 hours. Coding Level of Care Code Acute Code for [facility] Diagnoses Acute pancreatitis K85.90 Diabetes mellitus E11.9
[2022-11-13 20:08] LABS: Glucose Point of Care 208 mg/dL (70-110)
[2022-11-13] MEDS: ketorolac 30 mg/mL INJ 15 MG IVP (23:09)
[2022-11-14] VITALS (10 sets, daily range): BP systolic 120–151; BP diastolic 79–93; PULSE 91–133; RESP 16–25; TEMP 36.2–37.8; O2SAT 92–98
[2022-11-14] MEDS: sodium chloride 0.9% 1,000 ML 100 ML IV ×2 (00:08→09:20)
[2022-11-14] MEDS: oxyCODONE-APAP 5-325 mg Tablet 1 TAB PO ×2 (03:48→21:10)
[2022-11-14] MEDS: citalopram 20 mg Tablet PO (05:32)
[2022-11-14 06:47] LABS: Glucose Point of Care 164 mg/dL (70-110)
[2022-11-14] MEDS: insulin lispro 100 unit/1 mL SUBCUT ×2 (08:19→21:09)
[2022-11-14] MEDS: apixaban 5 mg Tablet 2.5 MG PO ×2 (08:19→17:42)
[2022-11-14] MEDS: pantoprazole DR 40 mg Tablet PO (08:19)
[2022-11-14] MEDS: polyethylene glycol 3350 Pkt 17 gm PO (08:19)
--- NOTE | 2022-11-14 10:33 | PC.SOCIAL ---
Imm update Imm updated with mom at bedside. copy of page 2 provided. Mom verbalized understanding. Copy in chart initialed, dated and timed.
[2022-11-14 11:18] LABS: Alanine Aminotransferase 79 U/L (0-33); Albumin Level 2.9 g/dL (3.5-5.2); Alkaline Phosphatase 292 U/L (35-105); Anion Gap 14.9 (5-19); Aspartate Amino Transferase 70 U/L (0-32); Blood Urea Nitrogen 8 mg/dL (6-20); Calcium 7.2 mg/dL (8.5-10.5); Carbon Dioxide 19 mmol/L (22-29); Chloride 106 mmol/L (98-107); Globulin 2.9 g/dL (1.3-4.6); Glomerular Filtration Rate 110.2 mL/min (90-130); Glucose 141 mg/dL (65-115); Osmolality Calculated 285 mOsm/kg (285-295); Sodium 137 mmol/L (136-145); Total Bilirubin 0.7 mg/dL (0.15-1.2); Total Protein 5.8 g/dL (6.6-8.7)
[2022-11-14 11:28] LABS: Glucose Point of Care 140 mg/dL (70-110)
[2022-11-14 11:33] LABS: Potassium 2.9 mmol/L (3.5-5.1)
--- NOTE | 2022-11-14 11:42 | CTR_ITS ---
PROCEDURE INFORMATION: Exam: CT Abdomen And Pelvis With Contrast Exam date and time: 11/14/2022 3:19 PM Age: 42 years old Clinical indication: Abdominal pain; Epigastric; Additional info: Folow up pancreatitis, acute pancreatitis, with abdominal pain, now febrile, assess TECHNIQUE: Imaging protocol: Computed tomography of the abdomen and pelvis with contrast. Radiation optimization: All CT scans at this facility use at least one of these dose optimization techniques: automated exposure control; mA and/or kV adjustment per patient size (includes targeted exams where dose is matched to clinical indication); or iterative reconstruction. Contrast material: OMNI 350; Contrast volume: 100 ml; Contrast route: INTRAVENOUS (IV); REPORTING DATA: Count of CT and Cardiac NM exams in prior 12 months: This patient has received 2 known CTs and 0 known cardiac nuclear medicine studies in the 12 months prior to the current study. COMPARISON: MR MRCP [id number] 11/10/2022 3:41 PM RADIATION DOSE METRICS: Total DLP (mGy-cm): 639.8 FINDINGS: Lungs: Bibasilar atelectasis versus infiltrate. Pleural spaces: Small bilateral pleural effusions. Liver: Hepatic steatosis with scattered areas of fatty sparing. Gallbladder and bile ducts: Gallbladder is somewhat prominent, ultrasound could further evaluate this as clinically indicated. Pancreas: Minimal peripancreatic edema, please correlate for possible pancreatitis. Spleen: Normal. No splenomegaly. Adrenal glands: Normal. No mass. Kidneys and ureters: Perinephric edema bilaterally may reflect renal sufficiency, please correlate for pyelonephritis. Stomach and bowel: Unremarkable. No obstruction. No mucosal thickening. Appendix: No evidence of appendicitis. Intraperitoneal space: Unremarkable. No free air. No significant fluid collection. Vasculature: Unremarkable. No abdominal aortic aneurysm. Lymph nodes: Unremarkable. No enlarged lymph nodes. Urinary bladder: Unremarkable as visualized. Reproductive: Unremarkable as visualized. Bones/joints: Unremarkable. No acute fracture. Soft tissues: Anasarca. Other findings: Small to moderate amount of nonspecific fluid in the pelvis. CT/CT abdomen pelvis w con* [id number] IMPRESSION: 1. Minimal peripancreatic edema, please correlate for possible pancreatitis. 2. Small bilateral pleural effusions. 3. Bibasilar atelectasis versus infiltrate. 4. Hepatic steatosis with scattered areas of fatty sparing. 5. Gallbladder is somewhat prominent, ultrasound could further evaluate this as clinically indicated. 6. Perinephric edema bilaterally may reflect renal sufficiency, please correlate for pyelonephritis. 7. Anasarca. 8. Small to moderate amount of nonspecific fluid in the pelvis.
--- NOTE | 2022-11-14 11:42 | PC.NURSE ---
sent Dr. Colon text via voalte and left voice message regarding critical lab. charge nurse notified as well.
--- NOTE | 2022-11-14 12:53 | PC.NURSE ---
notified charge nurse June of bad IV and CT inablility to start a new one while down for testing. June to assist with starting of new IV.
[2022-11-14] MEDS: lidocaine 1% 5 ML in potassium chloride premix 100 ML 26.25 ML IV (14:56)
[2022-11-14] MEDS: iohexol 350 mg/mL 500 mL Btl (per mL) IV (15:26)
--- NOTE | 2022-11-14 16:53 | PC.NURSE ---
time of k-rider was changed due to no IV, original potassium given at 1456 by DALIA Chapman. Was not duplicated.
[2022-11-14 16:55] LABS: Glucose Point of Care 139 mg/dL (70-110)
--- NOTE | 2022-11-14 18:35 | P.PN_ITS ---
Subjective Subjective: Intermittent low-grade fever Tmax 100 Fahrenheit charted. Tolerated advancing diet to mechanical soft. States that her pain is better. No nausea or vomiting however she still reports feeling very weak. LFTs trending up in the 70s range. Repeated CT of the abdomen and pelvis given low-grade fever, uptrending LFTs to evaluate for any interim development of migration of biliary stone versus complications such as necrotizing pancreatitis. CT negative for the same but does show interval development of ascites. Additionally chest x-ray taken yesterday showing pulmonary venous congestion per my read. IV fluids discontinued. Medications: Reviewed: Yes Vitals/I&O/Wt Last Vital Signs Temp 100.0 F H 11/14/22 16:00 Pulse 103 H 11/14/22 16:00 Resp 16 11/14/22 16:00 BP 151/93 11/14/22 16:00 Pulse Ox 92 11/14/22 16:00 O2 Del Method Room Air 11/14/22 16:00 11/14/22 11/14/22 11/14/22 06:59 14:59 22:59 Intake Total 1000 / 2560 1640 / 1640 1148.333 / 2788.333 Balance 1000 / 2560 1640 / 1640 1148.333 / 2788.333 Physical Exam Narrative: General: No acute distress, AO x3 HEENT: PERRLA, pupils bilaterally equal and reactive, pallors not present Chest: Normal vesicular breath sounds, no added sounds, equal good air entry bilaterally CVS: S1-S2 regular, no murmurs, no tachycardia, no gallops, no rubs Abdomen: Soft, nontender, no organomegaly, bowel sounds present Neuro: No focal deficits, no facial deformity, AO x3, power 5/5 in all limbs Data 11/13/22 05:25 11/14/22 10:36 Other data: CT/CT abdomen pelvis w con* [id number] IMPRESSION: 1. ? Minimal peripancreatic edema, please correlate for possible pancreatitis. 2. ? Small bilateral pleural effusions. 3. ? Bibasilar atelectasis versus infiltrate. 4. ? Hepatic steatosis with scattered areas of fatty sparing. 5. ? Gallbladder is somewhat prominent, ultrasound could further evaluate this as clinically indicated. 6. ? Perinephric edema bilaterally may reflect renal sufficiency, please correlate for pyelonephritis. 7. ? Anasarca. 8. ? Small to moderate amount of nonspecific fluid in the pelvis. Procedure(s): XR chest 1V portable [id number] FINDINGS: Lungs: Pulmonary hypoinflation. Mild increased ground-glass attenuation of the lower lungs and increased perihilar lung markings. No dense consolidation. Pleural spaces: No pneumothorax. Heart/Mediastinum: Unremarkable. No cardiomegaly. Bones/joints: Unremarkable. XR/XR chest 1V portable [id number] IMPRESSION: Nonspecific lung findings may represent bronchovascular crowding in the setting of pulmonary hypoinflation. Differential also includes viral or atypical infectious process. Given technique and positioning, small pleural effusions not excluded. If able, upright PA and lateral chest radiographs with improved inspiration would be beneficial to further evaluate. A&P Assessment and plan (1) Acute pancreatitis: Acute on chronic pancreatitis. Triglyceride currently at 323, unlikely to be the cause of pancreatitis currently. D/c IV fluids given interim development of anasarca and pulmonary congestion. Tolerating mechanical soft diet Pain is better controlled today no longer nauseous CT of the abdomen and pelvis repeated today without signs of necrotizing or hemorrhagic pancreatitis MRCP obatined earlier this admission-no current biliary obstruction noted, however there is some impacted stones in the neck of gallbladder. Outpatient follow up for interval cholecytectomy (2) Diabetes mellitus: Currently HbA1c of 10.5 is new for the patient. Currently on sliding scale insulin Plan to discharge with basal 6 unit/bolus sliding scale insulin. (3) Anasarca: As evidenced by development of ascites, chest x-ray with venous congestion per my read. Lasix 20 mg IV today Discontinue IV fluids. (4) Fever: Unclear source currently Suspect this to be related to inflammatory fevers from pancreatitis CT of the abdomen and pelvis repeated today without any evidence of necrotizing or hemorrhagic pancreatitis. Check UA, previously negative upon admission. Respiratory viral panel negative. Chest x-ray shows pulmonary venous congestion per my read, however per radiology read cannot exclude possibility of atypical pneumonia. 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 Check blood cultures Check Pro-Adalberto with a.m. labs We will start empiric coverage with Zosyn and azithromycin while undergoing infectious work-up. Will likely discontinue antibiotics if all source evaluation remains negative. Attestations Medical Necessity Statement*: continued admission for low grade fever, source evaluation, d/c fluids, iv diutretics Coding Level of Care Code Acute Code for Chg Fwd Moderate MDM includes number and complexity of problems actively addressed during encounter, amount and/or complexity of data reviewed/ordered and described risk of complication, morbidity or mortality of management as documented Diagnoses Acute pancreatitis K85.90 Diabetes mellitus E11.9 Anasarca R60.1 Fever R50.9
[2022-11-14] MEDS: FUROsemide 10 mg/mL SDV 2mL 20 MG IVP (20:00)
[2022-11-14] MEDS: piperacillin-tazobactam 3.375 GM in sodium chloride 0.9% (plus) 50 ML IV (20:00)
[2022-11-14] MEDS: potassium chloride premix 100 ML 25 MEQ IV (20:00)
[2022-11-14 20:29] LABS: Glucose Point of Care 193 mg/dL (70-110)
[2022-11-14 20:31] LABS: Add Urine Microscopic? NO; Charge for UA Resulting for Rev
[2022-11-14 21:04] LABS: Bilirubin Urine Neg (Negative); Blood Urine Neg (Negative); Glucose Urine UA Trace (Normal); Ketones Urine 1+ (Negative); Leukocyte Esterase Urine Negative (Negative); Nitrate Urine Negative (Negative); Protein Urine Neg (Negative); Urine Appearance Clear (CLEAR); Urine Color Yellow (Yellow); Urobilinogen Urine 1 mg/dL (Negative); pH Urine 5 (5-7)
[2022-11-15 03:46] VITALS: BP 124/79; PULSE 76; RESP 17; TEMP 36.1; O2SAT 96
[2022-11-15] MEDS: piperacillin-tazobactam 3.375 GM in sodium chloride 0.9% (plus) 50 ML IV (03:46)
[2022-11-15 05:22] LABS: Basophils # 0.1 10^3/uL (0.0-0.1); Eosinophils # 0.2 10^3/uL (0.0-0.8); Hematocrit 38.5 % (36-47); Lymphocytes # 1.4 10^3/uL (0.8-4.8); Mean Corpuscular HGB Conc 32.2 g/dL (30-55); Mean Corpuscular Hemoglobin 29.6 pg (27-33); Mean Corpuscular Volume 91.9 fl (85-98); Mean Platelet Volume 11.3 fL (7.4-10.4); Monocytes # 0.6 10^3/uL (0.2-0.9); Monocytes % 12.3 %; Neutrophils % 53.7 %; Nucleated Red Blood Cells % 0 %; Platelet Count 151 10^3/cmm (157-399); Red Blood Count 4.19 10^6/uL (3.85-5.65); Red Cell Distribution Width 12.7 % (12.1-15.1); White Blood Count 5.03 10^3/uL (3.29-11.43)
[2022-11-15 05:41] LABS: Alanine Aminotransferase 78 U/L (0-33); Albumin Level 2.8 g/dL (3.5-5.2); Alkaline Phosphatase 316 U/L (35-105); Anion Gap 16.6 (5-19); Aspartate Amino Transferase 49 U/L (0-32); Blood Urea Nitrogen 8 mg/dL (6-20); Calcium 7.8 mg/dL (8.5-10.5); Carbon Dioxide 21 mmol/L (22-29); Chloride 105 mmol/L (98-107); Globulin 3.5 g/dL (1.3-4.6); Glomerular Filtration Rate 92.2 mL/min (90-130); Glucose 125 mg/dL (65-115); Lipase 24 U/L (13-60); Osmolality Calculated 288 mOsm/kg (285-295); Potassium 3.6 mmol/L (3.5-5.1); Sodium 139 mmol/L (136-145); Total Bilirubin 0.6 mg/dL (0.15-1.2); Total Protein 6.3 g/dL (6.6-8.7)
[2022-11-15 05:47] LABS: Procalcitonin 0.37 ng/mL (0-0.5)
[2022-11-15] MEDS: citalopram 20 mg Tablet PO (06:28)
[2022-11-15 06:39] LABS: Glucose Point of Care 146 mg/dL (70-110)
[2022-11-15 07:35] VITALS: BP 136/87; PULSE 84; RESP 15; TEMP 36.6; O2SAT 96
[2022-11-15] MEDS: polyethylene glycol 3350 Pkt 17 gm PO (08:24)
[2022-11-15] MEDS: azithromycin 250 mg Tablet 500 MG PO (08:24)
[2022-11-15] MEDS: pantoprazole DR 40 mg Tablet PO (08:25)
[2022-11-15] MEDS: insulin lispro 100 unit/1 mL SUBCUT (08:25)
[2022-11-15] MEDS: apixaban 5 mg Tablet 2.5 MG PO ×2 (08:25→18:54)
--- NOTE | 2022-11-15 10:27 | USCV_ITS ---
Precious Mckeon Age: 42 Gender: F : 1980 Exam Date: 11/15/2022 10:49 Ordering Phys: Margarito Gutierrez MD Technologist: Gallito Lamas Exam Location: [facility] [place] Indication: LT ARM PAIN AND SWELLING PROCEDURES: Venous duplex imaging was performed in only the left upper extremity. The following venous structures were evaluated: internal jugular vein, subclavian vein, axillary vein, and brachial veins. In addition, the basilic vein, cephalic vein, radial vein, and ulnar vein. FINDINGS: There is occlusive thrombus in the lt cephalic vein. Deep veins are normal CONCLUSIONS Superficial thrombophlebitis is detected in the left cephalic. NO DVT. Dr. Precious Shin DO (Electronically Signed) Final Date: 15 November 2022 11:54 S
--- NOTE | 2022-11-15 10:41 | US_ITS ---
WS: [id number] INDICATION: LEFT arm abscess TECHNIQUE: Ultrasound LEFT arm area of concern FINDINGS: Soft tissue edema. Expansile superficial thrombus within the basilic vein suspicious for montez perficial thrombophlebitis. Recommend clinical correlation. No drainable abscess or fluid collection. IMPRESSION: See above Notified Margarito Gutierrez MD at 11/15/2022 11:27 AM.
[2022-11-15 11:48] VITALS: BP 119/76; PULSE 71; RESP 14; TEMP 36.6; O2SAT 97
[2022-11-15 15:54] VITALS: BP 136/88; PULSE 86; RESP 14; TEMP 36.8; O2SAT 99
[2022-11-15 20:00] VITALS: BP 131/87; PULSE 82; RESP 17; TEMP 36.8; O2SAT 97
--- NOTE | 2022-11-15 20:34 | PM.PN ---
Subjective Subjective: She states she is overall doing all right. Denies trouble breathing. No cough. No respiratory symptoms. Abdomen is still somewhat tender. Tender left AC, swelling left arm around the elbow. Medications: Reviewed: Yes Vitals/I&O/Wt Last Vital Signs Temp 98.3 F 11/15/22 15:54 Pulse 86 11/15/22 15:54 Resp 14 11/15/22 15:54 BP 136/88 11/15/22 15:54 Pulse Ox 99 11/15/22 15:54 O2 Del Method Room Air 11/15/22 15:54 11/15/22 11/15/22 11/15/22 06:59 14:59 22:59 Intake Total 150 / 3163.333 621.667 / 621.667 240 / 861.667 Output Total 500 / 1600 Balance -350 / 1563.333 621.667 / 621.667 240 / 861.667 Physical Exam Narrative: Accompanied by family. Const: COMMON NORMALS: patient oriented x3 and alert GENERAL APPEARANCE: cooperative ORIENTATION/CONSCIOUSNESS: Yes awake HENMT: COMMON NORMALS: oropharynx normal Neck/C-Spine: COMMON NORMALS: no JVD Resp: COMMON NORMALS: normal respiratory effort and clear to auscultation bilaterally AUSCULTATION: clear to auscultation bilaterally Cardio: COMMON NORMALS: no JVD, regular rhythm, S1 normal heart sound present, S2 normal heart sound present and No murmurs present (Cardio) RHYTHM: regular rhythm HEART SOUNDS: S1 normal heart sound present and S2 normal heart sound present GI: COMMON NORMALS: Normal to inspection, nondistended, normoactive bowel sounds present and Soft to palpation PALPATION: Yes Soft to palpation and Yes Tenderness to palpation present (GI) (Epigastrium) Extremity: COMMON NORMALS: no joint enlargement and no pedal edema Neuro: COMMON NORMALS: patient oriented x3 and moves all extremities SENSORIUM/ORIENTATION: Yes alert Skin: COMMON NORMALS: no rashes or lesions noted GENERAL SKIN EXAM: no rashes or lesions noted Data 11/15/22 05:00 11/15/22 05:00 Micro: Microbiology 11/15/22 05:05 Blood Culture - Preliminary Blood SPECIMEN COLLECTED 11/15/22 05:00 Blood Culture - Preliminary Blood SPECIMEN COLLECTED A&P Assessment and plan (1) Acute pancreatitis: Improving. Appetite still not the best. Did have episode of vomiting yesterday. So far none today. She is trying to advance diet. Acute on chronic pancreatitis. Chemistry reviewed. Repeat chemistry. Lipase reviewed, repeat in the morning. CBC reviewed, noted no leukocytosis. Last fever last night. Repeat. Triglyceride currently at 323, unlikely to be the cause of pancreatitis currently. D/c IV fluids given interim development of anasarca and pulmonary congestion. Tolerating mechanical soft diet Pain is better controlled today no longer nauseous CT of the abdomen and pelvis repeated today without signs of necrotizing or hemorrhagic pancreatitis MRCP obatined earlier this admission-no current biliary obstruction noted, however there is some impacted stones in the neck of gallbladder. Outpatient follow up for interval cholecytectomy (2) Fever: Left antecubital fossa swelling, erythema, left arm swelling around the elbow: Assess ultrasound after infiltrated IV to assess for any abscess. Discussed with radiology, no abscess noted. But noted superficial phlebitis -possible source of her fever. No respiratory symptoms. Procalcitonin noted 0.37. For now continue Zosyn. Unclear source currently Suspect this to be related to inflammatory fevers from pancreatitis CT of the abdomen and pelvis repeated today without any evidence of necrotizing or hemorrhagic pancreatitis. Check UA, previously negative upon admission. Respiratory viral panel negative. Chest x-ray shows pulmonary venous congestion per my read, however per radiology read cannot exclude possibility of atypical pneumonia. 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 Check blood cultures Check Pro-Adalberto with a.m. labs (3) Diabetes mellitus: Currently HbA1c of 10.5 is new for the patient. Currently on sliding scale insulin Plan to discharge with basal 6 unit/bolus sliding scale insulin. (4) Anasarca: As evidenced by development of ascites, chest x-ray with venous congestion per my read. Lasix 20 mg IV today Discontinue IV fluids. Attestations Medical Necessity Statement*: Continue admission for assessment management of acute pancreatitis, fever. and High MDM includes amount and/or complexity of data reviewed/ordered [ resulted lab(s)/test(s), ordered lab(s)/test(s) and other healthcare professional discussion] as documented Diagnoses Acute pancreatitis K85.90 Fever R50.9 Diabetes mellitus E11.9 Anasarca R60.1
[2022-11-15 20:39] VITALS: RESP 18
[2022-11-15] MEDS: oxyCODONE-APAP 5-325 mg Tablet 1 TAB PO (20:39)
[2022-11-16] VITALS: BP 119/68; PULSE 83; RESP 18; TEMP 36.5; O2SAT 94
[2022-11-16 04:00] VITALS: BP 131/84; PULSE 83; RESP 17; TEMP 36.4; O2SAT 97
--- NOTE | 2022-11-16 04:00 | XR_ITS ---
WS: [id number] Exam: XR chest 1V portable [id number] Date/Time of Exam: 11/16/2022 4:41 AM Reason For Exam: fever Comparison 11/13/2022. The lungs are fully expanded. Increased pulmonary vascularity noted. Normal cardiomediastinal silhoue tte. No pleural effusions. Chronic elevation of the RIGHT diaphragm. Bony structures are intact. IMPRESSION: 1. Increased pulmonary vascularity. This pattern is unchanged. 2. Chronically elevated RIGHT diaphragm.
[2022-11-16] MEDS: citalopram 20 mg Tablet PO (05:41)
[2022-11-16 06:36] LABS: Basophils % 0.9 %; Eosinophils # 0.2 10^3/uL (0.0-0.8); Eosinophils % 5.1 %; Hematocrit 33.5 % (36-47); Lymphocytes # 1.9 10^3/uL (0.8-4.8); Lymphocytes % 41.1 %; Mean Corpuscular HGB Conc 33.4 g/dL (30-55); Mean Corpuscular Hemoglobin 30.4 pg (27-33); Mean Corpuscular Volume 90.8 fl (85-98); Mean Platelet Volume 11.4 fL (7.4-10.4); Monocytes # 0.5 10^3/uL (0.2-0.9); Monocytes % 11.3 %; Neutrophils # 1.84 10^3/uL (1.8-7.7); Neutrophils % 40.9 %; Nucleated Red Blood Cells % 0 %; Platelet Count 150 10^3/cmm (157-399); Red Blood Count 3.69 10^6/uL (3.85-5.65); Red Cell Distribution Width 12.7 % (12.1-15.1)
[2022-11-16 06:49] LABS: Alanine Aminotransferase 68 U/L (0-33); Alkaline Phosphatase 293 U/L (35-105); Aspartate Amino Transferase 73 U/L (0-32); Blood Urea Nitrogen 10 mg/dL (6-20); Calcium 7.7 mg/dL (8.5-10.5); Carbon Dioxide 27 mmol/L (22-29); Chloride 102 mmol/L (98-107); Creatinine Clr Calc Pharmacy 148.4383; Globulin 3.1 g/dL (1.3-4.6); Glucose 140 mg/dL (65-115); Osmolality Calculated 287 mOsm/kg (285-295); Sodium 138 mmol/L (136-145); Total Bilirubin 0.6 mg/dL (0.15-1.2); Total Protein 6.1 g/dL (6.6-8.7)
[2022-11-16 06:50] LABS: Anion Gap 12.6 (5-19); Potassium 3.6 mmol/L (3.5-5.1)
[2022-11-16 06:59] LABS: Lipase 20 U/L (13-60)
[2022-11-16 07:15] LABS: Slide Review Slide Review Perform
[2022-11-16 07:18] VITALS: PULSE 80; RESP 16; TEMP 36.6; O2SAT 97
[2022-11-16] MEDS: azithromycin 250 mg Tablet 500 MG PO (08:57)
[2022-11-16] MEDS: polyethylene glycol 3350 Pkt 17 gm PO (08:57)
[2022-11-16] MEDS: insulin lispro 100 unit/1 mL SUBCUT ×2 (08:58→12:20)
[2022-11-16] MEDS: pantoprazole DR 40 mg Tablet PO (08:58)
[2022-11-16] MEDS: apixaban 5 mg Tablet 2.5 MG PO (08:58)
[2022-11-16] MEDS: FUROsemide 20 mg Tablet PO (08:58)
--- NOTE | 2022-11-16 10:19 | PC.NURSE ---
discharge pending medication action by physician
[2022-11-16 10:23] LABS: Glucose Point of Care 122 mg/dL (70-110)
[2022-11-16 10:23] LABS: Glucose Point of Care 125 mg/dL (70-110)
[2022-11-16 10:23] LABS: Glucose Point of Care 104 mg/dL (70-110)
[2022-11-16 10:23] LABS: Glucose Point of Care 143 mg/dL (70-110)
[2022-11-16 11:07] VITALS: BP 138/90; PULSE 68; RESP 15; TEMP 36.4; O2SAT 97
--- NOTE | 2022-11-16 11:29 | PC.SOCIAL ---
IMM update IMM updated with patient/family at bedside. Verbalized an understanding. Copy Pg 2 provided. Initialled, dated, timed, and placed in chart.
[2022-11-16 11:38] LABS: Glucose Point of Care 151 mg/dL (70-110)
--- NOTE | 2022-11-16 12:49 | P.DS_ITS ---
Discharge Providers Date of Admission: 11/09/22 16:07 Date of Discharge: November 16, 2022 Attending Provider at Admission: Alka Colon MD Attending Provider at Discharge: Margarito Gutierrez Primary Care Provider: YAMIL Hoffman Diagnoses at Discharge Discharge Diagnosis (1) Acute pancreatitis: Status: Acute (2) Fever: Status: Acute (3) Diabetes mellitus: Status: Acute (4) Anasarca: Status: Acute Reason for Visit 2 Reason for Visit: n/v swollen adb Brief History: Precious Mckeon is a 42 year old lady with intellectual disability with past medical history of? hypertriglyceridemia associated acute pancreatitis, cholelithiasis, came in today with chief complaint of upper abdominal pain nausea vomiting over the past 24 hrs. No chest pain dyspnea palpitations or syncope.? CT of the abdomen performed today showed evidence of acute pancreatitis. LFTs are similar to prior range, though alkaline phosphatase today appearing to be in the 400 range while previously noted to be between 150-200.? She has an elevated white blood cell count at 14.5.? Denies any fever. Hospital Course Hospital Course In the past diagnosed with hypertriglyceridemia induced pancreatitis versus gallstone associated pancreatitis, or, this time triglycerides only 323, unlikely contributing factor. MRCP was performed due to alk phos elevation in the 490s, previously usually around 200s, no obstruction was found with inability system but was noted to have impacted gallstone in the gallbladder neck. On consultation with surgery recommendation was for outpatient interval cholecystectomy, and she is referred for follow-up, without acute surgical intervention recommended in the hospital. She was treated conservatively with regards to pancreatitis, received IV hydration, analgesics, antiemetics, did have several episodes of emesis. Additionally noted A1c 10.7, new diagnosis of diabetes for her. Arrangements made for insulin pens for her for discharge including basal insulin and sliding scale. Her mother had obtained a glucometer. Her pain had gradually resolved. Oral intake improved. She did develop low-grade temp spikes 99 F-100 F, respiratory viral panel was negative. Chest x-ray with some bilateral infiltrates consideration of possible pneumonia, versus pulmonary edema, versus pneumonitis. Transiently was continued on antibiotics with Zosyn, azithromycin, discharge is switched over to cefdinir, azithromycin, although respiratory ahll is otherwise doing well. Rece ived IV Lasix in the hospital due to anasarca, possible pulmonary edema, has been doing well on room air. At discharge continues with oral dose Lasix, please reassess volume status to determine if Lasix can be switched to as needed dosing. CT abdomen pelvis repeated with minimal peripancreatic edema, some perinephric edema. Urinalysis not suggestive of UTI. Blood cultures have been negative, so far preliminary. Please follow-up final result. Low-grade temp may also have been due to development of superficial thrombophlebitis. Swelling, tenderness, mild erythema left arm around antecubital fossa at site of prior IV, proximal forearm and distal upper arm, assessed by ultrasound soft tissue, no abscess found, but on duplex is noted to have superficial thrombophlebitis cephalic vein. With mild elevation of the extremity above heart level swelling has improved, instructed to protect extremity, avoid blood pressure measurements, IVs blood draws in that arm. Please reassess. In addition to follow-up with surgery, please refer to gastroenterology for assessment of recurrent pancreatitis. Physical Exam Narrative: Accompanied by family. Const: COMMON NORMALS: patient oriented x3 and alert GENERAL APPEARANCE: cooperative ORIENTATION/CONSCIOUSNESS: Yes awake HENMT: COMMON NORMALS: oropharynx normal Neck/C-Spine: COMMON NORMALS: no JVD Resp: COMMON NORMALS: normal respiratory effort and clear to auscultation bilaterally AUSCULTATION: clear to auscultation bilaterally Cardio: COMMON NORMALS: no JVD, regular rhythm, S1 normal heart sound present, S2 normal heart sound present and No murmurs present (Cardio) RHYTHM: regular rhythm HEART SOUNDS: S1 normal heart sound present and S2 normal heart sound present GI: COMMON NORMALS: Normal to inspection, nondistended, normoactive bowel sounds present, Soft to palpation and non-tender PALPATION: Yes Soft to palpation Extremity: COMMON NORMALS: no joint enlargement and no pedal edema OTHER: Decreased swelling LUE. Minimal spot of erythema of about 1 cm at prior IV site left antecubital fossa. Neuro: COMMON NORMALS: patient oriented x3 and moves all extremities SENSORIUM/ORIENTATION: Yes alert Skin: COMMON NORMALS: no rashes or lesions noted GENERAL SKIN EXAM: no rashes or lesions noted Discharge Data Studies Completed and Pending Completed Studies During Hospitalization Category Date Time Status CT abdomen pelvis w con* [id number] Urgent Cat Scan 11/14/22 11:[address] abdomen pelvis wo con [id number] Stat Cat Scan 11/09/22 12:59 Completed CXRP [XR chest 1V portable [id number]] AM LABS Exams 11/16/22 04:00 Completed CXRP [XR chest 1V portable [id number]] Routine Exams 11/13/22 12:20 Completed XR abdomen 1V* [id number] Routine Exams 11/11/22 17:01 Completed MR MRCP [id number] Routine MRI 11/10/22 18:05 [place] [id number] Routine Ultrasound 11/15/22 10:27 Completed US gall bladder [id number] Stat Ultrasound 11/09/22 14:43 Completed US soft tissue/extremity [id number] Routine Ultrasound 11/15/22 10:41 Completed Pending at discharge Category Date Time Status Blood Culture AM LABS Lab 11/15/22 05:05 Results Complete Blood Count w/Auto AM LABS Lab 11/17/22 04:00 Ordered Complete Blood Count w/Auto AM LABS Lab 11/18/22 04:00 Ordered Comprehensive Metabolic Panel AM LABS Lab 11/17/22 04:00 Ordered Comprehensive Metabolic Panel AM LABS Lab 11/18/22 04:00 Ordered Radiology Impressions Abdomen X-Ray 11/11/22 17:01 IMPRESSION: No acute findings. Abdomen/Pelvis CT 11/14/22 11:42 IMPRESSION: 1. Minimal peripancreatic edema, please correlate for possible pancreatitis. 2. Small bilateral pleural effusions. 3. Bibasilar atelectasis versus infiltrate. 4. Hepatic steatosis with scattered areas of fatty sparing. 5. Gallbladder is somewhat prominent, ultrasound could further evaluate this as clinically indicated. 6. Perinephric edema bilaterally may reflect renal sufficiency, please correlate for pyelonephritis. 7. Anasarca. 8. Small to moderate amount of nonspecific fluid in the pelvis. Laboratory Results WBC 4.50 10^3/uL (3.29-11.43) 11/16/22 06:22 RBC 3.69 10^6/uL (3.85-5.65) L 11/16/22 06:22 Hgb 11.20 g/dL (11.27-16.99) L 11/16/22 06:22 Hct 33.5 % (36-47) L 11/16/22 06:22 MCV 90.8 fl (85-98) 11/16/22 06:22 MCH 30.4 pg (27-33) 11/16/22 06:22 MCHC 33.4 g/dL (30-55) 11/16/22 06:22 RDW 12.7 % (12.1-15.1) 11/16/22 06:22 Plt Count 150 10^3/cmm (157-399) L 11/16/22 06:22 MPV 11.4 fL (7.4-10.4) H 11/16/22 06:22 Neut % (Auto) 40.9 % 11/16/22 06:22 Lymph % (Auto) 41.1 % 11/16/22 06:22 [place] % (Auto) 11.3 % 11/16/22 06:22 Eos % (Auto) 5.1 % 11/16/22 06:22 Baso % (Auto) 0.9 % 11/16/22 06:22 Neut # (Auto) 1.84 10^3/uL (1.8-7.7) 11/16/22 06:22 Lymph # (Auto) 1.9 10^3/uL (0.8-4.8) 11/16/22 06:22 [place] # (Auto) 0.5 10^3/uL (0.2-0.9) 11/16/22 06:22 Eos # (Auto) 0.2 10^3/uL (0.0-0.8) 11/16/22 06:22 Baso # (Auto) 0.0 10^3/uL (0.0-0.1) 11/16/22 06:22 Nucleated RBC % (auto) 0 % 11/16/22 06:22 Nucleated RBCs # 0.0 /100WBC 11/16/22 06:22 Sodium 138 mmol/L (136-145) 11/16/22 06:22 Potassium 3.6 mmol/L (3.5-5.1) 11/16/22 06:22 Chloride 102 mmol/L (98-107) 11/16/22 06:22 Carbon Dioxide 27 mmol/L (22-29) 11/16/22 06:22 Anion Gap 12.6 (5-19) 11/16/22 06:22 BUN 10 mg/dL (6-20) 11/16/22 06:22 Creatinine 0.5 mg/dL (0.5-0.9) 11/16/22 06:22 GFR Calculation 136.0 mL/min (90-130) H 11/16/22 06:22 Glucose 140 mg/dL (65-115) H 11/16/22 06:22 POC Glucose 151 mg/dL (70-110) H 11/16/22 11:06 Estimat Average Glucose 260 11/13/22 05:25 Hemoglobin A1c 10.7 % (4.0-6.0) H 11/13/22 05:25 Calculated Osmolality 287 mOsm/kg (285-295) 11/16/22 06:22 Lactic Acid 3.0 mmol/L (0.5-2.2) H 11/09/22 12:47 Lactic Acid (Sepsis) 1.7 mmol/L (0.5-2.2) 11/09/22 16:02 Calcium 7.7 mg/dL (8.5-10.5) L 11/16/22 06:22 Total Bilirubin 0.6 mg/dL (0.15-1.2) 11/16/22 06:22 AST 73 U/L (0-32) H 11/16/22 06:22 ALT 68 U/L (0-33) H 11/16/22 06:22 Alkaline Phosphatase 293 U/L (35-105) H 11/16/22 06:22 Total Protein 6.1 g/dL (6.6-8.7) L 11/16/22 06:22 Albumin 3.0 g/dL (3.5-5.2) L 11/16/22 06:22 Globulin 3.1 g/dL (1.3-4.6) 11/16/22 06:22 Triglycerides 323 mg/dL (0-150) H 11/09/22 16:02 Lipase 20 U/L (13-60) 11/16/22 06:22 Procalcitonin 0.37 ng/mL (0-0.5) 11/15/22 05:00 Urine Color Yellow (Yellow) 11/14/22 20:17 Urine Appearance Clear (CLEAR) 11/14/22 20:17 Urine pH 5 (5-7) 11/14/22 20:17 Ur Specific [place] 1.010 (1.005-1.030) 11/14/22 20:17 Urine Protein Neg (Negative) 11/14/22 20:17 Urine Glucose (UA) Trace (Normal) H 11/14/22 20:17 Urine Ketones 1+ (Negative) H 11/14/22 20:17 Urine Blood Neg (Negative) 11/14/22 20:17 Urine Nitrate Negative (Negative) 11/14/22 20:17 Urine Bilirubin Neg (Negative) 11/14/22 20:17 Urine Urobilinogen 1 mg/dL (Negative) H 11/14/22 20:17 Ur Leukocyte Esterase Negative (Negative) 11/14/22 20:17 Nasal Influ A H1 2009 PCR Not detected (NOT DETECT) 11/13/22 12:38 Adenovirus (PCR) Not detected (NOT DETECT) 11/13/22 12:38 C. pneumoniae DNA (PCR) Not detected (NOT DETECT) 11/13/22 12:38 Coronavirus 229E (PCR) Not detected (NOT DETECT) 11/13/22 12:38 Human Metapneumovir PCR Not detected (NOT DETECT) 11/13/22 12:38 Influenza A (H1) PCR Not detected (NOT DETECT) 11/13/22 12:38 Influenza A (H3) PCR Not detected (NOT DETECT) 11/13/22 12:38 Influenza Type A (PCR) Not detected (NOT DETECT) 11/13/22 12:38 Influenza Type B (PCR) Not detected (NOT DETECT) 11/13/22 12:38 M. pneumoniae (PCR) Not detected (NOT DETECT) 11/13/22 12:38 Parainfluenza 1 (PCR) Not detected (NOT DETECT) 11/13/22 12:38 Parainfluenza 2 (PCR) Not detected (NOT DETECT) 11/13/22 12:38 Parainfluenza 3 (PCR) Not detected (NOT DETECT) 11/13/22 12:38 Parainfluenza 4 (PCR) Not detected (NOT DETECT) 11/13/22 12:38 RSV Type A (PCR) Not detected (NOT DETECT) 11/13/22 12:38 RSV Type B (PCR) Not detected (NOT DETECT) 11/13/22 12:38 Entero/Rhino (PCR) Not detected (NOT DETECT) 11/13/22 12:38 SARS-CoV-2 (PCR) Not detected (NOT DETECT) 11/13/22 12:38 Vitals Last Vital Signs Temp 97.6 F 11/16/22 11:07 Pulse 68 11/16/22 11:07 Resp 15 11/16/22 11:07 BP 138/90 11/16/22 11:07 Pulse Ox 97 11/16/22 11:07 O2 Del Method Room Air 11/16/22 11:07 Discharge Plan Discharge Patient Disposition: Home Condition: Stable Prescriptions: New Lantus Solostar U-100 Insulin 100 unit/mL (3 mL) insulin pen 8 unit SUBCUT DAILY 30 Days Qty: 15 0RF Humalog Igor KwikPen U-100 100 unit/mL insulin pen, half-unit 3.5 unit SUBCUT TID Qty: 15 0RF azithromycin 250 mg Tablet 500 mg PO DAILY Qty: 3 0RF cefdinir 300 mg capsule 300 mg PO BID Qty: 4 0RF polyethylene glycol 3350 17 gram Powder In Packet 17 g PO DAILY PRN (Reason: Constipation) Qty: 90 0RF furosemide 20 mg Tablet 20 mg PO DAILY@0800 Qty: 30 0RF Continued Eliquis 2.5 mg tablet 2.5 mg PO BID potassium chloride 20 mEq tablet extended release 20 meq PO QAM acetaminophen 500 mg Tablet 1,000 mg PO Q6H PRN (Reason: Pain) hydroxyzine HCl 25 mg tablet 25 mg PO QID PRN (Reason: Itching) citalopram 20 mg tablet 20 mg PO QAM Discharge Orders: Discharge Order (Routine); Ordered 11/16/22 Ordered By: Margarito Gutierrez Referrals: [facility] [Provider Group] (Interval cholecystectomy) [facility] [Provider Group] (Gastroenterology in [place]) HarrellSuzie FNP [Primary Care Provider] - 11/25/22 9:00 am Discharge Diet: As Directed, Diabetic and Low Cholesterol Patient Instructions: Type 2 Diabetes, Diabetes and Diet, Insulin Glargine (By injection), Insulin Lispro (By injection) (HumaLOG, HumaLOG Pen, Lispro-PFC,..., Pancreatitis (GEN), Superficial Thrombophlebitis (GEN), Hypoglycemia in a Person with Diabetes (GEN), Type 2 Diabetes in Adults: New Diagnosis (GEN), Basic Car bohydrate Counting (GEN), Meal Planning with the Plate Method (GEN), Managing Diabetes During Sick Days (GEN), Diabetic Hyperglycemia (GEN), Diabetes and Your Skin (GEN), Hemoglobin A1c (GEN), Diabetes and Your Mouth (GEN), Hypertension and Diabetes (GEN), What to Do if Your Blood Sugar is Low (GEN), Diabetes and Nutrition (GEN), Diabetes and Exercise (GEN), Type 2 Diabetes Management for Adults (GEN) Activity Restrictions/Additional Instructions: Follow-up with primary provider for reassessment after improvement from acute pancreatitis. Please arrange follow-up with gastroenterology with your primary provider for additional assessment of recurrent pancreatitis. Discussed also with your primary provider and follow-up with surgery regarding interval gallbladder removal. Please elevate left upper extremity as discussed to help avoid swelling with superficial thrombophlebitis. Please have your primary doctor reassess your arm with regards to blood clot in the left cephalic vein. Monitor for any progression. Avoid blood pressures and blood draws and IVs in that arm. Follow-up with your primary doctor for reassessment of new finding of diabetes. Continue long-acting and sliding scale insulin. Consistent carbohydrate diet. Low blood glucoses dangerous, avoid it (if blood glucose less than 100 hold all insulin, if blood glucose less than 70 take sugary snacks, recheck blood glucose in 15 minutes, if not improving call 911). Work with your primary doctor to optimize diabetes control. Continue Lasix due to swelling, please follow-up with your primary doctor for reassessment of swelling and to discuss when Lasix can be switched to as needed. Discharge Attestations Time Spent in Discharge Care*: greater than 30 min Status at Discharge: Cognitive status at discharge: mildly impaired cognition , Behavioral status at discharge: cooperative , Quality Metrics Clinical Quality Measures [ No reported AMI, CVA or VTE this stay] Coding Level of Care Code Acute Code for Chg Fwd Diagnoses Acute pancreatitis K85.90 Fever R50.9 Diabetes mellitus E11.9 Anasarca R60.1
[2022-11-16 13:18] VITALS: BP 138/90; PULSE 68; RESP 15; TEMP 36.4; O2SAT 97
== END 2022-11-16 13:19 | disposition home or self-care (01) | DRG 439 ==
LOC: ER 13:56 → MEDSURG 16:07
PROVIDERS: Admitting Provider Student in an Organized Health Care Education/Training Program; Emergency Provider Family Medicine; PCP Nurse Practitioner Family; Visit Provider Internal Medicine
DX: K85.10 Biliary acute pancreatitis without necrosis or infection (principal); R18.8 Other ascites; K86.1 Other chronic pancreatitis; F79 Unspecified intellectual disabilities; E78.1 Pure hyperglyceridemia; K80.20 Calculus of gallbladder without cholecystitis without obstruction; E11.9 Type 2 diabetes mellitus without complications; I80.8 Phlebitis and thrombophlebitis of other sites; Z79.01 Long term (current) use of anticoagulants; Z86.16 Personal history of COVID-19; I10 Essential (primary) hypertension; F41.1 Generalized anxiety disorder; Z87.01 Personal history of pneumonia (recurrent); Z86.711 Personal history of pulmonary embolism
CPT/HCPCS: 36415; 36416; 71045; 74018; 74176; 74177; 74181; 76705; 76882; 80053; 81003; 82962; 83036; 83605; 83690; 84145; 84478; 85025; 87040; 87486; 87581; 87633; 93971; 96372; 96374; 96375; 96376; 99285; J1650; J1815; J1885; J1940; J2270; J2405; J2543; J2765; J3480; J7030; Q0144; Q9967

== ENCOUNTER → 2022-11-26 08:48 | Outpatient (BNVA) | payer MEDICARE, MEDICAID, SELFPAY | PROVIDERS: PCP Nurse Practitioner Family; Visit Provider Internal Medicine | DX: E11.9 Type 2 diabetes mellitus without complications (principal); E78.1 Pure hyperglyceridemia; R74.01 Elevation of levels of liver transaminase levels; K85.90 Acute pancreatitis without necrosis or infection, unspecified; Z79.4 Long term (current) use of insulin | CPT/HCPCS: 99204 ==

== ENCOUNTER → 2022-12-16 13:34 | Outpatient (BNVA) | payer MEDICARE, MEDICAID, SELFPAY | PROVIDERS: PCP Nurse Practitioner Family; Referring Provider Nurse Practitioner Family; Visit Provider Surgery | DX: K82.9 Disease of gallbladder, unspecified (principal) | CPT/HCPCS: 99204 ==

== ENCOUNTER → 2023-03-03 10:04 | Outpatient (BNVA) | payer MEDICARE, MEDICAID, SELFPAY | PROVIDERS: PCP Nurse Practitioner Family; Visit Provider Internal Medicine | DX: E11.9 Type 2 diabetes mellitus without complications (principal); E78.1 Pure hyperglyceridemia; L29.9 Pruritus, unspecified; R74.01 Elevation of levels of liver transaminase levels; Z79.4 Long term (current) use of insulin; Z79.84 Long term (current) use of oral hypoglycemic drugs | CPT/HCPCS: 99214 ==

== ENCOUNTER → 2023-05-11 12:41 | Outpatient (BNVA) | payer MEDICARE, MEDICAID, SELFPAY | PROVIDERS: PCP Nurse Practitioner Family; Visit Provider Nurse Practitioner Family | DX: L98.1 Factitial dermatitis (principal); D22.62 Melanocytic nevi of left upper limb, including shoulder; L81.4 Other melanin hyperpigmentation | CPT/HCPCS: 99204 ==

== ENCOUNTER 2023-05-30 10:37 | Outpatient (CLI) | payer MEDICARE, MEDICAID, SELFPAY ==
[2023-05-30 11:17] LABS: Basophils # 0.1 10^3/uL (0.0-0.1); Basophils % 1.3 %; Eosinophils # 0.3 10^3/uL (0.0-0.8); Eosinophils % 4.5 %; Hematocrit 39.5 % (36-47); Lymphocytes # 3.3 10^3/uL (0.8-4.8); Lymphocytes % 47.2 %; Mean Corpuscular HGB Conc 32.7 g/dL (30-55); Mean Corpuscular Hemoglobin 29.2 pg (27-33); Mean Corpuscular Volume 89.4 fl (85-98); Mean Platelet Volume 12.1 fL (7.4-10.4); Monocytes # 0.5 10^3/uL (0.2-0.9); Monocytes % 6.6 %; Neutrophils # 2.79 10^3/uL (1.8-7.7); Neutrophils % 40.1 %; Nucleated Red Blood Cells % 0 %; Platelet Count 176 10^3/cmm (157-399); Red Blood Count 4.42 10^6/uL (3.85-5.65); Red Cell Distribution Width 12.8 % (12.1-15.1); White Blood Count 6.95 10^3/uL (3.29-11.43)
[2023-05-30 11:34] LABS: Estmated Average Glucose 120; Hemoglobin A1C 5.8 % (4.0-6.0)
[2023-05-30 11:43] LABS: Alanine Aminotransferase 133 U/L (0-33); Albumin Level 3.9 g/dL (3.5-5.2); Alkaline Phosphatase 346 U/L (35-105); Anion Gap 14.9 (5-19); Aspartate Amino Transferase 77 U/L (0-32); Blood Urea Nitrogen 22 mg/dL (6-20); Carbon Dioxide 28 mmol/L (22-29); Chloride 103 mmol/L (98-107); Cholesterol 196 mg/dL (0-200); Globulin 2.8 g/dL (1.3-4.6); Glomerular Filtration Rate 92.2 mL/min (90-130); Glucose 97 mg/dL (65-115); HDL Cholesterol 56 mg/dL (60-100); LDL Cholesterol Calculated 99 mg/dL (50-129); LDL HDL Ratio 1.77 RATIO (0.00-3.22); Osmolality Calculated 295 mOsm/kg (285-295); Potassium 4.9 mmol/L (3.5-5.1); Sodium 141 mmol/L (136-145); Total Bilirubin 0.3 mg/dL (0.15-1.2); Total Protein 6.7 g/dL (6.6-8.7); Triglycerides 206 mg/dL (0-150)
[2023-05-30 11:55] LABS: Iron 137 ug/dL (37-145); Percent Saturation 44.6 % (20-50); Thyroid Stimulating Hormone 1.66 uIU/mL (0.27-4.20); Total Iron Binding Capacity 307 mcg/dl; Unsaturated Iron Binding 170 ug/dL (112-347)
[2023-05-30 13:11] LABS: Free T4 Free Thyroxine 1.07 ng/dL (0.82-1.77)
== END 2023-05-30 10:38 | disposition home or self-care (01) ==
LOC: LAB 10:42
PROVIDERS: Absent Provider Nurse Practitioner Family; PCP Nurse Practitioner Family; Visit Provider Internal Medicine
DX: E11.9 Type 2 diabetes mellitus without complications (principal); L29.8 Other pruritus; R74.01 Elevation of levels of liver transaminase levels
CPT/HCPCS: 36415; 80053; 80061; 82248; 83036; 83540; 83550; 84439; 84443; 85025

== ENCOUNTER → 2023-06-03 08:36 | Outpatient (BNVA) | payer MEDICARE, MEDICAID, SELFPAY | PROVIDERS: PCP Nurse Practitioner Family; Visit Provider Internal Medicine | DX: E11.9 Type 2 diabetes mellitus without complications (principal); E78.1 Pure hyperglyceridemia; L29.9 Pruritus, unspecified; R74.01 Elevation of levels of liver transaminase levels; K76.0 Fatty (change of) liver, not elsewhere classified; Z79.4 Long term (current) use of insulin; Z79.84 Long term (current) use of oral hypoglycemic drugs | CPT/HCPCS: 99214 ==

== ENCOUNTER → 2023-06-09 09:53 | Outpatient (BNVA) | payer MEDICARE, MEDICAID, SELFPAY | PROVIDERS: PCP Nurse Practitioner Family; Visit Provider Nurse Practitioner Family | DX: L98.1 Factitial dermatitis (principal); D22.62 Melanocytic nevi of left upper limb, including shoulder; L81.4 Other melanin hyperpigmentation | CPT/HCPCS: 99213 ==

== ENCOUNTER 2023-09-23 09:30 | Outpatient (CLI) | payer MEDICARE, MEDICAID, SELFPAY ==
[2023-09-23 10:21] LABS: Alanine Aminotransferase 55 U/L (0-33); Albumin Level 3.7 g/dL (3.5-5.2); Alkaline Phosphatase 216 U/L (35-105); Anion Gap 15.5 (5-19); Aspartate Amino Transferase 37 U/L (0-32); Blood Urea Nitrogen 25 mg/dL (6-20); Calcium 9.1 mg/dL (8.5-10.5); Carbon Dioxide 27 mmol/L (22-29); Chloride 102 mmol/L (98-107); Chol HDL Ratio 3.04 mg/dL (0.0-4.40); Cholesterol 155 mg/dL (0-200); Globulin 2.4 g/dL (1.3-4.6); Glucose 134 mg/dL (65-115); HDL Cholesterol 51 mg/dL (60-100); LDL Cholesterol Calculated 77 mg/dL (50-129); LDL HDL Ratio 1.51 RATIO (0.00-3.22); Osmolality Calculated 296 mOsm/kg (285-295); Potassium 4.5 mmol/L (3.5-5.1); Sodium 140 mmol/L (136-145); Total Bilirubin 0.2 mg/dL (0.15-1.2); Total Protein 6.1 g/dL (6.6-8.7); Triglycerides 137 mg/dL (0-150)
[2023-09-23 10:22] LABS: Estmated Average Glucose 126
[2023-09-23 10:25] LABS: Creatinine Urine, Random 29 mg/dL (28-217); Microalbum Creatinine Ratio Ur 34 mg/dL (0-20); Microalbumin Random Urine 1 ug/dL (0-20)
== END 2023-09-23 09:31 | disposition home or self-care (01) ==
LOC: LAB 09:30
PROVIDERS: PCP Nurse Practitioner Family; Visit Provider Internal Medicine
DX: E11.9 Type 2 diabetes mellitus without complications (principal); E78.1 Pure hyperglyceridemia; R74.01 Elevation of levels of liver transaminase levels
CPT/HCPCS: 36415; 80053; 80061; 82044; 83036

== ENCOUNTER → 2024-01-04 08:00 | Outpatient (BNVA) | payer MEDICARE, MEDICAID, SELFPAY | PROVIDERS: PCP Nurse Practitioner Family; Visit Provider Internal Medicine | DX: E11.9 Type 2 diabetes mellitus without complications (principal); E78.1 Pure hyperglyceridemia; L29.9 Pruritus, unspecified; R74.01 Elevation of levels of liver transaminase levels; K75.81 Nonalcoholic steatohepatitis (NASH) | CPT/HCPCS: 36415; 80053; 80061; 82044; 83036; 99214 ==

== ENCOUNTER 2024-07-03 09:40 | Outpatient (CLI) | payer MEDICARE, MEDICAID, SELFPAY ==
[2024-07-03 10:16] LABS: Basophils # 0.1 10^3/uL (0.0-0.1); Eosinophils # 0.2 10^3/uL (0.0-0.8); Lymphocytes # 2.8 10^3/uL (0.8-4.8); Lymphocytes % 40.7 %; Mean Corpuscular HGB Conc 32.7 g/dL (30-55); Mean Corpuscular Hemoglobin 29.5 pg (27-33); Mean Corpuscular Volume 90.2 fl (85-98); Mean Platelet Volume 11.6 fL (7.4-10.4); Monocytes # 0.5 10^3/uL (0.2-0.9); Monocytes % 7.3 %; Neutrophils # 3.32 10^3/uL (1.8-7.7); Neutrophils % 47.9 %; Nucleated Red Blood Cells % 0 %; Platelet Count 207 10^3/cmm (157-399); Red Blood Count 4.88 10^6/uL (3.85-5.65); Red Cell Distribution Width 12.3 % (12.1-15.1); White Blood Count 6.95 10^3/uL (3.29-11.43)
[2024-07-03 10:33] LABS: Alanine Aminotransferase 39 U/L (0-33); Alkaline Phosphatase 278 U/L (35-105); Anion Gap 17.4 (5-19); Aspartate Amino Transferase 30 U/L (0-32); Blood Urea Nitrogen 21 mg/dL (6-20); Calcium 9.3 mg/dL (8.5-10.5); Carbon Dioxide 25 mmol/L (22-29); Chloride 101 mmol/L (98-107); Chol HDL Ratio 5.02 mg/dL (0.0-4.40); Cholesterol 206 mg/dL (0-200); Estmated Average Glucose 192; Globulin 3.8 g/dL (1.3-4.6); Glomerular Filtration Rate 78.7 mL/min (90-130); Glucose 124 mg/dL (65-115); HDL Cholesterol 41 mg/dL (60-100); Hemoglobin A1C 8.3 % (4.0-6.0); LDL Cholesterol Calculated 110 mg/dL (50-129); LDL HDL Ratio 2.68 RATIO (0.00-3.22); Osmolality Calculated 292 mOsm/kg (285-295); Potassium 4.4 mmol/L (3.5-5.1); Sodium 139 mmol/L (136-145); Total Bilirubin 0.3 mg/dL (0.15-1.2); Total Protein 7.8 g/dL (6.6-8.7); Triglycerides 274 mg/dL (0-150)
[2024-07-03 10:39] LABS: Creatinine Urine, Random 88 mg/dL (28-217); Microalbum Creatinine Ratio Ur 23 mg/dL (0-20); Microalbumin Random Urine 2 ug/dL (0-20)
== END 2024-07-03 09:41 | disposition home or self-care (01) ==
PROVIDERS: PCP Nurse Practitioner Family; Visit Provider Internal Medicine
DX: L29.9 Pruritus, unspecified (principal); E11.9 Type 2 diabetes mellitus without complications; E78.1 Pure hyperglyceridemia; R74.01 Elevation of levels of liver transaminase levels; I10 Essential (primary) hypertension; Z87.09 Personal history of other diseases of the respiratory system; D64.9 Anemia, unspecified
CPT/HCPCS: 36415; 80053; 80061; 82044; 83036; 85025

== ENCOUNTER → 2024-07-05 07:52 | Outpatient (BNVA) | payer MEDICARE, MEDICAID, SELFPAY | PROVIDERS: PCP Nurse Practitioner Family; Visit Provider Internal Medicine | DX: E11.9 Type 2 diabetes mellitus without complications (principal); R74.01 Elevation of levels of liver transaminase levels; E78.1 Pure hyperglyceridemia; L29.9 Pruritus, unspecified; K75.81 Nonalcoholic steatohepatitis (NASH) | CPT/HCPCS: 99214 ==

== ENCOUNTER → 2024-08-16 15:01 | Outpatient (BNVA) | payer MEDICARE, MEDICAID, SELFPAY | PROVIDERS: PCP Nurse Practitioner Family; Visit Provider Nurse Practitioner Family | DX: L28.1 Prurigo nodularis (principal); L98.1 Factitial dermatitis; L21.8 Other seborrheic dermatitis; D22.62 Melanocytic nevi of left upper limb, including shoulder; L81.4 Other melanin hyperpigmentation | CPT/HCPCS: 99214 ==

== ENCOUNTER → 2024-08-24 12:01 | Outpatient (BNVA) | payer MEDICARE, MEDICAID, SELFPAY | PROVIDERS: PCP Nurse Practitioner Family; Visit Provider Internal Medicine | DX: E11.9 Type 2 diabetes mellitus without complications (principal); E78.1 Pure hyperglyceridemia | CPT/HCPCS: 99214 ==

== ENCOUNTER → 2024-11-23 11:27 | Outpatient (BNVA) | payer MEDICARE, MEDICAID, SELFPAY | PROVIDERS: PCP Nurse Practitioner Family; Visit Provider Internal Medicine | DX: E11.9 Type 2 diabetes mellitus without complications (principal); E78.1 Pure hyperglyceridemia; L29.9 Pruritus, unspecified; R74.01 Elevation of levels of liver transaminase levels; K75.81 Nonalcoholic steatohepatitis (NASH); Z79.4 Long term (current) use of insulin | CPT/HCPCS: 99214 ==

== ENCOUNTER → 2025-02-06 10:29 | Outpatient (BNVA) | payer MEDICARE, MEDICAID, SELFPAY | PROVIDERS: PCP Nurse Practitioner Family; Visit Provider Nurse Practitioner Family | DX: L28.1 Prurigo nodularis (principal); L20.89 Other atopic dermatitis; L98.1 Factitial dermatitis; L21.8 Other seborrheic dermatitis; L81.4 Other melanin hyperpigmentation; D22.62 Melanocytic nevi of left upper limb, including shoulder | CPT/HCPCS: 99214 ==